=== PATIENT | female | born 1940 | race Caucasian/White ===

== ENCOUNTER 2020-05-12 11:46 | Outpatient (REF) | payer MEDICARE, SELFPAY ==
[2020-05-12 13:37] LABS: Anion Gap 13 (12-20); Blood Urea Nitrogen 23 mg/dL (9-16); Calcium 8.8 mg/dL (8.4-10.2); Carbon Dioxide 34 mmol/L (22-29); Chloride 100 mmol/L (96-108); Estimated Glomerular Filt Rate 30; Glucose Random 100 mg/dL (60-115); Potassium 3.9 mmol/l (3.3-5.1); Sodium 143 mmol/L (135-145)
== END 2020-05-12 11:47 | disposition home or self-care (01) ==
LOC: HO.LDS 11:46
PROVIDERS: Visit Provider Physician Assistant
DX: I50.9 Heart failure, unspecified (principal)
CPT/HCPCS: 80048

== ENCOUNTER 2020-07-01 09:36 | Outpatient (REF) | payer MEDICARE, SELFPAY | END 2020-07-01 09:37 | disposition home or self-care (01) | LOC: HO.LAB 09:36 | PROVIDERS: Visit Provider Internal Medicine | DX: Z20.828 Contact with and (suspected) exposure to other viral communicable diseases (principal) | CPT/HCPCS: 36415; C9803; U0003 ==

== ENCOUNTER 2021-01-21 11:11 | Emergency (ER) | payer MEDICARE, SELFPAY ==
--- NOTE | ~2021-01-21 | XR_ITS ---
EXAMINATION: XR TIBIA AND FIBULA, RIGHT CLINICAL INFORMATION: Pain COMPARISON: None TECHNIQUE: AP and lateral views of the right tibia and fibula were obtained. FINDINGS: There is large amount of edema seen about the right lower extremity. No acute fracture or dislocation is evident. There appears to be some deformity from previous distal fibular fracture. 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 Calcaneal spurs sites insertion of plantar and Achilles tendons noted. XR/XR tibia fibula RT 2V IMPRESSION: No acute fracture or dislocation of the right tibia or fibula. Degenerative change of the right knee. Deformity from old healed distal right fibular fracture.
--- NOTE | ~2021-01-21 | US_ITS ---
EXAMINATION: US VENOUS ULTRASOUND WITH DOPPLER LOWER EXTREMITY, RIGHT CLINICAL INFORMATION: Swelling COMPARISON: July 17, 2017 TECHNIQUE: Ultrasound of the deep veins is performed from the hip to the calf with compression sonography and color and pulse Doppler assessment. Spectral analysis with color-flow imaging is performed. FINDINGS: There is normal venous compression and respiratory variation and augmented flow. The visualized common femoral vein, superficial femoral vein, profunda femoral vein, popliteal vein, and the trifurcation region shows no evidence of deep venous thrombosis. There is no significant popliteal fossa cyst. No popliteal artery aneurysm. If the patient's symptoms persist, followup ultrasound in 5 days 7 days might be of value to exclude proximal propagation from a non-visualized calf vein. US/US venous duplex LE RT IMPRESSION: No acute DVT demonstrated in the right lower extremity.
[2021-01-21 11:55] VITALS: BP 103/56; PULSE 70; RESP 18; TEMP 36.6; O2SAT 96; BMI 32.9
[2021-01-21 13:31] LABS: MANUAL DIFF FLAG NO
[2021-01-21 13:33] LABS: Basophils Percent Auto 0.8 % (0-2); Eosinophils Absolute Auto 0.5 X10*3/uL (0.0-0.4); Eosinophils Percent Auto 10.4 % (0-4); Hematocrit 38.7 % (37-47); Hemoglobin 12.1 g/dl (12.0-16.0); Imm Gran Abs Auto 0.01 X10*3/uL (0.00-0.03); Imm Gran Pct Auto 0.2 % (0.0-0.4); Lymphocytes Absolute Auto 1.5 X10*3/uL (1.2-4.9); Lymphocytes Percent Auto 29.7 % (20-40); Mean Corpuscular HGB Conc 31.3 g/dl (31.0-35.0); Mean Corpuscular Hemoglobin 29.4 pg (27.0-33.0); Mean Corpuscular Volume 93.9 fL (80-98); Mean Platelet Volume 10.4 fL (9.4-12.3); Monocytes Absolute Auto 0.5 X10*3/uL (0.1-1.2); Monocytes Percent Auto 9.8 % (2-11); Neutrophils Absolute Auto 2.5 X10*3/uL (2.0-8.3); Neutrophils Percent Auto 49.1 % (45-73); Platelet Count 221 X10*3/uL (160-400); Red Blood Count 4.12 X10*6/uL (4.20-5.50); Red Cell Distribution Width 13.7 % (11.0-16.0)
[2021-01-21 13:48] LABS: Lactic Acid 0.9 mmol/L (0.5-2.0)
[2021-01-21 14:01] LABS: Alanine Aminotransferase < 6 U/L (0-31); Albumin Level 3.7 g/dL (3.5-5.0); Alkaline Phosphatase 79 U/L (39-117); Anion Gap 14 (12-20); Aspartate Amino Transferase 17 U/L (5-31); Bilirubin Total 0.7 mg/dL (0.0-1.0); Blood Urea Nitrogen 21 mg/dL (9-16); Carbon Dioxide 30 mmol/L (22-29); Chloride 101 mmol/L (96-108); Estimated Glomerular Filt Rate 30; Glucose Random 100 mg/dL (60-115); Potassium 3.8 mmol/L (3.3-5.1); Sodium 141 mmol/L (135-145)
--- NOTE | 2021-01-21 15:03 | ED.SKABFB ---
HPI - Skin/Abscess/Foreign Bdy General Chief complaint: Skin/Abscess/Foreign Body Stated complaint: leg wound Time Seen by Provider: 01/21/21 12:16 Source: patient Mode of arrival: ambulatory Limitations: no limitations History of Present Illness HPI narrative: Pleasant 80-year-old female speaks some Setswana son who is a caregiver speaks full in late she has past medical history that is significant for hypertension, asthma, atrial fibrillation chronically rate control/anticoagulant on Coumadin, history of palpitations, arthritis, heart failure, hypothyroidism who presents today with complaint of right lower extremity swelling with rash around the distal ferreira area. According to the son she has always had vascular issues she has had some rash to the chin in fact in both lower extremities the right 1 has become worse with slight oozing and foul smell. Denies any fever or chills. MD complaint: rash Onset (ago): day(s) Tetanus up to date: yes Location: RLE Severity: moderate Pain Consistency: constant Relieving factors: none Exacerbating factors: none Context: none Associated symptoms: denies other symptoms Treatments prior to arrival: none Related Data Previous Rx's Medication Instructions Recorded doxycycline monohydrate 100 mg 100 mg PO BID 10 Days #20 cap 01/21/21 capsule mupirocin 2 % topical ointment 1 appl TOPICAL BID #22 g 01/21/21 Allergies Allergy/AdvReac Type Severity Reaction Status Date / Time lisinopril [LISINOPRIL] Allergy Unknown UNKNOWN Unverified 03/12/20 15:21 simvastatin [SIMVASTATIN] Allergy Unknown UNKNOWN Unverified 03/12/20 15:21 Review of Systems Review of Systems: Constitutional: No Weight loss, No Fever, No Chills, No Night Sweats, No Fatigue, No Malaise ENT/Mouth: No Hearing loss, No Ear Pain, No Nasal Congestion, No Sinus Pain, No Hoarseness, No sore throat, No Rhinorrhea, No Swallowing Difficulty Eyes: No Eye Pain, No Swelling, No Redness, No Foreign Body, No Discharge, No Vision Changes Cardiovascular: No Chest Pain, No SOB, No Dyspnea on Exertion, No Orthopnea, No Edema, No Palpitations Respiratory: No Cough, No Sputum, No Wheezing, No Smoke Exposure, No Dyspnea Gastrointestinal: No Nausea, No Vomiting, No Diarrhea, No Constipation, No abdominal Pain, No Hematochezia, No Melena Genitourinary: no irregular bleeding, No Dysuria, No Urinary Frequency, No Hematuria, No Urinary Incontinence, No Urgency, No Flank Pain, No Urinary Flow Changes, No Hesitancy Musculoskeletal: No joint pain, No Myalgias, No Joint Swelling Skin: No Skin Lesions, No rash, as noted per HPI Neuro: No Weakness, No Numbness, No Paresthesias, No Loss of Consciousness, No Dizziness, No Headache Psych: No Social Issues Heme/Lymph: No Bruising, No Bleeding,No Lymphadenopathy Endocrine: No Polyuria, No Polydipsia, No Temperature Intolerance [facility] Past Medical History Medical History (Updated 01/21/21 @ 15:57 by Antonino Shannon NP) Afib Asthma CHF (congestive heart failure) HTN (hypertension) Hypothyroid Surgical History (Updated 01/21/21 @ 11:58 by Forrest Cuba) S/P hip replacement Social History Social History Alcohol intake: never Smoked in Last 30 Days: No Use of substances other than those prescribed or required for medical reasons: No Advance Directives: No Advance Directives Information Provided: No Physical Exam Vital Signs: Vital Signs: Last Vital Signs Temp 97.8 F 01/21/21 11:55 Pulse 70 01/21/21 11:55 Resp 18 01/21/21 11:55 BP 103/56 L 01/21/21 11:55 Pulse Ox 96 01/21/21 11:55 Body Mass Index 32.9 Const: General: cooperative and healthy appearing; No acute distress or intoxicated appearing Nutritional Appearance: average body habitus Orientation/consciousness: patient oriented x3 HENMT: Head: Yes normal to inspection Ears: hearing grossly normal bilaterally Eyes: General: appearance normal, both eyes and all related structures Visual Ernandez: normal visual ernandez by confrontation Neck: Neck: Yes normal visual inspection, No positive Brudzinski's sign, No positive Kernig's sign and No tender Thyroid: Thyroid normal Chest: Chest palpation & inspection: normal inspection of the chest Resp: Effort & Inspection: normal respiratory effort Cardio: Jugular venous distension: no JVD GI: Inspection: Yes normal to inspection Palpation (GI): Soft to palpation Percussion: Yes normal to percussion Auscultation: normal bowel sounds : General: Yes no CVA tenderness Back/Spine/Pelvis: Back: no CVA tenderness Skin: Other: General skin exam: no rashes or lesions noted Neuro: General: patient oriented x3 Extrem: General: Yes normal to inspection Course Course Course Narrative: Labs overall reassuring, very minimal erythematous changes around the wound margin, ultrasound negative for acute DVT. X-ray without evidence of osteo. Will start on p.o. antibiotics as well as topical, dressing and follow-up with wound care/PCP. Comfortable plan. Stable for discharge. MDM - Skin/Abscess/Foreign Bdy Differential Diagnosis Differential diagnosis: Likely abscess of skin or subcutaneous tissue, viral exanthem, urticaria, allergic reaction to drug, cellulitis, impetigo and contact dermatitis Medical Records Attestation: I reviewed the patient's medical records. Lab Data Attestation: I reviewed the patient's lab results. Result diagrams: 01/21/21 13:24 01/21/21 13:24 Labs: Lab Results 01/21/21 01/21/21 01/21/21 Range/Units 13:24 13:24 13:24 WBC 5.0 (4.8-10.8) X10*3/uL RBC 4.12 L (4.20-5.50) X10*6/uL Hgb 12.1 (12.0-16.0) g/dl Hct 38.7 (37-47) % MCV 93.9 (80-98) fL MCH 29.4 (27.0-33.0) pg MCHC 31.3 (31.0-35.0) g/dl RDW 13.7 (11.0-16.0) % Plt Count 221 (160-400) X10*3/uL MPV 10.4 (9.4-12.3) fL Immature Gran % (Auto) 0.2 (0.0-0.4) % Neut % (Auto) 49.1 (45-73) % Lymph % (Auto) 29.7 (20-40) % Preble % (Auto) 9.8 (2-11) % Eos % (Auto) 10.4 H (0-4) % Baso % (Auto) 0.8 (0-2) % Lymph # (Auto) 1.5 (1.2-4.9) X10*3/uL Preble # (Auto) 0.5 (0.1-1.2) X10*3/uL Eos # (Auto) 0.5 H (0.0-0.4) X10*3/uL Baso # (Auto) 0.0 (0.0-0.2) X10*3/uL Abs Immat Gran (auto) 0.01 (0.00-0.03) X10*3/uL Absolute Neuts (auto) 2.5 (2.0-8.3) X10*3/uL Absolute Nucleated RBC 0.000 (0.0-0.012) X10*3/uL Nucleated RBC % (auto) 0.0 (0.0-0.2) /100WBC Sodium 141 (135-145) mmol/L Potassium 3.8 (3.3-5.1) mmol/L Chloride 101 (96-108) mmol/L Carbon Dioxide 30 H (22-29) mmol/L Anion Gap 14 (12-20) BUN 21 H (9-16) mg/dL Creatinine 1.65 H (0.5-1.4) mg/dL Estim Creat Clear Calc 28.0 Estimated GFR 30 Random Glucose 100 (60-115) mg/dL Lactic Acid 0.9 (0.5-2.0) mmol/L Calcium 9.0 (8.4-10.2) mg/dL Total Bilirubin 0.7 (0.0-1.0) mg/dL AST 17 (5-31) U/L ALT < 6 (0-31) U/L Alkaline Phosphatase 79 (39-117) U/L Total Protein 8.0 (6.5-8.0) g/dL Albumin 3.7 (3.5-5.0) g/dL Imaging Data Right lower extremity ultrasound: My impression: Adriana Roldan??80??F??1940 ? Allergy/Adv: lisinopril, simvastatin Close ER Physician Documentation 01/21/21 15:03 Tibia/Fibula X-Ray 01/21/21 14:46 Venous Duplex 01/21/21 12:46 Launch?Image [address] [address] Ultrasound Report Signed Patient: Adriana Roldan MR#: [id number] : 1940 Acct:[id number] Age/Sex: 80 / F ADM Date: 01/21/21 Loc: .ED Attending Dr: Ordering Physician: Antonino Shannon NP Date of Service: 01/21/21 Procedure(s): US venous duplex LE RT Accession Number(s): [id number] cc: Antonino Shannon HEAD START COORDINATOR~ EXAMINATION:? US VENOUS ULTRASOUND WITH DOPPLER LOWER EXTREMITY, RIGHT CLINICAL INFORMATION:? Swelling COMPARISON:? July 17, 2017 TECHNIQUE: Ultrasound of the deep veins is performed from the hip to the calf with compression sonography and color and pulse Doppler assessment. Spectral analysis with color-flow imaging is performed. FINDINGS: There is normal venous compression and respiratory variation and augmented flow. The visualized common femoral vein, superficial femoral vein, profunda femoral vein, popliteal vein, and the trifurcation region shows no evidence of deep venous thrombosis. ? There is no significant popliteal fossa cyst. No popliteal artery aneurysm. If the patient's symptoms persist, followup ultrasound in 5 days 7 days might be of value to exclude proximal propagation from a non-visualized calf vein. US/US venous duplex LE RT IMPRESSION: No acute DVT demonstrated in the right lower extremity. Dictated By: CAITLIN PURCELL MD Signed By: <Electronically signed by CAITLIN PURCELL MD in OV> 01/21/21 1444 DD/ 1246 TD/TT:? Adjunct Physical Education Instructor: [employer] Radiologist's impression: [place] [id number] Ultrasound Report Signed Patient: Adriana Roldan MR#: [id number] : 1940 Acct:[id number] Age/Sex: 80 / F ADM Date: 01/21/21 Loc: .ED Attending Dr: Ordering Physician: Antonino Shannon NP Date of Service: 01/21/21 Procedure(s): US venous duplex LE RT Accession Number(s): [id number] cc: Antonino Shannon HEAD START COORDINATOR~ EXAMINATION:? US VENOUS ULTRASOUND WITH DOPPLER LOWER EXTREMITY, RIGHT CLINICAL INFORMATION:? Swelling COMPARISON:? July 17, 2017 TECHNIQUE: Ultrasound of the deep veins is performed from the hip to the calf with compression sonography and color and pulse Doppler assessment. Spectral analysis with color-flow imaging is performed. FINDINGS: There is normal venous compression and respiratory variation and augmented flow. The visualized common femoral vein, superficial femoral vein, profunda femoral vein, popliteal vein, and the trifurcation region shows no evidence of deep venous thrombosis. ? There is no significant popliteal fossa cyst. No popliteal artery aneurysm. If the patient's symptoms persist, followup ultrasound in 5 days 7 days might be of value to exclude proximal propagation from a non-visualized calf vein. US/US venous duplex LE RT IMPRESSION: No acute DVT demonstrated in the right lower extremity. Dictated By: CAITLIN PURCELL MD Signed By: <Electronically signed by CAITLIN PURCELL MD in OV> 01/21/21 1444 DD/ 1246 TD/TT:? Adjunct Physical Education Instructor: SK Tib fib x-ray: Radiologist's impression: Adriana Roldan??80??F??1940 ? Allergy/Adv: lisinopril, simvastatin Close ER Physician Documentation 01/21/21 15:03 Tibia/Fibula X-Ray 01/21/21 14:46 Venous Duplex 01/21/21 12:46 Launch?Image [address] [address] XRay Report Signed Patient: Adriana Roldan MR#: [id number] : 1940 Acct:[id number] Age/Sex: 80 / F ADM Date: 01/21/21 Loc: .ED Attending Dr: Ordering Physician: Antonino Shannon NP Date of Service: 01/21/21 Procedure(s): XR tibia fibula RT 2V Accession Number(s): [id number] cc: Antonino Shannon NP~ EXAMINATION: XR TIBIA AND FIBULA, RIGHT CLINICAL INFORMATION: Pain? COMPARISON: None? TECHNIQUE: AP and lateral views of the right tibia and fibula were obtained. FINDINGS: There is large amount of edema seen about the right lower extremity. No acute fracture or dislocation is evident. There appears to be some deformity from previous distal fibular fracture. 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 Calcaneal spurs sites insertion of plantar and Achilles tendons noted.? XR/XR tibia fibula RT 2V IMPRESSION: No acute fracture or dislocation of the right tibia or fibula. ? Degenerative change of the right knee. ? Deformity from old healed distal right fibular fracture. ? Dictated By: CAITLIN PURCELL MD Signed By: <Electronically signed by CAITLIN PURCELL MD in OV> 01/21/21 1507 DD/ 1446 TD/TT:? Adjunct Physical Education Instructor: SK Discharge Plan Discharge Clinical Impression: Cellulitis, Acute stasis dermatitis Patient Disposition: Home, Self-Care Instructions: Cellulitis (ED), Stasis Dermatitis (ED) Additional Instructions: Rest, elevate Compress with Parminder wrap Take her medication as prescribed Follow-up with primary care Follow-up with wound care as instructed Return if any concerns or worsening symptoms Thank you Prescriptions: New mupirocin 2 % ointment 1 appl topical BID Qty: 22 RF: 1 doxycycline monohydrate 100 mg capsule 100 mg PO BID 10 Days Qty: 20 RF: 0 Referrals: Janice Cortes MD [Primary Care Provider] - 2 days ED Physician,Generic [Physician] - 2 days [facility] [address] [place] [phone]) Interventions: ED Discharge Assessment Last Done: 01/21/21 16:10 Discharge Date/Time: 01/21/21 16:19
== END 2021-01-21 16:19 | disposition home or self-care (01) ==
PROVIDERS: Nurse Practitioner Primary Care; Emergency Provider Emergency Medicine; PCP Internal Medicine
DX: L03.115 Cellulitis of right lower limb (principal); R60.0 Localized edema; I87.2 Venous insufficiency (chronic) (peripheral); M79.604 Pain in right leg; Z79.899 Other long term (current) drug therapy
CPT/HCPCS: 36415; 73590; 80053; 83605; 85025; 87040; 93971; 99284

== ENCOUNTER 2021-02-04 10:21 | Emergency (ER) | payer MEDICARE, SELFPAY ==
[2021-02-04 11:10] VITALS: BP 116/53; PULSE 81; RESP 16; TEMP 36.5; O2SAT 97; BMI 32.1
--- NOTE | 2021-02-04 11:41 | ED.WOUNDLAC ---
HPI - Wound/Laceration General Chief Complaint: Wound/Laceration Stated Complaint: wound check Time Seen by Provider: 02/04/21 11:22 Source: patient and family Mode of arrival: wheelchair Limitations: no limitations History of Present Illness HPI narrative: 80-year-old female with a past medical history of hypertension, asthma, AFib chronically rate controlled on Coumadin, arthritis, congestive heart failure, hypothyroidism here with complaints of right lower extremity swelling with drainage of foul odor. Of note patient was seen here January 21 and diagnosed with cellulitis of the right lower extremity. She was started on doxycycline. She was instructed to follow-up with wound care. Patient tells me she completed her course of antibiotics. She has an appointment next Monday with wound care center. She is having worsening rash, increasing drainage and foul odor and more pain in the site. Also associated with some chills. No fever. No cough or shortness of breath. On January 21 patient had an ultrasound which is negative for DVT. She also had x-ray which showed no acute finding Related Data Home Medications Medication Instructions Recorded Confirmed albuterol sulfate 2.5 mg INHALATION QID PRN 02/04/21 02/04/21 albuterol sulfate 90 mcg/actuation 1 puff INHALATION Q4H PRN 02/04/21 02/04/21 aerosol inhaler calcium carbonate 600 mg (1,500 1 tab PO BID 02/04/21 02/04/21 mg)-vitamin D3 400 unit tablet cholecalciferol (vitamin D3) 50 50 mcg PO DAILY 02/04/21 02/04/21 mcg (2,000 unit) capsule (Vitamin D3) diltiazem HCl 120 mg capsule,24 120 mg PO BID 02/04/21 02/04/21 hr,extended release ferrous sulfate 325 mg (65 mg 325 mg PO DAILY 02/04/21 02/04/21 iron) tablet (FeroSul) fluticasone 500 mcg-salmeterol 50 1 puff INHALATION BID 02/04/21 02/04/21 mcg/dose blistr powdr for inhalation (Wixela Inhub) furosemide 80 mg tablet 80 mg PO DAILY 02/04/21 02/04/21 levothyroxine 50 mcg tablet 50 mcg PO DAILY 02/04/21 02/04/21 loratadine 10 mg tablet 10 mg PO DAILY 02/04/21 02/04/21 midodrine 5 mg tablet 5 mg PO TID 02/04/21 02/04/21 montelukast 10 mg tablet 10 mg PO DAILY 02/04/21 02/04/21 omalizumab 150 mg subcutaneous mg SUBCUT Q2W 02/04/21 solution (Xolair) omeprazole 20 mg capsule,delayed 20 mg PO DAILY 02/04/21 02/04/21 release potassium chloride 10 mEq 10 meq PO BID 02/04/21 02/04/21 tablet,extended release warfarin 2.5 mg tablet 5 mg PO DAILY 02/04/21 02/04/21 Previous Rx's Medication Instructions Recorded mupirocin 2 % topical ointment 1 appl TOPICAL BID #22 g 01/21/21 clotrimazole 1 % topical cream 1 appl TOPICAL DAILY #30 g 02/04/21 doxycycline monohydrate 100 mg 100 mg PO BID #20 cap 02/04/21 capsule mupirocin 2 % topical ointment 1 appl TOPICAL DAILY #15 g 02/04/21 Allergies Allergy/AdvReac Type Severity Reaction Status Date / Time lisinopril [LISINOPRIL] Allergy Unknown UNKNOWN Verified 02/04/21 11:18 simvastatin [SIMVASTATIN] Allergy Unknown UNKNOWN Verified 02/04/21 11:18 Review of Systems Review of Systems: Yes all other systems are reviewed and are negative Constitutional: Constitutional: Reports no additional constitutional complaints, Denies body ache(s), Denies chills, Denies fever(s), Denies headache(s) and Denies weakness Eyes: Eyes: Reports no additional eye complaints and Denies change in vision ENT: Reports system reviewed and no additional complaints, except as documented, Denies dizziness, Denies headache(s), Denies nasal congestion, Denies nasal discharge and Denies neck pain Cardiovascular: Cardiovascular: Reports no additional cardiovascular complaints, Denies chest pain, Denies leg edema and Denies dyspnea Respiratory: Respiratory: Reports no additional respiratory complaints, Denies cough and Denies dyspnea Gastrointestinal: Gastrointestinal: Reports no additional gastrointestinal complaints, Denies abdominal pain, Denies diarrhea, Denies nausea and Denies vomiting Genitourinary: Genitourinary: Reports no additional female genitourinary complaints and Denies urinary incontinence Musculoskeletal: Musculoskeletal: Reports no additional musculoskeletal complaints, Denies back pain, Denies arthralgias, Denies joint swelling, Denies neck pain, Denies numbness and Denies tingling Integumentary/Breasts: Skin/Breast: Reports system reviewed and no additional complaints, except as docu, Reports swelling, Reports erythema, Reports rash and Reports wounds Neurologic: Reports system reviewed and no additional complaints, except as documented, Denies Abnormal speech present, Denies dizziness, Denies headache(s), Denies numbness, Denies tingling and Denies weakness [facility] Past Medical History Attestation statement: The following information was validated with the patient. Source: old records reviewed and nursing notes reviewed Medical History Afib Asthma CHF (congestive heart failure) HTN (hypertension) Hypothyroid Surgical History S/P hip replacement Social History Social History Alcohol intake: never Patient Tobacco Use Status: Never used Tobacco Physical Exam Vital Signs: Vital Signs: Last Vital Signs Temp 97.9 F 02/04/21 12:05 Pulse 84 02/04/21 12:05 Resp 16 02/04/21 12:05 BP 106/53 L 02/04/21 12:05 Pulse Ox 97 02/04/21 12:05 Body Mass Index 32.1 Const: General: cooperative, healthy appearing, comfortable and no acute distress Orientation/consciousness: patient oriented x3 Limitations: no limitations HENMT: Head: Yes normal to inspection Ears: hearing grossly normal bilaterally General nose exam: Normal external nose present Face and sinus: Yes normal facial exam Mouth: Normal oral and palatal mucosa present Throat: Yes posterior oropharynx normal Eyes: General: appearance normal, both eyes and all related structures Pupils: Equal, round and reactive pupils present Neck: Neck: Yes normal visual inspection Chest: Chest palpation & inspection: normal inspection of the chest Resp: Effort & Inspection: normal respiratory effort Auscultation: clear to auscultation bilaterally Cardio: Rate: regular rate Rhythm: regular rhythm Peripheral pulses: Peripheral pulses 2+ throughout GI: Inspection: Yes normal to inspection Palpation (GI): Soft to palpation and nontender Auscultation: normal bowel sounds Back/Spine/Pelvis: Thoracic/Lumbar Spine: thoracic and lumbar spine normal to inspection Skin: General skin exam: no rashes or lesions noted Neuro: General: patient oriented x3, no focal motor deficits and normal sensation to monofilament Cranial nerves: Yes Equal, round and reactive pupils present Cognition (Neuro): normal cognition Speech: No Abnormal speech present Gait exam (Neuro): Normal gait present Motor exam (neuro): 5/5 motor strength present throughout Extrem: Other: Warmth, swelling, tenderness extending above the wound, drainage which is serous, foul odor. Palpable distal pulses noted. Patient able to flex and extend the foot with no difficulty. General: Yes normal to inspection Course Course Course Narrative: 80-year-old female here with complaints of right lower extremity swelling, redness, pain, increased drainage and odor despite completing a course of doxycycline several days ago. Has upcoming appointment with wound care center on Monday. Exam is consistent with a right lower extremity cellulitis. Patient also has what looks like chronic venous stasis. Will check labs. At this time infection is suspected. Antibiotics ordered. Patient will likely need admission 1330-labs are unremarkable. The patient is afebrile. However, clinically the cellulitis does appear worsened in the right lower extremity. Will discuss with medicine if admission is warranted. 1340-discussed with Dr. Nieto. Does not feel like admission is warranted at this time. Recommended re-starting antibiotics, treating for presumed tinea in addition. Therefore, will restart patient on oral antibiotics. Recommended a one-to-one mixture of clotrimazole and mupirocin topical to the affected area with a nonstick dressing and a wrap daily. Site should also be cleansed daily with normal saline. Patient is cared for at home by her sons. Will have home care nurse come in to assist with dressing changes. Case management is aware. 1430-reviewed worrisome signs and symptoms of when to return to the emergency department with family. Comfortable discharge home. MDM - Wound/Laceration MDM Narrative Medical decision making narrative: cellulitis Medical Records Attestation: I reviewed the patient's medical records. Lab Data Attestation: I reviewed the patient's lab results. Result diagrams: 02/04/21 11:57 02/04/21 11:57 Labs: Lab Results 02/04/21 02/04/21 02/04/21 Range/Units 11:57 11:57 11:57 WBC 5.3 (4.8-10.8) X10*3/uL RBC 3.99 L (4.20-5.50) X10*6/uL Hgb 11.6 L (12.0-16.0) g/dl Hct 37.4 (37-47) % MCV 93.7 (80-98) fL MCH 29.1 (27.0-33.0) pg MCHC 31.0 (31.0-35.0) g/dl RDW 13.1 (11.0-16.0) % Plt Count 228 (160-400) X10*3/uL MPV 10.5 (9.4-12.3) fL Immature Gran % (Auto) 0.2 (0.0-0.4) % Neut % (Auto) 59.3 (45-73) % Lymph % (Auto) 22.4 (20-40) % [place] % (Auto) 10.7 (2-11) % Eos % (Auto) 6.6 H (0-4) % Baso % (Auto) 0.8 (0-2) % Lymph # (Auto) 1.2 (1.2-4.9) X10*3/uL [place] # (Auto) 0.6 (0.1-1.2) X10*3/uL Eos # (Auto) 0.4 (0.0-0.4) X10*3/uL Baso # (Auto) 0.0 (0.0-0.2) X10*3/uL Abs Immat Gran (auto) 0.01 (0.00-0.03) X10*3/uL Absolute Neuts (auto) 3.2 (2.0-8.3) X10*3/uL Absolute Nucleated RBC 0.000 (0.0-0.012) X10*3/uL Nucleated RBC % (auto) 0.0 (0.0-0.2) /100WBC PT 44.5 H (9.9-13.0) SEC INR 3.8 H (0.9-1.1) Sodium 138 (135-145) mmol/L Potassium 3.3 (3.3-5.1) mmol/L Chloride 101 (96-108) mmol/L Carbon Dioxide 30 H (22-29) mmol/L Anion Gap 10 L (12-20) BUN 25 H (9-16) mg/dL Creatinine 1.75 H (0.5-1.4) mg/dL Estim Creat Clear Calc 26.0 Estimated GFR 28 Random Glucose 111 (60-115) mg/dL Lactic Acid (0.5-2.0) mmol/L Calcium 8.6 (8.4-10.2) mg/dL Magnesium 1.9 (1.6-2.6) mg/dL Total Bilirubin 0.6 (0.0-1.0) mg/dL Direct Bilirubin 0.3 (0.0-0.5) mg/dL AST 14 (5-31) U/L ALT 7 (0-31) U/L Alkaline Phosphatase 80 (39-117) U/L B-Natriuretic Peptide (<100) pg/mL Total Protein 7.4 (6.5-8.0) g/dL Albumin 3.3 L (3.5-5.0) g/dL COVID-19 (DAMARIS) (Negative) COVID-19 Clin Com 02/04/21 02/04/21 02/04/21 Range/Units 11:57 11:57 13:10 WBC (4.8-10.8) X10*3/uL RBC (4.20-5.50) X10*6/uL Hgb (12.0-16.0) g/dl Hct (37-47) % MCV (80-98) fL MCH (27.0-33.0) pg MCHC (31.0-35.0) g/dl RDW (11.0-16.0) % Plt Count (160-400) X10*3/uL MPV (9.4-12.3) fL Immature Gran % (Auto) (0.0-0.4) % Neut % (Auto) (45-73) % Lymph % (Auto) (20-40) % [place] % (Auto) (2-11) % Eos % (Auto) (0-4) % Baso % (Auto) (0-2) % Lymph # (Auto) (1.2-4.9) X10*3/uL [place] # (Auto) (0.1-1.2) X10*3/uL Eos # (Auto) (0.0-0.4) X10*3/uL Baso # (Auto) (0.0-0.2) X10*3/uL Abs Immat Gran (auto) (0.00-0.03) X10*3/uL Absolute Neuts (auto) (2.0-8.3) X10*3/uL Absolute Nucleated RBC (0.0-0.012) X10*3/uL Nucleated RBC % (auto) (0.0-0.2) /100WBC PT (9.9-13.0) SEC INR (0.9-1.1) Sodium (135-145) mmol/L Potassium (3.3-5.1) mmol/L Chloride (96-108) mmol/L Carbon Dioxide (22-29) mmol/L Anion Gap (12-20) BUN (9-16) mg/dL Creatinine (0.5-1.4) mg/dL Estim Creat Clear Calc Estimated GFR Random Glucose (60-115) mg/dL Lactic Acid 1.4 (0.5-2.0) mmol/L Calcium (8.4-10.2) mg/dL Magnesium (1.6-2.6) mg/dL Total Bilirubin (0.0-1.0) mg/dL Direct Bilirubin (0.0-0.5) mg/dL AST (5-31) U/L ALT (0-31) U/L Alkaline Phosphatase (39-117) U/L B-Natriuretic Peptide 104 H (<100) pg/mL Total Protein (6.5-8.0) g/dL Albumin (3.5-5.0) g/dL COVID-19 ([facility]AMARIS) Negative (Negative) COVID-19 Clin Com See Note Discharge Plan Discharge Clinical Impression: Cellulitis, Chronic venous stasis, Tinea pedis Patient Disposition: Home, Self-Care Instructions: Athlete's Foot (ED), Cellulitis (ED), Venous Insufficiency (DC) Additional Instructions: You were seen by the medicine team and an admission was not warranted We are re-starting antibiotics. Take these with food. A home care nurse will be coming to the home to help with your dressing changes. Elevation of the legs, [place] wrap for comfort Change dressings daily (1:1 clotrimazole/mupirocin mixture) with non stick dressings and wraps. Keep appointment with wound care Monday morning. Prescriptions: New doxycycline monohydrate 100 mg capsule 100 mg PO BID Qty: 20 RF: 0 mupirocin 2 % ointment 1 appl topical DAILY Qty: 15 RF: 0 clotrimazole 1 % cream 1 appl topical DAILY Qty: 30 RF: 0 No Action mupirocin 2 % ointment 1 appl topical BID Qty: 22 RF: 1 albuterol sulfate 2.5 mg /3 mL (0.083 %) solution for nebulization 2.5 mg inhalation QID PRN (Reason: Wheezing) RF: 0 midodrine 5 mg tablet 5 mg PO TID RF: 0 warfarin 2.5 mg tablet 5 mg PO DAILY RF: 0 potassium chloride 10 mEq tablet extended release 10 meq PO BID RF: 0 furosemide 80 mg tablet 80 mg PO DAILY RF: 0 diltiazem HCl 120 mg capsule,extended release 24 hr 120 mg PO BID RF: 0 levothyroxine 50 mcg tablet 50 mcg PO DAILY RF: 0 ferrous sulfate [FeroSul] 325 mg (65 mg iron) tablet 325 mg PO DAILY RF: 0 fluticasone propion-salmeterol [Wixela Inhub] 500-50 mcg/dose blister with device 1 puff inhalation BID RF: 0 omeprazole 20 mg capsule,delayed release(DR/EC) 20 mg PO DAILY RF: 0 montelukast 10 mg tablet 10 mg PO DAILY RF: 0 loratadine 10 mg tablet 10 mg PO DAILY RF: 0 Xolair 150 mg recon soln subcut Q2W RF: 0 calcium carbonate-vitamin D3 600 mg(1,500mg) -400 unit tablet 1 tab PO BID RF: 0 cholecalciferol (vitamin D3) [Vitamin D3] 50 mcg (2,000 unit) capsule 50 mcg PO DAILY RF: 0 albuterol sulfate 90 mcg/actuation HFA aerosol inhaler 1 puff inhalation Q4H PRN (Reason: Wheezing) RF: 0 Referrals: Laxmi Gutierrez MD [Primary Care Provider] - 2 days (as needed) Interventions: ED Discharge Assessment Last Done: 02/04/21 14:13 Discharge Date/Time: 02/04/21 14:13 Print Language: Albanian
[2021-02-04 12:05] VITALS: BP 106/53; PULSE 84; RESP 16; TEMP 36.6; O2SAT 97
[2021-02-04 12:17] LABS: MANUAL DIFF FLAG NO
[2021-02-04 12:18] LABS: Basophils Percent Auto 0.8 % (0-2); Eosinophils Absolute Auto 0.4 X10*3/uL (0.0-0.4); Eosinophils Percent Auto 6.6 % (0-4); Hematocrit 37.4 % (37-47); Hemoglobin 11.6 g/dl (12.0-16.0); Imm Gran Abs Auto 0.01 X10*3/uL (0.00-0.03); Imm Gran Pct Auto 0.2 % (0.0-0.4); Lymphocytes Absolute Auto 1.2 X10*3/uL (1.2-4.9); Lymphocytes Percent Auto 22.4 % (20-40); Mean Corpuscular Hemoglobin 29.1 pg (27.0-33.0); Mean Corpuscular Volume 93.7 fL (80-98); Mean Platelet Volume 10.5 fL (9.4-12.3); Monocytes Absolute Auto 0.6 X10*3/uL (0.1-1.2); Monocytes Percent Auto 10.7 % (2-11); Neutrophils Absolute Auto 3.2 X10*3/uL (2.0-8.3); Neutrophils Percent Auto 59.3 % (45-73); Platelet Count 228 X10*3/uL (160-400); Red Blood Count 3.99 X10*6/uL (4.20-5.50); Red Cell Distribution Width 13.1 % (11.0-16.0); White Blood Count 5.3 X10*3/uL (4.8-10.8)
--- NOTE | 2021-02-04 12:18 | PHA.MEDREC ---
Pharmacy Consult ? Medication Reconciliation Pharmacy has completed the medication reconciliation. Patient and her son aren't positive about most of her medication because they are in the [facility] from [facility]. I verified medication in the bubbles with [facility]. Patient was able to report she takes 5mg of Warfarin every day (2.5mg 2 tablets). She was unsure about which inhaler she should be using as it was recently changed. She states she is due for Xolair tomorrow. Called Dr. Salgado's office to verify the inhaler and Adviar was the one most recently refilled. Patient did not take any medication this AM. Laura Ibrahim, PharmD
[2021-02-04 12:23] LABS: INTERNATIONAL NORM RATIO 3.8 (0.9-1.1); Prothrombin Time 44.5 SEC (9.9-13.0)
[2021-02-04] MEDS: Morphine Sulfate 2 MG/ML CARTRIDGE IVPUSH (12:31)
[2021-02-04] MEDS: Piperacillin Sodium/Tazobactam 3.375 GM in 0.9 % Sodium Chloride 50 ML IV (12:32)
[2021-02-04 12:34] LABS: Lactic Acid 1.4 mmol/L (0.5-2.0)
[2021-02-04 12:41] LABS: Alanine Aminotransferase 7 U/L (0-31); Albumin Level 3.3 g/dL (3.5-5.0); Alkaline Phosphatase 80 U/L (39-117); Anion Gap 10 (12-20); Aspartate Amino Transferase 14 U/L (5-31); Bilirubin Direct 0.3 mg/dL (0.0-0.5); Bilirubin Total 0.6 mg/dL (0.0-1.0); Blood Urea Nitrogen 25 mg/dL (9-16); Calcium 8.6 mg/dL (8.4-10.2); Carbon Dioxide 30 mmol/L (22-29); Chloride 101 mmol/L (96-108); Estimated Glomerular Filt Rate 28; Glucose Random 111 mg/dL (60-115); Magnesium 1.9 mg/dL (1.6-2.6); Potassium 3.3 mmol/L (3.3-5.1); Sodium 138 mmol/L (135-145); Total Protein 7.4 g/dL (6.5-8.0)
[2021-02-04 12:46] LABS: B Type Natriuretic Peptide 104 pg/mL (<100)
[2021-02-04 13:39] LABS: COVID-19 Test Negative (Negative); IDNOW Serial# 08D9AD1C
--- NOTE | 2021-02-04 16:13 | MHC.CM.ED ---
Received case management consult from Alisha FOLEY. Patient has an appointment for wound care clinic on Monday. Alisha is requesting home services for help with wound assessment until then. Patient is active with [facility]. Per Angelica at [facility], [place] [facility] can be referred out. Referral made to [facility]. They are unable to see patient before Monday. Referral made to [facility] and [facility]. Neither agency can accept patient.Referral broadcasted in [employer] to see who can accept patient. Continue to monitor for d/c needs.
== END 2021-02-04 14:13 | disposition home or self-care (01) ==
PROVIDERS: Nurse Practitioner Family; Emergency Provider Emergency Medicine; PCP Internal Medicine
DX: L03.115 Cellulitis of right lower limb (principal); B35.3 Tinea pedis; I87.8 Other specified disorders of veins; M79.661 Pain in right lower leg; Z20.822 Contact with and (suspected) exposure to COVID-19; R68.83 Chills (without fever); I10 Essential (primary) hypertension; I48.20 Chronic atrial fibrillation, unspecified; Z79.01 Long term (current) use of anticoagulants
CPT/HCPCS: 36415; 80048; 80076; 83605; 83735; 83880; 85025; 85610; 87040; 87077; 87147; 87186; 87205; 87635; 96365; 96375; 99284; J2270; J2543

== ENCOUNTER 2021-02-05 14:29 | Inpatient (IN) | payer MEDICARE, SELFPAY ==
--- NOTE | 2021-02-05 | ECG_ITS ---
Test Reason : EDMA Blood Pressure : / mmHG Vent. Rate : 081 BPM Atrial Rate : 069 BPM P-R Int : 000 ms QRS Dur : 098 ms QT Int : 386 ms P-R-T Axes : 000 -06 -15 degrees QTc Int : 448 ms Atrial fibrillation Abnormal ECG When compared with ECG of 09-AUG-2019 13:53, No significant change was found Referred By: Rosmery Nieto Electronically Signed By:ELADIO FIGUEROA
--- NOTE | ~2021-02-05 | CT_ITS ---
EXAMINATION: CT ABDOMEN AND PELVIS WITHOUT CONTRAST CLINICAL INFORMATION: Gram-negative bacteremia. COMPARISON: Renal ultrasound 01/30/2017, CT pelvis 06/29/2015, CT abdomen pelvis 08/25/2011 TECHNIQUE: Multidetector volumetric imaging was performed from the superior aspect of the liver through the pubic symphysis. Sagittal and coronal reformatted images were obtained on the technologist's workstation. This CT examination was performed using dose optimization techniques as appropriate, variously including the following: *Automated exposure control *Adjustment of mA and/or kV according to patient size (this includes techniques or standardized protocols for targeted exams where dose is matched to indication/reason for exam; i.e. extremities or head) *Use of iterative reconstruction technique DLP: 699 mGy-cm FINDINGS: LUNG BASES: The visualized lung bases are unremarkable. LIVER, GALLBLADDER, AND BILIARY TREE: The liver is normal in size, shape, and attenuation. No focal hepatic lesion or biliary ductal dilatation is present. The gallbladder is under distended. There is a gallstone seen. No evidence of gallbladder wall thickening or pericholecystic fluid. PANCREAS: Unremarkable. SPLEEN: Unremarkable. ADRENAL GLANDS: Unremarkable. KIDNEYS AND URETERS: Patient motion significantly limits assessment of the right kidney. There does appear to be right renal atrophy, progressed over time. Right extrarenal pelvis versus parapelvic cysts, unchanged. The left kidney is unremarkable. BLADDER: The bladder is poorly assessed due to streak artifact from the right hip arthroplasty. No definite abnormalities. GASTROINTESTINAL TRACT: No evidence of bowel obstruction. Small and large bowel loops unremarkable. Moderate stool burden throughout the colon. ABDOMINAL WALL: No significant abdominal wall hernia. Diastases rectus. LYMPH NODES: Enlarged right inguinal lymph node measuring 1.2 x 2.1 cm. Scattered retroperitoneal lymph nodes without adenopathy by CT criteria. VASCULAR: Atherosclerosis abdominal aorta without evidence of aneurysm. 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 PELVIC VISCERA: Uterus and left adnexa unremarkable. Stable calcifications in the right adnexa, may relate to a right ovarian lesion such as teratoma. The stability over time is reassuring. OSSEOUS STRUCTURES: Right hip arthroplasty. Heterotopic ossification left hip. Degenerative changes of the spine. No acute or suspicious osseous abnormality. CT/CT abdomen pelvis wo con IMPRESSION: 1. No evidence of acute abnormality within the abdomen or pelvis. 2. Cholelithiasis without CT evidence of acute cholecystitis. 3. Multiple other chronic and nonacute findings as above.
[2021-02-05 14:43] VITALS: BP 108/54; PULSE 78; RESP 18; TEMP 36.6; O2SAT 99; BMI 32.1
--- NOTE | 2021-02-05 15:03 | ED_ITS ---
HPI - Recheck/Abnormal Lab/Rx General Chief Complaint: Recheck/Abnormal Lab/Rx Stated Complaint: infection Time Seen by Provider: 02/05/21 14:55 Source: patient and family Mode of arrival: wheelchair Limitations: no limitations History of Present Illness HPI narrative: 80-year-old female with a past medical history of hypertension, asthma, AFib chronically rate controlled on Coumadin, arthritis, congestive heart failure, hypothyroidism here with complaints of abnormal labs. Of note patient seen here January 21 and diagnosed with cellulitis the right lower extremity. She was given a course of doxycycline and sent home. She has a follow-up appointment on February 08 with the wound care center. She returned yesterday February 04 for continued swelling and redness to the right lower extremity. She was presented to the medicine team for admission but admission was declined. She was sent home on doxycycline, clotrimazole topical, mupirocin topical. She returns today for abnormal blood cultures (1 gram negative rods, 2nd gram positive cocci). Patient has reported increasing pain and swelling and redness the leg. She does not report any fever. She is mainly Mozambican speaking but has her son at the bedside to interpret. Related Data Home Medications Medication Instructions Recorded Confirmed albuterol sulfate 2.5 mg INHALATION QID PRN 02/04/21 02/05/21 albuterol sulfate 90 mcg/actuation 1 puff INHALATION Q4H PRN 02/04/21 02/05/21 aerosol inhaler calcium carbonate 600 mg (1,500 1 tab PO BID 02/04/21 02/05/21 mg)-vitamin D3 400 unit tablet cholecalciferol (vitamin D3) 50 50 mcg PO DAILY 02/04/21 02/05/21 mcg (2,000 unit) capsule (Vitamin D3) diltiazem HCl 120 mg capsule,24 120 mg PO BID 02/04/21 02/05/21 hr,extended release ferrous sulfate 325 mg (65 mg 325 mg PO DAILY 02/04/21 02/05/21 iron) tablet (FeroSul) fluticasone 500 mcg-salmeterol 50 1 puff INHALATION BID 02/04/21 02/05/21 mcg/dose blistr powdr for inhalation (Wixela Inhub) furosemide 80 mg tablet 80 mg PO DAILY 02/04/21 02/05/21 levothyroxine 50 mcg tablet 50 mcg PO DAILY 02/04/21 02/05/21 loratadine 10 mg tablet 10 mg PO DAILY 02/04/21 02/05/21 midodrine 5 mg tablet 5 mg PO TID 02/04/21 02/05/21 montelukast 10 mg tablet 10 mg PO DAILY 02/04/21 02/05/21 omeprazole 20 mg capsule,delayed 20 mg PO DAILY 02/04/21 02/05/21 release potassium chloride 10 mEq 10 meq PO BID 02/04/21 02/05/21 tablet,extended release warfarin 2.5 mg tablet 5 mg PO DAILY 02/04/21 02/05/21 Previous Rx's Medication Instructions Recorded clotrimazole 1 % topical cream 1 appl TOPICAL DAILY #30 g 02/04/21 doxycycline monohydrate 100 mg 100 mg PO BID #20 cap 02/04/21 capsule mupirocin 2 % topical ointment 1 appl TOPICAL DAILY #15 g 02/04/21 Allergies Allergy/AdvReac Type Severity Reaction Status Date / Time lisinopril [LISINOPRIL] Allergy Unknown UNKNOWN Verified 02/04/21 11:18 simvastatin [SIMVASTATIN] Allergy Unknown UNKNOWN Verified 02/04/21 11:18 Review of Systems Review of Systems: Yes all other systems are reviewed and are negative Constitutional: Constitutional: Reports no additional constitutional complaints, Denies body ache(s), Denies chills, Denies fever(s), Denies headache(s) and Denies weakness Eyes: Eyes: Reports no additional eye complaints and Denies change in vision ENT: Reports system reviewed and no additional complaints, except as documented, Denies dizziness, Denies headache(s), Denies nasal congestion, Denies nasal discharge and Denies neck pain Cardiovascular: Cardiovascular: Reports no additional cardiovascular complaints, Denies chest pain, Denies leg edema and Denies dyspnea Respiratory: Respiratory: Reports no additional respiratory complaints, Denies cough and Denies dyspnea Gastrointestinal: Gastrointestinal: Reports no additional gastrointestinal complaints, Denies abdominal pain, Denies diarrhea, Denies nausea and Denies vomiting Genitourinary: Genitourinary: Reports no additional female genitourinary complaints and Denies urinary incontinence Musculoskeletal: Musculoskeletal: Reports no additional musculoskeletal complaints, Denies back pain, Denies arthralgias, Denies joint swelling, Denies neck pain, Denies numbness and Denies tingling Integumentary/Breasts: Skin/Breast: Reports system reviewed and no additional complaints, except as docu, Reports swelling, Reports erythema and Reports rash Neurologic: Reports system reviewed and no additional complaints, except as documented, Denies Abnormal speech present, Denies dizziness, Denies headache(s), Denies numbness, Denies tingling and Denies weakness PMFSH Past Medical History Attestation statement: The following information was validated with the patient. Source: old records reviewed and nursing notes reviewed Medical History Afib Asthma CHF (congestive heart failure) HTN (hypertension) Hypothyroid Surgical History S/P hip replacement Social History Social History Alcohol intake: never Patient Tobacco Use Status: Never used Tobacco Advance Directives: No Advance Directives Information Provided: No service: No Current occupational status: disabled Physical Exam Vital Signs: Vital Signs: Last Vital Signs Temp 97.4 F 02/05/21 20:29 Pulse 98 02/05/21 20:29 Resp 18 02/05/21 20:29 BP 111/64 02/05/21 20:29 Pulse Ox 97 02/05/21 20:29 Body Mass Index 32.1 Const: General: cooperative, healthy appearing, comfortable and no acute distress Orientation/consciousness: patient oriented x3 Limitations: no limitations HENMT: Head: Yes normal to inspection Ears: hearing grossly normal bilaterally General nose exam: Normal external nose present Face and sinus: Yes normal facial exam Mouth: Normal oral and palatal mucosa present Throat: Yes posterior oropharynx normal Eyes: General: appearance normal, both eyes and all related structures Pupils: Equal, round and reactive pupils present Neck: Neck: Yes normal visual inspection Chest: Chest palpation & inspection: normal inspection of the chest Resp: Effort & Inspection: normal respiratory effort Auscultation: clear to auscultation bilaterally Cardio: Rate: regular rate Rhythm: regular rhythm Peripheral pulses: Peripheral pulses 2+ throughout GI: Inspection: Yes normal to inspection Palpation (GI): Soft to palpation and nontender Auscultation: normal bowel sounds Back/Spine/Pelvis: Thoracic/Lumbar Spine: thoracic and lumbar spine normal to inspection Skin: General skin exam: no rashes or lesions noted Neuro: General: patient oriented x3, no focal motor deficits and normal sensation to monofilament Cranial nerves: Yes Equal, round and reactive pupils present Cognition (Neuro): normal cognition Speech: No Abnormal speech present Gait exam (Neuro): Normal gait present Motor exam (neuro): 5/5 motor strength present throughout Extrem: Other: Tenderness to palpation. Palpable distal pulses noted. Patient is able to flex and extend the foot with no difficulty General: Yes normal to inspection Course Course Course Narrative: 80-year-old female currently being treated for right lower extremity cellulitis with doxycycline returns today for positive blood cultures which were drawn yesterday. Two of 2 are positive (1 gram positive cocci, 1 gram negative rods). At this time infection is suspected. Blood cultures, lactic acid, repeat labs ordered. Antibiotics ordered. Discussed patient with Dr. Nieto who accepted patient. MDM - Recheck/Abnormal Lab/Rx Medical Records Attestation: I reviewed the patient's medical records. Lab Data Attestation: I reviewed the patient's lab results. Result diagrams: 02/05/21 15:15 02/05/21 15:15 Labs: Lab Results 02/05/21 02/05/21 02/05/21 Range/Units 15:15 15:15 15:15 WBC 4.2 L (4.8-10.8) X10*3/uL RBC 3.89 L (4.20-5.50) X10*6/uL Hgb 11.3 L (12.0-16.0) g/dl Hct 36.4 L (37-47) % MCV 93.6 (80-98) fL MCH 29.0 (27.0-33.0) pg MCHC 31.0 (31.0-35.0) g/dl RDW 13.2 (11.0-16.0) % Plt Count 238 (160-400) X10*3/uL MPV 10.3 (9.4-12.3) fL Immature Gran % (Auto) 0.2 (0.0-0.4) % Neut % (Auto) 47.8 (45-73) % Lymph % (Auto) 29.3 (20-40) % [place] % (Auto) 11.6 H (2-11) % Eos % (Auto) 10.2 H (0-4) % Baso % (Auto) 0.9 (0-2) % Lymph # (Auto) 1.2 (1.2-4.9) X10*3/uL [place] # (Auto) 0.5 (0.1-1.2) X10*3/uL Eos # (Auto) 0.4 (0.0-0.4) X10*3/uL Baso # (Auto) 0.0 (0.0-0.2) X10*3/uL Abs Immat Gran (auto) 0.01 (0.00-0.03) X10*3/uL Absolute Neuts (auto) 2.0 (2.0-8.3) X10*3/uL Absolute Nucleated RBC 0.000 (0.0-0.012) X10*3/uL Nucleated RBC % (auto) 0.0 (0.0-0.2) /100WBC PT 47.2 H (9.9-13.0) SEC INR 4.0 H (0.9-1.1) Sodium 138 (135-145) mmol/L Potassium 3.8 (3.3-5.1) mmol/L Chloride 102 (96-108) mmol/L Carbon Dioxide 28 (22-29) mmol/L Anion Gap 12 (12-20) BUN 25 H (9-16) mg/dL Creatinine 1.77 H (0.5-1.4) mg/dL Estim Creat Clear Calc 25.7 Estimated GFR 28 Random Glucose 96 (60-115) mg/dL Lactic Acid (0.5-2.0) mmol/L Calcium 8.2 L (8.4-10.2) mg/dL Total Bilirubin 0.5 (0.0-1.0) mg/dL Direct Bilirubin 0.3 (0.0-0.5) mg/dL AST 13 (5-31) U/L ALT 7 (0-31) U/L Alkaline Phosphatase 78 (39-117) U/L Total Protein 7.3 (6.5-8.0) g/dL Albumin 3.2 L (3.5-5.0) g/dL COVID-19 (DAMARIS) (Negative) COVID-19 Clin Com 02/05/21 02/05/21 Range/Units 15:15 15:15 WBC (4.8-10.8) X10*3/uL RBC (4.20-5.50) X10*6/uL Hgb (12.0-16.0) g/dl Hct (37-47) % MCV (80-98) fL MCH (27.0-33.0) pg MCHC (31.0-35.0) g/dl RDW (11.0-16.0) % Plt Count (160-400) X10*3/uL MPV (9.4-12.3) fL Immature Gran % (Auto) (0.0-0.4) % Neut % (Auto) (45-73) % Lymph % (Auto) (20-40) % [place] % (Auto) (2-11) % Eos % (Auto) (0-4) % Baso % (Auto) (0-2) % Lymph # (Auto) (1.2-4.9) X10*3/uL [place] # (Auto) (0.1-1.2) X10*3/uL Eos # (Auto) (0.0-0.4) X10*3/uL Baso # (Auto) (0.0-0.2) X10*3/uL Abs Immat Gran (auto) (0.00-0.03) X10*3/uL Absolute Neuts (auto) (2.0-8.3) X10*3/uL Absolute Nucleated RBC (0.0-0.012) X10*3/uL Nucleated RBC % (auto) (0.0-0.2) /100WBC PT (9.9-13.0) SEC INR (0.9-1.1) Sodium (135-145) mmol/L Potassium (3.3-5.1) mmol/L Chloride (96-108) mmol/L Carbon Dioxide (22-29) mmol/L Anion Gap (12-20) BUN (9-16) mg/dL Creatinine (0.5-1.4) mg/dL Estim Creat Clear Calc Estimated GFR Random Glucose (60-115) mg/dL Lactic Acid 1.2 (0.5-2.0) mmol/L Calcium (8.4-10.2) mg/dL Total Bilirubin (0.0-1.0) mg/dL Direct Bilirubin (0.0-0.5) mg/dL AST (5-31) U/L ALT (0-31) U/L Alkaline Phosphatase (39-117) U/L Total Protein (6.5-8.0) g/dL Albumin (3.5-5.0) g/dL COVID-19 (DAMARIS) Negative (Negative) COVID-19 Clin Com See Note Discharge Plan Discharge Clinical Impression: Positive blood culture, Cellulitis Patient Disposition: Admitted As Inpatient Interventions: Admission Worksheet (ED) Last Done: 02/05/21 20:07 Discharge Date/Time: 02/05/21 20:07
--- NOTE | 2021-02-05 15:09 | PHA.MEDREC ---
Pharmacy Consult ? Medication Reconciliation Pharmacy has completed the medication reconciliation.
[2021-02-05] MEDS: cefTRIAXone sodium 1 GM in 0.9 % Sodium Chloride 50 ML IV (15:15)
[2021-02-05 15:22] LABS: MANUAL DIFF FLAG NO
[2021-02-05 15:24] LABS: Basophils Percent Auto 0.9 % (0-2); Eosinophils Absolute Auto 0.4 X10*3/uL (0.0-0.4); Eosinophils Percent Auto 10.2 % (0-4); Hematocrit 36.4 % (37-47); Hemoglobin 11.3 g/dl (12.0-16.0); Imm Gran Abs Auto 0.01 X10*3/uL (0.00-0.03); Imm Gran Pct Auto 0.2 % (0.0-0.4); Lymphocytes Absolute Auto 1.2 X10*3/uL (1.2-4.9); Lymphocytes Percent Auto 29.3 % (20-40); Mean Corpuscular Volume 93.6 fL (80-98); Mean Platelet Volume 10.3 fL (9.4-12.3); Monocytes Absolute Auto 0.5 X10*3/uL (0.1-1.2); Monocytes Percent Auto 11.6 % (2-11); Neutrophils Percent Auto 47.8 % (45-73); Platelet Count 238 X10*3/uL (160-400); Red Blood Count 3.89 X10*6/uL (4.20-5.50); Red Cell Distribution Width 13.2 % (11.0-16.0); White Blood Count 4.2 X10*3/uL (4.8-10.8)
[2021-02-05 15:32] LABS: Prothrombin Time 47.2 SEC (9.9-13.0)
[2021-02-05 15:40] LABS: COVID-19 Test Negative (Negative)
[2021-02-05 15:41] LABS: Lactic Acid 1.2 mmol/L (0.5-2.0)
--- NOTE | 2021-02-05 15:45 | P.HPHOSP_ITS ---
History of Present Illness Date of Service: 02/05/21 Chief Complaint: Right leg swelling and pain, positive blood cultures An 80 years old lady with PMH of COPD, AFib, CHF, hypothyroidism among others who presented hospital with a complaint right lower extremities swelling and pain for the last couple of weeks. The patient with to the emergency 2 times before today for right lower extremity cellulitis discharged on oral antibiotic yesterday. She had blood cultures drawn the emergency which each bottle is libra wing different species. Called back today to come the emergency for the positive result. The patient denies any fever, chills, nausea or vomiting or change in bowel habit. She reports small amount of drainage with bad others on occasions. Admitted for further evaluation and treatment. Review of Systems Review of Systems: No fever, chills or weakness No chest pain, palpitation No shortness of breath or coughing No abdominal pain, nausea or vomiting No urinary symptoms Increased swelling and tenderness in the right lower extremity PMFSH Medical History Afib Asthma CHF (congestive heart failure) HTN (hypertension) Hypothyroid Surgical History S/P hip replacement Social History Alcohol intake: never Patient Tobacco Use Status: Never used Tobacco Advance Directives: No Advance Directives Information Provided: No Meds Allergies Allergy/AdvReac Type Severity Reaction Status Date / Time lisinopril [LISINOPRIL] Allergy Unknown UNKNOWN Verified 02/04/21 11:18 simvastatin [SIMVASTATIN] Allergy Unknown UNKNOWN Verified 02/04/21 11:18 Active Medications: Current Medications Generic Name Dose Route Start Last Admin Trade Name Freq PRN Reason Stop Dose Admin Acetaminophen 650 mg 02/05/21 15:38 Acetaminophen 325 Mg Tablet PO Q6H PRN Pain, Mild (Pain Scale 1-3) Albuterol Sulfate 2.5 mg 02/05/21 15:36 Albuterol Sulfate (0.083%) 2.5 Mg/3 Ml Vial.Neb INHALE QID PRN Wheezing Albuterol Sulfate 1 puff 02/05/21 15:36 Albuterol Sulfate 90 Mcg 8 Gm Inhaler INHALE Q4H PRN Wheezing Diltiazem HCl 120 mg 02/05/21 21:00 Diltiazem Hcl Cd 120 Mg Cap.Er.Deg PO BID [facility] Protocol Furosemide 80 mg 02/06/21 09:00 Furosemide 40 Mg Tablet PO DAILY [facility] Protocol Vancomycin HCl 1,250 mg/ 250 mls @ 166.667 mls/hr 02/05/21 15:30 Sodium Chloride IV 02/05/21 16:59 ONCE ONE Ceftriaxone Sodium 1 gm/ 50 mls @ 100 mls/hr 02/06/21 14:00 Sodium Chloride IV Q24H [facility] Levothyroxine Sodium 50 mcg 02/06/21 09:00 Levothyroxine Sodium 50 Mcg Tablet PO DAILY [facility] Loratadine 10 mg 02/06/21 09:00 Loratadine 10 Mg Tablet PO DAILY [facility] Midodrine 5 mg 02/05/21 21:00 Midodrine Hcl 5 Mg Tablet PO TID [facility] Montelukast Sodium 10 mg 02/06/21 09:00 Montelukast Sodium 10 Mg Tablet PO DAILY [facility] Omeprazole 20 mg 02/06/21 09:00 Omeprazole 20 Mg Capsule.Dr PO DAILY [facility] Ondansetron HCl 4 mg 02/05/21 15:38 Ondansetron Hcl 4 Mg/2 Ml Vial IVPUSH Q8H PRN Nausea and Vomiting Pharmacy Consult 1 each 02/05/21 15:02 Consult Rx Vancomycin Dosing MISCELLANE DAILY PRN Consult order Pharmacy Consult 1 each 02/05/21 15:17 Consult Rx Perform Med Rec MISCELLANE ONCE PRN Consult order Pharmacy Consult 1 each 02/05/21 15:43 Consult Rx Vancomycin Dosing MISCELLANE DAILY PRN Consult order Potassium Chloride 10 meq 02/05/21 21:00 Potassium Chloride Er 10 Meq Capsule.Er PO BID [facility] Sodium Chloride 3 ml 02/05/21 16:00 0.9 % Sodium Chloride Flush 3 Ml Syringe IVFLUSH QSHIFT [facility] Vitamin D 50 mcg 02/06/21 09:00 Cholecalciferol (Vitamin D3) 25 Mcg Tablet PO DAILY [facility] Home Medications Medication Instructions Recorded Confirmed Last Taken Type albuterol sulfate 2.5 mg INHALATION QID PRN 02/04/21 02/05/21 Unknown History albuterol sulfate 90 mcg/actuation 1 puff INHALATION Q4H PRN 02/04/21 02/05/21 Unknown History aerosol inhaler calcium carbonate 600 mg (1,500 1 tab PO BID 02/04/21 02/05/21 02/03/21 History mg)-vitamin D3 400 unit tablet cholecalciferol (vitamin D3) 50 50 mcg PO DAILY 02/04/21 02/05/21 02/03/21 History mcg (2,000 unit) capsule (Vitamin D3) diltiazem HCl 120 mg capsule,24 120 mg PO BID 02/04/21 02/05/21 Unknown History hr,extended release ferrous sulfate 325 mg (65 mg 325 mg PO DAILY 02/04/21 02/05/21 02/03/21 History iron) tablet (FeroSul) fluticasone 500 mcg-salmeterol 50 1 puff INHALATION BID 02/04/21 02/05/21 02/03/21 History mcg/dose blistr powdr for inhalation (Wixela Inhub) furosemide 80 mg tablet 80 mg PO DAILY 02/04/21 02/05/21 02/03/21 History levothyroxine 50 mcg tablet 50 mcg PO DAILY 02/04/21 02/05/21 02/03/21 History loratadine 10 mg tablet 10 mg PO DAILY 02/04/21 02/05/21 02/03/21 History midodrine 5 mg tablet 5 mg PO TID 02/04/21 02/05/21 02/03/21 History montelukast 10 mg tablet 10 mg PO DAILY 02/04/21 02/05/21 02/03/21 History omeprazole 20 mg capsule,delayed 20 mg PO DAILY 02/04/21 02/05/21 02/03/21 History release potassium chloride 10 mEq 10 meq PO BID 02/04/21 02/05/21 02/03/21 History tablet,extended release warfarin 2.5 mg tablet 5 mg PO DAILY 02/04/21 02/05/21 02/03/21 History Physical Exam Vital Signs and Narrative: Vital Signs: Last Vital Signs Temp 97.9 F 02/05/21 14:43 Pulse 78 02/05/21 14:43 Resp 18 02/05/21 14:43 BP 108/54 L 02/05/21 14:43 Pulse Ox 99 02/05/21 14:43 Body Mass Index 32.1 Const: Other: Constitutional : Alert, oriented, not in distress Neck : Normal inspection, Supple Cardiovascular : irregular RRR, S1 S2, no lower extremity edema Respiratory : Good bilateral air entry, no crackles, wheezes or rhonchi Gastrointestinal: soft, lax, Normal bowel sounds, Non tender Skin : Warm, right lower extremity previous surgical ordonez with chronic skin changes and swelling in comparison to the left leg. No significant erythema noted but areas of tenderness and small amount of clear drainage. Neurological : Alert & oriented x3, No focal deficit Results Labs CBC and Chem 7: 02/05/21 15:15 02/05/21 15:15 Labs: Laboratory Results - last 24 hr 02/05/21 02/05/21 02/05/21 15:15 15:15 15:15 MCV 93.6 MCH 29.0 MCHC 31.0 RDW 13.2 Plt Count 238 MPV 10.3 Immature Gran % (Auto) 0.2 Neut % (Auto) 47.8 Lymph % (Auto) 29.3 [place] % (Auto) 11.6 H Eos % (Auto) 10.2 H Baso % (Auto) 0.9 Lymph # (Auto) 1.2 [place] # (Auto) 0.5 Eos # (Auto) 0.4 Baso # (Auto) 0.0 Abs Immat Gran (auto) 0.01 Absolute Neuts (auto) 2.0 Absolute Nucleated RBC 0.000 Nucleated RBC % (auto) 0.0 PT 47.2 H INR 4.0 H Lactic Acid 1.2 COVID-19 (DAMARIS) COVID-19 [employer] 02/05/21 15:15 MCV MCH MCHC RDW Plt Count MPV Immature Gran % (Auto) Neut % (Auto) Lymph % (Auto) [place] % (Auto) Eos % (Auto) Baso % (Auto) Lymph # (Auto) [place] # (Auto) Eos # (Auto) Baso # (Auto) Abs Immat Gran (auto) Absolute Neuts (auto) Absolute Nucleated RBC Nucleated RBC % (auto) PT INR Lactic Acid COVID-19 (DAMARIS) Negative COVID-19 [employer] See Note Assessment and Plan (1) Positive blood cultures: Status: Acute (2) Cellulitis: Status: Acute (3) Supratherapeutic INR: Status: Acute An 80 years old lady with PMH of COPD, AFib, CHF, hypothyroidism among others who presented hospital with a complaint right lower extremities swelling and pain for the last couple of weeks. Positive blood cultures Secondary to cellulitis RLE Repeat blood cultures Start broad-spectrum antibiotics of vancomycin and ceftriaxone Wound care Id consult Follow blood cultures. Supratherapeutic INR INR of 4 Hold warfarin and monitor INR on daily basis AFib Continue Cardizem Hold warfarin for now CHF Continue Lasix Monitor intake and output DVT PPX Warfarin Quality Stroke Does the patient have a stroke diagnosis?: No VTE Prior VTE?: No VTE Risk Level:: Medical - moderate - high VTE Device Contraindication: Treatment Not Indicated VTE Drug Contraindication: N/A - Med Ordered
[2021-02-05 15:48] LABS: Alanine Aminotransferase 7 U/L (0-31); Albumin Level 3.2 g/dL (3.5-5.0); Alkaline Phosphatase 78 U/L (39-117); Anion Gap 12 (12-20); Aspartate Amino Transferase 13 U/L (5-31); Bilirubin Direct 0.3 mg/dL (0.0-0.5); Bilirubin Total 0.5 mg/dL (0.0-1.0); Blood Urea Nitrogen 25 mg/dL (9-16); Calcium 8.2 mg/dL (8.4-10.2); Carbon Dioxide 28 mmol/L (22-29); Chloride 102 mmol/L (96-108); Creatinine Clr Calc Pharmacy 25.7; Estimated Glomerular Filt Rate 28; Glucose Random 96 mg/dL (60-115); Potassium 3.8 mmol/L (3.3-5.1); Sodium 138 mmol/L (135-145); Total Protein 7.3 g/dL (6.5-8.0)
[2021-02-05] MEDS: vancomycin HCL 1,250 MG in 0.9 % Sodium Chloride 250 ML 166.67 MG IV (15:50)
[2021-02-05] MEDS: Morphine Sulfate 4 MG/ML CARTRIDGE IVPUSH (15:53)
[2021-02-05] MEDS: 0.9 % Sodium Chloride Flush 3 ML SYRINGE IVFLUSH (16:25)
[2021-02-05 16:28] VITALS: PULSE 67; RESP 14
--- NOTE | 2021-02-05 17:15 | MHC.CM.PN ---
CM met with admitted patient and son/HCP Nicko Roberts ([phone]), with bed assignment pending and medical billing representative, as pt is Syriac speaking. IMM reviewed and signed. 02/05/21@0393. HCP is on file. Pt lives alone, uses a walker and a wheelchair, has handicapped bathroom and has [employer] TRA[employer] services through [employer] and [employer]. Pt is A&Ox3. Pt HUMAN RESOURCES TRAINER is her son, Janusz Roberts ([phone]). Pt and son tell CM that she has 28 hours/wk for HUMAN RESOURCES TRAINER services, but currently only has about 16 hours filled. They are currently looking for more, reliable help. Family also helps pt. SonNicko provides needed transportation. D/C plan is home with continued services. Pt does not want any STR. If PT is needed, pt would like it at home. Transportation home provided by family. CM to follow for d/c needs.
[2021-02-05 20:29] VITALS: BP 111/64; PULSE 98; RESP 18; TEMP 36.3; O2SAT 97
[2021-02-05] MEDS: dilTIAZem HCL CD 120 MG CAP.ER.DEG PO (21:35)
[2021-02-05] MEDS: Midodrine HCl 5 MG TABLET PO (21:35)
[2021-02-05 23:46] VITALS: BP 101/60; PULSE 97; RESP 16; TEMP 36.6; O2SAT 95
[2021-02-06] VITALS (7 sets, daily range): BP systolic 87–116; BP diastolic 51–78; PULSE 56–95; RESP 16–18; TEMP 35.8–36.4; O2SAT 94–96
[2021-02-06] MEDS: 0.9 % Sodium Chloride Flush 3 ML SYRINGE IVFLUSH ×4 (00:32→23:45)
[2021-02-06] MEDS: Acetaminophen 325 MG TABLET 650 MG PO ×3 (00:40→20:35)
[2021-02-06 06:46] LABS: Anion Gap 10 (12-20); Blood Urea Nitrogen 19 mg/dL (9-16); Calcium 7.8 mg/dL (8.4-10.2); Carbon Dioxide 29 mmol/L (22-29); Chloride 105 mmol/L (96-108); Creatinine Clr Calc Pharmacy 33.9; Estimated Glomerular Filt Rate 38; Glucose Random 83 mg/dL (60-115); Potassium 3.9 mmol/L (3.3-5.1); Sodium 140 mmol/L (135-145)
[2021-02-06 06:47] LABS: Hematocrit 33.1 % (37-47); Hemoglobin 10.3 g/dl (12.0-16.0); Mean Corpuscular HGB Conc 31.1 g/dl (31.0-35.0); Mean Corpuscular Hemoglobin 29.1 pg (27.0-33.0); Mean Corpuscular Volume 93.5 fL (80-98); Mean Platelet Volume 10.8 fL (9.4-12.3); Platelet Count 219 X10*3/uL (160-400); Red Blood Count 3.54 X10*6/uL (4.20-5.50); Red Cell Distribution Width 13.1 % (11.0-16.0); White Blood Count 4.7 X10*3/uL (4.8-10.8)
[2021-02-06] MEDS: Cholecalciferol (Vitamin D3) 25 MCG TABLET 50 MCG PO (10:32)
[2021-02-06] MEDS: Loratadine 10 MG TABLET PO (10:32)
[2021-02-06] MEDS: Levothyroxine Sodium 50 MCG TABLET PO (10:33)
[2021-02-06] MEDS: Omeprazole 20 MG CAPSULE.DR PO (10:33)
[2021-02-06] MEDS: Montelukast Sodium 10 MG TABLET PO (10:33)
[2021-02-06] MEDS: Midodrine HCl 5 MG TABLET PO ×3 (10:34→21:35)
--- NOTE | 2021-02-06 11:00 | HO.PM.IMPN ---
Subjective Subjective Date of Service: 02/06/21 Interval History: the patient was seen and evaluated this morning Laying in bed, feels comfortable Foot pain has improved, wrapped in Parminder Denies any fever, chills or shortness of breath No reported other overnight events. Review of Systems No fever, chills or weakness No chest pain, palpitation No shortness of breath or coughing No abdominal pain, nausea or vomiting No urinary symptoms Increased swelling and tenderness in the right lower extremity Physical Exam Vital Signs: Vital Signs: Last Vital Signs Temp 96.5 F L 02/06/21 08:00 Pulse 95 02/06/21 08:00 Resp 18 02/06/21 08:00 BP 100/57 L 02/06/21 08:00 Pulse Ox 94 02/06/21 08:00 Body Mass Index 32.1 Const: Other: Constitutional : Alert, oriented, not in distress Neck : Normal inspection, Supple Cardiovascular : irregular RRR, S1 S2, no lower extremity edema Respiratory : Good bilateral air entry, no crackles, wheezes or rhonchi Gastrointestinal: soft, lax, Normal bowel sounds, Non tender Skin : Warm, right lower extremity previous surgical ordonez with chronic skin changes and swelling in comparison to the left leg. No significant erythema noted but areas of tenderness and small amount of clear drainage. Covered with dressing Neurological : Alert & oriented x3, No focal deficit Objective Data Current Medications Generic Name Dose Route Start Last Admin Trade Name Freq PRN Reason Stop Dose Admin Acetaminophen 650 mg 02/05/21 15:38 02/06/21 07:56 Acetaminophen 325 Mg Tablet PO 650 mg Q6H PRN Administration Pain, Mild (Pain Scale 1-3) Albuterol Sulfate 2.5 mg 02/05/21 15:36 Albuterol Sulfate (0.083%) 2.5 Mg/3 Ml Vial.Neb INHALE QID PRN Wheezing Albuterol Sulfate 1 puff 02/05/21 15:36 Albuterol Sulfate 90 Mcg 8 Gm Inhaler INHALE Q4H PRN Wheezing Diltiazem HCl 120 mg 02/05/21 21:00 02/05/21 21:35 Diltiazem Hcl Cd 120 Mg Cap.Er.Deg PO 120 mg BID SEBASTIAN Administration Protocol Furosemide 80 mg 02/06/21 09:00 Furosemide 40 Mg Tablet PO DAILY SEBASTIAN Protocol Ceftriaxone Sodium 1 gm/ 50 mls @ 100 mls/hr 02/06/21 14:00 Sodium Chloride IV Q24H SEBASTIAN Levothyroxine Sodium 50 mcg 02/06/21 09:00 02/06/21 10:33 Levothyroxine Sodium 50 Mcg Tablet PO 50 mcg DAILY SEBASTIAN Administration Loratadine 10 mg 02/06/21 09:00 02/06/21 10:32 Loratadine 10 Mg Tablet PO 10 mg DAILY SEBASTIAN Administration Midodrine 5 mg 02/05/21 21:00 02/06/21 10:34 Midodrine Hcl 5 Mg Tablet PO 5 mg TID SEBASTIAN Administration Montelukast Sodium 10 mg 02/06/21 09:00 02/06/21 10:33 Montelukast Sodium 10 Mg Tablet PO 10 mg DAILY SEBASTIAN Administration Omeprazole 20 mg 02/06/21 09:00 02/06/21 10:33 Omeprazole 20 Mg Capsule.Dr PO 20 mg DAILY SEBASTIAN Administration Ondansetron HCl 4 mg 02/05/21 15:38 Ondansetron Hcl 4 Mg/2 Ml Vial IVPUSH Q8H PRN Nausea and Vomiting Pharmacy Consult 1 each 02/05/21 15:02 Consult Rx Vancomycin Dosing MISCELLANE DAILY PRN Consult order Pharmacy Consult 1 each 02/05/21 15:17 Consult Rx Perform Med Rec MISCELLANE ONCE PRN Consult order Pharmacy Consult 1 each 02/05/21 15:43 Consult Rx Vancomycin Dosing MISCELLANE DAILY PRN Consult order Potassium Chloride 10 meq 02/05/21 21:00 02/06/21 10:33 Potassium Chloride Er 10 Meq Capsule.Er PO 10 meq BID SEBASTIAN Administration Sodium Chloride 3 ml 02/05/21 16:00 02/06/21 07:56 0.9 % Sodium Chloride Flush 3 Ml Syringe IVFLUSH 3 ml QSHIFT [facility] Administration Vitamin D 50 mcg 02/06/21 09:00 02/06/21 10:32 Cholecalciferol (Vitamin D3) 25 Mcg Tablet PO 50 mcg DAILY SEBASTIAN Administration Labs CBC & Chem 7: 02/06/21 05:46 02/06/21 05:46 Labs: Laboratory Results - last 24 hr 02/05/21 02/05/21 02/05/21 15:15 15:15 15:15 MCV 93.6 MCH 29.0 MCHC 31.0 RDW 13.2 Plt Count 238 MPV 10.3 Immature Gran % (Auto) 0.2 Neut % (Auto) 47.8 Lymph % (Auto) 29.3 [place] % (Auto) 11.6 H Eos % (Auto) 10.2 H Baso % (Auto) 0.9 Lymph # (Auto) 1.2 [place] # (Auto) 0.5 Eos # (Auto) 0.4 Baso # (Auto) 0.0 Abs Immat Gran (auto) 0.01 Absolute Neuts (auto) 2.0 Absolute Nucleated RBC 0.000 Nucleated RBC % (auto) 0.0 PT 47.2 H INR 4.0 H Anion Gap 12 Estim Creat Clear Calc 25.7 Estimated GFR 28 Random Glucose 96 Lactic Acid Calcium 8.2 L Total Bilirubin 0.5 Direct Bilirubin 0.3 AST 13 ALT 7 Alkaline Phosphatase 78 Total Protein 7.3 Albumin 3.2 L COVID-19 (DAMARIS) COVID-19 Clin Com 02/05/21 02/05/21 02/06/21 15:15 15:15 05:46 MCV 93.5 MCH 29.1 MCHC 31.1 RDW 13.1 Plt Count 219 MPV 10.8 Immature Gran % (Auto) Neut % (Auto) Lymph % (Auto) [place] % (Auto) Eos % (Auto) Baso % (Auto) Lymph # (Auto) [place] # (Auto) Eos # (Auto) Baso # (Auto) Abs Immat Gran (auto) Absolute Neuts (auto) Absolute Nucleated RBC 0.000 Nucleated RBC % (auto) 0.0 PT INR Anion Gap Estim Creat Clear Calc Estimated GFR Random Glucose Lactic Acid 1.2 Calcium Total Bilirubin Direct Bilirubin AST ALT Alkaline Phosphatase Total Protein Albumin COVID-19 (DAMARIS) Negative COVID-19 Clin Com See Note 02/06/21 05:46 MCV MCH MCHC RDW Plt Count MPV Immature Gran % (Auto) Neut % (Auto) Lymph % (Auto) [place] % (Auto) Eos % (Auto) Baso % (Auto) Lymph # (Auto) [place] # (Auto) Eos # (Auto) Baso # (Auto) Abs Immat Gran (auto) Absolute Neuts (auto) Absolute Nucleated RBC Nucleated RBC % (auto) PT INR Anion Gap 10 L Estim Creat Clear Calc 33.9 Estimated GFR 38 Random Glucose 83 Lactic Acid Calcium 7.8 L Total Bilirubin Direct Bilirubin AST ALT Alkaline Phosphatase Total Protein Albumin COVID-19 (DAMARIS) COVID-19 Clin Com Assessment and Plan (1) Supratherapeutic INR: Status: Acute (2) Cellulitis: Status: Acute (3) Positive blood cultures: Status: Acute Assessment and Plan: An 80 years old lady with PMH of COPD, AFib, CHF, hypothyroidism among others who presented hospital with a complaint right lower extremities swelling and pain for the last couple of weeks. Positive blood cultures Secondary to cellulitis RLE Repeat blood cultures Start broad-spectrum antibiotics of vancomycin and ceftriaxone Wound care Pending Id consult Follow blood cultures. Supratherapeutic INR INR of 4 on admission Hold warfarin and monitor INR on daily basis AFib Continue Cardizem Hold warfarin for now CHF Continue Lasix Monitor intake and output DVT PPX Warfarin Quality Stroke Does the patient have a stroke diagnosis?: No VTE Prior VTE?: No VTE Risk Level:: Medical - moderate - high VTE Device Contraindication: Treatment Not Indicated VTE Drug Contraindication: N/A - Med Ordered
[2021-02-06] MEDS: Furosemide 40 MG TABLET 80 MG PO (13:22)
[2021-02-06] MEDS: dilTIAZem HCL CD 120 MG CAP.ER.DEG PO ×2 (13:22→20:31)
[2021-02-06] MEDS: cefTRIAXone sodium 1 GM in 0.9 % Sodium Chloride 50 ML IV (13:22)
--- NOTE | 2021-02-06 14:27 | W.PM.IDCN ---
History of Present Illness Data of Consult Service Date: 02/06/21 Requesting physician: Rosmery Nieto Primary Care Provider: Laxmi Gutierrez MD HPI Reason for consult: bacteremia She presents to hospital with two weeks increased redness and swelling RLE She has not had DVT. She has [employer]ICE,Afib and CHF She has no fever or chills She has gram negative and staph epi bacteremia Review of Systems Review of Systems: Yes all other systems are reviewed and are negative PMFSH Past Medical History Medical History Afib Asthma CHF (congestive heart failure) HTN (hypertension) Hypothyroid Surgical History Surgical History S/P hip replacement Social History Social History Household Members: None Housing: Apartment Do you presently have visiting nurse or other home services: Yes Alcohol intake: never Patient Tobacco Use Status: Never used Tobacco Use of substances other than those prescribed or required for medical reasons: No Currently Displaying Signs/Symptoms of Drug Intoxication Withdrawal: No Have you been hit, kicked, punched, or otherwise hurt by someone within the past year? If so, by whom?: No Do you feel safe in your current relationship?: No Current Relationship Is there a partner from a previous relationship who is making you feel unsafe now?: No Are you made to feel afraid or neglected: No Advance Directives: No Advance Directives Information Provided: No Do you have thoughts of harming others: None Do you have a plan to hurt others: No Plan Patient : No : No Poor oral hygiene: No service: No Current occupational status: disabled Meds Allergies Allergy/AdvReac Type Severity Reaction Status Date / Time lisinopril [LISINOPRIL] Allergy Unknown UNKNOWN Verified 02/05/21 21:56 simvastatin [SIMVASTATIN] Allergy Unknown UNKNOWN Verified 02/05/21 21:56 Active Medications: Current Medications Generic Name Dose Route Start Last Admin Trade Name Freq PRN Reason Stop Dose Admin Acetaminophen 650 mg 02/05/21 15:38 02/06/21 07:56 Acetaminophen 325 Mg Tablet PO 650 mg Q6H PRN Administration Pain, Mild (Pain Scale 1-3) Albuterol Sulfate 2.5 mg 02/05/21 15:36 Albuterol Sulfate (0.083%) 2.5 Mg/3 Ml Vial.Neb INHALE QID PRN Wheezing Albuterol Sulfate 1 puff 02/05/21 15:36 Albuterol Sulfate 90 Mcg 8 Gm Inhaler INHALE Q4H PRN Wheezing Diltiazem HCl 120 mg 02/05/21 21:00 02/06/21 13:22 Diltiazem Hcl Cd 120 Mg Cap.Er.Deg PO 120 mg BID SEBASTIAN Administration Protocol Furosemide 80 mg 02/06/21 09:00 02/06/21 13:22 Furosemide 40 Mg Tablet PO 80 mg DAILY SEBASTIAN Administration Protocol Ceftriaxone Sodium 1 gm/ 50 mls @ 100 mls/hr 02/06/21 14:00 02/06/21 13:53 Sodium Chloride IV Infused Q24H SEBASTIAN Infusion Levothyroxine Sodium 50 mcg 02/06/21 09:00 02/06/21 10:33 Levothyroxine Sodium 50 Mcg Tablet PO 50 mcg DAILY SEBASTIAN Administration Loratadine 10 mg 02/06/21 09:00 02/06/21 10:32 Loratadine 10 Mg Tablet PO 10 mg DAILY SEBASTIAN Administration Midodrine 5 mg 02/05/21 21:00 02/06/21 10:34 Midodrine Hcl 5 Mg Tablet PO 5 mg TID SEBASTIAN Administration Montelukast Sodium 10 mg 02/06/21 09:00 02/06/21 10:33 Montelukast Sodium 10 Mg Tablet PO 10 mg DAILY SEBASTIAN Administration Omeprazole 20 mg 02/06/21 09:00 02/06/21 10:33 Omeprazole 20 Mg Capsule.Dr PO 20 mg DAILY SEBASTIAN Administration Ondansetron HCl 4 mg 02/05/21 15:38 Ondansetron Hcl 4 Mg/2 Ml Vial IVPUSH Q8H PRN Nausea and Vomiting Pharmacy Consult 1 each 02/05/21 15:02 Consult Rx Vancomycin Dosing MISCELLANE DAILY PRN Consult order Pharmacy Consult 1 each 02/05/21 15:17 Consult Rx Perform Med Rec MISCELLANE ONCE PRN Consult order Pharmacy Consult 1 each 02/05/21 15:43 Consult Rx Vancomycin Dosing MISCELLANE DAILY PRN Consult order Potassium Chloride 10 meq 02/05/21 21:00 02/06/21 10:33 Potassium Chloride Er 10 Meq Capsule.Er PO 10 meq BID SEBASTIAN Administration Sodium Chloride 3 ml 02/05/21 16:00 02/06/21 07:56 0.9 % Sodium Chloride Flush 3 Ml Syringe IVFLUSH 3 ml QSHIFT SEBASTIAN Administration Vitamin D 50 mcg 02/06/21 09:00 02/06/21 10:32 Cholecalciferol (Vitamin D3) 25 Mcg Tablet PO 50 mcg DAILY SEBASTIAN Administration Home Medications Medication Instructions Recorded Confirmed Last Taken Type albuterol sulfate 2.5 mg INHALATION QID PRN 02/04/21 02/05/21 Unknown History albuterol sulfate 90 mcg/actuation 1 puff INHALATION Q4H PRN 02/04/21 02/05/21 Unknown History aerosol inhaler calcium carbonate 600 mg (1,500 1 tab PO BID 02/04/21 02/05/21 02/03/21 History mg)-vitamin D3 400 unit tablet cholecalciferol (vitamin D3) 50 50 mcg PO DAILY 02/04/21 02/05/21 02/03/21 History mcg (2,000 unit) capsule (Vitamin D3) diltiazem HCl 120 mg capsule,24 120 mg PO BID 02/04/21 02/05/21 Unknown History hr,extended release ferrous sulfate 325 mg (65 mg 325 mg PO DAILY 02/04/21 02/05/21 02/03/21 History iron) tablet (FeroSul) fluticasone 500 mcg-salmeterol 50 1 puff INHALATION BID 02/04/21 02/05/21 02/03/21 History mcg/dose blistr powdr for inhalation (Wixela Inhub) furosemide 80 mg tablet 80 mg PO DAILY 02/04/21 02/05/21 02/03/21 History levothyroxine 50 mcg tablet 50 mcg PO DAILY 02/04/21 02/05/21 02/03/21 History loratadine 10 mg tablet 10 mg PO DAILY 02/04/21 02/05/21 02/03/21 History midodrine 5 mg tablet 5 mg PO TID 02/04/21 02/05/21 02/03/21 History montelukast 10 mg tablet 10 mg PO DAILY 02/04/21 02/05/21 02/03/21 History omeprazole 20 mg capsule,delayed 20 mg PO DAILY 02/04/21 02/05/21 02/03/21 History release potassium chloride 10 mEq 10 meq PO BID 02/04/21 02/05/21 02/03/21 History tablet,extended release warfarin 2.5 mg tablet 5 mg PO DAILY 02/04/21 02/05/21 02/03/21 History Physical Exam Vital Signs: Vital Signs: Last Vital Signs Temp 96.5 F L 02/06/21 08:00 Pulse 78 02/06/21 12:15 Resp 18 02/06/21 08:00 BP 116/78 02/06/21 12:15 Pulse Ox 94 02/06/21 08:00 Body Mass Index 32.1 Const: General: cooperative HENMT: Head: Yes normal to inspection Mouth: Normal oral and palatal mucosa present Eyes: General: appearance normal, both eyes and all related structures Resp: Effort & Inspection: normal respiratory effort Cardio: Rate: regular rate Rhythm: regular rhythm GI: Palpation (GI): Soft to palpation and nontender Skin: General skin exam: no rashes or lesions noted Extrem: Other: swelling and erythema RLE no foot ulcers Results Labs CBC & Chem 7: 02/06/21 05:46 02/06/21 05:46 Labs: Short CBC 02/05/21 02/06/21 Range/Units 15:15 05:46 WBC 4.2 L 4.7 L (4.8-10.8) X10*3/uL Hgb 11.3 L 10.3 L (12.0-16.0) g/dl Hct 36.4 L 33.1 L (37-47) % Plt Count 238 219 (160-400) X10*3/uL BMP 02/05/21 02/06/21 15:15 05:46 Sodium 138 140 Potassium 3.8 3.9 Chloride 102 105 Carbon Dioxide 28 29 BUN 25 H 19 H Creatinine 1.77 H 1.34 Calcium 8.2 L 7.8 L Liver Function 02/05/21 Range/Units 15:15 Total Bilirubin 0.5 (0.0-1.0) mg/dL Direct Bilirubin 0.3 (0.0-0.5) mg/dL AST 13 (5-31) U/L ALT 7 (0-31) U/L Alkaline Phosphatase 78 (39-117) U/L Albumin 3.2 L (3.5-5.0) g/dL Assessment and Plan (1) Cellulitis: Status: Acute She has some erythema Gram positive blood looks like contaminant Gram negative except for Pseudomonas is unusual for cellulitis Continue Ceftriaxone Await cultures (2) Positive blood cultures: Status: Acute Gram positive bacteria in blood This looks like contaminant Await gram negative Would check urinalysis and urine cultures Consider CT scan abdomen and pelvis if gram negative enteric
[2021-02-06 16:41] LABS: Glucose Urine UA NEG (NEG); Leukocyte Esterase Urine NEG (NEG); Nitrite Urine NEG (NEG); Specific Gravity - Urine 1.015 (1.005-1.025); Urine Blood TRACE (NEG); Urine Ketones NEG (NEG); Urine Protein NEG (NEG-TRACE)
[2021-02-06 16:43] LABS: Appearance Urine CLEAR; Color Urine YELLOW
[2021-02-06 16:49] LABS: Squamous Epithelial Cell Urine 3+ /LPF; WBC Urine 0 /HPF (0-4)
[2021-02-07 06:50] LABS: Anion Gap 10 (12-20); Blood Urea Nitrogen 19 mg/dL (9-16); Calcium 8.3 mg/dL (8.4-10.2); Carbon Dioxide 29 mmol/L (22-29); Chloride 107 mmol/L (96-108); Creatinine Clr Calc Pharmacy 36.4; Estimated Glomerular Filt Rate 41; Glucose Random 86 mg/dL (60-115); Potassium 4.5 mmol/L (3.3-5.1); Sodium 141 mmol/L (135-145)
[2021-02-07 07:03] LABS: INTERNATIONAL NORM RATIO 2.4 (0.9-1.1); Prothrombin Time 27.4 SEC (9.9-13.0)
[2021-02-07 07:49] VITALS: BP 117/65; PULSE 110; RESP 19; TEMP 36.7; O2SAT 97
[2021-02-07 08:24] VITALS: BP 119/77
[2021-02-07] MEDS: Loratadine 10 MG TABLET PO (08:24)
[2021-02-07] MEDS: dilTIAZem HCL CD 120 MG CAP.ER.DEG PO ×2 (08:24→22:08)
[2021-02-07] MEDS: Montelukast Sodium 10 MG TABLET PO (08:24)
[2021-02-07] MEDS: Levothyroxine Sodium 50 MCG TABLET PO (08:24)
[2021-02-07] MEDS: Furosemide 40 MG TABLET 80 MG PO (08:24)
[2021-02-07] MEDS: Omeprazole 20 MG CAPSULE.DR PO (08:25)
[2021-02-07] MEDS: Midodrine HCl 5 MG TABLET PO ×3 (08:25→22:08)
[2021-02-07] MEDS: Cholecalciferol (Vitamin D3) 25 MCG TABLET 50 MCG PO (08:25)
[2021-02-07] MEDS: 0.9 % Sodium Chloride Flush 3 ML SYRINGE IVFLUSH ×3 (08:25→22:17)
[2021-02-07 11:38] VITALS: BP 100/54; PULSE 76; RESP 16; TEMP 36.2; O2SAT 98
--- NOTE | 2021-02-07 11:51 | HO.PM.IMPN ---
Subjective Subjective Date of Service: 02/07/21 Interval History: the patient was seen and evaluated this morning Laying in bed, feels comfortable Foot pain has improved Denies any fever, chills or shortness of breath No reported other overnight events. Review of Systems No fever, chills or weakness No chest pain, palpitation No shortness of breath or coughing No abdominal pain, nausea or vomiting No urinary symptoms Increased swelling and tenderness in the right lower extremity Physical Exam Vital Signs: Vital Signs: Last Vital Signs Temp 97.2 F 02/07/21 11:38 Pulse 76 02/07/21 11:38 Resp 16 02/07/21 11:38 BP 100/54 L 02/07/21 11:38 Pulse Ox 98 02/07/21 11:38 Body Mass Index 32.1 Const: Other: Constitutional : Alert, oriented, not in distress Neck : Normal inspection, Supple Cardiovascular : irregular RRR, S1 S2, no lower extremity edema Respiratory : Good bilateral air entry, no crackles, wheezes or rhonchi Gastrointestinal: soft, lax, Normal bowel sounds, Non tender Skin : Warm, right lower extremity previous surgical ordonez with chronic skin changes and swelling in comparison to the left leg. No significant erythema noted but areas of tenderness and small amount of clear drainage. Covered with dressing Neurological : Alert & oriented x3, No focal deficit Objective Data Current Medications Generic Name Dose Route Start Last Admin Trade Name Freq PRN Reason Stop Dose Admin Acetaminophen 650 mg 02/05/21 15:38 02/06/21 20:35 Acetaminophen 325 Mg Tablet PO 650 mg Q6H PRN Administration Pain, Mild (Pain Scale 1-3) Albuterol Sulfate 2.5 mg 02/05/21 15:36 Albuterol Sulfate (0.083%) 2.5 Mg/3 Ml Vial.Neb INHALE QID PRN Wheezing Albuterol Sulfate 1 puff 02/05/21 15:36 Albuterol Sulfate 90 Mcg 8 Gm Inhaler INHALE Q4H PRN Wheezing Diltiazem HCl 120 mg 02/05/21 21:00 02/07/21 08:24 Diltiazem Hcl Cd 120 Mg Cap.Er.Deg PO 120 mg BID SEBASTIAN Administration Protocol Furosemide 80 mg 02/06/21 09:00 02/07/21 08:24 Furosemide 40 Mg Tablet PO 80 mg DAILY SEBASTIAN Administration Protocol Ceftriaxone Sodium 1 gm/ 50 mls @ 100 mls/hr 02/06/21 14:00 02/06/21 13:53 Sodium Chloride IV Infused Q24H SEBASTIAN Infusion Levothyroxine Sodium 50 mcg 02/06/21 09:00 02/07/21 08:24 Levothyroxine Sodium 50 Mcg Tablet PO 50 mcg DAILY SEBASTIAN Administration Loratadine 10 mg 02/06/21 09:00 02/07/21 08:24 Loratadine 10 Mg Tablet PO 10 mg DAILY SEBASTIAN Administration Midodrine 5 mg 02/05/21 21:00 02/07/21 08:25 Midodrine Hcl 5 Mg Tablet PO 5 mg TID SEBASTIAN Administration Montelukast Sodium 10 mg 02/06/21 09:00 02/07/21 08:24 Montelukast Sodium 10 Mg Tablet PO 10 mg DAILY SEBASTIAN Administration Omeprazole 20 mg 02/06/21 09:00 02/07/21 08:25 Omeprazole 20 Mg Capsule.Dr PO 20 mg DAILY SEBASTIAN Administration Ondansetron HCl 4 mg 02/05/21 15:38 Ondansetron Hcl 4 Mg/2 Ml Vial IVPUSH Q8H PRN Nausea and Vomiting Pharmacy Consult 1 each 02/05/21 15:02 Consult Rx Vancomycin Dosing MISCELLANE DAILY PRN Consult order Pharmacy Consult 1 each 02/05/21 15:17 Consult Rx Perform Med Rec MISCELLANE ONCE PRN Consult order Pharmacy Consult 1 each 02/05/21 15:43 Consult Rx Vancomycin Dosing MISCELLANE DAILY PRN Consult order Potassium Chloride 10 meq 02/05/21 21:00 02/07/21 08:24 Potassium Chloride Er 10 Meq Capsule.Er PO 10 meq BID SEBASTIAN Administration Sodium Chloride 3 ml 02/05/21 16:00 02/07/21 08:25 0.9 % Sodium Chloride Flush 3 Ml Syringe IVFLUSH 3 ml QSHIFT SEBASTIAN Administration Vitamin D 50 mcg 02/06/21 09:00 02/07/21 08:25 Cholecalciferol (Vitamin D3) 25 Mcg Tablet PO 50 mcg DAILY SEBASTIAN Administration Labs CBC & Chem 7: 02/06/21 05:46 02/07/21 06:08 Labs: Laboratory Results - last 24 hr 02/06/21 02/07/21 02/07/21 16:20 06:08 06:08 PT 27.4 H D INR 2.4 H Anion Gap 10 L Estim Creat Clear Calc 36.4 Estimated GFR 41 Random Glucose 86 Calcium 8.3 L D Urine Color YELLOW Urine Appearance CLEAR Urine pH 6.0 Ur Specific [place] 1.015 Urine Protein NEG Urine Glucose (UA) NEG Urine Ketones NEG Urine Blood TRACE Urine Nitrite NEG Ur Leukocyte Esterase NEG Urine RBC 1-4 Urine WBC 0 Ur Squamous Epith Cells 3+ Urine Bacteria NONE Microbiology Microbiology Results: Microbiology 02/05/21 15:30 Blood Culture - Preliminary Blood - Venous No growth after 24 hours. 02/05/21 15:15 Blood Culture - Preliminary Blood - Venous No growth after 24 hours. Assessment and Plan (1) Supratherapeutic INR: Status: Acute (2) Cellulitis: Status: Acute (3) E coli bacteremia: Status: Acute Assessment and Plan: An 80 years old lady with PMH of COPD, AFib, CHF, hypothyroidism among others who presented hospital with a complaint right lower extremities swelling and pain for the last couple of weeks. Gram-positive Positive blood cultures Likely contaminant Discontinue vancomycin E coli bacteremia Less likely secondary to cellulitis RLE Repeat blood cultures still negative Continue ceftriaxone Wound care Id input appreciated, check for intra-abdominal [place] to do CT scan of abdomen pelvis Supratherapeutic INR INR 2.4 today Start warfarin and monitor INR on daily basis AFib Continue Cardizem Hold warfarin for now CHF Continue Lasix Monitor intake and output DVT PPX Warfarin Quality Stroke Does the patient have a stroke diagnosis?: No VTE Prior VTE?: No VTE Risk Level:: Medical - moderate - high VTE Device Contraindication: Treatment Not Indicated VTE Drug Contraindication: N/A - Med Ordered
[2021-02-07] MEDS: cefTRIAXone sodium 1 GM in 0.9 % Sodium Chloride 50 ML IV (14:58)
[2021-02-07 15:51] VITALS: BP 114/67; PULSE 89; RESP 19; TEMP 36.9; O2SAT 96
[2021-02-07] MEDS: Warfarin Sodium 5 MG TABLET PO (19:46)
[2021-02-07] MEDS: Acetaminophen 325 MG TABLET 650 MG PO (19:47)
[2021-02-07 22:08] VITALS: BP 119/65; PULSE 76
[2021-02-07 23:44] VITALS: BP 101/58; PULSE 81; RESP 16; TEMP 36.7; O2SAT 96
[2021-02-08] MEDS: Acetaminophen 325 MG TABLET 650 MG PO (01:48)
[2021-02-08 06:02] LABS: Hematocrit 34.6 % (37-47); Hemoglobin 10.7 g/dl (12.0-16.0); Mean Corpuscular HGB Conc 30.9 g/dl (31.0-35.0); Mean Corpuscular Hemoglobin 28.8 pg (27.0-33.0); Mean Corpuscular Volume 93.3 fL (80-98); Mean Platelet Volume 10.7 fL (9.4-12.3); Platelet Count 240 X10*3/uL (160-400); Red Blood Count 3.71 X10*6/uL (4.20-5.50); Red Cell Distribution Width 13.1 % (11.0-16.0); White Blood Count 5.3 X10*3/uL (4.8-10.8)
[2021-02-08 06:12] LABS: INTERNATIONAL NORM RATIO 1.7 (0.9-1.1); Prothrombin Time 20.1 SEC (9.9-13.0)
[2021-02-08 06:32] LABS: Anion Gap 15 (12-20); Blood Urea Nitrogen 18 mg/dL (9-16); Calcium 8.2 mg/dL (8.4-10.2); Carbon Dioxide 24 mmol/L (22-29); Chloride 106 mmol/L (96-108); Creatinine Clr Calc Pharmacy 33.4; Estimated Glomerular Filt Rate 37; Glucose Random 92 mg/dL (60-115); Potassium 4.7 mmol/L (3.3-5.1); Sodium 140 mmol/L (135-145)
--- NOTE | 2021-02-08 07:22 | P.CDIC_ITS ---
CDI Concurrent Query Service Date: 02/08/21 Documentation Clarification: Please clarify if you are treating a proba ble/suspected/likely or confirmed: If possible, please provide further specificity regarding atrial fibrillation, such as: -Paroxysmal atrial fibrillation: terminates spontaneously or with intervention within 7 days of onset. -Persistent atrial fibrillation: episodes of continuous AF that last more than 7 days and do not self-terminate. -Long lasting persistent atrial fibrillation: episodes of continuous AF that last more than 12 months -Chronic or Permanent atrial fibrillation: when a decision has been made to accept the presence of AF and there is no further attempt to restore or maintain sinus rhythm. -Other (please specify) -Unable to determine Use of terms such as suspected, likely, concern for, or probable (associated with a specific diagnosis that is being evaluated, monitored, or treated as if it exists) are acceptable and can be coded in the inpatient setting, when documented at the time of discharge. Provider Response: Other Other Diagnosis: new onset Atrial fibrillation PLEASE DO NOT DELETE/MODIFY EXISTING CONTENT Additional information is needed in order to code to the highest accuracy and appropriate Severity of Illness (SOI). Please clarify the information noted below in your progress notes and discharge summary. Risk Factors/Clinical Indicators/Treatments Per H&P: Atrial Fibrillation Coumadin CDS: Seema Saavedra RN Contact Number: [phone] Please Review the information above and exercise your independent professional judgment in responding to the query. If you concur, pleas document in the PROGRESS NOTES and DISCHARGE SUMMARY. If you do not agree with the query, please document in the query above. THIS QUERY IS PART OF THE PERMANENT MEDICAL RECORD
--- NOTE | 2021-02-08 07:27 | P.CDIC_ITS ---
CDI Concurrent Query Service Date: 02/08/21 Documentation Clarification: Please clarify if you are treating a proba ble/suspected/likely or confirmed: Please provide further specificity regarding the most likely type and acuity of CHF you are evaluating, treating, or monitoring. Examples include: Type: -Systolic -Diastolic -Combined Systolic/Diastolic -Other -Unable to determine Acuity: -Acute -Chronic -Acute on chronic -Unable to determine Use of terms such as suspected, likely, concern for, or probable (associated with a specific diagnosis that is being evaluated, monitored, or treated as if it exists) are acceptable and can be coded in the inpatient setting, when documented at the time of discharge. Provider Response: Other Other Diagnosis: chronic diastolic chf PLEASE DO NOT DELETE/MODIFY EXISTING CONTENT Additional information is needed in order to code to the highest accuracy and appropriate Severity of Illness (SOI). Please clarify the information noted below in your progress notes and discharge summary. Risk Factors/Clinical Indicators/Treatments PMH: CHF Treated with diuretic CDS: Seema Saavedra RN Contact Number: [phone] Please Review the information above and exercise your independent professional judgment in responding to the query. If you concur, pleas document in the PROGRESS NOTES and DISCHARGE SUMMARY. If you do not agree with the query, please document in the query above. THIS QUERY IS PART OF THE PERMANENT MEDICAL RECORD
[2021-02-08 07:59] VITALS: BP 101/58; PULSE 79; RESP 18; TEMP 36.8; O2SAT 97
[2021-02-08] MEDS: oxyCODONE HCl Immed Release 5 MG TABLET PO (08:20)
[2021-02-08] MEDS: dilTIAZem HCL CD 120 MG CAP.ER.DEG PO (08:21)
[2021-02-08] MEDS: Loratadine 10 MG TABLET PO (08:21)
[2021-02-08] MEDS: Midodrine HCl 5 MG TABLET PO (08:21)
[2021-02-08] MEDS: Furosemide 40 MG TABLET 80 MG PO (08:21)
[2021-02-08] MEDS: Cholecalciferol (Vitamin D3) 25 MCG TABLET 50 MCG PO (08:21)
[2021-02-08] MEDS: 0.9 % Sodium Chloride Flush 3 ML SYRINGE IVFLUSH (08:21)
[2021-02-08] MEDS: Omeprazole 20 MG CAPSULE.DR PO (08:21)
[2021-02-08] MEDS: Levothyroxine Sodium 50 MCG TABLET PO (08:21)
[2021-02-08] MEDS: Montelukast Sodium 10 MG TABLET PO (08:21)
--- NOTE | 2021-02-08 10:03 | PC.NURSE ---
Skin/wound assessment completed today. Patient has cellulitis on right lower extremity. Triad applied to scant moist area on posterior RLE and top of foot, covered with non woven gauze and roll gauze. Bilateral extremities are very bumpy and dry. Wound noted on admission.
--- NOTE | 2021-02-08 10:24 | MHC.CM.PN ---
CURRENT PLAN IS FOR PATIENT TO RETURN HOME TODAY WITH RESUMPTION OF HER SINGLE RESOURCE BOSS SERVICES. ACCORDING TO PREVIOUS CASE MANAGEMENT NOTE, FAMILY WILL PROVIDE TRANSPORTATION.
--- NOTE | 2021-02-08 11:14 | PM.DS ---
DS: Providers Provider Date of Service: 02/08/21 Date of admission: 02/05/21 15:39 Primary care physician: Laxmi Gutierrez MD Consults: 02/05/21 15:45 Consult to Infectious Diseases Routine Consulting Provider: Eleni Kraus Reason for consultation: positive blood cultures, cellulitis? for your kind eval. DS: Diagnosis Discharge Diagnosis (1) Supratherapeutic INR: Status: Acute (2) Cellulitis: Status: Acute (3) E coli bacteremia: Status: Acute DS: Medications Discharge Medications Home Medications: Home Medications Medication Instructions Recorded Confirmed albuterol sulfate 2.5 mg INHALATION QID PRN 02/04/21 02/05/21 albuterol sulfate 90 mcg/actuation 1 puff INHALATION Q4H PRN 02/04/21 02/05/21 aerosol inhaler calcium carbonate 600 mg (1,500 1 tab PO BID 02/04/21 02/05/21 mg)-vitamin D3 400 unit tablet cholecalciferol (vitamin D3) 50 50 mcg PO DAILY 02/04/21 02/05/21 mcg (2,000 unit) capsule (Vitamin D3) diltiazem HCl 120 mg capsule,24 120 mg PO BID 02/04/21 02/05/21 hr,extended release ferrous sulfate 325 mg (65 mg 325 mg PO DAILY 02/04/21 02/05/21 iron) tablet (FeroSul) fluticasone 500 mcg-salmeterol 50 1 puff INHALATION BID 02/04/21 02/05/21 mcg/dose blistr powdr for inhalation (Wixela Inhub) furosemide 80 mg tablet 80 mg PO DAILY 02/04/21 02/05/21 levothyroxine 50 mcg tablet 50 mcg PO DAILY 02/04/21 02/05/21 loratadine 10 mg tablet 10 mg PO DAILY 02/04/21 02/05/21 midodrine 5 mg tablet 5 mg PO TID 02/04/21 02/05/21 montelukast 10 mg tablet 10 mg PO DAILY 02/04/21 02/05/21 omeprazole 20 mg capsule,delayed 20 mg PO DAILY 02/04/21 02/05/21 release potassium chloride 10 mEq 10 meq PO BID 02/04/21 02/05/21 tablet,extended release warfarin 2.5 mg tablet 5 mg PO DAILY 02/04/21 02/05/21 Previous Rx's Medication Instructions Recorded clotrimazole 1 % topical cream 1 appl TOPICAL DAILY #30 g 02/04/21 doxycycline monohydrate 100 mg 100 mg PO BID #20 cap 02/04/21 capsule mupirocin 2 % topical ointment 1 appl TOPICAL DAILY #15 g 02/04/21 cefuroxime axetil 250 mg tablet 250 mg PO BID #22 tab 02/08/21 DS: Summary Hospital Course Hospital Course: Admission note HPI An 80 years old lady with PMH of COPD, AFib, CHF, hypothyroidism among others who presented hospital with a complaint right lower extremities swelling and pain for the last couple of weeks.? The patient with to the emergency 2 times before today for right lower extremity cellulitis discharged on oral antibiotic yesterday.? She had blood cultures drawn the emergency which each bottle is growing different species.? Called back today to come the emergency for the positive result. The patient denies any fever, chills, nausea or vomiting or change in bowel habit.? She reports small amount of drainage with bad others on occasions. Admitted for further evaluation and treatment. Hospital course Patient was admitted to the hospital for positive blood cultures as 2 sets were growing 2 different bacteria as 1 g positive cocci turned to be contaminant and the other said growing GNR turned out to be sensitive E coli. A CT scan of the abdomen and urinalysis were negative for any infectious process. Id was involved and recommended treatment for total of 2 weeks with Ceftin for the coli bacteremia. For the right lower extremity edema and swelling concern for cellulitis covered with ceftriaxone only as the patient was on doxycycline and. No other signs of infection identified. Treated with Parminder wrap and leg elevation with usage of Lasix. Advised to keep her leg elevated and use, compressive stocking or Parminder wrap To follow-up with PCP as outpatient Time Spent with Patient Time attestation: Total time spent providing and/or coordinating discharge services: Discharge coordination time: Greater than 30 minutes Quality: Stroke Does the patient have a stroke diagnosis?: No Physical Exam Vital Signs: Vital Signs: Last Vital Signs Temp 98.3 F 02/08/21 07:59 Pulse 79 02/08/21 07:59 Resp 18 02/08/21 07:59 BP 101/58 L 02/08/21 07:59 Pulse Ox 97 02/08/21 07:59 Body Mass Index 32.1 Const: Other: Constitutional : Alert, oriented, not in distress Neck : Normal inspection, Supple Cardiovascular : irregular RRR, S1 S2, no lower extremity edema Respiratory : Good bilateral air entry, no crackles, wheezes or rhonchi Gastrointestinal: soft, lax, Normal bowel sounds, Non tender Skin : Warm, right lower extremity previous surgical ordonez with chronic skin changes, No significant erythema noted , no drainage. Covered with dressing Neurological : Alert & oriented x3, No focal deficit DS: Data Data Completed and Pending Labs on day of discharge: Laboratory Results - last 24 hr 02/08/21 02/08/21 02/08/21 05:31 05:31 05:31 WBC 5.3 RBC 3.71 L Hgb 10.7 L Hct 34.6 L MCV 93.3 MCH 28.8 MCHC 30.9 L RDW 13.1 Plt Count 240 MPV 10.7 Absolute Nucleated RBC 0.000 Nucleated RBC % (auto) 0.0 PT 20.1 H D INR 1.7 H Sodium 140 Potassium 4.7 Chloride 106 Carbon Dioxide 24 Anion Gap 15 BUN 18 H Creatinine 1.36 Estim Creat Clear Calc 33.4 Estimated GFR 37 Random Glucose 92 Calcium 8.2 L Preliminary micro results at discharge 02/05/21 15:30 Blood Culture - Preliminary Blood - Venous No growth after 48 hours. 02/05/21 15:15 Blood Culture - Preliminary Blood - Venous No growth after 48 hours. Discharge Plan Discharge Patient Disposition: Home, Self-Care Discharge Diagnosis: E coli bacteremia Cellulitis Referrals: Laxmi Gutierrez MD [Primary Care Provider] - 1 Week Discharge Medications: New cefuroxime axetil 250 mg tablet 250 mg PO BID Qty: 22 RF: 0 Continued albuterol sulfate 2.5 mg /3 mL (0.083 %) solution for nebulization 2.5 mg inhalation QID PRN (Reason: Wheezing) RF: 0 midodrine 5 mg tablet 5 mg PO TID RF: 0 warfarin 2.5 mg tablet 5 mg PO DAILY RF: 0 potassium chloride 10 mEq tablet extended release 10 meq PO BID RF: 0 furosemide 80 mg tablet 80 mg PO DAILY RF: 0 diltiazem HCl 120 mg capsule,extended release 24 hr 120 mg PO BID RF: 0 levothyroxine 50 mcg tablet 50 mcg PO DAILY RF: 0 ferrous sulfate [FeroSul] 325 mg (65 mg iron) tablet 325 mg PO DAILY RF: 0 fluticasone propion-salmeterol [Wixela Inhub] 500-50 mcg/dose blister with device 1 puff inhalation BID RF: 0 omeprazole 20 mg capsule,delayed release(DR/EC) 20 mg PO DAILY RF: 0 montelukast 10 mg tablet 10 mg PO DAILY RF: 0 loratadine 10 mg tablet 10 mg PO DAILY RF: 0 calcium carbonate-vitamin D3 600 mg(1,500mg) -400 unit tablet 1 tab PO BID RF: 0 cholecalciferol (vitamin D3) [Vitamin D3] 50 mcg (2,000 unit) capsule 50 mcg PO DAILY RF: 0 albuterol sulfate 90 mcg/actuation HFA aerosol inhaler 1 puff inhalation Q4H PRN (Reason: Wheezing) RF: 0 doxycycline monohydrate 100 mg capsule 100 mg PO BID Qty: 20 RF: 0 mupirocin 2 % ointment 1 appl topical DAILY Qty: 15 RF: 0 clotrimazole 1 % cream 1 appl topical DAILY Qty: 30 RF: 0 Discharge Orders: Discharge Order (Routine); Ordered 02/08/21 Ordered By: Rosmery Nieto Diet: advance to usual diet Activity on Discharge: As tolerated Stand Alone Forms: Patient Portal Discharge page Care Plan Goals: Read below Health Concerns: Read below Plan of Treatment: You were admitted to the hospital for evaluation of right lower extremity swelling and pain. Seems to be chronic changes more than acute infection. Treated with leg elevation and Parminder. Your blood cultures grew E coli which is usually a urine bacteria. Image for your stomach was negative for any findings. Treated with IV antibiotics. Assessment: Continue Ceftin as prescribed Keep your leg elevated, use compressing stockings or Parminder wrap to follow-up with your PCP
--- NOTE | 2021-02-08 13:20 | MHC.CM.PN ---
ACTION AMBULANCE TRANSPORT SCHEDULED FOR 1430 FROM ROOM 359 TO HOME WITH SERVICE RESUMPTION. SON (IN ROOM) AWARE OF PLAN.
== END 2021-02-08 14:45 | disposition home or self-care (01) | DRG 603 ==
LOC: HO.ED 15:55 → HO.EDOVER 15:56 → HO.S3 17:19
PROVIDERS: Internal Medicine; Nurse Practitioner Family; Admitting Provider Student in an Organized Health Care Education/Training Program; Emergency Provider Emergency Medicine; PCP Internal Medicine; Visit Provider Student in an Organized Health Care Education/Training Program
DX: L03.115 Cellulitis of right lower limb (principal); R78.81 Bacteremia; I50.32 Chronic diastolic (congestive) heart failure; I48.91 Unspecified atrial fibrillation; I11.0 Hypertensive heart disease with heart failure; R79.1 Abnormal coagulation profile; B96.20 Unspecified Escherichia coli [E. coli] as the cause of diseases classified elsewhere; E03.9 Hypothyroidism, unspecified; Z20.822 Contact with and (suspected) exposure to COVID-19; Z79.01 Long term (current) use of anticoagulants; Z79.51 Long term (current) use of inhaled steroids; Z79.890 Hormone replacement therapy; Z79.899 Other long term (current) drug therapy
CPT/HCPCS: 36415; 74176; 80048; 80076; 81001; 83605; 85025; 85027; 85610; 87040; 87635; 93005; 96365; 96375; 99285; J0696; J2270; J3370

== ENCOUNTER 2021-03-03 14:00 | Outpatient (RCR) | payer MEDICARE, SELFPAY | END 2021-03-10 15:36 | disposition home or self-care (01) | LOC: HO.WCC 14:00 | PROVIDERS: PCP Internal Medicine; Visit Provider Physician Assistant | DX: I87.2 Venous insufficiency (chronic) (peripheral) (principal); I10 Essential (primary) hypertension | CPT/HCPCS: 99213 ==

== ENCOUNTER 2021-04-12 11:23 | Emergency (ER) | payer MEDICARE, SELFPAY ==
--- NOTE | ~2021-04-12 | XR_ITS ---
EXAMINATION: XR CHEST CLINICAL INFORMATION: CHF. COMPARISON: Most recent chest radiograph dated 08/09/2019. TECHNIQUE: Frontal view of the chest was obtained. FINDINGS: Stable cardiomegaly. Diffuse interstitial prominence and pulmonary vascular prominence, slightly increased when compared to the prior examination. No focal airspace consolidation. No pleural effusion or pneumothorax. XR/XR chest 1V IMPRESSION: Diffuse interstitial and pulmonary vascular prominence, slightly increased when compared to the prior examination. Stable cardiomegaly. Findings could represent minimal pulmonary edema in the appropriate clinical setting.
--- NOTE | ~2021-04-12 | US_ITS ---
EXAMINATION: US VENOUS ULTRASOUND WITH DOPPLER LOWER EXTREMITY, RIGHT CLINICAL INFORMATION: Swelling and redness. COMPARISON: None TECHNIQUE: Ultrasound of the deep veins is performed from the hip to the calf with compression sonography and color and pulse Doppler assessment. Spectral analysis with color-flow imaging is performed. FINDINGS: There is normal venous compression and respiratory variation and augmented flow. The distal right common femoral vein is suboptimally visualized. The visualized common femoral vein, superficial femoral vein, profunda femoral vein, popliteal vein, and the trifurcation region shows no evidence of deep venous thrombosis. There is no significant popliteal fossa cyst. There are small multiple lymph nodes visualized in the right groin there have typical lymph node echotexture. US/US venous duplex LE RT IMPRESSION: No DVT demonstrated in the right lower extremity. The right distal superficial femoral vein is suboptimally visualized. Multiple lymph nodes in the right groin area.
[2021-04-12 12:43] VITALS: BP 115/63; PULSE 80; RESP 18; TEMP 37; O2SAT 96; BMI 35.2
--- NOTE | 2021-04-12 12:45 | ED_ITS ---
HPI - Extremity Problem General Chief complaint: Extremity Problem <Alisha Riddle NP - Last Filed: 04/12/21 12:47> Stated complaint: Cellulitis <Alisha Riddle NP - Last Filed: 04/12/21 12:47> Time Seen by Provider: 04/12/21 12:44 <Alisha Riddle NP - Last Filed: 04/12/21 12:47> Source: patient <REAGAN Jama - Last Filed: 04/12/21 21:54> Mode of arrival: ambulatory <REAGAN Jama - Last Filed: 04/12/21 21:54> History of Present Illness HPI Narrative: 80-year-old female with a past medical history of HTN, asthma, AFib chronically rate controlled on Coumadin, arthritis, CHF, hypothyroidism, presenting to the ED complaining of acute on chronic worsening RLE swelling and erythema x few days. Reports slight drainage from area, chills, and subjective fever. Admits to similar symptoms in the past. Denies CP, SOB, calf pain, recent travel, abdominal pain <REAGAN Jama - Last Filed: 04/12/21 21:54> MD Complaint: extremity pain and extremity swelling <REAGAN Jama Last Filed: 04/12/21 21:54> Related Data Home medications: Home Medications Medication Instructions Recorded Confirmed albuterol sulfate 2.5 mg INHALATION QID PRN 02/04/21 02/05/21 albuterol sulfate 90 mcg/actuation 1 puff INHALATION Q4H PRN 02/04/21 02/05/21 aerosol inhaler calcium carbonate 600 mg (1,500 1 tab PO BID 02/04/21 02/05/21 mg)-vitamin D3 400 unit tablet cholecalciferol (vitamin D3) 50 50 mcg PO DAILY 02/04/21 02/05/21 mcg (2,000 unit) capsule (Vitamin D3) diltiazem HCl 120 mg capsule,24 120 mg PO BID 02/04/21 02/05/21 hr,extended release ferrous sulfate 325 mg (65 mg 325 mg PO DAILY 02/04/21 02/05/21 iron) tablet (FeroSul) fluticasone 500 mcg-salmeterol 50 1 puff INHALATION BID 02/04/21 02/05/21 mcg/dose blistr powdr for inhalation (Latha Inhub) furosemide 80 mg tablet 80 mg PO DAILY 02/04/21 02/05/21 levothyroxine 50 mcg tablet 50 mcg PO DAILY 02/04/21 02/05/21 loratadine 10 mg tablet 10 mg PO DAILY 02/04/21 02/05/21 midodrine 5 mg tablet 5 mg PO TID 02/04/21 02/05/21 montelukast 10 mg tablet 10 mg PO DAILY 02/04/21 02/05/21 omeprazole 20 mg capsule,delayed 20 mg PO DAILY 02/04/21 02/05/21 release potassium chloride 10 mEq 10 meq PO BID 02/04/21 02/05/21 tablet,extended release warfarin 2.5 mg tablet 5 mg PO DAILY 02/04/21 02/05/21 Previous Rx's Medication Instructions Recorded clotrimazole 1 % topical cream 1 appl TOPICAL DAILY #30 g 02/04/21 doxycycline monohydrate 100 mg 100 mg PO BID #20 cap 02/04/21 capsule mupirocin 2 % topical ointment 1 appl TOPICAL DAILY #15 g 02/04/21 cefuroxime axetil 250 mg tablet 250 mg PO BID #22 tab 02/08/21 cephalexin 500 mg capsule 500 mg PO QID 7 Days #28 cap 04/12/21 clotrimazole 1 % topical cream 1 appl TOPICAL DAILY 7 Days #45 g 04/12/21 doxycycline hyclate 100 mg tablet 100 mg PO BID 7 Days #14 tab 04/12/21 mupirocin 2 % topical ointment 1 appl TOPICAL DAILY #22 g 04/12/21 <Alisha Riddle NP - Last Filed: 04/12/21 12:47> Allergies/Adverse reactions: Allergies Allergy/AdvReac Type Severity Reaction Status Date / Time lisinopril [LISINOPRIL] Allergy Unknown UNKNOWN Verified 02/05/21 21:56 simvastatin [SIMVASTATIN] Allergy Unknown UNKNOWN Verified 02/05/21 21:56 <Alisha Riddle NP - Last Filed: 04/12/21 12:47> Review of Systems Review of Systems: Constitutional: No Fever, No Chills, No Fatigue, No Malaise ENT/Mouth: No Ear Pain, No Nasal Congestion, No sore throat, No Rhinorrhea, No Swallowing Difficulty Eyes: No Eye Pain, No Swelling, No Vision Changes Cardiovascular: No Chest Pain, No SOB, No Orthopnea, + Edema, No Palpitations Respiratory: No Cough, No Dyspnea Gastrointestinal: No Nausea, No Vomiting, No Diarrhea, No Constipation, No Abdominal pain Genitourinary: No Dysuria, No Urinary Frequency, No Hematuria, No Flank Pain Musculoskeletal: + joint pain, No Myalgias, No Joint Swelling Skin: + Skin Lesions, No rash Neuro: No Weakness, No Numbness, No Paresthesias, No Headache <REAGAN Jama - Last Filed: 04/12/21 21:54> Yes all other systems are reviewed and are negative <REAGAN Jama - Last Filed: 04/12/21 21:54> [facility] Past Medical History Attestation statement: The following information was validated with the patient. <REAGAN Jama - Last Filed: 04/12/21 21:54> Medical History: Medical History Afib Asthma CHF (congestive heart failure) HTN (hypertension) Hypothyroid <Alisha Riddle NP - Last Filed: 04/12/21 12:47> Surgical History: Surgical History S/P hip replacement <Alisha Riddle NP - Last Filed: 04/12/21 12:47> Social History Social History: Social History Household Members: None Housing: Apartment Do you presently have visiting nurse or other home services: Yes Alcohol intake: never Patient Tobacco Use Status: Never used Tobacco Use of substances other than those prescribed or required for medical reasons: No Advance Directives: No Advance Directives Information Provided: No service: No Current occupational status: disabled <Alisha Riddle NP - Last Filed: 04/12/21 12:47> Physical Exam Vital Signs: Vital Signs: Last Vital Signs Temp 98.1 F 04/12/21 20:31 Pulse 87 04/12/21 20:31 Resp 16 04/12/21 20:31 BP 149/91 H 04/12/21 20:31 Pulse Ox 95 04/12/21 20:31 Body Mass Index 35.2 <Alisha Riddle NP - Last Filed: 04/12/21 12:47> Vital Signs: Last Vital Signs Temp 98.1 F 04/12/21 20:31 Pulse 87 04/12/21 20:31 Resp 16 04/12/21 20:31 BP 149/91 H 04/12/21 20:31 Pulse Ox 95 04/12/21 20:31 Body Mass Index 35.2 <Tahmina Galeana PA - Last Filed: 04/12/21 21:54> Const: General: cooperative, healthy appearing and no acute distress <REAGAN Jama - Last Filed: 04/12/21 21:54> Orientation/consciousness: patient oriented x3 <REAGAN Jama - Last Filed: 04/12/21 21:54> Limitations: no limitations <REAGAN Jama - Last Filed: 04/12/21 21:54> HENMT: Head: Yes normal to inspection <Tahmina Galeana PA - Last Filed: 04/12/21 21:54> Ears: hearing grossly normal bilaterally <Tahmina Galeana PA - Last Filed: 04/12/21 21:54> General nose exam: Normal external nose present <REAGAN Jama - Last Filed: 04/12/21 21:54> Face and sinus: Yes normal facial exam <REAGAN Jama - Last Filed: 04/12/21 21:54> Eyes: General: appearance normal, both eyes and all related structures <Tahmina Galeana PA - Last Filed: 04/12/21 21:54> EOM: EOMs intact bilaterally <Tahmina Galeana PA - Last Filed: 04/12/21 21:54> Neck: Neck: Yes normal visual inspection <REAGAN Jama - Last Filed: 04/12/21 21:54> Resp: Effort & Inspection: normal respiratory effort <Tahmina Galeana PA - Last Filed: 04/12/21 21:54> Auscultation: clear to auscultation bilaterally, no rales, no rhonchi and no wheezes <REAGAN Jama - Last Filed: 04/12/21 21:54> Cardio: Rate: regular rate <REAGAN Jama - Last Filed: 04/12/21 21:54> Heart sounds: S1 normal heart sound present and S2 normal heart sound present <REAGAN Jama - Last Filed: 04/12/21 21:54> Peripheral pulses: dorsalis pedis present <REAGAN Jama - Last Filed: 04/12/21 21:54> GI: Inspection: Yes normal to inspection <REAGAN Jama - Last Filed: 04/12/21 21:54> Palpation (GI): Soft to palpation, nontender, no guarding and not rigid <REAGAN Jama - Last Filed: 04/12/21 21:54> Skin: Rashes: no rashes <REAGAN Jama - Last Filed: 04/12/21 21:54> Wounds: no wounds <REAGAN Jama - Last Filed: 04/12/21 21:54> Neuro: General: patient oriented x3 <REAGAN Jama - Last Filed: 04/12/21 21:54> Gait exam (Neuro): Normal gait present <REAGAN Jama - Last Filed: 04/12/21 21:54> Extrem: Other: Right lower extremity with venous stasis changes and slight weeping to distal RLE, mild erythema, tender to palpation. Not warm to touch. Distal pulses intact. No streaking/fluctuance/induration <REAGAN Jama - Last Filed: 04/12/21 21:54> Course Course Course Narrative: 1245-This is rapid medical exam. 80 yo female with past medical history with h/o recurrent cellulitis RLE here with increasing redness/swelling x several days with chills, subjective fevers, acute on chronic wounds. Will need labs, venous US. Deferred additional HPI, ROS, PE to primary provider. <Alisha Riddle NP - Last Filed: 04/12/21 12:47> 1245-This is rapid medical exam. 80 yo female with past medical history with h/o recurrent cellulitis RLE here with increasing redness/swelling x several days with chills, subjective fevers, acute on chronic wounds. Will need labs, venous US. Deferred additional HPI, ROS, PE to primary provider. -1746--no leukocytosis. H&H stable. ESR elevated at 79, CRP 10.9, acute on chronic CKD with BUN 21, creatinine 1.46 -lactic acid negative -Patient does not meet any SIRS/sepsis criteria at this time, no tachycardia, no tachypnea, no WBC count. Will give dose of IV Ceftriaxone/Doxycycline in the ED. Plan to DC home with p.o. antibiotics and close PCP/wound care follow-up US venous duplex LE RT IMPRESSION: No DVT demonstrated in the right lower extremity. The right distal superficial femoral vein is suboptimally visualized. Multiple lymph nodes in the right groin area. -2013--INR subtherapeutic at 1.6 XR chest 1V IMPRESSION: Diffuse interstitial and pulmonary vascular prominence, slightly increased when compared to the prior examination. Stable cardiomegaly. Findings could represent minimal pulmonary edema in the appropriate clinical setting. >> patient without hypoxia or SOB. 40mg of IV Lasix ordered prior to DC * patient's son also requesting topical antifungals as was successful in the past. Will Rx reccommended one-to-one mixture of clotrimazole and mupirocin topical to the affected area with a nonstick dressing and a wrap daily <REAGAN Jama - Last Filed: 04/12/21 21:54> MDM - Extremity (Nontraumatic) MDM Narrative Medical decision making narrative: 80-year-old female with a past medical history of HTN, asthma, AFib chronically rate controlled on Coumadin, arthritis, CHF, hypothyroidism, presenting to the ED complaining of acute on chronic worsening RLE swelling and erythema x few days. On exam VSS, NAD/well-appearing, lungs CTA, physical exam as above consistent with RLE cellulitis. Rule out DVT vs CHF. Low concern for severe sepsis at this time Plan: Labs, lactic/blood cultures, venous duplex ultrasound, IV antibiotics, re-evaluate <REAGAN Jama - Last Filed: 04/12/21 21:54> Lab Data Result diagrams: : 04/12/21 14:15 04/12/21 14:15 <Alisha Riddle NP - Last Filed: 04/12/21 12:47> Labs: Lab Results 04/12/21 04/12/21 04/12/21 Range/Units 14:15 14:15 14:15 WBC 7.1 (4.8-10.8) X10*3/uL RBC 4.03 L (4.20-5.50) X10*6/uL Hgb 11.8 L (12.0-16.0) g/dl Hct 37.7 (37-47) % MCV 93.5 (80-98) fL MCH 29.3 (27.0-33.0) pg MCHC 31.3 (31.0-35.0) g/dl RDW 13.7 (11.0-16.0) % Plt Count 152 L D (160-400) X10*3/uL MPV 10.8 (9.4-12.3) fL Immature Gran % (Auto) 0.1 (0.0-0.4) % Neut % (Auto) 68.1 (45-73) % Lymph % (Auto) 21.0 (20-40) % [place] % (Auto) 8.4 (2-11) % Eos % (Auto) 1.8 (0-4) % Baso % (Auto) 0.6 (0-2) % Lymph # (Auto) 1.5 (1.2-4.9) X10*3/uL [place] # (Auto) 0.6 (0.1-1.2) X10*3/uL Eos # (Auto) 0.1 (0.0-0.4) X10*3/uL Baso # (Auto) 0.0 (0.0-0.2) X10*3/uL Abs Immat Gran (auto) 0.01 (0.00-0.03) X10*3/uL Absolute Neuts (auto) 4.8 (2.0-8.3) X10*3/uL Absolute Nucleated RBC 0.000 (0.0-0.012) X10*3/uL Nucleated RBC % (auto) 0.0 (0.0-0.2) /100WBC ESR 79 H (0-20) MM/HR PT (9.9-13.0) SEC INR (0.9-1.1) Sodium 140 (135-145) mmol/L Potassium 3.4 D (3.3-5.1) mmol/L Chloride 99 (96-108) mmol/L Carbon Dioxide 32 H (22-29) mmol/L Anion Gap 12 (12-20) BUN 21 H (9-16) mg/dL Creatinine 1.46 H (0.5-1.4) mg/dL Estim Creat Clear Calc 29.1 Estimated GFR 34 Random Glucose 105 (60-115) mg/dL Lactic Acid (0.5-2.0) mmol/L Calcium 9.1 D (8.4-10.2) mg/dL Total Bilirubin 0.7 (0.0-1.0) mg/dL Direct Bilirubin 0.4 (0.0-0.5) mg/dL AST 13 (5-31) U/L ALT < 6 (0-31) U/L Alkaline Phosphatase 83 (39-117) U/L C-Reactive Protein 10.90 H (< or = 0.50) mg/dL B-Natriuretic Peptide (<100) pg/mL Total Protein 8.2 H (6.5-8.0) g/dL Albumin 3.6 (3.5-5.0) g/dL 04/12/21 04/12/21 04/12/21 Range/Units 14:15 14:15 19:11 WBC (4.8-10.8) X10*3/uL RBC (4.20-5.50) X10*6/uL Hgb (12.0-16.0) g/dl Hct (37-47) % MCV (80-98) fL MCH (27.0-33.0) pg MCHC (31.0-35.0) g/dl RDW (11.0-16.0) % Plt Count (160-400) X10*3/uL MPV (9.4-12.3) fL Immature Gran % (Auto) (0.0-0.4) % Neut % (Auto) (45-73) % Lymph % (Auto) (20-40) % Green[place] % (Auto) (2-11) % Eos % (Auto) (0-4) % Baso % (Auto) (0-2) % Lymph # (Auto) (1.2-4.9) X10*3/uL Green[place] # (Auto) (0.1-1.2) X10*3/uL Eos # (Auto) (0.0-0.4) X10*3/uL Baso # (Auto) (0.0-0.2) X10*3/uL Abs Immat Gran (auto) (0.00-0.03) X10*3/uL Absolute Neuts (auto) (2.0-8.3) X10*3/uL Absolute Nucleated RBC (0.0-0.012) X10*3/uL Nucleated RBC % (auto) (0.0-0.2) /100WBC ESR (0-20) MM/HR PT 18.7 H (9.9-13.0) SEC INR 1.6 H (0.9-1.1) Sodium (135-145) mmol/L Potassium (3.3-5.1) mmol/L Chloride (96-108) mmol/L Carbon Dioxide (22-29) mmol/L Anion Gap (12-20) BUN (9-16) mg/dL Creatinine (0.5-1.4) mg/dL Estim Creat Clear Calc Estimated GFR Random Glucose (60-115) mg/dL Lactic Acid 1.1 (0.5-2.0) mmol/L Calcium (8.4-10.2) mg/dL Total Bilirubin (0.0-1.0) mg/dL Direct Bilirubin (0.0-0.5) mg/dL AST (5-31) U/L ALT (0-31) U/L Alkaline Phosphatase (39-117) U/L C-Reactive Protein (< or = 0.50) mg/dL B-Natriuretic Peptide 140 H (<100) pg/mL Total Protein (6.5-8.0) g/dL Albumin (3.5-5.0) g/dL <Alisha Riddle NP - Last Filed: 04/12/21 12:47> Lab Results 04/12/21 04/12/21 04/12/21 Range/Units 14:15 14:15 14:15 WBC 7.1 (4.8-10.8) X10*3/uL RBC 4.03 L (4.20-5.50) X10*6/uL Hgb 11.8 L (12.0-16.0) g/dl Hct 37.7 (37-47) % MCV 93.5 (80-98) fL MCH 29.3 (27.0-33.0) pg MCHC 31.3 (31.0-35.0) g/dl RDW 13.7 (11.0-16.0) % Plt Count 152 L D (160-400) X10*3/uL MPV 10.8 (9.4-12.3) fL Immature Gran % (Auto) 0.1 (0.0-0.4) % Neut % (Auto) 68.1 (45-73) % Lymph % (Auto) 21.0 (20-40) % [place] % (Auto) 8.4 (2-11) % Eos % (Auto) 1.8 (0-4) % Baso % (Auto) 0.6 (0-2) % Lymph # (Auto) 1.5 (1.2-4.9) X10*3/uL [place] # (Auto) 0.6 (0.1-1.2) X10*3/uL Eos # (Auto) 0.1 (0.0-0.4) X10*3/uL Baso # (Auto) 0.0 (0.0-0.2) X10*3/uL Abs Immat Gran (auto) 0.01 (0.00-0.03) X10*3/uL Absolute Neuts (auto) 4.8 (2.0-8.3) X10*3/uL Absolute Nucleated RBC 0.000 (0.0-0.012) X10*3/uL Nucleated RBC % (auto) 0.0 (0.0-0.2) /100WBC ESR 79 H (0-20) MM/HR PT (9.9-13.0) SEC INR (0.9-1.1) Sodium 140 (135-145) mmol/L Potassium 3.4 D (3.3-5.1) mmol/L Chloride 99 (96-108) mmol/L Carbon Dioxide 32 H (22-29) mmol/L Anion Gap 12 (12-20) BUN 21 H (9-16) mg/dL Creatinine 1.46 H (0.5-1.4) mg/dL Estim Creat Clear Calc 29.1 Estimated GFR 34 Random Glucose 105 (60-115) mg/dL Lactic Acid (0.5-2.0) mmol/L Calcium 9.1 D (8.4-10.2) mg/dL Total Bilirubin 0.7 (0.0-1.0) mg/dL Direct Bilirubin 0.4 (0.0-0.5) mg/dL AST 13 (5-31) U/L ALT < 6 (0-31) U/L Alkaline Phosphatase 83 (39-117) U/L C-Reactive Protein 10.90 H (< or = 0.50) mg/dL B-Natriuretic Peptide (<100) pg/mL Total Protein 8.2 H (6.5-8.0) g/dL Albumin 3.6 (3.5-5.0) g/dL 04/12/21 04/12/21 04/12/21 Range/Units 14:15 14:15 19:11 WBC (4.8-10.8) X10*3/uL RBC (4.20-5.50) X10*6/uL Hgb (12.0-16.0) g/dl Hct (37-47) % MCV (80-98) fL MCH (27.0-33.0) pg MCHC (31.0-35.0) g/dl RDW (11.0-16.0) % Plt Count (160-400) X10*3/uL MPV (9.4-12.3) fL Immature Gran % (Auto) (0.0-0.4) % Neut % (Auto) (45-73) % Lymph % (Auto) (20-40) % [place] % (Auto) (2-11) % Eos % (Auto) (0-4) % Baso % (Auto) (0-2) % Lymph # (Auto) (1.2-4.9) X10*3/uL [place] # (Auto) (0.1-1.2) X10*3/uL Eos # (Auto) (0.0-0.4) X10*3/uL Baso # (Auto) (0.0-0.2) X10*3/uL Abs Immat Gran (auto) (0.00-0.03) X10*3/uL Absolute Neuts (auto) (2.0-8.3) X10*3/uL Absolute Nucleated RBC (0.0-0.012) X10*3/uL Nucleated RBC % (auto) (0.0-0.2) /100WBC ESR (0-20) MM/HR PT 18.7 H (9.9-13.0) SEC INR 1.6 H (0.9-1.1) Sodium (135-145) mmol/L Potassium (3.3-5.1) mmol/L Chloride (96-108) mmol/L Carbon Dioxide (22-29) mmol/L Anion Gap (12-20) BUN (9-16) mg/dL Creatinine (0.5-1.4) mg/dL Estim Creat Clear Calc Estimated GFR Random Glucose (60-115) mg/dL Lactic Acid 1.1 (0.5-2.0) mmol/L Calcium (8.4-10.2) mg/dL Total Bilirubin (0.0-1.0) mg/dL Direct Bilirubin (0.0-0.5) mg/dL AST (5-31) U/L ALT (0-31) U/L Alkaline Phosphatase (39-117) U/L C-Reactive Protein (< or = 0.50) mg/dL B-Natriuretic Peptide 140 H (<100) pg/mL Total Protein (6.5-8.0) g/dL Albumin (3.5-5.0) g/dL <REAGAN Jama - Last Filed: 04/12/21 21:54> Discharge Plan Discharge Clinical Impression: Cellulitis Qualifiers: Site of cellulitis: extremity Site of cellulitis of extremity: lower extremity Laterality: right Qualified Code(s): L03.115 - Cellulitis of right lower limb <Alisha Riddle NP - Last Filed: 04/12/21 12:47> Patient Disposition: Home, Self-Care <Alisha Riddle NP - Last Filed: 04/12/21 12:47> Instructions: Cellulitis (ED) <Alisha Riddle NP - Last Filed: 04/12/21 12:47> Additional Instructions: you have infection of your leg, Doxycycline and Keflex are antibiotics please take as prescribed Your INR subtherapeutic at 1.6, make sure this is rechecked in 2 days Please follow-up with your doctor in 2 days Please follow-up with wound care as soon as possible Recommended a one-to-one mixture of clotrimazole and mupirocin topical to the affected area with a nonstick dressing and a wrap daily Make sure taking all home prescribed medications <Alisha Riddle NP - Last Filed: 04/12/21 12:47> Prescriptions: New cephalexin 500 mg capsule 500 mg PO QID 7 Days Qty: 28 RF: 0 doxycycline hyclate 100 mg tablet 100 mg PO BID 7 Days Qty: 14 RF: 0 clotrimazole 1 % cream 1 appl topical DAILY 7 Days Qty: 45 RF: 0 mupirocin 2 % ointment 1 appl topical DAILY Qty: 22 RF: 0 No Action albuterol sulfate 2.5 mg /3 mL (0.083 %) solution for nebulization 2.5 mg inhalation QID PRN (Reason: Wheezing) RF: 0 midodrine 5 mg tablet 5 mg PO TID RF: 0 warfarin 2.5 mg tablet 5 mg PO DAILY RF: 0 potassium chloride 10 mEq tablet extended release 10 meq PO BID RF: 0 furosemide 80 mg tablet 80 mg PO DAILY RF: 0 diltiazem HCl 120 mg capsule,extended release 24 hr 120 mg PO BID RF: 0 levothyroxine 50 mcg tablet 50 mcg PO DAILY RF: 0 ferrous sulfate [FeroSul] 325 mg (65 mg iron) tablet 325 mg PO DAILY RF: 0 fluticasone propion-salmeterol [Wixela Inhub] 500-50 mcg/dose blister with device 1 puff inhalation BID RF: 0 omeprazole 20 mg capsule,delayed release(DR/EC) 20 mg PO DAILY RF: 0 montelukast 10 mg tablet 10 mg PO DAILY RF: 0 loratadine 10 mg tablet 10 mg PO DAILY RF: 0 calcium carbonate-vitamin D3 600 mg(1,500mg) -400 unit tablet 1 tab PO BID RF: 0 cholecalciferol (vitamin D3) [Vitamin D3] 50 mcg (2,000 unit) capsule 50 mcg PO DAILY RF: 0 albuterol sulfate 90 mcg/actuation HFA aerosol inhaler 1 puff inhalation Q4H PRN (Reason: Wheezing) RF: 0 doxycycline monohydrate 100 mg capsule 100 mg PO BID Qty: 20 RF: 0 mupirocin 2 % ointment 1 appl topical DAILY Qty: 15 RF: 0 clotrimazole 1 % cream 1 appl topical DAILY Qty: 30 RF: 0 cefuroxime axetil 250 mg tablet 250 mg PO BID Qty: 22 RF: 0 <Alisha Riddle NP - Last Filed: 04/12/21 12:47> Referrals: Laxmi Gutierrez MD [Primary Care Provider] - 2 days (for re-evaluation) Wound Care [facility] [Outside] - 2 days <Alisha Riddle NP - Last Filed: 04/12/21 12:47> Interventions: ED Discharge Assessment Last Done: 04/12/21 21:51 <Alisha Riddle NP - Last Filed: 04/12/21 12:47>
[2021-04-12 14:22] LABS: MANUAL DIFF FLAG NO
[2021-04-12 14:27] LABS: Basophils Percent Auto 0.6 % (0-2); Eosinophils Absolute Auto 0.1 X10*3/uL (0.0-0.4); Eosinophils Percent Auto 1.8 % (0-4); Hematocrit 37.7 % (37-47); Hemoglobin 11.8 g/dl (12.0-16.0); Imm Gran Abs Auto 0.01 X10*3/uL (0.00-0.03); Imm Gran Pct Auto 0.1 % (0.0-0.4); Lymphocytes Absolute Auto 1.5 X10*3/uL (1.2-4.9); Mean Corpuscular HGB Conc 31.3 g/dl (31.0-35.0); Mean Corpuscular Hemoglobin 29.3 pg (27.0-33.0); Mean Corpuscular Volume 93.5 fL (80-98); Mean Platelet Volume 10.8 fL (9.4-12.3); Monocytes Absolute Auto 0.6 X10*3/uL (0.1-1.2); Monocytes Percent Auto 8.4 % (2-11); Neutrophils Absolute Auto 4.8 X10*3/uL (2.0-8.3); Neutrophils Percent Auto 68.1 % (45-73); Platelet Count 152 X10*3/uL (160-400); Red Blood Count 4.03 X10*6/uL (4.20-5.50); Red Cell Distribution Width 13.7 % (11.0-16.0); White Blood Count 7.1 X10*3/uL (4.8-10.8)
[2021-04-12 14:35] LABS: Lactic Acid 1.1 mmol/L (0.5-2.0)
[2021-04-12 14:50] LABS: Alanine Aminotransferase < 6 U/L (0-31); Albumin Level 3.6 g/dL (3.5-5.0); Alkaline Phosphatase 83 U/L (39-117); Anion Gap 12 (12-20); Aspartate Amino Transferase 13 U/L (5-31); Bilirubin Direct 0.4 mg/dL (0.0-0.5); Bilirubin Total 0.7 mg/dL (0.0-1.0); Blood Urea Nitrogen 21 mg/dL (9-16); Calcium 9.1 mg/dL (8.4-10.2); Carbon Dioxide 32 mmol/L (22-29); Chloride 99 mmol/L (96-108); Creatinine Clr Calc Pharmacy 29.1; Estimated Glomerular Filt Rate 34; Glucose Random 105 mg/dL (60-115); Potassium 3.4 mmol/L (3.3-5.1); Sodium 140 mmol/L (135-145); Total Protein 8.2 g/dL (6.5-8.0)
[2021-04-12 15:17] LABS: Erythrocyte Sedimentation Rate 79 MM/HR (0-20)
[2021-04-12 17:29] VITALS: BP 114/70; PULSE 98; RESP 16; O2SAT 95
--- NOTE | 2021-04-12 17:31 | PC.NURSE ---
Second bld cx sent. Iv estbalished in prep for IV abx here in ED. Right lower leg wrapped with indio. +CMS
[2021-04-12] MEDS: cefTRIAXone sodium 1 GM in 0.9 % Sodium Chloride 50 ML IV (17:56)
[2021-04-12 18:22] LABS: B Type Natriuretic Peptide 140 pg/mL (<100)
[2021-04-12] MEDS: Doxycycline Hyclate 100 MG in 0.9 % Sodium Chloride 250 ML 166.67 MG IV (18:42)
[2021-04-12 19:01] VITALS: BP 119/81; PULSE 94; RESP 16; TEMP 36.7; O2SAT 99
[2021-04-12 19:22] LABS: INTERNATIONAL NORM RATIO 1.6 (0.9-1.1); Prothrombin Time 18.7 SEC (9.9-13.0)
[2021-04-12 20:31] VITALS: BP 149/91; PULSE 87; RESP 16; TEMP 36.7; O2SAT 95
[2021-04-12] MEDS: Furosemide 40 MG/4 ML VIAL IVPUSH (21:49)
[2021-04-12 21:50] VITALS: BP 128/79; PULSE 82; RESP 18
== END 2021-04-12 22:00 | disposition home or self-care (01) ==
PROVIDERS: Nurse Practitioner Family; Physician Assistant; Emergency Provider Internal Medicine; PCP Internal Medicine
DX: L03.115 Cellulitis of right lower limb (principal); I10 Essential (primary) hypertension; R60.0 Localized edema; R06.02 Shortness of breath; I48.91 Unspecified atrial fibrillation; Z79.01 Long term (current) use of anticoagulants; Z79.899 Other long term (current) drug therapy
CPT/HCPCS: 36415; 71045; 80048; 80076; 83605; 83880; 85025; 85610; 85652; 86140; 87040; 93971; 96365; 96367; 96375; 99284; J0696; J1940

== ENCOUNTER 2021-04-23 09:21 | Emergency (ER) | payer MEDICARE, SELFPAY ==
[2021-04-23 09:47] VITALS: BP 106/60; PULSE 68; RESP 18; TEMP 36.6; O2SAT 99; BMI 32.8
--- NOTE | 2021-04-23 10:14 | ED.LOWEXIN ---
HPI - Extremity Injury (Lower) General Chief Complaint: Extremity Injury, Lower Stated Complaint: swollen r leg Time Seen by Provider: 04/23/21 09:41 Source: patient Mode of arrival: ambulatory Limitations: no limitations History of Present Illness HPI Narrative: 80-year-old female with a past medical history of hypertension, asthma, AFib chronically rate controlled on Coumadin, arthritis, congestive heart failure, hypothyroidism here with?complaints of increased swelling, and pain to right lower extremity X1 week. According to patient, and patient's son she was recently seen her in the hospital, for cellulitis, she was treated with antibiotics, and sent home on antibiotics by mouth which seemed to not help. Son is concerned because his mother is complaining of increased swelling, and pain to the area. She is currently applying zinc oxide to the area, but has ran out of topical antibiotics. Denies chest pain, shortness of breath, fevers chills, nausea, vomiting, weakness, fatigue. MD complaint: other Onset (ago): week(s) (1) Severity: moderate Relieving factors: nothing Exacerbating factors: nothing Other symptoms: none Related Data Home Medications Medication Instructions Recorded Confirmed albuterol sulfate 2.5 mg INHALATION QID PRN 02/04/21 02/05/21 albuterol sulfate 90 mcg/actuation 1 puff INHALATION Q4H PRN 02/04/21 02/05/21 aerosol inhaler calcium carbonate 600 mg (1,500 1 tab PO BID 02/04/21 02/05/21 mg)-vitamin D3 400 unit tablet cholecalciferol (vitamin D3) 50 50 mcg PO DAILY 02/04/21 02/05/21 mcg (2,000 unit) capsule (Vitamin D3) diltiazem HCl 120 mg capsule,24 120 mg PO BID 02/04/21 02/05/21 hr,extended release ferrous sulfate 325 mg (65 mg 325 mg PO DAILY 02/04/21 02/05/21 iron) tablet (FeroSul) fluticasone 500 mcg-salmeterol 50 1 puff INHALATION BID 02/04/21 02/05/21 mcg/dose blistr powdr for inhalation (Wixela Inhub) furosemide 80 mg tablet 80 mg PO DAILY 02/04/21 02/05/21 levothyroxine 50 mcg tablet 50 mcg PO DAILY 02/04/21 02/05/21 loratadine 10 mg tablet 10 mg PO DAILY 02/04/21 02/05/21 midodrine 5 mg tablet 5 mg PO TID 02/04/21 02/05/21 montelukast 10 mg tablet 10 mg PO DAILY 02/04/21 02/05/21 omeprazole 20 mg capsule,delayed 20 mg PO DAILY 02/04/21 02/05/21 release potassium chloride 10 mEq 10 meq PO BID 02/04/21 02/05/21 tablet,extended release warfarin 2.5 mg tablet 5 mg PO DAILY 02/04/21 02/05/21 Previous Rx's Medication Instructions Recorded clotrimazole 1 % topical cream 1 appl TOPICAL DAILY #30 g 02/04/21 doxycycline monohydrate 100 mg 100 mg PO BID #20 cap 02/04/21 capsule mupirocin 2 % topical ointment 1 appl TOPICAL DAILY #15 g 02/04/21 cefuroxime axetil 250 mg tablet 250 mg PO BID #22 tab 02/08/21 cephalexin 500 mg capsule 500 mg PO QID 7 Days #28 cap 04/12/21 clotrimazole 1 % topical cream 1 appl TOPICAL DAILY 7 Days #45 g 04/12/21 doxycycline hyclate 100 mg tablet 100 mg PO BID 7 Days #14 tab 04/12/21 mupirocin 2 % topical ointment 1 appl TOPICAL DAILY #22 g 04/12/21 clotrimazole 1 % topical cream 1 appl TOPICAL BID #45 g 04/23/21 doxycycline hyclate 100 mg capsule 100 mg PO BID 10 Days #20 cap 04/23/21 mupirocin 2 % topical ointment 1 appl TOPICAL DAILY #22 g 04/23/21 Allergies Allergy/AdvReac Type Severity Reaction Status Date / Time lisinopril [LISINOPRIL] Allergy Unknown UNKNOWN Verified 02/05/21 21:56 simvastatin [SIMVASTATIN] Allergy Unknown UNKNOWN Verified 02/05/21 21:56 Review of Systems Review of Systems: Yes all other systems are reviewed and are negative Constitutional: Constitutional: Reports no additional constitutional complaints, Denies body ache(s), Denies chills, Denies fever(s), Denies headache(s) and Denies weakness Eyes: Eyes: Reports no additional eye complaints and Denies change in vision ENT: Reports system reviewed and no additional complaints, except as documented, Denies dizziness, Denies headache(s), Denies nasal congestion, Denies nasal discharge and Denies neck pain Cardiovascular: Cardiovascular: Reports no additional cardiovascular complaints, Denies chest pain, Denies leg edema and Denies dyspnea Respiratory: Respiratory: Reports no additional respiratory complaints, Denies cough and Denies dyspnea Gastrointestinal: Gastrointestinal: Reports no additional gastrointestinal complaints, Denies abdominal pain, Denies diarrhea, Denies nausea and Denies vomiting Genitourinary: Genitourinary: Reports no additional female genitourinary complaints and Denies urinary incontinence Musculoskeletal: Musculoskeletal: Reports no additional musculoskeletal complaints, Denies back pain, Denies arthralgias, Denies joint swelling, Denies neck pain, Denies numbness, Denies tingling and Reports other (right lower extremity swelling and pain. ) Integumentary/Breasts: Skin/Breast: Reports system reviewed and no additional complaints, except as docu and Denies rash Neurologic: Reports system reviewed and no additional complaints, except as documented, Denies Abnormal speech present, Denies dizziness, Denies headache(s), Denies numbness, Denies tingling and Denies weakness [facility] Past Medical History Attestation statement: The following information was validated with the patient. Source: old records reviewed and nursing notes reviewed Medical History Afib Asthma CHF (congestive heart failure) HTN (hypertension) Hypothyroid Surgical History S/P hip replacement Social History Social History Household Members: None Housing: Apartment Do you presently have visiting nurse or other home services: Yes Alcohol intake: never Patient Tobacco Use Status: Never used Tobacco Use of substances other than those prescribed or required for medical reasons: No Advance Directives: No service: No Current occupational status: disabled Physical Exam Vital Signs: Vital Signs: Last Vital Signs Temp 97.9 F 04/23/21 09:47 Pulse 68 04/23/21 09:47 Resp 18 04/23/21 09:47 BP 106/60 04/23/21 09:47 Pulse Ox 99 04/23/21 09:47 Body Mass Index 32.8 Const: General: cooperative, healthy appearing, comfortable and no acute distress Orientation/consciousness: patient oriented x3 Limitations: no limitations HENMT: Head: Yes normal to inspection Ears: hearing grossly normal bilaterally General nose exam: Normal external nose present Face and sinus: Yes normal facial exam Mouth: Normal oral and palatal mucosa present Throat: Yes posterior oropharynx normal Eyes: General: appearance normal, both eyes and all related structures Pupils: Equal, round and reactive pupils present Neck: Neck: Yes normal visual inspection Chest: Chest palpation & inspection: normal inspection of the chest Resp: Effort & Inspection: normal respiratory effort Auscultation: clear to auscultation bilaterally Cardio: Rate: regular rate Rhythm: regular rhythm Peripheral pulses: Peripheral pulses 2+ throughout GI: Inspection: Yes normal to inspection Palpation (GI): Soft to palpation and nontender Auscultation: normal bowel sounds Back/Spine/Pelvis: Thoracic/Lumbar Spine: thoracic and lumbar spine normal to inspection Skin: Other: Picture shows right lower extremity, there is induration above wound proximal to area of discoloration, increased pigmentation, no open wounds. No overlying calor or erythema. There is overlying zinc oxide cream applied to the area. Distal pulses palpated 2+ and strength, negative Homans sign Neuro: General: patient oriented x3, no focal motor deficits and normal sensation to monofilament Cranial nerves: Yes Equal, round and reactive pupils present Cognition (Neuro): normal cognition Speech: No Abnormal speech present Gait exam (Neuro): Normal gait present Motor exam (neuro): 5/5 motor strength present throughout Extrem: General: Yes normal to inspection Course Reevaluation(s) Reevaluation #1: Labs show no acute infection, BUN and creatinine are slightly elevated, however this appears to be patient's baseline. CRP is 2.9 a however it was higher in the past. ESR 81, similar to previous on 04/12/21. BNP is 148. PTT 24.6 INR 2.1. There is a baseline anemia noted, no leukocytosis at this time. Time: 11:24 Reevaluation #2: After reviewing patient's labs, and previous visits, and previous hospitalist note it appears as though these are chronic findings. Patient will be discharged home on doxycycline, mupirocin ointment, and clotrimazole ointment. Patient and son have also been advised to wrap the right lower extremity with an Parminder bandage, to help with inflammation. They were offered additional services at home to assist with wound care and wrapping of the legs but tell us that they have adequate resources with visiting nurses already MDM - Extremity Injury (Lower) MDM Narrative Medical decision making narrative: 80-year-old female pmhx of htn, asthma, AFib on coumadin, arthritis, CHF, hypothyroidism presents with right lower extremity swelling and pain X1 week. To note patient was recently admitted here from 02/05/2021 to 02/08/2021 E coli bacteremia, and cellulitis. She was treated with antibiotics here, and discharged home with cefuroxime p.o. b.i.d. for 11 days. Son reports that despite antibiotic use, swelling and pain have been progressively worsening. She has been here multiple times, with the same complaint. She has been treated with multiple courses of antibiotics, she has had multiple lower extremity venous Dopplers, which have been negative, last one on 04/12/2021. Her history, and physical exam are not consistent with pulmonary embolism. She is also reached out to wound care, which told her they will not see her, because she does not have an open wound. Upon physical exam. Right lower extremity- induration above wound proximal to area of discoloration, increased pigmentation, no open wounds. No overlying calor or erythema. There is overlying zinc oxide cream applied to the area. Distal pulses palpated 2+ and strength, negative Homans sign. Sensory motor intact to bilateral lower extremities. Cap refill less than 2. VSS Plan- basic labs, PT INR, BNP, CRP. ESR, lactic acid Medical Records Attestation: I reviewed the patient's medical records. Lab Data Attestation: I reviewed the patient's lab results. Result diagrams: 04/23/21 10:34 04/23/21 10:33 Labs: Lab Results 04/23/21 04/23/21 04/23/21 Range/Units 10:33 10:33 10:33 WBC (4.8-10.8) X10*3/uL RBC (4.20-5.50) X10*6/uL Hgb (12.0-16.0) g/dl Hct (37-47) % MCV (80-98) fL MCH (27.0-33.0) pg MCHC (31.0-35.0) g/dl RDW (11.0-16.0) % Plt Count (160-400) X10*3/uL MPV (9.4-12.3) fL Immature Gran % (Auto) (0.0-0.4) % Neut % (Auto) (45-73) % Lymph % (Auto) (20-40) % [place] % (Auto) (2-11) % Eos % (Auto) (0-4) % Baso % (Auto) (0-2) % Lymph # (Auto) (1.2-4.9) X10*3/uL [place] # (Auto) (0.1-1.2) X10*3/uL Eos # (Auto) (0.0-0.4) X10*3/uL Baso # (Auto) (0.0-0.2) X10*3/uL Abs Immat Gran (auto) (0.00-0.03) X10*3/uL Absolute Neuts (auto) (2.0-8.3) X10*3/uL Absolute Nucleated RBC (0.0-0.012) X10*3/uL Nucleated RBC % (auto) (0.0-0.2) /100WBC ESR (0-20) MM/HR PT (9.9-13.0) SEC INR (0.9-1.1) Sodium 142 (135-145) mmol/L Potassium 3.6 (3.3-5.1) mmol/L Chloride 101 (96-108) mmol/L Carbon Dioxide 34 H (22-29) mmol/L Anion Gap 11 L (12-20) BUN 22 H (9-16) mg/dL Creatinine 1.48 H (0.5-1.4) mg/dL Estim Creat Clear Calc 31.1 Estimated GFR 34 Random Glucose 98 (60-115) mg/dL Lactic Acid 1.1 (0.5-2.0) mmol/L Calcium 8.8 (8.4-10.2) mg/dL C-Reactive Protein 2.98 H (< or = 0.50) mg/dL B-Natriuretic Peptide 146 H (<100) pg/mL 04/23/21 04/23/21 04/23/21 Range/Units 10:34 10:34 10:34 WBC 4.8 (4.8-10.8) X10*3/uL RBC 3.80 L (4.20-5.50) X10*6/uL Hgb 10.8 L (12.0-16.0) g/dl Hct 35.7 L (37-47) % MCV 93.9 (80-98) fL MCH 28.4 (27.0-33.0) pg MCHC 30.3 L (31.0-35.0) g/dl RDW 13.3 (11.0-16.0) % Plt Count 236 D (160-400) X10*3/uL MPV 10.3 (9.4-12.3) fL Immature Gran % (Auto) 0.4 (0.0-0.4) % Neut % (Auto) 52.0 (45-73) % Lymph % (Auto) 34.1 (20-40) % [place] % (Auto) 8.3 (2-11) % Eos % (Auto) 4.0 (0-4) % Baso % (Auto) 1.2 (0-2) % Lymph # (Auto) 1.6 (1.2-4.9) X10*3/uL [place] # (Auto) 0.4 (0.1-1.2) X10*3/uL Eos # (Auto) 0.2 (0.0-0.4) X10*3/uL Baso # (Auto) 0.1 (0.0-0.2) X10*3/uL Abs Immat Gran (auto) 0.02 (0.00-0.03) X10*3/uL Absolute Neuts (auto) 2.5 (2.0-8.3) X10*3/uL Absolute Nucleated RBC 0.000 (0.0-0.012) X10*3/uL Nucleated RBC % (auto) 0.0 (0.0-0.2) /100WBC ESR 81 H (0-20) MM/HR PT 24.6 H (9.9-13.0) SEC INR 2.1 H (0.9-1.1) Sodium (135-145) mmol/L Potassium (3.3-5.1) mmol/L Chloride (96-108) mmol/L Carbon Dioxide (22-29) mmol/L Anion Gap (12-20) BUN (9-16) mg/dL Creatinine (0.5-1.4) mg/dL Estim Creat Clear Calc Estimated GFR Random Glucose (60-115) mg/dL Lactic Acid (0.5-2.0) mmol/L Calcium (8.4-10.2) mg/dL C-Reactive Protein (< or = 0.50) mg/dL B-Natriuretic Peptide (<100) pg/mL Discharge Plan Discharge Clinical Impression: Swelling of right lower extremity, Chronic cellulitis Patient Disposition: Home, Self-Care Instructions: Cellulitis (ED) Additional Instructions: You labs today showed no signs of acute infection. Take antibiotics as prescribed, dont miss any doses, Wrap lower extremity with PARMINDER wrap, remove it for skin checks daily. Please follow-up with your primary care provider Please return to the emergency department with new or worsening symptoms, or if you develop fevers, severe pain, or redness around the area. Prescriptions: New doxycycline hyclate 100 mg capsule 100 mg PO BID 10 Days Qty: 20 RF: 0 clotrimazole 1 % cream 1 appl topical BID Qty: 45 RF: 0 mupirocin 2 % ointment 1 appl topical DAILY Qty: 22 RF: 0 No Action albuterol sulfate 2.5 mg /3 mL (0.083 %) solution for nebulization 2.5 mg inhalation QID PRN (Reason: Wheezing) RF: 0 midodrine 5 mg tablet 5 mg PO TID RF: 0 warfarin 2.5 mg tablet 5 mg PO DAILY RF: 0 potassium chloride 10 mEq tablet extended release 10 meq PO BID RF: 0 furosemide 80 mg tablet 80 mg PO DAILY RF: 0 diltiazem HCl 120 mg capsule,extended release 24 hr 120 mg PO BID RF: 0 levothyroxine 50 mcg tablet 50 mcg PO DAILY RF: 0 ferrous sulfate [FeroSul] 325 mg (65 mg iron) tablet 325 mg PO DAILY RF: 0 fluticasone propion-salmeterol [Wixela Inhub] 500-50 mcg/dose blister with device 1 puff inhalation BID RF: 0 omeprazole 20 mg capsule,delayed release(DR/EC) 20 mg PO DAILY RF: 0 montelukast 10 mg tablet 10 mg PO DAILY RF: 0 loratadine 10 mg tablet 10 mg PO DAILY RF: 0 calcium carbonate-vitamin D3 600 mg(1,500mg) -400 unit tablet 1 tab PO BID RF: 0 cholecalciferol (vitamin D3) [Vitamin D3] 50 mcg (2,000 unit) capsule 50 mcg PO DAILY RF: 0 albuterol sulfate 90 mcg/actuation HFA aerosol inhaler 1 puff inhalation Q4H PRN (Reason: Wheezing) RF: 0 doxycycline monohydrate 100 mg capsule 100 mg PO BID Qty: 20 RF: 0 mupirocin 2 % ointment 1 appl topical DAILY Qty: 15 RF: 0 clotrimazole 1 % cream 1 appl topical DAILY Qty: 30 RF: 0 cefuroxime axetil 250 mg tablet 250 mg PO BID Qty: 22 RF: 0 cephalexin 500 mg capsule 500 mg PO QID 7 Days Qty: 28 RF: 0 doxycycline hyclate 100 mg tablet 100 mg PO BID 7 Days Qty: 14 RF: 0 clotrimazole 1 % cream 1 appl topical DAILY 7 Days Qty: 45 RF: 0 mupirocin 2 % ointment 1 appl topical DAILY Qty: 22 RF: 0 Referrals: Laxmi Gutierrez MD [Primary Care Provider] - 2 days Discharge Date/Time: 04/23/21 12:17
[2021-04-23 10:45] LABS: MANUAL DIFF FLAG NO
[2021-04-23 10:50] LABS: Basophils Absolute Auto 0.1 X10*3/uL (0.0-0.2); Basophils Percent Auto 1.2 % (0-2); Eosinophils Absolute Auto 0.2 X10*3/uL (0.0-0.4); Hematocrit 35.7 % (37-47); Hemoglobin 10.8 g/dl (12.0-16.0); Imm Gran Abs Auto 0.02 X10*3/uL (0.00-0.03); Imm Gran Pct Auto 0.4 % (0.0-0.4); Lymphocytes Absolute Auto 1.6 X10*3/uL (1.2-4.9); Lymphocytes Percent Auto 34.1 % (20-40); Mean Corpuscular HGB Conc 30.3 g/dl (31.0-35.0); Mean Corpuscular Hemoglobin 28.4 pg (27.0-33.0); Mean Corpuscular Volume 93.9 fL (80-98); Mean Platelet Volume 10.3 fL (9.4-12.3); Monocytes Absolute Auto 0.4 X10*3/uL (0.1-1.2); Monocytes Percent Auto 8.3 % (2-11); Neutrophils Absolute Auto 2.5 X10*3/uL (2.0-8.3); Platelet Count 236 X10*3/uL (160-400); Red Cell Distribution Width 13.3 % (11.0-16.0); White Blood Count 4.8 X10*3/uL (4.8-10.8)
[2021-04-23 10:52] LABS: INTERNATIONAL NORM RATIO 2.1 (0.9-1.1); Prothrombin Time 24.6 SEC (9.9-13.0)
[2021-04-23 11:00] LABS: Lactic Acid 1.1 mmol/L (0.5-2.0)
[2021-04-23 11:01] LABS: Anion Gap 11 (12-20); Blood Urea Nitrogen 22 mg/dL (9-16); C Reactive Protein 2.98 mg/dL (< or = 0.50); Calcium 8.8 mg/dL (8.4-10.2); Carbon Dioxide 34 mmol/L (22-29); Chloride 101 mmol/L (96-108); Creatinine Clr Calc Pharmacy 31.1; Estimated Glomerular Filt Rate 34; Glucose Random 98 mg/dL (60-115); Potassium 3.6 mmol/L (3.3-5.1); Sodium 142 mmol/L (135-145)
[2021-04-23 11:07] LABS: B Type Natriuretic Peptide 146 pg/mL (<100)
[2021-04-23 11:38] LABS: Erythrocyte Sedimentation Rate 81 MM/HR (0-20)
== END 2021-04-23 12:17 | disposition home or self-care (01) ==
PROVIDERS: Nurse Practitioner Family; Emergency Provider Emergency Medicine; PCP Internal Medicine
DX: L03.115 Cellulitis of right lower limb (principal); I11.0 Hypertensive heart disease with heart failure; I50.9 Heart failure, unspecified; D64.9 Anemia, unspecified; I48.91 Unspecified atrial fibrillation; J45.909 Unspecified asthma, uncomplicated; Z79.01 Long term (current) use of anticoagulants
CPT/HCPCS: 36415; 80048; 83605; 83880; 85025; 85610; 85652; 86140; 87040; 99283; 99284

== ENCOUNTER 2021-05-03 09:23 | Inpatient (IN) | payer MEDICARE, SELFPAY ==
--- NOTE | ~2021-05-03 | XR_ITS ---
EXAMINATION: XR FOOT, RIGHT CLINICAL INFORMATION: Rule out osteomyelitis lateral right heel COMPARISON: None TECHNIQUE: AP, lateral, and oblique views of the right foot. FINDINGS: Bone alignment is normal. No acute fracture or dislocation is seen. There is cortical thickening of the distal fibular shaft questionable for changes related to old trauma. There are mild degenerative changes of the first MTP joint. Joint spaces are otherwise normal. There are calcaneal spurs. No x-ray evidence of osteomyelitis. There is soft tissue arterial calcification. XR/XR foot RT 2V IMPRESSION: No x-ray evidence of osteomyelitis. Calcaneal spurs.
[2021-05-03 09:57] VITALS: BP 106/64; PULSE 82; RESP 18; TEMP 35.5; O2SAT 97; BMI 32.8
[2021-05-03 11:31] VITALS: BP 102/66; PULSE 88; RESP 13; TEMP 36.1; O2SAT 97
--- NOTE | 2021-05-03 11:40 | ED_ITS ---
HPI - Extremity Problem General Chief complaint: Extremity Problem Stated complaint: swollen r leg Time Seen by Provider: 05/03/21 10:56 Source: patient and family Mode of arrival: wheelchair Limitations: no limitations History of Present Illness HPI Narrative: Patient comes emergency room complaining of right lower extremity cellulitis. Patient states that she has been treated multiple times for the same infection in the right lower extremity. Patient finished a course of antibiotics 2 days ago. Patient took doxycycline. Patient states that her pain is becoming more erythematous, more painful, and now has foul discharge. Patient denies fever or chills. At home, patient has been applying topical zinc oxide and mupirocin. Patient denies fever or chills. Related Data Home Medications Medication Instructions Recorded Confirmed albuterol sulfate 2.5 mg INHALATION QID PRN 02/04/21 02/05/21 albuterol sulfate 90 mcg/actuation 1 puff INHALATION Q4H PRN 02/04/21 02/05/21 aerosol inhaler calcium carbonate 600 mg (1,500 1 tab PO BID 02/04/21 02/05/21 mg)-vitamin D3 400 unit tablet cholecalciferol (vitamin D3) 50 50 mcg PO DAILY 02/04/21 02/05/21 mcg (2,000 unit) capsule (Vitamin D3) diltiazem HCl 120 mg capsule,24 120 mg PO BID 02/04/21 02/05/21 hr,extended release ferrous sulfate 325 mg (65 mg 325 mg PO DAILY 02/04/21 02/05/21 iron) tablet (FeroSul) fluticasone 500 mcg-salmeterol 50 1 puff INHALATION BID 02/04/21 02/05/21 mcg/dose blistr powdr for inhalation (Wixela Inhub) furosemide 80 mg tablet 80 mg PO DAILY 02/04/21 02/05/21 levothyroxine 50 mcg tablet 50 mcg PO DAILY 02/04/21 02/05/21 loratadine 10 mg tablet 10 mg PO DAILY 02/04/21 02/05/21 midodrine 5 mg tablet 5 mg PO TID 02/04/21 02/05/21 montelukast 10 mg tablet 10 mg PO DAILY 02/04/21 02/05/21 omeprazole 20 mg capsule,delayed 20 mg PO DAILY 08/12/21 08/13/21 release potassium chloride 10 mEq 10 meq PO BID 02/04/21 02/05/21 tablet,extended release warfarin 2.5 mg tablet 5 mg PO DAILY 02/04/21 02/05/21 Previous Rx's Medication Instructions Recorded clotrimazole 1 % topical cream 1 appl TOPICAL DAILY #30 g 02/04/21 doxycycline monohydrate 100 mg 100 mg PO BID #20 cap 02/04/21 capsule mupirocin 2 % topical ointment 1 appl TOPICAL DAILY #15 g 02/04/21 cefuroxime axetil 250 mg tablet 250 mg PO BID #22 tab 02/08/21 cephalexin 500 mg capsule 500 mg PO QID 7 Days #28 cap 04/12/21 clotrimazole 1 % topical cream 1 appl TOPICAL DAILY 7 Days #45 g 04/12/21 doxycycline hyclate 100 mg tablet 100 mg PO BID 7 Days #14 tab 04/12/21 mupirocin 2 % topical ointment 1 appl TOPICAL DAILY #22 g 04/12/21 clotrimazole 1 % topical cream 1 appl TOPICAL BID #45 g 04/23/21 doxycycline hyclate 100 mg capsule 100 mg PO BID 10 Days #20 cap 04/23/21 mupirocin 2 % topical ointment 1 appl TOPICAL DAILY #22 g 04/23/21 Allergies Allergy/AdvReac Type Severity Reaction Status Date / Time lisinopril [LISINOPRIL] Allergy Unknown UNKNOWN Verified 02/05/21 21:56 simvastatin [SIMVASTATIN] Allergy Unknown UNKNOWN Verified 02/05/21 21:56 Review of Systems Review of Systems: Constitutional : No Weight loss, No Fever, No Chills, No N ight Sweats, No Fatigue, No Malaise ENT/Mouth : No Hearing loss, No Ear Pain, No Nasal Congestion, No Sinus Pain, No Hoarseness, No sore throat, No Rhinorrhea, No Swallowing Difficulty Eyes: No Eye Pain, No Swelling, No Redness, No Foreign Body, No Discharge, No Vision Changes Cardiovascular : No Chest Pain, No SOB, No Dyspnea on Exertion, No Orthopnea, No Edema, No Palpitations Respiratory : No Cough, No Sputum, No Wheezing, No Smoke Exposure, No Dyspnea Gastrointestinal : No Nausea, No Vomiting, No Diarrhea, No Constipation, No abdominal Pain, No Hematochezia, No Melena Genitourinary : no irregular bleeding, No Dysuria, No Urinary Frequency, No Hematuria, No Urinary Incontinence, No Urgency, No Flank Pain, No Urinary Flow Changes, No Hesitancy Musculoskeletal : No joint pain, No Myalgias, No Joint Swelling Skin : Worsening erythema, new blisters and foul-smelling discharge from the ri ght lower extremity Neuro : No Weakness, No Numbness, No Paresthesias, No Loss of Consciousness, No Dizziness, No Headache Psych : No Anxiety/Panic, No Depression, No SI/HI/AH/VH, No Social Issues, Heme/Lymph: No Bruising, No Bleeding,No Lymphadenopathy Endocrine : No Polyuria, No Polydipsia, No Temperature Intolerance [facility] Past Medical History Medical History Afib Asthma CHF (congestive heart failure) HTN (hypertension) Hypothyroid Surgical History S/P hip replacement Social History Social History Household Members: None Housing: Apartment Do you presently have visiting nurse or other home services: Yes Alcohol intake: never Patient Tobacco Use Status: Never used Tobacco Advance Directives: Yes Advance Directives on File: Yes Advance Directives Date on File: 02/05/21 service: No Current occupational status: disabled Physical Exam Vital Signs: Vital Signs: Last Vital Signs Temp 96.9 F 05/03/21 11:31 Pulse 88 05/03/21 11:31 Resp 13 05/03/21 11:31 BP 102/66 05/03/21 11:31 Pulse Ox 97 05/03/21 11:31 Body Mass Index 32.8 Const: Other: Appearance: Alert. Oriented X3. No acute distress. Eyes: Pupils equal, round and reactive to light. ENT: Pharynx normal. Neck: Normal inspection. Neck supple. No lymph nodes noted. No crepitus CVS: Normal heart rate and rhythm. Pulses normal. Normal S1 and S2 Respiratory: No respiratory distress. Breath sounds normal. No Wheezing. No rales Abdomen: Soft and nontender. No rigidity. No distention. good BS x4 Skin: Skin warm and dry. See skin below Extremities: Bilateral chronic venous stasis. Right lower extremity with losing fluid, no open wounds, skin is erythematous, painful to touch, boggy 2 cm x 2 cm area beside the lateral malleolus Neuro: Oriented X 3. No motor deficit. No sensory deficit. Moving all extermities. No slurred speech. Course Course Course Narrative: Patient failed outpatient treatment for cellulitis. Patient's worsened. I discussed the patient with Dr. Feng, patient being admitted for cellulitis. Sepsis is not suspected. Patient received 1 dose of Zosyn. MDM - Extremity (Nontraumatic) Lab Data Result diagrams: 05/03/21 12:00 05/03/21 12:00 Labs: Lab Results 05/03/21 05/03/21 05/03/21 Range/Units 12:00 12:00 12:00 WBC 9.6 (4.8-10.8) X10*3/uL RBC 4.00 L (4.20-5.50) X10*6/uL Hgb 11.6 L (12.0-16.0) g/dl Hct 37.4 (37.0-47.0) % MCV 93.5 (80.0-98.0) fL MCH 29.0 (27.0-33.0) pg MCHC 31.0 (31.0-35.0) g/dl RDW 13.5 (11.0-16.0) % Plt Count 165 (160-400) X10*3/uL MPV 11.2 (9.4-12.3) fL Immature Gran % (Auto) 0.3 (0.0-0.4) % Neut % (Auto) 77.1 H (45-73) % Lymph % (Auto) 14.5 L (20-40) % [place] % (Auto) 6.6 (2-11) % Eos % (Auto) 1.2 (0-4) % Baso % (Auto) 0.3 (0-2) % Lymph # (Auto) 1.4 (1.2-4.9) X10*3/uL [place] # (Auto) 0.6 (0.1-1.2) X10*3/uL Eos # (Auto) 0.1 (0.0-0.4) X10*3/uL Baso # (Auto) 0.0 (0.0-0.2) X10*3/uL Abs Immat Gran (auto) 0.03 (0.00-0.03) X10*3/uL Absolute Neuts (auto) 7.4 (2.0-8.3) x10*3/uL Absolute Nucleated RBC 0.000 (0.0-0.012) X10*3/uL Nucleated RBC % (auto) 0.0 (0.0-0.2) /100WBC PT (9.9-13.0) SEC INR (0.9-1.1) Sodium 137 (135-145) mmol/L Potassium 4.1 (3.3-5.1) mmol/L Chloride 97 (96-108) mmol/L Carbon Dioxide 31 H (22-29) mmol/L Anion Gap 13 (12-20) BUN 35 H D (9-16) mg/dL Creatinine 1.99 H (0.5-1.4) mg/dL Estim Creat Clear Calc 22.7 Estimated GFR 24 Random Glucose 156 H (60-115) mg/dL Lactic Acid (0.5-2.0) mmol/L Calcium 8.8 (8.4-10.2) mg/dL Total Bilirubin 0.6 (0.0-1.0) mg/dL Direct Bilirubin 0.3 (0.0-0.5) mg/dL AST 15 (5-31) U/L ALT 9 (0-31) U/L Alkaline Phosphatase 79 (39-117) U/L B-Natriuretic Peptide 125 H (<100) pg/mL Total Protein 7.7 (6.5-8.0) g/dL Albumin 3.2 L (3.5-5.0) g/dL 05/03/21 05/03/21 Range/Units 12:33 12:33 WBC (4.8-10.8) X10*3/uL RBC (4.20-5.50) X10*6/uL Hgb (12.0-16.0) g/dl Hct (37.0-47.0) % MCV (80.0-98.0) fL MCH (27.0-33.0) pg MCHC (31.0-35.0) g/dl RDW (11.0-16.0) % Plt Count (160-400) X10*3/uL MPV (9.4-12.3) fL Immature Gran % (Auto) (0.0-0.4) % Neut % (Auto) (45-73) % Lymph % (Auto) (20-40) % [place] % (Auto) (2-11) % Eos % (Auto) (0-4) % Baso % (Auto) (0-2) % Lymph # (Auto) (1.2-4.9) X10*3/uL [place] # (Auto) (0.1-1.2) X10*3/uL Eos # (Auto) (0.0-0.4) X10*3/uL Baso # (Auto) (0.0-0.2) X10*3/uL Abs Immat Gran (auto) (0.00-0.03) X10*3/uL Absolute Neuts (auto) (2.0-8.3) x10*3/uL Absolute Nucleated RBC (0.0-0.012) X10*3/uL Nucleated RBC % (auto) (0.0-0.2) /100WBC PT 54.2 H (9.9-13.0) SEC INR 4.6 H D (0.9-1.1) Sodium (135-145) mmol/L Potassium (3.3-5.1) mmol/L Chloride (96-108) mmol/L Carbon Dioxide (22-29) mmol/L Anion Gap (12-20) BUN (9-16) mg/dL Creatinine (0.5-1.4) mg/dL Estim Creat Clear Calc Estimated GFR Random Glucose (60-115) mg/dL Lactic Acid 2.2 H* (0.5-2.0) mmol/L Calcium (8.4-10.2) mg/dL Total Bilirubin (0.0-1.0) mg/dL Direct Bilirubin (0.0-0.5) mg/dL AST (5-31) U/L ALT (0-31) U/L Alkaline Phosphatase (39-117) U/L B-Natriuretic Peptide (<100) pg/mL Total Protein (6.5-8.0) g/dL Albumin (3.5-5.0) g/dL Discharge Plan Discharge Clinical Impression: Cellulitis Patient Disposition: Admitted As Inpatient Prescriptions: No Action albuterol sulfate 2.5 mg /3 mL (0.083 %) solution for nebulization 2.5 mg inhalation QID PRN (Reason: Wheezing) RF: 0 midodrine 5 mg tablet 5 mg PO TID RF: 0 warfarin 2.5 mg tablet 5 mg PO DAILY RF: 0 potassium chloride 10 mEq tablet extended release 10 meq PO BID RF: 0 furosemide 80 mg tablet 80 mg PO DAILY RF: 0 diltiazem HCl 120 mg capsule,extended release 24 hr 120 mg PO BID RF: 0 levothyroxine 50 mcg tablet 50 mcg PO DAILY RF: 0 ferrous sulfate [FeroSul] 325 mg (65 mg iron) tablet 325 mg PO DAILY RF: 0 fluticasone propion-salmeterol [Wixela Inhub] 500-50 mcg/dose blister with device 1 puff inhalation BID RF: 0 omeprazole 20 mg capsule,delayed release(DR/EC) 20 mg PO DAILY RF: 0 montelukast 10 mg tablet 10 mg PO DAILY RF: 0 loratadine 10 mg tablet 10 mg PO DAILY RF: 0 calcium carbonate-vitamin D3 600 mg(1,500mg) -400 unit tablet 1 tab PO BID RF: 0 cholecalciferol (vitamin D3) [Vitamin D3] 50 mcg (2,000 unit) capsule 50 mcg PO DAILY RF: 0 albuterol sulfate 90 mcg/actuation HFA aerosol inhaler 1 puff inhalation Q4H PRN (Reason: Wheezing) RF: 0 doxycycline monohydrate 100 mg capsule 100 mg PO BID Qty: 20 RF: 0 mupirocin 2 % ointment 1 appl topical DAILY Qty: 15 RF: 0 clotrimazole 1 % cream 1 appl topical DAILY Qty: 30 RF: 0 cefuroxime axetil 250 mg tablet 250 mg PO BID Qty: 22 RF: 0 cephalexin 500 mg capsule 500 mg PO QID 7 Days Qty: 28 RF: 0 doxycycline hyclate 100 mg tablet 100 mg PO BID 7 Days Qty: 14 RF: 0 clotrimazole 1 % cream 1 appl topical DAILY 7 Days Qty: 45 RF: 0 mupirocin 2 % ointment 1 appl topical DAILY Qty: 22 RF: 0 doxycycline hyclate 100 mg capsule 100 mg PO BID 10 Days Qty: 20 RF: 0 clotrimazole 1 % cream 1 appl topical BID Qty: 45 RF: 0 mupirocin 2 % ointment 1 appl topical DAILY Qty: 22 RF: 0
[2021-05-03 12:05] LABS: MANUAL DIFF FLAG NO
[2021-05-03 12:07] LABS: Basophils Percent Auto 0.3 % (0-2); Eosinophils Absolute Auto 0.1 X10*3/uL (0.0-0.4); Eosinophils Percent Auto 1.2 % (0-4); Hematocrit 37.4 % (37.0-47.0); Hemoglobin 11.6 g/dl (12.0-16.0); Imm Gran Abs Auto 0.03 X10*3/uL (0.00-0.03); Imm Gran Pct Auto 0.3 % (0.0-0.4); Lymphocytes Absolute Auto 1.4 X10*3/uL (1.2-4.9); Lymphocytes Percent Auto 14.5 % (20-40); Mean Corpuscular Volume 93.5 fL (80.0-98.0); Mean Platelet Volume 11.2 fL (9.4-12.3); Monocytes Absolute Auto 0.6 X10*3/uL (0.1-1.2); Monocytes Percent Auto 6.6 % (2-11); Neutrophils Absolute Auto 7.4 x10*3/uL (2.0-8.3); Neutrophils Percent Auto 77.1 % (45-73); Platelet Count 165 X10*3/uL (160-400); Red Cell Distribution Width 13.5 % (11.0-16.0); White Blood Count 9.6 X10*3/uL (4.8-10.8)
[2021-05-03 12:32] LABS: Alanine Aminotransferase 9 U/L (0-31); Albumin Level 3.2 g/dL (3.5-5.0); Alkaline Phosphatase 79 U/L (39-117); Anion Gap 13 (12-20); Aspartate Amino Transferase 15 U/L (5-31); Bilirubin Direct 0.3 mg/dL (0.0-0.5); Bilirubin Total 0.6 mg/dL (0.0-1.0); Blood Urea Nitrogen 35 mg/dL (9-16); Calcium 8.8 mg/dL (8.4-10.2); Carbon Dioxide 31 mmol/L (22-29); Chloride 97 mmol/L (96-108); Creatinine Clr Calc Pharmacy 22.7; Estimated Glomerular Filt Rate 24; Glucose Random 156 mg/dL (60-115); Potassium 4.1 mmol/L (3.3-5.1); Sodium 137 mmol/L (135-145); Total Protein 7.7 g/dL (6.5-8.0)
[2021-05-03 12:37] LABS: B Type Natriuretic Peptide 125 pg/mL (<100)
[2021-05-03 12:49] LABS: INTERNATIONAL NORM RATIO 4.6 (0.9-1.1); Prothrombin Time 54.2 SEC (9.9-13.0)
[2021-05-03 12:57] LABS: Lactic Acid 2.2 mmol/L (0.5-2.0)
[2021-05-03 14:38] LABS: Reflex Lactate? Lactic Acid Added
[2021-05-03 16:13] LABS: ~Lactic Acid-LAB USE ONLY 1.9 mmol/L (0.5-2.0)
[2021-05-03] MEDS: Piperacillin Sodium/Tazobactam 3.375 GM in 0.9 % Sodium Chloride 50 ML IV (16:17)
[2021-05-03 16:22] LABS: C Reactive Protein 20.99 mg/dL (< or = 0.50)
--- NOTE | 2021-05-03 16:25 | PM.IMHP ---
History of Present Illness Date of Service: 05/03/21 Attending physician on admission: Annetta Feng Chief Complaint: right leg cellulitis 81-year-old female-PMH of COPD, AFib, CHF, hypothyroidism among others who presented hospital with a complaint right lower extremities swelling and pain for the last couple of weeks.? Patient was here a week back with cellulitis complaints and that time was discharged with p.o. doxycycline. As per the son : Patient is leg since then has some weepy discharge and some smelling. Patient denies any other complaints except has some pain in the lower leg area. Denies any new complaint of chest pain or shortness of breath or abdominal pain or fever or chills or nausea or vomiting Denies any cough Denies any weakness or numbness. pmhx: Afib Asthma CHF (congestive heart failure) HTN (hypertension) Hypothyroid. Review of Systems Review of Systems: As above. Yes all other systems are reviewed and are negative FORMERLY [facility], 1928–1983 Medical History Afib Asthma CHF (congestive heart failure) HTN (hypertension) Hypothyroid Pertinent family history: her son has varcose дмитрий dis. Surgical History S/P hip replacement Social History Household Members: None Housing: Apartment Do you presently have visiting nurse or other home services: Yes Alcohol intake: never Patient Tobacco Use Status: Never used Tobacco Advance Directives: Yes Advance Directives on File: Yes Advance Directives Date on File: 02/05/21 service: No Current occupational status: disabled Meds Allergies Allergy/AdvReac Type Severity Reaction Status Date / Time lisinopril [LISINOPRIL] Allergy Unknown UNKNOWN Verified 02/05/21 21:56 simvastatin [SIMVASTATIN] Allergy Unknown UNKNOWN Verified 02/05/21 21:56 Active Medications: Current Medications Piperacillin Sod/Tazobactam (Sod 2.25 gm/ Sodium Chloride) 50 mls @ 100 mls/hr IV Q6H [facility] Pharmacy Consult (Consult Rx Perform Med Rec) 1 each MISCELLANE ONCE PRN PRN Reason: Consult order Home Medications Medication Instructions Recorded Confirmed Last Taken Type albuterol sulfate 90 mcg/actuation 1 puff INHALATION Q4H PRN 02/04/21 05/03/21 Unknown History aerosol inhaler calcium carbonate 600 mg (1,500 1 tab PO BID 02/04/21 05/03/21 05/02/21 History mg)-vitamin D3 400 unit tablet cholecalciferol (vitamin D3) 50 50 mcg PO DAILY 02/04/21 05/03/21 05/02/21 History mcg (2,000 unit) capsule (Vitamin D3) diltiazem HCl 120 mg capsule,24 120 mg PO BID 02/04/21 05/03/21 05/02/21 History hr,extended release ferrous sulfate 325 mg (65 mg 325 mg PO DAILY 02/04/21 05/03/21 05/02/21 History iron) tablet (FeroSul) furosemide 80 mg tablet 80 mg PO DAILY 02/04/21 05/03/21 05/02/21 History levothyroxine 50 mcg tablet 50 mcg PO DAILY 02/04/21 05/03/21 05/02/21 History loratadine 10 mg tablet 10 mg PO DAILY 02/04/21 05/03/21 05/02/21 History midodrine 5 mg tablet 5 mg PO TID 02/04/21 05/03/21 05/02/21 History omeprazole 20 mg capsule,delayed 20 mg PO DAILY@0630 02/04/21 05/03/21 02/03/21 History release warfarin 2.5 mg tablet 5 mg PO DAILY 02/04/21 05/03/21 05/02/21 History fluticasone fur. 100 mcg-umeclid 1 puff INHALATION DAILY 05/03/21 05/03/21 05/02/21 History 62.5 mcg-vilant 25 mcg inhalat.powder (Trelegy Ellipta) omalizumab 150 mg subcutaneous 300 mg SUBCUT Q2W 05/03/21 05/03/21 Unknown History solution (Xolair) Physical Exam Vital Signs and Narrative: Vital Signs: Last Vital Signs Temp 96.9 F 05/03/21 11:31 Pulse 88 05/03/21 11:31 Resp 13 05/03/21 11:31 BP 102/66 05/03/21 11:31 Pulse Ox 97 05/03/21 11:31 Body Mass Index 32.8 Constitutional : Alert, oriented, not in distress Neck : Normal inspection, Supple Cardiovascular : irregular RRR, S1 S2, no lower extremity edema Respiratory : Good bilateral air entry,? no crackles, wheezes or rhonchi Gastrointestinal:? soft, lax, Normal bowel sounds, Non tender Skin : Warm, right lower extremity previous surgical ordonez with chronic skin changes and swelling in comparison to the left leg, somewhat weepy ,no erythema mild tenderness and small amount of clear drainage. Neurological : Alert & oriented x3, No focal deficit Results Labs CBC and Chem 7: 05/03/21 12:00 05/03/21 12:00 Labs: Laboratory Results - last 24 hr 05/03/21 05/03/21 05/03/21 12:00 12:00 12:00 MCV 93.5 MCH 29.0 MCHC 31.0 RDW 13.5 Plt Count 165 MPV 11.2 Immature Gran % (Auto) 0.3 Neut % (Auto) 77.1 H Lymph % (Auto) 14.5 L [place] % (Auto) 6.6 Eos % (Auto) 1.2 Baso % (Auto) 0.3 Lymph # (Auto) 1.4 [place] # (Auto) 0.6 Eos # (Auto) 0.1 Baso # (Auto) 0.0 Abs Immat Gran (auto) 0.03 Absolute Neuts (auto) 7.4 Absolute Nucleated RBC 0.000 Nucleated RBC % (auto) 0.0 Absolute Retic Cancelled Percent Retic Cancelled Immature Retic Fraction Cancelled Retic Hgb Equivalent Cancelled PT INR Anion Gap 13 Estim Creat Clear Calc 22.7 Estimated GFR 24 Random Glucose 156 H Lactic Acid Lactic Acid Fup @ 2Hr Calcium 8.8 Total Bilirubin 0.6 Direct Bilirubin 0.3 AST 15 ALT 9 Alkaline Phosphatase 79 C-Reactive Protein 20.99 H B-Natriuretic Peptide 125 H Total Protein 7.7 Albumin 3.2 L 05/03/21 05/03/21 05/03/21 12:33 12:33 15:42 MCV MCH MCHC RDW Plt Count MPV Immature Gran % (Auto) Neut % (Auto) Lymph % (Auto) [place] % (Auto) Eos % (Auto) Baso % (Auto) Lymph # (Auto) [place] # (Auto) Eos # (Auto) Baso # (Auto) Abs Immat Gran (auto) Absolute Neuts (auto) Absolute Nucleated RBC Nucleated RBC % (auto) Absolute Retic Percent Retic Immature Retic Fraction Retic Hgb Equivalent PT 54.2 H INR 4.6 H D Anion Gap Estim Creat Clear Calc Estimated GFR Random Glucose Lactic Acid 2.2 H* Lactic Acid Fup @ 2Hr 1.9 Calcium Total Bilirubin Direct Bilirubin AST ALT Alkaline Phosphatase C-Reactive Protein B-Natriuretic Peptide Total Protein Albumin Imaging Radiologist's Impressions: Impressions Foot X-Ray 05/03/21 11:44 IMPRESSION: No x-ray evidence of osteomyelitis. Calcaneal spurs. Assessment and Plan (1) Cellulitis: Qualifiers: Laterality: right Site of cellulitis: extremity Site of cellulitis of extremity: lower extremity Qualified Code(s): L03.115 - Cellulitis of right lower limb Status: Acute (2) JEN (acute kidney injury): Status: Acute 80 years old lady with PMH of COPD, AFib, CHF, hypothyroidism among others who presented hospital with a complaint right lower extremities swelling and pain for the last couple of weeks. cellulitis RLE- blood culturessent, ESR and CRP Lactic acidosis resolved, no fever or leukocytosis Failed outpatient antibiotic therapy with doxycycline. Will start Zosyn , pain control with oxycodone. Wound care,Id consult AFib: Supratherapeutic INR Continue Cardizem Hold warfarin for now CHF Hold Lasix Monitor intake and output jen on ckd: cr 1.99 usually ariound 1.4 -1.7 range Encouraged for p.o. hydration copd/asthma: continue home asthma medications ?DVT PPX Warfarin Above management discussed with patient son in detail length including use of antibiotic, hydration, holding diuretics, code status-they both understand and in agreement with the above plan, Patient full code, time spent 70 minutes. Quality Stroke Does the patient have a stroke diagnosis?: No VTE Prior VTE?: No VTE Risk Level:: Medical - moderate - high VTE Device Contraindication: N/A - Device Ordered VTE Drug Contraindication: N/A - Med Ordered
[2021-05-03 16:56] LABS: Erythrocyte Sedimentation Rate 85 MM/HR (0-20)
[2021-05-03 20:00] VITALS: BP 102/66; PULSE 84; RESP 13; TEMP 36.1; O2SAT 97
--- NOTE | 2021-05-03 20:52 | MHC.CM.PN ---
Addendum entered by Sayra Seymour 05/03/21 21:17: Wound care and ID pending. Original Note: CM met with pt in observation with bed assignment pending. A&Ox3. Uzbek speaking. BHAVANA reviewed and signed per protocol 05/03/2021@2029. HCP on file. HCP/son Nicko Rboerts ([phone]). Pt states she is fully vaccinated with Moderna and has her card at home. Pt lives alone and her son, Octavio is her BALE SEWER, 2 hours/daily except for Monday. [facility] services [facility] through [facility]. Pt uses a walker and has a wheelchair. Pt feels safe at home. Pt steadfastly refuses STR. Pt willing to have [facility] services for wound care and possibly PT. Will need PT evaluation. No referrals placed. CM to follow for d/c needs.
[2021-05-03 22:09] VITALS: BP 102/66; PULSE 84
[2021-05-03] MEDS: Calcium + Vitamin D 250 MG TABLET PO (22:09)
[2021-05-03] MEDS: Piperacillin Sodium/Tazobactam 2.25 GM in 0.9 % Sodium Chloride 50 ML IV (22:09)
[2021-05-03] MEDS: dilTIAZem HCL CD 120 MG CAP.ER.DEG PO (22:09)
[2021-05-04] VITALS (10 sets, daily range): BP systolic 92–107; BP diastolic 53–61; PULSE 70–114; RESP 16–18; TEMP 36.3–36.7; O2SAT 94–97
[2021-05-04] MEDS: Piperacillin Sodium/Tazobactam 2.25 GM in 0.9 % Sodium Chloride 50 ML IV ×2 (04:45→11:45)
[2021-05-04] MEDS: Levothyroxine Sodium 50 MCG TABLET PO (06:19)
[2021-05-04] MEDS: Omeprazole 20 MG CAPSULE.DR PO (06:19)
[2021-05-04] MEDS: Loratadine 10 MG TABLET PO (08:53)
[2021-05-04] MEDS: Cholecalciferol (Vitamin D3) 25 MCG TABLET 50 MCG PO (08:53)
[2021-05-04] MEDS: Ferrous Sulfate 324 MG TABLET.DR 325 MG PO (08:54)
[2021-05-04] MEDS: Midodrine HCl 5 MG TABLET PO ×3 (08:54→15:51)
[2021-05-04] MEDS: dilTIAZem HCL CD 120 MG CAP.ER.DEG PO (08:54)
[2021-05-04] MEDS: Calcium + Vitamin D 250 MG TABLET PO ×2 (08:55→21:33)
[2021-05-04 08:56] LABS: IDNOW Serial# 9DD0AD1C
[2021-05-04 08:57] LABS: COVID-19 Test Negative (Negative)
--- NOTE | 2021-05-04 09:52 | PC.NURSE ---
RIGHT LEG CELLULITUS, OOZING PT USING CREAMS, LOOSE WRAP APPLIED THIS MORING. REPORT GIVEN
[2021-05-04 10:07] LABS: Anion Gap 7 (12-20); Blood Urea Nitrogen 27 mg/dL (9-16); Calcium 8.3 mg/dL (8.4-10.2); Carbon Dioxide 38 mmol/L (22-29); Chloride 97 mmol/L (96-108); Creatinine Clr Calc Pharmacy 27.7; Estimated Glomerular Filt Rate 30; Glucose Random 95 mg/dL (60-115); Potassium 3.9 mmol/L (3.3-5.1); Sodium 138 mmol/L (135-145)
[2021-05-04] MEDS: Fluticasone/Vilanterol 100/25 BLST.W.DEV 1 PUFF INHALE (11:26)
[2021-05-04] MEDS: 0.9 % Sodium Chloride Flush 3 ML SYRINGE IVFLUSH ×2 (11:46→15:51)
--- NOTE | 2021-05-04 14:04 | P.PNIM_ITS ---
Subjective Subjective Date of Service: 05/04/21 Interval History: Patient seen and examined at bedside. Her son was the linotypist. She denies any fever, no chills at this time, pain has improved, swelling is the same, she denies any chest pain, no shortness of breath, no constipation, no urinary symptoms Review of Systems Review of Systems: Yes all other systems are reviewed and are negative Physical Exam Vital Signs: Vital Signs: Last Vital Signs Temp 97.8 F 05/04/21 10:49 Pulse 86 05/04/21 11:45 Resp 18 05/04/21 10:49 BP 107/57 L 05/04/21 11:45 Pulse Ox 97 05/04/21 10:49 Body Mass Index 32.8 Const: General: cooperative and no acute distress Orientation/consciousness: patient oriented x3 Resp: Effort & Inspection: normal respiratory effort, able to speak in complete sentences and abnormal respiratory pattern Auscultation: clear to auscultation bilaterally Cardio: Rate: regular rate Rhythm: regular rhythm GI: Palpation (GI): Soft to palpation Auscultation: normal bowel sounds Skin: Other: Has cellulitis of right lower extremity, wrapping in place, appears clean, and chronic skin changes of lymphedema General skin exam: no rashes or lesions noted Neuro: General: patient oriented x3 Extrem: Other: Bilateral edema, lymphadenopathy General: Yes normal to inspection Objective Data Active Medications Albuterol Sulfate (Albuterol Sulfate 90 Mcg 8 Gm Inhaler) 1 puff INHALE Q4H PRN PRN Reason: Wheezing Calcium Carbonate/Cholecalciferol (Calcium + Vitamin D 250 Mg Tablet) 250 mg PO BID [facility] Last Admin: 05/04/21 08:55 Dose: 250 mg Documented by: RAMU Diltiazem HCl (Diltiazem Hcl Cd 120 Mg Cap.Er.Deg) 120 mg PO BID [facility]; Protocol Last Admin: 05/04/21 08:54 Dose: 120 mg Documented by: RAMU Ferrous Sulfate (Ferrous Sulfate 324 Mg Tablet.Dr) 325 mg PO DAILY [facility] Last Admin: 05/04/21 08:54 Dose: 325 mg Documented by: RAMU Fluticasone/Vilanterol (Fluticasone/Vilanterol 100/25 Blst.W.Dev) 1 puff INHALE RDAILY [facility] Last Admin: 05/04/21 11:26 Dose: 1 puff Documented by: ANGELICA Piperacillin Sod/Tazobactam (Sod 2.25 gm/ Sodium Chloride) 50 mls @ 100 mls/hr IV Q6H [facility] Last Infusion: 05/04/21 12:15 Dose: 0 mls/hr Documented by: RASHAWN Levothyroxine Sodium (Levothyroxine Sodium 50 Mcg Tablet) 50 mcg PO DAILY@0630 [facility] Last Admin: 05/04/21 06:19 Dose: 50 mcg Documented by: GARTH Loratadine (Loratadine 10 Mg Tablet) 10 mg PO DAILY [facility] Last Admin: 05/04/21 08:53 Dose: 10 mg Documented by: RAMU Midodrine (Midodrine Hcl 5 Mg Tablet) 5 mg PO TIDAC [facility] Last Admin: 05/04/21 11:45 Dose: 5 mg Documented by: RASHAWN Mupirocin (Mupirocin 2 % Oint 22 Gm Tube) 1 appl TOPICAL DAILY [facility]; Protocol Last Admin: 05/04/21 11:46 Dose: Not Given Documented by: RASHAWN Non-Admin Reason: applied in ed with dressing change Omeprazole (Omeprazole 20 Mg Capsule.Dr) 20 mg PO DAILY@0630 [facility] Last Admin: 05/04/21 06:19 Dose: 20 mg Documented by: GARTH Oxycodone HCl (Oxycodone Hcl Immed Release 5 Mg Tablet) 5 mg PO Q6H PRN PRN Reason: Pain, Severe (Pain Scale 7-10) Pharmacy Consult (Consult Rx Perform Med Rec) 1 each MISCELLANE ONCE PRN PRN Reason: Consult order Sodium Chloride (0.9 % Sodium Chloride Flush 3 Ml Syringe) 3 ml IVFLUSH QSHIFT [facility] Last Admin: 05/04/21 11:46 Dose: 3 ml Documented by: RASHAWN Tiotropium [place] (Tiotropium [place] 18 Mcg Cap.W.Dev) 1 puff INHALE RDAILY S Last Admin: 05/04/21 11:26 Dose: 1 puff Documented by: ANGELICA Vitamin D (Cholecalciferol (Vitamin D3) 25 Mcg Tablet) 50 mcg PO DAILY [facility] Last Admin: 05/04/21 08:53 Dose: 50 mcg Documented by: RAMU Labs CBC & Chem 7: 05/03/21 12:00 05/04/21 09:19 Labs: Laboratory Results - last 24 hr 05/03/21 05/03/21 05/03/21 12:00 12:00 12:00 ESR 85 H Absolute Retic Cancelled Percent Retic Cancelled Immature Retic Fraction Cancelled Retic Hgb Equivalent Cancelled Anion Gap Estim Creat Clear Calc Estimated GFR Random Glucose Lactic Acid Fup @ 2Hr Calcium C-Reactive Protein 20.99 H COVID-19 ([facility]IS) COVID-19 Clin Com 05/03/21 05/04/21 05/04/21 15:42 08:36 09:19 ESR Absolute Retic Percent Retic Immature Retic Fraction Retic Hgb Equivalent Anion Gap 7 L Estim Creat Clear Calc 27.7 Estimated GFR 30 Random Glucose 95 Lactic Acid Fup @ 2Hr 1.9 Calcium 8.3 L C-Reactive Protein COVID-19 ([facility]ARIS) Negative COVID-19 Clin Com See Note Assessment and Plan (1) JEN (acute kidney injury): Status: Acute Assessment and Plan: This is a 81-year-old female past medical history of COPD, AFib, CHF, hypothyroidism presents to the hospital after failing outpatient therapy for right lower extremity cellulitis # right lower extremity cellulitis: Failed outpatient therapy - started on IV antibiotics - pending cultures - had lactic acidosis that has now resolved - continue Zosyn - wound care - id consult pending # JEN - baseline creatinine of 1.3, presented with a creatinine of 1.99, improving today is 1.63 - continue po hydration - follow bmp # AFib - supratherapeutic INR - held last night warfarin - will resume once INR therapeutic - follwo PT/INR - continue diltiazem # CHF - not in exacerbation - follow volume status - Lasix held due to JEN - will resume in a.m. if JEN improves # asthma/COPD - not in exacerbation - continue home inhalers DVT prophylaxis: On warfarin (2) Cellulitis: Status: Acute Quality Stroke Does the patient have a stroke diagnosis?: No VTE Prior VTE?: No VTE Risk Level:: Medical - moderate - high VTE Device Contraindication: N/A - Device Ordered VTE Drug Contraindication: N/A - Med Ordered
[2021-05-04 14:54] LABS: INTERNATIONAL NORM RATIO 3.9 (0.9-1.1); Prothrombin Time 45.3 SEC (9.9-13.0)
--- NOTE | 2021-05-04 15:08 | W.PM.IDCN ---
History of Present Illness Data of Consult Service Date: 05/04/21 Requesting physician: Junito Mustafa Primary Care Provider: Laxmi Gutierrez MD HPI Reason for consult: swelling right leg She presents with swelling and redness and leakage of right leg with scaling for last month. She has received Keflex 04/12 7 days and Doxycycline 04/12 7 days She also received 10 days Doxycycline started 04/23 She had fever thought by son couple days ago. She has no fever or chills or leukocytosis here. She had venous procedure she said on leg in past and has firm area on thigh. Review of Systems Review of Systems: Yes all other systems are reviewed and are negative PMFSH Past Medical History Medical History (Updated 05/04/21 @ 15:12 by Eleni Kraus MD) Afib Asthma CHF (congestive heart failure) HTN (hypertension) Hypothyroid Venous stasis dermatitis Venous stasis dermatitis of right lower extremity Family History Family history: reviewed and not pertinent Surgical History Surgical History S/P hip replacement Social History Social History Household Members: None Housing: Apartment Do you presently have visiting nurse or other home services: Yes Alcohol intake: unknown Patient Tobacco Use Status: Never used Tobacco Second Hand Smoke Exposure: No Advance Directives Date on File: 02/05/21 service: No Current occupational status: disabled Meds Allergies Allergy/AdvReac Type Severity Reaction Status Date / Time lisinopril [LISINOPRIL] Allergy Unknown UNKNOWN Verified 02/05/21 21:56 simvastatin [SIMVASTATIN] Allergy Unknown UNKNOWN Verified 02/05/21 21:56 Active Medications: Current Medications Albuterol Sulfate (Albuterol Sulfate 90 Mcg 8 Gm Inhaler) 1 puff INHALE Q4H PRN PRN Reason: Wheezing Calcium Carbonate/Cholecalciferol (Calcium + Vitamin D 250 Mg Tablet) 250 mg PO BID [facility]S [facility] 234 BEDS AT THE [facility] Last Admin: 05/04/21 08:55 Dose: 250 mg Documented by: Diltiazem HCl (Diltiazem Hcl Cd 120 Mg Cap.Er.Deg) 120 mg PO BID [facility]S [facility]CLUDE 234 BEDS AT THE [facility]; Protocol Last Admin: 05/04/21 08:54 Dose: 120 mg Documented by: Ferrous Sulfate (Ferrous Sulfate 324 Mg Tablet.Dr) 325 mg PO DAILY COUNTS INCLUDE 234 BEDS AT THE [facility] Last Admin: 05/04/21 08:54 Dose: 325 mg Documented by: Fluticasone/Vilanterol (Fluticasone/Vilanterol 100/25 Blst.W.Dev) 1 puff INHALE RDAILY COUNTS INCLUDE 234 BEDS AT THE [facility] Last Admin: 05/04/21 11:26 Dose: 1 puff Documented by: Levothyroxine Sodium (Levothyroxine Sodium 50 Mcg Tablet) 50 mcg PO DAILY@0630 COUNTS INCLUDE 234 BEDS AT THE [facility] Last Admin: 05/04/21 06:19 Dose: 50 mcg Documented by: Loratadine (Loratadine 10 Mg Tablet) 10 mg PO DAILY [facility]S INCLUDE 234 BEDS AT THE [facility] Last Admin: 05/04/21 08:53 Dose: 10 mg Documented by: Midodrine (Midodrine Hcl 5 Mg Tablet) 5 mg PO TIDAC COUNTS INCLUDE 234 BEDS AT THE [facility] Last Admin: 05/04/21 11:45 Dose: 5 mg Documented by: Mupirocin (Mupirocin 2 % Oint 22 Gm Tube) 1 appl TOPICAL DAILY [facility]S INCLUDE 234 BEDS AT THE [facility]; Protocol Last Admin: 05/04/21 11:46 Dose: Not Given Documented by: Omeprazole (Omeprazole 20 Mg Capsule.) 20 mg PO DAILY@0630 COUNTS INCLUDE 234 BEDS AT THE [facility] Last Admin: 05/04/21 06:19 Dose: 20 mg Documented by: Oxycodone HCl (Oxycodone Hcl Immed Release 5 Mg Tablet) 5 mg PO Q6H PRN PRN Reason: Pain, Severe (Pain Scale 7-10) Pharmacy Consult (Consult Rx Perform Med Rec) 1 each MISCELLANE ONCE PRN PRN Reason: Consult order Sodium Chloride (0.9 % Sodium Chloride Flush 3 Ml Syringe) 3 ml IVFLUSH QSHIFT COUNTS INCLUDE 234 BEDS AT THE [facility] Last Admin: 05/04/21 11:46 Dose: 3 ml Documented by: Tiotropium [place] (Tiotropium [place] 18 Mcg Cap.W.Dev) 1 puff INHALE RDAILY COUNTS INCLUDE 234 BEDS AT THE [facility] Last Admin: 05/04/21 11:26 Dose: 1 puff Documented by: Vitamin D (Cholecalciferol (Vitamin D3) 25 Mcg Tablet) 50 mcg PO DAILY COUNTS INCLUDE 234 BEDS AT THE [facility] Last Admin: 05/04/21 08:53 Dose: 50 mcg Documented by: Home Medications Medication Instructions Recorded Confirmed Last Taken Type albuterol sulfate 90 mcg/actuation 1 puff INHALATION Q4H PRN 02/04/21 05/03/21 Unknown History aerosol inhaler calcium carbonate 600 mg (1,500 1 tab PO BID 02/04/21 05/03/21 05/02/21 History mg)-vitamin D3 400 unit tablet cholecalciferol (vitamin D3) 50 50 mcg PO DAILY 02/04/21 05/03/21 05/02/21 History mcg (2,000 unit) capsule (Vitamin D3) diltiazem HCl 120 mg capsule,24 120 mg PO BID 02/04/21 05/03/21 05/02/21 History hr,extended release ferrous sulfate 325 mg (65 mg 325 mg PO DAILY 02/04/21 05/03/21 05/02/21 History iron) tablet (FeroSul) furosemide 80 mg tablet 80 mg PO DAILY 02/04/21 05/03/21 05/02/21 History levothyroxine 50 mcg tablet 50 mcg PO DAILY 02/04/21 05/03/21 05/02/21 History loratadine 10 mg tablet 10 mg PO DAILY 02/04/21 05/03/21 05/02/21 History midodrine 5 mg tablet 5 mg PO TID 02/04/21 05/03/21 05/02/21 History omeprazole 20 mg capsule,delayed 20 mg PO DAILY@0630 02/04/21 05/03/21 02/03/21 History release warfarin 2.5 mg tablet 5 mg PO DAILY 02/04/21 05/03/21 05/02/21 History fluticasone fur. 100 mcg-umeclid 1 puff INHALATION DAILY 05/03/21 05/03/21 05/02/21 History 62.5 mcg-vilant 25 mcg inhalat.powder (Trelegy Ellipta) omalizumab 150 mg subcutaneous 300 mg SUBCUT Q2W 05/03/21 05/03/21 Unknown History solution (Xolair) Physical Exam Vital Signs: Vital Signs: Last Vital Signs Temp 97.8 F 05/04/21 10:49 Pulse 86 05/04/21 11:45 Resp 18 05/04/21 10:49 BP 107/57 L 05/04/21 11:45 Pulse Ox 97 05/04/21 10:49 Body Mass Index 32.8 Const: General: cooperative Eyes: General: appearance normal, both eyes and all related structures Pupils: Equal, round and reactive pupils present Resp: Effort & Inspection: normal respiratory effort Cardio: Rate: regular rate Rhythm: regular rhythm GI: Palpation (GI): Soft to palpation and nontender Skin: General skin exam: no rashes or lesions noted Neuro: Cranial nerves: Yes Equal, round and reactive pupils present Extrem: Other: ichtyosis and venous stasis dermatitis right leg Results Labs CBC & Chem 7: 05/03/21 12:00 05/04/21 09:19 Labs: BMP 05/04/21 09:19 Sodium 138 Potassium 3.9 Chloride 97 Carbon Dioxide 38 H BUN 27 H Creatinine 1.63 H Calcium 8.3 L Microbiology Microbiology Results: Microbiology 05/03/21 12:33 Blood - Venous Blood Culture - Preliminary No growth after 24 hours. 05/03/21 12:00 Blood - Venous Blood Culture - Preliminary No growth after 24 hours. Assessment and Plan (1) Venous stasis dermatitis: Status: Acute She has venous stasis disease and has no leukocytosis fever or infection seen on XR Not sure how prior elevated lactic acid relates if at all She has had prior procedure right leg and small nodule thigh (2) Venous stasis dermatitis of right lower extremity: Status: Acute Would stop IV antibiotics as area shows only venous stasis at this time Patient show see Vascular ?compression
--- NOTE | 2021-05-04 15:36 | PC.NURSE ---
Skin assessment completed. Patient has cellulitis to right lower leg with wet open superficial ulcers. Silver alginate applied to wet ulcers and Woundres applied to red area on anterior ankle, all covered with non woven gauze and roll gauze. Parminder wrap applied on right lower leg to reduce edema.
[2021-05-04] MEDS: oxyCODONE HCl Immed Release 5 MG TABLET PO (21:33)
[2021-05-05] VITALS (8 sets, daily range): BP systolic 91–110; BP diastolic 51–65; PULSE 83–90; RESP 18–20; TEMP 36.5–37.1; O2SAT 93–98
--- NOTE | 2021-05-05 01:17 | PM.EVENT ---
Event Note Date of Service: 05/17/21 Event Note: Bacteremia: Blood cultures growing Gram-positive cocci in clusters. Final levels pending. Will start the patient on vancomycin empirically. Id consult on board.
[2021-05-05] MEDS: vancomycin HCL 1,000 MG in 0.9 % Sodium Chloride 250 ML 270 MG IV (02:41)
[2021-05-05] MEDS: Levothyroxine Sodium 50 MCG TABLET PO (05:26)
[2021-05-05] MEDS: Omeprazole 20 MG CAPSULE.DR PO (05:26)
[2021-05-05] MEDS: Fluticasone/Vilanterol 100/25 BLST.W.DEV 1 PUFF INHALE (07:30)
[2021-05-05 07:36] LABS: INTERNATIONAL NORM RATIO 2.8 (0.9-1.1); Prothrombin Time 32.8 SEC (9.9-13.0)
[2021-05-05 07:38] LABS: Anion Gap 10 (12-20); Blood Urea Nitrogen 22 mg/dL (9-16); Calcium 7.9 mg/dL (8.4-10.2); Carbon Dioxide 33 mmol/L (22-29); Chloride 100 mmol/L (96-108); Creatinine Clr Calc Pharmacy 33.2; Estimated Glomerular Filt Rate 37; Glucose Random 79 mg/dL (60-115); Potassium 4.1 mmol/L (3.3-5.1); Sodium 139 mmol/L (135-145)
[2021-05-05] MEDS: Calcium + Vitamin D 250 MG TABLET PO ×2 (08:47→19:23)
[2021-05-05] MEDS: Cholecalciferol (Vitamin D3) 25 MCG TABLET 50 MCG PO (08:47)
[2021-05-05] MEDS: Midodrine HCl 5 MG TABLET PO ×3 (08:47→16:55)
[2021-05-05] MEDS: Loratadine 10 MG TABLET PO (08:47)
[2021-05-05] MEDS: Ferrous Sulfate 324 MG TABLET.DR 325 MG PO (08:47)
[2021-05-05] MEDS: 0.9 % Sodium Chloride Flush 3 ML SYRINGE IVFLUSH ×2 (08:47→16:56)
[2021-05-05] MEDS: dilTIAZem HCL CD 120 MG CAP.ER.DEG PO ×2 (08:47→19:23)
[2021-05-05] MEDS: Mupirocin 2 % Oint 22 GM TUBE 1 APPL TOPICAL (08:48)
--- NOTE | 2021-05-05 13:13 | MHC.CM.PN ---
Female 81 DX LE Cellulitis No discharge today. Patient is Bacteremic. ID consult has been completed. DP home with [facility]. An update has been sent. Family will provide transportation home.
--- NOTE | 2021-05-05 13:55 | P.PNIM_ITS ---
Subjective Subjective Date of Service: 05/05/21 Interval History: Patient seen and examined at bedside with the help of an laser beam trim operator. She denies any fever, no chills at this time, no overnight events. She has no acute complaints at this time. She feels the same. she denies any chest pain, no shortness of breath, no constipation, no urinary symptoms Her cultures did grow Gram-positive cocci of overnight, patient was started on vancomycin by overnight physician. Review of Systems Review of Systems: Yes all other systems are reviewed and are negative Physical Exam Vital Signs: Vital Signs: Last Vital Signs Temp 97.7 F 05/05/21 12:00 Pulse 87 05/05/21 13:18 Resp 20 05/05/21 12:00 BP 101/65 05/05/21 13:18 Pulse Ox 96 05/05/21 12:00 Body Mass Index 32.8 Const: Other: Appearance: Alert. Oriented X3. No acute distress. Eyes: Pupils equal, round and reactive to light. ENT: Pharynx normal. Neck: Normal inspection. Neck supple. No lymph nodes noted. No crepitus CVS: Normal heart rate and rhythm. Pulses normal. Normal S1 and S2 Respiratory: No respiratory distress. Breath sounds normal. No Wheezing. No rales Abdomen: Soft and nontender. No rigidity. No distention. good BS x4 Skin: Skin warm and dry. See skin below Extremities: Bilateral chronic venous stasis. Right lower extremity with losing fluid, no open wounds, skin is erythematous, painful to touch, boggy 2 cm x 2 cm area beside the lateral malleolus Neuro: Oriented X 3. No motor deficit. No sensory deficit. Moving all exte rmities. No slurred speech. Orientation/consciousness: patient oriented x3 Eyes: Pupils: Equal, round and reactive pupils present Resp: Effort & Inspection: abnormal respiratory pattern Cardio: Rate: regular rate Rhythm: regular rhythm GI: Palpation (GI): Soft to palpation and nontender Auscultation: normal bowel sounds Skin: Other: Has cellulitis of right lower extremity, wrapping in place, appears clean, and chronic skin changes of lymphedema General skin exam: no rashes or lesions noted Neuro: General: patient oriented x3 Cranial nerves: Yes Equal, round and reactive pupils present Extrem: Other: ichtyosis and venous stasis dermatitis right leg General: Yes normal to inspection Objective Data Active Medications Albuterol Sulfate (Albuterol Sulfate 90 Mcg 8 Gm Inhaler) 1 puff INHALE Q4H PRN PRN Reason: Wheezing Calcium Carbonate/Cholecalciferol (Calcium + Vitamin D 250 Mg Tablet) 250 mg PO BID [facility] Last Admin: 05/05/21 08:47 Dose: 250 mg Documented by: ARMINDA Diltiazem HCl (Diltiazem Hcl Cd 120 Mg Cap.Er.Deg) 120 mg PO BID [facility]; Protocol Last Admin: 05/05/21 08:47 Dose: 120 mg Documented by: ARMINDA Ferrous Sulfate (Ferrous Sulfate 324 Mg Tablet.) 325 mg PO DAILY [facility] Last Admin: 05/05/21 08:47 Dose: 325 mg Documented by: ARMINDA Fluticasone/Vilanterol (Fluticasone/Vilanterol 100/25 Blst.W.Dev) 1 puff INHALE RDAILY [facility] Last Admin: 05/05/21 07:30 Dose: 1 puff Documented by: INESSA Vancomycin HCl 1,000 mg/ (Sodium Chloride) 270 mls @ 270 mls/hr IV Q24H [facility] Levothyroxine Sodium (Levothyroxine Sodium 50 Mcg Tablet) 50 mcg PO DAILY@0630 [facility] Last Admin: 05/05/21 05:26 Dose: 50 mcg Documented by: SHAWNA Loratadine (Loratadine 10 Mg Tablet) 10 mg PO DAILY [facility] Last Admin: 05/05/21 08:47 Dose: 10 mg Documented by: ARMINDA Midodrine (Midodrine Hcl 5 Mg Tablet) 5 mg PO TIDAC [facility] Last Admin: 05/05/21 13:18 Dose: 5 mg Documented by: ARMINDA Mupirocin (Mupirocin 2 % Oint 22 Gm Tube) 1 appl TOPICAL DAILY [facility]; Protocol Last Admin: 05/05/21 08:48 Dose: 1 appl Documented by: ARMINDA Omeprazole (Omeprazole 20 Mg Capsule.) 20 mg PO DAILY@0630 [facility] Last Admin: 05/05/21 05:26 Dose: 20 mg Documented by: SHAWNA Oxycodone HCl (Oxycodone Hcl Immed Release 5 Mg Tablet) 5 mg PO Q6H PRN PRN Reason: Pain, Severe (Pain Scale 7-10) Last Admin: 05/04/21 21:33 Dose: 5 mg Documented by: SHAWNA Pharmacy Consult (Consult Rx Perform Med Rec) 1 each MISCELLANE ONCE PRN PRN Reason: Consult order Pharmacy Consult (Consult Rx Vancomycin Dosing) 1 each MISCELLANE DAILY PRN PRN Reason: Consult order Sodium Chloride (0.9 % Sodium Chloride Flush 3 Ml Syringe) 3 ml IVFLUSH QSHIFT [facility] Last Admin: 05/05/21 08:47 Dose: 3 ml Documented by: ARMINDA Tiotropium [place] (Tiotropium [place] 18 Mcg Cap.W.Dev) 1 puff INHALE RDAILY [facility] Last Admin: 05/05/21 07:30 Dose: 1 puff Documented by: INESSA Vitamin D (Cholecalciferol (Vitamin D3) 25 Mcg Tablet) 50 mcg PO DAILY [facility] Last Admin: 05/05/21 08:47 Dose: 50 mcg Documented by: ARMINDA Warfarin Sodium (Warfarin Sodium 5 Mg Tablet) 5 mg PO DAILY@1800 [facility] Labs CBC & Chem 7: 05/03/21 12:00 05/05/21 06:50 Labs: Laboratory Results - last 24 hr 05/04/21 05/05/21 05/05/21 14:36 06:50 06:50 PT 45.3 H 32.8 H INR 3.9 H 2.8 H Anion Gap 10 L Estim Creat Clear Calc 33.2 Estimated GFR 37 Random Glucose 79 Calcium 7.9 L Microbiology Microbiology Results: Microbiology 05/03/21 12:33 Blood Culture - Preliminary Blood - Venous Prelim: GPC Gram Stain only 05/03/21 12:00 Blood Culture - Preliminary Blood - Venous No growth after 24 hours. Assessment and Plan (1) JEN (acute kidney injury): Status: Acute Assessment and Plan: This is a 81-year-old female past medical history of COPD, AFib, CHF, hypothyroidism presents to the hospital after failing outpatient therapy for right lower extremity cellulitis # right lower extremity cellulitis: Failed outpatient therapy - started on IV antibiotics - id feels that patient's skin changes are related to venous stasis and patient can discontinue antibiotics but she did develop Gram-positive cocci overnight, currently on IV antibiotics, blood cultures re-sent , awaiting further direction from Infectious Disease. - lactic acidosis has now resolved - wound care # JEN- resolved - Rougher Operator at baseline today - baseline creatinine of 1.3, presented with a creatinine of 1.99, # AFib - therapeutic INR - continue warfarin and diltiazem - daily PT INR # CHF - not in exacerbation - follow volume status - Lasix held due to JEN - can resume Lasix and morning # asthma/COPD - not in exacerbation - continue home inhalers DVT prophylaxis: On warfarin Disposition: Awaiting further culture Quality Stroke Does the patient have a stroke diagnosis?: No VTE Prior VTE?: No VTE Risk Level:: Medical - moderate - high VTE Device Contraindication: N/A - Device Ordered VTE Drug Contraindication: N/A - Med Ordered
[2021-05-05] MEDS: Warfarin Sodium 5 MG TABLET PO (16:55)
[2021-05-06] VITALS (7 sets, daily range): BP systolic 90–100; BP diastolic 52–62; PULSE 75–96; RESP 15–20; TEMP 36.6–36.8; O2SAT 96–98
[2021-05-06] MEDS: vancomycin HCL 1,000 MG in 0.9 % Sodium Chloride 250 ML 270 MG IV (02:18)
[2021-05-06] MEDS: 0.9 % Sodium Chloride Flush 3 ML SYRINGE IVFLUSH ×2 (02:19→09:25)
[2021-05-06] MEDS: Omeprazole 20 MG CAPSULE.DR PO (05:50)
[2021-05-06] MEDS: Levothyroxine Sodium 50 MCG TABLET PO (05:50)
[2021-05-06 07:24] LABS: Glucose, Whole Blood 77 mg/dL (60-115)
[2021-05-06] MEDS: Fluticasone/Vilanterol 100/25 BLST.W.DEV 1 PUFF INHALE (07:41)
[2021-05-06 07:43] LABS: INTERNATIONAL NORM RATIO 2.2 (0.9-1.1); Prothrombin Time 24.9 SEC (9.9-13.0)
[2021-05-06 08:17] LABS: Anion Gap 12 (12-20); Blood Urea Nitrogen 19 mg/dL (9-16); Calcium 7.9 mg/dL (8.4-10.2); Carbon Dioxide 30 mmol/L (22-29); Chloride 100 mmol/L (96-108); Creatinine Clr Calc Pharmacy 35.4; Estimated Glomerular Filt Rate 40; Glucose Random 79 mg/dL (60-115); Potassium 4.3 mmol/L (3.3-5.1); Sodium 138 mmol/L (135-145)
[2021-05-06] MEDS: Ferrous Sulfate 324 MG TABLET.DR PO (09:25)
[2021-05-06] MEDS: Cholecalciferol (Vitamin D3) 25 MCG TABLET 50 MCG PO (09:25)
[2021-05-06] MEDS: Loratadine 10 MG TABLET PO (09:25)
[2021-05-06] MEDS: Calcium + Vitamin D 250 MG TABLET PO (09:25)
[2021-05-06] MEDS: Midodrine HCl 5 MG TABLET PO ×3 (09:25→15:51)
[2021-05-06] MEDS: dilTIAZem HCL CD 120 MG CAP.ER.DEG PO (09:25)
[2021-05-06] MEDS: Mupirocin 2 % Oint 22 GM TUBE 1 APPL TOPICAL (09:40)
[2021-05-06 11:06] LABS: Glucose, Whole Blood 153 mg/dL (60-115)
--- NOTE | 2021-05-06 12:02 | PM.DS ---
DS: Providers Provider Date of Service: 05/06/21 <REAGAN Whittington - Last Filed: 05/06/21 14:52> Date of admission: 05/03/21 16:13 <REAGAN Whittington - Last Filed: 05/06/21 14:52> Date of discharge: 05/06/21 <REAGAN Whittington - Last Filed: 05/06/21 14:52> Primary care physician: Laxmi Gutierrez MD <REAGAN Whittington - Last Filed: 05/06/21 14:52> Consults: 05/03/21 16:41 Consult to Infectious Diseases Routine Consulting Provider: Eleni Kraus Reason for consultation: foot infection Has provider been notified: No <REAGAN Whittington - Last Filed: 05/06/21 14:52> Attending physician on discharge: Wil Mcneil <REAGAN Whittington - Last Filed: 05/06/21 14:52> Discharging clinician: Ilene Hunter <REAGAN Whittington - Last Filed: 05/06/21 14:52> DS: Diagnosis Discharge Diagnosis (1) JEN (acute kidney injury): Status: Acute <REAGAN Whittington - Last Filed: 05/06/21 14:52> (2) Venous stasis dermatitis of right lower extremity: Status: Acute <REAGAN Whittington - Last Filed: 05/06/21 14:52> DS: Summary Hospital Course Hospital Course: From H&P on day of admission 81-year-old female-PMH of COPD, AFib, CHF, hypothyroidism among others who presented hospital with a complaint right lower extremities swelling and pain for the last couple of weeks.? Patient was here a week back with cellulitis? complaints and that time was discharged with p.o. doxycycline. As per the son :? Patient is leg since then has some weepy discharge and some smelling. Patient was admitted to the hospital for right lower extremity cellulitis after failing outpatient treatment with oral antibiotics. She was started on IV Zosyn. She was evaluated by Infectious Diseases who felt that her right lower extremity skin changes were secondary to chronic venous stasis and antibiotics should be discontinued. 1/2 blood cultures grew coagulase-negative Staphylococcus which is likely a contaminant. Repeat blood cultures were negative times 24 hours. She was also noted to have JEN with a creatinine of 1.99, on day of discharge her renal function has improved to 1.28 after holding home dose of lasix. Dose of lasix will be decreased from 80 to 40mg daily. Should follow with PCP for follow up BMP, can uptitrate Lasix if needed. Recommend outpatient vascular surgery evaluation. She was evaluated by Physical therapy who recommended home physical therapy. She will be discharged home with visiting nurses to assist in daily wound management. Should resume outpatient INR check's Attending Attestation: I have personally seen and examined the patient independently, reviewed the NPP history, exam and?MDM and agree with the assessment and discharge plan as?written above. <REAGAN Whittington - Last Filed: 05/06/21 14:52> Time Spent with Patient Time attestation: Total time spent providing and/or coordinating discharge services: <REAGAN Whittington Last Filed: 05/06/21 14:52> Discharge coordination time: Greater than 30 minutes <REAGAN Whittington Last Filed: 05/06/21 14:52> Quality: Stroke Does the patient have a stroke diagnosis?: No <REAGAN Whittington Last Filed: 05/06/21 14:52> Physical Exam Vital Signs: Vital Signs: Last Vital Signs Temp 98.2 F 05/06/21 10:56 Pulse 78 05/06/21 10:56 Resp 18 05/06/21 10:56 BP 94/60 05/06/21 10:56 Pulse Ox 97 05/06/21 10:56 Body Mass Index 32.8 <REAGAN Whittington Last Filed: 05/06/21 14:52> Const: General: comfortable, no acute distress, alert and awake <REAGAN Whittington Last Filed: 05/06/21 14:52> Nutritional Appearance: well nourished <REAGAN Whittington Last Filed: 05/06/21 14:52> HENMT: Head: Yes normocephalic and Yes atraumatic <REAGAN Whittington Last Filed: 05/06/21 14:52> Eyes: Sclerae: sclerae normal <REAGAN Whittington Last Filed: 05/06/21 14:52> Resp: Effort & Inspection: normal respiratory effort and no respiratory distress <REAGAN Whittington - Last Filed: 05/06/21 14:52> Cardio: Rate: regular rate <REAGAN Whittington Last Filed: 05/06/21 14:52> Rhythm: regular rhythm <REAGAN Whittington Last Filed: 05/06/21 14:52> GI: Palpation (GI): Soft to palpation and nontender <REAGAN Whittington Last Filed: 05/06/21 14:52> Neuro: Cranial nerves: Yes CN's II-XII intact bilaterally and Yes Bilaterally intact EOM present <REAGAN Whittington Last Filed: 05/06/21 14:52> Extrem: Other: right leg wrapped in indio bandage <REAGAN Whittington - Last Filed: 05/06/21 14:52> DS: Data Data Completed and Pending Labs on day of discharge: Laboratory Results - last 24 hr 05/06/21 05/06/21 05/06/21 05:59 05:59 07:12 PT 24.9 H INR 2.2 H Sodium 138 Potassium 4.3 Chloride 100 Carbon Dioxide 30 H Anion Gap 12 BUN 19 H Creatinine 1.28 Estim Creat Clear Calc 35.4 Estimated GFR 40 POC Glucose 77 Random Glucose 79 Calcium 7.9 L 05/06/21 10:58 PT INR Sodium Potassium Chloride Carbon Dioxide Anion Gap BUN Creatinine Estim Creat Clear Calc Estimated GFR POC Glucose 153 H Random Glucose Calcium Preliminary micro results at discharge 05/05/21 09:17 Blood Culture - Preliminary Blood - Venous No growth after 24 hours. 05/05/21 09:17 Blood Culture - Preliminary Blood - Venous No growth after 24 hours. 05/03/21 12:00 Blood Culture - Preliminary Blood - Venous No growth after 48 hours. <REAGAN Whittington Last Filed: 05/06/21 14:52> Discharge Plan Discharge Patient Disposition: Home Health Service <REAGAN Whittington Last Filed: 05/06/21 14:52> Discharge Diagnosis: chronic venous stasis JEN <REAGAN Whittington - Last Filed: 05/06/21 14:52> chronic venous stasis JEN <Wil Mcneil MD - Last Filed: 05/07/21 08:07> Referrals: [facility] [Outside] - 1 Week Juan F Gabriel MD [Physician] - 1 Week Laxmi Gutierrez MD [Primary Care Provider] - 1 Week <REAGAN Whittington - Last Filed: 05/06/21 14:52> Discharge Medications: Continued midodrine 5 mg tablet 5 mg PO TID RF: 0 warfarin 2.5 mg tablet 5 mg PO DAILY RF: 0 diltiazem HCl 120 mg capsule,extended release 24 hr 120 mg PO BID RF: 0 levothyroxine 50 mcg tablet 50 mcg PO DAILY RF: 0 ferrous sulfate [FeroSul] 325 mg (65 mg iron) tablet 325 mg PO DAILY RF: 0 omeprazole 20 mg capsule,delayed release(DR/EC) 20 mg PO DAILY@0630 RF: 0 loratadine 10 mg tablet 10 mg PO DAILY RF: 0 calcium carbonate-vitamin D3 600 mg(1,500mg) -400 unit tablet 1 tab PO BID RF: 0 cholecalciferol (vitamin D3) [Vitamin D3] 50 mcg (2,000 unit) capsule 50 mcg PO DAILY RF: 0 albuterol sulfate 90 mcg/actuation HFA aerosol inhaler 1 puff inhalation Q4H PRN (Reason: Wheezing) RF: 0 Xolair 150 mg recon soln 300 mg subcut Q2W RF: 0 Trelegy Ellipta 100-62.5-25 mcg blister with device 1 puff inhalation DAILY RF: 0 mupirocin 2 % ointment 1 appl topical DAILY Qty: 22 RF: 0 Changed furosemide 80 mg tablet 40 mg PO DAILY Qty: 0 RF: 0 <REAGAN Whittington - Last Filed: 05/06/21 14:52> Discharge Orders: Discharge Order (Routine); Ordered 05/06/21 Ordered By: Ilene Hunter <REAGAN Whittington - Last Filed: 05/06/21 14:52> Diet: advance to usual diet <REAGAN Whittington - Last Filed: 05/06/21 14:52> advance to usual diet <Wil Mcneil MD - Last Filed: 05/07/21 08:07> Activity on Discharge: As tolerated <REAGAN Whittington - Last Filed: 05/06/21 14:52> As tolerated <Wil Mcneil MD - Last Filed: 05/07/21 08:07> Stand Alone Forms: Patient Portal Discharge page <REAGAN Whittington - Last Filed: 05/06/21 14:52> Care Plan Goals: stay healthy and out of the hospital <REAGAN Whittington - Last Filed: 05/06/21 14:52> Health Concerns: right leg venous stasis JEN <REAGAN Whittington - Last Filed: 05/06/21 14:52> Plan of Treatment: call to schedule appointment with vascular surgery no need for antibiotics Dose of lasix has been decreased please call to schedule follow up appointment with PCP <REAGAN Whittington - Last Filed: 05/06/21 14:52> Assessment: Admitted for concern of right lower extremity cellulitis found to have chronic venous stasis changes <REAGAN Whittington - Last Filed: 05/06/21 14:52> Discharge Date/Time: 05/06/21 21:00 <REAGAN Whittington - Last Filed: 05/06/21 14:52>
--- NOTE | 2021-05-06 14:56 | P.F2F_ITS ---
Service Date Service Date: 05/06/21 Encounter Date of encounter: 05/06/21 Reasons for Services Reason for long-term: wound care and monitoring of PT/INR Reason for physical therapy: home safety and mobility, therapeutic exercises and gait/transfer training Overseeing Care: Laxmi Gutierrez Homebound: Leaving the home is medically contraindicated at this time without the asist of a device and/or another person due th the listed conditions above and below. Reason homebound: unsteady gait / fall risk and weakness related to hospital stay Certification: Based on the above findings, I certify that this patient is confined to the home and needs intermittent long-term care, physical therapy and/or speech therapy, or continues to need occupational therapy. The patient is under my care, and I have initiated the establishment of the plan of care. The patient will be followed by a physician who will periodically review the plan of care.
[2021-05-06] MEDS: Warfarin Sodium 5 MG TABLET PO (16:16)
--- NOTE | 2021-05-06 17:23 | PC.NURSE ---
After cefepime pt increased redness and rashing all over body, santos on back. Pt not itching, no breath sound changes. Brought another RN to room to verify as pt had similar episode yesterday. Rn states about the same, notified. will cont to monitor pt s/s closely.
== END 2021-05-06 21:00 | disposition home health service (06) | DRG 300 ==
LOC: HO.ED 15:44 → HO.IMC 05-04 07:22 → HO.EDOVER 05-05 10:15
PROVIDERS: Internal Medicine; Admitting Provider Internal Medicine; Emergency Provider Emergency Medicine; PCP Internal Medicine; Visit Provider Physician Assistant Medical
DX: I87.2 Venous insufficiency (chronic) (peripheral) (principal); N17.9 Acute kidney failure, unspecified; I48.91 Unspecified atrial fibrillation; E03.9 Hypothyroidism, unspecified; R79.1 Abnormal coagulation profile; Z20.822 Contact with and (suspected) exposure to COVID-19; Z79.01 Long term (current) use of anticoagulants; Z79.890 Hormone replacement therapy; Z79.899 Other long term (current) drug therapy
CPT/HCPCS: 36415; 73620; 80048; 80076; 82947; 83605; 83880; 85025; 85610; 85652; 86140; 87040; 87147; 87205; 87635; 96365; 97161; 99284; 99285; J2543; J3370

== ENCOUNTER 2021-08-09 13:22 | Inpatient (IN) | payer MEDICARE, SELFPAY ==
[2021-08-09] VITALS (7 sets, daily range): BP systolic 89–95; BP diastolic 43–69; PULSE 71–105; RESP 16–24; TEMP 35.6–36.4; O2SAT 94–100; BMI 34.3
--- NOTE | ~2021-08-09 | US_ITS ---
EXAMINATION: ULTRASOUND EXTREMITY NONVASCULAR CLINICAL INFORMATION: Right leg cellulitis. COMPARISON: None TECHNIQUE: Grayscale and color imaging of the right calf FINDINGS: Exam is limited due to patient's difficulty maneuvering leg. No fluid collection or abscess is seen by ultrasound. There is a skin thickening. US/US extremity nonvascular IMPRESSION: Skin thickening. No abscess seen by ultrasound.
--- NOTE | ~2021-08-09 | US_ITS ---
EXAMINATION: US VENOUS ULTRASOUND WITH DOPPLER LOWER EXTREMITY, RIGHT CLINICAL INFORMATION: Pain and swelling COMPARISON: None TECHNIQUE: Ultrasound of the deep veins is performed from the hip to the calf with compression sonography and color and pulse Doppler assessment. Spectral analysis with color-flow imaging is performed. FINDINGS: There is normal venous compression and respiratory variation and augmented flow. The visualized common femoral vein, superficial femoral vein, profunda femoral vein, popliteal vein, and the trifurcation region shows no evidence of deep venous thrombosis. There is no significant popliteal fossa cyst. If the patient's symptoms persist, followup ultrasound in 5 days 7 days might be of value to exclude proximal propagation from a non-visualized calf vein. US/US venous duplex LE RT IMPRESSION: No DVT demonstrated in the right lower extremity. Exam somewhat limited by patient's body habitus.
--- NOTE | ~2021-08-09 | CT_ITS ---
EXAMINATION: CT SCAN OF THE RIGHT LOWER LEG WITHOUT CONTRAST CLINICAL INFORMATION: Right leg swelling, cellulitis. Evaluate for abscess. COMPARISON: X-rays of the right tibia and fibula December 2020 TECHNIQUE: CT scan of the right lower leg was performed without contrast with reconstruction imaging performed at the acquisition workstation. Imaging was performed from the knee to the ankle. FINDINGS: SUBCUTANEOUS SOFT TISSUES AND SKIN: There is generalized thickening of the skin throughout. There is diffuse stranding throughout the subcutaneous soft tissues compatible with edema , cellulitis or combination of these. I do not see a focal fluid collection. MUSCLES AND TENDONS: Increased fat density noted throughout the muscles compatible with generalized fatty infiltration likely age related. NEUROVASCULAR STRUCTURES: Prominent arterial calcification noted throughout. BONE AND PARTIALLY VISUALIZED JOINTS: The marrow is normal. I do not see a fracture. There is advanced osteoarthritis in the knee involving all 3 compartments manifested by joint space narrowing marginal osteophytes and subchondral cystic change. CT/CT lower leg RT wo con IMPRESSION: 1. No focal fluid collection that would be suspicious for abscess. 2. Generalized skin thickening. Abnormality in the subcutaneous soft tissues compatible with edema, cellulitis or a combination of these. 3. Generalized fatty infiltration of the muscles likely age-related. 4. Diffuse generalized calcific atherosclerotic disease. 5. Advanced osteoarthritis of the right knee.
--- NOTE | ~2021-08-09 | XR_ITS ---
EXAMINATION: XR CHEST CLINICAL INFORMATION: Bilateral leg swelling COMPARISON: Previous chest x-ray most recent March 2021 TECHNIQUE: Frontal view of the chest was obtained. FINDINGS: The cardiac silhouette is enlarged but stable. There is pulmonary venous redistribution. The lungs are otherwise clear. There is no pleural effusion or pneumothorax. There are degenerative changes of the spine and shoulders. XR/XR chest 1V IMPRESSION: Enlarged cardiac silhouette and pulmonary venous redistribution. No evidence of pulmonary edema.
--- NOTE | 2021-08-09 13:59 | ECG_ITS ---
Test Reason : EMY LEG SWELLING Blood Pressure : / mmHG Vent. Rate : 088 BPM Atrial Rate : 000 BPM P-R Int : 000 ms QRS Dur : 082 ms QT Int : 362 ms P-R-T Axes : 000 000 -27 degrees QTc Int : 438 ms Atrial fibrillation Anterior infarct , age undetermined Abnormal ECG When compared with ECG of 05-FEB-2021 16:10, No significant change was found Referred By: Generic ED Physician Electronically Signed By:TRENTON BURGESS MD
--- NOTE | 2021-08-09 14:14 | PC.NURSE ---
lungs - diminished maki lobes.
[2021-08-09 14:33] LABS: INTERNATIONAL NORM RATIO 3.7 (0.9-1.1); Prothrombin Time 43.5 SEC (9.9-13.0)
[2021-08-09 14:36] LABS: Partial Thromboplastin Time 51.1 SEC (24.1-38.0)
[2021-08-09 14:37] LABS: Lactic Acid 1.6 mmol/L (0.5-2.0)
[2021-08-09 14:43] LABS: Hematocrit 35.8 % (37.0-47.0); Hemoglobin 11.3 g/dl (12.0-16.0); Mean Corpuscular HGB Conc 31.6 g/dl (31.0-35.0); Mean Corpuscular Volume 91.8 fL (80.0-98.0); Mean Platelet Volume 11.7 fL (9.4-12.3); Platelet Count 180 X10*3/uL (160-400); Red Cell Distribution Width 14.8 % (11.0-16.0); White Blood Count 25.7 X10*3/uL (4.8-10.8)
[2021-08-09 14:47] LABS: COVID-19 Test Negative (Negative)
[2021-08-09 14:48] LABS: B Type Natriuretic Peptide 159 pg/mL (<100); Troponin-I High Sensitivity 9.9 ng/L (<3.5-17.0)
[2021-08-09 14:49] LABS: Anion Gap 13 (12-20); Blood Urea Nitrogen 42 mg/dL (9-16); Calcium 8.6 mg/dL (8.4-10.2); Carbon Dioxide 29 mmol/L (22-29); Chloride 99 mmol/L (96-108); Creatinine Clr Calc Pharmacy 19.8; Estimated Glomerular Filt Rate 20; Glucose Random 131 mg/dL (60-115); Potassium 3.6 mmol/L (3.3-5.1); Sodium 137 mmol/L (135-145)
[2021-08-09 15:23] LABS: Band Neutrophils Percent 19 % (3-5); Lymphocytes Percent Manual 4 % (20-40); Metamyelocytes Absolute 0.3 X10*3/uL; Metamyelocytes Percent 1 %; Myelocytes Absolute 0.3 X10*/uL; Myelocytes Percent 1 %; Neutrophils Absolute Manual 23.9 X10*3/uL (2.0-8.3); Neutrophils Percent Manual 74 % (45-73)
[2021-08-09 15:24] LABS: Monocytes Absolute Manual 0.3 X10*3/uL (0.1-1.2); Monocytes Percent Manual 1 % (2-11)
[2021-08-09 15:26] LABS: Dohle Bodies PRESENT; Polychromasia 1+ (0-2) /OIF; RBC Morphology NOTED; Toxic Vacuolation PRESENT
[2021-08-09 15:27] LABS: Large Platelet PRESENT; Platelet Estimate NORMAL (NORMAL); Platelet Morphology Comment NOTED
--- NOTE | 2021-08-09 17:43 | ED.GENADULT ---
HPI - General Adult General Chief complaint: General Medical Stated complaint: asthma leg discharge swelling Time Seen by Provider: 08/09/21 17:43 Source: patient and family Mode of arrival: wheelchair History of Present Illness HPI narrative: Patient with history of chronic asthma dependent leg edema on Xolair injections comes here for increased leg swelling for last few weeks getting worse for last few days with purulent discharge now especially the right leg also increased shortness of breath especially when she lays down with increased cough no fever no chills patient is on Coumadin for AFib. No vomiting no diarrhea Related Data Home Medications Medication Instructions Recorded Confirmed calcium carbonate 600 mg-vitamin 1 tab PO BID 02/04/21 08/09/21 D3 10 mcg (400 unit) tablet cholecalciferol (vitamin D3) 50 50 mcg PO DAILY 02/04/21 08/09/21 mcg (2,000 unit) capsule (Vitamin D3) diltiazem HCl 120 mg capsule,24 120 mg PO BID 02/04/21 08/09/21 hr,extended release ferrous sulfate 325 mg (65 mg 325 mg PO DAILY 02/04/21 08/09/21 iron) tablet (FeroSul) levothyroxine 50 mcg tablet 50 mcg PO DAILY 02/04/21 08/09/21 loratadine 10 mg tablet 10 mg PO DAILY 02/04/21 08/09/21 midodrine 5 mg tablet 5 mg PO TID 02/04/21 08/09/21 omeprazole 20 mg capsule,delayed 20 mg PO DAILY@0630 02/04/21 08/09/21 release warfarin 2.5 mg tablet 5 mg PO DAILY 02/04/21 08/09/21 fluticasone fur. 100 mcg-umeclid 1 puff INHALATION DAILY 05/03/21 08/09/21 62.5 mcg-vilant 25 mcg inhalat.powder (Trelegy Ellipta) omalizumab 150 mg subcutaneous 300 mg SUBCUT Q2W 05/03/21 08/09/21 solution (Xolair) albuterol sulfate 2.5 mg INHALATION Q4H PRN 08/09/21 08/09/21 furosemide 40 mg tablet 1 tab PO DAILY 08/09/21 08/09/21 montelukast 10 mg tablet 1 tab PO DAILY 08/09/21 08/09/21 Allergies Allergy/AdvReac Type Severity Reaction Status Date / Time lisinopril [LISINOPRIL] Allergy Unknown UNKNOWN Verified 02/05/21 21:56 simvastatin [SIMVASTATIN] Allergy Unknown UNKNOWN Verified 02/05/21 21:56 Review of Systems Review of Systems: Yes all other systems are reviewed and are negative [facility] Past Medical History Medical History Afib Asthma CHF (congestive heart failure) HTN (hypertension) Hypothyroid Venous stasis dermatitis of right lower extremity Surgical History S/P hip replacement Social History Social History Household Members: None Housing: Apartment Do you presently have visiting nurse or other home services: Yes Alcohol intake: unknown Patient Tobacco Use Status: Never used Tobacco Second Hand Smoke Exposure: No Advance Directives: Yes Advance Directives on File: Yes Advance Directives Date on File: 02/05/21 service: No Current occupational status: disabled Physical Exam ED Vital Signs: Vital Signs - 24 hr 08/09/21 13:49 08/09/21 17:26 08/09/21 18:16 Temperature 96.1 F L 97.5 F Pulse Rate 81 71 74 Respiratory Rate 16 24 H 20 Blood Pressure 93/56 L 95/46 L Pulse Oximetry 94 BMI result Body Mass Index 34.3 Appearance: Alert. Oriented X3. No acute distress. Eyes: No pallor icterus ENT: Pharynx normal. Oral Mucosa moist Neck: Normal inspection. Neck supple. CVS: Normal heart rate and rhythm. Pulses normal. Respiratory: No respiratory distress. Equal air entry bilateral, bilateral with prolonged expiration with fine crackles at the bases Abdomen: Soft and nontender. Bowel sounds are present, no mass palpable, no CVA tenderness Skin: Skin warm and dry. Normal skin color. Normal skin turgor. Extremities: Bilateral leg lymphedema with chronic venous insufficiency changes with open ulcer specially in the right leg with foul-smelling discharge, erythema of the right leg all the way to the knee Neuro: Oriented X 3. No motor deficit. No sensory deficit.No cerebellar signs , cranial nerves II-XII intact Extrem Other: Medical Decision Making Lab Data Result diagrams: 08/09/21 14:18 08/09/21 14:18 Labs: Lab Results 08/09/21 08/09/21 08/09/21 Range/Units 14:18 14:18 14:18 WBC 25.7 H (4.8-10.8) X10*3/uL RBC 3.90 L (4.20-5.50) X10*6/uL Hgb 11.3 L (12.0-16.0) g/dl Hct 35.8 L (37.0-47.0) % MCV 91.8 (80.0-98.0) fL MCH 29.0 (27.0-33.0) pg MCHC 31.6 (31.0-35.0) g/dl RDW 14.8 (11.0-16.0) % Plt Count 180 (160-400) X10*3/uL MPV 11.7 (9.4-12.3) fL Immature Gran % (Auto) Cancelled Neut % (Auto) Cancelled Lymph % (Auto) Cancelled [place] % (Auto) Cancelled Eos % (Auto) Cancelled Baso % (Auto) Cancelled Lymph # (Auto) Cancelled [place] # (Auto) Cancelled Eos # (Auto) Cancelled Baso # (Auto) Cancelled Abs Immat Gran (auto) Cancelled Absolute Neuts (auto) Cancelled Absolute Nucleated RBC 0.000 (0.0-0.012) X10*3/uL Nucleated RBC % (auto) 0.0 (0.0-0.2) /100WBC Neutrophils % (Manual) 74 H (45-73) % Band Neutrophils % 19 H (3-5) % Lymphocytes % (Manual) 4 L (20-40) % Monocytes % (Manual) 1 L (2-11) % Metamyelocytes % 1 % Myelocytes % 1 % Abs Neuts (Manual) 23.9 H (2.0-8.3) X10*3/uL Lymphocytes # (Manual) 1.0 L (1.2-4.9) X10*3/uL Monocytes # (Manual) 0.3 (0.1-1.2) X10*3/uL Metamyelocytes # 0.3 X10*3/uL Myelocytes # 0.3 X10*/uL Toxic Vacuolation PRESENT Dohle Bodies PRESENT Platelet Estimate NORMAL (NORMAL) Large Platelets PRESENT Plt Morphology Comment NOTED RBC Morphology NOTED Polychromasia 1+ (0-2) /OIF PT (9.9-13.0) SEC INR (0.9-1.1) APTT (24.1-38.0) SEC Sodium 137 (135-145) mmol/L Potassium 3.6 (3.3-5.1) mmol/L Chloride 99 (96-108) mmol/L Carbon Dioxide 29 (22-29) mmol/L Anion Gap 13 (12-20) BUN 42 H (9-16) mg/dL Creatinine 2.34 H (0.5-1.4) mg/dL Estim Creat Clear Calc 19.8 Estimated GFR 20 Random Glucose 131 H (60-115) mg/dL Lactic Acid (0.5-2.0) mmol/L Calcium 8.6 D (8.4-10.2) mg/dL Troponin I High Sens 9.9 (<3.5-17.0) ng/L B-Natriuretic Peptide 159 H (<100) pg/mL Urine Color Urine Appearance Urine pH (5.0-8.0) Ur Specific [place] (1.005-1.025) Urine Protein (NEG-TRACE) MG/DL Urine Glucose (UA) (NEG) MG/DL Urine Ketones (NEG) MG/DL Urine Blood (NEG) Urine Nitrite (NEG) Ur Leukocyte Esterase (NEG) Urine RBC (0) /HPF Urine WBC (0-4) /HPF Ur Squamous Epith Cells /LPF Urine Bacteria /LPF COVID-19 (DAMARIS) (Negative) COVID-19 Clin Com 08/09/21 08/09/21 08/09/21 Range/Units 14:18 14:18 14:19 WBC (4.8-10.8) X10*3/uL RBC (4.20-5.50) X10*6/uL Hgb (12.0-16.0) g/dl Hct (37.0-47.0) % MCV (80.0-98.0) fL MCH (27.0-33.0) pg MCHC (31.0-35.0) g/dl RDW (11.0-16.0) % Plt Count (160-400) X10*3/uL MPV (9.4-12.3) fL Immature Gran % (Auto) Neut % (Auto) Lymph % (Auto) [place] % (Auto) Eos % (Auto) Baso % (Auto) Lymph # (Auto) [place] # (Auto) Eos # (Auto) Baso # (Auto) Abs Immat Gran (auto) Absolute Neuts (auto) Absolute Nucleated RBC (0.0-0.012) X10*3/uL Nucleated RBC % (auto) (0.0-0.2) /100WBC Neutrophils % (Manual) (45-73) % Band Neutrophils % (3-5) % Lymphocytes % (Manual) (20-40) % Monocytes % (Manual) (2-11) % Metamyelocytes % % Myelocytes % % Abs Neuts (Manual) (2.0-8.3) X10*3/uL Lymphocytes # (Manual) (1.2-4.9) X10*3/uL Monocytes # (Manual) (0.1-1.2) X10*3/uL Metamyelocytes # X10*3/uL Myelocytes # X10*/uL Toxic Vacuolation Dohle Bodies Platelet Estimate (NORMAL) Large Platelets Plt Morphology Comment RBC Morphology Polychromasia /OIF PT 43.5 H (9.9-13.0) SEC INR 3.7 H (0.9-1.1) APTT 51.1 H (24.1-38.0) SEC Sodium (135-145) mmol/L Potassium (3.3-5.1) mmol/L Chloride (96-108) mmol/L Carbon Dioxide (22-29) mmol/L Anion Gap (12-20) BUN (9-16) mg/dL Creatinine (0.5-1.4) mg/dL Estim Creat Clear Calc Estimated GFR Random Glucose (60-115) mg/dL Lactic Acid 1.6 (0.5-2.0) mmol/L Calcium (8.4-10.2) mg/dL Troponin I High Sens (<3.5-17.0) ng/L B-Natriuretic Peptide (<100) pg/mL Urine Color Urine Appearance Urine pH (5.0-8.0) Ur Specific [place] (1.005-1.025) Urine Protein (NEG-TRACE) MG/DL Urine Glucose (UA) (NEG) MG/DL Urine Ketones (NEG) MG/DL Urine Blood (NEG) Urine Nitrite (NEG) Ur Leukocyte Esterase (NEG) Urine RBC (0) /HPF Urine WBC (0-4) /HPF Ur Squamous Epith Cells /LPF Urine Bacteria /LPF COVID-19 (DAMARIS) Negative (Negative) COVID-19 Clin Com See Note 08/09/21 Range/Units 17:30 WBC (4.8-10.8) X10*3/uL RBC (4.20-5.50) X10*6/uL Hgb (12.0-16.0) g/dl Hct (37.0-47.0) % MCV (80.0-98.0) fL MCH (27.0-33.0) pg MCHC (31.0-35.0) g/dl RDW (11.0-16.0) % Plt Count (160-400) X10*3/uL MPV (9.4-12.3) fL Immature Gran % (Auto) Neut % (Auto) Lymph % (Auto) [place] % (Auto) Eos % (Auto) Baso % (Auto) Lymph # (Auto) [place] # (Auto) Eos # (Auto) Baso # (Auto) Abs Immat Gran (auto) Absolute Neuts (auto) Absolute Nucleated RBC (0.0-0.012) X10*3/uL Nucleated RBC % (auto) (0.0-0.2) /100WBC Neutrophils % (Manual) (45-73) % Band Neutrophils % (3-5) % Lymphocytes % (Manual) (20-40) % Monocytes % (Manual) (2-11) % Metamyelocytes % % Myelocytes % % Abs Neuts (Manual) (2.0-8.3) X10*3/uL Lymphocytes # (Manual) (1.2-4.9) X10*3/uL Monocytes # (Manual) (0.1-1.2) X10*3/uL Metamyelocytes # X10*3/uL Myelocytes # X10*/uL Toxic Vacuolation Dohle Bodies Platelet Estimate (NORMAL) Large Platelets Plt Morphology Comment RBC Morphology Polychromasia /OIF PT (9.9-13.0) SEC INR (0.9-1.1) APTT (24.1-38.0) SEC Sodium (135-145) mmol/L Potassium (3.3-5.1) mmol/L Chloride (96-108) mmol/L Carbon Dioxide (22-29) mmol/L Anion Gap (12-20) BUN (9-16) mg/dL Creatinine (0.5-1.4) mg/dL Estim Creat Clear Calc Estimated GFR Random Glucose (60-115) mg/dL Lactic Acid (0.5-2.0) mmol/L Calcium (8.4-10.2) mg/dL Troponin I High Sens (<3.5-17.0) ng/L B-Natriuretic Peptide (<100) pg/mL Urine Color YELLOW Urine Appearance CLEAR Urine pH 5.5 (5.0-8.0) Ur Specific [place] 1.010 (1.005-1.025) Urine Protein NEG (NEG-TRACE) MG/DL Urine Glucose (UA) NEG (NEG) MG/DL Urine Ketones NEG (NEG) MG/DL Urine Blood 3+ H (NEG) Urine Nitrite NEG (NEG) Ur Leukocyte Esterase NEG (NEG) Urine RBC 15-29 H (0) /HPF Urine WBC 1-4 (0-4) /HPF Ur Squamous Epith Cells 2+ /LPF Urine Bacteria NONE /LPF COVID-19 (DAMARIS) (Negative) COVID-19 Clin Com ECG Data Attestation: I personally reviewed and interpreted this ECG as follows: Interpretation: Atrial fibrillation with heart rate 80 beats per minute no acute ST-T changes no acute ischemia Discharge Plan Discharge Clinical Impression: Non-healing wound of right lower extremity, Lymphedema, Cellulitis of right leg, Acute kidney failure Patient Disposition: Admitted As Inpatient
[2021-08-09 17:44] LABS: Appearance Urine CLEAR; Color Urine YELLOW; Glucose Urine UA NEG (NEG); Leukocyte Esterase Urine NEG (NEG); Nitrite Urine NEG (NEG); PH 5.5 (5.0-8.0); UACC Culture Trigger NO; Urine Blood 3+ (NEG); Urine Ketones NEG (NEG); Urine Protein NEG (NEG-TRACE)
[2021-08-09 18:16] LABS: Squamous Epithelial Cell Urine 2+ /LPF
[2021-08-09] MEDS: Albuterol/Iprat 2.5/0.5MG 3 ML AMPUL.NEB INHALE (18:16)
--- NOTE | 2021-08-09 19:29 | PM.IMHP ---
History of Present Illness Date of Service: 08/09/21 Chief Complaint: leg swelling 81-year-old female with a past history of hypertension, asthma, CHF, AFib on Coumadin, chronic lymphedema, history of recurrent right lower extremity cellulitis, venous stasis dermatitis; presented to the hospital with a chief complaint of right legs swelling, fall smelling discharge for the past few days. Denies any fevers. Denies any chest pain or palpitations. Denies any nausea vomiting diarrhea. Denies any urinary symptoms. Review of all other systems is negative except mentioned above ER course: Per ER team patient noted to have leukocytosis of 25; right leg concerning for cellulitis. Given antibiotics. Admitted for further management. [facility] Medical History Afib Asthma CHF (congestive heart failure) HTN (hypertension) Hypothyroid Venous stasis dermatitis of right lower extremity Surgical History S/P hip replacement Social History Household Members: None Housing: Apartment Do you presently have visiting nurse or other home services: Yes Alcohol intake: unknown Patient Tobacco Use Status: Never used Tobacco Second Hand Smoke Exposure: No Advance Directives: Yes Advance Directives on File: Yes Advance Directives Date on File: 02/05/21 service: No Current occupational status: disabled Meds Allergies Allergy/AdvReac Type Severity Reaction Status Date / Time lisinopril [LISINOPRIL] Allergy Unknown UNKNOWN Verified 02/05/21 21:56 simvastatin [SIMVASTATIN] Allergy Unknown UNKNOWN Verified 02/05/21 21:56 Active Medications: Current Medications Vancomycin HCl 1,500 mg/ (Sodium Chloride) 500 mls @ 333.333 mls/hr IV ONCE ONE Stop: 08/09/21 20:44 Pharmacy Consult (Consult Rx Vancomycin Dosing) 1 each MISCELLANE DAILY PRN PRN Reason: Consult order Home Medications Medication Instructions Recorded Confirmed Last Taken Type calcium carbonate 600 mg-vitamin 1 tab PO BID 02/04/21 08/09/21 05/02/21 History D3 10 mcg (400 unit) tablet cholecalciferol (vitamin D3) 50 50 mcg PO DAILY 02/04/21 08/09/21 05/02/21 History mcg (2,000 unit) capsule (Vitamin D3) diltiazem HCl 120 mg capsule,24 120 mg PO BID 02/04/21 08/09/21 05/02/21 History hr,extended release ferrous sulfate 325 mg (65 mg 325 mg PO DAILY 02/04/21 08/09/21 05/02/21 History iron) tablet (FeroSul) levothyroxine 50 mcg tablet 50 mcg PO DAILY 02/04/21 08/09/21 05/02/21 History loratadine 10 mg tablet 10 mg PO DAILY 02/04/21 08/09/21 05/02/21 History midodrine 5 mg tablet 5 mg PO TID 02/04/21 08/09/21 05/02/21 History omeprazole 20 mg capsule,delayed 20 mg PO DAILY@0630 02/04/21 08/09/21 02/03/21 History release warfarin 2.5 mg tablet 5 mg PO DAILY 02/04/21 08/09/21 05/02/21 History fluticasone fur. 100 mcg-umeclid 1 puff INHALATION DAILY 05/03/21 08/09/21 05/02/21 History 62.5 mcg-vilant 25 mcg inhalat.powder (Trelegy Ellipta) omalizumab 150 mg subcutaneous 300 mg SUBCUT Q2W 05/03/21 08/09/21 Unknown History solution (Xolair) albuterol sulfate 2.5 mg INHALATION Q4H PRN 08/09/21 08/09/21 Unknown History furosemide 40 mg tablet 1 tab PO DAILY 08/09/21 08/09/21 Unknown History montelukast 10 mg tablet 1 tab PO DAILY 08/09/21 08/09/21 Unknown History Physical Exam Vital Signs and Narrative: Vital Signs: Last Vital Signs Temp 97.5 F 08/09/21 17:26 Pulse 74 08/09/21 18:16 Resp 20 08/09/21 18:16 BP 95/46 L 08/09/21 17:26 Pulse Ox 94 08/09/21 13:49 BMI result Body Mass Index 34.3 Gen: Appears be in no acute distress HEENT: NCAT, Moist mucosa. Pulmonary: Vesicular breath sounds, fair air entry CVS: Normal S1-S2 Abdomen: BS+, Soft, Nontender Extremities: Warm well perfused; bilateral legs have swollen, chronic skin changes; right lower extremity noted to have small open ulcer with pus-like discharge; full smelling; Neuro: Alert and awake. Results Labs CBC and Chem 7: 08/09/21 14:18 08/09/21 14:18 Labs: Laboratory Results - last 24 hr 08/09/21 08/09/21 08/09/21 14:18 14:18 14:18 MCV 91.8 MCH 29.0 MCHC 31.6 RDW 14.8 Plt Count 180 MPV 11.7 Immature Gran % (Auto) Cancelled Neut % (Auto) Cancelled Lymph % (Auto) Cancelled [place] % (Auto) Cancelled Eos % (Auto) Cancelled Baso % (Auto) Cancelled Lymph # (Auto) Cancelled [place] # (Auto) Cancelled Eos # (Auto) Cancelled Baso # (Auto) Cancelled Abs Immat Gran (auto) Cancelled Absolute Neuts (auto) Cancelled Absolute Nucleated RBC 0.000 Nucleated RBC % (auto) 0.0 Neutrophils % (Manual) 74 H Band Neutrophils % 19 H Lymphocytes % (Manual) 4 L Monocytes % (Manual) 1 L Metamyelocytes % 1 Myelocytes % 1 Abs Neuts (Manual) 23.9 H Lymphocytes # (Manual) 1.0 L Monocytes # (Manual) 0.3 Metamyelocytes # 0.3 Myelocytes # 0.3 Toxic Vacuolation PRESENT Dohle Bodies PRESENT Platelet Estimate NORMAL Large Platelets PRESENT Plt Morphology Comment NOTED RBC Morphology NOTED Polychromasia 1+ (0-2) PT INR APTT Anion Gap 13 Estim Creat Clear Calc 19.8 Estimated GFR 20 Random Glucose 131 H Lactic Acid Calcium 8.6 D B-Natriuretic Peptide 159 H Urine Color Urine Appearance Urine pH Ur Specific [place] Urine Protein Urine Glucose (UA) Urine Ketones Urine Blood Urine Nitrite Ur Leukocyte Esterase Urine RBC Urine WBC Ur Squamous Epith Cells Urine Bacteria COVID-19 (DAMARIS) COVID-19 Clin Com 08/09/21 08/09/21 08/09/21 14:18 14:18 14:19 MCV MCH MCHC RDW Plt Count MPV Immature Gran % (Auto) Neut % (Auto) Lymph % (Auto) [place] % (Auto) Eos % (Auto) Baso % (Auto) Lymph # (Auto) [place] # (Auto) Eos # (Auto) Baso # (Auto) Abs Immat Gran (auto) Absolute Neuts (auto) Absolute Nucleated RBC Nucleated RBC % (auto) Neutrophils % (Manual) Band Neutrophils % Lymphocytes % (Manual) Monocytes % (Manual) Metamyelocytes % Myelocytes % Abs Neuts (Manual) Lymphocytes # (Manual) Monocytes # (Manual) Metamyelocytes # Myelocytes # Toxic Vacuolation Dohle Bodies Platelet Estimate Large Platelets Plt Morphology Comment RBC Morphology Polychromasia PT 43.5 H INR 3.7 H APTT 51.1 H Anion Gap Estim Creat Clear Calc Estimated GFR Random Glucose Lactic Acid 1.6 Calcium B-Natriuretic Peptide Urine Color Urine Appearance Urine pH Ur Specific [place] Urine Protein Urine Glucose (UA) Urine Ketones Urine Blood Urine Nitrite Ur Leukocyte Esterase Urine RBC Urine WBC Ur Squamous Epith Cells Urine Bacteria COVID-19 (DAMARIS) Negative COVID-19 Clin Com See Note 08/09/21 17:30 MCV MCH MCHC RDW Plt Count MPV Immature Gran % (Auto) Neut % (Auto) Lymph % (Auto) [place] % (Auto) Eos % (Auto) Baso % (Auto) Lymph # (Auto) [place] # (Auto) Eos # (Auto) Baso # (Auto) Abs Immat Gran (auto) Absolute Neuts (auto) Absolute Nucleated RBC Nucleated RBC % (auto) Neutrophils % (Manual) Band Neutrophils % Lymphocytes % (Manual) Monocytes % (Manual) Metamyelocytes % Myelocytes % Abs Neuts (Manual) Lymphocytes # (Manual) Monocytes # (Manual) Metamyelocytes # Myelocytes # Toxic Vacuolation Dohle Bodies Platelet Estimate Large Platelets Plt Morphology Comment RBC Morphology Polychromasia PT INR APTT Anion Gap Estim Creat Clear Calc Estimated GFR Random Glucose Lactic Acid Calcium B-Natriuretic Peptide Urine Color YELLOW Urine Appearance CLEAR Urine pH 5.5 Ur Specific [place] 1.010 Urine Protein NEG Urine Glucose (UA) NEG Urine Ketones NEG Urine Blood 3+ H Urine Nitrite NEG Ur Leukocyte Esterase NEG Urine RBC 15-29 H Urine WBC 1-4 Ur Squamous Epith Cells 2+ Urine Bacteria NONE COVID-19 (DAMARIS) COVID-19 Clin Com Imaging Radiologist's Impressions: Impressions Chest X-Ray 08/09/21 14:47 IMPRESSION: Enlarged cardiac silhouette and pulmonary venous redistribution. No evidence of pulmonary edema. Assessment and Plan (1) Non-healing wound of right lower extremity: Status: Acute (2) Lymphedema: Status: Acute (3) Cellulitis of right leg: Status: Acute (4) Acute kidney failure: Status: Acute Plan 81-year-old female with a past medical history of hypertension, CHF, AFib on Coumadin, asthma, hypothyroidism, venous stasis, history of recurrent lower extremity cellulitis; presented to the hospital today with a chief complaint of right lower extremity pain, tenderness, discharge; noted to have leukocytosis of 25; concern for right lower extremity cellulitis. Admitted for further management. Right lower extremity cellulitis/?abscess: Patient has prior history of similar presentation. Has chronic venous stasis/lymphedema. Patient noted to have versus discharging open ulcer on the right leg anteriorly. Fall smelling. Will obtain ultrasound to rule out any deep abscess pockets Continue IV vancomycin and Zosyn --> pharmacy to renally dose medications. Id consult JEN: Likely prerenal. Avoid nephrotoxins. Gentle IV fluids. History of venous stasis dermatitis/lymphedema of the right lower extremity: Patient on Lasix at home. On hold for now History of asthma: Stable. Patient on Xolair. Nebulizations p.r.n.. History of AFib: Rate controlled. Will hold home diltiazem given soft blood pressure. INR supratherapeutic at 3.7. Monitor INR and resume Coumadin accordingly. History of hypothyroidism: Continue home levothyroxine History of orthostatic hypotension: Currently blood pressure on soft diet. Continue home med renewed. Hold home Lasix as well DVT prophylaxis: Patient on Coumadin Code status: Full code Quality Stroke Does the patient have a stroke diagnosis?: No VTE Prior VTE?: No VTE Risk Level:: Medical - moderate - high VTE Device Contraindication: Treatment Not Indicated VTE Drug Contraindication: N/A - Med Ordered
[2021-08-09] MEDS: Piperacillin Sodium/Tazobactam 3.375 GM in 0.9 % Sodium Chloride 50 ML IV (20:10)
--- NOTE | 2021-08-09 20:17 | PHA.PROG ---
Admission Date/Time: August 09, 2021 19:25 Indication: Skin Infection Weight in k.997 kg Adjusted body weight in K.639 kg Dexter body weight in K.4 kg Obesity Dosing Indication % IBW: 167% Serum Creatinine - Last 168 Hours 08/09/21 14:18 Creatinine 2.34 H Estimated CrCl and GFR - Last 168 Hours 08/09/21 14:18 Estim Creat Clear Calc 19.8 Estimated GFR 20 Vancomycin Loading Dose: 1500 mg (17 mg/kg) Current Vancomycin Dosing Regimen: 500 mg Q24H Date and Time for next Vancomycin Level to be drawn: 08/11 @ 1900 Pharmacist Comments on Vancomycin Plan: Patient is obese, elderly and has poor renal function, therefore level can be unpredictable and pharmacy will carefully monitor patient Since patient has those risk factor, patient will receive a loading less than 20 mg/kg. Patient will receive 1500 mg on 08/09 to be given around 2100 Maintenance dose will start 24 hours later with vancomycin 500 mg Q24H on 08/10 @ 2100. Expected AUC 554 with a trough of 19.6. Trough will be drawn prior to 3rd dose to determine if patient will be subtheraptuic or supratherpatuic early. If patient is in therapeutics levels but > 15 after 2 dose, patient may need Q48H dosing. Pharmacy will continue to monitor renal function as she is on multiple nephrotoxic drugs Laura Ibrahim PharmD Vancomycin dosing will take advantage of [employer] as a clinical decision support tool that uses Bayesian modeling to calculate individual patient's pharmacokinetic parameters and forecast the patient's drug concentration time course with the target goal AUC 24 range of 400 - 600 mg/L/hr.
--- NOTE | 2021-08-09 20:20 | PHA.MEDREC ---
Pharmacy Consult ? Medication Reconciliation Pharmacy has completed the medication reconciliation. completed using pharmacy fill history and confirming warfarin dose with pt
[2021-08-09] MEDS: guaiFEN/Codeine SF 200/20/10ML 10 ML LIQUID PO (20:22)
[2021-08-09] MEDS: Furosemide 20 MG/2 ML VIAL IVPUSH (20:24)
[2021-08-09] MEDS: vancomycin HCL 1,500 MG in 0.9 % Sodium Chloride 500 ML 333.33 MG IV (20:25)
[2021-08-09] MEDS: Albuterol Sulfate (0.083%) 2.5 MG/3 ML VIAL.NEB 5 MG INHALE (20:35)
--- NOTE | 2021-08-09 21:31 | PC.NURSE ---
PT refused de dios catheter insertion and Purewick placement.
[2021-08-09] MEDS: Midodrine HCl 5 MG TABLET PO (23:13)
[2021-08-09] MEDS: 0.9 % Sodium Chloride 1,000 ML 50 ML IVCONT (23:13)
[2021-08-09] MEDS: 0.9 % Sodium Chloride Flush 3 ML SYRINGE IVFLUSH (23:14)
[2021-08-10] VITALS (11 sets, daily range): BP systolic 83–96; BP diastolic 46–58; PULSE 88–111; RESP 13–24; TEMP 36.6–37.6; O2SAT 94–98
[2021-08-10] MEDS: Piperacillin Sodium/Tazobactam 2.25 GM in 0.9 % Sodium Chloride 50 ML IV ×4 (01:08→20:43)
--- NOTE | 2021-08-10 02:33 | PC.NURSE ---
This RN noticed that PT De Dios catheter, inserted 4 hours ago, is not collecting an appropriate amount of urine. Bladder scan of PT showed 19 mL in bladder. PT is also complaining of pain with de dios catheter and asking to have it removed. Hospitalist notified.
[2021-08-10] MEDS: 0.9 % Sodium Chloride 250 ML IV (02:57)
[2021-08-10] MEDS: Benzonatate 100 MG CAPSULE PO ×2 (03:45→20:36)
[2021-08-10] MEDS: Acetaminophen 325 MG TABLET 650 MG PO (05:13)
--- NOTE | 2021-08-10 05:46 | PC.NURSE ---
PT complaining of pain with de dios catheter and requesting to have catheter removed. This RN removed catheter; found to have blood in the distal end of tubing. PT then requested to use bed side commode. PT able to transfer self to commode with some assistance from this RN. When PT stood up, pad underneath her was found to be saturated with urine. PT was also able to produce at least 100 mL of urine in the collection hat placed in the commode. Hospitalist informed that PT was leaking urine around the catheter tubing.
[2021-08-10] MEDS: Levothyroxine Sodium 50 MCG TABLET PO (06:25)
[2021-08-10] MEDS: Omeprazole 20 MG CAPSULE.DR PO (06:25)
[2021-08-10 07:55] LABS: MANUAL DIFF FLAG NO
[2021-08-10 07:57] LABS: Basophils Percent Auto 0.2 % (0-2); Eosinophils Absolute Auto 0.1 X10*3/uL (0.0-0.4); Eosinophils Percent Auto 0.5 % (0-4); Hematocrit 32.5 % (37.0-47.0); Imm Gran Pct Auto 0.5 % (0.0-0.4); Lymphocytes Absolute Auto 1.6 X10*3/uL (1.2-4.9); Lymphocytes Percent Auto 8.5 % (20-40); Mean Corpuscular HGB Conc 30.8 g/dl (31.0-35.0); Mean Corpuscular Hemoglobin 28.8 pg (27.0-33.0); Mean Corpuscular Volume 93.7 fL (80.0-98.0); Mean Platelet Volume 11.3 fL (9.4-12.3); Monocytes Absolute Auto 0.8 X10*3/uL (0.1-1.2); Monocytes Percent Auto 4.1 % (2-11); Neutrophils Percent Auto 86.2 % (45-73); Platelet Count 154 X10*3/uL (160-400); Red Blood Count 3.47 X10*6/uL (4.20-5.50); Red Cell Distribution Width 14.7 % (11.0-16.0); White Blood Count 18.6 X10*3/uL (4.8-10.8)
[2021-08-10 08:11] LABS: Creatinine Clr Calc Pharmacy 17.3; Estimated Glomerular Filt Rate 17; INTERNATIONAL NORM RATIO 4.8 (0.9-1.1); Prothrombin Time 56.5 SEC (9.9-13.0)
[2021-08-10 08:15] LABS: Anion Gap 12 (12-20); Blood Urea Nitrogen 46 mg/dL (9-16); Calcium 7.7 mg/dL (8.4-10.2); Carbon Dioxide 27 mmol/L (22-29); Chloride 102 mmol/L (96-108); Creatinine Clr Calc Pharmacy 16.9; Estimated Glomerular Filt Rate 17; Glucose Random 85 mg/dL (60-115); Sodium 137 mmol/L (135-145)
--- NOTE | 2021-08-10 08:23 | PC.NURSE ---
report taken from [facility] pt here for chf exacerbation, swelling in bl le. no cp or sob noted on first contact. resting cmfortably in stretcher rr even/unlabored. positional iv needing frequent restarting. pt ate 100% breakfast. us at bedside for eval of le. wctm.
[2021-08-10] MEDS: Furosemide 40 MG TABLET PO (08:50)
[2021-08-10] MEDS: Loratadine 10 MG TABLET PO (08:50)
[2021-08-10] MEDS: Cholecalciferol (Vitamin D3) 25 MCG TABLET 50 MCG PO (08:50)
[2021-08-10] MEDS: Midodrine HCl 5 MG TABLET PO ×3 (08:51→20:22)
--- NOTE | 2021-08-10 10:42 | PC.NURSE ---
case mgmt consulting w pt
--- NOTE | 2021-08-10 10:57 | MHC.CM.PN ---
CM MET WITH PT AND SON WHO WAS AT BEDSIDE WITH THE ASSISTANCE OF A ECONOMICS ANALYST. THEY REPORT THE PT LIVES ALONE AND HAS 28 HOURS PER WEEK OF [employer]CH[employer]IST SERVICES. PT DOES NOT CURRENTLY HAVE A VNA BUT IS INTERESTED IN THEM AT DC FOR SN AND PT PT USES A WHEELCHAIR AND HAS HER WITH HER IN HER ROOM. PT HAS A HCP ON FILE AND HER PCP IS ROYAL GARCIA PT IS COVID VACCINATED BUT HAS NOT HAD THE BOOSTER IMM DELIVERED, ORIGINAL AT BEDSIDE, COPY SENT TO [facility] CURRENT DC PLAN IS HOME WITH RESUMPTION OF [employer] PS[employer]CHOLOGIST AND NEW VNA REFERRAL. REFERRAL MADE, AUTH FROM [facility] WILL BE NEEDED IF MD AGREES VNA IS INDICATED PT WILL NEED A CHAIR VAN HOME
--- NOTE | 2021-08-10 12:22 | P.PNIM_ITS ---
Subjective Subjective Date of Service: 08/10/21 Review of Systems Follow up cellulitis no pain, sitting up in bed Physical Exam Vital Signs: Vital Signs: Last Vital Signs Temp 98.6 F 08/10/21 06:30 Pulse 102 H 08/10/21 10:40 Resp 14 08/10/21 10:40 BP 91/51 L 08/10/21 10:40 Pulse Ox 98 08/10/21 10:40 BMI result Body Mass Index 34.3 Appearing in no acute distress lung sounds are clear to auscultation heart regular rate rhythm, clear S1, S2 positive bowel sounds, abdomen is soft, nontender neuro patient is alert x3, no focal deficits lymphedema, chronic skin changes to lower extremities Objective Data Active Medications Acetaminophen (Acetaminophen 325 Mg Tablet) 650 mg PO Q6H PRN PRN Reason: Pain, Mild (Pain Scale 1-3) Last Admin: 08/10/21 05:13 Dose: 650 mg Documented by: CARLEEN Albuterol Sulfate (Albuterol Sulfate (0.083%) 2.5 Mg/3 Ml Vial.Neb) 2.5 mg INHALE Q4H PRN PRN Reason: Shortness Of Breath Benzonatate (Benzonatate 100 Mg Capsule) 100 mg PO TID PRN PRN Reason: Cough Last Admin: 08/10/21 03:45 Dose: 100 mg Documented by: CARLEEN Furosemide (Furosemide 40 Mg Tablet) 40 mg PO DAILY COUNT INCLUDES THE [facility]; Protocol Last Admin: 08/10/21 08:50 Dose: 40 mg Documented by: ANITHA Piperacillin Sod/Tazobactam (Sod 2.25 gm/ Sodium Chloride) 50 mls @ 100 mls/hr IV Q6H COUNT INCLUDES THE [facility] Last Infusion: 08/10/21 09:27 Dose: 0 mls/hr Documented by: ANITHA Vancomycin HCl 500 mg/ Sodium (Chloride) 110 mls @ 110 mls/hr IV Q24H [facility] Sodium Chloride (Ns) 1,000 mls @ 50 mls/hr IVCONT .Q20H COUNT INCLUDES THE [facility] Last Infusion: 08/10/21 03:45 Dose: 50 mls/hr Documented by: CARLEEN Levothyroxine Sodium (Levothyroxine Sodium 50 Mcg Tablet) 50 mcg PO DAILY@0600 COUNT INCLUDES THE [facility] Last Admin: 08/10/21 06:25 Dose: 50 mcg Documented by: CARLEEN Loratadine (Loratadine 10 Mg Tablet) 10 mg PO DAILY COUNT INCLUDES THE [facility] Last Admin: 08/10/21 08:50 Dose: 10 mg Documented by: ANITHA Melatonin (Melatonin 3 Mg Tablet) 6 mg PO BEDTIME PRN PRN Reason: Insomnia Midodrine (Midodrine Hcl 5 Mg Tablet) 5 mg PO TID COUNT INCLUDES THE [facility] Last Admin: 08/10/21 08:51 Dose: 5 mg Documented by: ANITHA Montelukast Sodium (Montelukast Sodium 10 Mg Tablet) 10 mg PO BEDTIME COUNT INCLUDES THE [facility] Omeprazole (Omeprazole 20 Mg Capsule.Dr) 20 mg PO DAILY@0630 COUNT INCLUDES THE [facility] Last Admin: 08/10/21 06:25 Dose: 20 mg Documented by: CARLEEN Pharmacy Consult (Consult Rx Vancomycin Dosing) 1 each MISCELLANE DAILY PRN PRN Reason: Consult order Pharmacy Consult (Consult Rx Vancomycin Dosing) 1 each MISCELLANE DAILY PRN PRN Reason: Consult order Senna (Sennosides 8.6 Mg Tablet) 17.2 mg PO BEDTIME PRN PRN Reason: Constipation Sodium Chloride (0.9 % Sodium Chloride Flush 3 Ml Syringe) 3 ml IVFLUSH QSHIFT COUNT INCLUDES THE [facility] Last Admin: 08/10/21 07:03 Dose: Not Given Documented by: ANITHA Non-Admin Reason: Med Not Available Vitamin D (Cholecalciferol (Vitamin D3) 25 Mcg Tablet) 50 mcg PO DAILY COUNT INCLUDES THE [facility] Last Admin: 08/10/21 08:50 Dose: 50 mcg Documented by: ANITHA Labs CBC & Chem 7: 08/10/21 07:42 08/10/21 07:41 Labs: Laboratory Results - last 24 hr 08/09/21 08/09/21 08/09/21 14:18 14:18 14:18 MCV 91.8 MCH 29.0 MCHC 31.6 RDW 14.8 Plt Count 180 MPV 11.7 Immature Gran % (Auto) Cancelled Neut % (Auto) Cancelled Lymph % (Auto) Cancelled Bennett % (Auto) Cancelled Eos % (Auto) Cancelled Baso % (Auto) Cancelled Lymph # (Auto) Cancelled Bennett # (Auto) Cancelled Eos # (Auto) Cancelled Baso # (Auto) Cancelled Abs Immat Gran (auto) Cancelled Absolute Neuts (auto) Cancelled Absolute Nucleated RBC 0.000 Nucleated RBC % (auto) 0.0 Neutrophils % (Manual) 74 H Band Neutrophils % 19 H Lymphocytes % (Manual) 4 L Monocytes % (Manual) 1 L Metamyelocytes % 1 Myelocytes % 1 Abs Neuts (Manual) 23.9 H Lymphocytes # (Manual) 1.0 L Monocytes # (Manual) 0.3 Metamyelocytes # 0.3 Myelocytes # 0.3 Toxic Vacuolation PRESENT Dohle Bodies PRESENT Platelet Estimate NORMAL Large Platelets PRESENT Plt Morphology Comment NOTED RBC Morphology NOTED Polychromasia 1+ (0-2) PT INR APTT Anion Gap 13 Estim Creat Clear Calc 19.8 Estimated GFR 20 Random Glucose 131 H Lactic Acid Calcium 8.6 D B-Natriuretic Peptide 159 H Urine Color Urine Appearance Urine pH Ur Specific [place] Urine Protein Urine Glucose (UA) Urine Ketones Urine Blood Urine Nitrite Ur Leukocyte Esterase Urine RBC Urine WBC Ur Squamous Epith Cells Urine Bacteria COVID-19 (DAMARIS) COVID-19 [facility] Com 08/09/21 08/09/21 08/09/21 14:18 14:18 14:19 MCV MCH MCHC RDW Plt Count MPV Immature Gran % (Auto) Neut % (Auto) Lymph % (Auto) Bennett % (Auto) Eos % (Auto) Baso % (Auto) Lymph # (Auto) Bennett # (Auto) Eos # (Auto) Baso # (Auto) Abs Immat Gran (auto) Absolute Neuts (auto) Absolute Nucleated RBC Nucleated RBC % (auto) Neutrophils % (Manual) Band Neutrophils % Lymphocytes % (Manual) Monocytes % (Manual) Metamyelocytes % Myelocytes % Abs Neuts (Manual) Lymphocytes # (Manual) Monocytes # (Manual) Metamyelocytes # Myelocytes # Toxic Vacuolation Dohle Bodies Platelet Estimate Large Platelets Plt Morphology Comment RBC Morphology Polychromasia PT 43.5 H INR 3.7 H APTT 51.1 H Anion Gap Estim Creat Clear Calc Estimated GFR Random Glucose Lactic Acid 1.6 Calcium B-Natriuretic Peptide Urine Color Urine Appearance Urine pH Ur Specific [place] Urine Protein Urine Glucose (UA) Urine Ketones Urine Blood Urine Nitrite Ur Leukocyte Esterase Urine RBC Urine WBC Ur Squamous Epith Cells Urine Bacteria COVID-19 (DAMARIS) Negative COVID-19 Clin Com See Note 08/09/21 08/10/21 08/10/21 17:30 07:41 07:41 MCV MCH MCHC RDW Plt Count MPV Immature Gran % (Auto) Neut % (Auto) Lymph % (Auto) Bennett % (Auto) Eos % (Auto) Baso % (Auto) Lymph # (Auto) Bennett # (Auto) Eos # (Auto) Baso # (Auto) Abs Immat Gran (auto) Absolute Neuts (auto) Absolute Nucleated RBC Nucleated RBC % (auto) Neutrophils % (Manual) Band Neutrophils % Lymphocytes % (Manual) Monocytes % (Manual) Metamyelocytes % Myelocytes % Abs Neuts (Manual) Lymphocytes # (Manual) Monocytes # (Manual) Metamyelocytes # Myelocytes # Toxic Vacuolation Dohle Bodies Platelet Estimate Large Platelets Plt Morphology Comment RBC Morphology Polychromasia PT 56.5 H INR 4.8 H APTT Anion Gap 12 Estim Creat Clear Calc 16.9 Estimated GFR 17 Random Glucose 85 Lactic Acid Calcium 7.7 L D B-Natriuretic Peptide Urine Color YELLOW Urine Appearance CLEAR Urine pH 5.5 Ur Specific [place] 1.010 Urine Protein NEG Urine Glucose (UA) NEG Urine Ketones NEG Urine Blood 3+ H Urine Nitrite NEG Ur Leukocyte Esterase NEG Urine RBC 15-29 H Urine WBC 1-4 Ur Squamous Epith Cells 2+ Urine Bacteria NONE COVID-19 (DAMARIS) COVID-19 Clin Com 08/10/21 08/10/21 07:41 07:42 MCV 93.7 MCH 28.8 MCHC 30.8 L RDW 14.7 Plt Count 154 L MPV 11.3 Immature Gran % (Auto) 0.5 H Neut % (Auto) 86.2 H Lymph % (Auto) 8.5 L Bennett % (Auto) 4.1 Eos % (Auto) 0.5 Baso % (Auto) 0.2 Lymph # (Auto) 1.6 Bennett # (Auto) 0.8 Eos # (Auto) 0.1 Baso # (Auto) 0.0 Abs Immat Gran (auto) 0.10 H Absolute Neuts (auto) 16.0 H Absolute Nucleated RBC 0.000 Nucleated RBC % (auto) 0.0 Neutrophils % (Manual) Band Neutrophils % Lymphocytes % (Manual) Monocytes % (Manual) Metamyelocytes % Myelocytes % Abs Neuts (Manual) Lymphocytes # (Manual) Monocytes # (Manual) Metamyelocytes # Myelocytes # Toxic Vacuolation Dohle Bodies Platelet Estimate Large Platelets Plt Morphology Comment RBC Morphology Polychromasia PT INR APTT Anion Gap Estim Creat Clear Calc 17.3 Estimated GFR 17 Random Glucose Lactic Acid Calcium B-Natriuretic Peptide Urine Color Urine Appearance Urine pH Ur Specific [place] Urine Protein Urine Glucose (UA) Urine Ketones Urine Blood Urine Nitrite Ur Leukocyte Esterase Urine RBC Urine WBC Ur Squamous Epith Cells Urine Bacteria COVID-19 (DAMARIS) COVID-19 Clin Com Assessment and Plan (1) Non-healing wound of right lower extremity: Status: Acute (2) Lymphedema: Status: Acute (3) Cellulitis of right leg: Status: Acute Plan 81-year-old female with a past medical history of hypertension, CHF, AFib on Coumadin, asthma, hypothyroidism, venous stasis, history of recurrent lower extremity cellulitis; presented to the hospital today with a chief complaint of right lower extremity pain, tenderness, discharge; noted to have leukocytosis of 25; concern for right lower extremity cellulitis.? Admitted for further management. Right lower extremity cellulitis. No abscess on ultrasound Patient has prior history of similar presentation.? Has chronic venous melany is/lymphedema. discharging open ulcer on the right leg anteriorly.? Foul smelling.? Continue IV vancomycin and Zosyn Id consult wound care JEN. Likely prerenal.? Avoid nephrotoxins.? Gentle IV fluids. History of asthma Stable.? Patient on Xolair.? Nebulizations p.r.n.. History of AFib. Rate controlled.? Will hold home diltiazem given soft blood pressure.? INR supratherapeutic at 3.7.? Monitor INR and resume Coumadin accordingly. Attending Dr. Mcneil DVT prophylaxis:? Patient on Coumadin Code status:? Full code Quality Stroke Does the patient have a stroke diagnosis?: No VTE Prior VTE?: No VTE Risk Level:: Medical - moderate - high VTE Device Contraindication: Treatment Not Indicated VTE Drug Contraindication: N/A - Med Ordered
--- NOTE | 2021-08-10 15:40 | PC.NURSE ---
REPORT GIVEN TO VANDANA BURGESS
[2021-08-10] MEDS: 0.9 % Sodium Chloride Flush 3 ML SYRINGE IVFLUSH (16:17)
[2021-08-10] MEDS: Montelukast Sodium 10 MG TABLET PO (20:22)
[2021-08-10] MEDS: Melatonin 3 MG TABLET 6 MG PO (20:36)
[2021-08-10] MEDS: vancomycin HCL 500 MG in 0.9 % Sodium Chloride 100 ML 110 MG IV (21:33)
[2021-08-11] VITALS (7 sets, daily range): BP systolic 92–118; BP diastolic 57–79; PULSE 84–120; RESP 16–22; TEMP 36.3–37.2; O2SAT 98–965
[2021-08-11] MEDS: Piperacillin Sodium/Tazobactam 2.25 GM in 0.9 % Sodium Chloride 50 ML IV ×3 (02:11→14:02)
[2021-08-11] MEDS: 0.9 % Sodium Chloride 1,000 ML 50 ML IVCONT (02:15)
[2021-08-11] MEDS: Omeprazole 20 MG CAPSULE.DR PO (05:52)
[2021-08-11] MEDS: Levothyroxine Sodium 50 MCG TABLET PO (05:52)
[2021-08-11 06:04] LABS: INTERNATIONAL NORM RATIO 4.4 (0.9-1.1); Prothrombin Time 51.7 SEC (9.9-13.0)
[2021-08-11 06:17] LABS: Anion Gap 13 (12-20); Blood Urea Nitrogen 45 mg/dL (9-16); Carbon Dioxide 32 mmol/L (22-29); Chloride 102 mmol/L (96-108); Creatinine Clr Calc Pharmacy 18.5; Estimated Glomerular Filt Rate 18; Glucose Random 73 mg/dL (60-115); Potassium 4.5 mmol/L (3.3-5.1); Sodium 142 mmol/L (135-145)
[2021-08-11] MEDS: Acetaminophen 325 MG TABLET 650 MG PO (07:47)
[2021-08-11] MEDS: Cholecalciferol (Vitamin D3) 25 MCG TABLET 50 MCG PO (07:47)
[2021-08-11] MEDS: Midodrine HCl 5 MG TABLET PO ×3 (07:48→20:39)
[2021-08-11] MEDS: 0.9 % Sodium Chloride Flush 3 ML SYRINGE IVFLUSH ×2 (07:48→20:39)
[2021-08-11] MEDS: Furosemide 40 MG TABLET PO (07:48)
[2021-08-11] MEDS: Loratadine 10 MG TABLET PO (07:48)
--- NOTE | 2021-08-11 10:07 | MHC.CLN ---
NUTRITION CONSULT FOR SKIN. PATIENT WITH CELLULITIS. SKIN ISSUE DOES NOT APPEAR TO BE PRESSURE RELATED. NO ADDITIONAL NUTRITION INTERVENTIONS AT THIS TIME.
--- NOTE | 2021-08-11 11:20 | P.PNIM_ITS ---
Subjective Subjective Date of Service: 08/11/21 Review of Systems Follow up cellulitis no pain, sitting up in bed Physical Exam Vital Signs: Vital Signs: Last Vital Signs Temp 97.5 F 08/11/21 07:52 Pulse 109 H 08/11/21 09:47 Resp 18 08/11/21 07:52 BP 104/59 L 08/11/21 09:47 Pulse Ox 99 08/11/21 09:47 BMI result Body Mass Index 34.3 Appearing in no acute distress ?lung sounds are clear to auscultation ?heart regular rate rhythm, clear? S1, S2 ?positive bowel sounds, abdomen is soft, nontender ?neuro patient is alert x3, no focal deficits ?lymphedema, chronic skin changes to lower extremities Objective Data Active Medications Acetaminophen (Acetaminophen 325 Mg Tablet) 650 mg PO Q6H PRN PRN Reason: Pain, Mild (Pain Scale 1-3) Last Admin: 08/11/21 07:47 Dose: 650 mg Documented by: SAPPHIRE Albuterol Sulfate (Albuterol Sulfate (0.083%) 2.5 Mg/3 Ml Vial.Neb) 2.5 mg INHALE Q4H PRN PRN Reason: Shortness Of Breath Benzonatate (Benzonatate 100 Mg Capsule) 100 mg PO TID PRN PRN Reason: Cough Last Admin: 08/10/21 20:36 Dose: 100 mg Documented by: MATTHEW Furosemide (Furosemide 40 Mg Tablet) 40 mg PO DAILY [facility]; Protocol Last Admin: 08/11/21 07:48 Dose: 40 mg Documented by: SAPPHIRE Piperacillin Sod/Tazobactam (Sod 2.25 gm/ Sodium Chloride) 50 mls @ 100 mls/hr IV Q6H [facility] Last Infusion: 08/11/21 08:49 Dose: 0 mls/hr Documented by: SAPPHIRE Vancomycin HCl 500 mg/ Sodium (Chloride) 110 mls @ 110 mls/hr IV Q24H [facility] Last Infusion: 08/10/21 22:35 Dose: 0 mls/hr Documented by: MATTHEW Sodium Chloride (Ns) 1,000 mls @ 50 mls/hr IVCONT .Q20H [facility] Last Infusion: 08/11/21 02:57 Dose: 50 mls/hr Documented by: JUSTIN Levothyroxine Sodium (Levothyroxine Sodium 50 Mcg Tablet) 50 mcg PO DAILY@0600 [facility] Last Admin: 08/11/21 05:52 Dose: 50 mcg Documented by: JUSTIN Loratadine (Loratadine 10 Mg Tablet) 10 mg PO DAILY [facility] Last Admin: 08/11/21 07:48 Dose: 10 mg Documented by: SAPPHIRE Melatonin (Melatonin 3 Mg Tablet) 6 mg PO BEDTIME PRN PRN Reason: Insomnia Last Admin: 08/10/21 20:36 Dose: 6 mg Documented by: MATTHEW Midodrine (Midodrine Hcl 5 Mg Tablet) 5 mg PO TID [facility] Last Admin: 08/11/21 07:48 Dose: 5 mg Documented by: SAPPHIRE Montelukast Sodium (Montelukast Sodium 10 Mg Tablet) 10 mg PO BEDTIME [facility] Last Admin: 08/10/21 20:22 Dose: 10 mg Documented by: MATTHEW Omeprazole (Omeprazole 20 Mg Capsule.Dr) 20 mg PO DAILY@0630 [facility] Last Admin: 08/11/21 05:52 Dose: 20 mg Documented by: JUSTIN Pharmacy Consult (Consult Rx Vancomycin Dosing) 1 each MISCELLANE DAILY PRN PRN Reason: Consult order Pharmacy Consult (Consult Rx Vancomycin Dosing) 1 each MISCELLANE DAILY PRN PRN Reason: Consult order Senna (Sennosides 8.6 Mg Tablet) 17.2 mg PO BEDTIME PRN PRN Reason: Constipation Sodium Chloride (0.9 % Sodium Chloride Flush 3 Ml Syringe) 3 ml IVFLUSH QSHIFT [facility] Last Admin: 08/11/21 07:48 Dose: 3 ml Documented by: SAPPHIRE Vitamin D (Cholecalciferol (Vitamin D3) 25 Mcg Tablet) 50 mcg PO DAILY [facility] Last Admin: 08/11/21 07:47 Dose: 50 mcg Documented by: SAPPHIRE Labs CBC & Chem 7: 08/10/21 07:42 08/11/21 05:15 Labs: Laboratory Results - last 24 hr 08/11/21 08/11/21 08/11/21 05:15 05:15 05:15 PT 51.7 H INR 4.4 H Anion Gap 13 Estim Creat Clear Calc Cancelled 18.5 Estimated GFR Cancelled 18 Random Glucose 73 Calcium 8.0 L Microbiology Microbiology Results: Microbiology 08/09/21 14:18 Blood Culture - Preliminary Blood - Venous No growth after 24 hours. 08/09/21 14:18 Blood Culture - Preliminary Blood - Venous No growth after 24 hours. Assessment and Plan (1) Non-healing wound of right lower extremity: Status: Acute (2) Lymphedema: Status: Acute (3) Cellulitis of right leg: Status: Acute Plan 81-year-old female with a past medical history of hypertension, CHF, AFib on C oumadin, asthma, hypothyroidism, venous stasis, history of recurrent lower extremity cellulitis; presented to the hospital today with a chief complaint of right lower extremity pain, tenderness, discharge; noted to have leukocytosis of 25; concern for right lower extremity cellulitis.? Admitted for further management. Right lower extremity cellulitis. No abscess on ultrasound Patient has prior history of similar presentation.? Has chronic venous stasis/lymphedema. discharging open ulcer on the right leg anteriorly.? Foul smelling.? Continue IV vancomycin and Zosyn Id consult wound care with indio and silver alginate JEN. Likely prerenal.? Avoid nephrotoxins.? Gentle IV fluids. History of asthma Stable.? Patient on Xolair.? Nebulizations p.r.n.. History of AFib. Rate controlled.? Will hold home diltiazem given soft blood pressure.? INR supratherapeutic. Still high today Monitor INR and resume Coumadin accordingly. Attending Dr. Mcneil DVT prophylaxis:? Patient on Coumadin Code status:? Full code Quality Stroke Does the patient have a stroke diagnosis?: No VTE Prior VTE?: No VTE Risk Level:: Medical - moderate - high VTE Device Contraindication: Treatment Not Indicated VTE Drug Contraindication: N/A - Med Ordered
--- NOTE | 2021-08-11 14:01 | MHC.CM.PN ---
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
--- NOTE | 2021-08-11 16:25 | P.CNID_ITS ---
History of Present Illness Data of Consult Service Date: 08/11/21 Requesting physician: [place] Primary Care Provider: Laxmi Gutierrez MD HPI Reason for consult: cellulitis right leg She presents with redness and swelling bilateral legs,worse on right. She has no fever or chills now but WBC 25,000. She has abrasion RLE but denies injury Review of Systems Review of Systems: Yes all other systems are reviewed and are negative [facility] Past Medical History Medical History Afib Asthma CHF (congestive heart failure) HTN (hypertension) Hypothyroid Sepsis Venous stasis dermatitis of right lower extremity Surgical History Surgical History S/P hip replacement Social History Social History Household Members: None Housing: Apartment Do you presently have visiting nurse or other home services: Yes Alcohol intake: never Patient Tobacco Use Status: Never used Tobacco Second Hand Smoke Exposure: No Advance Directives Date on File: 02/05/21 service: No Current occupational status: disabled Meds Allergies Allergy/AdvReac Type Severity Reaction Status Date / Time lisinopril [LISINOPRIL] Allergy Unknown UNKNOWN Verified 02/05/21 21:56 simvastatin [SIMVASTATIN] Allergy Unknown UNKNOWN Verified 02/05/21 21:56 Active Medications: Current Medications Acetaminophen (Acetaminophen 325 Mg Tablet) 650 mg PO Q6H PRN PRN Reason: Pain, Mild (Pain Scale 1-3) Last Admin: 08/11/21 07:47 Dose: 650 mg Documented by: Albuterol Sulfate (Albuterol Sulfate (0.083%) 2.5 Mg/3 Ml Vial.Neb) 2.5 mg INHALE Q4H PRN PRN Reason: Shortness Of Breath Benzonatate (Benzonatate 100 Mg Capsule) 100 mg PO TID PRN PRN Reason: Cough Last Admin: 08/10/21 20:36 Dose: 100 mg Documented by: Furosemide (Furosemide 40 Mg Tablet) 40 mg PO DAILY [facility]; Protocol Last Admin: 08/11/21 07:48 Dose: 40 mg Documented by: Vancomycin HCl 500 mg/ Sodium (Chloride) 110 mls @ 110 mls/hr IV Q24H [facility] Last Infusion: 08/10/21 22:35 Dose: Infused Documented by: Sodium Chloride (Ns) 1,000 mls @ 50 mls/hr IVCONT .Q20H [facility] Last Infusion: 08/11/21 02:57 Dose: 50 mls/hr Documented by: Levothyroxine Sodium (Levothyroxine Sodium 50 Mcg Tablet) 50 mcg PO DAILY@0600 [facility] Last Admin: 08/11/21 05:52 Dose: 50 mcg Documented by: Loratadine (Loratadine 10 Mg Tablet) 10 mg PO DAILY [facility] Last Admin: 08/11/21 07:48 Dose: 10 mg Documented by: Melatonin (Melatonin 3 Mg Tablet) 6 mg PO BEDTIME PRN PRN Reason: Insomnia Last Admin: 08/10/21 20:36 Dose: 6 mg Documented by: Midodrine (Midodrine Hcl 5 Mg Tablet) 5 mg PO TID [facility] Last Admin: 08/11/21 14:02 Dose: 5 mg Documented by: Montelukast Sodium (Montelukast Sodium 10 Mg Tablet) 10 mg PO BEDTIME [facility] Last Admin: 08/10/21 20:22 Dose: 10 mg Documented by: Omeprazole (Omeprazole 20 Mg Capsule.Dr) 20 mg PO DAILY@0630 [facility] Last Admin: 08/11/21 05:52 Dose: 20 mg Documented by: Pharmacy Consult (Consult Rx Vancomycin Dosing) 1 each MISCELLANE DAILY PRN PRN Reason: Consult order Pharmacy Consult (Consult Rx Vancomycin Dosing) 1 each MISCELLANE DAILY PRN PRN Reason: Consult order Senna (Sennosides 8.6 Mg Tablet) 17.2 mg PO BEDTIME PRN PRN Reason: Constipation Sodium Chloride (0.9 % Sodium Chloride Flush 3 Ml Syringe) 3 ml IVFLUSH QSHIFT [facility] Last Admin: 08/11/21 15:28 Dose: Not Given Documented by: Vitamin D (Cholecalciferol (Vitamin D3) 25 Mcg Tablet) 50 mcg PO DAILY [facility] Last Admin: 08/11/21 07:47 Dose: 50 mcg Documented by: Home Medications Medication Instructions Recorded Confirmed Last Taken Type calcium carbonate 600 mg-vitamin 1 tab PO BID 02/04/21 08/09/21 05/02/21 History D3 10 mcg (400 unit) tablet cholecalciferol (vitamin D3) 50 50 mcg PO DAILY 02/04/21 08/09/21 05/02/21 History mcg (2,000 unit) capsule (Vitamin D3) diltiazem HCl 120 mg capsule,24 120 mg PO BID 02/04/21 08/09/21 05/02/21 History hr,extended release ferrous sulfate 325 mg (65 mg 325 mg PO DAILY 02/04/21 08/09/21 05/02/21 History iron) tablet (FeroSul) levothyroxine 50 mcg tablet 50 mcg PO DAILY 02/04/21 08/09/21 05/02/21 History loratadine 10 mg tablet 10 mg PO DAILY 02/04/21 08/09/21 05/02/21 History midodrine 5 mg tablet 5 mg PO TID 02/04/21 08/09/21 05/02/21 History omeprazole 20 mg capsule,delayed 20 mg PO DAILY@0630 02/04/21 08/09/21 02/03/21 History release warfarin 2.5 mg tablet 5 mg PO DAILY 02/04/21 08/09/21 05/02/21 History fluticasone fur. 100 mcg-umeclid 1 puff INHALATION DAILY 05/03/21 08/09/21 05/02/21 History 62.5 mcg-vilant 25 mcg inhalat.powder (Trelegy Ellipta) omalizumab 150 mg subcutaneous 300 mg SUBCUT Q2W 05/03/21 08/09/21 Unknown History solution (Xolair) albuterol sulfate 2.5 mg INHALATION Q4H PRN 08/09/21 08/09/21 Unknown History furosemide 40 mg tablet 1 tab PO DAILY 08/09/21 08/09/21 Unknown History montelukast 10 mg tablet 1 tab PO DAILY 08/09/21 08/09/21 Unknown History Physical Exam Vital Signs: Vital Signs: Last Vital Signs Temp 98.4 F 08/11/21 15:26 Pulse 98 08/11/21 15:26 Resp 18 08/11/21 15:26 BP 118/79 08/11/21 15:26 Pulse Ox 99 08/11/21 15:26 BMI result Body Mass Index 34.3 Const: General: cooperative HENMT: Head: Yes normal to inspection Mouth: Normal oral and palatal mucosa present Resp: Effort & Inspection: normal respiratory effort Cardio: Rate: regular rate Rhythm: regular rhythm GI: Palpation (GI): Soft to palpation and nontender Skin: General skin exam: no rashes or lesions noted Extrem: Other: bilateral lower extremity edema right leg reddened below knee no tinea pedis abrasion lateral leg Results Labs CBC & Chem 7: 08/17/21 04:29 08/18/21 08:59 Labs: BMP 08/11/21 08/11/21 05:15 05:15 Sodium 142 Potassium 4.5 Chloride 102 Carbon Dioxide 32 H BUN 45 H Creatinine Cancelled 2.50 H Calcium 8.0 L Microbiology Microbiology Results: Microbiology 08/09/21 14:18 Blood - Venous Blood Culture - Preliminary No growth after 24 hours. 08/09/21 14:18 Blood - Venous Blood Culture - Preliminary No growth after 24 hours. Assessment and Plan (1) Cellulitis of right leg: (2) Venous stasis dermatitis of right lower extremity: (3) Sepsis: Status: Resolved Sepsis with tachycardia and leukocytosis. She has purulent drainage from RLE. There is concern over MRSA,do not think Pseudomonas Plan Would give IV Vancomycin. Possibly IV 2-3 days and then po Doxycycline for total 10 d Stop Zosyn Await cultures.
[2021-08-11 20:08] LABS: Vancomycin Trough 18.4 mcg/mL (10.0-20.0)
--- NOTE | 2021-08-11 20:24 | PHA.PROG ---
Admission Date/Time: August 09, 2021 19:25 Indication: Skin Infection Weight in k.997 kg Adjusted body weight in K.639 kg [place] body weight in K.4 kg Obesity Dosing Indication % IBW: 167% Serum Creatinine - Last 168 Hours 08/09/21 08/10/21 08/10/21 14:18 07:41 07:41 Creatinine 2.34 H 2.74 H 2.67 H 08/11/21 08/11/21 05:15 05:15 Creatinine Cancelled 2.50 H Estimated CrCl and GFR - Last 168 Hours 08/09/21 08/10/21 08/10/21 14:18 07:41 07:41 Estim Creat Clear Calc 19.8 16.9 17.3 Estimated GFR 20 17 17 08/11/21 08/11/21 05:15 05:15 Estim Creat Clear Calc Cancelled 18.5 Estimated GFR Cancelled 18 Vancomycin Loading Dose: 1500 mg (17 mg/kg) Current Vancomycin Dosing Regimen: 500 mg Q24H Vancomycin Trough 18.4 mcg/mL (10.0-20.0) 08/11/21 19:14 Pharmacist Comments on Vancomycin Plan: Patient is obese, elderly and has poor renal function, therefore level can be unpredictable and pharmacy will carefully monitor patient Patient trough after 2 doses was 18.4. If continue with same regimen, patient will have a trough > 20. Will change patient vancomycin 750 mg Q48H. Expected AUC 450 with a trough of 13.7 Patient is currently schedule to start Q48H dosing 08/12 @ 2100 (48 hours since last dose). Will draw a random level in the morning 08/12 @ 0600 with morning labs. If patient level is low then we will start Q48H dosing on 08/12 @ 0900 Pharmacy will continue to monitor renal function as patient is in JEN and on multiple nephrotoxic drugs Laura Ibrahim PharmD Vancomycin dosing will take advantage of [employer] as a clinical decision support tool that uses Bayesian modeling to calculate individual patient's pharmacokinetic parameters and forecast the patient's drug concentration time course with the target goal AUC 24 range of 400 - 600 mg/L/hr.
[2021-08-11] MEDS: Montelukast Sodium 10 MG TABLET PO (20:39)
[2021-08-12] VITALS (7 sets, daily range): BP systolic 93–140; BP diastolic 54–72; PULSE 87–131; RESP 16–22; TEMP 36.2–37.2; O2SAT 95–98
[2021-08-12 06:08] LABS: INTERNATIONAL NORM RATIO 3.3 (0.9-1.1); Prothrombin Time 38.7 SEC (9.9-13.0)
[2021-08-12] MEDS: Levothyroxine Sodium 50 MCG TABLET PO (06:12)
[2021-08-12] MEDS: Omeprazole 20 MG CAPSULE.DR PO (06:12)
[2021-08-12 06:22] LABS: Vancomycin Random 17.3 mcg/mL (15-20)
[2021-08-12 06:30] LABS: Creatinine Clr Calc Pharmacy 21.3; Estimated Glomerular Filt Rate 22
--- NOTE | 2021-08-12 06:51 | HE.PHANOTE ---
RE Vancomycin Random from 0600 returned at 17.3. SCr did drop to 2.17. Will keep regimen at 750mg q48h (dose due 08/12 @2100). Random ordered for tomorrow to assess efficacy and safety due to patients CKD and other risk factors for toxicity. Will discuss with provider to see if we can deescalate therapy. Thanks Shelby Bundy
[2021-08-12] MEDS: Loratadine 10 MG TABLET PO (07:41)
[2021-08-12] MEDS: Acetaminophen 325 MG TABLET 650 MG PO ×2 (07:41→15:31)
[2021-08-12] MEDS: Midodrine HCl 5 MG TABLET PO ×3 (07:41→20:42)
[2021-08-12] MEDS: Furosemide 40 MG TABLET PO (07:41)
[2021-08-12] MEDS: Cholecalciferol (Vitamin D3) 25 MCG TABLET 50 MCG PO (07:42)
[2021-08-12] MEDS: 0.9 % Sodium Chloride 1,000 ML 50 ML IVCONT (07:45)
[2021-08-12 08:13] LABS: Hematocrit 33.5 % (37.0-47.0); Hemoglobin 9.9 g/dl (12.0-16.0); Mean Corpuscular HGB Conc 29.6 g/dl (31.0-35.0); Mean Corpuscular Hemoglobin 28.1 pg (27.0-33.0); Mean Corpuscular Volume 95.2 fL (80.0-98.0); Mean Platelet Volume 11.1 fL (9.4-12.3); Platelet Count 171 X10*3/uL (160-400); Red Blood Count 3.52 X10*6/uL (4.20-5.50); Red Cell Distribution Width 14.8 % (11.0-16.0); White Blood Count 7.6 X10*3/uL (4.8-10.8)
[2021-08-12] MEDS: dilTIAZem HCL 30 MG TABLET PO (11:10)
--- NOTE | 2021-08-12 12:57 | PC.NURSE ---
Skin/wound assessment completed. Patient has venous stasis ulcers to bilateral legs right > left. And Lymphedema to bilateral legs right > left. Triad applied to moist ulcers covered with non woven gauze and roll gauze. Parminder wraps applied to reduce swelling.
--- NOTE | 2021-08-12 13:01 | P.PNIM_ITS ---
Subjective Subjective Date of Service: 08/12/21 Interval History: seen and examined this morning history obtained with use of manager care follow up for cellulitis no fever or chills this morning still reporting pain in right leg and bilateral knees Review of Systems Review of Systems: Yes all other systems are reviewed and are negative Cardiovascular Cardiovascular: Denies chest pain Respiratory Respiratory: Reports cough (reports chronic) Gastrointestinal Gastrointestinal: Denies abdominal pain Musculoskeletal knee pain Physical Exam Vital Signs: Vital Signs: Last Vital Signs Temp 98 F 08/12/21 11:11 Pulse 87 08/12/21 11:11 Resp 18 08/12/21 11:11 BP 101/57 L 08/12/21 11:11 Pulse Ox 97 08/12/21 11:11 BMI result Body Mass Index 34.3 Const: General: cooperative, healthy appearing, alert and awake Nutritional Appearance: overweight Resp: Effort & Inspection: normal respiratory effort and able to speak in complete sentences Cardio: Rate: regular rate Heart sounds: S1 normal heart sound present and S2 normal heart sound present Extrem: Other: right leg warm, chronic venous stasis changes, edema; wrapped in bandage; left leg no warmth Objective Data Active Medications Acetaminophen (Acetaminophen 325 Mg Tablet) 650 mg PO Q6H PRN PRN Reason: Pain, Mild (Pain Scale 1-3) Last Admin: 08/12/21 07:41 Dose: 650 mg Documented by: SAPPHIRE Albuterol Sulfate (Albuterol Sulfate (0.083%) 2.5 Mg/3 Ml Vial.Neb) 2.5 mg INHALE Q4H PRN PRN Reason: Shortness Of Breath Benzonatate (Benzonatate 100 Mg Capsule) 100 mg PO TID PRN PRN Reason: Cough Last Admin: 08/10/21 20:36 Dose: 100 mg Documented by: MATTHEW Furosemide (Furosemide 40 Mg Tablet) 40 mg PO DAILY [facility]; Protocol Last Admin: 08/12/21 07:41 Dose: 40 mg Documented by: SAPPHIRE Sodium Chloride (Ns) 1,000 mls @ 50 mls/hr IVCONT .Q20H [facility] Last Admin: 08/12/21 07:45 Dose: 50 mls/hr Documented by: SAPPHIRE Vancomycin HCl 750 mg/ Sodium (Chloride) 265 mls @ 265 mls/hr IV Q48H [facility] Levothyroxine Sodium (Levothyroxine Sodium 50 Mcg Tablet) 50 mcg PO DAILY@0600 [facility] Last Admin: 08/12/21 06:12 Dose: 50 mcg Documented by: DILEEP Loratadine (Loratadine 10 Mg Tablet) 10 mg PO DAILY [facility] Last Admin: 08/12/21 07:41 Dose: 10 mg Documented by: SAPPHIRE Melatonin (Melatonin 3 Mg Tablet) 6 mg PO BEDTIME PRN PRN Reason: Insomnia Last Admin: 08/10/21 20:36 Dose: 6 mg Documented by: MATTHEW Midodrine (Midodrine Hcl 5 Mg Tablet) 5 mg PO TID [facility] Last Admin: 08/12/21 07:41 Dose: 5 mg Documented by: SAPPHIRE Montelukast Sodium (Montelukast Sodium 10 Mg Tablet) 10 mg PO BEDTIME [facility] Last Admin: 08/11/21 20:39 Dose: 10 mg Documented by: DILEEP Omeprazole (Omeprazole 20 Mg Capsule.Dr) 20 mg PO DAILY@0630 [facility] Last Admin: 08/12/21 06:12 Dose: 20 mg Documented by: DILEEP Pharmacy Consult (Consult Rx Vancomycin Dosing) 1 each MISCELLANE DAILY PRN PRN Reason: Consult order Pharmacy Consult (Consult Rx Vancomycin Dosing) 1 each MISCELLANE DAILY PRN PRN Reason: Consult order Senna (Sennosides 8.6 Mg Tablet) 17.2 mg PO BEDTIME PRN PRN Reason: Constipation Sodium Chloride (0.9 % Sodium Chloride Flush 3 Ml Syringe) 3 ml IVFLUSH QSHIFT [facility] Last Admin: 08/12/21 07:42 Dose: Not Given Documented by: SAPPHIRE Non-Admin Reason: IV Running Vitamin D (Cholecalciferol (Vitamin D3) 25 Mcg Tablet) 50 mcg PO DAILY [facility] Last Admin: 08/12/21 07:42 Dose: 50 mcg Documented by: SAPPHIRE Labs CBC & Chem 7: 08/12/21 06:09 08/12/21 05:22 Labs: Laboratory Results - last 24 hr 08/11/21 08/12/21 08/12/21 19:14 05:22 05:22 MCV MCH MCHC RDW Plt Count MPV Absolute Nucleated RBC Nucleated RBC % (auto) PT 38.7 H INR 3.3 H Estim Creat Clear Calc Estimated GFR Vancomycin Trough 18.4 Random Vancomycin 17.3 08/12/21 08/12/21 05:22 06:09 MCV 95.2 MCH 28.1 MCHC 29.6 L RDW 14.8 Plt Count 171 MPV 11.1 Absolute Nucleated RBC 0.000 Nucleated RBC % (auto) 0.0 PT INR Estim Creat Clear Calc 21.3 Estimated GFR 22 Vancomycin Trough Random Vancomycin Microbiology Microbiology Results: Microbiology 08/09/21 14:18 Blood Culture - Preliminary Blood - Venous No growth after 48 hours. 08/09/21 14:18 Blood Culture - Preliminary Blood - Venous No growth after 48 hours. Assessment and Plan (1) Cellulitis of right leg: Status: Acute (2) Lymphedema: Status: Acute Plan 81-year-old female with a past medical history of hypertension, CHF, AFib on Coumadin, asthma, hypothyroidism, venous stasis, history of recurrent lower extremity cellulitis; presented to the hospital today with a chief complaint of right lower extremity pain, tenderness, discharge; noted to have leukocytosis of 25; concern for right lower extremity cellulitis.? Admitted for further management. Right lower extremity cellulitis. No abscess on ultrasound Patient has prior history of similar presentation.? Has chronic venous stasis/lymphedema discharge/ open ulcer on the right leg anteriorly Initially treated with IV vanco and zosyn; seen by ID landry d/c; possible doxy for 10 days on discharge ID following continue wound care with indio and silver alginate; leg elevation Blood cultures negative to date JEN. Likely prerenal? SCr trending down Avoid nephrotoxins.? Follow renal function History of asthma Stable.? Patient on Xolair.? Nebulizations p.r.n.. History of AFib. Rate controlled.? BP soft but on midodrine at baseline given dose of po cardizem this am follow HR INR supratherapeutic. Still high today, 3.3 Monitor INR and resume Coumadin accordingly. Attending Dr. Mcneil DVT prophylaxis:? Patient on Coumadin Code status:? Full code Quality Stroke Does the patient have a stroke diagnosis?: No VTE Prior VTE?: No VTE Risk Level:: Medical - moderate - high VTE Device Contraindication: Treatment Not Indicated VTE Drug Contraindication: N/A - Med Ordered
[2021-08-12] MEDS: 0.9 % Sodium Chloride Flush 3 ML SYRINGE IVFLUSH ×2 (15:17→20:44)
[2021-08-12] MEDS: Benzonatate 100 MG CAPSULE PO (18:24)
[2021-08-12] MEDS: Montelukast Sodium 10 MG TABLET PO (20:42)
[2021-08-12] MEDS: vancomycin HCL 750 MG in 0.9 % Sodium Chloride 250 ML 265 MG IV (20:44)
[2021-08-13 03:39] VITALS: BP 97/66; PULSE 112; RESP 20; TEMP 37.1; O2SAT 95
[2021-08-13] MEDS: Omeprazole 20 MG CAPSULE.DR PO (06:02)
[2021-08-13] MEDS: Levothyroxine Sodium 50 MCG TABLET PO (06:02)
[2021-08-13 06:43] LABS: Anion Gap 10 (12-20); Blood Urea Nitrogen 33 mg/dL (9-16); Calcium 8.2 mg/dL (8.4-10.2); Carbon Dioxide 30 mmol/L (22-29); Chloride 105 mmol/L (96-108); Creatinine Clr Calc Pharmacy 26.9; Estimated Glomerular Filt Rate 28; Glucose Random 85 mg/dL (60-115); Potassium 4.2 mmol/L (3.3-5.1); Sodium 141 mmol/L (135-145)
[2021-08-13] MEDS: Cholecalciferol (Vitamin D3) 25 MCG TABLET 50 MCG PO (07:52)
[2021-08-13] MEDS: Midodrine HCl 5 MG TABLET PO (07:52)
[2021-08-13] MEDS: Furosemide 40 MG TABLET PO (07:53)
[2021-08-13] MEDS: Loratadine 10 MG TABLET PO (07:53)
[2021-08-13] MEDS: 0.9 % Sodium Chloride Flush 3 ML SYRINGE IVFLUSH (07:54)
[2021-08-13 08:00] VITALS: BP 87/62; PULSE 120; RESP 20; TEMP 36.7; O2SAT 98
[2021-08-13] MEDS: dilTIAZem HCL 30 MG TABLET PO (10:25)
[2021-08-13 10:32] VITALS: BP 87/62; PULSE 120; O2SAT 98
--- NOTE | 2021-08-13 11:09 | HO.PM.IMPN ---
Subjective Subjective Date of Service: 08/13/21 Interval History: seen and examined this morning reporting pain in right leg bp still on lower side, patient denies dizziness no shortness of breath or chest pain Review of Systems Review of Systems: Yes all other systems are reviewed and are negative Constitutional Constitutional: Denies chills and Denies fever(s) Cardiovascular Cardiovascular: Denies chest pain, Denies palpitations and Denies dyspnea Respiratory Respiratory: Denies dyspnea Endocrine Endocrine: Denies palpitations Physical Exam Vital Signs: Vital Signs: Last Vital Signs Temp 98.1 F 08/13/21 08:00 Pulse 120 H 08/13/21 10:32 Resp 20 08/13/21 08:00 BP 87/62 L 08/13/21 10:32 Pulse Ox 98 08/13/21 10:32 BMI result Body Mass Index 34.3 Const: General: cooperative, healthy appearing, alert and awake Nutritional Appearance: overweight Resp: Other: basilar crackles otherwise clear, no wheezing Effort & Inspection: normal respiratory effort and able to speak in complete sentences Cardio: Rate: regular rate Heart sounds: S1 normal heart sound present and S2 normal heart sound present Skin: Other: Objective Data Active Medications Acetaminophen (Acetaminophen 325 Mg Tablet) 650 mg PO Q6H PRN PRN Reason: Pain, Mild (Pain Scale 1-3) Last Admin: 08/12/21 15:31 Dose: 650 mg Documented by: AWAIS Albuterol Sulfate (Albuterol Sulfate (0.083%) 2.5 Mg/3 Ml Vial.Neb) 2.5 mg INHALE Q4H PRN PRN Reason: Shortness Of Breath Benzonatate (Benzonatate 100 Mg Capsule) 100 mg PO TID PRN PRN Reason: Cough Last Admin: 08/12/21 18:24 Dose: 100 mg Documented by: AWAIS Diltiazem HCl (Diltiazem Hcl 30 Mg Tablet) 15 mg PO Q6H [facility]; Protocol Furosemide (Furosemide 40 Mg Tablet) 40 mg PO DAILY [facility]; Protocol Last Admin: 08/13/21 07:53 Dose: 40 mg Documented by: IFRAH Vancomycin HCl 750 mg/ Sodium (Chloride) 265 mls @ 265 mls/hr IV Q48H [facility] Last Infusion: 08/12/21 23:38 Dose: 0 mls/hr Documented by: DILEEP Lactated Ringer's (Lr) 1,000 mls @ 80 mls/hr IVCONT .[id number] [facility] Stop: 08/13/21 23:29 Levothyroxine Sodium (Levothyroxine Sodium 50 Mcg Tablet) 50 mcg PO DAILY@0600 [facility] Last Admin: 08/13/21 06:02 Dose: 50 mcg Documented by: DILEEP Loratadine (Loratadine 10 Mg Tablet) 10 mg PO DAILY [facility] Last Admin: 08/13/21 07:53 Dose: 10 mg Documented by: IFRAH Melatonin (Melatonin 3 Mg Tablet) 6 mg PO BEDTIME PRN PRN Reason: Insomnia Last Admin: 08/10/21 20:36 Dose: 6 mg Documented by: MATTHEW Midodrine (Midodrine Hcl 10 Mg Tablet) 10 mg PO TID [facility] Montelukast Sodium (Montelukast Sodium 10 Mg Tablet) 10 mg PO BEDTIME [facility] Last Admin: 08/12/21 20:42 Dose: 10 mg Documented by: DILEEP Omeprazole (Omeprazole 20 Mg Capsule.Dr) 20 mg PO DAILY@0630 [facility] Last Admin: 08/13/21 06:02 Dose: 20 mg Documented by: DILEEP Pharmacy Consult (Consult Rx Vancomycin Dosing) 1 each MISCELLANE DAILY PRN PRN Reason: Consult order Pharmacy Consult (Consult Rx Vancomycin Dosing) 1 each MISCELLANE DAILY PRN PRN Reason: Consult order Senna (Sennosides 8.6 Mg Tablet) 17.2 mg PO BEDTIME PRN PRN Reason: Constipation Sodium Chloride (0.9 % Sodium Chloride Flush 3 Ml Syringe) 3 ml IVFLUSH QSHIFT [facility] Last Admin: 08/13/21 07:54 Dose: 3 ml Documented by: IFRAH Vitamin D (Cholecalciferol (Vitamin D3) 25 Mcg Tablet) 50 mcg PO DAILY [facility] Last Admin: 08/13/21 07:52 Dose: 50 mcg Documented by: IFRAH Labs CBC & Chem 7: 08/12/21 06:09 08/13/21 06:12 Labs: Laboratory Results - last 24 hr 08/13/21 08/13/21 06:12 06:12 PT 23.0 H INR 2.0 H Anion Gap 10 L Estim Creat Clear Calc 26.9 Estimated GFR 28 Random Glucose 85 Calcium 8.2 L Assessment and Plan (1) Atrial fibrillation with rapid ventricular response: Status: Acute (2) Cellulitis of right leg: Status: Acute (3) Lymphedema: Status: Acute (4) Acute kidney failure: Status: Acute Plan 81-year-old female with a past medical history of hypertension, CHF, AFib on Coumadin, asthma, hypothyroidism, venous stasis, history of recurrent lower extremity cellulitis; presented to the hospital today with a chief complaint of right lower extremity pain, tenderness, discharge; noted to have leukocytosis of 25; concern for right lower extremity cellulitis.? Admitted for further management. Right lower extremity cellulitis. leukocytosis resolved. afebrile, but Swelling and erythema worsening - will obtain CT scan to eval for abscess No abscess on ultrasound Patient has prior history of similar presentation.? Has chronic venous stasis/lymphedema discharge/ open ulcer on the right leg anteriorly Initially treated with IV vanco and zosyn; seen by ID joannen d/c; possible doxy for 10 days on discharge continue wound care with indio and silver alginate; leg elevation Blood cultures negative to date Atrial fibrillation with RVR soft bp making HR control difficult HR uncontrolled cardizem has been on hold due to soft bp seen by cardiology rec to increase midodrine to 10 tid and try lower dose of schedule cardizem at 15q6h tele monitor JEN. Likely prerenal? SCr trending down Avoid nephrotoxins.? Follow renal function History of asthma Stable.? Patient on Xolair.? Nebulizations p.r.n.. INR supratherapeutic. Still high today, 3.3 Monitor INR and resume Coumadin accordingly. Attending Dr. Mcneil DVT prophylaxis:? Patient on Coumadin Code status:? Full code Quality Stroke Does the patient have a stroke diagnosis?: No VTE Prior VTE?: No VTE Risk Level:: Medical - moderate - high VTE Device Contraindication: Treatment Not Indicated VTE Drug Contraindication: N/A - Med Ordered
[2021-08-13] MEDS: Lactated Ringers 1,000 ML 80 ML IVCONT (11:47)
[2021-08-13 12:00] VITALS: BP 96/65; PULSE 125; RESP 22; TEMP 35.1; O2SAT 98
[2021-08-13] MEDS: Benzonatate 100 MG CAPSULE PO (12:12)
--- NOTE | 2021-08-13 14:08 | PM.CNCAR ---
History of Present Illness History of Present Illness Date of Service: 08/13/21 Requesting physician: Ilene Hunter Consult reason: atrial fibrillation Chief complaint: Cellulitis Narrative: I was consulted to see Adriana in cardiology consultation today because of atrial fibrillation with difficult control rate, patient admitted with cellulitis and question sepsis. she has received IV antibiotics throughout and continues to have pain in the right leg actually she complains of pain in both her legs. She remains in atrial fibrillation with uncontrolled ventricular response up to 120 beats per minute with blood pressure systolic in the 80s. She denies lightheadedness. She denies palpitations. She has chronic atrial fibrillation at least going back looks like more than 4 years. However this is not absolutely certain. She is on oral anticoagulation therapy. She was admitted with acute on chronic kidney injury, sepsis/cellulitis and has chronic atrial fibrillation on chronic anticoagulation. She has received fluids her creatinine is improved however blood pressure remains low and atrial fibrillation difficult control. She has not been able to tolerate Cardizem therapy. She has history of prior low blood pressure. She is currently on midodrine 5 mg 3 times a day. No overt heart failure symptoms although does some crackles identified on today's exam. Review of Systems Constitutional: Constitutional: Reports fatigue and Reports lethargy Eyes: Eyes: Reports no additional eye complaints Cardiovascular: Cardiovascular: Denies chest pain, Reports leg ulcers, Denies lightheadedness, Denies Loss of Consciousness, Denies palpitations and Denies dyspnea Respiratory: Respiratory: Reports no additional respiratory complaints and Denies dyspnea Gastrointestinal: Gastrointestinal: Reports no additional gastrointestinal complaints Musculoskeletal: Musculoskeletal: Reports other ( Bilateral leg pain) Neurologic: Reports system reviewed and no additional complaints, except as documented Psychiatric: Psychiatric: Reports no additional psychiatric complaints Endocrine: Endocrine: Reports fatigue and Denies palpitations [facility] Past Medical History Medical History Afib Asthma CHF (congestive heart failure) HTN (hypertension) Hypothyroid Sepsis Venous stasis dermatitis of right lower extremity Surgical History Surgical History S/P hip replacement Social History Social History Household Members: None Housing: Apartment Do you presently have visiting nurse or other home services: Yes Alcohol intake: never Patient Tobacco Use Status: Never used Tobacco Second Hand Smoke Exposure: No Advance Directives Date on File: 02/05/21 service: No Current occupational status: disabled Meds Allergies Allergy/AdvReac Type Severity Reaction Status Date / Time lisinopril [LISINOPRIL] Allergy Unknown UNKNOWN Verified 02/05/21 21:56 simvastatin [SIMVASTATIN] Allergy Unknown UNKNOWN Verified 02/05/21 21:56 Active Medications: Current Medications Acetaminophen (Acetaminophen 325 Mg Tablet) 650 mg PO Q6H PRN PRN Reason: Pain, Mild (Pain Scale 1-3) Last Admin: 08/12/21 15:31 Dose: 650 mg Documented by: Albuterol Sulfate (Albuterol Sulfate (0.083%) 2.5 Mg/3 Ml Vial.Neb) 2.5 mg INHALE Q4H PRN PRN Reason: Shortness Of Breath Benzonatate (Benzonatate 100 Mg Capsule) 100 mg PO TID PRN PRN Reason: Cough Last Admin: 08/13/21 12:12 Dose: 100 mg Documented by: Diltiazem HCl (Diltiazem Hcl 30 Mg Tablet) 15 mg PO Q6H [facility]; Protocol Furosemide (Furosemide 40 Mg Tablet) 40 mg PO DAILY [facility]; Protocol Last Admin: 08/13/21 07:53 Dose: 40 mg Documented by: Vancomycin HCl 750 mg/ Sodium (Chloride) 265 mls @ 265 mls/hr IV Q48H [facility] Last Infusion: 08/12/21 23:38 Dose: Infused Documented by: Lactated Ringer's (Lr) 1,000 mls @ 80 mls/hr IVCONT .[id number] [facility] Stop: 08/13/21 23:29 Last Admin: 08/13/21 11:47 Dose: 80 mls/hr Documented by: Levothyroxine Sodium (Levothyroxine Sodium 50 Mcg Tablet) 50 mcg PO DAILY@0600 [facility] Last Admin: 08/13/21 06:02 Dose: 50 mcg Documented by: Loratadine (Loratadine 10 Mg Tablet) 10 mg PO DAILY [facility] Last Admin: 08/13/21 07:53 Dose: 10 mg Documented by: Melatonin (Melatonin 3 Mg Tablet) 6 mg PO BEDTIME PRN PRN Reason: Insomnia Last Admin: 08/10/21 20:36 Dose: 6 mg Documented by: Midodrine (Midodrine Hcl 10 Mg Tablet) 10 mg PO TID [facility] Montelukast Sodium (Montelukast Sodium 10 Mg Tablet) 10 mg PO BEDTIME [facility] Last Admin: 08/12/21 20:42 Dose: 10 mg Documented by: Omeprazole (Omeprazole 20 Mg Capsule.) 20 mg PO DAILY@0630 [facility] Last Admin: 08/13/21 06:02 Dose: 20 mg Documented by: Pharmacy Consult (Consult Rx Vancomycin Dosing) 1 each MISCELLANE DAILY PRN PRN Reason: Consult order Pharmacy Consult (Consult Rx Vancomycin Dosing) 1 each MISCELLANE DAILY PRN PRN Reason: Consult order Senna (Sennosides 8.6 Mg Tablet) 17.2 mg PO BEDTIME PRN PRN Reason: Constipation Sodium Chloride (0.9 % Sodium Chloride Flush 3 Ml Syringe) 3 ml IVFLUSH QSHIFT [facility] Last Admin: 08/13/21 07:54 Dose: 3 ml Documented by: Vitamin D (Cholecalciferol (Vitamin D3) 25 Mcg Tablet) 50 mcg PO DAILY [facility] Last Admin: 08/13/21 07:52 Dose: 50 mcg Documented by: Home Medications Medication Instructions Recorded Confirmed Last Taken Type calcium carbonate 600 mg-vitamin 1 tab PO BID 02/04/21 08/09/21 05/02/21 History D3 10 mcg (400 unit) tablet cholecalciferol (vitamin D3) 50 50 mcg PO DAILY 02/04/21 08/09/21 05/02/21 History mcg (2,000 unit) capsule (Vitamin D3) diltiazem HCl 120 mg capsule,24 120 mg PO BID 02/04/21 08/09/21 05/02/21 History hr,extended release ferrous sulfate 325 mg (65 mg 325 mg PO DAILY 02/04/21 08/09/21 05/02/21 History iron) tablet (FeroSul) levothyroxine 50 mcg tablet 50 mcg PO DAILY 02/04/21 08/09/21 05/02/21 History loratadine 10 mg tablet 10 mg PO DAILY 02/04/21 08/09/21 05/02/21 History midodrine 5 mg tablet 5 mg PO TID 02/04/21 08/09/21 05/02/21 History omeprazole 20 mg capsule,delayed 20 mg PO DAILY@0630 02/04/21 08/09/21 02/03/21 History release warfarin 2.5 mg tablet 5 mg PO DAILY 02/04/21 08/09/21 05/02/21 History fluticasone fur. 100 mcg-umeclid 1 puff INHALATION DAILY 05/03/21 08/09/21 05/02/21 History 62.5 mcg-vilant 25 mcg inhalat.powder (Trelegy Ellipta) omalizumab 150 mg subcutaneous 300 mg SUBCUT Q2W 05/03/21 08/09/21 Unknown History solution (Xolair) albuterol sulfate 2.5 mg INHALATION Q4H PRN 08/09/21 08/09/21 Unknown History furosemide 40 mg tablet 1 tab PO DAILY 08/09/21 08/09/21 Unknown History montelukast 10 mg tablet 1 tab PO DAILY 08/09/21 08/09/21 Unknown History Physical Exam Vital Signs: Vital Signs: Last Vital Signs Temp 95.2 F L 08/13/21 12:00 Pulse 125 H 08/13/21 12:00 Resp 22 H 08/13/21 12:00 BP 96/65 08/13/21 12:00 Pulse Ox 98 08/13/21 12:00 BMI result Body Mass Index 34.3 Const: General: cooperative, comfortable, alert, awake and tired appearing Nutritional Appearance: obese Orientation/consciousness: patient oriented x3 HENMT: Head: Yes normocephalic and Yes atraumatic Neck: Neck: Yes trachea midline, Yes supple and Yes no JVD Resp: Effort & Inspection: normal respiratory effort Auscultation: crackles ( coarse crackles at right base), wheezes and diminished lung sounds Cardio: Jugular venous distension: no JVD Rate: tachycardic Rhythm: abnormal rhythm irregularly irregular Heart sounds: S1 normal heart sound present, S2 normal heart sound present, no click, no gallops and no murmurs GI: Auscultation: normal bowel sounds Neuro: General: patient oriented x3 and no focal motor deficits Extrem: General: Yes venous stasis dermatitis and Yes other ( bilateral tenderness to the lower extremities with scaly skin) Objective Labs and Meds Result diagrams: 08/12/21 06:09 08/13/21 06:12 Lab results: Laboratory Results - last 24 hr 08/13/21 08/13/21 06:12 06:12 PT 23.0 H INR 2.0 H Sodium 141 Potassium 4.2 Chloride 105 Carbon Dioxide 30 H Anion Gap 10 L BUN 33 H Creatinine 1.72 H Estim Creat Clear Calc 26.9 Estimated GFR 28 Random Glucose 85 Calcium 8.2 L Assessment and Plan (1) Atrial fibrillation with rapid ventricular response: Status: Acute patient has chronic atrial fibrillation with difficult to control rate due to low blood pressure. My concern would be undertreated infection/sepsis. She is currently on midodrine 5 mg t.i.d.. Would increase to 10 mg t.i.d.. Would consider also given IV fluids. Clinically she does not appear to be in heart failure. Other lung crackles appear to be more atelectasis to me. Consider chest x-ray the same. Would gently hydrate and hold off on Lasix therapy for now. Continue to monitor respiratory status closely. Once a blood pressure is reasonable can start on Cardizem 15 mg p.o. q.6 hours for better rate control. Cannot use digoxin and/ metoprolol due to prior history of bronchospastic airway disease. For heart rate remains difficult control, continue to treat underlying situation/condition and may add amiodarone to her regimen. Currently on anticoagulation therapy, continue the same. full disclosure cardiac telemetry. Will follow with you Procedures Date of Service Date of Service: 08/13/21
[2021-08-13] MEDS: Midodrine HCl 10 MG TABLET PO ×2 (14:12→21:27)
[2021-08-13 15:44] VITALS: BP 135/77; PULSE 112; RESP 20; TEMP 36.1; O2SAT 97
[2021-08-13] MEDS: dilTIAZem HCL 30 MG TABLET 15 MG PO ×2 (16:06→21:27)
[2021-08-13 19:32] VITALS: BP 129/71; PULSE 84; RESP 18; TEMP 36.3; O2SAT 98
[2021-08-13 21:27] LABS: Vancomycin Random 15.1 mcg/mL (15-20)
[2021-08-13] MEDS: Montelukast Sodium 10 MG TABLET PO (21:27)
[2021-08-13] MEDS: vancomycin HCL 500 MG in 0.9 % Sodium Chloride 100 ML 110 MG IV (22:00)
[2021-08-14] VITALS: BP 100/63; PULSE 100; RESP 17; TEMP 36.6; O2SAT 97
[2021-08-14 04:00] VITALS: BP 90/69; PULSE 113; RESP 20; TEMP 36.4; O2SAT 97
[2021-08-14] MEDS: Omeprazole 20 MG CAPSULE.DR PO (05:05)
[2021-08-14] MEDS: Levothyroxine Sodium 50 MCG TABLET PO (05:05)
[2021-08-14 05:49] LABS: Hematocrit 34.3 % (37.0-47.0); Hemoglobin 10.1 g/dl (12.0-16.0); Mean Corpuscular HGB Conc 29.4 g/dl (31.0-35.0); Mean Corpuscular Hemoglobin 28.1 pg (27.0-33.0); Mean Corpuscular Volume 95.3 fL (80.0-98.0); Platelet Count 248 X10*3/uL (160-400); Red Cell Distribution Width 14.4 % (11.0-16.0); White Blood Count 6.2 X10*3/uL (4.8-10.8)
[2021-08-14 06:07] LABS: INTERNATIONAL NORM RATIO 1.5 (0.9-1.1); Prothrombin Time 17.7 SEC (9.9-13.0)
[2021-08-14 06:09] LABS: Anion Gap 9 (12-20); Blood Urea Nitrogen 25 mg/dL (9-16); Calcium 8.4 mg/dL (8.4-10.2); Carbon Dioxide 34 mmol/L (22-29); Chloride 102 mmol/L (96-108); Creatinine Clr Calc Pharmacy 31.5; Estimated Glomerular Filt Rate 34; Glucose Random 74 mg/dL (60-115); Potassium 4.2 mmol/L (3.3-5.1); Sodium 141 mmol/L (135-145)
[2021-08-14] MEDS: Midodrine HCl 10 MG TABLET PO ×3 (07:26→20:29)
[2021-08-14] MEDS: Furosemide 40 MG TABLET PO (07:27)
[2021-08-14] MEDS: Loratadine 10 MG TABLET PO (07:27)
[2021-08-14] MEDS: Cholecalciferol (Vitamin D3) 25 MCG TABLET 50 MCG PO (07:27)
[2021-08-14] MEDS: 0.9 % Sodium Chloride Flush 3 ML SYRINGE IVFLUSH ×2 (07:28→15:10)
[2021-08-14 08:00] VITALS: BP 92/56; PULSE 100; RESP 18; TEMP 36.6; O2SAT 98
--- NOTE | 2021-08-14 10:42 | MHC.CM.PN ---
PATIENT BEING MEDICALLY MANAGED AND MONITORED FOR A-FIB AND RVR. PLAN WILL BE RETURN HOME WITH RESUMPTION OF SERVICES AT DISCHARGE. NOT READY TODAY
[2021-08-14] MEDS: dilTIAZem HCL 30 MG TABLET 15 MG PO ×3 (11:10→20:29)
--- NOTE | 2021-08-14 11:18 | PM.PNCARD ---
Subjective Subjective Date of Service: 08/14/21 Principal diagnosis: atrial fibrillation Interval history: patient's blood pressure is marginally better with increase midodrine. Kidney function is improving. Heart rate is slightly better controlled. No worsening hypoxemia Review of Systems Review of Systems Yes all other systems are reviewed and are negative Physical Exam Vital Signs: Last Vital Signs Temp 98 F 08/14/21 08:00 Pulse 100 08/14/21 08:00 Resp 18 08/14/21 08:00 BP 92/56 L 08/14/21 08:00 Pulse Ox 98 08/14/21 08:00 BMI result Body Mass Index 34.3 Neck Neck: Yes trachea midline, Yes supple and Yes no JVD Resp Effort & Inspection: decreased respiratory effort Auscultation: crackles ( coarse) Cardio Rhythm: abnormal rhythm irregularly irregular Heart sounds: S1 normal heart sound present, S2 normal heart sound present, no click, no gallops and no murmurs GI Auscultation: normal bowel sounds Objective Labs and Meds Result diagrams: 08/14/21 05:18 08/14/21 05:18 Lab results: Laboratory Results - last 24 hr 08/13/21 08/14/21 08/14/21 20:52 05:18 05:18 WBC 6.2 RBC 3.60 L Hgb 10.1 L Hct 34.3 L MCV 95.3 MCH 28.1 MCHC 29.4 L RDW 14.4 Plt Count 248 D MPV 10.0 Absolute Nucleated RBC 0.000 Nucleated RBC % (auto) 0.0 PT 17.7 H INR 1.5 H Sodium Potassium Chloride Carbon Dioxide Anion Gap BUN Creatinine Estim Creat Clear Calc Estimated GFR Random Glucose Calcium Random Vancomycin 15.1 08/14/21 05:18 WBC RBC Hgb Hct MCV MCH MCHC RDW Plt Count MPV Absolute Nucleated RBC Nucleated RBC % (auto) PT INR Sodium 141 Potassium 4.2 Chloride 102 Carbon Dioxide 34 H Anion Gap 9 L BUN 25 H Creatinine 1.47 H Estim Creat Clear Calc 31.5 Estimated GFR 34 Random Glucose 74 Calcium 8.4 Random Vancomycin Imaging Radiologist's impression: Impressions Lower Extremity CT 08/13/21 11:52 IMPRESSION: 1. No focal fluid collection that would be suspicious for abscess. 2. Generalized skin thickening. Abnormality in the subcutaneous soft tissues compatible with edema, cellulitis or a combination of these. 3. Generalized fatty infiltration of the muscles likely age-related. 4. Diffuse generalized calcific atherosclerotic disease. 5. Advanced osteoarthritis of the right knee. Progress Note: A&P Assessment and plan (1) Atrial fibrillation with rapid ventricular response: Status: Acute Plan atrial fibrillation with difficult control response due to her lower blood pressure and medical condition. Continue treat the same. Continue gentle IV hydration. Discontinue furosemide as there is no clinical evidence of heart failure. Incentive spirometry for possible atelectasis is should be pursued. Continue low-dose Cardizem therapy. Continue midodrine therapy. If her renal function continues to improve may consider addition of digoxin therapy. Continue supportive care. Will sign of the case. Feel free to consult us Fall Risk Details Current Medications: Current Medications Acetaminophen (Acetaminophen 325 Mg Tablet) 650 mg PO Q6H PRN PRN Reason: Pain, Mild (Pain Scale 1-3) Last Admin: 08/12/21 15:31 Dose: 650 mg Documented by: Albuterol Sulfate (Albuterol Sulfate (0.083%) 2.5 Mg/3 Ml Vial.Neb) 2.5 mg INHALE Q4H PRN PRN Reason: Shortness Of Breath Benzonatate (Benzonatate 100 Mg Capsule) 100 mg PO TID PRN PRN Reason: Cough Last Admin: 08/13/21 12:12 Dose: 100 mg Documented by: Diltiazem HCl (Diltiazem Hcl 30 Mg Tablet) 15 mg PO Q6H [facility]; Protocol Last Admin: 08/14/21 11:10 Dose: 15 mg Documented by: Furosemide (Furosemide 40 Mg Tablet) 40 mg PO DAILY [facility]; Protocol Last Admin: 08/14/21 07:27 Dose: 40 mg Documented by: Vancomycin HCl 500 mg/ Sodium (Chloride) 110 mls @ 110 mls/hr IV Q24H [facility] Last Infusion: 08/14/21 00:22 Dose: Infused Documented by: Levothyroxine Sodium (Levothyroxine Sodium 50 Mcg Tablet) 50 mcg PO DAILY@0600 [facility] Last Admin: 08/14/21 05:05 Dose: 50 mcg Documented by: Loratadine (Loratadine 10 Mg Tablet) 10 mg PO DAILY [facility] Last Admin: 08/14/21 07:27 Dose: 10 mg Documented by: Melatonin (Melatonin 3 Mg Tablet) 6 mg PO BEDTIME PRN PRN Reason: Insomnia Last Admin: 08/10/21 20:36 Dose: 6 mg Documented by: Midodrine (Midodrine Hcl 10 Mg Tablet) 10 mg PO TID [facility] Last Admin: 08/14/21 07:26 Dose: 10 mg Documented by: Montelukast Sodium (Montelukast Sodium 10 Mg Tablet) 10 mg PO BEDTIME [facility] Last Admin: 08/13/21 21:27 Dose: 10 mg Documented by: Omeprazole (Omeprazole 20 Mg Capsule.Dr) 20 mg PO DAILY@0630 [facility] Last Admin: 08/14/21 05:05 Dose: 20 mg Documented by: Pharmacy Consult (Consult Rx Vancomycin Dosing) 1 each MISCELLANE DAILY PRN PRN Reason: Consult order Pharmacy Consult (Consult Rx Vancomycin Dosing) 1 each MISCELLANE DAILY PRN PRN Reason: Consult order Senna (Sennosides 8.6 Mg Tablet) 17.2 mg PO BEDTIME PRN PRN Reason: Constipation Sodium Chloride (0.9 % Sodium Chloride Flush 3 Ml Syringe) 3 ml IVFLUSH QSHIFT [facility] Last Admin: 08/14/21 07:28 Dose: 3 ml Documented by: Vitamin D (Cholecalciferol (Vitamin D3) 25 Mcg Tablet) 50 mcg PO DAILY [facility] Last Admin: 08/14/21 07:27 Dose: 50 mcg Documented by: Time Spent With Patient Time: Total time spent is greater than 50% in coordination of care (as documented) at patient's floor/unit and/or counseling patient: Time with patient: 15 - 24 minutes Progress Note: Quality Stroke Does the patient have a stroke diagnosis?: No Procedures Date of Service Date of Service: 08/14/21
[2021-08-14 12:00] VITALS: BP 93/65; PULSE 103; RESP 18; TEMP 36; O2SAT 97
--- NOTE | 2021-08-14 15:30 | P.PNIM_ITS ---
Subjective Subjective Date of Service: 08/14/21 Review of Systems seen and examined this morning still reporting pain in right leg with swelling bp still on lower side, patient denies dizziness no shortness of breath or chest pain Physical Exam Vital Signs: Vital Signs: Last Vital Signs Temp 96.8 F 08/14/21 12:00 Pulse 103 H 08/14/21 12:00 Resp 18 08/14/21 12:00 BP 93/65 08/14/21 12:00 Pulse Ox 97 08/14/21 12:00 BMI result Body Mass Index 34.3 Appearing in no acute distress lung sounds are clear to auscultation heart regular rate rhythm, clear S1, S2 positive bowel sounds, abdomen is soft, nontender neuro patient is alert x3, no focal deficits Chronic skin changes to lower extremities right leg edema with seom erythema up to thigh Objective Data Active Medications Acetaminophen (Acetaminophen 325 Mg Tablet) 650 mg PO Q6H PRN PRN Reason: Pain, Mild (Pain Scale 1-3) Last Admin: 08/12/21 15:31 Dose: 650 mg Documented by: AWAIS Albuterol Sulfate (Albuterol Sulfate (0.083%) 2.5 Mg/3 Ml Vial.Neb) 2.5 mg INHALE Q4H PRN PRN Reason: Shortness Of Breath Benzonatate (Benzonatate 100 Mg Capsule) 100 mg PO TID PRN PRN Reason: Cough Last Admin: 08/13/21 12:12 Dose: 100 mg Documented by: FRANSICO Diltiazem HCl (Diltiazem Hcl 30 Mg Tablet) 15 mg PO Q6H [facility]; Protocol Last Admin: 08/14/21 15:09 Dose: 15 mg Documented by: MARTELL Furosemide (Furosemide 40 Mg Tablet) 40 mg PO DAILY [facility]; Protocol Last Admin: 08/14/21 07:27 Dose: 40 mg Documented by: MARTELL Vancomycin HCl 500 mg/ Sodium (Chloride) 110 mls @ 110 mls/hr IV Q24H [facility] Last Infusion: 08/14/21 00:22 Dose: 0 mls/hr Documented by: CECI Levothyroxine Sodium (Levothyroxine Sodium 50 Mcg Tablet) 50 mcg PO DAILY@0600 [facility] Last Admin: 08/14/21 05:05 Dose: 50 mcg Documented by: CECI Loratadine (Loratadine 10 Mg Tablet) 10 mg PO DAILY [facility] Last Admin: 08/14/21 07:27 Dose: 10 mg Documented by: MARTELL Melatonin (Melatonin 3 Mg Tablet) 6 mg PO BEDTIME PRN PRN Reason: Insomnia Last Admin: 08/10/21 20:36 Dose: 6 mg Documented by: TUMASY Midodrine (Midodrine Hcl 10 Mg Tablet) 10 mg PO TID [facility] Last Admin: 08/14/21 15:10 Dose: 10 mg Documented by: MARTELL Montelukast Sodium (Montelukast Sodium 10 Mg Tablet) 10 mg PO BEDTIME [facility] Last Admin: 08/13/21 21:27 Dose: 10 mg Documented by: FRANSICO Omeprazole (Omeprazole 20 Mg Capsule.Dr) 20 mg PO DAILY@0630 [facility] Last Admin: 08/14/21 05:05 Dose: 20 mg Documented by: CECI Pharmacy Consult (Consult Rx Vancomycin Dosing) 1 each MISCELLANE DAILY PRN PRN Reason: Consult order Pharmacy Consult (Consult Rx Vancomycin Dosing) 1 each MISCELLANE DAILY PRN PRN Reason: Consult order Senna (Sennosides 8.6 Mg Tablet) 17.2 mg PO BEDTIME PRN PRN Reason: Constipation Sodium Chloride (0.9 % Sodium Chloride Flush 3 Ml Syringe) 3 ml IVFLUSH QSHIFT [facility] Last Admin: 08/14/21 15:10 Dose: 3 ml Documented by: MARTELL Vitamin D (Cholecalciferol (Vitamin D3) 25 Mcg Tablet) 50 mcg PO DAILY [facility] Last Admin: 08/14/21 07:27 Dose: 50 mcg Documented by: MARTELL Labs CBC & Chem 7: 08/14/21 05:18 08/14/21 05:18 Labs: Laboratory Results - last 24 hr 08/13/21 08/14/21 08/14/21 20:52 05:18 05:18 MCV 95.3 MCH 28.1 MCHC 29.4 L RDW 14.4 Plt Count 248 D MPV 10.0 Absolute Nucleated RBC 0.000 Nucleated RBC % (auto) 0.0 PT 17.7 H INR 1.5 H Anion Gap Estim Creat Clear Calc Estimated GFR Random Glucose Calcium Random Vancomycin 15.1 08/14/21 05:18 MCV MCH MCHC RDW Plt Count MPV Absolute Nucleated RBC Nucleated RBC % (auto) PT INR Anion Gap 9 L Estim Creat Clear Calc 31.5 Estimated GFR 34 Random Glucose 74 Calcium 8.4 Random Vancomycin Assessment and Plan (1) Atrial fibrillation with rapid ventricular response: Status: Acute (2) Cellulitis of right leg: Status: Acute (3) Lymphedema: Status: Acute (4) Acute kidney failure: Status: Acute Plan 81-year-old female with a past medical history of hypertension, CHF, AFib on Coumadin, asthma, hypothyroidism, venous stasis, history of recurrent lower extremity cellulitis; presented to the hospital today with a chief complaint of right lower extremity pain, tenderness, discharge; noted to have leukocytosis of 25; concern for right lower extremity cellulitis.? Admitted for further management. Right lower extremity cellulitis. leukocytosis resolved. afebrile, but Swelling and erythema worsening - will obtain CT scan to eval for abscess No abscess on ultrasound Patient has prior history of similar presentation.? Has chronic venous stasis/lymphedema discharge/ open ulcer on the right leg anteriorly, continue wound care Initially treated with IV vanco and zosyn; seen by ID landry d/c; possible doxy for 10 days on discharge continue wound care with indio and silver alginate; leg elevation Blood cultures negative to date Atrial fibrillation with RVR soft bp making HR control difficult HR uncontrolled cardizem has been on hold due to soft bp seen by cardiology rec to increase midodrine to 10 tid and try lower dose of schedule cardizem at 15q6h tele monitor JEN. Likely prerenal? SCr trending down Avoid nephrotoxins.? Follow renal function History of asthma Stable.? Patient on Xolair.? Nebulizations p.r.n.. INR supratherapeutic. resolved Monitor INR and resume Coumadin accordingly. Attending Dr. Seymour DVT prophylaxis:? Patient on Coumadin Code status:? Full code Quality Stroke Does the patient have a stroke diagnosis?: No VTE Prior VTE?: No VTE Risk Level:: Medical - moderate - high VTE Device Contraindication: Treatment Not Indicated VTE Drug Contraindication: N/A - Med Ordered
[2021-08-14 16:00] VITALS: BP 110/65; PULSE 103; RESP 15; TEMP 36.9; O2SAT 94
[2021-08-14 20:00] VITALS: BP 126/64; PULSE 86; RESP 18; TEMP 35.3; O2SAT 98
[2021-08-14] MEDS: Benzonatate 100 MG CAPSULE PO (20:29)
[2021-08-14] MEDS: Montelukast Sodium 10 MG TABLET PO (20:29)
--- NOTE | 2021-08-14 20:42 | HE.PHANOTE ---
RE: LEXUS Last trough was 14. Continue current dose of 500mg Q24H. Next trough scheduled for 08/16@1999. If SCr increases, consider getting random level at 1999 on 08/15. Thanks Shelby Bundy
[2021-08-14] MEDS: vancomycin HCL 500 MG in 0.9 % Sodium Chloride 100 ML 110 MG IV (21:18)
[2021-08-15] MEDS: 0.9 % Sodium Chloride Flush 3 ML SYRINGE IVFLUSH ×4 (00:27→20:42)
[2021-08-15 04:00] VITALS: BP 127/65; PULSE 82; RESP 17; TEMP 36; O2SAT 97
[2021-08-15] MEDS: dilTIAZem HCL 30 MG TABLET 15 MG PO ×4 (05:18→20:42)
[2021-08-15] MEDS: Omeprazole 20 MG CAPSULE.DR PO (05:18)
[2021-08-15] MEDS: Levothyroxine Sodium 50 MCG TABLET PO (05:18)
[2021-08-15 06:19] LABS: Hemoglobin 9.6 g/dl (12.0-16.0); Mean Corpuscular Hemoglobin 28.3 pg (27.0-33.0); Mean Corpuscular Volume 94.4 fL (80.0-98.0); Mean Platelet Volume 10.1 fL (9.4-12.3); Platelet Count 238 X10*3/uL (160-400); Red Blood Count 3.39 X10*6/uL (4.20-5.50); Red Cell Distribution Width 14.5 % (11.0-16.0); White Blood Count 6.1 X10*3/uL (4.8-10.8)
[2021-08-15 06:51] LABS: Anion Gap 12 (12-20); Blood Urea Nitrogen 23 mg/dL (9-16); Calcium 8.4 mg/dL (8.4-10.2); Carbon Dioxide 32 mmol/L (22-29); Chloride 101 mmol/L (96-108); Creatinine Clr Calc Pharmacy 34.6; Estimated Glomerular Filt Rate 38; Glucose Random 71 mg/dL (60-115); Potassium 4.2 mmol/L (3.3-5.1); Sodium 141 mmol/L (135-145)
--- NOTE | 2021-08-15 07:18 | PHA.PROG ---
Admission Date/Time: August 09, 2021 19:25 Indication: Skin Infection Weight in k.997 kg Adjusted body weight in K.639 kg [place] body weight in K.4 kg Obesity Dosing Indication % IBW: 167% Serum Creatinine - Last 168 Hours 08/09/21 08/10/21 08/10/21 14:18 07:41 07:41 Creatinine 2.34 H 2.74 H 2.67 H 08/11/21 08/11/21 08/12/21 05:15 05:15 05:22 Creatinine Cancelled 2.50 H 2.17 H 08/13/21 08/14/21 08/15/21 06:12 05:18 05:31 Creatinine 1.72 H 1.47 H Cancelled 08/15/21 05:31 Creatinine 1.34 Estimated CrCl and GFR - Last 168 Hours 08/09/21 08/10/21 08/10/21 14:18 07:41 07:41 Estim Creat Clear Calc 19.8 16.9 17.3 Estimated GFR 20 17 17 08/11/21 08/11/21 08/12/21 05:15 05:15 05:22 Estim Creat Clear Calc Cancelled 18.5 21.3 Estimated GFR Cancelled 18 08/13/21 08/14/21 08/15/21 06:12 05:18 05:31 Estim Creat Clear Calc 26.9 31.5 Cancelled Estimated GFR 28 34 Cancelled 08/15/21 05:31 Estim Creat Clear Calc 34.6 Estimated GFR 38 Vancomycin Loading Dose: 1500 mg (17 mg/kg) Current Vancomycin Dosing Regimen: 500 mg Q24H Vancomycin Trough 18.4 mcg/mL (10.0-20.0) 08/11/21 19:14 Pharmacist Comments on Vancomycin Plan: Patient is obese, elderly and has poor renal function. Renal function has improved greatly. SCr has decreased to 1.34 Current regimen expected to be subtherpatuic with improvement of renal function Will increase vancomycin 750 mg Q24H. Expected AUC 499 with trough of 15.1 Trough to be drawn 08/16 Pharmacy will continue to monitor renal function as patient is in JEN and on multiple nephrotoxic drugs Laura Ibrahim PharmD Vancomycin dosing will take advantage of [employer] as a clinical decision support tool that uses Bayesian modeling to calculate individual patient's pharmacokinetic parameters and forecast the patient's drug concentration time course with the target goal AUC 24 range of 400 - 600 mg/L/hr.
[2021-08-15] MEDS: Furosemide 40 MG TABLET PO (07:37)
[2021-08-15] MEDS: Midodrine HCl 10 MG TABLET PO ×3 (07:38→20:42)
[2021-08-15] MEDS: Cholecalciferol (Vitamin D3) 25 MCG TABLET 50 MCG PO (07:38)
[2021-08-15] MEDS: Loratadine 10 MG TABLET PO (07:38)
[2021-08-15 07:51] VITALS: BP 99/63; PULSE 102; RESP 15; TEMP 37.1; O2SAT 98
--- NOTE | 2021-08-15 08:42 | HO.PM.IMPN ---
Subjective Subjective Date of Service: 08/15/21 Review of Systems Follow up cellulitis, afib Still with some pain to left thigh due to edema appetite good, sitting up in chair Physical Exam Vital Signs: Vital Signs: Last Vital Signs Temp 98.7 F 08/15/21 07:51 Pulse 102 H 08/15/21 07:51 Resp 15 08/15/21 07:51 BP 99/63 08/15/21 07:51 Pulse Ox 98 08/15/21 07:51 BMI result Body Mass Index 34.3 Appearing in no acute distress lung sounds are clear to auscultation heart regular rate rhythm, clear S1, S2 positive bowel sounds, abdomen is soft, nontender neuro patient is alert x3, no focal deficits Chronic lower extremity edema and skin changes Right lower extremity Objective Data Active Medications Acetaminophen (Acetaminophen 325 Mg Tablet) 650 mg PO Q6H PRN PRN Reason: Pain, Mild (Pain Scale 1-3) Last Admin: 08/12/21 15:31 Dose: 650 mg Documented by: AWAIS Albuterol Sulfate (Albuterol Sulfate (0.083%) 2.5 Mg/3 Ml Vial.Neb) 2.5 mg INHALE Q4H PRN PRN Reason: Shortness Of Breath Benzonatate (Benzonatate 100 Mg Capsule) 100 mg PO TID PRN PRN Reason: Cough Last Admin: 08/14/21 20:29 Dose: 100 mg Documented by: FRANSICO Diltiazem HCl (Diltiazem Hcl 30 Mg Tablet) 15 mg PO Q6H [facility]; Protocol Last Admin: 08/15/21 05:18 Dose: 15 mg Documented by: АЛЕКСАНДР Vancomycin HCl 750 mg/ Sodium (Chloride) 265 mls @ 265 mls/hr IV Q24H [facility] Levothyroxine Sodium (Levothyroxine Sodium 50 Mcg Tablet) 50 mcg PO DAILY@0600 [facility] Last Admin: 08/15/21 05:18 Dose: 50 mcg Documented by: АЛЕКСАНДР Loratadine (Loratadine 10 Mg Tablet) 10 mg PO DAILY [facility] Last Admin: 08/15/21 07:38 Dose: 10 mg Documented by: MARTELL Melatonin (Melatonin 3 Mg Tablet) 6 mg PO BEDTIME PRN PRN Reason: Insomnia Last Admin: 08/10/21 20:36 Dose: 6 mg Documented by: HO.TUMASY Midodrine (Midodrine Hcl 10 Mg Tablet) 10 mg PO TID [facility] Last Admin: 08/15/21 07:38 Dose: 10 mg Documented by: MARTELL Montelukast Sodium (Montelukast Sodium 10 Mg Tablet) 10 mg PO BEDTIME [facility] Last Admin: 08/14/21 20:29 Dose: 10 mg Documented by: FRANSICO Omeprazole (Omeprazole 20 Mg Capsule.Dr) 20 mg PO DAILY@0630 [facility] Last Admin: 08/15/21 05:18 Dose: 20 mg Documented by: АЛЕКСАНДР Pharmacy Consult (Consult Rx Vancomycin Dosing) 1 each MISCELLANE DAILY PRN PRN Reason: Consult order Pharmacy Consult (Consult Rx Vancomycin Dosing) 1 each MISCELLANE DAILY PRN PRN Reason: Consult order Senna (Sennosides 8.6 Mg Tablet) 17.2 mg PO BEDTIME PRN PRN Reason: Constipation Sodium Chloride (0.9 % Sodium Chloride Flush 3 Ml Syringe) 3 ml IVFLUSH QSHIFT [facility] Last Admin: 08/15/21 07:38 Dose: 3 ml Documented by: MARTELL Vitamin D (Cholecalciferol (Vitamin D3) 25 Mcg Tablet) 50 mcg PO DAILY [facility] Last Admin: 08/15/21 07:38 Dose: 50 mcg Documented by: MARTELL Labs CBC & Chem 7: 08/15/21 05:31 08/15/21 05:31 Labs: Laboratory Results - last 24 hr 08/14/21 08/15/21 08/15/21 20:00 05:31 05:31 MCV 94.4 MCH 28.3 MCHC 30.0 L RDW 14.5 Plt Count 238 MPV 10.1 Absolute Nucleated RBC 0.000 Nucleated RBC % (auto) 0.0 Anion Gap Estim Creat Clear Calc Cancelled Estimated GFR Cancelled Random Glucose Calcium Random Vancomycin 14.0 L 08/15/21 05:31 MCV MCH MCHC RDW Plt Count MPV Absolute Nucleated RBC Nucleated RBC % (auto) Anion Gap 12 Estim Creat Clear Calc 34.6 Estimated GFR 38 Random Glucose 71 Calcium 8.4 Random Vancomycin Microbiology Microbiology Results: Microbiology 08/09/21 14:18 Blood Culture - Final Blood - Venous No growth after 5 days. 08/09/21 14:18 Blood Culture - Final Blood - Venous No growth after 5 days. Assessment and Plan (1) Atrial fibrillation with rapid ventricular response: Status: Acute (2) Cellulitis of right leg: Status: Acute (3) Lymphedema: Status: Acute (4) Acute kidney failure: Status: Acute Plan 81-year-old female with a past medical history of hypertension, CHF, AFib on Coumadin, asthma, hypothyroidism, venous stasis, history of recurrent lower extremity cellulitis; presented to the hospital today with a chief complaint of right lower extremity pain, tenderness, discharge; noted to have leukocytosis of 25; concern for right lower extremity cellulitis.? Admitted for further management. Atrial fibrillation with RVR soft bp making HR control difficult seen by cardiology, rec to increase midodrine to 10 tid and try lower dose of schedule cardizem at 15q6h BP is stable but still sbp in 90's renal function improving so maybe can consider digoxin Right lower extremity cellulitis. leukocytosis resolved. afebrile, but Swelling and erythema worsening No abscess on ultrasound or CT, Has chronic venous stasis/lymphedema discharge/ open ulcer on the right leg anteriorly, continue wound care Initially treated with IV vanco and zosyn; will dc zosyn and start Doxycycline for total od 10 days continue wound care with indio and silver alginate; leg elevation Blood cultures negative to date Still with swelling and pain, venous duplex ordered to r/o DVT JEN. Likely prerenal?. Improving Avoid nephrotoxins.? Follow renal function History of asthma Stable.? Patient on Xolair.? Nebulizations p.r.n.. INR supratherapeutic. resolved Monitor INR and resume Coumadin accordingly. Attending Dr. Seymour DVT prophylaxis:?with Coumadin Code status:? Full code Quality Stroke Does the patient have a stroke diagnosis?: No VTE Prior VTE?: No VTE Risk Level:: Medical - moderate - high VTE Device Contraindication: Treatment Not Indicated VTE Drug Contraindication: N/A - Med Ordered
[2021-08-15 10:47] LABS: INTERNATIONAL NORM RATIO 1.4 (0.9-1.1); Prothrombin Time 16.3 SEC (9.9-13.0)
[2021-08-15] MEDS: Benzonatate 100 MG CAPSULE PO (11:29)
[2021-08-15 12:00] VITALS: BP 164/88; PULSE 74; RESP 15; TEMP 36.4; O2SAT 92
[2021-08-15 16:00] VITALS: BP 108/64; PULSE 98; RESP 18; TEMP 37.2; O2SAT 99
[2021-08-15] MEDS: Warfarin Sodium 5 MG TABLET PO (16:43)
[2021-08-15 19:57] VITALS: BP 102/65; PULSE 96; RESP 18; TEMP 37; O2SAT 97
[2021-08-15] MEDS: Montelukast Sodium 10 MG TABLET PO (20:42)
[2021-08-15] MEDS: vancomycin HCL 750 MG in 0.9 % Sodium Chloride 250 ML 265 MG IV (21:23)
[2021-08-16] VITALS (7 sets, daily range): BP systolic 87–137; BP diastolic 54–86; PULSE 78–102; RESP 16–20; TEMP 36.2–37.1; O2SAT 93–98
[2021-08-16] MEDS: dilTIAZem HCL 30 MG TABLET 15 MG PO ×4 (03:33→21:29)
[2021-08-16] MEDS: Acetaminophen 325 MG TABLET 650 MG PO (03:33)
[2021-08-16] MEDS: Omeprazole 20 MG CAPSULE.DR PO (05:39)
[2021-08-16] MEDS: Levothyroxine Sodium 50 MCG TABLET PO (05:39)
[2021-08-16 05:48] LABS: Hemoglobin 9.3 g/dl (12.0-16.0); Mean Corpuscular Hemoglobin 28.4 pg (27.0-33.0); Mean Corpuscular Volume 94.5 fL (80.0-98.0); Platelet Count 249 X10*3/uL (160-400); Red Blood Count 3.28 X10*6/uL (4.20-5.50); Red Cell Distribution Width 14.2 % (11.0-16.0); White Blood Count 6.3 X10*3/uL (4.8-10.8)
[2021-08-16 05:59] LABS: INTERNATIONAL NORM RATIO 1.4 (0.9-1.1); Prothrombin Time 15.8 SEC (9.9-13.0)
[2021-08-16 06:13] LABS: Anion Gap 11 (12-20); Blood Urea Nitrogen 20 mg/dL (9-16); Carbon Dioxide 33 mmol/L (22-29); Chloride 100 mmol/L (96-108); Creatinine Clr Calc Pharmacy 36.8; Estimated Glomerular Filt Rate 41; Glucose Random 68 mg/dL (60-115); Potassium 4.2 mmol/L (3.3-5.1); Sodium 140 mmol/L (135-145)
[2021-08-16] MEDS: Cholecalciferol (Vitamin D3) 25 MCG TABLET 50 MCG PO (08:18)
[2021-08-16] MEDS: Loratadine 10 MG TABLET PO (08:18)
[2021-08-16] MEDS: 0.9 % Sodium Chloride Flush 3 ML SYRINGE IVFLUSH ×2 (08:20→15:25)
[2021-08-16] MEDS: Midodrine HCl 10 MG TABLET PO ×3 (08:20→21:30)
--- NOTE | 2021-08-16 11:35 | P.PNIM_ITS ---
Subjective Subjective Date of Service: 08/16/21 Review of Systems Follow up cellulitis, afib Still with some pain to left thigh due to edema appetite good, sitting up in chair Physical Exam Vital Signs: Vital Signs: Last Vital Signs Temp 97.3 F 08/16/21 11:32 Pulse 82 08/16/21 11:32 Resp 20 08/16/21 11:32 BP 102/58 L 08/16/21 11:32 Pulse Ox 98 08/16/21 11:32 BMI result Body Mass Index 34.3 Appearing in no acute distress lung sounds are clear to auscultation heart regular rate rhythm, clear S1, S2 positive bowel sounds, abdomen is soft, nontender neuro patient is alert x3, no focal deficits Chronic lower extremity edema and skin changes Objective Data Active Medications Acetaminophen (Acetaminophen 325 Mg Tablet) 650 mg PO Q6H PRN PRN Reason: Pain, Mild (Pain Scale 1-3) Last Admin: 08/16/21 03:33 Dose: 650 mg Documented by: FRANSICO Albuterol Sulfate (Albuterol Sulfate (0.083%) 2.5 Mg/3 Ml Vial.Neb) 2.5 mg INHALE Q4H PRN PRN Reason: Shortness Of Breath Benzonatate (Benzonatate 100 Mg Capsule) 100 mg PO TID PRN PRN Reason: Cough Last Admin: 08/15/21 11:29 Dose: 100 mg Documented by: MARTELL Diltiazem HCl (Diltiazem Hcl 30 Mg Tablet) 15 mg PO Q6H [facility]; Protocol Last Admin: 08/16/21 08:18 Dose: 15 mg Documented by: MARTELL Vancomycin HCl 750 mg/ Sodium (Chloride) 265 mls @ 265 mls/hr IV Q24H [facility] Last Infusion: 08/15/21 22:45 Dose: 0 mls/hr Documented by: FRANSICO Levothyroxine Sodium (Levothyroxine Sodium 50 Mcg Tablet) 50 mcg PO DAILY@0600 [facility] Last Admin: 08/16/21 05:39 Dose: 50 mcg Documented by: FRANSICO Loratadine (Loratadine 10 Mg Tablet) 10 mg PO DAILY [facility] Last Admin: 08/16/21 08:18 Dose: 10 mg Documented by: MARTELL Melatonin (Melatonin 3 Mg Tablet) 6 mg PO BEDTIME PRN PRN Reason: Insomnia Last Admin: 08/10/21 20:36 Dose: 6 mg Documented by: MATTHEW Midodrine (Midodrine Hcl 10 Mg Tablet) 10 mg PO TID [facility] Last Admin: 08/16/21 08:20 Dose: 10 mg Documented by: MARTELL Montelukast Sodium (Montelukast Sodium 10 Mg Tablet) 10 mg PO BEDTIME [facility] Last Admin: 08/15/21 20:42 Dose: 10 mg Documented by: FRANSICO Omeprazole (Omeprazole 20 Mg Capsule.Dr) 20 mg PO DAILY@0630 [facility] Last Admin: 08/16/21 05:39 Dose: 20 mg Documented by: FRANSICO Pharmacy Consult (Consult Rx Vancomycin Dosing) 1 each MISCELLANE DAILY PRN PRN Reason: Consult order Pharmacy Consult (Consult Rx Vancomycin Dosing) 1 each MISCELLANE DAILY PRN PRN Reason: Consult order Senna (Sennosides 8.6 Mg Tablet) 17.2 mg PO BEDTIME PRN PRN Reason: Constipation Sodium Chloride (0.9 % Sodium Chloride Flush 3 Ml Syringe) 3 ml IVFLUSH QSHIFT [facility] Last Admin: 08/16/21 08:20 Dose: 3 ml Documented by: MARTELL Vitamin D (Cholecalciferol (Vitamin D3) 25 Mcg Tablet) 50 mcg PO DAILY [facility] Last Admin: 08/16/21 08:18 Dose: 50 mcg Documented by: MARTELL Warfarin Sodium (Warfarin Sodium 5 Mg Tablet) 5 mg PO DAILY@1800 [facility] Last Admin: 08/15/21 16:43 Dose: 5 mg Documented by: MARTELL Labs CBC & Chem 7: 08/16/21 04:59 08/16/21 05:00 Labs: Laboratory Results - last 24 hr 08/16/21 08/16/21 08/16/21 04:59 04:59 05:00 MCV 94.5 MCH 28.4 MCHC 30.0 L RDW 14.2 Plt Count 249 MPV 10.0 Absolute Nucleated RBC 0.000 Nucleated RBC % (auto) 0.0 PT 15.8 H INR 1.4 H Anion Gap 11 L Estim Creat Clear Calc 36.8 Estimated GFR 41 Random Glucose 68 Calcium 8.0 L Assessment and Plan (1) Atrial fibrillation with rapid ventricular response: Status: Acute (2) Cellulitis of right leg: Status: Acute (3) Lymphedema: Status: Acute (4) Acute kidney failure: Status: Acute Plan 81-year-old female with a past medical history of hypertension, CHF, AFib on Coumadin, asthma, hypothyroidism, venous stasis, history of recurrent lower extremity cellulitis; presented to the hospital today with a chief complaint of right lower extremity pain, tenderness, discharge; noted to have leukocytosis of 25; concern for right lower extremity cellulitis.? Admitted for further management. Atrial fibrillation with RVR soft bp making HR control difficult seen by cardiology, rec to increase midodrine to 10 tid and try lower dose of schedule cardizem at 15q6h BP is stable but still sbp in 90's renal function improving so maybe can consider digoxin Right lower extremity cellulitis. leukocytosis resolved. afebrile, but Swelling and erythema worsening No abscess on ultrasound or CT, Has chronic venous stasis/lymphedema discharge/ open ulcer on the right leg anteriorly, continue wound care Initially treated with IV vanco and zosyn, zosyn stopped, doxycycline at discharge continue wound care with indio and silver alginate; leg elevation Blood cultures negative to date Still with swelling and pain, venous duplex ordered to r/o DVT JNE. Likely prerenal?. Improving Avoid nephrotoxins.? Follow renal function History of asthma Stable.? Patient on Xolair.? Nebulizations p.r.n.. INR supratherapeutic. resolved Monitor INR and resume Coumadin accordingly. Attending Dr. Fields DVT prophylaxis:?with Coumadin Code status:? Full code Quality Stroke Does the patient have a stroke diagnosis?: No VTE Prior VTE?: No VTE Risk Level:: Medical - moderate - high VTE Device Contraindication: Treatment Not Indicated VTE Drug Contraindication: N/A - Med Ordered
[2021-08-16] MEDS: Warfarin Sodium 5 MG TABLET PO (18:22)
[2021-08-16 20:29] LABS: Vancomycin Trough 14.6 mcg/mL (10.0-20.0)
--- NOTE | 2021-08-16 20:48 | PHA.PROG ---
Admission Date/Time: August 09, 2021 19:25 Indication: Skin Infection Weight in k.997 kg Adjusted body weight in K.639 kg [place] body weight in K.4 kg Obesity Dosing Indication % IBW: 167% Serum Creatinine - Last 168 Hours 08/10/21 08/10/21 08/11/21 07:41 07:41 05:15 Creatinine 2.74 H 2.67 H Cancelled 08/11/21 08/12/21 08/13/21 05:15 05:22 06:12 Creatinine 2.50 H 2.17 H 1.72 H 08/14/21 08/15/21 08/15/21 05:18 05:31 05:31 Creatinine 1.47 H Cancelled 1.34 08/16/21 05:00 Creatinine 1.26 Estimated CrCl and GFR - Last 168 Hours 08/10/21 08/10/21 08/11/21 07:41 07:41 05:15 Estim Creat Clear Calc 16.9 17.3 Cancelled Estimated GFR 17 17 Cancelled 08/11/21 08/12/21 08/13/21 05:15 05:22 06:12 Estim Creat Clear Calc 18.5 21.3 26.9 Estimated GFR 18 22 28 08/14/21 08/15/21 08/15/21 05:18 05:31 05:31 Estim Creat Clear Calc 31.5 Cancelled 34.6 Estimated GFR 34 Cancelled 38 08/16/21 05:00 Estim Creat Clear Calc 36.8 Estimated GFR 41 Vancomycin Loading Dose: 1500 mg Current Vancomycin Dosing Regimen: 750 mg Q24H Vancomycin Trough 14.6 mcg/mL (10.0-20.0) 08/16/21 20:01 Pharmacist Comments on Vancomycin Plan: Patient is obese, elderly. Patient here for JEN. Renal function has improved greatly. SCr has decreased to 1.26 Continue current regimen. Expected AUC 485 with trough of 14.8 Trough to be drawn 08/18 Pharmacy will continue to monitor renal function. If renal function continue to improved dose may need to be increased Laura Ibrahim PharmD Vancomycin dosing will take advantage of [employer] as a clinical decision support tool that uses Bayesian modeling to calculate individual patient's pharmacokinetic parameters and forecast the patient's drug concentration time course with the target goal AUC 24 range of 400 - 600 mg/L/hr.
[2021-08-16] MEDS: Benzonatate 100 MG CAPSULE PO (21:29)
[2021-08-16] MEDS: Montelukast Sodium 10 MG TABLET PO (21:30)
[2021-08-16] MEDS: vancomycin HCL 750 MG in 0.9 % Sodium Chloride 250 ML 265 MG IV (21:30)
[2021-08-17] VITALS (8 sets, daily range): BP systolic 92–132; BP diastolic 59–73; PULSE 67–130; RESP 14–20; TEMP 36.2–37; O2SAT 92–100
[2021-08-17] MEDS: 0.9 % Sodium Chloride Flush 3 ML SYRINGE IVFLUSH ×4 (00:47→23:36)
[2021-08-17] MEDS: dilTIAZem HCL 30 MG TABLET 15 MG PO ×4 (04:28→20:17)
[2021-08-17 04:47] LABS: Hematocrit 31.1 % (37.0-47.0); Hemoglobin 9.3 g/dl (12.0-16.0); Mean Corpuscular HGB Conc 29.9 g/dl (31.0-35.0); Mean Corpuscular Hemoglobin 28.3 pg (27.0-33.0); Mean Corpuscular Volume 94.5 fL (80.0-98.0); Mean Platelet Volume 10.1 fL (9.4-12.3); Platelet Count 233 X10*3/uL (160-400); Red Blood Count 3.29 X10*6/uL (4.20-5.50); Red Cell Distribution Width 14.2 % (11.0-16.0); White Blood Count 6.7 X10*3/uL (4.8-10.8)
[2021-08-17 04:51] LABS: INTERNATIONAL NORM RATIO 1.4 (0.9-1.1); Prothrombin Time 16.2 SEC (9.9-13.0)
[2021-08-17 05:13] LABS: Anion Gap 10 (12-20); Blood Urea Nitrogen 18 mg/dL (9-16); Calcium 8.1 mg/dL (8.4-10.2); Carbon Dioxide 35 mmol/L (22-29); Chloride 101 mmol/L (96-108); Creatinine Clr Calc Pharmacy 38.3; Estimated Glomerular Filt Rate 43; Glucose Random 74 mg/dL (60-115); Potassium 4.6 mmol/L (3.3-5.1); Sodium 141 mmol/L (135-145)
[2021-08-17] MEDS: Levothyroxine Sodium 50 MCG TABLET PO (05:28)
[2021-08-17] MEDS: Omeprazole 20 MG CAPSULE.DR PO (05:28)
[2021-08-17] MEDS: Loratadine 10 MG TABLET PO (08:05)
[2021-08-17] MEDS: Midodrine HCl 10 MG TABLET PO ×3 (08:06→20:15)
[2021-08-17] MEDS: Cholecalciferol (Vitamin D3) 25 MCG TABLET 50 MCG PO (08:06)
[2021-08-17] MEDS: Acetaminophen 325 MG TABLET 650 MG PO (08:06)
--- NOTE | 2021-08-17 10:17 | P.PNCA_ITS ---
Subjective Subjective Date of Service: 08/17/21 Principal diagnosis: atrial fibrillation Interval history: States that she feels Ok. No new complaints. Review of Systems Review of Systems Yes all other systems are reviewed and are negative Cardiovascular: Reports as per HPI, Reports no additional cardiovascular complaints, Denies acrocyanosis, Denies cool extremities, Denies chest pain, Denies diaphoresis, Denies syncope, Denies claudication, Denies leg edema, Denies lightheadedness, Denies palpitations and Denies dyspnea Respiratory: Denies dyspnea Denies syncope Endocrine: Denies palpitations Physical Exam Vital Signs: Last Vital Signs Temp 98.6 F 08/17/21 07:09 Pulse 95 08/17/21 09:12 Resp 20 08/17/21 07:09 BP 106/65 08/17/21 07:09 Pulse Ox 92 08/17/21 07:09 BMI result Body Mass Index 34.3 Const General: comfortable HENMT Other: Unremarkable Neck Neck: Yes normal visual inspection Chest Chest palpation & inspection: normal inspection of the chest Resp Auscultation: clear to auscultation bilaterally Cardio Palpation: normal PMI Heart sounds: S1 normal heart sound present, S2 normal heart sound present, no gallops, Murmur heart sound present (2/6 SM) and no rubs GI Palpation (GI): Soft to palpation Back/Spine/Pelvis Other: unremarkable Skin Lesions: other Neuro General: other Extrem Other: chronic changes, swollen, bandaged General: Yes other Psych Mental Status: other Objective Labs and Meds Result diagrams: 08/17/21 04:29 08/17/21 04:29 Lab results: Laboratory Results - last 24 hr 08/16/21 08/17/21 08/17/21 20:01 04:29 04:29 WBC 6.7 RBC 3.29 L Hgb 9.3 L Hct 31.1 L MCV 94.5 MCH 28.3 MCHC 29.9 L RDW 14.2 Plt Count 233 MPV 10.1 Absolute Nucleated RBC 0.000 Nucleated RBC % (auto) 0.0 PT 16.2 H INR 1.4 H Sodium Potassium Chloride Carbon Dioxide Anion Gap BUN Creatinine Estim Creat Clear Calc Estimated GFR Random Glucose Calcium Vancomycin Trough 14.6 08/17/21 04:29 WBC RBC Hgb Hct MCV MCH MCHC RDW Plt Count MPV Absolute Nucleated RBC Nucleated RBC % (auto) PT INR Sodium 141 Potassium 4.6 Chloride 101 Carbon Dioxide 35 H Anion Gap 10 L BUN 18 H Creatinine 1.21 Estim Creat Clear Calc 38.3 Estimated GFR 43 Random Glucose 74 Calcium 8.1 L Vancomycin Trough Progress Note: A&P Assessment and plan (1) Atrial fibrillation with rapid ventricular response: Status: Acute (2) Idiopathic hypotension: Status: Acute Plan Due to low blood pressure, unable to use diltiazem. Atrial fibrillation rates up and down. Borderline GFR. Hence may use amiodarone for rate control purposes. In that case, can stop the diltiazem. She is also on midodrine 10 mg t.i.d.. Continue anticoagulation. Fall Risk Details Current Medications: Current Medications Acetaminophen (Acetaminophen 325 Mg Tablet) 650 mg PO Q6H PRN PRN Reason: Pain, Mild (Pain Scale 1-3) Last Admin: 08/17/21 08:06 Dose: 650 mg Documented by: Amiodarone HCl (Amiodarone Hcl 200 Mg Tablet) 400 mg PO BID [facility] Benzonatate (Benzonatate 100 Mg Capsule) 100 mg PO TID PRN PRN Reason: Cough Last Admin: 08/16/21 21:29 Dose: 100 mg Documented by: Diltiazem HCl (Diltiazem Hcl 30 Mg Tablet) 15 mg PO Q6H [facility]; Protocol Last Admin: 08/17/21 08:05 Dose: 15 mg Documented by: Vancomycin HCl 750 mg/ Sodium (Chloride) 265 mls @ 265 mls/hr IV Q24H [facility] Last Infusion: 08/16/21 22:44 Dose: Infused Documented by: Levothyroxine Sodium (Levothyroxine Sodium 50 Mcg Tablet) 50 mcg PO DAILY@0600 [facility] Last Admin: 08/17/21 05:28 Dose: 50 mcg Documented by: Loratadine (Loratadine 10 Mg Tablet) 10 mg PO DAILY [facility] Last Admin: 08/17/21 08:05 Dose: 10 mg Documented by: Melatonin (Melatonin 3 Mg Tablet) 6 mg PO BEDTIME PRN PRN Reason: Insomnia Last Admin: 08/10/21 20:36 Dose: 6 mg Documented by: Midodrine (Midodrine Hcl 10 Mg Tablet) 10 mg PO TID [facility] Last Admin: 08/17/21 08:06 Dose: 10 mg Documented by: Montelukast Sodium (Montelukast Sodium 10 Mg Tablet) 10 mg PO BEDTIME [facility] Last Admin: 08/16/21 21:30 Dose: 10 mg Documented by: Omeprazole (Omeprazole 20 Mg Capsule.) 20 mg PO DAILY@0630 [facility] Last Admin: 08/17/21 05:28 Dose: 20 mg Documented by: Senna (Sennosides 8.6 Mg Tablet) 17.2 mg PO BEDTIME PRN PRN Reason: Constipation Sodium Chloride (0.9 % Sodium Chloride Flush 3 Ml Syringe) 3 ml IVFLUSH QSHIFT [facility] Last Admin: 08/17/21 08:07 Dose: 3 ml Documented by: Vitamin D (Cholecalciferol (Vitamin D3) 25 Mcg Tablet) 50 mcg PO DAILY [facility] Last Admin: 08/17/21 08:06 Dose: 50 mcg Documented by: Warfarin Sodium (Warfarin Sodium 5 Mg Tablet) 5 mg PO DAILY@1800 [facility] Last Admin: 08/16/21 18:22 Dose: 5 mg Documented by: Time Spent With Patient Time: Total time spent is greater than 50% in coordination of care (as documented) at patient's floor/unit and/or counseling patient: Time with patient: less than 15 minutes Progress Note: Quality Stroke Does the patient have a stroke diagnosis?: No Procedures Date of Service Date of Service: 08/17/21
--- NOTE | 2021-08-17 10:24 | PC.NURSE ---
Skin/wound assessment completed. Patient's wet ulcer on lower legs have dried. Sween 24 moisturizer applied to bilateral legs indio wrap applied to legs. No other skin issues noted at this time.
[2021-08-17] MEDS: Amiodarone HCL 200 MG TABLET 400 MG PO ×2 (12:36→20:15)
--- NOTE | 2021-08-17 13:00 | CA_ITS ---
Transthoracic Echocardiogram Patient (Last, First, Middle): Adriana Roldan G Gender: Female Date of : 1940 Age: 81 Procedure Date: 08/17/2021 Procedure Type: Transthoracic Echocardiogram Location: S3W Height: 160.02 cm Weight: 88. kg BSA: 1.91 m2 Heart Rate: bpm BP: 113 / 69 mmHg Marker Assembler: VH/OT Referring MD: [place] NP Symptoms: CHF Study Quality: Fair ECG Rhythm: Atrial Fibrillation Conclusions: - The left ventricular systolic function is low normal. The visually estimated ejection fraction is between 50-55%. - Moderately increased right ventricular cavity size. - The left atrium is moderately dilated. - There is mild aortic valve regurgitation. - There is moderate tricuspid valve regurgitation. - Mild to moderate pulmonary hypertension is present. Findings Left Ventricle Normal left ventricular cavity size. There is mildly increased left ventricular wall thickness. The left ventricular systolic function is low normal. The visually estimated ejection fraction is between 50-55%. There is no evidence of regional wall motion abnormalities. Diastolic function is indeterminate on the basis of available data. Right Ventricle Moderately increased right ventricular cavity size. There is normal right ventricular systolic function. Atria The left atrium is moderately dilated. The right atrium is mildly dilated. Aortic Valve There is a normal trileaflet aortic valve. There is mild calcification of the aortic valve. There is no aortic valve stenosis. There is mild aortic valve regurgitation. Mitral Valve There is mild mitral annular calcification. There is trace mitral valve regurgitation. There is no mitral valve stenosis. Pulmonic Valve The pulmonic valve was not well visualized. Tricuspid Valve There is moderate tricuspid valve regurgitation. The right ventricular systolic pressure is 49 mmHg. Mild to moderate pulmonary hypertension is present. Great Vessels The asc aorta is normal in size. Venous The inferior vena cava is dilated and collapses less than 50% with inspiration. Pericardium/Pleural There is no evidence of pericardial effusion. Prior Study Comparison Changes noted compared to prior study dated: 06/13/2017. LVEF slightly lower. Valvular regurgitation appear less prominent. Measurements 2D Linear Measurements IVSd: 1.07 0.6-0.9/0.6-1.0 cm LVIDd: 4.71 3.9-5.3/4.2-5.9 cm LVIDd Index: 2.47 2.4-3.2/2.2-3.1 cm/m2 LVIDs: 3.21 2.0-3.6 cm LVPWd: 1.11 0.7-1.1 cm Ao Root: 3.80 2.1-3.5 cm LA Diam: 4.10 2.7-3.8/3.0-4.0 cm LAIDs Index: 2.15 1.5-2.3 cm/m2 LV Mass: 231.50 67-162/88-224 g LV Mass Index: 121.20 43-95/49-115 g/m2 LVOT Diam: 2.00 3.0+(-)1.3 cm Mitral Valve MV Pk E: 1.06 MV Decel Time: 121.00 PHT: 35.00 MVA PHT: 6.29 Decel Valencia: 8.78 Aortic Valve AoV Pk Giles: 1.32 AoV Mn Giles: 0.87 AoV VTI: 0.25 AoV Pk Grad: 7.00 Aov Mn Grad: 3.00 PRINCESS Cont.VTI: 1.83 LVOT LVOT Pk Giles: 0.79 LVOT Mn Giles: 0.52 LVOT VTI: 0.15 LVOT Pk Grad: 3.00 LVOT Mn Grad: 1.00 LVOT Diam: 2.00 LVOT Area: 3.14 Diastolic Function MV Pk E: 1.06 Tricuspid Valve TR Pk Giles: 2.90 TR Pk Grad: 34.00 RA Press: 15.00 RVSP: 49.00 Great Vessels Aorta Ao Root-2D: 3.80 2.0-3.7 cm Ao Asc: 3.30 2.1-3.4 cm Pulmonary Valve PV Pk Giles: 0.69 Peak PV Grad: 2.00 Updated in Other Vendor System with Status of Final Jaziel Caballero MD electronically signed on 08/17/2021 5:05:51 PM with status of Final
--- NOTE | 2021-08-17 13:31 | P.PNIM_ITS ---
Subjective Subjective Date of Service: 08/17/21 Review of Systems Follow up cellulitis, afib Still with some pain to left thigh due to edema appetite good, sitting up in chair Physical Exam Vital Signs: Vital Signs: Last Vital Signs Temp 98.1 F 08/17/21 11:33 Pulse 67 08/17/21 11:33 Resp 20 08/17/21 11:33 BP 113/69 08/17/21 11:33 Pulse Ox 99 08/17/21 11:33 BMI result Body Mass Index 34.3 Appearing in no acute distress lung sounds are clear to auscultation heart regular rate rhythm, clear S1, S2 positive bowel sounds, abdomen is soft, nontender neuro patient is alert x3, no focal deficits Edema bilateral worse to right leg up to thigh Objective Data Active Medications Acetaminophen (Acetaminophen 325 Mg Tablet) 650 mg PO Q6H PRN PRN Reason: Pain, Mild (Pain Scale 1-3) Last Admin: 08/17/21 08:06 Dose: 650 mg Documented by: SAPPHIRE Amiodarone HCl (Amiodarone Hcl 200 Mg Tablet) 400 mg PO BID [facility] Last Admin: 08/17/21 12:36 Dose: 400 mg Documented by: SAPPHIRE Benzonatate (Benzonatate 100 Mg Capsule) 100 mg PO TID PRN PRN Reason: Cough Last Admin: 08/16/21 21:29 Dose: 100 mg Documented by: DILEEP Diltiazem HCl (Diltiazem Hcl 30 Mg Tablet) 15 mg PO Q6H [facility]; Protocol Last Admin: 08/17/21 08:05 Dose: 15 mg Documented by: SAPPHIRE Vancomycin HCl 750 mg/ Sodium (Chloride) 265 mls @ 265 mls/hr IV Q24H [facility] Last Infusion: 08/16/21 22:44 Dose: 0 mls/hr Documented by: DILEEP Levothyroxine Sodium (Levothyroxine Sodium 50 Mcg Tablet) 50 mcg PO DAILY@0600 [facility] Last Admin: 08/17/21 05:28 Dose: 50 mcg Documented by: DILEEP Loratadine (Loratadine 10 Mg Tablet) 10 mg PO DAILY [facility] Last Admin: 08/17/21 08:05 Dose: 10 mg Documented by: SAPPHIRE Melatonin (Melatonin 3 Mg Tablet) 6 mg PO BEDTIME PRN PRN Reason: Insomnia Last Admin: 08/10/21 20:36 Dose: 6 mg Documented by: MATTHEW Midodrine (Midodrine Hcl 10 Mg Tablet) 10 mg PO TID [facility] Last Admin: 08/17/21 08:06 Dose: 10 mg Documented by: SAPPHIRE Montelukast Sodium (Montelukast Sodium 10 Mg Tablet) 10 mg PO BEDTIME [facility] Last Admin: 08/16/21 21:30 Dose: 10 mg Documented by: DILEEP Omeprazole (Omeprazole 20 Mg Capsule.Dr) 20 mg PO DAILY@0630 [facility] Last Admin: 08/17/21 05:28 Dose: 20 mg Documented by: DILEEP Senna (Sennosides 8.6 Mg Tablet) 17.2 mg PO BEDTIME PRN PRN Reason: Constipation Sodium Chloride (0.9 % Sodium Chloride Flush 3 Ml Syringe) 3 ml IVFLUSH QSHIFT [facility] Last Admin: 08/17/21 08:07 Dose: 3 ml Documented by: SAPPHIRE Vitamin D (Cholecalciferol (Vitamin D3) 25 Mcg Tablet) 50 mcg PO DAILY [facility] Last Admin: 08/17/21 08:06 Dose: 50 mcg Documented by: SAPPHIRE Warfarin Sodium (Warfarin Sodium 5 Mg Tablet) 5 mg PO DAILY@1800 [facility] Last Admin: 08/16/21 18:22 Dose: 5 mg Documented by: MARTELL Labs CBC & Chem 7: 08/17/21 04:29 08/17/21 04:29 Labs: Laboratory Results - last 24 hr 08/16/21 08/17/21 08/17/21 20:01 04:29 04:29 MCV 94.5 MCH 28.3 MCHC 29.9 L RDW 14.2 Plt Count 233 MPV 10.1 Absolute Nucleated RBC 0.000 Nucleated RBC % (auto) 0.0 PT 16.2 H INR 1.4 H Anion Gap Estim Creat Clear Calc Estimated GFR Random Glucose Calcium Vancomycin Trough 14.6 08/17/21 04:29 MCV MCH MCHC RDW Plt Count MPV Absolute Nucleated RBC Nucleated RBC % (auto) PT INR Anion Gap 10 L Estim Creat Clear Calc 38.3 Estimated GFR 43 Random Glucose 74 Calcium 8.1 L Vancomycin Trough Assessment and Plan (1) Atrial fibrillation with rapid ventricular response: Status: Acute (2) Cellulitis of right leg: Status: Acute (3) Lymphedema: Status: Acute (4) Acute kidney failure: Status: Acute Plan 81-year-old female with a past medical history of hypertension, CHF, AFib on Coumadin, asthma, hypothyroidism, venous stasis, history of recurrent lower extremity cellulitis; presented to the hospital today with a chief complaint of right lower extremity pain, tenderness, discharge; noted to have leukocytosis of 25; concern for right lower extremity cellulitis.? Admitted for further management. Atrial fibrillation with RVR soft bp making HR control difficult seen by cardiology, rec to increase midodrine to 10 tid stop cardizem and add amiodarone 400mg BID for 2 weeks then 400 mg daily Right lower extremity cellulitis. leukocytosis resolved. afebrile, but Swelling and erythema worsening No abscess on ultrasound or CT, Has chronic venous stasis/lymphedema discharge/ open ulcer on the right leg anteriorly, continue wound care Initially treated with IV vanco and zosyn, zosyn stopped, doxycycline at discharge continue wound care Blood cultures negative to date Still with swelling and pain, venous duplex ordered to r/o DVT JEN. Likely prerenal?. Improving Avoid nephrotoxins.? Follow renal function History of asthma Stable.? Patient on Xolair.? Nebulizations p.r.n.. INR supratherapeutic. resolved Monitor INR and resume Coumadin accordingly. Attending Dr. Fields DVT prophylaxis:?with Coumadin Code status:? Full code Quality Stroke Does the patient have a stroke diagnosis?: No VTE Prior VTE?: No VTE Risk Level:: Medical - moderate - high VTE Device Contraindication: Treatment Not Indicated VTE Drug Contraindication: N/A - Med Ordered
[2021-08-17] MEDS: Warfarin Sodium 5 MG TABLET PO (17:55)
[2021-08-17] MEDS: Montelukast Sodium 10 MG TABLET PO (20:15)
[2021-08-17] MEDS: Benzonatate 100 MG CAPSULE PO (22:15)
[2021-08-17] MEDS: vancomycin HCL 750 MG in 0.9 % Sodium Chloride 250 ML 265 MG IV (22:16)
[2021-08-18] MEDS: dilTIAZem HCL 30 MG TABLET 15 MG PO (03:40)
[2021-08-18 04:00] VITALS: BP 101/58; PULSE 69; RESP 18; TEMP 36.8; O2SAT 98
[2021-08-18] MEDS: Omeprazole 20 MG CAPSULE.DR PO (05:39)
[2021-08-18] MEDS: Levothyroxine Sodium 50 MCG TABLET PO (05:39)
[2021-08-18 07:51] VITALS: BP 98/55; PULSE 84; RESP 19; TEMP 37.1; O2SAT 96
[2021-08-18 09:22] LABS: INTERNATIONAL NORM RATIO 1.6 (0.9-1.1); Prothrombin Time 18.6 SEC (9.9-13.0)
[2021-08-18 09:36] LABS: Estimated Glomerular Filt Rate 42
--- NOTE | 2021-08-18 09:45 | PM.PNCARD ---
Subjective Subjective Date of Service: 08/18/21 Principal diagnosis: atrial fibrillation Interval history: She states that she feels OK. No new complaints. Review of Systems Review of Systems Yes all other systems are reviewed and are negative Cardiovascular: Reports as per HPI, Reports no additional cardiovascular complaints, Denies acrocyanosis, Denies cool extremities, Denies chest pain, Denies diaphoresis, Denies syncope, Denies claudication, Denies leg edema, Denies lightheadedness, Denies palpitations and Denies dyspnea Respiratory: Denies dyspnea Denies syncope Endocrine: Denies palpitations Physical Exam Vital Signs: Last Vital Signs Temp 98.7 F 08/18/21 07:51 Pulse 84 08/18/21 07:51 Resp 19 08/18/21 07:51 BP 98/55 L 08/18/21 07:51 Pulse Ox 96 08/18/21 07:51 BMI result Body Mass Index 34.3 Const General: comfortable HENMT Other: Unremarkable Neck Neck: Yes normal visual inspection Chest Chest palpation & inspection: normal inspection of the chest Resp Auscultation: clear to auscultation bilaterally Cardio Palpation: normal PMI Heart sounds: S1 normal heart sound present, S2 normal heart sound present, no gallops, Murmur heart sound present (2/6 SM) and no rubs GI Palpation (GI): Soft to palpation Back/Spine/Pelvis Other: unremarkable Skin Lesions: other Neuro General: other Extrem Other: chronic changes, swollen, bandaged General: Yes other Psych Mental Status: other Objective Labs and Meds Result diagrams: 08/17/21 04:29 08/18/21 08:59 Lab results: Laboratory Results - last 24 hr 08/18/21 08/18/21 08:59 08:59 PT 18.6 H INR 1.6 H Creatinine 1.22 Estim Creat Clear Calc 38.0 Estimated GFR 42 Progress Note: A&P Assessment and plan (1) Atrial fibrillation with rapid ventricular response: Status: Acute (2) Idiopathic hypotension: Status: Acute (3) Acute on chronic right heart failure: Status: Acute (4) Pulmonary hypertension: Status: Acute (5) Tricuspid valve regurgitation: Status: Acute Plan Echocardiogram with LVEF 50-55%; moderately increased right ventricular size with normal function. Moderately dilated left atrial size. Moderate tricuspid regurgitation. [id number] pulmonary hypertension. Her leg edema is probably multifactorial from some combination of right heart dysfunction, venous insufficiency, weight etc., Based on evaluation, seems longstanding. Unlikely to resolve completely. May use diuretics as tolerated by blood pressure and renal function. With regard to atrial fibrillation- due to low blood pressure, unable to use diltiazem. Atrial fibrillation rates up and down. Borderline GFR. Hence may use amiodarone for rate control purposes. May stop diltiazem completely as she is on a very very low dose at 15 mg q.6. She is also on midodrine 10 mg t.i.d.. Continue anticoagulation. Fall Risk Details Current Medications: Current Medications Acetaminophen (Acetaminophen 325 Mg Tablet) 650 mg PO Q6H PRN PRN Reason: Pain, Mild (Pain Scale 1-3) Last Admin: 08/17/21 08:06 Dose: 650 mg Documented by: Amiodarone HCl (Amiodarone Hcl 200 Mg Tablet) 400 mg PO BID [facility] Last Admin: 08/17/21 20:15 Dose: 400 mg Documented by: Benzonatate (Benzonatate 100 Mg Capsule) 100 mg PO TID PRN PRN Reason: Cough Last Admin: 08/17/21 22:15 Dose: 100 mg Documented by: Diltiazem HCl (Diltiazem Hcl 30 Mg Tablet) 15 mg PO Q6H [facility]; Protocol Last Admin: 08/18/21 03:40 Dose: 15 mg Documented by: Vancomycin HCl 750 mg/ Sodium (Chloride) 265 mls @ 265 mls/hr IV Q24H [facility] Last Infusion: 08/17/21 23:41 Dose: Infused Documented by: Levothyroxine Sodium (Levothyroxine Sodium 50 Mcg Tablet) 50 mcg PO DAILY@0600 [facility] Last Admin: 08/18/21 05:39 Dose: 50 mcg Documented by: Loratadine (Loratadine 10 Mg Tablet) 10 mg PO DAILY [facility] Last Admin: 08/17/21 08:05 Dose: 10 mg Documented by: Melatonin (Melatonin 3 Mg Tablet) 6 mg PO BEDTIME PRN PRN Reason: Insomnia Last Admin: 08/10/21 20:36 Dose: 6 mg Documented by: Midodrine (Midodrine Hcl 10 Mg Tablet) 10 mg PO TID [facility] Last Admin: 08/17/21 20:15 Dose: 10 mg Documented by: Montelukast Sodium (Montelukast Sodium 10 Mg Tablet) 10 mg PO BEDTIME [facility] Last Admin: 08/17/21 20:15 Dose: 10 mg Documented by: Omeprazole (Omeprazole 20 Mg Capsule.Dr) 20 mg PO DAILY@0630 [facility] Last Admin: 08/18/21 05:39 Dose: 20 mg Documented by: Senna (Sennosides 8.6 Mg Tablet) 17.2 mg PO BEDTIME PRN PRN Reason: Constipation Sodium Chloride (0.9 % Sodium Chloride Flush 3 Ml Syringe) 3 ml IVFLUSH QSHIFT [facility] Last Admin: 08/17/21 23:36 Dose: 3 ml Documented by: Vitamin D (Cholecalciferol (Vitamin D3) 25 Mcg Tablet) 50 mcg PO DAILY [facility] Last Admin: 08/17/21 08:06 Dose: 50 mcg Documented by: Warfarin Sodium (Warfarin Sodium 5 Mg Tablet) 5 mg PO DAILY@1800 [facility] Last Admin: 08/17/21 17:55 Dose: 5 mg Documented by: Time Spent With Patient Time: Total time spent is greater than 50% in coordination of care (as documented) at patient's floor/unit and/or counseling patient: Time with patient: less than 15 minutes Progress Note: Quality Stroke Does the patient have a stroke diagnosis?: No Procedures Date of Service Date of Service: 08/18/21
--- NOTE | 2021-08-18 10:17 | MHC.CM.PN ---
[id number] DX Cellulitis DP home with new [facility] via [facility]. Cardiac medications changes were made yesterday 08/17/21.
[2021-08-18] MEDS: Loratadine 10 MG TABLET PO (10:23)
[2021-08-18] MEDS: 0.9 % Sodium Chloride Flush 3 ML SYRINGE IVFLUSH (10:23)
[2021-08-18] MEDS: Amiodarone HCL 200 MG TABLET 400 MG PO (10:23)
[2021-08-18] MEDS: Cholecalciferol (Vitamin D3) 25 MCG TABLET 50 MCG PO (10:23)
[2021-08-18] MEDS: Midodrine HCl 10 MG TABLET PO (10:23)
--- NOTE | 2021-08-18 10:51 | P.DS_ITS ---
DS: Providers Provider Date of Service: 08/18/21 Date of admission: 08/09/21 19:25 Primary care physician: Laxmi Gutierrez MD Consults: 08/10/21 12:23 Consult to Infectious Diseases Routine Consulting Provider: Eleni Kraus Reason for consultation: cellulitis Has provider been notified: No 08/13/21 08:30 Consult to Cardiology Routine Consulting Provider: Michele Rosario Reason for consultation: afib, hypotention making med management difficult Has provider been notified: No 08/16/21 15:19 Consult to Cardiology Routine Consulting Provider: Jaziel Caballero Reason for consultation: afib rvr, hypotension Has provider been notified: No Attending physician on discharge: Rosmery Nieto Discharging clinician: [place] DS: Diagnosis Discharge Diagnosis (1) Atrial fibrillation with rapid ventricular response: Status: Acute (2) Idiopathic hypotension: Status: Acute (3) Acute on chronic right heart failure: Status: Acute (4) Pulmonary hypertension: Status: Acute (5) Tricuspid valve regurgitation: Status: Acute DS: Summary Hospital Course Hospital Course: HP as per admitting provider 81-year-old female with a past history of hypertension, asthma, CHF, AFib on Coumadin, chronic lymphedema, history of recurrent right lower extremity cellulitis, venous stasis dermatitis; presented to the hospital with a chief complaint of right legs swelling, fall smelling discharge for the past few days.? Denies any fevers.? Denies any chest pain or palpitations.?Denies any nausea vomiting diarrhea.?Denies any urinary symptoms .? Atrial fibrillation with RVR. Difficult to control due to hypotension. Initally treated with Diltiazem but due to low BP it was decreased to 15mg TID and midodrine 10mg TID added. Seen by cardiology. Amiodarone added, 400mg BID for 14 days then 200mg daily Right lower extremity cellulitis. leukocytosis resolved. afebrile, but Swelling and erythema worsening, treated with Vancomycin and zosyn. Still has some swelling to right leg but alot of it is chronic and some degree of stasis/lymphedema. She can continue her lasix at home. No DVT found JEN. Likely prerenal. Resolved Time Spent with Patient Time attestation: Total time spent providing and/or coordinating discharge services: Discharge coordination time: Greater than 30 minutes Quality: Stroke Does the patient have a stroke diagnosis?: No Physical Exam Vital Signs: Vital Signs: Last Vital Signs Temp 98.7 F 08/18/21 07:51 Pulse 84 08/18/21 07:51 Resp 19 08/18/21 07:51 BP 98/55 L 08/18/21 07:51 Pulse Ox 96 08/18/21 07:51 BMI result Body Mass Index 34.3 Appearing in no acute distress head is normocephalic atraumatic eyes pupils are PERRLA sclera is anicteric mouth throat mucous membranes are intact and moist neck is supple no lymphadenopathy, no JVD noted lung sounds are clear to auscultation heart regular rate rhythm, clear S1, S2 positive bowel sounds, abdomen is soft, nontender neuro patient is alert x3, no focal deficits Chornic venous stasis with chronic skin changes DS: Data Data Completed and Pending Labs on day of discharge: Laboratory Results - last 24 hr 08/18/21 08/18/21 08:59 08:59 PT 18.6 H INR 1.6 H Creatinine 1.22 Estim Creat Clear Calc 38.0 Estimated GFR 42 Discharge Plan Discharge Anticipated Discharge Date/Time: 08/18/21 10:37 Patient Disposition: Home Health Service Discharge Diagnosis: Atrial fibrillation with RVR Right lower extremity cellulitis JEN Referrals: Laxmi Gutierrez MD [Primary Care Provider] - 1 Week Discharge Medications: New amiodarone 200 mg Tablet 400 mg PO BID Qty: 64 0RF Rx Instructions: Take 400mg twice daily for a total of 14 days (08/31/21), then 200mg daily Continued midodrine 5 mg tablet 5 mg PO TID 0RF warfarin 2.5 mg tablet 5 mg PO DAILY 0RF diltiazem HCl 120 mg capsule,extended release 24 hr 120 mg PO BID 0RF levothyroxine 50 mcg tablet 50 mcg PO DAILY 0RF ferrous sulfate [FeroSul] 325 mg (65 mg iron) tablet 325 mg PO DAILY 0RF omeprazole 20 mg capsule,delayed release(DR/EC) 20 mg PO DAILY@0630 0RF loratadine 10 mg tablet 10 mg PO DAILY 0RF calcium carbonate-vitamin D3 600 mg(1,500mg) -400 unit tablet 1 tab PO BID 0RF cholecalciferol (vitamin D3) [Vitamin D3] 50 mcg (2,000 unit) capsule 50 mcg PO DAILY 0RF Xolair 150 mg recon soln 300 mg subcut Q2W 0RF Trelegy Ellipta 100-62.5-25 mcg blister with device 1 puff inhalation DAILY 0RF albuterol sulfate 2.5 mg /3 mL (0.083 %) solution for nebulization 2.5 mg inhalation Q4H PRN (Reason: Shortness Of Breath) 0RF montelukast 10 mg tablet 1 tab PO DAILY 0RF furosemide 40 mg tablet 1 tab PO DAILY 0RF Discharge Orders: Discharge Order (Routine); Ordered 08/18/21 Ordered By: [place] Diet: advance to usual diet Activity on Discharge: As tolerated Stand Alone Forms: Patient Portal Discharge page Care Plan Goals: Stable blood pressure and heart rate Health Concerns: Atrial fibrillation with RVR Right lower extremity cellulitis JEN Plan of Treatment: You have been started on a new medication called amiodarone. This needs to be monitored closely by a peripheral edp equipment operator please make a follow-up appointment within the next 2 weeks with your peripheral edp equipment operator. He will be on 400 mg of amiodarone twice a day for a total 14 days then 400 mg daily Follow-up with your primary care provider as needed Monitor blood pressure closely Assessment: See discharge summary
[2021-08-18 11:46] VITALS: BP 98/55; PULSE 84; O2SAT 96
[2021-08-18 12:00] VITALS: BP 112/60; PULSE 82; RESP 18; TEMP 36.4; O2SAT 98
--- NOTE | 2021-08-18 14:47 | MHC.CM.PN ---
Female 81 DX Cellulitis discharged today to home with [facility]. She transported via [facility]. Her son Gwen was notified of the discharge. He will receive the patient.
== END 2021-08-18 12:48 | disposition home health service (06) | DRG 603 ==
LOC: HO.ED 17:43 → HO.EDOVER 20:07 → HO.S3 08-10 15:23 → HO.IMC 08-17 21:47
PROVIDERS: Physician Assistant Medical; Admitting Provider Hospitalist; Emergency Provider Internal Medicine; PCP Internal Medicine; Visit Provider Nurse Practitioner Acute Care
DX: L03.115 Cellulitis of right lower limb (principal); N17.9 Acute kidney failure, unspecified; I48.20 Chronic atrial fibrillation, unspecified; I87.331 Chronic venous hypertension (idiopathic) with ulcer and inflammation of right lower extremity; L97.819 Non-pressure chronic ulcer of other part of right lower leg with unspecified severity; I95.0 Idiopathic hypotension; I27.29 Other secondary pulmonary hypertension; I50.813 Acute on chronic right heart failure; I89.0 Lymphedema, not elsewhere classified; I07.1 Rheumatic tricuspid insufficiency; J45.909 Unspecified asthma, uncomplicated; R79.1 Abnormal coagulation profile; Z20.822 Contact with and (suspected) exposure to COVID-19; Z79.01 Long term (current) use of anticoagulants; Z79.890 Hormone replacement therapy; Z79.899 Other long term (current) drug therapy
CPT/HCPCS: 36415; 71045; 73700; 76882; 80048; 80202; 81001; 82565; 83605; 83880; 84484; 85007; 85025; 85027; 85610; 85730; 87040; 87635; 93005; 93306; 93971; 94640; 96365; 96367; 96375; 97110; 97116; 97162; 99285; J1940; J2543; J3370

== ENCOUNTER 2021-09-13 11:07 | Inpatient (IN) | payer OTHER, SELFPAY ==
[2021-09-13] VITALS (7 sets, daily range): BP systolic 85–109; BP diastolic 48–65; PULSE 84–97; RESP 16–20; TEMP 36.8–37.1; O2SAT 94–98; BMI 32.9
--- NOTE | ~2021-09-13 | US_ITS ---
EXAMINATION: US VENOUS ULTRASOUND WITH DOPPLER LOWER EXTREMITY, BILATERAL CLINICAL INFORMATION: Swelling, pain and redness COMPARISON: None TECHNIQUE: Ultrasound of the deep veins is performed from the hip to the calf with compression sonography and color and pulse Doppler assessment. Spectral analysis with color-flow imaging is performed. FINDINGS: RIGHT: There is normal venous compression and respiratory variation and augmented flow. The visualized common femoral vein, superficial femoral vein, profunda femoral vein, popliteal vein, and the trifurcation region shows no evidence of deep venous thrombosis. There is no significant popliteal fossa cyst. Right posterior proximal and mid tibial and peroneal veins are not well visualized. Tibial There is no significant popliteal fossa cyst. LEFT: There is normal venous compression and respiratory variation and augmented flow. The visualized common femoral vein, superficial femoral vein, profunda femoral vein, popliteal vein, and the trifurcation region shows no evidence of deep venous thrombosis. There is no significant popliteal fossa cyst. Left proximal and mid posterior tibial and peroneal vein is not seen If the patient's symptoms persist, followup ultrasound in 5 days 7 days might be of value to exclude proximal propagation from a non-visualized calf vein. US/US venous duplex LE BI IMPRESSION: No DVT demonstrated in bilateral lower extremity.
--- NOTE | ~2021-09-13 | XR_ITS ---
EXAMINATION: XR CHEST CLINICAL INFORMATION: Shortness of breath COMPARISON: Previous chest x-ray July 2021 TECHNIQUE: Frontal view of the chest was obtained. FINDINGS: The cardiac silhouette is enlarged but stable. There may be pulmonary venous redistribution. The lungs are otherwise clear. There is no pleural effusion or pneumothorax. No acute bone abnormality. XR/XR chest 1V IMPRESSION: Enlarged cardiac silhouette and question pulmonary venous redistribution.
--- NOTE | 2021-09-13 12:46 | ECG_ITS ---
Test Reason : afib Blood Pressure : / mmHG Vent. Rate : 097 BPM Atrial Rate : 000 BPM P-R Int : 000 ms QRS Dur : 102 ms QT Int : 368 ms P-R-T Axes : 000 -04 068 degrees QTc Int : 467 ms Atrial fibrillation Nonspecific T wave abnormality Abnormal ECG When compared with ECG of 09-AUG-2021 14:04, Nonspecific T wave abnormality, worse in Lateral leads Referred By: Eva Jarvis Electronically Signed By:Elgin Hamilton
--- NOTE | 2021-09-13 12:58 | ED.SOB ---
HPI - SOB/Dyspnea General Chief Complaint: Dyspnea Stated Complaint: SOB/R leg swelling Time Seen by Provider: 09/13/21 12:46 Source: patient, family and old records reviewed Mode of arrival: wheelchair Limitations: no limitations History of Present Illness HPI Narrative: 81-year-old female with a history of CHF, venous insufficiency with chronic lower extremity edema, history right lower extremity cellulitis, atrial fibrillation on Coumadin pulmonary hypertension, hypothyroidism with [place] [facility] [place] JEN, volume overload, rapid afibm, RLE cellulitis who presents to the ER with worsening SOB and lower extremity swelling for the last couple of weeks. Patient lives home alone but her son has been staying with her to try to help her care for herself. He states that patient was up most of the night last night complaining of shortness of breath, she was having a dry cough, having difficulty falling asleep with reports of nausea. He reports this morning he noticed her left lower leg both posterior and anterior is much more swollen and red than prior. She has not had any fevers at home. She has been compliant with her Lasix. She states her breathing is worse with laying down and any exertion. She denies any chest pain. MD elicited complaint: shortness of breath and cough Pertinent past history: asthma and congestive heart failure Onset (ago): week(s) Context: recent illness Timing: progressively worsening Severity: moderate Exacerbating factors: lying flat, exertion and coughing Relieving factors: rest Known history of: asthma and congestive heart failure Associated symptoms: cough, sputum production (yellow) and lower extremity pain Treatment prior to arrival: none Related Data Home oxygen amount: none Home Medications Medication Instructions Recorded Confirmed calcium carbonate 600 mg-vitamin 1 tab PO BID 02/04/21 09/13/21 D3 10 mcg (400 unit) tablet cholecalciferol (vitamin D3) 50 50 mcg PO DAILY 02/04/21 09/13/21 mcg (2,000 unit) capsule (Vitamin D3) diltiazem HCl 120 mg capsule,24 120 mg PO BID 02/04/21 09/13/21 hr,extended release ferrous sulfate 325 mg (65 mg 325 mg PO DAILY 02/04/21 09/13/21 iron) tablet (FeroSul) levothyroxine 50 mcg tablet 50 mcg PO DAILY 02/04/21 09/13/21 loratadine 10 mg tablet 10 mg PO DAILY 02/04/21 09/13/21 midodrine 5 mg tablet 5 mg PO TID 02/04/21 09/13/21 omeprazole 20 mg capsule,delayed 20 mg PO DAILY@0630 02/04/21 09/13/21 release warfarin 2.5 mg tablet 2.5 mg PO DAILY 02/04/21 09/13/21 fluticasone fur. 100 mcg-umeclid 1 puff INHALATION DAILY 05/03/21 09/13/21 62.5 mcg-vilant 25 mcg inhalat.powder (Trelegy Ellipta) omalizumab 150 mg subcutaneous 300 mg SUBCUT Q2W 05/03/21 09/13/21 solution (Xolair) albuterol sulfate 2.5 mg INHALATION Q4H PRN 08/09/21 09/13/21 montelukast 10 mg tablet 1 tab PO DAILY 08/09/21 09/13/21 amiodarone 200 mg tablet 200 mg DAILY 09/13/21 09/13/21 furosemide 20 mg tablet 60 mg PO DAILY 09/13/21 09/13/21 mupirocin 2 % topical ointment 1 applic TOPICAL BID-TID 09/13/21 09/13/21 Allergies Allergy/AdvReac Type Severity Reaction Status Date / Time lisinopril [LISINOPRIL] Allergy Unknown UNKNOWN Verified 02/05/21 21:56 simvastatin [SIMVASTATIN] Allergy Unknown UNKNOWN Verified 02/05/21 21:56 Review of Systems Review of Systems: Constitutional: No Fever, No Chills ENT/Mouth: No sore throat, No Rhinorrhea, No Swallowing Difficulty Eyes: No Eye Pain, No Swelling, No Redness Cardiovascular: No Chest Pain, + SOB, + Orthopnea, + Edema Respiratory: + Cough, + Sputum, + Wheezing, + dyspnea Gastrointestinal: + Nausea, No Vomiting, No Diarrhea, No abdominal Pain, No Hematochezia, No Melena Genitourinary: No Dysuria, No Urinary Frequency, No Hematuria Musculoskeletal: No joint pain, No Myalgias Skin: + Skin Lesions, No rash Neuro: No Weakness, No Numbness, No Dizziness, No Headache Psych: + Anxiety/Panic, No Depression Heme/Lymph: No Bruising, No Lymphadenopathy Endocrine: No Polyuria, No Polydipsia PMFSH Past Medical History Medical History Afib Asthma CHF (congestive heart failure) HTN (hypertension) Hypothyroid Sepsis Venous stasis dermatitis of right lower extremity Surgical History S/P hip replacement Social History Social History Household Members: None Housing: Apartment Do you presently have visiting nurse or other home services: Yes Alcohol intake: never Patient Tobacco Use Status: Never used Tobacco Second Hand Smoke Exposure: No Advance Directives: Yes Advance Directives on File: Yes Advance Directives Date on File: 02/05/21 service: No Current occupational status: disabled Physical Exam Vital Signs: Vital Signs: Last Vital Signs Temp 98.3 F 09/13/21 14:00 Pulse 90 09/13/21 16:14 Resp 16 09/13/21 16:14 BP 106/57 L 09/13/21 16:14 Pulse Ox 98 09/13/21 16:14 BMI result Body Mass Index 32.9 Appearance: Alert. Oriented X3. No acute distress. Eyes: Pupils equal, round and reactive to light. ENT: Pharynx normal. Neck: Normal inspection. Neck supple. CVS: Normal heart rate and rhythm. Pulses normal. Respiratory: Mild respiratory distress. Breath sounds with crackles to the middle lung hall bilaterally, L>R. Abdomen: Obese, Soft and nontender. +BS x4 Skin: Skin warm and dry. Normal skin color. Normal skin turgor. No rashes. Extremities: 3+ lower extremity edema bilaterally with chronic venous stasis changes, LLE with increased edema, warmth and erythema of the proximal portion of the lower leg. right lower extremity with foul smell, no visible drainage, some cracking of the skin and weeping Neuro: Oriented X 3. No motor deficit. No sensory deficit. Course Course Course Narrative: 81-year-old female with a history of CHF, chronic venous stasis and lower extremity edema, right lower extremity cellulitis, asthma, obesity who presents to the ER with worsening shortness of breath over the last couple of weeks, most notably last evening in addition to worsening left lower extremity swelling, redness and erythema. Hypotensive to 80s over 40s in triage, repeat BP in the treatment room is much improved with a map of 79. She is awake alert and oriented. She has crackles in her bilateral bases but is not hypoxic or working to breathe. Concern for acute volume overload and CHF exacerbation. Will get chest x-ray, lab workup, and check lower extremity Dopplers. Looks like she has had several of them in the past but never of the left lower extremity. It looks more like cellulitis than blood clot but will assess with Dopplers. Reevaluation(s) Reevaluation #1: Labs return with white blood cell count of 22,000. Concern for lower extremity cellulitis of the left leg. Will treat with IV vanco and Rocephin. She is not diabetic. No evidence of abscess. Her lab workup is returning with an acute kidney injury, creatinine of 2.73 from a baseline of 1.2 to about a month ago. Her sodium is also 131, most likely hypervolemic hyponatremia. BNP 303 which is the highest it has ever been for her. Will give a dose IV albumin, p.o. midodrine, Lasix 80 mg IV push her edema and respiratory complaints. She remained stable on room air with SpO2 94-95%. Patient require admission for further management. Lower extremity Dopplers are pending as well as EKG. Reevaluation #2: LE dopplers negative. EKG rate controlled afib. patient meets sepsis criteria with leukocytosis, HR >90 and source of LLE cellulitis. She has JEN and hypotension (chronic) and normal lactic acid. Her JEN may be cardiorenal; she presented similar last month and her renal function improved with diuresis. Will plan to hold off on fluids given concern for volume overload and CHF and potential respiratory decompensation. BP improved 106/57 with albumin and midodrine. Spoke with Dr. Fields who will admit for further management. MDM - SOB/Dyspnea Medical Records Attestation: I reviewed the patient's medical records. Lab Data Attestation: I reviewed the patient's lab results. Result diagrams: 09/13/21 13:51 09/13/21 13:51 Labs: Lab Results 09/13/21 09/13/21 09/13/21 Range/Units 13:51 13:51 13:51 WBC 22.0 H (4.8-10.8) X10*3/uL RBC 3.58 L (4.20-5.50) X10*6/uL Hgb 10.2 L (12.0-16.0) g/dl Hct 32.8 L (37.0-47.0) % MCV 91.6 (80.0-98.0) fL MCH 28.5 (27.0-33.0) pg MCHC 31.1 (31.0-35.0) g/dl RDW 16.1 H (11.0-16.0) % Plt Count 116 L D (160-400) X10*3/uL MPV 11.6 (9.4-12.3) fL Immature Gran % (Auto) 0.8 H (0.0-0.4) % Neut % (Auto) 91.4 H (45-73) % Lymph % (Auto) 5.7 L (20-40) % Bonner % (Auto) 2.0 (2-11) % Eos % (Auto) 0.0 (0-4) % Baso % (Auto) 0.1 (0-2) % Lymph # (Auto) 1.3 (1.2-4.9) X10*3/uL Bonner # (Auto) 0.4 (0.1-1.2) X10*3/uL Eos # (Auto) 0.0 (0.0-0.4) X10*3/uL Baso # (Auto) 0.0 (0.0-0.2) X10*3/uL Abs Immat Gran (auto) 0.18 H (0.00-0.03) X10*3/uL Absolute Neuts (auto) 20.1 H (2.0-8.3) x10*3/uL Absolute Nucleated RBC 0.000 (0.0-0.012) X10*3/uL Nucleated RBC % (auto) 0.0 (0.0-0.2) /100WBC Smear Tech's Comments VERIFIED ESR (0-20) MM/HR PT 58.5 H (9.9-13.0) SEC INR 5.0 H* D (0.9-1.1) APTT 64.2 H* D (24.1-38.0) SEC Sodium 131 L (135-145) mmol/L Potassium 4.5 (3.3-5.1) mmol/L Chloride 95 L (96-108) mmol/L Carbon Dioxide 25 (22-29) mmol/L Anion Gap 16 (12-20) BUN 40 H D (9-16) mg/dL Creatinine 2.73 H (0.5-1.4) mg/dL Estim Creat Clear Calc 16.6 Estimated GFR 17 Random Glucose 105 (60-115) mg/dL Lactic Acid (0.5-2.0) mmol/L Calcium 7.9 L (8.4-10.2) mg/dL Magnesium 1.8 (1.6-2.6) mg/dL Total Bilirubin 0.7 (0.0-1.0) mg/dL Direct Bilirubin 0.3 (0.0-0.5) mg/dL AST 23 D (5-31) U/L ALT 13 (0-31) U/L Alkaline Phosphatase 97 D (39-117) U/L Troponin I High Sens (<3.5-17.0) ng/L C-Reactive Protein 27.25 H (< or = 0.50) mg/dL B-Natriuretic Peptide (<100) pg/mL Total Protein 8.1 H (6.5-8.0) g/dL Albumin 2.7 L (3.5-5.0) g/dL Procalcitonin ng/mL COVID-19 ([facility]) (Negative) COVID-19 Clin Com 09/13/21 09/13/21 09/13/21 Range/Units 13:51 13:51 13:51 WBC (4.8-10.8) X10*3/uL RBC (4.20-5.50) X10*6/uL Hgb (12.0-16.0) g/dl Hct (37.0-47.0) % MCV (80.0-98.0) fL MCH (27.0-33.0) pg MCHC (31.0-35.0) g/dl RDW (11.0-16.0) % Plt Count (160-400) X10*3/uL MPV (9.4-12.3) fL Immature Gran % (Auto) (0.0-0.4) % Neut % (Auto) (45-73) % Lymph % (Auto) (20-40) % Bonner % (Auto) (2-11) % Eos % (Auto) (0-4) % Baso % (Auto) (0-2) % Lymph # (Auto) (1.2-4.9) X10*3/uL Bonner # (Auto) (0.1-1.2) X10*3/uL Eos # (Auto) (0.0-0.4) X10*3/uL Baso # (Auto) (0.0-0.2) X10*3/uL Abs Immat Gran (auto) (0.00-0.03) X10*3/uL Absolute Neuts (auto) (2.0-8.3) x10*3/uL Absolute Nucleated RBC (0.0-0.012) X10*3/uL Nucleated RBC % (auto) (0.0-0.2) /100WBC Smear Tech's Comments ESR (0-20) MM/HR PT (9.9-13.0) SEC INR (0.9-1.1) APTT (24.1-38.0) SEC Sodium (135-145) mmol/L Potassium (3.3-5.1) mmol/L Chloride (96-108) mmol/L Carbon Dioxide (22-29) mmol/L Anion Gap (12-20) BUN (9-16) mg/dL Creatinine (0.5-1.4) mg/dL Estim Creat Clear Calc Estimated GFR Random Glucose (60-115) mg/dL Lactic Acid 1.7 (0.5-2.0) mmol/L Calcium (8.4-10.2) mg/dL Magnesium (1.6-2.6) mg/dL Total Bilirubin (0.0-1.0) mg/dL Direct Bilirubin (0.0-0.5) mg/dL AST (5-31) U/L ALT (0-31) U/L Alkaline Phosphatase (39-117) U/L Troponin I High Sens 6.8 (<3.5-17.0) ng/L C-Reactive Protein (< or = 0.50) mg/dL B-Natriuretic Peptide 302 H (<100) pg/mL Total Protein (6.5-8.0) g/dL Albumin (3.5-5.0) g/dL Procalcitonin ng/mL COVID-19 ([facility]) Negative (Negative) COVID-19 Clin Com See Note 09/13/21 09/13/21 Range/Units 13:51 13:51 WBC (4.8-10.8) X10*3/uL RBC (4.20-5.50) X10*6/uL Hgb (12.0-16.0) g/dl Hct (37.0-47.0) % MCV (80.0-98.0) fL MCH (27.0-33.0) pg MCHC (31.0-35.0) g/dl RDW (11.0-16.0) % Plt Count (160-400) X10*3/uL MPV (9.4-12.3) fL Immature Gran % (Auto) (0.0-0.4) % Neut % (Auto) (45-73) % Lymph % (Auto) (20-40) % Bonner % (Auto) (2-11) % Eos % (Auto) (0-4) % Baso % (Auto) (0-2) % Lymph # (Auto) (1.2-4.9) X10*3/uL Bonner # (Auto) (0.1-1.2) X10*3/uL Eos # (Auto) (0.0-0.4) X10*3/uL Baso # (Auto) (0.0-0.2) X10*3/uL Abs Immat Gran (auto) (0.00-0.03) X10*3/uL Absolute Neuts (auto) (2.0-8.3) x10*3/uL Absolute Nucleated RBC (0.0-0.012) X10*3/uL Nucleated RBC % (auto) (0.0-0.2) /100WBC Smear Tech's Comments ESR 95 H (0-20) MM/HR PT (9.9-13.0) SEC INR (0.9-1.1) APTT (24.1-38.0) SEC Sodium (135-145) mmol/L Potassium (3.3-5.1) mmol/L Chloride (96-108) mmol/L Carbon Dioxide (22-29) mmol/L Anion Gap (12-20) BUN (9-16) mg/dL Creatinine (0.5-1.4) mg/dL Estim Creat Clear Calc Estimated GFR Random Glucose (60-115) mg/dL Lactic Acid (0.5-2.0) mmol/L Calcium (8.4-10.2) mg/dL Magnesium (1.6-2.6) mg/dL Total Bilirubin (0.0-1.0) mg/dL Direct Bilirubin (0.0-0.5) mg/dL AST (5-31) U/L ALT (0-31) U/L Alkaline Phosphatase (39-117) U/L Troponin I High Sens (<3.5-17.0) ng/L C-Reactive Protein (< or = 0.50) mg/dL B-Natriuretic Peptide (<100) pg/mL Total Protein (6.5-8.0) g/dL Albumin (3.5-5.0) g/dL Procalcitonin 4.18 ng/mL COVID-19 ([facility]) (Negative) COVID-19 Clin Com ECG Data Attestation: I personally reviewed and interpreted this ECG as follows: ECG interpretation date: 09/13/21 ECG interpretation time: 16:13 Prior ECG tracings: available for review Interpretation: Atrial fibrillation, heart rate 97 beats per minute, nonspecific T-wave abnormality, no ST segment elevations or depressions. Critical Care Time Critical Care Time Critical Care Time: Yes Total Critical Care Time: 39 Attestation: I have personally provided critical care time exclusive of time spent on separately billable procedures. Time includes review of lab data, radiology results, discussion with consultants, and monitoring for potential decompensation. Intervention performed as documented. Discharge Plan Discharge Clinical Impression: JEN (acute kidney injury), Cellulitis of left leg, Sepsis Patient Disposition: Admitted As Inpatient
--- NOTE | 2021-09-13 13:24 | PHA.MEDREC ---
Pharmacy Consult ? Medication Reconciliation Pharmacy has completed the medication reconciliation.
--- NOTE | 2021-09-13 13:50 | PC.NURSE ---
IV attempted by this nurse, and another, labs drawn and sent by tech.
[2021-09-13 14:08] LABS: Basophils Percent Auto 0.1 % (0-2); Hematocrit 32.8 % (37.0-47.0); Hemoglobin 10.2 g/dl (12.0-16.0); Imm Gran Abs Auto 0.18 X10*3/uL (0.00-0.03); Imm Gran Pct Auto 0.8 % (0.0-0.4); Lymphocytes Absolute Auto 1.3 X10*3/uL (1.2-4.9); Lymphocytes Percent Auto 5.7 % (20-40); MANUAL DIFF FLAG SCAN; Mean Corpuscular HGB Conc 31.1 g/dl (31.0-35.0); Mean Corpuscular Hemoglobin 28.5 pg (27.0-33.0); Mean Corpuscular Volume 91.6 fL (80.0-98.0); Mean Platelet Volume 11.6 fL (9.4-12.3); Monocytes Absolute Auto 0.4 X10*3/uL (0.1-1.2); Neutrophils Absolute Auto 20.1 x10*3/uL (2.0-8.3); Neutrophils Percent Auto 91.4 % (45-73); PLT CLUMP 1; Red Blood Count 3.58 X10*6/uL (4.20-5.50); Red Cell Distribution Width 16.1 % (11.0-16.0); SCAN SMEAR FLAG 1
[2021-09-13 14:20] LABS: Prothrombin Time 58.5 SEC (9.9-13.0)
[2021-09-13 14:23] LABS: Lactic Acid 1.7 mmol/L (0.5-2.0)
[2021-09-13 14:27] LABS: B Type Natriuretic Peptide 302 pg/mL (<100); Troponin-I High Sensitivity 6.8 ng/L (<3.5-17.0)
[2021-09-13 14:28] LABS: Partial Thromboplastin Time 64.2 SEC (24.1-38.0)
--- NOTE | 2021-09-13 14:30 | PC.NURSE ---
critical labs called in - provider notified.
[2021-09-13 14:36] LABS: Platelet Count 116 X10*3/uL (160-400); SLIDE REVIEW VERIFIED
[2021-09-13 14:41] LABS: Alanine Aminotransferase 13 U/L (0-31); Albumin Level 2.7 g/dL (3.5-5.0); Alkaline Phosphatase 97 U/L (39-117); Anion Gap 16 (12-20); Aspartate Amino Transferase 23 U/L (5-31); Bilirubin Direct 0.3 mg/dL (0.0-0.5); Bilirubin Total 0.7 mg/dL (0.0-1.0); Blood Urea Nitrogen 40 mg/dL (9-16); COVID-19 Test Negative (Negative); Calcium 7.9 mg/dL (8.4-10.2); Carbon Dioxide 25 mmol/L (22-29); Chloride 95 mmol/L (96-108); Creatinine Clr Calc Pharmacy 16.6; Estimated Glomerular Filt Rate 17; Glucose Random 105 mg/dL (60-115); IDNOW Serial# 08D9AD1C; Magnesium 1.8 mg/dL (1.6-2.6); Potassium 4.5 mmol/L (3.3-5.1); Sodium 131 mmol/L (135-145); Total Protein 8.1 g/dL (6.5-8.0)
[2021-09-13 15:20] LABS: C Reactive Protein 27.25 mg/dL (< or = 0.50)
[2021-09-13 15:47] LABS: Procalcitonin 4.18 ng/mL
[2021-09-13] MEDS: Furosemide 100 MG/10 ML VIAL 80 MG IVPUSH (15:48)
[2021-09-13] MEDS: Midodrine HCl 10 MG TABLET PO (15:49)
[2021-09-13] MEDS: cefTRIAXone sodium 1 GM in 0.9 % Sodium Chloride 50 ML IV (15:49)
[2021-09-13 15:51] LABS: Erythrocyte Sedimentation Rate 95 MM/HR (0-20)
--- NOTE | 2021-09-13 15:55 | PC.NURSE ---
patient a&ox3, athletic monitor afib 90s, vitals stable-pt continues to be hypotensive 96/54, pt difficult stick- iv was just obtained and iv antibiotics and lasix given per order, family at bedside, call dempsey within reach, will continue to monitor.
--- NOTE | 2021-09-13 16:15 | PC.NURSE ---
EKG obtained, pt a&ox3, vss remain same - hypotensive @ 106/57, afib on monitor - hx of same, abx running, will continue to monitor.
--- NOTE | 2021-09-13 16:27 | HO.SEPSISX_ITS ---
Sepsis Bolus Exclusion Sepsis Bolus Exclusion This patient met severe sepsis criteria due to the following condition(s):: Hypo tension (and JEN) In my clinical judgement the administration of 30 ml/kg of crystalloid would be detrimental to this patient due to the patient's following conditions:: NYHA c lass III or IV Heart Failure(symptoms with low exertion or rest) and Concern for fluid overload Replace the 30 mls/kg with (*zero amount not acceptable): *Note: One of the hall must be documented Colloids amount given in mls:: 100
[2021-09-13] MEDS: Albumin Human 25 % 100 ML IV (16:31)
--- NOTE | 2021-09-13 16:53 | P.HPHOSP_ITS ---
History of Present Illness Date of Service: 09/13/21 Chief Complaint: Shortness of breath 81-year-old female presented with shortness of breath and increased leg swelling and erythema and warmth. Patient was recently admitted to [facility] in July of 2021 for CHF and cellulitis. She was treated with vancomycin and transitioned to doxycycline, and had some improvement after IV diuresis. At time of discharge patient was feeling well. She lives independently. After about 2 weeks she then started to have increasing shortness of breath, increasing lower extremity edema. About 2-3 days prior to presentation the symptoms significantly worsened, positive orthopnea with difficulty sleeping. Weeping from swollen legs, warmth and erythema bilaterally. Denies fevers or chills. In ED WBC elevated 22, evidence of acute kidney injury with creatinine of 2.7. Review of Systems Review of Systems: Constitutional: Denies fever, denies Chills Eyes: denies blurry vision ENT: denies sore throat CVS: denies chest pain Respiratory: dyspnea GI: no abdominal pain : denies dysuria MSK: denies neck pain Skin: erythema Neuro: denies specific motor weakness Psych: denies suicidal ideation Endocrine: denies heat/cold intolerance Hematologic: denies easy bleeding Allergy: denies hives [facility] Medical History Acute on chronic right heart failure Afib Asthma Cellulitis of right leg CHF (congestive heart failure) HTN (hypertension) Hypothyroid Idiopathic hypotension Lymphedema Non-healing wound of right lower extremity Pulmonary hypertension Sepsis Tricuspid valve regurgitation Venous stasis dermatitis of right lower extremity Family History Mother Gastric cancer Surgical History S/P hip replacement Social History Household Members: None Housing: Apartment Do you presently have visiting nurse or other home services: Yes Alcohol intake: never Patient Tobacco Use Status: Never used Tobacco Second Hand Smoke Exposure: No Advance Directives: Yes Advance Directives on File: Yes Advance Directives Date on File: 02/05/21 service: No Current occupational status: disabled Meds Allergies Allergy/AdvReac Type Severity Reaction Status Date / Time lisinopril [LISINOPRIL] Allergy Unknown UNKNOWN Verified 02/05/21 21:56 simvastatin [SIMVASTATIN] Allergy Unknown UNKNOWN Verified 02/05/21 21:56 Active Medications: Current Medications Acetaminophen (Acetaminophen 325 Mg Tablet) 650 mg PO Q6H PRN PRN Reason: Pain, Mild (Pain Scale 1-3) Albuterol Sulfate (Albuterol Sulfate (0.083%) 2.5 Mg/3 Ml Vial.Pratik) 2.5 mg INHALE Q4H PRN PRN Reason: Shortness Of Breath Amiodarone HCl (Amiodarone Hcl 200 Mg Tablet) 200 mg PO DAILY [facility] Calcium Carbonate/Cholecalciferol (Calcium + Vitamin D 250 Mg Tablet) 250 mg PO BID [facility] Diltiazem HCl (Diltiazem Hcl Cd 120 Mg Cap.Er.Deg) 120 mg PO BID [facility]; Protocol Ferrous Sulfate (Ferrous Sulfate 324 Mg Tablet.) 324 mg PO DAILY [facility] Furosemide (Furosemide 40 Mg/4 Ml Vial) 60 mg IVPUSH BID@0900,1800 [facility]; Protocol Vancomycin HCl 1,000 mg/ (Sodium Chloride) 270 mls @ 270 mls/hr IV DAILY [facility] Levothyroxine Sodium (Levothyroxine Sodium 50 Mcg Tablet) 50 mcg PO DAILY@0600 [facility] Loratadine (Loratadine 10 Mg Tablet) 10 mg PO DAILY [facility] Midodrine (Midodrine Hcl 5 Mg Tablet) 5 mg PO TID [facility] Montelukast Sodium (Montelukast Sodium 10 Mg Tablet) 10 mg PO BEDTIME [facility] Non-Formulary Medication (Ktnskawbcac-Nojxnaudo-Kmxfyygk [Trelegy Ellipta]) 1 puff INHALE DAILY [facility] Omeprazole (Omeprazole 20 Mg Capsule.) 20 mg PO DAILY@0630 [facility] Pharmacy Consult (Consult Rx Perform Med Rec) 1 each MISCELLANE ONCE PRN PRN Reason: Consult order Pharmacy Consult (Consult Rx Vancomycin Dosing) 1 each MISCELLANE DAILY PRN PRN Reason: Consult order Sodium Chloride (0.9 % Sodium Chloride Flush 3 Ml Syringe) 3 ml IVFLUSH QSHIFT [facility] Vitamin D (Cholecalciferol (Vitamin D3) 25 Mcg Tablet) 50 mcg PO DAILY [facility] Home Medications Medication Instructions Recorded Confirmed Last Taken Type calcium carbonate 600 mg-vitamin 1 tab PO BID 02/04/21 09/13/21 09/13/21 History D3 10 mcg (400 unit) tablet cholecalciferol (vitamin D3) 50 50 mcg PO DAILY 02/04/21 09/13/21 09/13/21 History mcg (2,000 unit) capsule (Vitamin D3) diltiazem HCl 120 mg capsule,24 120 mg PO BID 02/04/21 09/13/21 09/13/21 History hr,extended release ferrous sulfate 325 mg (65 mg 325 mg PO DAILY 02/04/21 09/13/21 09/13/21 History iron) tablet (FeroSul) levothyroxine 50 mcg tablet 50 mcg PO DAILY 02/04/21 09/13/21 09/13/21 History loratadine 10 mg tablet 10 mg PO DAILY 02/04/21 09/13/21 09/13/21 History midodrine 5 mg tablet 5 mg PO TID 02/04/21 09/13/21 09/13/21 History omeprazole 20 mg capsule,delayed 20 mg PO DAILY@0630 02/04/21 09/13/21 09/13/21 History release warfarin 2.5 mg tablet 2.5 mg PO DAILY 02/04/21 09/13/21 09/12/21 History fluticasone fur. 100 mcg-umeclid 1 puff INHALATION DAILY 05/03/21 09/13/21 09/13/21 History 62.5 mcg-vilant 25 mcg inhalat.powder (Trelegy Ellipta) omalizumab 150 mg subcutaneous 300 mg SUBCUT Q2W 05/03/21 09/13/21 Unknown History solution (Xolair) albuterol sulfate 2.5 mg INHALATION Q4H PRN 08/09/21 09/13/21 Unknown History montelukast 10 mg tablet 1 tab PO DAILY 08/09/21 09/13/21 09/13/21 History amiodarone 200 mg tablet 200 mg DAILY 09/13/21 09/13/21 Unknown History furosemide 20 mg tablet 60 mg PO DAILY 09/13/21 09/13/21 09/12/21 History mupirocin 2 % topical ointment 1 applic TOPICAL BID-TID 09/13/21 09/13/21 09/13/21 History Physical Exam Vital Signs and Narrative: Vital Signs: Last Vital Signs Temp 98.3 F 09/13/21 14:00 Pulse 90 09/13/21 16:14 Resp 16 09/13/21 16:14 BP 106/57 L 09/13/21 16:14 Pulse Ox 98 09/13/21 16:14 BMI result Body Mass Index 32.9 General: dyspneic HEENT: atraumatic Neck: normal to visual inspection CVS: S1, S2, murmur, irregular Resp: diminished bilateral Chest: non tender GI: soft, non tender, non distended : no CVA tenderness Skin: no rashes Extremities: 3+ edema, erythema, warmth L>R see pic Neuro: Oriented X3, grossly intact Psych: cooperative Results Labs CBC and Chem 7: 09/13/21 13:51 09/13/21 13:51 Labs: Laboratory Results - last 24 hr 09/13/21 09/13/21 09/13/21 13:51 13:51 13:51 MCV 91.6 MCH 28.5 MCHC 31.1 RDW 16.1 H Plt Count 116 L D MPV 11.6 Immature Gran % (Auto) 0.8 H Neut % (Auto) 91.4 H Lymph % (Auto) 5.7 L Foster % (Auto) 2.0 Eos % (Auto) 0.0 Baso % (Auto) 0.1 Lymph # (Auto) 1.3 Foster # (Auto) 0.4 Eos # (Auto) 0.0 Baso # (Auto) 0.0 Abs Immat Gran (auto) 0.18 H Absolute Neuts (auto) 20.1 H Absolute Nucleated RBC 0.000 Nucleated RBC % (auto) 0.0 Smear Tech's Comments VERIFIED ESR PT 58.5 H INR 5.0 H* D APTT 64.2 H* D Anion Gap 16 Estim Creat Clear Calc 16.6 Estimated GFR 17 Random Glucose 105 Lactic Acid Calcium 7.9 L Magnesium 1.8 Total Bilirubin 0.7 Direct Bilirubin 0.3 AST 23 D ALT 13 Alkaline Phosphatase 97 D C-Reactive Protein 27.25 H B-Natriuretic Peptide Total Protein 8.1 H Albumin 2.7 L Procalcitonin COVID-19 ([facility]) COVID-19 Clin Com 09/13/21 09/13/21 09/13/21 13:51 13:51 13:51 MCV MCH MCHC RDW Plt Count MPV Immature Gran % (Auto) Neut % (Auto) Lymph % (Auto) Foster % (Auto) Eos % (Auto) Baso % (Auto) Lymph # (Auto) Foster # (Auto) Eos # (Auto) Baso # (Auto) Abs Immat Gran (auto) Absolute Neuts (auto) Absolute Nucleated RBC Nucleated RBC % (auto) Smear Tech's Comments ESR PT INR APTT Anion Gap Estim Creat Clear Calc Estimated GFR Random Glucose Lactic Acid 1.7 Calcium Magnesium Total Bilirubin Direct Bilirubin AST ALT Alkaline Phosphatase C-Reactive Protein B-Natriuretic Peptide 302 H Total Protein Albumin Procalcitonin COVID-19 (DAMARIS) Negative COVID-19 Clin Com See Note 09/13/21 09/13/21 13:51 13:51 MCV MCH MCHC RDW Plt Count MPV Immature Gran % (Auto) Neut % (Auto) Lymph % (Auto) Foster % (Auto) Eos % (Auto) Baso % (Auto) Lymph # (Auto) Foster # (Auto) Eos # (Auto) Baso # (Auto) Abs Immat Gran (auto) Absolute Neuts (auto) Absolute Nucleated RBC Nucleated RBC % (auto) Smear Tech's Comments ESR 95 H PT INR APTT Anion Gap Estim Creat Clear Calc Estimated GFR Random Glucose Lactic Acid Calcium Magnesium Total Bilirubin Direct Bilirubin AST ALT Alkaline Phosphatase C-Reactive Protein B-Natriuretic Peptide Total Protein Albumin Procalcitonin 4.18 COVID-19 ([facility]IS) COVID-19 Clin Com Imaging Radiologist's Impressions: Impressions Chest X-Ray 09/13/21 13:05 IMPRESSION: Enlarged cardiac silhouette and question pulmonary venous redistribution. Venous Duplex 09/13/21 15:02 IMPRESSION: No DVT demonstrated in bilateral lower extremity. Assessment and Plan (1) JEN (acute kidney injury): Status: Acute Plan 81F presente with sob, erythema of legs, found to have JEN severe sepsis due to left lower extremity cellulitis in setting of lymphedema no bolus given: negative lactate, hypotension chronic (on midodrine), not due to sepsis iv vanc follow up cultures acute on chronic diastolic chf IV lasix monitor bmp JEN presumed cardiorenal, diurese, monitor chronic atrial fibrillation with supratherapeutic inr continue cardizem amio restart coumadin when inr<3 no active bleed COPD with pulmoanry htn breo albuterol prn singulair obesity weight loss hypothyroid synthroid full code patient has severe sepsis, jen, and chf requiring close monitoring and multiple IV medications, she is high risk for decompensation and is likely to require atleast 2 midnights in hospital Quality Stroke Does the patient have a stroke diagnosis?: No VTE Prior VTE?: No VTE Risk Level:: Medical - moderate - high VTE Device Contraindication: Treatment Not Indicated VTE Drug Contraindication: N/A - Med Ordered
[2021-09-13] MEDS: vancomycin HCL 1,250 MG in 0.9 % Sodium Chloride 250 ML 166.67 MG IV (17:39)
--- NOTE | 2021-09-13 17:40 | PC.NURSE ---
iv antibiotics started per order
--- NOTE | 2021-09-13 19:03 | PC.NURSE ---
pt assisted to bedpan, vss, education and training manager - afib, pt remains hypotensive, denies pain, increased coughing w movement.
[2021-09-13 19:14] LABS: Appearance Urine CLEAR; Color Urine YELLOW; Glucose Urine UA NEG (NEG); Leukocyte Esterase Urine NEG (NEG); Nitrite Urine NEG (NEG); PH 5.5 (5.0-8.0); UACC Culture Trigger NO; Urine Blood 3+ (NEG); Urine Ketones NEG (NEG); Urine Protein NEG (NEG-TRACE)
[2021-09-13 19:45] LABS: Amorphous Sediment Urine TRACE /LPF; Bacteria Urine TRACE /LPF; Mucus Urine TRACE /LPF; Squamous Epithelial Cell Urine 2+ /LPF; WBC Urine 0-2 /HPF (0-4)
[2021-09-13] MEDS: Furosemide 40 MG/4 ML VIAL 60 MG IVPUSH (19:57)
--- NOTE | 2021-09-13 19:59 | PHA.PROG ---
Admission Date/Time: September 13, 2021 16:49 Indication: Weight in k.368 kg Adjusted body weight in K.2 kg [place] body weight in K.4 kg Obesity Dosing Indication % IBW: Serum Creatinine - Last 168 Hours 09/13/21 13:51 Creatinine 2.73 H Estimated CrCl and GFR - Last 168 Hours 09/13/21 13:51 Estim Creat Clear Calc 16.6 Estimated GFR 17 Vancomycin Loading Dose: 1250 mg x 1 Current Vancomycin Dosing Regimen: 750 mg q48h Vancomycin Monitoring using AUC goal of 400 - 600 range with trough as surrogate marker: predicted AUC 484 Date and Time for next Vancomycin Level to be drawn: 09/14/21 @1600 Pharmacist Comments on Vancomycin Plan: Pt in JEN , 1250 mg x 1 dose given and check daily levels. Dose based on level. Weight also verified with ADITYA Montero and similar to a previous admission back in Jul 2021. Vancomycin dosing will take advantage of [employer] as a clinical decision support tool that uses Bayesian modeling to calculate individual patient's pharmacokinetic parameters and forecast the patient's drug concentration time course with the target goal AUC 24 range of 400 - 600 mg/L/hr.
--- NOTE | 2021-09-13 21:58 | MHC.CM.PN ---
CM met with admitted patient with bed assignment pending with medical records library professor, as pt is Hebrew speaking. IMM reviewed and signed 09/13/2021@0190. Given copy and one to medical records. HCP on file. HCP/son Nicko Roberts ([phone]). [facility]. Fully vaccinated with Pfizer, no booster. Pt states she has [facility] services. Son, Janusz Roberts is her MATERIAL CONTROL ANALYST, with 28 hours/wk. Pt uses a wheelchair and shower chair. Pt sleeps in a recliner at home. D/C plan is home with existing services. Pt will need chair van at discharge. CM to follow for d/c needs.
[2021-09-13] MEDS: Midodrine HCl 5 MG TABLET PO (22:05)
[2021-09-13] MEDS: Calcium + Vitamin D 250 MG TABLET PO (22:05)
[2021-09-13] MEDS: Montelukast Sodium 10 MG TABLET PO (22:05)
[2021-09-13] MEDS: dilTIAZem HCL CD 120 MG CAP.ER.DEG PO (22:06)
--- NOTE | 2021-09-13 22:53 | PC.NURSE ---
This rn took over patient's care at 1900, patient is alert, oriented albanian speaking. Denies pain or discomfort at this time, complains of cough and some sob, l/s diminished. Bilateral lower extremity edema, left greater than right with some redness and warmth. Patient assisted on bedpan, voided 300 yellow urine. Medications administered per emar, vitals stable.
[2021-09-13] MEDS: guaiFENesin DM 100/10/5 ML 5 ML SYRUP PO (23:12)
--- NOTE | 2021-09-13 23:18 | PC.NURSE ---
Patient to be transferred to overflow ed, report given to overflow ed RNJanet.
[2021-09-14] MEDS: 0.9 % Sodium Chloride Flush 3 ML SYRINGE IVFLUSH ×3 (00:10→17:13)
[2021-09-14 04:03] VITALS: BP 90/54; PULSE 85; RESP 19; O2SAT 98
[2021-09-14] MEDS: Levothyroxine Sodium 50 MCG TABLET PO (06:10)
[2021-09-14] MEDS: Omeprazole 20 MG CAPSULE.DR PO (06:10)
--- NOTE | 2021-09-14 06:48 | PC.NURSE ---
TRANSFERRED FROM MAIN ER TO OVERFLOW BED 3..ALERT..ORIENTED X3...RESPIRATIONS EASY AT REST..MILD SANCHEZ..LOWER LEGS EDEMATOUS AND REDDENED..O2 3 L/M...DENIES PAIN...SPENT NIGHT IN RECLINER PER REQUEST...OOB 1 ASSIST TO BEDSIDE COMMODE X2...CHRONIC ATRIAL FIB..DENIES/OFFERS NO COMPLAINTS
[2021-09-14 07:14] LABS: Hematocrit 30.6 % (37.0-47.0); Hemoglobin 9.4 g/dl (12.0-16.0); Red Blood Count 3.34 X10*6/uL (4.20-5.50)
[2021-09-14 07:15] LABS: Mean Corpuscular HGB Conc 30.7 g/dl (31.0-35.0); Mean Corpuscular Hemoglobin 28.1 pg (27.0-33.0); Mean Corpuscular Volume 91.6 fL (80.0-98.0); PLT CLUMP 1; Red Cell Distribution Width 15.8 % (11.0-16.0)
[2021-09-14 07:18] LABS: Prothrombin Time 47.4 SEC (9.9-13.0)
[2021-09-14 07:36] LABS: Anion Gap 14 (12-20); Blood Urea Nitrogen 40 mg/dL (9-16); Calcium 7.7 mg/dL (8.4-10.2); Carbon Dioxide 27 mmol/L (22-29); Chloride 99 mmol/L (96-108); Creatinine Clr Calc Pharmacy 17.7; Estimated Glomerular Filt Rate 18; Glucose Fasting 72 mg/dL (60-99); Potassium 3.9 mmol/L (3.3-5.1); Sodium 136 mmol/L (135-145)
[2021-09-14] MEDS: dilTIAZem HCL CD 120 MG CAP.ER.DEG PO ×2 (08:17→20:29)
[2021-09-14] MEDS: Calcium + Vitamin D 250 MG TABLET PO ×2 (08:17→20:29)
[2021-09-14] MEDS: Amiodarone HCL 200 MG TABLET PO (08:17)
[2021-09-14] MEDS: Loratadine 10 MG TABLET PO (08:17)
[2021-09-14] MEDS: Cholecalciferol (Vitamin D3) 25 MCG TABLET 50 MCG PO (08:17)
[2021-09-14 08:18] LABS: Platelet Count 101 X10*3/uL (160-400)
[2021-09-14] MEDS: Furosemide 40 MG/4 ML VIAL 60 MG IVPUSH ×2 (08:18→17:13)
[2021-09-14] MEDS: Ferrous Sulfate 324 MG TABLET.DR PO (08:18)
[2021-09-14 08:19] LABS: White Blood Count 13.9 X10*3/uL (4.8-10.8)
[2021-09-14] MEDS: Fluticasone/Vilanterol 100/25 BLST.W.DEV 1 PUFF INHALE (09:29)
[2021-09-14 09:30] VITALS: PULSE 93; RESP 20; O2SAT 96
[2021-09-14] MEDS: Midodrine HCl 5 MG TABLET PO ×3 (10:43→20:29)
--- NOTE | 2021-09-14 11:01 | HO.PM.IMPN ---
Subjective Subjective Date of Service: 09/14/21 Interval History: cc: sob interval history: a bit better today, still sob Cardiovascular Cardiovascular: Reports no additional cardiovascular complaints Respiratory Respiratory: Reports no additional respiratory complaints Physical Exam Vital Signs: Vital Signs: Last Vital Signs Temp 98.3 F 09/13/21 14:00 Pulse 93 09/14/21 09:30 Resp 20 09/14/21 09:30 BP 90/54 L 09/14/21 04:03 Pulse Ox 98 09/14/21 04:03 BMI result Body Mass Index 32.9 General: AO X 3, no acute distress Resp: diminished bilateral, no accessory muscles used CVS: S1,S2,RRR, 3+ bilateral edema, improved erythema GI: soft, non tender, non distended Neuro: motor grossly intact, alert Psych: appropriate affect, appropriate insight Objective Data Active Medications Acetaminophen (Acetaminophen 325 Mg Tablet) 650 mg PO Q6H PRN PRN Reason: Pain, Mild (Pain Scale 1-3) Albuterol Sulfate (Albuterol Sulfate (0.083%) 2.5 Mg/3 Ml Vial.Neb) 2.5 mg INHALE Q4H PRN PRN Reason: Shortness Of Breath Amiodarone HCl (Amiodarone Hcl 200 Mg Tablet) 200 mg PO DAILY [facility] Last Admin: 09/14/21 08:17 Dose: 200 mg Documented by: WILLIAM Calcium Carbonate/Cholecalciferol (Calcium + Vitamin D 250 Mg Tablet) 250 mg PO BID [facility] Last Admin: 09/14/21 08:17 Dose: 250 mg Documented by: WILLIAM Diltiazem HCl (Diltiazem Hcl Cd 120 Mg Cap.Er.Deg) 120 mg PO BID [facility]; Protocol Last Admin: 09/14/21 08:17 Dose: 120 mg Documented by: WILLIAM Ferrous Sulfate (Ferrous Sulfate 324 Mg Tablet.Dr) 324 mg PO DAILY [facility] Last Admin: 09/14/21 08:18 Dose: 324 mg Documented by: WILLIAM Fluticasone/Vilanterol (Fluticasone/Vilanterol 100/25 Blst.W.Dev) 1 puff INHALE RDAILY [facility] Last Admin: 09/14/21 09:29 Dose: 1 puff Documented by: HAYLEY Furosemide (Furosemide 40 Mg/4 Ml Vial) 60 mg IVPUSH BID@0900,1800 [facility]; Protocol Last Admin: 09/14/21 08:18 Dose: 60 mg Documented by: WILLIAM Guaifenesin/Dextromethorphan (Guaifenesin Dm 100/10/5 Ml 5 Ml Syrup) 5 ml PO Q4H PRN PRN Reason: cough Last Admin: 09/13/21 23:12 Dose: 5 ml Documented by: MATTHEW Vancomycin HCl 750 mg/ Sodium (Chloride) 265 mls @ 265 mls/hr IV Q48H [facility] Levothyroxine Sodium (Levothyroxine Sodium 50 Mcg Tablet) 50 mcg PO DAILY@0600 [facility] Last Admin: 09/14/21 06:10 Dose: 50 mcg Documented by: JENN Loratadine (Loratadine 10 Mg Tablet) 10 mg PO DAILY [facility] Last Admin: 09/14/21 08:17 Dose: 10 mg Documented by: WILLIAM Midodrine (Midodrine Hcl 5 Mg Tablet) 5 mg PO TID [facility] Last Admin: 09/14/21 10:43 Dose: 5 mg Documented by: WILLIAM Montelukast Sodium (Montelukast Sodium 10 Mg Tablet) 10 mg PO BEDTIME [facility] Last Admin: 09/13/21 22:05 Dose: 10 mg Documented by: MATTHEW Mupirocin (Mupirocin 1 Gm Oint...G.) 1 gm TOPICAL BID [facility] Last Admin: 09/13/21 22:09 Dose: Not Given Documented by: MATTHEW Non-Admin Reason: Med Not Available Omeprazole (Omeprazole 20 Mg Misha.) 20 mg PO DAILY@0630 [facility] Last Admin: 09/14/21 06:10 Dose: 20 mg Documented by: JENN Pharmacy Consult (Consult Rx Perform Med Rec) 1 each MISCELLANE ONCE PRN PRN Reason: Consult order Pharmacy Consult (Consult Rx Vancomycin Dosing) 1 each MISCELLANE DAILY PRN PRN Reason: Consult order Sodium Chloride (0.9 % Sodium Chloride Flush 3 Ml Syringe) 3 ml IVFLUSH QSHIFT [facility] Last Admin: 09/14/21 08:22 Dose: 3 ml Documented by: WILLIAM Tiotropium [place] (Tiotropium [place] 18 Mcg Cap.W.Dev) 1 puff INHALE RDAILY [facility] Last Admin: 09/14/21 09:29 Dose: 1 puff Documented by: HAYLEY Vitamin D (Cholecalciferol (Vitamin D3) 25 Mcg Tablet) 50 mcg PO DAILY [facility] Last Admin: 09/14/21 08:17 Dose: 50 mcg Documented by: WILLIAM Labs CBC & Chem 7: 09/14/21 06:59 09/14/21 06:59 Labs: Laboratory Results - last 24 hr 09/13/21 09/13/21 09/13/21 13:51 13:51 13:51 MCV 91.6 MCH 28.5 MCHC 31.1 RDW 16.1 H Plt Count 116 L D MPV 11.6 Immature Gran % (Auto) 0.8 H Neut % (Auto) 91.4 H Lymph % (Auto) 5.7 L Terry % (Auto) 2.0 Eos % (Auto) 0.0 Baso % (Auto) 0.1 Lymph # (Auto) 1.3 Terry # (Auto) 0.4 Eos # (Auto) 0.0 Baso # (Auto) 0.0 Abs Immat Gran (auto) 0.18 H Absolute Neuts (auto) 20.1 H Absolute Nucleated RBC 0.000 Nucleated RBC % (auto) 0.0 Smear Tech's Comments VERIFIED ESR PT 58.5 H INR 5.0 H* D APTT 64.2 H* D Anion Gap 16 Estim Creat Clear Calc 16.6 Estimated GFR 17 Random Glucose 105 Fasting Glucose Lactic Acid Calcium 7.9 L Magnesium 1.8 Total Bilirubin 0.7 Direct Bilirubin 0.3 AST 23 D ALT 13 Alkaline Phosphatase 97 D C-Reactive Protein 27.25 H B-Natriuretic Peptide Total Protein 8.1 H Albumin 2.7 L Procalcitonin Urine Color Urine Appearance Urine pH Ur Specific [place] Urine Protein Urine Glucose (UA) Urine Ketones Urine Blood Urine Nitrite Ur Leukocyte Esterase Urine RBC Urine WBC Ur Squamous Epith Cells Amorphous Sediment Urine Bacteria Urine Mucus COVID-19 ([facility]) COVID-19 Clin Com 09/13/21 09/13/21 09/13/21 13:51 13:51 13:51 MCV MCH MCHC RDW Plt Count MPV Immature Gran % (Auto) Neut % (Auto) Lymph % (Auto) Terry % (Auto) Eos % (Auto) Baso % (Auto) Lymph # (Auto) Terry # (Auto) Eos # (Auto) Baso # (Auto) Abs Immat Gran (auto) Absolute Neuts (auto) Absolute Nucleated RBC Nucleated RBC % (auto) Smear Tech's Comments ESR PT INR APTT Anion Gap Estim Creat Clear Calc Estimated GFR Random Glucose Fasting Glucose Lactic Acid 1.7 Calcium Magnesium Total Bilirubin Direct Bilirubin AST ALT Alkaline Phosphatase C-Reactive Protein B-Natriuretic Peptide 302 H Total Protein Albumin Procalcitonin Urine Color Urine Appearance Urine pH Ur Specific [place] Urine Protein Urine Glucose (UA) Urine Ketones Urine Blood Urine Nitrite Ur Leukocyte Esterase Urine RBC Urine WBC Ur Squamous Epith Cells Amorphous Sediment Urine Bacteria Urine Mucus COVID-19 ([facility]IS) Negative COVID-19 Clin Com See Note 09/13/21 09/13/21 09/13/21 13:51 13:51 19:06 MCV MCH MCHC RDW Plt Count MPV Immature Gran % (Auto) Neut % (Auto) Lymph % (Auto) Terry % (Auto) Eos % (Auto) Baso % (Auto) Lymph # (Auto) Terry # (Auto) Eos # (Auto) Baso # (Auto) Abs Immat Gran (auto) Absolute Neuts (auto) Absolute Nucleated RBC Nucleated RBC % (auto) Smear Tech's Comments ESR 95 H PT INR APTT Anion Gap Estim Creat Clear Calc Estimated GFR Random Glucose Fasting Glucose Lactic Acid Calcium Magnesium Total Bilirubin Direct Bilirubin AST ALT Alkaline Phosphatase C-Reactive Protein B-Natriuretic Peptide Total Protein Albumin Procalcitonin 4.18 Urine Color YELLOW Urine Appearance CLEAR Urine pH 5.5 Ur Specific [place] 1.010 Urine Protein NEG Urine Glucose (UA) NEG Urine Ketones NEG Urine Blood 3+ H Urine Nitrite NEG Ur Leukocyte Esterase NEG Urine RBC 10-14 H Urine WBC 0-2 Ur Squamous Epith Cells 2+ Amorphous Sediment TRACE Urine Bacteria TRACE Urine Mucus TRACE COVID-19 ([facility]) COVID-19 Clin Com 09/14/21 09/14/21 09/14/21 06:59 06:59 06:59 MCV 91.6 MCH 28.1 MCHC 30.7 L RDW 15.8 Plt Count 101 L MPV Not Reportable Immature Gran % (Auto) Neut % (Auto) Lymph % (Auto) Terry % (Auto) Eos % (Auto) Baso % (Auto) Lymph # (Auto) Terry # (Auto) Eos # (Auto) Baso # (Auto) Abs Immat Gran (auto) Absolute Neuts (auto) Absolute Nucleated RBC 0.000 Nucleated RBC % (auto) 0.0 Smear Tech's Comments ESR PT 47.4 H INR 4.0 H APTT Anion Gap 14 Estim Creat Clear Calc 17.7 Estimated GFR 18 Random Glucose Fasting Glucose 72 Lactic Acid Calcium 7.7 L Magnesium Total Bilirubin Direct Bilirubin AST ALT Alkaline Phosphatase C-Reactive Protein B-Natriuretic Peptide Total Protein Albumin Procalcitonin Urine Color Urine Appearance Urine pH Ur Specific [place] Urine Protein Urine Glucose (UA) Urine Ketones Urine Blood Urine Nitrite Ur Leukocyte Esterase Urine RBC Urine WBC Ur Squamous Epith Cells Amorphous Sediment Urine Bacteria Urine Mucus COVID-19 ([facility]) COVID-19 Clin Com Assessment and Plan (1) JEN (acute kidney injury): Status: Acute Plan 81F presente with sob, erythema of legs, found to have JEN severe sepsis due to left lower extremity cellulitis in setting of lymphedema continue iv vanc follow up cultures, trough, bmp acute on chronic diastolic chf continue IV lasix monitor bmp JEN presumed cardiorenal, has slightly improved with dieresis, continue to monitor chronic atrial fibrillation with supratherapeutic inr continue cardizem amiodarone restart coumadin when inr<3, 4 today no active bleed COPD with pulmoanry htn breo albuterol prn singulair obesity weight loss hypothyroid synthroid full code reason for continued hospitalization: patient has severe sepsis, jen, and chf requiring close monitoring and multiple IV medications, she is high risk for decompensation Quality Stroke Does the patient have a stroke diagnosis?: No VTE Prior VTE?: No VTE Risk Level:: Medical - moderate - high VTE Device Contraindication: Treatment Not Indicated VTE Drug Contraindication: N/A - Med Ordered
--- NOTE | 2021-09-14 11:13 | PC.NURSE ---
PT A&O, OOB TO CHAIR. DENIES PAIN. LUNGS FINE CRACKLES TO BASES. O2 REMOVED BY DR AKINS. LABS REVIEWED. BILATERAL LOWER LEG FIRM AND EDEMATOUS CRACKED LEATHERY SKIN.
[2021-09-14 16:37] LABS: Vancomycin Random 15.9 mcg/mL (15-20)
--- NOTE | 2021-09-14 17:01 | HE.PHANOTE ---
Vancomycin Dosing Based on trough of 15.9 trough ordered for 09/15 @ 1600 before next dose. [facility] expecting 750q 48
[2021-09-14 17:16] VITALS: BP 100/60; PULSE 76; RESP 18; O2SAT 97
[2021-09-14] MEDS: Montelukast Sodium 10 MG TABLET PO (20:29)
[2021-09-14 20:50] VITALS: BP 103/64; PULSE 85; RESP 16; TEMP 36.6; O2SAT 96
[2021-09-14 21:23] VITALS: BP 125/67; PULSE 87; RESP 18; TEMP 37.2; O2SAT 98
[2021-09-14] MEDS: guaiFENesin DM 100/10/5 ML 5 ML SYRUP PO (22:00)
[2021-09-15] VITALS (8 sets, daily range): BP systolic 92–147; BP diastolic 54–71; PULSE 61–98; RESP 18–20; TEMP 36.3–37.1; O2SAT 93–98
[2021-09-15] MEDS: 0.9 % Sodium Chloride Flush 3 ML SYRINGE IVFLUSH ×4 (00:51→20:24)
[2021-09-15] MEDS: Levothyroxine Sodium 50 MCG TABLET PO (06:21)
[2021-09-15] MEDS: Omeprazole 20 MG CAPSULE.DR PO (06:21)
[2021-09-15 06:46] LABS: INTERNATIONAL NORM RATIO 3.3 (0.9-1.1)
[2021-09-15 06:52] LABS: Anion Gap 13 (12-20); Blood Urea Nitrogen 41 mg/dL (9-16); Calcium 8.4 mg/dL (8.4-10.2); Carbon Dioxide 29 mmol/L (22-29); Chloride 99 mmol/L (96-108); Creatinine Clr Calc Pharmacy 19.6; Estimated Glomerular Filt Rate 20; Glucose Fasting 81 mg/dL (60-99); Sodium 137 mmol/L (135-145)
[2021-09-15 06:55] LABS: Hematocrit 31.1 % (37.0-47.0); Hemoglobin 9.5 g/dl (12.0-16.0); Mean Corpuscular HGB Conc 30.5 g/dl (31.0-35.0); Mean Corpuscular Volume 91.7 fL (80.0-98.0); PLT CLUMP 1; Red Blood Count 3.39 X10*6/uL (4.20-5.50); Red Cell Distribution Width 15.7 % (11.0-16.0)
[2021-09-15 07:14] LABS: White Blood Count 8.7 X10*3/uL (4.8-10.8)
[2021-09-15] MEDS: Fluticasone/Vilanterol 100/25 BLST.W.DEV 1 PUFF INHALE (07:25)
--- NOTE | 2021-09-15 09:21 | MHC.CM.PN ---
Female 81 DX SOB LE Edema DP DP resume services with [facility] and [facility]. Discharge is not anticipated today. Patient continues to require IV medications. DX Sepsis HF with JEN. @ discharge, Pt will transport via [facility].
--- NOTE | 2021-09-15 09:56 | HE.PHANOTE ---
Vancomycin Dosing Addendum Random Level today at 09/15/21 @1600. Current regimen 750 mg q48h. continue to dose based on level.
[2021-09-15] MEDS: Midodrine HCl 5 MG TABLET PO ×3 (09:57→20:24)
[2021-09-15] MEDS: dilTIAZem HCL CD 120 MG CAP.ER.DEG PO ×2 (09:57→20:24)
[2021-09-15] MEDS: Amiodarone HCL 200 MG TABLET PO (09:57)
[2021-09-15] MEDS: Loratadine 10 MG TABLET PO (09:57)
[2021-09-15] MEDS: Ferrous Sulfate 324 MG TABLET.DR PO (09:57)
[2021-09-15] MEDS: Cholecalciferol (Vitamin D3) 25 MCG TABLET 50 MCG PO (09:57)
[2021-09-15] MEDS: Calcium + Vitamin D 250 MG TABLET PO ×2 (09:58→20:24)
[2021-09-15] MEDS: Furosemide 40 MG/4 ML VIAL 60 MG IVPUSH ×2 (09:58→18:47)
--- NOTE | 2021-09-15 14:48 | P.PNIM_ITS ---
Subjective Subjective Date of Service: 09/15/21 Interval History: cc: sob interval history: edema improved and lower extremities with improvement of shortness of breath Review of Systems Constitutional: Denies fever, denies Chills Eyes: denies blurry vision ENT: denies sore throat CVS: denies chest pain Respiratory: dyspnea GI: no abdominal pain Skin: erythema Neuro: denies specific motor weakness Psych: denies suicidal ideation Allergy: denies hives Physical Exam Vital Signs: Vital Signs: Last Vital Signs Temp 97.4 F 09/15/21 11:22 Pulse 79 09/15/21 11:22 Resp 20 09/15/21 11:22 BP 115/71 09/15/21 11:22 Pulse Ox 93 09/15/21 11:22 BMI result Body Mass Index 32.9 Const: Other: Constitutional : Alert, oriented, not in distress Neck : Normal inspection, Supple Cardiovascular : RRR, S1 S2, +1 bilateral lower extremity edema Respiratory : for bilateral air entry, no crackles, wheezes or rhonchi Gastrointestinal: soft, lax, Normal bowel sounds, Non tender Skin : Warm, Dry, stasis dermatitis of lower extremities so she did with mild erythema and left lower extremity, no drainage Neurological : Alert & oriented x3, No focal deficit Objective Data Active Medications Acetaminophen (Acetaminophen 325 Mg Tablet) 650 mg PO Q6H PRN PRN Reason: Pain, Mild (Pain Scale 1-3) Albuterol Sulfate (Albuterol Sulfate (0.083%) 2.5 Mg/3 Ml Vial.Neb) 2.5 mg INHALE Q4H PRN PRN Reason: Shortness Of Breath Amiodarone HCl (Amiodarone Hcl 200 Mg Tablet) 200 mg PO DAILY [facility] Last Admin: 09/15/21 09:57 Dose: 200 mg Documented by: BRAYAN Calcium Carbonate/Cholecalciferol (Calcium + Vitamin D 250 Mg Tablet) 250 mg PO BID [facility] Last Admin: 09/15/21 09:58 Dose: 250 mg Documented by: BRAYAN Diltiazem HCl (Diltiazem Hcl Cd 120 Mg Cap.Er.Deg) 120 mg PO BID [facility]; Protocol Last Admin: 09/15/21 09:57 Dose: 120 mg Documented by: BRAYAN Ferrous Sulfate (Ferrous Sulfate 324 Mg Tablet.Dr) 324 mg PO DAILY [facility] Last Admin: 09/15/21 09:57 Dose: 324 mg Documented by: BRAYAN Fluticasone/Vilanterol (Fluticasone/Vilanterol 100/25 Blst.W.Dev) 1 puff INHALE RDAILY [facility] Last Admin: 09/15/21 07:25 Dose: 1 puff Documented by: INESSA Furosemide (Furosemide 40 Mg/4 Ml Vial) 60 mg IVPUSH BID@0900,1800 [facility]; Protocol Last Admin: 09/15/21 09:58 Dose: 60 mg Documented by: BRAYAN Guaifenesin/Dextromethorphan (Guaifenesin Dm 100/10/5 Ml 5 Ml Syrup) 5 ml PO Q4H PRN PRN Reason: cough Last Admin: 09/14/21 22:00 Dose: 5 ml Documented by: MATILDE Vancomycin HCl 750 mg/ Sodium (Chloride) 265 mls @ 265 mls/hr IV Q48H [facility] Levothyroxine Sodium (Levothyroxine Sodium 50 Mcg Tablet) 50 mcg PO DAILY@0600 [facility] Last Admin: 09/15/21 06:21 Dose: 50 mcg Documented by: ELSI Loratadine (Loratadine 10 Mg Tablet) 10 mg PO DAILY [facility] Last Admin: 09/15/21 09:57 Dose: 10 mg Documented by: BRAYAN Midodrine (Midodrine Hcl 5 Mg Tablet) 5 mg PO TID [facility] Last Admin: 09/15/21 09:57 Dose: 5 mg Documented by: BRAYAN Montelukast Sodium (Montelukast Sodium 10 Mg Tablet) 10 mg PO BEDTIME [facility] Last Admin: 09/14/21 20:29 Dose: 10 mg Documented by: YANY Mupirocin (Mupirocin 1 Gm Oint...G.) 1 gm TOPICAL BID [facility] Last Admin: 09/15/21 10:00 Dose: 1 gm Documented by: BRAYAN Omeprazole (Omeprazole 20 Mg Capsule.Dr) 20 mg PO DAILY@0630 [facility] Last Admin: 09/15/21 06:21 Dose: 20 mg Documented by: ELSI Pharmacy Consult (Consult Rx Perform Med Rec) 1 each MISCELLANE ONCE PRN PRN Reason: Consult order Pharmacy Consult (Consult Rx Vancomycin Dosing) 1 each MISCELLANE DAILY PRN PRN Reason: Consult order Sodium Chloride (0.9 % Sodium Chloride Flush 3 Ml Syringe) 3 ml IVFLUSH QSHIFT [facility] Last Admin: 09/15/21 09:57 Dose: 3 ml Documented by: BRAYAN Tiotropium Dermott (Tiotropium Dermott 18 Mcg Cap.W.Dev) 1 puff INHALE RDAILY [facility] Last Admin: 09/15/21 07:25 Dose: 1 puff Documented by: INESSA Vitamin D (Cholecalciferol (Vitamin D3) 25 Mcg Tablet) 50 mcg PO DAILY [facility] Last Admin: 09/15/21 09:57 Dose: 50 mcg Documented by: BRAYAN Labs CBC & Chem 7: 09/15/21 06:09 09/15/21 06:09 Labs: Laboratory Results - last 24 hr 09/14/21 09/15/21 09/15/21 15:45 06:09 06:09 MCV 91.7 MCH 28.0 MCHC 30.5 L RDW 15.7 Plt Count TNP MPV Not Reportable Absolute Nucleated RBC 0.000 Nucleated RBC % (auto) 0.0 PT 39.0 H INR 3.3 H Anion Gap Estim Creat Clear Calc Estimated GFR Fasting Glucose Calcium Random Vancomycin 15.9 09/15/21 06:09 MCV MCH MCHC RDW Plt Count MPV Absolute Nucleated RBC Nucleated RBC % (auto) PT INR Anion Gap 13 Estim Creat Clear Calc 19.6 Estimated GFR 20 Fasting Glucose 81 Calcium 8.4 D Random Vancomycin Microbiology Microbiology Results: Microbiology 09/13/21 13:53 Blood Culture - Preliminary Blood - Venous No growth after 24 hours. 09/13/21 13:51 Blood Culture - Preliminary Blood - Venous No growth after 24 hours. Assessment and Plan (1) ALKA (acute kidney injury): Status: Acute (2) Cellulitis of left leg: Status: Acute (3) Sepsis: Status: Acute Plan 81F presente with sob, erythema of legs, found to have ALKA severe sepsis due to left lower extremity cellulitis in setting of lymphedema erythema improving continue iv vanc follow up cultures, trough, bmp To do Parminder wrap acute on chronic diastolic chf Improving continue IV lasix monitor bmp ALKA presumed cardiorenal slightly improved with dieresis, continue to monitor Nephrology input appreciated chronic atrial fibrillation with supratherapeutic inr continue cardizem amiodarone restart coumadin when inr<3, 3.4 today no active bleed COPD with pulmoanry htn breo albuterol prn singulair obesity weight loss hypothyroid synthroid full code reason for continued hospitalization: patient has severe sepsis, alka, and chf requiring close monitoring and multiple IV medications, she is high risk for decompensation Quality Stroke Does the patient have a stroke diagnosis?: No VTE Prior VTE?: No VTE Risk Level:: Medical - moderate - high VTE Device Contraindication: Treatment Not Indicated VTE Drug Contraindication: N/A - Med Ordered
[2021-09-15 16:50] LABS: Vancomycin Random 13.2 mcg/mL (15-20)
[2021-09-15] MEDS: vancomycin HCL 750 MG in 0.9 % Sodium Chloride 250 ML 265 MG IV (18:47)
[2021-09-15] MEDS: Montelukast Sodium 10 MG TABLET PO (20:24)
[2021-09-15] MEDS: guaiFENesin DM 100/10/5 ML 5 ML SYRUP PO (21:38)
[2021-09-16] VITALS (9 sets, daily range): BP systolic 97–128; BP diastolic 54–69; PULSE 77–96; RESP 14–20; TEMP 36.6–37.2; O2SAT 91–98
[2021-09-16] MEDS: Omeprazole 20 MG CAPSULE.DR PO (05:39)
[2021-09-16] MEDS: Levothyroxine Sodium 50 MCG TABLET PO (05:39)
[2021-09-16 07:00] LABS: INTERNATIONAL NORM RATIO 2.4 (0.9-1.1); Prothrombin Time 27.4 SEC (9.9-13.0)
[2021-09-16 07:27] LABS: B Type Natriuretic Peptide 313 pg/mL (<100)
[2021-09-16] MEDS: Fluticasone/Vilanterol 100/25 BLST.W.DEV 1 PUFF INHALE (07:33)
[2021-09-16 09:50] LABS: Anion Gap 12 (12-20); Blood Urea Nitrogen 40 mg/dL (9-16); Calcium 8.4 mg/dL (8.4-10.2); Carbon Dioxide 30 mmol/L (22-29); Chloride 99 mmol/L (96-108); Creatinine Clr Calc Pharmacy 21.9; Estimated Glomerular Filt Rate 23; Glucose Random 65 mg/dL (60-115); Potassium 4.1 mmol/L (3.3-5.1); Sodium 137 mmol/L (135-145)
[2021-09-16] MEDS: 0.9 % Sodium Chloride Flush 3 ML SYRINGE IVFLUSH ×3 (10:47→21:37)
[2021-09-16] MEDS: Cholecalciferol (Vitamin D3) 25 MCG TABLET 50 MCG PO (10:48)
[2021-09-16] MEDS: Amiodarone HCL 200 MG TABLET PO (10:48)
[2021-09-16] MEDS: dilTIAZem HCL CD 120 MG CAP.ER.DEG PO ×2 (10:48→21:10)
[2021-09-16] MEDS: Calcium + Vitamin D 250 MG TABLET PO ×2 (10:48→21:10)
[2021-09-16] MEDS: Midodrine HCl 5 MG TABLET PO ×3 (10:48→21:10)
[2021-09-16] MEDS: Loratadine 10 MG TABLET PO (10:48)
[2021-09-16] MEDS: Ferrous Sulfate 324 MG TABLET.DR PO (10:48)
[2021-09-16] MEDS: Furosemide 40 MG/4 ML VIAL 60 MG IVPUSH ×2 (10:49→18:13)
[2021-09-16] MEDS: Acetaminophen 325 MG TABLET 650 MG PO ×2 (11:03→21:11)
--- NOTE | 2021-09-16 12:41 | CONS_ITS ---
DATE OF SERVICE: 09/15/2021 REASON FOR CONSULTATION: I asked to see the patient to assist in evaluation and management of patient's acute kidney injury as reflected by BUN and creatinine today of 41 and 2.31, actually yesterday was 40 BUN and creatinine was 2.56, but on August 18, at the time of her last hospitalization, discharge creatinine is at 1.22. She does have repeated episodes of acute kidney injury on prior hospitalizations. HISTORY OF PRESENT ILLNESS: In summary, patient is an 81-year-old female who was readmitted to the hospital with increasing shortness of breath and leg swelling and concerns for cellulitis in her legs. Patient has had repetitive hospitalizations for decompensated congestive heart failure and cellulitis and episodes of acute kidney injury in the past. On her last hospitalization in July, she was treated with vancomycin and then switched over to doxycycline and given some IV diuretics and seemed to have improved at the time of discharge. She now presents again with increasing shortness of breath, leg swelling, and redness of her legs and concern for cellulitis. She is known to the cardiology service and has had cardiac echos, which showed evidence of diastolic dysfunction and some pulmonary hypertension and tricuspid valve issues. Presently, she is fairly comfortable. She is sitting in the chair with a lot of dependent edema. She denies any chest pain, and she is on oxygen. Her breathing is comfortable. PAST MEDICAL HISTORY: Notable for stage 3 chronic kidney disease, baseline creatinine of 1.2 with recurrent episodes of acute kidney injury, heart failure with preserved EF, consistent with diastolic dysfunction with some evidence of right heart failure, pulmonary hypertension, and tricuspid valve regurg. Asthma. Chronic lower extremity edema with recurrent episodes of cellulitis. Hypotension, maintained on midodrine. AFib. Chronic venous stasis disease of the legs. MEDICATIONS: On admission are listed as including diltiazem, Synthroid, midodrine, Prilosec, Coumadin, amiodarone, Lasix 60 mg a day. Current medications are on the AUG. ALLERGIES: SHE HAS ALLERGIES TO LISINOPRIL AND ZOCOR LISTED. SOCIAL HISTORY: She is a nonsmoker, nondrinker. Denies illicit drug use. Denies use of NSAIDs. FAMILY HISTORY: No kidney disease in the family. REVIEW OF SYSTEMS: As noted above. PHYSICAL EXAMINATION: VITAL SIGNS: Blood pressure 150/68 with a heart rate in the 60s, afebrile. HEENT: Head is atraumatic and normocephalic. NECK: Supple with JVD. LUNGS: Breath sounds diminished at the bases and some rhonchi. CARDIAC: Regular rate and rhythm with a systolic murmur. ABDOMEN: Soft, obese, and nontender. EXTREMITIES: Show 2+ dependent edema with some redness. LABORATORY DATA: Labs from today show sodium 137, potassium 4, chloride 99, bicarb 29, BUN 41, creatinine 2.3. As mentioned, her baseline creatinine is 1.2, but she has had repetitive episodes of acute kidney injury. Hemoglobin 9.5, hematocrit 31.1, white blood cell count 8.7, platelet count 101. Urine studies showed 3+ blood by dipstick, no protein. IMPRESSION: 1. Acute kidney injury on chronic kidney disease in a patient with heart failure, preserved ejection fraction. 2. Acute kidney injury. This is most consistent with cardiorenal syndrome related to renal hypoperfusion. She has significant right heart failure and probably has low cardiac output related to her right-sided heart dysfunction including pulmonary hypertension and tricuspid regurg. Management becomes challenging as she has 3rd space fluid and they are trying to get fluid off and yet she has probably compromised renal perfusion. In a subgroup of patients like this, when you diurese them, they actually get improved renal function due to renal decongestion. It is unclear whether she is going to behave that way with her low blood pressures. I think this is not so likely. 3. Stage 3 chronic kidney disease. This is partly due to repetitive episodes of acute kidney injury. 4. Lower extremity edema. This is multifactorial including chronic venous stasis disease. She has had multiple imaging studies of her legs to rule out deep venous thrombosis. 5. Heart failure with preserved ejection fraction with significant right heart dysfunction. SUGGESTIONS: At this time, include continue to track urine output and renal function. Avoid hypotensive episodes and this will limit her diuretics. Cardiology to see the patient and she may need further cardiac assessment to see if any can be done to improve cardiac output and flow to the kidneys. We will check urine studies and follow with the team. Avoid nephrotoxins. MD JESSI Nieto/ELVIRA / [phone]
--- NOTE | 2021-09-16 13:27 | PC.NURSE ---
Skin/Wound assessment completed today. Patient has lymphedema to bilateral legs with very dry skin and pain. This nurse did not seen any open areas or draining. Sween 24 moisturizer cream applied to bilateral legs.
--- NOTE | 2021-09-16 13:51 | HO.PM.IMPN ---
Subjective Subjective Date of Service: 09/16/21 Interval History: cc: sob interval history: Still having significant edema in lower extremities with improvement of shortness of breath Review of Systems Constitutional: Denies fever, denies Chills Eyes: denies blurry vision ENT: denies sore throat CVS: denies chest pain Respiratory: dyspnea GI: no abdominal pain Skin: erythema and pain Neuro: denies specific motor weakness Psych: denies suicidal ideation Allergy: denies hives Physical Exam Vital Signs: Vital Signs: Last Vital Signs Temp 98.2 F 09/16/21 11:44 Pulse 95 09/16/21 11:44 Resp 18 09/16/21 11:44 BP 115/63 09/16/21 11:44 Pulse Ox 92 09/16/21 11:44 BMI result Body Mass Index 32.9 Const: Other: Constitutional : Alert, oriented, not in distress Neck : Normal inspection, Supple Cardiovascular : RRR, S1 S2, +1 bilateral lower extremity edema Respiratory : for bilateral air entry, no crackles, wheezes or rhonchi Gastrointestinal: soft, lax, Normal bowel sounds, Non tender Skin : Warm, Dry, stasis dermatitis of lower extremities so she did with mild erythema and left lower extremity, no drainage Neurological : Alert & oriented x3, No focal deficit Objective Data Active Medications Acetaminophen (Acetaminophen 325 Mg Tablet) 650 mg PO Q6H PRN PRN Reason: Pain, Mild (Pain Scale 1-3) Last Admin: 09/16/21 11:03 Dose: 650 mg Documented by: MARGY Albuterol Sulfate (Albuterol Sulfate (0.083%) 2.5 Mg/3 Ml Vial.Neb) 2.5 mg INHALE Q4H PRN PRN Reason: Shortness Of Breath Amiodarone HCl (Amiodarone Hcl 200 Mg Tablet) 200 mg PO DAILY [facility]CLUDE 234 BEDS AT THE [facility] Last Admin: 09/16/21 10:48 Dose: 200 mg Documented by: MARGY Calcium Carbonate/Cholecalciferol (Calcium + Vitamin D 250 Mg Tablet) 250 mg PO BID [facility] 234 BEDS AT THE [facility] Last Admin: 09/16/21 10:48 Dose: 250 mg Documented by: MARGY Clotrimazole (Clotrimazole 1 % Cream 15 Gm Tube) 1 appl TOPICAL BID [facility]S INCLUDE 234 BEDS AT THE [facility]; Protocol Diltiazem HCl (Diltiazem Hcl Cd 120 Mg Cap.Er.Deg) 120 mg PO BID [facility]CLUDE 234 BEDS AT THE [facility]; Protocol Last Admin: 09/16/21 10:48 Dose: 120 mg Documented by: MARGY Ferrous Sulfate (Ferrous Sulfate 324 Mg Tablet.Dr) 324 mg PO DAILY [facility]S [facility]CLUDE 234 BEDS AT THE [facility] Last Admin: 09/16/21 10:48 Dose: 324 mg Documented by: MARGY Fluticasone/Vilanterol (Fluticasone/Vilanterol 100/25 Blst.W.Dev) 1 puff INHALE RDAILY [facility]CLUDE 234 BEDS AT THE [facility] Last Admin: 09/16/21 07:33 Dose: 1 puff Documented by: INESSA Furosemide (Furosemide 40 Mg/4 Ml Vial) 60 mg IVPUSH BID@0900,1800 [facility]S [facility] 234 BEDS AT THE [facility]; Protocol Last Admin: 09/16/21 10:49 Dose: 60 mg Documented by: MARGY Guaifenesin/Dextromethorphan (Guaifenesin Dm 100/10/5 Ml 5 Ml Syrup) 5 ml PO Q4H PRN PRN Reason: cough Last Admin: 09/15/21 21:38 Dose: 5 ml Documented by: GLORIA Vancomycin HCl 750 mg/ Sodium (Chloride) 265 mls @ 265 mls/hr IV Q48H [facility]S [facility]CLUDE 234 BEDS AT THE [facility] Last Infusion: 09/15/21 22:50 Dose: 0 mls/hr Documented by: GLORIA Lactic Acid (Ammonium Lactate 12 % Lotion 226 Gm Bottle) 1 appl TOPICAL BID [facility]S INCLUDE 234 BEDS AT THE [facility]; Protocol Levothyroxine Sodium (Levothyroxine Sodium 50 Mcg Tablet) 50 mcg PO DAILY@0600 [facility]S [facility]CLUDE 234 BEDS AT THE [facility] Last Admin: 09/16/21 05:39 Dose: 50 mcg Documented by: GLORIA Loratadine (Loratadine 10 Mg Tablet) 10 mg PO DAILY [facility]CLUDE 234 BEDS AT [facility] Last Admin: 09/16/21 10:48 Dose: 10 mg Documented by: MARGY Midodrine (Midodrine Hcl 5 Mg Tablet) 5 mg PO TID [facility]S [facility]CLUDE 234 BEDS AT [facility] Last Admin: 09/16/21 10:48 Dose: 5 mg Documented by: MARGY Montelukast Sodium (Montelukast Sodium 10 Mg Tablet) 10 mg PO BEDTIME [facility]S INCLUDE 234 BEDS AT [facility] Last Admin: 09/15/21 20:24 Dose: 10 mg Documented by: GLORIA Mupirocin (Mupirocin 1 Gm Oint...G.) 1 gm TOPICAL BID [facility]S INCLUDE 234 BEDS AT THE [facility] Last Admin: 09/16/21 11:07 Dose: Not Given Documented by: MARGY Non-Admin Reason: Med Not Available Omeprazole (Omeprazole 20 Mg Capsule.Dr) 20 mg PO DAILY@0630 [facility]S [facility]CLUDE 234 BEDS AT THE [facility] Last Admin: 09/16/21 05:39 Dose: 20 mg Documented by: GLORIA Pharmacy Consult (Consult Rx Perform Med Rec) 1 each MISCELLANE ONCE PRN PRN Reason: Consult order Pharmacy Consult (Consult Rx Vancomycin Dosing) 1 each MISCELLANE DAILY PRN PRN Reason: Consult order Sodium Chloride (0.9 % Sodium Chloride Flush 3 Ml Syringe) 3 ml IVFLUSH QSHIFT COUNTS INCLUDE 234 BEDS AT THE [facility] Last Admin: 09/16/21 10:47 Dose: 3 ml Documented by: MARGY Tiotropium Standard (Tiotropium Standard 18 Mcg Cap.W.Dev) 1 puff INHALE RDAILY [facility]S INCLUDE 234 BEDS AT THE [facility] Last Admin: 09/16/21 07:33 Dose: 1 puff Documented by: INESSA Vitamin D (Cholecalciferol (Vitamin D3) 25 Mcg Tablet) 50 mcg PO DAILY [facility] INCLUDE 234 BEDS AT THE [facility] Last Admin: 09/16/21 10:48 Dose: 50 mcg Documented by: MARGY Warfarin Sodium (Warfarin Sodium 2.5 Mg Tablet) 2.5 mg PO DAILY@1800 COUNTS INCLUDE 234 BEDS AT THE [facility] Labs CBC & Chem 7: 09/15/21 06:09 09/16/21 06:24 Labs: Laboratory Results - last 24 hr 09/15/21 09/16/21 09/16/21 16:01 06:24 06:24 PT 27.4 H INR 2.4 H Anion Gap 12 Estim Creat Clear Calc 21.9 Estimated GFR 23 Random Glucose 65 Calcium 8.4 B-Natriuretic Peptide Random Vancomycin 13.2 L 09/16/21 06:24 PT INR Anion Gap Estim Creat Clear Calc Estimated GFR Random Glucose Calcium B-Natriuretic Peptide 313 H Random Vancomycin Microbiology Microbiology Results: Microbiology 09/13/21 13:53 Blood Culture - Preliminary Blood - Venous No growth after 48 hours. 09/13/21 13:51 Blood Culture - Preliminary Blood - Venous No growth after 48 hours. Assessment and Plan (1) Cellulitis of left leg: Status: Acute (2) Sepsis: Status: Acute (3) JEN (acute kidney injury): Status: Acute Plan 81F presente with sob, erythema of legs, found to have JEN severe sepsis due to left lower extremity cellulitis in setting of lymphedema erythema improving To change vancomycin to p.o. doxy and Keflex Negative blood cultures continue Parminder wrap acute on chronic diastolic chf Improving continue IV lasix Fluid restriction monitor bmp JEN presumed cardiorenal slightly improved with dieresis, continue to monitor Nephrology input appreciated chronic atrial fibrillation with supratherapeutic inr continue cardizem amiodarone INR 2.4 today Restart warfarin COPD with pulmoanry htn breo albuterol prn singulair obesity weight loss hypothyroid synthroid full code reason for continued hospitalization: patient has severe sepsis, jen, and chf requiring close monitoring and multiple IV medications, she is high risk for decompensation Quality Stroke Does the patient have a stroke diagnosis?: No VTE Prior VTE?: No VTE Risk Level:: Medical - moderate - high VTE Device Contraindication: Treatment Not Indicated VTE Drug Contraindication: N/A - Med Ordered
[2021-09-16 16:24] LABS: Glucose, Whole Blood 125 mg/dL (60-115)
[2021-09-16] MEDS: Warfarin Sodium 2.5 MG TABLET PO (17:48)
[2021-09-16] MEDS: guaiFENesin DM 100/10/5 ML 5 ML SYRUP PO (21:02)
[2021-09-16] MEDS: Ammonium Lactate 12 % Lotion 226 GM BOTTLE 1 APPL TOPICAL (21:04)
[2021-09-16] MEDS: Clotrimazole 1 % Cream 15 GM TUBE 1 APPL TOPICAL (21:08)
[2021-09-16] MEDS: cephALEXin 500 MG CAPSULE PO (21:10)
[2021-09-16] MEDS: Montelukast Sodium 10 MG TABLET PO (21:10)
--- NOTE | 2021-09-16 23:59 | PM.PNNEP ---
Subjective Subjective Date of Service: 09/16/21 Interval history: Seen and examined, events noted Physical Exam Vital Signs: Vital Signs: Last Vital Signs Temp 98.9 F 09/16/21 20:00 Pulse 79 09/16/21 20:00 Resp 16 09/16/21 20:00 BP 105/62 09/16/21 20:00 Pulse Ox 93 09/16/21 20:00 BMI result Body Mass Index 32.9 Const: Other: Constitutional : Alert, oriented, not in distress Neck : Normal inspection, Supple Cardiovascular : RRR, S1 S2, +1 bilateral lower extremity edema Respiratory : for bilateral air entry, no crackles, wheezes or rhonchi Gastrointestinal: soft, lax, Normal bowel sounds, Non tender Skin : Warm, Dry, stasis dermatitis of lower extremities so she did with mild erythema and left lower extremity, no drainage Neurological : Alert & oriented x3, No focal deficit Objective Data Labs CBC & Chem 7: 09/15/21 06:09 09/16/21 06:24 Labs: Laboratory Results - last 24 hr 09/16/21 09/16/21 09/16/21 06:24 06:24 06:24 PT 27.4 H INR 2.4 H Sodium 137 Potassium 4.1 Chloride 99 Carbon Dioxide 30 H Anion Gap 12 BUN 40 H Creatinine 2.07 H Estim Creat Clear Calc 21.9 Estimated GFR 23 POC Glucose Random Glucose 65 Calcium 8.4 B-Natriuretic Peptide 313 H 09/16/21 16:17 PT INR Sodium Potassium Chloride Carbon Dioxide Anion Gap BUN Creatinine Estim Creat Clear Calc Estimated GFR POC Glucose 125 H Random Glucose Calcium B-Natriuretic Peptide Microbiology Microbiology Results: Microbiology 09/13/21 13:53 Blood - Venous Blood Culture - Preliminary No growth after 48 hours. 09/13/21 13:51 Blood - Venous Blood Culture - Preliminary No growth after 48 hours. Procedures Date of Service Date of Service: 09/17/21 Assessment & Plan Assessment and plan (1) Cellulitis of left leg: Status: Acute (2) Sepsis: Status: Acute (3) JEN (acute kidney injury): Status: Acute Plan 1.JEN: most /w CRSyn; Scr grad decr with diuresis; h/o recurrent JEN events 2. CKD 3 3. LE edema: multifact including chronic venous stasis REC: cont track UOP/renal func; cont diuresis will follow with team Time Spent With Patient Time: Total time spent is greater than 50% in coordination of care (as documented) at patient's floor/unit and/or counseling patient: Progress Note: Quality Stroke Does the patient have a stroke diagnosis?: No
[2021-09-17 03:10] VITALS: BP 100/54; PULSE 68; RESP 18; TEMP 36.3; O2SAT 95
[2021-09-17] MEDS: Omeprazole 20 MG CAPSULE.DR PO (06:08)
[2021-09-17] MEDS: Levothyroxine Sodium 50 MCG TABLET PO (06:08)
[2021-09-17 07:06] LABS: B Type Natriuretic Peptide 288 pg/mL (<100)
[2021-09-17 07:11] LABS: Anion Gap 11 (12-20); Blood Urea Nitrogen 36 mg/dL (9-16); Calcium 8.6 mg/dL (8.4-10.2); Carbon Dioxide 34 mmol/L (22-29); Chloride 99 mmol/L (96-108); Creatinine Clr Calc Pharmacy 22.8; Estimated Glomerular Filt Rate 24; Glucose Random 69 mg/dL (60-115); Potassium 4.3 mmol/L (3.3-5.1); Sodium 140 mmol/L (135-145)
[2021-09-17 07:12] LABS: INTERNATIONAL NORM RATIO 1.7 (0.9-1.1); Prothrombin Time 20.1 SEC (9.9-13.0)
[2021-09-17] MEDS: Fluticasone/Vilanterol 100/25 BLST.W.DEV 1 PUFF INHALE (07:47)
[2021-09-17 07:49] VITALS: PULSE 97; RESP 18; O2SAT 90
[2021-09-17 08:00] VITALS: BP 108/64; PULSE 80; RESP 16; TEMP 36.8; O2SAT 92
[2021-09-17] MEDS: Cholecalciferol (Vitamin D3) 25 MCG TABLET 50 MCG PO (08:40)
[2021-09-17] MEDS: Loratadine 10 MG TABLET PO (08:40)
[2021-09-17] MEDS: Calcium + Vitamin D 250 MG TABLET PO (08:40)
[2021-09-17] MEDS: cephALEXin 500 MG CAPSULE PO (08:41)
[2021-09-17] MEDS: Amiodarone HCL 200 MG TABLET PO (08:41)
[2021-09-17] MEDS: Midodrine HCl 5 MG TABLET PO (08:41)
[2021-09-17] MEDS: Ferrous Sulfate 324 MG TABLET.DR PO (08:41)
[2021-09-17] MEDS: dilTIAZem HCL CD 120 MG CAP.ER.DEG PO (08:41)
[2021-09-17] MEDS: Furosemide 40 MG/4 ML VIAL 60 MG IVPUSH (08:41)
[2021-09-17] MEDS: 0.9 % Sodium Chloride Flush 3 ML SYRINGE IVFLUSH (08:41)
--- NOTE | 2021-09-17 11:04 | P.DS_ITS ---
DS: Providers Provider Date of Service: 09/17/21 Date of admission: 09/13/21 16:49 Primary care physician: Laxmi Gutierrez MD Consults: 09/15/21 08:41 Consult to Nephrology Routine Consulting Provider: Jose Hardy Reason for consultation: JEN in setting of CHF exacerbation and Lymphedema DS: Diagnosis Discharge Diagnosis (1) Cellulitis of left leg: Status: Acute (2) Sepsis: Status: Acute (3) JEN (acute kidney injury): Status: Acute (4) Acute on chronic right heart failure: Status: Acute DS: Summary Hospital Course Hospital Course: Admission note HPI 81-year-old female presented with shortness of breath and increased leg swelling and erythema and warmth.? Patient was recently admitted to [facility] in July of 2021 for CHF and cellulitis.? She was treated with vancomycin and transitioned to doxycycline, and had some improvement after IV diuresis.? At time of discharge patient was feeling well.? She lives independently.? After about 2 weeks she then started to have increasing shortness of breath, increasing lower extremity edema.? About 2-3 days prior to presentation the symptoms significantly worsened, positive orthopnea with difficulty sleeping.? Weeping from swollen legs, warmth and erythema bilaterally.? Denies fevers or chills.? In ED WBC elevated 22, evidence of acute kidney injury with creatinine of 2.7. Hospital course The patient was admitted to the hospital for evidence of sepsis due to left lower extremity cellulitis in setting of lymphedema hip. She was treated with IV antibiotics of vancomycin, Parminder wrap as the blood cultures remain negative during the hospital stay. Antibiotics were changed to oral doxycycline and Keflex as white blood cells trended down to normal. Noted to have athlete foot treated with anti fungal cream. At the same time she was treated for acute on chronic diastolic chf exacerbation with IV Lasix and fluid restriction with fair response over the course of hospital stay. Plan is to discharge home in her home dose of Lasix and to follow-up with her PCP and Nephrology as outpatient. At time of presentation she was noted to have acute kidney injury. presumed cardiorenal. slightly improved with dieresis as nephrology evaluated the patient and recommended follow-up as outpatient. She was noted to have supratherapeutic INR at time of presentation around 5 trended down to 2.41 her warfarin was restarted. Continue doxycycline and Keflex as prescribed Use on the fungal cream between the toes for the next week Use ammonium lactate lotion for your legs bilaterally to keep them moist Keep your legs elevated, use compressing stalking or Parminder wrap To follow-up with kidney doctor as outpatient, dr Hardy To repeat kidney function next week. Time Spent with Patient Time attestation: Total time spent providing and/or coordinating discharge services: Discharge coordination time: Greater than 30 minutes Quality: Stroke Does the patient have a stroke diagnosis?: No Physical Exam Vital Signs: Vital Signs: Last Vital Signs Temp 98.2 F 09/17/21 08:00 Pulse 80 09/17/21 08:00 Resp 16 09/17/21 08:00 BP 108/64 09/17/21 08:00 Pulse Ox 92 09/17/21 08:00 BMI result Body Mass Index 32.9 Const: Other: Constitutional : Alert, oriented, not in distress Neck : Normal inspection, Supple Cardiovascular : RRR, S1 S2, trace bilateral lower extremity edema Respiratory : for bilateral air entry, no crackles, wheezes or rhonchi Gastrointestinal: soft, lax, Normal bowel sounds, Non tender Skin : Warm, dry skin and lower extremities stasis dermatitis of lower extremities minimal erythema at the back of her fluid with very minimal tenderness, fungal infection between toes, no drainage Neurological : Alert & oriented x3, No focal deficit DS: Data Data Completed and Pending Labs on day of discharge: Laboratory Results - last 24 hr 09/16/21 09/17/21 09/17/21 16:17 06:22 06:22 PT 20.1 H INR 1.7 H Sodium 140 Potassium 4.3 Chloride 99 Carbon Dioxide 34 H Anion Gap 11 L BUN 36 H Creatinine 1.99 H Estim Creat Clear Calc 22.8 Estimated GFR 24 POC Glucose 125 H Random Glucose 69 Calcium 8.6 B-Natriuretic Peptide 09/17/21 06:22 PT INR Sodium Potassium Chloride Carbon Dioxide Anion Gap BUN Creatinine Estim Creat Clear Calc Estimated GFR POC Glucose Random Glucose Calcium B-Natriuretic Peptide 288 H Preliminary micro results at discharge 09/13/21 13:53 Blood Culture - Preliminary Blood - Venous No growth after 48 hours. 09/13/21 13:51 Blood Culture - Preliminary Blood - Venous No growth after 48 hours. Discharge Plan Discharge Patient Disposition: Home Health Service Discharge Diagnosis: Acute kidney injury Acute heart failure exacerbation Cellulitis Referrals: [facility] [Outside] - 1 Week Laxmi Gutierrez MD [Primary Care Provider] - 1 Week Discharge Medications: New cephalexin 500 mg Capsule 500 mg PO Q12H 4 Days Qty: 8 0RF doxycycline hyclate 100 mg Tablet 100 mg PO Q12H 4 Days Qty: 8 0RF ammonium lactate 12 % Lotion 1 appl topical BID 30 Days 0RF Protocol: Apply to: Apply to: Bilateral lower extremities clotrimazole 1 % Cream 1 appl topical BID 7 Days 0RF Protocol: Apply to: Apply to: Feet between toes bilaterally Continued midodrine 5 mg tablet 5 mg PO TID 0RF warfarin 2.5 mg tablet 2.5 mg PO DAILY 0RF diltiazem HCl 120 mg capsule,extended release 24 hr 120 mg PO BID 0RF levothyroxine 50 mcg tablet 50 mcg PO DAILY 0RF ferrous sulfate [FeroSul] 325 mg (65 mg iron) tablet 325 mg PO DAILY 0RF omeprazole 20 mg capsule,delayed release(DR/EC) 20 mg PO DAILY@0630 0RF loratadine 10 mg tablet 10 mg PO DAILY 0RF calcium carbonate-vitamin D3 600 mg(1,500mg) -400 unit tablet 1 tab PO BID 0RF cholecalciferol (vitamin D3) [Vitamin D3] 50 mcg (2,000 unit) capsule 50 mcg PO DAILY 0RF Xolair 150 mg recon soln 300 mg subcut Q2W 0RF Trelegy Ellipta 100-62.5-25 mcg blister with device 1 puff inhalation DAILY 0RF albuterol sulfate 2.5 mg /3 mL (0.083 %) solution for nebulization 2.5 mg inhalation Q4H PRN (Reason: Shortness Of Breath) 0RF montelukast 10 mg tablet 1 tab PO DAILY 0RF mupirocin 2 % ointment 1 applic topical BID-TID 0RF furosemide 20 mg tablet 60 mg PO DAILY 0RF amiodarone 200 mg tablet 200 mg DAILY 0RF Rx Instructions: Take 400mg twice daily for a total of 14 days (08/31/21), then 200mg daily Discharge Orders: Discharge Order (Routine); Ordered 09/17/21 Ordered By: Rosmery Nieto Diet: advance to usual diet and low salt diet Activity on Discharge: As tolerated Stand Alone Forms: Patient Portal Discharge page Other Ambulatory Orders: Basic Metabolic Panel (Routine) Timeframe: 1 Week Facility: [facility] - Location: Laboratory Ordered By: Rosmery Nieto Care Plan Goals: Read below Health Concerns: Read below Plan of Treatment: Read below Assessment: You were admitted to the hospital for treatment of leg pain and increased edema. Found to have cellulitis of the leg associated with heart failure exacerbation and evidence of acute kidney injury. You were treated with water pills with good response over the course of hospital stay as the swelling decreased and your kidney function improved slightly. You were treated with IV antibiotics, antifungal cream for the leg infection with fair response. Continue doxycycline and Keflex as prescribed Use on the fungal cream between the toes for the next week Use ammonium lactate lotion for your legs bilaterally to keep them moist Keep your legs elevated, use compressing stalking or Parminder wrap To follow-up with kidney doctor as outpatient, dr Hardy To repeat kidney function next week. Decrease fluid intake to 1.5 L a day and monitor your weight at home. Discharge Date/Time: 09/17/21 14:08
--- NOTE | 2021-09-17 11:52 | MHC.CM.PN ---
IMM 09/17/21 Female DX SOB LE edema Patient is discharged today to home with resumption of [facility]. She will transport via [facility] at 1:30pm today. Prescription have been provided. Patients sonJanusz has been notified to expect the patient this afternoon.
[2021-09-17 11:54] VITALS: BP 132/71; PULSE 89; RESP 16; TEMP 36.7; O2SAT 93
--- NOTE | 2021-09-17 12:59 | PM.PNNEP ---
Subjective Subjective Date of Service: 09/17/21 Interval history: Seen and examined, events noted Physical Exam Vital Signs: Vital Signs: Last Vital Signs Temp 98.0 F 09/17/21 11:54 Pulse 89 09/17/21 11:54 Resp 16 09/17/21 11:54 BP 132/71 09/17/21 11:54 Pulse Ox 93 09/17/21 11:54 BMI result Body Mass Index 32.9 Constitutional : Alert, oriented, not in distress Neck : Normal inspection, Supple Cardiovascular : RRR, S1 S2, ? trace bilateral lower extremity edema Respiratory :? for bilateral air entry,? no crackles, wheezes or rhonchi Gastrointestinal:? soft, lax, Normal bowel sounds, Non tender Skin : Warm, dry skin and lower extremities stasis dermatitis of lower extremities minimal erythema at the back of her fluid with very minimal tenderness, fungal infection between toes, no drainage Neurological : Alert & oriented x3, No focal deficit Objective Data Labs CBC & Chem 7: 09/15/21 06:09 09/17/21 06:22 Labs: Laboratory Results - last 24 hr 09/16/21 09/17/21 09/17/21 16:17 06:22 06:22 PT 20.1 H INR 1.7 H Sodium 140 Potassium 4.3 Chloride 99 Carbon Dioxide 34 H Anion Gap 11 L BUN 36 H Creatinine 1.99 H Estim Creat Clear Calc 22.8 Estimated GFR 24 POC Glucose 125 H Random Glucose 69 Calcium 8.6 B-Natriuretic Peptide 09/17/21 06:22 PT INR Sodium Potassium Chloride Carbon Dioxide Anion Gap BUN Creatinine Estim Creat Clear Calc Estimated GFR POC Glucose Random Glucose Calcium B-Natriuretic Peptide 288 H Microbiology Microbiology Results: Microbiology 09/13/21 13:53 Blood - Venous Blood Culture - Preliminary No growth after 48 hours. 09/13/21 13:51 Blood - Venous Blood Culture - Preliminary No growth after 48 hours. Procedures Date of Service Date of Service: 09/17/21 Assessment & Plan Assessment and plan (1) JEN (acute kidney injury): Status: Acute Assessment and Plan: 1.JEN: most /w CRSyn; Scr grad decr with diuresis; h/o recurrent JEN events 2. CKD 3 3. LE edema: multifact including chronic venous stasis REC: cont track UOP/renal func; cont diuresis will follow with team (2) Acute on chronic right heart failure: Status: Acute Time Spent With Patient Time: Total time spent is greater than 50% in coordination of care (as documented) at patient's floor/unit and/or counseling patient: Progress Note: Quality Stroke Does the patient have a stroke diagnosis?: No
== END 2021-09-17 14:08 | disposition home health service (06) | DRG 871 ==
LOC: HO.ED 15:10 → HO.EDOVER 18:32 → HO.IMC 09-14 19:25
PROVIDERS: Physician Assistant; Admitting Provider Internal Medicine; Emergency Provider Emergency Medicine Emergency Medical Services; PCP Internal Medicine; Visit Provider Student in an Organized Health Care Education/Training Program
DX: A41.9 Sepsis, unspecified organism (principal); I50.33 Acute on chronic diastolic (congestive) heart failure; N17.9 Acute kidney failure, unspecified; L03.116 Cellulitis of left lower limb; I48.20 Chronic atrial fibrillation, unspecified; N39.0 Urinary tract infection, site not specified; I12.9 Hypertensive chronic kidney disease with stage 1 through stage 4 chronic kidney disease, or unspecified chronic kidney disease; R79.1 Abnormal coagulation profile; I89.0 Lymphedema, not elsewhere classified; R65.20 Severe sepsis without septic shock; E66.9 Obesity, unspecified; I50.813 Acute on chronic right heart failure; Z68.32 Body mass index [BMI] 32.0-32.9, adult; I87.322 Chronic venous hypertension (idiopathic) with inflammation of left lower extremity; I95.89 Other hypotension; I27.20 Pulmonary hypertension, unspecified; E03.9 Hypothyroidism, unspecified; Z20.822 Contact with and (suspected) exposure to COVID-19; Z79.01 Long term (current) use of anticoagulants; Z79.890 Hormone replacement therapy; Z79.899 Other long term (current) drug therapy
CPT/HCPCS: 36415; 71045; 80048; 80076; 80202; 81001; 82947; 83605; 83735; 83880; 84145; 84484; 85025; 85027; 85610; 85652; 85730; 86140; 87040; 87635; 93005; 93970; 94640; 96365; 96375; 99285; 99291; J0696; J1940; J3370; P9047

== ENCOUNTER 2021-10-05 17:32 | Inpatient (IN) | payer OTHER, SELFPAY ==
[2021-10-05] VITALS (7 sets, daily range): BP systolic 76–104; BP diastolic 45–54; PULSE 80–98; RESP 15–21; TEMP 36.7–38.2; O2SAT 96–100; BMI 33.2
--- NOTE | ~2021-10-05 | CT_ITS ---
EXAMINATION: CT ABDOMEN AND PELVIS WITHOUT CONTRAST CT RIGHT LOWER LEG WITHOUT CONTRAST CLINICAL INFORMATION: Diarrhea. Pain and swelling. COMPARISON: CT right lower leg dated 08/13/2021. CT abdomen/pelvis dated 02/07/2021. TECHNIQUE: Multidetector volumetric imaging was performed from the superior aspect of the liver through the pubic symphysis. Sagittal and coronal reformatted images were obtained on the technologist's workstation. CT imaging of the right lower extremity the joint inferiorly was also performed. Coronal and sagittal reformats are reviewed. This CT examination was performed using dose optimization techniques as appropriate, variously including the following: *Automated exposure control *Adjustment of mA and/or kV according to patient size (this includes techniques or standardized protocols for targeted exams where dose is matched to indication/reason for exam; i.e. extremities or head) *Use of iterative reconstruction technique DLP: 990 mGy-cm FINDINGS: LUNG BASES: Cardiomegaly. No focal consolidation. LIVER, GALLBLADDER, AND BILIARY TREE: The liver is normal in size, shape, and attenuation. No focal hepatic lesion or biliary ductal dilatation is present. Cholelithiasis. PANCREAS: Atrophic without inflammation or mass. SPLEEN: Unremarkable. ADRENAL GLANDS: Unremarkable. KIDNEYS AND URETERS: The kidneys show mild renal cortical atrophy bilaterally. No hydronephrosis, hydroureter, or calculi seen. No perinephric stranding. BLADDER: Unremarkable. GASTROINTESTINAL TRACT: No intestinal obstruction or inflammation, although assessment is somewhat limited due to extensive respiratory motion artifact. ABDOMINAL WALL: No significant hernia is appreciated. LYMPH NODES: Enlarged bilateral inguinal lymph nodes noted, with a right inguinal lymph nodes measuring up to 1.5 cm short axis, mildly increased in size from the prior. Mildly enlarged left external iliac lymph node measures 1.4 cm short axis. Enlarged lymph node present in the bilateral inguinal regions. Shotty retroperitoneal lymph nodes have increased in size from the prior exam. VASCULAR: Aorta mildly atherosclerotic. There is a 1 cm splenic artery aneurysm. PELVIC VISCERA: Unremarkable. OSSEOUS STRUCTURES: No acute or suspicious osseous abnormalities. RIGHT LOWER EXTREMITY: Diffuse skin thickening present, most notably from the mid tibia and distally similar in appearance to the prior exam. There is also subcutaneous fat stranding without drainable fluid collection. No periosteal reaction or cortical destruction to suggest osteomyelitis. Fatty atrophy of the lower extremity musculature is present. Severe degenerative changes of the knee joint redemonstrated. Bones are demineralized. CT/CT abdomen pelvis wo con IMPRESSION: * No acute findings within the abdomen or pelvis to explain the patient's diarrhea, although assessment is limited by extensive respiratory motion artifact. * Nonspecific shotty retroperitoneal lymph nodes and increase in size from the prior exam. Also increase in size are bilateral inguinal lymph nodes, most prominent within the right inguinal region, also nonspecific, potentially reactive. * Diffuse skin thickening present throughout the right lower extremity, particularly from the level of the mid tib-fib and distally compatible with cellulitis. No evidence of abscess. No evidence of osteomyelitis.
--- NOTE | ~2021-10-05 | XR_ITS ---
EXAMINATION: XR CHEST CLINICAL INFORMATION: Cough, congestion COMPARISON: 09/13/2021 TECHNIQUE: Frontal view of the chest was obtained. FINDINGS: Lungs are hypoinflated. This results in crowding of the bronchovascular structures. It is somewhat difficult to evaluate the pulmonary interstitium due to the degree of hypoinflation. As reported on 09/13/2021, there might be pulmonary vascular congestion. No pulmonary edema. No focal consolidation or pleural effusion. There is a stable appearance of the large cardiac silhouette. 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 XR/XR chest 1V IMPRESSION: * No radiographic evidence of pneumonia. * The lungs are suboptimally evaluated due to the degree of hypoinflation. * There is cardiomegaly. Mild pulmonary vascular congestion is suspected. The chest remains similar in appearance compared to prior from 09/13/2021.
--- NOTE | 2021-10-05 17:55 | ED_ITS ---
HPI - General Adult General Chief complaint: General Medical Stated complaint: ?sepsis Time Seen by Provider: 10/05/21 17:54 Source: patient Mode of arrival: EMS Limitations: no limitations History of Present Illness HPI narrative: Patient with history of lymphedema with recurrent cellulitis of lower extremities comes here for last 2 days of increased swelling and pain of both legs with fever on arrival patient's temperature was 100.8 degrees also feel nauseated and coughing patient did not eat much since yesterday Related Data Home Medications Medication Instructions Recorded Confirmed calcium carbonate 600 mg-vitamin 1 tab PO BID 02/04/21 10/05/21 D3 10 mcg (400 unit) tablet cholecalciferol (vitamin D3) 50 50 mcg PO DAILY 02/04/21 10/05/21 mcg (2,000 unit) capsule (Vitamin D3) diltiazem HCl 120 mg capsule,24 120 mg PO BID 02/04/21 10/05/21 hr,extended release ferrous sulfate 325 mg (65 mg 325 mg PO DAILY 02/04/21 10/05/21 iron) tablet (FeroSul) levothyroxine 50 mcg tablet 50 mcg PO DAILY 02/04/21 10/05/21 loratadine 10 mg tablet 10 mg PO DAILY 02/04/21 10/05/21 midodrine 5 mg tablet 5 mg PO TID 02/04/21 10/05/21 omeprazole 20 mg capsule,delayed 20 mg PO DAILY@0630 02/04/21 10/05/21 release warfarin 2.5 mg tablet 2.5 mg PO DAILY 02/04/21 10/05/21 fluticasone fur. 100 mcg-umeclid 1 puff INHALATION DAILY 05/03/21 10/05/21 62.5 mcg-vilant 25 mcg inhalat.powder (Trelegy Ellipta) omalizumab 150 mg subcutaneous 300 mg SUBCUT Q2W 05/03/21 10/05/21 solution (Xolair) albuterol sulfate 2.5 mg INHALATION Q4H PRN 08/09/21 10/05/21 montelukast 10 mg tablet 1 tab PO DAILY 08/09/21 10/05/21 amiodarone 200 mg tablet 200 mg DAILY 09/13/21 10/05/21 furosemide 20 mg tablet 60 mg PO DAILY 09/13/21 10/05/21 mupirocin 2 % topical ointment 1 applic TOPICAL BID-TID 09/13/21 10/05/21 Previous Rx's Medication Instructions Recorded ammonium lactate 12 % lotion 1 appl TOPICAL BID 30 Days g 09/17/21 clotrimazole 1 % topical cream 1 appl TOPICAL BID 7 Days g 09/17/21 Allergies Allergy/AdvReac Type Severity Reaction Status Date / Time lisinopril [LISINOPRIL] Allergy Unknown UNKNOWN Verified 02/05/21 21:56 simvastatin [SIMVASTATIN] Allergy Unknown UNKNOWN Verified 02/05/21 21:56 Review of Systems Review of Systems: Yes all other systems are reviewed and are negative [facility] Past Medical History Medical History Acute on chronic right heart failure Afib Asthma Cellulitis of right leg CHF (congestive heart failure) HTN (hypertension) Hypothyroid Idiopathic hypotension Lymphedema Non-healing wound of right lower extremity Pulmonary hypertension Sepsis Tricuspid valve regurgitation Venous stasis dermatitis of right lower extremity Surgical History S/P hip replacement Family History Family History Mother Gastric cancer Social History Social History Household Members: None Housing: Apartment Do you presently have visiting nurse or other home services: Yes Alcohol intake: never Patient Tobacco Use Status: Never used Tobacco Second Hand Smoke Exposure: No Advance Directives: Yes Advance Directives on File: Yes Advance Directives Date on File: 02/05/21 service: No Current occupational status: disabled Physical Exam ED Vital Signs: Vital Signs - 24 hr 10/05/21 18:08 10/05/21 19:39 10/05/21 19:59 Temperature 100.8 F H 100.7 F H Pulse Rate 98 80 98 Respiratory Rate 15 18 21 H Blood Pressure 76/45 L 80/46 L 87/50 L Pulse Oximetry 96 98 98 10/05/21 20:47 10/05/21 21:39 10/05/21 22:13 Temperature 99.0 F 98.4 F 98.8 F Pulse Rate 85 86 94 Respiratory Rate 17 19 15 Blood Pressure 87/48 L 85/48 L 92/54 L Pulse Oximetry 100 100 100 BMI result Body Mass Index 33.2 Appearance: Alert. Oriented X3. No acute distress. Eyes: PERRLA, No Nystagmus ENT: Pharynx normal. Oral Mucosa moist Neck: Normal inspection. Neck supple. CVS: Normal heart rate and rhythm. Pulses normal. Respiratory: No respiratory distress. Equal air entry bilateral, no wheezing/rales/rhonchi Abdomen: Soft and nontender. Bowel sounds are present, no mass palpable, no CVA tenderness Skin: Skin warm and dry. Normal skin color. Normal skin turgor. Extremities: Chronic bilateral lymphedema, increased warmth and redness especially the right leg no open wound no crepitus Neuro: Oriented X 3. No motor deficit. No sensory deficit.No cerebellar signs , cranial nerves II-XII intact Medical Decision Making MDM Narrative Medical decision making narrative: Patient with bilateral cellulitis with fever with leukocytosis meeting the criteria for sepsis patient has started drop in blood pressure patient is on midodrin blood pressure improved after IV hydration and midodrine patient received IV fluid more than 30 cc/kilograms IV antibiotic Zosyn and vancomycin admit to medical floor CT scan of the lower extremity negative for any fluid collection. Lab Data Lab results reviewed: Yes I reviewed the patient's lab results. Result diagrams: 10/05/21 18:37 10/05/21 18:37 Labs: Lab Results 10/05/21 10/05/21 10/05/21 Range/Units 18:37 18:37 18:37 WBC 21.4 H (4.8-10.8) X10*3/uL RBC 3.51 L (4.20-5.50) X10*6/uL Hgb 9.8 L (12.0-16.0) g/dl Hct 32.2 L (37.0-47.0) % MCV 91.7 (80.0-98.0) fL MCH 27.9 (27.0-33.0) pg MCHC 30.4 L (31.0-35.0) g/dl RDW 15.9 (11.0-16.0) % Plt Count 206 D (160-400) X10*3/uL MPV 11.3 (9.4-12.3) fL Immature Gran % (Auto) Cancelled Neut % (Auto) Cancelled Lymph % (Auto) Cancelled [place] % (Auto) Cancelled Eos % (Auto) Cancelled Baso % (Auto) Cancelled Lymph # (Auto) Cancelled [place] # (Auto) Cancelled Eos # (Auto) Cancelled Baso # (Auto) Cancelled Abs Immat Gran (auto) Cancelled Absolute Neuts (auto) Cancelled Absolute Nucleated RBC 0.000 (0.0-0.012) X10*3/uL Nucleated RBC % (auto) 0.0 (0.0-0.2) /100WBC Neutrophils % (Manual) 76 H (45-73) % Band Neutrophils % 17 H (3-5) % Lymphocytes % (Manual) 2 L (20-40) % Monocytes % (Manual) 2 (2-11) % Metamyelocytes % 3 % Abs Neuts (Manual) 19.9 H (2.0-8.3) X10*3/uL Lymphocytes # (Manual) 0.4 L (1.2-4.9) X10*3/uL Monocytes # (Manual) 0.4 (0.1-1.2) X10*3/uL Metamyelocytes # 0.6 X10*3/uL Toxic Vacuolation PRESENT Dohle Bodies PRESENT Platelet Estimate NORMAL (NORMAL) Plt Morphology Comment NORMAL RBC Morphology NOTED Polychromasia 1+ (0-2) /OIF Hypochromasia 1+ (5-14) /OIF Stomatocytes 1+ (5-14) /OIF Schistocytes 1+ (0-2) /OIF Smear Tech's Comments MANUAL DIFF PT (9.9-13.0) SEC INR (0.9-1.1) APTT (24.1-38.0) SEC Sodium 135 (135-145) mmol/L Potassium 5.0 (3.3-5.1) mmol/L Chloride 101 (96-108) mmol/L Carbon Dioxide 27 (22-29) mmol/L Anion Gap 12 (12-20) BUN 25 H (9-16) mg/dL Creatinine 2.37 H (0.5-1.4) mg/dL Estim Creat Clear Calc 19.9 Estimated GFR 20 Random Glucose 65 (60-115) mg/dL Lactic Acid 1.6 (0.5-2.0) mmol/L Calcium 8.3 L (8.4-10.2) mg/dL Total Bilirubin 0.7 (0.0-1.0) mg/dL AST 16 (5-31) U/L ALT < 6 (0-31) U/L Alkaline Phosphatase 77 D (39-117) U/L Total Protein 7.9 (6.5-8.0) g/dL Albumin 2.7 L (3.5-5.0) g/dL Influenza Type A (PCR) (Negative) Influenza Type B (PCR) (Negative) RSV RNA Qual (PCR) (Negative) SARS-CoV-2 RNA (RT-PCR) (Negative) 10/05/21 10/05/21 Range/Units 18:37 18:37 WBC (4.8-10.8) X10*3/uL RBC (4.20-5.50) X10*6/uL Hgb (12.0-16.0) g/dl Hct (37.0-47.0) % MCV (80.0-98.0) fL MCH (27.0-33.0) pg MCHC (31.0-35.0) g/dl RDW (11.0-16.0) % Plt Count (160-400) X10*3/uL MPV (9.4-12.3) fL Immature Gran % (Auto) Neut % (Auto) Lymph % (Auto) [place] % (Auto) Eos % (Auto) Baso % (Auto) Lymph # (Auto) [place] # (Auto) Eos # (Auto) Baso # (Auto) Abs Immat Gran (auto) Absolute Neuts (auto) Absolute Nucleated RBC (0.0-0.012) X10*3/uL Nucleated RBC % (auto) (0.0-0.2) /100WBC Neutrophils % (Manual) (45-73) % Band Neutrophils % (3-5) % Lymphocytes % (Manual) (20-40) % Monocytes % (Manual) (2-11) % Metamyelocytes % % Abs Neuts (Manual) (2.0-8.3) X10*3/uL Lymphocytes # (Manual) (1.2-4.9) X10*3/uL Monocytes # (Manual) (0.1-1.2) X10*3/uL Metamyelocytes # X10*3/uL Toxic Vacuolation Dohle Bodies Platelet Estimate (NORMAL) Plt Morphology Comment RBC Morphology Polychromasia /OIF Hypochromasia /OIF Stomatocytes /OIF Schistocytes /OIF Smear Tech's Comments PT 50.7 H (9.9-13.0) SEC INR 4.3 H D (0.9-1.1) APTT 52.7 H (24.1-38.0) SEC Sodium (135-145) mmol/L Potassium (3.3-5.1) mmol/L Chloride (96-108) mmol/L Carbon Dioxide (22-29) mmol/L Anion Gap (12-20) BUN (9-16) mg/dL Creatinine (0.5-1.4) mg/dL Estim Creat Clear Calc Estimated GFR Random Glucose (60-115) mg/dL Lactic Acid (0.5-2.0) mmol/L Calcium (8.4-10.2) mg/dL Total Bilirubin (0.0-1.0) mg/dL AST (5-31) U/L ALT (0-31) U/L Alkaline Phosphatase (39-117) U/L Total Protein (6.5-8.0) g/dL Albumin (3.5-5.0) g/dL Influenza Type A (PCR) NEGATIVE (Negative) Influenza Type B (PCR) NEGATIVE (Negative) RSV RNA Qual (PCR) NEGATIVE (Negative) SARS-CoV-2 RNA (RT-PCR) NEGATIVE (Negative) Critical Care Time Critical Care Time Critical Care Time: Yes Total Critical Care Time: 55 Attestation: I spent 55 minutes of critical care, with interventions, assessments, speaking to patient, consultants, and family. Discharge Plan Discharge Clinical Impression: Bilateral cellulitis of lower leg, CKD (chronic kidney disease) Patient Disposition: Admitted As Inpatient
--- NOTE | 2021-10-05 18:09 | ECG_ITS ---
Test Reason : Hypotension Blood Pressure : / mmHG Vent. Rate : 092 BPM Atrial Rate : 000 BPM P-R Int : 000 ms QRS Dur : 086 ms QT Int : 350 ms P-R-T Axes : 000 -01 004 degrees QTc Int : 432 ms Atrial fibrillation Inferior infarct , age undetermined Anterior infarct , age undetermined Abnormal ECG When compared with ECG of 13-SEP-2021 16:01, Nonspecific T wave abnormality no longer evident in Lateral leads Referred By: Myron Wagner Electronically Signed By:Elgin Hamilton
[2021-10-05 18:55] LABS: Lactic Acid 1.6 mmol/L (0.5-2.0)
[2021-10-05 18:58] LABS: Hematocrit 32.2 % (37.0-47.0); Hemoglobin 9.8 g/dl (12.0-16.0); INTERNATIONAL NORM RATIO 4.3 (0.9-1.1); Mean Corpuscular HGB Conc 30.4 g/dl (31.0-35.0); Mean Corpuscular Hemoglobin 27.9 pg (27.0-33.0); Mean Corpuscular Volume 91.7 fL (80.0-98.0); Mean Platelet Volume 11.3 fL (9.4-12.3); Platelet Count 206 X10*3/uL (160-400); Prothrombin Time 50.7 SEC (9.9-13.0); Red Blood Count 3.51 X10*6/uL (4.20-5.50); Red Cell Distribution Width 15.9 % (11.0-16.0); White Blood Count 21.4 X10*3/uL (4.8-10.8)
[2021-10-05 19:01] LABS: Partial Thromboplastin Time 52.7 SEC (24.1-38.0)
[2021-10-05 19:10] LABS: Alanine Aminotransferase < 6 U/L (0-31); Albumin Level 2.7 g/dL (3.5-5.0); Alkaline Phosphatase 77 U/L (39-117); Anion Gap 12 (12-20); Aspartate Amino Transferase 16 U/L (5-31); Bilirubin Total 0.7 mg/dL (0.0-1.0); Blood Urea Nitrogen 25 mg/dL (9-16); Calcium 8.3 mg/dL (8.4-10.2); Carbon Dioxide 27 mmol/L (22-29); Chloride 101 mmol/L (96-108); Creatinine Clr Calc Pharmacy 19.9; Estimated Glomerular Filt Rate 20; Glucose Random 65 mg/dL (60-115); Sodium 135 mmol/L (135-145); Total Protein 7.9 g/dL (6.5-8.0)
[2021-10-05 19:23] LABS: SLIDE REVIEW MANUAL DIFF
[2021-10-05 19:28] LABS: Influenza A PCR NEGATIVE (Negative); Influenza B PCR NEGATIVE (Negative); Resp Syncy Virus RNA Qual PCR NEGATIVE (Negative); SARS COV2 PCR INHOUSE NEGATIVE (Negative)
[2021-10-05 19:32] LABS: Band Neutrophils Percent 17 % (3-5); Lymphocytes Absolute Manual 0.4 X10*3/uL (1.2-4.9); Lymphocytes Percent Manual 2 % (20-40); Metamyelocytes Absolute 0.6 X10*3/uL; Metamyelocytes Percent 3 %; Monocytes Absolute Manual 0.4 X10*3/uL (0.1-1.2); Monocytes Percent Manual 2 % (2-11); Neutrophils Absolute Manual 19.9 X10*3/uL (2.0-8.3); Neutrophils Percent Manual 76 % (45-73)
[2021-10-05 19:33] LABS: Hypochromasia 1+ (5-14) /OIF; RBC Morphology NOTED
[2021-10-05] MEDS: Piperacillin Sodium/Tazobactam 3.375 GM in 0.9 % Sodium Chloride 50 ML IV (19:34)
[2021-10-05 19:35] LABS: Polychromasia 1+ (0-2) /OIF; Stomatocytes 1+ (5-14) /OIF
[2021-10-05 19:36] LABS: Dohle Bodies PRESENT; Schistocytes 1+ (0-2) /OIF
[2021-10-05 19:37] LABS: Platelet Estimate NORMAL (NORMAL); Toxic Vacuolation PRESENT
--- NOTE | 2021-10-05 19:37 | PC.NURSE ---
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
[2021-10-05 19:38] LABS: Platelet Morphology Comment NORMAL
[2021-10-05] MEDS: vancomycin HCL 1,000 MG in 0.9 % Sodium Chloride 250 ML 270 MG IV (20:26)
[2021-10-05] MEDS: Midodrine HCl 10 MG TABLET PO (20:30)
--- NOTE | 2021-10-05 20:50 | PHA.MEDREC ---
Pharmacy Consult ? Medication Reconciliation Pharmacy has completed the medication reconciliation.
--- NOTE | 2021-10-05 22:30 | PC.NURSE ---
Pt's NS bolus of 2700 mLs was done infusing at 2230.
--- NOTE | 2021-10-05 22:49 | P.HPHOSP_ITS ---
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 Patient reported that over the past few days she has been having pain in her both the legs and has been increased swelling. Also complains of discharge from the right like. Mentions that her right leg is more swollen than usual. Also spoke to the patient's son Nicko. Patient reports she has been having diarrhea. Was on cephalexin recently. Patient denies any chest pain palpitations lightheadedness or dizziness. Denies any cough or sputum production. Review of all other systems is negative except mentioned above ER course: ER team mentioned that patient noted to have bilateral leg swelling concerning for cellulitis; also noted a significant leukocytosis and initially hypertensive with systolic blood pressure in 70s-possibly severe sepsis from cellulitis. Patient was given IV fluids 30 cc/kg with improvement in blood pressure to 80s followed by patient also given mild in; blood pressure improved to 90s systolic. Given IV vancomycin and Zosyn. Admitted to the hospital for further management. [facility] Medical History Acute on chronic right heart failure Afib Asthma Cellulitis of right leg CHF (congestive heart failure) HTN (hypertension) Hypothyroid Idiopathic hypotension Lymphedema Non-healing wound of right lower extremity Pulmonary hypertension Sepsis Tricuspid valve regurgitation Venous stasis dermatitis of right lower extremity Family History Mother Gastric cancer Surgical History S/P hip replacement Social History Household Members: None Housing: Apartment Do you presently have visiting nurse or other home services: Yes Alcohol intake: never Patient Tobacco Use Status: Never used Tobacco Second Hand Smoke Exposure: No Advance Directives: Yes Advance Directives on File: Yes Advance Directives Date on File: 02/05/21 service: No Current occupational status: disabled Meds Allergies Allergy/AdvReac Type Severity Reaction Status Date / Time lisinopril [LISINOPRIL] Allergy Unknown UNKNOWN Verified 02/05/21 21:56 simvastatin [SIMVASTATIN] Allergy Unknown UNKNOWN Verified 02/05/21 21:56 Home Medications Medication Instructions Recorded Confirmed Last Taken Type calcium carbonate 600 mg-vitamin 1 tab PO BID 02/04/21 10/05/21 09/13/21 History D3 10 mcg (400 unit) tablet cholecalciferol (vitamin D3) 50 50 mcg PO DAILY 02/04/21 10/05/21 09/13/21 History mcg (2,000 unit) capsule (Vitamin D3) diltiazem HCl 120 mg capsule,24 120 mg PO BID 02/04/21 10/05/21 09/13/21 History hr,extended release ferrous sulfate 325 mg (65 mg 325 mg PO DAILY 02/04/21 10/05/21 09/13/21 History iron) tablet (FeroSul) levothyroxine 50 mcg tablet 50 mcg PO DAILY 02/04/21 10/05/21 09/13/21 History loratadine 10 mg tablet 10 mg PO DAILY 02/04/21 10/05/21 09/13/21 History midodrine 5 mg tablet 5 mg PO TID 02/04/21 10/05/21 09/13/21 History omeprazole 20 mg capsule,delayed 20 mg PO DAILY@0630 02/04/21 10/05/21 09/13/21 History release warfarin 2.5 mg tablet 2.5 mg PO DAILY 02/04/21 10/05/21 09/12/21 History fluticasone fur. 100 mcg-umeclid 1 puff INHALATION DAILY 05/03/21 10/05/21 09/13/21 History 62.5 mcg-vilant 25 mcg inhalat.powder (Trelegy Ellipta) omalizumab 150 mg subcutaneous 300 mg SUBCUT Q2W 05/03/21 10/05/21 Unknown History solution (Xolair) albuterol sulfate 2.5 mg INHALATION Q4H PRN 08/09/21 10/05/21 Unknown History montelukast 10 mg tablet 1 tab PO DAILY 08/09/21 10/05/21 09/13/21 History amiodarone 200 mg tablet 200 mg DAILY 09/13/21 10/05/21 Unknown History furosemide 20 mg tablet 60 mg PO DAILY 09/13/21 10/05/21 09/12/21 History mupirocin 2 % topical ointment 1 applic TOPICAL BID-TID 09/13/21 10/05/21 09/13/21 History Physical Exam Vital Signs and Narrative: Vital Signs: Last Vital Signs Temp 98.8 F 10/05/21 22:13 Pulse 94 10/05/21 22:13 Resp 15 10/05/21 22:13 BP 92/54 L 10/05/21 22:13 Pulse Ox 100 10/05/21 22:13 BMI result Body Mass Index 33.2 Gen: Appears be in no acute distress HEENT: NCAT, Moist mucosa. Pulmonary: Vesicular breath sounds, fair air entry CVS: Normal S1-S2 Abdomen: BS+, Soft, Nontender Extremities: Warm well perfused; bilateral legs are swollen/chronic lymphedema; right leg is more swollen than left leg. Right leg has boggy sensation on the distal 3rd of the leg. No obvious discharge noted. Images shown below. Neuro: Alert and awake. Results Labs CBC and Chem 7: 10/05/21 18:37 10/05/21 18:37 Labs: Laboratory Results - last 24 hr 10/05/21 10/05/21 10/05/21 18:37 18:37 18:37 MCV 91.7 MCH 27.9 MCHC 30.4 L RDW 15.9 Plt Count 206 D MPV 11.3 Immature Gran % (Auto) Cancelled Neut % (Auto) Cancelled Lymph % (Auto) Cancelled Smyth % (Auto) Cancelled Eos % (Auto) Cancelled Baso % (Auto) Cancelled Lymph # (Auto) Cancelled Smyth # (Auto) Cancelled Eos # (Auto) Cancelled Baso # (Auto) Cancelled Abs Immat Gran (auto) Cancelled Absolute Neuts (auto) Cancelled Absolute Nucleated RBC 0.000 Nucleated RBC % (auto) 0.0 Neutrophils % (Manual) 76 H Band Neutrophils % 17 H Lymphocytes % (Manual) 2 L Monocytes % (Manual) 2 Metamyelocytes % 3 Abs Neuts (Manual) 19.9 H Lymphocytes # (Manual) 0.4 L Monocytes # (Manual) 0.4 Metamyelocytes # 0.6 Toxic Vacuolation PRESENT Dohle Bodies PRESENT Platelet Estimate NORMAL Plt Morphology Comment NORMAL RBC Morphology NOTED Polychromasia 1+ (0-2) Hypochromasia 1+ (5-14) Stomatocytes 1+ (5-14) Schistocytes 1+ (0-2) Smear Tech's Comments MANUAL DIFF PT INR APTT Anion Gap 12 Estim Creat Clear Calc 19.9 Estimated GFR 20 Random Glucose 65 Lactic Acid 1.6 Calcium 8.3 L Total Bilirubin 0.7 AST 16 ALT < 6 Alkaline Phosphatase 77 D Total Protein 7.9 Albumin 2.7 L Influenza Type A (PCR) Influenza Type B (PCR) RSV RNA Qual (PCR) SARS-CoV-2 RNA (RT-PCR) 10/05/21 10/05/21 18:37 18:37 MCV MCH MCHC RDW Plt Count MPV Immature Gran % (Auto) Neut % (Auto) Lymph % (Auto) Smyth % (Auto) Eos % (Auto) Baso % (Auto) Lymph # (Auto) Smyth # (Auto) Eos # (Auto) Baso # (Auto) Abs Immat Gran (auto) Absolute Neuts (auto) Absolute Nucleated RBC Nucleated RBC % (auto) Neutrophils % (Manual) Band Neutrophils % Lymphocytes % (Manual) Monocytes % (Manual) Metamyelocytes % Abs Neuts (Manual) Lymphocytes # (Manual) Monocytes # (Manual) Metamyelocytes # Toxic Vacuolation Dohle Bodies Platelet Estimate Plt Morphology Comment RBC Morphology Polychromasia Hypochromasia Stomatocytes Schistocytes Smear Tech's Comments PT 50.7 H INR 4.3 H D APTT 52.7 H Anion Gap Estim Creat Clear Calc Estimated GFR Random Glucose Lactic Acid Calcium Total Bilirubin AST ALT Alkaline Phosphatase Total Protein Albumin Influenza Type A (PCR) NEGATIVE Influenza Type B (PCR) NEGATIVE RSV RNA Qual (PCR) NEGATIVE SARS-CoV-2 RNA (RT-PCR) NEGATIVE Imaging Radiologist's Impressions: Impressions Chest X-Ray 10/05/21 21:15 IMPRESSION: * No radiographic evidence of pneumonia. * The lungs are suboptimally evaluated due to the degree of hypoinflation. * There is cardiomegaly. Mild pulmonary vascular congestion is suspected. The chest remains similar in appearance compared to prior from 09/13/2021. 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 Patient blood pressure on presentation was 76/45; febrile to 100.8 F; lactate was 1.8, leukocytosis elevated 21; Patient was given 30 cc/kg IV fluids in the ER; blood pressure improved to 92/54. Patient was also given midodrine which she takes at home. Empirically started on IV vancomycin and Zosyn. Follow-up cultures Recurrent leg cellulitis: Bilateral legs has chronic lymphedema; right leg is more swollen than left leg. CT scan of the right leg ->Diffuse skin thickening present throughout the right lower extremity, particularly from the level of the mid tib-fib and distally compatible with cellulitis Continue antibiotics as mentioned above Id consult for further recommendations Diarrhea: Abdominal exam benign. Will obtain stool studies including C diff a CT abdomen-> showed no acute intra-abdominal process. History of hypothyroidism: Continue home levothyroxine History of COPD/pulmonary hypertension: Jeremie [email or web address] History of chronic AFib: INR 4.1 on presentation. Hold Coumadin for now. Hold home diltiazem given blood pressure on the soft side. History of CKD: Patient baseline creatinine around 2. Monitor renal function. History of CHF: Patient on Lasix 60 mg. Patient blood pressure on presentation was on the lower side. Hold home Lasix for now. Patient received 2.7 L of fluid in the ER secondary to hypotension. Monitor for fluid overload. Currently breathing well. History of orthostatic hypotension: Continue home midodrine. DVT prophylaxis: Patient on Coumadin Code status: Full code Quality Stroke Does the patient have a stroke diagnosis?: No VTE Prior VTE?: No VTE Risk Level:: Medical - moderate - high VTE Device Contraindication: Treatment Not Indicated VTE Drug Contraindication: N/A - Med Ordered
--- NOTE | 2021-10-05 22:57 | PHA.PROG ---
Admission Date/Time: October 05, 2021 22:45 Indication: Weight in k.7 kg Adjusted body weight in Kg: [place] body weight in Kg: Obesity Dosing Indication % IBW: Serum Creatinine - Last 168 Hours 10/05/21 18:37 Creatinine 2.37 H Estimated CrCl and GFR - Last 168 Hours 10/05/21 18:37 Estim Creat Clear Calc 19.9 Estimated GFR 20 Vancomycin Loading Dose: Current Vancomycin Dosing Regimen: Vancomycin Monitoring using AUC goal of 400 - 600 range with trough as surrogate marker: Date and Time for next Vancomycin Level to be drawn: Pharmacist Comments on Vancomycin Plan: 750 mg q24h, trough before 3rd dose, may need to decrease to 500 mg q24h Vancomycin dosing will take advantage of [employer] as a clinical decision support tool that uses Bayesian modeling to calculate individual patient's pharmacokinetic parameters and forecast the patient's drug concentration time course with the target goal AUC 24 range of 400 - 600 mg/L/hr.
[2021-10-06] VITALS (13 sets, daily range): BP systolic 81–116; BP diastolic 49–76; PULSE 86–100; RESP 15–21; TEMP 36.2–37.2; O2SAT 98–100
--- NOTE | 2021-10-06 00:34 | PC.NURSE ---
Unable to give Bactroban d/t med not being stocked in ER and unable to obtain at the moment.
[2021-10-06] MEDS: 0.9 % Sodium Chloride Flush 3 ML SYRINGE IVFLUSH ×4 (01:52→20:27)
[2021-10-06] MEDS: Piperacillin Sodium/Tazobactam 2.25 GM in 0.9 % Sodium Chloride 50 ML IV ×3 (03:07→18:40)
--- NOTE | 2021-10-06 04:48 | PC.NURSE ---
Pt has severe bilateral lower leg cellulitis and swelling. Pedal pulses are palpable and feet are warm and perfusing.
[2021-10-06] MEDS: Levothyroxine Sodium 50 MCG TABLET PO (05:52)
[2021-10-06] MEDS: Omeprazole 20 MG CAPSULE.DR PO (05:52)
--- NOTE | 2021-10-06 06:31 | PC.NURSE ---
Pt urinated this morning on bed arnodl, pt has hx CKD did no urinate for about 24 hrs. Urine sample was obtained and sent to lab.
[2021-10-06 06:42] LABS: Appearance Urine HAZY; Color Urine YELLOW; Glucose Urine UA NEG (NEG); Leukocyte Esterase Urine 1+ (NEG); Nitrite Urine NEG (NEG); Specific Gravity - Urine <= 1.005 (1.005-1.025); UACC Culture Trigger YES; Urine Blood 3+ (NEG); Urine Ketones NEG (NEG); Urine Protein NEG (NEG-TRACE)
[2021-10-06 06:56] LABS: Bacteria Urine 2+ /LPF; RBC Urine 30-49 /HPF (0); Squamous Epithelial Cell Urine 2+ /LPF; UACC CULT YES
[2021-10-06 07:05] LABS: MANUAL DIFF FLAG NO
--- NOTE | 2021-10-06 07:07 | PC.NURSE ---
Report given to Nery BURGESS
[2021-10-06 07:19] LABS: Basophils Absolute Auto 0.1 X10*3/uL (0.0-0.2); Basophils Percent Auto 0.4 % (0-2); Eosinophils Percent Auto 0.1 % (0-4); Hematocrit 30.7 % (37.0-47.0); Imm Gran Abs Auto 0.19 X10*3/uL (0.00-0.03); Imm Gran Pct Auto 1.1 % (0.0-0.4); Lymphocytes Absolute Auto 1.1 X10*3/uL (1.2-4.9); Lymphocytes Percent Auto 6.4 % (20-40); Mean Corpuscular HGB Conc 29.3 g/dl (31.0-35.0); Mean Corpuscular Hemoglobin 27.5 pg (27.0-33.0); Mean Corpuscular Volume 93.9 fL (80.0-98.0); Mean Platelet Volume 11.9 fL (9.4-12.3); Monocytes Absolute Auto 0.7 X10*3/uL (0.1-1.2); Monocytes Percent Auto 4.3 % (2-11); Neutrophils Absolute Auto 14.9 x10*3/uL (2.0-8.3); Neutrophils Percent Auto 87.7 % (45-73); Platelet Count 159 X10*3/uL (160-400); Red Blood Count 3.27 X10*6/uL (4.20-5.50); Red Cell Distribution Width 15.9 % (11.0-16.0)
[2021-10-06 07:43] LABS: Anion Gap 12 (12-20); Blood Urea Nitrogen 27 mg/dL (9-16); Calcium 7.8 mg/dL (8.4-10.2); Carbon Dioxide 25 mmol/L (22-29); Chloride 106 mmol/L (96-108); Creatinine Clr Calc Pharmacy 20.4; Estimated Glomerular Filt Rate 20; Glucose Random 63 mg/dL (60-115); Potassium 4.8 mmol/L (3.3-5.1); Sodium 138 mmol/L (135-145)
[2021-10-06] MEDS: Fluticasone/Vilanterol 100/25 BLST.W.DEV 1 PUFF INHALE ×2 (09:25→13:03)
--- NOTE | 2021-10-06 10:46 | HE.PHANOTE ---
Updated model to obese model. changed to 750 mg q48 hr, predicted auc is 412 will put in level for 10/09 @1800
[2021-10-06] MEDS: Amiodarone HCL 200 MG TABLET PO (11:32)
[2021-10-06] MEDS: Loratadine 10 MG TABLET PO (11:32)
[2021-10-06] MEDS: Midodrine HCl 5 MG TABLET PO ×3 (11:32→20:26)
[2021-10-06] MEDS: Ferrous Sulfate 324 MG TABLET.DR PO (11:32)
[2021-10-06] MEDS: Acetaminophen 325 MG TABLET 650 MG PO (13:02)
[2021-10-06] MEDS: Clotrimazole 1 % Cream 15 GM TUBE 1 APPL TOPICAL ×2 (13:32→20:28)
--- NOTE | 2021-10-06 14:29 | P.PNIM_ITS ---
Subjective Subjective Date of Service: 10/06/21 Interval History: cc: leg swelling pain interval history:still with pain Cardiovascular Cardiovascular: Reports no additional cardiovascular complaints Gastrointestinal Gastrointestinal: Reports no additional gastrointestinal complaints Physical Exam Vital Signs: Vital Signs: Last Vital Signs Temp 98.0 F 10/06/21 11:58 Pulse 87 10/06/21 11:58 Resp 20 10/06/21 11:58 BP 95/56 L 10/06/21 11:58 Pulse Ox 98 10/06/21 11:58 BMI result Body Mass Index 33.2 General: AO X 3, no acute distress Resp: CTA bilateral, no accessory muscles used CVS: S1,S2,RRR GI: soft, non tender, non distended Neuro: motor grossly intact, alert Psych: appropriate affect, appropriate insight right le?left le erythema, warmth, swelling Objective Data Active Medications Acetaminophen (Acetaminophen 325 Mg Tablet) 650 mg PO Q6H PRN PRN Reason: Pain, Mild (Pain Scale 1-3) Last Admin: 10/06/21 13:02 Dose: 650 mg Documented by: VIVIAN Albuterol Sulfate (Albuterol Sulfate (0.083%) 2.5 Mg/3 Ml Vial.Neb) 2.5 mg IN MARCUM Q4H PRN PRN Reason: Shortness Of Breath Amiodarone HCl (Amiodarone Hcl 200 Mg Tablet) 200 mg PO DAILY [facility] Last Admin: 10/06/21 11:32 Dose: 200 mg Documented by: VIVIAN Clotrimazole (Clotrimazole 1 % Cream 15 Gm Tube) 1 appl TOPICAL BID [facility]; Protocol Last Admin: 10/06/21 13:32 Dose: 1 appl Documented by: DIANA Ferrous Sulfate (Ferrous Sulfate 324 Mg Tablet.Dr) 324 mg PO DAILY [facility] Last Admin: 10/06/21 11:32 Dose: 324 mg Documented by: VIVIAN Fluticasone/Vilanterol (Fluticasone/Vilanterol 100/25 Blst.W.Dev) 1 puff INHALE RDAILY [facility] Last Admin: 10/06/21 13:03 Dose: 1 puff Documented by: VIVIAN Piperacillin Sod/Tazobactam (Sod 2.25 gm/ Sodium Chloride) 50 mls @ 100 mls/hr IV Q8H [facility] Last Infusion: 10/06/21 13:34 Dose: 0 mls/hr Documented by: DIANA Vancomycin HCl 750 mg/ Sodium (Chloride) 265 mls @ 265 mls/hr IV Q48H [facility] Levothyroxine Sodium (Levothyroxine Sodium 50 Mcg Tablet) 50 mcg PO DAILY@629 [facility] Last Admin: 10/06/21 05:52 Dose: 50 mcg Documented by: MARII Loratadine (Loratadine 10 Mg Tablet) 10 mg PO DAILY [facility] Last Admin: 10/06/21 11:32 Dose: 10 mg Documented by: VIVIAN Melatonin (Melatonin 3 Mg Tablet) 6 mg PO BEDTIME PRN PRN Reason: Insomnia Midodrine (Midodrine Hcl 5 Mg Tablet) 5 mg PO TID [facility] Last Admin: 10/06/21 11:32 Dose: 5 mg Documented by: VIVIAN Mupirocin (Mupirocin 1 Gm Oint...G.) 1 gm TOPICAL BID [facility] Omeprazole (Omeprazole 20 Mg Capsule.) 20 mg PO DAILY@629 [facility] Last Admin: 10/06/21 05:52 Dose: 20 mg Documented by: MARII Pharmacy Consult (Consult Rx Vancomycin Dosing) 1 each MISCELLANE DAILY PRN PRN Reason: Consult order Senna (Sennosides 8.6 Mg Tablet) 17.2 mg PO BEDTIME PRN PRN Reason: Constipation Sodium Chloride (0.9 % Sodium Chloride Flush 3 Ml Syringe) 3 ml IVFLUSH QSHIFT [facility] Last Admin: 10/06/21 13:05 Dose: 3 ml Documented by: VIVIAN Tiotropium [place] (Tiotropium [place] 18 Mcg Cap.W.Dev) 1 puff INHALE RDAILY [facility] Last Admin: 10/06/21 09:25 Dose: 1 puff Documented by: HAYLEY Labs CBC & Chem 7: 10/06/21 06:48 10/06/21 06:48 Labs: Laboratory Results - last 24 hr 10/05/21 10/05/21 10/05/21 18:37 18:37 18:37 MCV 91.7 MCH 27.9 MCHC 30.4 L RDW 15.9 Plt Count 206 D MPV 11.3 Immature Gran % (Auto) Cancelled Neut % (Auto) Cancelled Lymph % (Auto) Cancelled [place] % (Auto) Cancelled Eos % (Auto) Cancelled Baso % (Auto) Cancelled Lymph # (Auto) Cancelled [place] # (Auto) Cancelled Eos # (Auto) Cancelled Baso # (Auto) Cancelled Abs Immat Gran (auto) Cancelled Absolute Neuts (auto) Cancelled Absolute Nucleated RBC 0.000 Nucleated RBC % (auto) 0.0 Neutrophils % (Manual) 76 H Band Neutrophils % 17 H Lymphocytes % (Manual) 2 L Monocytes % (Manual) 2 Metamyelocytes % 3 Abs Neuts (Manual) 19.9 H Lymphocytes # (Manual) 0.4 L Monocytes # (Manual) 0.4 Metamyelocytes # 0.6 Toxic Vacuolation PRESENT Dohle Bodies PRESENT Platelet Estimate NORMAL Plt Morphology Comment NORMAL RBC Morphology NOTED Polychromasia 1+ (0-2) Hypochromasia 1+ (5-14) Stomatocytes 1+ (5-14) Schistocytes 1+ (0-2) Smear Tech's Comments MANUAL DIFF PT INR APTT Anion Gap 12 Estim Creat Clear Calc 19.9 Estimated GFR 20 Random Glucose 65 Lactic Acid 1.6 Calcium 8.3 L Total Bilirubin 0.7 AST 16 ALT < 6 Alkaline Phosphatase 77 D Total Protein 7.9 Albumin 2.7 L Urine Color Urine Appearance Urine pH Ur Specific [place] Urine Protein Urine Glucose (UA) Urine Ketones Urine Blood Urine Nitrite Ur Leukocyte Esterase Urine RBC Urine WBC Ur Squamous Epith Cells Urine Bacteria Influenza Type A (PCR) Influenza Type B (PCR) RSV RNA Qual (PCR) SARS-CoV-2 RNA (RT-PCR) 10/05/21 10/05/21 10/06/21 18:37 18:37 06:36 MCV MCH MCHC RDW Plt Count MPV Immature Gran % (Auto) Neut % (Auto) Lymph % (Auto) [place] % (Auto) Eos % (Auto) Baso % (Auto) Lymph # (Auto) [place] # (Auto) Eos # (Auto) Baso # (Auto) Abs Immat Gran (auto) Absolute Neuts (auto) Absolute Nucleated RBC Nucleated RBC % (auto) Neutrophils % (Manual) Band Neutrophils % Lymphocytes % (Manual) Monocytes % (Manual) Metamyelocytes % Abs Neuts (Manual) Lymphocytes # (Manual) Monocytes # (Manual) Metamyelocytes # Toxic Vacuolation Dohle Bodies Platelet Estimate Plt Morphology Comment RBC Morphology Polychromasia Hypochromasia Stomatocytes Schistocytes Smear Tech's Comments PT 50.7 H INR 4.3 H D APTT 52.7 H Anion Gap Estim Creat Clear Calc Estimated GFR Random Glucose Lactic Acid Calcium Total Bilirubin AST ALT Alkaline Phosphatase Total Protein Albumin Urine Color YELLOW Urine Appearance HAZY Urine pH 6.0 Ur Specific [place] <= 1.005 Urine Protein NEG Urine Glucose (UA) NEG Urine Ketones NEG Urine Blood 3+ H Urine Nitrite NEG Ur Leukocyte Esterase 1+ H Urine RBC 30-49 H Urine WBC 1-4 Ur Squamous Epith Cells 2+ Urine Bacteria 2+ Influenza Type A (PCR) NEGATIVE Influenza Type B (PCR) NEGATIVE RSV RNA Qual (PCR) NEGATIVE SARS-CoV-2 RNA (RT-PCR) NEGATIVE 10/06/21 10/06/21 06:48 06:48 MCV 93.9 MCH 27.5 MCHC 29.3 L RDW 15.9 Plt Count 159 L MPV 11.9 Immature Gran % (Auto) 1.1 H Neut % (Auto) 87.7 H Lymph % (Auto) 6.4 L [place] % (Auto) 4.3 Eos % (Auto) 0.1 Baso % (Auto) 0.4 Lymph # (Auto) 1.1 L [place] # (Auto) 0.7 Eos # (Auto) 0.0 Baso # (Auto) 0.1 Abs Immat Gran (auto) 0.19 H Absolute Neuts (auto) 14.9 H Absolute Nucleated RBC 0.000 Nucleated RBC % (auto) 0.0 Neutrophils % (Manual) Band Neutrophils % Lymphocytes % (Manual) Monocytes % (Manual) Metamyelocytes % Abs Neuts (Manual) Lymphocytes # (Manual) Monocytes # (Manual) Metamyelocytes # Toxic Vacuolation Dohle Bodies Platelet Estimate Plt Morphology Comment RBC Morphology Polychromasia Hypochromasia Stomatocytes Schistocytes Smear Tech's Comments PT INR APTT Anion Gap 12 Estim Creat Clear Calc 20.4 Estimated GFR 20 Random Glucose 63 Lactic Acid Calcium 7.8 L D Total Bilirubin AST ALT Alkaline Phosphatase Total Protein Albumin Urine Color Urine Appearance Urine pH Ur Specific [place] Urine Protein Urine Glucose (UA) Urine Ketones Urine Blood Urine Nitrite Ur Leukocyte Esterase Urine RBC Urine WBC Ur Squamous Epith Cells Urine Bacteria Influenza Type A (PCR) Influenza Type B (PCR) RSV RNA Qual (PCR) SARS-CoV-2 RNA (RT-PCR) Assessment and Plan (1) Bilateral cellulitis of lower leg: Status: Acute Plan 81F presented with le sweeling, erythema severe sepsis due to R>L cellulitis Continue vancomycin Zosyn, follow-up cultures, follow-up Infectious Disease Patient continues to have low normal blood pressures, however this isn't consistent to her baseline low blood pressures and she is on midodrine at home. Diarrhea Follow-up C diff Hypothyroid Synthroid COPD Bronchodilators as needed Chronic atrial fibrillation Holding diltiazem for hypotension, continue Coumadin once INR back in therapeutic range CKD 3 Stable, monitor Chronic diastolic CHF hold lasix for hypotension Full code reason for continued hospitalization: Patient with infection with severe sepsis, continue IV antibiotics and plan to closely monitor for progression vs imp rovement, patient at risk for further decline due to advanced age, chronic kidney disease. Quality Stroke Does the patient have a stroke diagnosis?: No VTE Prior VTE?: No VTE Risk Level:: Medical - moderate - high VTE Device Contraindication: Treatment Not Indicated VTE Drug Contraindication: N/A - Med Ordered
--- NOTE | 2021-10-06 14:30 | MHC.CM.PN ---
Met with pt using clerk general office to discuss d/c planning needs: pt resides alone, has 2x weekly RN visits through [facility] and daily compensated [employer] services provided by her son Jasper. Pt has a walker and scooter. HCP on file and verified: IMM in chart: [facility] x 2. D/C plan is for a return to home with existing services. Pt requests BLS transport Pt has a PT-1 for transportation but states her legs hurt too badly for w/c transportation and requests BLS. CM to follow.
--- NOTE | 2021-10-06 15:20 | PC.NURSE ---
report given to RN.
--- NOTE | 2021-10-06 16:36 | P.CNID_ITS ---
History of Present Illness Data of Consult Service Date: 10/06/21 Requesting physician: Wayne Fields Primary Care Provider: Laxmi Gutierrez MD HPI Reason for consult: cellulitis She arrives with two days of heat and swelling of legs and temperature to 100.8 She has no fever or chills. She has no recent procedures. Review of Systems Review of Systems: Yes all other systems are reviewed and are negative [facility] Past Medical History Medical History Acute on chronic right heart failure Afib Asthma Cellulitis of right leg CHF (congestive heart failure) HTN (hypertension) Hypothyroid Idiopathic hypotension Lymphedema Non-healing wound of right lower extremity Pulmonary hypertension Sepsis Tricuspid valve regurgitation Venous stasis dermatitis of right lower extremity Family History Family History Mother Gastric cancer Surgical History Surgical History S/P hip replacement Social History Social History Household Members: None Housing: Apartment Do you presently have visiting nurse or other home services: Yes Alcohol intake: never Patient Tobacco Use Status: Never used Tobacco Second Hand Smoke Exposure: No Advance Directives: Yes Advance Directives on File: Yes Advance Directives Date on File: 02/05/21 service: No Current occupational status: disabled Meds Allergies Allergy/AdvReac Type Severity Reaction Status Date / Time lisinopril [LISINOPRIL] Allergy Unknown UNKNOWN Verified 02/05/21 21:56 simvastatin [SIMVASTATIN] Allergy Unknown UNKNOWN Verified 02/05/21 21:56 Active Medications: Current Medications Acetaminophen (Acetaminophen 325 Mg Tablet) 650 mg PO Q6H PRN PRN Reason: Pain, Mild (Pain Scale 1-3) Last Admin: 10/06/21 13:02 Dose: 650 mg Documented by: Albuterol Sulfate (Albuterol Sulfate (0.083%) 2.5 Mg/3 Ml Vial.Neb) 2.5 mg INHALE Q4H PRN PRN Reason: Shortness Of Breath Amiodarone HCl (Amiodarone Hcl 200 Mg Tablet) 200 mg PO DAILY [facility] Last Admin: 10/06/21 11:32 Dose: 200 mg Documented by: Clotrimazole (Clotrimazole 1 % Cream 15 Gm Tube) 1 appl TOPICAL BID [facility]; Protocol Last Admin: 10/06/21 13:32 Dose: 1 appl Documented by: Ferrous Sulfate (Ferrous Sulfate 324 Mg Tablet.) 324 mg PO DAILY [facility] Last Admin: 10/06/21 11:32 Dose: 324 mg Documented by: Fluticasone/Vilanterol (Fluticasone/Vilanterol 100/25 Blst.W.Dev) 1 puff INHALE RDAILY [facility] Last Admin: 10/06/21 13:03 Dose: 1 puff Documented by: Piperacillin Sod/Tazobactam (Sod 2.25 gm/ Sodium Chloride) 50 mls @ 100 mls/hr IV Q8H [facility] Last Infusion: 10/06/21 13:34 Dose: Infused Documented by: Vancomycin HCl 750 mg/ Sodium (Chloride) 265 mls @ 265 mls/hr IV Q48H [facility] Levothyroxine Sodium (Levothyroxine Sodium 50 Mcg Tablet) 50 mcg PO DAILY@0630 [facility] Last Admin: 10/06/21 05:52 Dose: 50 mcg Documented by: Loratadine (Loratadine 10 Mg Tablet) 10 mg PO DAILY [facility] Last Admin: 10/06/21 11:32 Dose: 10 mg Documented by: Melatonin (Melatonin 3 Mg Tablet) 6 mg PO BEDTIME PRN PRN Reason: Insomnia Midodrine (Midodrine Hcl 5 Mg Tablet) 5 mg PO TID [facility] Last Admin: 10/06/21 11:32 Dose: 5 mg Documented by: Mupirocin (Mupirocin 1 Gm Oint...G.) 1 gm TOPICAL BID [facility] Omeprazole (Omeprazole 20 Mg Capsule.) 20 mg PO DAILY@0630 [facility] Last Admin: 10/06/21 05:52 Dose: 20 mg Documented by: Pharmacy Consult (Consult Rx Vancomycin Dosing) 1 each MISCELLANE DAILY PRN PRN Reason: Consult order Senna (Sennosides 8.6 Mg Tablet) 17.2 mg PO BEDTIME PRN PRN Reason: Constipation Sodium Chloride (0.9 % Sodium Chloride Flush 3 Ml Syringe) 3 ml IVFLUSH QSHIFT [facility] Last Admin: 10/06/21 13:05 Dose: 3 ml Documented by: Tiotropium [place] (Tiotropium [place] 18 Mcg Cap.W.Dev) 1 puff INHALE RDAILY [facility] Last Admin: 10/06/21 09:25 Dose: 1 puff Documented by: Home Medications Medication Instructions Recorded Confirmed Last Taken Type calcium carbonate 600 mg-vitamin 1 tab PO BID 02/04/21 10/05/21 09/13/21 History D3 10 mcg (400 unit) tablet cholecalciferol (vitamin D3) 50 50 mcg PO DAILY 02/04/21 10/05/21 09/13/21 History mcg (2,000 unit) capsule (Vitamin D3) diltiazem HCl 120 mg capsule,24 120 mg PO BID 02/04/21 10/05/21 09/13/21 History hr,extended release ferrous sulfate 325 mg (65 mg 325 mg PO DAILY 02/04/21 10/05/21 09/13/21 History iron) tablet (FeroSul) levothyroxine 50 mcg tablet 50 mcg PO DAILY 02/04/21 10/05/21 09/13/21 History loratadine 10 mg tablet 10 mg PO DAILY 02/04/21 10/05/21 09/13/21 History midodrine 5 mg tablet 5 mg PO TID 02/04/21 10/05/21 09/13/21 History omeprazole 20 mg capsule,delayed 20 mg PO DAILY@0630 02/04/21 10/05/21 09/13/21 History release warfarin 2.5 mg tablet 2.5 mg PO DAILY 02/04/21 10/05/21 09/12/21 History fluticasone fur. 100 mcg-umeclid 1 puff INHALATION DAILY 05/03/21 10/05/21 09/13/21 History 62.5 mcg-vilant 25 mcg inhalat.powder (Trelegy Ellipta) omalizumab 150 mg subcutaneous 300 mg SUBCUT Q2W 05/03/21 10/05/21 Unknown History solution (Xolair) albuterol sulfate 2.5 mg INHALATION Q4H PRN 08/09/21 10/05/21 Unknown History montelukast 10 mg tablet 1 tab PO DAILY 08/09/21 10/05/21 09/13/21 History amiodarone 200 mg tablet 200 mg DAILY 09/13/21 10/05/21 Unknown History furosemide 20 mg tablet 60 mg PO DAILY 09/13/21 10/05/21 09/12/21 History mupirocin 2 % topical ointment 1 applic TOPICAL BID-TID 09/13/21 10/05/21 09/13/21 History Physical Exam Vital Signs: Vital Signs: Last Vital Signs Temp 98.8 F 10/06/21 16:03 Pulse 90 10/06/21 16:03 Resp 20 10/06/21 11:58 BP 81/60 L 10/06/21 16:03 Pulse Ox 100 10/06/21 16:03 BMI result Body Mass Index 33.2 Const: General: cooperative Eyes: General: appearance normal, both eyes and all related structures Resp: Effort & Inspection: normal respiratory effort Cardio: Rate: regular rate Rhythm: regular rhythm GI: Palpation (GI): Soft to palpation and nontender Extrem: Other: bilateral redness LE Results Labs CBC & Chem 7: 10/06/21 06:48 10/06/21 06:48 Labs: Short CBC 10/05/21 10/06/21 Range/Units 18:37 06:48 WBC 21.4 H 17.0 H (4.8-10.8) X10*3/uL Hgb 9.8 L 9.0 L (12.0-16.0) g/dl Hct 32.2 L 30.7 L (37.0-47.0) % Plt Count 206 D 159 L (160-400) X10*3/uL BMP 10/05/21 10/06/21 18:37 06:48 Sodium 135 138 Potassium 5.0 4.8 Chloride 101 106 Carbon Dioxide 27 25 BUN 25 H 27 H Creatinine 2.37 H 2.31 H Calcium 8.3 L 7.8 L D Liver Function 10/05/21 Range/Units 18:37 Total Bilirubin 0.7 (0.0-1.0) mg/dL AST 16 (5-31) U/L ALT < 6 (0-31) U/L Alkaline Phosphatase 77 D (39-117) U/L Albumin 2.7 L (3.5-5.0) g/dL Urine 10/06/21 Range/Units 06:36 Urine Color YELLOW Urine Appearance HAZY Urine pH 6.0 (5.0-8.0) Ur Specific [place] <= 1.005 (1.005-1.025) Urine Protein NEG (NEG-TRACE) MG/DL Urine Glucose (UA) NEG (NEG) MG/DL Assessment and Plan (1) Bilateral cellulitis of lower leg: Status: Acute possible staph or strep or gram negative Plan Continue Zosyn and Vancomycin Await cultures
[2021-10-07] VITALS (7 sets, daily range): BP systolic 96–123; BP diastolic 52–70; PULSE 86–98; RESP 14–19; TEMP 36.1–37.2; O2SAT 93–100
[2021-10-07] MEDS: Piperacillin Sodium/Tazobactam 2.25 GM in 0.9 % Sodium Chloride 50 ML IV ×3 (03:25→18:46)
[2021-10-07] MEDS: Omeprazole 20 MG CAPSULE.DR PO (04:46)
[2021-10-07] MEDS: Levothyroxine Sodium 50 MCG TABLET PO (04:46)
[2021-10-07 06:24] LABS: Hematocrit 30.3 % (37.0-47.0); Mean Corpuscular HGB Conc 29.7 g/dl (31.0-35.0); Mean Corpuscular Volume 94.4 fL (80.0-98.0); Mean Platelet Volume 11.6 fL (9.4-12.3); PLT CLUMP 1; Red Blood Count 3.21 X10*6/uL (4.20-5.50)
[2021-10-07 06:28] LABS: White Blood Count 12.2 X10*3/uL (4.8-10.8)
[2021-10-07 06:42] LABS: Anion Gap 13 (12-20); Blood Urea Nitrogen 31 mg/dL (9-16); Calcium 8.2 mg/dL (8.4-10.2); Carbon Dioxide 25 mmol/L (22-29); Chloride 106 mmol/L (96-108); Creatinine Clr Calc Pharmacy 21.6; Estimated Glomerular Filt Rate 22; Potassium 4.8 mmol/L (3.3-5.1); Sodium 139 mmol/L (135-145)
[2021-10-07 06:46] LABS: Glucose Fasting 59 mg/dL (60-99)
[2021-10-07 07:08] LABS: INTERNATIONAL NORM RATIO 4.9 (0.9-1.1); Prothrombin Time 57.8 SEC (9.9-13.0)
[2021-10-07] MEDS: Acetaminophen 325 MG TABLET 650 MG PO (08:03)
[2021-10-07] MEDS: Ferrous Sulfate 324 MG TABLET.DR PO (08:03)
[2021-10-07] MEDS: Clotrimazole 1 % Cream 15 GM TUBE 1 APPL TOPICAL ×2 (08:04→21:35)
[2021-10-07] MEDS: 0.9 % Sodium Chloride Flush 3 ML SYRINGE IVFLUSH ×3 (08:04→23:49)
[2021-10-07] MEDS: Midodrine HCl 5 MG TABLET PO ×3 (08:04→21:30)
[2021-10-07] MEDS: Amiodarone HCL 200 MG TABLET PO (08:04)
[2021-10-07] MEDS: Loratadine 10 MG TABLET PO (08:04)
--- NOTE | 2021-10-07 09:28 | HE.PHANOTE ---
Vancomycin Dosing Addendum Continue with Current regimen. One time dose of 1000 mg given on 10/05/21. random level for tonight at 1800.
--- NOTE | 2021-10-07 11:47 | HO.PM.IMPN ---
Subjective Subjective Date of Service: 10/07/21 Interval History: cc: leg pain interval history:still with pain, edema improving Respiratory Respiratory: Reports no additional respiratory complaints Gastrointestinal Gastrointestinal: Reports no additional gastrointestinal complaints Physical Exam Vital Signs: Vital Signs: Last Vital Signs Temp 97.9 F 10/07/21 11:03 Pulse 86 10/07/21 11:03 Resp 17 10/07/21 11:03 BP 96/52 L 10/07/21 11:03 Pulse Ox 100 10/07/21 11:03 BMI result Body Mass Index 33.2 Const General:?cooperative Eyes General:?appearance normal, both eyes and all related structures Resp Effort & Inspection:?normal respiratory effort Cardio Rate:?regular rate Rhythm:?regular rhythm GI Palpation (GI):?Soft to palpation and nontender Extrem Other: bilateral redness LE Objective Data Active Medications Acetaminophen (Acetaminophen 325 Mg Tablet) 650 mg PO Q6H PRN PRN Reason: Pain, Mild (Pain Scale 1-3) Last Admin: 10/07/21 08:03 Dose: 650 mg Documented by: SAPPHIRE Albuterol Sulfate (Albuterol Sulfate (0.083%) 2.5 Mg/3 Ml Vial.Neb) 2.5 mg INHALE Q4H PRN PRN Reason: Shortness Of Breath Amiodarone HCl (Amiodarone Hcl 200 Mg Tablet) 200 mg PO DAILY [facility] Last Admin: 10/07/21 08:04 Dose: 200 mg Documented by: SAPPHIRE Clotrimazole (Clotrimazole 1 % Cream 15 Gm Tube) 1 appl TOPICAL BID [facility]; Protocol Last Admin: 10/07/21 08:04 Dose: 1 appl Documented by: SAPPHIRE Ferrous Sulfate (Ferrous Sulfate 324 Mg Tablet.Dr) 324 mg PO DAILY [facility] Last Admin: 10/07/21 08:03 Dose: 324 mg Documented by: SAPPHIRE Fluticasone/Vilanterol (Fluticasone/Vilanterol 100/25 Blst.W.Dev) 1 puff INHALE RDAILY [facility] Last Admin: 10/06/21 13:03 Dose: 1 puff Documented by: VIVIAN Piperacillin Sod/Tazobactam (Sod 2.25 gm/ Sodium Chloride) 50 mls @ 100 mls/hr IV Q8H [facility] Last Infusion: 10/07/21 04:06 Dose: 0 mls/hr Documented by: LYLE Vancomycin HCl 750 mg/ Sodium (Chloride) 265 mls @ 265 mls/hr IV Q48H [facility] Levothyroxine Sodium (Levothyroxine Sodium 50 Mcg Tablet) 50 mcg PO DAILY@0630 [facility] Last Admin: 10/07/21 04:46 Dose: 50 mcg Documented by: LYLE Loratadine (Loratadine 10 Mg Tablet) 10 mg PO DAILY [facility] Last Admin: 10/07/21 08:04 Dose: 10 mg Documented by: SAPPHIRE Melatonin (Melatonin 3 Mg Tablet) 6 mg PO BEDTIME PRN PRN Reason: Insomnia Midodrine (Midodrine Hcl 5 Mg Tablet) 5 mg PO TID [facility] Last Admin: 10/07/21 08:04 Dose: 5 mg Documented by: SAPPHIRE Mupirocin (Mupirocin 1 Gm Oint...G.) 1 gm TOPICAL BID [facility] Last Admin: 10/07/21 08:04 Dose: 1 gm Documented by: SAPPHIRE Omeprazole (Omeprazole 20 Mg Capsule.Dr) 20 mg PO DAILY@629 [facility] Last Admin: 10/07/21 04:46 Dose: 20 mg Documented by: LYLE Pharmacy Consult (Consult Rx Vancomycin Dosing) 1 each MISCELLANE DAILY PRN PRN Reason: Consult order Senna (Sennosides 8.6 Mg Tablet) 17.2 mg PO BEDTIME PRN PRN Reason: Constipation Sodium Chloride (0.9 % Sodium Chloride Flush 3 Ml Syringe) 3 ml IVFLUSH QSHIFT [facility] Last Admin: 10/07/21 08:04 Dose: 3 ml Documented by: SAPPHIRE Tiotropium [place] (Tiotropium [place] 18 Mcg Cap.W.Dev) 1 puff INHALE RDAILY [facility] Last Admin: 10/07/21 07:47 Dose: 1 puff Documented by: NATHALIE Labs CBC & Chem 7: 10/07/21 05:27 10/07/21 05:27 Labs: Laboratory Results - last 24 hr 10/07/21 10/07/21 10/07/21 05:27 05:27 05:27 MCV 94.4 MCH 28.0 MCHC 29.7 L RDW 16.0 Plt Count TNP MPV 11.6 Absolute Nucleated RBC 0.000 Nucleated RBC % (auto) 0.0 PT 57.8 H INR 4.9 H Anion Gap 13 Estim Creat Clear Calc 21.6 Estimated GFR 22 Fasting Glucose 59 L* Calcium 8.2 L Microbiology Microbiology Results: Microbiology 10/06/21 Unknown Urine Culture - Final Urine clean catch - Urine tang top 10/05/21 19:03 Blood Culture - Preliminary Blood - Venous No growth after 24 hours. 10/05/21 18:37 Blood Culture - Preliminary Blood - Venous No growth after 24 hours. Assessment and Plan (1) Bilateral cellulitis of lower leg: Status: Acute Plan 81F presented with le sweeling, erythema severe sepsis due to R>L cellulitis Continue vancomycin Zosyn, cultures negative to date, ID isauro Patient continues to have low normal blood pressures, however this isn't consistent to her baseline low blood pressures and she is on midodrine at home. Diarrhea Follow-up C diff Hypothyroid Synthroid COPD Bronchodilators as needed Chronic atrial fibrillation Holding diltiazem for hypotension, continue Coumadin once INR back in therapeutic range CKD 3 Stable, monitor Chronic diastolic CHF hold lasix for hypotension Full code reason for continued hospitalization: Patient with infection with severe sepsis, continue IV antibiotics and plan to closely monitor for progression vs further improvement, patient at risk for further decline due to advanced age, chronic kidney disease. Quality Stroke Does the patient have a stroke diagnosis?: No VTE Prior VTE?: No VTE Risk Level:: Medical - moderate - high VTE Device Contraindication: Treatment Not Indicated VTE Drug Contraindication: N/A - Med Ordered
--- NOTE | 2021-10-07 15:04 | MHC.CM.PN ---
JITENDRA ([facility] TRANSITION OF CARE RN [phone]) UPDATED WITH PROGRESS. JITENDRA STATES THAT PATIENT MAY BENEFIT FROM IV ABX, RATHER THAN PO AT TIME OF DISCHARGE TO TO RECURRENT INFECTION. PATIENT'S COMIC BOOK DESIGNER THROUGH [facility] ([facility]) SAYS THAT PATIENT WILL HAVE AN OUTPATIENT LYMPHEDEMA APPOINTMENT MADE THROUGH PCP OFFICE
[2021-10-07 18:43] LABS: Vancomycin Trough 11.9 mcg/mL (10.0-20.0)
[2021-10-07] MEDS: vancomycin HCL 750 MG in 0.9 % Sodium Chloride 250 ML 265 MG IV (21:32)
[2021-10-08] MEDS: Piperacillin Sodium/Tazobactam 2.25 GM in 0.9 % Sodium Chloride 50 ML IV ×2 (03:34→13:45)
[2021-10-08 03:38] VITALS: BP 119/78; PULSE 95; RESP 18; TEMP 36.3; O2SAT 98
[2021-10-08 06:03] LABS: Hematocrit 32.4 % (37.0-47.0); Hemoglobin 9.5 g/dl (12.0-16.0); Mean Corpuscular HGB Conc 29.3 g/dl (31.0-35.0); Mean Corpuscular Hemoglobin 27.9 pg (27.0-33.0); Mean Corpuscular Volume 95.3 fL (80.0-98.0); Mean Platelet Volume 11.5 fL (9.4-12.3); PLT CLUMP 1; Red Cell Distribution Width 16.1 % (11.0-16.0)
[2021-10-08 06:05] LABS: White Blood Count 7.5 X10*3/uL (4.8-10.8)
[2021-10-08] MEDS: Omeprazole 20 MG CAPSULE.DR PO (06:08)
[2021-10-08] MEDS: Levothyroxine Sodium 50 MCG TABLET PO (06:08)
[2021-10-08 06:11] LABS: Prothrombin Time 58.5 SEC (9.9-13.0)
[2021-10-08 06:30] LABS: Anion Gap 11 (12-20); Blood Urea Nitrogen 26 mg/dL (9-16); Calcium 8.2 mg/dL (8.4-10.2); Carbon Dioxide 27 mmol/L (22-29); Chloride 106 mmol/L (96-108); Estimated Glomerular Filt Rate 26; Glucose Fasting 85 mg/dL (60-99); Potassium 4.6 mmol/L (3.3-5.1); Sodium 139 mmol/L (135-145)
--- NOTE | 2021-10-08 06:46 | PC.NURSE ---
FILER FINISH CALLED UNIT AT 0617 WITH INR VALUE OF 5.0, REPORTED TO HOSPITALIST VIA TIGER TEXT, NOTED HE READ IT WITH NO NEW ORDERS. YESTERDAYS VALUE AT 4.9. PT WITH N0 S/SX ACTIVE BLEEDING
[2021-10-08 07:54] VITALS: BP 114/65; PULSE 87; RESP 18; TEMP 36.1; O2SAT 97
[2021-10-08] MEDS: Fluticasone/Vilanterol 100/25 BLST.W.DEV 1 PUFF INHALE (07:58)
[2021-10-08 08:01] VITALS: PULSE 78; RESP 20; O2SAT 94
--- NOTE | 2021-10-08 08:34 | HE.PHANOTE ---
Vancomycin Based on am labs dose staying at 750 q 48. next trough 10/09 @ 1800
[2021-10-08] MEDS: Amiodarone HCL 200 MG TABLET PO (09:37)
[2021-10-08] MEDS: Midodrine HCl 5 MG TABLET PO ×2 (09:37→13:45)
[2021-10-08] MEDS: Loratadine 10 MG TABLET PO (09:37)
[2021-10-08] MEDS: Ferrous Sulfate 324 MG TABLET.DR PO (09:37)
[2021-10-08] MEDS: 0.9 % Sodium Chloride Flush 3 ML SYRINGE IVFLUSH (09:37)
[2021-10-08 11:27] VITALS: BP 117/73; PULSE 84; RESP 18; TEMP 36.4; O2SAT 97
--- NOTE | 2021-10-08 11:46 | PM.DS ---
DS: Providers Provider Date of Service: 10/08/21 Date of admission: 10/05/21 22:45 Primary care physician: Laxmi Gutierrez MD Consults: 10/05/21 22:45 Consult to Infectious Diseases Routine Consulting Provider: Eleni Kraus Reason for consultation: Cellulitis/sepsis DS: Diagnosis Discharge Diagnosis (1) Bilateral cellulitis of lower leg: Status: Acute DS: Summary Hospital Course Hospital Course: from initial hpi: Chief Complaint: Bilateral leg pain and swelling 81-year-old female with a past medical history of hypertension, hyperlipidemia, hypothyroidism, CHF, chronic lymphedema, AFib-on Coumadin; history of venous stasis dermatitis; idiopathic hypotension-on mild a drain; presented to the hospital today with a chief complaint of fever.? Patient reported that over the past few days she has been having pain in her both the legs and has been increased swelling.? Also complains of discharge from the right like.? Mentions that her right leg is more swollen than usual. Also spoke to the patient's son Nicko.? Patient reports she has been having diarrhea.? Was on cephalexin recently. Patient denies any chest pain palpitations lightheadedness or dizziness.? Denies any cough or sputum production. Review of all other systems is negative except mentioned above ER course: ER team mentioned that patient noted to have bilateral leg swelling concerning for cellulitis; also noted a significant leukocytosis and initially hypertensive with systolic blood pressure in 70s-possibly severe sepsis from cellulitis.? Patient was given IV fluids 30 cc/kg with improvement in blood pressure to 80s followed by patient also given mild in; blood pressure improved to 90s systolic.? Given IV vancomycin and Zosyn.? Admitted to the hospital for further management. hospital course: patient was admitted for severe sepsis due to right greater than left cellulitis, she was given vancomycin and zosyn, her cultures were negative, symptoms and sepsis resolved. she will be discharged on 10 more days of po augmentin and doxy. Diarrhea resolved, patient did not have C diff sent. for hypothyroid she was continued on Synthroid, for COPD she was given bronchodilators as needed, for chronic atrial fibrillation diltiazem has been held for hypotension, Coumadin will be restarted once INR is back in therapeutic range. Is currently supratherapeutic with an INR 5 likely due to antibiotics, there is no active bleeding. CKD 3 was stable. For chronic diastolic CHF Lasix can now be restarted, was held for hypotension. Time Spent with Patient Time attestation: Total time spent providing and/or coordinating discharge services: Discharge coordination time: Greater than 30 minutes Quality: Safe Use of Opioids Does Pt have an Active Cancer Diagnosis on the Problem List?: No Quality: Stroke Does the patient have a stroke diagnosis?: No Physical Exam Vital Signs: Vital Signs: Last Vital Signs Temp 97.6 F 10/08/21 11:27 Pulse 84 10/08/21 11:27 Resp 18 10/08/21 11:27 BP 117/73 10/08/21 11:27 Pulse Ox 97 10/08/21 11:27 BMI result Body Mass Index 33.2 Const General:?cooperative Eyes General:?appearance normal, both eyes and all related structures Resp Effort & Inspection:?normal respiratory effort Cardio Rate:?regular rate Rhythm:?regular rhythm GI Palpation (GI):?Soft to palpation and nontender Extrem Other: bilateral redness LE DS: Data Data Completed and Pending Labs on day of discharge: Laboratory Results - last 24 hr 10/07/21 10/08/21 10/08/21 17:57 05:39 05:39 WBC 7.5 RBC 3.40 L Hgb 9.5 L Hct 32.4 L MCV 95.3 MCH 27.9 MCHC 29.3 L RDW 16.1 H Plt Count TNP MPV 11.5 Absolute Nucleated RBC 0.000 Nucleated RBC % (auto) 0.0 PT 58.5 H INR 5.0 H* Sodium Potassium Chloride Carbon Dioxide Anion Gap BUN Creatinine Estim Creat Clear Calc Estimated GFR Fasting Glucose Calcium Vancomycin Trough 11.9 10/08/21 05:39 WBC RBC Hgb Hct MCV MCH MCHC RDW Plt Count MPV Absolute Nucleated RBC Nucleated RBC % (auto) PT INR Sodium 139 Potassium 4.6 Chloride 106 Carbon Dioxide 27 Anion Gap 11 L BUN 26 H Creatinine 1.89 H Estim Creat Clear Calc 25.0 Estimated GFR 26 Fasting Glucose 85 Calcium 8.2 L Vancomycin Trough Preliminary micro results at discharge 10/05/21 19:03 Blood Culture - Preliminary Blood - Venous No growth after 48 hours. 10/05/21 18:37 Blood Culture - Preliminary Blood - Venous No growth after 48 hours. Discharge Plan Discharge Patient Disposition: Home, Self-Care Discharge Diagnosis: sepsis, cellulitis Referrals: Laxmi Gutierrez MD [Primary Care Provider] - 1 Week Discharge Medications: New amoxicillin-pot clavulanate 875-125 mg tablet 1 tab PO Q12H Qty: 20 0RF doxycycline hyclate 100 mg capsule 100 mg PO BID Qty: 20 0RF Continued midodrine 5 mg tablet 5 mg PO TID 0RF levothyroxine 50 mcg tablet 50 mcg PO DAILY 0RF ferrous sulfate [FeroSul] 325 mg (65 mg iron) tablet 325 mg PO DAILY 0RF omeprazole 20 mg capsule,delayed release(DR/EC) 20 mg PO DAILY@0630 0RF loratadine 10 mg tablet 10 mg PO DAILY 0RF calcium carbonate-vitamin D3 600 mg(1,500mg) -400 unit tablet 1 tab PO BID 0RF cholecalciferol (vitamin D3) [Vitamin D3] 50 mcg (2,000 unit) capsule 50 mcg PO DAILY 0RF Xolair 150 mg recon soln 300 mg subcut Q2W 0RF Trelegy Ellipta 100-62.5-25 mcg blister with device 1 puff inhalation DAILY 0RF albuterol sulfate 2.5 mg /3 mL (0.083 %) solution for nebulization 2.5 mg inhalation Q4H PRN (Reason: Shortness Of Breath) 0RF montelukast 10 mg tablet 1 tab PO DAILY 0RF mupirocin 2 % ointment 1 applic topical BID-TID 0RF furosemide 20 mg tablet 60 mg PO DAILY 0RF amiodarone 200 mg tablet 200 mg DAILY 0RF Rx Instructions: Take 400mg twice daily for a total of 14 days (08/31/21), then 200mg daily ammonium lactate 12 % Lotion 1 appl topical BID 30 Days 0RF Protocol: Apply to: Apply to: Bilateral lower extremities clotrimazole 1 % Cream 1 appl topical BID 7 Days 0RF Protocol: Apply to: Apply to: Feet between toes bilaterally Held warfarin 2.5 mg tablet 2.5 mg PO DAILY 0RF Hold Instructions: Resume on 10/13/21. monitor inr, restart when <3 Discontinued diltiazem HCl 120 mg capsule,extended release 24 hr 120 mg PO BID 0RF Discharge Orders: Discharge Order (Routine); Ordered 10/08/21 Ordered By: Wayne Fields Diet: advance to usual diet Activity on Discharge: As tolerated Stand Alone Forms: Patient Portal Discharge page Care Plan Goals: recovery Health Concerns: cellulitis Plan of Treatment: 10 days augmentin and doxy Assessment: see above
--- NOTE | 2021-10-08 13:26 | MHC.CM.PN ---
NURSE SAFETY SECURITY OFFICER NOTE MET WITH PATIENT AND CASE DISUCSSED WITH THE HOSPITLAIST ALEXANDRA STAFF NURSE , SHE WILL BE D/C HOME TODAY , I WAS NOT ABLE TO REACH THE FOLLOWING TWO SONS LINA OR YUE AND ALSO UNABLE TO LEAVE A PHONE ,GERMAN . I WAS ABLE TO REACG ANOTHER SON MARITZA I EXPALIEND SGE WILL BE D/C HOME TODAY AND HE WILL MEET HER AT THE HOME ADDRESS AROUND 4PM DISCHARGE PLAN 1. ACTIVE W[facility]HT[facility] NA FOR BNRUSING AND ADDED HOME P.T. 0 CLINICALS AENT TO THEM 2 [facility] FOR TRANSPORTATION HIGH FALL RISK AND PATIENT REQUIRING ASSISTANCE POOR COGNITIVE SAFETY AWARENESS APPROVAL FOR BOTH FROM [facility] AT [facility] INSURANCE MEDICARE IMM 10/06/21
[2021-10-08] MEDS: Clotrimazole 1 % Cream 15 GM TUBE 1 APPL TOPICAL (13:44)
--- NOTE | 2021-10-08 13:53 | P.F2F_ITS ---
Service Date Service Date: 10/08/21 Encounter Date of encounter: 10/08/21 Reasons for Services Signs and symptoms assessed: weak Reason for retirement: medication management, medication treatment and teach disease management Reason for physical therapy: home safety and mobility, therapeutic exercises and gait/transfer training Homebound: Leaving the home is medically contraindicated at this time without the asist of a device and/or another person due th the listed conditions above and below. Reason homebound: unsteady gait / fall risk Certification: Based on the above findings, I certify that this patient is confined to the home and needs intermittent retirement care, physical therapy and/or speech therapy, or continues to need occupational therapy. The patient is under my care, and I have initiated the establishment of the plan of care. The patient will be followed by a physician who will periodically review the plan of care.
--- NOTE | 2021-10-08 13:53 | MHC.CM.PN ---
NURSE CASE MANAGEMENT NOTE DISCHARGED HOME WITH [facility] FOR WOUND ASSESSMENT AND DRESSING CHANGES PER DISCHARGE INSTRUCTIONS PCP DR LALI IBANEZ PATIENT TO FOLLOW UP FOR POST HOSP[[facility] WILL NEED TRANSPORTATION ASSIASTANCE
[2021-10-08 15:57] VITALS: BP 114/79; PULSE 70; RESP 18; TEMP 36.6; O2SAT 100
== END 2021-10-08 19:20 | disposition home health service (06) | DRG 872 ==
LOC: HO.ED 18:01 → HO.EDOVER 22:53 → HO.S3 10-06 16:32
PROVIDERS: Admitting Provider Hospitalist; Emergency Provider Internal Medicine; PCP Internal Medicine; Visit Provider Internal Medicine
DX: A41.9 Sepsis, unspecified organism (principal); L03.116 Cellulitis of left lower limb; I48.20 Chronic atrial fibrillation, unspecified; L03.115 Cellulitis of right lower limb; I13.0 Hypertensive heart and chronic kidney disease with heart failure and stage 1 through stage 4 chronic kidney disease, or unspecified chronic kidney disease; I50.32 Chronic diastolic (congestive) heart failure; I27.20 Pulmonary hypertension, unspecified; I95.9 Hypotension, unspecified; R65.20 Severe sepsis without septic shock; J44.9 Chronic obstructive pulmonary disease, unspecified; E03.9 Hypothyroidism, unspecified; R79.1 Abnormal coagulation profile; N18.30 Chronic kidney disease, stage 3 unspecified; J45.909 Unspecified asthma, uncomplicated; Z20.822 Contact with and (suspected) exposure to COVID-19; Z88.8 Allergy status to other drugs, medicaments and biological substances; Z79.01 Long term (current) use of anticoagulants; Z79.890 Hormone replacement therapy; Z79.899 Other long term (current) drug therapy
CPT/HCPCS: 0241U; 36415; 71045; 73700; 74176; 80048; 80053; 80202; 81001; 83605; 85007; 85025; 85027; 85610; 85730; 87040; 87086; 87147; 87205; 93005; 94640; 96361; 96365; 96375; 99285; 99291; J2543; J3370

== ENCOUNTER 2022-01-10 10:28 | Emergency (ER) | payer OTHER, SELFPAY ==
[2022-01-10 10:31] VITALS: BP 127/82; PULSE 86; RESP 18; TEMP 37; O2SAT 96; BMI 29.2
[2022-01-10 10:53] LABS: MANUAL DIFF FLAG NO
[2022-01-10 10:54] LABS: Basophils Percent Auto 0.8 % (0-2); Eosinophils Absolute Auto 0.2 X10*3/uL (0.0-0.4); Eosinophils Percent Auto 3.6 % (0-4); Hematocrit 33.2 % (37.0-47.0); Hemoglobin 10.1 g/dl (12.0-16.0); Imm Gran Abs Auto 0.02 X10*3/uL (0.00-0.03); Imm Gran Pct Auto 0.4 % (0.0-0.4); Lymphocytes Absolute Auto 1.8 X10*3/uL (1.2-4.9); Lymphocytes Percent Auto 35.3 % (20-40); Mean Corpuscular HGB Conc 30.4 g/dl (31.0-35.0); Mean Corpuscular Hemoglobin 28.7 pg (27.0-33.0); Mean Corpuscular Volume 94.3 fL (80.0-98.0); Monocytes Absolute Auto 0.5 X10*3/uL (0.1-1.2); Monocytes Percent Auto 9.7 % (2-11); Neutrophils Absolute Auto 2.5 x10*3/uL (2.0-8.3); Neutrophils Percent Auto 50.2 % (45-73); Platelet Count 190 X10*3/uL (160-400); Red Blood Count 3.52 X10*6/uL (4.20-5.50)
[2022-01-10 11:14] LABS: B Type Natriuretic Peptide 276 pg/mL (<100)
[2022-01-10 11:16] LABS: COVID-19 Test Negative (Negative); IDNOW Serial# 9DB6401D
[2022-01-10 11:18] LABS: Alanine Aminotransferase 12 U/L (0-31); Albumin Level 3.2 g/dL (3.5-5.0); Alkaline Phosphatase 70 U/L (39-117); Anion Gap 12 (12-20); Aspartate Amino Transferase 16 U/L (5-31); Bilirubin Total 0.6 mg/dL (0.0-1.0); Blood Urea Nitrogen 15 mg/dL (9-16); Calcium 8.2 mg/dL (8.4-10.2); Carbon Dioxide 30 mmol/L (22-29); Chloride 103 mmol/L (96-108); Creatinine Clr Calc Pharmacy 27.2; Estimated Glomerular Filt Rate 32; Glucose Random 82 mg/dL (60-115); Potassium 4.6 mmol/L (3.3-5.1); Sodium 140 mmol/L (135-145)
== END 2022-01-10 15:16 | disposition left against medical advice (07) ==
PROVIDERS: Emergency Provider Emergency Medicine; PCP Internal Medicine
DX: R50.9 Fever, unspecified (principal); M79.605 Pain in left leg; M79.604 Pain in right leg; R06.02 Shortness of breath; Z20.822 Contact with and (suspected) exposure to COVID-19; Z79.899 Other long term (current) drug therapy
CPT/HCPCS: 80053; 83880; 85025; 87635; 99281; 99283

== ENCOUNTER 2022-01-11 09:25 | Emergency (ER) | payer OTHER, SELFPAY ==
--- NOTE | ~2022-01-11 | XR_ITS ---
EXAMINATION: XR PELVIS XR FEMUR, RIGHT CLINICAL INFORMATION: Right femoral and pelvic pain. COMPARISON: CT scan abdomen pelvis and right lower extremity 10/06/2021. TECHNIQUE: Single view pelvis with 2 views right femur. FINDINGS: No pelvic fracture is seen. Some mild degenerative changes are present in the visualized spine and left hip. A right total hip prosthesis is present which appears in good position, unchanged. No evidence of hardware failure. Evaluation of the remainder of the femur shows severe degenerative changes in the knee joint with narrowing in both lateral, patellofemoral and medial compartments. No fractures are seen. XR/XR pelvis 1-2V IMPRESSION: No pelvic or femoral fracture is seen. Right hip prosthesis unchanged. Severe degenerative changes right knee.
--- NOTE | ~2022-01-11 | XR_ITS ---
EXAMINATION: XR PELVIS XR FEMUR, RIGHT CLINICAL INFORMATION: Right femoral and pelvic pain. COMPARISON: CT scan abdomen pelvis and right lower extremity 10/06/2021. TECHNIQUE: Single view pelvis with 2 views right femur. FINDINGS: No pelvic fracture is seen. Some mild degenerative changes are present in the visualized spine and left hip. A right total hip prosthesis is present which appears in good position, unchanged. No evidence of hardware failure. Evaluation of the remainder of the femur shows severe degenerative changes in the knee joint with narrowing in both lateral, patellofemoral and medial compartments. No fractures are seen. XR/XR femur RT 2V IMPRESSION: No pelvic or femoral fracture is seen. Right hip prosthesis unchanged. Severe degenerative changes right knee.
[2022-01-11 10:18] VITALS: BP 122/75; PULSE 77; RESP 16; TEMP 36.8; O2SAT 98; BMI 30.1
--- NOTE | 2022-01-11 11:29 | ED_ITS ---
HPI - General Adult General Chief complaint: Skin/Abscess/Foreign Body Stated complaint: swollen legs/redness Time Seen by Provider: 01/11/22 11:27 Source: patient and family Mode of arrival: wheelchair Limitations: no limitations History of Present Illness HPI narrative: 81-year-old female presents to the emergency department she has chronic lymphedema of bilateral lower extremities with complications of cellulitis multiple times in past most recently in September this did improve with antibiotics she returned yesterday had lab work done but left without being seen due to prolonged wait she returns today after 2 hours in the waiting room back in to room 2 she refused any further lab tests but she did not have a lactic sent for an INR and she is on Coumadin. She states that for the past few days she has noticed increased redness and swelling this started around her right lateral hip around the greater trochanter and spread down towards her knee. She denies any falls or injuries she denies nausea vomiting diarrhea she normally uses a wheelchair at home. Related Data Home Medications Medication Instructions Recorded Confirmed calcium carbonate 600 mg-vitamin 1 tab PO BID 02/04/21 10/05/21 D3 10 mcg (400 unit) tablet cholecalciferol (vitamin D3) 50 50 mcg PO DAILY 02/04/21 10/05/21 mcg (2,000 unit) capsule (Vitamin D3) ferrous sulfate 325 mg (65 mg 325 mg PO DAILY 02/04/21 10/05/21 iron) tablet (FeroSul) levothyroxine 50 mcg tablet 50 mcg PO DAILY 02/04/21 10/05/21 loratadine 10 mg tablet 10 mg PO DAILY 02/04/21 10/05/21 midodrine 5 mg tablet 5 mg PO TID 02/04/21 10/05/21 omeprazole 20 mg capsule,delayed 20 mg PO DAILY@0630 02/04/21 10/05/21 release warfarin 2.5 mg tablet 2.5 mg PO DAILY 02/04/21 10/05/21 fluticasone fur. 100 mcg-umeclid 1 puff inhalation DAILY 05/03/21 10/05/21 62.5 mcg-vilant 25 mcg inhalat.powder (Trelegy Ellipta) omalizumab 150 mg subcutaneous 300 mg subcut Q2W 05/03/21 10/05/21 solution (Xolair) albuterol sulfate 2.5 mg/3 mL 2.5 mg inhalation Q4H PRN 08/09/21 10/05/21 (0.083 %) solution for nebulization Shortness Of Breath montelukast 10 mg tablet 1 tab PO DAILY 08/09/21 10/05/21 amiodarone 200 mg tablet 200 mg DAILY 09/13/21 10/05/21 furosemide 20 mg tablet 60 mg PO DAILY 09/13/21 10/05/21 mupirocin 2 % topical ointment 1 applic topical BID-TID 09/13/21 10/05/21 Previous Rx's Medication Instructions Recorded ammonium lactate 12 % lotion 1 appl topical BID 30 days 09/17/21 clotrimazole 1 % topical cream 1 appl topical BID 7 days 09/17/21 amoxicillin 875 mg-potassium 1 tab PO Q12H #20 tabs 10/08/21 clavulanate 125 mg tablet doxycycline hyclate 100 mg capsule 100 mg PO BID #20 caps 10/08/21 doxycycline hyclate 100 mg capsule 100 mg PO BID Cellulitis #20 caps 01/11/22 Allergies Allergy/AdvReac Type Severity Reaction Status Date / Time lisinopril [LISINOPRIL] Allergy Unknown UNKNOWN Verified 02/05/21 21:56 simvastatin [SIMVASTATIN] Allergy Unknown UNKNOWN Verified 02/05/21 21:56 Review of Systems Review of Systems: Review of systems: General: Fevers and chills Patient denies any recent illness or falls Musculoskeletal: Denies back pain or body aches or other injuries HEENT: denies headache, runny nose, ear pain Respiratory: denies shortness of breath, cough Cardiovascular: no chest pain or palpitations : denies dysuria, frequency Abdomen: no nausea vomiting denies abdominal pain Extremities: no swelling, no pain Skin: Redness induration swelling and pain to the right leg from the greater trochanter to knee laterally no diaphoresis Yes all other systems are reviewed and are negative PMFSH Past Medical History Medical History Acute on chronic right heart failure Afib Asthma Cellulitis of right leg CHF (congestive heart failure) HTN (hypertension) Hypothyroid Idiopathic hypotension Lymphedema Non-healing wound of right lower extremity Pulmonary hypertension Sepsis Tricuspid valve regurgitation Venous stasis dermatitis of right lower extremity Surgical History S/P hip replacement Family History Family History Mother Gastric cancer Social History Social History Household Members: None Housing: Apartment Do you presently have visiting nurse or other home services: Yes Alcohol intake: never Patient Tobacco Use Status: Never used Tobacco Second Hand Smoke Exposure: No Advance Directives: Yes Advance Directives on File: Yes Advance Directives Date on File: 02/05/21 service: No Current occupational status: disabled Physical Exam ED Vital Signs: Vital Signs - 24 hr 01/11/22 10:18 Temperature 98.3 F Pulse Rate 77 Respiratory Rate 16 Blood Pressure 122/75 Pulse Oximetry 98 Oxygen Delivery Method Room Air BMI result Body Mass Index 30.1 General: Well-appearing well-nourished in no signs of distress HEENT: Normocephalic atraumatic Neck: No signs of JVD, no masses no tenderness or lymphadenopathy Cardiovascular: Regular rate and rhythm Respiratory: Clear to auscultation bilaterally Abdomen: Soft nontender no masses Extremities: Normal pedal pulses no signs of edema Skin: Bilateral lower extremities with chronic venous stasis with changes to lower extremity skin associated with that is not tender to palpation tenderness starts around the right leg the lateral knee extending up towards the hip patient does have full range of motion of the knee and hip it is indurated red Back: No tenderness full ROM Medical Decision Making MDM Narrative Medical decision making narrative: Concern for cellulitis patient has improved and is previously I will get an x- ray I will repeat the INR since has been elevated previously antibiotics and her will elevate the levels well I will start the patient on doxycycline while waiting for the lactic and INR. Also get an x-ray of lower extremities to do the infection extends into the deep tissues XR is unremarkable lactic and INR are at baseline I will discharge home. Lab Data Labs: Lab Results 01/11/22 01/11/22 01/11/22 Range/Units 11:45 11:46 11:46 PT 27.5 H (10.0-13.1) SEC INR 2.3 H D (0.9-1.1) APTT 43.0 H (24.1-38.0) SEC Lactic Acid 0.7 (0.5-2.0) mmol/L Discharge Plan Discharge Clinical Impression: Cellulitis Patient Disposition: Home, Self-Care Instructions: Cellulitis (ED) Additional Instructions: Please keep a close on her right leg watch for worsening infection or if her pain is too much please return to the ED. Prescriptions: New doxycycline hyclate 100 mg capsule 100 mg PO BID Qty: 20 0RF No Action midodrine 5 mg tablet 5 mg PO TID warfarin 2.5 mg tablet 2.5 mg PO DAILY Hold Instructions: Resume on 10/13/21. monitor inr, restart when <3 levothyroxine 50 mcg tablet 50 mcg PO DAILY ferrous sulfate [FeroSul] 325 mg (65 mg iron) tablet 325 mg PO DAILY omeprazole 20 mg capsule,delayed release(DR/EC) 20 mg PO DAILY@0630 loratadine 10 mg tablet 10 mg PO DAILY calcium carbonate-vitamin D3 600 mg(1,500mg) -400 unit tablet 1 tab PO BID cholecalciferol (vitamin D3) [Vitamin D3] 50 mcg (2,000 unit) capsule 50 mcg PO DAILY Xolair 150 mg recon soln 300 mg subcut Q2W Trelegy Ellipta 100-62.5-25 mcg blister with device 1 puff inhalation DAILY albuterol sulfate 2.5 mg /3 mL (0.083 %) solution for nebulization 2.5 mg inhalation Q4H PRN (Reason: Shortness Of Breath) montelukast 10 mg tablet 1 tab PO DAILY mupirocin 2 % ointment 1 applic topical BID-TID furosemide 20 mg tablet 60 mg PO DAILY amiodarone 200 mg tablet 200 mg DAILY Rx Instructions: Take 400mg twice daily for a total of 14 days (08/31/21), then 200mg daily ammonium lactate 12 % Lotion 1 appl topical BID 30 Days 0RF Protocol: Apply to: Apply to: Bilateral lower extremities clotrimazole 1 % Cream 1 appl topical BID 7 Days 0RF Protocol: Apply to: Apply to: Feet between toes bilaterally amoxicillin-pot clavulanate 875-125 mg tablet 1 tab PO Q12H Qty: 20 0RF doxycycline hyclate 100 mg capsule 100 mg PO BID Qty: 20 0RF
[2022-01-11 12:01] LABS: INTERNATIONAL NORM RATIO 2.3 (0.9-1.1); Prothrombin Time 27.5 SEC (10.0-13.1)
[2022-01-11 12:02] LABS: Lactic Acid 0.7 mmol/L (0.5-2.0)
[2022-01-11 17:11] VITALS: BP 125/75; PULSE 87; RESP 16; O2SAT 97
== END 2022-01-11 17:12 | disposition home or self-care (01) ==
PROVIDERS: Emergency Provider Student in an Organized Health Care Education/Training Program; PCP Internal Medicine
DX: L03.115 Cellulitis of right lower limb (principal); M79.604 Pain in right leg; I89.0 Lymphedema, not elsewhere classified; I11.0 Hypertensive heart disease with heart failure; I50.9 Heart failure, unspecified; Z79.01 Long term (current) use of anticoagulants; Z79.899 Other long term (current) drug therapy
CPT/HCPCS: 36415; 72170; 73552; 83605; 85610; 85730; 99282; 99283

== ENCOUNTER 2022-07-26 09:08 | Emergency (ER) | payer OTHER, SELFPAY ==
[2022-07-26 09:39] VITALS: BP 109/60; PULSE 71; RESP 18; TEMP 36.1; O2SAT 99; BMI 29.2
[2022-07-26 10:00] LABS: MANUAL DIFF FLAG NO
[2022-07-26 10:09] LABS: Basophils Absolute Auto 0.1 X10*3/uL (0.0-0.2); Basophils Percent Auto 1.4 % (0-2); Eosinophils Absolute Auto 0.2 X10*3/uL (0.0-0.4); Eosinophils Percent Auto 5.2 % (0-4); Hematocrit 36.1 % (37.0-47.0); Hemoglobin 11.1 g/dl (12.0-16.0); Lymphocytes Absolute Auto 1.4 X10*3/uL (1.2-4.9); Lymphocytes Percent Auto 39.2 % (20-40); Mean Corpuscular HGB Conc 30.7 g/dl (31.0-35.0); Mean Corpuscular Hemoglobin 29.4 pg (27.0-33.0); Mean Corpuscular Volume 95.8 fL (80.0-98.0); Mean Platelet Volume 10.7 fL (9.4-12.3); Monocytes Absolute Auto 0.4 X10*3/uL (0.1-1.2); Monocytes Percent Auto 9.9 % (2-11); Neutrophils Absolute Auto 1.6 x10*3/uL (2.0-8.3); Neutrophils Percent Auto 44.3 % (45-73); Platelet Count 163 X10*3/uL (160-400); Red Blood Count 3.77 X10*6/uL (4.20-5.50); White Blood Count 3.7 X10*3/uL (4.8-10.8)
[2022-07-26 10:15] LABS: INTERNATIONAL NORM RATIO 2.6 (0.9-1.1); Prothrombin Time 31.6 SEC (10.0-13.1)
[2022-07-26 10:35] LABS: Anion Gap 13 (12-20); Blood Urea Nitrogen 28 mg/dL (9-16); Calcium 8.7 mg/dL (8.4-10.2); Carbon Dioxide 32 mmol/L (22-29); Chloride 102 mmol/L (96-108); Creatinine Clr Calc Pharmacy 23.3; Estimated Glomerular Filt Rate 27; Glucose Random 99 mg/dL (60-115); Potassium 4.5 mmol/L (3.3-5.1); Sodium 142 mmol/L (135-145)
[2022-07-26 10:43] LABS: B Type Natriuretic Peptide 113 pg/mL (<100)
[2022-07-26 12:00] VITALS: BP 119/63; PULSE 65; RESP 18; TEMP 36.6; O2SAT 100
--- NOTE | 2022-07-26 12:21 | PC.NURSE ---
patient alert, oriented x4. right lower leg has wound with minimal drainage. reports she finished antibiotics two weeks ago. denies pain. son at the bedside. call dempsey within reach
[2022-07-26 14:37] VITALS: BP 114/64; PULSE 72; RESP 16; O2SAT 97
--- NOTE | 2022-07-26 15:09 | ED.LOWEXIN ---
HPI - Extremity Injury (Lower) General Chief Complaint: Extremity Injury, Lower Stated Complaint: R leg infection/SOB Time Seen by Provider: 07/26/22 13:02 Source: patient and family (Son) Mode of arrival: ambulatory History of Present Illness HPI Narrative: 82-year-old female with underlying CAD as well as lymphedema, 2 weeks ago she completed a course of antibiotics for her wound on the right lower extremity associated with her lymphedema and states that it is returned, she has noticed some mild drainage and has concerns regarding infection. Patient also reports some shortness of breath. Otherwise, denies any fevers or chills or chest pain. She has otherwise been eating and drinking well and denies any urinary symptoms. Related Data Home Medications Medication Instructions Recorded Confirmed calcium carbonate 600 mg-vitamin 1 tab PO BID 02/04/21 10/05/21 D3 10 mcg (400 unit) tablet cholecalciferol (vitamin D3) 50 50 mcg PO DAILY 02/04/21 10/05/21 mcg (2,000 unit) capsule (Vitamin D3) ferrous sulfate 325 mg (65 mg 325 mg PO DAILY 02/04/21 10/05/21 iron) tablet (FeroSul) levothyroxine 50 mcg tablet 50 mcg PO DAILY 02/04/21 10/05/21 loratadine 10 mg tablet 10 mg PO DAILY 02/04/21 10/05/21 midodrine 5 mg tablet 5 mg PO TID 02/04/21 10/05/21 omeprazole 20 mg capsule,delayed 20 mg PO DAILY@0630 02/04/21 10/05/21 release warfarin 2.5 mg tablet 2.5 mg PO DAILY 02/04/21 10/05/21 fluticasone fur. 100 mcg-umeclid 1 puff inhalation DAILY 05/03/21 10/05/21 62.5 mcg-vilant 25 mcg inhalat.powder (Trelegy Ellipta) omalizumab 150 mg subcutaneous 300 mg subcut Q2W 05/03/21 10/05/21 solution (Xolair) albuterol sulfate 2.5 mg/3 mL 2.5 mg inhalation Q4H PRN 08/09/21 10/05/21 (0.083 %) solution for nebulization Shortness Of Breath montelukast 10 mg tablet 1 tab PO DAILY 08/09/21 10/05/21 amiodarone 200 mg tablet 200 mg DAILY 09/13/21 10/05/21 furosemide 20 mg tablet 60 mg PO DAILY 09/13/21 10/05/21 mupirocin 2 % topical ointment 1 applic topical BID-TID 09/13/21 10/05/21 Previous Rx's Medication Instructions Recorded ammonium lactate 12 % lotion 1 appl topical BID 30 days 09/17/21 clotrimazole 1 % topical cream 1 appl topical BID 7 days 09/17/21 amoxicillin 875 mg-potassium 1 tab PO Q12H #20 tabs 10/08/21 clavulanate 125 mg tablet doxycycline hyclate 100 mg capsule 100 mg PO BID #20 caps 10/08/21 doxycycline hyclate 100 mg capsule 100 mg PO BID Cellulitis #20 caps 01/11/22 cephalexin 500 mg capsule 500 mg PO BID 5 days #10 caps 07/26/22 doxycycline hyclate 100 mg tablet 100 mg PO BID 5 days #10 tabs 07/26/22 Allergies Allergy/AdvReac Type Severity Reaction Status Date / Time lisinopril [LISINOPRIL] Allergy Unknown UNKNOWN Verified 02/05/21 21:56 simvastatin [SIMVASTATIN] Allergy Unknown UNKNOWN Verified 02/05/21 21:56 Review of Systems Review of Systems: Pertinent positives and negatives as stated in [facility] Past Medical History Source: nursing notes reviewed Medical History Acute on chronic right heart failure Afib Asthma Cellulitis of right leg CHF (congestive heart failure) HTN (hypertension) Hypothyroid Idiopathic hypotension Lymphedema Non-healing wound of right lower extremity Pulmonary hypertension Sepsis Tricuspid valve regurgitation Venous stasis dermatitis of right lower extremity Surgical History S/P hip replacement Family History Family History Mother Gastric cancer Social History Social History Household Members: None Housing: Apartment Do you presently have visiting nurse or other home services: Yes Alcohol intake: never Patient Tobacco Use Status: Never used Tobacco Second Hand Smoke Exposure: No Advance Directives: Yes Advance Directives on File: Yes Advance Directives Date on File: 02/05/21 service: No Current occupational status: disabled Physical Exam Vital Signs: Vital Signs: Last Vital Signs Temp 97.8 F 07/26/22 12:00 Pulse 72 07/26/22 14:37 Resp 16 07/26/22 14:37 BP 114/64 07/26/22 14:37 Pulse Ox 97 07/26/22 14:37 O2 Del Method 07/26/22 14:37 BMI result Body Mass Index 29.2 VITAL SIGNS: Reviewed. GENERAL: Chronically, elderly, in no acute distress. HEAD: Normocephalic/atraumatic EYES: PERRLA, EOMI EARS: Ext canals without abnormality OROPHARYNX: no oral lesions noted, posterior pharynx clear LUNGS: Good inspiratory effort without tachypnea, mild bibasilar rales noted SpO2<97> CARDIOVASCULAR: Regular rate and rhythm without noted murmurs, no JVD bilateral lower extremity chronic lymphedema ABDOMEN: Soft, non-tender, non-distended with bowel sounds. MUSCULOSKELETAL: No tenderness, deformities, or effusions noted on gross inspection. EXTREMITIES: No cyanosis, clubbing or edema; RIGHT LOWER EXTREMITY: There is significant chronic lymphedema with some mild wound and drainage noted, warm foot and good pulses noted equivalent temperature when compared to left lower extremity. SKIN: Inspection of the skin reveals no rashes, ulcerations, jaundice, pallor, or petechiae. NEUROLOGIC: Alert and oriented x 4. Strength and sensation to light touch were grossly intact x 4. Medical Decision Making Medical Decision Making MDM Narrative: 82-year-old female with chronic lymphedema and chronic right lower extremity wound that son and patient both inform me have been ongoing for a while, patient is afebrile and on my examination appears to have some mild rales without evidence of hypoxia or tachypnea. On review of all investigations my interpretation is patient has chronic stable laboratory findings with a mild bump in creatinine and BNP is lower than prior BNP. Will provide 40 mg of oral Lasix and start her on oral antibiotics and provided a referral to the [facility]. Differential Diagnosis Differential Diagnoses: The differential diagnosis associated with the presentation includes Please see the discussion as above Lab Data MDM Lab Attestation statement: I reviewed the patient's lab results. Please see the discussion as above 07/26/22 09:54 07/26/22 09:54 Labs: Lab Results 07/26/22 07/26/22 07/26/22 Range/Units 09:54 09:54 09:54 WBC 3.7 L (4.8-10.8) X10*3/uL RBC 3.77 L (4.20-5.50) X10*6/uL Hgb 11.1 L (12.0-16.0) g/dl Hct 36.1 L (37.0-47.0) % MCV 95.8 (80.0-98.0) fL MCH 29.4 (27.0-33.0) pg MCHC 30.7 L (31.0-35.0) g/dl RDW 14.0 (11.0-16.0) % Plt Count 163 (160-400) X10*3/uL MPV 10.7 (9.4-12.3) fL Immature Gran % (Auto) 0.0 (0.0-0.4) % Neut % (Auto) 44.3 L (45-73) % Lymph % (Auto) 39.2 (20-40) % Person % (Auto) 9.9 (2-11) % Eos % (Auto) 5.2 H (0-4) % Baso % (Auto) 1.4 (0-2) % Lymph # (Auto) 1.4 (1.2-4.9) X10*3/uL Person # (Auto) 0.4 (0.1-1.2) X10*3/uL Eos # (Auto) 0.2 (0.0-0.4) X10*3/uL Baso # (Auto) 0.1 (0.0-0.2) X10*3/uL Abs Immat Gran (auto) 0.00 (0.00-0.03) X10*3/uL Absolute Neuts (auto) 1.6 L (2.0-8.3) x10*3/uL Absolute Nucleated RBC 0.000 (0.0-0.012) X10*3/uL Nucleated RBC % (auto) 0.0 (0.0-0.2) /100WBC PT 31.6 H (10.0-13.1) SEC INR 2.6 H (0.9-1.1) Sodium 142 (135-145) mmol/L Potassium 4.5 (3.3-5.1) mmol/L Chloride 102 (96-108) mmol/L Carbon Dioxide 32 H (22-29) mmol/L Anion Gap 13 (12-20) BUN 28 H (9-16) mg/dL Creatinine 1.80 H (0.5-1.4) mg/dL Estim Creat Clear Calc 23.3 Estimated GFR 27 Random Glucose 99 (60-115) mg/dL Calcium 8.7 D (8.4-10.2) mg/dL B-Natriuretic Peptide (<100) pg/mL 07/26/22 Range/Units 09:54 WBC (4.8-10.8) X10*3/uL RBC (4.20-5.50) X10*6/uL Hgb (12.0-16.0) g/dl Hct (37.0-47.0) % MCV (80.0-98.0) fL MCH (27.0-33.0) pg MCHC (31.0-35.0) g/dl RDW (11.0-16.0) % Plt Count (160-400) X10*3/uL MPV (9.4-12.3) fL Immature Gran % (Auto) (0.0-0.4) % Neut % (Auto) (45-73) % Lymph % (Auto) (20-40) % Person % (Auto) (2-11) % Eos % (Auto) (0-4) % Baso % (Auto) (0-2) % Lymph # (Auto) (1.2-4.9) X10*3/uL Person # (Auto) (0.1-1.2) X10*3/uL Eos # (Auto) (0.0-0.4) X10*3/uL Baso # (Auto) (0.0-0.2) X10*3/uL Abs Immat Gran (auto) (0.00-0.03) X10*3/uL Absolute Neuts (auto) (2.0-8.3) x10*3/uL Absolute Nucleated RBC (0.0-0.012) X10*3/uL Nucleated RBC % (auto) (0.0-0.2) /100WBC PT (10.0-13.1) SEC INR (0.9-1.1) Sodium (135-145) mmol/L Potassium (3.3-5.1) mmol/L Chloride (96-108) mmol/L Carbon Dioxide (22-29) mmol/L Anion Gap (12-20) BUN (9-16) mg/dL Creatinine (0.5-1.4) mg/dL Estim Creat Clear Calc Estimated GFR Random Glucose (60-115) mg/dL Calcium (8.4-10.2) mg/dL B-Natriuretic Peptide 113 H (<100) pg/mL External Record Review External record reviewed: Outpatient record and Prior outpatient labs Chronic Conditions Patient?s care impacted by: Hypertension Discharge Plan Discharge Clinical Impression: Non-healing wound of right lower extremity, Cellulitis Patient Disposition: Home, Self-Care Instructions: Wound Infection (ED), Cellulitis (ED), Lymphedema (ED) Additional Instructions: 1. Reanudar todos los medicamentos caseros seg?n lo prescrito. 2. Complete todo el ciclo de antibi?ticos seg?n lo indicado. 3. Se le milan proporcionado cristóbal remisi?n al [facility] [place]. 4. Masood un seguimiento con vásquez proveedor de atenci?n primaria en los pr?ximos 2 o 3 d?as. Regrese a la aden de emergencias si los s?ntomas empeoran. 1. Resume all home medications as prescribed. 2. Complete the entire course of antibiotics as ordered. 3. You have been provided a referral to the [facility] 4. Please follow-up with your primary care provider next 2-3 days. Return to the ER for any worsening symptoms. Prescriptions: New doxycycline hyclate 100 mg tablet 100 mg PO BID 5 Days Qty: 10 0RF cephalexin 500 mg capsule 500 mg PO BID 5 Days Qty: 10 0RF No Action midodrine 5 mg tablet 5 mg PO TID warfarin 2.5 mg tablet 2.5 mg PO DAILY Hold Instructions: Resume on 04/20/22. monitor inr, restart when <3 levothyroxine 50 mcg tablet 50 mcg PO DAILY ferrous sulfate [FeroSul] 325 mg (65 mg iron) tablet 325 mg PO DAILY omeprazole 20 mg capsule,delayed release(DR/EC) 20 mg PO DAILY@0630 loratadine 10 mg tablet 10 mg PO DAILY calcium carbonate-vitamin D3 600 mg(1,500mg) -400 unit tablet 1 tab PO BID cholecalciferol (vitamin D3) [Vitamin D3] 50 mcg (2,000 unit) capsule 50 mcg PO DAILY Xolair 150 mg recon soln 300 mg subcut Q2W Trelegy Ellipta 100-62.5-25 mcg blister with device 1 puff inhalation DAILY albuterol sulfate 2.5 mg /3 mL (0.083 %) solution for nebulization 2.5 mg inhalation Q4H PRN (Reason: Shortness Of Breath) montelukast 10 mg tablet 1 tab PO DAILY mupirocin 2 % ointment 1 applic topical BID-TID furosemide 20 mg tablet 60 mg PO DAILY amiodarone 200 mg tablet 200 mg DAILY Rx Instructions: Take 400mg twice daily for a total of 14 days (08/31/21), then 200mg daily ammonium lactate 12 % Lotion 1 appl topical BID 30 Days 0RF Protocol: Apply to: Apply to: Bilateral lower extremities clotrimazole 1 % Cream 1 appl topical BID 7 Days 0RF Protocol: Apply to: Apply to: Feet between toes bilaterally amoxicillin-pot clavulanate 875-125 mg tablet 1 tab PO Q12H Qty: 20 0RF doxycycline hyclate 100 mg capsule 100 mg PO BID Qty: 20 0RF doxycycline hyclate 100 mg capsule 100 mg PO BID Qty: 20 0RF Referrals: Laxmi Gutierrez MD [Primary Care Provider] - [facility] [Outside] (Pt needs compression wraps for chronic lymphedema and non-healing RLE wound. Thank you.) Print Language: Comoran
[2022-07-26] MEDS: Furosemide 40 MG TABLET PO (15:29)
== END 2022-07-26 15:33 | disposition home or self-care (01) ==
PROVIDERS: Emergency Provider Student in an Organized Health Care Education/Training Program; PCP Internal Medicine
DX: L03.115 Cellulitis of right lower limb (principal); S81.801D Unspecified open wound, right lower leg, subsequent encounter; X58.XXXD Exposure to other specified factors, subsequent encounter; I89.0 Lymphedema, not elsewhere classified; R06.02 Shortness of breath; Z79.01 Long term (current) use of anticoagulants; Z79.899 Other long term (current) drug therapy
CPT/HCPCS: 36415; 80048; 83880; 85025; 85610; 99283

== ENCOUNTER 2022-08-06 09:29 | Emergency (ER) | payer OTHER, SELFPAY ==
[2022-08-06 09:44] VITALS: BP 131/78; PULSE 84; RESP 18; TEMP 36.8; O2SAT 98; BMI 32.3
[2022-08-06 10:37] LABS: MANUAL DIFF FLAG NO
[2022-08-06 10:39] LABS: Basophils Absolute Auto 0.1 X10*3/uL (0.0-0.2); Basophils Percent Auto 1.3 % (0-2); Eosinophils Absolute Auto 0.2 X10*3/uL (0.0-0.4); Hematocrit 37.6 % (37.0-47.0); Hemoglobin 11.5 g/dl (12.0-16.0); Imm Gran Abs Auto 0.01 X10*3/uL (0.00-0.03); Imm Gran Pct Auto 0.3 % (0.0-0.4); Lymphocytes Absolute Auto 1.4 X10*3/uL (1.2-4.9); Lymphocytes Percent Auto 36.3 % (20-40); Mean Corpuscular HGB Conc 30.6 g/dl (31.0-35.0); Mean Corpuscular Volume 94.9 fL (80.0-98.0); Mean Platelet Volume 9.6 fL (9.4-12.3); Monocytes Absolute Auto 0.3 X10*3/uL (0.1-1.2); Monocytes Percent Auto 8.6 % (2-11); Neutrophils Percent Auto 49.5 % (45-73); Platelet Count 203 X10*3/uL (160-400); Red Blood Count 3.96 X10*6/uL (4.20-5.50); Red Cell Distribution Width 13.4 % (11.0-16.0)
[2022-08-06 11:00] LABS: Anion Gap 12 (12-20); Blood Urea Nitrogen 27 mg/dL (9-16); Calcium 8.9 mg/dL (8.4-10.2); Carbon Dioxide 30 mmol/L (22-29); Chloride 102 mmol/L (96-108); Creatinine Clr Calc Pharmacy 26.5; Estimated Glomerular Filt Rate 32; Glucose Random 96 mg/dL (60-115); Potassium 4.3 mmol/L (3.3-5.1); Sodium 140 mmol/L (135-145)
[2022-08-06 12:22] VITALS: BP 125/71; PULSE 74; RESP 16; TEMP 36.4; O2SAT 96
--- NOTE | 2022-08-06 13:58 | ED.WOUNDLAC ---
HPI - Wound/Laceration General Chief Complaint: Wound/Laceration Stated Complaint: infection in R leg Time Seen by Provider: 08/06/22 11:29 Source: patient, family (Son) and supervisor [employer] Mode of arrival: ambulatory History of Present Illness HPI narrative: 82-year-old female with bilateral lymphedema and chronic abraded appearing area on the right lower extremity that is not been associated with fever or chills. The family and the patient are frustrated because they have made multiple attempts to get into the wound care clinic but they are not being called back? and the son who is at bedside is frustrated because he is having difficulty in getting referrals from the primary care provider to have his mother evaluated for the lymphedema and wound. The patient does have a visiting nurse who changes the dressing. Related Data Home Medications Medication Instructions Recorded Confirmed calcium carbonate 600 mg-vitamin 1 tab PO BID 02/04/21 10/05/21 D3 10 mcg (400 unit) tablet cholecalciferol (vitamin D3) 50 50 mcg PO DAILY 02/04/21 10/05/21 mcg (2,000 unit) capsule (Vitamin D3) ferrous sulfate 325 mg (65 mg 325 mg PO DAILY 02/04/21 10/05/21 iron) tablet (FeroSul) levothyroxine 50 mcg tablet 50 mcg PO DAILY 02/04/21 10/05/21 loratadine 10 mg tablet 10 mg PO DAILY 02/04/21 10/05/21 midodrine 5 mg tablet 5 mg PO TID 02/04/21 10/05/21 omeprazole 20 mg capsule,delayed 20 mg PO DAILY@0630 02/04/21 10/05/21 release warfarin 2.5 mg tablet 2.5 mg PO DAILY 02/04/21 10/05/21 fluticasone fur. 100 mcg-umeclid 1 puff inhalation DAILY 05/03/21 10/05/21 62.5 mcg-vilant 25 mcg inhalat.powder (Trelegy Ellipta) omalizumab 150 mg subcutaneous 300 mg subcut Q2W 05/03/21 10/05/21 solution (Xolair) albuterol sulfate 2.5 mg/3 mL 2.5 mg inhalation Q4H PRN 08/09/21 10/05/21 (0.083 %) solution for nebulization Shortness Of Breath montelukast 10 mg tablet 1 tab PO DAILY 08/09/21 10/05/21 amiodarone 200 mg tablet 200 mg DAILY 09/13/21 10/05/21 furosemide 20 mg tablet 60 mg PO DAILY 09/13/21 10/05/21 mupirocin 2 % topical ointment 1 applic topical BID-TID 09/13/21 10/05/21 Previous Rx's Medication Instructions Recorded ammonium lactate 12 % lotion 1 appl topical BID 30 days 09/17/21 clotrimazole 1 % topical cream 1 appl topical BID 7 days 09/17/21 amoxicillin 875 mg-potassium 1 tab PO Q12H #20 tabs 10/08/21 clavulanate 125 mg tablet doxycycline hyclate 100 mg capsule 100 mg PO BID #20 caps 10/08/21 doxycycline hyclate 100 mg capsule 100 mg PO BID Cellulitis #20 caps 01/11/22 cephalexin 500 mg capsule 500 mg PO BID 5 days #10 caps 07/26/22 doxycycline hyclate 100 mg tablet 100 mg PO BID 5 days #10 tabs 07/26/22 Allergies Allergy/AdvReac Type Severity Reaction Status Date / Time lisinopril [LISINOPRIL] Allergy Unknown UNKNOWN Verified 02/05/21 21:56 simvastatin [SIMVASTATIN] Allergy Unknown UNKNOWN Verified 02/05/21 21:56 Review of Systems Review of Systems: Pertinent positives and negatives as stated in [facility] Past Medical History Source: nursing notes reviewed Medical History Acute on chronic right heart failure Afib Asthma Cellulitis of right leg CHF (congestive heart failure) HTN (hypertension) Hypothyroid Idiopathic hypotension Lymphedema Non-healing wound of right lower extremity Pulmonary hypertension Sepsis Tricuspid valve regurgitation Venous stasis dermatitis of right lower extremity Surgical History S/P hip replacement Family History Family History Mother Gastric cancer Social History Social History Household Members: None Housing: Apartment Do you presently have visiting nurse or other home services: Yes Alcohol intake: never Patient Tobacco Use Status: Never used Tobacco Smoked in Last 30 Days: No Second Hand Smoke Exposure: No Use of substances other than those prescribed or required for medical reasons: No Advance Directives: Yes Advance Directives on File: Yes Advance Directives Date on File: 02/05/21 service: No Current occupational status: disabled Physical Exam Vital Signs: Vital Signs: Last Vital Signs Temp 97.5 F 08/06/22 12:22 Pulse 74 08/06/22 12:22 Resp 16 08/06/22 12:22 BP 125/71 08/06/22 12:22 Pulse Ox 96 08/06/22 12:22 O2 Del Method 08/06/22 12:22 BMI result Body Mass Index 32.3 VITAL SIGNS: Reviewed. GENERAL: Well developed, well nourished, in no acute distress. HEAD: Normocephalic/atraumatic EYES: PERRLA, EOMI LUNGS: Normal breath sounds. No adventitious sounds or accessory muscle use. SpO2<96> CARDIOVASCULAR: Regular rate and rhythm without noted murmurs, no JVD or lower extremity edema. ABDOMEN: Soft, non-tender, non-distended with bowel sounds. MUSCULOSKELETAL: No tenderness, deformities, or effusions noted on gross inspection. EXTREMITIES: No cyanosis, clubbing or edema; bilateral lower extremity lymphedema, there is an abraded area on the anterior aspect of the right lower extremity that does not appear to have purulence drainage nor foul odor there is no heaping up of edges or ulcerations. There is symmetrical temperature on tactile evaluation SKIN: Inspection of the skin reveals no rashes NEUROLOGIC: Alert and oriented x 4. Medical Decision Making Medical Decision Making MDM Narrative: This is an 82-year-old female with bilateral lymphedema and nonhealing wound at the anterior aspect and it is unclear to me why the wound care center is declining to set patient up with regular visits. At this time I have reviewed all investigations and on my clinical exam I do not feel that this is a bacterial infection and instead suspect it may be fungal or yeast in nature. I will refer the patient to infectious disease provider, Dr. Kraus. At this time I am not prescribing any antibiotics. I have discussed extensively with the family members at bedside who understand the plan. Differential Diagnosis Differential Diagnoses: The differential diagnosis associated with the presentation includes Please see the discussion above Lab Data 08/06/22 10:33 08/06/22 10:33 Labs: Lab Results 08/06/22 08/06/22 Range/Units 10:33 10:33 WBC 4.0 L (4.8-10.8) X10*3/uL RBC 3.96 L (4.20-5.50) X10*6/uL Hgb 11.5 L (12.0-16.0) g/dl Hct 37.6 (37.0-47.0) % MCV 94.9 (80.0-98.0) fL MCH 29.0 (27.0-33.0) pg MCHC 30.6 L (31.0-35.0) g/dl RDW 13.4 (11.0-16.0) % Plt Count 203 (160-400) X10*3/uL MPV 9.6 (9.4-12.3) fL Immature Gran % (Auto) 0.3 (0.0-0.4) % Neut % (Auto) 49.5 (45-73) % Lymph % (Auto) 36.3 (20-40) % [place] % (Auto) 8.6 (2-11) % Eos % (Auto) 4.0 (0-4) % Baso % (Auto) 1.3 (0-2) % Lymph # (Auto) 1.4 (1.2-4.9) X10*3/uL [place] # (Auto) 0.3 (0.1-1.2) X10*3/uL Eos # (Auto) 0.2 (0.0-0.4) X10*3/uL Baso # (Auto) 0.1 (0.0-0.2) X10*3/uL Abs Immat Gran (auto) 0.01 (0.00-0.03) X10*3/uL Absolute Neuts (auto) 2.0 (2.0-8.3) x10*3/uL Absolute Nucleated RBC 0.000 (0.0-0.012) X10*3/uL Nucleated RBC % (auto) 0.0 (0.0-0.2) /100WBC Sodium 140 (135-145) mmol/L Potassium 4.3 (3.3-5.1) mmol/L Chloride 102 (96-108) mmol/L Carbon Dioxide 30 H (22-29) mmol/L Anion Gap 12 (12-20) BUN 27 H (9-16) mg/dL Creatinine 1.54 H (0.5-1.4) mg/dL Estim Creat Clear Calc 26.5 Estimated GFR 32 Random Glucose 96 (60-115) mg/dL Calcium 8.9 (8.4-10.2) mg/dL Critical Care Time Critical Care Time Critical Care Time: Yes Total Critical Care Time: 30 Attestation: I personally attest to this time spent taking care of the patient. Discharge Plan Discharge Clinical Impression: Lymphedema of both lower extremities, Nonhealing nonsurgical wound Patient Disposition: Home, Self-Care Instructions: Chronic Wounds (ED), Lymphedema (ED) Additional Instructions: 1. Reanudar todos los medicamentos caseros seg?n lo prescrito. 2. Se le milan proporcionado cristóbal remisi?n para el seguimiento con el m?dico de enfermedades infecciosas. Por favor llame el lunes por la ma?juan miguel. 3. Contin?e y ilnnea un seguimiento con vásquez proveedor de atenci?n primaria. Regrese a la aden de emergencias si los s?ntomas empeoran. 1. Resume all home medications as prescribed. 2. You have been provided with a referral to follow-up with the infectious disease doctor. Please call on Monday morning. 3. Go ahead and follow-up with your primary care provider. Return to the ER for any worsening symptoms. Prescriptions: No Action midodrine 5 mg tablet 5 mg PO TID warfarin 2.5 mg tablet 2.5 mg PO DAILY Hold Instructions: Resume on 10/13/21. monitor inr, restart when <3 levothyroxine 50 mcg tablet 50 mcg PO DAILY ferrous sulfate [FeroSul] 325 mg (65 mg iron) tablet 325 mg PO DAILY omeprazole 20 mg capsule,delayed release(DR/EC) 20 mg PO DAILY@0630 loratadine 10 mg tablet 10 mg PO DAILY calcium carbonate-vitamin D3 600 mg(1,500mg) -400 unit tablet 1 tab PO BID cholecalciferol (vitamin D3) [Vitamin D3] 50 mcg (2,000 unit) capsule 50 mcg PO DAILY Xolair 150 mg recon soln 300 mg subcut Q2W Trelegy Ellipta 100-62.5-25 mcg blister with device 1 puff inhalation DAILY doxycycline hyclate 100 mg tablet 100 mg PO BID 5 Days Qty: 10 0RF cephalexin 500 mg capsule 500 mg PO BID 5 Days Qty: 10 0RF albuterol sulfate 2.5 mg /3 mL (0.083 %) solution for nebulization 2.5 mg inhalation Q4H PRN (Reason: Shortness Of Breath) montelukast 10 mg tablet 1 tab PO DAILY mupirocin 2 % ointment 1 applic topical BID-TID furosemide 20 mg tablet 60 mg PO DAILY amiodarone 200 mg tablet 200 mg DAILY Rx Instructions: Take 400mg twice daily for a total of 14 days (08/31/21), then 200mg daily ammonium lactate 12 % Lotion 1 appl topical BID 30 Days 0RF Protocol: Apply to: Apply to: Bilateral lower extremities clotrimazole 1 % Cream 1 appl topical BID 7 Days 0RF Protocol: Apply to: Apply to: Feet between toes bilaterally amoxicillin-pot clavulanate 875-125 mg tablet 1 tab PO Q12H Qty: 20 0RF doxycycline hyclate 100 mg capsule 100 mg PO BID Qty: 20 0RF doxycycline hyclate 100 mg capsule 100 mg PO BID Qty: 20 0RF Referrals: Laxmi Gutierrez MD [Primary Care Provider] - Eleni Kraus MD [Physician] - (This is an 82-year-old female with bilateral lower extremity lymphedema, she has a nonhealing wound the anterior aspect on the right lower extremity that does not appear to be bacterial nature. I highly suspect this may be fungal. Would appreciate you evaluating and treating as indicated.) Print Language: Israeli
== END 2022-08-06 14:14 | disposition home or self-care (01) ==
PROVIDERS: Emergency Provider Student in an Organized Health Care Education/Training Program; PCP Internal Medicine
DX: I89.0 Lymphedema, not elsewhere classified (principal); S81.801D Unspecified open wound, right lower leg, subsequent encounter; X58.XXXD Exposure to other specified factors, subsequent encounter; L03.115 Cellulitis of right lower limb; I11.0 Hypertensive heart disease with heart failure; I50.9 Heart failure, unspecified; Z79.01 Long term (current) use of anticoagulants; Z79.899 Other long term (current) drug therapy
CPT/HCPCS: 36415; 80048; 85025; 87040; 99283; 99284

== ENCOUNTER → 2022-08-19 11:27 | Outpatient (BNVA) | payer OTHER, SELFPAY | PROVIDERS: PCP Internal Medicine; Visit Provider Internal Medicine | DX: L03.116 Cellulitis of left lower limb (principal); L03.115 Cellulitis of right lower limb | CPT/HCPCS: 99202; 99212 ==

== ENCOUNTER 2022-12-12 08:01 | Outpatient (RCR) | payer OTHER, SELFPAY | END 2023-01-31 16:00 | disposition home or self-care (01) | LOC: HO.WCC 08:01 | PROVIDERS: Visit Provider Physician Assistant | DX: E11.622 Type 2 diabetes mellitus with other skin ulcer (principal); L97.812 Non-pressure chronic ulcer of other part of right lower leg with fat layer exposed; E11.51 Type 2 diabetes mellitus with diabetic peripheral angiopathy without gangrene; E11.22 Type 2 diabetes mellitus with diabetic chronic kidney disease; I13.0 Hypertensive heart and chronic kidney disease with heart failure and stage 1 through stage 4 chronic kidney disease, or unspecified chronic kidney disease; N18.9 Chronic kidney disease, unspecified; I50.9 Heart failure, unspecified | CPT/HCPCS: 11042; 11045; 97597; 99212 ==

== ENCOUNTER 2023-06-16 11:07 | Outpatient (REF) | payer OTHER, SELFPAY ==
[2023-06-16 11:34] LABS: MANUAL DIFF FLAG NO
[2023-06-16 12:02] LABS: Basophils Absolute Auto 0.1 X10*3/uL (0.0-0.2); Basophils Percent Auto 1.4 % (0-2); Eosinophils Absolute Auto 0.1 X10*3/uL (0.0-0.4); Eosinophils Percent Auto 3.7 % (0-4); Hematocrit 36.8 % (37.0-47.0); Hemoglobin 11.2 g/dl (12.0-16.0); Lymphocytes Absolute Auto 1.5 X10*3/uL (1.2-4.9); Lymphocytes Percent Auto 43.4 % (20-40); Mean Corpuscular HGB Conc 30.4 g/dl (31.0-35.0); Mean Corpuscular Hemoglobin 29.7 pg (27.0-33.0); Mean Corpuscular Volume 97.6 fL (80.0-98.0); Mean Platelet Volume 11.2 fL (9.4-12.3); Monocytes Absolute Auto 0.4 X10*3/uL (0.1-1.2); Monocytes Percent Auto 11.1 % (2-11); Neutrophils Absolute Auto 1.4 x10*3/uL (2.0-8.3); Neutrophils Percent Auto 40.4 % (45-73); Platelet Count 165 X10*3/uL (160-400); Red Blood Count 3.77 X10*6/uL (4.20-5.50); Red Cell Distribution Width 13.2 % (11.0-16.0); White Blood Count 3.5 X10*3/uL (4.8-10.8)
[2023-06-16 12:42] LABS: Albumin Level 3.2 g/dL (3.5-5.0); Anion Gap 9 (12-20); Blood Urea Nitrogen 27 mg/dL (9-16); Calcium 8.8 mg/dL (8.4-10.2); Carbon Dioxide 33 mmol/L (22-29); Chloride 103 mmol/L (96-108); Estimated Glomerular Filt Rate 33; Magnesium 1.9 mg/dL (1.6-2.6); Phosphorus 2.7 mg/dL (2.7-4.5); Potassium 3.9 mmol/L (3.3-5.1); Sodium 141 mmol/L (135-145)
[2023-06-16 13:00] LABS: Parathyroid Hormone Intact 116.5 pg/mL (8.7-77.1)
[2023-06-16 13:14] LABS: Vitamin D 25-OH Total 38.2 ng/mL (>30)
[2023-06-16 13:37] LABS: Appearance Urine Clear; Color Urine Yellow; Glucose Urine UA Negative (Negative); Leukocyte Esterase Urine Small (1+) (Negative); Nitrite Urine Negative (Negative); PH 6.5 (5.0-9.0); Specific Gravity - Urine 1.015 (1.005-1.025); UMIC TRIGGER UA YES; Urine Blood Moderate (2+) (Negative); Urine Ketones Negative (Negative); Urine Protein Negative (Neg-Trace)
[2023-06-16 13:48] LABS: Creatinine Urine 107.41 mg/dL; Microalbum/Creatinine Ratio Ur 6.5 ug/mg cr (<30); Protein/Creatinine Ratio, Ur 0.07 (<0.2); Total Protein Urine Random 8 mg/dL (<12)
[2023-06-16 13:54] LABS: Bacteria Urine None Seen (None Seen); Hyaline Casts Urine 0-2 /LPF (0-2); WBC Urine 0-5 /HPF (0-5)
== END 2023-06-16 11:08 | disposition home or self-care (01) ==
LOC: HO.LAB 11:07
PROVIDERS: Visit Provider Internal Medicine Nephrology
DX: E11.22 Type 2 diabetes mellitus with diabetic chronic kidney disease (principal); N18.32 Chronic kidney disease, stage 3b
CPT/HCPCS: 36415; 80051; 81001; 81003; 82040; 82043; 82306; 82310; 82565; 82570; 83735; 83970; 84100; 84156; 84520; 85025

== ENCOUNTER 2023-08-03 12:50 | Outpatient (RCR) | payer OTHER, SELFPAY | END 2023-08-25 13:01 | disposition home or self-care (01) | LOC: HO.WCC 12:50 | PROVIDERS: Visit Provider Physician Assistant | DX: Z09 Encounter for follow-up examination after completed treatment for conditions other than malignant neoplasm (principal); I87.321 Chronic venous hypertension (idiopathic) with inflammation of right lower extremity; I73.9 Peripheral vascular disease, unspecified; Q82.0 Hereditary lymphedema; I13.0 Hypertensive heart and chronic kidney disease with heart failure and stage 1 through stage 4 chronic kidney disease, or unspecified chronic kidney disease; I50.9 Heart failure, unspecified; N18.30 Chronic kidney disease, stage 3 unspecified; Z87.2 Personal history of diseases of the skin and subcutaneous tissue | CPT/HCPCS: 11042; 97597; 99212 ==

== ENCOUNTER 2023-10-24 12:30 | Outpatient (RCR) | payer OTHER, SELFPAY | END 2023-12-13 15:59 | disposition home or self-care (01) | LOC: HO.WCC 12:30 | PROVIDERS: Visit Provider Surgery | DX: E11.622 Type 2 diabetes mellitus with other skin ulcer (principal); L97.822 Non-pressure chronic ulcer of other part of left lower leg with fat layer exposed; L97.812 Non-pressure chronic ulcer of other part of right lower leg with fat layer exposed; E11.51 Type 2 diabetes mellitus with diabetic peripheral angiopathy without gangrene; E11.22 Type 2 diabetes mellitus with diabetic chronic kidney disease; I12.9 Hypertensive chronic kidney disease with stage 1 through stage 4 chronic kidney disease, or unspecified chronic kidney disease; N18.30 Chronic kidney disease, stage 3 unspecified; Q82.0 Hereditary lymphedema; Z79.01 Long term (current) use of anticoagulants; Z79.899 Other long term (current) drug therapy | CPT/HCPCS: 11042; 97597; 97598; 99213 ==

== ENCOUNTER 2023-11-23 10:29 | Outpatient (REF) | payer OTHER, SELFPAY ==
[2023-11-23 13:52] LABS: MANUAL DIFF FLAG NO
[2023-11-23 14:03] LABS: Appearance Urine Clear; Color Urine Yellow; Glucose Urine UA Negative (Negative); Leukocyte Esterase Urine Small (1+) (Negative); Nitrite Urine Negative (Negative); PH 6.5 (5.0-9.0); Specific Gravity - Urine 1.015 (1.005-1.025); UMIC TRIGGER UA YES; Urine Blood Moderate (2+) (Negative); Urine Ketones Negative (Negative); Urine Protein Negative (Neg-Trace)
[2023-11-23 14:05] LABS: Basophils Absolute Auto 0.1 X10*3/uL (0.0-0.2); Basophils Percent Auto 1.8 % (0-2); Eosinophils Absolute Auto 0.3 X10*3/uL (0.0-0.4); Eosinophils Percent Auto 8.9 % (0-4); Hematocrit 38.7 % (37.0-47.0); Imm Gran Abs Auto 0.01 X10*3/uL (0.00-0.03); Imm Gran Pct Auto 0.3 % (0.0-0.4); Lymphocytes Absolute Auto 1.5 X10*3/uL (1.2-4.9); Lymphocytes Percent Auto 38.2 % (20-40); Mean Corpuscular Hemoglobin 29.8 pg (27.0-33.0); Mean Platelet Volume 11.6 fL (9.4-12.3); Monocytes Absolute Auto 0.4 X10*3/uL (0.1-1.2); Monocytes Percent Auto 10.7 % (2-11); Neutrophils Absolute Auto 1.5 x10*3/uL (2.0-8.3); Neutrophils Percent Auto 40.1 % (45-73); Platelet Count 154 X10*3/uL (160-400); Red Blood Count 4.03 X10*6/uL (4.20-5.50); Red Cell Distribution Width 13.8 % (11.0-16.0); White Blood Count 3.8 X10*3/uL (4.8-10.8)
[2023-11-23 14:16] LABS: Bacteria Urine None Seen (None Seen); Hyaline Casts Urine 0-2 /LPF (0-2); WBC Urine 0-5 /HPF (0-5)
[2023-11-23 14:35] LABS: Albumin Level 3.4 g/dL (3.5-5.0); Anion Gap 14 (12-20); Blood Urea Nitrogen 36 mg/dL (9-16); Calcium 9.2 mg/dL (8.4-10.2); Carbon Dioxide 30 mmol/L (22-29); Chloride 103 mmol/L (96-108); Estimated Glomerular Filt Rate 29; Potassium 3.9 mmol/L (3.3-5.1); Sodium 143 mmol/L (135-145)
[2023-11-23 14:38] LABS: Creatinine Urine 84.85 mg/dL; Total Protein Urine Random < 7 mg/dL (<12)
[2023-11-23 14:39] LABS: Vitamin D 25-OH Total 6.2 ng/mL (>30)
[2023-11-23 14:40] LABS: Parathyroid Hormone Intact 199.2 pg/mL (8.7-77.1)
== END 2023-11-23 10:30 | disposition home or self-care (01) ==
LOC: HO.10HDL 10:29
PROVIDERS: Visit Provider Internal Medicine Nephrology
DX: E11.22 Type 2 diabetes mellitus with diabetic chronic kidney disease (principal); N18.32 Chronic kidney disease, stage 3b; N25.0 Renal osteodystrophy
CPT/HCPCS: 36415; 80051; 81001; 82040; 82043; 82306; 82310; 82565; 82570; 83735; 83970; 84100; 84156; 84520; 85025

== ENCOUNTER 2023-12-22 13:52 | Outpatient (RCR) | payer OTHER, SELFPAY | END 2024-05-17 14:03 | disposition home or self-care (01) | LOC: HO.WCC 13:52 | PROVIDERS: Visit Provider Physician Assistant | DX: L97.812 Non-pressure chronic ulcer of other part of right lower leg with fat layer exposed (principal); Q82.0 Hereditary lymphedema | CPT/HCPCS: 11042; 11045; 99212; 99213 ==

== ENCOUNTER 2024-05-29 09:22 | Inpatient (IN) | payer OTHER, SELFPAY ==
[2024-05-29] VITALS (7 sets, daily range): BP systolic 110–133; BP diastolic 63–98; PULSE 65–73; RESP 16–20; TEMP 34.8–36.7; O2SAT 95–97; BMI 32.6
--- NOTE | ~2024-05-29 | XR_ITS ---
EXAMINATION: XR CHEST CLINICAL INFORMATION: cough COMPARISON: 10/05/2021 TECHNIQUE: 2 views of the chest were obtained. FINDINGS: Moderate cardiomegaly with mild to moderate distention of the pulmonary vessels and a [id number] amount of interstitial edema. No effusions. Upper lungs grossly clear. Chronic arthritic change in both shoulders. XR/XR chest 2V IMPRESSION: Moderate congestive change versus fluid overload. Electronically signed by: Bridger Guerrero MD 05/29/2024 01:16 PM [facility]
[2024-05-29 10:10] LABS: MANUAL DIFF FLAG NO
[2024-05-29 10:13] LABS: Basophils Percent Auto 0.5 % (0-2); Eosinophils Absolute Auto 0.1 X10*3/uL (0.0-0.4); Eosinophils Percent Auto 1.8 % (0-4); Hematocrit 36.3 % (37.0-47.0); Hemoglobin 11.3 g/dl (12.0-16.0); Imm Gran Abs Auto 0.04 X10*3/uL (0.00-0.03); Imm Gran Pct Auto 0.5 % (0.0-0.4); Lymphocytes Absolute Auto 0.9 X10*3/uL (1.2-4.9); Mean Corpuscular HGB Conc 31.1 g/dl (31.0-35.0); Mean Corpuscular Hemoglobin 29.7 pg (27.0-33.0); Mean Corpuscular Volume 95.5 fL (80.0-98.0); Monocytes Absolute Auto 0.4 X10*3/uL (0.1-1.2); Monocytes Percent Auto 4.6 % (2-11); Neutrophils Absolute Auto 6.3 x10*3/uL (2.0-8.3); Neutrophils Percent Auto 81.6 % (45-73); Platelet Count 130 X10*3/uL (160-400); Red Cell Distribution Width 14.6 % (11.0-16.0); White Blood Count 7.8 X10*3/uL (4.8-10.8)
[2024-05-29 10:22] LABS: INTERNATIONAL NORM RATIO 4.5 (0.9-1.1); Prothrombin Time 52.4 SEC (10.9-12.4)
[2024-05-29 10:25] LABS: Alanine Aminotransferase 25 U/L (0-31); Albumin Level 3.1 g/dL (3.5-5.0); Alkaline Phosphatase 106 U/L (39-117); Anion Gap 12 (12-20); Aspartate Amino Transferase 25 U/L (5-31); Bilirubin Direct 0.3 mg/dL (0.0-0.5); Bilirubin Total 0.6 mg/dL (0.0-1.0); Blood Urea Nitrogen 37 mg/dL (9-16); Calcium 8.7 mg/dL (8.4-10.2); Carbon Dioxide 32 mmol/L (22-29); Chloride 106 mmol/L (96-108); Creatinine Clr Calc Pharmacy 28.3; Estimated Glomerular Filt Rate 33; Glucose Random 177 mg/dL (60-115); Lipase 25 U/L (8-78); Potassium 3.7 mmol/L (3.3-5.1); Sodium 146 mmol/L (135-145); Total Protein 8.1 g/dL (6.5-8.0)
[2024-05-29 10:48] LABS: Influenza A PCR NEGATIVE (Negative); Influenza B PCR NEGATIVE (Negative); Resp Syncy Virus RNA Qual PCR NEGATIVE (Negative); SARS COV2 PCR INHOUSE NEGATIVE (Negative)
--- NOTE | 2024-05-29 11:55 | ECG_ITS ---
Test Reason : SOB Blood Pressure : / mmHG Vent. Rate : 070 BPM Atrial Rate : 000 BPM P-R Int : 000 ms QRS Dur : 106 ms QT Int : 416 ms P-R-T Axes : 000 -12 -19 degrees QTc Int : 449 ms Atrial fibrillation Cannot rule out Anterior infarct (cited on or before 05-OCT-2021) Abnormal ECG When compared with ECG of 05-OCT-2021 18:20, Nonspecific T wave abnormality now evident in Lateral leads Referred By: Yola Navarro Electronically Signed By:Elgin Hamilton
--- NOTE | 2024-05-29 11:56 | ED_ITS ---
HPI - Recheck/Abnormal Lab/Rx General Chief Complaint: Recheck/Abnormal Lab/Rx Stated Complaint: abnormal labs? blood in ajay Time Seen by Provider: 05/29/24 11:53 Source: patient, EMS and old records reviewed Mode of arrival: EMS Limitations: no limitations History of Present Illness ED Provider: VIRGIL LOZANO narrative: 84 yo female with PMH of afib on coumadin, hypothyroidism, CHF, CKD, lymphedema here with c/o having dark stools and on coumadin she was called yesterday for lab INR 5.7. She felt her stools were dark and she notes a little bit of a cough. She has increased edema in her legs. Her family notes she has increased wob. No fevers, cough and one day not today (vague) she saw a streak of blood in the sputum. [facility] sent her here for dark stools and INR 5.7. No chest pain or abdominal pain. Cough has been for a few weeks. Last dose of warfarin was Monday MD complaint: abnormal lab Onset/Timin Initial visit (ago): day(s) Initial visit for: other Returns today for: called because of abnormal lab/test Description of abnormal result: INR 5.7 Associated symptoms: other (cough) Related Data Home Medications ?Medication ?Instructions ?Recorded ?Confirmed cholecalciferol (vitamin D3) 50 50 mcg PO DAILY 02/04/21 05/29/24 mcg (2,000 unit) capsule (Vitamin D3) ferrous sulfate 325 mg (65 mg 325 mg PO DAILY 02/04/21 05/29/24 iron) tablet (FeroSul) loratadine 10 mg tablet 10 mg PO DAILY 02/04/21 05/29/24 omeprazole 20 mg capsule,delayed 20 mg PO DAILY@0630 02/04/21 05/29/24 release warfarin 2.5 mg tablet 2.5 mg PO DAILY 02/04/21 05/29/24 fluticasone fur. 100 mcg-umeclid 1 puff inhalation DAILY 05/03/21 05/29/24 62.5 mcg-vilant 25 mcg inhalat.powder (Trelegy Ellipta) albuterol sulfate 2.5 mg/3 mL 2.5 mg inhalation Q4H PRN 08/09/21 05/29/24 (0.083 %) solution for nebulization Shortness Of Breath montelukast 10 mg tablet 1 tab PO DAILY 08/09/21 05/29/24 cyanocobalamin (vitamin B-12) 1,000 mcg PO DAILY 05/29/24 05/29/24 1,000 mcg tablet diltiazem HCl 240 mg 240 mg PO DAILY 05/29/24 05/29/24 capsule,extended release 24 hr furosemide 40 mg tablet 40 mg PO BID 05/29/24 05/29/24 levothyroxine 75 mcg tablet 75 mcg PO DAILY 05/29/24 05/29/24 Allergies Allergy/AdvReac Type Severity Reaction Status Date / Time lisinopril [LISINOPRIL] Allergy Unknown UNKNOWN Verified 05/29/24 09:28 simvastatin [SIMVASTATIN] Allergy Unknown UNKNOWN Verified 05/29/24 09:28 Review of Systems 2 Review of Systems: Constitutional : No Fever, No Chills, No Fatigue ENT/Mouth : No sore throat, No Rhinorrhea Eyes: No Eye Pain, No Swelling, No Redness Cardiovascular : No Chest Pain, No SOB, No Dyspnea on Exertion Respiratory : pos Cough, No Sputum Gastrointestinal : No Nausea, No Vomiting, No Diarrhea, No abdominal Pain Genitourinary : No Dysuria, No Urinary Frequency, No Hematuria, Musculoskeletal : No joint pain, No Myalgias, No Joint Swelling Skin : No Skin Lesions, No rash Neuro : No Weakness, No Numbness, No Dizziness, no Headache All other systems reviewed and are negative [facility] Past Medical History Attestation statement: The following information was validated with the patient. Source: old records reviewed Medical History Tricuspid valve regurgitation Pulmonary hypertension Acute on chronic right heart failure Idiopathic hypotension Sepsis Cellulitis of right leg Lymphedema Non-healing wound of right lower extremity Venous stasis dermatitis of right lower extremity CHF (congestive heart failure) Hypothyroid Afib Asthma HTN (hypertension) Surgical History S/P hip replacement Family History Family History Mother Gastric cancer Social History Social History Household Members: None Housing: Apartment Do you presently have visiting nurse or other home services: Yes Alcohol intake: never Comment: sleeping in recliner Patient Tobacco Use Status: Never used Tobacco Smoked in Last 30 Days: No Second Hand Smoke Exposure: No Use of substances other than those prescribed or required for medical reasons: No Advance Directives: Yes Advance Directives on File: Yes Advance Directives Date on File: 02/05/21 Do you have a plan to hurt others: No Plan service: No Current occupational status: disabled Physical Exam 2 Vital Signs: Vital Signs: Last Vital Signs Temp 98.0 F 05/29/24 18:31 Pulse 72 05/29/24 18:31 Resp 20 05/29/24 18:31 BP 132/67 05/29/24 18:31 Pulse Ox 97 05/29/24 18:31 O2 Del Method Room Air 05/29/24 18:31 BMI result Body Mass Index 32.6 Appearance: Alert. Oriented X3. No acute distress. Eyes: Pupils equal, round and reactive to light. ENT: Pharynx normal. Neck: Normal inspection. Neck supple. CVS: irregular heart rate and rhythm. Pulses normal. Respiratory: No respiratory distress. Breath sounds rales in both bases Abdomen: Soft and non-tender. Rectal: brown stool noted Skin: Skin warm and dry. Normal skin color. Normal skin turgor. Extremities: 3+ symmetric pitting lower extremity edema. Neuro: Oriented X 3. No motor deficit. No sensory deficit. Medications Administered Generic Name Dose Route Start Last Admin Trade Name Freq PRN Reason Stop Dose Admin Furosemide 40 mg 05/29/24 18:00 05/29/24 17:41 Furosemide 40 Mg/4 Ml Vial IVPUSH 40 mg BID@0900,1800 SEBASTIAN Administration Protocol Sodium Chloride 3 ml 05/29/24 16:00 05/29/24 16:26 0.9 % Sodium Chloride Flush 3 Ml Syringe IVFLUSH 3 ml QSHIFT SEBASTIAN Administration Discontinued Medications Generic Name Dose Route Start Last Admin Trade Name Freq PRN Reason Stop Dose Admin Furosemide 40 mg 05/29/24 13:24 05/29/24 14:18 Furosemide 40 Mg/4 Ml Vial IVPUSH 05/29/24 13:25 40 mg STAT STA Administration Protocol Medical Decision Making Medical Decision Making MDM Narrative: 84 yo female with PMH of afib on coumadin, hypothyroidism, CHF, CKD, lymphedema here with c/o INR 5.7 and noted some dark stools recent she has some dyspnea and also a cough for 3 weeks that will not go away. Her swelling has also worsened. No overt bleeding today and VS stable. Last dose coumadin was Monday night. 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 her exam is more concering for CHF - leg edema, rales depending on work up possible admission for CHF I have ordered her IV lasix CXR is very volume overloaded will admit for dyspnea and IV diuresis Consult Healthcare Provider Management of the patient was discussed with: Hospitalist (will admit) Lab Data MDM Lab Attestation statement: I reviewed the patient's lab results. 05/29/24 10:07 05/29/24 10:07 Labs: Lab Results 05/29/24 05/29/24 Range/Units 10:07 12:25 WBC 7.8 (4.8-10.8) X10*3/uL RBC 3.80 L (4.20-5.50) X10*6/uL Hgb 11.3 L (12.0-16.0) g/dl Hct 36.3 L (37.0-47.0) % MCV 95.5 (80.0-98.0) fL MCH 29.7 (27.0-33.0) pg MCHC 31.1 (31.0-35.0) g/dl RDW 14.6 (11.0-16.0) % Plt Count 130 L (160-400) X10*3/uL MPV 11.0 (9.4-12.3) fL Immature Gran % (Auto) 0.5 H (0.0-0.4) % Neut % (Auto) 81.6 H (45-73) % Lymph % (Auto) 11.0 L (20-40) % [place]oun % (Auto) 4.6 (2-11) % Eos % (Auto) 1.8 (0-4) % Baso % (Auto) 0.5 (0-2) % Lymph # (Auto) 0.9 L (1.2-4.9) X10*3/uL [place] # (Auto) 0.4 (0.1-1.2) X10*3/uL Eos # (Auto) 0.1 (0.0-0.4) X10*3/uL Baso # (Auto) 0.0 (0.0-0.2) X10*3/uL Abs Immat Gran (auto) 0.04 H (0.00-0.03) X10*3/uL Absolute Neuts (auto) 6.3 (2.0-8.3) x10*3/uL Absolute Nucleated RBC 0.000 (0.0-0.012) X10*3/uL Nucleated RBC % (auto) 0.0 (0.0-0.2) /100WBC PT 52.4 H (10.9-12.4) SEC INR 4.5 H (0.9-1.1) Sodium 146 H (135-145) mmol/L Potassium 3.7 (3.3-5.1) mmol/L Chloride 106 (96-108) mmol/L Carbon Dioxide 32 H (22-29) mmol/L Anion Gap 12 (12-20) BUN 37 H (9-16) mg/dL Creatinine 1.51 H (0.5-1.4) mg/dL Estim Creat Clear Calc 28.3 Estimated GFR 33 Random Glucose 177 H (60-115) mg/dL Calcium 8.7 (8.4-10.2) mg/dL Total Bilirubin 0.6 (0.0-1.0) mg/dL Direct Bilirubin 0.3 (0.0-0.5) mg/dL AST 25 (5-31) U/L ALT 25 (0-31) U/L Alkaline Phosphatase 106 (39-117) U/L Troponin I High Sens 3.7 (<3.5-17.0) ng/L B-Natriuretic Peptide 183 H (<100) pg/mL Total Protein 8.1 H (6.5-8.0) g/dL Albumin 3.1 L (3.5-5.0) g/dL Lipase 25 (8-78) U/L Stool Occult Blood NEGATIVE (NEGATIVE) Influenza Type A (PCR) NEGATIVE (Negative) Influenza Type B (PCR) NEGATIVE (Negative) RSV RNA Qual (PCR) NEGATIVE (Negative) SARS-CoV-2 RNA (RT-PCR) NEGATIVE (Negative) Independent Interpretation I performed an independent interpretation of an: EKG and Plain X-Ray (pulm edema) Interpretation: Rate: 70 Rhythm: afib Keeler: left Normal QRS complex. ST T wave : no REGINALD qTC: 449 prior studies: no acute ischemia The study has been interpreted contemporaneously by me. . Radiology Impression Discussion of test interpretation with radiology: I have reviewed the radiologist's reading. Independent Historian Clinical information obtained from an independent historian. History obtained from or confirmed by: EMS and Other (family) External Record Review External record reviewed: Inpatient record and Outpatient record Discharge Plan Discharge Clinical Impression: Elevated INR, Leg edema Pulmonary edema Qualifiers: Chronicity: acute Qualified Code(s): J81.0 - Acute pulmonary edema Patient Disposition: Admitted As Inpatient
[2024-05-29 12:21] LABS: Troponin-I High Sensitivity 3.7 ng/L (<3.5-17.0)
[2024-05-29 12:26] LABS: B Type Natriuretic Peptide 183 pg/mL (<100)
[2024-05-29 12:32] LABS: OBS Int Ctl Valid YES; OBS1 NEGATIVE (NEGATIVE)
[2024-05-29] MEDS: Furosemide 40 MG/4 ML VIAL IVPUSH ×2 (14:18→17:41)
--- NOTE | 2024-05-29 15:09 | P.HPHOSP_ITS ---
History of Present Illness Date of Service: 05/29/24 Chief Complaint: sob, edema, black stool 84F PMH chronic afib on coumadin, obesity, chronic diastolic chf, CKD III, hypothyroid, chronic lymphedema, moderate persistent asthma presented with shortness of breath, worsening lower extremity edema, black stools. Patient reports feeling weak and short of breath over the last few days. Also noted black stools and elevated INR of 4.7. Denies any chest pain, fever, chills, dysuria. Does note orthopnea. In ED found to have pulmonary edema on chest x- ray. Stool guaiac negative. INR 4.5 with stable hemoglobin. Review of Systems 2 Review of Systems: Yes all other systems are reviewed and are negative [facility] Medical History Tricuspid valve regurgitation Pulmonary hypertension Acute on chronic right heart failure Idiopathic hypotension Sepsis Cellulitis of right leg Lymphedema Non-healing wound of right lower extremity Venous stasis dermatitis of right lower extremity CHF (congestive heart failure) Hypothyroid Afib Asthma HTN (hypertension) Family History Mother Gastric cancer Surgical History S/P hip replacement Social History Household Members: None Housing: Apartment Do you presently have visiting nurse or other home services: Yes Alcohol intake: never Comment: sleeping in recliner Patient Tobacco Use Status: Never used Tobacco Smoked in Last 30 Days: No Second Hand Smoke Exposure: No Use of substances other than those prescribed or required for medical reasons: No Advance Directives: Yes Advance Directives on File: Yes Advance Directives Date on File: 02/05/21 Do you have a plan to hurt others: No Plan service: No Current occupational status: disabled Meds Allergies Allergy/AdvReac Type Severity Reaction Status Date / Time lisinopril [LISINOPRIL] Allergy Unknown UNKNOWN Verified 05/29/24 09:28 simvastatin [SIMVASTATIN] Allergy Unknown UNKNOWN Verified 05/29/24 09:28 Active Medications: Current Medications Acetaminophen (Acetaminophen 325 Mg Tablet) 650 mg PO Q6H PRN PRN Reason: Pain, Mild (Pain Scale 1-3), fever or headache Calcium Carbonate (Calcium Carbonate 750 Mg Tab.Chew) 750 mg PO Q4H PRN PRN Reason: Heartburn Furosemide (Furosemide 40 Mg/4 Ml Vial) 40 mg IVPUSH BID@0900,1800 COUNTS INCLUDE 234 BEDS AT THE [facility]; Protocol Magnesium Hydroxide (Milk Of Magnesia 30 Ml Oral.Susp) 30 ml PO DAILY PRN PRN Reason: Constipation Melatonin (Melatonin 3 Mg Tablet) 6 mg PO BEDTIME PRN PRN Reason: Insomnia Sodium Chloride (0.9 % Sodium Chloride Flush 3 Ml Syringe) 3 ml IVFLUSH QSHIFT COUNTS INCLUDE 234 BEDS AT THE [facility] Home Medications ?Medication ?Instructions ?Recorded ?Confirmed ?Last Taken ?Type cholecalciferol (vitamin D3) 50 50 mcg PO DAILY 02/04/21 05/29/24 05/28/24 History mcg (2,000 unit) capsule (Vitamin D3) ferrous sulfate 325 mg (65 mg 325 mg PO DAILY 02/04/21 05/29/24 05/28/24 History iron) tablet (FeroSul) loratadine 10 mg tablet 10 mg PO DAILY 02/04/21 05/29/24 05/28/24 History omeprazole 20 mg capsule,delayed 20 mg PO DAILY@0630 02/04/21 05/29/24 05/28/24 History release warfarin 2.5 mg tablet 2.5 mg PO DAILY 02/04/21 05/29/24 05/28/24 History fluticasone fur. 100 mcg-umeclid 1 puff inhalation DAILY 05/03/21 05/29/24 05/28/24 History 62.5 mcg-vilant 25 mcg inhalat.powder (Trelegy Ellipta) albuterol sulfate 2.5 mg/3 mL 2.5 mg inhalation Q4H PRN 08/09/21 05/29/24 Unknown History (0.083 %) solution for nebulization Shortness Of Breath montelukast 10 mg tablet 1 tab PO DAILY 08/09/21 05/29/24 05/28/24 History cyanocobalamin (vitamin B-12) 1,000 mcg PO DAILY 05/29/24 05/29/24 05/28/24 History 1,000 mcg tablet diltiazem HCl 240 mg 240 mg PO DAILY 05/29/24 05/29/24 05/28/24 History capsule,extended release 24 hr furosemide 40 mg tablet 40 mg PO BID 05/29/24 05/29/24 05/28/24 History levothyroxine 75 mcg tablet 75 mcg PO DAILY 05/29/24 05/29/24 05/28/24 History Physical Exam 2 Vital Signs and Narrative: Vital Signs: Last Vital Signs Temp 94.7 F L 05/29/24 12:06 Pulse 67 05/29/24 12:06 Resp 19 05/29/24 12:06 BP 115/66 05/29/24 14:18 Pulse Ox 95 05/29/24 12:06 O2 Del Method Room Air 05/29/24 12:06 BMI result Body Mass Index 32.6 General: AO X 3, no acute distress Resp: Crackles bilateral, no accessory muscles used CVS: S1,S2, irregular, 3+ bilateral edema GI: soft, non tender, non distended Neuro: motor grossly intact, alert Psych: appropriate affect, appropriate insight Results Labs 05/29/24 10:07 05/29/24 10:07 Labs: Laboratory Results - last 24 hr 05/29/24 05/29/24 10:07 12:25 MCV 95.5 MCH 29.7 MCHC 31.1 RDW 14.6 Plt Count 130 L MPV 11.0 Immature Gran % (Auto) 0.5 H Neut % (Auto) 81.6 H Lymph % (Auto) 11.0 L [place] % (Auto) 4.6 Eos % (Auto) 1.8 Baso % (Auto) 0.5 Lymph # (Auto) 0.9 L [place] # (Auto) 0.4 Eos # (Auto) 0.1 Baso # (Auto) 0.0 Abs Immat Gran (auto) 0.04 H Absolute Neuts (auto) 6.3 Absolute Nucleated RBC 0.000 Nucleated RBC % (auto) 0.0 PT 52.4 H INR 4.5 H Anion Gap 12 Estim Creat Clear Calc 28.3 Estimated GFR 33 Random Glucose 177 H Calcium 8.7 Total Bilirubin 0.6 Direct Bilirubin 0.3 AST 25 ALT 25 Alkaline Phosphatase 106 Troponin I High Sens 3.7 B-Natriuretic Peptide 183 H Total Protein 8.1 H Albumin 3.1 L Lipase 25 Stool Occult Blood NEGATIVE Influenza Type A (PCR) NEGATIVE Influenza Type B (PCR) NEGATIVE RSV RNA Qual (PCR) NEGATIVE SARS-CoV-2 RNA (RT-PCR) NEGATIVE Imaging Radiologist's Impressions: Impressions Chest X-Ray 05/29/24 09:31 IMPRESSION: Moderate congestive change versus fluid overload. Electronically signed by: Bridger Guerrero MD 05/29/2024 01:16 PM [facility] Assessment and Plan (1) CKD (chronic kidney disease): Status: Acute Plan 84F PMH chronic afib on coumadin, obesity, chronic diastolic chf, CKD III, hypothyroid, chronic lymphedema, moderate persistent asthma presented with shortness of breath, worsening lower extremity edema, black stools Acute on chronic diastolic/right-sided CHF IV Lasix, check echo, monitor electrolytes Dark stools Guaiac negative, likely due to p.o. iron Chronic atrial fibrillation with supratherapeutic INR Hold Coumadin until INR under 3 Continue diltiazem Obesity Weight loss recommended CKD 3 Stable Hypothyroid Levothyroxine Chronic lymphedema Weight loss, compression, elevation Moderate persistent asthma Stable, continue inhalers, Singulair DVT prophylaxis with Coumadin Full code Patient with significant CHF requiring IV diuresis for at least 2 midnights inpatient Quality Stroke Does the patient have a stroke diagnosis?: No VTE Prior VTE?: No VTE Risk Level:: Medical - moderate - high VTE Device Contraindication: Treatment Not Indicated VTE Drug Contraindication: N/A - Med Ordered
--- NOTE | 2024-05-29 16:12 | PHA.MEDREC ---
Addendum entered by Trevon Dela Cruz RPh 05/29/24 16:25: med rec reviewed Original Note: Pharmacy Consult ? Medication Reconciliation Pharmacy has completed the medication reconciliation. Spoke to patient through repairer sash and door service (Miguel) to confirm med list. Patient had a med box list of medications with her. Patient states she is no longer on Amiodarone 200 mg, Ammonium lactate cream, Calcium carbonate with D3, Clotrimozole cream, Midodrine 5 mg, Mupirocin oint, and Xolair. Patient confirmed Warfarin 2.5 mg daily, patient says her last INR was 5.7 so she is not sure of her next dose. Patient states the last time she took her medications was 05/28/24. Utilized claims and list from patient to confirm med list.
--- NOTE | 2024-05-29 16:12 | MHC.EDTECH ---
This pct assumed care of Patient at 1500 ,vitals taken ,Patient was soiled ,care given ,bed pads change ,Patient was reposition and boosted up in bed ,snacks given ,Patient belongings list done ,No apparent distress noted ,Plan of care continue .
--- NOTE | 2024-05-29 16:13 | PC.NURSE ---
Pt advised to come to ER by her doctor due to INR being 7.5 yesterday at clinic and having darker stools. Pt also reporting periods of fatigue and SOB easily. Alert and oriented, breathing even and unlabored at rest, skin pale and dry. Thai speaking only. NSR on bedside monitor, VSS. Denies any new pain, has chronic arthritis pain.
[2024-05-29] MEDS: 0.9 % Sodium Chloride Flush 3 ML SYRINGE IVFLUSH ×2 (16:26→23:25)
--- NOTE | 2024-05-29 18:32 | MHC.EDTECH ---
1800 ,rounding done ,vitals taken ,[facility] .Patient awake watching television ,Call dempsey within Pt reach .
[2024-05-29] MEDS: Flu Vacc TS2024-25(6mos up)/PF 0.5 ML SYRINGE IM (23:26)
--- NOTE | 2024-05-30 01:16 | HO.SKINPHOTO ---
Location: bilateral lower extremities Category: Stage: Length: Width: Depth: cm Location: Category: Stage: Length: Width: Depth: cm Location: Category: Stage: Length: Width: Depth: cm Location: Category: Stage: Length: Width: Depth: cm Location: Category: Stage: Length: Width: Depth: cm Location: Category: Stage: Length: Width: Depth: cm
[2024-05-30 04:00] VITALS: BP 122/66; PULSE 81; RESP 18; TEMP 36.2; O2SAT 94
[2024-05-30] MEDS: Acetaminophen 325 MG TABLET 650 MG PO (04:14)
[2024-05-30] MEDS: Levothyroxine Sodium 75 MCG TABLET PO (04:14)
[2024-05-30] MEDS: Omeprazole 20 MG CAPSULE.DR PO (04:15)
--- NOTE | 2024-05-30 07:00 | CA_ITS ---
Transthoracic Echocardiogram Patient (Last, First, Middle): Adriana Roldan G Gender: Female Date of : 1940 Age: 84 Procedure Date: 05/30/2024 Procedure Type: Transthoracic Echocardiogram Location: S3E Height: 160.02 cm Weight: 83.46 kg BSA: 1.87 m2 Heart Rate: 70 bpm BP: 122 / 66 mmHg [employer] Cream [employer] Driver: SB Referring MD: Wayne Fields MD Symptoms: chf Study Quality: Adequate ECG Rhythm: Atrial Fibrillation Conclusions: - Normal left ventricular size, thickness, systolic function, and wall motion. The visually estimated ejection fraction is between 55-60%. - Normal right ventricular cavity size and systolic function. - The left atrium is moderately dilated. The right atrium is moderately dilated. - Mild pulmonary hypertension is present. - There is mild dilatation of the ascending aorta measuring 3.90 cm. Findings Left Ventricle Normal left ventricular size, thickness, systolic function, and wall motion. The visually estimated ejection fraction is between 55-60%. Diastolic function is indeterminate on the basis of available data. Right Ventricle Normal right ventricular cavity size and systolic function. Atria The left atrium is moderately dilated. The right atrium is moderately dilated. Aortic Valve Normal aortic valve structure and function. There is no aortic valve stenosis. There is trace (trivial) aortic valve regurgitation. Mitral Valve The mitral valve appears normal. There is mild mitral valve regurgitation. There is no mitral valve stenosis. Pulmonic Valve The pulmonic valve is likely normal. Tricuspid Valve Normal tricuspid valve structure. There is mild tricuspid valve regurgitation. The right ventricular systolic pressure is 39 mmHg. Normal right atrial pressure. Mild pulmonary hypertension is present. Great Vessels There is mild dilatation of the ascending aorta measuring 3.90 cm. The visualized portions of the pulmonary artery and branches are normal. Venous The inferior vena cava is normal in size and collapses greater than 50% with inspiration. Pericardium/Pleural There is no evidence of pericardial effusion. Prior Study Comparison Changes noted compared to prior study dated: 08/17/2021. Normal LVEF, normal RV size Measurements 2D Linear Measurements IVSd: 1.04 0.6-0.9/0.6-1.0 cm LVIDd: 4.45 3.9-5.3/4.2-5.9 cm LVIDd Index: 2.38 2.4-3.2/2.2-3.1 cm/m2 LVIDs: 3.12 2.0-3.6 cm LVPWd: 0.82 0.7-1.1 cm LA Diam: 3.70 2.7-3.8/3.0-4.0 cm LAIDs Index: 1.98 1.5-2.3 cm/m2 LV Mass: 170.02 67-162/88-224 g LV Mass Index: 90.92 43-95/49-115 g/m2 LVOT Diam: 1.90 3.0+(-)1.3 cm 2D Systolic Function EF 4C: 64.10 >55% EF 2C: 63.00 >55% EF BiP: 62.30 >55% Mitral Valve MV Pk E: 1.04 E'Medial: 7.37 E/E' Med: 14.10 Aortic Valve AoV Pk Giles: 1.89 AoV Mn Giles: 1.27 AoV VTI: 0.34 AoV Pk Grad: 14.00 Aov Mn Grad: 8.00 PRINCESS Cont.VTI: 1.61 AI Pk Giles: 3.97 AI [place]: 2.35 LVOT LVOT Pk Giles: 1.07 LVOT Mn Giles: 0.81 LVOT VTI: 0.19 LVOT Pk Grad: 5.00 LVOT Mn Grad: 3.00 LVOT Diam: 1.90 LVOT Area: 2.84 Diastolic Function MV Pk E: 1.04 E'Medial: 7.37 E/E' Med: 14.10 Right Ventricle TAPSE (mm): 20.90 TVS' Giles: 11.40 Tricuspid Valve TR Pk Giles: 2.77 TR Pk Grad: 31.00 RA Press: 8.00 RVSP: 39.00 Great Vessels Aorta Sinus of Valsalva: 3.70 2.0-3.5 cm Ao Asc: 3.90 2.1-3.4 cm Pulmonary Valve PV Pk Giles: 0.89 Peak PV Grad: 3.00 Updated in Other Vendor System with Status of Final Elgin Hamliton MD electronically signed on 05/31/2024 9:37:47 PM with status of Final
[2024-05-30 07:51] VITALS: BP 111/57; PULSE 87; RESP 20; TEMP 36.5; O2SAT 93
[2024-05-30 08:03] LABS: INTERNATIONAL NORM RATIO 3.7 (0.9-1.1); Prothrombin Time 43.5 SEC (10.9-12.4)
[2024-05-30 08:13] LABS: Anion Gap 14 (12-20); Blood Urea Nitrogen 37 mg/dL (9-16); Calcium 8.9 mg/dL (8.4-10.2); Carbon Dioxide 32 mmol/L (22-29); Chloride 103 mmol/L (96-108); Creatinine Clr Calc Pharmacy 28.3; Estimated Glomerular Filt Rate 33; Glucose Fasting 72 mg/dL (60-99); Potassium 4.1 mmol/L (3.3-5.1); Sodium 145 mmol/L (135-145)
[2024-05-30 08:18] LABS: Hematocrit 34.6 % (37.0-47.0); Hemoglobin 10.9 g/dl (12.0-16.0); Mean Corpuscular HGB Conc 31.5 g/dl (31.0-35.0); Mean Corpuscular Hemoglobin 29.8 pg (27.0-33.0); Mean Corpuscular Volume 94.5 fL (80.0-98.0); Mean Platelet Volume 12.4 fL (9.4-12.3); Platelet Count 129 X10*3/uL (160-400); Red Blood Count 3.66 X10*6/uL (4.20-5.50); Red Cell Distribution Width 14.6 % (11.0-16.0); White Blood Count 6.3 X10*3/uL (4.8-10.8)
[2024-05-30] MEDS: Cyanocobalamin (Vitamin B-12) 1,000 MCG TABLET 1000 MCG PO (08:22)
[2024-05-30] MEDS: Montelukast Sodium 10 MG TABLET PO (08:22)
[2024-05-30] MEDS: dilTIAZem HCL CD 240 MG CAP.ER.DEG PO (08:22)
[2024-05-30] MEDS: Loratadine 10 MG TABLET PO (08:22)
[2024-05-30] MEDS: Furosemide 40 MG/4 ML VIAL IVPUSH ×2 (08:22→17:06)
[2024-05-30] MEDS: Cholecalciferol (Vitamin D3) 25 MCG TABLET 50 MCG PO (08:23)
[2024-05-30] MEDS: 0.9 % Sodium Chloride Flush 3 ML SYRINGE IVFLUSH ×3 (08:23→20:23)
--- NOTE | 2024-05-30 08:42 | HO.PM.IMPN ---
Subjective Subjective Date of Service: 05/30/24 Interval History: sob improving Physical Exam Vital Signs: Vital Signs: Last Vital Signs Temp 97.7 F 05/30/24 07:51 Pulse 87 05/30/24 07:51 Resp 20 05/30/24 07:51 BP 111/57 L 05/30/24 07:51 Pulse Ox 93 05/30/24 07:51 O2 Del Method Room Air 05/30/24 07:51 BMI result Body Mass Index 32.6 General: AO X 3, no acute distress Resp: Crackles at base bilateral, no accessory muscles used CVS: S1,S2, irregular, 3+ bilateral edema GI: soft, non tender, non distended Neuro: motor grossly intact, alert Psych: appropriate affect, appropriate insight Objective Data Active Medications Acetaminophen (Acetaminophen 325 Mg Tablet) 650 mg PO Q6H PRN PRN Reason: Pain, Mild (Pain Scale 1-3), fever or headache Last Admin: 05/30/24 04:14 Dose: 650 mg Documented By: LAKEISHA Albuterol Sulfate (Albuterol Sulfate (0.083%) 2.5 Mg/3 Ml Vial.Neb) 2.5 mg INHALE Q4H PRN PRN Reason: Shortness Of Breath Calcium Carbonate (Calcium Carbonate 750 Mg Tab.Chew) 750 mg PO Q4H PRN PRN Reason: Heartburn Cyanocobalamin (Cyanocobalamin (Vitamin B-12) 1,000 Mcg Tablet) 1,000 mcg PO DAILY [facility] Last Admin: 05/30/24 08:22 Dose: 1,000 mcg Documented By: SAPPHIRE Diltiazem HCl (Diltiazem Hcl Cd 240 Mg Cap.Er.Deg) 240 mg PO DAILY [facility]; Protocol Last Admin: 05/30/24 08:22 Dose: 240 mg Documented By: SAPPHIRE Fluticasone/Umeclidinium/Vilanterol (Fluticasone/Umeclidinium/Vilanterol 100/62.5/25 Blst.W.Dev) 1 puff INHALE RDAILY [facility] Furosemide (Furosemide 40 Mg/4 Ml Vial) 40 mg IVPUSH BID@0900,1800 [facility]; Protocol Last Admin: 05/30/24 08:22 Dose: 40 mg Documented By: SAPPHIRE Levothyroxine Sodium (Levothyroxine Sodium 75 Mcg Tablet) 75 mcg PO DAILY@0600 [facility] Last Admin: 05/30/24 04:14 Dose: 75 mcg Documented By: LAKEISHA Comments: Pt request early as this is the time as she is awake. Loratadine (Loratadine 10 Mg Tablet) 10 mg PO DAILY [facility] Last Admin: 05/30/24 08:22 Dose: 10 mg Documented By: SAPPHIRE Magnesium Hydroxide (Milk Of Magnesia 30 Ml Oral.Susp) 30 ml PO DAILY PRN PRN Reason: Constipation Melatonin (Melatonin 3 Mg Tablet) 6 mg PO BEDTIME PRN PRN Reason: Insomnia Montelukast Sodium (Montelukast Sodium 10 Mg Tablet) 10 mg PO DAILY [facility] Last Admin: 05/30/24 08:22 Dose: 10 mg Documented By: SAPPHIRE Omeprazole (Omeprazole 20 Mg Capsule.Dr) 20 mg PO DAILY@0630 [facility] Last Admin: 05/30/24 04:15 Dose: 20 mg Documented By: LAKEISHA Comments: Pt request early as this is the time as she is awake. Sodium Chloride (0.9 % Sodium Chloride Flush 3 Ml Syringe) 3 ml IVFLUSH QSHIFT [facility] Last Admin: 05/30/24 08:23 Dose: 3 ml Documented By: SAPPHIRE Vitamin D (Cholecalciferol (Vitamin D3) 25 Mcg Tablet) 50 mcg PO DAILY [facility] Last Admin: 05/30/24 08:23 Dose: 50 mcg Documented By: SAPPHIRE Labs 05/30/24 05:42 05/30/24 05:42 Labs: Laboratory Results - last 24 hr 05/29/24 05/29/24 05/30/24 10:07 12:25 05:42 MCV 95.5 94.5 MCH 29.7 29.8 MCHC 31.1 31.5 RDW 14.6 14.6 Plt Count 130 L 129 L MPV 11.0 12.4 H Immature Gran % (Auto) 0.5 H Neut % (Auto) 81.6 H Lymph % (Auto) 11.0 L [place] % (Auto) 4.6 Eos % (Auto) 1.8 Baso % (Auto) 0.5 Lymph # (Auto) 0.9 L [place] # (Auto) 0.4 Eos # (Auto) 0.1 Baso # (Auto) 0.0 Abs Immat Gran (auto) 0.04 H Absolute Neuts (auto) 6.3 Absolute Nucleated RBC 0.000 0.000 Nucleated RBC % (auto) 0.0 0.0 PT 52.4 H 43.5 H INR 4.5 H 3.7 H Anion Gap 12 14 Estim Creat Clear Calc 28.3 28.3 Estimated GFR 33 33 Random Glucose 177 H Fasting Glucose 72 Calcium 8.7 8.9 Magnesium 2.0 Total Bilirubin 0.6 Direct Bilirubin 0.3 AST 25 ALT 25 Alkaline Phosphatase 106 Troponin I High Sens 3.7 B-Natriuretic Peptide 183 H Total Protein 8.1 H Albumin 3.1 L Lipase 25 Stool Occult Blood NEGATIVE Influenza Type A (PCR) NEGATIVE Influenza Type B (PCR) NEGATIVE RSV RNA Qual (PCR) NEGATIVE SARS-CoV-2 RNA (RT-PCR) NEGATIVE Assessment and Plan (1) Elevated INR: Status: Acute Plan 84F PMH chronic afib on coumadin, obesity, chronic diastolic chf, CKD III, hypothyroid, chronic lymphedema, moderate persistent asthma presented with shortness of breath, worsening lower extremity edema, black stools Acute on chronic diastolic/right-sided CHF continue IV Lasix, check echo, monitor electrolytes Dark stools Guaiac negative, likely due to p.o. iron Chronic atrial fibrillation with supratherapeutic INR Holding Coumadin until INR under 3 3.7 today Continue diltiazem Obesity Weight loss recommended CKD 3 Stable Hypothyroid Levothyroxine Chronic lymphedema Weight loss, compression, elevation Moderate persistent asthma Stable, continue inhalers, Singulair DVT prophylaxis with Coumadin Full code reason for continued hospitalization:iv diuresis Quality Stroke Does the patient have a stroke diagnosis?: No VTE Prior VTE?: No VTE Risk Level:: Medical - moderate - high VTE Device Contraindication: Treatment Not Indicated VTE Drug Contraindication: N/A - Med Ordered
[2024-05-30] MEDS: Fluticasone/Umeclidinium/Vilanterol 100/62.5/25 BLST.W.DEV 1 PUFF INHALE (08:58)
[2024-05-30 08:59] VITALS: PULSE 74; RESP 15; O2SAT 94
--- NOTE | 2024-05-30 13:03 | HO.WOUND ---
Wound Consult: Initial 84yr old?female admitted to [facility] on 05/29/24 - See progress notes and H&P for detailed history.? Wound consult placed for Bilateral Lower Legs.? Patient agreeable to assessment and photo documentation.? Patient follows with outpt wound clinic recommend continued follow up at time of d/c. Bilateral lower Legs Etiology: ??Lymphdemea Present on Admission Wound Bed: difficult to assess open tissue as they are within the thickened fissures of tissue - serous drainage observed Drainage / Odor: serous no odor noted Edges: ? irregular Betty wound: ? Thickened tissue, papillomatous plaques noted throughout both lower legs, thick intact fissures noted to toes and dorsal sides of feet signifying significant fluid decrease recently. No Induration, Fluctuance or Warmth noted Pain: right leg tenderness reported Goals of Treatment: ? Elevate and moisture management with Durafiber [employer] Recommendations: 1. Turn and Reposition every 2 hours and as needed for patient comfort.? Use pillows or wedges to support off loading positions. 2. Off Load all bony prominences with use of pillows and heel boots if needed.? Apply Preventative foams where needed. ? 3. Monitor for incontinence and moisture control, use barrier creams when needed for prevention and treatment. 4. Provide adequate and supplemental nutrition.? 5. Continue low air loss mattress. 6. When applicable maintain blood glucose levels per Providers order. 7. Bilateral Lower Legs - Elevate lower legs off of surface of bed with use of pillows.? Cleanse with Denisha Cambridge, Pat dry.? Apply barrier cream to periwound. Apply layer of Durafiber to open wound beds secure with ABD pad, gauze wrap and tape.? Change every other day. continue to follow up outpt with wound clinic. Re-consult wound care Nurse for wound deterioration or wound changes.
[2024-05-30 15:14] VITALS: BP 116/62; PULSE 78; RESP 18; TEMP 36.2; O2SAT 95
[2024-05-30] MEDS: Nystatin Cream 15 GM TUBE 1 APPL TOPICAL ×2 (17:06→22:49)
[2024-05-30 20:00] VITALS: BP 137/65; PULSE 86; RESP 16; TEMP 36.2; O2SAT 99
[2024-05-31 03:35] VITALS: BP 129/64; PULSE 89; RESP 18; TEMP 37.1; O2SAT 93
[2024-05-31] MEDS: Levothyroxine Sodium 75 MCG TABLET PO (05:19)
[2024-05-31] MEDS: Omeprazole 20 MG CAPSULE.DR PO (05:19)
[2024-05-31 06:31] LABS: Anion Gap 14 (12-20); Blood Urea Nitrogen 42 mg/dL (9-16); Calcium 8.8 mg/dL (8.4-10.2); Carbon Dioxide 31 mmol/L (22-29); Chloride 103 mmol/L (96-108); Creatinine Clr Calc Pharmacy 24.1; Estimated Glomerular Filt Rate 27; Glucose Fasting 93 mg/dL (60-99); Potassium 4.2 mmol/L (3.3-5.1); Sodium 144 mmol/L (135-145)
[2024-05-31 07:05] LABS: INTERNATIONAL NORM RATIO 2.1 (0.9-1.1); Prothrombin Time 24.4 SEC (10.9-12.4)
[2024-05-31 07:16] LABS: Hemoglobin 11.2 g/dl (12.0-16.0); Mean Corpuscular HGB Conc 31.1 g/dl (31.0-35.0); Mean Corpuscular Hemoglobin 29.2 pg (27.0-33.0); Mean Platelet Volume 11.6 fL (9.4-12.3); Platelet Count 133 X10*3/uL (160-400); Red Blood Count 3.83 X10*6/uL (4.20-5.50); Red Cell Distribution Width 14.4 % (11.0-16.0); White Blood Count 6.4 X10*3/uL (4.8-10.8)
[2024-05-31 07:37] VITALS: BP 105/63; PULSE 66; RESP 16; TEMP 36.2; O2SAT 95
[2024-05-31] MEDS: Fluticasone/Umeclidinium/Vilanterol 100/62.5/25 BLST.W.DEV 1 PUFF INHALE (07:54)
[2024-05-31 07:59] VITALS: PULSE 68; RESP 16; O2SAT 90
[2024-05-31 08:50] VITALS: BP 105/60; PULSE 79
[2024-05-31] MEDS: 0.9 % Sodium Chloride Flush 3 ML SYRINGE IVFLUSH (08:50)
[2024-05-31] MEDS: Nystatin Cream 15 GM TUBE 1 APPL TOPICAL (08:51)
[2024-05-31] MEDS: Cholecalciferol (Vitamin D3) 25 MCG TABLET 50 MCG PO (08:51)
[2024-05-31] MEDS: Montelukast Sodium 10 MG TABLET PO (08:51)
[2024-05-31] MEDS: dilTIAZem HCL CD 240 MG CAP.ER.DEG PO (08:51)
[2024-05-31] MEDS: Cyanocobalamin (Vitamin B-12) 1,000 MCG TABLET 1000 MCG PO (08:51)
[2024-05-31] MEDS: Loratadine 10 MG TABLET PO (08:51)
--- NOTE | 2024-05-31 09:46 | MHC.CM.PN ---
Patient reports that she lives alone and uses a wheelchair to mobilize at baseline. She currently does not have any nursing services in the home but feels that she may need one at [place]. HCP on file and verified. She reports having a PCP in [facility], but unable to recall the name of her provider. Referral placed to [facility] in the event that she will need services at [place]. IMM 05/31 in chart.
--- NOTE | 2024-05-31 10:30 | W.MHC.F2F ---
Service Date Service Date: 05/31/24 Encounter Date of encounter: 05/31/24 Reasons for Services Signs and symptoms assessed: difficulty ambulating Reason for penitentiary: wound care ( Bilateral Lower Legs - Elevate lower legs off of surface of bed with use of pillows. Cleanse with Denisha Coleman, Pat dry. Apply barrier cream to periwound. Apply layer of Durafiber to open wound beds secure with ABD pad, gauze wrap and tape. Change every other day. ), medication management, medication treatment and teach disease management Homebound: Leaving the home is medically contraindicated at this time without the asist of a device and/or another person due th the listed conditions above and below. Reason homebound: unsteady gait / fall risk Certification: Based on the above findings, I certify that this patient is confined to the home and needs intermittent penitentiary care, physical therapy and/or speech therapy, or continues to need occupational therapy. The patient is under my care, and I have initiated the establishment of the plan of care. The patient will be followed by a physician who will periodically review the plan of care. Time Spent With Patient Time: Total time managing care of this patient today ____ minutes.
--- NOTE | 2024-05-31 10:31 | P.DS_ITS ---
DS: Providers Provider Date of Service: 05/31/24 Date of admission: 05/29/24 15:10 Date of discharge: 05/31/24 Primary care physician: Unknown Physician Consults: 05/30/24 01:19 Consult to Wound Care Routine Reason for consultation: bilateral lower extremities with thickened cracked weeping skin DS: Diagnosis Discharge Diagnosis (1) Elevated INR: Status: Acute DS: Summary Hospital Course Hospital Course: from initial hpi: 84F PMH chronic afib on coumadin, obesity, chronic diastolic chf, CKD III, hypothyroid, chronic lymphedema, moderate persistent asthma presented with shortness of breath, worsening lower extremity edema, black stools. Patient reports feeling weak and short of breath over the last few days. Also noted black stools and elevated INR of 4.7. Denies any chest pain, fever, chills, dysuria. Does note orthopnea. In ED found to have pulmonary edema on chest x- ray. Stool guaiac negative. INR 4.5 with stable hemoglobin. hospital course: Patient was admitted for acute on chronic diastolic/right-sided heart failure. Was treated with IV Lasix and diuresed well, lower extremity edema is back to baseline, shortness of breath improved. Echo showed, patient is initial complaint of dark stools were likely due to p.o. iron, they tested negative for guaiac and hemoglobin remained stable. For chronic atrial fibrillation with supratherapeutic INR Coumadin was held and INR is now 2.1, Coumadin can be restarted as outpatient and should be monitored closely. Was continued on Cardizem for rate control. For obesity weight loss recommended. For CKD 3 she remained stable. For hypothyroidism she was continued on levothyroxine. For chronic lymphedema weight loss is recommended she was seen by wound care who recommended elevation, cleansing with basilar spray, applying barrier cream and dura fiber, securing with abdominal pad and using gauze wrap and tape. For moderate persistent asthma remained stable on inhalers and Singulair. Patient i s feeling better will be discharged home. Time Attestation Discharge Coordination Time (in mins): 32 Quality: Safe Use of Opioids Does Pt have an Active Cancer Diagnosis on the Problem List?: No Quality: Stroke Does the patient have a stroke diagnosis?: No Physical Exam Vital Signs: Vital Signs: Last Vital Signs Temp 97.1 F 05/31/24 07:37 Pulse 79 12/06/24 08:50 Resp 16 05/31/24 07:59 BP 105/60 05/31/24 08:50 Pulse Ox 95 05/31/24 07:37 O2 Del Method Room Air 05/31/24 07:37 BMI result Body Mass Index 32.6 General: AO X 3, no acute distress Resp: Cta bilateral, no accessory muscles used CVS: S1,S2, irregular, 3+ bilateral edema GI: soft, non tender, non distended Neuro: motor grossly intact, alert Psych: appropriate affect, appropriate insight DS: Data Data Completed and Pending Labs on day of discharge: Laboratory Results - last 24 hr 05/31/24 05:54 WBC 6.4 RBC 3.83 L Hgb 11.2 L Hct 36.0 L MCV 94.0 MCH 29.2 MCHC 31.1 RDW 14.4 Plt Count 133 L MPV 11.6 Absolute Nucleated RBC 0.000 Nucleated RBC % (auto) 0.0 PT 24.4 H D INR 2.1 H Sodium 144 Potassium 4.2 Chloride 103 Carbon Dioxide 31 H Anion Gap 14 BUN 42 H Creatinine 1.77 H Estim Creat Clear Calc 24.1 Estimated GFR 27 Fasting Glucose 93 Calcium 8.8 Discharge Plan Discharge Anticipated Discharge Date/Time: 05/31/24 10:29 Patient Disposition: Home Health Service Discharge Diagnosis: chf Referrals: Physician,Unknown J [Primary Care Provider] - 1 Week Discharge Medications: Continued warfarin 2.5 mg tablet 2.5 mg PO DAILY ferrous sulfate [FeroSul] 325 mg (65 mg iron) tablet 325 mg PO DAILY omeprazole 20 mg capsule,delayed release(DR/EC) 20 mg PO DAILY@0630 loratadine 10 mg tablet 10 mg PO DAILY cholecalciferol (vitamin D3) [Vitamin D3] 50 mcg (2,000 unit) capsule 50 mcg PO DAILY Trelegy Ellipta 100-62.5-25 mcg blister with device 1 puff inhalation DAILY albuterol sulfate 2.5 mg /3 mL (0.083 %) solution for nebulization 2.5 mg inhalation Q4H PRN (Reason: Shortness Of Breath) montelukast 10 mg tablet 1 tab PO DAILY furosemide 40 mg tablet 40 mg PO BID diltiazem HCl 240 mg capsule,extended release 24hr 240 mg PO DAILY cyanocobalamin (vitamin B-12) 1,000 mcg tablet 1,000 mcg PO DAILY levothyroxine 75 mcg tablet 75 mcg PO DAILY Discharge Orders: Discharge Order (Routine); Ordered 05/31/24 Ordered By: Wayne Fields Diet: Advance to usual diet Activity on Discharge: As tolerated Stand Alone Forms: Patient Portal Discharge page Print Language: [place] Care Plan Goals: recovery Health Concerns: chf, lymphedema Plan of Treatment: low salt diet, continue lasix wound care: Bilateral Lower Legs - Elevate lower legs off of surface of bed with use of pillows.? Cleanse with Denisha Watson, Pat dry.? Apply barrier cream to periwound. Apply layer of Durafiber to open wound beds secure with ABD pad, gauze wrap and tape.? Change every other day. continue to follow up outpt with wound clinic monitor INR Assessment: see above Patient Instructions: Elevated INR (ED)
--- NOTE | 2024-05-31 12:45 | MHC.CM.PN ---
PATIENT TO TRANSPORT HOME VIA [facility] FOR 1430. [facility] CONFIRMATION # [id number] RN AND PATIENT AWARE.
--- OUTSIDE RECORDS SUMMARY | 2024-06-04 17:03 | XMS_ITS | Data Portability ---
Author Organization [facility] [employer] Address [address] [place] [address] Care Team Providers Care Sephora Operations Consultant Name Role Phone HIM CCA OTHER MARIZA APRILShekhar Primary Care Provider Assessment Encounter Date Assessment Date Assessment LastModified by Organization Details LastModified Time 06/30/2022 06/30/2022 I provided real -time medical direction via phone for this encounter, and was available for additional phone based assistance as needed. I have reviewed and agree with the Assessment and Plan as documented by the Assessment Analyst. Patient given the opportunity to ask questions. [email or web address] Not available 06/30/2022 12:19:40 11/02/2022 11/02/2022 I have reviewed and agree with the Assessment and Plan as documented by the Assessment Analyst. I provided real-time medical direction via phone for this encounter, and was available for additional phone based assistance as needed. Patient seen for worsening foul smelling discharge from bilateral chronic leg wounds assoc w/ chronic lymphedema. AVSS and afebrile w/ no systemic sxs per report. Previously had good response to doxy for similar sxs. Will trial repeat course of doxy. Advised leg elevation and close care team follow up (has appointment for this issue in <2 weeks. Precautions for ED presentation provided. [email or web address] Not available 12/08/2022 14:13:23 02/25/2024 02/25/2024 I have reviewed and agree with the assessment and plan as documented by the scullion chief. I provided real-time medical direction for this encounter and was immediately available to provide additional phone-based assistance as needed. 83F presenting with right lower extremity redness and swelling, along with warmth. Hx of CHF. Pt with a fever that started last night/this morning with mild nausea. No diarrhea. No chest pain or SOB. Pt is being followed by wound care. Normal PO intake. No recent hospitalization or hx of MRSA as per family. O/E: bilateral lower extremity edema, worse on the right. Significant erythema to right leg and thigh with warmth. Pt with allergies to lisinopril, simvastatin, digoxin. Family indicates no allergies to abx. Suspect cellulitis. Pt with fever, HR slightly elevated, however pt has hx of elevated HR in the past, no chest pain or SOB. Recommend IV Ceftriaxone x1 Will outline cellulitis with pen Tylenol1 g q 6-8hrs Start keflex Recommend care team to follow up with patient by phone in next 1-2 days, and discussion with family to monitor area carefully, if increased redness, worsening fever, change in mental status or PO intake, to seek emegency care. [email or web address] Not available 02/25/2024 15:09:25 Plan of Treatment Reminders Order Date Submit Date Provider Last Modified By Organization Details Last Modified Time Details Appointments None recorded. Lab cmp, whole blood + nimesh 2022 023 [email or web address], [address], 13:04:55 Referral None recorded. Procedures None recorded. Surgeries None recorded. Imaging None recorded. Medication Orders Tylenol Extra Strength 500 mg tablet 2022 023 [email or web address] 0 Not available 13:04:55 doxycycline hyclate 100 mg capsule 2022 023 KLEBER [facility], [address] [place], [address], 3 13:17:29 doxycycline hyclate 100 mg capsule 2022 023 [email or web address] 0 [facility], [address] [place], [address], 3 13:16:25 Tylenol Extra Strength 500 mg tablet 2022 023 K[facility], [address] [place], [address], 3 13:17:26 doxycycline hyclate 100 mg capsule 2022 023 K[facility]PE [facility], [address] [place], [address], 3 14:55:18 miconazole nitrate 2 % topical powder 2022 023 KLE[facility]PE [facility], [address] [place], [address], 3 14:57:16 ceftriaxone 1 gram solution for injection 2023 024 [email or web address], [address] [place], [address], 4 15:09:27 cephalexin 500 mg capsule 2023 024 [facility], [address] [place], [address], 4 15:10:49 acetaminoph en 500 mg tablet 2023 024 [facility], [address] [place], [address], 4 15:09:27 Patient TargetsNo targets recorded. Patient InstructionsNo instructions recorded. Reason for Referral None Reported. Results Created Date Observation Date Name Description Value Unit Range Abnormal Flag Note LastModifiedBy Organization Detail LastModifiedTime 06/30/1906/30/2022 cmp, whole blood + picco lo ALB 3 Not Available [facility] [address], [address], 06/30/2022 12:28:20 06/30/19 23 06/30/2022 cmp, whole blood + picco lo BUN 21 Not Available [facility] [address], [address], 06/30/2022 12:28:20 06/30/19 23 06/30/2022 cmp, whole blood + picco lo Ca 8.8 Not Available [facility] [address], [address], 06/30/2022 12:28:20 06/30/1906/30/2022 cmp, whole blood + picco lo CI- normal Not Available [facility] [address], [address], 06/30/2022 12:28:20 06/30/19 23 06/30/2022 cmp, whole blood + picco lo CRE 1.9 Not Available [facility] [address], [address], 06/30/2022 12:28:20 06/30/1906/30/2022 cmp, whole blood + picco lo GLU 107 Not Available [facility] [address], [address], 06/30/2022 12:28:20 06/30/19 23 06/30/2022 cmp, whole blood + picco lo K+ 4.4 Not Available [facility] [address], [address], 06/30/2022 12:28:20 06/30/1906/30/2022 cmp, whole blood + picco lo Na+ 137 Not Available [facility] [address], [address], 06/30/2022 12:28:20 06/30/1906/30/2022 cmp, whole blood + picco lo tCO2 31 Not Available [facility] [address], [address], 06/30/2022 12:28:20 06/30/19 23 06/30/2022 cmp, whole blood + picco lo TP 8.7 Not Available [facility] [address], [address], 06/30/2022 12:28:20 Result Notes None recorded. Medical Equipment None Reported. Allergies Allergen ID Allergen Name Allergen Category Reaction Reaction Severity Criticality Documentation Date Start Date Code Code System Note Provider Name and Address Organization Details Recorded Time 155 simvastat in medicatio n Not available Not available Not available 09/10/2021 58135 RxNorm Livia Green MD [address] [place] [address],[address], [place], [address], [employer] 15:50:52 156 lisinopri l medicatio n Not available Not available Not available 09/10/2021 71508 RxNorm Livia Green MD [address] [place] [address],[address], [place], [address], [employer], [employer] 2 15:51:04 157 Zocor medicatio n Not available Not available Not available 09/10/2021 54160 3 RxNorm Livia Green MD [address] [place] [address],[address], [place], [address], [employer], [employer] 2 15:51:37 1698 Cortane-B medicatio n Not available Not available Not available 06/30/2022 43194 5 RxNorm liste d in her chart in [facility] my chart Livia Green MD [address] [place] [address],[address], [place], [address], [employer], [employer] 3 12:15:06 1699 digoxin medicatio n Not available Not available Not available 06/30/2022 3407 RxNorm liste d in my chart - [facility] Livia Green MD [address] [place] [address],[address], [place], [address], [employer], [employer] 3 12:15:26 Medications Name Sig Start Date Stop Date Status Note LastModified by Organization Details LastModified Time delivery fee active Not Available Not Available Not Available furosemide 40 mg tablet active Not Available Not Available Not Available doxycycline hyclate 100 mg capsule 100 mg PO BID 2022 active Not Available Not Available Not Avai lable cefuroxime axetil 250 mg tablet active Not Available Not Available No t Available albuterol sulfate 2.5 mg/3 mL (0.083 %) solution for nebulization active Not Available Not Available Not Available ammonium lactate 12 % lotion active Not Available Not Available Not Available azithromycin 250 mg tablet active Not Available Not Available Not Available fluconazole 150 mg tablet active Not Available Not Available Not Available amiodarone 200 mg tablet TAKE 1 TABLET BY MOUTH EVERY DAY active Not Available Not Available No t Available Nystop 100,000 unit/gram topical powder active Not Available Not Available Not Available diltiazem CD 240 mg capsule,exte nded release 24 hr active Not Available Not Available Not Available midodrine 5 mg tablet active Not Available Not Available No t Available cyanocobalam in (vit B-12) 1,000 mcg tablet active Not Available Not Available N ot Available warfarin 2.5 mg tablet active Not Available Not Available No t Available potassium chloride ER 10 mEq tablet,exten ded release active Not Available Not Available Not Available peg-electrol yte solution 420 gram oral solution active Not Available Not Available Not Available acetaminophe n 500 mg tablet take 2 tablets( 1000 mg) 2- 3 x per day as needed for fever/pain- max dose 3000 mg per 24 hrs active Not Available Not Available No t Available lidocaine-pr ilocaine 2.5 %-2.5 % topical cream active Not Available Not Available Not Available levothyroxin e 25 mcg tablet active Not Available Not Available Not Available acetaminophe n ER 650 mg tablet,exten ded release active Not Available Not Available Not Available levothyroxin e 75 mcg tablet active Not Available Not Available Not Available furosemide 80 mg tablet active Not Available Not Available Not Available diltiazem ER 120 mg capsule,24 hr,extended release active Not Available Not Available Not Available levothyroxin e 50 mcg tablet active Not Available Not Available Not Available cephalexin 500 mg capsule TAKE 1 CAPSULE BY MOUTH EVERY 6 HOURS FOR 10 DAYS active Not Available Not Available No t Available neomycin-rubi ymyxin-dexam eth 3.5 mg/mL-10,000 unit/mL-0.1% eye drops active Not Available Not Available No t Available Ear Drops (carbamide peroxide) 6.5 % active Not Available Not Available Not Available omeprazole 20 mg capsule,santa yed release active Not Available Not Available Not Available diltiazem CD 120 mg capsule,exte nded release 24 hr active Not Available Not Available Not Available montelukast 10 mg tablet active Not Available Not Available Not Available ammonium lactate 12 % topical cream active Not Available Not Available Not Available bisacodyl 5 mg tablet,delay ed release active Not Available Not Available N ot Available mupirocin 2 % topical ointment active Not Available Not Available Not Available furosemide 20 mg tablet active Not Available Not Available Not Available epinephrine 0.3 mg/0.3 mL injection, auto-injecto r active Not Available Not Available Not Available clotrimazole 1 % topical cream active Not Available Not Available Not Available doxycycline hyclate 100 mg tablet active Not Available Not Available No t Available loratadine 10 mg tablet active Not Available Not Available Not Available amoxicillin 875 mg-potassium clavulanate 125 mg tablet active Not Available Not Available Not Available Ventolin HFA 90 mcg/actuatio n aerosol inhaler active Not Available Not Available Not Available enoxaparin 80 mg/0.8 mL subcutaneous syringe active Not Available Not Available Not Available Xolair 150 mg subcutaneous solution active Not Available Not Available Not Available calcium 600 mg (as carbonate)-v itamin D3 10 mcg (400 unit) tablet active Not Available Not Available Not Available peg 3350-electro lytes 236 gram-22.74 gram-6.74 gram-5.86 gram solution active Not Available Not Available Not Available FeroSul 325 mg (65 mg iron) tablet active Not Available Not Available Not Available diclofenac 1 % topical gel active Not Available Not Available Not Available cholecalcife rol (vitamin D3) 50 mcg (2,000 unit) capsule active Not Available Not Available Not Available Miconazorb AF 2 % topical powder APPLY TO THE AFFECTED AREA(S) BY TOPICAL ROUTE 2 TIMES PER DAY IN THEMORNING AND EVENING active Not Available Not Available Not Available Trelegy Ellipta 100 mcg-62.5 mcg-25 mcg powder for inhalation active Not Available Not Available N ot Available Vitals Date Recorded Body temperature Oxygen saturation Oxygen saturation in Arterial blood by Pulse oximetry Body height Heart rate Body weight Respiratory rate Systolic blood pressure Diastolic blood pressure Provider Name and Address Organization Details Last Updated DateTime 4 97.5 [degF] 99 % 99 % 160.02 cm 110 /min 48392.3 76 g 16 /min 116 mm[Hg] 71 mm[Hg] Not Available [facility] 4 14:59:07 Date Recorded Oxygen saturation Oxygen saturation in Arterial blood by Pulse oximetry Body temperature Body height Respiratory rate Heart rate Body weight Systolic blood pressure Diastolic blood pressure Provider Name and Address Organization Details Last Updated DateTime 4 95 % 95 % 101 [degF] 160.02 cm 22 /min 110 /min 41994.1 92 g 140 mm[Hg] 80 mm[Hg] Not Available [facility] 4 14:58:50 Date Recorded Body height Oxygen saturation Oxygen saturation in Arterial blood by Pulse oximetry Body temperature Body weight Heart rate Respiratory rate Body height Respiratory rate Heart rate Body temperature Oxygen saturation Oxygen saturation in Arterial blood by Pulse oximetry Body weight Systolic blood pressure Diastolic blood pressure Systolic blood pressure Diastolic blood pressure Provider Name and Address Organization Details Last Updated DateTime 3 160.02 cm 97 % 97 % 99.8 [degF] 31795.6 8 g 96 /min 18 /min 160.02 cm 18 /min 96 /min 99.8 [degF] 97 % 97 % 94343.6 8 g 119 mm[Hg] 61 mm[Hg] 119 mm[Hg] 61 mm[Hg] Not Available [facility] 3 13:49:11 Date Recorded Oxygen saturation Oxygen saturation in Arterial blood by Pulse oximetry Heart rate Body temperature Respiratory rate Systolic blood pressure Diastolic blood pressure Provider Name and Address Organization Details Last Updated DateTime 3 98 % 98 % 76 /min 99 [degF] 122 /min 124 mm[Hg] 65 mm[Hg] Not Available [facility] 3 15:46:59 Date Recorded Respiratory rate Heart rate Body weight Body temperature Oxygen saturation Oxygen saturation in Arterial blood by Pulse oximetry Systolic blood pressure Diastolic blood pressure Provider Name and Address Organization Details Last Updated DateTime 3 14 /min 81 /min 38804.6 g 97.9 [degF] 99 % 99 % 132 mm[Hg] 66 mm[Hg] Not Available [facility] 3 14:51:12 Social History None recorded. Functional Status None recorded. Mental Status None recorded. Family History Nothing Reported. Medical History No medical history recorded. Gynecological HistoryNo gynecological history recorded. Obstetrics History GPAL:G 0 P 0 0 0 0 Past Encounters Encounter ID Performer Location Encounter Start Date Encounter Closed Date Diagnosis/Indication Diagnosis SNOMED-CT Code Diagnosis ICD10 Code [id number] Livia Green MD [facility] [address] [place] [address] 09/10/2021 15:52:47 03/03/2022 16:20:49 Edema of lower extremity 270226980 R60.0 Chronic ki dney disease 246128664 N18.9 [id number] Evelio Cline MD [facility] [address] [place], [place] [address] 10/07/2021 13:43:00 02/25/2022 14:50:20 Sepsis 99977526 A41.9 [id number] Livia Green MD [facility] [address] [place], [place] [address] 0 06/30/2022 12:13:11 07/04/2022 09:50:58 Cellulitis of lower limb 705341917 L03.119 [id number] Jose Bill MD [facility] [address] [place] [address] 07/29/2022 15:46:52 08/01/2022 12:25:19 Open wound of lower leg 893416829 S81.801A [id number] Evelio Cline MD [facility] [address] [place], [place] [address] 11/02/2022 14:50:44 11/03/2022 15:22:51 Venous stasis edema of bilateral lower limbs [id number] 2313321 I87.2 [id number] Julian Vaz MD Main [facility] [address] [place], [place] [address] 0 01/18/2024 14:59:01 01/19/2024 08:38:20 Medical examination for suspected condition [id number] Z00.01 [id number] Sandhya Perez MD [facility] [address] [place], [place] [address] 02/25/2024 14:58:29 02/27/2024 00:15:06 Cellulitis of lower leg 915082970 L03.119 Health Concerns Section Related Observation LastModified by Organization Detai ls LastModified Time None Recorded Concern Status LastModified by Organization Details LastModified Time None Recorded Advance Directives Directive None Recorded Payers Encounter Date Sequence Insurance Name Policy Number Policy Potts Covered Member ID Potts Member ID Guarantor Name 06/30/[address] [facility] - DOS PRIOR TO 2022 - DUAL ELIGIBLE (MEDICARE REPLACEMENT/ADV ANTAGE - HMO) Adriana Farrisdo [id number] Adriana Roldan 07/29/2022 1 [facility] - DOS PRIOR TO 2022 - DUAL ELIGIBLE (MEDICARE REPLACEMENT/ADV ANTAGE - HMO) Adriana Farrisdo [id number] Adriana Farrisdo 11/02/2022 1 [facility] - DOS PRIOR TO 2022 - DUAL ELIGIBLE (MEDICARE REPLACEMENT/ADV ANTAGE - HMO) Adriana Jamar [id number] Adriana Farrisdo 01/18/2024 1 [facility] - DOS ON OR AFTER 2022 - DUAL ELIGIBLE - LONGTERM OPTIONS AND ONE CARE (MEDICARE REPLACEMENT/ADV ANTAGE - HMO) Adriana Jamar [id number] Adriana Farrisdo 02/25/2024 1 [facility] - DOS ON OR AFTER 2022 - DUAL ELIGIBLE - LONGTERM OPTIONS AND ONE CARE (MEDICARE REPLACEMENT/ADV ANTAGE - HMO) Adriana Jamar [id number] Adriana Farrisdo Notes Date Note Type Note Provider Name and Address Organization Details Recorded Time 06/30/2022 text/html [facility] Nursing Assessment: Reason For Request: Both legs are swollen, right a little more, warm to the touch, red and firm to the touch. Raw skin by the ankles. Diagnosed with cellulitis before. Small amount of drainage near ankle, yellowish but because of the condition of the skin its a small amount. Patient Reports: History of cellulitis, isolated redness notedDenies: Fever and chills noted in setting of wound Rash Bites -bugs, spider Abscess Chief Complaints: CellulitisPMH: CHF, COPD/Asthma, HypertensionAllergies : No KnownComments: Son called for mother swollen legs have been going on for 1-2 weeks .Member did have chills last evening, denies fever / N/V. symptoms resemble cellulitis from before . Member is on lasix 60 mg , Member denies sob . PMH CHF / DVT ..................... ..................... ..................... ..................... ..................... ..................... ............... Assessment Analyst Note: Sent to a call for a pt complaining of bilateral leg edema, and possible cellulitis. SC8 arrives on scene, pt is alert and oriented. Airway is patent. Pt complains of increased bilateral lower extremity edema, increasing erythema, warm to touch, and fluid draining near ankles. Pt has a history of cellulitis and MRSA in the past. Pt denies headache, dizziness, cp, sob, n/v/d, abd pain, fever, or loc. Pt takes Warfarin and her Furosemide dosage was changed 1-2 months ago from 40mg daily to 60mg daily. Pt last took Tylenol yesterday evening. Pictures of lower extremities uploaded to [facility]. BP:119/61, P:96, RR:18, SpO2:97% RA, T:99.8; Lung sounds: clear bilaterally; Abdomen: soft, non-tender, no distention; Lower extremities: edema, erythema, and dry skin noted bilaterally in lower legs and feet. (+)motor and sensory, normal cap refill; unable to palpate pedal pulses through edema and dry skin; [facility] orders POC CMP, Doxycycline 100mg PO, and Tylenol 1gm PO. Blood draw initiated; CMP results uploaded to [facility]. Doxycycline and Tylenol administered as ordered. [facility] sends script to pt's pharmacy for Tylenol and Doxycycline. Pt advised to elevate legs, and avoid salt. Pt advised to follow up with PCP tomorrow. Pt advised to take Tylenol 1gm 2-3 times daily, and start Doxycycline prescription tomorrow, since first dose was given today. [facility] will recommend ultrasound to rule out blood clot due to low INR. Pt advised to call 911/go to ED if erythema spreads up legs, or she has fever, cp, or sob. Other red flags discussed. Pt/family have no further questions. ..................... ..................... ..................... ..................... ..................... ..................... ............... Disposition: FulfilledSEGMD: above- pat's son believes she had doxycycline last time had cellulitis. Last labs in [place]: [facility] visit 09/14- BUN was 27/ cr 2.1-has hx CKD in addition to the above . Is on warfarin- INR this am was 1.6 Livia Green MD [address] [place] [address],[address], [place], [address], [employer] 06/30/2022 18:19:42 07/29/2022 text/html HPI: 82 yo Cymraes Speaking male with PMH of with Lymphedema of bilateral LL and recurrent cellulitis of RLL and sepsis, presented to [facility] ED on 07/26/22 with RLL drainage, was prescribed Doxy and Cefalexin which has been taking, this RN saw member @ 2:00 PM today, she is generally not feeling well, has green and ballesteros drainage from RLL, some nausea and chills. temp 99.9 respirations 22, HR 103 irregular irregularity, BP 130/64 , allergies, Zocor, Lisinopril, Simvastatin ..................... ..................... ..................... ..................... ..................... ..................... ............... CRC Nursing Assessment: Comments: CRC RN did not require any additional information to process this visit. Jose Bill MD [address] [facility],[address], [place], [address], [employer] 07/29/2022 15:53:48 11/02/2022 text/html [facility] Nursing Assessment: Reason For Request: Son reporting problems with legs>usually diagnose with cellulitis>swollen, warm to the touch, fluid coming out of both legs with a bit of a strong odor. Symptoms going on over a week. Pt has history of cellulitis. Chief Complaints: Cellulitis, Edema PMH: CHF, COPD/Asthma, Hypertension Allergies: No Known Comments: Verified identity by Spoke with the son, legs have been swollen for 2 weeks , left leg. Son denies cuts/ injury. Member does take a diuretic for CHF , member is on lasix. Member has mild sob. Member does not wear o2 in the home ..................... ..................... ..................... ..................... ..................... ..................... ............... Assessment Analyst Note From Jose A Miller: Pt/caregiver reports increased lower leg drainage and new foul odor. Pt denies pain, f/n/v/d . Pt's son sts pt has had ongoing cellulitis for over 5 years. Of note, pt was treated with a course of doxy in July 2022 with some improvement. Pt has upcoming appointment with specialist on 11/14/22. Pt is alert, no distress. VSS. Afebrile. Neuro exam and gait normal. Lungs CTA. Serosanguineous drainage present on dressing covering the right leg. Right leg is malodorous. Pts sx c/w chronic venous insufficiency. Pt treated with 100 mg doxycyline hyclate. Pt/caregiver educated on leg wrapping and elevation. Pt instructed to seek emergent medical care for new or worsening sx, which are reviewed with them. ..................... ..................... ..................... ..................... ..................... ..................... ............... Disposition: Fulfilled Evelio Cline MD [address] [place] [address],[address], [place], [address], [facility] 12/08/2022 14:13:32 01/18/2024 text/html [facility] Nurse Triage Notes (Marii Fernandez): Chief Complaints: Hypertension, Shortness of Breath/Dyspnea PMH: CHF, COPD/Asthma, Hypertension Allergies: No Known Comments: Patient went for routine asthma injection today. Son states they were told BP elevated and low 02 sat during visit. Does not know specific values. Reported that patient had increased shortness of breath starting 2 days ago. No chest pain. No current respiratory distress. ..................... ..................... ..................... ..................... ..................... ..................... ............... Assessment Analyst Note From Ter Garibay[facility] Pt present with family who translated for pt who only speaks slovenian. Family reports that pt was brought to outpatient appointment for an injection for her asthma. She was noted at appointment to have a low oxygen level and some concern about her blood pressure and family was instructed to go to ED or have [facility] visit. Pt has no complaints at this time and is well appearing. V/S taken with HR noted to be elevated, irregular with history of atrial fibrillation. Lungs clear with good pulse ox on assessment. Consulted with [facility] Dr. Vaz. No further assessment or treatments needed at this time. Family instructed to continue monitoring patient. Patient education provided. ..................... ..................... ..................... ..................... ..................... ..................... ............... Disposition: Fulfilled Julian Vaz MD [address] [place] [address],[address] [facility], [place], [address], Aligo 01/18/2024 15:59:58 02/25/2024 text/html [facility] Nurse Triage Notes (Blayne Montiel): Reason For Request: pt's son aixa reporting n/v/d since waking up this morning alongside fever>mbr is currently being seen at wound clinic for a wound below the right knee>son notes swelling on the right leg Chief Complaints: Nausea/Vomiting, Diarrhea, Cellulitis, Fever/Chills PMH: CHF, COPD/Asthma, Hypertension Allergies: Unknown Comments: Can Piler verified the member's name//address and phone number. Mbr's son reporting N/V/D and fever since this morning. Son reports RLE is swollen and red. Fever reportedly 105F, now 101F after Tylenol. Education provided on the response time and the member was advised to monitor reported s/s and seek emergency treatment if needed -Kenan Montiel RN ..................... ..................... ..................... ..................... ..................... ..................... ............... Assessment Analyst Note From Trevon Chirinos: Insted note Mbr's son reporting N/V/D and fever since this morning. Son reports RLE is swollen and red. Fever reportedly 105F, now 101F after Tylenol. pt's son aixa reporting n/v/d since waking up this morning alongside fever>mbr is currently being seen at wound clinic for a wound below the right knee>son notes swelling on the right leg Pt's so n called for fever and concern for pt. Fever started this morning and was noted to be 105, oral. Pt was given 500mg Tylenol [employer] around noon. Pt has had the wound on her R leg for about 6 months. A nurse comes in a few times a week to change the dressing. Pt is not being treated with antibiotics, but [facility] was here about 3 months ago and pt was given antibiotics for similar concerns. Pt's daughter also noted redness on the posterior portion on the right leg upper thigh. This was note noted yesterday but noted today. Pt denies SOB, CP, or pain in her leg. Pt's mental status appears well, speaking in full sentences, breathing non-labored, but appears slightly lethargic. MD consult:Administer 1g Ceftriaxone via IV - Completed after confirming 6 rights with the pt and family. 1g Tylenol - PO. also sent rx for antibiotics to pt's pharmacy.Redness on leg was marked with marker.Discussed red flags with pt and son. Pt's son lives with pt and is her WATER SYSTEMS ENGINEER. Informed to keep an eye redness, and look out for fever, AMS and other septic findings, and when to go to the ER. ..................... ..................... ..................... ..................... ..................... ..................... ............... Disposition: Bebeto Perez MD [address] [place] [address],[address] [facility], [place], [address], [employer] SkyLALITO PALMER 02/25/2024 17:24:52 OBGyn Episode No OBEpisode recorded.
== END 2024-05-31 14:29 | disposition home health service (06) | DRG 291 ==
LOC: HO.ED 14:55 → HO.EDOVER 15:10 → HO.S3 19:25
PROVIDERS: Admitting Provider Internal Medicine; Emergency Provider Emergency Medicine; Visit Provider Internal Medicine
DX: I13.0 Hypertensive heart and chronic kidney disease with heart failure and stage 1 through stage 4 chronic kidney disease, or unspecified chronic kidney disease (principal); I50.33 Acute on chronic diastolic (congestive) heart failure; I48.20 Chronic atrial fibrillation, unspecified; E03.9 Hypothyroidism, unspecified; N18.30 Chronic kidney disease, stage 3 unspecified; I50.813 Acute on chronic right heart failure; E66.9 Obesity, unspecified; R79.1 Abnormal coagulation profile; Z68.32 Body mass index [BMI] 32.0-32.9, adult; I89.0 Lymphedema, not elsewhere classified; J45.40 Moderate persistent asthma, uncomplicated; Z20.822 Contact with and (suspected) exposure to COVID-19; Z71.3 Dietary counseling and surveillance; Z23 Encounter for immunization; Z79.01 Long term (current) use of anticoagulants; Z79.890 Hormone replacement therapy; Z79.899 Other long term (current) drug therapy
CPT/HCPCS: 0241U; 36415; 71046; 80048; 80076; 82272; 83690; 83735; 83880; 84484; 85025; 85027; 85610; 90656; 93005; 93306; 94640; 99285; J1940; Q9957

== ENCOUNTER → 2024-05-29 11:55 | Outpatient (BNV) | payer OTHER, SELFPAY | PROVIDERS: Admitting Provider Internal Medicine; Emergency Provider Emergency Medicine; Visit Provider Internal Medicine Cardiovascular Disease | DX: R94.31 Abnormal electrocardiogram [ECG] [EKG] (principal) | CPT/HCPCS: 93010 ==

== ENCOUNTER 2024-05-29 15:10 | Outpatient (BNV) | payer OTHER, SELFPAY | END 2024-05-30 07:00 | PROVIDERS: Admitting Provider Internal Medicine; Emergency Provider Emergency Medicine; Visit Provider Internal Medicine Cardiovascular Disease | DX: I34.0 Nonrheumatic mitral (valve) insufficiency (principal); I36.1 Nonrheumatic tricuspid (valve) insufficiency; I27.20 Pulmonary hypertension, unspecified; I51.7 Cardiomegaly | CPT/HCPCS: 93306 ==

== ENCOUNTER → 2024-05-29 15:10 | Outpatient (BNV) | payer OTHER, SELFPAY | PROVIDERS: Admitting Provider Internal Medicine; Emergency Provider Emergency Medicine; Visit Provider Internal Medicine | DX: R79.1 Abnormal coagulation profile (principal) | CPT/HCPCS: 99232; 99239; G0180 ==

== ENCOUNTER 2024-07-30 11:00 | Outpatient (REF) | payer OTHER, SELFPAY ==
--- OUTSIDE RECORDS SUMMARY | 2024-07-30 16:25 | XMS_ITS | Encounter Summary ---
Author Organization [facility] Address [address] [place] [address] Care Team Providers Care Truck Bracer Name Role Phone Eilzabet Shannon MD Primary Care Provider [phone] Reason for Visit * Reason Onset Date Comments ECHOCARDIOGRAM 07/22/2024 Encounter Details Date Type Department Care Team ([facility] st Contact Info) Description 07/22/2024 Telephone [facility] - [facility] 154 300 [facility] 154 [place] [address] Mikael Montoya NP [address] [place], [place] [phone] ECHOCARDIOGRAM Social History Tobacco Use Types Packs/Day [...] is scheduled for an upcoming echo at [facility] on 07/24/24. Patient recently had an echo done on 06/20/24. Would you like to keep upcoming echo? documented in this encounter Plan of Treatment Upcoming Encounters Date Type Department Care Team (Latest Contact Info) Description 07/31/2024 10:50 AM EST Anticoagulation - [facility] [address] [address] 08/05/2024 11:00 AM EST Appointment [facility] 271 [facility] 2nd [place] [address] 08/08/2024 10:40 AM EST Office Visit [facility] - [facility] 154 300 [facility] 154 [place] [address] Mikael Montoya NP 300 [place] [address] 09/12/2024 10:00 AM EDT Consult Orthopedic Surgery - [place] 250 175 [facility] 250 [place] [phone] Leeroy Schneider DPM [address] [address] 09/26/2024 11:30 AM EDT Office Visit Pulmonolgy - [place] 175 [facility] 200 [place] [address] Chelsea Shi, ALAINA 175 [facility] 200 [place] [address] 11/26/2024 11:00 AM EDT Appointment Radiology Department - [address] [address] documented as of this encounter Visit Diagnoses Not on filedocumented in this encounter Care Teams Truck Bracer Relationship Specialty Start Date End Date Elizabet Shannon MD 175 [facility] 200 [place] [address] PCP - General Internal Medicine 05/06/24 documented as of this encounter
--- OUTSIDE RECORDS SUMMARY | 2024-07-30 16:25 | XMS_ITS | Encounter Summary ---
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 Social History Tobacco [...] EST Anticoagulation - Warfarin [facility] [address] [address] 08/05/2024 11:00 AM EST Appointment [facility] [address] [place] [address] 08/08/2024 10:40 AM EST Office Visit [facility] - [facility] 154 300 [facility] 154 [place] [phone] Mikael Montoya NP 300 [place] [address] 09/12/2024 10:00 AM EDT Consult Orthopedic Surgery - [place] 250 175 [facility] 250 [place] [phone] Leeroy Schneider DPM 175 [facility] 250 [place] [address] 09/26/2024 11:30 AM EDT Office Visit Pulmonolgy - [place] 175 [facility] 200 [place] [address] Chelsea Shi NP 175 [facility] 200 [place] [address] 11/26/2024 11:00 AM EDT Appointment Radiology Department - [address] [address] documented as of this encounter Visit Diagnoses Diagnosis Atrial fibrillation, 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 (CMS/HCC)- Primary intermediate manager (current) use of anticoagulants Long-term (current) use of anticoagulants Encounter for screening mammogram for breast cancer documented in this encounter Care Teams Tricot Knitter Relationship Specialty Start Date End Date Elizabet Shannon MD 175 [facility] 200 [place] [address] PCP - General Internal Medicine 05/06/24 documented as of this encounter
--- OUTSIDE RECORDS SUMMARY | 2024-07-30 16:25 | XMS_ITS | Encounter Summary ---
Author Organization [facility] Address [address] [place] [address] Care Team Providers Care Shotweld Operator Name Role Phone Elizabet Shannon MD Primary Care Provider [phone] Reason for Visit * Reason Onset Date Comments Med Refill 07/11/2024 Encounter Details Date Type Department Care Team ([facility] st Contact Info) Description 07/11/2024 Telephone Internal Medicine - [place] 175 [facility] [address] [place] [phone] Elizabet Shannon MD 175 [facility] 200 [place] [address] Med Refill Social History Tobacco Use Types [...] - 07/11/2024 3:46 PM EST Mallory robins [facility] Tito is calling back for update on pt's diuretic scripts: She received a med list with only torsemide 20mg and not furocemide. Needs new rx with furocemide? Ph# to [phone] ext. [phone] documented in this encounter Plan of Treatment Upcoming Encounters Date Type Department Care Team (Latest Contact Info) Description 07/31/2024 10:50 AM EST Anticoagulation - [facility]farin [facility] [address] [address] 08/05/2024 11:00 AM EST Appointment [facility] [address]nd [place] [address] 08/08/2024 10:40 AM EST Office Visit [facility] - [facility] [address] 300 [facility] 154 [place] [phone] Mikael Montoya NP 300 [place] [address] 09/12/2024 10:00 AM EDT Consult Orthopedic Surgery - [place] 250 175 [facility] 250 [place] [phone] Leeroy Schneider DPM 175 [facility] 250 [place] [address] 09/26/2024 11:30 AM EDT Office Visit Pulmonolgy - [place] 175 [facility] 200 [place] [address] Chelsea Shi NP 175 [facility] 200 [place] [address] 11/26/2024 11:00 AM EDT Appointment Radiology Department - [address] [address] documented as of this encounter Visit Diagnoses Not on filedocumented in this encounter Care Teams Shotweld Operator Relationship Specialty Start Date End Date Elizabet Shannon MD [address] [address] PCP - General Internal Medicine 05/06/24 documented as of this encounter
--- OUTSIDE RECORDS SUMMARY | 2024-07-30 16:25 | XMS_ITS | Clinical Summary ---
Author Organization [facility] Address [address] [place] [address] Care Team Providers Care Marine Fuel Dock Attendant Name Role Phone Rishi Lion MD Primary Care Provide r Allergies Active Allergy Reactions Criticality Noted Date Comments [id number]-[id number]-[id number] 3 Digoxin 08/05/2022 Pt an sson unsure of reaction Lisinopril 08/05/2022 Pt unsure of reaction Simvastatin Rash Low 08/05/2022 Medications Medication Sig Dispensed Refills Start Date End Date Status warfarin (COUMADIN) 2.5 MG tablet TAKE 1 TO 3 TABLETS BY MOUTH DAILY OR DIRECTED BY COUMADIN CLINIC. MAY CAUSE HEAVY BLEEDING. TAKE AT SAME TIME EVERY DAY. DO NOT CHANGE DIETARY HABITS. 0 05/10/2022 Active albuterol (PROVENTIL) (2.5 MG/3ML) 0.083% nebulizer solution INHALE 1 VIAL VIA NEBULIZER EVERY 4 HOURS NEEDED FOR WHEEZING. 0 01/29/2019 Active Fluticasone-Umeclid in-Vilant (Trelegy Ellipta) 100-62.5-25 MCG/ACT AEPB INHALE 1 PUFF INTO THE LUNGS EVERY 24 HOURS, RINSE MOUTH WITH WATER & EXPECTORATE AFTER EACH DOSE TO PREVENT ORAL/ESOPHAGEAL CANDIDIASIS / FUNGAL INFECTION. 0 04/04/2022 Active acetaminophen (TYLENOL EXTRA STRENGTH) 500 MG tablet acetaminophen 500 mg tablet 0 Active dilTIAZem (CARDIZEM CD) 120 MG 24 hr capsule 0 07/25/2022 Active FeroSul 325 (65 Fe) MG tablet 0 07/25/2022 Active furosemide (LASIX) 20 MG tablet 0 07/25/2022 Active furosemide (LASIX) 40 MG tablet 0 07/25/2022 Active levothyroxine (SYNTHROID) tablet 75 mcg 0 07/25/2022 Active loratadine (CLARITIN) 10 MG tablet 0 07/25/2022 Active midodrine (PROAMATINE) 5 MG tablet 0 07/25/2022 Active montelukast (SINGULAIR) 10 MG tablet 0 07/25/2022 Active omeprazole (PriLOSEC) 20 MG capsule 0 07/25/2022 Active Cholecalciferol (Vitamin D3) 50 MCG (1999) capsule 0 07/25/2022 Active Active Problems Problem Noted Date Diagnosed Date Asthma 05/04/2023 Moderate asthma without complication 08/01/2022 Family History Medical History Relation Name Comments Cancer Mother Relation Name Status Comments Mother Social History Tobacco Use Types Packs/Day Years Used Date Smoking Tobacco: Never Smokeless Tobacco: Never Alcohol Use Standard Drinks/Week Comments Never 0 (1 standard drink = 0.6 oz pur e alcohol) Sex and Gender Information Value Date Recorded Sex Assigned at Female 09/12/2022 4:02 PM EDT Gender Identity Female 01/05/2023 10:53 AM EDT Sexual Orientation Straight 01/05/2023 10 :53 AM EDT Job Start Date Occupation Industry Not on file Not on file Not on file Last Filed Vital Signs Vital Sign Reading Time Taken Comments Blood Pressure 100/54 04/25/2024 12:54 PM EDT Pulse 58 04/25/2024 12:54 PM EDT Temperature 36.6 ??C (97.9 ??F) 04/25/2024 12:54 PM E DT Respiratory Rate 18 04/25/2024 12:54 PM EDT Oxygen Saturation 100% 04/25/2024 12:54 PM EDT Inhaled Oxygen Concentration - - Weight 83.1 kg (183 lb 3.2 oz) 08/23/2023 11:05 AM EST Height 157.5 cm (5' 2 ) 07/26/2023 10:41 AM EST Body Mass Index 33.51 07/26/2023 10:41 AM EST Plan of Treatment Health Maintenance Due Date Last Done Comments COVID-19 Vaccine (#1) 1940 Depression Screening 1952 BMI Counseling 1958 Preventative Health Evaluation 1958 DTap / Tdap / Td (1 - Tdap) 1959 Shingrix-Zoster Vaccine (1 of 2) 1990 Fall Risk Assessment 2005 Osteoporosis Screening (DEXA Scan) 2005 RSV Adult > 60+ Yrs or (1 - 1-dose 75+ series) 2015 Influenza Vaccine (#1) 2024 2, 04/11/2022, 03/15/2021, Additional history exists Pneumococcal Vaccine Completed 05/29/2018, 10/06/2016, 10/02/2012, Additional history exists Hepatitis B Vaccines Aged Out No long er eligible based on patient's age to complete this topic RSV Ped < 20 months Aged Out No longe r eligible based on patient's age to complete this topic Care Teams Marine Fuel Dock Attendant Relationship Specialty Start Date End Date Rishi Lion MD [address] [place] [address] PCP - General Internal Medicine 08/05/22
--- OUTSIDE RECORDS SUMMARY | 2024-07-30 16:25 | XMS_ITS | Encounter Summary ---
Author Organization [facility] Address [address] [place] [address] Care Team Providers Care Ammunition Components Inspector Name Role Phone Elizabet Shannon MD Primary Care Provider [phone] Encounter Details Date Type Department Care Team (Late st Contact Info) Description 07/23/2024 Telephone [facility] [address] [phone] Felicita Alvarado LPN Social History Tobacco Use [...] EST Anticoagulation - Warfarin Visit [facility] [address] [phone] 08/05/2024 11:00 AM EST Appointment [facility] [address] [place] [address] 2[address] [place] [address] 08/08/2024 10:40 AM EST Office Visit [facility] - [facility] 154 300 [facility] 154 [place] [phone] Mikael Montoya NP 300 [place] [address] 09/12/2024 10:00 AM EDT Consult Orthopedic Surgery - [place] 250 175 [facility] 250 [place] [phone] Leeroy Schneider DPM [address] [address] 09/26/2024 11:30 AM EDT Office Visit Pulmonolgy - [place] 175 [facility] 200 [place] [address] Chelsea Shi NP [address] [address] 11/26/2024 11:00 AM EDT Appointment Radiology Department - [address] [address] documented as of this encounter Visit Diagnoses Diagnosis Atrial fibrillation, 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 (CMS/HCC)- Primary long-term (current) use of anticoagulants Long-term (current) use of anticoagulants Encounter for screening mammogram for breast cancer documented in this encounter Care Teams Ammunition Components Inspector Relationship Specialty Start Date End Date Elizabet Shannon MD [address] [address] PCP - General Internal Medicine 05/06/24 documented as of this encounter
--- OUTSIDE RECORDS SUMMARY | 2024-07-30 16:25 | XMS_ITS | Encounter Summary ---
Author Organization [facility] Address [address] [place] [address] Care Team Providers Care Automatic Nailing Machine Feeder Name Role Phone Elizabet Shannon MD Primary Care Provider [phone] Reason for Visit * Reason Onset Date Comments Hospital Follow-up 07/08/2024 Encounter Details Date Type Department Care Team ([facility] st Contact Info) Description 07/08/2024 Telephone [facility] 175 [facility] [address] [place] [phone] Chelsea Shi NP 175 [facility] 200 [place] [address] Hospital Follow-up Social History Tobacco Use Types [...] 06/18/24 and was discharge on 07/06/24 from [facility]. Patient was seen in the hospital due to fluids in the lungs. Patient was told to follow up with PCP . Patient did get IV medication. Please schedule. documented in this encounter Plan of Treatment Upcoming Encounters Date Type Department Care Team (Latest Contact Info) Description 07/31/2024 10:50 AM EST Anticoagulation - Warfarin Visit [facility] [address] [address] 08/05/2024 11:00 AM EST Appointment [facility] 271 [facility] 2nd [place] [address] 08/08/2024 10:40 AM EST Office Visit [facility] - [facility] 154 300 [facility] 154 [place] [phone] Mikael Montoya NP 300 [place] [address] 09/12/2024 10:00 AM EDT Consult Orthopedic Surgery - [place] 250 175 [facility] 250 [place] [phone] Leeroy Schneider DPM 175 [facility] 250 [place] [address] 09/26/2024 11:30 AM EDT Office Visit Pulmonolgy - [place] 175 [facility] 200 [place] [phone] Chelsea Shi NP 175 [facility] 200 [place] [address] 11/26/2024 11:00 AM EDT Appointment Radiology Department - [address] [address] documented as of this encounter Visit Diagnoses Not on filedocumented in this encounter Care Teams Automatic Nailing Machine Feeder Relationship Specialty Start Date End Date Elizabet Shannon MD [address] [place] [address] PCP - General Internal Medicine 05/06/24 documented as of this encounter
--- OUTSIDE RECORDS SUMMARY | 2024-07-30 16:25 | XMS_ITS | Encounter Summary ---
Author Organization [facility] Address [address] [place] [address] Care Team Providers Care Senior User Experience Architect Name Role Phone Elizabet Shannon MD Primary Care Provider [phone] Reason for Visit * Reason Onset Date Comments DME request 07/26/2024 Encounter Details Date Type Department Care Team (Late st Contact Info) Description 07/26/2024 Telephone [facility] [place] 175 [facility] [address] [place] [address] Graciela Mckinley [place] DME request [...] Anticoagulation - Warfarin Visit Coumadin Clinic - [address] [address] 08/05/2024 11:00 AM EST Appointment [facility] 271 [facility] 2nd [place] [phone] 08/08/2024 10:40 AM EST Office Visit [facility] - [facility] 154 300 [facility] 154 [place] [address] Mikael Montoya NP 300 [place] [address] 09/12/2024 10:00 AM EDT Consult Orthopedic Surgery - [place] 250 175 [facility] 250 [place] [phone] Leeroy Schneider DPM 175 [facility] 250 [place] [address] 09/26/2024 11:30 AM EDT Office Visit Pulmonolgy - [place] 175 [facility] 200 [place] [phone] Chelsea Shi NP 175 [facility] 200 [place] [address] 11/26/2024 11:00 AM EDT Appointment Radiology Department - [address] [phone] documented as of this encounter Visit Diagnoses Not on filedocumented in this encounter Care Teams Senior User Experience Architect Relationship Specialty Start Date End Date Elizabet Shannon MD [address] [address] PCP - General Internal Medicine 05/06/24 documented as of this encounter
--- OUTSIDE RECORDS SUMMARY | 2024-07-30 16:25 | XMS_ITS | Encounter Summary ---
Author Organization [facility] Address [address] [place] [address] Care Team Providers Care Nurse Aide Evaluator Name Role Phone Elizabet Shannon MD Primary Care Provider [phone] Encounter Details Date Type Department Care Team (Latest Contact Info) Description 07/05/2024 Lab Requisition [facility] - Main Lab 299 [facility] [place] [address] Bruce Petersne MD [facility] [address] [place], [place] [phone] Unspecified atrial fibrillation (CMS/HCC); Other thrombophilia (CMS/HCC) [...] AM EST Anticoagulation - Warfarin Visit Coumadin [address] [phone] 08/05/2024 11:00 AM EST Appointment [facility] Infusion Center 271 [facility] 2nd [place] [phone] 08/08/2024 10:40 AM EST Office Visit [facility] - [facility] [address] 300 [facility] 154 [place] [phone] Mikael Montoya, ALAINA 300 [place] [address] 09/12/2024 10:00 AM EDT Consult Orthopedic Surgery - [place] 250 175 [facility] 250 [place] [phone] Leeroy Schneider DPM 175 [facility] 250 [place] [address] 09/26/2024 11:30 AM EDT Office Visit Pulmonolgy - [place] 175 [facility] 200 [place] [phone] Chelsea Shi NP 175 [facility] 200 [place] [address] 11/26/2024 11:00 AM EDT Appointment Radiology Department - [address] [address] documented as of this encounter Visit Diagnoses Diagnosis Unspecified atrial fibrillation (CMS/HCC) Other thrombophilia (CMS/HCC) Encounter for screening mammogram for breast cancer documented in this encounter Care Teams Nurse Aide Evaluator Relationship Specialty Start Date End Date Elizabet Shannon MD 175 [facility] 200 [place] [address] PCP - General Internal Medicine 05/06/24 documented as of this encounter
--- OUTSIDE RECORDS SUMMARY | 2024-07-30 16:25 | XMS_ITS | Encounter Summary ---
Author Organization [facility] Address [address] [place] [address] Care Team Providers Care Newspaper Writer Name Role Phone Elizabet Shannon MD Primary Care Provider [phone] Encounter Details Date Type Department Care Team (Latest Contact Info) Description 06/18/2024 1:30 PM EST Anticoagulation - Warfarin Visit Coumadin Clinic [facility] 175 175 [place] [phone] Atrial fibrillation, 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 (CMS/HCC) (Primary Dx); terminal operations manager (current) use of anticoagulants Social History [...] EST Anticoagulation - Warfarin Visit Coumadin Clinic [address] [address] 08/05/2024 11:00 AM EST Appointment [facility] Infusion Center [address] [address] 08/08/2024 10:40 AM EST Office Visit [facility] Cardiology Associates - [facility] [address] 300 [facility] 154 [place] [phone] Mikael Montoya NP 300 [place] [address] 09/12/2024 10:00 AM EDT Consult Orthopedic Surgery - [place] 250 175 [facility] 250 [place] [phone] Leeroy Schneider DPM 175 [facility] 250 [place] [address] 09/26/2024 11:30 AM EDT Office Visit Pulmonolgy - [place] 175 [facility] 200 [place] [phone] Chelsea Shi NP 175 [facility] 200 [place] [address] 11/26/2024 11:00 AM EDT Appointment Radiology Department [address] [address] documented as of this encounter Procedures Procedure Name Priority Date/Time Associated Diagnosis Comments POC PROTIME INR BLOOD Routine 06/18/2024 12:39 PM EST Atrial fibrillation, 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 (CMS/HCC) alf (current) use of anticoagulants documented in this encounter Results * POC Protime INR Blood (06/18/2024 12:39 PM EST) Lot Number INR POC 4.8 Prothrombin Time POC Exp Date Blood 06/18/2024 12:3 9 PM EST Dana Bull MD POINT OF CARE TEST E NTER/EDIT ORDERABLES documented in this encounter Visit Diagnoses Diagnosis Atrial fibrillation, 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 (CMS/HCC)- Primary alf (current) use of anticoagulants Long-term (current) use of anticoagulants Encounter for screening mammogram for breast cancer documented in this encounter Additional Health Concerns Infection Onset Date Last Indicated Resolved Time Respiratory Rule-Out 06/18/2024 06/18/2024 024 5:27 PM EST COVID-19 Rule-Out 06/18/2024 06/18/2024 06/18/2024 5:27 PM EST documented as of this encounter Care Teams Newspaper Writer Relationship Specialty Start Date End Date Elizabet Shannon MD [address] [place] [address] PCP - General Internal Medicine 05/06/24 documented as of this encounter
--- OUTSIDE RECORDS SUMMARY | 2024-07-30 16:25 | XMS_ITS | Encounter Summary ---
Author Organization [facility] Address [address] [place] [address] Care Team Providers Care Meat Pickler Name Role Phone Elizabet Shannon MD Primary Care Provider [phone] Encounter Details Date Type Department Care Team (Late st Contact Info) Description 06/28/2024 Lab Requisition [facility] - Main Lab 299 [facility] [place] [phone] Ricardo Rhodes MD [address] [place] [address] Unspecified atrial fibrillation (CMS/HCC); Other thrombophilia (CMS/HCC) [...] AM EST Anticoagulation - Warfarin Visit Coumadin [address] [address] 08/05/2024 11:00 AM EST Appointment [facility] Infusion Center [address] 2nd [place] [phone] 08/08/2024 10:40 AM EST Office Visit [facility] Cardiology Associates - [facility] [address] 300 [facility] [address] [place] [phone] Mikael Montoya NP 300 [place] [address] 09/12/2024 10:00 AM EDT Consult Orthopedic Surgery - [place] 250 175 [facility] 250 [place] [phone] Leeroy Schneider DPM 175 [facility] 250 [place] [address] 09/26/2024 11:30 AM EDT Office Visit Pulmonolgy - [place] 175 [facility] [address] [place] [phone] Chelsea Shi NP 175 [facility] 200 [place] [address] 11/26/2024 11:00 AM EDT Appointment Radiology Department - [address] [address] documented as of this encounter Procedures Procedure Name Priority Date/Time Associated Diagnosis Comments PROTHROMBIN TIME WITH INR Routine 07/01/2024 7:21 AM EST Unspecified atrial fibrillation (CMS/HCC) Other thrombophilia (CMS/HCC) documented in this encounter Results * (ABNORMAL) Prothrombin time with INR (07/01/2024 7:21 AM EST) Protime 18.5(H) 10.6 - 13.9 sec LAB COAGULATION METHOD 07/01/2024 11:35 AM EST [facility] INR 1.5 LAB COAGULATION METHOD 07/01/2024 11:35 AM EST [facility] LAB Blood Venous blood specimen / Unknown Venipuncture / Unknown 07/01/2024 7:21 AM EST 07/01/2024 11:03 AM EST Ricardo Rhodes MD LAB BLOOD ORDERABLES [facility] LAB 299 [place], [place] [address] [phone] documented in this encounter Visit Diagnoses Diagnosis Unspecified atrial fibrillation (CMS/HCC) Other thrombophilia (CMS/HCC) Encounter for screening mammogram for breast cancer documented in this encounter Care Teams Meat Pickler Relationship Specialty Start Date End Date Elizabet Shannon MD [address] [place] [phone] PCP - General Internal Medicine 05/06/24 documented as of this encounter
--- OUTSIDE RECORDS SUMMARY | 2024-07-30 16:25 | XMS_ITS | Encounter Summary ---
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 Infusion Center 271 [facility] 2nd [place] [phone] 08/08/2024 10:40 AM EST Office Visit [facility] Cardiology Associates - [facility] [address] 300 [facility] 154 [place] [phone] Mikael Montoya NP 300 [place] [address] 09/12/2024 10:00 AM EDT Consult Orthopedic Surgery - [place] 250 175 [facility] 250 [place] [phone] Leeroy Schneider DPM 175 [facility] 250 [place] [address] 09/26/2024 11:30 AM EDT Office Visit Pulmonolgy - [place] 175 [facility] [address] [place] [phone] Chelsea Shi NP 175 [facility] 200 [place] [address] 11/26/2024 11:00 AM EDT Appointment Radiology Department - [address] [address] documented as of this encounter Procedures Procedure Name Priority Date/Time Associated Diagnosis Comments PROTHROMBIN TIME WITH INR Routine 07/04/2024 8:20 AM EST Other thrombophilia (CMS/HCC) 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 documented in this encounter Results * (ABNORMAL) Prothrombin time with INR (07/04/2024 8:20 AM EST) Protime 17.6(H) 10.6 - 13.9 sec LAB COAGULATION METHOD 07/04/2024 10:07 AM EST [facility] LAB INR 1.4 LAB COAGULATION METHOD 07/04/2024 10:07 AM EST [facility] LAB Blood Venous blood specimen / Unknown Venipuncture / Unknown 07/04/2024 8:20 AM EST 07/04/2024 9:45 AM EST Bruce Petersen MD LAB BLOOD ORDERABLES [facility] LAB 299 [place], [place] [address] [phone] documented in this encounter Visit Diagnoses Diagnosis Other thrombophilia (CMS/HCC) 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
--- OUTSIDE RECORDS SUMMARY | 2024-07-30 16:25 | XMS_ITS | Encounter Summary ---
[facility] Address [address] [place] [address] Care Team Providers Care Methods Study Analyst Name Role Phone Elizabet Shannon MD Primary Care Provider [phone] Encounter Details Date Type Department Care Team (Late st Contact Info) Description 06/27/2024 Lab Requisition [facility] - Main Lab 299 [facility] [place] [address] Bruce Petersen MD [facility] W [place], [place] [phone] Hypothyroidism, unspecified; Acute kidney failure, unspecified (CMS/HCC); [...] Anticoagulation - Warfarin Visit Coumadin Clinic - [address] [address] 08/05/2024 11:00 AM EST Appointment [facility] Infusion Center 271 [facility] 2nd [place] [phone] 08/08/2024 10:40 AM EST Office Visit [facility] Cardiology Associates - [facility] [address] 300 [facility] 154 [place] [phone] iMkael Montoya, ALAINA 300 [place] [address] 09/12/2024 10:00 AM EDT Consult Orthopedic Surgery - [place] 250 175 [facility] 250 [place] [phone] Leeroy Schneider DPM [address] [address] 09/26/2024 11:30 AM EDT Office Visit Pulmonolgy - [place] 175 [facility] 200 [place] [phone] Chelsea Shi NP 175 [facility] 200 [place] [address] 11/26/2024 11:00 AM EDT Appointment Radiology Department - [address] [address] documented as of this encounter Procedures Procedure [...] stimulating hormone (06/27/2024 8:37 AM EST) Pathologist [facility] TSH 2.33 0.40 - 4.00 mcIU/mL LAB CHEMISTRY METHOD 06/27/2024 11:32 AM EST [facility] LAB Blood Venous blood specimen / Unknown Venipuncture / Unknown 06/27/2024 8:37 AM EST 06/27/2024 10:21 AM EST Bruce Petersen MD LAB BLOOD ORDERABLES [facility] LAB 299 [place] [address], * (ABNORMAL) Comprehensive metabolic panel (06/27/2024 8:37 AM EST) [facility] Sodium 143 133 - 145 mmol/L LAB CHEMISTRY METHOD 06/27/2024 11:25 AM EST [facility] Potassium 4.3 3.5 - 5.5 mmol/L LAB CHEMISTRY METHOD 06/27/2024 11:25 AM EST [facility] Chloride 103 96 - 110 mmol/L LAB CHEMISTRY METHOD 06/27/2024 11:25 AM EST [facility] CO2 38(H) 21 - 32 mmol/L LAB CHEMISTRY METHOD 06/27/2024 11:25 AM EST [facility] Anion Gap 2(L) 3 - 11 LAB CHEMISTRY METHOD 06/27/2024 11:25 AM [facility] Glucose 81 70 - 100 mg/dL LAB CHEMISTRY METHOD 06/27/2024 11:25 AM [facility] BUN 47(H) 5 - 25 mg/dL LAB CHEMISTRY METHOD 06/27/2024 11:25 AM [facility] Creatinine 1.94(H) 0.50 - 1.10 mg/dL LAB CHEMISTRY METHOD 06/27/2024 11:25 AM [facility] eGFR 25(L) >=60 mL/min/1. 73m2 LAB CHEMISTRY METHOD 06/27/2024 11:25 AM [facility] Comment:Calculation based on the??Chronic Kidney Disease Epidemiology Collaboration (CKD-EPI) equation refit??without adjustment for race. BUN/Creatinine Ratio 24.2 LAB CHEMISTRY METHOD 06/27/2024 11:25 AM [facility] Calcium 8.7 8.5 - 10.5 mg/dL LAB CHEMISTRY METHOD 06/27/2024 11:25 AM [facility] AST (SGOT) 28 10 - 42 unit/L LAB CHEMISTRY METHOD 06/27/2024 11:25 AM [facility] ALT (SGPT) 14 10 - 60 unit/L LAB CHEMISTRY METHOD 06/27/2024 11:25 AM [facility] Alkaline Phosphatase 107 42 - 121 unit/L LAB CHEMISTRY METHOD 06/27/2024 11:25 AM [facility] Total Protein 8.1(H) 6.0 - 8.0 g/dL LAB CHEMISTRY METHOD 06/27/2024 11:25 AM [facility] Albumin 2.7(L) 3.2 - 5.0 g/dL LAB CHEMISTRY METHOD 06/27/2024 11:25 AM [facility] Total Bilirubin 0.5 0.0 - 1.4 mg/dL LAB CHEMISTRY METHOD 06/27/2024 11:25 AM EST [facility] Blood Venous blood specimen / Unknown Venipuncture / Unknown 06/27/2024 8:37 AM EST 06/27/2024 10:21 AM EST Bruce Petersen MD LAB BLOOD ORDERABLES Performing Organization Address [facility]/ZIP Co de Phone Number [facility] 299 [place] [address], * (ABNORMAL) Prothrombin time with INR (06/27/2024 8:37 AM EST) Pathologist [facility] Protime 19.3(H) 10.6 - 13.9 sec LAB COAGULATION METHOD 06/27/2024 10:45 AM EST [facility] INR 1.5 LAB COAGULATION METHOD 06/27/2024 10:45 AM [facility] Blood Venous blood specimen / Unknown Venipuncture / Unknown 06/27/2024 8:37 AM EST 06/27/2024 10:21 AM EST Bruce Petersen MD LAB BLOOD ORDERABLES Performing Organization Address City/[facility]/ZIP Co de Phone Number [facility] 299 [place] [address], * (ABNORMAL) Complete blood count (06/27/2024 8:37 AM EST) [facility] WBC 5.0 4.8 - 10.8 K/mcL LAB HEMETOLOGY METHOD 06/27/2024 10:58 AM EST [facility] RBC 3.90 3.80 - 4.80 M/mcL LAB HEMETOLOGY METHOD 06/27/2024 10:58 AM [facility] Hemoglobin 11.5 11.5 - 16.0 g/dL LAB HEMETOLOGY METHOD 06/27/2024 10:58 AM EST [facility] Hematocrit 38.6 35.0 - 47.0 % LAB HEMETOLOGY METHOD 06/27/2024 10:58 AM [facility] MCV 99.2(H) 79.0 - 98.0 FL LAB HEMETOLOGY METHOD 06/27/2024 10:58 AM [facility] MCH 29.6 27.0 - 32.0 pcg LAB HEMETOLOGY METHOD 06/27/2024 10:58 AM [facility] MCHC 29.8(L) 32.0 - 37.0 g/dL LAB HEMETOLOGY METHOD 06/27/2024 10:58 AM [facility] RDW 13.6 11.0 - 15.0 % LAB HEMETOLOGY METHOD 06/27/2024 10:58 AM [facility] Platelets 226 130 - 400 K/mcL LAB HEMETOLOGY METHOD 06/27/2024 10:58 AM [facility] MPV 10.7 7.0 - 11.0 FL LAB HEMETOLOGY METHOD 06/27/2024 10:58 AM [facility] NRBC 0.0 <1.0 % LAB HEMETOLOGY METHOD 06/27/2024 10:58 AM [facility] NRBC Absolute 0.00 <0.10 K/mcL LAB HEMETOLOGY METHOD 06/27/2024 10:58 AM [facility] Blood Venous blood specimen / Unknown Venipuncture / Unknown 06/27/2024 8:37 AM EST 06/27/2024 10:21 AM EST Bruce Petersen MD LAB BLOOD ORDERABLES [facility] 299 [place] [address], documented in this encounter Visit Diagnoses Diagnosis Hypothyroidism, unspecified Acute kidney failure, unspecified (CMS/HCC) Acute kidney failure, unspecified Heart failure, unspecified (CMS/HCC) Heart failure, unspecified Essential (primary) hypertension Unspecified essential hypertension Unspecified atrial fibrillation ([facility]/HCC) Encounter for screening mammogram for breast cancer documented in this encounter Care Teams Methods Study Analyst Relationship Specialty Start Date End Date Elizabet Shannon MD [address] [place] [address] PCP - General Internal Medicine 05/06/24 documented as of this encounter
--- OUTSIDE RECORDS SUMMARY | 2024-07-30 16:25 | XMS_ITS | Encounter Summary ---
[facility] Address [address] [place] [address] Care Team Providers Care Kindergarten Assistant Name Role Phone Elizabet Shannon MD Primary Care Provider [phone] Encounter Details Date Type Department Care Team (Latest Contact Info) Description 07/23/2024 11:00 AM EST Anticoagulation - Warfarin Visit Coumadin [address] [phone] Atrial fibrillation, 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 (CMS/HCC) (Primary Dx); assisted (current) use of anticoagulants Social History Tobacco [...] Anticoagulation - Warfarin Visit Coumadin Clinic - [address] [address] 08/05/2024 11:00 AM EST Appointment [facility] Infusion Center [address] [address] 08/08/2024 10:40 AM EST Office Visit [facility] Cardiology Associates - [facility] 154 300 [facility] 154 [place] [phone] Mikael Montoya NP 300 [place] [address] 09/12/2024 10:00 AM EDT Consult Orthopedic Surgery - [place] 250 175 [facility] 250 [place] [phone] Leeroy Schneider DPM 175 [facility] 250 [place] [address] 09/26/2024 11:30 AM EDT Office Visit Pulmonolgy - [place] 175 [facility] 200 [place] [phone] Chelsea Shi NP 175 [facility] 200 [place] [address] 11/26/2024 11:00 AM EDT Appointment Radiology Department - [address] [address] documented as of this encounter Visit Diagnoses Diagnosis Atrial fibrillation, 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 (CMS/HCC)- 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
--- OUTSIDE RECORDS SUMMARY | 2024-07-30 16:25 | XMS_ITS | Encounter Summary ---
Author Organization [facility] Address [address] [place] [address] Care Team Providers Care Hand Pleater Name Role Phone Elizabet Shannon MD Primary Care Provider [phone] Encounter Details Date Type Department Care Team (Latest Contact Info) Description 07/26/2024 11:00 AM EST Anticoagulation - Warfarin Visit Coumadin [address] [phone] Atrial fibrillation, 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 (CMS/HCC) (Primary Dx); jail (current) use of anticoagulants Social History Tobacco [...] Anticoagulation - Warfarin Visit Coumadin Clinic - [address] [address] 08/05/2024 11:00 AM EST Appointment [facility] Infusion Center [address] [place] [phone] 08/08/2024 10:40 AM EST Office Visit [facility] Cardiology Associates - [facility] 154 300 [facility] 154 [place] [phone] Mikael Montoya NP 300 [place] [address] 09/12/2024 10:00 AM EDT Consult Orthopedic Surgery - [place] 250 175 [facility] 250 [place] [phone] Leeroy Schneider DPM 175 [facility] 250 [place] [address] 09/26/2024 11:30 AM EDT Office Visit Pulmonolgy - [place] 175 [facility] 200 [place] [phone] Chelsea Shi NP 175 [facility] 200 [place] [address] 11/26/2024 11:00 AM EDT Appointment Radiology Department [address] [address] documented as of this encounter Procedures Procedure Name Priority Date/Time Associated Diagnosis Comments POC PROTIME INR BLOOD Routine 07/26/2024 Atrial fibrillation, 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 (CMS/HCC) 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 documented in this encounter Results * POC Protime INR Blood (07/26/2024) Lot Number INR POC 3.4 Prothrombin Time POC Exp Date Blood 07/26/2024 Doe Hair MD POINT OF CARE TEST E NTER/EDIT ORDERABLES documented in this encounter Visit Diagnoses Diagnosis Atrial fibrillation, 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 (CMS/HCC)- Primary 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 Long-term (current) use of anticoagulants Encounter for screening mammogram for breast cancer documented in this encounter Care Teams Hand Pleater Relationship Specialty Start Date End Date Elizabet Shannon MD [address] [place] [address] PCP - General Internal Medicine 05/06/24 documented as of this encounter
--- OUTSIDE RECORDS SUMMARY | 2024-07-30 16:26 | XMS_ITS | Encounter Summary ---
Author Organization [facility] Address [address] [place] [address] Care Team Providers Care Ignition Mechanic Name Role Phone Elizabet Shannon MD Primary Care Provider [phone] Reason for Visit * Episode Based Medications (Routine) - Authorized Specialty Diagnoses / Procedures Referred By Contac t Referred To Contact Diagnoses Moderate asthma without complication, unspecified whether persistent Evangelina Lou MD [address] [address] [facility] Infusion Center [address] [place] [phone] Referral ID Status Reason Start Date Expiration Date V isits Requested Visits Authorized [id number] Authorized 05/08/2024 05/08/2025 1 23 Encounter Details Date Type Department Care Team (Latest Contact Info) Description 07/22/2024 11:00 AM EST - 07/22/2024 11:59 PM EST Hospital Encounter Infusion Center [address] [place] [phone] Evangelina Lou MD [address] [address] Moderate asthma without complication, unspecified whether persistent [...] Anticoagulation - Warfarin Visit Coumad[facility] Clinic - [address] [phone] 08/05/2024 11:00 AM EST Appointment Infusion Center [address] [facility] 2nd [place] [phone] 08/08/2024 10:40 AM EST Office Visit [facility] - [facility] 154 300 [facility] 154 [place] [phone] Mikael Montoya NP 300 [place] [address] 09/12/2024 10:00 AM EDT Consult Orthopedic Surgery - [place] [address] [phone] Leeroy Schneider DPM [address] [address] 09/26/2024 11:30 AM EDT Office Visit Pulmonolgy - [place] 175 [facility] 200 [place] [phone] Chelsea Shi NP [address] [address] 11/26/2024 11:00 AM EDT Appointment Radiology Department - [address] [phone] documented as of this encounter Visit Diagnoses [...] 07/22/2024 documented in this encounter Care Teams Ignition Mechanic Relationship Specialty Start Date End Date Elizabet Shannon MD [address] [place] [address] PCP - General Internal Medicine 05/06/24 documented as of this encounter
--- OUTSIDE RECORDS SUMMARY | 2024-07-30 16:26 | XMS_ITS | Encounter Summary ---
Author Organization [facility] Address [address] [place] [address] Care Team Providers Care Roll Up Machine Operator Name Role Phone Elizabet Shannon MD Primary Care Provider [phone] Reason for Visit * Reason Comments Hospital Follow-up Encounter Details Date Type Department Care Team (Late st Contact Info) Description 07/16/2024 1:00 PM EST Office Visit Internal Medicine - [place] 175 [facility] [address] [place] [phone] Elizabet Shannon MD 175 [facility] 200 [place] [address] Acute on chronic heart failure with preserved [...] the following complaints. She was admitted to [facility] before [place] due to respiratory distress secondary to heart failure, which led to pulmonary edema. She was discharged on 06/25/2024 and subsequently transferred to a rehabilitation center, where she stayed until 07/07/2024. During her hospital stay, she was prescribed quetiapine for a duration of 7 days. Her medication was switched from Lasix to torsemide. She has a scheduled appointment with her manager fashion on 07/24/2024. Today she complained no respiratory [...] recliner. 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: No abnormal vaginal bleeding or abnormal vaginal [...] Noted Acute on chronic diastolic heart failure ([facility]) 06/25/2024 Shortness of breath 06/19/2024 SOB (shortness of breath) 06/18/2024 Atrial fibrillation ([facility]) 06/04/2024 group home (current) use of anticoagulants 06/04/2024 Moderate asthma without complication 05/08/2024 A-fib ([facility]) 04/14/2024 Benign essential HTN 04/14/2024 (HFpEF) heart failure with preserved ejection fraction ([facility]) 04/14/2024 Dilated aortic root ([facility]) 04/14/2024 PVD (peripheral vascular disease) ([facility]) 04/14/2024 Venous (peripheral) insufficiency 04/14/2024 EMERY (obstructive sleep apnea) 04/14/2024 HLD (hyperlipidemia) 04/14/2024 Past Surgical History: Procedure Laterality Date [place]ONOS[place] 2012 [facility] [place] OTHER SURGICAL HISTORY D&C SOCIAL HISTORY: [...] Shannon MD. ALLERGIES: Allergies Allergen Reactions Cortane-B [[id number]] Lisinopril Simvastatin PHYSICAL EXAM: Visit Vitals BP [...] chronic heart failure with preserved ejection fraction ([facility]/HCC) 2. Hospital discharge follow-up 3. Moderate persistent asthma without complication 4. History of hypokalemia 5. Stage 3a chronic kidney disease ([facility]) PLAN: Acute on chronic heart failure with preserved ejection fraction ([facility]) (Primary) Hospital discharge follow-up Moderate persistent asthma without complication - Inhaler Spacer History of hypokalemia Stage 3a chronic kidney disease ([facility]) Other orders - predniSONE (DELTASONE) 20 mg [...] torsemide as prescribed - Upcoming appointment with manager fashion on 01/22/2024, crucial to keep 2. Cough/acute [...] cough persists, schedule an appointment with the traffic controller cable I have obtained verbal consent from Adriana [...] Anticoagulation - Warfarin Visit Coumadin Clinic - [address] [phone] 08/05/2024 11:00 AM EST Appointment [facility] Infusion Center [address] [facility] 2nd [place] [phone] 08/08/2024 10:40 AM EST Office Visit [facility] - [facility] 154 300 [facility] 154 [place] [phone] Mikael Montoya NP 300 [place] [address] 09/12/2024 10:00 AM EDT Consult Orthopedic Surgery - [place] [address] [phone] Leeroy Schneider DPM [address] [address] 09/26/2024 11:30 AM EDT Office Visit Pulmonolgy - [place] 175 [facility] 200 [place] [phone] Chelsea Shi NP 175 [facility] 200 [place] [address] 11/26/2024 11:00 AM EDT Appointment Radiology Department - [address] [phone] documented as of this encounter Visit Diagnoses Diagnosis Acute on chronic heart failure with preserved ejection fraction ([facility]/HCC)- Primary Hospital discharge follow-up Other follow-up examination Moderate persistent asthma without complication History of hypokalemia Stage 3a chronic kidney disease ([facility]) Encounter for screening mammogram for breast cancer [...] mg tabletIndications:Sever e persistent asthma with exacerbation ([facility]) Take 3 tablets (30 mg total) by [...] 07/16/2024 documented in this encounter Care Teams Roll Up Machine Operator Relationship Specialty Start Date End Date Elizabet Shannon MD [address] [place] [address] PCP - General Internal Medicine 05/06/24 documented as of this encounter
--- OUTSIDE RECORDS SUMMARY | 2024-07-30 16:26 | XMS_ITS | Encounter Summary ---
Author Organization [facility] Address [address] [place] [address] Care Team Providers Care Tread Tuber Machine Operator Name Role Phone Elizabet Shannon MD Primary Care Provider [phone] Reason for Visit * Reason Comments Transitional Care Management [facility]- 4 through 07/04/2024 notes scanned Encounter Details Date Type Department Care Team (Late st Contact Info) Description 07/11/2024 1:20 PM EST Office Visit Pulmonolgy - [place] [address] [facility] [address] [place] [phone] Chelsea Shi NP 175 [facility] 200 [place] [address] Severe persistent asthma with exacerbation (CMS/HCC) (Primary [...] MD REASON FOR VISIT: Transitional Care Management ([facility]-06/18/24 through 07/04/2024 notes scanned) [facility] [...] osteoarthritis and overweight. She was admitted to [facility] from our office on 06/18/2024 and discharged [...] Xolair. We will need to reschedule with [facility] infusion suit. Patient would benefit from additional prednisone to see if cough and wheezes would subside. She had EMERY but was not able to tolerate PAP therapy. Maystill have hypoxia. We will send overnight oximetry to operate to reevaluate. She is accompanied byher son today who helps with history and interpretation. ALLERGIES: Allergies Allergen Reactions Cortane-B [[id number]-[id number]] Lisinopril Simvastatin MEDICATIONS: Outpatient Medications Marked as [...] disease) Heart failure with preserved ejection fraction ([facility]/HCC) HTN (hypertension) Osteopenia PAF (paroxysmal atrial fibrillation) ([facility]) Sleep apnea PAST SURGICAL HISTORY: Past Surgical History: Procedure Laterality Date [place]COPY [place] [facility] [place] OTHER SURGICAL HISTORY D&C SOCIAL HISTORY: TOBACCO: Never ALCOHOL: None DRUGS: None 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 Coli Septicemia VITAL [...] DLCO:57/127 RADIOLOGY TESTS: 05/28/2024 Chest x-ray at [facility] HISTORY: Increased cough and wheezes, chest tightness, [...] ASSESSMENT: 1. Severe persistent asthma with exacerbation ([facility]) albuterol 2.5 mg /3 mL (0.083 %) nebulizer solution albuterol HFA (Ventolin HFA) 90 mcg/actuation inhaler Overnight Pulse Oximetry DISCONTINUED: predniSONE (DELTASONE) 10 mg tablet 2. EMERY (obstructive sleep apnea) 3. Acute on chronic diastolic heart failure ([facility]) 4. Chronic atrial fibrillation ([facility]) Assessment & Plan 1. Severe [...] hypoventilation. - Send overnight oximetry test to [facility] Follow-up - Reschedule Xolair injection with [facility] infusion suite. Last infusion 06/05/2024. - The [...] EST Anticoagulation - Warfarin Visit Coumadin Clinic [address] [phone] 08/05/2024 11:00 AM EST Appointment [facility] Infusion Center [address] [facility] 2nd [place] [phone] 08/08/2024 10:40 AM EST Office Visit [facility] - [facility] 154 300 [facility] 154 [place] [phone] Mikael Montoya NP 300 [place] [address] 09/12/2024 10:00 AM EDT Consult Orthopedic Surgery - [place] 250 175 [facility] 250 [place] [phone] Leeroy Schneider, ANDREW [address] [address] 09/26/2024 11:30 AM EDT Office Visit Pulmonolgy - [place] [address] [phone] Chelsea Shi NP [address] [address] 11/26/2024 11:00 AM EDT Appointment Radiology Department [address] [phone] Scheduled Orders Name Type Priority Associated Diagnoses Orde r Schedule Overnight Pulse Oximetry Respiratory Care Routine Severe persistent asthma with exacerbation ([facility]) 1 Occurrences starting 07/21/2024 until 07/21/2025 documented as of this encounter Visit Diagnoses Diagnosis Severe persistent asthma with exacerbation (CMS/HCC)- Primary Unspecified asthma, with exacerbation EMERY (obstructive sleep apnea) Obstructive sleep apnea (adult) (pediatric) Acute on chronic diastolic heart failure (CMS/HCC) Acute on chronic diastolic heart failure Chronic atrial fibrillation ([facility]/HCC) Atrial fibrillation Encounter for screening mammogram for breast cancer documented in this encounter Discontinued Medications Medication Sig Discontinue Reason Start Date End Da te albuterol HFA (Ventolin HFA) 90 mcg/actuation inhaler Inhale 2 puffs by mouth every 4 (four) hours if needed for wheezing or shortness of breath. Reorder 06/10/2024 07/11/2024 documented as of this encounter Care Teams Tread Tuber Machine Operator Relationship Specialty Start Date End Date Elizabet Shannon MD [address] [address] PCP - General Internal Medicine 05/06/24 documented as of this encounter
--- OUTSIDE RECORDS SUMMARY | 2024-07-30 16:26 | XMS_ITS | Clinical Summary ---
Author Organization [address] [place] [address] Address [address] [place] [address] Phone Care Team Providers Care Bus Driver/Monitor Name Role Phone Elizabet Shannon MD Primary Care Provider [phone] Allergies Active Allergy Reactions Criticality Noted Date Comments Wahkylezq-Sa-Itygfgmsxnjhx Lisinopril 04/14/2024 Simvastatin 04/14/2024 Medications Medication Sig [...] mg tabletIndication s:Severe persistent asthma with exacerbation (CMS/[facility]) Take 3 tablets (30 mg total) by [...] (shortness of breath) 06/18/2024 Atrial fibrillation 06/04/2024 penitentiary (current) use of anticoagulants 2023 Moderate asthma [...] EST Anticoagulation - Warfarin Visit Coumadin [address] [address] Atrial fibrillation, 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 (CMS/HCC) (Primary Dx); penitentiary (current) use of anticoagulants 07/26/2024 Telephone Pulmonolgy - [place] 175 [facility] 200 [place] [phone] Graciela Mckinley MA DME request 07/23/2024 11:00 AM EST Anticoagulation - Warfarin Visit Coumadin [address] [phone] Atrial fibrillation, 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 (CMS/HCC) (Primary Dx); 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 07/23/[address] [phone] Felicita Alvarado LPN 07/22/2024 11:00 AM EST - 07/22/2024 11:59 PM EST Hospital Encounter [facility] 271 [facility] 2nd [place] [phone] Evangelina Lou MD Moderate asthma without complication, unspecified whether persistent (Primary Dx) Discharge Disposition: Home or Self Care 07/22/2024 Telephone [facility] 154 300 [facility] 154 [place] [phone] Mikael Montoya NP ECHOCARDIOGRAM 07/16/2024 1:00 PM EST Office Visit Internal Medicine - [place] 175 [facility] 200 [place] [phone] Elizabet Shannon MD Acute on chronic heart failure with preserved ejection fraction (CMS/HCC) (Primary Dx); Hospital discharge follow-up; Moderate persistent asthma without complication; History of hypokalemia; Stage 3a chronic kidney disease (CMS/HCC) 07/16/2024 Anticoagulation - Warfarin Visit Coumadin Clinic [address] [address] Taya Camacho LPN Atrial fibrillation, 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 (CMS/HCC) (Primary Dx); 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 07/15/2024 Telephone Internal Medicine - [address] [phone] Janet Mcleod MA Request For Order(s) ([place] [facility] Cert 06/03/24-08/01/24 Plan Of Care /) 07/12/2024 Anticoagulation - Warfarin Visit Coumadin Clinic [address] [phone] Felicita Alvarado LPN Atrial fibrillation, 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 (CMS/HCC) (Primary Dx); penitentiary (current) use of anticoagulants 07/11/2024 1:20 PM EST Office Visit Pulmon[address] [phone] Chelsea Shi NP Severe persistent asthma with exacerbation (CMS/HCC) (Primary Dx); EMERY (obstructive sleep apnea); Acute on chronic diastolic heart failure (CMS/HCC); Chronic atrial fibrillation (CMS/HCC) 07/11/2024 Telephone Internal Medicine - [place] [address] [phone] Elizabet Shannon MD Med Refill 07/08/[address] [address] Chelsea Shi NP Hospital Follow-up 07/05/2024 Lab Requisition [facility] - Main Lab 299 [facility] [place] [phone] Bruce Petersen MD Unspecified atrial fibrillation (CMS/HCC); Other thrombophilia ([facility]/HCC) 07/03/2024 Lab Requisition [facility] 299 [place] [phone] Bruce Petersen MD Other thrombophilia ([facility]/HCC); penitentiary (current) use of anticoagulants 06/28/2024 Lab Requisition [facility] Lab 299 [place] [phone] Ricardo Rhodes MD Unspecified atrial fibrillation (CMS/HCC); Other thrombophilia ([facility]/HCC) 06/27/2024 Lab Requisition [facility] [address] [place] [phone] Bruce Petersen MD Hypothyroidism, unspecified; Acute kidney failure, unspecified (CMS/HCC); Heart failure, unspecified ([facility]/HCC); Essential (primary) hypertension; Unspecified atrial fibrillation ([facility]/HCC) 06/18/2024 2:23 PM EST - 06/25/2024 11:31 AM EST Hospital Encounter [facility] 271 [place] [phone] Delroy Moses MD Ishtiaq, Rizwan, MD Surendran, Anupama, MD Santoyo-Pach eco, Omar D, MD Shortness of breath (Primary Dx); Pneumonia of both lungs due to infectious organism, unspecified part of lung; SOB (shortness of breath); Acute on chronic heart failure with preserved ejection fraction ([facility]/HCC) Discharge Disposition: Alf Facility 06/18/2024 1:30 PM EST Anticoagulation - Warfarin Visit Coumadin Clinic [facility] 175 175 [place] [phone] Atrial fibrillation, 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 ([facility]) (Primary Dx); penitentiary (current) use of anticoagulants 06/18/2024 1:00 PM EST Office Visit Pulmonolgy - [place] 175 [facility] [address] [place] [address] Chelsea Shi NP Longstanding persistent atrial fibrillation (CMS/HCC) (Primary Dx); Chronic heart failure with preserved ejection fraction (CMS/HCC); EMERY (obstructive sleep apnea); Moderate persistent asthma without complication; Cough with hemoptysis 06/11/2024 11:10 AM EST Anticoagulation - Warfarin Visit [facility]in Clinic [address] [phone] Atrial fibrillation, 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 (CMS/HCC) (Primary Dx); 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 06/10/2024 1:45 PM EST Office Visit Internal Medicine [facility] [address] [phone] Elizabet Shannon MD Hospital discharge follow-up (Primary Dx); Chronic heart failure with preserved ejection fraction (CMS/HCC); Moderate persistent asthma without complication; Atrial fibrillation, 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 (CMS/HCC); EMERY (obstructive sleep apnea); Mixed hyperlipidemia; penitentiary (current) use of anticoagulants; PVD (peripheral vascular disease) (CMS/HCC); Benign essential HTN; Dilated aortic root (CMS/HCC); Nail problem; Dependent lymphedema 06/10/2024 Telephone Internal Medicine [facility] [address] [phone] Elizabet Shannon MD VNA 06/05/2024 11:00 AM EST - 06/05/2024 11:59 PM EST Hospital Encounter [facility] [address] [phone] Moderate asthma without complication, unspecified whether persistent (Primary Dx) Discharge Disposition: Home or Self Care 06/04/2024 11:00 AM EST Anticoagulation - Warfarin Visit Coumadin Clinic [address] [phone] Atrial fibrillation, 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 (CMS/HCC) (Primary Dx); penitentiary (current) use of anticoagulants 06/03/2024 Telephone Internal Medicine [facility] [address] [phone] Elizabet Shannon MD Hospital Follow-up 06/03/2024 Telephone Internal Medicine - [place] [address] [phone] Elizabet Shannon MD Appointment (Appt today start of care with Nuha GUILLEN) 06/03/2024 Telephone Internal Medicine [facility] [address] [phone] Elizabet Shannon MD VNA 05/28/2024 11:00 AM EST - 05/28/2024 11:59 PM EST Hospital Encounter [address] [address] Moderate persistent asthma with acute exacerbation Discharge Disposition: Home or Self Care 05/28/2024 10:30 AM EST Anticoagulation - Warfarin Visit Coumadin Clinic [address] [phone] Atrial fibrillation, 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 (CMS/HCC) (Primary Dx); PVD (peripheral vascular disease) (CMS/HCC); 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 05/22/2024 11:00 AM EST - 05/22/2024 11:59 PM EST Hospital Encounter [facility] 271 [facility] 2nd [place] [phone] Moderate asthma without complication, unspecified whether persistent (Primary Dx) Discharge Disposition: Home or Self Care 05/17/2024 10:10 AM EST [facility] [address] [phone] Chelsea Shi NP Moderate persistent asthma with acute exacerbation (Primary Dx); Tracheomalacia, acquired; EMERY (obstructive sleep apnea); Chronic heart failure with preserved ejection fraction (CMS/HCC); Obesity (BMI 30.0-34.9) 05/[facility]20[facility] [address] [phone] Chelsea Shi NP PROVIDER CALL BACK 05/13/2024 Telephone [facility] - [facility] 154 300 [facility] 154 [place] [phone] Mikael Montoya NP 05/10/2024 Telephone [facility] - [facility] [address] [place] [address] Mikael Montoya NP 05/09/2024 11:25 AM EST - 05/09/2024 11:59 PM EST Hospital Encounter [facility] [address] [facility] 2nd [place] [phone] Moderate asthma without complication, unspecified whether persistent (Primary Dx) Discharge Disposition: Home or Self Care 05/09/2024 Lab Requisition [facility] - Main Lab [address] [facility] [place] [address] Mikael Montoya NP Mixed hyperlipidemia; Peripheral vascular disease, unspecified (CMS/HCC); Chronic diastolic (congestive) heart failure (CMS/HCC); Longstanding persistent atrial fibrillation (CMS/HCC) 05/08/2024 11:00 AM EST Anticoagulation - Warfarin Visit Coumadin Clinic [address] [phone] Atrial fibrillation, 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 (CMS/HCC) (Primary Dx); 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 05/08/2024 Telephone Pulmonolgy - [place] 175 [facility] 200 [place] [address] Chelsea Shi NP Request For Order(s) (Please enter Therapy Plan for Omalizumab (Xolair) 150MG injection /Sig: Inject 375mg into the skin every 14 days/Refills: 11 Patient is here on 05/09/24) 05/07/2024 Telephone Internal Medicine - [place] 175 [facility] 200 [place] [address] Lorie Gamez MA Faxed order (Home Care Delivered) 05/06/2024 12:40 PM EST Office Visit [facility] - [address] [facility] [address] [place] [phone] Mikael Montoya NP Longstanding persistent atrial fibrillation (CMS/HCC) (Primary Dx); Chronic heart failure with preserved ejection fraction (CMS/HCC); PVD (peripheral vascular disease) (CMS/HCC); Moderate mixed hyperlipidemia not requiring statin therapy 04/30/2024 11:00 AM EST Anticoagulation - Other Visit (DOAC) Coumadin [address] [phone] from Last 3 Months Surgical History Surgery Date Site/Laterality Comments COLONOSCOPY 06/26/2011 - 06/25/2012 [facility]ONE POLYP OTHER SURGICAL HISTORY D&C Medical History [...] - Warfarin Visit Coumadin Clinic - [address] [phone] 08/05/2024 11:00 AM EST Appointment [facility] [address] [facility] 2nd [place] [phone] 08/08/2024 10:40 AM EST Office Visit [facility] - [facility] 154 300 [facility] 154 [place] [phone] Mikael Montoya NP 300 [place] [address] 09/12/2024 10:00 AM EDT Consult Orthopedic Surgery - [place] 250 175 [facility] 250 [place] [phone] Leeroy Schneider, ANDREW 175 [facility] 250 [place] [address] 09/26/2024 11:30 AM EDT Office Visit Pulmonolgy - [place] 175 [facility] 200 [place] [phone] Chelsea Shi NP 175 [facility] 200 [place] [address] 11/26/2024 11:00 AM EDT Appointment Radiology Department - [address] [phone] Health Maintenance Due Date Last Done Comments [...] Routine 07/26/2024 Atrial fibrillation, 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 (CMS/HCC) penitentiary (current) use of anticoagulants PROTHROMBIN TIME WITH INR STAT 07/23/2024 11:35 AM EST Chronic atrial fibrillation (CMS/HCC) PVD (peripheral vascular disease) (CMS/HCC) penitentiary (current) use of anticoagulants PROTHROMBIN TIME WITH INR Routine 07/16/2024 12:41 PM EST Atrial fibrillation, 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 (CMS/HCC) 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 PVD (peripheral vascular disease) (CMS/HCC) PROTHROMBIN TIME WITH INR Routine 07/11/2024 1:11 PM EST Atrial fibrillation, 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 (CMS/HCC) 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 PVD (peripheral vascular disease) (CMS/HCC) PROTHROMBIN TIME WITH INR Routine 07/04/2024 8:20 AM EST Other thrombophilia (CMS/HCC) penitentiary (current) use of anticoagulants PROTHROMBIN TIME WITH [...] PM EST Atrial fibrillation, 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 (CMS/HCC) 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 POC PROTIME INR BLOOD Routine 06/11/2024 Atrial fibrillation, 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 (CMS/HCC) penitentiary (current) use of anticoagulants POC PROTIME INR BLOOD Routine 06/04/2024 Atrial fibrillation, 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 (CMS/HCC) penitentiary (current) use of anticoagulants XR CHEST 2 VIEWS Routine 05/28/2024 11:1 1 AM EST Moderate persistent asthma with acute exacerbation POC PROTIME INR BLOOD Routine 05/28/2024 Atrial fibrillation, 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 (CMS/HCC) PVD (peripheral vascular disease) (CMS/HCC) 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 Pathologist [facility] Protime 113.9(H) 10.6 - 13.9 sec LAB COAGULATION METHOD 07/23/2024 3:40 PM EST [facility] LAB INR 8.9(HH) LAB COAGULATION METHOD 07/23/2024 3:40 PM EST [facility] LAB Blood Venous blood specimen / Unknown Venipuncture / Unknown 07/23/2024 11:35 AM EST 07/23/2024 11:35 AM EST Jerry Akers MD LAB BLOOD ORDERABLES [facility] [address] [place] [address], * (ABNORMAL) Complete blood count (06/27/2024 8:37 AM EST) [facility] WBC 5.0 4.8 - 10.8 K/[facility] LAB HEMETOLOGY METHOD 06/27/2024 10:58 AM EST [facility] RBC 3.90 3.80 - 4.80 [...] MD LAB BLOOD ORDERABLES Performing Organization Address City/[facility]/ZIP Co de Phone Number [facility] LAB [address] [place] [address], * Thyroid stimulating hormone (06/27/2024 8:37 AM EST) [facility] TSH 2.33 0.40 - 4.00 mcIU/mL LAB CHEMISTRY METHOD 06/27/2024 11:32 AM EST [facility] LAB Blood Venous blood specimen / Unknown Venipuncture / Unknown 06/27/2024 8:37 AM EST 06/27/2024 10:21 AM EST Bruce Petersen MD LAB BLOOD ORDERABLES Performing Organization Address [facility] Co de Phone Number [facility] LAB [address] [place] [address], * (ABNORMAL) Comprehensive metabolic panel (06/27/2024 8:37 AM EST) Only the most recent of3 resultswithin the time period is included. [facility] Sodium 143 133 - 145 mmol/L [...] EST Bruce Petersen MD LAB BLOOD ORDERABLES [facility] [address] [place] [address], [place] [phone] * Lavender tube (06/25/2024 7:05 AM EST) Only the most recent of2 resultswithin the time period is included. Extra Tube Hold for add-ons. 06/25/2024 9:01 AM EST [facility] LAB Comment:Auto resulted. Blood Venous blood specimen / Unknown Venipuncture / Unknown 06/25/2024 7:05 AM EST 06/25/2024 7:48 AM EST Gustavo Quinteros MD LAB BLOOD ORDE DESTINEE Performing Organization Address City/[facility]/ZIP Co de Phone Number [facility] [address] [place] [address], [place] [phone] * SST tube (06/25/2024 7:03 AM EST) Only the most recent of3 resultswithin the time period is included. Extra Tube Hold for add-ons. 06/25/2024 9:01 AM EST [facility] LAB Comment:Auto resulted. Blood Venous blood specimen / Unknown Venipuncture / Unknown 06/25/2024 7:03 AM EST 06/25/2024 7:50 AM EST Gustavo Quinteros MD LAB BLOOD ORDE DESTINEE Performing Organization Address City/[facility]/ZIP Co de Phone Number [facility] [address] [place] [address], [place] [phone] * (ABNORMAL) CBC auto differential (06/24/2024 6:47 AM EST) Only the most recent of5 resultswithin the time period is included. WBC 5.9 4.8 - 10.8 K/[facility] LAB HEMETOLOGY METHOD 06/24/2024 7:40 [...] Michaela Dove MD LAB BLOOD ORDERABLE S [facility] [address] [place] [address], * (ABNORMAL) Basic metabolic panel (06/24/2024 6:47 [...] LAB CHEMISTRY METHOD 06/24/2024 7:58 AM EST [facility] Blood Venous blood specimen / Unknown Venipuncture / Unknown 06/24/2024 6:47 AM EST 06/24/2024 7:05 AM EST Michaela Dove MD LAB BLOOD ORDERABLE S Performing Organization Address [facility] Co de Phone Number [facility] [address] [place] [address], * ECG 12 lead (06/23/2024 5:12 AM EST) Only the most recent of3 resultswithin the time period is included. Ventricular Rate ECG 101 BPM GEMUSE Atrial Rate 125 BPM GEMUSE QRS Duration 92 ms GEMUSE Q-T Interval 342 ms GEMUSE QTc 443 ms GEMUSE R [place] -14 degrees GEMUSE T [place] -17 degrees GEMUSE ECG Interpretation Atrial fibrillation with rapid ventricular response Low voltage QRS Inferior infarct , age undetermined Abnormal ECG When compared with ECG of 18-JUN-2024 16:12, Vent. rate has increased BY ??39 BPM Inferior infarct is now Present Confirmed by MD Xavier, [place] ([id number]) on 06/24/2024 8:35:44 AM GEMUSE 06/23/2024 5:12 AM EST 06/24/2024 8:35 AM EST Vy KIRK ECG ORDERABLES Performing Organization Address City/[facility]/ZIP Co de Phone Number GEMUSE * (ABNORMAL) B-type natriuretic peptide (06/22/2024 7:07 AM EST) Only the most recent of3 resultswithin the time period is included. BNP 124(H) <=100 pcg/mL LAB CHEMISTRY METHOD 06/22/2024 9:32 AM EST [facility] Blood Venous blood specimen / Unknown Venipuncture / Unknown 06/22/2024 7:07 AM EST 06/22/2024 7:33 AM EST Michaela Dove MD LAB BLOOD ORDERABLE S Performing Organization Address [facility]/ZIP Co de Phone Number [facility] [address] [place] [address], * Magnesium (06/22/2024 7:07 AM EST) Only the most recent of3 resultswithin the time period is included. Magnesium 1.9 1.9 - 2.6 mg/dL LAB CHEMISTRY METHOD 06/22/2024 8:23 AM EST [facility] LAB Blood Venous blood specimen / Unknown Venipuncture / Unknown 06/22/2024 7:07 AM EST 06/22/2024 7:33 AM EST Michaela Dove MD LAB BLOOD ORDERABLE S Performing Organization Address [facility] Co de Phone Number [facility] [address] [place] [address], * XR Chest 2 Views (06/20/2024 12:30 [...] Signed Date: 06/20/2024 12:35 ET Workstation ID: [id number] Transcribed By: Self Edit Transcribed Date: 06/20/2024 [...] Signed Date: 06/20/2024 12:35 ET Workstation ID: [id number] Transcribed By: Self Edit Transcribed Date: 06/20/2024 12:34 ET Michaela Dove MD IMG XR PROCEDURES * (ABNORMAL) TRANSTHORACIC ECHOCARDIOGRAM (TTE) COMPLETE W/ CONTRAST (06/20/2024 10:19 AM EST) Left Atrium Minor [place] 6.3 cm CV PACS Left Atrium Major [place] 7.2 cm CV PACS LA Area Sys [...] - 100 mg/dL 06/20/2024 8:28 AM EST [facility] Blood Capillary blood specimen / Unknown 06/20/2024 8:28 AM EST 06/20/2024 8:30 AM EST Michaela Dove MD LAB POINT OF CARE T EST DOCKED DEVICE UNSOLICITED RESULTS Performing Organization Address City/[facility]/ZIP Co de Phone Number [facility] [address] [place] [address], [place] [phone] * (ABNORMAL) Procalcitonin (06/19/2024 6:06 AM EST) Procalcitonin 0.20(H) <=0.16 ng/mL LAB CHEMISTRY METHOD 06/19/2024 8:35 AM EST [facility] Blood Venous blood specimen / Unknown Venipuncture / Unknown 06/19/2024 6:06 AM EST 06/19/2024 6:46 AM EST Narrative [facility] - 06/19/2024 8:35 AM EST [...] KIRK LAB BLOOD ORDERABLES Performing Organization Address [facility]/ZIP Co de Phone Number [facility] [address] [place] [address], * ECG-Annotated (06/19/2024) Provider Onbase MD ECG ORDERABLES * Troponin I high sensitivity (06/18/2024 4:42 PM EST) Only the most recent of2 resultswithin the time period is included. [facility] High Sensitivity Troponin I 28 <=54 ng/L LAB CHEMISTRY METHOD 06/18/2024 5:[address] [facility] LAB Blood Venous blood specimen / Unknown Venipuncture / Unknown 06/18/2024 4:42 PM EST 06/18/2024 4:57 PM EST [facility] LAB - 06/18/2024 5:23 PM EST High levels of biotin in samples may falsely decrease hsTroponin values. ??Use caution when interpreting hsTroponin results in patients taking biotin who exhibit renal impairment (eGFR <60) or in patients taking more than 20 mg/day of biotin. Delroy Moses MD LAB BLOOD ORDERAB LES [facility] [address] [place] [address], * Respiratory virus panel molecular study (06/18/2024 4:18 PM EST) [facility] Adenovirus Detection by PCR Not Detected [...] 06/18/2024 4:18 PM EST 06/18/2024 4:32 PM [facility] LAB - 06/18/2024 5:27 PM EST Testing was performed using the [employer] Respiratory Pathogen PCR Assay. All results must [...] MICROBIOLOGY - GENERAL ORDERABLES Performing Organization Address [facility]/ZIP Co de Phone Number [facility] [address] [place] [address], [place] [phone] * Lipase (06/18/2024 3:03 PM EST) [facility] Lipase 22 13 - 75 unit/L LAB CHEMISTRY METHOD 06/18/2024 3:50 PM EST [facility] LAB Blood Venous blood specimen / Unknown Venipuncture / Unknown 06/18/2024 3:03 PM EST 06/18/2024 3:16 PM EST Delroy Moses MD LAB BLOOD ORDERAB LES Performing Organization Address [facility] de Phone Number [facility] [address] [place] [address], [place] [phone] * Lipid panel with reflex to direct LDL (05/09/2024 12:00 PM EST) [facility] Cholesterol 133 0 - 200 mg/dL LAB CHEMISTRY METHOD 05/09/2024 4:50 PM EST [facility] Triglycerides 44 0 - 150 mg/dL LAB CHEMISTRY METHOD 05/09/2024 4:50 PM EST [facility] LAB HDL 83 >=40 mg/dL LAB CHEMISTRY METHOD 05/09/2024 4:50 PM EST [facility] LDL Calculated 41 0 - 100 mg/dL LAB CHEMISTRY METHOD 05/09/2024 4:50 PM EST [facility] LAB VLDL Cholesterol Trino 8.8 mg/dL LAB CHEMISTRY METHOD 05/09/2024 4:50 PM EST [facility] LAB Non HDL Chol. 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
--- OUTSIDE RECORDS SUMMARY | 2024-07-30 16:26 | XMS_ITS | Encounter Summary ---
Author Organization [facility] Address [address] [place] [address] Care Team Providers Care Semiconductor Engineer Name Role Phone Elizabet Shannon MD Primary Care Provider [phone] Reason for Visit * Reason Onset Date Comments VNA 06/10/2024 Encounter Details Date Type Department Care Team ([facility] st Contact Info) Description 06/10/2024 Telephone Internal Medicine - [place] 175 [facility] [address] [place] [address] Elizabet Shannon MD 175 [facility] 200 [place] [address] VNA Social History Tobacco Use Types Packs/Day [...] 12:38 PM EST Call to Buddy from [employer] # [phone], left message to call back * Chepe Nye - 06/10/2024 12:07 PM EST VNA CALL Which A office is calling? [facility] Full name of caller: Buddy The [...] EST Anticoagulation - [facility]farin [facility] [address] [address] 08/05/2024 11:00 AM EST Appointment [facility] 271 [facility] 2nd [place] [address] 08/08/2024 10:40 AM EST Office Visit [facility] - [facility] [place] [facility] 154 300 [facility] [place] [facility] 154 [place] [phone] Mikael Montoya NP 300 [place] [address] 09/12/2024 10:00 AM EDT Consult Orthopedic Surgery - [place] 250 175 [facility] 250 [place] [address] Leeroy Schneider, ANDREW 175 [facility] 250 [place] [address] 09/26/2024 11:30 AM EDT Office Visit Pulmonolgy - [place] 175 [facility] 200 [place] [address] Chelsea Shi NP 175 [facility] 200 [place] [address] 11/26/2024 11:00 AM EDT Appointment Radiology Department - [address] [address] documented as of this encounter Visit Diagnoses Not on filedocumented in this encounter Additional Health Concerns Infection Onset Date Last Indicated Resolved Time Respiratory Rule-Out 06/18/2024 06/18/2024 024 5:27 PM EST COVID-19 Rule-Out 06/18/2024 06/18/2024 06/18/2024 5:27 PM EST documented as of this encounter Care Teams Semiconductor Engineer Relationship Specialty Start Date End Date Elizabet Shannon MD [address] [address] PCP - General Internal Medicine 05/06/24 documented as of this encounter
--- OUTSIDE RECORDS SUMMARY | 2024-07-30 16:26 | XMS_ITS | Clinical Summary ---
Author Organization [facility] Address [address] [place] [address] [place] [address] Phone Care Team Providers Care Cooker Process Cheese Name Role Phone Amaya Lewis MD Primary Care Provider [phone] Allergies Active Allergy Reactions Criticality Noted Date Comments Digoxin Other (see comments) 08/05/2022 Pt an sson unsure of reaction Zi-Wjbgxdysa-Tegzjbjxcs nol Other (see comments) 08/05/2022 Lisinopril 11/15/2022 Simvastatin Other (see comments) 11/15/2022 Medications warfarin (COUMADIN) 2.5 MG tablet 09/28/19 23 Active Tiotropium [place] Monohydrate (Spiriva Respimat) 1.25 MCG/ACT aerosol solution [...] of kidney 12/07/2013 Overview (08/07/2023): CT 08/25/11 [place] - right renal parapelvic cyst and smaller [...] 09/30/2012 Overview (08/07/2023): Also on MRI 12/2014. 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 Followed by Dr. Chan at [facility]. History of polyp of colon 07/18/2012 Overview (08/07/2023): Colonoscopy Dr. Bob Breen 08/12/11 -small cecal polyp: tubular adenoma. Consider next exam 2016. Encounters Date Type Department Care Team Description 06/05/2024 Refill [facility] [address] [place] [address] Jose Hardy MD 06/03/2024 Orders Only [facility] [address] [place] [address] Jose Hardy MD Chronic kidney disease, stage 4 (severe) (HCC); Type 2 diabetes mellitus with diabetic chronic kidney disease (HCC); Renal osteodystrophy 05/21/2024 Orders Only [facility] [address] [place] [address] Jose Hardy MD Chronic kidney disease, stage 4 (severe) (HCC); Type 2 diabetes mellitus with diabetic chronic kidney disease (HCC); Renal osteodystrophy 05/20/2024 2:15 PM EST Office Visit [facility] [address] [place] [address] Jose Hardy MD Chronic kidney disease, stage 4 (severe) (HCC) (Primary Dx); Type 2 diabetes mellitus with diabetic chronic kidney disease (HCC); Renal osteodystrophy 05/09/2024 Refill [facility] [address] [place] [address] Jose Hardy MD from Last 3 Months [...] Visit [facility] [address] [place] [place] [address] Jose Hardy MD [address] [facility] 204 [place] [phone] Health Maintenance Due Date Last Done Comments [...] this topic Insurance [address] [place] [address] [facility] ([id number]) [facility] ([id number]) Care Teams Cooker Process Cheese Relationship Specialty Start Date End Date Amaya Lewis MD [address] [place] PCP - General Internal Medicine 05/20/24
--- OUTSIDE RECORDS SUMMARY | 2024-07-30 16:26 | XMS_ITS | Encounter Summary ---
Author Organization [facility] Address [address] [place] [address] Care Team Providers Care Exercise Instructor Name Role Phone Elizabet Shannon MD Primary Care Provider [phone] Reason for Visit * Reason Onset Date Comments Request For Order(s) 07/15/2024 Nuha VNA Cert 06/03/24-08/01/24 Plan Of Care Encounter Details Date Type Department Care Team ([facility] st Contact Info) Description 07/15/2024 Telephone Internal Medicine - [place] 175 [facility] [address] [place] [address] Janet Mcleod MA Request For [...] into chart and faxed to Nuha GUILLEN [phone] * Janet Mcleod MA - 07/15/2024 11:35 AM EST Nuha MINDY Cert 06/03/24-08/01/24 Plan Of Care Please sign & fax [phone] documented in this encounter Plan of Treatment Upcoming Encounters Date Type Department Care Team (Latest Contact Info) Description 07/31/2024 10:50 AM EST Anticoagulation - Warfarin Visit [facility] - [address] [address] 08/05/2024 11:00 AM EST Appointment [facility] 271 [facility] 2nd [place] [address] 08/08/2024 10:40 AM EST Office Visit [facility] - [facility] 154 300 [facility] 154 [place] [address] Mikael Montoya NP 300 [place] [address] 09/12/2024 10:00 AM EDT Consult Orthopedic Surgery - [place] 250 175 [facility] 250 [place] [phone] Leeroy Schneider DPM 175 [facility] 250 [place] [address] 09/26/2024 11:30 AM EDT Office Visit Pulmonolgy - [place] 175 [facility] 200 [place] [phone] Chelsea Shi NP 175 [facility] 200 [place] [address] 11/26/2024 11:00 AM EDT Appointment Radiology Department - [address] [address] documented as of this encounter Visit Diagnoses Not on filedocumented in this encounter Care Teams Exercise Instructor Relationship Specialty Start Date End Date Elizabet Shannon MD [address] [place] [address] PCP - General Internal Medicine 05/06/24 documented as of this encounter
--- OUTSIDE RECORDS SUMMARY | 2024-07-30 16:26 | XMS_ITS | Encounter Summary ---
Author Organization [facility] Address [address] [place] [address] Care Team Providers Care Brick Siding Applicator Name Role Phone Elizabet Shannon MD Primary Care Provider [phone] Encounter Details Date Type Department Care Team (Latest Contact Info) Description 07/16/2024 Anticoagulation - Warfarin Visit [facility] - [address] [address] Taya Camacho LPN Atrial fibrillation, 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 (CMS/HCC) (Primary Dx); ad terminal makeup operator (current) use of [...] Anticoagulation - Warfarin Visit [facility] - [place] [address] [place] [address] 08/05/2024 11:00 AM EST Appointment [facility] 271 [facility] 2nd [place] [address] 08/08/2024 10:40 AM EST Office Visit [facility] - [facility] 154 300 [facility] 154 [place] [address] Mikael Montoya NP 300 [place] [address] 09/12/2024 10:00 AM EDT Consult Orthopedic Surgery - [place] 250 175 [facility] 250 [place] [address] Leeroy Schneider DPM 175 [facility] 250 [place] [address] 09/26/2024 11:30 AM EDT Office Visit Pulmonolgy - [place] 175 [facility] 200 [place] [phone] Chelsea Sih NP 175 [facility] 200 [place] [address] 11/26/2024 11:00 AM EDT Appointment Radiology Department - [address] [address] documented as of this encounter Visit Diagnoses Diagnosis Atrial fibrillation, 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 (CMS/HCC)- Primary ad terminal makeup operator (current) use of anticoagulants Long-term (current) use of anticoagulants Encounter for screening mammogram for breast cancer documented in this encounter Care Teams Brick Siding Applicator Relationship Specialty Start Date End Date Elizabet Shannon MD [address] [facility] 200 [place] [address] PCP - General Internal Medicine 05/06/24 documented as of this encounter
--- OUTSIDE RECORDS SUMMARY | 2024-07-30 16:27 | XMS_ITS | Encounter Summary ---
Author Organization [facility] Address [address] [facility] 200 [place] [address] Phone Care Team Providers Care Applications Systems Analyst Name Role Phone Amaya Lewis MD Primary Care Provider [phone] Encounter Details Date Type Department Care Team (Late st Contact Info) Description 04/20/2023 Office Communication [facility] [address] [place] [place] [address] Jose Hardy MD [address] [address] Social History Tobacco Use Types [...] Visit [facility] [address] [place] [address] Jose Hardy MD 3071 [facility] 204 [place] [address] documented as of this encounter Visit Diagnoses Not on filedocumented in this encounter Care Teams Applications Systems Analyst Relationship Specialty Start Date End Date Amaya Lewis MD [address] [place], [place] PCP - General Internal Medicine 05/20/24 documented as of this encounter
--- OUTSIDE RECORDS SUMMARY | 2024-07-30 16:27 | XMS_ITS | Encounter Summary ---
Author Organization [facility] Address 100 [facility] 200 [place] [address] Phone Care Team Providers Care Party Plan Sales Director Name Role Phone Amaya Lewis MD Primary Care Provider [phone] Reason for Visit * Reason Comments Med Refill Encounter Details Date Type Department Care Team (Late Contact Info) Description 08/30/2023 Refill [facility] [address] [place] [address] Jose Hardy MD 0753 [facility] 204 [place] [address] Social History Tobacco Use Types [...] Office Visit [facility] [address] [place] [address] Jose Hardy MD 3551 [facility] 204 [place] [address] documented as of this encounter Visit Diagnoses Not on filedocumented in this encounter Care Teams Party Plan Sales Director Relationship Specialty Start Date End Date Amaya Lewis MD [address] [place] PCP - General Internal Medicine 05/20/24 documented as of this encounter
--- OUTSIDE RECORDS SUMMARY | 2024-07-30 16:27 | XMS_ITS | Encounter Summary ---
Author Organization [facility] Address [address] [place] [address] Care Team Providers Care Willow Machine Operator Name Role Phone Rishi Lion MD Primary Care Provi [facility] Encounter Details Date Type Department Care [...] Anticoagulation - Warfarin Visit [facility] [address] [address] 08/05/2024 11:00 AM EST Appointment [facility] 271 [facility] 2nd [place] [address] 08/08/2024 10:40 AM EST Office Visit [facility] - [facility] 154 300 [facility] 154 [place] [address] Mikael Montoya NP 300 [place] [address] 09/12/2024 10:00 AM EDT Consult Orthopedic Surgery - [place] 250 175 [facility] 250 [place] [address] Leeroy Schneider DPM 175 [facility] 250 [place] [address] 09/26/2024 11:30 AM EDT Office Visit Pulmonolgy - [place] [address] [place] [address] Chelsea Shi, ALAINA [address] [facility] 200 [place] [address] 11/26/2024 11:00 AM EDT Appointment Radiology Department - [address] [address] documented as of this encounter Visit Diagnoses Not on filedocumented in this encounter Additional Health Concerns Infection Onset Date Last Indicated Resolved Time Respiratory Rule-Out 06/18/2024 06/18/2024 024 5:27 PM EST COVID-19 Rule-Out 06/18/2024 06/18/2024 06/18/2024 5:27 PM EST documented as of this encounter Care Teams Willow Machine Operator Relationship Specialty Start Date End Date Rishi Lion MD [address] [place] [address] [place] [address] PCP - General 04/04/24 05/05/24 documented as of this encounter
--- OUTSIDE RECORDS SUMMARY | 2024-07-30 16:27 | XMS_ITS | Encounter Summary ---
Author Organization [facility] Address [address] [place] [address] Care Team Providers Care Major Sales Associate Name Role Phone Rishi Lion MD Primary Care Provi [facility] Encounter Details Date Type Department Care [...] Anticoagulation - Warfarin Visit [facility] [address] [address] 08/05/2024 11:00 AM EST Appointment [facility] 271 [facility] 2nd [place] [address] 08/08/2024 10:40 AM EST Office Visit [facility] - [facility] 154 300 [facility] 154 [place] [phone] Mikael Montoya NP 300 [place] [address] 09/12/2024 10:00 AM EDT Consult Orthopedic Surgery - [place] 250 175 [facility] 250 [place] [address] Leeroy Schneider DPM 175 [facility] 250 [place] [address] 09/26/2024 11:30 AM EDT Office Visit Pulmonolgy - [place] 175 [facility] 200 [place] [address] Chelsea Shi NP [address] [address] 11/26/2024 11:00 AM EDT Appointment Radiology Department [address] [address] documented as of this encounter Visit Diagnoses Not on filedocumented in this encounter Additional Health Concerns Infection Onset Date Last Indicated Resolved Time Respiratory Rule-Out 06/18/2024 06/18/2024 024 5:27 PM EST COVID-19 Rule-Out 06/18/2024 06/18/2024 06/18/2024 5:27 PM EST documented as of this encounter Care Teams Major Sales Associate Relationship Specialty Start Date End Date Rishi Lion MD [address] [place] [address] [place] [address] PCP - General 04/04/24 05/05/24 documented as of this encounter
--- OUTSIDE RECORDS SUMMARY | 2024-07-30 16:27 | XMS_ITS | Encounter Summary ---
Author Organization [facility] Address [address] [place] [address] Care Team Providers Care Inclusion Special Educator Name Role Phone Elizabet Shannon MD Primary Care Provider [phone] Encounter Details Date Type Department Care Team (Late st Contact Info) Description 05/09/2024 Lab Requisition [facility] - Main Lab 299 [facility] [place] [address] Mikael Montoya NP 300 [place] [address] Mixed hyperlipidemia; Peripheral vascular disease, unspecified (CMS/HCC); [...] AM EST Anticoagulation - Warfarin Visit Coumadin [address] [phone] 08/05/2024 11:00 AM EST Appointment [facility] 271 [facility] [address] 2nd [place] [address] 08/08/2024 10:40 AM EST Office Visit [facility] Associates - [address] 300 [facility] [address] [place] [address] Mikael Montoya NP 300 [place] [address] 09/12/2024 10:00 AM EDT Consult Orthopedic Surgery - [place] 250 175 [facility] [address] [place] [address] Leeroy Schneider DPM 175 [facility] 250 [place] [address] 09/26/2024 11:30 AM EDT Office Visit Pulmonolgy - [place] 175 [facility] [address] [place] [address] Chelsea Shi NP 175 [facility] 200 [place] [address] 11/26/2024 11:00 AM EDT Appointment Radiology Department - [address] [address] documented as of this encounter Procedures Procedure [...] Hold for add-ons. 05/09/2024 4:02 PM EST [facility] Comment:Auto resulted. Blood Venous blood specimen / Unknown 05/09/2024 12:00 PM EST 05/09/2024 2:34 PM EST Mikael Montoya NP LAB BLOOD ORDERABLES Performing Organization Address City/[facility]/ZIP Co de Phone Number [facility] 299 [place] [address], [place] [phone] * (ABNORMAL) B-type natriuretic peptide (05/09/2024 12:00 PM EST) [facility] BNP 134(H) <=100 pcg/mL LAB CHEMISTRY METHOD 05/09/2024 3:57 PM EST [facility] Blood Venous blood specimen / Unknown 05/09/2024 12:00 PM EST 05/09/2024 2:29 PM EST Mikael Montoya NP LAB BLOOD ORDERABLES [facility] 299 [place] [address], [place] [phone] * Lipid panel with reflex to direct LDL (05/09/2024 12:00 PM EST) Pathologist [facility] Cholesterol 133 0 - 200 mg/dL LAB CHEMISTRY METHOD 05/09/2024 4:50 PM [facility] Triglycerides 44 0 - 150 mg/dL LAB CHEMISTRY METHOD 05/09/2024 4:50 PM [facility] HDL 83 >=40 mg/dL LAB CHEMISTRY METHOD 05/09/2024 4:50 PM [facility] LDL Calculated 41 0 - 100 mg/dL LAB CHEMISTRY METHOD 05/09/2024 4:50 PM [facility] VLDL Cholesterol Trino 8.8 mg/dL LAB CHEMISTRY METHOD 05/09/2024 4:50 PM [facility] Non HDL Chol. (LDL+VLDL) 50 <145 mg/dL LAB CHEMISTRY METHOD 05/09/2024 4:50 PM [facility] Chol/HDL Ratio 1.6 0.0 - 4.4 LAB CHEMISTRY METHOD 05/09/2024 4:50 PM [facility] Blood Venous blood specimen / Unknown 05/09/2024 12:00 PM EST 05/09/2024 2:29 PM EST Mikael Montoya NP LAB BLOOD ORDERABLES [facility] 299 [place] [address], * (ABNORMAL) Basic metabolic panel (05/09/2024 12:00 PM EST) Sodium 141 133 - 145 mmol/L LAB CHEMISTRY METHOD 05/09/2024 4:47 PM [facility] Potassium 3.6 3.5 - 5.5 mmol/L LAB CHEMISTRY METHOD 05/09/2024 4:47 PM [facility] Chloride 105 96 - 110 mmol/L LAB CHEMISTRY METHOD 05/09/2024 4:47 PM [facility] CO2 32 21 - 32 mmol/L LAB CHEMISTRY METHOD 05/09/2024 4:47 PM [facility] Anion Gap 4 3 - 11 LAB CHEMISTRY METHOD 05/09/2024 4:47 PM [facility] Glucose 118(H) 70 - 100 mg/dL LAB CHEMISTRY METHOD 05/09/2024 4:47 PM [facility] BUN 34(H) 5 - 25 mg/dL LAB CHEMISTRY METHOD 05/09/2024 4:47 PM [facility] Creatinine 1.54(H) 0.50 - 1.10 mg/dL LAB CHEMISTRY METHOD 05/09/2024 4:47 PM [facility] eGFR 33(L) >=60 mL/min/1. 73m2 LAB CHEMISTRY METHOD 05/09/2024 4:47 PM [facility] Comment:Calculation based on the??Chronic Kidney Disease Epidemiology Collaboration (CKD-EPI) equation refit??without adjustment for race. BUN/Creatinine Ratio 22.1 LAB CHEMISTRY METHOD 05/09/2024 4:47 PM [facility] Calcium 8.9 8.5 - 10.5 mg/dL LAB CHEMISTRY METHOD 05/09/2024 4:47 PM [facility] Blood Venous blood specimen / Unknown 05/09/2024 12:00 PM EST 05/09/2024 2:29 PM EST Mikael Montoya NP LAB BLOOD ORDERABLES [facility] 299 [place] [address], documented in this encounter Visit Diagnoses Diagnosis [...] documented as of this encounter Care Teams Inclusion Special Educator Relationship Specialty Start Date End Date Elizabet Shannon MD [address] [place] [address] PCP - General Internal Medicine 05/06/24 documented as of this encounter
[2024-07-30 17:13] LABS: Urine Cytology See Pathology rpt
== END 2024-07-30 11:01 | disposition home or self-care (01) ==
LOC: HO.LNP 11:00
PROVIDERS: Visit Provider Nurse Practitioner Family
DX: R35.0 Frequency of micturition (principal); R35.1 Nocturia
CPT/HCPCS: 51798; 81003; 88112; 99202

== ENCOUNTER 2024-07-30 11:00 | Outpatient (AMB) | payer OTHER, SELFPAY ==
--- NOTE | 2024-07-30 11:09 | MHC.OFFVIS ---
Intake Visit Reasons: nocturia Intake Note: New Patient presents for initial visit for nocturia Urology Medications: none Blood Thinner: warfarin PVR: 14ml's Dam Tender Required: Yes Accompanied by: Son Allergies lisinopril [LISINOPRIL] Allergy (Unknown, Verified 07/30/24 13:33) UNKNOWN simvastatin [SIMVASTATIN] Allergy (Unknown, Verified 07/30/24 13:33) UNKNOWN Medication List - Last Reconciled 07/30/24 by Xochitl Haq [facility]- albuterol sulfate 2.5 mg inhalation Q4H PRN cholecalciferol (vitamin D3) (Vitamin D3) 50 mcg PO DAILY cyanocobalamin (vitamin B-12) 1,000 mcg PO DAILY diltiazem HCl CD 240 mg PO DAILY ferrous sulfate (FeroSul) 325 mg PO DAILY nfeymqgpczz-xfijnyqkx-nunqxnra 100-62.5-25 mcg (Trelegy Ellipta) 1 puff inhalation DAILY furosemide 40 mg PO BID levothyroxine 75 mcg PO DAILY loratadine 10 mg PO DAILY montelukast 1 tab PO DAILY omeprazole 20 mg PO DAILY@0630 warfarin 2.5 mg PO DAILY HPI Comments Details: Adriana is a very pleasant 84-year-old Romanian-speaking female patient of Dr. Shannon who was accompanied by her son Brandon at today's office visit. She has a past medical history of tricuspid valve regurgitation, pulmonary hypertension, idiopathic hypotension, lymphedema, CHF, hypothyroidism, AFib, asthma, and hypertension. She presents to the office today as a new patient for nocturia. In discussion with the patient today she denies any bothersome urinary issues or concerns. She reports being unsure as to who referred her to this appointment. In review of patient's chart it appears patient's rail detector car operator Dr. Hardy referred patient for nocturia. When asked she does report episodes of nocturia 2-3 times per night and at times finds this to be bothersome as it is difficult for her to fall back asleep. She also does report urinary frequency however directly relates this to her diuretic. When asked she does report a previous history of sleep apnea however does not have a sleep apnea machine. We discussed correlation of sleep apnea with nocturia. She otherwise denies incontinence, hematuria, dysuria, foul smelling urine, changes to urinary stream, flank pain, fever, and or chills. We discussed at length further treatment options and risks and benefits of these treatment options. Patient discusses and continues to discuss feeling lower urinary tract symptoms are not bothersome. We discussed obtaining retroperitoneal ultrasound for further assessment evaluation she is agreeable. In office urinalysis results reviewed with the patient today. PVR 14ml's. [facility] Medical History Tricuspid valve regurgitation Pulmonary hypertension Acute on chronic right heart failure Idiopathic hypotension Sepsis Cellulitis of right leg Lymphedema Non-healing wound of right lower extremity Venous stasis dermatitis of right lower extremity CHF (congestive heart failure) Hypothyroid Afib Asthma HTN (hypertension) Surgical History S/P hip replacement Family History Mother Gastric cancer Social History Household Members: None Housing: Apartment Do you presently have visiting nurse or other home services: Yes (nursing 2-3 times weekly) Alcohol intake: never Comment: sleeping in recliner Patient Tobacco Use Status: Never used Tobacco Second Hand Smoke Exposure: No Advance Directives Date on File: 02/05/21 service: No Current occupational status: disabled Review of Systems Const Reports no additional complaints Eyes Reports no additional complaints ENT Reports no additional complaints Card Reports as per HPI Resp Reports as per HPI GI Reports as per HPI Reports as per HPI Musc Reports as per HPI Neuro Reports as per HPI Psych Reports no additional complaints Endo Reports as per HPI Tee/Lymph Reports as per HPI Aller/Immun Reports no additional complaints Physical Exam Const General: cooperative, comfortable, no acute distress, well developed, alert and awake Orientation/consciousness: patient oriented x3 Limitations: wheelchair HEENT Head: Yes normal to inspection, Yes normocephalic and Yes atraumatic Ears: hearing grossly normal bilaterally Eyes General: appearance normal, both eyes and all related structures Neck Neck: Yes normal visual inspection and Yes trachea midline Chest Chest palpation & inspection: normal inspection of the chest Resp Effort & Inspection: normal respiratory effort and able to speak in complete sentences Cardio Rate: regular rate GI Inspection: Yes normal to inspection General: Yes no CVA tenderness Back/Spine/Pelvis Back: no CVA tenderness Skin General skin exam: no rashes or lesions noted Neuro General: patient oriented x3 Extrem General: Yes normal to inspection Psych Appearance: grossly normal and well kempt Mental Status: mental status grossly normal Speech and movement: Normal speech and movement present and Clear speech present Affect: normal affect Attitude: cooperative Thought process: Normal thought process present Thought content: Normal thought content present Insight: Fair insight present (Psych) Judgement: Fair judgement present (Psych) Office Procedures Post Void Residual Post Residual Void Post Void Residual (PVR): 14 95050-[id number] Void Residual by ultrasound Results AMB Urinalysis, Automated UA Leukoctes 0 Evelia/uL Last Edit by [facility] on 07/30/24 13:29 UA Nitrite Last Edit by [facility] on 07/30/24 13:29 UA Urobilinogen 0.2 mg/dL Last Edit by [facility] on 07/30/24 13:29 UA Protein 0 mg/dL Last Edit by [facility] on 07/30/24 13:29 UA pH 6.0 Last Edit by [facility] on 07/30/24 13:29 UA Blood 25 Selvin/uL Last Edit by [facility] on 07/30/24 13:29 UA Specific Cam[place] 1.010 Last Edit by [facility] on 07/30/24 13:29 UA Ketone Negative Last Edit by [facility] on 07/30/24 13:29 UA Bilirubin 0 mg/dL Last Edit by [facility] on 07/30/24 13:29 UA Glucose 0 mg/dL Last Edit by [facility] on 07/30/24 13:29 Assessment & Plan Assessment & Plan (1) Nocturia: Code(s): R35.1 - Nocturia Category: Medical Plan In office urinalysis results reviewed with the patient today; as noted above. PVR 14 mL. We discussed at length potential causes of lower urinary tract symptoms patient was experiencing as well as further treatment options and risks and benefits of these treatment options. Although patient reports urinary frequency and nocturia she does not feel this is bothersome. We discussed correlation of sleep apnea and nocturia. We discussed bladder triggers/irritants. Will obtain sleep study for further assessment evaluation as patient is unsure as to exact diagnosis and or what provider she had testing with. Will obtain retroperitoneal ultrasound for further assessment evaluation. Follow-up in 3 months with imaging to be completed prior; or sooner with any issues, concerns, and or questions. Orders: Orders US retroperitoneal comp Today R35.0 - Frequency of micturition, R35.1 - Nocturia AMB Urinalysis Automated Today Z13.9 - Encounter for screening, unspecified AMB Post Void Residual by ultrasound Today R35.0 - Frequency of micturition RT home sleep study Today R35.1 - Nocturia Patient Instructions: The patient had an opportunity to ask questions regarding the treatment plan. All questions were answered. Physical exam, labs, and imaging were discussed and reviewed in detail. As well as risks, benefits, and discussion of treatment choices. No major barriers to understanding were identified. The patient expressed understanding and agreement with the above treatment plan. The patient was made aware they should contact our office by phone for worsening of their current condition, the appearance of new symptoms, or with any questions or concerns. Compliance is encouraged with any medications and follow up testing that is ordered. It is a privilege to be allowed the opportunity to participate in? your urological care.? Again, if you have any questions or concerns If you have any questions or concerns please do not hesitate to contact me. The office is [phone]. This note is constructed using voice recognition software. While every effort has been made to ensure accuracy actionscript developer errors may have been included. Yours sincerely, ALEX Holder Coding Level of Care Code New Pt Level 3 (14728) Diagnoses Nocturia R35.1 CPT Codes Post Residual Void - PVR CPT Code: 35493-Glrn Void Residual by ultrasound ([id number])
--- OUTSIDE RECORDS SUMMARY | 2024-07-30 11:56 | XMS_ITS | Encounter Summary ---
Author Organization [facility] Address [address] [place] [address] Care Team Providers Care Supervisor Hydrochloric Area Name Role Phone Elizabet Shannon MD Primary Care Provider [phone] Encounter Details Date Type Department Care Team (Late st Contact Info) Description 06/27/2024 Lab Requisition [facility] - Main Lab [address] [facility] [place] [address] Bruce Petersen MD [facility] [address] [place], [place] [phone] Hypothyroidism, unspecified; Acute kidney failure, unspecified (CMS/HCC); Heart failure, unspecified (CMS/HCC); Essential (primary) hypertension; Unspecified atrial fibrillation (CMS/HCC) Social History Tobacco Use Types Packs/Day Years Used Date Smoking Tobacco: Never Smokeless Tobacco: Never Alcohol Use Standard Drinks/Week Comments Never 0 (1 standard drink = 0.6 oz pur e alcohol) Interpersonal Safety Answer Date Record ed Physical Abuse 06/18/2024 Verbal Abuse 06/18/2024 Sex and Gender Information Value Date Recorded Sex Assigned at Not on file Gender Identity Not on file Sexual Orientation Not on file Job Start Date Occupation Industry Not on file Not on file Not on file documented as of this encounter Plan of Treatment Upcoming Encounters Date Type Department Care Team (Latest Contact Info) Description 07/31/2024 10:50 AM EST Anticoagulation - Warfarin Visit [facility] - [address] [address] 08/05/2024 11:00 AM EST Appointment [facility] [address] [facility] 2nd [place] [phone] 08/08/2024 10:40 AM EST Office Visit [facility] [address] [facility] 154 [place] [phone] Mikael Montoya, ALAINA 300 [place] [address] 09/12/2024 10:00 AM EDT Consult Orthopedic Surgery - [place] [address] 175 [facility] 250 [place] [phone] Leeroy Schneider DPM [address] [address] 09/26/2024 11:30 AM EDT Office Visit Pulmonolgy - [place] 175 [facility] 200 [place] [phone] Chelsea Shi NP 175 [facility] 200 [place] [address] 11/26/2024 11:00 AM EDT Appointment Radiology Department - [address] [address] documented as of this encounter Procedures Procedure Name Priority Date/Time Associated Diagnosis Comments PROTHROMBIN TIME WITH INR Routine 06/27/2024 8:37 AM EST Hypothyroidism, unspecified Acute kidney failure, unspecified (CMS/HCC) Heart failure, unspecified (CMS/HCC) Essential (primary) hypertension Unspecified atrial fibrillation (CMS/HCC) COMPLETE BLOOD COUNT Routine 06/27/2024 8:37 AM EST Hypothyroidism, unspecified Acute kidney failure, unspecified (CMS/HCC) Heart failure, unspecified (CMS/HCC) Essential (primary) hypertension Unspecified atrial fibrillation (CMS/HCC) THYROID STIMULATING HORMONE Routine 06/27/2024 8:37 AM EST Hypothyroidism, unspecified Acute kidney failure, unspecified (CMS/HCC) Heart failure, unspecified (CMS/HCC) Essential (primary) hypertension Unspecified atrial fibrillation (CMS/HCC) COMPREHENSIVE METABOLIC PANEL Routine 06/27/2024 8:37 AM EST Hypothyroidism, unspecified Acute kidney failure, unspecified (CMS/HCC) Heart failure, unspecified (CMS/HCC) Essential (primary) hypertension Unspecified atrial fibrillation (CMS/HCC) documented in this encounter Results * Thyroid stimulating hormone (06/27/2024 8:37 AM EST) Pathologist [facility] TSH 2.33 0.40 - 4.00 mcIU/mL LAB CHEMISTRY METHOD 06/27/2024 11:32 AM EST [facility] Blood Venous blood specimen / Unknown Venipuncture / Unknown 06/27/2024 8:37 AM EST 06/27/2024 10:21 AM EST Bruce Petersen MD LAB BLOOD ORDERABLES [facility] [address] [place] [address], * (ABNORMAL) Comprehensive metabolic panel (06/27/2024 8:37 AM EST) [facility] Sodium 143 133 - 145 mmol/L LAB CHEMISTRY METHOD 06/27/2024 11:25 AM EST [facility] Potassium 4.3 3.5 - 5.5 mmol/L LAB CHEMISTRY METHOD 06/27/2024 11:25 AM EST [facility] Chloride 103 96 - 110 mmol/L LAB CHEMISTRY METHOD 06/27/2024 11:25 AM EST [facility] CO2 38(H) 21 - 32 mmol/L LAB CHEMISTRY METHOD 06/27/2024 11:25 AM EST [facility] Anion Gap 2(L) 3 - 11 LAB CHEMISTRY METHOD 06/27/2024 11:25 AM [facility] Glucose 81 70 - 100 mg/dL LAB CHEMISTRY METHOD 06/27/2024 11:25 AM [facility] BUN 47(H) 5 - 25 mg/dL LAB CHEMISTRY METHOD 06/27/2024 11:25 AM [facility] Creatinine 1.94(H) 0.50 - 1.10 mg/dL LAB CHEMISTRY METHOD 06/27/2024 11:25 AM [facility] eGFR 25(L) >=60 mL/min/1. 73m2 LAB CHEMISTRY METHOD 06/27/2024 11:25 AM [facility] Comment:Calculation based on the??Chronic Kidney Disease Epidemiology Collaboration (CKD-EPI) equation refit??without adjustment for race. BUN/Creatinine Ratio 24.2 LAB CHEMISTRY METHOD 06/27/2024 11:25 AM [facility] Calcium 8.7 8.5 - 10.5 mg/dL LAB CHEMISTRY METHOD 06/27/2024 11:25 AM [facility] AST (SGOT) 28 10 - 42 unit/L LAB CHEMISTRY METHOD 06/27/2024 11:25 AM [facility] ALT (SGPT) 14 10 - 60 unit/L LAB CHEMISTRY METHOD 06/27/2024 11:25 AM [facility] Alkaline Phosphatase 107 42 - 121 unit/L LAB CHEMISTRY METHOD 06/27/2024 11:25 AM [facility] Total Protein 8.1(H) 6.0 - 8.0 g/dL LAB CHEMISTRY METHOD 06/27/2024 11:25 AM [facility] Albumin 2.7(L) 3.2 - 5.0 g/dL LAB CHEMISTRY METHOD 06/27/2024 11:25 AM [facility] Total Bilirubin 0.5 0.0 - 1.4 mg/dL LAB CHEMISTRY METHOD 06/27/2024 11:25 AM EST [facility] Blood Venous blood specimen / Unknown Venipuncture / Unknown 06/27/2024 8:37 AM EST 06/27/2024 10:21 AM EST Bruce Petersen MD LAB BLOOD ORDERABLES Performing Organization Address [facility]/ZIP Co de Phone Number [facility] [address] [place] [address], * (ABNORMAL) Prothrombin time with INR (06/27/2024 8:37 AM EST) Pathologist [facility] Protime 19.3(H) 10.6 - 13.9 sec LAB COAGULATION METHOD 06/27/2024 10:45 AM EST [facility] INR 1.5 LAB COAGULATION METHOD 06/27/2024 10:45 AM [facility] Blood Venous blood specimen / Unknown Venipuncture / Unknown 06/27/2024 8:37 AM EST 06/27/2024 10:21 AM EST Bruce Petersen MD LAB BLOOD ORDERABLES Performing Organization Address City/[facility]/ZIP Co de Phone Number [facility] [address] [place] [address], * (ABNORMAL) Complete blood count (06/27/2024 8:37 AM EST) [facility] WBC 5.0 4.8 - 10.8 K/mcL LAB HEMETOLOGY METHOD 06/27/2024 10:58 AM EST [facility] RBC 3.90 3.80 - 4.80 M/mcL LAB HEMETOLOGY METHOD 06/27/2024 10:58 AM [facility] Hemoglobin 11.5 11.5 - 16.0 g/dL LAB HEMETOLOGY METHOD 06/27/2024 10:58 AM EST [facility] Hematocrit 38.6 35.0 - 47.0 % LAB HEMETOLOGY METHOD 06/27/2024 10:58 AM [facility] MCV 99.2(H) 79.0 - 98.0 FL LAB HEMETOLOGY METHOD 06/27/2024 10:58 AM [facility] MCH 29.6 27.0 - 32.0 pcg LAB HEMETOLOGY METHOD 06/27/2024 10:58 AM [facility] MCHC 29.8(L) 32.0 - 37.0 g/dL LAB HEMETOLOGY METHOD 06/27/2024 10:58 AM [facility] RDW 13.6 11.0 - 15.0 % LAB HEMETOLOGY METHOD 06/27/2024 10:58 AM [facility] Platelets 226 130 - 400 K/mcL LAB HEMETOLOGY METHOD 06/27/2024 10:58 AM [facility] MPV 10.7 7.0 - 11.0 FL LAB HEMETOLOGY METHOD 06/27/2024 10:58 AM [facility] NRBC 0.0 <1.0 % LAB HEMETOLOGY METHOD 06/27/2024 10:58 AM [facility] NRBC Absolute 0.00 <0.10 K/mcL LAB HEMETOLOGY METHOD 06/27/2024 10:58 AM [facility] Blood Venous blood specimen / Unknown Venipuncture / Unknown 06/27/2024 8:37 AM EST 06/27/2024 10:21 AM EST Bruce Petersen MD LAB BLOOD ORDERABLES [facility] [address] [place] [address], documented in this encounter Visit Diagnoses Diagnosis Hypothyroidism, unspecified Acute kidney failure, unspecified (CMS/HCC) Acute kidney failure, unspecified Heart failure, unspecified (CMS/HCC) Heart failure, unspecified Essential (primary) hypertension Unspecified essential hypertension Unspecified atrial fibrillation ([facility]/HCC) Encounter for screening mammogram for breast cancer documented in this encounter Care Teams Supervisor Hydrochloric Area Relationship Specialty Start Date End Date Elizabet Shannon MD [address] [place] [address] PCP - General Internal Medicine 05/06/24 documented as of this encounter
--- OUTSIDE RECORDS SUMMARY | 2024-07-30 11:56 | XMS_ITS | Encounter Summary ---
Author Organization [facility] Address [address] [place] [address] Care Team Providers Care Button Sewer Hand Name Role Phone Elizabet Shannon MD Primary Care Provider [phone] Reason for Visit * Reason Onset Date Comments ECHOCARDIOGRAM 07/22/2024 Encounter Details Date Type Department Care Team ([facility] st Contact Info) Description 07/22/2024 Telephone [facility] - [facility] [address] [facility] 154 [place] [address] Mikael Montoya NP [address] [place], [place] [phone] ECHOCARDIOGRAM Social History Tobacco Use Types Packs/Day Years [...] on file documented as of this encounter Progress Notes * Tara Mullen - 07/22/2024 1:11 PM EST Echo on 07/24/24 has been cancelled, patient notified. * Campos Lowe - 07/22/2024 11:44 AM EST Per Mikael Montoya NP, please cancel upcoming echo. Thank you. * Mikael Montoya NP - 07/22/2024 10:23 AM EST We can cancel the echo scheduled for 07/24/2024. * Campos Lowe - 07/22/2024 9:18 AM EST Patient is scheduled for an upcoming echo at [facility] on 07/24/24. Patient recently had an echo done on 06/20/24. Would you like to keep upcoming echo? documented in this encounter Plan of Treatment Upcoming Encounters Date Type Department Care Team (Latest Contact Info) Description 07/31/2024 10:50 AM EST Anticoagulation - Warfarin Visit [facility] [address] [address] 08/05/2024 11:00 AM EST Appointment [facility] [address] [facility] 2nd [place] [address] 08/08/2024 10:40 AM EST Office Visit [facility] - [facility] [address] [facility] 154 [place] [address] Mikael Montoya NP 300 [place] [address] 09/12/2024 10:00 AM EDT Consult Orthopedic Surgery - [place] 250 175 [facility] 250 [place] [phone] Leeroy Schneider DPM [address] [address] 09/26/2024 11:30 AM EDT Office Visit Pulmonolgy - [place] 175 [facility] 200 [place] [address] Chelsea Shi, ALAINA 175 [facility] 200 [place] [address] 11/26/2024 11:00 AM EDT Appointment Radiology Department - [address] [address] documented as of this encounter Visit Diagnoses Not on filedocumented in this encounter Care Teams Button Sewer Hand Relationship Specialty Start Date End Date Elizabet Shannon MD 175 [facility] 200 [place] [address] PCP - General Internal Medicine 05/06/24 documented as of this encounter
--- OUTSIDE RECORDS SUMMARY | 2024-07-30 11:56 | XMS_ITS | Encounter Summary ---
Author Organization [facility] Address [address] [place] [address] Care Team Providers Care Rice Cleaning Machine Tender Name Role Phone Elizabet Shannon MD Primary Care Provider [phone] Encounter Details Date Type Department Care Team (Latest Contact Info) Description 07/23/2024 11:00 AM EST Anticoagulation - Warfarin Visit Coumadin [address] [phone] Atrial fibrillation, 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 (CMS/HCC) (Primary Dx); correction (current) use of anticoagulants Social History Tobacco Use Types Packs/Day Years [...] Anticoagulation - Warfarin Visit Coumadin Clinic - [address] [address] 08/05/2024 11:00 AM EST Appointment [facility] Infusion Center [address] [address] 08/08/2024 10:40 AM EST Office Visit [facility] - [facility] 154 300 [facility] 154 [place] [phone] Mikael Montoya NP 300 [place] [address] 09/12/2024 10:00 AM EDT Consult Orthopedic Surgery - [place] 250 175 [facility] 250 [place] [phone] Leeroy Schneider DPM 175 [facility] 250 [place] [address] 09/26/2024 11:30 AM EDT Office Visit Pulmonolgy - [place] 175 [facility] 200 [place] [phone] Chelsea Shi NP 175 [facility] 200 [place] [address] 11/26/2024 11:00 AM EDT Appointment Radiology Department - [address] [address] documented as of this encounter Visit Diagnoses Diagnosis Atrial fibrillation, 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 (CMS/HCC)- Primary investment director (current) use of anticoagulants Long-term (current) use of anticoagulants Encounter for screening mammogram for breast cancer documented in this encounter Care Teams Rice Cleaning Machine Tender Relationship Specialty Start Date End Date Elizabet Shannon MD 175 [facility] 200 [place] [address] PCP - General Internal Medicine 05/06/24 documented as of this encounter
--- OUTSIDE RECORDS SUMMARY | 2024-07-30 11:56 | XMS_ITS | Encounter Summary ---
Author Organization [facility] Address [address] [place] [address] Care Team Providers Care Patient Financial Representative Name Role Phone Elizabet Shannon MD Primary Care Provider [phone] Encounter Details Date Type Department Care Team (Late st Contact Info) Description 06/28/2024 Lab Requisition [facility] - Main Lab 299 [facility] [place] [phone] Ricardo Rhodes MD [address] [place] [address] Unspecified atrial fibrillation (CMS/HCC); Other thrombophilia (CMS/HCC) Social History Tobacco Use Types Packs/Day [...] AM EST Anticoagulation - Warfarin Visit Coumadin [address] [address] 08/05/2024 11:00 AM EST Appointment [facility] Infusion Center [address] [place] [address] 08/08/2024 10:40 AM EST Office Visit [facility] - [facility] [address] 300 [facility] [address] [place] [phone] Mikael Montoya NP 300 [place] [address] 09/12/2024 10:00 AM EDT Consult Orthopedic Surgery - [place] 250 175 [facility] 250 [place] [phone] Leeroy Schneider DPM 175 [facility] 250 [place] [address] 09/26/2024 11:30 AM EDT Office Visit Pulmonolgy - [place] 175 [facility] [address] [place] [phone] Chelsea Shi NP 175 [facility] 200 [place] [address] 11/26/2024 11:00 AM EDT Appointment Radiology Department - [address] [address] documented as of this encounter Procedures Procedure Name Priority Date/Time Associated Diagnosis Comments PROTHROMBIN TIME WITH INR Routine 07/01/2024 7:21 AM EST Unspecified atrial fibrillation (CMS/HCC) Other thrombophilia (CMS/HCC) documented in this encounter Results * (ABNORMAL) Prothrombin time with INR (07/01/2024 7:21 AM EST) Protime 18.5(H) 10.6 - 13.9 sec LAB COAGULATION METHOD 07/01/2024 11:35 AM EST [facility] LAB INR 1.5 LAB COAGULATION METHOD 07/01/2024 11:35 AM EST [facility] LAB Blood Venous blood specimen / Unknown Venipuncture / Unknown 07/01/2024 7:21 AM EST 07/01/2024 11:03 AM EST Ricardo Rhodes MD LAB BLOOD ORDERABLES [facility] LAB 299 [place], [place] [address] [phone] documented in this encounter Visit Diagnoses Diagnosis Unspecified atrial fibrillation (CMS/HCC) Other thrombophilia (CMS/HCC) Encounter for screening mammogram for breast cancer documented in this encounter Care Teams Patient Financial Representative Relationship Specialty Start Date End Date Elizabet Shannon MD [address] [place] [address] PCP - General Internal Medicine 05/06/24 documented as of this encounter
--- OUTSIDE RECORDS SUMMARY | 2024-07-30 11:56 | XMS_ITS | Encounter Summary ---
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 [address] 300 [facility] 154 [place] [phone] Mikael Montoya NP 300 [place] [address] 09/12/2024 10:00 AM EDT Consult Orthopedic Surgery - [place] 250 175 [facility] 250 [place] [phone] Leeroy Schneider DPM 175 [facility] 250 [place] [address] 09/26/2024 11:30 AM EDT Office Visit Pulmonolgy - [place] 175 [facility] 200 [place] [phone] Cehlsea Shi NP 175 [facility] 200 [place] [address] 11/26/2024 11:00 AM EDT Appointment Radiology Department [address] [address] documented as of this encounter Procedures Procedure Name Priority Date/Time Associated Diagnosis Comments POC PROTIME INR BLOOD Routine 06/18/2024 12:39 PM EST Atrial fibrillation, 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 (CMS/HCC) skilled nursing (current) use of anticoagulants documented in this encounter Results * POC Protime INR Blood (06/18/2024 12:39 PM EST) Lot Number INR POC 4.8 Prothrombin Time POC Exp Date Blood 06/18/2024 12:3 9 PM EST Dana Bull MD POINT OF CARE TEST E NTER/EDIT ORDERABLES documented in this encounter Visit Diagnoses Diagnosis Atrial fibrillation, 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 (CMS/HCC)- Primary skilled nursing (current) use of anticoagulants Long-term (current) use of anticoagulants Encounter for screening mammogram for breast cancer documented in this encounter Additional Health Concerns Infection Onset Date Last Indicated Resolved Time Respiratory Rule-Out 06/18/2024 06/18/2024 024 5:27 PM EST COVID-19 Rule-Out 06/18/2024 06/18/2024 06/18/2024 5:27 PM EST documented as of this encounter Care Teams Social Worker Delinquency Prevention Relationship Specialty Start Date End Date Elizabet Shannon MD [address] [place] [address] PCP - General Internal Medicine 05/06/24 documented as of this encounter
--- OUTSIDE RECORDS SUMMARY | 2024-07-30 11:57 | XMS_ITS | Encounter Summary ---
Author Organization [facility] Address [address] [facility] 200 [place] [address] Phone Care Team Providers Care Press Manager Name Role Phone Amaya Lewis MD Primary Care Provider Encounter Details Date Type Department Care Team (Late st Contact Info) Description 04/20/2023 Office Communication [facility] [address] [place] [address] Jose Hardy MD [address] [address] Social History Tobacco Use Types Packs/Day Years Used Date Smoking Tobacco: Never Alcohol Use Standard Drinks/Week Comments No 0 (1 standard drink = 0.6 oz pur e alcohol) Comments Unknown Sex and Gender Information Value Date Recorded Sex Assigned at Not on file Legal Sex Female 5:12 PM EST Gender Identity Not on file Sexual Orientation Not on file documented as of this encounter Miscellaneous Notes * Telephone Encounter - Jose Hardy MD - 04/20/2023 8:34 AM EDT I sent newRX for 80mg--pls tell PT documented in this encounter Plan of Treatment Upcoming Encounters Date Type Department Care Team (Late st Contact Info) Description 11/21/2024 2:30 PM EDT Office Visit [facility] [address] [place] [address] Jose Hardy MD 7[address] [facility] 204 [place] [address] documented as of this encounter Visit Diagnoses Not on filedocumented in this encounter Care Teams Press Manager Relationship Specialty Start Date End Date Amaya Lewis MD [address] [place], [place] PCP - General Internal Medicine 05/20/24 documented as of this encounter
--- OUTSIDE RECORDS SUMMARY | 2024-07-30 11:57 | XMS_ITS | Encounter Summary ---
Author Organization [facility] Address [address] [place] [address] Care Team Providers Care Turf Farm Worker Name Role Phone Elizabet Shannon MD Primary Care Provider [phone] Encounter Details Date Type Department Care Team (Latest Contact Info) Description 07/05/2024 Lab Requisition [facility] - Main Lab 299 [facility] [place] [address] Bruce Petersen MD [facility] [address] [place], [place] [id number] Unspecified atrial fibrillation (CMS/HCC); Other thrombophilia (CMS/HCC) [...] AM EST Anticoagulation - Warfarin Visit Coumadin [address] [phone] 08/05/2024 11:[address] [facility] Infusion Center 271 [facility] 2nd [place] [address] 08/08/2024 10:40 AM EST Office Visit [facility] Associates - [facility] [address] 300 [facility] 154 [place] [phone] Mikael Montoya, ALAINA 300 [place] [address] 09/12/2024 10:00 AM EDT Consult Orthopedic Surgery - [place] 250 175 [facility] 250 [place] [phone] Leeroy Schneider DPM 175 [facility] 250 [place] [address] 09/26/2024 11:30 AM EDT Office Visit Pulmonolgy - [place] 175 [facility] 200 [place] [phone] Chelsea Shi NP 175 [facility] 200 [place] [address] 11/26/2024 11:00 AM EDT Appointment Radiology Department - [address] [phone] documented as of this encounter Visit Diagnoses Diagnosis Unspecified atrial fibrillation (CMS/HCC) Other thrombophilia (CMS/HCC) Encounter for screening mammogram for breast cancer documented in this encounter Care Teams Turf Farm Worker Relationship Specialty Start Date End Date Elizabet Shannon MD 175 [facility] 200 [place] [address] PCP - General Internal Medicine 05/06/24 documented as of this encounter
--- OUTSIDE RECORDS SUMMARY | 2024-07-30 11:57 | XMS_ITS | Encounter Summary ---
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 Social History Tobacco [...] EST Anticoagulation - Warfarin Visit Coumadin Clinic [address] [address] 08/05/2024 11:00 AM EST Appointment [facility] Infusion Center [address] [place] [address] 08/08/2024 10:40 AM EST Office Visit [facility] - [facility] 154 300 [facility] 154 [place] [phone] Mikael Montoya NP 300 [place] [address] 09/12/2024 10:00 AM EDT Consult Orthopedic Surgery - [place] 250 175 [facility] 250 [place] [phone] Leeroy Schneider DPM 175 [facility] 250 [place] [address] 09/26/2024 11:30 AM EDT Office Visit Pulmonolgy - [place] 175 [facility] 200 [place] [address] Chelsea Shi NP 175 [facility] 200 [place] [address] 11/26/2024 11:00 AM EDT Appointment Radiology Department - [address] [address] documented as of this encounter Visit Diagnoses Diagnosis Atrial fibrillation, 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 (CMS/HCC)- Primary terminal operator (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
--- OUTSIDE RECORDS SUMMARY | 2024-07-30 11:57 | XMS_ITS | Encounter Summary ---
Author Organization [facility] Address [address] [place] [address] Care Team Providers Care Software Project Engineer Name Role Phone Elizabet Shannon MD Primary Care Provider [phone] Reason for Visit * Reason Comments Transitional Care Management [facility]- 4 through 07/04/2024 notes scanned Encounter Details Date Type Department Care Team (Late st Contact Info) Description 07/11/2024 1:20 PM EST Office Visit Pulmonolgy - [place] [address] [place] [phone] Chelsea Shi NP 175 [facility] [address] [place] [address] Severe persistent asthma with exacerbation (CMS/HCC) (Primary Dx); EMERY (obstructive sleep apnea); Acute on chronic diastolic heart failure (CMS/HCC); Chronic atrial fibrillation (CMS/HCC) Social History Tobacco Use Types Packs/Day Years Used Date Smoking Tobacco: Never Smokeless Tobacco: Never Tobacco Cessation:Counseling Given: Not Answered Alcohol Use Standard Drinks/Week Comments Never 0 [...] on file documented as of this encounter Last Filed Vital Signs Vital Sign Reading Time Taken Comments Blood Pressure 97/54 07/11/2024 1:31 PM EST Pulse 76 07/11/2024 1:31 PM EST Temperature 36.2 ??C (97.1 ??F) 07/11/2024 1:31 PM ES T Respiratory Rate 18 07/11/2024 1:31 PM EST Oxygen Saturation 97% 07/11/2024 1:31 PM EST Inhaled Oxygen Concentration - - Weight - - Height - - Body Mass Index - - documented in this encounter Ordered Prescriptions Prescription Sig Dispensed Refills Start Date End Da te albuterol HFA (Ventolin HFA) 90 mcg/actuation inhalerIndications:Bri re persistent asthma with exacerbation (CMS/HCC) Inhale 2 puffs by mouth every 4 (four) hours if needed for wheezing or shortness of breath. 8 g 5 07/11/2024 01/07/2025 albuterol 2.5 mg /3 mL (0.083 %) nebulizer solutionIndications:Sev ere persistent asthma with exacerbation (CMS/HCC) Take 3 mL (2.5 mg total) by nebulization every 4 (four) hours if needed for wheezing. 75 mL 3 07/11/2024 07/11/2025 predniSONE (DELTASONE) 10 mg tabletIndications:Sever e persistent asthma with exacerbation (CMS/HCC) Take 3 tablets (30 mg total) by mouth 1 (one) time each day for 3 days, THEN 2 tablets (20 mg total) 1 (one) time each day for 3 days, THEN 1 tablet (10 mg total) 1 (one) time each day for 3 days. 18 each 07/11/2024 07/16/2024 documented in this encounter Progress Notes * Rosa Rojas MA - 07/11/2024 1:20 PM EST Appointment scheduled with PCP on July 16, 2024 at 1 pm patient son informed * Chelsea Shi NP - 07/11/2024 1:20 PM EST ADULT PULMONARY FOLLOW UP VISIT PCP MD: Elizabet Shannon MD REASON FOR VISIT: Transitional Care Management ([facility]-06/18/24 through 07/04/2024 notes scanned) FIRST PULMONARY CLINIC VISIT: 10/06/2016. Please refer to her note for more details. IDENTIFIER: Adriana Roldan is a 84 y.o. female accompanied by her son Octavio adame. History of Present Illness The patient is an 84-year-old female, non-smoker with history of asthma and acquired tracheomalaciaas well as untreated EMERY with nocturnal hypoxia due to obesity hypoventilation syndrome who comes for follow-up. Her past medical history includes HTN, A. fib, peripheral vascular disease, heart failure with preserved EF, chronic lower extremity edema, Hypothyroid, hyperlipidemia, DM 2, anemia, CKD3, osteoporosis, osteoarthritis and overweight. She was admitted to [facility] from our office on 06/18/2024 and discharged on 06/25/2024 to the short term rehab. She seemed to have CHF exacerbation treatedwith aggressive diureses which eliminated 6 kg of fluid weight. Also did get treated with antibiotic for few days. She was changed from Furosemide to Torsemide. Since hospitalization, she feels better, however, continue with cough ranging from white to green hue she is a little bit wheezy, no chest tightness and stable shortness of breath. She is taking Trelegy 100mcg daily and nebulizer daily in the morning. Due to hospitalization, she missed her Xolair. We will need to reschedule with [facility] infusion suit. Patient would benefit from additional prednisone to see if cough and wheezes would subside. She had EMERY but was not able to tolerate PAP therapy. Maystill have hypoxia. We will send overnight oximetry to operate to reevaluate. She is accompanied byher son today who helps with history and interpretation. ALLERGIES: Allergies Allergen Reactions Cortane-B [[id number]] Lisinopril Simvastatin MEDICATIONS: Outpatient Medications Marked as Taking for the 07/11/24 encounter (Office Visit) with Chelsea Shi NP Medication Sig Dispense Refill albuterol HFA (Ventolin HFA) 90 mcg/actuation inhaler Inhale 2 puffs by mouth every 4 (four) hours if needed for wheezing or shortness of breath. 8 g 5 cholecalciferol (VITAMIN D-3) 50 mcg (2,000 unit) tablet Take 1 tablet (2,000 Units total) by mouth1 (one) time each day. cyanocobalamin (VITAMIN B-12) 1,000 mcg tablet Take 1 tablet (1,000 mcg total) by mouth 1 (one) time each day. dilTIAZem CD (CARDIZEM CD) 240 mg 24 hr capsule Take 1 capsule (240 mg total) by mouth 1 (one) timeeach day. ferrous sulfate 325 mg (65 mg elemental iron) tablet Take 1 tablet (325 mg total) by mouth 1 (one) time each day with breakfast. levothyroxine (SYNTHROID, LEVOTHROID) 75 mcg tablet Take 1 tablet (75 mcg total) by mouth 1 (one) time each day before breakfast. montelukast (SINGULAIR) 10 mg tablet Take 1 tablet (10 mg total) by mouth at bedtime. omeprazole (PriLOSEC) [address] capsule Take 1 capsule (20 mg total) by mouth 1 (one) time each day.Do not crush or chew. warfarin (COUMADIN) 5 mg tablet Take 0.5 tablets (2.5 mg total) by mouth 1 (one) time each day. 90 tablet 1 [DISCONTINUED] albuterol HFA (Ventolin HFA) 90 mcg/actuation inhaler Inhale 2 puffs by mouth every 4 (four) hours if needed for wheezing or shortness of breath. 8 g 5 [DISCONTINUED] loratadine (CLARITIN) 10 mg tablet TAKE 1 TABLET BY MOUTH DAILY. 28 tablet 0 [DISCONTINUED] Trelegy Ellipta 100-62.5-25 mcg inhaler Inhale 1 puff (100 mcg total) by mouth 1 (one) time each day. 60 each 1 REVIEW OF SYSTEMS: GENERAL: No fever, chills. No significant weight changes +fatigue with exertion HEENT: No nasal congestion, sneezing, sinus drainage, nose bleeds or other nasal problems RESPIRATORY: see HPI CARDIOVASCULAR: No chest pain, paroxymal nocturnal dyspnea or palpitations, + edema. GI: No abdominal discomfort, nausea, vomiting, blood in stools or black stools or acid reflex on PPI Addition review negative PAST MEDICAL HISTORY: Past Medical History: Diagnosis Date Acquired tracheomalacia Asthma Chronic shoulder pain CKD (chronic kidney disease) stage 3, GFR 30-59 ml/min (CMS/HCC) Dilated aortic root (CMS/HCC) DJD (degenerative joint disease) Heart failure with preserved ejection fraction ([facility]/HCC) HTN (hypertension) Osteopenia PAF (paroxysmal atrial fibrillation) ([facility]) Sleep apnea PAST SURGICAL HISTORY: Past Surgical History: Procedure Laterality Date COLONOSCOPY 2011 [facility] [place],ONE POLYP OTHER SURGICAL HISTORY D&C SOCIAL HISTORY: TOBACCO: Never ALCOHOL: None DRUGS: None 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 Coli Septicemia VITAL SIGNS: Visit Vitals BP 97/54 Pulse 76 Temp 36.2 ??C (97.1 ??F) (Temporal) Resp 18 SpO2 97% Smoking Status Never Physical Exam APPEARANCE: Overweight (29.23). Alert and in no acute distress. Speaks in full sentences. No stridor. HEAD: Normocephalic, atraumatic NOSE/SINUS: Nares normal. Septum midline. Mucosa normal. No drainage or sinus tenderness. MOUTH/THROAT: no erythema or exudates NECK: Neck supple, no adenopathy, thyroid symmetric and of normal size HEART: RRR with normal S1 and S2, + murmur, no gallops, no JVD appreciated CHEST: non-tender LUNG: Vesicular sounds adeqate bilaterally with expiratory wheezes, but not rhonchi, crackles, rales or rubs. ABDOMEN: Bowel sounds normoactive, no bruits, soft, non-tender, without organomegaly or palpable masses EXTREMITIES: Extremities warm. Bilateral lymphedema with minimal pedal edema, chronic changes R>L DIAGNOSTIC DATA: Peripheral oxygen saturation or SpO2 on RA today is 98%. 07/22/2022. 6 Minutes Walk Test ( 6 MWT ) as per Protocol 1. Patient tolerated walk test without Abnormalities 2. Patient maintained adequate SpO2 during activity with minimal SpO2: 97 %. 11/04/2016. Night Oxymetry 1. Normal nocturnal SpO2. Patient had split test (unknown if split was on CAP or Oxygen supplement) 2. Patient spent most of the time with adequate SpO2 level. 3. Adequate Oxygen supplement based on this finding. 4. Please refer to a details of those finding in medical record/Epic CARDIOPULMONARY TEST 07/22/2022. Complete PFT with pre/post bronchodilator, lung volumes and DLCO diffusion No obstruction. FEV1-79, FVC-62. No response to bronchodilator Moderate restrictive defect. T Mild decreased DLCO diffusion. DLCO:57/127 RADIOLOGY TESTS: 05/28/2024 Chest x-ray at [facility] HISTORY: Increased cough and wheezes, chest tightness, and increased dyspnea. COMPARISON: 08/03/2020 and 05/20/2019, chest CT 11/08/2019 FINDINGS: PA and lateral views of the chest were performed. Exam mildly limited by hypoinflation. Chronic pulmonary vascular congestion without overt congestive heart failure. No consolidation. No pleural effusions. Stable elevation of the left hemidiaphragm. Cardiomegaly and a tortuous ectatic thoracic aorta again noted. Multilevel degenerative changes in the spine. IMPRESSION: Chronic pulmonary vascular congestion suggestive of volume overload without overt congestive heart failure. Chronic cardiomegaly. 11/08/2019. Chest CT justice showed IMPRESSION: Moderately limited exam. Bibasilar scarring and/or atelectasis. Patchy bilateral ground glass opacities in similar distribution to prior exams but less prominent. Findings suggestive of tracheomalacia. No significant change in ascending thoracic aortic dilatation measuring up to 4.3 cm. Chronic cardiomegaly. 12/28/2016. Chest CT. IMPRESSION: Increased patchy ground glass opacities bilaterally. Poor inspiration. Left basilar atelectasis. Peribronchial thickening. This could be related to bronchitis or CHF. Cardiomegaly with prominent pulmonary vasculature consistent with CHF. Ascending thoracic aortic aneurysm. ASSESSMENT: 1. Severe persistent asthma with exacerbation ([facility]) albuterol 2.5 mg /3 mL (0.083 %) nebulizer solution albuterol HFA (Ventolin HFA) 90 mcg/actuation inhaler Overnight Pulse Oximetry DISCONTINUED: predniSONE (DELTASONE) 10 mg tablet 2. EMERY (obstructive sleep apnea) 3. Acute on chronic diastolic heart failure ([facility]) 4. Chronic atrial fibrillation ([facility]) Assessment & Plan 1. Severe asthma with exacerbation: She has shown improvement since her hospitalization and treatment for congestive heart failure (CHF), but continues to experience expiratory wheezing and cough. Most likely worsening due to missed Xolair. Instructed to reschedule shortly. - Initiate prednisone taper starting at 40 mg and decreasing by 10 mg every 3 days - Continue nebulizer treatments 3 times per day for 5 days, then as needed every 4 hours. - Continue using Trelegy 100 mcg once daily - Continue Singular 10 mg nightly - Use albuterol inhaler as needed when outside the home 2. Hx of EMERY and Oxygen desaturation: An overnight oximetry test will be conducted due to her previous history of untreated sleep apnea and hypoventilation. - Send overnight oximetry test to [facility] Follow-up - Reschedule Xolair injection with [facility] infusion suite. Last infusion 06/05/2024. - The patient was educated about asthma treatments and need to reschedule Zolair 375 mg every 2 weeks , where assessment and plan was reviewed and explained, some educational material about his pulmonary problems was given with the discharge summary. All questions were answered. Based on physical exam, symptomatology, tests requested and baseline pulmonary evaluation/disease, I instructed the patient to follow-up with in 2 month(s) as scheduled and as needed in the interim if other concerns/worsening symptoms. - Follow up with Elizabet Shannon for the other co-morbidities. Thanks Elizabet Shannon for allowing me to have the opportunity to assist in the care of this patient. documented in this encounter Plan of Treatment Upcoming Encounters Date Type Department Care Team (Latest Contact Info) Description 07/31/2024 10:50 AM EST Anticoagulation - Warfarin Visit [facility] [address] [address] 08/05/2024 11:00 AM EST Appointment [facility] [address] [facility] 2nd [place] [phone] 08/08/2024 10:40 AM EST Office Visit [facility] - [facility] [address] [facility] 154 [place] [phone] Mikael Montoya NP 300 [place] [address] 09/12/2024 10:00 AM EDT Consult Orthopedic Surgery - [place] [address] 175 [facility] 250 [place] [address] Leeroy Schneider, ANDREW [address] [address] 09/26/2024 11:30 AM EDT Office Visit Pulmonolgy - [place] [address] [address] Chelsea Shi NP [address] [address] 11/26/2024 11:00 AM EDT Appointment Radiology Department [address] [address] Scheduled Orders Name Type Priority Associated Diagnoses Orde r Schedule Overnight Pulse Oximetry Respiratory Care Routine Severe persistent asthma with exacerbation ([facility]) 1 Occurrences starting 07/21/2024 until 07/21/2025 documented as of this encounter Visit Diagnoses Diagnosis Severe persistent asthma with exacerbation (CMS/HCC)- Primary Unspecified asthma, with exacerbation EMERY (obstructive sleep apnea) Obstructive sleep apnea (adult) (pediatric) Acute on chronic diastolic heart failure (CMS/HCC) Acute on chronic diastolic heart failure Chronic atrial fibrillation ([facility]/HCC) Atrial fibrillation Encounter for screening mammogram for breast cancer documented in this encounter Discontinued Medications Medication Sig Discontinue Reason Start Date End Da te albuterol HFA (Ventolin HFA) 90 mcg/actuation inhaler Inhale 2 puffs by mouth every 4 (four) hours if needed for wheezing or shortness of breath. Reorder 06/10/2024 07/11/2024 documented as of this encounter Care Teams Software Project Engineer Relationship Specialty Start Date End Date Elizabet Shannon MD [address] [address] PCP - General Internal Medicine 05/06/24 documented as of this encounter
--- OUTSIDE RECORDS SUMMARY | 2024-07-30 11:57 | XMS_ITS | Encounter Summary ---
[facility] Address [address] [place] [address] Care Team Providers Care Last Sorter Name Role Phone Elizabet Shannon MD Primary Care Provider [phone] Reason for Visit * Reason Onset Date Comments Hospital Follow-up 07/08/2024 Encounter Details Date Type Department Care Team ([facility] st Contact Info) Description 07/08/2024 Telephone [facility] [place] [address] [facility] [address] [place] [phone] Chelsea Shi NP 175 [facility] [address] [place] [address] Hospital Follow-up Social History Tobacco Use Types Packs/Day Years [...] as of this encounter Progress Notes * Rosa Rojas MA - 07/09/2024 8:13 AM EST Hospital follow up scanned in, appointment schedule for 07/11/2024 * Gisela Meeks - 07/08/2024 4:22 PM EST Patient was admitted to the hospital on 06/18/24 and was discharge on 07/06/24 from [facility]. Patient was seen in the hospital due to fluids in the lungs. Patient was told to follow up with PCP . Patient did get IV medication. Please schedule. documented in this encounter Plan of Treatment Upcoming Encounters Date Type Department Care Team (Latest Contact Info) Description 07/31/2024 10:50 AM EST Anticoagulation - Warfarin Visit Coumadin Clinic [address] [address] 08/05/2024 11:00 AM EST Appointment [facility] Infusion Center [address] [facility] 2nd [place] [phone] 08/08/2024 10:40 AM EST Office Visit [facility] - [facility] 154 300 [facility] 154 [place] [phone] Mikael Montoya NP 300 [place] [address] 09/12/2024 10:00 AM EDT Consult Orthopedic Surgery - [place] 250 175 [facility] 250 [place] [phone] Leeroy Schneider DPM 175 [facility] 250 [place] [address] 09/26/2024 11:30 AM EDT Office Visit Pulmonolgy - [place] 175 [facility] 200 [place] [phone] Chelsea Shi NP 175 [facility] 200 [place] [address] 11/26/2024 11:00 AM EDT Appointment Radiology Department - [address] [address] documented as of this encounter Visit Diagnoses Not on filedocumented in this encounter Care Teams Last Sorter Relationship Specialty Start Date End Date Elizabet Shannon MD [address] [place] [address] PCP - General Internal Medicine 05/06/24 documented as of this encounter
--- OUTSIDE RECORDS SUMMARY | 2024-07-30 11:57 | XMS_ITS | Encounter Summary ---
Author Organization [facility] Address [address] [place] [address] Care Team Providers Care Electronic Semiconductor Processor Name Role Phone Elizabet Shannon MD Primary Care Provider [phone] Encounter Details Date Type Department Care Team (Latest Contact Info) Description 07/03/2024 Lab Requisition [facility] - Main Lab [address] [facility] [place] [address] Bruce Petersen MD [facility] [address] [place], [place] [phone] Other thrombophilia (CMS/HCC); ad terminal makeup operator (current) use of anticoagulants Social History [...] AM EST Anticoagulation - Warfarin Visit Coumadin [address] [phone] 08/05/2024 11:00 AM EST Appointment [facility] [address] [facility] 2nd [place] [phone] 08/08/2024 10:40 AM EST Office Visit [facility] - [facility] [address] [facility] 154 [place] [phone] Mikael Montoya NP 300 [place] [address] 09/12/2024 10:00 AM EDT Consult Orthopedic Surgery - [place] 250 175 [facility] 250 [place] [phone] Leeroy Schneider DPM 175 [facility] 250 [place] [address] 09/26/2024 11:30 AM EDT Office Visit Pulmonolgy - [place] [address] [facility] [address] [place] [phone] Chelsea Shi NP 175 [facility] 200 [place] [address] 11/26/2024 11:00 AM EDT Appointment Radiology Department - [address] [address] documented as of this encounter Procedures Procedure Name Priority Date/Time Associated Diagnosis Comments PROTHROMBIN TIME WITH INR Routine 07/04/2024 8:20 AM EST Other thrombophilia (CMS/HCC) ad terminal makeup operator (current) use of anticoagulants documented in this encounter Results * (ABNORMAL) Prothrombin time with INR (07/04/2024 8:20 AM EST) Protime 17.6(H) 10.6 - 13.9 sec LAB COAGULATION METHOD 07/04/2024 10:07 AM EST [facility] INR 1.4 LAB COAGULATION METHOD 07/04/2024 10:07 AM EST [facility] Blood Venous blood specimen / Unknown Venipuncture / Unknown 07/04/2024 8:20 AM EST 07/04/2024 9:45 AM EST Bruce Petersen MD LAB BLOOD ORDERABLES [facility] 299 [place], [place] [address] [phone] documented in this encounter Visit Diagnoses Diagnosis Other thrombophilia (CMS/HCC) ad terminal makeup operator (current) use of anticoagulants Long-term (current) use of anticoagulants Encounter for screening mammogram for breast cancer documented in this encounter Care Teams Electronic Semiconductor Processor Relationship Specialty Start Date End Date Elizabet Shannon MD [address] [place] [address] PCP - General Internal Medicine 05/06/24 documented as of this encounter
--- OUTSIDE RECORDS SUMMARY | 2024-07-30 11:57 | XMS_ITS | Encounter Summary ---
Author Organization [facility] Address [address] [place] [address] Care Team Providers Care Interactive Media Designer Name Role Phone Elizabet Shannon MD Primary Care Provider [phone] Reason for Visit * Reason Onset Date Comments Request For Order(s) 07/15/2024 [facility] Cert 06/03/24-08/01/24 Plan Of Care Encounter Details Date Type Department Care Team ([facility] st Contact Info) Description 07/15/2024 Telephone Internal Medicine - [place] [address] [facility] [address] [place] [address] Janet Mcleod MA Request For Order(s) ([facility] VNA Cert 06/03/24-08/01/24 Plan Of Care /) Social History Tobacco Use Types Packs/Day Years [...] as of this encounter Progress Notes * Janet Mcleod MA - 07/18/2024 7:08 AM EST Scanned into chart and faxed to [facility] GUILLEN [phone] * Janet Mcleod MA - 07/15/2024 11:35 AM EST [facility] MINDY Cert 06/03/24-08/01/24 Plan Of Care Please sign & fax [phone] documented in this encounter Plan of Treatment Upcoming Encounters Date Type Department Care Team (Latest Contact Info) Description 07/31/2024 10:50 AM EST Anticoagulation - Warfarin Visit Coumadin Clinic - [address] [address] 08/05/2024 11:00 AM EST Appointment [facility] [address] [facility] 2nd [place] [address] 08/08/2024 10:40 AM EST Office Visit [facility] - [facility] 154 300 [facility] 154 [place] [phone] Mikael Montoya NP 300 [place] [address] 09/12/2024 10:00 AM EDT Consult Orthopedic Surgery - [place] 250 175 [facility] 250 [place] [phone] Leeroy Schneider DPM 175 [facility] 250 [place] [address] 09/26/2024 11:30 AM EDT Office Visit Pulmonolgy - [place] 175 [facility] 200 [place] [phone] Chelsea Shi NP 175 [facility] 200 [place] [address] 11/26/2024 11:00 AM EDT Appointment Radiology Department - [address] [address] documented as of this encounter Visit Diagnoses Not on filedocumented in this encounter Care Teams Interactive Media Designer Relationship Specialty Start Date End Date Elizabet Shannon MD [address] [place] [address] PCP - General Internal Medicine 05/06/24 documented as of this encounter
--- OUTSIDE RECORDS SUMMARY | 2024-07-30 11:57 | XMS_ITS | Encounter Summary ---
Author Organization [facility] Address [address] [place] [address] Care Team Providers Care Historic Site Administrator Name Role Phone Elizabet Shannon MD Primary Care Provider [phone] Reason for Visit * Reason Onset Date Comments Med Refill 07/11/2024 Encounter Details Date Type Department Care Team ([facility] st Contact Info) Description 07/11/2024 Telephone Internal Medicine - [place] 175 [facility] [address] [place] [phone] Elizabet Shannon MD 175 [facility] 200 [place] [address] Med Refill Social History Tobacco Use Types Packs/Day Years [...] as of this encounter Progress Notes * Destinee Cardenas MA - 07/12/2024 3:54 PM EST Pharmacy aware of msg below * Destinee Cardenas MA - 07/12/2024 8:38 AM EST Unable to reach Mallory. Will try again later * Elizabet Shannon MD - 07/11/2024 11:37 PM EST Continue torsemide, no need of Lasix * Destinee Cardenas MA - 07/11/2024 3:56 PM EST Pls advise? * Selina Cook - 07/11/2024 3:46 PM EST Mallory robins [facility] Tito is calling back for update on pt's diuretic scripts: She received a med list with only torsemide 20mg and not furocemide. Needs new rx with furocemide? Ph# to [phone] ext. [phone] documented in this encounter Plan of Treatment Upcoming Encounters Date Type Department Care Team (Latest Contact Info) Description 07/31/2024 10:50 AM EST Anticoagulation - Warfarin Visit [facility] [address] [address] 08/05/2024 11:00 AM EST Appointment [facility] [address] [place] [phone] 08/08/2024 10:40 AM EST Office Visit [facility] - [facility] [address] [facility] 154 [place] [phone] Mikael Montoya NP 300 [place] [address] 09/12/2024 10:00 AM EDT Consult Orthopedic Surgery - [place] 250 175 [facility] 250 [place] [phone] Leeroy Schneider DPM 175 [facility] 250 [place] [address] 09/26/2024 11:30 AM EDT Office Visit Pulmonolgy - [place] 175 [facility] 200 [place] [address] Chelsea Shi NP 175 [facility] 200 [place] [address] 11/26/2024 11:00 AM EDT Appointment Radiology Department - [address] [address] documented as of this encounter Visit Diagnoses Not on filedocumented in this encounter Care Teams Historic Site Administrator Relationship Specialty Start Date End Date Elizabet Shannon MD [address] [address] PCP - General Internal Medicine 05/06/24 documented as of this encounter
--- OUTSIDE RECORDS SUMMARY | 2024-07-30 11:57 | XMS_ITS | Encounter Summary ---
Author Organization [facility] Address [address] [place] [address] Care Team Providers Care Program Coordinator For Residence Life Name Role Phone Elizabet Shannon MD Primary Care Provider Encounter Details Date Type Department Care Team (Latest Contact Info) Description 07/26/2024 11:00 AM EST Anticoagulation - Warfarin Visit Coumadin [address] [phone] Atrial fibrillation, 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 (CMS/HCC) (Primary Dx); care home (current) use of anticoagulants Social History Tobacco [...] Anticoagulation - Warfarin Visit Cou[facility]in Clinic - [address] [address] 08/05/2024 11:00 AM EST Appointment [facility] [address] [place] [phone] 08/08/2024 10:40 AM EST Office Visit [facility] - [facility] 154 300 [facility] 154 [place] [phone] Mikael Montoya NP 300 [place] [address] 09/12/2024 10:00 AM EDT Consult Orthopedic Surgery - [place] 250 175 [facility] 250 [place] [phone] Leeroy Schneider DPM 175 [facility] 250 [place] [address] 09/26/2024 11:30 AM EDT Office Visit Pulmonolgy - [place] 175 [facility] 200 [place] [phone] Chelsea Shi NP 175 [facility] 200 [place] [address] 11/26/2024 11:00 AM EDT Appointment Radiology Department [address] [address] documented as of this encounter Procedures Procedure Name Priority Date/Time Associated Diagnosis Comments POC PROTIME INR BLOOD Routine 07/26/2024 Atrial fibrillation, 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 (CMS/HCC) 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 documented in this encounter Results * POC Protime INR Blood (07/26/2024) Lot Number INR POC 3.4 Prothrombin Time POC Exp Date Blood 07/26/2024 Doe Hair MD POINT OF CARE TEST E NTER/EDIT ORDERABLES documented in this encounter Visit Diagnoses Diagnosis Atrial fibrillation, 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 (CMS/HCC)- Primary 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 Long-term (current) use of anticoagulants Encounter for screening mammogram for breast cancer documented in this encounter Care Teams Program Coordinator For Residence Life Relationship Specialty Start Date End Date Elizabet Shannon MD [address] [place] [address] PCP - General Internal Medicine 05/06/24 documented as of this encounter
--- OUTSIDE RECORDS SUMMARY | 2024-07-30 11:57 | XMS_ITS | Data Portability ---
Author Organization [facility] Address [address] [place] [address] Care Team Providers Care Livestock Farm Manager Name Role Phone HIM CCA OTHER MARIZA APRILShekhar Primary Care Provider Assessment Encounter Date Assessment Date Assessment LastModified by Organization Details LastModified Time 06/30/2022 06/30/2022 I provided real -time medical direction via phone for this encounter, and was available for additional phone based assistance as needed. I have reviewed and agree with the Assessment and Plan as documented by the Design Maker. Patient given the opportunity to ask questions. [email or web address] Not available 06/30/2022 12:19:40 11/02/2022 11/02/2022 I have reviewed and agree with the Assessment and Plan as documented by the Design Maker. I provided real-time medical direction via phone [...] assessment and plan as documented by the railroader. I provided real-time medical direction for this [...] blood + nimesh 2022 [email or web address], [address], 13:04:55 Referral None recorded. Procedures None recorded. Surgeries None recorded. Imaging None recorded. Medication Orders Tylenol Extra Strength 500 mg tablet 2022 023 [email or web address] 0 Not available 13:04:55 doxycycline hyclate 100 mg capsule 2022 023 [facility], [address] [place], [address], 3 13:17:29 doxycycline hyclate 100 mg capsule 2022 023 [email or web address] 0 [facility], [address] [place], [address], 3 13:16:25 Tylenol Extra Strength 500 mg tablet 2022 023 [facility], [address] [place], [address], 3 13:17:26 doxycycline hyclate 100 mg capsule 2022 023 [facility], [address] [place], [address], 3 14:55:18 miconazole nitrate 2 % topical powder 2022 023 [facility], [address] [place], [address], 3 14:57:16 ceftriaxone 1 gram solution for injection 2023 024 [email or web address], [address] [place], [address], 4 15:09:27 cephalexin 500 mg capsule 2023 024 [facility], [address] [place], [address], 4 15:10:49 acetaminoph en 500 mg tablet 2023 024 [facility], [address] [place], [address], 4 15:09:27 Patient TargetsNo targets recorded. Patient InstructionsNo instructions recorded. Reason for Referral None Reported. Results Created Date Observation Date Name Description Value Unit Range Abnormal Flag Note LastModifiedBy Organization Detail LastModifiedTime 06/30/1906/30/2022 cmp, whole blood + picco lo ALB 3 Not Available [facility] - [facility] [address], [address], 06/30/2022 12:28:20 06/30/19 23 06/30/2022 cmp, whole blood + picco lo BUN 21 Not Available [facility] [address], [address], 06/30/2022 12:28:20 06/30/19 23 06/30/2022 cmp, whole blood + picco lo Ca 8.8 Not Available [facility] - [facility] [address], [address], 06/30/2022 12:28:20 06/30/1906/30/2022 cmp, whole blood + picco lo CI- normal Not Available [facility] - [facility] [address], [address], 06/30/2022 12:28:20 06/30/19 23 06/30/2022 cmp, whole blood + picco lo CRE 1.9 Not Available [facility] [address], [address], 06/30/2022 12:28:20 06/30/1906/30/2022 cmp, whole blood + picco lo GLU 107 Not Available [facility] [address], [address], 06/30/2022 12:28:20 06/30/19 23 06/30/2022 cmp, whole blood + picco lo K+ 4.4 Not Available [facility] - [facility] [address], [address], 06/30/2022 12:28:20 06/30/1906/30/2022 cmp, whole blood + picco lo Na+ 137 Not Available [facility] - [facility] [address], [address], 06/30/2022 12:28:20 06/30/1906/30/2022 cmp, whole blood + picco lo tCO2 31 Not Available [facility] - [facility] [address], [address], 06/30/2022 12:28:20 06/30/19 23 06/30/2022 cmp, whole blood + picco lo TP 8.7 Not Available [facility] [address], [address], 06/30/2022 12:28:20 Result Notes None recorded. Medical Equipment None Reported. Allergies Allergen ID Allergen Name Allergen Category Reaction Reaction Severity Criticality Documentation Date Start Date Code Code System Note Provider Name and Address Organization Details Recorded Time 155 simvastat in medicatio n Not available Not available Not available 09/10/2021 32993 RxNorm Livia Green MD [address] [place] [address],[address], [place], [address], [place], [employer] 2 15:50:52 156 lisinopri l medicatio n Not available Not available Not available 09/10/2021 43044 RxNorm Livai Green MD [address] [place] [address],[address], [place], [address], [employer] [facility] [employer], [employer] 2 15:51:04 157 Zocor medicatio n Not available Not available Not available 09/10/2021 44511 3 RxNorm Livia Green MD [address] [place] [address],[address], [place], [address], [place], [employer] 2 15:51:37 1698 Cortane-B medicatio n Not available Not available Not available 06/30/2022 59923 5 RxNorm liste d in her chart in [facility] my chart Livia Green MD [address] [place] [address],[address], [place], [address], [place], [employer] 3 12:15:06 1699 digoxin medicatio n Not available Not available Not available 06/30/2022 3407 RxNorm liste d in my chart - [facility] Livia Green MD [address] [place] [address],[address], [place], [address], [place], [employer] 3 12:15:26 Medications Name Sig Start Date [...] % 99 % 160.02 cm 110 /min 51283.3 76 g 16 /min 116 mm[Hg] 71 [...] [degF] 160.02 cm 22 /min 110 /min 48333.1 92 g 140 mm[Hg] 80 mm[Hg] Not Available [employer] 4 14:58:50 Date Recorded Body height Oxygen [...] cm 97 % 97 % 99.8 [degF] 36953.6 8 g 96 /min 18 /min 160.02 cm 18 /min 96 /min 99.8 [degF] 97 % 97 % 78905.6 8 g 119 mm[Hg] 61 mm[Hg] 119 mm[Hg] 61 mm[Hg] Not Available [employer] 3 13:49:11 Date Recorded Oxygen saturation Oxygen saturation in Arterial blood by Pulse oximetry Heart rate Body temperature Respiratory rate Systolic blood pressure Diastolic blood pressure Provider Name and Address Organization Details Last Updated DateTime 3 98 % 98 % 76 /min 99 [degF] 122 /min 124 mm[Hg] 65 mm[Hg] Not Available [facility] 3 15:46:59 Date Recorded Respiratory rate Heart rate Body weight Body temperature Oxygen saturation Oxygen saturation in Arterial blood by Pulse oximetry Systolic blood pressure Diastolic blood pressure Provider Name and Address Organization Details Last Updated DateTime 3 14 /min 81 /min 61647.6 g 97.9 [degF] 99 % 99 % 132 mm[Hg] 66 mm[Hg] Not Available [facility] 3 14:51:12 Social History None recorded. Functional Status None recorded. Mental Status None recorded. Family History Nothing Reported. Medical History No medical history recorded. Gynecological HistoryNo gynecological history recorded. Obstetrics History GPAL:G 0 P 0 0 0 0 Past Encounters Encounter ID Performer Location Encounter Start Date Encounter Closed Date Diagnosis/Indication Diagnosis SNOMED-CT Code Diagnosis ICD10 Code Diagnosis Note [id number] Livia Green MD [facility] - [facility] [address] [place] [phone] 09/10/2021 15:52:47 03/03/2022 16:20:49 Edema of lower extremity 778525629 R60.0 - venous stasis with clinically improving chf Chronic ki dney disease 743858397 N18.9 [id number] Evelio Cline MD Main - [facility] [address] [place] [phone] 10/07/2021 13:43:00 02/25/2022 14:50:20 Sepsis 09645999 A41.9 [id number] Livia Green MD Main - [facility] [address] [place] [phone] 06/30/2022 12:13:11 07/04/2022 09:50:58 Cellulitis of lower limb 352394971 L03.119 On coumadin INR SL LOW/ Colton's negative, making recurrent DVT less likely but given pain and swelling would benefit from venous US of both LE- reached out to CRC to contact CP re helping to arrange- needs close f.u- patient aware. Advised to call PCP tomorrow. Advised if develops CP/SOB/tur kota blue/uncon trolled n/v or black/bloo dy emesis or stool/ AMS/ syncope/ hi fever un responsive to APAP/ redness spreading up legs to go to ER immediatel y- verbalized understand ing of instructio ns [id number] Jose Bill MD Main - [facility] [address] [place] [phone] 07/29/2022 15:46:52 08/01/2022 12:25:19 Open wound of lower leg 342970741 S81.801A Patient with lymphedema presents with right lower extremity wound. She was seen in ED 3 days ago and prescribed antibiotic s. I reviewed photos. The wound is covered in silver. There is no acute need for treatment but she would benefit from care in a wound clinic. She has a visiting nurse caring for the wound. She will continue prescribed doxycyclin e and cephalexin . The family was concerned she may need ED but I do not feel this is needed. [id number] Evelio Cline MD [facility] - [facility] [address] [place] [phone] 11/02/2022 14:50:44 11/03/2022 15:22:51 Venous stasis edema of bilateral lower limbs [id number] 5213022 I87.2 [id number] Julian Vaz MD Main - [facility] [address] [place] [phone] 01/18/2024 14:59:01 01/19/2024 08:38:20 Medical examination for suspected condition [id number] Z00.01 As noted, we were called to see this patient regarding concerns of hypertensi on and hypoxemia noted at pulmonolog ist visit. Evaluation in the field was performed by my railroader colleague, as noted above, I provided real-time direction and supervisio n for this visit. The evaluation revealed no evidence of hypertensi on or hypoxemia. The patient denied any concerns. Her heart rate was minimally elevated and this was reported to be chronic by the family members. Impression :Recheck of vital signs Plan:Ty nued follow-up Primary care, considerph one call to reach out in 48h Dispositio n: We discussed the diagnostic uncertaint y of home visits and the risk associated with this. In this case, the patient and I felt this to be an acceptable and reasonable amount of risk given the benefit of avoiding an ED visit. We discussed the need to seek care urgently/e mergently in the setting of any new or worsening serious symptoms, particular ly shortness of breath, chest pain, chest pressure, or any new/worsen ing symptom. [id number] Sandhya Perez MD [facility] - [facility] [address] [place] [phone] 02/25/2024 14:58:29 02/27/2024 00:15:06 Cellulitis of lower leg 919774062 L03.119 Health Concerns Section Related Observation LastModified by Organization Detai ls LastModified Time None Recorded Concern Status LastModified by Organization Details LastModified Time None Recorded Advance Directives Directive None Recorded Payers Encounter Date Sequence Insurance Name Policy Number Policy Potts Covered Member ID Potts Member ID Guarantor Name 06/30/2022 1 [facility] - DOS PRIOR TO 2022 - DUAL ELIGIBLE (MEDICARE REPLACEMENT/ADV ANTAGE - HMO) Adriana Roldan [id number] Adriana Roldan 07/29/2022 1 [facility] - DOS PRIOR TO 2022 - DUAL ELIGIBLE (MEDICARE REPLACEMENT/ADV ANTAGE - HMO) Adriana Farrisdo [id number] Adriana Roldan 11/02/2022 1 [facility] - DOS PRIOR TO 2022 - DUAL ELIGIBLE (MEDICARE REPLACEMENT/ADV ANTAGE - HMO) Adriana Farrisdo [id number] Adriana Roldan 01/18/2024 1 [facility] - DOS ON OR AFTER 2022 - DUAL ELIGIBLE - HALFWAY OPTIONS AND ONE CARE (MEDICARE REPLACEMENT/ADV ANTAGE - HMO) Adriana Farrisdo [id number] Adriana Roldan 02/25/2024 1 [facility] - DOS ON OR AFTER 2022 - DUAL ELIGIBLE - HALFWAY OPTIONS AND ONE CARE (MEDICARE REPLACEMENT/ADV ANTAGE - HMO) Adriana Farrisdo [id number] Adriana Farrisdo Notes Date Note Type Note [...] ..................... ..................... ..................... ..................... ..................... ..................... ............... Design Maker Note: Sent to a call for a [...] evening. Pictures of lower extremities uploaded to [employer]. BP:119/61, P:96, RR:18, SpO2:97% RA, T:99.8; Lung sounds: clear bilaterally; Abdomen: soft, non-tender, no distention; Lower extremities: edema, erythema, and dry skin noted bilaterally in lower legs and feet. (+)motor and sensory, normal cap refill; unable to palpate pedal pulses through edema and dry skin; [facility] orders POC CMP, Doxycycline 100mg PO, and Tylenol 1gm PO. Blood draw initiated; CMP results uploaded to [employer]. Doxycycline and Tylenol administered as ordered. [facility] sends script to pt's pharmacy for Tylenol and Doxycycline. Pt advised to elevate legs, and avoid salt. Pt advised to follow up with PCP tomorrow. Pt advised to take Tylenol 1gm 2-3 times daily, and start Doxycycline prescription tomorrow, since first dose was given today. [facility] will recommend ultrasound to rule [...] last time had cellulitis. Last labs in [place]: [facility] visit 09/14- BUN was 27/ cr 2.1-has hx CKD in addition to the above . Is on warfarin- INR this am was 1.6 Livia Green MD [address] [facility],[address], [place], [address], [employer] 06/30/2022 18:19:42 07/29/2022 text/html HPI: 82 yo Marshallese Speaking male with PMH of with Lymphedema of bilateral LL and recurrent cellulitis of RLL and sepsis, presented [facility] ED on 07/26/22 [...] process this visit. Jose Bill MD [address] [facility],[address], [place], [address], [employer] 07/29/2022 15:53:48 11/02/2022 text/html CRC Nursing Assessment: Reason For Request: Son reporting [...] ..................... ..................... ..................... ..................... ..................... ..................... ............... Design Maker Note From Jose A Miller: Pt/caregiver reports [...] ..................... ............... Disposition: Fulfilled Evelio Cline MD [address] [place] [address],[address], [place], [address], [facility] 12/08/2022 14:13:32 01/18/2024 text/html CRC Nurse Triage [...] ..................... ..................... ..................... ..................... ..................... ..................... ............... Design Maker Note From Tre Garibay: [facility] visit for female patient. Pt present with family who translated for pt who only speaks japanese. Family reports that pt was brought to outpatient appointment for an injection for her asthma. She was noted at appointment to have a low oxygen level and some concern about her blood pressure and family was instructed to go to ED or have [facility] visit. Pt has no complaints at this time and is well appearing. V/S taken with HR noted to be elevated, irregular with history of atrial fibrillation. Lungs clear with good pulse ox on assessment. Consulted with [facility] Dr. Vaz. No further assessment or treatments needed at this time. Family instructed to continue monitoring patient. Patient education provided. ..................... ..................... ..................... ..................... ..................... ..................... ............... Disposition: Fulfilled Julian Vaz MD [address] [place] [address],[address], [place], [address], [facility] 01/18/2024 15:59:58 02/25/2024 text/html [facility] Nurse Triage Notes (Blayne Montiel): Reason For Request: pt's son aixa reporting n/v/d since waking up this morning alongside fever>mbr is currently being seen at wound clinic for a wound below the right knee>son notes swelling on the right leg Chief Complaints: Nausea/Vomiting, Diarrhea, Cellulitis, Fever/Chills PMH: CHF, COPD/Asthma, Hypertension Allergies: Unknown Comments: Relay Engineer verified the member's name//address and phone number. Mbr's son reporting N/V/D and fever since this morning. Son reports RLE is swollen and red. Fever reportedly 105F, now 101F after Tylenol. Education provided on the response time and the member was advised to monitor reported s/s and seek emergency treatment if needed -Kenan Montiel RN ..................... ..................... ..................... ..................... ..................... ..................... ............... Design Maker Note From Trevon Chirinos: [facility] note Mbr's [...] 105, oral. Pt was given 500mg Tylenol CAREER MANAGER around noon. Pt has had the wound on her R leg for about 6 months. A nurse comes in a few times a week to change the dressing. Pt is not being treated with antibiotics, but [facility] was here about 3 months [...] pt and family. 1g Tylenol - PO. MD also sent rx for antibiotics to pt's pharmacy.Redness on leg was marked with marker.Discussed red flags with pt and son. Pt's son lives with pt and is her FILLING OPERATOR. Informed to keep an eye redness, and look out for fever, AMS and other septic findings, and when to go to the ER. ..................... ..................... ..................... ..................... ..................... ..................... ............... Disposition: Fulfilled Sandhya Perez MD [address] [place] [address],[address], [place], [phone], [facility] 02/25/2024 17:24:52 OBGyn Episode No OBEpisode recorded.
--- OUTSIDE RECORDS SUMMARY | 2024-07-30 11:57 | XMS_ITS | Encounter Summary ---
[facility] Organization [facility] Address [address] [place] [address] Care Team Providers Care It Web Development Consultant Name Role Phone Elizabet Shannon MD Primary Care Provider [phone] Encounter Details Date Type Department Care Team (Late st Contact Info) Description 07/23/2024 Telephone [facility] [address] [phone] Felicita Alvarado LPN Social History Tobacco Use Types Packs/Day Years [...] EST Anticoagulation - Warfarin Visit [facility] [address] [phone] 08/05/2024 11:00 AM EST Appointment [facility] Center [address] [place] [address] 2nd [place] [address] 08/08/2024 10:40 AM EST Office Visit [facility] - [facility] 154 300 [facility] 154 [place] [phone] Mikael Montoya NP 300 [place] [address] 09/12/2024 10:00 AM EDT Consult Orthopedic Surgery - [place] 250 175 [facility] 250 [place] [phone] Leeroy Schneider DPM [address] [address] 09/26/2024 11:30 AM EDT Office Visit Pulmonolgy - [place] 175 [facility] 200 [place] [phone] Chelsea Shi NP [address] [address] 11/26/2024 11:00 AM EDT Appointment Radiology Department - [address] [address] documented as of this encounter Visit Diagnoses Diagnosis Atrial fibrillation, 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 (CMS/HCC)- Primary retirement (current) use of anticoagulants Long-term (current) use of anticoagulants Encounter for screening mammogram for breast cancer documented in this encounter Care Teams It Web Development Consultant Relationship Specialty Start Date End Date Eilzabet Shannon MD [address] [address] PCP - General Internal Medicine 05/06/24 documented as of this encounter
--- OUTSIDE RECORDS SUMMARY | 2024-07-30 11:57 | XMS_ITS | Encounter Summary ---
Author Organization [facility] Address [address] [facility] 200 [place] [address] Phone Care Team Providers Care Bread Supervisor Name Role Phone Amaya Lewis MD Primary Care Provider [phone] Reason for Visit * Reason Comments Med Refill Encounter Details Date Type Department Care Team (Late Contact Info) Description 08/30/2023 Refill [facility] [address] [place] [phone] Jose [place] MD 9106 [facility] 204 [place] [address] Social History Tobacco Use Types Packs/Day Years Used Date Smoking Tobacco: Never Passive Smoke Exposure: Never Smokeless Tobacco: Never Alcohol Use Standard [...] Office Visit [facility] [address] [place] [address] Jose [place] MD 3555 [facility] 204 [place] [address] documented as of this encounter Visit Diagnoses Not on filedocumented in this encounter Care Teams Bread Supervisor Relationship Specialty Start Date End Date Amaya Lewis MD [address] [place] PCP - General Internal Medicine 05/20/24 documented as of this encounter
--- OUTSIDE RECORDS SUMMARY | 2024-07-30 11:57 | XMS_ITS | Encounter Summary ---
Author Organization [facility] Address [address] [place] [address] Care Team Providers Care Customs Manager Name Role Phone Elizabet Shannon MD Primary Care Provider [phone] Reason for Visit * Reason Onset Date Comments DME request 07/26/2024 Encounter Details Date Type Department Care Team (Late st Contact Info) Description 07/26/2024 Telephone [facility] [place] 175 [facility] [address] [place] [address] Graciela Mckinley MA DME request Social History Tobacco Use Types Packs/Day Years [...] as of this encounter Progress Notes * Graciela Mckinley MA - 07/26/2024 2:33 PM EST Order for SANTIAGO on room air faxed to Daniela. Fax confirmation received. documented in this encounter Plan of Treatment Upcoming Encounters Date Type Department Care Team (Latest Contact Info) Description 07/31/2024 10:50 AM EST Anticoagulation - Warfarin Visit Coumadin Clinic - [address] [address] 08/05/2024 11:00 AM EST Appointment [facility] Infusion Center 271 [facility] 2nd [place] [phone] 08/08/2024 10:40 AM EST Office Visit [facility] - [facility] 154 300 [facility] 154 [place] [address] Mikael Montoya NP 300 [place] [address] 09/12/2024 10:00 AM EDT Consult Orthopedic Surgery - [place] 250 175 [facility] 250 [place] [phone] Leeroy Schneider DPM 175 [facility] 250 [place] [address] 09/26/2024 11:30 AM EDT Office Visit Pulmonolgy - [place] 175 [facility] 200 [place] [phone] Chelsea Shi NP 175 [facility] 200 [place] [address] 11/26/2024 11:00 AM EDT Appointment Radiology Department - [address] [phone] documented as of this encounter Visit Diagnoses Not on filedocumented in this encounter Care Teams Customs Manager Relationship Specialty Start Date End Date Elizabet Shannon MD [address] [address] PCP - General Internal Medicine 05/06/24 documented as of this encounter
--- OUTSIDE RECORDS SUMMARY | 2024-07-30 11:58 | XMS_ITS | Encounter Summary ---
Author Organization [facility] Address [address] [place] [address] Care Team Providers Care Hotshot Superintendent Name Role Phone Elizabet Shannon MD Primary Care Provider [phone] Encounter Details Date Type Department Care Team (Late st Contact Info) Description 05/09/2024 Lab Requisition [facility] - Main Lab 299 [facility] [place] [phone] Mikael Montoya NP 300 [place] [address] Mixed hyperlipidemia; Peripheral vascular disease, unspecified (CMS/HCC); Chronic diastolic (congestive) heart failure (CMS/HCC); Longstanding persistent atrial fibrillation (CMS/HCC) Social History Tobacco Use Types Packs/Day Years Used Date Smoking Tobacco: Never Smokeless Tobacco: Never Alcohol Use Standard Drinks/Week Comments Never 0 (1 standard drink = 0.6 oz pur e alcohol) Sex and Gender Information Value Date Recorded [...] AM EST Anticoagulation - Warfarin Visit Coumadin [address] [phone] 08/05/2024 11:00 AM EST Appointment [facility] Infusion Center [address] 2nd [place] [phone] 08/08/2024 10:40 AM EST Office Visit [facility] - [address] 300 [facility] [address] [place] [phone] Mikael Montoya NP 300 [place] [address] 09/12/2024 10:00 AM EDT Consult Orthopedic Surgery - [facility] 250 175 [facility] [address] [place] [phone] Leeroy Schneider DPM 175 [facility] 250 [place] [address] 09/26/2024 11:30 AM EDT Office Visit [facility] - [facility] 175 [facility] [address] [place] [phone] Chelsea Shi NP 175 [facility] 200 [place] [address] 11/26/2024 11:00 AM EDT Appointment Radiology Department - [address] [address] documented as of this encounter Procedures Procedure Name Priority Date/Time Associated Diagnosis Comments SST - GOLD Routine 05/09/2024 12:00 PM EST Mixed hyperlipidemia Peripheral vascular disease, unspecified (CMS/HCC) Chronic diastolic (congestive) heart failure (CMS/HCC) Longstanding persistent atrial fibrillation (CMS/HCC) LIPID PANEL WITH REFLEX TO DIRECT LDL Routine 05/09/2024 12:00 PM EST Mixed hyperlipidemia Peripheral vascular disease, unspecified (CMS/HCC) Chronic diastolic (congestive) heart failure (CMS/HCC) Longstanding persistent atrial fibrillation (CMS/HCC) B-TYPE NATRIURETIC PEPTIDE Routine 05/09/2024 12:00 PM EST Mixed hyperlipidemia Peripheral vascular disease, unspecified (CMS/HCC) Chronic diastolic (congestive) heart failure (CMS/HCC) Longstanding persistent atrial fibrillation (CMS/HCC) BASIC METABOLIC PANEL Routine 05/09/2024 12:00 PM EST Mixed hyperlipidemia Peripheral vascular disease, unspecified (CMS/HCC) Chronic diastolic (congestive) heart failure (CMS/HCC) Longstanding persistent atrial fibrillation (CMS/HCC) documented in this encounter Results * SST tube (05/09/2024 12:00 PM EST) Pathologist [facility] Extra Tube Hold for add-ons. 05/09/2024 4:02 PM EST [facility] Comment:Auto resulted. Blood Venous blood specimen / Unknown 05/09/2024 12:00 PM EST 05/09/2024 2:34 PM EST Mikael Montoya NP LAB BLOOD ORDERABLES Performing Organization Address City/[facility]/ZIP Co de Phone Number [facility] 299 [place] [address], [place] [phone] * (ABNORMAL) B-type natriuretic peptide (05/09/2024 12:00 PM EST) [facility] BNP 134(H) <=100 pcg/mL LAB CHEMISTRY METHOD 05/09/2024 3:57 PM EST [facility] Blood Venous blood specimen / Unknown 05/09/2024 12:00 PM EST 05/09/2024 2:29 PM EST Mikael Montoya NP LAB BLOOD ORDERABLES [facility] 299 [place] [address], [place] [phone] * Lipid panel with reflex to direct LDL (05/09/2024 12:00 PM EST) Pathologist [facility] Cholesterol 133 0 - 200 mg/dL LAB CHEMISTRY METHOD 05/09/2024 4:50 PM [facility] Triglycerides 44 0 - 150 mg/dL LAB CHEMISTRY METHOD 05/09/2024 4:50 PM [facility] HDL 83 >=40 mg/dL LAB CHEMISTRY METHOD 05/09/2024 4:50 PM [facility] LDL Calculated 41 0 - 100 mg/dL LAB CHEMISTRY METHOD 05/09/2024 4:50 PM [facility] VLDL Cholesterol Trino 8.8 mg/dL LAB CHEMISTRY METHOD 05/09/2024 4:50 PM [facility] Non HDL Chol. (LDL+VLDL) 50 <145 mg/dL LAB CHEMISTRY METHOD 05/09/2024 4:50 PM [facility] Chol/HDL Ratio 1.6 0.0 - 4.4 LAB CHEMISTRY METHOD 05/09/2024 4:50 PM [facility] Blood Venous blood specimen / Unknown 05/09/2024 12:00 PM EST 05/09/2024 2:29 PM EST Mikael Montoya NP LAB BLOOD ORDERABLES [facility] 299 [place] [address], * (ABNORMAL) Basic metabolic panel (05/09/2024 12:00 PM EST) Sodium 141 133 - 145 mmol/L LAB CHEMISTRY METHOD 05/09/2024 4:47 PM [facility] Potassium 3.6 3.5 - 5.5 mmol/L LAB CHEMISTRY METHOD 05/09/2024 4:47 PM [facility] Chloride 105 96 - 110 mmol/L LAB CHEMISTRY METHOD 05/09/2024 4:47 PM [facility] CO2 32 21 - 32 mmol/L LAB CHEMISTRY METHOD 05/09/2024 4:47 PM [facility] Anion Gap 4 3 - 11 LAB CHEMISTRY METHOD 05/09/2024 4:47 PM [facility] Glucose 118(H) 70 - 100 mg/dL LAB CHEMISTRY METHOD 05/09/2024 4:47 PM [facility] BUN 34(H) 5 - 25 mg/dL LAB CHEMISTRY METHOD 05/09/2024 4:47 PM [facility] Creatinine 1.54(H) 0.50 - 1.10 mg/dL LAB CHEMISTRY METHOD 05/09/2024 4:47 PM [facility] eGFR 33(L) >=60 mL/min/1. 73m2 LAB CHEMISTRY METHOD 05/09/2024 4:47 PM [facility] Comment:Calculation based on the??Chronic Kidney Disease Epidemiology Collaboration (CKD-EPI) equation refit??without adjustment for race. BUN/Creatinine Ratio 22.1 LAB CHEMISTRY METHOD 05/09/2024 4:47 PM [facility] Calcium 8.9 8.5 - 10.5 mg/dL LAB CHEMISTRY METHOD 05/09/2024 4:47 PM [facility] Blood Venous blood specimen / Unknown 05/09/2024 12:00 PM EST 05/09/2024 2:29 PM EST Mikael Montoya NP LAB BLOOD ORDERABLES [facility] 299 [place] [address], documented in this encounter Visit Diagnoses Diagnosis Mixed hyperlipidemia Peripheral vascular disease, unspecified (CMS/HCC) Peripheral vascular disease, unspecified Chronic diastolic (congestive) heart failure (CMS/HCC) Longstanding persistent atrial fibrillation (CMS/HCC) Encounter for screening mammogram for breast cancer documented in this encounter Additional Health Concerns Infection Onset Date Last Indicated Resolved Time Respiratory Rule-Out 06/18/2024 06/18/2024 024 5:27 PM EST COVID-19 Rule-Out 06/18/2024 06/18/2024 06/18/2024 5:27 PM EST documented as of this encounter Care Teams Hotshot Superintendent Relationship Specialty Start Date End Date Elizabet Shannon MD [address] [place] [address] PCP - General Internal Medicine 05/06/24 documented as of this encounter
--- OUTSIDE RECORDS SUMMARY | 2024-07-30 11:58 | XMS_ITS | Encounter Summary ---
[facility] Address [address] [place] [address] Care Team Providers Care Orthodontic Band Maker Name Role Phone Rishi Lion MD Primary Care [facility] Encounter Details Date Type Department Care Team (Late st Contact Info) Description 04/04/2024 10:56 AM EDT Hospital Encounter TH HISTORIC ENCOUNTERS EASTERN CONVERSION ONLY Social History Tobacco Use Types Packs/Day Years [...] Sign Reading Time Taken Comments Blood Pressure - - Pulse - - Temperature - - Respiratory Rate - - Oxygen Saturation - - Inhaled Oxygen Concentration - - Weight 83.1 kg (183 lb 3.2 oz) 08/23/2023 11:05 AM EST Height 157.5 cm (5' 2 ) 07/26/2023 10:41 AM EST Body Mass Index 32.45 08/01/2023 11:39 AM EST documented in this encounter Progress Notes * Historical, Notes Results - 04/04/2024 11:00 AM EDT 1115: PT arrives this morning with son for Q 2 week Xolair injectiones. PT reports she was recentlyD/C from the wound clinic for wounds to bilateral lower extremities.Sts legs are improving, wearingcompression socks, bilateral lower legs noted to be extremely edematous, pitting edema +3 with skindarkened in color and weeping. PT also continues to report a dry cough, otherwise stable assessment. PT given a coffee, denies other concerns, call dempsey in reach. 1150: Xolair injection administered well tolerated without concern. 2 injections administered into PTs LEFT arm SQ, and 1 injection administered into PTs RIGHT arm SQ. PT provided with future apt reminders via calendar, verbalized understanding, denies other concerns, left unit via wheelchair with her son, stable at D/C. documented in this encounter Plan of Treatment Upcoming Encounters Date Type Department Care Team (Latest Contact Info) Description 07/31/2024 10:50 AM EST Anticoagulation - Warfarin Visit Coumadin Clinic [address] [address] 08/05/2024 11:00 AM EST Appointment [facility] Infusion Center 271 [facility] 2nd [place] [phone] 08/08/2024 10:40 AM EST Office Visit [facility] - [facility] 154 300 [facility] 154 [place] [phone] Mikael Montoya NP 300 [place] [address] 09/12/2024 10:00 AM EDT Consult Orthopedic Surgery - [place] 250 175 [facility] 250 [place] [phone] Leeroy Schneider DPM 175 [facility] 250 [place] [address] 09/26/2024 11:30 AM EDT Office Visit Pulmonolgy - [place] [address] [place] [address] Chelsea Shi, ALAINA [address] [facility] [address] [facility] 200 [place] [address] 11/26/2024 11:00 AM EDT Appointment Radiology Department - [address] [address] documented as of this encounter Visit Diagnoses Not on filedocumented in this encounter Additional Health Concerns Infection Onset Date Last Indicated Resolved Time Respiratory Rule-Out 06/18/2024 06/18/2024 024 5:27 PM EST COVID-19 Rule-Out 06/18/2024 06/18/2024 06/18/2024 5:27 PM EST documented as of this encounter Care Teams Orthodontic Band Maker Relationship Specialty Start Date End Date Rishi Lion MD [address] [place] [address] [place] [address] PCP - General 04/04/24 05/05/24 documented as of this encounter
--- OUTSIDE RECORDS SUMMARY | 2024-07-30 11:58 | XMS_ITS | Encounter Summary ---
Author Organization [facility] Address [address] [place] [address] Care Team Providers Care Flag Decorator Name Role Phone Elizabet Shannon MD Primary Care Provider [phone] Reason for Visit * Episode Based Medications (Routine) - Authorized Specialty Diagnoses / Procedures Referred By Contac t Referred To Contact Diagnoses Moderate asthma without complication, unspecified whether persistent Evangelina Lou MD [address] [address] [facility] Infusion Center [address] [place] [phone] Referral ID Status Reason Start Date Expiration Date V isits Requested Visits Authorized [id number] Authorized 05/08/2024 05/08/2025 1 23 Encounter Details Date Type Department Care Team (Latest Contact Info) Description 07/22/2024 11:00 AM EST - 07/22/2024 11:59 PM EST Hospital Encounter [facility] Infusion Center [address] [place] [phone] Evangelina Lou MD [address] [address] Moderate asthma without complication, unspecified whether persistent (Primary Dx) Discharge Disposition: Home or Self Care Social History Tobacco Use Types Packs/Day Years [...] Sign Reading Time Taken Comments Blood Pressure 104/65 07/22/2024 11:07 AM EST Pulse 96 07/22/2024 11:07 AM EST Temperature 36.9 ??C (98.4 ??F) 07/22/2024 11:[address] Respiratory Rate 20 07/22/2024 11:07 AM EST Oxygen Saturation 98% 07/22/2024 11:07 AM EST Inhaled Oxygen Concentration - - Weight - - Height - - Body Mass Index - - documented in this encounter Medications at Time of Discharge Medication Sig Dispensed Refills Start Date End Date acetaminophen (TYLENOL) 500 mg tablet TAKE 1 TABLET BY MOUTH EVERY 6 HOURS NEEDED FOR PAIN 30 tablet 1 07/11/2024 albuterol 2.5 mg /3 mL (0.083 %) nebulizer solutionIndications:S evere persistent asthma with exacerbation (CMS/HCC) Take 3 mL (2.5 mg total) by nebulization every 4 (four) hours if needed for wheezing. 75 mL 3 07/11/2024 07/11/2025 albuterol HFA (Ventolin HFA) 90 mcg/actuation inhalerIndications:Se veronica persistent asthma with exacerbation (CMS/HCC) Inhale 2 puffs by mouth every 4 (four) hours if needed for wheezing or shortness of breath. 8 g 5 07/11/2024 01/07/2025 benzonatate (TESSALON) 100 mg capsule Take 1 capsule (100 mg total) by mouth 3 (three) times a day if needed for cough for up to 15 days. Do not crush or chew. 42 capsule 07/16/2024 07/31/2024 cholecalciferol (VITAMIN D-3) 50 mcg (2,000 unit) tablet Take 1 tablet (2,000 Units total) by mouth 1 (one) time each day. cyanocobalamin (VITAMIN B-12) 1,000 mcg tablet Take 1 tablet (1,000 mcg total) by mouth 1 (one) time each day. dilTIAZem CD (CARDIZEM CD) 240 mg 24 hr capsule Take 1 capsule (240 mg total) by mouth 1 (one) time each day. ferrous sulfate 325 mg (65 mg elemental iron) tablet Take 1 tablet (325 mg total) by mouth 1 (one) time each day with breakfast. fexofenadine (MICHOACANO) 180 mg tablet Take 1 tablet (180 mg total) by mouth 1 (one) time each day if needed (cough). 30 tablet 07/16/2024 08/15/2024 levothyroxine (SYNTHROID, LEVOTHROID) 75 mcg tablet Take 1 tablet (75 mcg total) by mouth 1 (one) time each day before breakfast. loratadine (CLARITIN) 10 mg tablet TAKE 1 TABLET BY MOUTH DAILY. 28 tablet 07/16/2024 montelukast (SINGULAIR) 10 mg tablet Take 1 tablet (10 mg total) by mouth at bedtime. omeprazole (PriLOSEC) [address] capsule Take 1 capsule (20 mg total) by mouth 1 (one) time each day. Do not crush or chew. torsemide (DEMADEX) 20 mg tablet Take 2 tablets (40 mg total) by mouth 2 (two) times daily morning and afternoon. 120 each 11 07/11/2024 07/11/2025 Trelegy Ellipta 100-62.5-25 mcg inhaler Inhale 1 puff (100 mcg total) by mouth 1 (one) time each day. 60 each 1 07/11/2024 warfarin (COUMADIN) 5 mg tablet Take 0.5 tablets (2.5 mg total) by mouth 1 (one) time each day. 90 tablet 1 06/25/2024 documented as of this encounter Discharge Disposition Disposition Code Departure Means Destination Home or Self Care documented in this encounter Progress Notes * Tapan Xavier RN - 07/22/2024 11:00 AM EST Patient arrives via wheelchair accompanied by son for xolair injections. Stable patient assessment.Patient resting comfortably in chair with call dempsey in reach. 1141-Xolair injections administered in 3 separate syringes subq, 2 injections in left arm and 1 injection in right arm. Patient forgoes the observation period in infusion room and waits for transportation downstairs with son. Patient's next appointment scheduled and provided to her. Patient stable upon discharge. documented in this encounter Plan of Treatment Upcoming Encounters Date Type Department Care Team (Latest Contact Info) Description 07/31/2024 10:50 AM EST Anticoagulation - Warfarin Visit Coumadin Clinic - [address] [address] 08/05/2024 11:00 AM EST Appointment [facility] Infusion Center 271 [facility] 2nd [place] [phone] 08/08/2024 10:40 AM EST Office Visit [facility] 154 300 [facility] 154 [place] [phone] Mikael Montoya NP 300 [place] [address] 09/12/2024 10:00 AM EDT Consult Orthopedic Surgery - [place] [address] [phone] Leeroy Schneider DPM [address] [address] 09/26/2024 11:30 AM EDT Office Visit Pulmonolgy - [place] 175 [facility] 200 [place] [phone] Chelsea Shi NP [address] [address] 11/26/2024 11:00 AM EDT Appointment Radiology Department - [address] [phone] documented as of this encounter Visit Diagnoses Diagnosis Moderate asthma without complication, unspecified whether persistent- Primary Encounter for screening mammogram for breast cancer documented in this encounter Administered Medications Inactive Administered Medications - up to 3 most recent administrations Medication Order MAR Action Action Date Dose Rate Site omalizumab (XOLAIR) 375 mg injection (75 mg and 150 mg Syringes) 375 mg, subcutaneous, Once, On 07/22/24 at 1145, For 1 dose, Due to viscosity, the injection may take 5-10 seconds to administer. Do not administer more than 150 mg per injection site. Scan 75 mg syringe first, then scan 150 mg syringes. Given 07/22/2024 11:41 AM EST 375 mg Other documented in this encounter Orders Medications Ordered That Homer ht Not Have Been Administered Count Last Ordered Date First Ordered Date omalizumab (XOLAIR) 375 mg i njection (75 mg and 150 mg Syringes) 1 07/22/2024 documented in this encounter Care Teams Flag Decorator Relationship Specialty Start Date End Date Elizabet Shannon MD [address] [place] [address] PCP - General Internal Medicine 05/06/24 documented as of this encounter
--- OUTSIDE RECORDS SUMMARY | 2024-07-30 11:58 | XMS_ITS | Encounter Summary ---
[facility] Organization [facility] Address [address] [place] [address] Care Team Providers Care Assembler 1St Shift Name Role Phone Elizabet Shannon MD Primary Care Provider [phone] Reason for Visit * Reason Comments Hospital Follow-up Encounter Details Date Type Department Care Team (Late st Contact Info) Description 07/16/2024 1:00 PM EST Office Visit Internal Medicine - [place] 175 [facility] [address] [place] [phone] Elizabet Shannon MD 175 [facility] 200 [place] [address] Acute on chronic heart failure with preserved ejection fraction (CMS/HCC) (Primary Dx); Hospital discharge follow-up; Moderate persistent asthma without complication; History of hypokalemia; Stage 3a chronic kidney disease (CMS/HCC) Social History Tobacco Use Types Packs/Day [...] Sign Reading Time Taken Comments Blood Pressure 118/70 07/16/2024 1:06 PM EST Pulse 72 07/16/2024 1:06 PM EST Temperature - - Respiratory Rate - - Oxygen Saturation 98% 07/16/2024 1:06 PM EST Inhaled Oxygen Concentration - - Weight 74.8 kg (165 lb) 07/16/2024 1:06 PM EST Height - - Body Mass Index 29.23 06/18/2024 4:40 PM EST documented in this encounter Ordered Prescriptions Prescription Sig Dispensed Refills Start Date End Da te fexofenadine (MICHOACANO) 180 mg tablet Take 1 tablet (180 mg total) by mouth 1 (one) time each day if needed (cough). 30 tablet 07/16/2024 08/15/2024 benzonatate (TESSALON) 100 mg capsule Take 1 capsule (100 mg total) by mouth 3 (three) times a day if needed for cough for up to 15 days. Do not crush or chew. 42 capsule 07/16/2024 07/31/2024 predniSONE (DELTASONE) 20 mg tablet Take 2 tablets (40 mg total) by mouth 1 (one) time each day for 5 days. 10 each 07/16/2024 07/21/2024 documented in this encounter Progress Notes * Elizabet Shannon MD - 07/16/2024 1:00 PM EST CHIEF COMPLAINT: Hospital Follow-up IDENTIFIER: Adriana Roldan is a 84 y.o. old female. History of Present Illness The patient is an 84-year-old lady with the following past medical history, who came today for a follow-up visit after a hospital admission and to address the following complaints. She was admitted to [facility] before [place] due to respiratory distress secondary to heart failure, which led to pulmonary edema. She was discharged on 06/25/2024 and subsequently transferred to a rehabilitation center, where she stayed until 07/07/2024. During her hospital stay, she was prescribed quetiapine for a duration of 7 days. Her medication was switched from Lasix to torsemide. She has a scheduled appointment with her coordinator of rehabilitation services on 07/24/2024. Today she complained no respiratory distress. She also have acute asthma exacerbation and she follow-up with pulmonology 1 week ago. This startedwith her on Trelegy Ellipta and prednisone tapering dose. Patient taking it. But still today patient have lots of wheezes in her lung She reports experiencing significant coughing at night, which causes her distress. She manages thisby sleeping in a recliner. She had a consultation with a seismograph helper last week, who prescribed prednisone, of which she has 3 doses remaining. She has been advised to use a spacer with her inhaler. MEDICATIONS Current: Tylenol, quetiapine, torsemide, Trelegy Ellipta, prednisone ROS: As per HPI GENERAL: No malaise, significant weight loss or fever HEENT: No changes in hearing or vision, nose bleeds or other nasal problems NECK: No lumps, goiter, pain or significant neck swelling RESPIRATORY: No cough, wheezing or shortness of breath CARDIOVASCULAR: No chest pain, leg swelling or palpitations BREAST: No lumps, discharge, pain or change in skin GI: No abdominal discomfort, blood in stools or black stools : No dysuria, frequency or incontinence GAS CHARGER: No abnormal vaginal bleeding or abnormal vaginal discharge. MUSCULOSKELETAL: No joint pain or swelling, back pain, or muscle pain. SKIN: No lesions, rash or itching PSYCH: No sleep disturbance, mood disorder or recent psychosocial stressors. HEMATOLOGY/LYMPHOLOGY No prolonged bleeding, easy bruisability or swollen nodes ENDOCRINE: No cold or heat intolerance, polyuria, polydipsia or goiter. NEURO: No persistent headache, syncope, seizures, weakness or numbness The remainder of the review of systems is noncontributory PAST MEDICAL HISTORY: Patient Active Problem List Diagnosis Date Noted Acute on chronic diastolic heart failure ([facility]) 06/25/2024 Shortness of breath 06/19/2024 SOB (shortness of breath) 06/18/2024 Atrial fibrillation ([facility]) 06/04/2024 jail (current) use of anticoagulants 06/04/2024 Moderate asthma without complication 05/08/2024 A-fib ([facility]) 04/14/2024 Benign essential HTN 04/14/2024 (HFpEF) heart failure with preserved ejection fraction ([facility]) 04/14/2024 Dilated aortic root ([facility]) 04/14/2024 PVD (peripheral vascular disease) ([facility]) 04/14/2024 Venous (peripheral) insufficiency 04/14/2024 EMERY (obstructive sleep apnea) 04/14/2024 HLD (hyperlipidemia) 04/14/2024 Past Surgical History: Procedure Laterality Date COLONOSCOPY 2012 [facility] [place]ONE POLYP OTHER SURGICAL HISTORY D&C SOCIAL HISTORY: Social History Tobacco Use Smoking status: Never Smokeless tobacco: Never Substance Use Topics Alcohol use: Never FAMILY HISTORY: Family History Problem Relation Name Age of Onset Cancer Mother abnormal but no colon Other (unknown heart condition) Paternal Grandmother Family Status Relation Name Status Mother (Not Specified) PGM No partnership data on file MEDICATIONS DISCONTINUED/REORDERED: Medications Discontinued During This Encounter Medication Reason QUEtiapine (SEROquel) 25 mg tablet Discontinued by another clinician predniSONE (DELTASONE) 10 mg tablet ACTIVE MEDICATIONS: No outpatient medications have been marked as taking for the 07/16/24 encounter (Office Visit) with Elizabet Shannon MD. ALLERGIES: Allergies Allergen Reactions Cortane-B [[id number]] Lisinopril Simvastatin PHYSICAL EXAM: Visit Vitals BP 118/70 (BP Location: Left arm, Patient Position: Sitting, BP Cuff Size: Large adult) Pulse 72 Wt 74.8 kg (165 lb) SpO2 98% BMI 29.23 kg/m?? Smoking Status Never BSA 1.78 m?? Physical Exam HENT: Head: Normocephalic. Right Ear: External ear normal. Left Ear: External ear normal. Nose: Nose normal. Mouth/Throat: Mouth: Mucous membranes are moist. Pharynx: Oropharynx is clear. Eyes: Conjunctiva/sclera: Conjunctivae normal. Cardiovascular: Rate and Rhythm: Normal rate and regular rhythm. Pulses: Normal pulses. Heart sounds: Normal heart sounds. Pulmonary: Effort: Pulmonary effort is normal. Breath sounds: Wheezing, rhonchi and rales present. Abdominal: General: Bowel sounds are normal. Palpations: Abdomen is soft. Musculoskeletal: General: Normal range of motion. Cervical back: Normal range of motion and neck supple. Skin: General: Skin is warm. Capillary Refill: Capillary refill takes less than 2 seconds. Neurological: General: No focal deficit present. Mental Status: She is alert and oriented to person, place, and time. Mental status is at baseline. Physical Exam Lungs are not normal. Heart sounds normal. LABS/IMAGING: Appointment on 07/16/2024 Component Date Value Ref Range Status Protime 07/16/2024 33.8 (H) 10.6 - 13.9 sec Final INR 07/16/2024 2.7 Final Appointment on 07/11/2024 Component Date Value Ref Range Status Protime 07/11/2024 18.0 (H) 10.6 - 13.9 sec Final INR 07/11/2024 1.4 Final Lab Requisition on 07/04/2024 Component Date Value Ref Range Status Protime 07/04/2024 17.6 (H) 10.6 - 13.9 sec Final INR 07/04/2024 1.4 Final Lab Requisition on 07/01/2024 Component Date Value Ref Range Status Protime 07/01/2024 18.5 (H) 10.6 - 13.9 sec Final INR 07/01/2024 1.5 Final Lab Requisition on 06/27/2024 Component Date Value Ref Range Status WBC 06/27/2024 5.0 4.8 - 10.8 K/mcL Final RBC 06/27/2024 3.90 3.80 - 4.80 M/mcL Final Hemoglobin 06/27/2024 11.5 11.5 - 16.0 g/dL Final Hematocrit 06/27/2024 38.6 35.0 - 47.0 % Final MCV 06/27/2024 99.2 (H) 79.0 - 98.0 FL Final MCH 06/27/2024 29.6 27.0 - 32.0 pcg Final MCHC 06/27/2024 29.8 (L) 32.0 - 37.0 g/dL Final RDW 06/27/2024 13.6 11.0 - 15.0 % Final Platelets 06/27/2024 226 130 - 400 K/mcL Final MPV 06/27/2024 10.7 7.0 - 11.0 FL Final NRBC 06/27/2024 0.0 <1.0 % Final NRBC Absolute 06/27/2024 0.00 <0.10 K/mcL Final Protime 06/27/2024 19.3 (H) 10.6 - 13.9 sec Final INR 06/27/2024 1.5 Final Sodium 06/27/2024 143 133 - 145 mmol/L Final Potassium 06/27/2024 4.3 3.5 - 5.5 mmol/L Final Chloride 06/27/2024 103 96 - 110 mmol/L Final CO2 06/27/2024 38 (H) 21 - 32 mmol/L Final Anion Gap 06/27/2024 2 (L) 3 - 11 Final Glucose 06/27/2024 81 70 - 100 mg/dL Final BUN 06/27/2024 47 (H) 5 - 25 mg/dL Final Creatinine 06/27/2024 1.94 (H) 0.50 - 1.10 mg/dL Final eGFR 06/27/2024 25 (L) >=60 mL/min/1.73m2 Final BUN/Creatinine Ratio 06/27/2024 24.2 Final Calcium 06/27/2024 8.7 8.5 - 10.5 mg/dL Final AST (SGOT) 06/27/2024 28 10 - 42 unit/L Final ALT (SGPT) 06/27/2024 14 10 - 60 unit/L Final Alkaline Phosphatase 06/27/2024 107 42 - 121 unit/L Final Total Protein 06/27/2024 8.1 (H) 6.0 - 8.0 g/dL Final Albumin 06/27/2024 2.7 (L) 3.2 - 5.0 g/dL Final Total Bilirubin 06/27/2024 0.5 0.0 - 1.4 mg/dL Final TSH 06/27/2024 2.33 0.40 - 4.00 mcIU/mL Final No results displayed because visit has over 200 results. Anticoagulation - Warfarin Visit on 06/18/2024 Component Date Value Ref Range Status INR POC 06/18/2024 4.8 Final Anticoagulation - Warfarin Visit on 06/11/2024 Component Date Value Ref Range Status INR POC 06/11/2024 3.8 Final Anticoagulation - Warfarin Visit on 06/04/2024 Component Date Value Ref Range Status INR POC 06/04/2024 2.8 Final Anticoagulation - Warfarin Visit on 05/28/2024 Component Date Value Ref Range Status INR POC 05/28/2024 5.7 Final There may be more visits with results that are not included. Results IMPRESSION: 1. Acute on chronic heart failure with preserved ejection fraction ([facility]/H[facility]) 2. Hospital discharge follow-up 3. Moderate persistent asthma without complication 4. History of hypokalemia 5. Stage 3a chronic kidney disease ([facility]) PLAN: Acute on chronic heart failure with preserved ejection fraction ([facility]) (Primary) Hospital discharge follow-up Moderate persistent asthma without complication - Inhaler Spacer History of hypokalemia Stage 3a chronic kidney disease ([facility]) Other orders - predniSONE (DELTASONE) 20 mg tablet; Take 2 tablets (40 mg total) by mouth 1 (one) time each day for 5 days. Dispense: 10 each; Refill: 0 - benzonatate (TESSALON) 100 mg capsule; Take 1 capsule (100 mg total) by mouth 3 (three) times a day if needed for cough for up to 15 days. Do not crush or chew. Dispense: 42 capsule; Refill: 0 - fexofenadine (MICHOACANO) 180 mg tablet; Take 1 tablet (180 mg total) by mouth 1 (one) time each dayif needed (cough). Dispense: 30 tablet; Refill: 0 Assessment & Plan 1. Congestive Heart Failure - Recently discharged from the hospital after treatment for fluid accumulation in her lungs due to heart failure. Currently on torsemide, switched from furosemide during her hospital stay. - Continue taking torsemide as prescribed - Upcoming appointment with coordinator of rehabilitation services on 01/22/2024, crucial to keep 2. Cough/acute asthma exacerbation- Experiences significant coughing at night, causing distress. Prescribed Trelegy Ellipta and instructed to take 2 puffs in the morning and 2 puffs at night. - Rinse mouth after each use - Spacer will be provided for proper administration - Higher dose of prednisone for 5 days, then discontinue - Prescription for cough tablets to be taken as needed - If cough persists, schedule an appointment with the seismograph helper I have obtained verbal consent from Adriana Roldan prior to the recording. I have advised Adriana Parish that she may refuse the recording and require the recording to be turned off at any time during this encounter. Advised the patient to call me if any problems. Patient understands the plan. Patient is in agreement with the plan. Elizabet Shannon MD on 07/16/2024 at 3:27 PM EST documented in this encounter Plan of Treatment Upcoming Encounters Date Type Department Care Team (Latest Contact Info) Description 07/31/2024 10:50 AM EST Anticoagulation - Warfarin Visit [facility] - [address] [phone] 08/05/2024 11:00 AM EST Appointment [facility] Infusion Center [address] [facility] 2nd [place] [phone] 08/08/2024 10:40 AM EST Office Visit [facility] - [facility] 154 300 [facility] 154 [place] [phone] Mikael Montoya NP 300 [place] [address] 09/12/2024 10:00 AM EDT Consult Orthopedic Surgery - [place] [address] [phone] Leeroy Schneider DPM [address] [address] 09/26/2024 11:30 AM EDT Office Visit Pulmonolgy - [place] 175 [facility] 200 [place] [phone] Chelsea Shi NP 175 [facility] 200 [place] [address] 11/26/2024 11:00 AM EDT Appointment Radiology Department - [address] [phone] documented as of this encounter Visit Diagnoses Diagnosis Acute on chronic heart failure with preserved ejection fraction ([facility]/HCC)- Primary Hospital discharge follow-up Other follow-up examination Moderate persistent asthma without complication History of hypokalemia Stage 3a chronic kidney disease ([facility]) Encounter for screening mammogram for breast cancer documented in this encounter Discontinued Medications Medication Sig Discontinue Reason Start Date End Da te QUEtiapine (SEROquel) 25 mg tablet Take 0.5 tablets (12.5 mg total) by mouth 3 (three) times a day if needed (restlessness) for up to 7 days. Discontinued by another clinician 06/25/2024 07/16/2024 predniSONE (DELTASONE) 10 mg tabletIndications:Sever e persistent asthma with exacerbation ([facility]) Take 3 tablets (30 mg total) by mouth 1 (one) time each day for 3 days, THEN 2 tablets (20 mg total) 1 (one) time each day for 3 days, THEN 1 tablet (10 mg total) 1 (one) time each day for 3 days. 07/11/2024 07/16/2024 documented as of this encounter Orders General Supply Count Last Ordered Date First Or dered Date INHALER SPACER 1 07/16/2024 documented in this encounter Care Teams Assembler 1St Shift Relationship Specialty Start Date End Date Elizabet Shannon MD [address] [place] [address] PCP - General Internal Medicine 05/06/24 documented as of this encounter
--- OUTSIDE RECORDS SUMMARY | 2024-07-30 11:58 | XMS_ITS | Encounter Summary ---
[facility] Address [address] [place] [address] Care Team Providers Care Forestry Laborer Name Role Phone Rishi Lion MD Primary Care Provi [facility] Encounter Details Date Type Department Care Team (Late st Contact Info) Description 04/25/2024 12:53 PM EDT Hospital Encounter TH HISTORIC ENCOUNTERS [facility] [...] Progress Notes * Historical, Notes Results - 04/25/2024 11:30 AM EDT 1250: PT arrives this morning with son for Q 2 week Xolair injections. Did miss last weeks injection and reports sometimes she does have SANCHEZ and feels like it is difficult to take a deep breath. Vitals stable. Pt also continues to report a dry cough, otherwise stable assessment. Pt given a juice and lunch, denies other concerns, call dempsey in reach. ?? 1150: Xolair injection administered well tolerated without [...] Anticoagulation - Warfarin Visit [facility] [address] [phone] 08/05/2024 11:[address] [facility] Infusion Center [address] [facility] 2nd [place] [phone] 08/08/2024 10:40 AM EST Office Visit [facility] - [facility] 154 300 [facility] 154 [place] [phone] Mikael Montoya NP 300 [place] [address] 09/12/2024 10:00 AM EDT Consult Orthopedic Surgery - [place] 250 175 [facility] 250 [place] [phone] Leeroy Schneider DPM 175 [facility] 250 [place] [address] 09/26/2024 11:30 AM EDT Office Visit Pulmonolgy - [place] 175 [facility] 200 [place] [phone] Chelsea Shi NP [address] [address] 11/26/2024 11:00 AM EDT Appointment Radiology Department [address] [phone] documented as of this encounter Visit Diagnoses Not on filedocumented in this encounter Additional Health Concerns Infection Onset Date Last Indicated Resolved Time Respiratory Rule-Out 06/18/2024 06/18/2024 024 5:27 PM EST COVID-19 Rule-Out 06/18/2024 06/18/2024 06/18/2024 5:27 PM EST documented as of this encounter Care Teams Forestry Laborer Relationship Specialty Start Date End Date Rishi Lion MD [address] [place] [address] [place] [address] PCP - General 04/04/24 05/05/24 documented as of this encounter
--- OUTSIDE RECORDS SUMMARY | 2024-07-30 11:58 | XMS_ITS | Encounter Summary ---
[facility] Organization [facility] Address [address] [place] [address] Care Team Providers Care Director Of Business Applications Name Role Phone Elizabet Shannon MD Primary Care Provider [phone] Encounter Details Date Type Department Care Team (Latest Contact Info) Description 07/16/2024 Anticoagulation - Warfarin Visit Coumadin Clinic - [address] [phone] Taya Camacho LPN Atrial fibrillation, 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 (CMS/HCC) (Primary Dx); terminal gauger (current) use of anticoagulants Social History Tobacco [...] Anticoagulation - Warfarin Visit [facility] Clinic - [place] [address] [place] [address] 08/05/2024 11:00 AM EST Appointment [facility] 271 [facility] 2nd [place] [address] 08/08/2024 10:40 AM EST Office Visit [facility] - [facility] 154 300 [facility] 154 [place] [address] Mikael Montoya NP 300 [place] [address] 09/12/2024 10:00 AM EDT Consult Orthopedic Surgery - [place] 250 175 [facility] 250 [place] [address] Leeroy Schneider DPM 175 [facility] 250 [place] [address] 09/26/2024 11:30 AM EDT Office Visit Pulmonolgy - [place] 175 [facility] 200 [place] [phone] Chelsea Shi NP 175 [facility] 200 [place] [address] 11/26/2024 11:00 AM EDT Appointment Radiology Department - [address] [phone] documented as of this encounter Visit Diagnoses Diagnosis Atrial fibrillation, 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 (CMS/HCC)- Primary terminal gauger (current) use of anticoagulants Long-term (current) use of anticoagulants Encounter for screening mammogram for breast cancer documented in this encounter Care Teams Director Of Business Applications Relationship Specialty Start Date End Date Elizabet Shannon MD 175 [facility] 200 [place] [address] PCP - General Internal Medicine 05/06/24 documented as of this encounter
--- OUTSIDE RECORDS SUMMARY | 2024-07-30 11:58 | XMS_ITS | Clinical Summary ---
Author Organization [facility] Address [address] [place] [address] Phone Care Team Providers Care Warehouse Forklift Operator Name Role Phone Amaya Lewis MD Primary Care Provider [phone] Allergies Active Allergy Reactions Criticality Noted Date Comments Digoxin Other (see comments) 08/05/2022 Pt an sson unsure of reaction Nr-Vbykxjdpe-Kyidtfefyj nol Other (see comments) 08/05/2022 Lisinopril 11/15/2022 Simvastatin Other (see comments) 11/15/2022 Medications warfarin (COUMADIN) 2.5 MG tablet 09/28/19 23 Active Tiotropium [place] Monohydrate (Spiriva Respimat) 1.25 MCG/ACT aerosol solution as directed Active montelukast (SINGULAIR) 10 MG tablet 10/18/19 23 Active loratadine (CLARITIN) 10 MG tablet 11/15/19 23 Active levothyroxine (SYNTHROID, LEVOTHROID) 75 MCG tablet 11/15/19 23 Active insulin lispro (HumaLOG) 100 UNIT/ML injection as directed Active glipiZIDE (GLUCOTROL XL) 2.5 MG 24 hr tablet Take 1 tablet by mouth 1 (one) time each day Active Fluticasone-Alan meterol 500-50 MCG/ACT aerosol powder See administration instructions Active ferrous sulfate 325 (65 Fe) MG tablet Comments: Patient Notes: 1 TABLET BY MOUTH ONCE A DAY Duration: 30 Active Enoxaparin Sodium 80 MG/0.8ML solution prefilled syringe 11/01/19 23 Active dilTIAZem CD (CARDIZEM CD) 120 MG 24 hr capsule 11/15/19 23 Active digoxin (LANOXIN) 125 MCG tablet Take 1 tablet by mouth 1 (one) time each day Active cholecalciferol (VITAMIN D-3) 50 MCG (2000 UT) capsule 11/15/19 Active albuterol (5 MG/ML) 0.5% nebulizer solution as directed Active cyanocobalamin (VITAMIN B-12) 1000 MCG tablet 05/23/20 Active Ventolin HFA 108 (90 Base) MCG/ACT inhaler 04/27/20 Active omeprazole (PriLOSEC) [address] capsule 05/23/20 Active furosemide (LASIX) 80 MG tablet TAKE 1 TABLET BY MOUTH DAILY. 28 tablet 07/05/19 24 Active Additional Information Patient not taking.Reported on 05/20/2024 losartan (COZAAR) 25 MG tablet Take 25 mg by mouth 1 (one) time each day Active paricalcitol (ZEMPLAR) 1 MCG capsule Take 1 mcg by mouth 1 (one) time each day Active rosuvastatin (CRESTOR) 10 MG tablet Take 10 mg by mouth 1 (one) time each day Active verapamil SR (CALAN-SR) 180 MG CR tablet Take 180 mg by mouth every night Do not crush or chew. Active mirtazapine (REMERON) 7.5 MG tablet Take 7.5 mg by mouth every night Active furosemide (LASIX) 40 MG tablet TAKE (2) TABLETS BY MOUTH TWICE DAILY IN THE MORNING & EVENING 112 tablet 06/05/20 24 Active Active Problems Problem Noted Date Diagnosed Date Chronic kidney disease, stage 4 (severe) 024 Renal osteodystrophy 06/23/2023 Stage 3b chronic kidney disease 12/29/2022 Type 2 diabetes mellitus wit h diabetic chronic kidney disease 12/29/2022 Venous varices 11/23/2022 Peripheral venous insufficiency 11/23/2022 Paroxysmal atrial fibrillation 11/23/2022 Overview (11/23/2022): on Coumadin per PCP Osteoporosis 11/23/2022 Osteoarthritis 11/23/2022 Pain of knee region 11/23/2022 Hypothyroidism 11/23/2022 Hyperlipidemia 11/23/2022 History of anemia 11/23/2022 Hip pain 11/23/2022 Hemorrhoid 11/23/2022 Family history of alcoholism 11/23/2022 Diverticular disease 11/23/2022 Chronic low back pain 11/23/2022 Cataract extraction status 11/23/2022 Asthma 11/23/2022 Hypertension 11/23/2022 Neuropathy 11/15/2022 Hypokalemia 11/15/2022 Dyslipidemia 11/15/2022 Diabetes mellitus 11/15/2022 Chronic obstructive pulmonary disease 11/15/2022 Chronic kidney disease stage 3 11/15/2022 Obesity 11/15/2022 Benign essential hypertension 09/14/2020 History of SARS-CoV-2 07/01/2020 Overview (08/07/2023): Reported from son's call Ground glass opacity 03/18/2020 Chronic acquired lymphedema 03/31/2019 Overview (08/07/2023): Nodularity of skin on lower leg due to chronic edema Fracture of pubis 12/20/2016 Heart failure with normal ejection fraction 11/25 Cyst of kidney 12/07/2013 Overview (08/07/2023): CT 08/25/11 [place] - right renal parapelvic cyst and smaller complicated cyst stable from 2010; CT 09/2012 - There is a cyst arising from the upper pole of the right kidney, measuring approximately 3.5 cm. It has a density of 5.1 Hounsfield units. There is a second cyst located more posteriorly in the interpolar region of the right kidney. It measures approximately 3 x 1.5 cm, and has a density of fluid. The lesion has small calcifications posterolaterally within the wall. (contrast study recommended but pt's CKD preempts this) Obstructive sleep apnea syndrome 08/12/2013 Overview (08/07/2023): Pulm (dr. Chen) 2012 - PSG with BiPAP 07/25/13 - degree of disordered breathing remained severe with both central and obstructive events. Hypoxemia and hypercapnia were lessened but not corrected. Mouth-breathing was prominent. pulm visit 08/12/13 - Options at this point are for ENT eval to see if there is anything they could do to improve her airway, so that BiPAP might be more successful. We discussed the option of a trach as well. I referred her to ENT for this eval. We also discussed doing nothing more than cont to use her 02 at 2L w CPAP at 16. ENT Dr. Dawson - pt absolutely refused any surgical treatment (trach). Pt not tolerating even CPAP. CT of pelvis abnormal 01/08/2013 Overview (08/07/2023): Adnexal calcifications 2010, Dr. Carmona performed D&C 06/21/11 for thickened endometrium on US Endometrium thickened 09/30/2012 Overview (08/07/2023): Also on MRI 12/2014. Pasteuriser Operator - endometrial bx 03/16/15 - benign Nephrolithiasis 09/13/2012 Overview (08/07/2023): Per old recrods, 10/05/2005 Aortic root dilatation 09/05/2012 Overview (08/07/2023): According to cardiac note. Followed by Dr. Chan at [facility]. History of polyp of colon 07/18/2012 Overview (08/07/2023): Colonoscopy Dr. Bob [place] 08/12/11 -small cecal polyp: tubular adenoma. Consider next exam 2016. Encounters Date Type Department Care Team Description 06/05/2024 Refill [facility] [address] [place] [address] Jose Hardy MD 06/03/2024 Orders Only [facility] [address] [place] [address] Jose Hardy MD Chronic kidney disease, stage 4 (severe) (HCC); Type 2 diabetes mellitus with diabetic chronic kidney disease (HCC); Renal osteodystrophy 05/21/2024 Orders Only [facility] [address] [place] [address] Jose Hardy MD Chronic kidney disease, stage 4 (severe) (HCC); Type 2 diabetes mellitus with diabetic chronic kidney disease (HCC); Renal osteodystrophy 05/20/2024 2:15 PM EST Office Visit [facility] [address] [place] [address] Jose Hardy MD Chronic kidney disease, stage 4 (severe) (HCC) (Primary Dx); Type 2 diabetes mellitus with diabetic chronic kidney disease (HCC); Renal osteodystrophy 05/09/2024 Refill [facility] [address] [place] [address] Jose Hardy MD from Last 3 Months Immunizations Name Administration Dates Next Due Influenza Split 04/02/2012 Influenza Split High Dose Pr eservative Free IM 04/11/2022,03/15/2021,04/12/2016,03/05,03/31/2014,04/01/2013,04/02/2012 Influenza, MDCK, PF, Quadrivalent 05/29/2018 Influenza, Unspecified 03/31/2014,04/01/2013 Moderna SARS-COV-2 09/22/2020,08/25/2020 Pneumococcal Conjugate 13-Valent 05/29/2018 Pneumococcal Polysaccharide 10/06/2016, 3,10/04/2006 Td 07/20/2021,10/04/2006 Family History Medical History Relation Comments Diabetes Father Cancer Mother Relation Status Comments Father Unknown Mother Unknown Social History Tobacco Use Types Packs/Day Years Used Date Smoking Tobacco: Never Passive Smoke Exposure: Never Smokeless Tobacco: Never Tobacco Cessation:Counseling Given: No Alcohol Use Standard Drinks/Week Comments No 0 (1 standard drink = 0.6 oz pur e alcohol) Comments Unknown Sex and Gender Information Value Date Recorded Sex Assigned at Not on file Legal Sex Female 5:12 PM EST Gender Identity Not on file Sexual Orientation Not on file Last Filed Vital Signs Vital Sign Reading Time Taken Comments Blood Pressure 122/80 05/20/2024 1:06 PM EST Pulse 66 05/20/2024 1:06 PM EST Temperature - - Respiratory Rate - - Oxygen Saturation 95% 05/20/2024 1:06 PM EST Inhaled Oxygen Concentration - - Weight 65.4 kg (144 lb 3.2 oz) 05/20/2024 1:06 P M EST Height - - Body Mass Index - - Plan of Treatment Upcoming Encounters Date Type Department Care Team (Late st Contact Info) Description 11/21/2024 2:30 PM EDT Office Visit [facility] [address] [place] [phone] Jose Hardy MD [address] [facility] [address] [place] [phone] Health Maintenance Due Date Last Done Comments Diabetes: Hemoglobin A1C 01/04/2021 Diabetes: Ophthalmology Exam 01/04/2021 Diabetes: Pedal Pulse Checked 01/04/2021 Diabetes: Sensory Foot Exam 01/04/2021 Diabetes: Visual Foot Exam 01/04/2021 Influenza Vaccine (#1) 2024 2, 03/15/2021, 05/29/2018, Additional history exists Pneumococcal Vaccine: 65+ Years Completed 05/29/2018, 10/06/2016, 10/02/2012, Additional history exists Hepatitis B Vaccine Aged Out No longe r eligible based on patient's age to complete this topic Insurance [address] [place] [id number] [facility] ([id number]) [facility] ([id number]) Care Teams Warehouse Forklift Operator Relationship Specialty Start Date End Date Amaya Lewis MD [address] [place] PCP - General Internal Medicine 05/20/24
--- OUTSIDE RECORDS SUMMARY | 2024-07-30 11:58 | XMS_ITS | Encounter Summary ---
Author Organization [facility] Address [address] [place] [address] Care Team Providers Care Fiber Optic Assembler Name Role Phone Elizabet Shannon MD Primary Care Provider [phone] Reason for Visit * Reason Onset Date Comments [facility]NA 06/10/2024 Encounter Details Date Type Department Care Team ([facility] st Contact Info) Description 06/10/2024 Telephone Internal Medicine - [place] [address] [facility] [address] [place] [phone] Elizabet Shannon MD 175 [facility] [address] [place] [address] VNA Social History Tobacco Use Types Packs/Day Years [...] as of this encounter Progress Notes * Shalini Massey RN - 06/11/2024 9:44 AM EST FYI from [facility] yesterday - Buddy calling to report weight gain (was 167 on 06/05 and as of 06/10 it is176) Pt had appt in the office yesterday. Will send FYI to Dr. Shannon. * Yadira Brownlee RN - 06/10/2024 12:38 PM EST Call to Buddy from [employer] # [phone], left message to call back * Chepe Nye - 06/10/2024 12:07 PM EST VNA CALL Which A office is calling? [facility] Full name of caller: Buddy The caller is a nurse Is the caller at the patients home?: YES Reason for call: Buddy calling to report weight gain (was 167 on 06/05 and as of 06/10 it is 176) Does caller need an urgent call back? NO Was CONTACT Telephone # obtained above?: YES Fax #: N/A documented in this encounter Plan of Treatment Upcoming Encounters Date Type Department Care Team (Latest Contact Info) Description 07/31/2024 10:50 AM EST Anticoagulation - [facility] [address] [address] 08/05/2024 11:00 AM EST Appointment [facility] [address] [facility] [address] [place] [phone] 08/08/2024 10:40 AM EST Office Visit [facility] [address] [facility] [address] [place] [phone] Mikael Montoya NP [address] [place] [address] 09/12/2024 10:00 AM EDT Consult Orthopedic Surgery - [place] [address] [facility] [address] [place] [phone] Leeroy Schneider, ANDREW [address] [facility] [address] [place] [address] 09/26/2024 11:30 AM EDT Office Visit Pulmonolgy - [place] [address] [facility] [address] [place] [address] Chelsea Shi NP 175 [facility] [address] [place] [address] 11/26/2024 11:00 AM EDT Appointment Radiology Department - [address] [address] documented as of this encounter Visit Diagnoses Not on filedocumented in this encounter Additional Health Concerns Infection Onset Date Last Indicated Resolved Time Respiratory Rule-Out 06/18/2024 06/18/2024 024 5:27 PM EST COVID-19 Rule-Out 06/18/2024 06/18/2024 06/18/2024 5:27 PM EST documented as of this encounter Care Teams Fiber Optic Assembler Relationship Specialty Start Date End Date Elizabet Shannon MD [address] [address] PCP - General Internal Medicine 05/06/24 documented as of this encounter
--- OUTSIDE RECORDS SUMMARY | 2024-07-30 11:58 | XMS_ITS | Clinical Summary ---
Author Organization [address] [place] [address] Address [address] [facility] [place] [address] Phone Care Team Providers Care Warp Tying Machine Tender Name Role Phone Elizabet Shannon MD Primary Care Provider [phone] Allergies Active Allergy Reactions Criticality Noted Date Comments Gjbmxbioa-Jo-Jofztbvejtoqw Lisinopril 04/14/2024 Simvastatin 04/14/2024 Medications Medication Sig Dispensed Refills Start Date End Date Status ferrous sulfate 325 mg (65 mg elemental iron) tablet Take 1 tablet (325 mg total) by mouth 1 (one) time each day with breakfast. Active dilTIAZem CD (CARDIZEM CD) 240 mg 24 hr capsule Take 1 capsule (240 mg total) by mouth 1 (one) time each day. Active levothyroxine (SYNTHROID, LEVOTHROID) 75 mcg tablet Take 1 tablet (75 mcg total) by mouth 1 (one) time each day before breakfast. Active montelukast (SINGULAIR) 10 mg tablet Take 1 tablet (10 mg total) by mouth at bedtime. Active omeprazole (PriLOSEC) [address] capsule Take 1 capsule (20 mg total) by mouth 1 (one) time each day. Do not crush or chew. Active cyanocobalamin (VITAMIN B-12) 1,000 mcg tablet Take 1 tablet (1,000 mcg total) by mouth 1 (one) time each day. Active cholecalciferol (VITAMIN D-3) 50 mcg (2,000 unit) tablet Take 1 tablet (2,000 Units total) by mouth 1 (one) time each day. Active warfarin (COUMADIN) 5 mg tablet Take 0.5 tablets (2.5 mg total) by mouth 1 (one) time each day. 90 tablet 1 4 Active acetaminophen (TYLENOL) 500 mg tablet TAKE 1 TABLET BY MOUTH EVERY 6 HOURS NEEDED FOR PAIN 30 tablet 1 5 Active torsemide (DEMADEX) 20 mg tablet Take 2 tablets (40 mg total) by mouth 2 (two) times daily morning and afternoon. 120 each 11 5 07/11/19 26 Active Trelegy Ellipta 100-62.5-25 mcg inhaler Inhale 1 puff (100 mcg total) by mouth 1 (one) time each day. 60 each 1 5 Active albuterol 2.5 mg /3 mL (0.083 %) nebulizer solutionIndicati ons:Severe persistent asthma with exacerbation (CMS/HCC) Take 3 mL (2.5 mg total) by nebulization every 4 (four) hours if needed for wheezing. 75 mL 3 5 07/11/19 26 Active albuterol HFA (Ventolin HFA) 90 mcg/actuation inhalerIndicatio ns:Severe persistent asthma with exacerbation (CMS/HCC) Inhale 2 puffs by mouth every 4 (four) hours if needed for wheezing or shortness of breath. 8 g 5 5 01/08/20 25 Active loratadine (CLARITIN) 10 mg tablet TAKE 1 TABLET BY MOUTH DAILY. 28 tablet 5 Active benzonatate (TESSALON) 100 mg capsule Take 1 capsule (100 mg total) by mouth 3 (three) times a day if needed for cough for up to 15 days. Do not crush or chew. 42 capsule 5 07/31/19 25 Active fexofenadine (MICHOACANO) 180 mg tablet Take 1 tablet (180 mg total) by mouth 1 (one) time each day if needed (cough). 30 tablet 5 08/15/19 25 Active loratadine (CLARITIN) 10 mg tablet TAKE 1 TABLET BY MOUTH DAILY. 28 tablet 4 07/16/19 25 Discontinued albuterol HFA (Ventolin HFA) 90 mcg/actuation inhaler Inhale 2 puffs by mouth every 4 (four) hours if needed for wheezing or shortness of breath. 8 g 5 4 07/11/19 25 Discontinued(Re order) Trelegy Ellipta 100-62.5-25 mcg inhaler Inhale 1 puff (100 mcg total) by mouth 1 (one) time each day. 60 each 1 4 07/10/19 Discontinued(Re order) acetaminophen (TYLENOL) 325 mg tablet Take 2 tablets (650 mg total) by mouth every 6 (six) hours if needed for mild pain for up to 10 days. 30 tablet 07/05/19 QUEtiapine (SEROquel) 25 mg tablet Take 0.5 tablets (12.5 mg total) by mouth 3 (three) times a day if needed (restlessness) for up to 7 days. 07/16/19 Discontinued(Di scontinued by another clinician) torsemide (DEMADEX) 20 mg tablet Take 2 tablets (40 mg total) by mouth 2 (two) times daily morning and afternoon. 120 each 11 4 07/10/19 Discontinued(Re order) predniSONE (DELTASONE) 10 mg tabletIndication s:Severe persistent asthma with exacerbation (CMS/[facility]) Take 3 tablets (30 mg total) by mouth 1 (one) time each day for 3 days, THEN 2 tablets (20 mg total) 1 (one) time each day for 3 days, THEN 1 tablet (10 mg total) 1 (one) time each day for 3 days. 18 each 5 07/16/19 25 Discontinued predniSONE (DELTASONE) 20 mg tablet Take 2 tablets (40 mg total) by mouth 1 (one) time each day for 5 days. 10 each 5 07/21/19 Active Problems Problem Noted Date Diagnosed Date Acute on chronic diastolic heart failure 024 Shortness of breath 06/19/2024 SOB (shortness of breath) 06/18/2024 Atrial fibrillation 06/04/2024 FPC (current) use of anticoagulants 2023 Moderate asthma without complication 05/08/2024 A-fib 04/14/2024 Assessment & Plan (05/06/2024 1:30 PM EST): Patient is in A-fib at the office today. Vent rate is 61 bpm. Also currently anticoagulated on Coumadin and warfarin. No falls recently. No abnormal bleeding. Patient has a CHADS2 Vascor of 5. Should remain anticoagulated. Orders: Lipid panel; Future B-type natriuretic peptide; Future Basic metabolic panel; Future Transthoracic echocardiogram (TTE) complete with PRN contrast, bubble, strain, and 3D order panel; Future Lipid panel ECG 12 lead Benign essential HTN 04/14/2024 (HFpEF) heart failure with preserved ejection fr action 04/14/2024 Assessment & Plan (05/06/2024 1:30 PM EST): Patient's most recent echocardiogram was in 2021, would like to update this. Will order transthoracic echocardiogram to be completed in the next 3 months. Patient seems to have some fluid overload due to lower extremity edema although this is hard to determine because she has longstanding history of chronic venous insufficiency. Patient will be asked to take weights specifically at the same time each day in the same manner and report values to the office in 1 week. Will titrate furosemide dose based on those results. Would also like to wait for updated labs. Will order BNP, BMP. She has been educated to avoid sodium intake. Orders: Lipid panel; Future B-type natriuretic peptide; Future Basic metabolic panel; Future Transthoracic echocardiogram (TTE) complete with PRN contrast, bubble, strain, and 3D order panel; Future Lipid panel Dilated aortic root 04/14/2024 PVD (peripheral vascular disease) 04/14/2024 Assessment & Plan (05/06/2024 1:30 PM EST): Longstanding history of peripheral vascular disease. Has been educated to adhere to a cardiac healthy diet. Patient currently taking rosuvastatin. Will update lipid profile. Orders: Lipid panel; Future B-type natriuretic peptide; Future Basic metabolic panel; Future Transthoracic echocardiogram (TTE) complete with PRN contrast, bubble, strain, and 3D order panel; Future Lipid panel Venous (peripheral) insufficiency 04/14/2024 EMERY (obstructive sleep apnea) 04/14/2024 HLD (hyperlipidemia) 04/14/2024 Assessment & Plan (05/06/2024 1:30 PM EST): We will update lipid profile. Patient currently taking rosuvastatin. Educated to adhere to a cardiac healthy diet. Orders: Lipid panel; Future B-type natriuretic peptide; Future Basic metabolic panel; Future Transthoracic echocardiogram (TTE) complete with PRN contrast, bubble, strain, and 3D order panel; Future Lipid panel Encounters Date Type Department Care Team Description 07/26/2024 11:00 AM EST Anticoagulation - Warfarin Visit Coumadin [address] [phone] Atrial fibrillation, 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 (CMS/HCC) (Primary Dx); FPC (current) use of anticoagulants 07/26/2024 Telephone Pulmonolgy - [place] [facility] 200 [place] [phone] Graciela Mckinley MA DME request 07/23/2024 11:00 AM EST Anticoagulation - Warfarin Visit Coumadin [address] [phone] Atrial fibrillation, 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 (CMS/HCC) (Primary Dx); long term care social worker (current) use of anticoagulants 07/23/[address] [phone] Felicita Alvarado LPN 07/22/2024 11:00 AM EST - 07/22/2024 11:59 PM EST Hospital Encounter [facility] [address] [facility] 2nd [place] [phone] Evangelina Lou MD Moderate asthma without complication, unspecified whether persistent (Primary Dx) Discharge Disposition: Home or Self Care 07/22/2024 Telephone [facility] 154 300 [facility] 154 [place] [phone] Mikael Montoya NP ECHOCARDIOGRAM 07/16/2024 1:00 PM EST Office Visit Internal Medicine - [place] 175 [facility] 200 [place] [phone] Elizabet Shannon MD Acute on chronic heart failure with preserved ejection fraction (CMS/HCC) (Primary Dx); Hospital discharge follow-up; Moderate persistent asthma without complication; History of hypokalemia; Stage 3a chronic kidney disease (CMS/HCC) 07/16/2024 Anticoagulation - Warfarin Visit Cou[facility]in Clinic [address] [address] Taya Camacho LPN Atrial fibrillation, 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 (CMS/HCC) (Primary Dx); long term care social worker (current) use of anticoagulants 07/15/2024 Telephone Internal Medicine - [address] [phone] Janet Mcleod MA Request For Order(s) ([facility] Cert 06/03/24-08/01/24 Plan Of Care /) 07/12/2024 Anticoagulation - Warfarin Visit Cou[facility] Clinic [address] [phone] Felicita Alvarado LPN Atrial fibrillation, 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 (CMS/HCC) (Primary Dx); FPC (current) use of anticoagulants 07/11/2024 1:20 PM EST Office Visit Pulmon[address] [phone] Chelsea Shi NP Severe persistent asthma with exacerbation (CMS/HCC) (Primary Dx); EMERY (obstructive sleep apnea); Acute on chronic diastolic heart failure (CMS/HCC); Chronic atrial fibrillation (CMS/HCC) 07/11/2024 Telephone Internal Medicine - [place] [address] [address] Elizabet Shannon MD Med Refill 07/08/[address] [phone] Chelsea Shi NP Hospital Follow-up 07/05/2024 Lab Requisition [facility] 299 [facility] [place] [phone] Bruce Petersen MD Unspecified atrial fibrillation (CMS/HCC); Other thrombophilia ([facility]/HCC) 07/03/2024 Lab Requisition [facility] [address] [place] [phone] Bruce Petersen MD Other thrombophilia ([facility]/HCC); FPC (current) use of anticoagulants 06/28/2024 Lab Requisition [facility] [address] [place] [phone] Ricardo Rhodes MD Unspecified atrial fibrillation (CMS/HCC); Other thrombophilia ([facility]/HCC) 06/27/2024 Lab Requisition [facility] [address] [place] [phone] Bruce Petersen MD Hypothyroidism, unspecified; Acute kidney failure, unspecified (CMS/HCC); Heart failure, unspecified ([facility]/HCC); Essential (primary) hypertension; Unspecified atrial fibrillation ([facility]/HCC) 06/18/2024 2:23 PM EST - 06/25/2024 11:31 AM EST Hospital Encounter [facility] [address] [place] [phone] Delroy Moses MD Ishtiaq, Rizwan, MD Surendran, Anupama, MD Santoyo-Pach eco, Omar D, MD Shortness of breath (Primary Dx); Pneumonia of both lungs due to infectious organism, unspecified part of lung; SOB (shortness of breath); Acute on chronic heart failure with preserved ejection fraction ([facility]/HCC) Discharge Disposition: Long-Term Facility 06/18/2024 1:30 PM EST Anticoagulation - Warfarin Visit Coumadin Clinic [facility] 175 175 [place] [phone] Atrial fibrillation, 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 ([facility]) (Primary Dx); FPC (current) use of anticoagulants 06/18/2024 1:00 PM EST Office Visit Pulmonolgy - [place] [address] [facility] [address] [place] [address] Chelsea Shi NP Longstanding persistent atrial fibrillation (CMS/HCC) (Primary Dx); Chronic heart failure with preserved ejection fraction (CMS/HCC); EMERY (obstructive sleep apnea); Moderate persistent asthma without complication; Cough with hemoptysis 06/11/2024 11:10 AM EST Anticoagulation - Warfarin Visit [facility] [address] [phone] Atrial fibrillation, 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 (CMS/HCC) (Primary Dx); long term care social worker (current) use of anticoagulants 06/10/2024 1:45 PM EST Office Visit Internal Medicine [facility] [address] [phone] Elizabet Shannon MD Hospital discharge follow-up (Primary Dx); Chronic heart failure with preserved ejection fraction (CMS/HCC); Moderate persistent asthma without complication; Atrial fibrillation, 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 (CMS/HCC); EMERY (obstructive sleep apnea); Mixed hyperlipidemia; FPC (current) use of anticoagulants; PVD (peripheral vascular disease) (CMS/HCC); Benign essential HTN; Dilated aortic root (CMS/HCC); Nail problem; Dependent lymphedema 06/10/2024 Telephone Internal Medicine [facility] [address] [phone] Eliazbet Shannon MD VNA 06/05/2024 11:00 AM EST - 06/05/2024 11:59 PM EST Hospital Encounter [facility] [address] [phone] Moderate asthma without complication, unspecified whether persistent (Primary Dx) Discharge Disposition: Home or Self Care 06/04/2024 11:00 AM EST Anticoagulation - Warfarin Visit Coumadin Clinic [address] [phone] Atrial fibrillation, 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 (CMS/HCC) (Primary Dx); FPC (current) use of anticoagulants 06/03/2024 Telephone Internal Medicine [facility] [address] [phone] Elizabet Shannon MD Hospital Follow-up 06/03/2024 Telephone Internal Medicine - [place] [address] [phone] Elizabet Shannon MD Appointment (Appt today start of care with Nuha GUILLEN) 06/03/2024 Telephone Internal Medicine [facility] [address] [phone] Elizabet Shannon MD VNA 05/28/2024 11:00 AM EST - 05/28/2024 11:59 PM EST Hospital Encounter [address] [phone] Moderate persistent asthma with acute exacerbation Discharge Disposition: Home or Self Care 05/28/2024 10:30 AM EST Anticoagulation - Warfarin Visit Cou[facility]in Clinic [address] [phone] Atrial fibrillation, 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 (CMS/HCC) (Primary Dx); PVD (peripheral vascular disease) (CMS/HCC); long term care social worker (current) use of anticoagulants 05/22/2024 11:00 AM EST - 05/22/2024 11:59 PM EST Hospital Encounter [facility] 271 [facility] [address] [place] [phone] Moderate asthma without complication, unspecified whether persistent (Primary Dx) Discharge Disposition: Home or Self Care 05/17/2024 10:10 AM EST [facility] [address] [phone] Chelsea Shi NP Moderate persistent asthma with acute exacerbation (Primary Dx); Tracheomalacia, acquired; EMERY (obstructive sleep apnea); Chronic heart failure with preserved ejection fraction (CMS/HCC); Obesity (BMI 30.0-34.9) 05/15/2024 [facility] [address] [phone] Chelsea Shi NP PROVIDER CALL BACK 05/13/2024 Telephone [facility] 154 300 [facility] 154 [place] [phone] Mikael Montoya NP 05/10/2024 Telephone [facility] [address] [place] [address] Mikael Montoya NP 05/09/2024 11:25 AM EST - 05/09/2024 11:59 PM EST Hospital Encounter [facility] [address] [facility] 2nd [place] [phone] Moderate asthma without complication, unspecified whether persistent (Primary Dx) Discharge Disposition: Home or Self Care 05/09/2024 Lab Requisition [facility] 299 [facility] [place] [address] Mikael Montoya NP Mixed hyperlipidemia; Peripheral vascular disease, unspecified (CMS/HCC); Chronic diastolic (congestive) heart failure (CMS/HCC); Longstanding persistent atrial fibrillation (CMS/HCC) 05/08/2024 11:00 AM EST Anticoagulation - Warfarin Visit Coumadin Clinic [address] [address] Atrial fibrillation, 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 (CMS/HCC) (Primary Dx); long term care social worker (current) use of anticoagulants 05/08/2024 Telephone Pulmonolgy - [place] [address] [facility] 200 [place] [address] Chelsea Shi NP Request For Order(s) (Please enter Therapy Plan for Omalizumab (Xolair) 150MG injection /Sig: Inject 375mg into the skin every 14 days/Refills: 11 Patient is here on 05/09/24) 05/07/2024 Telephone Internal Medicine - [place] [address] [facility] 200 [place] [address] Lorie Gamez MA Faxed order (Home Care Delivered) 05/06/2024 12:40 PM EST Office Visit [facility] [address] [facility] [address] [place] [phone] Mikael Montoya NP Longstanding persistent atrial fibrillation (CMS/HCC) (Primary Dx); Chronic heart failure with preserved ejection fraction (CMS/HCC); PVD (peripheral vascular disease) (CMS/HCC); Moderate mixed hyperlipidemia not requiring statin therapy 04/30/2024 11:00 AM EST Anticoagulation - Other Visit (DOAC) Coumadin [address] [phone] from Last 3 Months Surgical History Surgery Date Site/Laterality Comments COLONOSCOPY 06/26/2011 - 06/25/2012 [facility]ONE POLYP OTHER SURGICAL HISTORY D&C Medical History Medical History Date Comments HTN (hypertension) Dilated aortic root (CMS/HCC) PAF (paroxysmal atrial fibrillation) (CMS/HCC) Sleep apnea Osteopenia DJD (degenerative joint disease) Chronic shoulder pain Asthma Acquired tracheomalacia Heart failure with preserved ejection fraction ( CMS/HCC) CKD (chronic kidney disease) stage 3, GFR 30-59 ml/min (CMS/HCC) Family History Medical History Relation Name Comments Cancer Mother abnormal but no colon unknown heart condition Paternal Grandmother Relation Name Status Comments Mother Paternal Grandmother Social History Tobacco Use Types Packs/Day Years [...] file Not on file Not on file Obstetrics History Last Filed Vital Signs Vital Sign Reading Time Taken Comments Blood Pressure 104/65 07/22/2024 11:07 AM EST Pulse 96 07/22/2024 11:07 AM EST Temperature 36.9 ??C (98.4 ??F) 07/22/2024 11:[address] Respiratory Rate 20 07/22/2024 11:07 AM EST Oxygen Saturation 98% 07/22/2024 11:07 AM EST Inhaled Oxygen Concentration - - Weight 74.8 kg (165 lb) 07/16/2024 1:06 PM EST Height 160 cm (5' 3 ) 06/18/2024 4:40 PM EST Body Mass Index 29.23 06/18/2024 4:40 PM EST Plan of Treatment Upcoming Encounters Date Type Department Care Team (Latest Contact Info) Description 07/31/2024 10:50 AM EST Anticoagulation - Warfarin Visit Coumadin Clinic - [address] [phone] 08/05/2024 11:00 AM EST Appointment [facility] [address] [facility] 2nd [place] [phone] 08/08/2024 10:40 AM EST Office Visit [facility] 154 300 [facility] 154 [place] [phone] Mikael Montoya NP 300 [place] [address] 09/12/2024 10:00 AM EDT Consult Orthopedic Surgery - [place] [address] [facility] 250 [place] [phone] Leeroy Schneider, ANDREW 175 [facility] 250 [place] [address] 09/26/2024 11:30 AM EDT Office Visit Pulmonolgy - [place] 175 [facility] 200 [place] [phone] Chelsea Shi NP 175 [facility] 200 [place] [address] 11/26/2024 11:00 AM EDT Appointment Radiology Department - [address] [phone] Health Maintenance Due Date Last Done Comments Diabetes: Annual Foot Exam 1950 Diabetes: Annual Retina Eye Exam 1950 Zoster Vaccines (1 of 2) 1990 RSV Immunization Patients 60+ Years Old (1 - 1-dose 75+ series) 2015 COVID-19 Vaccine (3 - Moderna risk series) 10/20/2020 09/22/2020, 08/25/2020 Colorectal Cancer Screening: Colonoscopy 05/29/2022 Depression Screening 05/29/2022 Osteoporosis Screening (Bone Density Screening) 05/29/2022 Social Influencers of Health Screening 05/29/2022 Diabetes: Annual Urine Albumin-Creatinine Ratio (uACR) 07/20/2022 Diabetes: Blood Sugar Control Test (HGBA1C) 07/20/2022 Diabetes: Annual GFR (Glomerular Filtration Rate) 06/27/2025 06/27/2024, 06/24/2024, 06/22/2024, Additional history exists Hypertension/CHF/CAD Annual BMP Blood Test 06/27/2025 06/27/2024, 06/24/2024, 06/22/2024, Additional history exists Falls Risk Assessment 07/22/2025 07/22/2024 Cholesterol Screening (Lipid Panel) 05/09/2029 05/09/2024 DTaP,Tdap,and Td Vaccines (3 - Td or Tdap) 07/20/2031 07/20/2021, 10/04/2006 Pneumococcal Vaccine: 65+ Years Completed 05/29/2018, 10/06/2016, 10/02/2012, Additional history exists Influenza Vaccine Completed 05/29/2024, , 03/15/2021, Additional history exists HIB Vaccines Aged Out No longer eligi ble based on patient's age to complete this topic HPV Vaccines Aged Out No longer eligi ble based on patient's age to complete this topic Hepatitis A Vaccines Aged Out No long er eligible based on patient's age to complete this topic Hepatitis B Vaccines Aged Out No long er eligible based on patient's age to complete this topic IPV Vaccines Aged Out No longer eligi ble based on patient's age to complete this topic MMR Vaccines Aged Out No longer eligi ble based on patient's age to complete this topic Meningococcal ACWY Vaccine Aged Out N o longer eligible based on patient's age to complete this topic RSV Immunization Patients Under 20 months Aged Out No longer eligible based on patient's age to complete this topic Varicella Vaccines Aged Out No longer eligible based on patient's age to complete this topic Procedures Procedure Name Priority Date/Time Associated Diagnosis Comments POC PROTIME INR BLOOD Routine 07/26/2024 Atrial fibrillation, 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 (CMS/HCC) FPC (current) use of anticoagulants PROTHROMBIN TIME WITH INR STAT 07/23/2024 11:35 AM EST Chronic atrial fibrillation (CMS/HCC) PVD (peripheral vascular disease) (CMS/HCC) FPC (current) use of anticoagulants PROTHROMBIN TIME WITH INR Routine 07/16/2024 12:41 PM EST Atrial fibrillation, 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 (CMS/HCC) long term care social worker (current) use of anticoagulants PVD (peripheral vascular disease) (CMS/HCC) PROTHROMBIN TIME WITH INR Routine 07/11/2024 1:11 PM EST Atrial fibrillation, 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 (CMS/HCC) long term care social worker (current) use of anticoagulants PVD (peripheral vascular disease) (CMS/HCC) PROTHROMBIN TIME WITH INR Routine 07/04/2024 8:20 AM EST Other thrombophilia (CMS/HCC) FPC (current) use of anticoagulants PROTHROMBIN TIME WITH INR Routine 07/01/2024 7:21 AM EST Unspecified atrial fibrillation (CMS/HCC) Other thrombophilia (CMS/HCC) THYROID STIMULATING HORMONE Routine 06/27/2024 8:37 AM EST Hypothyroidism, unspecified Acute kidney failure, unspecified (CMS/HCC) Heart failure, unspecified (CMS/HCC) Essential (primary) hypertension Unspecified atrial fibrillation (CMS/HCC) COMPREHENSIVE METABOLIC PANEL Routine 06/27/2024 8:37 AM EST Hypothyroidism, unspecified Acute kidney failure, unspecified (CMS/HCC) Heart failure, unspecified (CMS/HCC) Essential (primary) hypertension Unspecified atrial fibrillation (CMS/HCC) PROTHROMBIN TIME WITH INR Routine 06/27/2024 8:37 AM EST Hypothyroidism, unspecified Acute kidney failure, unspecified (CMS/HCC) Heart failure, unspecified (CMS/HCC) Essential (primary) hypertension Unspecified atrial fibrillation (CMS/HCC) COMPLETE BLOOD COUNT Routine 06/27/2024 8:37 AM EST Hypothyroidism, unspecified Acute kidney failure, unspecified (CMS/HCC) Heart failure, unspecified (CMS/HCC) Essential (primary) hypertension Unspecified atrial fibrillation (CMS/HCC) LAVENDER - EDTA Routine 06/25/2024 7:05 AM EST EXTRA TUBES Routine 06/25/2024 7:05 AM EST SST - GOLD Routine 06/25/2024 7:03 AM EST EXTRA TUBES Routine 06/25/2024 7:03 AM EST PROTHROMBIN TIME WITH INR Routine 06/25/2024 7:02 AM EST CBC WITH AUTO DIFFERENTIAL Routine 06/24/2024 6:47 AM EST CBC AND DIFFERENTIAL Routine 06/24/2024 6:47 AM EST BASIC METABOLIC PANEL Routine 06/24/2024 6:47 AM EST PROTHROMBIN TIME WITH INR Routine 06/24/2024 6:47 AM EST LAVENDER - EDTA Routine 06/23/2024 5:30 AM EST EXTRA TUBES Routine 06/23/2024 5:30 AM EST SST - GOLD Routine 06/23/2024 5:30 AM EST EXTRA TUBES Routine 06/23/2024 5:30 AM EST PROTHROMBIN TIME WITH INR Routine 06/23/2024 5:30 AM EST ECG 12-LEAD Routine 06/23/2024 5:12 AM EST B-TYPE NATRIURETIC PEPTIDE Routine 06/22/2024 7:07 AM EST MAGNESIUM Routine 06/22/2024 7:07 AM EST BASIC METABOLIC PANEL Routine 06/22/2024 7:07 AM EST PROTHROMBIN TIME WITH INR Routine 06/22/2024 7:07 AM EST CBC WITH AUTO DIFFERENTIAL Routine 06/21/2024 6:27 AM EST PROTHROMBIN TIME WITH INR Routine 06/21/2024 6:27 AM EST CBC AND DIFFERENTIAL Routine 06/21/2024 6:27 AM EST BASIC METABOLIC PANEL Routine 06/21/2024 6:27 AM EST XR CHEST 2 VIEWS Routine 06/20/2024 12:3 0 PM EST TRANSTHORACIC ECHOCARDIOGRAM (TTE) COMPLETE W/ CONTRAST Routine 06/20/2024 10:19 AM EST SOB (shortness of breath) Acute on chronic heart failure with preserved ejection fraction (CMS/HCC) POCT GLUCOSE BLOOD Routine 06/20/2024 8: 28 AM EST POCT GLUCOSE BLOOD Routine 06/20/2024 8: 05 AM EST CBC WITH AUTO DIFFERENTIAL Routine 06/20/2024 5:58 AM EST PROTHROMBIN TIME WITH INR Routine 06/20/2024 5:58 AM EST CBC AND DIFFERENTIAL Routine 06/20/2024 5:58 AM EST BASIC METABOLIC PANEL Routine 06/20/2024 5:58 AM EST POCT GLUCOSE BLOOD Routine 06/19/2024 8: 48 PM EST POCT GLUCOSE BLOOD Routine 06/19/2024 3: 03 PM EST POCT GLUCOSE BLOOD Routine 06/19/2024 8: 30 AM EST POCT GLUCOSE BLOOD Routine 06/19/2024 7: 27 AM EST CBC WITH AUTO DIFFERENTIAL Routine 06/19/2024 6:06 AM EST PROCALCITONIN Routine 06/19/2024 6:06 AM EST COMPREHENSIVE METABOLIC PANEL Routine 06/19/2024 6:06 AM EST MAGNESIUM Routine 06/19/2024 6:06 AM EST CBC AND DIFFERENTIAL Routine 06/19/2024 6:06 AM EST ECG ANNOTATED 06/19/2024 POCT GLUCOSE BLOOD Routine 06/18/2024 9: 24 PM EST TROPONIN I HIGH SENSITIVITY STAT 06/18/2024 4:42 PM EST RESPIRATORY VIRUS PANEL MOLECULAR STUDY STAT 06/18/2024 4:18 PM EST ECG 12-LEAD STAT 06/18/2024 4:12 PM EST XR CHEST 2 VIEWS STAT 06/18/2024 3:58 PM EST CBC WITH AUTO DIFFERENTIAL STAT 06/18/2024 3:03 PM EST B-TYPE NATRIURETIC PEPTIDE STAT 06/18/2024 3:03 PM EST MAGNESIUM STAT 06/18/2024 3:03 PM EST LIPASE STAT 06/18/2024 3:03 PM EST COMPREHENSIVE METABOLIC PANEL STAT 06/18/2024 3:03 PM EST CBC AND DIFFERENTIAL STAT 06/18/2024 3:03 PM EST TROPONIN I HIGH SENSITIVITY STAT 06/18/2024 3:03 PM EST POC PROTIME INR BLOOD Routine 06/18/2024 12:39 PM EST Atrial fibrillation, 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 (CMS/HCC) long term care social worker (current) use of anticoagulants POC PROTIME INR BLOOD Routine 06/11/2024 Atrial fibrillation, 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 (CMS/HCC) FPC (current) use of anticoagulants POC PROTIME INR BLOOD Routine 06/04/2024 Atrial fibrillation, 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 (CMS/HCC) FPC (current) use of anticoagulants XR CHEST 2 VIEWS Routine 05/28/2024 11:1 1 AM EST Moderate persistent asthma with acute exacerbation POC PROTIME INR BLOOD Routine 05/28/2024 Atrial fibrillation, 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 (CMS/HCC) PVD (peripheral vascular disease) (CMS/HCC) long term care social worker (current) use of anticoagulants SST - GOLD Routine 05/09/2024 12:00 PM [...] failure (CMS/HCC) Longstanding persistent atrial fibrillation (CMS/HCC) POC PROTIME INR BLOOD Routine 05/08/2024 Atrial fibrillation, 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 (CMS/HCC) long term care social worker (current) use of anticoagulants ECG 12-LEAD Routine 05/06/2024 1:31 PM EST Longstanding persistent atrial fibrillation (CMS/HCC) POC PROTIME INR BLOOD Routine 04/30/2024 from Last 3 Months Results * POC Protime INR Blood (07/26/2024) Only the most recent of7 resultswithin the time period is included. Lot Number INR POC 3.4 Prothrombin Time POC Exp Date Blood 07/26/2024 Doe Hair MD POINT OF CARE TEST E NTER/EDIT ORDERABLES * (ABNORMAL) Prothrombin time with INR (07/23/2024 11:35 AM EST) Only the most recent of12 resultswithin the time period is included. Pathologist [facility] Protime 113.9(H) 10.6 - 13.9 sec LAB COAGULATION METHOD 07/23/2024 3:40 PM EST [facility] INR 8.9(HH) LAB COAGULATION METHOD 07/23/2024 3:40 PM EST [facility] Blood Venous blood specimen / Unknown Venipuncture / Unknown 07/23/2024 11:35 AM EST 07/23/2024 11:35 AM EST Jerry Akers MD LAB BLOOD ORDERABLES [facility] [address] [place] [address], * (ABNORMAL) Complete blood count (06/27/2024 8:37 AM EST) [facility] WBC 5.0 4.8 - 10.8 K/[facility] LAB HEMETOLOGY METHOD 06/27/2024 10:58 AM EST [facility] RBC 3.90 3.80 - 4.80 M/mcL LAB HEMETOLOGY METHOD 06/27/2024 10:[address] [facility] Hemoglobin 11.5 11.5 - 16.0 g/dL LAB HEMETOLOGY METHOD 06/27/2024 10:[address] [facility] Hematocrit 38.6 35.0 - 47.0 % LAB HEMETOLOGY METHOD 06/27/2024 10:[address] [facility] MCV 99.2(H) 79.0 - 98.0 FL LAB HEMETOLOGY METHOD 06/27/2024 10:[address] [facility] MCH 29.6 27.0 - 32.0 pcg LAB HEMETOLOGY METHOD 06/27/2024 10:[address] [facility] MCHC 29.8(L) 32.0 - 37.0 g/dL LAB HEMETOLOGY METHOD 06/27/2024 10:[address] [facility] RDW 13.6 11.0 - 15.0 % LAB HEMETOLOGY METHOD 06/27/2024 10:[address] [facility] Platelets 226 130 - 400 K/mcL LAB HEMETOLOGY METHOD 06/27/2024 10:[address] [facility] MPV 10.7 7.0 - 11.0 FL LAB HEMETOLOGY METHOD 06/27/2024 10:[address] [facility] NRBC 0.0 <1.0 % LAB HEMETOLOGY METHOD 06/27/2024 10:[address] [facility] NRBC Absolute 0.00 <0.10 K/mcL LAB HEMETOLOGY METHOD 06/27/2024 10:[address] [facility] Blood Venous blood specimen / Unknown Venipuncture / Unknown 06/27/2024 8:37 AM EST 06/27/2024 10:21 AM EST Bruce Petersen MD LAB BLOOD ORDERABLES Performing Organization Address City/[facility]/ZIP Co de Phone Number [facility] [address] [place] [address], * Thyroid stimulating hormone (06/27/2024 8:37 AM EST) [facility] TSH 2.33 0.40 - 4.00 mcIU/mL LAB CHEMISTRY METHOD 06/27/2024 11:32 AM EST [facility] Blood Venous blood specimen / Unknown Venipuncture / Unknown 06/27/2024 8:37 AM EST 06/27/2024 10:21 AM EST Bruce Petersen MD LAB BLOOD ORDERABLES Performing Organization Address [facility] Co de Phone Number [facility] [address] [place] [address], * (ABNORMAL) Comprehensive metabolic panel (06/27/2024 8:37 AM EST) Only the most recent of3 resultswithin the time period is included. [facility] Sodium 143 133 - 145 mmol/L LAB CHEMISTRY METHOD 06/27/2024 11:[address] [facility] Potassium 4.3 3.5 - 5.5 mmol/L LAB CHEMISTRY METHOD 06/27/2024 11:[address] [facility] Chloride 103 96 - 110 mmol/L LAB CHEMISTRY METHOD 06/27/2024 11:[address] [facility] CO2 38(H) 21 - 32 mmol/L LAB CHEMISTRY METHOD 06/27/2024 11:[address] [facility] Anion Gap 2(L) 3 - 11 LAB CHEMISTRY METHOD 06/27/2024 11:[address] [facility] Glucose 81 70 - 100 mg/dL LAB CHEMISTRY METHOD 06/27/2024 11:[address] [facility] BUN 47(H) 5 - 25 mg/dL LAB CHEMISTRY METHOD 06/27/2024 11:[address] [facility] Creatinine 1.94(H) 0.50 - 1.10 mg/dL LAB CHEMISTRY METHOD 06/27/2024 11:[address] [facility] eGFR 25(L) >=60 mL/min/1. 73m2 LAB CHEMISTRY METHOD 06/27/2024 11:[address] [facility] Comment:Calculation based on the??Chronic Kidney Disease Epidemiology Collaboration (CKD-EPI) equation refit??without adjustment for race. BUN/Creatinine Ratio 24.2 LAB CHEMISTRY METHOD 06/27/2024 11:[address] [facility] Calcium 8.7 8.5 - 10.5 mg/dL LAB CHEMISTRY METHOD 06/27/2024 11:[address] [facility] AST (SGOT) 28 10 - 42 unit/L LAB CHEMISTRY METHOD 06/27/2024 11:[address] [facility] ALT (SGPT) 14 10 - 60 unit/L LAB CHEMISTRY METHOD 06/27/2024 11:[address] [facility] Alkaline Phosphatase 107 42 - 121 unit/L LAB CHEMISTRY METHOD 06/27/2024 11:[address] [facility] Total Protein 8.1(H) 6.0 - 8.0 g/dL LAB CHEMISTRY METHOD 06/27/2024 11:[address] [facility] Albumin 2.7(L) 3.2 - 5.0 g/dL LAB CHEMISTRY METHOD 06/27/2024 11:[address] [facility] Total Bilirubin 0.5 0.0 - 1.4 mg/dL LAB CHEMISTRY METHOD 06/27/2024 11:[address] [facility] Blood Venous blood specimen / Unknown Venipuncture / Unknown 06/27/2024 8:37 AM EST 06/27/2024 10:21 AM EST Bruce Petersen MD LAB BLOOD ORDERABLES [facility] [address] [place] [address], [place] [phone] * Lavender tube (06/25/2024 7:05 AM EST) Only the most recent of2 resultswithin the time period is included. Extra Tube Hold for add-ons. 06/25/2024 9:01 AM EST [facility] Comment:Auto resulted. Blood Venous blood specimen / Unknown Venipuncture / Unknown 06/25/2024 7:05 AM EST 06/25/2024 7:48 AM EST Gustavo Quinteros MD LAB BLOOD ORDE DESTINEE Performing Organization Address City/[facility]/ZIP Co de Phone Number [facility] [address] [place] [address], [place] [phone] * SST tube (06/25/2024 7:03 AM EST) Only the most recent of3 resultswithin the time period is included. Extra Tube Hold for add-ons. 06/25/2024 9:01 AM EST [facility] Comment:Auto resulted. Blood Venous blood specimen / Unknown Venipuncture / Unknown 06/25/2024 7:03 AM EST 06/25/2024 7:50 AM EST Gustavo Quinteros MD LAB BLOOD ORDE DESTINEE Performing Organization Address City/[facility]/ZIP Co de Phone Number [facility] [address] [place] [address], [place] [phone] * (ABNORMAL) CBC auto differential (06/24/2024 6:47 AM EST) Only the most recent of5 resultswithin the time period is included. WBC 5.9 4.8 - 10.8 K/[facility] LAB HEMETOLOGY METHOD 06/24/2024 7:[address] [facility] RBC 3.90 3.80 - 4.80 M/mcL LAB HEMETOLOGY METHOD 06/24/2024 7:[address] [facility] Hemoglobin 11.4(L) 11.5 - 16.0 g/dL LAB HEMETOLOGY METHOD 06/24/2024 7:[address] [facility] Hematocrit 38.0 35.0 - 47.0 % LAB HEMETOLOGY METHOD 06/24/2024 7:[address] [facility] MCV 96.7 79.0 - 98.0 FL LAB HEMETOLOGY METHOD 06/24/2024 7:[address] [facility] MCH 29.0 27.0 - 32.0 pcg LAB HEMETOLOGY METHOD 06/24/2024 7:[address] [facility] MCHC 30.0(L) 32.0 - 37.0 g/dL LAB HEMETOLOGY METHOD 06/24/2024 7:[address] [facility] RDW 14.1 11.0 - 15.0 % LAB HEMETOLOGY METHOD 06/24/2024 7:[address] [facility] Platelets 225 130 - 400 K/mcL LAB HEMETOLOGY METHOD 06/24/2024 7:[address] [facility] MPV 10.7 7.0 - 11.0 FL LAB HEMETOLOGY METHOD 06/24/2024 7:[address] [facility] NRBC 0.0 <1.0 % LAB HEMETOLOGY METHOD 06/24/2024 7:[address] [facility] NRBC Absolute 0.00 <0.10 K/mcL LAB HEMETOLOGY METHOD 06/24/2024 7:[address] [facility] Neutrophils Relative 58.7 % LAB HEMETOLOGY METHOD 06/24/2024 7:[address] [facility] Lymphocytes Relative 29.0 % LAB HEMETOLOGY METHOD 06/24/2024 7:[address] [facility] Monocytes Relative 8.9 % LAB HEMETOLOGY METHOD 06/24/2024 7:[address] [facility] Eosinophils Relative 2.4 % LAB HEMETOLOGY METHOD 06/24/2024 7:[address] [facility] Basophils Relative 0.7 % LAB HEMETOLOGY METHOD 06/24/2024 7:[address] [facility] Immature Granulocytes Relative 0.3 % LAB HEMETOLOGY METHOD 06/24/2024 7:[address] [facility] Neutrophils Absolute 3.44 1.50 - 7.00 K/mcL LAB HEMETOLOGY METHOD 06/24/2024 7:[address] [facility] Lymphocytes Absolute 1.70 1.00 - 5.00 K/mcL LAB HEMETOLOGY METHOD 06/24/2024 7:[address] [facility] Monocytes Absolute 0.52 0.20 - 1.00 K/mcL LAB HEMETOLOGY METHOD 06/24/2024 7:[address] [facility] Eosinophils Absolute 0.14 0.00 - 0.50 K/mcL LAB HEMETOLOGY METHOD 06/24/2024 7:[address] [facility] Basophils Absolute 0.04 0.00 - 0.20 K/mcL LAB HEMETOLOGY METHOD 06/24/2024 7:[address] [facility] Immature Granulocytes Absolute 0.02 0.00 - 0.03 K/mcL LAB HEMETOLOGY METHOD 06/24/2024 7:[address] [facility] Blood Venous blood specimen / Unknown Venipuncture / Unknown 06/24/2024 6:47 AM EST 06/24/2024 7:06 AM EST Michaela Dove MD LAB BLOOD ORDERABLE S [facility] [address] [place] [address], * (ABNORMAL) Basic metabolic panel (06/24/2024 6:47 AM EST) Only the most recent of5 resultswithin the time period is included. Sodium 143 133 - 145 mmol/L LAB CHEMISTRY METHOD 06/24/2024 7:[address] [facility] Potassium 3.4(L) 3.5 - 5.5 mmol/L LAB CHEMISTRY METHOD 06/24/2024 7:[address] [facility] Chloride 103 96 - 110 mmol/L LAB CHEMISTRY METHOD 06/24/2024 7:[address] [facility] CO2 36(H) 21 - 32 mmol/L LAB CHEMISTRY METHOD 06/24/2024 7:[address] [facility] Anion Gap 4 3 - 11 LAB CHEMISTRY METHOD 06/24/2024 7:[address] [facility] Glucose 78 70 - 100 mg/dL LAB CHEMISTRY METHOD 06/24/2024 7:[address] [facility] BUN 40(H) 5 - 25 mg/dL LAB CHEMISTRY METHOD 06/24/2024 7:[address] [facility] Creatinine 1.81(H) 0.50 - 1.10 mg/dL LAB CHEMISTRY METHOD 06/24/2024 7:[address] [facility] eGFR 27(L) >=60 mL/min/1. 73m2 LAB CHEMISTRY METHOD 06/24/2024 7:[address] [facility] Comment:Calculation based on the??Chronic Kidney Disease Epidemiology Collaboration (CKD-EPI) equation refit??without adjustment for race. BUN/Creatinine Ratio 22.1 LAB CHEMISTRY METHOD 06/24/2024 7:[address] [facility] Calcium 8.7 8.5 - 10.5 mg/dL LAB CHEMISTRY METHOD 06/24/2024 7:58 AM EST [facility] Blood Venous blood specimen / Unknown Venipuncture / Unknown 06/24/2024 6:47 AM EST 06/24/2024 7:05 AM EST Michaela Dove MD LAB BLOOD ORDERABLE S Performing Organization Address [facility] Co de Phone Number [facility]) [facility] [address] [place] [address], * ECG 12 lead (06/23/2024 5:12 AM EST) Only the most recent of3 resultswithin the time period is included. Ventricular Rate ECG 101 BPM GEMUSE Atrial Rate 125 BPM GEMUSE QRS Duration 92 ms GEMUSE Q-T Interval 342 ms GEMUSE QTc 443 ms GEMUSE R [place] -14 degrees GEMUSE T [place] -17 degrees GEMUSE ECG Interpretation Atrial fibrillation with rapid ventricular response Low voltage QRS Inferior infarct , age undetermined Abnormal ECG When compared with ECG of 18-JUN-2024 16:12, Vent. rate has increased BY ??39 BPM Inferior infarct is now Present Confirmed by MD Xavier, [place] ([id number]) on 06/24/2024 8:35:44 AM GEMUSE 06/23/2024 5:12 AM EST 06/24/2024 8:35 AM EST Vy KIRK ECG ORDERABLES Performing Organization Address City/[facility]/ZIP Co de Phone Number GEMUSE * (ABNORMAL) B-type natriuretic peptide (06/22/2024 7:07 AM EST) Only the most recent of3 resultswithin the time period is included. BNP 124(H) <=100 pcg/mL LAB CHEMISTRY METHOD 06/22/2024 9:32 AM EST [facility] Blood Venous blood specimen / Unknown Venipuncture / Unknown 06/22/2024 7:07 AM EST 06/22/2024 7:33 AM EST Michaela Dove MD LAB BLOOD ORDERABLE S Performing Organization Address [facility]/ZIP Co de Phone Number [facility] [address] [place] [address], * Magnesium (06/22/2024 7:07 AM EST) Only the most recent of3 resultswithin the time period is included. Magnesium 1.9 1.9 - 2.6 mg/dL LAB CHEMISTRY METHOD 06/22/2024 8:23 AM EST [facility] Blood Venous blood specimen / Unknown Venipuncture / Unknown 06/22/2024 7:07 AM EST 06/22/2024 7:33 AM EST Michaela Dove MD LAB BLOOD ORDERABLE S Performing Organization Address [facility] Co de Phone Number [facility] [address] [place] [address], * XR Chest 2 Views (06/20/2024 12:30 PM EST) Only the most recent of3 resultswithin the time period is included. Anatomical Region Laterality Modality Body Radiographic Yolie ging 06/20/2024 12:3 4 PM EST Impressions 06/20/2024 12:35 PM EST Stable examination. ??Findings suggestive of mild vascular congestion. ??No significant effusions. -------- FINAL REPORT -------- Dictated By: Trenton Head Dictated Date: 06/20/2024 12:34 ET Assigned Physician: Trenton Head Reviewed and Electronically Signed By: Trenton Head Signed Date: 06/20/2024 12:35 ET Workstation ID: [id number] Transcribed By: Self Edit Transcribed Date: 06/20/2024 12:34 ET Narrative 06/20/2024 12:35 PM EST Frontal and lateral view of the chest COMPARISON: Chest radiograph June 18 INDICATION: Cough Procedure Note Trenton Head MD - 06/20/2024 Frontal and lateral view of the chest COMPARISON: Chest radiograph June 18 INDICATION: Cough IMPRESSION: Stable examination. Findings suggestive of mild vascular congestion. Nosignificant effusions. -------- FINAL REPORT -------- Dictated By: Trenton Head Dictated Date: 06/20/2024 12:34 ET Assigned Physician: Trenton Head Reviewed and Electronically Signed By: Trenton Head Signed Date: 06/20/2024 12:35 ET Workstation ID: [id number] Transcribed By: Self Edit Transcribed Date: 06/20/2024 12:34 ET Michaela Dove MD IMG XR PROCEDURES * (ABNORMAL) TRANSTHORACIC ECHOCARDIOGRAM (TTE) COMPLETE W/ CONTRAST (06/20/2024 10:19 AM EST) Left Atrium Minor [place] 6.3 cm CV PACS Left Atrium Major [place] 7.2 cm CV PACS LA Area Sys (A2C) 25 cm2 CV PACS LA Area Sys (A4C) 26 cm2 CV PACS LA Volume (BP) 84 mL CV PACS RA Area 24.9 cm2 CV PACS RA 2D Volume 76 mL CV PACS AV Regurgitation PHT 552 ms CV PACS AR Max Velocity 3.6 m/s CV PACS AV Peak Giles 1.9 m/s CV PACS AV Peak Gradient 14 mmHg CV PACS AV Mean Gradient 7 mmHg CV PACS Ao VTI 38.5 cm CV PACS AV Area Continuity Equation 1.5 cm2 CV PACS AV Area Peak Velocity 1.6 cm2 CV PACS Aortic Sinus Valsalva 3.6 cm CV PACS Ascending Aorta 3.9 cm CV PACS IVC Proximal 2.5 cm CV PACS IVSD 1.0(A) 0.6 - 0.9 cm CV PACS LVIDD 4.9 3.8 - 5.2 cm CV PACS LVIDS 3.0 2.2 - 3.5 cm CV PACS LVOT Diameter 2.0 cm CV PACS LVOT Mean Grad 2 mmHg CV PACS LVOT Peak VTI 18.2 cm CV PACS LVOT Mean Giles 0.6 m/s CV PACS LVOT Peak Giles 0.9 m/s CV PACS LVOT Peak Gradient 3 mmHg CV PACS LVPWD 1.1(A) 0.6 - 0.9 cm CV PACS LVOT Area 3.1 cm2 CV PACS LVOT Stroke Volume 57 mL CV PACS MR PISA Nyquist Giles 34 cm/s CV PACS PISA MR Radius 0.70 cm CV PACS MR VTI 143.0 cm CV PACS MR PISA Max Velocity 4.4 m/s CV PACS MR Peak Gradient 77 mmHg CV PACS PISA MR EROA 0.24 cm2 CV PACS PISA Regurgitant Volume 34 mL CV PACS RV Diastolic Basal Dimension 4.2(A) 2.5 - 4.1 cm CV PACS RV S' 10 cm/s CV PACS TAPSE 18 mm CV PACS TR Peak Velocity 2.82 m/s CV PACS TR Peak Gradient 32 mmHg CV PACS LVOT Stroke Index 30 mL/m2 CV PACS Relative Wall Thickness ratio 0.45 CV PACS LVOT:AV VTI Index 0.47 CV PACS FS 39 % CV PACS LV Mass 2D 188 g CV PACS Ascending Aorta Index 2.09 cm/m2 CV PACS LVOT flow 188 mL/s CV PACS RA 2D Volume Index 41 mL/m2 CV PACS PRINCESS Index (VTI) 0.79 cm2/m2 CV PACS PRINCESS Index (Pk Giles) 0.86 cm2/m2 CV PACS LVIDD Index 2.62 cm/m2 CV PACS LVIDS Index 1.60 cm/m2 CV PACS AV Velocity Ratio 0.47 CV PACS LA Volume Index (BP) 45 mL/m2 CV PACS LV Mass Index 2D 101 g/m2 CV PACS BSA 1.92 m2 CV PACS Right Ventricular Peak Systolic Pressure 47 mmHg CV PACS Est. RA Pressure 15 mmHg CV PACS Anatomical Region Laterality Modality Ultrasound Narrative 06/20/2024 1:26 PM EST ?Left ventricle cavity size is normal. Left ventricle mild concentric hypertrophy. Left ventricular systolic function is in the normal range with an ejection fraction of 55-60%.No regional LV wall motion abnormalities noted. ?Right ventricle cavity is mildly enlarged. Right ventricular systolic function is normal. ?Left atrium cavity is moderately dilated. ?Right atrium cavity is moderately dilated. ?Mitral valve demonstrates moderate regurgitation. ?There is mild aortic regurgitation. ?Tricuspid valve demonstrates moderate regurgitation. ?The right ventricular systolic pressure is moderately elevated at 47 mmHg. ??Right atrial pressure is elevated. Left Ventricle Left ventricle cavity size is normal. There is mild concentric hypertrophy. Systolic function is normal with an ejection fraction of 55-60%. There are no regional LV wall motion abnormalities. Unable to assess diastolic function due to arrythmia. Right Ventricle Right ventricle cavity is mildly dilated. Systolic function is normal. Left Atrium Left atrium cavity is moderately dilated. Right Atrium Right atrium cavity is moderately dilated. IVC/SVC RA pressures is estimated to be 15 mmHg (IVC diameter >21 mm and decreases <50% during inspiration). Mitral Valve The leaflets are mildly thickened. There is annular calcification. There is moderate regurgitation. There is no evidence of mitral valve stenosis. Tricuspid Valve Tricuspid valve structure is normal. There is moderate regurgitation. The right ventricular systolic pressure is elevated. The RVSP is estimated at 47 mmHg. Aortic Valve The aortic valve is trileaflet. There is mild regurgitation. There is no evidence of aortic valve stenosis. Pulmonic Valve The pulmonic valve was not well visualized. No significant pulmonic valve regurgitation. Ascending Aorta The aorta was not well visualized. Pericardium There is no pericardial effusion. Study Details Overall the study quality was adequate. Definity contrast was given to enhance imaging. Michaela Dove MD CV ECHO PROCEDURES * (ABNORMAL) POCT Glucose, blood (06/20/2024 8:28 AM EST) Only the most recent of7 resultswithin the time period is included. Glucose POCT 106(H) 70 - 100 mg/dL 06/20/2024 8:28 AM EST [facility] ([facility]) [facility] Blood Capillary blood specimen / Unknown 06/20/2024 8:28 AM EST 06/20/2024 8:30 AM EST Michaela Dove MD LAB POINT OF CARE T EST DOCKED DEVICE UNSOLICITED RESULTS Performing Organization Address City/[facility]/ZIP Co de Phone Number [facility] [address] [place] [address], [place] [phone] * (ABNORMAL) Procalcitonin (06/19/2024 6:06 AM EST) Procalcitonin 0.20(H) <=0.16 ng/mL LAB CHEMISTRY METHOD 06/19/2024 8:35 AM EST [facility] Blood Venous blood specimen / Unknown Venipuncture / Unknown 06/19/2024 6:06 AM EST 06/19/2024 6:46 AM EST Narrative [facility] - 06/19/2024 8:35 AM EST Procalcitonin > 2.00 ng/ml: Procalcitonin Levels above 2.00 ng/ml, on the first day of ICU admission represent a high risk for progression to severe sepsis and/or septic shock. Procalcitonin < 0.50 ng/ml: Procalcitonin levels below 0.50 ng/ml on the first day of ICU admission represent a low risk for progression to severe sepsis and/or septic shock. Concentrations <0.5 ng/mL do not exclude an infection, on account of local ized infections (without systemic signs) which can be associated with such low concentrations, or a systemic infection in its initial stages (<6 hours). Furthermore, increased procalcitonin can occur without infection. PCT concentrations between 0.5 and 2.0 ng/mL should be interpreted taking into account the patient's history. It is recommended to retest PCT within 6-24 hours if any concentrations <2.0 ng/mL are obtained. Adriane KIRK LAB BLOOD ORDERABLES Performing Organization Address [facility]/ZIP Co de Phone Number [facility] [address] [place] [address], * ECG-Annotated (06/19/2024) Provider Onbase MD ECG ORDERABLES * Troponin I high sensitivity (06/18/2024 4:42 PM EST) Only the most recent of2 resultswithin the time period is included. [facility] High Sensitivity Troponin I 28 <=54 ng/L LAB CHEMISTRY METHOD 06/18/2024 5:[address] [facility] Blood Venous blood specimen / Unknown Venipuncture / Unknown 06/18/2024 4:42 PM EST 06/18/2024 4:57 PM EST [facility] - 06/18/2024 5:23 PM EST High levels of biotin in samples may falsely decrease hsTroponin values. ??Use caution when interpreting hsTroponin results in patients taking biotin who exhibit renal impairment (eGFR <60) or in patients taking more than 20 mg/day of biotin. Delroy Moses MD LAB BLOOD ORDERAB LES [facility] [address] [place] [address], * Respiratory virus panel molecular study (06/18/2024 4:18 PM EST) [facility] Adenovirus Detection by PCR Not Detected Not Detected LAB MICROBIOLOGY METHOD 06/18/2024 5:[address] [facility] Influenza A PCR Not Detected Not Detected LAB MICROBIOLOGY METHOD 06/18/2024 5:[address] [facility] Influenza B PCR Not Detected Not Detected LAB MICROBIOLOGY METHOD 06/18/2024 5:[address] [facility] Coronavirus 229E Not Detected Not Detected LAB MICROBIOLOGY METHOD 06/18/2024 5:[address] [facility] Coronavirus HKU1 Not Detected Not Detected LAB MICROBIOLOGY METHOD 06/18/2024 5:[address] [facility] Coronavirus OC43 Not Detected Not Detected LAB MICROBIOLOGY METHOD 06/18/2024 5:[address] [facility] Coronavirus NL63 Not Detected Not Detected LAB MICROBIOLOGY METHOD 06/18/2024 5:[address] [facility] Parainfluenza Virus 1 Not Detected Not Detected LAB MICROBIOLOGY METHOD 06/18/2024 5:[address] [facility] Parainfluenza Virus 2 Not Detected Not Detected LAB MICROBIOLOGY METHOD 06/18/2024 5:[address] [facility] Parainfluenza Virus 3 Not Detected Not Detected LAB MICROBIOLOGY METHOD 06/18/2024 5:[address] [facility] Parainfluenza Virus 4 Not Detected Not Detected LAB MICROBIOLOGY METHOD 06/18/2024 5:[address] [facility] RSV PCR Not Detected Not Detected LAB MICROBIOLOGY METHOD 06/18/2024 5:[address] [facility] Human Metapneumovirus A and B Not Detected Not Detected LAB MICROBIOLOGY METHOD 06/18/2024 5:[address] [facility] Rhinovirus/Entero virus Not Detected Not Detected LAB MICROBIOLOGY METHOD 06/18/2024 5:[address] [facility] Bordetella pertussis Not Detected Not Detected LAB MICROBIOLOGY METHOD 06/18/2024 5:[address] [facility] Bordetella parapertussis Not Detected Not Detected LAB MICROBIOLOGY METHOD 06/18/2024 5:[address] [facility] Mycoplasma pneumo by PCR Not Detected Not Detected LAB MICROBIOLOGY METHOD 06/18/2024 5:[address] [facility] Chlamydia pneumoniae Not Detected Not Detected LAB MICROBIOLOGY METHOD 06/18/2024 5:[address] [facility] SARS COV-2 Not Detected Not Detected LAB MICROBIOLOGY METHOD 06/18/2024 5:[address] [facility] Sputum Both anterior nares / Unknown Non-blood Collection / Unknown 06/18/2024 4:18 PM EST 06/18/2024 4:[address] [facility] - 06/18/2024 5:27 PM EST Testing was performed using the [employer] Respiratory Pathogen PCR Assay. All results must be correlated with the clinical findings. Results should not be used as the sole basis for diagnosis. False Negative results may occur from the presence of sequence variants in the region targeted by the assay or the presence of inhibitors. Results may be affected by concurrent antiviral/antimicrobial therapy or levels of organisms that are below the limit of detection. Delroy Moses MD LAB MICROBIOLOGY - GENERAL ORDERABLES Performing Organization Address [facility]/ZIP Co de Phone Number [facility] [address] [place] [address], [place] [phone] * Lipase (06/18/2024 3:03 PM EST) [facility] Lipase 22 13 - 75 unit/L LAB CHEMISTRY METHOD 06/18/2024 3:50 PM EST [facility] Blood Venous blood specimen / Unknown Venipuncture / Unknown 06/18/2024 3:03 PM EST 06/18/2024 3:16 PM EST Delroy Moses MD LAB BLOOD ORDERAB LES Performing Organization Address [facility] Phone Number [facility] [address] [place] [address], [place] [phone] * Lipid panel with reflex to direct LDL (05/09/2024 12:00 PM EST) [facility] Cholesterol 133 0 - 200 mg/dL LAB CHEMISTRY METHOD 05/09/2024 4:50 PM EST [facility] Triglycerides 44 0 - 150 mg/dL LAB CHEMISTRY METHOD 05/09/2024 4:50 PM EST [facility] HDL 83 >=40 mg/dL LAB CHEMISTRY METHOD 05/09/2024 4:50 PM EST [facility] LDL Calculated 41 0 - 100 mg/dL LAB CHEMISTRY METHOD 05/09/2024 4:50 PM EST [facility] VLDL Cholesterol Trino 8.8 mg/dL LAB CHEMISTRY METHOD 05/09/2024 4:50 PM EST [facility] Non HDL Chol. 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 Do not modify or discontinue any currently active code status orders. Healthcare Agents on File Name Relationship Healthcare Agent Relationshi p Communication Dami Roberts Son [facility] Ca re Agent Nicko Vyas Second Alternate Health Car e Agent Care Teams Warp Tying Machine Tender Relationship Specialty Start Date End Date Elizabet Shannon MD [address] [place] [address] PCP - General Internal Medicine 05/06/24
== END 2024-07-30 11:52 | disposition home or self-care (01) ==
PROVIDERS: Visit Provider Nurse Practitioner Family
DX: R35.1 Nocturia (principal); Z13.9 Encounter for screening, unspecified
CPT/HCPCS: 99203

== ENCOUNTER 2024-08-26 14:34 | Inpatient (IN) | payer OTHER, SELFPAY ==
[2024-08-26] VITALS (7 sets, daily range): BP systolic 102–114; BP diastolic 41–59; PULSE 49–73; RESP 16–23; TEMP 34.2–36.4; O2SAT 93–100; BMI 32.2
--- NOTE | ~2024-08-26 | XR_ITS ---
CLINICAL HISTORY: Fever 1 view chest x-ray. Comparison: 08/26/2024 Findings: There is hypoventilation. Increased retrocardiac density is present due to atelectasis/consolidation Heart size is enlarged No acute fracture. There is advanced degenerative narrowing of the right shoulder joint. Impression: 1. Cardiomegaly with mild diffuse pulmonary vascular congestion. 2. Increased retrocardiac density due to atelectasis/early consolidation. This document has been electronically signed by: Jose Longo MD on 09/01/2024 12:47:04
--- NOTE | ~2024-08-26 | XR_ITS ---
EXAMINATION: XR CHEST CLINICAL INFORMATION: SOB COMPARISON: Chest x-ray 05/29/2024. TECHNIQUE: Frontal view of the chest was obtained. FINDINGS: There is cardiomegaly with bilateral increased perivascular consistent with CHF/edema. The lungs are hypoexpanded but appear clear. No pleural effusion suspected. No gross bony abnormality. XR/XR chest 1V IMPRESSION: Cardiomegaly with CHF. Electronically signed by: Jose Mcdonald MD 08/26/2024 04:24 PM EST
--- NOTE | ~2024-08-26 | XR_ITS ---
CLINICAL HISTORY: Left knee pain 2 view left knee Comparison: DX - KNEE LEFT 1 OR 2 VIEWS [id number] - 11/12/18 13:45 EDT Findings: Osteopenia. Severe tricompartmental osteoarthrosis with marked joint space narrowing and subchondral sclerosis. Small joint effusion. No radiopaque foreign body. IMPRESSION: Severe tricompartmental osteoarthrosis with marked joint space narrowing and subchondral sclerosis. This document has been electronically signed by: Reid Castellon MD, PHD on 08/28/2024 23:11:13
--- NOTE | 2024-08-26 14:50 | ECG_ITS ---
Test Reason : SOB Blood Pressure : */* mmHG Vent. Rate : 50 BPM Atrial Rate : * BPM P-R Int : * ms QRS Dur : 98 ms QT Int : 508 ms P-R-T Axes : * 27 -14 degrees QTcB Int : 463 ms Atrial fibrillation with slow ventricular response Low voltage QRS Septal infarct (cited on or before 05-Oct-2021) Abnormal ECG When compared with ECG of 29-May-2024 12:10, Questionable change in initial forces of Anteroseptal leads Nonspecific T wave abnormality, improved in Lateral leads Referred By: Generic ED Physician Electronically Signed By: TRENTON BURGESS MD
--- NOTE | 2024-08-26 15:14 | ED_ITS ---
HPI - SOB/Dyspnea General Chief Complaint: Dyspnea Stated Complaint: SOB,BLE EDEMA PER EMS Time Seen by Provider: 08/26/24 15:13 Source: patient Mode of arrival: EMS History of Present Illness ED Provider: Dr. Allen HPI Narrative: 84 year old female PMH: afib on coumadin, hypothyroidism, CHF, CKD, lymphedema who presents to the ER with shortness of breath and lower extremity swelling. Arrived hypothermic and placed on a michael hugger. patient is unable to me why she is so cold she does have both legs dressed by her son who is a nurse he has chronic venous stasis changes with some weeping no obvious cellulitis or infection to either leg. she states she has had increased weeping from the legs no falls but she states she does feel short of breath as she did and she was admitted here in May. Related Data Home Medications ?Medication ?Instructions ?Recorded ?Confirmed cholecalciferol (vitamin D3) 50 50 mcg PO DAILY 02/04/21 07/30/24 mcg (2,000 unit) capsule (Vitamin D3) ferrous sulfate 325 mg (65 mg 325 mg PO DAILY 02/04/21 07/30/24 iron) tablet (FeroSul) loratadine 10 mg tablet 10 mg PO DAILY 02/04/21 07/30/24 omeprazole 20 mg capsule,delayed 20 mg PO DAILY@0630 02/04/21 07/30/24 release warfarin 2.5 mg tablet 2.5 mg PO DAILY 02/04/21 07/30/24 fluticasone fur. 100 mcg-umeclid 1 puff inhalation DAILY 05/03/21 07/30/24 62.5 mcg-vilant 25 mcg inhalat.powder (Trelegy Ellipta) albuterol sulfate 2.5 mg/3 mL 2.5 mg inhalation Q4H PRN 08/09/21 07/30/24 (0.083 %) solution for nebulization Shortness Of Breath montelukast 10 mg tablet 1 tab PO DAILY 08/09/21 07/30/24 cyanocobalamin (vitamin B-12) 1,000 mcg PO DAILY 05/29/24 07/30/24 1,000 mcg tablet diltiazem HCl 240 mg 240 mg PO DAILY 05/29/24 07/30/24 capsule,extended release 24 hr furosemide 40 mg tablet 40 mg PO BID 05/29/24 07/30/24 levothyroxine 75 mcg tablet 75 mcg PO DAILY 05/29/24 07/30/24 Allergies Allergy/AdvReac Type Severity Reaction Status Date / Time lisinopril [LISINOPRIL] Allergy Unknown UNKNOWN Verified 08/26/24 14:54 simvastatin [SIMVASTATIN] Allergy Unknown UNKNOWN Verified 08/26/24 14:54 Review of Systems 2 Review of Systems: Review of systems: General: Patient denies any fever chills recent illness or falls Musculoskeletal: Denies back pain or body aches or other injuries HEENT: denies headache, runny nose, ear pain Respiratory: shortness of breath, no cough Cardiovascular: no chest pain or palpitations : denies dysuria, frequency Abdomen: no nausea vomiting denies abdominal pain Extremities: bilateral leg swelling, no pain Skin: no diaphoresis Yes all other systems are reviewed and are negative [facility] Past Medical History Medical History Tricuspid valve regurgitation Pulmonary hypertension Acute on chronic right heart failure Idiopathic hypotension Sepsis Cellulitis of right leg Lymphedema Non-healing wound of right lower extremity Venous stasis dermatitis of right lower extremity CHF (congestive heart failure) Hypothyroid Afib Asthma HTN (hypertension) Surgical History S/P hip replacement Family History Family History Mother Gastric cancer Social History Social History Household Members: None Housing: Apartment Do you presently have visiting nurse or other home services: Yes (nursing 2-3 times weekly) Alcohol intake: never Comment: sleeping in recliner Patient Tobacco Use Status: Never used Tobacco Second Hand Smoke Exposure: No Advance Directives: Yes Advance Directives on File: Yes Advance Directives Date on File: 02/05/21 service: No Current occupational status: disabled Physical Exam 2 Vital Signs: Vital Signs: Last Vital Signs Temp 94.7 F L 08/26/24 16:50 Pulse 67 08/26/24 17:10 Resp 16 08/26/24 17:10 BP 103/46 L 08/26/24 17:10 Pulse Ox 93 08/26/24 17:10 O2 Del Method Room Air 08/26/24 17:10 BMI result Body Mass Index 32.2 General: Well-appearing well-nourished in no signs of distress HEENT: Normocephalic atraumatic Neck: No signs of JVD, no masses no tenderness or lymphadenopathy Cardiovascular: Regular rate and rhythm Respiratory: Clear to auscultation bilaterally Abdomen: Soft nontender no masses Extremities: Normal pedal pulses bilateral edema and weeping Skin: Dry warm no rashes Back: No tenderness full ROM Course Reevaluation(s) Reevaluation #1: Seen by Dr. Sharif Called as she was doing a home visit and stated the patient was hypotensive she is no longer hypotensive without any intervention they thought that this was likely all related to fluid status they did on the patient was hypothermic Reevaluation #2: Temperature has improved with a Michael Hugger I added on a cortisol and a TSH level I will give the patient hydrocortisone 100 mg I think the patient will likely need to be admitted even though temperatures improve blood pressure has been low. With hypotension hypothermia adrenal insufficiency is not sufficiently ruled out think the patient would benefit from a little bit more workup. I will give the patient some antibiotics as he could be due to cellulitis of the legs as well Time: 16:34 Medications Administered Discontinued Medications Generic Name Dose Route Start Last Admin Trade Name Freq PRN Reason Stop Dose Admin Lactated Ringer's 1,000 mls @ 999 mls/hr 08/26/24 15:15 08/26/24 15:38 Lr IV 08/26/24 16:15 Not Given .Q1H1M [facility] Medical Decision Making Medical Decision Making [facility] Narrative: patient looks relatively well I will get a complete septic workup for the legs I did do not they look infected at this time I do not think she has a blood clot drooling she is not hypoxic or tachycardic she likely has a CHF exacerbation BNP x-ray were all ordered I did get a VBG to make sure her respiratory status is normal as well as a septic workup I will hold off on fluids at this time Differential Diagnosis Differential Diagnoses: The differential diagnosis associated with the presentation includes hypothermia infection sepsis acute respiratory failure unlikely as the patient looks very well CHF exacerbation COPD COVID flu RSV pneumonia cellulitis of the legs Admission/Observation Consideration of admission/observation: Escalation of care including admission/observation considered Lab Data [facility] Lab Attestation statement: I reviewed the patient's lab results. 08/26/24 15:09 08/26/24 15:38 Labs: Lab Results 08/26/24 08/26/24 08/26/24 Range/Units 15:09 15:32 15:38 WBC 3.4 L (4.8-10.8) X10*3/uL RBC 3.73 L (4.20-5.50) X10*6/uL Hgb 10.9 L (12.0-16.0) g/dl Hct 35.0 L (37.0-47.0) % MCV 93.8 (80.0-98.0) fL MCH 29.2 (27.0-33.0) pg MCHC 31.1 (31.0-35.0) g/dl RDW 14.2 (11.0-16.0) % Plt Count 183 D (160-400) X10*3/uL MPV 10.5 (9.4-12.3) fL Immature Gran % (Auto) 0.3 (0.0-0.4) % Neut % (Auto) 50.5 (45-73) % Lymph % (Auto) 32.1 (20-40) % [place] % (Auto) 10.6 (2-11) % Eos % (Auto) 5.0 H (0-4) % Baso % (Auto) 1.5 (0-2) % Lymph # (Auto) 1.1 L (1.2-4.9) X10*3/uL [place] # (Auto) 0.4 (0.1-1.2) X10*3/uL Eos # (Auto) 0.2 (0.0-0.4) X10*3/uL Baso # (Auto) 0.1 (0.0-0.2) X10*3/uL Abs Immat Gran (auto) 0.01 (0.00-0.03) X10*3/uL Absolute Neuts (auto) 1.7 L (2.0-8.3) x10*3/uL Absolute Nucleated RBC 0.000 (0.0-0.012) X10*3/uL Nucleated RBC % (auto) 0.0 (0.0-0.2) /100WBC VBG pH (7.32-7.43) VBG pCO2 mmHg VBG pO2 mmHg VBG HCO3 (22-26) mmol/L VBG O2 Saturation % VBG Base Excess mmol/L Sodium 143 (135-145) mmol/L Potassium 3.6 (3.3-5.1) mmol/L Chloride 107 (96-108) mmol/L Carbon Dioxide 27 (22-29) mmol/L Anion Gap 13 (12-20) BUN 34 H (9-16) mg/dL Creatinine 1.98 H (0.5-1.4) mg/dL Estim Creat Clear Calc 21.5 Estimated GFR 24 Random Glucose 107 (60-115) mg/dL Lactic Acid 1.5 (0.5-2.0) mmol/L Calcium 8.5 (8.4-10.2) mg/dL Troponin I High Sens 3.5 (<3.5-17.0) ng/L B-Natriuretic Peptide 189 H (<100) pg/mL TSH 3.60 (0.32-4.0) uIU/mL Influenza Type A (PCR) NEGATIVE (Negative) Influenza Type B (PCR) NEGATIVE (Negative) RSV RNA Qual (PCR) NEGATIVE (Negative) SARS-CoV-2 RNA (RT-PCR) NEGATIVE (Negative) 08/26/24 Range/Units 15:48 WBC (4.8-10.8) X10*3/uL RBC (4.20-5.50) X10*6/uL Hgb (12.0-16.0) g/dl Hct (37.0-47.0) % MCV (80.0-98.0) fL MCH (27.0-33.0) pg MCHC (31.0-35.0) g/dl RDW (11.0-16.0) % Plt Count (160-400) X10*3/uL MPV (9.4-12.3) fL Immature Gran % (Auto) (0.0-0.4) % Neut % (Auto) (45-73) % Lymph % (Auto) (20-40) % [place] % (Auto) (2-11) % Eos % (Auto) (0-4) % Baso % (Auto) (0-2) % Lymph # (Auto) (1.2-4.9) X10*3/uL [place] # (Auto) (0.1-1.2) X10*3/uL Eos # (Auto) (0.0-0.4) X10*3/uL Baso # (Auto) (0.0-0.2) X10*3/uL Abs Immat Gran (auto) (0.00-0.03) X10*3/uL Absolute Neuts (auto) (2.0-8.3) x10*3/uL Absolute Nucleated RBC (0.0-0.012) X10*3/uL Nucleated RBC % (auto) (0.0-0.2) /100WBC VBG pH 7.50 H (7.32-7.43) VBG pCO2 37 mmHg VBG pO2 171 mmHg VBG HCO3 29 H (22-26) mmol/L VBG O2 Saturation 100.0 % VBG Base Excess 6.0 mmol/L Sodium (135-145) mmol/L Potassium (3.3-5.1) mmol/L Chloride (96-108) mmol/L Carbon Dioxide (22-29) mmol/L Anion Gap (12-20) BUN (9-16) mg/dL Creatinine (0.5-1.4) mg/dL Estim Creat Clear Calc Estimated GFR Random Glucose (60-115) mg/dL Lactic Acid (0.5-2.0) mmol/L Calcium (8.4-10.2) mg/dL Troponin I High Sens (<3.5-17.0) ng/L B-Natriuretic Peptide (<100) pg/mL TSH (0.32-4.0) uIU/mL Influenza Type A (PCR) (Negative) Influenza Type B (PCR) (Negative) RSV RNA Qual (PCR) (Negative) SARS-CoV-2 RNA (RT-PCR) (Negative) Discharge Plan Discharge Clinical Impression: Hypothermia, Hypotension, Cellulitis Patient Disposition: Admitted As Inpatient Prescriptions: No Action warfarin 2.5 mg tablet 2.5 mg PO DAILY ferrous sulfate [FeroSul] 325 mg (65 mg iron) tablet 325 mg PO DAILY omeprazole 20 mg capsule,delayed release(DR/EC) 20 mg PO DAILY@0630 loratadine 10 mg tablet 10 mg PO DAILY cholecalciferol (vitamin D3) [Vitamin D3] 50 mcg (2,000 unit) capsule 50 mcg PO DAILY Trelegy Ellipta 100-62.5-25 mcg blister with device 1 puff inhalation DAILY albuterol sulfate 2.5 mg /3 mL (0.083 %) solution for nebulization 2.5 mg inhalation Q4H PRN (Reason: Shortness Of Breath) montelukast 10 mg tablet 1 tab PO DAILY furosemide 40 mg tablet 40 mg PO BID diltiazem HCl 240 mg capsule,extended release 24hr 240 mg PO DAILY cyanocobalamin (vitamin B-12) 1,000 mcg tablet 1,000 mcg PO DAILY levothyroxine 75 mcg tablet 75 mcg PO DAILY Print Language: Kinyarwanda
[2024-08-26 15:17] LABS: MANUAL DIFF FLAG NO
[2024-08-26 15:18] LABS: Basophils Absolute Auto 0.1 X10*3/uL (0.0-0.2); Basophils Percent Auto 1.5 % (0-2); Eosinophils Absolute Auto 0.2 X10*3/uL (0.0-0.4); Hemoglobin 10.9 g/dl (12.0-16.0); Imm Gran Abs Auto 0.01 X10*3/uL (0.00-0.03); Imm Gran Pct Auto 0.3 % (0.0-0.4); Lymphocytes Absolute Auto 1.1 X10*3/uL (1.2-4.9); Lymphocytes Percent Auto 32.1 % (20-40); Mean Corpuscular HGB Conc 31.1 g/dl (31.0-35.0); Mean Corpuscular Hemoglobin 29.2 pg (27.0-33.0); Mean Corpuscular Volume 93.8 fL (80.0-98.0); Mean Platelet Volume 10.5 fL (9.4-12.3); Monocytes Absolute Auto 0.4 X10*3/uL (0.1-1.2); Monocytes Percent Auto 10.6 % (2-11); Neutrophils Absolute Auto 1.7 x10*3/uL (2.0-8.3); Neutrophils Percent Auto 50.5 % (45-73); Platelet Count 183 X10*3/uL (160-400); Red Blood Count 3.73 X10*6/uL (4.20-5.50); Red Cell Distribution Width 14.2 % (11.0-16.0); White Blood Count 3.4 X10*3/uL (4.8-10.8)
[2024-08-26 15:38] LABS: B Type Natriuretic Peptide 189 pg/mL (<100)
[2024-08-26 15:40] LABS: Troponin-I High Sensitivity 3.5 ng/L (<3.5-17.0)
[2024-08-26 15:53] LABS: VBG HCO3 29 mmol/L (22-26); VBG pCO2 37 mmHg; VBG pO2 171 mmHg
[2024-08-26 15:55] LABS: Venous Blood Gas Refer to POC result
[2024-08-26 16:04] LABS: Anion Gap 13 (12-20); Blood Urea Nitrogen 34 mg/dL (9-16); Calcium 8.5 mg/dL (8.4-10.2); Carbon Dioxide 27 mmol/L (22-29); Chloride 107 mmol/L (96-108); Creatinine Clr Calc Pharmacy 21.5; Estimated Glomerular Filt Rate 24; Glucose Random 107 mg/dL (60-115); Potassium 3.6 mmol/L (3.3-5.1); Sodium 143 mmol/L (135-145)
--- NOTE | 2024-08-26 16:22 | ECG_ITS ---
Test Reason : SOB Blood Pressure : */* mmHG Vent. Rate : 58 BPM Atrial Rate : * BPM P-R Int : * ms QRS Dur : 92 ms QT Int : 448 ms P-R-T Axes : * -4 -21 degrees QTcB Int : 439 ms Atrial fibrillation with slow ventricular response Low voltage QRS Inferior infarct , age undetermined Cannot rule out Anterior infarct (cited on or before 05-Oct-2021) Abnormal ECG When compared with ECG of 26-Aug-2024 15:08, Questionable change in initial forces of Anterior leads Nonspecific T wave abnormality, worse in Anterior leads Referred By: Buddy Allen Electronically Signed By: TRENTON BURGESS MD
[2024-08-26 16:42] LABS: Lactic Acid 1.5 mmol/L (0.5-2.0)
[2024-08-26 16:57] LABS: Influenza A PCR NEGATIVE (Negative); Influenza B PCR NEGATIVE (Negative); Resp Syncy Virus RNA Qual PCR NEGATIVE (Negative); SARS COV2 PCR INHOUSE NEGATIVE (Negative)
--- NOTE | 2024-08-26 17:11 | MHC.EDTECH ---
Dr. Alejandro biggs stated he did not need me draw the blue tube PTT, PTINR, RN aware and will cancel order at some point
--- NOTE | 2024-08-26 17:35 | P.HPHOSP_ITS ---
History of Present Illness Date of Service: 08/26/24 Attending physician on admission: [facility] Chief Complaint: sob, low bp this is an 84-year-old Anguillan-speaking female who was sent to the emergency department due to low blood pressure. History was obtained through the assistance of a diplomatic interpreter and the patient's son at the bedside. The patient had been sleepy today and reporting shortness of breath over the past 1 week. The family called a home urgent care service to, evaluate her. During their evaluation her blood pressure was noted to be low so they called the ambulance and she was brought to the emergency room for evaluation. On arrival in the emergency department her blood pressure was soft but stable. She was noted to be hypothermic with a temperature of 93.5 degrees. Creatinine of 1.98 is slightly above baseline. Chest x-ray showed cardiomegaly with CHF, BNP 189. For this she received a dose of IV Lasix. The cause of her hypothermia was unclear, TSH was normal. Possible lower extremity cellulitis with sided and she received IV Zosyn. Patient denies any fever. she has history of lower extremity lymphedema and does report increased swelling of both legs. Review of Systems 2 Review of Systems: Yes all other systems are reviewed and are negative Constitutional: Constitutional: Denies chills and Denies fever(s) Cardiovascular: Cardiovascular: Denies chest pain, Denies palpitations and Reports dyspnea Respiratory: Respiratory: Reports cough and Reports dyspnea Gastrointestinal: Gastrointestinal: Denies abdominal pain, Denies diarrhea, Denies nausea and Denies vomiting Endocrine: Endocrine: Denies palpitations COUNT INCLUDES THE [facility] Medical History Tricuspid valve regurgitation Pulmonary hypertension Acute on chronic right heart failure Idiopathic hypotension Sepsis Cellulitis of right leg Lymphedema Non-healing wound of right lower extremity Venous stasis dermatitis of right lower extremity CHF (congestive heart failure) Hypothyroid Afib Asthma HTN (hypertension) Family History Mother Gastric cancer Surgical History S/P hip replacement Social History Household Members: None Housing: Apartment Do you presently have visiting nurse or other home services: Yes (nursing 2-3 times weekly) Alcohol intake: never Comment: sleeping in recliner Patient Tobacco Use Status: Never used Tobacco Second Hand Smoke Exposure: No Advance Directives: Yes Advance Directives on File: Yes Advance Directives Date on File: 02/05/21 service: No Current occupational status: disabled Meds Allergies Allergy/AdvReac Type Severity Reaction Status Date / Time lisinopril [LISINOPRIL] Allergy Unknown UNKNOWN Verified 08/26/24 14:54 simvastatin [SIMVASTATIN] Allergy Unknown UNKNOWN Verified 08/26/24 14:54 Home Medications ?Medication ?Instructions ?Recorded ?Confirmed ?Last Taken ?Type cholecalciferol (vitamin D3) 50 50 mcg PO DAILY 02/04/21 07/30/24 05/28/24 History mcg (2,000 unit) capsule (Vitamin D3) ferrous sulfate 325 mg (65 mg 325 mg PO DAILY 02/04/21 07/30/24 05/28/24 History iron) tablet (FeroSul) loratadine 10 mg tablet 10 mg PO DAILY 02/04/21 07/30/24 05/28/24 History omeprazole 20 mg capsule,delayed 20 mg PO DAILY@0630 02/04/21 07/30/24 05/28/24 History release warfarin 2.5 mg tablet 2.5 mg PO DAILY 02/04/21 07/30/24 05/28/24 History fluticasone fur. 100 mcg-umeclid 1 puff inhalation DAILY 05/03/21 07/30/24 05/28/24 History 62.5 mcg-vilant 25 mcg inhalat.powder (Trelegy Ellipta) albuterol sulfate 2.5 mg/3 mL 2.5 mg inhalation Q4H PRN 08/09/21 07/30/24 Unknown History (0.083 %) solution for nebulization Shortness Of Breath montelukast 10 mg tablet 1 tab PO DAILY 08/09/21 07/30/24 05/28/24 History cyanocobalamin (vitamin B-12) 1,000 mcg PO DAILY 05/29/24 07/30/24 05/28/24 History 1,000 mcg tablet diltiazem HCl 240 mg 240 mg PO DAILY 05/29/24 07/30/24 05/28/24 History capsule,extended release 24 hr furosemide 40 mg tablet 40 mg PO BID 05/29/24 07/30/24 05/28/24 History levothyroxine 75 mcg tablet 75 mcg PO DAILY 05/29/24 07/30/24 05/28/24 History torsemide 20 mg tablet 40 mg PO BID 08/26/24 Unknown History Physical Exam 2 Vital Signs and Narrative: Vital Signs: Last Vital Signs Temp 94.7 F L 08/26/24 16:50 Pulse 67 08/26/24 17:10 Resp 16 08/26/24 17:10 BP 103/46 L 08/26/24 17:10 Pulse Ox 93 08/26/24 17:10 O2 Del Method Room Air 08/26/24 17:10 BMI result Body Mass Index 32.2 Const: General: cooperative, comfortable, no acute distress, alert and awake Nutritional Appearance: obese Orientation/consciousness: patient oriented x3 Resp: Effort & Inspection: normal respiratory effort, able to speak in complete sentences, no respiratory distress and no use of accessory muscles Cardio: Rate: bradycardic GI: Inspection: No distended Palpation (GI): Soft to palpation and nontender Skin: Other: small wound just above gluteal cleft, seems r/t friction does not appear infected Neuro: General: patient oriented x3 and moves all extremities Extrem: Other: b/l non-pitting edema; no erythema; wrapped in clean dry dressings Results Labs 08/26/24 15:09 08/26/24 15:38 Labs: Laboratory Results - last 24 hr 08/26/24 08/26/24 08/26/24 15:09 15:32 15:38 MCV 93.8 MCH 29.2 MCHC 31.1 RDW 14.2 Plt Count 183 D MPV 10.5 Immature Gran % (Auto) 0.3 Neut % (Auto) 50.5 Lymph % (Auto) 32.1 [place] % (Auto) 10.6 Eos % (Auto) 5.0 H Baso % (Auto) 1.5 Lymph # (Auto) 1.1 L [place] # (Auto) 0.4 Eos # (Auto) 0.2 Baso # (Auto) 0.1 Abs Immat Gran (auto) 0.01 Absolute Neuts (auto) 1.7 L Absolute Nucleated RBC 0.000 Nucleated RBC % (auto) 0.0 VBG pH VBG pCO2 VBG pO2 VBG HCO3 VBG O2 Saturation VBG Base Excess Anion Gap 13 Estim Creat Clear Calc 21.5 Estimated GFR 24 Random Glucose 107 Lactic Acid 1.5 Calcium 8.5 B-Natriuretic Peptide 189 H TSH 3.60 Influenza Type A (PCR) NEGATIVE Influenza Type B (PCR) NEGATIVE RSV RNA Qual (PCR) NEGATIVE SARS-CoV-2 RNA (RT-PCR) NEGATIVE 08/26/24 15:48 MCV MCH MCHC RDW Plt Count MPV Immature Gran % (Auto) Neut % (Auto) Lymph % (Auto) [place] % (Auto) Eos % (Auto) Baso % (Auto) Lymph # (Auto) [place] # (Auto) Eos # (Auto) Baso # (Auto) Abs Immat Gran (auto) Absolute Neuts (auto) Absolute Nucleated RBC Nucleated RBC % (auto) VBG pH 7.50 H VBG pCO2 37 VBG pO2 171 VBG HCO3 29 H VBG O2 Saturation 100.0 VBG Base Excess 6.0 Anion Gap Estim Creat Clear Calc Estimated GFR Random Glucose Lactic Acid Calcium B-Natriuretic Peptide TSH Influenza Type A (PCR) Influenza Type B (PCR) RSV RNA Qual (PCR) SARS-CoV-2 RNA (RT-PCR) Imaging Radiologist's Impressions: Impressions Chest X-Ray 08/26/24 16:10 IMPRESSION: Cardiomegaly with CHF. Electronically signed by: Jose Mcdonald MD 08/26/2024 04:[address] [facility] Assessment and Plan (1) Hypothermia: Status: Acute Plan this is an 84-year-old Anguillan-speaking female with history of chronic atrial fibrillation on Coumadin, obesity, chronic diastolic CHF, CKD 3, hypothyroidism, chronic lymphedema, moderate persistent asthma who was sent to the emergency department after visiting urgent care provider found her to be hypotensive at home and vitals showed hypothermia in the ED. Hypothermia core temperature improving with Lesvia Hugger TSH normal, check a.m. cortisol UA pending, no other source of infection idenified received empiric hydrocortisone in ED follow core temperate closely JEN on CKD3 ?cardiorenal pt reporting sob; cxr c/w CHF; no hypoxia received IV lasix in ED will hold further diuresis and assess response follow BMP if no improvement consider nephrology consult Acute on Chronic HFpEF hold further diuresis as above SIRS does meet sirs criteria with hypothermia and white count <4 no obvious source of infection at this time; UA pending received empiric zosyn, will defer further abx for now lactic acid normal blood cultures pending chronic b/l LE lymphedema legs do no appear infected received empiric abx in ED, will hold further abx for now wound care consult chronic atrial fibrillation INR pending at the time of admission moderate persistent asthma No acute exacerbation at this time Continue baseline medication hypothyroidism Continue Synthroid morbid obesity BMI 32.2 Weight loss encouraged med rec pending at the time of admission DVT prophylaxis-Lovenox Code status -full code Patient will likely require 2 midnight stay in the hospital for evaluation and management of hypothermia and acute on chronic CHF Quality Stroke Does the patient have a stroke diagnosis?: No VTE Prior VTE?: No VTE Risk Level:: Medical - moderate - high VTE Device Contraindication: Treatment Not Indicated VTE Drug Contraindication: N/A - Med Ordered
[2024-08-26] MEDS: 0.9 % Sodium Chloride 500 ML 999 ML IV (17:47)
[2024-08-26] MEDS: Furosemide 40 MG/4 ML VIAL IVPUSH (17:47)
[2024-08-26] MEDS: Piperacillin Sodium/Tazobactam 4.5 GM in 0.9 % Sodium Chloride 100 ML IV (17:48)
[2024-08-26] MEDS: Hydrocortisone Sod Succ/PF 100 MG VIAL IVPUSH (17:48)
--- OUTSIDE RECORDS SUMMARY | 2024-08-26 18:21 | XMS_ITS | Clinical Summary ---
Author Organization [facility] [facility] Address [address] [place] [address] Care Team Providers Care Physician Office Rep Name Role Phone Rishi Lion MD Primary Care Provide r Allergies Active Allergy Reactions Criticality Noted Date Comments Xe-Nmnisrnta-Rzzoqcoblmqha 3 Digoxin 08/05/2022 Pt an sson unsure [...] age to complete this topic Care Teams Physician Office Rep Relationship Specialty Start Date End Date Rishi Lion MD [address] [place] [address] PCP - General Internal Medicine 08/05/22
--- OUTSIDE RECORDS SUMMARY | 2024-08-26 18:21 | XMS_ITS | Encounter Summary ---
Author Organization [facility] Address [address] [place] [address] Care Team Providers Care Lie Detector Operator Name Role Phone Elizabet Shannon MD Primary Care Provider [phone] Encounter Details Date Type Department Care Team (Latest Contact Info) Description 06/04/2024 11:00 AM EST Anticoagulation - Warfarin Visit Coumadin [address] [phone] Atrial fibrillation, 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 (CMS/HCC) (Primary Dx); correction (current) use of anticoagulants Social History Tobacco Use Types Packs/Day Years Used Date Smoking Tobacco: Never Smokeless Tobacco: Never Alcohol Use Standard Drinks/Week Comments Never 0 (1 standard drink = 0.6 oz pur e alcohol) Interpersonal Safety Answer Date Record ed Physical Abuse 06/18/2024 Verbal Abuse 06/18/2024 Comments Unknown Sex and Gender Information Value Date Recorded Sex Assigned at Female 08/05/2024 10:54 AM EST Legal Sex Female 5:07 AM EST Gender Identity Female 08/05/2024 10:54 AM EST Sexual Orientation Straight 08/05/2024 10 :54 AM EST documented as of this encounter Plan of Treatment Upcoming Encounters Date Type Department Care Team (Latest Contact Info) Description 08/27/2024 10:40 AM EST Anticoagulation - Warfarin Visit Coumadin Clinic - [address] [phone] 09/03/2024 11:00 AM EDT Appointment [facility] [address] [facility] [address] [place] [phone] 09/12/2024 10:00 AM EDT Consult Orthopedic Surgery - [place] [address] [facility] [address] [place] [phone] Leeroy Schneider DPM [address] [facility] [address] [place] [address] 09/26/2024 11:30 AM EDT Office Visit Pulmonolgy - [place] [address] [facility] [address] [place] [phone] Chelsea Shi NP 175 [facility] [address] [place] [address] 10/03/2024 7:40 AM EDT Office Visit [facility] [address] [facility] [address] [place] [phone] Mikael Montoya NP [address] [place] [address] 11/26/2024 11:00 AM EDT Appointment Radiology Department - [address] [phone] documented as of this encounter Procedures Procedure Name Priority Date/Time Associated Diagnosis Comments POC PROTIME INR BLOOD Routine 06/04/2024 Atrial fibrillation, 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 (CMS/HCC) correction (current) use of anticoagulants documented in this encounter Results * POC Protime INR Blood (06/04/2024) Lot Number INR POC 2.8 Prothrombin Time POC Exp Date Blood 06/04/2024 us Jean Hatch MD POINT OF CARE TEST ENTER/ED IT ORDERABLES Edited Result - Final documented in this encounter Visit Diagnoses Diagnosis Atrial fibrillation, 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 (CMS/HCC)- Primary emt intermediate (current) use of anticoagulants Long-term (current) use of anticoagulants Encounter for screening mammogram for breast cancer documented in this encounter Additional Health Concerns Infection Onset Date Last Indicated Resolved Time Respiratory Rule-Out 06/18/2024 06/18/2024 024 5:27 PM EST COVID-19 Rule-Out 06/18/2024 06/18/2024 06/18/2024 5:27 PM EST documented as of this encounter Care Teams Lie Detector Operator Relationship Specialty Start Date End Date Elizabet Shannon MD [address] [place] [address] PCP - General Internal Medicine 05/06/24 documented as of this encounter
--- OUTSIDE RECORDS SUMMARY | 2024-08-26 18:21 | XMS_ITS | Encounter Summary ---
Author Organization [facility] Address [address] [place] [address] Care Team Providers Care Respiratory Care Practitioner Name Role Phone Elizabet Shannon MD Primary Care Provider [phone] Encounter Details Date Type Department Care Team (Late st Contact Info) Description 06/28/2024 Lab Requisition [facility] - Main Lab [address] [facility] [place] [address] Ricardo Rhodes MD [address] [place] [address] Unspecified atrial fibrillation (CMS/HCC); Other thrombophilia (CMS/HCC) [...] Anticoagulation - Warfarin Visit [facility] - [address] [phone] 09/03/2024 11:00 AM EDT Appointment [facility] Infusion Center 271 [facility] 2nd [place] [phone] 09/12/2024 10:00 AM EDT Consult Orthopedic Surgery - [place] 250 [address] [facility] [address] [place] [phone] Leeroy Schneider DPM 175 [facility] 250 [place] [address] 09/26/2024 11:30 AM EDT Office Visit Pulmonolgy - [place] 175 [facility] 200 [place] [phone] Chelsea Shi NP 175 [facility] 200 [place] [address] 10/03/2024 7:40 AM EDT Office Visit [facility] - [facility] [address] 300 [facility] 154 [place] [phone] Mikael Montoya NP 300 [place] [address] 11/26/2024 11:00 AM EDT Appointment Radiology Department - [address] [phone] documented as of this encounter Procedures Procedure Name Priority Date/Time Associated Diagnosis Comments PROTHROMBIN TIME WITH INR Routine 07/01/2024 7:21 AM EST Unspecified atrial fibrillation (CMS/HCC) Other thrombophilia (CMS/HCC) documented in this encounter Results * (ABNORMAL) Prothrombin time with INR (07/01/2024 7:21 AM EST) Protime 18.5(H) 10.6 - 13.9 sec LAB COAGULATION METHOD 07/01/2024 11:35 AM EST [facility] INR 1.5 LAB COAGULATION METHOD 07/01/2024 11:35 AM EST [facility] Blood Venous blood specimen / Unknown Venipuncture / Unknown 07/01/2024 7:21 AM EST 07/01/2024 11:03 AM EST us Ricardo Rhodes MD LAB BLOOD ORDERABLES Final Resul t [facility] 299 [place] [address], documented in this encounter Visit Diagnoses Diagnosis Unspecified atrial fibrillation (CMS/HCC) Other thrombophilia (CMS/HCC) Encounter for screening mammogram for breast cancer documented in this encounter Care Teams Respiratory Care Practitioner Relationship Specialty Start Date End Date Elizabet Shannon MD [address] [place] [address] PCP - General Internal Medicine 05/06/24 documented as of this encounter
--- OUTSIDE RECORDS SUMMARY | 2024-08-26 18:21 | XMS_ITS | Encounter Summary ---
Author Organization [facility] Address [address] [place] [address] Care Team Providers Care Entry Level Staff Accountant Name Role Phone Elizabet Shannon MD Primary Care Provider [phone] Encounter Details Date Type Department Care Team (Late st Contact Info) Description 06/27/2024 Lab Requisition [facility] - Main Lab [address] [facility] [place] [address] Bruce Petersen MD [facility] [place] [address] Hypothyroidism, unspecified; Acute kidney failure, unspecified (CMS/HCC); [...] Anticoagulation - Warfarin Visit [facility]in Clinic - [address] [phone] 09/03/2024 11:[address] [facility] 271 [facility] 2nd [place] [phone] 09/12/2024 10:00 AM EDT Consult Orthopedic Surgery - [place] 250 175 [facility] 250 [place] [phone] Leeroy Schneider DPM 175 [facility] 250 [place] [address] 09/26/2024 11:30 AM EDT Office Visit Pulmonolgy - [place] 175 [facility] 200 [place] [address] Chelsea Shi NP 175 [facility] 200 [place] [address] 10/03/2024 7:40 AM EDT Office Visit [facility] Associates - [facility] [address] [facility] 154 [place] [address] Mikael Montoya NP 300 [place] [address] 11/26/2024 11:00 AM EDT Appointment Radiology Department - [address] [phone] documented as of this encounter Procedures Procedure [...] stimulating hormone (06/27/2024 8:37 AM EST) Pathologist [facility] TSH 2.33 0.40 - 4.00 mcIU/mL LAB CHEMISTRY METHOD 06/27/2024 11:[address] [facility] Blood Venous blood specimen / Unknown Venipuncture / Unknown 06/27/2024 8:37 AM EST 06/27/2024 10:21 AM EST us Bruce Petersen MD LAB BLOOD ORDERABLES Final R esult [facility] 299 [place] [address], * (ABNORMAL) Comprehensive metabolic panel (06/27/2024 8:37 AM EST) Pathologist [facility] Sodium 143 133 - 145 mmol/L LAB CHEMISTRY METHOD 06/27/2024 11:[address] [facility] Potassium 4.3 3.5 - 5.5 mmol/L LAB CHEMISTRY METHOD 06/27/2024 11:[address] [facility] Chloride 103 96 - 110 mmol/L LAB CHEMISTRY METHOD 06/27/2024 11:25 AM [facility] CO2 38(H) 21 - 32 mmol/L LAB CHEMISTRY METHOD 06/27/2024 11:25 AM [facility] Anion Gap 2(L) 3 - 11 LAB CHEMISTRY METHOD 06/27/2024 11:25 AM [facility] Glucose 81 70 - 100 mg/dL LAB CHEMISTRY METHOD 06/27/2024 11:25 AM [facility] BUN 47(H) 5 - 25 mg/dL LAB CHEMISTRY METHOD 06/27/2024 11:25 AM [facility] Creatinine 1.94(H) 0.50 - 1.10 mg/dL LAB CHEMISTRY METHOD 06/27/2024 11:25 AM [facility] eGFR 25(L) >=60 mL/min/1. 73m2 LAB CHEMISTRY METHOD 06/27/2024 11:25 AM [facility] Comment:Calculation based on the??Chronic Kidney Disease Epidemiology Collaboration (CKD-EPI) equation refit??without adjustment for race. BUN/Creatinine Ratio 24.2 LAB CHEMISTRY METHOD 06/27/2024 11:25 AM [facility] Calcium 8.7 8.5 - 10.5 mg/dL LAB CHEMISTRY METHOD 06/27/2024 11:25 AM [facility] AST (SGOT) 28 10 - 42 unit/L LAB CHEMISTRY METHOD 06/27/2024 11:25 AM [facility] ALT (SGPT) 14 10 - 60 unit/L LAB CHEMISTRY METHOD 06/27/2024 11:25 AM [facility] Alkaline Phosphatase 107 42 - 121 unit/L LAB CHEMISTRY METHOD 06/27/2024 11:25 AM [facility] Total Protein 8.1(H) 6.0 - 8.0 g/dL LAB CHEMISTRY METHOD 06/27/2024 11:25 AM [facility] Albumin 2.7(L) 3.2 - 5.0 g/dL LAB CHEMISTRY METHOD 06/27/2024 11:[address] [facility] Total Bilirubin 0.5 0.0 - 1.4 mg/dL LAB CHEMISTRY METHOD 06/27/2024 11:[address] [facility] Blood Venous blood specimen / Unknown Venipuncture / Unknown 06/27/2024 8:37 AM EST 06/27/2024 10:21 AM EST Bruce Petersen MD LAB BLOOD ORDERABLES Final R esult Performing Organization Address City/[facility]/ZIP Co de Phone Number [facility] 299 [place] [address], [place] [phone] * (ABNORMAL) Prothrombin time with INR (06/27/2024 8:37 AM EST) Protime 19.3(H) 10.6 - 13.9 sec LAB COAGULATION METHOD 06/27/2024 10:[address] [facility] INR 1.5 LAB COAGULATION METHOD 06/27/2024 10:[address] [facility] Blood Venous blood specimen / Unknown Venipuncture / Unknown 06/27/2024 8:37 AM EST 06/27/2024 10:21 AM EST Bruce Petersen MD LAB BLOOD ORDERABLES Final R esult [facility] 299 [place] [address], [place] [phone] * (ABNORMAL) Complete blood count (06/27/2024 8:37 AM EST) WBC 5.0 4.8 - 10.8 K/mcL LAB HEMETOLOGY METHOD 06/27/2024 10:[address] [facility] RBC 3.90 3.80 - 4.80 M/mcL LAB HEMETOLOGY METHOD 06/27/2024 10:58 AM [facility] Hemoglobin 11.5 11.5 - 16.0 g/dL LAB HEMETOLOGY METHOD 06/27/2024 10:58 AM [facility] Hematocrit 38.6 35.0 - 47.0 % LAB HEMETOLOGY METHOD 06/27/2024 10:58 AM [facility] MCV 99.2(H) 79.0 - 98.0 FL LAB HEMETOLOGY METHOD 06/27/2024 10:58 AM [facility] MCH 29.6 27.0 - 32.0 pcg LAB HEMETOLOGY METHOD 06/27/2024 10:58 AM [facility] MCHC 29.8(L) 32.0 - 37.0 g/dL LAB HEMETOLOGY METHOD 06/27/2024 10:58 AM [facility] RDW 13.6 11.0 - 15.0 % LAB HEMETOLOGY METHOD 06/27/2024 10:58 AM [facility] Platelets 226 130 - 400 K/mcL LAB HEMETOLOGY METHOD 06/27/2024 10:58 AM [facility] MPV 10.7 7.0 - 11.0 FL LAB HEMETOLOGY METHOD 06/27/2024 10:58 AM [facility] NRBC 0.0 <1.0 % LAB HEMETOLOGY METHOD 06/27/2024 10:58 AM [facility] NRBC Absolute 0.00 <0.10 K/mcL LAB HEMETOLOGY METHOD 06/27/2024 10:58 AM [facility] Blood Venous blood specimen / Unknown Venipuncture / Unknown 06/27/2024 8:37 AM EST 06/27/2024 10:21 AM EST Bruce Petersen MD LAB BLOOD ORDERABLES Final R esult [facility] 299 [place] [address], documented in this encounter Visit Diagnoses Diagnosis Hypothyroidism, unspecified Acute kidney failure, unspecified (CMS/HCC) Acute kidney failure, unspecified Heart failure, unspecified (CMS/HCC) Heart failure, unspecified Essential (primary) hypertension Unspecified essential hypertension Unspecified atrial fibrillation (CMS/HCC) Encounter for screening mammogram for breast cancer documented in this encounter Care Teams Entry Level Staff Accountant Relationship Specialty Start Date End Date Elizabet Shannon MD [address] [place] [address] PCP - General Internal Medicine 05/06/24 documented as of this encounter
--- OUTSIDE RECORDS SUMMARY | 2024-08-26 18:21 | XMS_ITS | Encounter Summary ---
Author Organization [facility] Address [address] [place] [address] Care Team Providers Care Mate First Name Role Phone Elizabet Shannon MD Primary Care Provider [phone] Encounter Details Date Type Department Care Team (Latest Contact Info) Description 07/03/2024 Lab Requisition [facility] - Main Lab [address] [facility] [place] [address] Bruce Petersen MD [address] [place] [address] Other thrombophilia (CMS/HCC); custodial (current) use of anticoagulants Social History Tobacco [...] Anticoagulation - Warfarin Visit Coumadin Clinic - [address] [phone] 09/03/2024 11:00 AM EDT Appointment [facility] Infusion Center 271 [facility] 2nd [place] [phone] 09/12/2024 10:00 AM EDT Consult Orthopedic Surgery - [place] 250 175 [facility] [address] [place] [address] Leeroy Schneider, ANDREW 175 [facility] 250 [place] [address] 09/26/2024 11:30 AM EDT Office Visit Pulmonolgy - [place] 175 [facility] [address] 200 [place] [address] Chelsea Shi NP 175 [facility] 200 [place] [address] 10/03/2024 7:40 AM EDT Office Visit [facility] - [facility] 154 300 [facility] 154 [place] [address] Mikael Montoya NP 300 [place] [address] 11/26/2024 11:00 AM EDT Appointment Radiology Department - [address] [phone] documented as of this encounter Procedures Procedure Name Priority Date/Time Associated Diagnosis Comments PROTHROMBIN TIME WITH INR Routine 07/04/2024 8:20 AM EST Other thrombophilia (CMS/HCC) joint terminal attack controller (current) use of anticoagulants documented in this encounter Results * (ABNORMAL) Prothrombin time with INR (07/04/2024 8:20 AM EST) Protime 17.6(H) 10.6 - 13.9 sec LAB COAGULATION METHOD 07/04/2024 10:07 AM EST [facility] INR 1.4 LAB COAGULATION METHOD 07/04/2024 10:07 AM EST [facility] Blood Venous blood specimen / Unknown Venipuncture / Unknown 07/04/2024 8:20 AM EST 07/04/2024 9:45 AM EST us Bruce Petersen MD LAB BLOOD ORDERABLES Final R esult [facility] 299 [place] [address], documented in this encounter Visit Diagnoses Diagnosis Other thrombophilia (CMS/HCC) custodial (current) use of anticoagulants Long-term (current) use of anticoagulants Encounter for screening mammogram for breast cancer documented in this encounter Care Teams Mate First Relationship Specialty Start Date End Date Elizabet Shannon MD [address] [place] [address] PCP - General Internal Medicine 05/06/24 documented as of this encounter
--- OUTSIDE RECORDS SUMMARY | 2024-08-26 18:21 | XMS_ITS | Encounter Summary ---
Author [facility] Address [address] [place] [address] Care Team Providers Care Cherry Pitter Name Role Phone Elizabet Shannon MD Primary Care Provider [phone] Reason for Visit * Reason Onset Date Comments ECHOCARDIOGRAM 07/22/2024 Encounter Details Date Type Department Care Team (Late st Contact Info) Description 07/22/[address] [facility] Cardiology Associates - [facility] [address] 300 [facility] 154 [place] [address] Mikael Montoya NP 300 [place] [address] ECHOCARDIOGRAM Social History Tobacco Use Types Packs/Day [...] AM EST documented as of this encounter Progress Notes [...] is scheduled for an upcoming echo at [facility] on 07/24/24. Patient recently had an echo done on 06/20/24. Would you like to keep upcoming echo? documented in this encounter Plan of Treatment Upcoming Encounters Date Type Department Care Team (Latest Contact Info) Description 08/27/2024 10:40 AM EST Anticoagulation - Warfarin Visit Coumadin [address] [address] 09/03/2024 11:00 AM EDT Appointment [facility] Infusion Center [address] [facility] 2nd [place] [phone] 09/12/2024 10:00 AM EDT Consult Orthopedic Surgery - [place] 250 [address] [facility] [address] [place] [phone] Leeroy Schneider DPM [address] [facility] [place] 250 [place] [address] 09/26/2024 11:30 AM EDT Office Visit Pulmonolgy - [place] [address] [facility] [address] [place] [address] Chelsea Shi NP 175 [facility] 200 [place] [address] 10/03/2024 7:40 AM EDT Office Visit [facility]iology Associates - [facility] 154 300 [facility] 154 [place] [address] Mikael Montoya NP 300 [place] [address] 11/26/2024 11:00 AM EDT Appointment Radiology Department - [address] [place] [address] [phone] documented as of this encounter Visit Diagnoses Not on filedocumented in this encounter Care Teams Cherry Pitter Relationship Specialty Start Date End Date Elizabet Shannon MD 175 [facility] 200 [place] [address] PCP - General Internal Medicine 05/06/24 documented as of this encounter
--- OUTSIDE RECORDS SUMMARY | 2024-08-26 18:21 | XMS_ITS | Encounter Summary ---
Author Organization [facility] Address [address] [place] [address] Care Team Providers Care Skiver Box Toe Name Role Phone Elizabet Shannon MD Primary Care Provider [phone] Encounter Details Date Type Department Care Team (Latest Contact Info) Description 07/05/2024 Lab Requisition [facility] - Main Lab 299 [facility] [place] [address] Bruce Petersen MD [address] [place] [address] Unspecified atrial fibrillation (CMS/HCC); Other thrombophilia (CMS/HCC) [...] Anticoagulation - Warfarin Visit Coumadin Clinic - [address] [phone] 09/03/2024 11:00 AM EDT Appointment [facility] Infusion Center 271 [facility] 2nd [place] [address] 09/12/2024 10:00 AM EDT Consult Orthopedic Surgery - [place] 250 175 [facility] 250 [place] [phone] Leeroy Schneider DPM 175 [facility] 250 [place] [address] 09/26/2024 11:30 AM EDT Office Visit Pulmonolgy - [place] 175 [facility] 200 [place] [address] Chelsea Shi NP [address] [address] 10/03/2024 7:40 AM EDT Office Visit [facility] Associates - [facility] 154 300 [facility] 154 [place] [phone] Mikael Montoya NP 300 [place] [address] 11/26/2024 11:00 AM EDT Appointment Radiology Department - [address] [phone] documented as of this encounter Visit Diagnoses Diagnosis Unspecified atrial fibrillation (CMS/HCC) Other thrombophilia (CMS/HCC) Encounter for screening mammogram for breast cancer documented in this encounter Care Teams Skiver Box Toe Relationship Specialty Start Date End Date Elizabet Shannon MD [address] [address] PCP - General Internal Medicine 05/06/24 documented as of this encounter
--- OUTSIDE RECORDS SUMMARY | 2024-08-26 18:22 | XMS_ITS | Encounter Summary ---
Author Organization [facility] Address [address] [place] [address] Care Team Providers Care Analytics Specialist Name Role Phone Elizabet Shannon MD Primary Care Provider [phone] Encounter Details Date Type Department Care Team (Latest Contact Info) Description 08/07/2024 11:10 AM EST Anticoagulation - Warfarin Visit Coumadin [address] [phone] Atrial fibrillation, 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 (CMS/HCC) (Primary Dx); residential (current) use of anticoagulants Social History Tobacco [...] Anticoagulation - Warfarin Visit Coumadin Clinic - [address] [phone] 09/03/2024 11:[address] [facility]fusion Center 271 [facility] 2nd [place] [phone] 09/12/2024 10:00 AM EDT Consult Orthopedic Surgery - [place] [address] [facility] 250 [place] [address] Leeroy Schneider DPM 175 [facility] 250 [place] [address] 09/26/2024 11:30 AM EDT Office Visit Pulmonolgy - [place] [address] [facility] 200 [place] [phone] Chelsea Shi NP 175 [facility] 200 [place] [address] 10/03/2024 7:40 AM EDT Office Visit [facility] Card[facility] - [facility] 154 300 [facility] 154 [place] [phone] Mikael Montoya NP 300 [place] [address] 11/26/2024 11:00 AM EDT Appointment Radiology Department - [address] [phone] documented as of this encounter Procedures Procedure Name Priority Date/Time Associated Diagnosis Comments POC PROTIME INR BLOOD Routine 08/07/2024 Atrial fibrillation, 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 (CMS/HCC) residential (current) use of anticoagulants documented in this encounter Results * POC Protime INR Blood (08/07/2024) Lot Number INR POC 4.1 Prothrombin Time POC Exp Date Blood 08/07/2024 Doe Hair MD POINT OF CARE TEST ENTER/EDIT ORDERABLES Edited Result - Final documented in this encounter Visit Diagnoses Diagnosis Atrial fibrillation, 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 (CMS/HCC)- 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
--- OUTSIDE RECORDS SUMMARY | 2024-08-26 18:22 | XMS_ITS | Encounter Summary ---
Author Organization [facility] Address [address] [place] [address] Care Team Providers Care Decorative Greens Cutter Name Role Phone Elizabet Shannon MD Primary Care Provider [phone] Reason for Visit * Reason Onset Date Comments Request For Order(s) 08/21/2024 [facility] Discharge Summary Encounter Details Date Type Department Care Team (Late st Contact Info) Description 08/21/2024 [facility] - [address] [place] [address] Janet Mcleod MA Request For Order(s) ([facility] Discharge Summary) Social History Tobacco Use Types Packs/Day Years [...] Progress Notes * Janet Mcleod MA - 08/23/2024 7:57 AM EST Scanned into chart and faxed to [facility] [phone] * Janet Mcleod MA - 08/21/2024 8:43 AM EST [facility] Discharge Summary Please sign & documented in this encounter Plan of Treatment Upcoming Encounters Date Type Department Care Team (Latest Contact Info) Description 08/27/2024 10:40 AM EST Anticoagulation - Warfarin Visit Coumadin Clinic - [address] [address] 09/03/2024 11:00 AM EDT Appointment [facility] Center 271 [facility] 2nd [place] [address] 09/12/2024 10:00 AM EDT Consult Orthopedic Surgery - [place] 250 175 [facility] 250 [place] [phone] Leeroy Schneider DPM [address] [address] 09/26/2024 11:30 AM EDT Office Visit Pulmonolgy - [place] 175 [facility] 200 [place] [address] Chelsea Shi NP 175 [facility] 200 [place] [address] 10/03/2024 7:40 AM EDT Office Visit [facility] - [facility] 154 300 [facility] 154 [place] [phone] Mikael Montoya NP 300 [place] [address] 11/26/2024 11:00 AM EDT Appointment Radiology Department - [address] [phone] documented as of this encounter Visit Diagnoses Not on filedocumented in this encounter Care Teams Decorative Greens Cutter Relationship Specialty Start Date End Date Elizabet Shannon MD [address] [place] [address] PCP - General Internal Medicine 05/06/24 documented as of this encounter
--- OUTSIDE RECORDS SUMMARY | 2024-08-26 18:22 | XMS_ITS | Encounter Summary ---
Author Organization [facility] Address [address] [place] [address] Care Team Providers Care Precinct Police Captain Name Role Phone Elizabet Shannon MD Primary Care Provider [phone] Reason for Visit * Episode Based Medications (Routine) - Pending Review Specialty Diagnoses / Procedures Referred By Colten gilliland Referred To Contact Diagnoses Moderate asthma without complication, unspecified whether persistent Evangelina Lou MD [address] [address] Phone: tel: fax: [address] [address] Phone: tel: fax: Referral ID Status Reason Start Date Expiration Date V isits Requested Visits Authorized [id number] Pending Review 05/08/2024 05/08/202507 20 Encounter Details Date Type Department Care Team (Latest Contact Info) Description 08/20/2024 10:56 AM EST - 08/20/2024 11:59 PM EST Hospital Encounter [address] [address] Evangelina Lou MD [address] [address] Moderate asthma without complication, unspecified whether persistent [...] AM EST documented as of this encounter Last Filed Vital Signs Vital Sign Reading Time Taken Comments Blood Pressure 94/50 08/20/2024 11:09 AM EST Pulse 65 08/20/2024 11:09 AM EST Temperature 36.6 ??C (97.8 ??F) 08/20/2024 11:[address] Respiratory Rate - - Oxygen Saturation 99% 08/20/2024 11:09 AM EST Inhaled Oxygen Concentration - - Weight - - Height - - Body Mass Index - - documented in this encounter Medications at Time of Discharge acetaminophen (TYLENOL) 500 mg tablet TAKE 1 TABLET BY MOUTH EVERY 6 HOURS NEEDED FOR PAIN 30 tablet 1 07/11/2024 albuterol 2.5 mg /3 mL (0.083 %) nebulizer solutionIndicatio ns:Severe persistent asthma with exacerbation (CMS/HCC) Take 3 mL (2.5 mg total) by nebulization every 4 (four) hours if needed for wheezing. 75 mL 3 07/11/2024 albuterol HFA (Ventolin HFA) 90 mcg/actuation inhalerIndication s:Severe persistent asthma with exacerbation (CMS/HCC) Inhale 2 puffs by mouth every 4 (four) hours if needed for wheezing or shortness of breath. 8 g 5 07/11/2024 cholecalciferol (VITAMIN D-3) 50 mcg (2,000 unit) tablet Take 1 tablet (2,000 Units total) by mouth 1 (one) time each day. cyanocobalamin (VITAMIN B-12) 1,000 mcg tablet TAKE 1 TABLET BY MOUTH DAILY. 30 tablet 2 08/13/2024 dilTIAZem CD (CARDIZEM CD) 240 mg 24 [...] 1 TABLET BY MOUTH DAILY. 28 tablet 08/13/2024 montelukast (SINGULAIR) 10 mg tablet Take 1 tablet (10 mg total) by mouth at bedtime. omeprazole (PriLOSEC) [address] capsule Take 1 capsule (20 mg total) by mouth 1 (one) time each day. Do not crush or chew. torsemide (DEMADEX) 20 mg tablet Take 2 tablets (40 mg total) by mouth 2 (two) times daily morning and afternoon. 120 each 11 07/11/2024 6 Trelegy Ellipta 100-62.5-25 mcg inhaler INHALE 1 PUFF BY MOUTH DAILY. 60 each 2 08/13/2024 warfarin (COUMADIN) 5 mg tablet Take 0.5 tablets (2.5 mg total) by mouth 1 (one) time each day. 90 tablet 1 08/06/2024 documented as of this encounter Discharge Disposition Disposition Code Departure Means Destination Home or Self Care documented in this encounter Progress Notes * Ct Agustin RN - 08/20/2024 11:00 AM EST Patient arrives ambulatory to unit for treatment of xolair. Son assists patient with translation. Patient has been in and out of the hospital due to lower ext swelling, infections, sob with fluid in lungs. Patient states that she's doing well today. 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 Vitals are stable. Xolair administered with 3 different injections to amount 375 mg dose. 2 subcutaneous injections in the right upper back of arm and 1 injection subcutaneous into the left upperback of arm. Patient tolerated procedure well. Patient and son anxious to leave due to ride concerns, did not wait for observation. Patient discharged stable, via wheelchair accompanied by her son documented in this encounter Plan of Treatment Upcoming Encounters Date Type Department Care Team (Latest Contact Info) Description 08/27/2024 10:40 AM EST Anticoagulation - Warfarin Visit [facility] - [address] [address] 09/03/2024 11:[address] [facility] [address] [facility] 2nd [place] [phone] 09/12/2024 10:00 AM EDT Consult Orthopedic Surgery - [place] 250 175 [facility] 250 [place] [phone] Leeroy Schneider DPM 175 [facility] 250 [place] [address] 09/26/2024 11:30 AM EDT Office Visit Pulmonolgy - [place] 175 [facility] 200 [place] [phone] Chelsea Shi NP [address] [address] 10/03/2024 7:40 AM EDT Office Visit [facility] - [facility] 154 300 [facility] 154 [place] [phone] Mikael Montoya NP 300 [place] [address] 11/26/2024 11:00 AM EDT Appointment Radiology Department - [address] [address] documented as of this encounter Visit Diagnoses Diagnosis Moderate asthma without complication, unspecified whether persistent- Primary Encounter for screening mammogram for breast cancer documented in this encounter Administered Medications Inactive Administered Medications - up to 3 most recent administrations Medication Order MAR Action Action Date Dose Rate Site omalizumab (XOLAIR) injection 375 mg 375 mg, subcutaneous, Once, On Mon08/20/24 at 1145, For 1 dose, Due to viscosity, the injection may take 5-10 seconds to administer. Do not administer more than 150 mg per injection site.Indications:Moderate asthma without complication, unspecified whether persistent Given 08/20/2024 12:08 PM EST 375 mg Right Upper Arm (Back) documented in this encounter Orders Medications Ordered That Homer ht Not Have Been Administered Count Last Ordered Date First Ordered Date omalizumab (XOLAIR) injection 375 mg 1 07/28 Nursing Count Last Ordered Date First Orde red Date ONC NURSING COMMUNICATION 1 08/20/2024 ONC NURSING COMMUNICATION 5 1 08/20/2024 ONC NURSING COMMUNICATION 7 2 08/20/2024 ONC PROVIDER COMMUNICATION 2 1 08/20/2024 documented in this encounter Care Teams Precinct Police Captain Relationship Specialty Start Date End Date Elizabet Shannon MD [address] [place] [address] PCP - General Internal Medicine 05/06/24 documented as of this encounter
--- OUTSIDE RECORDS SUMMARY | 2024-08-26 18:22 | XMS_ITS | Encounter Summary ---
Author Organization [facility] Address [address] [place] [address] Care Team Providers Care Housekeeper Supervisor Name Role Phone Elizabet Shannon MD Primary Care Provider [phone] Encounter Details Date Type Department Care Team (Latest Contact Info) Description 08/21/2024 11:00 AM EST Anticoagulation - Warfarin Visit Coumadin [address] [phone] Atrial fibrillation, 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 (CMS/HCC) (Primary Dx); custodial (current) use of anticoagulants Social History [...] Anticoagulation - Warfarin Visit Coumadin Clinic - [address] [phone] 09/03/2024 11:00 AM EDT Appointment [facility] 271 [facility] 2nd [place] [address] 09/12/2024 10:00 AM EDT Consult Orthopedic Surgery - [place] 250 175 [facility] 250 [place] [phone] Leeroy Schneider DPM 175 [facility] 250 [place] [address] 09/26/2024 11:30 AM EDT Office Visit Pulmonolgy - [place] 175 [facility] 200 [place] [phone] Chelsea Shi NP 175 [facility] 200 [place] [address] 10/03/2024 7:40 AM EDT Office Visit [facility] - [facility] 154 300 [facility] 154 [place] [phone] Mikael Montoya NP 300 [place] [address] 11/26/2024 11:00 AM EDT Appointment Radiology Department - [address] [phone] documented as of this encounter Procedures Procedure Name Priority Date/Time Associated Diagnosis Comments POC PROTIME INR BLOOD Routine 08/21/2024 Atrial fibrillation, 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 (CMS/HCC) custodial (current) use of anticoagulants documented in this encounter Results * POC Protime INR Blood (08/21/2024) Lot Number INR POC 5.8 Prothrombin Time POC Exp Date Blood 08/21/2024 Doe Hair MD POINT OF CARE TEST ENTER/EDIT ORDERABLES Final Result documented in this encounter Visit Diagnoses Diagnosis Atrial fibrillation, 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 (CMS/HCC)- Primary 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
--- OUTSIDE RECORDS SUMMARY | 2024-08-26 18:22 | XMS_ITS | Encounter Summary ---
Author Organization [facility] Address [address] [place] [address] Care Team Providers Care Document Coordinator Name Role Phone Elizabet Shannon MD Primary Care Provider [phone] Reason for Visit * Episode Based Medications (Routine) - Pending Review Specialty Diagnoses / Procedures Referred By Colten gilliland Referred To Contact Diagnoses Moderate asthma without complication, unspecified whether persistent Evangelina Lou MD [address] [address] Phone: tel: fax: [address] [address] Phone: tel: fax: Referral ID Status Reason Start Date Expiration Date V isits Requested Visits Authorized [id number] Pending Review 05/08/2024 05/08/2025 25 Encounter Details Date Type Department Care Team (Latest Contact Info) Description 08/05/2024 10:56 AM EST - 08/05/2024 11:59 PM EST Hospital Encounter [address] [address] Evangelina Lou MD [address] [address] Moderate asthma without complication, unspecified [...] Sign Reading Time Taken Comments Blood Pressure 92/69 08/05/2024 11:03 AM EST Pulse 57 08/05/2024 11:03 AM EST Temperature 35.7 ??C (96.3 ??F) 08/05/2024 11:[address] Respiratory Rate 20 08/05/2024 11:03 AM EST Oxygen Saturation 99% 08/05/2024 11:03 AM EST Inhaled Oxygen Concentration - - [...] day if needed (cough). 30 tablet 07/16/2024 levothyroxine (SYNTHROID, LEVOTHROID) 75 mcg tablet Take [...] and afternoon. 120 each 11 07/11/2024 6 cyanocobalamin (VITAMIN B-12) 1,000 mcg tablet Take 1 tablet (1,000 mcg total) by mouth 1 (one) time each day. 5 loratadine (CLARITIN) 10 mg tablet TAKE 1 TABLET BY MOUTH DAILY. 28 tablet 07/16/2024 5 Trelegy Ellipta 100-62.5-25 mcg inhaler Inhale 1 puff (100 mcg total) by mouth 1 (one) time each day. 60 each 1 07/11/2024 5 warfarin (COUMADIN) 5 mg tablet Take 0.5 tablets (2.5 mg total) by mouth 1 (one) time each day. 90 tablet 1 06/25/2024 5 documented as of this encounter Discharge Disposition Disposition Code Departure Means Destination Home or Self Care documented in this encounter Progress Notes * Tapan Xavier RN - 08/05/2024 11:00 AM EST Patient arrives via wheelchair accompanied by son for xolair injections. Stable patient assessment.Patient resting comfortably in chair with call dempsey in reach. 1156-Xolair injections administered in 3 separate syringes subq, [...] Anticoagulation - Warfarin Visit Coumadin Clinic - [address] [address] 09/03/2024 11:00 AM EDT Appointment [facility] 271 [facility] 2nd [place] [address] 09/12/2024 10:00 AM EDT Consult Orthopedic Surgery - [place] 250 175 [facility] 250 [place] [address] Leeroy Schneider DPM 175 [facility] 250 [place] [address] 09/26/2024 11:30 AM EDT Office Visit Pulmonolgy - [place] 175 [facility] 200 [place] [phone] Chelsea Shi NP 175 [facility] 200 [place] [address] 10/03/2024 7:40 AM EDT Office Visit [facility] - [facility] [address] [facility] 154 [place] [phone] Mikael Montoya NP 300 [place] [address] 11/26/2024 11:00 AM EDT Appointment Radiology Department - [address] [phone] documented as of this encounter Visit Diagnoses [...] mg Syringes) 375 mg, subcutaneous, Once, On Mon08/05/24 at 1130, For 1 dose, Due to viscosity, the injection may take 5-10 seconds to administer. Do not administer more than 150 mg per injection site. Scan 75 mg syringe first, then scan 150 mg syringes.Indications:Moderate asthma without complication, unspecified whether persistent Given 08/05/2024 11:56 AM EST 375 mg Other documented in this encounter Orders Medications Ordered That Homer ht Not Have Been Administered Count Last Ordered Date First Ordered Date omalizumab (XOLAIR) 375 mg i njection (75 mg and 150 mg Syringes) 1 08/05/2024 documented in this encounter Care Teams Document Coordinator Relationship Specialty Start Date End Date Elizabet Shannon MD [address] [place] [address] PCP - General Internal Medicine 05/06/24 documented as of this encounter
--- OUTSIDE RECORDS SUMMARY | 2024-08-26 18:22 | XMS_ITS | Clinical Summary ---
Author Organization [facility] Address [address] [place] [address] [place] [address] Phone Care Team Providers Care Sed Middle [employer] Teacher Name Role Phone Amaya Lewis MD Primary Care Provider Allergies Active Allergy Reactions Criticality Noted Date Comments Digoxin Other (see comments) 08/05/2022 Pt an sson unsure of reaction Yr-Zpknepuee-Ozpnvhndfs nol Other (see comments) 08/05/2022 Lisinopril 11/15/2022 Simvastatin Other (see comments) 11/15/2022 Medications warfarin (COUMADIN) 2.5 MG tablet 09/28/19 23 Active Tiotropium [place] Monohydrate (Spiriva Respimat) 1.25 MCG/ACT aerosol solution [...] of kidney 12/07/2013 Overview (08/07/2023): CT 08/25/11 [place] - right renal parapelvic cyst and smaller [...] 09/30/2012 Overview (08/07/2023): Also on MRI 12/2014. [employer] - endometrial bx 03/16/15 - benign Nephrolithiasis 09/13/2012 Overview (08/07/2023): Per old recrods, 10/05/2005 Aortic root dilatation 09/05/2012 Overview (08/07/2023): According to cardiac note. Followed by Dr. Chan at [facility]. History of polyp of colon 07/18/2012 Overview (08/07/2023): Colonoscopy Dr. Bob Breen 08/12/11 -small cecal polyp: tubular adenoma. Consider next exam 2016. Encounters Date Type Department Care Team Description 06/05/2024 Refill [facility] [address] [place] [address] Jose Hardy MD 06/03/2024 Orders Only [facility] [address] [place] [address] Jose Hardy MD Chronic kidney disease, stage 4 (severe) (HCC); Type 2 diabetes mellitus with diabetic chronic kidney disease (HCC); Renal osteodystrophy from Last 3 Months Immunizations Name Administration [...] Visit [facility] [address] [place] [address] [place] [address] Jose Hardy MD [address] [facility] 204 [place] [address] Health Maintenance Due Date Last Done Comments [...] to complete this topic Insurance [address] [place] [address] [facility] ([id number]) [place] [phone] [address] [place] [address] [facility] ([id number]) Care Teams Sed Middle School Teacher Relationship Specialty Start Date End Date Amaya Lewis MD [address] [place], [place] PCP - General Internal Medicine 05/20/24
--- OUTSIDE RECORDS SUMMARY | 2024-08-26 18:22 | XMS_ITS | Encounter Summary ---
[facility] Address [address] [place] [address] Care Team Providers Care Rehab Spec Name Role Phone Elizabet Shannon MD Primary Care Provider [phone] Encounter Details Date Type Department Care Team (Latest Contact Info) Description 08/14/2024 10:50 AM EST Anticoagulation - Warfarin Visit Coumadin [address] [phone] Atrial fibrillation, 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 (CMS/HCC) (Primary Dx); snf (current) use of anticoagulants Social History Tobacco [...] Anticoagulation - Warfarin Visit Coumadin Clinic - [address] [phone] 09/03/2024 11:00 AM EDT Appointment [facility] 271 [facility] 2nd [place] [address] 09/12/2024 10:00 AM EDT Consult Orthopedic Surgery - [place] 250 175 [facility] 250 [place] [address] Leeroy Schneider DPM [address] [facility] 250 [place] [address] 09/26/2024 11:30 AM EDT Office Visit Pulmonolgy - [place] 175 [facility] 200 [place] [phone] Chelsea Shi NP [address] [facility] 200 [place] [address] 10/03/2024 7:40 AM EDT Office Visit [facility] - [facility] 154 300 [facility] 154 [place] [phone] Mikael Montoya NP 300 [place] [address] 11/26/2024 11:00 AM EDT Appointment Radiology Department - [address] [phone] documented as of this encounter Procedures Procedure Name Priority Date/Time Associated Diagnosis Comments POC PROTIME INR BLOOD Routine 08/14/2024 Atrial fibrillation, 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 (CMS/HCC) snf (current) use of anticoagulants documented in this encounter Results * POC Protime INR Blood (08/14/2024) Lot Number INR POC 3.8 Prothrombin Time POC Exp Date Blood 08/14/2024 Doe Hair MD POINT OF CARE TEST ENTER/EDIT ORDERABLES Edited Result - Final documented in this encounter Visit Diagnoses Diagnosis Atrial fibrillation, 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 (CMS/HCC)- Primary medical terminologist (current) use of anticoagulants Long-term (current) use of anticoagulants Encounter for screening mammogram for breast cancer documented in this encounter Care Teams Rehab Spec Relationship Specialty Start Date End Date Elizabet Shannon MD [address] [place] [address] PCP - General Internal Medicine 05/06/24 documented as of this encounter
--- OUTSIDE RECORDS SUMMARY | 2024-08-26 18:22 | XMS_ITS | Encounter Summary ---
[facility] Address [address] [place] [address] Care Team Providers Care Electronic Warfare Specialist Name Role Phone Elizabet Shannon MD Primary Care Provider [phone] Reason for Visit * Reason Onset Date Comments Patient having shortness of breath, edema 2024 Encounter Details Date Type Department Care Team (Late st Contact Info) Description 08/24/2024 Telephone [facility] - [facility] [place] [facility] [address] 300 [facility] 101 [place] [address] Solange Cisneros MA Patient having shortness of breath, edema Social History Tobacco Use Types Packs/Day Years [...] as of this encounter Progress Notes * Anthony Ring RN - 08/26/2024 9:01 AM EST Is followed by Pulmonology and nephrology also - has apt scheduled with pulmonology on 09/26/24 and nephrology on 11/21/24. Is on Torsemide 40mg BID. Called and LVM with Nicko this AM at listed number below, as pt is Malagasy spk. Awaiting call back. * Solange Cisneros MA - 08/24/2024 8:44 AM EST I called and schedule appointment from recall list for Mikael Montoya NP for 10/03/24 at 7:40 AM. I spoke with Adriana who was unable to fully communicate in Lithuanian. Spoke with patient's son Nicko at [phone] who explained that his mother has been complaining of shortness of breath and leg edema. Triage dept please reach out to patient to investigate symptoms further, and if needed move appointment up with available JUWAN? Thank you. documented in this encounter Plan of Treatment Upcoming Encounters Date Type Department Care Team (Latest Contact Info) Description 08/27/2024 10:40 AM EST Anticoagulation - Warfarin Visit Coumadin Clinic [address] [address] 09/03/2024 11:[address] [facility] Infusion Center 271 [facility] 2nd [place] [address] 09/12/2024 10:00 AM EDT Consult Orthopedic Surgery - [place] [address] [phone] Leeroy Schneider DPM 175 [facility] 250 [place] [address] 09/26/2024 11:30 AM EDT Office Visit Pulmonolgy - [place] 175 [facility] 200 [place] [phone] Chelsea Shi NP 175 [facility] 200 [place] [address] 10/03/2024 7:40 AM EDT Office Visit [facility] - [facility] 154 300 [facility] 154 [place] [address] Mikael Montoya NP 300 [place] [address] 11/26/2024 11:00 AM EDT Appointment Radiology Department - [address] [phone] documented as of this encounter Visit Diagnoses Not on filedocumented in this encounter Care Teams Electronic Warfare Specialist Relationship Specialty Start Date End Date Elizabet Shannon MD 175 [facility] 200 [place] [address] PCP - General Internal Medicine 05/06/24 documented as of this encounter
--- OUTSIDE RECORDS SUMMARY | 2024-08-26 18:22 | XMS_ITS | Clinical Summary ---
Author Organization 175 [facility] Address 175 [place] [address] Phone Care Team Providers Care Exercise Equipment Specialist Name Role Phone Elizabet Shannon MD Primary Care Provider Allergies Active Allergy Reactions Criticality Noted Date Comments Wfxoeldks-Xi-Lsxzeyfymeknr Lisinopril 04/14/2024 Simvastatin 04/14/2024 Medications ferrous sulfate 325 mg (65 mg elemental [...] day. Do not crush or chew. Active cholecalciferol (VITAMIN D-3) 50 mcg (2,000 unit) tablet Take 1 tablet (2,000 Units total) by mouth 1 (one) time each day. Active acetaminophen (TYLENOL) 500 mg tablet TAKE 1 TABLET BY MOUTH EVERY 6 HOURS NEEDED FOR PAIN 30 tablet 1 Active torsemide (DEMADEX) 20 mg tablet Take 2 tablets (40 mg total) by mouth 2 (two) times daily morning and afternoon. 120 each 11 025 2025 Active albuterol 2.5 mg /3 mL (0.083 %) nebulizer solutionIndicat ions:Severe persistent asthma with exacerbation (CMS/HCC) Take 3 mL (2.5 mg total) by nebulization every 4 (four) hours if needed for wheezing. 75 mL 3 025 2025 Active albuterol HFA (Ventolin HFA) 90 mcg/actuation inhalerIndicati ons:Severe persistent asthma with exacerbation (CMS/HCC) Inhale 2 puffs by mouth every 4 (four) hours if needed for wheezing or shortness of breath. 8 g 5 025 2024 Active fexofenadine (MICHOACANO) 180 mg tablet Take 1 tablet (180 mg total) by mouth 1 (one) time each day if needed (cough). 30 tablet 025 Active warfarin (COUMADIN) 5 mg tablet Take 0.5 tablets (2.5 mg total) by mouth 1 (one) time each day. 90 tablet 1 025 Active cyanocobalamin (VITAMIN B-12) 1,000 mcg tablet TAKE 1 TABLET BY MOUTH DAILY. 30 tablet 2 025 Active Trelegy Ellipta 100-62.5-25 mcg inhaler INHALE 1 PUFF BY MOUTH DAILY. 60 each 2 025 Active loratadine (CLARITIN) 10 mg tablet TAKE 1 TABLET BY MOUTH DAILY. 28 tablet 025 Active cyanocobalamin (VITAMIN B-12) 1,000 mcg tablet Take 1 tablet (1,000 mcg total) by mouth 1 (one) time each day. 2024 Discontinued warfarin (COUMADIN) 5 mg tablet Take 0.5 tablets (2.5 mg total) by mouth 1 (one) time each day. 90 tablet 1 024 2024 Discontinued(R eorder) Trelehamida Ellipta 100-62.5-25 mcg inhaler Inhale 1 puff (100 mcg total) by mouth 1 (one) time each day. 60 each 1 025 2024 Discontinued loratadine (CLARITIN) 10 mg tablet TAKE 1 TABLET BY MOUTH DAILY. 28 tablet 025 2024 Discontinued benzonatate (TESSALON) 100 mg capsule Take 1 capsule (100 mg total) by mouth 3 (three) times a day if needed for cough for up to 15 days. Do not crush or chew. 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 2023 Moderate asthma [...] Encounters Date Type Department Care Team Description 08/26/2024 Telephone Internal Medicine - [place] [address] [place] [address] Elizabet Shannon MD Faxed order 08/24/2024 Telephone [facility] - [address] [place] [address] Solange Cisneros [place] Patient having shortness of breath, edema 08/21/2024 11:00 AM EST Anticoagulation - [facility] [address] [phone] Atrial fibrillation, 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 (CMS/HCC) (Primary Dx); 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 08/21/2024 Telephone Internal Medicine - [place] 175 [facility] 200 [place] [phone] Janet Mcleod [place] Request For Order(s) (Nuha GUILLEN Physicians Discharge Summary) 08/20/2024 10:56 AM EST - 08/20/2024 11:59 PM EST Hospital Encounter [facility] [address] [phone] Evangelina Lou MD Moderate asthma without complication, unspecified whether persistent (Primary Dx) Discharge Disposition: Home or Self Care 08/14/2024 10:50 AM EST Anticoagulation - Warfarin Visit [facility] - [address] [phone] Atrial fibrillation, 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 (CMS/HCC) (Primary Dx); 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 08/09/2024 Telephone [facility] - [facility] 154 300 [facility] 154 [place] [address] Mikael Montoya, ALAINA No Show 08/07/2024 11:10 AM EST Anticoagulation - Warfarin Visit [facility] - [address] [phone] Atrial fibrillation, 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 (CMS/HCC) (Primary Dx); 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 08/05/2024 10:56 AM EST - 08/05/2024 11:59 PM EST Hospital Encounter [facility] [address] [phone] Evangelina Lou MD Moderate asthma without complication, unspecified whether persistent (Primary Dx) Discharge Disposition: Home or Self Care 07/31/2024 10:50 AM EST Anticoagulation - Warfarin Visit [facility] - [address] [phone] Atrial fibrillation, 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 (CMS/HCC) (Primary Dx); alf (current) use of anticoagulants 07/26/2024 11:00 AM EST Anticoagulation - Warfarin Visit [facility] - [address] [place] [address] Atrial fibrillation, 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 (CMS/HCC) (Primary Dx); 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 07/26/2024 Telephone Pulmonolgy - [place] [address] [phone] Graciela Mckinley MA DME request 07/23/2024 11:00 AM EST Anticoagulation - Warfarin Visit Coumadin [address] [phone] Atrial fibrillation, 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 (CMS/HCC) (Primary Dx); 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 07/23/[address] [phone] Felicita Alvarado LPN 07/22/2024 11:00 AM EST - 07/22/2024 11:59 PM EST Hospital Encounter [facility] 271 [facility] [address] [place] [phone] Evangelina Lou MD Moderate asthma without complication, unspecified whether persistent (Primary Dx) Discharge Disposition: Home or Self Care 07/22/2024 Telephone [facility] - [facility] 154 300 [facility] 154 [place] [address] Mikael Montoya NP ECHOCARDIOGRAM 07/16/2024 1:00 PM EST Office Visit Internal Medicine - [place] 175 [facility] 200 [place] [phone] Elizabet Shannon MD Acute on chronic heart failure with preserved ejection fraction (CMS/HCC) (Primary Dx); Hospital discharge follow-up; Moderate persistent asthma without complication; History of hypokalemia; Stage 3a chronic kidney disease (CMS/HCC) 07/16/2024 Anticoagulation - Warfarin Visit Coumadin [address] [phone] Taya Camacho LPN Atrial fibrillation, 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 (CMS/HCC) (Primary Dx); alf (current) use of anticoagulants 07/15/2024 Telephone Internal Medicine - [place] [address] [phone] Janet Mcleod [place] Request For Order(s) ([place] [facility] Cert 06/03/24-08/01/24 Plan Of Care /) 07/12/2024 Anticoagulation - Warfarin Visit Coumadin [address] [phone] Felicita Alvarado LPN Atrial fibrillation, 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 (CMS/HCC) (Primary Dx); alf (current) use of anticoagulants 07/11/2024 1:20 PM EST [facility] [address] [phone] Chelsea Shi NP Severe persistent asthma with exacerbation (CMS/HCC) (Primary Dx); EMERY (obstructive sleep apnea); Acute on chronic diastolic heart failure (CMS/HCC); Chronic atrial fibrillation (CMS/HCC) 07/11/2024 Telephone Internal Medicine - [place] [address] [phone] Elizabet Shannon MD Med Refill 07/08[facility] [address] [phone] Chelsea Shi NP Hospital Follow-up 07/05/2024 Lab Requisition [facility] [address] [place] [phone] Bruce Petersen MD Unspecified atrial fibrillation (CMS/HCC); Other thrombophilia (CMS/HCC) 07/03/2024 Lab Requisition [facility] 299 [facility] [place] [phone] Bruce Petersen MD Other thrombophilia (CMS/HCC); alf (current) use of anticoagulants 06/28/2024 Lab Requisition [facility] 299 [facility] [place] [phone] Ricardo Rhodes MD Unspecified atrial fibrillation (CMS/HCC); Other thrombophilia (CMS/HCC) 06/27/2024 Lab Requisition [facility] 299 [facility] [place] [address] Bruce Petersen MD Hypothyroidism, unspecified; Acute kidney failure, unspecified (CMS/HCC); Heart failure, unspecified (CMS/HCC); Essential (primary) hypertension; Unspecified atrial fibrillation (CMS/HCC) 06/18/2024 2:23 PM EST - 06/25/2024 11:31 AM EST Hospital Encounter [facility] [address] [place] [phone] Delroy Moses MD Ishtiaq, Rizwan, MD Surendran, Anupama, MD Santoyo-Pach eco, Omar D, MD Shortness of breath (Primary Dx); Pneumonia of both lungs due to infectious organism, unspecified part of lung; SOB (shortness of breath); Acute on chronic heart failure with preserved ejection fraction (CMS/HCC) Discharge Disposition: Long Term Facility 06/18/2024 1:30 PM EST Anticoagulation - Warfarin Visit Coumadin 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 06/18/2024 1:00 PM EST Office Visit Pulmonolgy - [place] 175 [facility] [address] [place] [phone] Chelsea Shi NP Longstanding persistent atrial fibrillation (CMS/HCC) (Primary Dx); Chronic heart failure with preserved ejection fraction (CMS/HCC); EMERY (obstructive sleep apnea); Moderate persistent asthma without complication; Cough with hemoptysis 06/11/2024 11:10 AM EST Anticoagulation - Warfarin Visit Coumadin [address] [phone] Atrial fibrillation, 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 (CMS/HCC) (Primary Dx); alf (current) use of anticoagulants 06/10/2024 1:45 PM EST Office Visit Internal Medicine - [place] [address] [phone] Elizabet Shanonn MD Hospital discharge follow-up (Primary Dx); Chronic heart failure with preserved ejection fraction (CMS/HCC); Moderate persistent asthma without complication; Atrial fibrillation, 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 (CMS/HCC); EMERY (obstructive sleep apnea); Mixed hyperlipidemia; 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; PVD (peripheral vascular disease) (CMS/HCC); Benign essential HTN; Dilated aortic root (CMS/HCC); Nail problem; Dependent lymphedema 06/10/2024 Telephone Internal Medicine [address] [phone] Elizabet Shannon MD VNA 06/05/2024 11:00 AM EST - 06/05/2024 11:59 PM EST Hospital Encounter [facility] 271 [facility] 2nd [place] [address] Moderate asthma without complication, unspecified whether persistent (Primary Dx) Discharge Disposition: Home or Self Care 06/04/2024 11:00 AM EST Anticoagulation - Warfarin Visit Coumadin [address] [phone] Atrial fibrillation, 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 (CMS/HCC) (Primary Dx); alf (current) use of anticoagulants 06/03/2024 Telephone Internal Medicine [address] [phone] Elizabet Shannon MD Hospital Follow-up 06/03/2024 Telephone Internal Medicine [address] [phone] Elizabet Shannon MD Appointment (Appt today start of care with Nuha GUILLEN) 06/03/2024 Telephone Internal Medicine [address] [phone] Elizabet Shannon MD VNA 05/28/2024 11:00 AM EST - 05/28/2024 11:59 PM EST Hospital Encounter XRAY - [address] [phone] Moderate persistent asthma with acute exacerbation Discharge Disposition: Home or Self Care 05/28/2024 10:30 AM EST Anticoagulation - [facility]farin [facility] [address] [phone] Atrial fibrillation, 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 (CMS/HCC) (Primary Dx); PVD (peripheral vascular disease) (CMS/HCC); alf (current) use of anticoagulants from Last 3 Months Surgical History Surgery Date Site/Laterality Comments COLONOSCOPY 06/26/2011 - 06/25/2012 [facility] [place] OTHER SURGICAL HISTORY D&C Medical History [...] Orientation Straight 08/05/2024 10 :54 AM EST Obstetrics History Last Filed Vital Signs Vital Sign Reading Time Taken Comments Blood Pressure 94/50 08/20/2024 11:09 AM EST Pulse 65 08/20/2024 11:09 AM EST Temperature 36.6 ??C (97.8 ??F) 08/20/2024 11:[address] Respiratory Rate 20 08/05/2024 11:03 AM EST Oxygen Saturation 99% 08/20/2024 11:09 AM EST [...] Anticoagulation - Warfarin Visit [facility] - [address] [phone] 09/03/2024 11:00 AM EDT Appointment [facility] 271 [facility] 2nd [place] [phone] 09/12/2024 10:00 AM EDT Consult Orthopedic Surgery - [place] 250 175 [facility] 250 [place] [phone] Leeroy Schneider DPM [address] [address] 09/26/2024 11:30 AM EDT Office Visit Pulmonolgy - [place] 175 [facility] 200 [place] [phone] Chelsea Shi NP [address] [address] 10/03/2024 7:40 AM EDT Office Visit [facility] - [facility] 154 300 [facility] 154 [place] [phone] Mikael Montoya NP 300 [place] [address] 11/26/2024 11:00 AM EDT Appointment Radiology Department - [address] [phone] Health Maintenance Due Date Last Done Comments [...] 06/22/2024, Additional history exists Falls Risk Assessment 08/05/2025 08/05/2024 Cholesterol Screening (Lipid Panel) 05/09/2029 05/09/2024 DTaP,Tdap,and Td Vaccines (3 - Td or Tdap) 07/20/2031 07/20/2021, 10/04/2006 Pneumococcal Vaccine: 50+ Years Completed 05/29/2018, 10/06/2016, 10/02/2012, Additional history [...] patient's age to complete this topic Meningococcal B Vacine Aged Out No lo nger eligible based on patient's age to complete this topic RSV Immunization Patients Under 20 months Aged Out No longer eligible based on patient's age to complete this topic Varicella Vaccines Aged Out No longer eligible based on patient's age to complete this topic Procedures Procedure Name Priority Date/Time Associated Diagnosis Comments POC PROTIME INR BLOOD Routine 08/21/2024 Atrial fibrillation, 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 (CMS/HCC) 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 POC PROTIME INR BLOOD Routine 08/14/2024 Atrial fibrillation, 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 (CMS/HCC) 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 POC PROTIME INR BLOOD Routine 08/07/2024 Atrial fibrillation, 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 (CMS/HCC) 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 POC PROTIME INR BLOOD Routine 07/31/2024 Atrial fibrillation, 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 (CMS/HCC) alf (current) use of anticoagulants POC PROTIME INR BLOOD Routine 07/26/2024 Atrial fibrillation, 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 (CMS/HCC) 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 PROTHROMBIN TIME WITH INR STAT 07/23/2024 11:35 AM EST Chronic atrial fibrillation (CMS/HCC) PVD (peripheral vascular disease) (CMS/HCC) 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 PROTHROMBIN TIME WITH INR Routine 07/16/2024 12:41 PM EST Atrial fibrillation, 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 (CMS/HCC) 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 PVD (peripheral vascular disease) (CMS/HCC) PROTHROMBIN TIME WITH INR Routine 07/11/2024 1:11 PM EST Atrial fibrillation, 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 (CMS/HCC) 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 PVD (peripheral vascular disease) (CMS/HCC) PROTHROMBIN TIME WITH INR Routine 07/04/2024 8:20 AM EST Other thrombophilia (CMS/HCC) alf (current) use of anticoagulants PROTHROMBIN TIME WITH [...] type (CMS/HCC) alf (current) use of anticoagulants POC PROTIME INR BLOOD Routine 06/11/2024 Atrial fibrillation, 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 (CMS/HCC) 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 POC PROTIME INR BLOOD Routine 06/04/2024 Atrial fibrillation, 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 (CMS/HCC) 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 XR CHEST 2 VIEWS Routine 05/28/2024 11:1 1 AM EST Moderate persistent asthma with acute exacerbation POC PROTIME INR BLOOD Routine 05/28/2024 Atrial fibrillation, 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 (CMS/HCC) PVD (peripheral vascular disease) (CMS/HCC) alf (current) use of anticoagulants LIPID PANEL WITH REFLEX TO DIRECT LDL Routine 05/09/2024 12:00 PM EST Mixed hyperlipidemia Peripheral vascular disease, unspecified (CMS/HCC) Chronic diastolic (congestive) heart failure (CMS/HCC) Longstanding persistent atrial fibrillation (CMS/HCC) from Last 3 Months or Most Recently Relevant to Health Maintenance Results * POC Protime INR Blood (08/21/2024) Only the most recent of9 resultswithin the time period is included. Lot Number INR POC 5.8 Prothrombin Time POC Exp Date Blood 08/21/2024 Doe Hair MD POINT OF CARE TEST ENTER/EDIT ORDERABLES Final Result * (ABNORMAL) Prothrombin time with INR (07/23/2024 11:35 AM EST) Only the most recent of12 resultswithin the time period is included. Pathologist [facility] Protime 113.9(H) 10.6 - 13.9 sec LAB COAGULATION METHOD 07/23/2024 3:40 PM EST [facility] INR 8.9(HH) LAB COAGULATION METHOD 07/23/2024 3:40 PM EST [facility] Blood Venous blood specimen / Unknown Venipuncture / Unknown 07/23/2024 11:35 AM EST 07/23/2024 11:35 AM EST Jerry Akers MD LAB BLOOD ORDERABLES Final Resu lt [facility] [address] [place] [address], * (ABNORMAL) Complete blood count (06/27/2024 8:37 AM EST) Pathologist [facility] WBC 5.0 4.8 - 10.8 K/mcL LAB HEMETOLOGY METHOD 06/27/2024 10:58 AM EST [facility] RBC 3.90 3.80 - 4.80 M/mcL LAB HEMETOLOGY METHOD 06/27/2024 10:58 AM EST [facility] Hemoglobin 11.5 11.5 - 16.0 g/dL LAB HEMETOLOGY METHOD 06/27/2024 10:58 AM [facility] Hematocrit 38.6 35.0 - 47.0 % LAB HEMETOLOGY METHOD 06/27/2024 10:58 AM [facility] MCV 99.2(H) 79.0 - 98.0 FL LAB HEMETOLOGY METHOD 06/27/2024 10:58 AM [facility] MCH 29.6 27.0 - 32.0 pcg LAB HEMETOLOGY METHOD 06/27/2024 10:58 AM [facility] MCHC 29.8(L) 32.0 - 37.0 g/dL LAB HEMETOLOGY METHOD 06/27/2024 10:58 AM [facility] RDW 13.6 11.0 - 15.0 % LAB HEMETOLOGY METHOD 06/27/2024 10:58 AM [facility] Platelets 226 130 - 400 K/mcL LAB HEMETOLOGY METHOD 06/27/2024 10:58 AM [facility] MPV 10.7 7.0 - 11.0 FL LAB HEMETOLOGY METHOD 06/27/2024 10:58 AM [facility] NRBC 0.0 <1.0 % LAB HEMETOLOGY METHOD 06/27/2024 10:58 AM [facility] NRBC Absolute 0.00 <0.10 K/mcL LAB HEMETOLOGY METHOD 06/27/2024 10:58 AM [facility] Blood Venous blood specimen / Unknown Venipuncture / Unknown 06/27/2024 8:37 AM EST 06/27/2024 10:21 AM EST us Bruce Petersen MD LAB BLOOD ORDERABLES Final R esult [facility] [address] [place] [address], [place] [phone] * Thyroid stimulating hormone (06/27/2024 8:37 AM EST) [facility] TSH 2.33 0.40 - 4.00 mcIU/mL LAB CHEMISTRY METHOD 06/27/2024 11:32 AM EST [facility] Blood Venous blood specimen / Unknown Venipuncture / Unknown 06/27/2024 8:37 AM EST 06/27/2024 10:21 AM EST us Bruce Petersen MD LAB BLOOD ORDERABLES Final R esult [facility] [address] [place] [address], [place] [phone] * (ABNORMAL) Comprehensive metabolic panel (06/27/2024 8:37 AM EST) Only the most recent of3 resultswithin the time period is included. [facility] Sodium 143 133 - 145 mmol/L LAB CHEMISTRY METHOD 06/27/2024 11:25 AM [facility] Potassium 4.3 3.5 - 5.5 mmol/L LAB CHEMISTRY METHOD 06/27/2024 11:25 AM [facility] Chloride 103 96 - 110 mmol/L LAB CHEMISTRY METHOD 06/27/2024 11:25 AM [facility] CO2 38(H) 21 - 32 mmol/L LAB CHEMISTRY METHOD 06/27/2024 11:25 AM [facility] Anion Gap 2(L) 3 - 11 LAB CHEMISTRY METHOD 06/27/2024 11:25 AM [facility] Glucose 81 70 - 100 mg/dL LAB CHEMISTRY METHOD 06/27/2024 11:25 AM [facility] BUN 47(H) 5 - 25 mg/dL LAB CHEMISTRY METHOD 06/27/2024 11:25 AM [facility] Creatinine 1.94(H) 0.50 - 1.10 mg/dL LAB CHEMISTRY METHOD 06/27/2024 11:25 AM [facility] eGFR 25(L) >=60 mL/min/1. 73m2 LAB CHEMISTRY METHOD 06/27/2024 11:25 AM [facility] Comment:Calculation based on the??Chronic Kidney Disease Epidemiology Collaboration (CKD-EPI) equation refit??without adjustment for race. BUN/Creatinine Ratio 24.2 LAB CHEMISTRY METHOD 06/27/2024 11:25 AM [facility] Calcium 8.7 8.5 - 10.5 mg/dL LAB CHEMISTRY METHOD 06/27/2024 11:25 AM [facility] AST (SGOT) 28 10 - 42 unit/L LAB CHEMISTRY METHOD 06/27/2024 11:25 AM [facility] ALT (SGPT) 14 10 - 60 unit/L LAB CHEMISTRY METHOD 06/27/2024 11:25 AM [facility] Alkaline Phosphatase 107 42 - 121 unit/L LAB CHEMISTRY METHOD 06/27/2024 11:25 AM [facility] Total Protein 8.1(H) 6.0 - 8.0 g/dL LAB CHEMISTRY METHOD 06/27/2024 11:25 AM [facility] Albumin 2.7(L) 3.2 - 5.0 g/dL LAB CHEMISTRY METHOD 06/27/2024 11:25 AM [facility] Total Bilirubin 0.5 0.0 - 1.4 mg/dL LAB CHEMISTRY METHOD 06/27/2024 11:25 AM [facility] Blood Venous blood specimen / Unknown Venipuncture / Unknown 06/27/2024 8:37 AM EST 06/27/2024 10:21 AM EST us Bruce Petersen MD LAB BLOOD ORDERABLES Final R esult [facility] [address] [place] [address], [place] [phone] * Lavender tube (06/25/2024 7:05 AM EST) Only the most recent of2 resultswithin the time period is included. Extra Tube Hold for add-ons. 06/25/2024 9:01 AM EST [facility] Comment:Auto resulted. Blood Venous blood specimen / Unknown Venipuncture / Unknown 06/25/2024 7:05 AM EST 06/25/2024 7:48 AM EST us Gusatvo Quinteros MD LAB BLOOD ORDERABLES F inal Result Performing Organization Address [facility]/ZIP Co de Phone Number [facility] [address] [place] [address], [place] [phone] * SST tube (06/25/2024 7:03 AM EST) Only the most recent of2 resultswithin the time period is included. Extra Tube Hold for add-ons. 06/25/2024 9:01 AM EST [facility] Comment:Auto resulted. Blood Venous blood specimen / Unknown Venipuncture / Unknown 06/25/2024 7:03 AM EST 06/25/2024 7:50 AM EST us Gustavo Quinteros MD LAB BLOOD ORDERABLES F inal Result [facility] [address] [place] [address], [place] [phone] * (ABNORMAL) CBC auto differential (06/24/2024 6:47 AM EST) Only the most recent of5 resultswithin the time period is included. WBC 5.9 4.8 - 10.8 K/[facility] LAB HEMETOLOGY METHOD 06/24/2024 7:40 AM [facility] RBC 3.90 3.80 - 4.80 M/mcL LAB HEMETOLOGY METHOD 06/24/2024 7:40 AM [facility] Hemoglobin 11.4(L) 11.5 - 16.0 g/dL LAB HEMETOLOGY METHOD 06/24/2024 7:40 AM [facility] Hematocrit 38.0 35.0 - 47.0 % LAB HEMETOLOGY METHOD 06/24/2024 7:40 AM [facility] MCV 96.7 79.0 - 98.0 FL LAB HEMETOLOGY METHOD 06/24/2024 7:40 AM [facility] MCH 29.0 27.0 - 32.0 pcg LAB HEMETOLOGY METHOD 06/24/2024 7:40 AM [facility] MCHC 30.0(L) 32.0 - 37.0 g/dL LAB HEMETOLOGY METHOD 06/24/2024 7:40 AM [facility] RDW 14.1 11.0 - 15.0 % LAB HEMETOLOGY METHOD 06/24/2024 7:40 AM [facility] Platelets 225 130 - 400 K/mcL LAB HEMETOLOGY METHOD 06/24/2024 7:40 AM [facility] MPV 10.7 7.0 - 11.0 FL LAB HEMETOLOGY METHOD 06/24/2024 7:40 AM [facility] NRBC 0.0 <1.0 % LAB HEMETOLOGY METHOD 06/24/2024 7:40 AM [facility] NRBC Absolute 0.00 <0.10 K/mcL LAB HEMETOLOGY METHOD 06/24/2024 7:40 AM [facility] Neutrophils Relative 58.7 % LAB HEMETOLOGY METHOD 06/24/2024 7:40 AM [facility] Lymphocytes Relative 29.0 % LAB HEMETOLOGY METHOD 06/24/2024 7:40 AM [facility] Monocytes Relative 8.9 % LAB HEMETOLOGY METHOD 06/24/2024 7:40 AM [facility] Eosinophils Relative 2.4 % LAB HEMETOLOGY METHOD 06/24/2024 7:40 AM [facility] Basophils Relative 0.7 % LAB HEMETOLOGY METHOD 06/24/2024 7:40 AM [facility] Immature Granulocytes Relative 0.3 % LAB HEMETOLOGY METHOD 06/24/2024 7:40 AM [facility] Neutrophils Absolute 3.44 1.50 - 7.00 K/mcL LAB HEMETOLOGY METHOD 06/24/2024 7:40 AM [facility] Lymphocytes Absolute 1.70 1.00 - 5.00 K/mcL LAB HEMETOLOGY METHOD 06/24/2024 7:40 AM [facility] Monocytes Absolute 0.52 0.20 - 1.00 K/mcL LAB HEMETOLOGY METHOD 06/24/2024 7:40 AM [facility] Eosinophils Absolute 0.14 0.00 - 0.50 K/mcL LAB HEMETOLOGY METHOD 06/24/2024 7:40 AM [facility] Basophils Absolute 0.04 0.00 - 0.20 K/mcL LAB HEMETOLOGY METHOD 06/24/2024 7:40 AM [facility] Immature Granulocytes Absolute 0.02 0.00 - 0.03 K/mcL LAB HEMETOLOGY METHOD 06/24/2024 7:40 AM [facility] Blood Venous blood specimen / Unknown Venipuncture / Unknown 06/24/2024 6:47 AM EST 06/24/2024 7:06 AM EST us Michaela Dove MD LAB BLOOD ORDERABLES Final Result [facility] [address] [place] [address], [place] [phone] * (ABNORMAL) Basic metabolic panel (06/24/2024 6:47 AM EST) Only the most recent of4 resultswithin the time period is included. Sodium 143 133 - 145 mmol/L LAB CHEMISTRY METHOD 06/24/2024 7:58 AM [facility] Potassium 3.4(L) 3.5 - 5.5 mmol/L LAB CHEMISTRY METHOD 06/24/2024 7:58 AM [facility] Chloride 103 96 - 110 mmol/L LAB CHEMISTRY METHOD 06/24/2024 7:58 AM [facility] CO2 36(H) 21 - 32 mmol/L LAB CHEMISTRY METHOD 06/24/2024 7:58 AM [facility] Anion Gap 4 3 - 11 LAB CHEMISTRY METHOD 06/24/2024 7:58 AM [facility] Glucose 78 70 - 100 mg/dL LAB CHEMISTRY METHOD 06/24/2024 7:58 AM [facility] BUN 40(H) 5 - 25 mg/dL LAB CHEMISTRY METHOD 06/24/2024 7:58 AM [facility] Creatinine 1.81(H) 0.50 - 1.10 mg/dL LAB CHEMISTRY METHOD 06/24/2024 7:58 AM [facility] eGFR 27(L) >=60 mL/min/1. 73m2 LAB CHEMISTRY METHOD 06/24/2024 7:58 AM [facility] Comment:Calculation based on the??Chronic Kidney Disease Epidemiology Collaboration (CKD-EPI) equation refit??without adjustment for race. BUN/Creatinine Ratio 22.1 LAB CHEMISTRY METHOD 06/24/2024 7:58 AM [facility] Calcium 8.7 8.5 - 10.5 mg/dL LAB CHEMISTRY METHOD 06/24/2024 7:58 AM EST [facility] Blood Venous blood specimen / Unknown Venipuncture / Unknown 06/24/2024 6:47 AM EST 06/24/2024 7:05 AM EST Michaela Dove MD LAB BLOOD ORDERABLES Final Result Performing Organization Address [facility] Co de Phone Number [facility]) [facility] [address] [place] [address], [place] [phone] * ECG 12 lead (06/23/2024 5:12 AM EST) Only the most recent of2 resultswithin the time period is included. Ventricular Rate ECG 101 BPM GEMUSE Atrial Rate 125 BPM GEMUSE QRS Duration 92 ms GEMUSE Q-T Interval 342 ms GEMUSE QTc 443 ms GEMUSE R [place] -14 degrees GEMUSE T [place] -17 degrees GEMUSE ECG Interpretation Atrial fibrillation with rapid ventricular response Low voltage QRS Inferior infarct , age undetermined Abnormal ECG When compared with ECG of 18-JUN-2024 16:12, Vent. rate has increased BY ??39 BPM Inferior infarct is now Present Confirmed by MD Xavier, Wiseman ([id number]) on 06/24/2024 8:35:44 AM GEMUSE 06/23/2024 5:12 AM EST 06/24/2024 8:35 AM EST Vy KIRK ECG ORDERABLES Final Result Performing Organization Address [facility] Co de Phone Number GEMUSE * (ABNORMAL) B-type natriuretic peptide (06/22/2024 7:07 AM EST) Only the most recent of2 resultswithin the time period is included. BNP 124(H) <=100 pcg/mL LAB CHEMISTRY METHOD 06/22/2024 9:32 AM EST [facility] Blood Venous blood specimen / Unknown Venipuncture / Unknown 06/22/2024 7:07 AM EST 06/22/2024 7:33 AM EST Michaela Dove MD LAB BLOOD ORDERABLES Final Result Performing Organization Address [facility] de Phone Number [facility] [address] [place] [address], * Magnesium (06/22/2024 7:07 AM EST) Only the most recent of3 resultswithin the time period is included. Magnesium 1.9 1.9 - 2.6 mg/dL LAB CHEMISTRY METHOD 06/22/2024 8:23 AM EST [facility] Blood Venous blood specimen / Unknown Venipuncture / Unknown 06/22/2024 7:07 AM EST 06/22/2024 7:33 AM EST Michaela Dove MD LAB BLOOD ORDERABLES Final Result Performing Organization Address [facility] de Phone Number [facility] [address] [place] [address], [place] [phone] * XR Chest 2 Views (06/20/2024 12:30 [...] Signed Date: 06/20/2024 12:35 ET Workstation ID: [id number] Transcribed By: Self Edit Transcribed Date: 06/20/2024 [...] Signed Date: 06/20/2024 12:35 ET Workstation ID: [id number] Transcribed By: Self Edit Transcribed Date: 06/20/2024 12:34 ET us Michaela Dove MD IMG XR PROCEDURES Final Res ult * (ABNORMAL) TRANSTHORACIC ECHOCARDIOGRAM (TTE) COMPLETE W/ CONTRAST (06/20/2024 10:19 AM EST) Left Atrium Minor [place] 6.3 cm CV PACS Left Atrium Major [place] 7.2 cm CV PACS LA Area Sys [...] Definity contrast was given to enhance imaging. us Michaela Dove MD CV ECHO PROCEDURES Final Re sult * (ABNORMAL) POCT Glucose, blood (06/20/2024 8:28 AM EST) Only the most recent of7 resultswithin the time period is included. Glucose POCT 106(H) 70 - 100 mg/dL 06/20/2024 8:28 AM EST [facility] ([facility]) [facility] Blood Capillary blood specimen / Unknown 06/20/2024 8:28 AM EST 06/20/2024 8:30 AM EST Michaela Dove MD LAB POINT OF CARE T EST DOCKED DEVICE UNSOLICITED RESULTS Final Result Performing Organization Address [facility]/ZIP Co de Phone Number [facility] [address] [place] [address], [place] [phone] * (ABNORMAL) Procalcitonin (06/19/2024 6:06 AM EST) Procalcitonin 0.20(H) <=0.16 ng/mL LAB CHEMISTRY METHOD 06/19/2024 8:35 AM EST [facility] Blood Venous blood specimen / Unknown Venipuncture / Unknown 06/19/2024 6:06 AM EST 06/19/2024 6:46 AM EST Narrative [facility] - 06/19/2024 8:35 AM EST [...] are obtained. Adriane KIRK LAB BLOOD ORDERABLES Final Resu lt Performing Organization Address [facility]/ZIP Co de Phone Number [facility] [address] [place] [address], [place] [phone] * ECG-Annotated (06/19/2024) us Provider Onbase MD ECG ORDERABLES Final Result * Troponin I high sensitivity (06/18/2024 4:42 PM EST) Only the most recent of2 resultswithin the time period is included. [facility] High Sensitivity Troponin I 28 <=54 ng/L LAB CHEMISTRY METHOD 06/18/2024 5:23 PM EST [facility] Blood Venous blood specimen / Unknown Venipuncture / Unknown 06/18/2024 4:42 PM EST 06/18/2024 4:57 PM EST [facility] - 06/18/2024 5:23 PM EST High levels of biotin in samples may falsely decrease hsTroponin values. ??Use caution when interpreting hsTroponin results in patients taking biotin who exhibit renal impairment (eGFR <60) or in patients taking more than 20 mg/day of biotin. Delroy Moses MD LAB BLOOD ORDERABLES Lore l Result [facility] [address] [place] [address], * Respiratory virus panel molecular study (06/18/2024 4:18 PM EST) [facility] Adenovirus Detection by PCR Not Detected Not Detected LAB MICROBIOLOGY METHOD 06/18/2024 5:27 PM EST [facility] Influenza A PCR Not Detected Not Detected LAB MICROBIOLOGY METHOD 06/18/2024 5:27 PM [facility] Influenza B PCR Not Detected Not Detected LAB MICROBIOLOGY METHOD 06/18/2024 5:27 PM [facility] Coronavirus 229E Not Detected Not Detected LAB MICROBIOLOGY METHOD 06/18/2024 5:27 PM EST [facility] Coronavirus HKU1 Not Detected Not Detected LAB MICROBIOLOGY METHOD 06/18/2024 5:27 PM [facility] Coronavirus OC43 Not Detected Not Detected LAB MICROBIOLOGY METHOD 06/18/2024 5:27 PM [facility] Coronavirus NL63 Not Detected Not Detected LAB MICROBIOLOGY METHOD 06/18/2024 5:27 PM [facility] Parainfluenza Virus 1 Not Detected Not Detected LAB MICROBIOLOGY METHOD 06/18/2024 5:27 PM [facility] Parainfluenza Virus 2 Not Detected Not Detected LAB MICROBIOLOGY METHOD 06/18/2024 5:27 PM [facility] Parainfluenza Virus 3 Not Detected Not Detected LAB MICROBIOLOGY METHOD 06/18/2024 5:27 PM [facility] Parainfluenza Virus 4 Not Detected Not Detected LAB MICROBIOLOGY METHOD 06/18/2024 5:27 PM [facility] RSV PCR Not Detected Not Detected LAB MICROBIOLOGY METHOD 06/18/2024 5:27 PM [facility] Human Metapneumovirus A and B Not Detected Not Detected LAB MICROBIOLOGY METHOD 06/18/2024 5:27 PM [facility] Rhinovirus/Entero virus Not Detected Not Detected LAB MICROBIOLOGY METHOD 06/18/2024 5:27 PM [facility] Bordetella pertussis Not Detected Not Detected LAB MICROBIOLOGY METHOD 06/18/2024 5:27 PM [facility] Bordetella parapertussis Not Detected Not Detected LAB MICROBIOLOGY METHOD 06/18/2024 5:27 PM [facility] Mycoplasma pneumo by PCR Not Detected Not Detected LAB MICROBIOLOGY METHOD 06/18/2024 5:27 PM [facility] Chlamydia pneumoniae Not Detected Not Detected LAB MICROBIOLOGY METHOD 06/18/2024 5:27 PM [facility] SARS COV-2 Not Detected Not Detected LAB MICROBIOLOGY METHOD 06/18/2024 5:27 PM [facility] Sputum Both anterior nares / Unknown Non-blood Collection / Unknown 06/18/2024 4:18 PM EST 06/18/2024 4:32 PM EST Narrative [facility] - 06/18/2024 5:27 PM EST Testing was performed using the [employer] Respiratory Pathogen PCR Assay. All results must [...] that are below the limit of detection. us Delroy Moses MD LAB MICROBIOLOGY - GENERA L ORDERABLES Final Result Performing Organization Address [facility]/ZIP Co de Phone Number [facility] [address] [place] [address], [place] [phone] * Lipase (06/18/2024 3:03 PM EST) Lipase 22 13 - 75 unit/L LAB CHEMISTRY METHOD 06/18/2024 3:50 PM EST [facility] Blood Venous blood specimen / Unknown Venipuncture / Unknown 06/18/2024 3:03 PM EST 06/18/2024 3:16 PM EST us Delroy Moses MD LAB BLOOD ORDERABLES Lore l Result Performing Organization Address City/[facility]/ZIP Co de Phone Number [facility] [address] [place] [address], [place] [phone] * Lipid panel with reflex to direct LDL (05/09/2024 12:00 PM EST) Cholesterol 133 0 - 200 mg/dL LAB CHEMISTRY METHOD 05/09/2024 4:50 PM EST [facility] Triglycerides 44 0 - 150 mg/dL LAB CHEMISTRY METHOD 05/09/2024 4:50 PM EST [facility] HDL 83 >=40 mg/dL LAB CHEMISTRY METHOD 05/09/2024 4:50 PM EST [facility] LDL Calculated 41 0 - 100 mg/dL LAB CHEMISTRY METHOD 05/09/2024 4:50 PM EST [facility] VLDL Cholesterol Trino 8.8 mg/dL LAB CHEMISTRY METHOD 05/09/2024 4:50 PM EST [facility] Non HDL Chol. (LDL+VLDL) 50 <145 mg/dL LAB CHEMISTRY METHOD 05/09/2024 4:50 PM EST [facility] Chol/HDL Ratio 1.6 0.0 - 4.4 LAB CHEMISTRY METHOD 05/09/2024 4:50 PM EST [facility] Blood Venous blood specimen / Unknown 05/09/2024 12:00 PM EST 05/09/2024 2:29 PM EST Mikael Montoya NP LAB BLOOD ORDERABLES Final Resul t [facility] [address] [place] [address], from Last 3 Months or Most Recently Relevant to Health Maintenance Insurance [facility] MEDICAID Advance Directives Documents on File Type Date Recorded Patient Impregnation Operator Expl anation Advance Directives and Living Will 06/27/2024 9:11 AM Advance Directives and Living Will 06/21/2024 1:04 PM Dmai Roberts [facility] Care Proxy * Full Code - Default [...] Relationship Healthcare Agent Relationshi p Communication Dami Vyas [facility] Ca re Agent Nicko Vyas [facility] Car e Agent Care Teams Exercise Equipment Specialist Relationship Specialty Start Date End Date Elizabet Shannon MD [address] [place] [address] PCP - General Internal Medicine 05/06/24
--- OUTSIDE RECORDS SUMMARY | 2024-08-26 18:22 | XMS_ITS | Encounter Summary ---
Author Organization [facility] Address [address] [place] [address] Care Team Providers Care Director Of Rooms Name Role Phone Elizabet Shannon MD Primary Care Provider [phone] Reason for Visit * Reason Onset Date Comments No Show 08/09/2024 Encounter Details Date Type Department Care Team (Late st Contact Info) Description 08/09/2024 Telephone [facility] - [facility] 154 300 [facility] 154 [place] [address] Mikael Montoya NP 300 [place], [place] [phone] No Show Social History Tobacco Use Types Packs/Day Years [...] as of this encounter Progress Notes * Violeta Main MA - 08/09/2024 9:19 AM EST Letter sent with information on no showed appointment and no show policy documented in this encounter Plan of Treatment Upcoming Encounters Date Type Department Care Team (Latest Contact Info) Description 08/27/2024 10:40 AM EST Anticoagulation - Warfarin Visit [facility] - [address] [phone] 09/03/2024 11:00 AM EDT Appointment [facility] [address] [facility] 2nd [place] [phone] 09/12/2024 10:00 AM EDT Consult Orthopedic Surgery - [place] [address] [phone] Leeroy Schneider DPM [address] [address] 09/26/2024 11:30 AM EDT Office Visit Pulmonolgy - [place] 175 [facility] 200 [place] [phone] Chelsea Shi NP [address] [address] 10/03/2024 7:40 AM EDT Office Visit [facility] - [facility] 154 300 [facility] 154 [place] [address] Mikael Montoya NP 300 [place] [address] 11/26/2024 11:00 AM EDT Appointment Radiology Department - [address] [phone] documented as of this encounter Visit Diagnoses Not on filedocumented in this encounter Care Teams Director Of Rooms Relationship Specialty Start Date End Date Elizabet Shannon MD [address] [place] [address] PCP - General Internal Medicine 05/06/24 documented as of this encounter
--- OUTSIDE RECORDS SUMMARY | 2024-08-26 18:22 | XMS_ITS | Encounter Summary ---
Author Organization [facility] Address [address] [place] [address] Care Team Providers Care Home Health Travel Pt Name Role Phone Elizabet Shannon MD Primary Care Provider [phone] Reason for Visit * Reason Onset Date Comments Faxed order 08/26/2024 Encounter Details Date Type Department Care Team ([facility] st Contact Info) Description 08/26/2024 Telephone Internal Medicine - [place] [address] [address] Elizabet Shannon MD 175 [facility] 200 [place] [address] Faxed order Social History Tobacco Use Types Packs/Day Years [...] as of this encounter Progress Notes * Tamera Sanabria - 08/26/2024 11:50 AM EST Patient son called and stated that home care deliver faxed over wound care orders for the patient last Monday. Please advise Cb# [phone] documented in this encounter Plan of Treatment Upcoming Encounters Date Type Department Care Team (Latest Contact Info) Description 08/27/2024 10:40 AM EST Anticoagulation - Warfarin Visit [facility] - [address] [phone] 09/03/2024 11:00 AM EDT Appointment [facility] 271 [facility] 2nd [place] [phone] 09/12/2024 10:00 AM EDT Consult Orthopedic Surgery - [place] 250 175 [facility] 250 [place] [phone] Leeroy Schneider DPM 175 [facility] 250 [place] [address] 09/26/2024 11:30 AM EDT Office Visit Pulmonolgy - [place] 175 [facility] 200 [place] [phone] Chelsea Shi NP 175 [facility] 200 [place] [address] 10/03/2024 7:40 AM EDT Office Visit [facility] - [facility] 154 300 [facility] 154 [place] [phone] Mikael Montoya NP 300 [place] [address] 11/26/2024 11:00 AM EDT Appointment Radiology Department - [address] [phone] documented as of this encounter Visit Diagnoses Not on filedocumented in this encounter Care Teams Home Health Travel Pt Relationship Specialty Start Date End Date Elizabet Shannon MD [address] [place] [address] PCP - General Internal Medicine 05/06/24 documented as of this encounter
--- OUTSIDE RECORDS SUMMARY | 2024-08-26 18:22 | XMS_ITS | Encounter Summary ---
Author Organization [facility] Address [address] [place] [address] Care Team Providers Care Cow Washer Name Role Phone Elizabet Shannon MD Primary Care Provider [phone] Encounter Details Date Type Department Care Team (Latest Contact Info) Description 07/31/2024 10:50 AM EST Anticoagulation - Warfarin Visit Coumadin [address] [phone] Atrial fibrillation, 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 (CMS/HCC) (Primary Dx); long-term (current) use of anticoagulants Social History Tobacco [...] Anticoagulation - Warfarin Visit [facility] - [address] [phone] 09/03/2024 11:[address] [facility] 271 [facility] 2nd [place] [phone] 09/12/2024 10:00 AM EDT Consult Orthopedic Surgery - [place] 250 175 [facility] 250 [place] [phone] Leeroy Schneider DPM 175 [facility] 250 [place] [address] 09/26/2024 11:30 AM EDT Office Visit Pulmonolgy - [place] 175 [facility] 200 [place] [phone] Chelsea Shi NP 175 [facility] 200 [place] [address] 10/03/2024 7:40 AM EDT Office Visit [facility] - [facility] 154 300 [facility] 154 [place] [phone] Mikael Montoya NP 300 [place] [address] 11/26/2024 11:00 AM EDT Appointment Radiology Department - [address] [phone] documented as of this encounter Procedures Procedure Name Priority Date/Time Associated Diagnosis Comments POC PROTIME INR BLOOD Routine 07/31/2024 Atrial fibrillation, 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 (CMS/HCC) long-term (current) use of anticoagulants documented in this encounter Results * POC Protime INR Blood (07/31/2024) Lot Number INR POC 1.8 Prothrombin Time POC Exp Date Blood 07/31/2024 us Historical Provider MD POINT OF CARE TEST ENTER/ EDIT ORDERABLES Final Result documented in this encounter Visit Diagnoses Diagnosis Atrial fibrillation, 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 (CMS/HCC)- Primary long-term (current) use of anticoagulants Long-term (current) use of anticoagulants Encounter for screening mammogram for breast cancer documented in this encounter Care Teams Cow Washer Relationship Specialty Start Date End Date Elizabet Shannon MD [address] [place] [address] PCP - General Internal Medicine 05/06/24 documented as of this encounter
--- OUTSIDE RECORDS SUMMARY | 2024-08-26 18:23 | XMS_ITS | Encounter Summary ---
Author Organization [facility] Address [address] [place] [address] Care Team Providers Care Derrick Man Name Role Phone Rishi Lion MD Primary Care Provi jose m Encounter Details Date Type Department Care Team [...] EST Anticoagulation - Warfarin Visit [facility] [address] [phone] 09/03/2024 11:[address] [facility] 271 [facility] 2nd [place] [phone] 09/12/2024 10:00 AM EDT Consult Orthopedic Surgery - [place] [address] [phone] Leeroy Schneider DPM 175 [facility] 250 [place] [address] 09/26/2024 11:30 AM EDT Office Visit Pulmonolgy - [place] 175 [facility] [address] [place] [phone] Chelsea Shi NP 175 [facility] 200 [place] [address] 10/03/2024 7:40 AM EDT Office Visit [facility] - [facility] [address] 300 [facility] 154 [place] [phone] Mikael Montoya NP 300 [place] [address] 11/26/2024 11:00 AM EDT Appointment Radiology Department - [address] [phone] documented as of this encounter Visit Diagnoses Not on filedocumented in this encounter Additional Health Concerns Infection Onset Date Last Indicated Resolved Time Respiratory Rule-Out 06/18/2024 06/18/2024 024 5:27 PM EST COVID-19 Rule-Out 06/18/2024 06/18/2024 06/18/2024 5:27 PM EST documented as of this encounter Care Teams Derrick Man Relationship Specialty Start Date End Date Rishi Lion MD [address] [place] [address] [place] [address] PCP - General 04/04/24 05/05/24 documented as of this encounter
--- OUTSIDE RECORDS SUMMARY | 2024-08-26 18:23 | XMS_ITS | Encounter Summary ---
Author Organization [facility] Address [address] [facility] 200 [place] [address] Phone Care Team Providers Care Performance Test Architect Name Role Phone Amaya Lewis MD Primary Care Provider [phone] Encounter Details Date Type Department Care Team (Late st Contact Info) Description 04/20/2023 Office Communication [facility] [address] [place] [address] Jose Hardy MD [address] [address] Social History Tobacco Use Types [...] Visit [facility] [address] [place] [address] Jose Hardy MD 8855 [facility] 204 [place] [address] documented as of this encounter Visit Diagnoses Not on filedocumented in this encounter Care Teams Performance Test Architect Relationship Specialty Start Date End Date Amaya Lewis MD [address] [place], [place] PCP - General Internal Medicine 05/20/24 documented as of this encounter
--- OUTSIDE RECORDS SUMMARY | 2024-08-26 18:23 | XMS_ITS | Encounter Summary ---
Author Organization [facility] Address [address] [place] [address] Care Team Providers Care Animal Ride Manager Name Role Phone Rishi Lion MD Primary [...] AM EST Anticoagulation - Warfarin Visit Coumadin [address] [address] 09/03/2024 11:00 AM EDT Appointment [facility] Infusion Center 271 [facility] 2nd [place] [address] 09/12/2024 10:00 AM EDT Consult Orthopedic Surgery - [place] 250 175 [facility] 250 [place] [address] Leeroy Schneider DPM 175 [facility] 250 [place] [address] 09/26/2024 11:30 AM EDT Office Visit Pulmonolgy - [place] 175 [facility] 200 [place] [address] Chelsea Shi NP 175 [facility] 200 [place] [address] 10/03/2024 7:40 AM EDT Office Visit [facility] Associates - [address] 300 [facility] [address] [place] [address] Mikael Montoya, ALAINA 300 [place] [address] 11/26/2024 11:00 AM EDT Appointment Radiology Department - [address] [address] documented as of this encounter Visit Diagnoses Not on filedocumented in this encounter Additional Health Concerns Infection Onset Date Last Indicated Resolved Time Respiratory Rule-Out 06/18/2024 06/18/2024 024 5:27 PM EST COVID-19 Rule-Out 06/18/2024 06/18/2024 06/18/2024 5:27 PM EST documented as of this encounter Care Teams Animal Ride Manager Relationship Specialty Start Date End Date Rishi Lion MD [address] [place] [address] [place] [address] PCP - General 04/04/24 05/05/24 documented as of this encounter
--- OUTSIDE RECORDS SUMMARY | 2024-08-26 18:23 | XMS_ITS | Encounter Summary ---
Author Organization [facility] Address [address] [place] [address] Care Team Providers Care Conveyor Belt Installer Name Role Phone Elizabet Shannon MD Primary Care Provider [phone] Encounter Details Date Type Department Care Team (Late st Contact Info) Description 05/09/2024 Lab Requisition [facility] - Main Lab 299 [facility] [place] [address] Mikael Montoya, ALAINA 300 [place] [address] Mixed hyperlipidemia; Peripheral vascular disease, unspecified (CMS/HCC); [...] Anticoagulation - Warfarin Visit [facility] Clinic - [address] [phone] 09/03/2024 11:00 AM EDT Appointment [facility] Infusion Center 271 [facility] 2nd [place] [address] 09/12/2024 10:00 AM EDT Consult Orthopedic Surgery - [place] 250 175 [facility] [address] [place] [address] Leeroy Schneider, ANDREW 175 [facility] 250 [place] [address] 09/26/2024 11:30 AM EDT Office Visit Pulmonolgy - [place] 175 [facility] 200 [place] [address] Chelsea Shi NP 175 [facility] 200 [place] [address] 10/03/2024 7:40 AM EDT Office Visit [facility] - [facility] [address] [facility] 154 [place] [phone] Mikael Montoya NP 300 [place] [address] 11/26/2024 11:00 AM EDT Appointment Radiology Department - [address] [phone] documented as of this encounter Procedures Procedure [...] * SST tube (05/09/2024 12:00 PM EST) [facility] Extra Tube Hold for add-ons. 05/09/2024 4:02 PM EST [facility] Comment:Auto resulted. Blood Venous blood specimen / Unknown 05/09/2024 12:00 PM EST 05/09/2024 2:34 PM EST us Mikael Montoya NP LAB BLOOD ORDERABLES Final Resul t Performing Organization Address City/[facility]/ZIP Co de Phone Number [facility] 299 [place] [address], * (ABNORMAL) B-type natriuretic peptide (05/09/2024 12:00 PM EST) [facility] BNP 134(H) <=100 pcg/mL LAB CHEMISTRY METHOD 05/09/2024 3:57 PM EST [facility] Blood Venous blood specimen / Unknown 05/09/2024 12:00 PM EST 05/09/2024 2:29 PM EST us Mikael Montoya NP LAB BLOOD ORDERABLES Final Resul t Performing Organization Address City/[facility]/ZIP Co de Phone Number [facility] [address] [place] [address], [place] [phone] * Lipid panel with reflex to direct LDL (05/09/2024 12:00 PM EST) Cholesterol 133 0 - 200 mg/dL LAB CHEMISTRY METHOD 05/09/2024 4:50 PM EST [facility] Triglycerides 44 0 - 150 mg/dL LAB CHEMISTRY METHOD 05/09/2024 4:50 PM EST [facility] HDL 83 >=40 mg/dL LAB CHEMISTRY METHOD 05/09/2024 4:50 PM EST [facility] LDL Calculated 41 0 - 100 mg/dL LAB CHEMISTRY METHOD 05/09/2024 4:50 PM [facility] VLDL Cholesterol Trino 8.8 mg/dL LAB CHEMISTRY METHOD 05/09/2024 4:50 PM [facility] Non HDL Chol. (LDL+VLDL) 50 <145 mg/dL LAB CHEMISTRY METHOD 05/09/2024 4:50 PM [facility] Chol/HDL Ratio 1.6 0.0 - 4.4 LAB CHEMISTRY METHOD 05/09/2024 4:50 PM [facility] Blood Venous blood specimen / Unknown 05/09/2024 12:00 PM EST 05/09/2024 2:29 PM EST Mikael Montoya NP LAB BLOOD ORDERABLES Final Resul t [facility] 299 [place] [address], [place] [phone] * (ABNORMAL) Basic metabolic panel (05/09/2024 12:00 PM EST) Sodium 141 133 - 145 mmol/L LAB CHEMISTRY METHOD 05/09/2024 4:47 PM [facility] Potassium 3.6 3.5 - 5.5 mmol/L LAB CHEMISTRY METHOD 05/09/2024 4:47 PM [facility] Chloride 105 96 - 110 mmol/L LAB CHEMISTRY METHOD 05/09/2024 4:47 PM [facility] CO2 32 21 - 32 mmol/L LAB CHEMISTRY METHOD 05/09/2024 4:47 PM [facility] Anion Gap 4 3 - 11 LAB CHEMISTRY METHOD 05/09/2024 4:47 PM [facility] Glucose 118(H) 70 - 100 mg/dL LAB CHEMISTRY METHOD 05/09/2024 4:47 PM [facility] BUN 34(H) 5 - 25 mg/dL LAB CHEMISTRY METHOD 05/09/2024 4:47 PM [facility] Creatinine 1.54(H) 0.50 - 1.10 mg/dL LAB CHEMISTRY METHOD 05/09/2024 4:47 PM [facility] eGFR 33(L) >=60 mL/min/1. 73m2 LAB CHEMISTRY METHOD 05/09/2024 4:47 PM [facility] Comment:Calculation based on the??Chronic Kidney Disease Epidemiology Collaboration (CKD-EPI) equation refit??without adjustment for race. BUN/Creatinine Ratio 22.1 LAB CHEMISTRY METHOD 05/09/2024 4:47 PM [facility] Calcium 8.9 8.5 - 10.5 mg/dL LAB CHEMISTRY METHOD 05/09/2024 4:47 PM [facility] Blood Venous blood specimen / Unknown 05/09/2024 12:00 PM EST 05/09/2024 2:29 PM EST us Mikael Montoya NP LAB BLOOD ORDERABLES Final Resul t [facility] 299 [place] [address], documented in this encounter Visit Diagnoses Diagnosis [...] documented as of this encounter Care Teams Conveyor Belt Installer Relationship Specialty Start Date End Date Elizabet Shannon MD [address] [place] [address] PCP - General Internal Medicine 05/06/24 documented as of this encounter
--- OUTSIDE RECORDS SUMMARY | 2024-08-26 18:23 | XMS_ITS | Data Portability ---
Author Organization [facility] Address 30 [place] [address] Care Team Providers Care Hand Packager Name Role Phone HIM CCA OTHER DAWKINSAPRILShekhar Primary Care Provider Assessment Encounter Date Assessment Date Assessment LastModified by Organization Details LastModified Time 11/02/2022 11/02/2022 I have reviewed and agree with the Assessment and Plan as documented by the Heavy Equipment Supervisor. I provided real-time medical direction via phone [...] assessment and plan as documented by the hotbed operator. I provided real-time medical direction for this [...] Organization Details Last Modified Time Details Appointments Urgent Care 2024 01:49P M Not available Not available Not available Lab None recorded. Referral None recorded. Procedures None recorded. Surgeries None recorded. Imaging None recorded. Medication Orders ceftriaxo ne 1 gram solution for injection 2023 024 katalina [facility], [address] [place], [address], 02/25/2024 15:09:27 cephalexi n 500 mg capsule 2023 024 K[facility], [address] [place], [address], 02/25/2024 15:10:49 acetamino phen 500 mg tablet 2023 024 katalina [facility], [address] [facility], [place], [address], 02/25/2024 15:09:27 doxycycli ne hyclate 100 mg capsule 2022 023 K[facility], [address] [place], [address], 11/02/2022 14:55:18 miconazol e nitrate 2 % topical powder 2022 023 [facility], [address] [place], [address], 11/02/2022 14:57:16 Patient TargetsNo targets recorded. Patient InstructionsNo instructions recorded. Reason for Referral None Reported. Results Created Date Observation Date Name Description Value Unit Range Abnormal Flag Note LastModifiedBy Organization Detail LastModifiedTime 06/30/19 23 06/30/2022 cmp, whole blood + picco lo ALB 3 Not Available Main - Ins [address], [address], 06/30/2022 12:28:20 06/30/19 23 06/30/2022 cmp, whole blood + picco lo BUN 21 Not Available Main - Ins [address], [address], 06/30/2022 12:28:20 06/30/19 23 06/30/2022 cmp, whole blood + picco lo Ca 8.8 Not Available Main - Ins [address], [address], 06/30/2022 12:28:20 06/30/19 23 06/30/2022 cmp, whole blood + picco lo CI- normal Not Available Main - Ins [address], [address], 06/30/2022 12:28:20 06/30/19 23 06/30/2022 cmp, whole blood + picco lo CRE 1.9 Not Available Main - Ins [address], [address], 06/30/2022 12:28:20 06/30/19 23 06/30/2022 cmp, whole blood + picco lo GLU 107 Not Available Main - Ins [address], [address], 06/30/2022 12:28:20 06/30/19 23 06/30/2022 cmp, whole blood + picco lo K+ 4.4 Not Available Main - Ins [address], [address], 06/30/2022 12:28:20 06/30/19 23 06/30/2022 cmp, whole blood + picco lo Na+ 137 Not Available Main - Ins [address], [address], 06/30/2022 12:28:20 06/30/19 23 06/30/2022 cmp, whole blood + picco lo tCO2 31 Not Available Main - Ins gwendolyn [address] [place] [address], [place], [address], 06/30/2022 12:28:20 06/30/19 23 06/30/2022 cmp, whole blood + picco lo TP 8.7 Not Available Main - Ins gwendolyn [address] [place] [address], [place], [address], 06/30/2022 12:28:20 Result Notes None recorded. Medical Equipment None Reported. Allergies Allergen ID Allergen Name Allergen Category Reaction Reaction Severity Criticality Documentation Date Start Date Code Code System Note Provider Name and Address Organization Details Recorded Time 155 simvastat in medicatio n Not available Not available Not available 09/10/2021 29652 RxNorm Not Available [facility] 5 16:24:19 156 lisinopri l medicatio n Not available Not available Not available 09/10/2021 88834 RxNorm Not Available [facility] [employer] 5 16:24:19 157 Zocor medicatio n Not available Not available Not available 09/10/2021 18160 3 RxNorm Livia Green MD [address] [place] [address],[address], [place], [address], Valentin Uzhun, [employer] 2 15:51:37 1698 Cortane-B medicatio n Not available Not available Not available 06/30/2022 45844 5 RxNorm liste d in her chart in epic my chart Livia Green MD [address] [place] [address],[address], [place], [address], [employer], [employer] 3 12:15:06 1699 digoxin medicatio n Not available Not available Not available 06/30/2022 3407 RxNorm liste d in my chart - epic Livia Green MD [address] [place] [address],[address], [place], [address], [employer] 3 12:15:26 Medications Name Sig Start Date [...] % 99 % 160.02 cm 110 /min 36616.3 76 g 16 /min 116 mm[Hg] 71 mm[Hg] Not Available [employer] 4 14:59:07 Date Recorded Oxygen saturation Oxygen saturation in Arterial blood by Pulse oximetry Body temperature Body height Respiratory rate Heart rate Body weight Systolic blood pressure Diastolic blood pressure Provider Name and Address Organization Details Last Updated DateTime 4 95 % 95 % 101 [degF] 160.02 cm 22 /min 110 /min 45487.1 92 g 140 mm[Hg] 80 mm[Hg] Not Available [employer] 4 14:58:50 Date Recorded Heart rate Oxygen saturation Oxygen saturation in Arterial blood by Pulse oximetry Body height Body weight Respiratory rate Systolic blood pressure Diastolic blood pressure Provider Name and Address Organization Details Last Updated DateTime 5 52 /min 95 % 95 % 154.94 cm 12043.6 8 g 18 /min 100 mm[Hg] 63 mm[Hg] Not Available [employer] 5 13:59:57 Date Recorded Oxygen saturation Oxygen saturation in Arterial blood by Pulse oximetry Heart rate Body temperature Respiratory rate Systolic blood pressure Diastolic blood pressure Provider Name and Address Organization Details Last Updated DateTime 3 98 % 98 % 76 /min 99 [degF] 122 /min 124 mm[Hg] 65 mm[Hg] Not Available [employer] 3 15:46:59 Date Recorded Respiratory rate Heart rate Body weight Body temperature Oxygen saturation Oxygen saturation in Arterial blood by Pulse oximetry Systolic blood pressure Diastolic blood pressure Provider Name and Address Organization Details Last Updated DateTime 3 14 /min 81 /min 30504.6 g 97.9 [degF] 99 % 99 % 132 mm[Hg] 66 mm[Hg] Not Available [employer] 3 14:51:12 Social History None recorded. Functional Status None recorded. Mental Status None recorded. Family History Nothing Reported. Medical History No medical history recorded. Gynecological HistoryNo gynecological history recorded. Obstetrics History GPAL:G 0 P 0 0 0 0 Past Encounters Encounter ID Performer Location Encounter Start Date Encounter Closed Date Diagnosis/Indication Diagnosis SNOMED-CT Code Diagnosis ICD10 Code Diagnosis Note [id number] [facility] - [address] [address] 09/10/2021 15:52:47 03/03/2022 16:20:49 Edema of lower extremity 981749411 R60.0 - venous stasis with clinically improving chf Chronic ki dney disease 548373846 N18.9 [id number] [facility] - [address] [address] 10/07/2021 13:43:00 02/25/2022 14:50:20 Sepsis 19426469 A41.9 [id number] Livia Green MD [address] [address] 06/30/2022 12:13:11 07/04/2022 09:50:58 Cellulitis of lower limb 196351581 L03.119 On coumadin INR SL LOW/ [facility] [...] y- verbalized understand ing of instructio ns [id number] [facility] - [address] [address] 07/29/2022 15:46:52 08/01/2022 12:25:19 Open wound of lower leg 707473501 S81.801A Patient with lymphedema presents with right [...] I do not feel this is needed. [id number] Evelio Cline MD Main - [facility] [address] [place] [phone] 11/02/2022 14:50:44 11/03/2022 15:22:51 Venous stasis edema of bilateral lower limbs 0769274131 9751554 I87.2 [id number] Julian Vaz MD Main - [facility] [address] [place] [phone] 01/18/2024 14:59:01 01/19/2024 08:38:20 Medical examination for suspected condition 853993568 Z00.01 As noted, we were called to see this patient regarding concerns of hypertensi on and hypoxemia noted at pulmonolog ist visit. Evaluation in the field was performed by my hotbed operator colleague, as noted above, I provided real-time [...] chest pressure, or any new/worsen ing symptom. [id number] Sandhya Perez MD Main - [facility] [address] [place] [phone] 02/25/2024 14:58:29 02/27/2024 00:15:06 Cellulitis of lower leg 954182193 L03.119 Health Concerns Section Related Observation LastModified by Organization Detai ls LastModified Time None Recorded Concern Status LastModified by Organization Details LastModified Time None Recorded Advance Directives Directive None Recorded Payers Encounter Date Sequence Insurance Name Policy Number Policy Potts Covered Member ID Potts Member ID Guarantor Name 07/29/2022 1 [facility] - DOS PRIOR TO 2022 - DUAL ELIGIBLE (MEDICARE REPLACEMENT/ADV ANTAGE - HMO) Adriana Roldan [id number] Adriana Jamar 11/02/2022 1 [facility] - DOS PRIOR TO 2022 - DUAL ELIGIBLE (MEDICARE REPLACEMENT/ADV ANTAGE - HMO) Adriana Roldan [id number] Adriana Jamar 01/18/2024 1 [facility] - DOS ON OR AFTER 2022 - DUAL ELIGIBLE - CUSTODIAL OPTIONS AND ONE CARE (MEDICARE REPLACEMENT/ADV ANTAGE - HMO) Adriana Roldan [id number] Adriana Jamar 02/25/2024 1 [facility] - DOS ON OR AFTER 2022 - DUAL ELIGIBLE - CUSTODIAL OPTIONS AND ONE CARE (MEDICARE REPLACEMENT/ADV ANTAGE - HMO) Adriana Roldan [id number] Adriana Roldan Notes Date Note Type Note Provider Name and Address Organization Details Recorded Time 07/29/2022 text/html HPI: 82 yo Divehi Speaking male with PMH of with Lymphedema of bilateral LL and recurrent cellulitis of RLL and sepsis, presented to [facility] ED on 07/26/22 with RLL drainage, was [...] process this visit. Jose Bill MD 30 [facility],[address], [place], [address], [facility] 07/29/2022 15:53:48 11/02/2022 text/html CRC Nursing Assessment: [...] ..................... ..................... ..................... ..................... ..................... ..................... ............... Heavy Equipment Supervisor Note From Jose A Miller: Pt/caregiver reports [...] ..................... ............... Disposition: Fulfilled Evelio Cline MD 30 [facility],[address], [place], [address], [facility] 12/08/2022 14:13:32 01/18/2024 text/html [facility] Nurse Triage Notes (Marii Fernandez): Chief Complaints: [...] ..................... ..................... ..................... ..................... ..................... ..................... ............... Heavy Equipment Supervisor Note From Tre Garibay: [facility] visit for female patient. Pt present with family who translated for pt who only speaks welsh. Family reports that pt was brought to outpatient appointment for an injection for her asthma. She was noted at appointment to have a low oxygen level and some concern about her blood pressure and family was instructed to go to ED or have [facility] visit. Pt has no complaints at this time and is well appearing. V/S taken with HR noted to be elevated, irregular with history of atrial fibrillation. Lungs clear with good pulse ox on assessment. Consulted with [facility] Dr. Vaz. No further assessment or treatments needed at this time. Family instructed to continue monitoring patient. Patient education provided. ..................... ..................... ..................... ..................... ..................... ..................... ............... Disposition: Fulfilled Julian Vaz MD [address] [place] [address],[address], [place], [address] 01/18/2024 15:59:58 02/25/2024 text/html [facility] Nurse Triage Notes (Blayne Montiel): Reason For Request: pt's son aixa reporting n/v/d since waking up this morning alongside fever>mbr is currently being seen at wound clinic for a wound below the right knee>son notes swelling on the right leg Chief Complaints: Nausea/Vomiting, Diarrhea, Cellulitis, Fever/Chills PMH: CHF, COPD/Asthma, Hypertension Allergies: Unknown Comments: Video Production Coordinator verified the member's name//address and phone number. Mbr's son reporting N/V/D and fever since this morning. Son reports RLE is swollen and red. Fever reportedly 105F, now 101F after Tylenol. Education provided on the response time and the member was advised to monitor reported s/s and seek emergency treatment if needed -Kenan Montiel RN ..................... ..................... ..................... ..................... ..................... ..................... ............... Heavy Equipment Supervisor Note From Trevon Chirinos: [facility] note Mbr's [...] 105, oral. Pt was given 500mg Tylenol ROAD CREW MEMBER around noon. Pt has had the wound on her R leg for about 6 months. A nurse comes in a few times a week to change the dressing. Pt is not being treated with antibiotics, but [facility] was here about 3 months ago and pt was given antibiotics for similar concerns. Pt's daughter also noted redness on the posterior portion on the right leg upper thigh. This was note noted yesterday but noted today. Pt denies SOB, CP, or pain in her leg. Pt's mental status appears well, speaking in full sentences, breathing non-labored, but appears slightly lethargic. consult:Administer 1g Ceftriaxone via IV - Completed after confirming 6 rights with the pt and family. 1g Tylenol - PO. also sent rx for antibiotics to pt's pharmacy.Redness on leg was marked with marker.Discussed red flags with pt and son. Pt's son lives with pt and is her COMMUNITY HEALTH ADVISOR. Informed to keep an eye redness, and look out for fever, AMS and other septic findings, and when to go to the ER. ..................... ..................... ..................... ..................... ..................... ..................... ............... Disposition: Fulfilled Sandhya Perez MD [address] [place] [address],[address], [place], [address], LALITO VALLE 02/25/2024 17:24:52 OBGyn Episode No OBEpisode recorded.
--- OUTSIDE RECORDS SUMMARY | 2024-08-26 18:23 | XMS_ITS | Encounter Summary ---
Author Organization [facility] Address [address] [facility] [address] [place] [address] Phone Care Team Providers Care Pattern Room Attendant Name Role Phone Amaya Lewis MD Primary Care Provider [phone] Reason for Visit * Reason Comments Med Refill Encounter Details Date Type Department Care Team (Late Contact Info) Description 08/30/2023 Refill [facility] [address] [place] [id number] Jose Hardy MD [address] [place] [address] Social History Tobacco Use Types [...] Office Visit [facility] [address] [place] [address] Jose Hardy MD [address] [place] [address] documented as of this encounter Visit Diagnoses Not on filedocumented in this encounter Care Teams Pattern Room Attendant Relationship Specialty Start Date End Date Amaya Lewis MD [address] [place] PCP - General Internal Medicine 05/20/24 documented as of this encounter
--- NOTE | 2024-08-26 19:18 | PHA.MEDREC ---
Addendum entered by Sara Garcia [facility] 08/26/24 19:48: reviewed by [facility], took furosemide off and left torsemide as it appears patient stopped filling furosemide in may and started filling torsemide. Original Note: Pharmacy Consult ? Medication Reconciliation Pharmacy has completed the medication reconciliation. Spoke with patient and patients son at bedside. Patient and her son confirmed the Warfarin 5mg tab and confirmed she is cutting them in half and taking 1/2 tab (2.5mg) daily and stated she took it last yesterday. The confirmed she took her morning medications this morning.
--- NOTE | 2024-08-26 19:55 | MHC.EDTECH ---
This tech took over care of pt at 1900, rounded and introduced self to pt, vitals taken, patient was a 2/assist to commode,pt urinated 350MLS of yellow urine,pt had a small amount of soft brown stool, maria elena-care given, labs and urine obtained and sent to lab, call dempsey in reach
--- NOTE | 2024-08-26 20:30 | MHC.EDTECH ---
Pure-wick placed at this time,pt tolerated well
[2024-08-26 20:32] LABS: Appearance Urine Clear; Color Urine Yellow; Glucose Urine UA Negative (Negative); Leukocyte Esterase Urine Negative (Negative); Nitrite Urine Negative (Negative); PH 5.5 (5.0-9.0); Urine Blood Negative (Negative); Urine Ketones Negative (Negative); Urine Protein Negative (Neg-Trace)
[2024-08-26 20:48] LABS: Partial Thromboplastin Time 63.4 SEC (26.0-36.8)
[2024-08-26 22:12] LABS: INTERNATIONAL NORM RATIO 3.6 (0.9-1.1)
[2024-08-27] VITALS (9 sets, daily range): BP systolic 95–114; BP diastolic 45–65; PULSE 64–97; RESP 16–19; TEMP 36–36.6; O2SAT 89–96
[2024-08-27] MEDS: 0.9 % Sodium Chloride Flush 3 ML SYRINGE IVFLUSH ×4 (00:15→23:25)
[2024-08-27] MEDS: Acetaminophen 325 MG TABLET 650 MG PO (00:24)
--- NOTE | 2024-08-27 00:25 | PC.NURSE ---
pt medicated for 3/10 BLE pain. PIll whole with water- tolerated well. PT requested and provided pudding, and juice. PT repositioned for comfort. Safety precautions in place, call dempsey within reach. Plan of care ongoing
[2024-08-27 05:39] LABS: Hematocrit 33.3 % (37.0-47.0); Hemoglobin 10.6 g/dl (12.0-16.0); Mean Corpuscular HGB Conc 31.8 g/dl (31.0-35.0); Mean Corpuscular Hemoglobin 29.5 pg (27.0-33.0); Mean Corpuscular Volume 92.8 fL (80.0-98.0); Mean Platelet Volume 10.3 fL (9.4-12.3); Platelet Count 169 X10*3/uL (160-400); Red Blood Count 3.59 X10*6/uL (4.20-5.50); Red Cell Distribution Width 14.1 % (11.0-16.0); White Blood Count 2.7 X10*3/uL (4.8-10.8)
[2024-08-27 05:49] LABS: Prothrombin Time 47.3 SEC (10.9-12.4)
[2024-08-27 05:55] LABS: Anion Gap 13 (12-20); Blood Urea Nitrogen 32 mg/dL (9-16); Calcium 8.5 mg/dL (8.4-10.2); Carbon Dioxide 26 mmol/L (22-29); Chloride 109 mmol/L (96-108); Creatinine Clr Calc Pharmacy 20.7; Estimated Glomerular Filt Rate 23; Glucose Random 103 mg/dL (60-115); Potassium 4.5 mmol/L (3.3-5.1); Sodium 143 mmol/L (135-145)
--- NOTE | 2024-08-27 06:27 | MHC.EDTECH ---
Patient has a wound on buttocks,barrier cream and foam dressing applied, RN aware
[2024-08-27] MEDS: Levothyroxine Sodium 75 MCG TABLET PO (07:27)
[2024-08-27] MEDS: Omeprazole 20 MG CAPSULE.DR PO (07:27)
[2024-08-27] MEDS: Cholecalciferol (Vitamin D3) 25 MCG TABLET 50 MCG PO (09:27)
[2024-08-27] MEDS: Cyanocobalamin (Vitamin B-12) 1,000 MCG TABLET 1000 MCG PO (09:27)
[2024-08-27] MEDS: Loratadine 10 MG TABLET PO (09:27)
[2024-08-27] MEDS: Montelukast Sodium 10 MG TABLET PO (09:27)
[2024-08-27] MEDS: Fluticasone/Umeclidinium/Vilanterol 100/62.5/25 BLST.W.DEV 1 PUFF INHALE (11:43)
--- NOTE | 2024-08-27 11:57 | PM.CNNEP ---
History of Present Illness Reason for Consult Consult date: 08/27/24 Chief Complaint Chief complaint: Hypothermia, CHF History of Present Illness Narrative: 84 year old patient with history of CKD followed by Dr Hardy admitted with JEN. In summary she was [facility] due to low blood pressure. She was reported to have shortnes of breath for over a week. At the time of the consultation patient denies chest pain, shortness of breath, nausea, vomiting or diarrhea. She was found to be hypotensive with systolic BP down to the 90s. Review of Systems Review of Systems 10 points ROS negative except for pertinent in HPI FOR[facility]LY [facility], [facility] Past Medical History Medical History (Updated 08/27/24 @ 12:02 by Efren Weathers MD) JEN (acute kidney injury) Tricuspid valve regurgitation Pulmonary hypertension Acute on chronic right heart failure Idiopathic hypotension Sepsis Cellulitis of right leg Lymphedema Non-healing wound of right lower extremity Venous stasis dermatitis of right lower extremity CHF (congestive heart failure) Hypothyroid Afib Asthma HTN (hypertension) Family History Family History Mother Gastric cancer Surgical History Surgical History S/P hip replacement Social History Social History Household Members: None Housing: Apartment Do you presently have visiting nurse or other home services: Yes (nursing 2-3 times weekly) Alcohol intake: never Comment: sleeping in recliner Patient Tobacco Use Status: Never used Tobacco Smoked in Last 30 Days: No Second Hand Smoke Exposure: No Advance Directives: Yes Advance Directives on File: Yes Advance Directives Date on File: 02/05/21 service: No Current occupational status: disabled Meds Allergies Allergy/AdvReac Type Severity Reaction Status Date / Time lisinopril [LISINOPRIL] Allergy Unknown UNKNOWN Verified 08/26/24 14:54 simvastatin [SIMVASTATIN] Allergy Unknown UNKNOWN Verified 08/26/24 14:54 Active Medications: Current Medications Acetaminophen (Acetaminophen 325 Mg Tablet) 650 mg PO Q6H PRN PRN Reason: Pain, Mild 1-3,fever,headache Last Admin: 08/27/24 00:24 Dose: 650 mg Albuterol Sulfate (Albuterol Sulfate (0.083%) 2.5 Mg/3 Ml Vial.Neb) 2.5 mg INHALE Q4H PRN PRN Reason: Shortness Of Breath Calcium Carbonate (Calcium Carbonate 750 Mg Tab.Chew) 750 mg PO Q4H PRN PRN Reason: Heartburn Cyanocobalamin (Cyanocobalamin (Vitamin B-12) 1,000 Mcg Tablet) 1,000 mcg PO DAILY [facility] Last Admin: 08/27/24 09:27 Dose: 1,000 mcg Fluticasone/Umeclidinium/Vilanterol (Fluticasone/Umeclidinium/Vilanterol 100/62.5/25 Blst.W.Dev) 1 puff INHALE RDAILY [facility] Last Admin: 08/27/24 11:43 Dose: 1 puff Levothyroxine Sodium (Levothyroxine Sodium 75 Mcg Tablet) 75 mcg PO DAILY@0600 [facility] Last Admin: 08/27/24 07:27 Dose: 75 mcg Loratadine (Loratadine 10 Mg Tablet) 10 mg PO DAILY [facility] Last Admin: 08/27/24 09:27 Dose: 10 mg Magnesium Hydroxide (Milk Of Magnesia 30 Ml Oral.Susp) 30 ml PO DAILY PRN PRN Reason: Constipation Melatonin (Melatonin 3 Mg Tablet) 6 mg PO BEDTIME PRN PRN Reason: Insomnia Montelukast Sodium (Montelukast Sodium 10 Mg Tablet) 10 mg PO DAILY [facility] Last Admin: 08/27/24 09:27 Dose: 10 mg Omeprazole (Omeprazole 20 Mg Capsule.Dr) 20 mg PO DAILY@0630 [facility] Last Admin: 08/27/24 07:27 Dose: 20 mg Sodium Chloride (0.9 % Sodium Chloride Flush 3 Ml Syringe) [facility] Last Admin: 08/27/24 07:29 Dose: 3 ml Vitamin D (Cholecalciferol (Vitamin D3) 25 Mcg Tablet) 50 mcg PO DAILY [facility] Last Admin: 08/27/24 09:27 Dose: 50 mcg Home Medications ?Medication ?Instructions ?Recorded ?Confirmed ?Last Taken ?Type cholecalciferol (vitamin D3) 50 50 mcg PO DAILY 02/04/21 08/26/24 08/26/24 History mcg (2,000 unit) capsule (Vitamin D3) loratadine 10 mg tablet 10 mg PO DAILY 08/06/1508/26/24 08/26/24 History omeprazole 20 mg capsule,delayed 20 mg PO DAILY@0630 02/04/21 08/26/24 08/26/24 History release fluticasone fur. 100 mcg-umeclid 1 puff inhalation DAILY 05/03/21 08/26/24 08/26/24 History 62.5 mcg-vilant 25 mcg inhalat.powder (Trelegy Ellipta) albuterol sulfate 2.5 mg/3 mL 2.5 mg inhalation Q4H PRN 08/09/21 08/26/24 Unknown History (0.083 %) solution for nebulization Shortness Of Breath montelukast 10 mg tablet 1 tab PO DAILY 08/09/21 08/26/24 08/26/24 History cyanocobalamin (vitamin B-12) 1,000 mcg PO DAILY 05/29/24 08/26/24 08/26/24 History 1,000 mcg tablet diltiazem HCl 240 mg 240 mg PO DAILY 05/29/24 08/26/24 08/26/24 History capsule,extended release 24 hr levothyroxine 75 mcg tablet 75 mcg PO DAILY@0600 05/29/24 08/26/24 08/26/24 History torsemide 20 mg tablet 40 mg PO BID 08/26/24 08/26/24 08/26/24 History warfarin 5 mg tablet 2.5 mg PO DAILY@1800 08/26/24 08/26/24 08/25/24 History Physical Exam Vital Signs: Last Vital Signs Temp 96.8 F 08/27/24 11:37 Pulse 69 08/27/24 11:45 Resp 16 08/27/24 11:45 BP 100/55 L 08/27/24 11:37 Pulse Ox 92 08/27/24 11:37 O2 Del Method Room Air 08/27/24 11:37 BMI result Body Mass Index 32.2 Const General: alert and awake HEENT Head: Yes normocephalic and Yes atraumatic Neck Neck: Yes supple Resp Auscultation: clear to auscultation bilaterally Cardio Heart sounds: S1 normal heart sound present GI Palpation (GI): Soft to palpation and nontender Extrem General: Yes edema Results Lab Results 08/27/24 05:35 08/27/24 05:35 Lab results: Chemistry 08/26/24 08/27/24 15:38 05:35 Sodium 143 143 Potassium 3.6 4.5 D Carbon Dioxide 27 26 BUN 34 H 32 H Creatinine 1.98 H 2.05 H Calcium 8.5 8.5 Hematology 08/26/24 08/27/24 15:09 05:35 WBC 3.4 L 2.7 L Hgb 10.9 L 10.6 L Plt Count 183 D 169 Urinalysis 08/26/24 20:24 Urine Color Yellow Urine Appearance Clear Urine pH 5.5 Ur Specific [place] 1.010 Urine Protein Negative Urine Glucose (UA) Negative Urine Ketones Negative Urine Blood Negative Urine Nitrite Negative Ur Leukocyte Esterase Negative Assessment and Plan (1) JEN (acute kidney injury): Status: Resolved (2) (HFpEF) heart failure with preserved ejection fraction: Status: Acute (3) CKD (chronic kidney disease) stage 3, GFR 30-59 ml/min: Status: Acute Plan multifactorial JEN: -cardio renal syndrome -renal hypoperfusion due to hypotension benign urine sediment known CKD baseline Scr ~ 1.5 mg/dl h/o HFpEF REC Urine sodium bladder scan hold diuretics no IVF midodrine if BP low monitor urine output follow kidney function and electrolytes Procedures Date of Service Date of Service: 08/27/24
--- NOTE | 2024-08-27 13:34 | HO.PM.IMPN ---
Subjective Subjective Date of Service: 08/27/24 Interval History: boderline bp Review of Systems no sob , has some cough no fevers Physical Exam Vital Signs: Vital Signs: Last Vital Signs Temp 96.8 F 08/27/24 11:37 Pulse 69 08/27/24 11:45 Resp 16 08/27/24 11:45 BP 100/55 L 08/27/24 11:37 Pulse Ox 92 08/27/24 11:37 O2 Del Method Room Air 08/27/24 11:37 BMI result Body Mass Index 32.2 Appearance: Alert.? Oriented X3.? cvs: rrr, [id number]. res: clear to auscultation ,no rhonchii or wheezing abd: no rebound or guarding ,nt, bs present. ext pulses present , no cyanosis has lymphedema lower legs neuro: axo3 , nonfocal. Objective Data Active Medications Acetaminophen (Acetaminophen 325 Mg Tablet) 650 mg PO Q6H PRN PRN Reason: Pain, Mild 1-3,fever,headache Last Admin: 08/27/24 00:24 Dose: 650 mg Documented By: MEREDITH Albuterol Sulfate (Albuterol Sulfate (0.083%) 2.5 Mg/3 Ml Vial.Neb) 2.5 mg INHALE Q4H PRN PRN Reason: Shortness Of Breath Calcium Carbonate (Calcium Carbonate 750 Mg Tab.Chew) 750 mg PO Q4H PRN PRN Reason: Heartburn Cyanocobalamin (Cyanocobalamin (Vitamin B-12) 1,000 Mcg Tablet) 1,000 mcg PO DAILY REPLACED BY [facility] Last Admin: 08/27/24 09:27 Dose: 1,000 mcg Documented By: MATILDE Fluticasone/Umeclidinium/Vilanterol (Fluticasone/Umeclidinium/Vilanterol 100/62.5/25 Blst.W.Dev) 1 puff INHALE RDAILY REPLACED BY [facility] Last Admin: 08/27/24 11:43 Dose: 1 puff Documented By: BISI Levothyroxine Sodium (Levothyroxine Sodium 75 Mcg Tablet) 75 mcg PO DAILY@0600 REPLACED BY [facility] Last Admin: 08/27/24 07:27 Dose: 75 mcg Documented By: VIRIDIANA Loratadine (Loratadine 10 Mg Tablet) 10 mg PO DAILY REPLACED BY [facility] Last Admin: 08/27/24 09:27 Dose: 10 mg Documented By: MATILDE Magnesium Hydroxide (Milk Of Magnesia 30 Ml Oral.Susp) 30 ml PO DAILY PRN PRN Reason: Constipation Melatonin (Melatonin 3 Mg Tablet) 6 mg PO BEDTIME PRN PRN Reason: Insomnia Montelukast Sodium (Montelukast Sodium 10 Mg Tablet) 10 mg PO DAILY REPLACED BY [facility] Last Admin: 08/27/24 09:27 Dose: 10 mg Documented By: MATILDE Omeprazole (Omeprazole 20 Mg Capsule.Dr) 20 mg PO DAILY@0630 REPLACED BY [facility] Last Admin: 08/27/24 07:27 Dose: 20 mg Documented By: VIRIDIANA Sodium Chloride (0.9 % Sodium Chloride Flush 3 Ml Syringe) 3 ml IVFLUSH QSHIFT REPLACED BY [facility] Last Admin: 08/27/24 07:29 Dose: 3 ml Documented By: VIRIDIANA Vitamin D (Cholecalciferol (Vitamin D3) 25 Mcg Tablet) 50 mcg PO DAILY REPLACED BY [facility] Last Admin: 08/27/24 09:27 Dose: 50 mcg Documented By: MATILDE Labs 08/27/24 05:35 08/27/24 05:35 Labs: Laboratory Results - last 24 hr 08/26/24 08/26/24 08/26/24 15:09 15:32 15:38 MCV 93.8 MCH 29.2 MCHC 31.1 RDW 14.2 Plt Count 183 D MPV 10.5 Immature Gran % (Auto) 0.3 Neut % (Auto) 50.5 Lymph % (Auto) 32.1 [place] % (Auto) 10.6 Eos % (Auto) 5.0 H Baso % (Auto) 1.5 Lymph # (Auto) 1.1 L [place] # (Auto) 0.4 Eos # (Auto) 0.2 Baso # (Auto) 0.1 Abs Immat Gran (auto) 0.01 Absolute Neuts (auto) 1.7 L Absolute Nucleated RBC 0.000 Nucleated RBC % (auto) 0.0 PT Cancelled INR Cancelled APTT Cancelled VBG pH VBG pCO2 VBG pO2 VBG HCO3 VBG O2 Saturation VBG Base Excess Anion Gap 13 Estim Creat Clear Calc 21.5 Estimated GFR 24 Random Glucose 107 Lactic Acid 1.5 Calcium 8.5 B-Natriuretic Peptide 189 H TSH 3.60 Random Cortisol Urine Color Urine Appearance Urine pH Ur Specific [place] Urine Protein Urine Glucose (UA) Urine Ketones Urine Blood Urine Nitrite Ur Leukocyte Esterase Influenza Type A (PCR) NEGATIVE Influenza Type B (PCR) NEGATIVE RSV RNA Qual (PCR) NEGATIVE SARS-CoV-2 RNA (RT-PCR) NEGATIVE 08/26/24 08/26/24 08/26/24 15:48 20:24 20:24 MCV MCH MCHC RDW Plt Count MPV Immature Gran % (Auto) Neut % (Auto) Lymph % (Auto) [place] % (Auto) Eos % (Auto) Baso % (Auto) Lymph # (Auto) [place] # (Auto) Eos # (Auto) Baso # (Auto) Abs Immat Gran (auto) Absolute Neuts (auto) Absolute Nucleated RBC Nucleated RBC % (auto) PT 42.0 H D Cancelled INR 3.6 H APTT VBG pH 7.50 H VBG pCO2 37 VBG pO2 171 VBG HCO3 29 H VBG O2 Saturation 100.0 VBG Base Excess 6.0 Anion Gap Estim Creat Clear Calc Estimated GFR Random Glucose Lactic Acid Calcium B-Natriuretic Peptide TSH Random Cortisol Urine Color Urine Appearance Urine pH Ur Specific [place] Urine Protein Urine Glucose (UA) Urine Ketones Urine Blood Urine Nitrite Ur Leukocyte Esterase Influenza Type A (PCR) Influenza Type B (PCR) RSV RNA Qual (PCR) SARS-CoV-2 RNA (RT-PCR) 08/26/24 08/27/24 20:24 05:35 MCV 92.8 MCH 29.5 MCHC 31.8 RDW 14.1 Plt Count 169 MPV 10.3 Immature Gran % (Auto) Neut % (Auto) Lymph % (Auto) [place] % (Auto) Eos % (Auto) Baso % (Auto) Lymph # (Auto) [place] # (Auto) Eos # (Auto) Baso # (Auto) Abs Immat Gran (auto) Absolute Neuts (auto) Absolute Nucleated RBC 0.000 Nucleated RBC % (auto) 0.0 PT 47.3 H INR Cancelled 4.0 H APTT 63.4 H* VBG pH VBG pCO2 VBG pO2 VBG HCO3 VBG O2 Saturation VBG Base Excess Anion Gap 13 Estim Creat Clear Calc 20.7 Estimated GFR 23 Random Glucose 103 Lactic Acid Calcium 8.5 B-Natriuretic Peptide TSH Random Cortisol 91.0 Urine Color Yellow Urine Appearance Clear Urine pH 5.5 Ur Specific [place] 1.010 Urine Protein Negative Urine Glucose (UA) Negative Urine Ketones Negative Urine Blood Negative Urine Nitrite Negative Ur Leukocyte Esterase Negative Influenza Type A (PCR) Influenza Type B (PCR) RSV RNA Qual (PCR) SARS-CoV-2 RNA (RT-PCR) Assessment and Plan (1) CKD (chronic kidney disease) stage 3, GFR 30-59 ml/min: Status: Acute (2) (HFpEF) heart failure with preserved ejection fraction: Status: Acute Assessment and Plan: 84-year-old Maltese-speaking female with history of chronic atrial fibrillation on Coumadin, obesity, chronic diastolic CHF, CKD 3, hypothyroidism, chronic lymphedema, moderate persistent asthma who was sent to the emergency department after visiting urgent care provider found her to be hypotensive at home and vitals showed hypothermia in the ED. Hypothermia -unclear etiology core temperature improved with Lesvia Hugger TSH normal, radom cortisol levels seems fine. UA negative, blood cultures pending no clear other source of infection idenified received empiric hydrocortisone in ED on admission will continue to moniter ALKA on CKD3 ?cardiorenal pt reporting sob; cxr c/w CHF; no hypoxia received IV lasix in ED will hold further diuresis and moniter BMP, also asked for nephrology consult-?cardiorenal/alka on ckd/boderline bp. d/w nephro-hold diuretics ,pvr and moniter bp ,if needed may need midodrine. Acute on Chronic HFpEF hold further diuresis as above SIRS does meet sirs criteria with hypothermia and white count <4 hypotermia seems to be resolved. no obvious source of infection at this time; UA negative received empiric zosyn, will defer further abx for now lactic acid normal blood cultures pending chronic b/l LE lymphedema legs do no appear infected received empiric abx in ED, will hold further abx for now wound care consult chronic atrial fibrillation INR supreatherapeutic ,hold warfarin. moderate persistent asthma :No acute exacerbation at this time Continue home medication hypothyroidism: Continue Synthroid morbid obesity BMI 32.2 Weight loss encouraged DVT prophylaxis-Lovenox ongoing need hospital for evaluation and management of hypothermia and acute on chronic CHF, alka and boderline bp- need close monitering for renal function/electrolytes and bp/hypothermia monitering. Quality Stroke Does the patient have a stroke diagnosis?: No VTE Prior VTE?: No VTE Risk Level:: Medical - moderate - high VTE Device Contraindication: Treatment Not Indicated VTE Drug Contraindication: N/A - Med Ordered
--- NOTE | 2024-08-27 15:01 | MHC.CM.PN ---
Addendum entered by Livia Segura RN 08/27/24 15:10: PCP ON FILE IN [facility] LOCATED IN [facility]. Original Note: IMM 08/27/24, EMR REVIEWED, PT W/HYPOTHERMIA/JEN, CM MET W/PT VIA PNEUMATIC RIVETER, PT REPORTS SHE LIVES ALONE, REPORTS SHE USES A WC AT [place]ELINE, SLEEPS IN A RECLINER, SHOWER CHAIR AND BEDSIDE COMMODE FOR DME, PT REPORTS HER PRIMARY CONTACT/SON ALEXANDRO IS HER DAILY LAST CHALKER HOWEVER PT CANNOT RECALL NAME OF COMPANY OR HOURS, PT DENIES HAVING [facility] SERVICES IN HOME. PT DOES NOT RECALL NAME OF HER PCP AND REPORTS SHE GOES TO PCP IN [facility].
[2024-08-27 15:52] LABS: Adenovirus PCR Not Detected (Not Detect.); Bordetella parapertussis PCR Not Detected (Not Detect.); Bordetella pertussis PCR Not Detected (Not Detect.); Chlamydia pneumoniae PCR Not Detected (Not Detect.); Coronavirus 229E PCR Not Detected (Not Detect.); Coronavirus HKU1 PCR Not Detected (Not Detect.); Coronavirus NL63 PCR Not Detected (Not Detect.); Coronavirus OC43 PCR Not Detected (Not Detect.); Human metapneumovirus PCR Not Detected (Not Detect.); Influenza A PCR Not Detected (Not Detect.); Influenza B PCR Not Detected (Not Detect.); Mycoplasma pneumoniae PCR Not Detected (Not Detect.); Parainfluenza 1 PCR Not Detected (Not Detect.); Parainfluenza 2 PCR Not Detected (Not Detect.); Parainfluenza 3 PCR Not Detected (Not Detect.); Parainfluenza 4 PCR Not Detected (Not Detect.); RSV PCR Not Detected (Not Detect.); Rhino/Enterovirus PCR Not Detected (Not Detect.)
[2024-08-27 16:40] LABS: SARS-CoV-2 PCR Not Detected (Not Detect.)
--- NOTE | 2024-08-28 | ECG_ITS ---
Test Reason : Bradycardia /pause Blood Pressure : */* mmHG Vent. Rate : 62 BPM Atrial Rate : * BPM P-R Int : * ms QRS Dur : 84 ms QT Int : 398 ms P-R-T Axes : * -1 20 degrees QTcB Int : 403 ms Atrial fibrillation Low voltage QRS Septal infarct (cited on or before 05-Oct-2021) Cannot rule out Inferior infarct (cited on or before 05-Oct-2021) Abnormal ECG When compared with ECG of 26-Aug-2024 16:22, No significant change was found Referred By: Annetta Feng Electronically Signed By: TRENTON BURGESS MD
[2024-08-28 04:00] VITALS: BP 100/57; PULSE 66; RESP 16; TEMP 36; O2SAT 94
[2024-08-28] MEDS: Omeprazole 20 MG CAPSULE.DR PO (05:05)
[2024-08-28] MEDS: Levothyroxine Sodium 75 MCG TABLET PO (05:05)
[2024-08-28 07:16] VITALS: BP 97/57; PULSE 71; RESP 18; TEMP 37.2; O2SAT 99
[2024-08-28 07:17] LABS: INTERNATIONAL NORM RATIO 3.2 (0.9-1.1); Prothrombin Time 37.8 SEC (10.9-12.4)
[2024-08-28] MEDS: Fluticasone/Umeclidinium/Vilanterol 100/62.5/25 BLST.W.DEV 1 PUFF INHALE (08:18)
[2024-08-28 08:20] VITALS: PULSE 72; RESP 20; O2SAT 99
[2024-08-28] MEDS: Montelukast Sodium 10 MG TABLET PO (08:32)
[2024-08-28] MEDS: Loratadine 10 MG TABLET PO (08:32)
[2024-08-28] MEDS: 0.9 % Sodium Chloride Flush 3 ML SYRINGE IVFLUSH ×3 (08:32→23:36)
[2024-08-28] MEDS: Cholecalciferol (Vitamin D3) 25 MCG TABLET 50 MCG PO (08:32)
[2024-08-28] MEDS: Cyanocobalamin (Vitamin B-12) 1,000 MCG TABLET 1000 MCG PO (08:32)
[2024-08-28] MEDS: Acetaminophen 325 MG TABLET 650 MG PO ×3 (08:37→23:35)
[2024-08-28 09:37] LABS: Anion Gap 10 (12-20); Blood Urea Nitrogen 33 mg/dL (9-16); Calcium 8.3 mg/dL (8.4-10.2); Carbon Dioxide 30 mmol/L (22-29); Chloride 108 mmol/L (96-108); Estimated Glomerular Filt Rate 26; Glucose Random 78 mg/dL (60-115); Potassium 4.5 mmol/L (3.3-5.1); Sodium 143 mmol/L (135-145)
[2024-08-28 11:17] VITALS: BP 120/61; PULSE 66; RESP 18; TEMP 36.8; O2SAT 94
[2024-08-28 16:00] VITALS: BP 122/57; PULSE 70; RESP 18; TEMP 36.6; O2SAT 93
--- NOTE | 2024-08-28 16:12 | P.CDIM_ITS ---
PROVIDER RESPONSE TEXT: To clarify, the appropriate diagnosis supported by the clinical indicators: Paroxysmal atrial fibrillation QUERY TEXT: PHYSICIAN'S DOCUMENTATION REQUEST Date of Query: 08/28/2024 01:10 PM EST Patient Name: Adriana Roldan Admit Date: 08/26/2024 Dear Annetta Feng MD, A review of the medical record indicates additional documentation may be needed. Please review below and update the documentation accordingly. Clinical Indicators: Progress notes 3/4 - Chronic atrial fibrillation INR supreatherapeutic, hold warfarin. If possible, please provide further specificity regarding atrial fibrillation, such as: Paroxysmal atrial fibrillation Persistent atrial fibrillation Long lasting persistent atrial fibrillation Permanent atrial fibrillation Other (explain) Clinically unable to determine (explain) Thank you, Beverley Demarco, CCS, CDIS Use of terms such as suspected, likely, concern for, or probable (associated with a specific diagnosi s that is being evaluated, monitored, or treated as if it exists) are acceptable and can be coded in the inpatient se tting, when documented at the time of discharge. Please use your independent medical judgment in providing your response. THIS QUERY IS PART OF THE PERMANENT MEDICAL RECORD
--- NOTE | 2024-08-28 17:22 | HO.PM.IMPN ---
Subjective Subjective Date of Service: 08/28/24 Interval History: boderline bp,paf with 4 sec pause Review of Systems feels improving has some cough dry. no fevers Physical Exam Vital Signs: Vital Signs: Last Vital Signs Temp 97.9 F 08/28/24 16:00 Pulse 70 08/28/24 16:00 Resp 18 08/28/24 16:00 BP 122/57 L 08/28/24 16:00 Pulse Ox 93 08/28/24 16:00 O2 Del Method Room Air 08/28/24 16:00 O2 Flow Rate 2 08/28/24 07:16 BMI result Body Mass Index 32.2 Appearance: Alert.? Oriented X3.? cvs: rrr, [id number]. res: clear to auscultation. abd:soft ,nt, bs present. ext pulses present , no cyanosis has lymphedema lower legs neuro: axo3 , nonfocal. Objective Data Active Medications Acetaminophen (Acetaminophen 325 Mg Tablet) 650 mg PO Q6H PRN PRN Reason: Pain, Mild 1-3,fever,headache Last Admin: 08/28/24 14:11 Dose: 650 mg Documented By: DANIA Albuterol Sulfate (Albuterol Sulfate (0.083%) 2.5 Mg/3 Ml Vial.Neb) 2.5 mg INHALE Q4H PRN PRN Reason: Shortness Of Breath Atropine Sulfate (Atropine Sulfate 1 Mg/10 Ml Syringe) 0.5 mg IVPUSH ONCE PRN PRN Reason: bradycardia Calcium Carbonate (Calcium Carbonate 750 Mg Tab.Chew) 750 mg PO Q4H PRN PRN Reason: Heartburn Cyanocobalamin (Cyanocobalamin (Vitamin B-12) 1,000 Mcg Tablet) 1,000 mcg PO DAILY [facility] Last Admin: 08/28/24 08:32 Dose: 1,000 mcg Documented By: DANIA Fluticasone/Umeclidinium/Vilanterol (Fluticasone/Umeclidinium/Vilanterol 100/62.5/25 Blst.W.Dev) 1 puff INHALE RDAILY [facility] Last Admin: 08/28/24 08:18 Dose: 1 puff Documented By: HAYLEY Levothyroxine Sodium (Levothyroxine Sodium 75 Mcg Tablet) 75 mcg PO DAILY@0600 [facility] Last Admin: 08/28/24 05:05 Dose: 75 mcg Documented By: LOKESH Loratadine (Loratadine 10 Mg Tablet) 10 mg PO DAILY [facility] Last Admin: 08/28/24 08:32 Dose: 10 mg Documented By: DANIA Magnesium Hydroxide (Milk Of Magnesia 30 Ml Oral.Susp) 30 ml PO DAILY PRN PRN Reason: Constipation Melatonin (Melatonin 3 Mg Tablet) 6 mg PO BEDTIME PRN PRN Reason: Insomnia Montelukast Sodium (Montelukast Sodium 10 Mg Tablet) 10 mg PO DAILY [facility] Last Admin: 08/28/24 08:32 Dose: 10 mg Documented By: DANIA Omeprazole (Omeprazole 20 Mg Capsule.Dr) 20 mg PO DAILY@0630 [facility] Last Admin: 08/28/24 05:05 Dose: 20 mg Documented By: LOKESH Sodium Chloride (0.9 % Sodium Chloride Flush 3 Ml Syringe) 3 ml IVFLUSH QSHIFT [facility] Last Admin: 08/28/24 16:42 Dose: 3 ml Documented By: DANIA Vitamin D (Cholecalciferol (Vitamin D3) 25 Mcg Tablet) 50 mcg PO DAILY [facility] Last Admin: 08/28/24 08:32 Dose: 50 mcg Documented By: DANIA Labs 08/27/24 05:35 08/28/24 08:51 Labs: Laboratory Results - last 24 hr 08/28/24 08/28/24 06:31 08:51 PT 37.8 H D INR 3.2 H Anion Gap 10 L Estim Creat Clear Calc 23.0 Estimated GFR 26 Random Glucose 78 Calcium 8.3 L Microbiology Microbiology Results: Microbiology 08/26/24 15:32 Blood Culture - Preliminary Blood - Venous No growth after 24 hours. 08/26/24 15:32 Blood Culture - Preliminary Blood - Venous No growth after 24 hours. Assessment and Plan (1) CKD (chronic kidney disease) stage 3, GFR 30-59 ml/min: Status: Acute (2) (HFpEF) heart failure with preserved ejection fraction: Status: Acute (3) Sinus pause: Status: Acute Plan 84-year-old Georgian-speaking female with history of chronic atrial fibrillation on Coumadin, obesity, chronic diastolic CHF, CKD 3, hypothyroidism, chronic lymphedema, moderate persistent asthma who was sent to the emergency department after visiting urgent care provider found her to be hypotensive at home and vitals showed hypothermia in the ED. Hypothermia -unclear etiology core temperature improved with Lesvia Hugger TSH normal, radom cortisol levels seems fine. UA negative, blood cultures neg@24hrs no clear other source of infection idenified received empiric hydrocortisone in ED on admission will continue to moniter ALKA on CKD3 ?cardiorenal pt reporting sob; cxr c/w CHF; no hypoxia received IV lasix in ED will hold further diuresis and moniter BMP, also asked for nephrology consult-?cardiorenal/alka on ckd/boderline bp. d/w nephro-hold diuretics ,pvr and moniter bp ,if needed may need midodrine. Acute on Chronic HFpEF hold further diuresis as above SIRS does meet sirs criteria with hypothermia and white count <4 hypotermia seems to be resolved. no obvious source of infection at this time; UA negative received empiric zosyn, will defer further abx for now lactic acid normal blood cultures negative @24hrs chronic b/l LE lymphedema legs do no appear infected received empiric abx in ED, will hold further abx for now wound care consult chronic atrial fibrillation had 4 sec pause on tele . INR supreatherapeutic ,hold warfarin. moderate persistent asthma :No acute exacerbation at this time Continue home medication hypothyroidism: Continue Synthroid morbid obesity BMI 32.2 Weight loss encouraged DVT prophylaxis-Lovenox ongoing need hospital for evaluation and management of hypothermia and acute on chronic CHF, alka and boderline bp- need close monitering for renal function/electrolytes and bp/hypothermia monitering. Quality Stroke Does the patient have a stroke diagnosis?: No VTE Prior VTE?: No VTE Risk Level:: Medical - moderate - high VTE Device Contraindication: Treatment Not Indicated VTE Drug Contraindication: N/A - Med Ordered
--- NOTE | 2024-08-28 17:33 | HO.WOUND ---
Wound Consult: Initial 84yr old?female admitted to [facility] on 08/26/24 - See progress notes and H&P for detailed history.? Wound consult placed for Bilateral Lower Legs and buttock.? Patient agreeable to assessment and photo documentation.? Patient follows with outpt wound clinic recommend continued follow up at time of d/c. Bilateral lower Legs Etiology: ??Lymphdemea Present on Admission Wound Bed: scattered open areas of red pink wound bed with dry thickened tissue to lower legs Edges: ? irregular Betty wound: ? Thickened tissue, papillomatous plaques noted throughout both lower legs No Induration, Fluctuance or Warmth noted Pain: leg tenderness reported Goals of Treatment: ? Elevate and moisture management with Durafiber AG Durafiber AG was not available at the time of my assessment therefore Medihoney was used. Recommend Durfiber Ag if available if not may continue with Medihoney gel and dry ABD gauze dressing Sacrum - Right Etiology: ??Stage 2 Pressure Injury POA Wound Bed: red pink moist clean tissue Edges: ? irregular Betty wound: ? thickened macerated tissue MASD Chronic down to bilateral posterior thighs No Induration, Fluctuance or Warmth noted Pain: tenderness reported Goals of Treatment: ? off load pressure and Triad Recommendations: 1. Turn and Reposition every 2 hours and as needed for patient comfort.? Use pillows or wedges to support off loading positions. 2. Off Load all bony prominences with use of pillows and heel boots if needed.? Apply Preventative foams where needed. ? 3. Monitor for incontinence and moisture control, use barrier creams when needed for prevention and treatment. 4. Provide adequate and supplemental nutrition.? 5. Continue low air loss mattress. 6. When applicable maintain blood glucose levels per Providers order. 7. Bilateral Lower Legs - Elevate lower legs off of surface of bed with use of pillows.? Cleanse with Denisha Brewster, Pat dry.? Apply barrier cream to periwound. Apply layer of Durafiber to open wound beds secure with ABD pad, gauze wrap and tape.? Change every other day. continue to follow up outpt with wound clinic. Medihoney was used for todays dressing. Recommend Durfiber Ag if available if not may continue with Medihoney gel and dry ABD gauze dressing 8. Sacrum - Off Load Pressure with Q2 hr turns and use of pillows - Cleanse with PH balance spray or wipes, pat dry. ?Apply thin layer of Triad to wound bed - only pat and dab no scrub and rub when soiling occurs. Reapply thin layer PRN after each episode of incontinence. Re-consult wound care Nurse for wound deterioration or wound changes.
[2024-08-28 19:59] VITALS: BP 113/57; PULSE 72; RESP 16; TEMP 36.9; O2SAT 94
[2024-08-29] VITALS (9 sets, daily range): BP systolic 91–128; BP diastolic 57–61; PULSE 70–90; RESP 14–20; TEMP 36–36.7; O2SAT 93–97
[2024-08-29] MEDS: Omeprazole 20 MG CAPSULE.DR PO (06:03)
[2024-08-29] MEDS: Levothyroxine Sodium 75 MCG TABLET PO (06:03)
[2024-08-29 07:03] LABS: INTERNATIONAL NORM RATIO 2.2 (0.9-1.1); Prothrombin Time 26.1 SEC (10.9-12.4)
[2024-08-29] MEDS: Fluticasone/Umeclidinium/Vilanterol 100/62.5/25 BLST.W.DEV 1 PUFF INHALE (08:00)
[2024-08-29] MEDS: Cholecalciferol (Vitamin D3) 25 MCG TABLET 50 MCG PO (08:23)
[2024-08-29] MEDS: 0.9 % Sodium Chloride Flush 3 ML SYRINGE IVFLUSH ×2 (08:23→20:18)
[2024-08-29] MEDS: Cyanocobalamin (Vitamin B-12) 1,000 MCG TABLET 1000 MCG PO (08:24)
[2024-08-29] MEDS: Montelukast Sodium 10 MG TABLET PO (08:24)
[2024-08-29] MEDS: Loratadine 10 MG TABLET PO (08:24)
[2024-08-29] MEDS: Acetaminophen 325 MG TABLET 650 MG PO (08:24)
--- NOTE | 2024-08-29 10:06 | PM.CNCAR ---
History of Present Illness History of Present Illness Date of Service: 08/29/24 Requesting physician: Annetta Feng Consult reason: atrial fibrillation and congestive heart failure Chief complaint: Hypothermia, CHF Narrative: I was consulted to see carbonate in cardiology consultation today for slow heart rate noted yesterday on the monitor as well as possible congestive heart failure. History was obtained with help of daycare teacher by bedside. Patient brought into the hospital with hypothermia. She is not sure as to why she is in the hospital but complains of bilateral leg swelling and difficulty breathing when she lays down. She says she was history of palpitation but is not aware of being in atrial fibrillation however she says that she is on blood thinners at home. At home she was on Cardizem for rate control. She is also on torsemide 40 mg b.i.d.. She is having leg swelling also having complaining of pain in his legs. She denies any palpitation overnight. Overnight her heart rate has remained pretty much stable in the 70s and 80s. She is currently not on any rate lowering medications. No other symptoms offered by her. She has overall limited functional capacity at home. Review of Systems Constitutional: Constitutional: Reports weakness Eyes: Eyes: Reports no additional eye complaints Cardiovascular: Cardiovascular: Denies chest pain, Reports leg edema, Denies lightheadedness, Denies palpitations and Reports orthopnea Respiratory: Respiratory: Reports cough and Reports excessive phlegm production Gastrointestinal: Gastrointestinal: Reports no additional gastrointestinal complaints Genitourinary: Genitourinary: Reports no additional female genitourinary complaints Neurologic: Reports weakness Psychiatric: Psychiatric: Reports no additional psychiatric complaints Endocrine: Endocrine: Denies palpitations [facility] Past Medical History Medical History (Updated 08/29/24 @ 10:18 by Michele Rosario MD) JEN (acute kidney injury) Tricuspid valve regurgitation Pulmonary hypertension Acute on chronic right heart failure Idiopathic hypotension Sepsis Cellulitis of right leg Lymphedema Non-healing wound of right lower extremity Venous stasis dermatitis of right lower extremity CHF (congestive heart failure) Hypothyroid Afib Asthma HTN (hypertension) Family History Family History Mother Gastric cancer Surgical History Surgical History S/P hip replacement Social History Social History Household Members: None Housing: Apartment Do you presently have visiting nurse or other home services: Yes ([employer]NO[employer]) Alcohol intake: never Comment: sleeping in recliner Patient Tobacco Use Status: Never used Tobacco Smoked in Last 30 Days: No Second Hand Smoke Exposure: No Use of substances other than those prescribed or required for medical reasons: No Currently Displaying Signs/Symptoms of Drug Intoxication Withdrawal: No Have you been hit, kicked, punched, or otherwise hurt by someone within the past year? If so, by whom?: No Do you feel safe in your current relationship?: Yes Is there a partner from a previous relationship who is making you feel unsafe now?: No Are you made to feel afraid or neglected: No Advance Directives: Yes Advance Directives on File: Yes Advance Directives Date on File: 02/05/21 Do you have a plan to hurt others: No Plan Recently lost weight without trying: No Nutrition Risks: No Nutritional Risk Patient : No : No Poor oral hygiene: No service: No Current occupational status: disabled Meds Allergies Allergy/AdvReac Type Severity Reaction Status Date / Time lisinopril [LISINOPRIL] Allergy Unknown UNKNOWN Verified 08/26/24 14:54 simvastatin [SIMVASTATIN] Allergy Unknown UNKNOWN Verified 08/26/24 14:54 Active Medications: Current Medications Acetaminophen (Acetaminophen 325 Mg Tablet) 650 mg PO Q6H PRN PRN Reason: Pain, Mild 1-3,fever,headache Last Admin: 08/29/24 08:24 Dose: 650 mg Albuterol Sulfate (Albuterol Sulfate (0.083%) 2.5 Mg/3 Ml Vial.Neb) 2.5 mg INHALE Q4H PRN PRN Reason: Shortness Of Breath Atropine Sulfate (Atropine Sulfate 1 Mg/10 Ml Syringe) 0.5 mg IVPUSH ONCE PRN PRN Reason: bradycardia Calcium Carbonate (Calcium Carbonate 750 Mg Tab.Chew) 750 mg PO Q4H PRN PRN Reason: Heartburn Cyanocobalamin (Cyanocobalamin (Vitamin B-12) 1,000 Mcg Tablet) 1,000 mcg PO DAILY [facility] Last Admin: 08/29/24 08:24 Dose: 1,000 mcg Fluticasone/Umeclidinium/Vilanterol (Fluticasone/Umeclidinium/Vilanterol 100/62.5/25 Blst.W.Dev) 1 puff INHALE RDAILY [facility] Last Admin: 08/29/24 08:00 Dose: 1 puff Furosemide (Furosemide 20 Mg/2 Ml Vial) 20 mg IVPUSH Q12H [facility]; Protocol Levothyroxine Sodium (Levothyroxine Sodium 75 Mcg Tablet) 75 mcg PO DAILY@0600 [facility] Last Admin: 08/29/24 06:03 Dose: 75 mcg Loratadine (Loratadine 10 Mg Tablet) 10 mg PO DAILY [facility] Last Admin: 08/29/24 08:24 Dose: 10 mg Magnesium Hydroxide (Milk Of Magnesia 30 Ml Oral.Susp) 30 ml PO DAILY PRN PRN Reason: Constipation Melatonin (Melatonin 3 Mg Tablet) 6 mg PO BEDTIME PRN PRN Reason: Insomnia Montelukast Sodium (Montelukast Sodium 10 Mg Tablet) 10 mg PO DAILY [facility] Last Admin: 08/29/24 08:24 Dose: 10 mg Omeprazole (Omeprazole 20 Mg Capsule.Dr) 20 mg PO DAILY@0630 [facility] Last Admin: 08/29/24 06:03 Dose: 20 mg Sodium Chloride (0.9 % Sodium Chloride Flush 3 Ml Syringe) 3 ml IVFLUSH QSHIFT [facility] Last Admin: 08/29/24 08:23 Dose: 3 ml Vitamin D (Cholecalciferol (Vitamin D3) 25 Mcg Tablet) 50 mcg PO DAILY [facility] Last Admin: 08/29/24 08:23 Dose: 50 mcg Warfarin Sodium (Warfarin Sodium 2.5 Mg Tablet) 2.5 mg PO DAILY@1800 [facility] Home Medications ?Medication ?Instructions ?Recorded ?Confirmed ?Last Taken ?Type cholecalciferol (vitamin D3) 50 50 mcg PO DAILY 02/04/21 08/26/24 08/26/24 History mcg (2,000 unit) capsule (Vitamin D3) loratadine 10 mg tablet 10 mg PO DAILY 02/04/21 08/26/24 08/26/24 History omeprazole 20 mg capsule,delayed 20 mg PO DAILY@0630 02/04/21 08/26/24 08/26/24 History release fluticasone fur. 100 mcg-umeclid 1 puff inhalation DAILY 05/03/21 08/26/24 08/26/24 History 62.5 mcg-vilant 25 mcg inhalat.powder (Trelegy Ellipta) albuterol sulfate 2.5 mg/3 mL 2.5 mg inhalation Q4H PRN 08/09/21 08/26/24 Unknown History (0.083 %) solution for nebulization Shortness Of Breath montelukast 10 mg tablet 1 tab PO DAILY 08/09/21 08/26/24 08/26/24 History cyanocobalamin (vitamin B-12) 1,000 mcg PO DAILY 05/29/24 08/26/24 08/26/24 History 1,000 mcg tablet diltiazem HCl 240 mg 240 mg PO DAILY 05/29/24 08/26/24 08/26/24 History capsule,extended release 24 hr levothyroxine 75 mcg tablet 75 mcg PO DAILY@0600 05/29/24 08/26/24 08/26/24 History torsemide 20 mg tablet 40 mg PO BID 08/26/24 08/26/24 08/26/24 History warfarin 5 mg tablet 2.5 mg PO DAILY@1800 08/26/24 08/26/24 08/25/24 History Physical Exam Vital Signs: Vital Signs: Last Vital Signs Temp 98.1 F 08/29/24 07:45 Pulse 70 08/29/24 08:01 Resp 20 08/29/24 08:01 BP 91/57 L 08/29/24 07:45 Pulse Ox 96 08/29/24 07:45 O2 Del Method Room Air 08/29/24 07:45 O2 Flow Rate 1 08/29/24 02:55 BMI result Body Mass Index 32.2 Const: General: cooperative, comfortable, alert, awake and tired appearing Nutritional Appearance: obese Orientation/consciousness: patient oriented x3 HEENT: Head: Yes normocephalic and Yes atraumatic Neck: Neck: Yes trachea midline, Yes supple and Yes JVD Resp: Effort & Inspection: decreased respiratory effort Auscultation: no rhonchi, no wheezes and diminished lung sounds Cardio: Jugular venous distension: JVD Rhythm: abnormal rhythm irregularly irregular Heart sounds: S1 normal heart sound present, S2 normal heart sound present, no click, no gallops and no murmurs GI: Auscultation: normal bowel sounds Skin: General skin exam: no rashes or lesions noted Neuro: General: patient oriented x3 and no focal motor deficits Extrem: General: No clubbing, No cyanosis and Yes edema Objective Labs and Meds 08/27/24 05:35 08/28/24 08:51 Lab results: Laboratory Results - last 24 hr 08/29/24 06:11 PT 26.1 H D INR 2.2 H Assessment and Plan (1) Afib: Status: Acute Atrial fibrillation which appears to be persistent question chronic. Patient was not aware of this history. She was not even aware that she has atrial fibrillation. At this point time I would continue to avoid any rate lowering medication. She had 1 episode of slow heart rate overall otherwise heart rate in the 70s and 80s. No pacemaker therapy is required at this point time. Would suggest to continue warfarin therapy with target INR between 2 and 3. (2) (HFpEF) heart failure with preserved ejection fraction: Status: Acute Heart failure preserved ejection fraction, clinically still appears to be fluid overloaded. Although multiple comorbidities including atrial fibrillation, advanced age, advanced chronic kidney disease, overall poor functional status, mildly anemia with low blood pressure. Gentle diuresis with Lasix 20 mg IV push b.i.d.. Strict intake and output chart needs to be pursued. Continue monitor renal function. Overall prognosis is guarded. Will follow with you. Thank you for allowing me to partake in her care Procedures Date of Service Date of Service: 08/29/24
[2024-08-29] MEDS: Furosemide 20 MG/2 ML VIAL IVPUSH (10:34)
--- NOTE | 2024-08-29 10:37 | P.PNNP_ITS ---
Subjective Subjective Date of Service: 08/29/24 Interval history: seen and examined d/w medical attending no complaints Physical Exam 2 Vital Signs: Vital Signs: Last Vital Signs Temp 98.1 F 08/29/24 07:45 Pulse 70 08/29/24 08:01 Resp 20 08/29/24 08:01 BP 110/57 L 08/29/24 10:34 Pulse Ox 96 08/29/24 07:45 O2 Del Method Room Air 08/29/24 07:45 O2 Flow Rate 1 08/29/24 02:55 BMI result Body Mass Index 32.2 Const: General: alert and awake HEENT: Head: Yes normocephalic and Yes atraumatic Neck: Neck: Yes supple Resp: Auscultation: clear to auscultation bilaterally Cardio: Heart sounds: S1 normal heart sound present GI: Palpation (GI): Soft to palpation and nontender Extrem: General: Yes edema Objective Data Labs 08/27/24 05:35 08/28/24 08:51 Labs: Laboratory Results - last 24 hr 08/29/24 06:11 PT 26.1 H D INR 2.2 H Microbiology Microbiology Results: Microbiology 08/26/24 15:32 Blood - Venous Blood Culture - Preliminary No growth after 48 hours. 08/26/24 15:32 Blood - Venous Blood Culture - Preliminary No growth after 48 hours. Procedures Date of Service Date of Service: 08/29/24 Assessment & Plan Assessment and plan (1) JEN (acute kidney injury): Status: Resolved (2) (HFpEF) heart failure with preserved ejection fraction: Status: Acute (3) CKD (chronic kidney disease) stage 3, GFR 30-59 ml/min: Status: Acute Plan Scr better multifactorial JEN: -cardio renal syndrome -renal hypoperfusion due to hypotension benign urine sediment known CKD baseline Scr ~ 1.5 mg/dl h/o HFpEF volume status up REC furosemide gtt 5 mg/hr midodrine if BP low monitor urine output follow kidney function and electrolytes Time Spent With Patient Time: Total time managing care of this patient today ____ minutes. Progress Note: Quality Stroke Does the patient have a stroke diagnosis?: No
[2024-08-29] MEDS: Furosemide 200 MG in 0.9 % Sodium Chloride 80 ML IVCONT (11:33)
--- NOTE | 2024-08-29 15:01 | HO.PM.IMPN ---
Subjective Subjective Date of Service: 08/29/24 Interval History: chf ckd Review of Systems no pauses overnight feels some sob with excersion no fevers Physical Exam Vital Signs: Vital Signs: Last Vital Signs Temp 97.2 F 08/29/24 11:23 Pulse 78 08/29/24 11:23 Resp 20 08/29/24 11:23 BP 103/59 L 08/29/24 11:33 Pulse Ox 97 08/29/24 11:23 O2 Del Method Room Air 08/29/24 11:23 O2 Flow Rate 1 08/29/24 11:23 BMI result Body Mass Index 32.2 Appearance: Alert.? Oriented X3.? cvs: rrr, [id number]. res: clear to auscultation. abd:soft ,nt, bs present. ext pulses present , no cyanosis has lymphedema lower legs neuro: axo3 , nonfocal. Objective Data Active Medications Acetaminophen (Acetaminophen 325 Mg Tablet) 650 mg PO Q6H PRN PRN Reason: Pain, Mild 1-3,fever,headache Last Admin: 08/29/24 08:24 Dose: 650 mg Documented By: DANIA Albuterol Sulfate (Albuterol Sulfate (0.083%) 2.5 Mg/3 Ml Vial.Neb) 2.5 mg INHALE Q4H PRN PRN Reason: Shortness Of Breath Atropine Sulfate (Atropine Sulfate 1 Mg/10 Ml Syringe) 0.5 mg IVPUSH ONCE PRN PRN Reason: bradycardia Calcium Carbonate (Calcium Carbonate 750 Mg Tab.Chew) 750 mg PO Q4H PRN PRN Reason: Heartburn Cyanocobalamin (Cyanocobalamin (Vitamin B-12) 1,000 Mcg Tablet) 1,000 mcg PO DAILY [facility] Last Admin: 08/29/24 08:24 Dose: 1,000 mcg Documented By: DANIA Fluticasone/Umeclidinium/Vilanterol (Fluticasone/Umeclidinium/Vilanterol 100/62.5/25 Blst.W.Dev) 1 puff INHALE RDAILY [facility] Last Admin: 08/29/24 08:00 Dose: 1 puff Documented By: JEFF Furosemide 200 mg/ Sodium (Chloride) 100 mls @ 2.5 mls/hr IVCONT .Q24H [facility] Last Admin: 08/29/24 11:33 Dose: 5 mg/hr, 2.5 mls/hr Documented By: DANIA Levothyroxine Sodium (Levothyroxine Sodium 75 Mcg Tablet) 75 mcg PO DAILY@0600 [facility] Last Admin: 08/29/24 06:03 Dose: 75 mcg Documented By: LOKESH Loratadine (Loratadine 10 Mg Tablet) 10 mg PO DAILY [facility] Last Admin: 08/29/24 08:24 Dose: 10 mg Documented By: ANASTASIAING Magnesium Hydroxide (Milk Of Magnesia 30 Ml Oral.Susp) 30 ml PO DAILY PRN PRN Reason: Constipation Melatonin (Melatonin 3 Mg Tablet) 6 mg PO BEDTIME PRN PRN Reason: Insomnia Montelukast Sodium (Montelukast Sodium 10 Mg Tablet) 10 mg PO DAILY [facility] Last Admin: 08/29/24 08:24 Dose: 10 mg Documented By: DANIA Omeprazole (Omeprazole 20 Mg Capsule.Dr) 20 mg PO DAILY@0630 [facility] Last Admin: 08/29/24 06:03 Dose: 20 mg Documented By: LOKESH Sodium Chloride (0.9 % Sodium Chloride Flush 3 Ml Syringe) 3 ml IVFLUSH QSHIFT [facility] Last Admin: 08/29/24 08:23 Dose: 3 ml Documented By: DANIA Vitamin D (Cholecalciferol (Vitamin D3) 25 Mcg Tablet) 50 mcg PO DAILY [facility] Last Admin: 08/29/24 08:23 Dose: 50 mcg Documented By: DANIA Warfarin Sodium (Warfarin Sodium 2.5 Mg Tablet) 2.5 mg PO DAILY@1800 [facility] Labs 08/27/24 05:35 08/28/24 08:51 Labs: Laboratory Results - last 24 hr 08/29/24 06:11 PT 26.1 H D INR 2.2 H Microbiology Microbiology Results: Microbiology 08/26/24 15:32 Blood Culture - Preliminary Blood - Venous No growth after 48 hours. 08/26/24 15:32 Blood Culture - Preliminary Blood - Venous No growth after 48 hours. Assessment and Plan (1) Afib: Status: Acute (2) Sinus pause: Status: Acute Assessment and Plan: 84-year-old Indonesian-speaking female with history of chronic atrial fibrillation on Coumadin, obesity, chronic diastolic CHF, CKD 3, hypothyroidism, chronic lymphedema, moderate persistent asthma who was sent to the emergency department after visiting urgent care provider found her to be hypotensive at home and vitals showed hypothermia in the ED. Hypothermia -unclear etiology, resolved. TSH normal, radom cortisol levels seems fine. UA negative, blood cultures neg. no clear other source of infection idenified received empiric hydrocortisone in ED on admission will continue to moniter ALKA on CKD3 ?cardiorenal pt reporting sob; cxr c/w CHF; no hypoxia received IV lasix in ED d/w nephro and cardiology- added iv alsix ,moniter bmp closely. Acute on Chronic HFpEF hold further diuresis as above SIRS does meet sirs criteria with hypothermia and white count <4 hypotermia seems to be resolved. no obvious source of infection at this time; UA negative received empiric zosyn, will defer further abx for now lactic acid normal blood cultures negative. chronic b/l LE lymphedema legs do no appear infected received empiric abx in ED, will hold further abx for now wound care consult chronic atrial fibrillation had 4 sec pause on tele . INR supreatherapeutic ,hold warfarin. moderate persistent asthma :No acute exacerbation at this time Continue home medication hypothyroidism: Continue Synthroid morbid obesity BMI 32.2 Weight loss encouraged DVT prophylaxis-Lovenox ongoing need hospital for evaluation and management of hypothermia and acute on chronic CHF, alka and boderline bp- need close monitering for renal function/electrolytes and bp/hypothermia monitering. Quality Stroke Does the patient have a stroke diagnosis?: No VTE Prior VTE?: No VTE Risk Level:: Medical - moderate - high VTE Device Contraindication: Treatment Not Indicated VTE Drug Contraindication: N/A - Med Ordered
[2024-08-29 16:39] LABS: Glucose, Whole Blood 122 mg/dL (60-115)
[2024-08-29] MEDS: Warfarin Sodium 2.5 MG TABLET PO (17:23)
[2024-08-30] VITALS (10 sets, daily range): BP systolic 89–113; BP diastolic 58–76; PULSE 77–102; RESP 17–20; TEMP 36.1–37.1; O2SAT 92–112
[2024-08-30] MEDS: Levothyroxine Sodium 75 MCG TABLET PO (05:58)
[2024-08-30] MEDS: Omeprazole 20 MG CAPSULE.DR PO (05:58)
[2024-08-30 07:14] LABS: INTERNATIONAL NORM RATIO 1.7 (0.9-1.1); Prothrombin Time 19.7 SEC (10.9-12.4)
[2024-08-30] MEDS: Fluticasone/Umeclidinium/Vilanterol 100/62.5/25 BLST.W.DEV 1 PUFF INHALE (07:56)
[2024-08-30] MEDS: Montelukast Sodium 10 MG TABLET PO (08:48)
[2024-08-30] MEDS: Cholecalciferol (Vitamin D3) 25 MCG TABLET 50 MCG PO (08:48)
[2024-08-30] MEDS: Cyanocobalamin (Vitamin B-12) 1,000 MCG TABLET 1000 MCG PO (08:48)
[2024-08-30] MEDS: Loratadine 10 MG TABLET PO (08:48)
[2024-08-30] MEDS: 0.9 % Sodium Chloride Flush 3 ML SYRINGE IVFLUSH (08:51)
[2024-08-30 08:57] LABS: Anion Gap 11 (12-20); Blood Urea Nitrogen 33 mg/dL (9-16); Calcium 8.7 mg/dL (8.4-10.2); Carbon Dioxide 34 mmol/L (22-29); Chloride 103 mmol/L (96-108); Creatinine Clr Calc Pharmacy 28.1; Estimated Glomerular Filt Rate 33; Glucose Random 77 mg/dL (60-115); Potassium 4.2 mmol/L (3.3-5.1); Sodium 144 mmol/L (135-145)
[2024-08-30 09:09] LABS: B Type Natriuretic Peptide 399 pg/mL (<100)
--- NOTE | 2024-08-30 10:37 | PM.PNCARD ---
Subjective Subjective Date of Service: 08/30/24 Principal diagnosis: Decompensated congestive heart failure Interval history: Patient was put on Lasix drip and has had negative balance of 3 L. Doing well. Creatinine is improved. She is breathing better although still complains of shortness of breath at nighttime and lays down. Leg edema has improved. No significant slow heart rate Review of Systems Constitutional: Reports no additional constitutional complaints Eyes: Reports no additional eye complaints Cardiovascular: Denies chest pain, Reports leg edema, Denies lightheadedness, Denies Loss of Consciousness, Denies palpitations and Reports orthopnea Respiratory: Reports no additional respiratory complaints Gastrointestinal: Reports no additional gastrointestinal complaints Musculoskeletal: Reports no additional musculoskeletal complaints Reports system reviewed and no additional complaints, except as documented Psychiatric: Reports no additional psychiatric complaints Endocrine: Reports no additional endocrine complaints and Denies palpitations Physical Exam Vital Signs: Last Vital Signs Temp 97.6 F 08/30/24 07:59 Pulse 95 08/30/24 07:59 Resp 20 08/30/24 07:59 BP 104/59 L 08/30/24 07:59 Pulse Ox 96 08/30/24 07:59 O2 Del Method Nasal Cannula 08/30/24 07:59 O2 Flow Rate 1 08/30/24 07:59 BMI result Body Mass Index 32.2 Const General: cooperative, comfortable, alert, awake and tired appearing Nutritional Appearance: obese Orientation/consciousness: patient oriented x3 HEENT Head: Yes normocephalic and Yes atraumatic Neck Neck: Yes trachea midline, Yes supple and Yes JVD Resp Effort & Inspection: decreased respiratory effort Auscultation: no rhonchi, no wheezes and diminished lung sounds Cardio Jugular venous distension: JVD Rhythm: abnormal rhythm irregularly irregular Heart sounds: S1 normal heart sound present, S2 normal heart sound present, no click, no gallops and no murmurs GI Auscultation: normal bowel sounds Skin General skin exam: no rashes or lesions noted Neuro General: patient oriented x3 and no focal motor deficits Extrem General: No clubbing, No cyanosis and Yes edema Objective Labs and Meds 08/27/24 05:35 08/30/24 08:08 Lab results: Laboratory Results - last 24 hr 08/29/24 08/30/24 08/30/24 16:26 06:46 08:08 Hold Purple Top SEE NOTE PT 19.7 H D INR 1.7 H Sodium 144 Potassium 4.2 Chloride 103 Carbon Dioxide 34 H Anion Gap 11 L BUN 33 H Creatinine 1.51 H Estim Creat Clear Calc 28.1 Estimated GFR 33 POC Glucose 122 H Random Glucose 77 Calcium 8.7 B-Natriuretic Peptide 399 H Progress Note: A&P Assessment and plan (1) Decompensated heart failure: Status: Acute Assessment and Plan: Decompensated congestive heart failure in this elderly woman which is gradually improving IV Lasix drip. She was doing better with improving renal function. Continue IV diuresis as still appears to be fluid overloaded. Continue monitor intake and output chart. Continue monitor renal function. Clinically doing well, blood pressures improved as well. Continue to follow. Consider Jardiance 10 mg to her regimen. (2) Afib: Status: Acute Assessment and Plan: Atrial fibrillation adequate rate control without any significant bradycardia. At this point time does not require rate-controlling therapy. Currently on full oral anticoagulation warfarin. Continue the same. Target INR between 2 and 3. Will continue to follow with you Time Spent With Patient Time: Total time managing care of this patient today ____ minutes. Progress Note: Quality Stroke Does the patient have a stroke diagnosis?: No Procedures Date of Service Date of Service: 08/30/24
[2024-08-30] MEDS: Furosemide 200 MG in 0.9 % Sodium Chloride 80 ML IVCONT (11:42)
--- NOTE | 2024-08-30 11:46 | MHC.CM.PN ---
Per MD rounds Patient is not medically cleared to discharge. Patient needs monitoring of JEN, Lytes, BP and HF. DP home resume [employer] INVE[employer]IGATOR services. Patient will require BLS home at discharge.
--- NOTE | 2024-08-30 17:18 | HO.PM.IMPN ---
Subjective Subjective Date of Service: 08/30/24 Interval History: chf ckd Review of Systems feels some sob with excersion no fevers Physical Exam Vital Signs: Vital Signs: Last Vital Signs Temp 98.0 F 08/30/24 15:18 Pulse 99 08/30/24 15:18 Resp 18 08/30/24 15:18 BP 113/69 08/30/24 15:18 Pulse Ox 95 08/30/24 15:18 O2 Del Method Room Air 08/30/24 15:18 O2 Flow Rate 1 08/30/24 07:59 BMI result Body Mass Index 32.2 Appearance: Alert.? Oriented X3.? cvs: rrr, [id number]. res: clear to auscultation. abd:soft ,nt, bs present. ext pulses present , no cyanosis has lymphedema lower legs neuro: axo3 , nonfocal. Objective Data Active Medications Acetaminophen (Acetaminophen 325 Mg Tablet) 650 mg PO Q6H PRN PRN Reason: Pain, Mild 1-3,fever,headache Last Admin: 08/29/24 08:24 Dose: 650 mg Documented By: DANIA Albuterol Sulfate (Albuterol Sulfate (0.083%) 2.5 Mg/3 Ml Vial.Neb) 2.5 mg INHALE Q4H PRN PRN Reason: Shortness Of Breath Atropine Sulfate (Atropine Sulfate 1 Mg/10 Ml Syringe) 0.5 mg IVPUSH ONCE PRN PRN Reason: bradycardia Calcium Carbonate (Calcium Carbonate 750 Mg Tab.Chew) 750 mg PO Q4H PRN PRN Reason: Heartburn Cyanocobalamin (Cyanocobalamin (Vitamin B-12) 1,000 Mcg Tablet) 1,000 mcg PO DAILY [facility] Last Admin: 08/30/24 08:48 Dose: 1,000 mcg Documented By: MAREN Fluticasone/Umeclidinium/Vilanterol (Fluticasone/Umeclidinium/Vilanterol 100/62.5/25 Blst.W.Dev) 1 puff INHALE RDAILY [facility] Last Admin: 08/30/24 07:56 Dose: 1 puff Documented By: HAYLEY Furosemide 200 mg/ Sodium (Chloride) 100 mls @ 2.5 mls/hr IVCONT .Q24H [facility] Last Admin: 08/30/24 11:42 Dose: 5 mg/hr, 2.5 mls/hr Documented By: [place] Levothyroxine Sodium (Levothyroxine Sodium 75 Mcg Tablet) 75 mcg PO DAILY@0600 [facility] Last Admin: 08/30/24 05:58 Dose: 75 mcg Documented By: JERONIMO Loratadine (Loratadine 10 Mg Tablet) 10 mg PO DAILY [facility] Last Admin: 08/30/24 08:48 Dose: 10 mg Documented By: MAREN Magnesium Hydroxide (Milk Of Magnesia 30 Ml Oral.Susp) 30 ml PO DAILY PRN PRN Reason: Constipation Melatonin (Melatonin 3 Mg Tablet) 6 mg PO BEDTIME PRN PRN Reason: Insomnia Montelukast Sodium (Montelukast Sodium 10 Mg Tablet) 10 mg PO DAILY [facility] Last Admin: 08/30/24 08:48 Dose: 10 mg Documented By: MAREN Omeprazole (Omeprazole 20 Mg Capsule.Dr) 20 mg PO DAILY@0630 [facility] Last Admin: 08/30/24 05:58 Dose: 20 mg Documented By: JERONIMO Sodium Chloride (0.9 % Sodium Chloride Flush 3 Ml Syringe) [facility] Last Admin: 08/30/24 08:51 Dose: 3 ml Documented By: MAREN Vitamin D (Cholecalciferol (Vitamin D3) 25 Mcg Tablet) 50 mcg PO DAILY [facility] Last Admin: 08/30/24 08:48 Dose: 50 mcg Documented By: MAREN Warfarin Sodium (Warfarin Sodium 3 Mg Tablet) 3 mg PO DAILY@1800 [facility] Labs 08/27/24 05:35 08/30/24 08:08 Labs: Laboratory Results - last 24 hr 08/30/24 08/30/24 06:46 08:08 Hold Purple Top SEE NOTE PT 19.7 H D INR 1.7 H Anion Gap 11 L Estim Creat Clear Calc 28.1 Estimated GFR 33 Random Glucose 77 Calcium 8.7 B-Natriuretic Peptide 399 H Assessment and Plan (1) Decompensated heart failure: Status: Acute (2) Afib: Status: Acute (3) Sinus pause: Status: Acute Assessment and Plan: 84-year-old Hebrew-speaking female with history of chronic atrial fibrillation on Coumadin, obesity, chronic diastolic CHF, CKD 3, hypothyroidism, chronic lymphedema, moderate persistent asthma who was sent to the emergency department after visiting urgent care provider found her to be hypotensive at home and vitals showed hypothermia in the ED. Hypothermia -unclear etiology, resolved. TSH normal, radom cortisol levels seems fine. UA negative, blood cultures neg. no clear other source of infection idenified received empiric hydrocortisone in ED on admission will continue to moniter ALKA on CKD3 ?cardiorenal pt reporting sob; cxr c/w CHF; no hypoxia d/w nephro and cardiology- iv alsix drip,soafar 4 liter negative ,moniter bmp closely. Acute on Chronic HFpEF hold further diuresis as above SIRS does meet sirs criteria with hypothermia and white count <4 hypotermia seems to be resolved. no obvious source of infection at this time; UA negative received empiric zosyn, will defer further abx for now lactic acid normal blood cultures negative. chronic b/l LE lymphedema legs do no appear infected received empiric abx in ED, will hold further abx for now wound care consult chronic atrial fibrillation had 4 sec pause on tele . INR subatherapeutic ,adjusted warfarin 3mg. moderate persistent asthma :No acute exacerbation at this time Continue home medication hypothyroidism: Continue Synthroid morbid obesity BMI 32.2 Weight loss encouraged DVT prophylaxis-Lovenox ongoing need hospital for evaluation and management of hypothermia and acute on chronic CHF, alka and boderline bp- need close monitering for renal function/electrolytes and bp/hypothermia monitering. Quality Stroke Does the patient have a stroke diagnosis?: No VTE Prior VTE?: No VTE Risk Level:: Medical - moderate - high VTE Device Contraindication: Treatment Not Indicated VTE Drug Contraindication: N/A - Med Ordered
[2024-08-30] MEDS: Warfarin Sodium 3 MG TABLET PO (17:46)
[2024-08-31] VITALS (8 sets, daily range): BP systolic 94–128; BP diastolic 54–82; PULSE 76–124; RESP 16–20; TEMP 36.2–36.7; O2SAT 92–96
[2024-08-31] MEDS: Levothyroxine Sodium 75 MCG TABLET PO (03:58)
[2024-08-31] MEDS: Midodrine HCl 10 MG TABLET PO (03:58)
[2024-08-31] MEDS: Omeprazole 20 MG CAPSULE.DR PO (03:58)
--- NOTE | 2024-08-31 04:50 | PC.NURSE ---
patient in afib ranging in 90s- low to mid 100s. intermittently spiking into the 120-140s throughout the night, Gerardo SAUCEDA aware. Ordered IV push cardizem, however BP was 97/71 at this time. Per Gerardo SAUCEDA, hold on IV cardizem and to give PO midodrine. Patient asymptomatic at this time. Midodrine given. Plan ongoing.
[2024-08-31 07:48] LABS: INTERNATIONAL NORM RATIO 1.5 (0.9-1.1); Prothrombin Time 17.8 SEC (10.9-12.4)
[2024-08-31] MEDS: Fluticasone/Umeclidinium/Vilanterol 100/62.5/25 BLST.W.DEV 1 PUFF INHALE (08:35)
[2024-08-31 09:15] LABS: Anion Gap 11 (12-20); Blood Urea Nitrogen 33 mg/dL (9-16); Calcium 8.8 mg/dL (8.4-10.2); Carbon Dioxide 36 mmol/L (22-29); Chloride 100 mmol/L (96-108); Creatinine Clr Calc Pharmacy 29.3; Estimated Glomerular Filt Rate 34; Glucose Random 67 mg/dL (60-115); Potassium 4.3 mmol/L (3.3-5.1); Sodium 143 mmol/L (135-145)
[2024-08-31 09:19] LABS: B Type Natriuretic Peptide 297 pg/mL (<100)
[2024-08-31] MEDS: Metoprolol Tartrate 5 MG/5 ML VIAL 2.5 MG IVPUSH (10:10)
[2024-08-31] MEDS: Montelukast Sodium 10 MG TABLET PO (10:10)
[2024-08-31] MEDS: Loratadine 10 MG TABLET PO (10:10)
[2024-08-31] MEDS: Cholecalciferol (Vitamin D3) 25 MCG TABLET 50 MCG PO (10:10)
[2024-08-31] MEDS: 0.9 % Sodium Chloride Flush 3 ML SYRINGE IVFLUSH ×2 (10:10→16:29)
[2024-08-31] MEDS: Cyanocobalamin (Vitamin B-12) 1,000 MCG TABLET 1000 MCG PO (10:10)
--- NOTE | 2024-08-31 11:37 | PM.PNCARD ---
Subjective Subjective Date of Service: 08/31/24 Principal diagnosis: Decompensated congestive heart failure Interval history: Patient was diuresed well again a-2800 cc. Feeling better shortness of breath improving. Leg edema is improved. This morning while straining at bowel movement had rapid heart rate. She declined having any symptoms at that point in time. Creatinine is marginally improved Review of Systems Constitutional: Reports no additional constitutional complaints Cardiovascular: Denies chest pain, Denies lightheadedness, Denies Loss of Consciousness, Denies palpitations and Reports dyspnea on exertion Respiratory: Reports dyspnea on exertion Gastrointestinal: Reports no additional gastrointestinal complaints Genitourinary: Reports no additional female genitourinary complaints Endocrine: Denies palpitations Physical Exam Vital Signs: Last Vital Signs Temp 97.8 F 08/31/24 07:59 Pulse 81 08/31/24 08:37 Resp 17 08/31/24 08:37 BP 106/72 08/31/24 07:59 Pulse Ox 94 08/31/24 07:59 O2 Del Method Nasal Cannula 08/31/24 07:59 O2 Flow Rate 1 08/31/24 07:59 BMI result Body Mass Index 32.2 Const General: cooperative, comfortable, alert, awake and tired appearing Nutritional Appearance: obese Orientation/consciousness: patient oriented x3 HEENT Head: Yes normocephalic and Yes atraumatic Neck Neck: Yes trachea midline, Yes supple and Yes JVD Resp Effort & Inspection: decreased respiratory effort Auscultation: no rhonchi, no wheezes and diminished lung sounds Cardio Jugular venous distension: JVD Rhythm: abnormal rhythm irregularly irregular Heart sounds: S1 normal heart sound present, S2 normal heart sound present, no click, no gallops and no murmurs GI Auscultation: normal bowel sounds Skin General skin exam: no rashes or lesions noted Neuro General: patient oriented x3 and no focal motor deficits Extrem General: No clubbing, No cyanosis and Yes edema Objective Labs and Meds 08/27/24 05:35 08/31/24 08:12 Lab results: Laboratory Results - last 24 hr 08/31/24 08/31/24 07:22 08:12 Hold Purple Top SEE NOTE PT 17.8 H INR 1.5 H Sodium 143 Potassium 4.3 Chloride 100 Carbon Dioxide 36 H Anion Gap 11 L BUN 33 H Creatinine 1.45 H Estim Creat Clear Calc 29.3 Estimated GFR 34 Random Glucose 67 Calcium 8.8 B-Natriuretic Peptide 297 H Progress Note: A&P Assessment and plan (1) Decompensated heart failure: Status: Acute Assessment and Plan: Decompensated heart failure which is gradually improved with diuresis. Continue 1 more day of IV Lasix therapy with drip. Continue to monitor blood pressure regularly. Continue monitor renal function. Strict intake and output chart needs to be pursued. Replace electrolytes as needed. Check BNP tomorrow. Rate control with atrial fibrillation. Add Jardiance 10 mg to regimen. Once adequately diuresed overnight and numbers look better will switch her to oral diuretics most likely Bumex 1 mg b.i.d.. (2) Afib: Status: Acute Assessment and Plan: Atrial fibrillation with slightly rapid ventricular response which lasted short time while she was straining at a bowel movement. Low-dose beta-priyanka 12.5 mg b.i.d. will be added to her regimen. Continue full oral anticoagulation warfarin. Will follow with you Time Spent With Patient Time: Total time managing care of this patient today ____ minutes. Progress Note: Quality Stroke Does the patient have a stroke diagnosis?: No Procedures Date of Service Date of Service: 08/31/24
[2024-08-31] MEDS: Metoprolol Tartrate 12.5 MG HALFTAB PO ×2 (12:22→20:47)
[2024-08-31] MEDS: Furosemide 200 MG in 0.9 % Sodium Chloride 80 ML IVCONT (12:26)
--- NOTE | 2024-08-31 12:47 | HO.PM.IMPN ---
Subjective Subjective Date of Service: 08/31/24 Interval History: chf , afib with rvr Review of Systems sob improving hr went 130-150 -denies any chest pain or palpatation Physical Exam Vital Signs: Vital Signs: Last Vital Signs Temp 97.4 F 08/31/24 11:39 Pulse 76 08/31/24 11:39 Resp 20 08/31/24 11:39 BP 112/74 08/31/24 11:39 Pulse Ox 94 08/31/24 11:39 O2 Del Method Nasal Cannula 08/31/24 11:39 O2 Flow Rate 1 08/31/24 11:39 BMI result Body Mass Index 32.2 Appearance: Alert.? Oriented X3.? cvs: rrr, [id number]. res: clear to auscultation. abd:soft ,nt, bs present. ext pulses present , no cyanosis has lymphedema lower legs neuro: axo3 , nonfocal. Objective Data Active Medications Acetaminophen (Acetaminophen 325 Mg Tablet) 650 mg PO Q6H PRN PRN Reason: Pain, Mild 1-3,fever,headache Last Admin: 08/29/24 08:24 Dose: 650 mg Documented By: DANIA Albuterol Sulfate (Albuterol Sulfate (0.083%) 2.5 Mg/3 Ml Vial.Neb) 2.5 mg INHALE Q4H PRN PRN Reason: Shortness Of Breath Atropine Sulfate (Atropine Sulfate 1 Mg/10 Ml Syringe) 0.5 mg IVPUSH ONCE PRN PRN Reason: bradycardia Calcium Carbonate (Calcium Carbonate 750 Mg Tab.Chew) 750 mg PO Q4H PRN PRN Reason: Heartburn Cyanocobalamin (Cyanocobalamin (Vitamin B-12) 1,000 Mcg Tablet) 1,000 mcg PO DAILY [facility] Last Admin: 08/31/24 10:10 Dose: 1,000 mcg Documented By: CLARIBEL Fluticasone/Umeclidinium/Vilanterol (Fluticasone/Umeclidinium/Vilanterol 100/62.5/25 Blst.W.Dev) 1 puff INHALE RDAILY [facility] Last Admin: 08/31/24 08:35 Dose: 1 puff Documented By: HECTOR Furosemide 200 mg/ Sodium (Chloride) 100 mls @ 2.5 mls/hr IVCONT .Q24H [facility] Last Admin: 08/31/24 12:26 Dose: 5 mg/hr, 2.5 mls/hr Documented By: CLARIBEL Levothyroxine Sodium (Levothyroxine Sodium 75 Mcg Tablet) 75 mcg PO DAILY@0600 [facility] Last Admin: 08/31/24 03:58 Dose: 75 mcg Documented By: JAIRO Loratadine (Loratadine 10 Mg Tablet) 10 mg PO DAILY [facility] Last Admin: 08/31/24 10:10 Dose: 10 mg Documented By: CLARIBEL Magnesium Hydroxide (Milk Of Magnesia 30 Ml Oral.Susp) 30 ml PO DAILY PRN PRN Reason: Constipation Melatonin (Melatonin 3 Mg Tablet) 6 mg PO BEDTIME PRN PRN Reason: Insomnia Metoprolol Tartrate (Metoprolol Tartrate 12.5 Mg Halftab) 12.5 mg PO BID [facility]; Protocol Last Admin: 08/31/24 12:22 Dose: 12.5 mg Documented By: CLARIBEL Montelukast Sodium (Montelukast Sodium 10 Mg Tablet) 10 mg PO DAILY [facility] Last Admin: 08/31/24 10:10 Dose: 10 mg Documented By: CLARIBEL Omeprazole (Omeprazole 20 Mg Capsule.Dr) 20 mg PO DAILY@0630 [facility] Last Admin: 08/31/24 03:58 Dose: 20 mg Documented By: JAIRO Sodium Chloride (0.9 % Sodium Chloride Flush 3 Ml Syringe) 3 ml IVFLUSH QSHIFT [facility] Last Admin: 08/31/24 10:10 Dose: 3 ml Documented By: CLARIBEL Vitamin D (Cholecalciferol (Vitamin D3) 25 Mcg Tablet) 50 mcg PO DAILY [facility] Last Admin: 08/31/24 10:10 Dose: 50 mcg Documented By: CLARIBEL Warfarin Sodium (Warfarin Sodium 3 Mg Tablet) 3 mg PO DAILY@1800 [facility] Last Admin: 08/30/24 17:46 Dose: 3 mg Documented By: [place] [facility] 08/27/24 05:35 08/31/24 08:12 Labs: Laboratory Results - last 24 hr 08/31/24 08/31/24 07:22 08:12 Hold Purple Top SEE NOTE PT 17.8 H INR 1.5 H Anion Gap 11 L Estim Creat Clear Calc 29.3 Estimated GFR 34 Random Glucose 67 Calcium 8.8 B-Natriuretic Peptide 297 H Assessment and Plan (1) Decompensated heart failure: Status: Acute (2) Afib: Status: Acute Assessment and Plan: 84-year-old [place]er-speaking female with history of chronic atrial fibrillation on Coumadin, obesity, chronic diastolic CHF, CKD 3, hypothyroidism, chronic lymphedema, moderate persistent asthma who was sent to the emergency department after visiting urgent care provider found her to be hypotensive at home and vitals showed hypothermia in the ED. Hypothermia -unclear etiology, resolved. TSH normal, radom cortisol levels seems fine. UA negative, blood cultures neg. no clear other source of infection idenified received empiric hydrocortisone in ED on admission will continue to moniter ALKA on CKD3 ?cardiorenal pt reporting sob; cxr c/w CHF; no hypoxia d/w nephro and cardiology- iv alsix drip,soafar 6.3 liter negative ,moniter bmp closely. Acute on Chronic HFpEF further diuresis as above SIRS does meet sirs criteria with hypothermia and white count <4 hypotermia seems to be resolved. no obvious source of infection at this time; UA negative received empiric zosyn, will defer further abx for now lactic acid normal blood cultures negative. chronic b/l LE lymphedema legs do no appear infected received empiric abx in ED, will hold further abx for now wound care consult chronic atrial fibrillation-has afib with rvr has 4 sec pause few days back. given iv metoprolol , added po metoprolol 12.5 mg bid INR subatherapeutic ,adjusted warfarin 3mg. cardiology following moderate persistent asthma :No acute exacerbation at this time Continue home medication hypothyroidism: Continue Synthroid morbid obesity BMI 32.2 Weight loss encouraged sacrum right: stage 2 Pressure Injury POA Turn and Reposition every 2 hours and as needed for patient comfort.? Use pillows or wedges to support off loading positions. Off Load all bony prominences with use of pillows and heel boots if needed.? Apply Preventative foams where needed. ? Monitor for incontinence and moisture control, use barrier creams when needed for prevention and treatment. Provide adequate and supplemental nutrition.? Continue low air loss mattress. When applicable maintain blood glucose levels per Providers order. Bilateral Lower Legs - Elevate lower legs off of surface of bed with use of pillows.? Cleanse with Denisha Lowden, Pat dry.? Apply barrier cream to periwound. Apply layer of Durafiber to open wound beds secure with ABD pad, gauze wrap and tape.? Change every other day. continue to follow up outpt with wound clinic. Medihoney was used for todays dressing. Recommend Durfiber Ag if available if not may continue with Medihoney gel and dry ABD gauze dressing Sacrum - Off Load Pressure with Q2 hr turns and use of pillows - Cleanse with PH balance spray or wipes, pat dry. ?Apply thin layer of Triad to wound bed - only pat and dab no scrub and rub when soiling occurs. Reapply thin layer PRN after each episode of incontinence. DVT prophylaxis-Lovenox ongoing need hospital for evaluation and management of hypothermia and acute on chronic CHF, alka and boderline bp- need close monitering for renal function/electrolytes and bp/hypothermia monitering. Quality Stroke Does the patient have a stroke diagnosis?: No VTE Prior VTE?: No VTE Risk Level:: Medical - moderate - high VTE Device Contraindication: Treatment Not Indicated VTE Drug Contraindication: N/A - Med Ordered
[2024-08-31] MEDS: ondansetron HCL 4 MG/2 ML VIAL IVPUSH (16:30)
[2024-08-31] MEDS: Warfarin Sodium 0.5 MG HALFTAB PO (18:06)
[2024-08-31] MEDS: Warfarin Sodium 3 MG TABLET PO (18:06)
[2024-09-01] VITALS (19 sets, daily range): BP systolic 84–104; BP diastolic 46–56; PULSE 73–128; RESP 13–27; TEMP 36.8–38.2; O2SAT 90–98
[2024-09-01] MEDS: Levothyroxine Sodium 75 MCG TABLET PO (04:46)
[2024-09-01] MEDS: Omeprazole 20 MG CAPSULE.DR PO (04:46)
[2024-09-01] MEDS: Midodrine HCl 10 MG TABLET PO (04:46)
[2024-09-01 07:22] LABS: INTERNATIONAL NORM RATIO 1.6 (0.9-1.1); Prothrombin Time 18.2 SEC (10.9-12.4)
[2024-09-01] MEDS: Fluticasone/Umeclidinium/Vilanterol 100/62.5/25 BLST.W.DEV 1 PUFF INHALE (07:52)
--- NOTE | 2024-09-01 09:03 | PC.NURSE ---
Addendum entered by Lorenzo Cox RN 09/01/24 17:06: bladder scanned for 30cc Addendum entered by Lorenzo Cox RN 09/01/24 16:18: Pt difficult to awaken and stay awaken with sternal rub. [facility] was called. Pt then woke up and followed commands but then fell back asleep. RT placing pt on Bipap per MD walton and multimedia engineer order. Family updated by MD at bedside. MD informed of pt's vitals Original Note: messaged - Josuha Roldan - SBP LUE 101, SBP RUE 81. Temp 100.7, this is the first febrile temp I can see in her chart
[2024-09-01 09:18] LABS: Anion Gap 15 (12-20); Blood Urea Nitrogen 41 mg/dL (9-16); Calcium 8.4 mg/dL (8.4-10.2); Carbon Dioxide 34 mmol/L (22-29); Chloride 99 mmol/L (96-108); Creatinine Clr Calc Pharmacy 20.8; Estimated Glomerular Filt Rate 23; Glucose Random 69 mg/dL (60-115); Potassium 4.8 mmol/L (3.3-5.1); Sodium 143 mmol/L (135-145)
[2024-09-01] MEDS: Cholecalciferol (Vitamin D3) 25 MCG TABLET 50 MCG PO (10:08)
[2024-09-01] MEDS: Acetaminophen 325 MG TABLET 650 MG PO (10:08)
[2024-09-01] MEDS: Montelukast Sodium 10 MG TABLET PO (10:08)
[2024-09-01] MEDS: Cyanocobalamin (Vitamin B-12) 1,000 MCG TABLET 1000 MCG PO (10:08)
[2024-09-01] MEDS: Loratadine 10 MG TABLET PO (10:08)
[2024-09-01 10:24] LABS: Hematocrit 38.2 % (37.0-47.0); Hemoglobin 11.9 g/dl (12.0-16.0); Mean Corpuscular HGB Conc 31.2 g/dl (31.0-35.0); Mean Corpuscular Hemoglobin 29.5 pg (27.0-33.0); Mean Corpuscular Volume 94.8 fL (80.0-98.0); Mean Platelet Volume 10.8 fL (9.4-12.3); Platelet Count 153 X10*3/uL (160-400); Red Blood Count 4.03 X10*6/uL (4.20-5.50); White Blood Count 5.1 X10*3/uL (4.8-10.8)
--- NOTE | 2024-09-01 10:51 | P.PNIM_ITS ---
Subjective Subjective Date of Service: 09/01/24 Interval History: bodelrine bp Review of Systems 1 time low grade fever afib -110-120 range denies chest pain or palpatations has some sob ,nonproductive cough generalised weak ,somewhat sleepy Physical Exam 2 Vital Signs: Vital Signs: Last Vital Signs Temp 100.7 F H 09/01/24 08:00 Pulse 115 H 09/01/24 08:00 Resp 20 09/01/24 08:00 BP 101/55 L 09/01/24 08:00 Pulse Ox 98 09/01/24 08:00 O2 Del Method Nasal Cannula 09/01/24 08:00 O2 Flow Rate 1 09/01/24 08:00 BMI result Body Mass Index 32.2 Appearance: awake ,easily aurosable ,intermittent sleepy, weak cvs: irregular rythem, [id number]. res: air entry diminshed ,has few scattered rales abd:soft ,nt, bs present. ext pulses present , no cyanosis has lymphedema lower legs neuro: axo3 , nonfocal. Objective Data Active Medications Acetaminophen (Acetaminophen 325 Mg Tablet) 650 mg PO Q6H PRN PRN Reason: Pain, Mild 1-3,fever,headache Last Admin: 09/01/24 10:08 Dose: 650 mg Documented By: ANGELA Albuterol Sulfate (Albuterol Sulfate (0.083%) 2.5 Mg/3 Ml Vial.Neb) 2.5 mg INHALE Q4H PRN PRN Reason: Shortness Of Breath Atropine Sulfate (Atropine Sulfate 1 Mg/10 Ml Syringe) 0.5 mg IVPUSH ONCE PRN PRN Reason: bradycardia Calcium Carbonate (Calcium Carbonate 750 Mg Tab.Chew) 750 mg PO Q4H PRN PRN Reason: Heartburn Cyanocobalamin (Cyanocobalamin (Vitamin B-12) 1,000 Mcg Tablet) 1,000 mcg PO DAILY [facility] Last Admin: 09/01/24 10:08 Dose: 1,000 mcg Documented By: ANGELA Fluticasone/Umeclidinium/Vilanterol (Fluticasone/Umeclidinium/Vilanterol 100/62.5/25 Blst.W.Dev) 1 puff INHALE RDAILY [facility] Last Admin: 09/01/24 07:52 Dose: 1 puff Documented By: INESSA Levothyroxine Sodium (Levothyroxine Sodium 75 Mcg Tablet) 75 mcg PO DAILY@0600 [facility] Last Admin: 09/01/24 04:46 Dose: 75 mcg Documented By: EVELINA Loratadine (Loratadine 10 Mg Tablet) 10 mg PO DAILY [facility] Last Admin: 09/01/24 10:08 Dose: 10 mg Documented By: ANGELA Magnesium Hydroxide (Milk Of Magnesia 30 Ml Oral.Susp) 30 ml PO DAILY PRN PRN Reason: Constipation Melatonin (Melatonin 3 Mg Tablet) 6 mg PO BEDTIME PRN PRN Reason: Insomnia Metoprolol Tartrate (Metoprolol Tartrate 12.5 Mg Halftab) 12.5 mg PO BID [facility]; Protocol Last Admin: 09/01/24 07:25 Dose: Not Given Documented By: ANGELA Non-Admin Reason: low bp Montelukast Sodium (Montelukast Sodium 10 Mg Tablet) 10 mg PO DAILY [facility] Last Admin: 09/01/24 10:08 Dose: 10 mg Documented By: ANGELA Omeprazole (Omeprazole 20 Mg Capsule.Dr) 20 mg PO DAILY@0630 [facility] Last Admin: 09/01/24 04:46 Dose: 20 mg Documented By: EVELINA Sodium Chloride (0.9 % Sodium Chloride Flush 3 Ml Syringe) [facility] Last Admin: 09/01/24 07:25 Dose: Not Given Documented By: ANGELA Non-Admin Reason: Previously Administered Vitamin D (Cholecalciferol (Vitamin D3) 25 Mcg Tablet) 50 mcg PO DAILY [facility] Last Admin: 09/01/24 10:08 Dose: 50 mcg Documented By: ANGELA Warfarin Sodium (Warfarin Sodium 0.5 Mg Halftab) 0.5 mg PO DAILY@1800 [facility] Last Admin: 08/31/24 18:06 Dose: 0.5 mg Documented By: CLARIBEL Warfarin Sodium (Warfarin Sodium 3 Mg Tablet) 3 mg PO DAILY@1800 [facility] Last Admin: 08/31/24 18:06 Dose: 3 mg Documented By: CLARIBEL Labs 09/01/24 10:14 09/01/24 08:37 Labs: Laboratory Results - last 24 hr 09/01/24 09/01/24 09/01/24 06:46 08:37 10:14 MCV 94.8 MCH 29.5 MCHC 31.2 RDW 14.0 Plt Count 153 L MPV 10.8 Absolute Nucleated RBC 0.000 Nucleated RBC % (auto) 0.0 Hold Purple Top SEE NOTE PT 18.2 H INR 1.6 H Anion Gap 15 Estim Creat Clear Calc 20.8 Estimated GFR 23 Random Glucose 69 Calcium 8.4 Microbiology Microbiology Results: Microbiology 08/26/24 15:32 Blood Culture - Final Blood - Venous No growth after 5 days. 08/26/24 15:32 Blood Culture - Final Blood - Venous No growth after 5 days. Assessment and Plan (1) Decompensated heart failure: Status: Acute (2) Afib: Status: Acute Assessment and Plan: 84-year-old Urdu-speaking female with history of chronic atrial fibrillation on Coumadin, obesity, chronic diastolic CHF, CKD 3, hypothyroidism, chronic lymphedema, moderate persistent asthma who was sent to the emergency department after visiting urgent care provider found her to be hypotensive at home and vitals showed hypothermia in the ED. main active issues: Boderline to low bp:due to bp meds ( iv metoprolol) and lasix , not due to sepsis . received midorine d/w cardiology-stop lasix ,added ns@50 ml/hr x10 hours. JEN on CKD3 ?cardiorenal pt reporting sob; cxr c/w CHF; no hypoxia d/w nephro and cardiology- iv alsix drip,soafar 6.7 liter negative ,moniter bmp closely. Acute on Chronic HFpEF further diuresis on hold as above. chronic atrial fibrillation-has afib with rvr has 4 sec pause few days back. hr moslty in 110-120 range INR subatherapeutic ,adjusted warfarin 3.5mg. cotninue metoprolol. cardiology following feverx1 low grade : tachycardia due to afib-not due to sepsis . cr elevated due to overdiuresis(basline seems around 1.6-1.7 range )-not due to sepsis . ch thromcytopenia -not due to sepsis . wbc 5.1 patient no septic at present . workup for fever ordered -respiratory viral panel, ua ,cxr. cxr -likely congestion ,respiratory viral panel negative , ua previously negative ,added us -needs to be sent. acute hypoxemic respiratory failure -multifactorial (chf ,atelactasis vs acute asthma ( severe) excerebation-patient is on trilogy at home,also gets xiolair infusions in [facility]) vbg -7.36//79. started on nebs ,steriods ,oxygen -goal sats no more than 90%. ICU eval added other issues: Hypothermia -unclear etiology, resolved. TSH normal, radom cortisol levels seems fine. UA negative, blood cultures neg. no clear other source of infection idenified received empiric hydrocortisone in ED on admission will continue to moniter SIRS does meet sirs criteria with hypothermia and white count <4 hypotermia seems to be resolved. no obvious source of infection at this time; UA negative received empiric zosyn, will defer further abx for now lactic acid normal blood cultures negative. chronic b/l LE lymphedema legs do no appear infected received empiric abx in ED, will hold further abx for now wound care consult moderate persistent asthma :No acute exacerbation at this time Continue home medication hypothyroidism: Continue Synthroid morbid obesity BMI 32.2 Weight loss encouraged. sacrum right: stage 2 Pressure Injury POA Turn and Reposition every 2 hours and as needed for patient comfort.? Use pillows or wedges to support off loading positions. Off Load all bony prominences with use of pillows and heel boots if needed.? Apply Preventative foams where needed. ? Monitor for incontinence and moisture control, use barrier creams when needed for prevention and treatment. Provide adequate and supplemental nutrition.? Continue low air loss mattress. When applicable maintain blood glucose levels per Providers order. Bilateral Lower Legs - Elevate lower legs off of surface of bed with use of pillows.? Cleanse with Denisha [place], Pat dry.? Apply barrier cream to periwound. Apply layer of Durafiber to open wound beds secure with ABD pad, gauze wrap and tape.? Change every other day. continue to follow up outpt with wound clinic. Medihoney was used for todays dressing. Recommend Durfiber Ag if available if not may continue with Medihoney gel and dry ABD gauze dressing Sacrum - Off Load Pressure with Q2 hr turns and use of pillows - Cleanse with PH balance spray or wipes, pat dry. ?Apply thin layer of Triad to wound bed - only pat and dab no scrub and rub when soiling occurs. Reapply thin layer PRN after each episode of incontinence. DVT prophylaxis-Lovenox ongoing need hospital for evaluation and management of hypothermia and acute on chronic CHF, jen and boderline bp- need close monitering for renal function/electrolytes and bp/hypothermia monitering. above is d/wed with family in detail-patient is full code . Quality Stroke Does the patient have a stroke diagnosis?: No VTE Prior VTE?: No VTE Risk Level:: Medical - moderate - high VTE Device Contraindication: Treatment Not Indicated VTE Drug Contraindication: N/A - Med Ordered
[2024-09-01] MEDS: Albumin Human 25 % 100 ML IV ×2 (11:30→17:13)
[2024-09-01] MEDS: 0.9 % Sodium Chloride 1,000 ML 50 ML IVCONT ×2 (11:30→14:56)
[2024-09-01 11:35] LABS: Albumin Level 2.8 g/dL (3.5-5.0); Total Protein 7.7 g/dL (6.5-8.0)
[2024-09-01 11:54] LABS: ABG Base Excess 13.9 mmol/L; ABG HCO3 42 mmol/L (22-26); ABG pCO2 74 mmHg (32-45); ABG pH 7.36 (7.35-7.45); ABG pO2 79 mmHg (83-108)
[2024-09-01 12:18] LABS: Adenovirus PCR Not Detected (Not Detect.); Bordetella parapertussis PCR Not Detected (Not Detect.); Bordetella pertussis PCR Not Detected (Not Detect.); Chlamydia pneumoniae PCR Not Detected (Not Detect.); Coronavirus 229E PCR Not Detected (Not Detect.); Coronavirus HKU1 PCR Not Detected (Not Detect.); Coronavirus NL63 PCR Not Detected (Not Detect.); Coronavirus OC43 PCR Not Detected (Not Detect.); Human metapneumovirus PCR Not Detected (Not Detect.); Influenza A PCR Not Detected (Not Detect.); Influenza B PCR Not Detected (Not Detect.); Mycoplasma pneumoniae PCR Not Detected (Not Detect.); Parainfluenza 1 PCR Not Detected (Not Detect.); Parainfluenza 2 PCR Not Detected (Not Detect.); Parainfluenza 3 PCR Not Detected (Not Detect.); Parainfluenza 4 PCR Not Detected (Not Detect.); RSV PCR Not Detected (Not Detect.); Rhino/Enterovirus PCR Not Detected (Not Detect.)
[2024-09-01 12:26] LABS: SARS-CoV-2 PCR Not Detected (Not Detect.)
[2024-09-01] MEDS: methylPREDNISolone Sod Succ 40 MG/ML VIAL IVPUSH ×2 (12:41→23:45)
--- NOTE | 2024-09-01 14:15 | PM.PNCARD ---
Subjective Subjective Date of Service: 09/01/24 Principal diagnosis: Decompensated congestive heart failure Interval history: Patient was diuresed overall 6 L overall. Creatinine is rising. Altered mental status and ABG suggestive of respiratory failure with hypercapnia unclear etiology. This also low-grade fever noted. Patient also noted to be in atrial fibrillation rapid ventricular response but no slow heart rate. Patient was blood pressure is on the soft side. Her diuretics were withheld this morning. ICD evaluation was happening at my time of seeing her. Patient's son was present at bedside. We discussed about her overall delicate clinical situation. Patient has sudden said that about a month ago she was admitted to [facility] had similar problems at [facility]. Review of Systems Constitutional: Reports weakness Eyes: Reports no additional eye complaints Cardiovascular: Reports no additional cardiovascular complaints Respiratory: Reports no additional respiratory complaints Gastrointestinal: Reports no additional gastrointestinal complaints Reports weakness Physical Exam Vital Signs: Last Vital Signs Temp 98.3 F 09/01/24 12:00 Pulse 113 H 09/01/24 12:00 Resp 20 09/01/24 12:00 BP 96/51 L 09/01/24 12:00 Pulse Ox 92 09/01/24 12:00 O2 Del Method Nasal Cannula 09/01/24 12:00 O2 Flow Rate 2 09/01/24 12:00 BMI result Body Mass Index 32.2 Const General: no acute distress, tired appearing and other (Somnolent) Nutritional Appearance: obese Neck Neck: Yes trachea midline, Yes supple and Yes no JVD Resp Effort & Inspection: decreased respiratory effort Auscultation: no rales, no wheezes and diminished lung sounds Cardio Jugular venous distension: no JVD Rate: tachycardic Rhythm: abnormal rhythm irregularly irregular Heart sounds: S1 normal heart sound present, S2 normal heart sound present and no murmurs GI Auscultation: normal bowel sounds Neuro General: moves all extremities and other (Somnolent but arousable and identifies everybody.) Extrem General: Yes no clubbing, cyanosis or edema Objective Labs and Meds 09/01/24 10:14 09/01/24 08:37 Lab results: Laboratory Results - last 24 hr 09/01/24 09/01/24 09/01/24 06:46 08:37 10:14 WBC 5.1 RBC 4.03 L Hgb 11.9 L Hct 38.2 MCV 94.8 MCH 29.5 MCHC 31.2 RDW 14.0 Plt Count 153 L MPV 10.8 Absolute Nucleated RBC 0.000 Nucleated RBC % (auto) 0.0 Hold Purple Top SEE NOTE PT 18.2 H INR 1.6 H O2 Saturation ABG pH at Pt Temp ABG pCO2 at Pt Temp ABG pO2 at Pt Temp ABG HCO3 ABG Base Excess (Actual) Sodium 143 Potassium 4.8 Chloride 99 Carbon Dioxide 34 H Anion Gap 15 BUN 41 H Creatinine 2.04 H Estim Creat Clear Calc 20.8 Estimated GFR 23 Random Glucose 69 Calcium 8.4 Total Protein 7.7 Albumin 2.8 L Respiratory Panel Zamarripa Adenovirus (Rapid PCR) B.pert (TEM-PCR) B.parapertussis DNA PCR C. pneumoniae DNA (PCR) Coronavirus OC43 (PCR) Coronavirus HKU1 (PCR) Coronavirus 229E (PCR) Coronavirus NL63 (PCR) Human Metapneumovir PCR Influenza A (RT-PCR) Influenza B (RT-PCR) M. pneumoniae (PCR) Parainfluenza 1 (PCR) Parainfluenza 2 (PCR) Parainfluenza 3 (PCR) Parainfluenza 4 (PCR) RSV (PCR) Entero/Rhino (PCR) SARS-CoV-2 RNA (RT-PCR) 09/01/24 09/01/24 10:53 11:49 WBC RBC Hgb Hct MCV MCH MCHC RDW Plt Count MPV Absolute Nucleated RBC Nucleated RBC % (auto) Hold Purple Top PT INR O2 Saturation 96.0 ABG pH at Pt Temp 7.36 ABG pCO2 at Pt Temp 74 H* ABG pO2 at Pt Temp 79 L ABG HCO3 42 H ABG Base Excess (Actual) 13.9 Sodium Potassium Chloride Carbon Dioxide Anion Gap BUN Creatinine Estim Creat Clear Calc Estimated GFR Random Glucose Calcium Total Protein Albumin Respiratory Panel Zamarripa See Note Adenovirus (Rapid PCR) Not Detected B.pert (TEM-PCR) Not Detected B.parapertussis DNA PCR Not Detected C. pneumoniae DNA (PCR) Not Detected Coronavirus OC43 (PCR) Not Detected Coronavirus HKU1 (PCR) Not Detected Coronavirus 229E (PCR) Not Detected Coronavirus NL63 (PCR) Not Detected Human Metapneumovir PCR Not Detected Influenza A (RT-PCR) Not Detected Influenza B (RT-PCR) Not Detected M. pneumoniae (PCR) Not Detected Parainfluenza 1 (PCR) Not Detected Parainfluenza 2 (PCR) Not Detected Parainfluenza 3 (PCR) Not Detected Parainfluenza 4 (PCR) Not Detected RSV (PCR) Not Detected Entero/Rhino (PCR) Not Detected SARS-CoV-2 RNA (RT-PCR) Not Detected Progress Note: A&P Assessment and plan (1) Decompensated heart failure: Status: Acute Assessment and Plan: Decompensated congestive heart failure now with but appears to be over diuresis with rising creatinine. Patient was 6 L negative balance. Also noted to have low blood pressure. Lasix has been appropriately withheld. Will hold off for a day or 2. Gentle hydration 500 cc of the next 10 hours. Follow-up renal function tomorrow. Supportive care. (2) Afib: Status: Acute Assessment and Plan: Atrial fibrillation with rapid ventricular response with without any obvious symptoms at current point time. Give digoxin 0.25 mg now for 1 dose as remains elevated can do another digoxin in about 6-8 hours. I would not give her oral long-term digoxin for now. Continue low-dose metoprolol therapy. Overall prognosis guarded. Discussed with the patient's son in details. (3) Hypercapnia: Status: Acute Assessment and Plan: Hypercapnia being evaluated by ICU team. At this point time appears that there is no obvious reason for her to have hypercapnia Mibi just poor respiratory reserve and hypoventilation and body habitus. Out of bed to chair, incentive spirometry and possible trial of BiPAP. Discussion about advanced directives being done with the family. (4) Hypotension: Status: Acute Assessment and Plan: Low blood pressure. Without clear hypotension. Gentle hydration as above. Continue metoprolol for rate control. Can give midodrine low-dose for support temporarily the blood pressure improves. Will follow with you Time Spent With Patient Time: Total time managing care of this patient today ____ minutes. Progress Note: Quality Stroke Does the patient have a stroke diagnosis?: No Procedures Date of Service Date of Service: 09/01/24
[2024-09-01] MEDS: Digoxin 0.5 MG/2 ML AMPUL 0.25 MG IVPUSH (14:56)
[2024-09-01] MEDS: Midodrine HCl 5 MG TABLET PO (14:57)
[2024-09-01] MEDS: Albuterol/Iprat 2.5/0.5MG 3 ML AMPUL.NEB INHALE ×3 (15:16→23:21)
[2024-09-01 16:19] LABS: Glucose, Whole Blood 111 mg/dL (60-115)
[2024-09-01 17:09] LABS: Procalcitonin 0.79 ng/mL
[2024-09-01] MEDS: Piperacillin Sodium/Tazobactam 2.25 GM in 0.9 % Sodium Chloride 50 ML IV ×2 (17:12→23:45)
[2024-09-01] MEDS: Enoxaparin Sodium 80 MG/0.8 ML SYRINGE SUBCUT (17:17)
[2024-09-01 17:49] LABS: ABG Base Excess 10.9 mmol/L; ABG HCO3 40 mmol/L (22-26); ABG pCO2 79 mmHg (32-45); ABG pH 7.31 (7.35-7.45); ABG pO2 106 mmHg (83-108)
[2024-09-01 17:55] LABS: Lactic Acid 0.7 mmol/L (0.5-2.0)
[2024-09-01 19:48] LABS: ABG Base Excess 10.8 mmol/L; ABG HCO3 40 mmol/L (22-26); ABG pCO2 78 mmHg (32-45); ABG pH 7.31 (7.35-7.45); ABG pO2 56 mmHg (83-108)
--- NOTE | 2024-09-01 20:02 | PM.EVENT ---
Event Note Date of Service: 09/01/24 Event Note: I was contacted by ICU team and advised that they had evaluated patient and discussed with family and that she will be transferred to ICU for a higher level of care. I have thus placed transfer orders. I did not see or evaluate patient. Time Spent With Patient Time: Total time managing care of this patient today __0__ minutes.
[2024-09-01] MEDS: Furosemide 40 MG/4 ML VIAL IVPUSH (21:20)
[2024-09-01] MEDS: 0.9 % Sodium Chloride Flush 3 ML SYRINGE IVFLUSH (21:23)
--- NOTE | 2024-09-01 21:36 | PM.CCN ---
Critical Care Event Note Summary Date of Service: 09/01/24 Code activated: No Narrative: This case had a high probability of a clinically significant, sudden, or life threatening deterioration of this patient's condition which required my full and direct attention, intervention and personal management. Critical Care Time (minutes): 90 Comment: Clinical Prescedent: ?The patient is being transferred to the ICU due to hypoxic/hypercarbic respiratory failure who failed BiPAP trial on the floor. The patient is an 84-year-old female who speaks Hong [place]er only, has underlying history of CHF, chronic kidney disease stage 3, COPD not on O2, tricuspid regurg, chronic lymphedema and recurrent cellulitis of lower extremities, nonhealing wound of the lower extremities, venous stasis dermatitis of the right lower extremity, hypothyroidism, atrial fibrillation previously on Coumadin, asthma, hypertension. Patient had been admitted to the medical floor on 08/26/2024 after being seen in the emergency room with complaints of shortness of breath for a week.? At the time the patient had been found to be hypothermic, laboratory workup revealed leukopenia with white count of 3.4, otherwise she was hemodynamically stable. ?chest x-ray has show evidence of CHF and cardiomegaly, her exam was concerning for lower extremity cellulitis.? The patient had been started on Lasix and Zosyn. ?While in the floor, the patient had continue with the above-mentioned therapy. ?Overall the patient I's and O's revealed negative balance and given slight increase in her creatinine her Lasix was stopped. ?During the day the patient's mental status had changed becoming somewhat somnolent, around noon time a blood gas revealed pH of 7.36, pCO2 74, bicarb of 42 PaO2 of 79.? Subsequently this worsened, ICU was consulted, the patient had another blood gas around 545 in the afternoon and this revealed a pH of 7.31, pCO2 79. ?The patient was placed on BiPAP. ?Re-evaluation of the patient during my encounter, the patient is not responsive, repeat blood gas still shows pH of 7.31, pCO2 78, bicarb 40.? PO2 56. I had a lengthy discussion with family members answered all their question for almost 1 hour and address code status in detail.? At this point they would like to proceed with transferred to the ICU and if necessary intubation and any other necessary measures to treat the patient. ?Soon after making this decision, the patient became arousable recognizing her children and following commands.? Despite of this the decision was to transferred to the ICU for further BiPAP treatment and precaution for decompensation. CODE STATUS: FULL CODE ROS:? Unable to obtain PHYSICAL EXAM: VS: 96/48, 86 irregular, 26, on BiPAP of 18/8, 26, 21% with O2 sat of 92% General: ?Initially the patient was unarousable and obtunded on BiPAP.? About an hour and a half later, she is now ?Alert oriented x3 no acute distress.? Speaking full sentences in [place]..? Speech is well articulated, thought process is coherent.? Following all commands. Skin:? Bilateral lower extremity black hyperpigmentation of the legs up to just past mid tibia. ?Thickening of her skin, extremities are warm but not hot.? Unable to assess for perfusion. HEENT:? Head is normocephalic, atraumatic, pupils equal round bilaterally. Buccal mucosa is moist, Neck is supple without lymphadenopathy. Cardiac:? Clear S1-S2 although irregular about 70 beats per minute.? 3/6 murmur noted at the left upper and left lower sternal border.? No S3 gallop. Pulmonary:? Diminished lung sounds bilaterally with crackles at both bases.? No rhonchi.? Minor wheezing anteriorly in the upper hall. Abdomen:? Protuberant, positive bowel sounds in all 4 quadrants.? Soft, nontender, no rebound or guarding.? Musculoskeletal:? Skin changes as above Moving all 4 extremities upon request a major joints, there is no crepitus or tenderness.? The strength is 5/5 bilaterally and throughout all 4 extremities.? There is no leg edema , no calf tenderness , no leg asymmetry. Neurologic:? As above, no focal deficits.. Vascular:? 2+ pulses upper and lower extremities distally. LABORATORIES: Reviewed TODAY'S CHEST X-RAY IMPRESSION 1. Cardiomegaly with mild diffuse pulmonary vascular congestion. 2. Increased retrocardiac density due to atelectasis/early consolidation. ASSESSMENT : 1. Acute on chronic hypoxic/hypercarbic respiratory failure likely multifactorial 2. Acute CHF exacerbation likely diastolic in nature.? Ejection fraction of 55-60% per echo in May of 2024. 3. Acute asthma exacerbation 4. Chronic stasis dermatitis and lymphedema of lower extremities 5. Suspected cellulitis of right lower extremity currently on Zosyn 6. Rate controlled atrial fibrillation currently on full-dose Lovenox as the patient can not take p.o. 7. Hypoalbuminemia 8. Acute on chronic kidney injury likely due to hypoperfusion less likely due to forced diuresis.? Baseline creatinine about 1.8. Rule out cardiorenal syndrome 9. Improved acute metabolic encephalopathy due to CO2 retention 10. Transient hypotension likely due to diuresis influenced by antihypertensive medications administration. PLAN OF CARE: As above-mentioned, the patient was transferred to the ICU, we will continue with BiPAP support, adjustment to the FiO2 has been made to avoid further retention of CO2.? Patient was on 32% FiO2 with an O2 sat of 96%, we will adjust the FiO2 to goal O2 sat of 90-92%.? Aspiration precautions.? We will repeat blood gas in about 4 hours. ?Continue with diuresis. Repeat echo in the morning. Appreciate Cardiology and Nephrology input. POCUS exam at bedside reveals ejection fraction 45-50%.?IVC is 2.2 cm not collapsible.? We will start her back on Lasix 40 mg b.i.d.. ?Continue with the steroids and antibiotics, scheduled nebulizers and p.r.n. albuterol.? Continue with wound care.? Albumin replacement and if necessary vasopressor support.? Repeat laboratories in the morning. GI PROPHYLAXIS: ?IV ppi DVT PROPHYLAXIS:? Full-dose Lovenox. Critical care time used for critical evaluation of this patient, diagnosis, treatment and coordination of care, review her records and documentation TOTAL CRITICAL CARE TIME?90 MIN . discussion and coordination with consultants, completely separate from any procedures performed. Patient's care was discussed in detail with Dr. Joseph who is aware of all the above as well as the plan of care for this patient.
[2024-09-02] VITALS (42 sets, daily range): BP systolic 81–138; BP diastolic 6–88; PULSE 71–120; RESP 15–22; TEMP 36.4–37.3; O2SAT 86–98; BMI 30.1
[2024-09-02] MEDS: Norepinephrine Bitartrate/D5W 8 MG/250 ML PLAST..BAG 7.73 MG IVCONT (00:03)
[2024-09-02 00:14] LABS: Venous Blood Gas Refer to POC result
[2024-09-02 00:15] LABS: VBG Base Excess 10.9 mmol/L; VBG HCO3 35 mmol/L (22-26); VBG pCO2 48 mmHg; VBG pH 7.47 (7.32-7.43); VBG pO2 124 mmHg
[2024-09-02 00:26] LABS: Anion Gap 16 (12-20); Blood Urea Nitrogen 53 mg/dL (9-16); Calcium 8.3 mg/dL (8.4-10.2); Carbon Dioxide 34 mmol/L (22-29); Chloride 99 mmol/L (96-108); Creatinine Clr Calc Pharmacy 16.3; Estimated Glomerular Filt Rate 18; Glucose Random 115 mg/dL (60-115); Potassium 5.2 mmol/L (3.3-5.1); Sodium 144 mmol/L (135-145)
[2024-09-02 04:50] LABS: Basophils Percent Auto 0.3 % (0-2); Hematocrit 37.9 % (37.0-47.0); Hemoglobin 11.8 g/dl (12.0-16.0); Imm Gran Abs Auto 0.04 X10*3/uL (0.00-0.03); Imm Gran Pct Auto 1.1 % (0.0-0.4); Lymphocytes Absolute Auto 0.7 X10*3/uL (1.2-4.9); Lymphocytes Percent Auto 20.4 % (20-40); MANUAL DIFF FLAG NO; Mean Corpuscular HGB Conc 31.1 g/dl (31.0-35.0); Mean Corpuscular Hemoglobin 29.3 pg (27.0-33.0); Mean Platelet Volume 10.8 fL (9.4-12.3); Monocytes Absolute Auto 0.1 X10*3/uL (0.1-1.2); Neutrophils Absolute Auto 2.7 x10*3/uL (2.0-8.3); Neutrophils Percent Auto 76.2 % (45-73); Platelet Count 147 X10*3/uL (160-400); Red Blood Count 4.03 X10*6/uL (4.20-5.50); Red Cell Distribution Width 13.4 % (11.0-16.0); White Blood Count 3.5 X10*3/uL (4.8-10.8)
[2024-09-02 04:54] LABS: VBG Base Excess 9.2 mmol/L; VBG HCO3 36 mmol/L (22-26); VBG pCO2 63 mmHg; VBG pH 7.37 (7.32-7.43); VBG pO2 85 mmHg
[2024-09-02 04:56] LABS: Venous Blood Gas Refer to POC result
[2024-09-02 04:56] LABS: INTERNATIONAL NORM RATIO 1.6 (0.9-1.1); Prothrombin Time 19.2 SEC (10.9-12.4)
[2024-09-02 05:13] LABS: Alanine Aminotransferase 6 U/L (0-31); Albumin Level 3.6 g/dL (3.5-5.0); Alkaline Phosphatase 87 U/L (39-117); Anion Gap 18 (12-20); Aspartate Amino Transferase 23 U/L (5-31); Bilirubin Total 0.7 mg/dL (0.0-1.0); Blood Urea Nitrogen 60 mg/dL (9-16); Carbon Dioxide 32 mmol/L (22-29); Chloride 99 mmol/L (96-108); Creatinine Clr Calc Pharmacy 16.2; Estimated Glomerular Filt Rate 17; Glucose Random 122 mg/dL (60-115); Magnesium 2.1 mg/dL (1.6-2.6); Phosphorus 5.2 mg/dL (2.7-4.5); Potassium 5.2 mmol/L (3.3-5.1); Sodium 144 mmol/L (135-145); Total Protein 8.4 g/dL (6.5-8.0)
[2024-09-02] MEDS: Albuterol/Iprat 2.5/0.5MG 3 ML AMPUL.NEB INHALE ×5 (05:13→20:00)
[2024-09-02] MEDS: Piperacillin Sodium/Tazobactam 2.25 GM in 0.9 % Sodium Chloride 50 ML IV ×4 (05:27→23:36)
[2024-09-02] MEDS: Pantoprazole Sodium 40 MG/10 ML VIAL IVPUSH (05:30)
[2024-09-02] MEDS: Albuterol Sulfate 2.5 MG, Albuterol Sulfate (0.083%) 2.5 MG 5 MG INHALE (05:45)
--- NOTE | 2024-09-02 06:15 | PC.NURSE ---
Patient arrived to ICU from Med/Tele at approx 2044 via bed with RN and CONCERT PROMOTER. Bedside report given by Med/adjunct physics instructor. Patient alert and oriented x4, Russian-speaking only and soft spoken but able to answer orientation questions appropriately. Afib on tele with occasional PVCs, pitting edema to BLE. Patient placed on BiPAP per PA Stas, see BiPAP assessment. Glidescope remains at bedside per PA. Abdomen soft and round, active bowel sounds x4. Patient bladder scanned for 212mL, purewick in place. 40mg IVP lasix admin per AUG. Patient skin largely warm and dry, BLE with extensive venous stasis thickening. Barrier cream applied, open to air.? Stage 2 pressure injury to right buttock, pink foam in place. Patient denies pain, able to move all extremities. Patient's family to bedside for comfort, updated by this RN via spanish interpreter on plan of care. Repositioned Q2HR, bed alarm on, call dempsey within reach.?
--- NOTE | 2024-09-02 07:00 | CA_ITS ---
Transthoracic Echocardiogram Patient (Last, First, Middle): Adriana Roldan G Gender: Female Date of : 1940 Age: 84 Procedure Date: 09/02/2024 Procedure Type: Transthoracic Echocardiogram Location: ICU Height: 160. 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 The visually estimated ejection fraction is between 60-65%. - There is mild aortic valve regurgitation. - There is mild mitral valve regurgitation. - There is mild tricuspid valve regurgitation. Findings Left Ventricle Normal left ventricular cavity size. There is normal left ventricular wall thickness. The left ventricular systolic function is normal. The visually estimated ejection fraction is between 60-65%. There is no evidence of regional wall motion abnormalities. Diastolic function is indeterminate on the basis of available data. Right Ventricle Mildly increased right ventricular cavity size. There is normal right ventricular systolic function. Atria Mild biatrial enlargement. Aortic Valve There is a normal trileaflet aortic valve. There is mild calcification of the aortic valve. There is no aortic valve stenosis. There is mild aortic valve regurgitation. Mitral Valve There is mild mitral annular calcification. There is mild mitral valve regurgitation. There is no mitral valve stenosis. Pulmonic Valve The pulmonic valve is likely normal. Tricuspid Valve There is mild tricuspid valve regurgitation. There is no evidence of pulmonary hypertension. Great Vessels The asc aorta and aortic arch are normal in size. Venous The inferior vena cava is mildly dilated and collapses less than 50% with inspiration. Pericardium/Pleural There is no evidence of pericardial effusion. Prior Study Comparison No significant change compared to prior study dated: 05/30/2024. Measurements 2D Linear Measurements IVSd: 0.93 0.6-0.9/0.6-1.0 cm LVIDd: 3.99 3.9-5.3/4.2-5.9 cm LVIDd Index: 2.27 2.4-3.2/2.2-3.1 cm/m2 LVIDs: 2.57 2.0-3.6 cm LVPWd: 1.08 0.7-1.1 cm LA Diam: 3.80 2.7-3.8/3.0-4.0 cm LAIDs Index: 2.16 1.5-2.3 cm/m2 LV Mass: 158.80 67-162/88-224 g LV Mass Index: 90.23 43-95/49-115 g/m2 LVOT Diam: 1.80 3.0+(-)1.3 cm 2D Systolic Function EF 4C: 57.90 >55% EF 2C: 48.80 >55% EF BiP: 53.60 >55% Mitral Valve MV Pk E: 1.15 MV Decel Time: 206.00 E'Lateral: 8.05 E'Medial: 6.09 E/E' Med: 18.90 E/E' Lat: 14.30 PHT: 60.00 MVA PHT: 3.67 Decel Randall: 5.58 Aortic Valve AoV Pk Giles: 2.02 AoV Mn Giles: 1.42 AoV VTI: 0.40 AoV Pk Grad: 16.00 Aov Mn Grad: 9.00 PRINCESS Cont.VTI: 1.42 AI Pk Giles: 3.65 AI Randall: 1.74 LVOT LVOT Pk Giles: 1.15 LVOT Mn Giles: 0.82 LVOT VTI: 0.23 LVOT Pk Grad: 5.00 LVOT Mn Grad: 3.00 LVOT Diam: 1.80 LVOT Area: 2.54 Diastolic Function MV Pk E: 1.15 E'Medial: 6.09 E/E' Med: 18.90 E' Laterial: 8.05 E/E' Lat: 14.30 Right Ventricle TAPSE (mm): 29.00 TVS' Giles: 11.80 Tricuspid Valve TR Pk Giles: 2.21 TR Pk Grad: 20.00 RA Press: 15.00 RVSP: 35.00 Great Vessels Aorta Sinus of Valsalva: 3.80 2.0-3.5 cm Ao Asc: 3.40 2.1-3.4 cm Ao Arch: 2.50 Pulmonary Valve PV Pk Giles: 1.10 Peak PV Grad: 5.00 Updated in Other Vendor System with Status of Final Jaziel Caballero MD electronically signed on 09/02/2024 4:27:40 PM with status of Final
[2024-09-02 07:43] LABS: Anion Gap 19 (12-20); Blood Urea Nitrogen 57 mg/dL (9-16); Calcium 8.9 mg/dL (8.4-10.2); Carbon Dioxide 30 mmol/L (22-29); Chloride 99 mmol/L (96-108); Creatinine Clr Calc Pharmacy 15.6; Estimated Glomerular Filt Rate 17; Glucose Random 127 mg/dL (60-115); Potassium 5.1 mmol/L (3.3-5.1); Sodium 143 mmol/L (135-145)
--- NOTE | 2024-09-02 07:43 | P.PNCC_ITS ---
Subjective Subjective Date of Service: 09/02/24 Critical Care Time (minutes): 60 Physical Exam 2 Vital Signs: Vital Signs: Last Vital Signs Temp 99.1 F 09/02/24 04:00 Pulse 94 09/02/24 07:00 Resp 22 H 09/02/24 07:37 BP 97/53 L 09/02/24 07:00 Pulse Ox 95 09/02/24 07:00 O2 Del Method BiPAP 09/02/24 07:00 O2 Flow Rate 1 09/01/24 15:59 FiO2 24 09/02/24 07:00 BMI result Body Mass Index 30.1 Const: General: cooperative, healthy appearing, comfortable, no acute distress, well developed, alert, awake and Physically active O rientation/consciousness: oriented to person HEENT: Head: Yes normal to inspection, Yes normocephalic and Yes atraumatic Eyes: General: appearance normal, both eyes and all related structures Neck: Neck: Yes normal visual inspection, Yes full ROM, Yes no meningeal signs, Yes trachea midline and Yes supple Resp: Other: no appreciable overt rales, rhonchi, wheezing Effort & Inspection: normal respiratory effort Cardio: Rate: regular rate Rhythm: abnormal rhythm GI: Inspection: Yes normal to inspection, No Abdominal wall edema and No distended Palpation (GI): Soft to palpation, not firm, nontender, no guarding and not rigid Skin: Other: appreciable bilateral lower extremity venous stasis changes, warm, though w/o purulence, induration Neuro: General: oriented to person, tone normal, moves all extremities, no meningeal signs and no focal motor deficits Extrem: Other: as described above; 3+ pitting edema to bilateral thighs General: Yes full ROM and Yes capillary refill normal Psych: Appearance: grossly normal Objective Data Labs 09/02/24 04:41 09/02/24 07:10 Labs: Laboratory Results - last 24 hr 09/01/24 09/01/24 09/01/24 08:37 10:14 10:53 WBC 5.1 RBC 4.03 L Hgb 11.9 L Hct 38.2 MCV 94.8 MCH 29.5 MCHC 31.2 RDW 14.0 Plt Count 153 L MPV 10.8 Immature Gran % (Auto) Neut % (Auto) Lymph % (Auto) [place] % (Auto) Eos % (Auto) Baso % (Auto) Lymph # (Auto) [place] # (Auto) Eos # (Auto) Baso # (Auto) Abs Immat Gran (auto) Absolute Neuts (auto) Absolute Nucleated RBC 0.000 Nucleated RBC % (auto) 0.0 Hold Purple Top SEE NOTE PT INR O2 Saturation ABG pH at Pt Temp ABG pCO2 at Pt Temp ABG pO2 at Pt Temp ABG HCO3 ABG Base Excess (Actual) VBG pH VBG pCO2 VBG pO2 VBG HCO3 VBG O2 Saturation VBG Base Excess Sodium 143 Potassium 4.8 Chloride 99 Carbon Dioxide 34 H Anion Gap 15 BUN 41 H Creatinine 2.04 H Estim Creat Clear Calc 20.8 Estimated GFR 23 POC Glucose Random Glucose 69 Lactic Acid Calcium 8.4 Phosphorus Magnesium Total Bilirubin AST ALT Alkaline Phosphatase Total Protein 7.7 Albumin 2.8 L Procalcitonin 0.79 Respiratory Panel Zamarripa See Note Adenovirus (Rapid PCR) Not Detected B.pert (TEM-PCR) Not Detected B.parapertussis DNA PCR Not Detected C. pneumoniae DNA (PCR) Not Detected Coronavirus OC43 (PCR) Not Detected Coronavirus HKU1 (PCR) Not Detected Coronavirus 229E (PCR) Not Detected Coronavirus NL63 (PCR) Not Detected Human Metapneumovir PCR Not Detected Influenza A (RT-PCR) Not Detected Influenza B (RT-PCR) Not Detected M. pneumoniae (PCR) Not Detected Parainfluenza 1 (PCR) Not Detected Parainfluenza 2 (PCR) Not Detected Parainfluenza 3 (PCR) Not Detected Parainfluenza 4 (PCR) Not Detected RSV (PCR) Not Detected Entero/Rhino (PCR) Not Detected SARS-CoV-2 RNA (RT-PCR) Not Detected 09/01/24 09/01/24 09/01/24 11:49 16:15 17:30 WBC RBC Hgb Hct MCV MCH MCHC RDW Plt Count MPV Immature Gran % (Auto) Neut % (Auto) Lymph % (Auto) [place] % (Auto) Eos % (Auto) Baso % (Auto) Lymph # (Auto) [place] # (Auto) Eos # (Auto) Baso # (Auto) Abs Immat Gran (auto) Absolute Neuts (auto) Absolute Nucleated RBC Nucleated RBC % (auto) Hold Purple Top PT INR O2 Saturation 96.0 ABG pH at Pt Temp 7.36 ABG pCO2 at Pt Temp 74 H* ABG pO2 at Pt Temp 79 L ABG HCO3 42 H ABG Base Excess (Actual) 13.9 VBG pH VBG pCO2 VBG pO2 VBG HCO3 VBG O2 Saturation VBG Base Excess Sodium Potassium Chloride Carbon Dioxide Anion Gap BUN Creatinine Estim Creat Clear Calc Estimated GFR POC Glucose 111 Random Glucose Lactic Acid 0.7 Calcium Phosphorus Magnesium Total Bilirubin AST ALT Alkaline Phosphatase Total Protein Albumin Procalcitonin Respiratory Panel Z[facility] Adenovirus (Rapid PCR) B.pert (TEM-PCR) B.parapertussis DNA PCR C. pneumoniae DNA (PCR) Coronavirus OC43 (PCR) Coronavirus HKU1 (PCR) Coronavirus 229E (PCR) Coronavirus NL63 (PCR) Human Metapneumovir PCR Influenza A (RT-PCR) Influenza B (RT-PCR) M. pneumoniae (PCR) Parainfluenza 1 (PCR) Parainfluenza 2 (PCR) Parainfluenza 3 (PCR) Parainfluenza 4 (PCR) RSV (PCR) Entero/Rhino (PCR) SARS-CoV-2 RNA (RT-PCR) 09/01/24 09/01/24 09/02/24 17:44 19:43 00:06 WBC RBC Hgb Hct MCV MCH MCHC RDW Plt Count MPV Immature Gran % (Auto) Neut % (Auto) Lymph % (Auto) [place] % (Auto) Eos % (Auto) Baso % (Auto) Lymph # (Auto) [place] # (Auto) Eos # (Auto) Baso # (Auto) Abs Immat Gran (auto) Absolute Neuts (auto) Absolute Nucleated RBC Nucleated RBC % (auto) Hold Purple Top PT INR O2 Saturation 100.0 84.0 ABG pH at Pt Temp 7.31 L 7.31 L ABG pCO2 at Pt Temp 79 H* 78 H* ABG pO2 at Pt Temp 106 56 L ABG HCO3 40 H 40 H ABG Base Excess (Actual) 10.9 10.8 VBG pH VBG pCO2 VBG pO2 VBG HCO3 VBG O2 Saturation VBG Base Excess Sodium 144 Potassium 5.2 H Chloride 99 Carbon Dioxide 34 H Anion Gap 16 BUN 53 H Creatinine 2.60 H Estim Creat Clear Calc 16.3 Estimated GFR 18 POC Glucose Random Glucose 115 Lactic Acid Calcium 8.3 L Phosphorus Magnesium Total Bilirubin AST ALT Alkaline Phosphatase Total Protein Albumin Procalcitonin Respiratory Panel Z[facility] Adenovirus (Rapid PCR) B.pert (TEM-PCR) B.parapertussis DNA PCR C. pneumoniae DNA (PCR) Coronavirus OC43 (PCR) Coronavirus HKU1 (PCR) Coronavirus 229E (PCR) Coronavirus NL63 (PCR) Human Metapneumovir PCR Influenza A (RT-PCR) Influenza B (RT-PCR) M. pneumoniae (PCR) Parainfluenza 1 (PCR) Parainfluenza 2 (PCR) Parainfluenza 3 (PCR) Parainfluenza 4 (PCR) RSV (PCR) Entero/Rhino (PCR) SARS-CoV-2 RNA (RT-PCR) 09/02/24 09/02/24 09/02/24 00:11 04:41 04:42 WBC 3.5 L RBC 4.03 L Hgb 11.8 L Hct 37.9 MCV 94.0 MCH 29.3 MCHC 31.1 RDW 13.4 Plt Count 147 L MPV 10.8 Immature Gran % (Auto) 1.1 H Neut % (Auto) 76.2 H Lymph % (Auto) 20.4 [place] % (Auto) 2.0 Eos % (Auto) 0.0 Baso % (Auto) 0.3 Lymph # (Auto) 0.7 L [place] # (Auto) 0.1 Eos # (Auto) 0.0 Baso # (Auto) 0.0 Abs Immat Gran (auto) 0.04 H Absolute Neuts (auto) 2.7 Absolute Nucleated RBC 0.000 Nucleated RBC % (auto) 0.0 Hold Purple Top PT 19.2 H INR 1.6 H O2 Saturation ABG pH at Pt Temp ABG pCO2 at Pt Temp ABG pO2 at Pt Temp ABG HCO3 ABG Base Excess (Actual) VBG pH 7.47 H VBG pCO2 48 VBG pO2 124 VBG HCO3 35 H VBG O2 Saturation 100.0 VBG Base Excess 10.9 Sodium 144 Potassium 5.2 H Chloride 99 Carbon Dioxide 32 H Anion Gap 18 BUN 60 H Creatinine 2.62 H Estim Creat Clear Calc 16.2 Estimated GFR 17 POC Glucose Random Glucose 122 H Lactic Acid Calcium 9.0 D Phosphorus 5.2 H Magnesium 2.1 Total Bilirubin 0.7 AST 23 ALT 6 Alkaline Phosphatase 87 Total Protein 8.4 H Albumin 3.6 Procalcitonin Respiratory Panel Z[facility]pa Adenovirus (Rapid PCR) B.pert (TEM-PCR) B.parapertussis DNA PCR C. pneumoniae DNA (PCR) Coronavirus OC43 (PCR) Coronavirus HKU1 (PCR) Coronavirus 229E (PCR) Coronavirus NL63 (PCR) Human Metapneumovir PCR Influenza A (RT-PCR) Influenza B (RT-PCR) M. pneumoniae (PCR) Parainfluenza 1 (PCR) Parainfluenza 2 (PCR) Parainfluenza 3 (PCR) Parainfluenza 4 (PCR) RSV (PCR) Entero/Rhino (PCR) SARS-CoV-2 RNA (RT-PCR) 09/02/24 09/02/24 04:49 07:10 WBC RBC Hgb Hct MCV MCH MCHC RDW Plt Count MPV Immature Gran % (Auto) Neut % (Auto) Lymph % (Auto) [place] % (Auto) Eos % (Auto) Baso % (Auto) Lymph # (Auto) [place] # (Auto) Eos # (Auto) Baso # (Auto) Abs Immat Gran (auto) Absolute Neuts (auto) Absolute Nucleated RBC Nucleated RBC % (auto) Hold Purple Top PT INR O2 Saturation ABG pH at Pt Temp ABG pCO2 at Pt Temp ABG pO2 at Pt Temp ABG HCO3 ABG Base Excess (Actual) VBG pH 7.37 VBG pCO2 63 VBG pO2 85 VBG HCO3 36 H VBG O2 Saturation 98.0 VBG Base Excess 9.2 Sodium 143 Potassium 5.1 Chloride 99 Carbon Dioxide 30 H Anion Gap 19 BUN 57 H Creatinine 2.64 H Estim Creat Clear Calc 15.6 Estimated GFR 17 POC Glucose Random Glucose 127 H Lactic Acid Calcium 8.9 Phosphorus Magnesium Total Bilirubin AST ALT Alkaline Phosphatase Total Protein Albumin Procalcitonin Respiratory Panel Z[facility]ripa Adenovirus (Rapid PCR) B.pert (TEM-PCR) B.parapertussis DNA PCR C. pneumoniae DNA (PCR) Coronavirus OC43 (PCR) Coronavirus HKU1 (PCR) Coronavirus 229E (PCR) Coronavirus NL63 (PCR) Human Metapneumovir PCR Influenza A (RT-PCR) Influenza B (RT-PCR) M. pneumoniae (PCR) Parainfluenza 1 (PCR) Parainfluenza 2 (PCR) Parainfluenza 3 (PCR) Parainfluenza 4 (PCR) RSV (PCR) Entero/Rhino (PCR) SARS-CoV-2 RNA (RT-PCR) Microbiology Microbiology Results: Microbiology 08/26/24 15:32 Blood - Venous Blood Culture - Final No growth after 5 days. 08/26/24 15:32 Blood - Venous Blood Culture - Final No growth after 5 days. Progress Note: A&P Assessment and plan (1) Acute hypercapnic respiratory failure: Status: Acute (2) Hypotension: Status: Acute Plan Patient is a 84 Y F w/ chronic renal insufficiency, lower extremity lymphedema, hypothyroidism, hypertension, CHF c/b atrial fibrillation, COPD initially presenting to emergency department on 08/26 w/ dyspnea, thought to have CHF exacerbation, possible lower extremity cellulitis, admited medicine; on 09/01, patient developed hypercarbic respiratory failure, admitted ICU N: encephalopathy, likely toxic-metabolic, improving CV: hypotension, though no overt evidence of shock; norepinephrine gtt, midodrine, wean as tolerated; atrial fibrillation on digoxin R: acute on chronic hypercarbic respiratory failure, likely multi-factorial, including CHF, COPD; BiPAP, wean as tolerated GI: NPO while encephalopathic/on BiPAP, otherwise cardiac diet : acute on chronic renal insufficiency; diuresis as tolerated; to closely monitor renal indices, electrolytes H: no acute issues; atrial fibrillation on warfarin ID: empiric vanc/zosyn in setting of hypotension E: hypothyroidism on home levothyroxine P: no acute issues Quality Stroke Does the patient have a stroke diagnosis?: No VTE Prior VTE?: No VTE Risk Level:: Medical - moderate - high VTE Device Contraindication: Treatment Not Indicated VTE Drug Contraindication: N/A - Med Ordered
--- NOTE | 2024-09-02 09:16 | MHC.CLN ---
PT WITH INCREASED NUTRITION RISK R/T PRESSURE INJURY PT IS CURRENTLY NPO WHEN DIET TO ADVANCE, RECOMMEND 2GM NA DIET WITH ENSURE MAX BID TO PROMOTE WOUND HEALING SUPP TO PROVIDE 300KCALS, 60G PROTEIN MONITORING FOR DIET ADVANCEMENT
[2024-09-02] MEDS: Levothyroxine Sodium 100 MCG/5 ML VIAL 37.5 MCG IVPUSH (09:48)
[2024-09-02] MEDS: Furosemide 40 MG/4 ML VIAL IVPUSH ×2 (09:49→18:24)
[2024-09-02] MEDS: Digoxin 0.5 MG/2 ML AMPUL 0.25 MG IVPUSH (09:50)
[2024-09-02] MEDS: 0.9 % Sodium Chloride Flush 3 ML SYRINGE IVFLUSH ×3 (09:51→20:19)
[2024-09-02] MEDS: Midodrine HCl 10 MG TABLET PO ×3 (09:56→20:09)
[2024-09-02] MEDS: Montelukast Sodium 10 MG TABLET PO (09:56)
[2024-09-02] MEDS: vancomycin/NS 2,000 MG/500 ML PLAST..BAG 250 MG IV (09:57)
--- NOTE | 2024-09-02 10:26 | PHA.PROG ---
Admission Date/Time: August 26, 2024 17:33 Indication: OTHER Weight in k kg Serum Creatinine - Last 168 Hours 08/26/24 08/27/24 08/28/24 15:38 05:35 08:51 Creatinine 1.98 H 2.05 H 1.85 H 08/30/24 08/31/24 09/01/24 08:08 08:12 08:37 Creatinine 1.51 H 1.45 H 2.04 H 09/02/24 09/02/24 09/02/24 00:06 04:41 07:10 Creatinine 2.60 H 2.62 H 2.64 H Estimated CrCl and GFR - Last 168 Hours 08/26/24 08/27/24 08/28/24 15:38 05:35 08:51 Estim Creat Clear Calc 21.5 20.7 23.0 Estimated GFR 24 23 26 08/30/24 08/31/24 09/01/24 08:08 08:12 08:37 Estim Creat Clear Calc 28.1 29.3 20.8 Estimated GFR 33 34 23 09/02/24 09/02/24 09/02/24 00:06 04:41 07:10 Estim Creat Clear Calc 16.3 16.2 15.6 Estimated GFR 18 17 17 Vancomycin Loading Dose: 2000 Current Vancomycin Dosing Regimen: 500 Q 24H Vancomycin Monitoring using AUC goal of 400 - 600 range with trough as surrogate marker: 481 Date and Time for next Vancomycin Level to be drawn: 09/04 @ 0900 Pharmacist Comments on Vancomycin Plan: Vancomycin dosing will take advantage of [employer] as a clinical decision support tool that uses Bayesian modeling to calculate individual patient's pharmacokinetic parameters and forecast the patient's drug concentration time course with the target goal AUC 24 range of 400 - 600 mg/L/hr.
--- NOTE | 2024-09-02 12:37 | PM.PNNEP ---
Subjective Subjective Date of Service: 09/02/24 Principal diagnosis: Decompensated congestive heart failure Interval history: seen and examined Physical Exam Vital Signs: Vital Signs: Last Vital Signs Temp 97.8 F 09/02/24 12:00 Pulse 93 09/02/24 12:00 Resp 20 09/02/24 12:00 BP 111/59 L 09/02/24 12:00 Pulse Ox 91 L 09/02/24 12:00 O2 Del Method Nasal Cannula 09/02/24 12:00 O2 Flow Rate 1 09/02/24 12:00 FiO2 24 09/02/24 08:00 BMI result Body Mass Index 30.1 Const: General: alert and awake HEENT: Head: Yes normocephalic and Yes atraumatic Neck: Neck: Yes supple Resp: Auscultation: diminished lung sounds Cardio: Heart sounds: S1 normal heart sound present GI: Palpation (GI): Soft to palpation and nontender Extrem: General: Yes edema Objective Data Labs 09/02/24 04:41 09/02/24 07:10 Labs: Laboratory Results - last 24 hr 09/01/24 09/01/24 09/01/24 08:37 16:15 17:30 WBC RBC Hgb Hct MCV MCH MCHC RDW Plt Count MPV Immature Gran % (Auto) Neut % (Auto) Lymph % (Auto) [place] % (Auto) Eos % (Auto) Baso % (Auto) Lymph # (Auto) [place] # (Auto) Eos # (Auto) Baso # (Auto) Abs Immat Gran (auto) Absolute Neuts (auto) Absolute Nucleated RBC Nucleated RBC % (auto) PT INR O2 Saturation ABG pH at Pt Temp ABG pCO2 at Pt Temp ABG pO2 at Pt Temp ABG HCO3 ABG Base Excess (Actual) VBG pH VBG pCO2 VBG pO2 VBG HCO3 VBG O2 Saturation VBG Base Excess Sodium Potassium Chloride Carbon Dioxide Anion Gap BUN Creatinine Estim Creat Clear Calc Estimated GFR POC Glucose 111 Random Glucose Lactic Acid 0.7 Calcium Phosphorus Magnesium Total Bilirubin AST ALT Alkaline Phosphatase Total Protein Albumin Procalcitonin 0.79 09/01/24 09/01/24 09/02/24 17:44 19:43 00:06 WBC RBC Hgb Hct MCV MCH MCHC RDW Plt Count MPV Immature Gran % (Auto) Neut % (Auto) Lymph % (Auto) [place] % (Auto) Eos % (Auto) Baso % (Auto) Lymph # (Auto) [place] # (Auto) Eos # (Auto) Baso # (Auto) Abs Immat Gran (auto) Absolute Neuts (auto) Absolute Nucleated RBC Nucleated RBC % (auto) PT INR O2 Saturation 100.0 84.0 ABG pH at Pt Temp 7.31 L 7.31 L ABG pCO2 at Pt Temp 79 H* 78 H* ABG pO2 at Pt Temp 106 56 L ABG HCO3 40 H 40 H ABG Base Excess (Actual) 10.9 10.8 VBG pH VBG pCO2 VBG pO2 VBG HCO3 VBG O2 Saturation VBG Base Excess Sodium 144 Potassium 5.2 H Chloride 99 Carbon Dioxide 34 H Anion Gap 16 BUN 53 H Creatinine 2.60 H Estim Creat Clear Calc 16.3 Estimated GFR 18 POC Glucose Random Glucose 115 Lactic Acid Calcium 8.3 L Phosphorus Magnesium Total Bilirubin AST ALT Alkaline Phosphatase Total Protein Albumin Procalcitonin 09/02/24 09/02/24 09/02/24 00:11 04:41 04:42 WBC 3.5 L RBC 4.03 L Hgb 11.8 L Hct 37.9 MCV 94.0 MCH 29.3 MCHC 31.1 RDW 13.4 Plt Count 147 L MPV 10.8 Immature Gran % (Auto) 1.1 H Neut % (Auto) 76.2 H Lymph % (Auto) 20.4 [place] % (Auto) 2.0 Eos % (Auto) 0.0 Baso % (Auto) 0.3 Lymph # (Auto) 0.7 L [place] # (Auto) 0.1 Eos # (Auto) 0.0 Baso # (Auto) 0.0 Abs Immat Gran (auto) 0.04 H Absolute Neuts (auto) 2.7 Absolute Nucleated RBC 0.000 Nucleated RBC % (auto) 0.0 PT 19.2 H INR 1.6 H O2 Saturation ABG pH at Pt Temp ABG pCO2 at Pt Temp ABG pO2 at Pt Temp ABG HCO3 ABG Base Excess (Actual) VBG pH 7.47 H VBG pCO2 48 VBG pO2 124 VBG HCO3 35 H VBG O2 Saturation 100.0 VBG Base Excess 10.9 Sodium 144 Potassium 5.2 H Chloride 99 Carbon Dioxide 32 H Anion Gap 18 BUN 60 H Creatinine 2.62 H Estim Creat Clear Calc 16.2 Estimated GFR 17 POC Glucose Random Glucose 122 H Lactic Acid Calcium 9.0 D Phosphorus 5.2 H Magnesium 2.1 Total Bilirubin 0.7 AST 23 ALT 6 Alkaline Phosphatase 87 Total Protein 8.4 H Albumin 3.6 Procalcitonin 09/02/24 09/02/24 04:49 07:10 WBC RBC Hgb Hct MCV MCH MCHC RDW Plt Count MPV Immature Gran % (Auto) Neut % (Auto) Lymph % (Auto) [place] % (Auto) Eos % (Auto) Baso % (Auto) Lymph # (Auto) [place] # (Auto) Eos # (Auto) Baso # (Auto) Abs Immat Gran (auto) Absolute Neuts (auto) Absolute Nucleated RBC Nucleated RBC % (auto) PT INR O2 Saturation ABG pH at Pt Temp ABG pCO2 at Pt Temp ABG pO2 at Pt Temp ABG HCO3 ABG Base Excess (Actual) VBG pH 7.37 VBG pCO2 63 VBG pO2 85 VBG HCO3 36 H VBG O2 Saturation 98.0 VBG Base Excess 9.2 Sodium 143 Potassium 5.1 Chloride 99 Carbon Dioxide 30 H Anion Gap 19 BUN 57 H Creatinine 2.64 H Estim Creat Clear Calc 15.6 Estimated GFR 17 POC Glucose Random Glucose 127 H Lactic Acid Calcium 8.9 Phosphorus Magnesium Total Bilirubin AST ALT Alkaline Phosphatase Total Protein Albumin Procalcitonin Microbiology Microbiology Results: Microbiology 08/26/24 15:32 Blood - Venous Blood Culture - Final No growth after 5 days. 08/26/24 15:32 Blood - Venous Blood Culture - Final No growth after 5 days. Procedures Date of Service Date of Service: 09/02/24 Assessment & Plan Assessment and plan (1) JEN (acute kidney injury): Status: Resolved (2) (HFpEF) heart failure with preserved ejection fraction: Status: Acute (3) CKD (chronic kidney disease) stage 3, GFR 30-59 ml/min: Status: Acute Plan Scr up multifactorial EJN: -cardio renal syndrome -ischemic acute tubular injury in the setting of hypoension benign urine sediment known CKD baseline Scr ~ 1.5 mg/dl h/o HFpEF REC c/w IV diuresis, would consider gtt given labile blood pressure keep MAP > 65 pressors + midodrine no indication for emergent 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 Progress Note: Quality Stroke Does the patient have a stroke diagnosis?: No
--- NOTE | 2024-09-02 12:45 | MHC.CM.PN ---
Pt remains in ICU: seen by nephrology re: HF: will start continuous diuresis. Pt from home w/[employer] and [facility] care. Will need transportation to home.
[2024-09-02] MEDS: methylPREDNISolone Sod Succ 40 MG/ML VIAL IVPUSH ×2 (13:23→23:36)
[2024-09-02] MEDS: Enoxaparin Sodium 80 MG/0.8 ML SYRINGE SUBCUT (18:30)
--- NOTE | 2024-09-02 18:55 | PC.NURSE ---
ICU Day #: 2? Neuro: .Alert & Oriented Respiratory: on BiPAP at the beginning of the shift, approx. @ 9am Transitioned to 1-2L NC, 02sat in low 90?s Cardiac: Afib, HR? 90?s -120s. Dr. ponce aware of the above vitals.? GI/: LBM 09/02, External catheter Skin: Stage 2 buttock, Venous stasis dermatitis Bl lower legs? (foam DGS applied) (reposition maintained) Infectious: on Ceftriaxone and Vancomycin? Lines: ?peripheral IVs.?
[2024-09-03] VITALS (21 sets, daily range): BP systolic 98–138; BP diastolic 47–97; PULSE 39–90; RESP 13–22; TEMP 36.1–37.2; O2SAT 90–97; BMI 31.4
[2024-09-03] MEDS: Piperacillin Sodium/Tazobactam 2.25 GM in 0.9 % Sodium Chloride 50 ML IV ×3 (05:14→17:53)
[2024-09-03] MEDS: Levothyroxine Sodium 100 MCG/5 ML VIAL 37.5 MCG IVPUSH (05:18)
[2024-09-03] MEDS: Pantoprazole Sodium 40 MG/10 ML VIAL IVPUSH (05:18)
[2024-09-03 05:33] LABS: VBG Base Excess 11.8 mmol/L; VBG HCO3 35 mmol/L (22-26); VBG pCO2 44 mmHg; VBG pH 7.51 (7.32-7.43); VBG pO2 83 mmHg
[2024-09-03 06:09] LABS: MANUAL DIFF FLAG NO
[2024-09-03 06:10] LABS: Basophils Percent Auto 0.2 % (0-2); Hematocrit 38.9 % (37.0-47.0); Hemoglobin 11.9 g/dl (12.0-16.0); Imm Gran Abs Auto 0.03 X10*3/uL (0.00-0.03); Imm Gran Pct Auto 0.5 % (0.0-0.4); Lymphocytes Percent Auto 15.7 % (20-40); Mean Corpuscular HGB Conc 30.6 g/dl (31.0-35.0); Mean Corpuscular Hemoglobin 28.5 pg (27.0-33.0); Mean Corpuscular Volume 93.3 fL (80.0-98.0); Mean Platelet Volume 11.3 fL (9.4-12.3); Monocytes Absolute Auto 0.2 X10*3/uL (0.1-1.2); Neutrophils Absolute Auto 5.1 x10*3/uL (2.0-8.3); Neutrophils Percent Auto 80.6 % (45-73); Platelet Count 172 X10*3/uL (160-400); Red Blood Count 4.17 X10*6/uL (4.20-5.50); Red Cell Distribution Width 13.6 % (11.0-16.0); White Blood Count 6.4 X10*3/uL (4.8-10.8)
[2024-09-03 06:16] LABS: INTERNATIONAL NORM RATIO 1.9 (0.9-1.1); Prothrombin Time 22.1 SEC (10.9-12.4)
[2024-09-03 06:24] LABS: Albumin Level 3.5 g/dL (3.5-5.0); Anion Gap 17 (12-20); Blood Urea Nitrogen 65 mg/dL (9-16); Calcium 9.1 mg/dL (8.4-10.2); Carbon Dioxide 31 mmol/L (22-29); Chloride 101 mmol/L (96-108); Creatinine Clr Calc Pharmacy 18.2; Estimated Glomerular Filt Rate 20; Glucose Random 140 mg/dL (60-115); Lactic Acid 0.9 mmol/L (0.5-2.0); Magnesium 2.2 mg/dL (1.6-2.6); Phosphorus 3.9 mg/dL (2.7-4.5); Potassium 4.7 mmol/L (3.3-5.1); Sodium 144 mmol/L (135-145)
[2024-09-03 06:24] LABS: Venous Blood Gas Refer to POC result
--- NOTE | 2024-09-03 08:26 | P.PNCC_ITS ---
Subjective Subjective Date of Service: 09/03/24 Interval History: no significant overnight events; off BiPAP 09/02 AM, placed on BiPAP 09/02 PM pending sleep study Critical Care Time (minutes): 0 Physical Exam 2 Vital Signs: Vital Signs: Last Vital Signs Temp 98.5 F 09/03/24 08:00 Pulse 69 09/03/24 08:00 Resp 22 H 09/03/24 08:00 BP 129/73 09/03/24 08:00 Pulse Ox 95 09/03/24 08:00 O2 Del Method BiPAP 09/03/24 08:00 O2 Flow Rate 2 09/03/24 02:00 FiO2 28 09/03/24 08:00 BMI result Body Mass Index 31.4 Const: General: cooperative, healthy appearing, comfortable, no acute distress, well developed, alert, awake and Physically active O rientation/consciousness: patient oriented x3 HEENT: Head: Yes normal to inspection, Yes normocephalic and Yes atraumatic Eyes: General: appearance normal, both eyes and all related structures Neck: Neck: Yes normal visual inspection, Yes full ROM, Yes no meningeal signs, Yes trachea midline and Yes supple Chest: Chest palpation & inspection: normal inspection of the chest Resp: Other: appreciable rhonchi; no appreciable overt rales, wheezing Effort & Inspection: normal respiratory effort Cardio: Rate: regular rate Rhythm: abnormal rhythm GI: Inspection: Yes normal to inspection, No Abdominal wall edema and No distended Palpation (GI): Soft to palpation, not firm, nontender, no guarding and not rigid Skin: Other: bilateral lower extremity changes, stable from yesterday Neuro: General: patient oriented x3, tone normal, moves all extremities, no meningeal signs and no focal motor deficits Extrem: Other: appreciable 2+ pitting edema to bilateral shins General: Yes full ROM and Yes capillary refill normal Psych: Appearance: grossly normal Objective Data Labs 09/03/24 05:23 09/03/24 05:23 Labs: Laboratory Results - last 24 hr 09/03/24 09/03/24 05:23 05:30 WBC 6.4 RBC 4.17 L Hgb 11.9 L Hct 38.9 MCV 93.3 MCH 28.5 MCHC 30.6 L RDW 13.6 Plt Count 172 MPV 11.3 Immature Gran % (Auto) 0.5 H Neut % (Auto) 80.6 H Lymph % (Auto) 15.7 L [place] % (Auto) 3.0 Eos % (Auto) 0.0 Baso % (Auto) 0.2 Lymph # (Auto) 1.0 L [place] # (Auto) 0.2 Eos # (Auto) 0.0 Baso # (Auto) 0.0 Abs Immat Gran (auto) 0.03 Absolute Neuts (auto) 5.1 Absolute Nucleated RBC 0.000 Nucleated RBC % (auto) 0.0 PT 22.1 H INR 1.9 H VBG pH 7.51 H VBG pCO2 44 VBG pO2 83 VBG HCO3 35 H VBG O2 Saturation 98.0 VBG Base Excess 11.8 Sodium 144 Potassium 4.7 Chloride 101 Carbon Dioxide 31 H Anion Gap 17 BUN 65 H Creatinine 2.31 H Estim Creat Clear Calc 18.2 Estimated GFR 20 Random Glucose 140 H Lactic Acid 0.9 Calcium 9.1 Phosphorus 3.9 Magnesium 2.2 Albumin 3.5 Microbiology Microbiology Results: Microbiology 09/01/24 17:31 Blood - Venous Blood Culture - Preliminary No growth after 24 hours. 09/01/24 17:30 Blood - Venous Blood Culture - Preliminary No growth after 24 hours. 08/26/24 15:32 Blood - Venous Blood Culture - Final No growth after 5 days. 08/26/24 15:32 Blood - Venous Blood Culture - Final No growth after 5 days. Progress Note: A&P Assessment and plan (1) Acute hypercapnic respiratory failure: Status: Acute (2) COPD (chronic obstructive pulmonary disease): Status: Acute (3) CHF (congestive heart failure): Status: Acute Plan Patient is a 84 Y F w/ chronic renal insufficiency, lower extremity lymphedema, hypothyroidism, hypertension, CHF c/b atrial fibrillation, COPD initially presenting to emergency department on 08/26 w/ dyspnea, thought to have CHF exacerbation, possible lower extremity cellulitis, admited medicine; on 09/01, patient developed hypercarbic respiratory failure, admitted ICU N: encephalopathy, likely toxic-metabolic, resolved CV: hypotension, though no overt evidence of shock, s/p norepinephrine gtt, on midodrine; atrial fibrillation on digoxin R: acute on chronic hypercarbic respiratory failure, likely multi-factorial, including CHF, COPD; BiPAP PM pending sleep study GI: cardiac diet : acute on chronic renal insufficiency; diuresis as tolerated; to closely monitor renal indices, electrolytes H: no acute issues; atrial fibrillation on enoxaparin SQ ID: empiric vanc/zosyn in setting of hypotension E: hypothyroidism on home levothyroxine P: no acute issues Quality Stroke Does the patient have a stroke diagnosis?: No VTE Prior VTE?: No VTE Risk Level:: Medical - moderate - high VTE Device Contraindication: N/A - Device Ordered VTE Drug Contraindication: N/A - Med Ordered
[2024-09-03] MEDS: Montelukast Sodium 10 MG TABLET PO (08:36)
[2024-09-03] MEDS: Midodrine HCl 10 MG TABLET PO ×3 (08:36→20:17)
[2024-09-03] MEDS: Furosemide 40 MG/4 ML VIAL IVPUSH ×2 (08:37→17:53)
[2024-09-03] MEDS: Digoxin 0.5 MG/2 ML AMPUL 0.25 MG IVPUSH (08:37)
[2024-09-03] MEDS: 0.9 % Sodium Chloride Flush 3 ML SYRINGE IVFLUSH ×3 (08:39→20:17)
[2024-09-03] MEDS: Fluticasone/Umeclidinium/Vilanterol 100/62.5/25 BLST.W.DEV 1 PUFF INHALE (08:43)
[2024-09-03] MEDS: Albuterol/Iprat 2.5/0.5MG 3 ML AMPUL.NEB INHALE ×4 (08:55→19:25)
--- NOTE | 2024-09-03 09:21 | PC.NURSE ---
ICU Day #: 3? Neuro: .Alert & Oriented Respiratory: on BiPAP upon initial assessment, approx. @ 08:30 Transitioned to RA, 02sat in? 90?s, LS clear. Cardiac: Afib, HR 80-90s.. Levophed gtt off last night. Currently on Midodrine per AUG. GI/: LBM 09/02, External catheter Skin: Stage 2 buttock, Venous stasis dermatitis Bl lower legs? (foam DGS applied) (reposition maintained) Infectious: on Ceftriaxone and Vancomycin? Lines: ?peripheral IVs.? Plan: Transfer to [facility]. No longer requiring ICU-level care. Bipap to be utilized nocturnal.
--- NOTE | 2024-09-03 10:39 | MHC.CLN ---
F/U PT WITH INCREASED NUTRITION RISK R/T PRESSURE INJURY DIET RX: CARDIAC RECOMMEND ENSURE MAX BID TO PROMOTE WOUND HEALING SUPP TO PROVIDE 300KCALS, 60G PROTEIN MONITOR PO INTAKE AND ENCOURAGE SUPPLEMENTS
[2024-09-03] MEDS: methylPREDNISolone Sod Succ 40 MG/ML VIAL IVPUSH (11:27)
[2024-09-03] MEDS: vancomycin HCL 500 MG in 0.9 % Sodium Chloride 100 ML 110 MG IV (11:27)
--- NOTE | 2024-09-03 13:06 | HO.WOUND ---
Wound Consult: Follow up 84yr old?female admitted to [facility] on 08/26/24 - See progress notes and H&P for detailed history.? Wound consult placed for Bilateral Lower Legs and buttock.? Patient agreeable to assessment and photo documentation.? Patient follows with outpt wound clinic recommend continued follow up at time of d/c. Bilateral lower Legs Etiology: ??Lymphdemea Present on Admission Wound Bed: No open areas noted at this time - recommend Ammonium Lactate cream to lower legs to aid in dry thickened tissue. Her lower leg skin texture is irregular. Betty wound: ? Thickened tissue, papillomatous plaques noted throughout both lower legs No Induration, Fluctuance or Warmth noted Pain: leg tenderness reported with movement Goals of Treatment: ? Elevate and Dry thickened skin treatment with Ammonium Lactet - TT to Provider. 09/03/24 08/28/24 Sacrum - Right Etiology: ??Stage 2 Pressure Injury POA Wound Bed: red pink moist clean tissue Edges: ? irregular Betty wound: ?improved MASD Chronic down to bilateral posterior thighs No Induration, Fluctuance or Warmth noted Pain: tenderness reported Goals of Treatment: ? off load pressure and Triad Recommendations: 1. Turn and Reposition every 2 hours and as needed for patient comfort.? Use pillows or wedges to support off loading positions. 2. Off Load all bony prominences with use of pillows and heel boots if needed.? Apply Preventative foams where needed. ? 3. Monitor for incontinence and moisture control, use barrier creams when needed for prevention and treatment. 4. Provide adequate and supplemental nutrition.? 5. Continue low air loss mattress. 6. When applicable maintain blood glucose levels per Providers order. 7. Bilateral Lower Legs - Elevate lower legs off of surface of bed with use of pillows.? Cleanse with Denisha Meno, Pat dry.? Apply Ammonium Lactate twice daily - per provider orders. 8. Sacrum - Off Load Pressure with Q2 hr turns and use of pillows - Cleanse with PH balance spray or wipes, pat dry. ?Apply thin layer of Triad to wound bed - only pat and dab no scrub and rub when soiling occurs. Reapply thin layer PRN after each episode of incontinence. Re-consult wound care Nurse for wound deterioration or wound changes.
--- NOTE | 2024-09-03 13:55 | PM.EVENT ---
Event Note Date of Service: 09/03/24 Event Note: Patient seen and examined: Shortness of breaths improving, patient is more awake and talking Physical exam and assessment and plan as per ICU note. Patient will need overnight sleep study. Patient will need Nephro, cardio follow-up before discharge please refer to my note 09/01/24 in addition to icu note. id eval added for ?pneumonia Time Spent With Patient Time: Total time managing care of this patient today ____ minutes.
[2024-09-03 15:29] LABS: Appearance Urine Clear; Color Urine Yellow; Glucose Urine UA Negative (Negative); Leukocyte Esterase Urine Negative (Negative); Nitrite Urine Negative (Negative); PH 6.5 (5.0-9.0); Specific Gravity - Urine 1.015 (1.005-1.025); UMIC TRIGGER UA YES; Urine Blood Moderate (2+) (Negative); Urine Ketones Negative (Negative); Urine Protein Negative (Neg-Trace)
[2024-09-03 15:34] LABS: Bacteria Urine None Seen (None Seen); Hyaline Casts Urine 0-2 /LPF (0-2); Squamous Epithelial Cell Urine 0-2 /HPF (0-2); WBC Urine 0-5 /HPF (0-5)
[2024-09-03 16:05] LABS: MRSA Nasal PCR NEGATIVE (Negative); SA Nasal PCR NEGATIVE (Negative)
[2024-09-03] MEDS: Warfarin Sodium 2.5 MG TABLET PO (17:53)
--- NOTE | 2024-09-03 23:40 | P.CNID_ITS ---
History of Present Illness Data of Consult Service Date: 09/03/24 Requesting physician: Annetta Feng Primary Care Provider: Elizabet Shannon MD HPI Reason for consult: pneumonia,sepsis concern She presents to ER on 08/26 with shortness of breath and leg swelling for two days. Legs were somewhat redder than usual and usually has some leakage. She had temperature to 100.7 on 09/01 and tachycardia to 90s She was started on Zosyn 09/01 and Vancomycin 09/03. She has retrocardiac infiltrate. Review of Systems 2 Review of Systems: Yes all other systems are reviewed and are negative [facility] Past Medical History Medical History (Updated 09/03/24 @ 23:45 by Eleni Kraus MD) Pneumonia Hypotension JEN (acute kidney injury) Tricuspid valve regurgitation Pulmonary hypertension Acute on chronic right heart failure Idiopathic hypotension Sepsis Cellulitis of right leg Lymphedema Non-healing wound of right lower extremity Venous stasis dermatitis of right lower extremity CHF (congestive heart failure) Hypothyroid Afib Asthma HTN (hypertension) Family History Family History Mother Gastric cancer Family history: reviewed and not pertinent Surgical History Surgical History S/P hip replacement Social History Social History Household Members: None Housing: Apartment Do you presently have visiting nurse or other home services: Yes (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) Alcohol intake: never Comment: sleeping in recliner Patient Tobacco Use Status: Never used Tobacco Second Hand Smoke Exposure: No Advance Directives Date on File: 02/05/21 service: No Current occupational status: disabled Meds Allergies Allergy/AdvReac Type Severity Reaction Status Date / Time lisinopril [LISINOPRIL] Allergy Unknown UNKNOWN Verified 08/26/24 14:54 simvastatin [SIMVASTATIN] Allergy Unknown UNKNOWN Verified 08/26/24 14:54 Active Medications: Current Medications Albuterol/Ipratropium (Albuterol/Iprat 2.5/0.5mg 3 Ml Ampul.Neb) 3 ml INHALE RQ4H WHILE AWAKE [facility] Last Admin: 09/03/24 19:25 Dose: 3 ml Digoxin (Digoxin 0.125 Mg Tablet) 0.125 mg PO DAILY [facility]; Protocol Fluticasone/Umeclidinium/Vilanterol (Fluticasone/Umeclidinium/Vilanterol 100/62.5 Blst.W.Dev) 1 puff INHALE RDAILY [facility] Last Admin: 09/03/24 08:43 Dose: 1 puff Furosemide (Furosemide 40 Mg/4 Ml Vial) 40 mg IVPUSH BID@0900,1800 [facility]; Protocol Last Admin: 09/03/24 17:53 Dose: 40 mg Piperacillin Sod/Tazobactam (Sod 2.25 gm/ Sodium Chloride) 50 mls @ 100 mls/hr IV Q6H [facility] Last Infusion: 09/03/24 18:25 Dose: Infused Vancomycin HCl 500 mg/ Sodium (Chloride) 110 mls @ 110 mls/hr IV Q24H [facility] Last Infusion: 09/03/24 12:28 Dose: Infused Lactic Acid (Ammonium Lactate 12 % Cream 140 Gm Tube) 1 appl TOPICAL DAILY PRN; Protocol PRN Reason: Dry Skin Levothyroxine Sodium (Levothyroxine Sodium 100 Mcg/5 Ml Vial) 37.5 mcg IVPUSH DAILY@0600 [facility] Last Admin: 09/03/24 05:18 Dose: 37.5 mcg Methylprednisolone Sodium Succinate (Methylprednisolone Sod Succ 40 Mg/Ml Vial) 40 mg IVPUSH Q12H [facility] Last Admin: 09/03/24 11:27 Dose: 40 mg Midodrine (Midodrine Hcl 10 Mg Tablet) 10 mg PO TID [facility] Last Admin: 09/03/24 20:17 Dose: 10 mg Montelukast Sodium (Montelukast Sodium 10 Mg Tablet) 10 mg PO DAILY [facility] Last Admin: 09/03/24 08:36 Dose: 10 mg Pantoprazole Sodium (Pantoprazole Sodium 40 Mg/10 Ml Vial) 40 mg IVPUSH DAILY@0630 [facility] Last Admin: 09/03/24 05:18 Dose: 40 mg Pharmacy Consult (Consult Rx Vancomycin Dosing) 1 each MISCELLANE DAILY PRN PRN Reason: Consult order Sodium Chloride (0.9 % Sodium Chloride Flush 3 Ml Syringe) 3 ml IVFLUSH QSHIFT [facility] Last Admin: 09/03/24 20:17 Dose: 3 ml Warfarin Sodium (Warfarin Sodium 2.5 Mg Tablet) 2.5 mg PO DAILY@1800 [facility] Last Admin: 09/03/24 17:53 Dose: 2.5 mg Home Medications ?Medication ?Instructions ?Recorded ?Confirmed ?Last Taken ?Type cholecalciferol (vitamin D3) 50 50 mcg PO DAILY 02/04/21 08/26/24 08/26/24 History mcg (2,000 unit) capsule (Vitamin D3) loratadine 10 mg tablet 10 mg PO DAILY 02/04/21 08/26/24 08/26/24 History omeprazole 20 mg capsule,delayed 20 mg PO DAILY@0630 02/04/21 08/26/24 08/26/24 History release fluticasone fur. 100 mcg-umeclid 1 puff inhalation DAILY 05/03/21 08/26/24 08/26/24 History 62.5 mcg-vilant 25 mcg inhalat.powder (Trelegy Ellipta) albuterol sulfate 2.5 mg/3 mL 2.5 mg inhalation Q4H PRN 08/09/21 08/26/24 Unknown History (0.083 %) solution for nebulization Shortness Of Breath montelukast 10 mg tablet 1 tab PO DAILY 08/09/21 08/26/24 08/26/24 History cyanocobalamin (vitamin B-12) 1,000 mcg PO DAILY 05/29/24 08/26/24 08/26/24 History 1,000 mcg tablet diltiazem HCl 240 mg 240 mg PO DAILY 05/29/24 08/26/24 08/26/24 History capsule,extended release 24 hr levothyroxine 75 mcg tablet 75 mcg PO DAILY@0600 05/29/24 08/26/24 08/26/24 History torsemide 20 mg tablet 40 mg PO BID 08/26/24 08/26/24 08/26/24 History warfarin 5 mg tablet 2.5 mg PO DAILY@1800 08/26/24 08/26/24 08/25/24 History Physical Exam 2 Vital Signs: Vital Signs: Last Vital Signs Temp 98.6 F 09/03/24 23:29 Pulse 89 09/03/24 23:29 Resp 16 09/03/24 23:29 BP 138/77 09/03/24 23:29 Pulse Ox 92 09/03/24 23:29 O2 Del Method Room Air 09/03/24 23:29 O2 Flow Rate 2 09/03/24 02:00 FiO2 28 09/03/24 08:00 BMI result Body Mass Index 31.4 Const: General: cooperative HEENT: Head: Yes normal to inspection Face and sinus: Yes normal facial exam Mouth: Normal oral and palatal mucosa present Teeth and gingiva: d entition normal Eyes: General: appearance normal, both eyes and all related structures P upils: Equal, round and reactive pupils present Resp: Effort & Inspection: normal respiratory effort Cardio: Rate: regular rate Rhythm: regular rhythm GI: Palpation (GI): Soft to palpation and nontender : General: Yes no CVA tenderness Back/Spine/Pelvis: Back: no CVA tenderness Skin: General skin exam: no rashes or lesions noted Neuro: General: moves all extremities Cranial nerves: Yes Equal, round and reactive pupils present Extrem: Other: plus two swelling,no cellulitis legs Psych: Appearance: grossly normal Results Labs 09/03/24 05:23 09/03/24 05:23 Labs: Short CBC 09/03/24 Range/Units 05:23 WBC 6.4 (4.8-10.8) X10*3/uL Hgb 11.9 L (12.0-16.0) g/dl Hct 38.9 (37.0-47.0) % Plt Count 172 (160-400) X10*3/uL BMP 09/03/24 05:23 Sodium 144 Potassium 4.7 Chloride 101 Carbon Dioxide 31 H BUN 65 H Creatinine 2.31 H Calcium 9.1 Liver Function 09/03/24 Range/Units 05:23 Albumin 3.5 (3.5-5.0) g/dL Urine 09/03/24 Range/Units 15:06 Urine Color Yellow Urine Appearance Clear Urine pH 6.5 (5.0-9.0) Ur Specific [place] 1.015 (1.005-1.025) Urine Protein Negative (Neg-Trace) mg/dL Urine Glucose (UA) Negative (Negative) mg/dL Microbiology Microbiology Results: Microbiology 09/01/24 17:30 Blood - Venous Blood Culture - Preliminary No growth after 48 hours. 09/01/24 17:31 Blood - Venous Blood Culture - Preliminary No growth after 48 hours. 08/26/24 15:32 Blood - Venous Blood Culture - Final No growth after 5 days. 08/26/24 15:32 Blood - Venous Blood Culture - Final No growth after 5 days. Assessment and Plan (1) COPD (chronic obstructive pulmonary disease): Status: Acute (2) Pneumonia: Status: Acute Plan She has shortness of breath on admission and retrocardiac infiltrate apparent,likely smoldering pneumonia No MRSA seen Resolving cellulitis Continue Zosyn 3-5 days approximately. Stop Vancomycin as MRSA nares negative.
[2024-09-04] VITALS (12 sets, daily range): BP systolic 124–156; BP diastolic 64–82; PULSE 70–92; RESP 16–21; TEMP 36.3–37.6; O2SAT 92–98; BMI 31.4
[2024-09-04] MEDS: methylPREDNISolone Sod Succ 40 MG/ML VIAL IVPUSH ×2 (00:48→14:00)
[2024-09-04] MEDS: Piperacillin Sodium/Tazobactam 2.25 GM in 0.9 % Sodium Chloride 50 ML IV ×4 (00:48→17:15)
[2024-09-04] MEDS: Pantoprazole Sodium 40 MG/10 ML VIAL IVPUSH (04:56)
[2024-09-04] MEDS: Levothyroxine Sodium 100 MCG/5 ML VIAL 37.5 MCG IVPUSH (04:56)
[2024-09-04 06:22] LABS: MANUAL DIFF FLAG NO
[2024-09-04 06:25] LABS: Hematocrit 38.2 % (37.0-47.0); Hemoglobin 12.1 g/dl (12.0-16.0); Imm Gran Abs Auto 0.04 X10*3/uL (0.00-0.03); Imm Gran Pct Auto 0.7 % (0.0-0.4); Lymphocytes Absolute Auto 0.8 X10*3/uL (1.2-4.9); Lymphocytes Percent Auto 13.6 % (20-40); Mean Corpuscular HGB Conc 31.7 g/dl (31.0-35.0); Mean Corpuscular Hemoglobin 29.4 pg (27.0-33.0); Mean Corpuscular Volume 92.7 fL (80.0-98.0); Mean Platelet Volume 10.9 fL (9.4-12.3); Monocytes Absolute Auto 0.2 X10*3/uL (0.1-1.2); Monocytes Percent Auto 3.1 % (2-11); Neutrophils Absolute Auto 4.8 x10*3/uL (2.0-8.3); Neutrophils Percent Auto 82.6 % (45-73); Platelet Count 178 X10*3/uL (160-400); Red Blood Count 4.12 X10*6/uL (4.20-5.50); Red Cell Distribution Width 13.8 % (11.0-16.0); White Blood Count 5.8 X10*3/uL (4.8-10.8)
[2024-09-04 06:31] LABS: INTERNATIONAL NORM RATIO 1.5 (0.9-1.1); Prothrombin Time 17.9 SEC (10.9-12.4)
[2024-09-04 06:39] LABS: Anion Gap 16 (12-20); Blood Urea Nitrogen 69 mg/dL (9-16); Calcium 9.2 mg/dL (8.4-10.2); Carbon Dioxide 31 mmol/L (22-29); Chloride 101 mmol/L (96-108); Creatinine Clr Calc Pharmacy 20.1; Estimated Glomerular Filt Rate 23; Glucose Random 138 mg/dL (60-115); Magnesium 2.1 mg/dL (1.6-2.6); Phosphorus 3.3 mg/dL (2.7-4.5); Potassium 4.7 mmol/L (3.3-5.1); Sodium 143 mmol/L (135-145)
[2024-09-04] MEDS: Albuterol/Iprat 2.5/0.5MG 3 ML AMPUL.NEB INHALE ×4 (07:38→20:28)
[2024-09-04] MEDS: Montelukast Sodium 10 MG TABLET PO (09:05)
[2024-09-04] MEDS: Furosemide 40 MG/4 ML VIAL IVPUSH ×2 (09:05→17:15)
[2024-09-04] MEDS: Midodrine HCl 10 MG TABLET PO ×2 (09:05→20:44)
[2024-09-04] MEDS: Metoprolol Tartrate 12.5 MG HALFTAB PO ×2 (09:05→20:45)
[2024-09-04] MEDS: 0.9 % Sodium Chloride Flush 3 ML SYRINGE IVFLUSH ×2 (09:06→17:15)
--- NOTE | 2024-09-04 11:31 | MHC.CM.PN ---
EMR REVIEWED, PT W/ACUTE HF/JEN/HYPOTHERMIA, PER HOSPITALIST PLAN FOR PT TO CONT IV DIURESIS MAY BE CLEARED FOR DC TOMORROW 09/05, [facility] REFERRAL SENT TO [facility] HAS PT SHORTAGE, CM WILL CONT TO FOLLOW DC NEEDS.
--- NOTE | 2024-09-04 11:38 | MHC.CLN ---
F/U PT WITH INCREASED NUTRITION RISK R/T PRESSURE INJURY PT TRANSFERRED TO MEDICAL FLOOR PO INTAKE VARIABLE RANGING FROM 25-100% WHICH IS TYPICAL FOR PT DIET RX: CARDIAC RECEIVING ENSURE MAX BID TO PROMOTE WOUND HEALING SUPP PROVIDES 300KCALS, 60G PROTEIN MONITOR PO INTAKE AND ENCOURAGE SUPPLEMENTS
--- NOTE | 2024-09-04 12:13 | P.PNIM_ITS ---
Subjective Subjective Date of Service: 09/04/24 Interval History: feeling much better Physical Exam 2 Vital Signs: Vital Signs: Last Vital Signs Temp 97.4 F 09/04/24 11:13 Pulse 70 09/04/24 11:49 Resp 17 09/04/24 11:49 BP 148/76 H 09/04/24 11:13 Pulse Ox 94 09/04/24 11:13 O2 Del Method Room Air 09/04/24 11:13 O2 Flow Rate 2 09/03/24 02:00 FiO2 28 09/03/24 08:00 BMI result Body Mass Index 31.4 General: AO X 3, no acute distress Resp: CTA bilateral, no accessory muscles used CVS: S1,S2,RRR GI: soft, non tender, non distended Neuro: motor grossly intact, alert Psych: appropriate affect, appropriate insight Objective Data Active Medications Albuterol/Ipratropium (Albuterol/Iprat 2.5/0.5mg 3 Ml Ampul.Neb) 3 ml INHALE RQ4H WHILE AWAKE [facility] Last Admin: 09/04/24 11:49 Dose: 3 ml Documented By: TERI Fluticasone/Umeclidinium/Vilanterol (Fluticasone/Umeclidinium/Vilanterol 100/62.5/25 Blst.W.Dev) 1 puff INHALE RDAILY [facility] Last Admin: 09/04/24 07:38 Dose: Not Given Documented By: TERI Non-Admin Reason: pt on bipap Furosemide (Furosemide 40 Mg/4 Ml Vial) 40 mg IVPUSH BID@0900,1800 [facility]; Protocol Last Admin: 09/04/24 09:05 Dose: 40 mg Documented By: YUMI Piperacillin Sod/Tazobactam (Sod 2.25 gm/ Sodium Chloride) 50 mls @ 100 mls/hr IV Q6H [facility] Last Infusion: 09/04/24 05:40 Dose: Infused Documented By: KARY Lactic Acid (Ammonium Lactate 12 % Cream 140 Gm Tube) 1 appl TOPICAL DAILY PRN; Protocol PRN Reason: Dry Skin Levothyroxine Sodium (Levothyroxine Sodium 100 Mcg/5 Ml Vial) 37.5 mcg IVPUSH DAILY@0600 [facility] Last Admin: 09/04/24 04:56 Dose: 37.5 mcg Documented By: KARY Methylprednisolone Sodium Succinate (Methylprednisolone Sod Succ 40 Mg/Ml Vial) 40 mg IVPUSH Q12H [facility] Last Admin: 09/04/24 00:48 Dose: 40 mg Documented By: KARY Metoprolol Tartrate (Metoprolol Tartrate 12.5 Mg Halftab) 12.5 mg PO BID [facility]; Protocol Last Admin: 09/04/24 09:05 Dose: 12.5 mg Documented By: YUMI Midodrine (Midodrine Hcl 10 Mg Tablet) 10 mg PO TID [facility] Last Admin: 09/04/24 09:05 Dose: 10 mg Documented By: YUMI Montelukast Sodium (Montelukast Sodium 10 Mg Tablet) 10 mg PO DAILY [facility] Last Admin: 09/04/24 09:05 Dose: 10 mg Documented By: YUMI Pharmacy Consult (Consult Rx Vancomycin Dosing) 1 each MISCELLANE DAILY PRN PRN Reason: Consult order Sodium Chloride (0.9 % Sodium Chloride Flush 3 Ml Syringe) 3 ml IVFLUSH QSHIFT [facility] Last Admin: 09/04/24 09:06 Dose: 3 ml Documented By: YUMI Warfarin Sodium (Warfarin Sodium 2.5 Mg Tablet) 2.5 mg PO DAILY@1800 [facility] Warfarin Sodium (Warfarin Sodium 5 Mg Tablet) 5 mg PO ONCE@1800 ONE Stop: 09/04/24 18:01 Labs 09/04/24 06:14 09/04/24 06:14 Labs: Laboratory Results - last 24 hr 09/03/24 09/03/24 09/04/24 12:45 15:06 06:14 MCV 92.7 MCH 29.4 MCHC 31.7 RDW 13.8 Plt Count 178 MPV 10.9 Immature Gran % (Auto) 0.7 H Neut % (Auto) 82.6 H Lymph % (Auto) 13.6 L Coffee % (Auto) 3.1 Eos % (Auto) 0.0 Baso % (Auto) 0.0 Lymph # (Auto) 0.8 L Coffee # (Auto) 0.2 Eos # (Auto) 0.0 Baso # (Auto) 0.0 Abs Immat Gran (auto) 0.04 H Absolute Neuts (auto) 4.8 Absolute Nucleated RBC 0.000 Nucleated RBC % (auto) 0.0 PT 17.9 H INR 1.5 H Anion Gap 16 Estim Creat Clear Calc 20.1 Estimated GFR 23 Random Glucose 138 H Calcium 9.2 Phosphorus 3.3 Magnesium 2.1 Urine Color Yellow Urine Appearance Clear Urine pH 6.5 Ur Specific [place] 1.015 Urine Protein Negative Urine Glucose (UA) Negative Urine Ketones Negative Urine Blood Moderate (2+) H Urine Nitrite Negative Ur Leukocyte Esterase Negative Urine RBC 11-20 H Urine WBC 0-5 Ur Squamous Epith Cells 0-2 Urine Bacteria None Seen Hyaline Casts 0-2 Nasal Screen MRSA (PCR) NEGATIVE Nasal S. aureus Screen NEGATIVE Nasal MRSA/S.aureus Interp SEE NOTE Microbiology Microbiology Results: Microbiology 09/01/24 17:30 Blood Culture - Preliminary Blood - Venous No growth after 48 hours. 09/01/24 17:31 Blood Culture - Preliminary Blood - Venous No growth after 48 hours. Assessment and Plan (1) Acute hypercapnic respiratory failure: Status: Acute Plan 84F PMH CKD 3, chronic lower extremity lymphedema, hypothyroid, hypertension, COPD/moderate persistent asthma, chronic AFib, chronic diastolic CHF, initially presented 08/26/2024 with hypothermia, hypotension and acute kidney injury on CKD 3 with acute on chronic diastolic CHF was given IV Lasix hypothermia resolved, renal function worsened so Lasix was held. On 09/01/2024 course was complicated by acute hypercapnic respiratory failure and transferred to the intensive care unit patient was treated with BiPAP and IV diuresis and did well, was weaned to room air and downgraded on 09/03/2024. Hypothermia, hypotension Brief episode, resolved Acute metabolic encephalopathy due to acute hypoxic and hypercapnic respiratory failure due to COPD/moderate persistent asthma with acute decompensation Now on room air, follow up sleep study, check a.m. VBG Steroids, bronchodilators Acute on chronic diastolic CHF Continue IV Lasix, monitor Bmp Acute kidney injury on CKD 3 Creatinine improving with diuresis, monitor closely Chronic AFib Continue warfarin, metoprolol Aspiration pneumonitis versus bacterial aspiration pneumonia Continue IV Zosyn for 5 day total, end 09/05/2024 Hypothyroid Levothyroxine DVT prophylaxis on warfarin Full code reason for continued hospitalization: IV diuresis Quality Stroke Does the patient have a stroke diagnosis?: No VTE Prior VTE?: No VTE Risk Level:: Medical - moderate - high VTE Device Contraindication: N/A - Device Ordered VTE Drug Contraindication: N/A - Med Ordered
[2024-09-04] MEDS: Warfarin Sodium 5 MG TABLET PO (17:15)
[2024-09-05] MEDS: methylPREDNISolone Sod Succ 40 MG/ML VIAL IVPUSH ×2 (00:07→11:51)
[2024-09-05] MEDS: Piperacillin Sodium/Tazobactam 2.25 GM in 0.9 % Sodium Chloride 50 ML IV ×3 (00:07→11:51)
[2024-09-05 03:57] VITALS: BP 164/87; PULSE 86; RESP 16; TEMP 37.1; O2SAT 92
[2024-09-05] MEDS: Levothyroxine Sodium 100 MCG/5 ML VIAL 37.5 MCG IVPUSH (05:23)
[2024-09-05] MEDS: Fluticasone/Umeclidinium/Vilanterol 100/62.5/25 BLST.W.DEV 1 PUFF INHALE (07:39)
[2024-09-05 07:40] VITALS: PULSE 86; RESP 16; O2SAT 93
[2024-09-05] MEDS: Albuterol/Iprat 2.5/0.5MG 3 ML AMPUL.NEB INHALE ×2 (07:40→11:19)
[2024-09-05 07:53] VITALS: BP 143/87; PULSE 82; RESP 18; TEMP 36.7; O2SAT 93
[2024-09-05] MEDS: Furosemide 40 MG/4 ML VIAL IVPUSH (08:17)
[2024-09-05] MEDS: Montelukast Sodium 10 MG TABLET PO (08:17)
[2024-09-05] MEDS: Metoprolol Tartrate 12.5 MG HALFTAB PO (08:17)
[2024-09-05] MEDS: 0.9 % Sodium Chloride Flush 3 ML SYRINGE IVFLUSH (08:17)
[2024-09-05 09:39] LABS: VBG Base Excess 12.1 mmol/L; VBG HCO3 37 mmol/L (22-26); VBG pCO2 49 mmHg; VBG pH 7.48 (7.32-7.43); VBG pO2 44 mmHg
[2024-09-05 09:40] LABS: Hematocrit 41.6 % (37.0-47.0); Mean Corpuscular HGB Conc 31.3 g/dl (31.0-35.0); Mean Corpuscular Volume 92.9 fL (80.0-98.0); Mean Platelet Volume 11.4 fL (9.4-12.3); Platelet Count 205 X10*3/uL (160-400); Red Blood Count 4.48 X10*6/uL (4.20-5.50); Red Cell Distribution Width 13.7 % (11.0-16.0); Venous Blood Gas Refer to POC result; White Blood Count 4.9 X10*3/uL (4.8-10.8)
[2024-09-05 09:46] LABS: INTERNATIONAL NORM RATIO 1.4 (0.9-1.1); Prothrombin Time 16.4 SEC (10.9-12.4)
[2024-09-05 09:52] LABS: Anion Gap 18 (12-20); Blood Urea Nitrogen 81 mg/dL (9-16); Carbon Dioxide 32 mmol/L (22-29); Chloride 99 mmol/L (96-108); Creatinine Clr Calc Pharmacy 20.1; Estimated Glomerular Filt Rate 23; Glucose Random 143 mg/dL (60-115); Potassium 4.1 mmol/L (3.3-5.1); Sodium 145 mmol/L (135-145)
--- NOTE | 2024-09-05 10:41 | P.DS_ITS ---
DS: Providers Provider Date of Service: 09/05/24 Date of admission: 08/26/24 17:33 Date of discharge: 09/05/24 Primary care physician: Elizabet Shannon MD Consults: 08/26/24 17:51 Consult to Wound Care Routine Reason for consultation: b/l LE lymphedema with chronic wounds; gluteal cleft ?friction injury 08/27/24 09:22 Consult to Nephrology Routine Consulting Provider: [facility] Reason for consultation: William on ckd Has provider been notified: No 08/28/24 12:56 Consult to Cardiology Routine Consulting Provider: [facility] Reason for consultation: bradycardia with pauses 4sec Has provider been notified: No 09/03/24 13:56 Consult to Infectious Diseases Routine Consulting Provider: [facility] Reason for consultation: pneumonia Has provider been notified: No DS: Diagnosis Discharge Diagnosis (1) Acute hypercapnic respiratory failure: Status: Acute DS: Summary Hospital Course Hospital Course: from initial hpi: 84-year-old [place]alese-speaking female who was sent to the emergency department due to low blood pressure. History was obtained through the assistance of a laboratory apparatus glass blower and the patient's son at the bedside. The patient had been sleepy today and reporting shortness of breath over the past 1 week. The family called a home urgent care service to, evaluate her. During their evaluation her blood pressure was noted to be low so they called the ambulance and she was brought to the emergency room for evaluation. On arrival in the emergency department her blood pressure was soft but stable. She was noted to be hypothermic with a temperature of 93.5 degrees. Creatinine of 1.98 is slightly above baseline. Chest x-ray showed cardiomegaly with CHF, BNP 189. For this she received a dose of IV Lasix. The cause of her hypothermia was unclear, TSH was normal. Possible lower extremity cellulitis with sided and she received IV Zosyn. Patient denies any fever. she has history of lower extremity lymphedema and does report increased swelling of both legs. hospital course: Patient was initially admitted for a brief episode of hypothermia and hypotension which resolved. Also complicated by acute kidney injury on CKD 3, acute on chronic diastolic CHF. Was given IV Lasix and then course complicated by acute hypoxic and hypercapnic respiratory failure complicated by acute metabolic encephalopathy due to COPD/moderate persistent asthma with acute decompensation. Was admitted to the ICU on 09/01/2024 for BiPAP and IV diuresis and improved. Patient was downgraded 09/03/2024 and taken off oxygen and mental status back to normal. Patient had sleep study which should be followed up outpatient. Creatinine improved to baseline after diuresis. For chronic AFib was continued on warfarin and metoprolo, on discharge will restart patient's maintenance diltiazem. While patient was in the ICU had low-grade fever, seen by infectious disease who felt this is likely aspiration pneumonitis versus bacterial aspiration pneumonia. Was treated with 5 days of IV Zosyn. For hypothyroid continued on levothyroxine. Patient is feeling much better and will be discharged home. Time Attestation Discharge Coordination Time (in mins): 33 Quality: Safe Use of Opioids Does Pt have an Active Cancer Diagnosis on the Problem List?: No Quality: Stroke Does the patient have a stroke diagnosis?: No Physical Exam Vital Signs: Vital Signs: Last Vital Signs Temp 98.1 F 09/05/24 07:53 Pulse 82 09/05/24 07:53 Resp 18 09/05/24 07:53 BP 143/87 H 09/05/24 07:53 Pulse Ox 93 09/05/24 07:53 O2 Del Method Room Air 09/05/24 07:53 O2 Flow Rate 2 09/05/24 03:57 FiO2 28 09/03/24 08:00 BMI result Body Mass Index 31.4 General: AO X 3, no acute distress Resp: CTA bilateral, no accessory muscles used CVS: S1,S2,RRR GI: soft, non tender, non distended Neuro: motor grossly intact, alert Psych: appropriate affect, appropriate insight DS: Data Data Completed and Pending Labs on day of discharge: Laboratory Results - last 24 hr 09/05/24 09/05/24 09:25 09:34 WBC 4.9 RBC 4.48 Hgb 13.0 Hct 41.6 MCV 92.9 MCH 29.0 MCHC 31.3 RDW 13.7 Plt Count 205 MPV 11.4 Absolute Nucleated RBC 0.000 Nucleated RBC % (auto) 0.0 PT 16.4 H INR 1.4 H VBG pH 7.48 H VBG pCO2 49 VBG pO2 44 VBG HCO3 37 H VBG O2 Saturation 73.0 VBG Base Excess 12.1 Sodium 145 Potassium 4.1 Chloride 99 Carbon Dioxide 32 H Anion Gap 18 BUN 81 H Creatinine 2.08 H Estim Creat Clear Calc 20.1 Estimated GFR 23 Random Glucose 143 H Calcium 9.0 Magnesium 2.0 Preliminary micro results at discharge 09/01/24 17:30 Blood Culture - Preliminary Blood - Venous No growth after 48 hours. 09/01/24 17:31 Blood Culture - Preliminary Blood - Venous No growth after 48 hours. Discharge Plan Discharge Anticipated Discharge Date/Time: 09/05/24 10:38 Patient Disposition: Home Health Service Discharge Diagnosis: chf, copd Referrals: [facility] [Outside] - 1 Week Physician,Unknown J [Physician] - 1 Week Discharge Medications: Continued omeprazole 20 mg capsule,delayed release(DR/EC) 20 mg PO DAILY@0630 loratadine 10 mg tablet 10 mg PO DAILY cholecalciferol (vitamin D3) [Vitamin D3] 50 mcg (2,000 unit) capsule 50 mcg PO DAILY Trelegy Ellipta 100-62.5-25 mcg blister with device 1 puff inhalation DAILY albuterol sulfate 2.5 mg /3 mL (0.083 %) solution for nebulization 2.5 mg inhalation Q4H PRN (Reason: Shortness Of Breath) montelukast 10 mg tablet 1 tab PO DAILY torsemide 20 mg tablet 40 mg PO BID warfarin 5 mg tablet 2.5 mg PO DAILY@1800 diltiazem HCl 240 mg capsule,extended release 24hr 240 mg PO DAILY cyanocobalamin (vitamin B-12) 1,000 mcg tablet 1,000 mcg PO DAILY levothyroxine 75 mcg tablet 75 mcg PO DAILY@0600 Discharge Orders: Discharge Order (Routine); Ordered 09/05/24 Ordered By: Wayne Fields Diet: Advance to usual diet Activity on Discharge: As tolerated Stand Alone Forms: Patient Portal Discharge page Print Language: Senegalese Care Plan Goals: recovery Health Concerns: chf, copd, hodan Plan of Treatment: follow up sleep study Assessment: see above
--- NOTE | 2024-09-05 10:55 | P.F2F_ITS ---
Service Date Service Date: 09/05/24 Encounter Date of encounter: 09/05/24 Reasons for Services Signs and symptoms assessed: unsteady Reason for physical therapy: home safety and mobility and therapeutic exercises Homebound: Leaving the home is medically contraindicated at this time without the asist of a device and/or another person due th the listed conditions above and below. Reason homebound: unsteady gait / fall risk Certification: Based on the above findings, I certify that this patient is confined to the home and needs intermittent correction care, physical therapy and/or speech therapy, or continues to need occupational therapy. The patient is under my care, and I have initiated the establishment of the plan of care. The patient will be followed by a physician who will periodically review the plan of care. Time Spent With Patient Time: Total time managing care of this patient today ____ minutes.
--- NOTE | 2024-09-05 10:56 | MHC.CM.PN ---
Second IMM 09/05/24, Pt has been medically cleared to DC to home today with [facility] services from [facility]. Her dtr will transport her home.
[2024-09-05 11:21] VITALS: PULSE 88; RESP 18; O2SAT 91
[2024-09-05 11:23] VITALS: BP 151/61; PULSE 72; RESP 18; TEMP 37.2; O2SAT 97
--- NOTE | 2024-09-05 11:42 | P.PNNP_ITS ---
Subjective Subjective Date of Service: 09/05/24 Principal diagnosis: Decompensated congestive heart failure Interval history: feeling much better Physical Exam 2 Vital Signs: Vital Signs: Last Vital Signs Temp 98.9 F 09/05/24 11:23 Pulse 72 09/05/24 11:23 Resp 18 09/05/24 11:23 BP 151/61 H 09/05/24 11:23 Pulse Ox 97 09/05/24 11:23 O2 Del Method Room Air 09/05/24 11:23 O2 Flow Rate 2 09/05/24 03:57 FiO2 28 09/03/24 08:00 BMI result Body Mass Index 31.4 cvs : s1s2 RS; cta ABd; soft Objective Data Labs 09/05/24 09:25 09/05/24 09:25 Labs: Laboratory Results - last 24 hr 09/05/24 09/05/24 09:25 09:34 WBC 4.9 RBC 4.48 Hgb 13.0 Hct 41.6 MCV 92.9 MCH 29.0 MCHC 31.3 RDW 13.7 Plt Count 205 MPV 11.4 Absolute Nucleated RBC 0.000 Nucleated RBC % (auto) 0.0 PT 16.4 H INR 1.4 H VBG pH 7.48 H VBG pCO2 49 VBG pO2 44 VBG HCO3 37 H VBG O2 Saturation 73.0 VBG Base Excess 12.1 Sodium 145 Potassium 4.1 Chloride 99 Carbon Dioxide 32 H Anion Gap 18 BUN 81 H Creatinine 2.08 H Estim Creat Clear Calc 20.1 Estimated GFR 23 Random Glucose 143 H Calcium 9.0 Magnesium 2.0 Microbiology Microbiology Results: Microbiology 09/01/24 17:30 Blood - Venous Blood Culture - Preliminary No growth after 48 hours. 09/01/24 17:31 Blood - Venous Blood Culture - Preliminary No growth after 48 hours. 08/26/24 15:32 Blood - Venous Blood Culture - Final No growth after 5 days. 08/26/24 15:32 Blood - Venous Blood Culture - Final No growth after 5 days. Procedures Date of Service Date of Service: 09/05/24 Assessment & Plan Assessment and plan (1) CHF (congestive heart failure): Status: Acute (2) CKD (chronic kidney disease) stage 3, GFR 30-59 ml/min: Status: Acute Plan Scr up multifactorial JEN: -cardio renal syndrome -ischemic acute tubular injury in the setting of hypoension benign urine sediment known CKD baseline Scr ~ 1.5 mg/dl- cr up to 2 in the setting of diuresis, expect to improve after dc h/o HFpEF REC IV diuresis, switch to po and plan dc keep MAP > 65 monitor urine output will fu in office to ensure return of renal function to baseline Time Spent With Patient Time: Total time managing care of this patient today ____ minutes. Progress Note: Quality Stroke Does the patient have a stroke diagnosis?: No
== END 2024-09-05 14:47 | disposition home health service (06) | DRG 291 ==
LOC: HO.ED 17:16 → HO.EDOVER 17:39 → HO.IMC 08-27 07:31 → HO.ICU 09-01 20:02 → HO.IMC 09-03 08:41
PROVIDERS: Internal Medicine; Internal Medicine Critical Care Medicine; Nurse Practitioner Family; Physician Assistant; Physician Assistant Medical; Admitting Provider Physician Assistant Medical; Emergency Provider Student in an Organized Health Care Education/Training Program; PCP Student in an Organized Health Care Education/Training Program; Visit Provider Internal Medicine
DX: I13.0 Hypertensive heart and chronic kidney disease with heart failure and stage 1 through stage 4 chronic kidney disease, or unspecified chronic kidney disease (principal); G93.41 Metabolic encephalopathy; I50.33 Acute on chronic diastolic (congestive) heart failure; J96.21 Acute and chronic respiratory failure with hypoxia; J96.22 Acute and chronic respiratory failure with hypercapnia; J69.0 Pneumonitis due to inhalation of food and vomit; N17.9 Acute kidney failure, unspecified; J45.41 Moderate persistent asthma with (acute) exacerbation; L03.115 Cellulitis of right lower limb; E03.9 Hypothyroidism, unspecified; I49.5 Sick sinus syndrome; I89.0 Lymphedema, not elsewhere classified; R79.1 Abnormal coagulation profile; R68.0 Hypothermia, not associated with low environmental temperature; I95.9 Hypotension, unspecified; N18.30 Chronic kidney disease, stage 3 unspecified; I07.1 Rheumatic tricuspid insufficiency; I48.0 Paroxysmal atrial fibrillation; I87.2 Venous insufficiency (chronic) (peripheral); E66.01 Morbid (severe) obesity due to excess calories; L89.152 Pressure ulcer of sacral region, stage 2; Z68.31 Body mass index [BMI] 31.0-31.9, adult; Z20.822 Contact with and (suspected) exposure to COVID-19; Z79.01 Long term (current) use of anticoagulants; Z79.890 Hormone replacement therapy; Z79.899 Other long term (current) drug therapy
CPT/HCPCS: 0241U; 36415; 36600; 71045; 73560; 80048; 80053; 81001; 81003; 82040; 82533; 82803; 82947; 83605; 83735; 83880; 84100; 84145; 84155; 84300; 84443; 84484; 85025; 85027; 85610; 85730; 87040; 87633; 87640; 87641; 93005; 93306; 94640; 94660; 97116; 97163; 97530; 99285; J0651; J1160; J1650; J1720; J1940; J2405; J2470; J2543; J2919; J3370; P9047

== ENCOUNTER → 2024-08-26 14:50 | Outpatient (BNV) | payer OTHER, SELFPAY | PROVIDERS: Admitting Provider Physician Assistant Medical; Emergency Provider Student in an Organized Health Care Education/Training Program; Visit Provider Internal Medicine Cardiovascular Disease | DX: I48.91 Unspecified atrial fibrillation (principal); I25.2 Old myocardial infarction | CPT/HCPCS: 93010 ==

== ENCOUNTER → 2024-08-26 16:10 | Outpatient (BNV) | payer OTHER, SELFPAY | PROVIDERS: Emergency Provider Student in an Organized Health Care Education/Training Program; Visit Provider Radiology Diagnostic Radiology | DX: I50.9 Heart failure, unspecified (principal); I51.7 Cardiomegaly | CPT/HCPCS: 71045 ==

== ENCOUNTER 2024-08-26 17:33 | Outpatient (BNV) | payer OTHER, SELFPAY | END 2024-09-01 11:00 | PROVIDERS: Admitting Provider Physician Assistant Medical; Emergency Provider Student in an Organized Health Care Education/Training Program; PCP Student in an Organized Health Care Education/Training Program; Visit Provider Radiology Diagnostic Radiology | DX: I51.7 Cardiomegaly (principal); J98.11 Atelectasis | CPT/HCPCS: 71045 ==

== ENCOUNTER 2024-08-26 17:33 | Outpatient (BNV) | payer OTHER, SELFPAY | END 2024-08-28 13:01 | PROVIDERS: Admitting Provider Physician Assistant Medical; Emergency Provider Student in an Organized Health Care Education/Training Program; PCP Student in an Organized Health Care Education/Training Program; Visit Provider Internal Medicine Cardiovascular Disease | DX: I48.91 Unspecified atrial fibrillation (principal); I25.2 Old myocardial infarction | CPT/HCPCS: 93010 ==

== ENCOUNTER 2024-08-26 17:33 | Outpatient (BNV) | payer OTHER, SELFPAY | END 2024-09-02 07:00 | PROVIDERS: Admitting Provider Physician Assistant Medical; Emergency Provider Student in an Organized Health Care Education/Training Program; PCP Student in an Organized Health Care Education/Training Program; Visit Provider Internal Medicine | DX: I35.1 Nonrheumatic aortic (valve) insufficiency (principal); I34.0 Nonrheumatic mitral (valve) insufficiency; I36.1 Nonrheumatic tricuspid (valve) insufficiency | CPT/HCPCS: 93306 ==

== ENCOUNTER 2024-08-26 17:33 | Outpatient (BNV) | payer OTHER, SELFPAY | END 2024-08-28 22:20 | PROVIDERS: Admitting Provider Physician Assistant Medical; Emergency Provider Student in an Organized Health Care Education/Training Program; PCP Student in an Organized Health Care Education/Training Program; Visit Provider General Practice | DX: M17.12 Unilateral primary osteoarthritis, left knee (principal); M85.661 Other cyst of bone, right lower leg | CPT/HCPCS: 73560 ==

== ENCOUNTER → 2024-08-26 17:33 | Outpatient (BNV) | payer OTHER, SELFPAY | PROVIDERS: Admitting Provider Physician Assistant Medical; Emergency Provider Student in an Organized Health Care Education/Training Program; PCP Student in an Organized Health Care Education/Training Program; Visit Provider Internal Medicine Critical Care Medicine | DX: J96.02 Acute respiratory failure with hypercapnia (principal); I95.9 Hypotension, unspecified | CPT/HCPCS: 99291 ==

== ENCOUNTER → 2024-08-26 17:33 | Outpatient (BNV) | payer OTHER, SELFPAY | PROVIDERS: Admitting Provider Physician Assistant Medical; Emergency Provider Student in an Organized Health Care Education/Training Program; PCP Student in an Organized Health Care Education/Training Program; Visit Provider Internal Medicine Cardiovascular Disease | DX: I48.91 Unspecified atrial fibrillation (principal); I50.30 Unspecified diastolic (congestive) heart failure | CPT/HCPCS: 99222 ==

== ENCOUNTER → 2024-08-26 17:33 | Outpatient (BNV) | payer OTHER, SELFPAY | PROVIDERS: Admitting Provider Physician Assistant Medical; Emergency Provider Student in an Organized Health Care Education/Training Program; PCP Student in an Organized Health Care Education/Training Program; Visit Provider Internal Medicine | DX: J44.9 Chronic obstructive pulmonary disease, unspecified (principal); J18.9 Pneumonia, unspecified organism | CPT/HCPCS: 99222 ==

== ENCOUNTER → 2024-08-26 17:33 | Outpatient (BNV) | payer OTHER, SELFPAY | PROVIDERS: Admitting Provider Physician Assistant Medical; Emergency Provider Student in an Organized Health Care Education/Training Program; PCP Student in an Organized Health Care Education/Training Program; Visit Provider Internal Medicine | DX: J96.02 Acute respiratory failure with hypercapnia (principal); I50.9 Heart failure, unspecified | CPT/HCPCS: 99231; 99232; 99233; 99239; 99499; G0180 ==

== ENCOUNTER 2024-10-08 15:20 | Inpatient (IN) | payer OTHER, SELFPAY ==
[2024-10-08] VITALS (10 sets, daily range): BP systolic 113–136; BP diastolic 55–73; PULSE 71–93; RESP 17–24; TEMP 36.4–36.8; O2SAT 89–99; BMI 31.5
--- NOTE | ~2024-10-08 | CT_ITS ---
CLINICAL HISTORY: ? hemoptysis, hypoxia CTA chest with 3-D postprocessing Comparison: CR - XR CHEST 1V - 09/01/24 09:51 EDT Findings: Study quality is adequate for the diagnosis of pulmonary embolism. No pulmonary embolism. The main pulmonary artery is enlarged, measuring 4.0 cm. Enlargement of the pulmonary artery can be seen in the setting of pulmonary arterial hypertension Cardiomegaly. RV/LV ratio is normal. Mild calcified coronary artery disease. Mild calcification of the aortic valve. No dissection. Dilation of the ascending aorta, measuring 3.5 cm. Dilation of the descending aorta, measuring 3.0 cm. No calcified atherosclerotic disease. Mediastinal/hilar lymphadenopathy measuring up to 1.2 cm in short axis. Consolidation in the right lower lobe. Mosaic attenuation which can be seen in the setting of air trapping or developing ground-glass opacity. No pneumothorax. Trace right pleural effusion. No acute osseous or soft tissue abnormality. No acute pathology in the imaged portion of the upper abdomen. Impression: No pulmonary embolism. Right lower lobe pneumonia. Correlate with chest radiographs and follow up to resolution. This document has been electronically signed by: Ada Jain MD on 10/08/2024 18:42:06
--- NOTE | 2024-10-08 15:35 | ECG_ITS ---
Test Reason : SOB Blood Pressure : */* mmHG Vent. Rate : 77 BPM Atrial Rate : * BPM P-R Int : * ms QRS Dur : 94 ms QT Int : 390 ms P-R-T Axes : * -4 -9 degrees QTcB Int : 441 ms Atrial fibrillation Possible Inferior infarct (cited on or before 05-Oct-2021) Possible Anterior infarct (cited on or before 05-Oct-2021) Abnormal ECG When compared with ECG of 28-Aug-2024 13:01, No significant change was found Referred By: Clemencia Nicole Electronically Signed By: TRENTON BURGESS MD
[2024-10-08 16:00] LABS: MANUAL DIFF FLAG NO
[2024-10-08 16:03] LABS: Basophils Percent Auto 0.5 % (0-2); Eosinophils Absolute Auto 0.3 X10*3/uL (0.0-0.4); Eosinophils Percent Auto 4.2 % (0-4); Hematocrit 34.8 % (37.0-47.0); Hemoglobin 10.5 g/dl (12.0-16.0); Imm Gran Abs Auto 0.03 X10*3/uL (0.00-0.03); Imm Gran Pct Auto 0.5 % (0.0-0.4); Lymphocytes Absolute Auto 1.1 X10*3/uL (1.2-4.9); Mean Corpuscular HGB Conc 30.2 g/dl (31.0-35.0); Mean Corpuscular Hemoglobin 28.9 pg (27.0-33.0); Mean Corpuscular Volume 95.9 fL (80.0-98.0); Mean Platelet Volume 10.9 fL (9.4-12.3); Monocytes Absolute Auto 0.8 X10*3/uL (0.1-1.2); Monocytes Percent Auto 12.5 % (2-11); Neutrophils Absolute Auto 3.8 x10*3/uL (2.0-8.3); Neutrophils Percent Auto 63.3 % (45-73); Platelet Count 171 X10*3/uL (160-400); Red Blood Count 3.63 X10*6/uL (4.20-5.50); Red Cell Distribution Width 15.4 % (11.0-16.0)
[2024-10-08 16:12] LABS: INTERNATIONAL NORM RATIO 2.3 (0.9-1.1); Prothrombin Time 26.6 SEC (10.9-12.4)
[2024-10-08 16:18] LABS: Alanine Aminotransferase 12 U/L (0-31); Albumin Level 3.1 g/dL (3.5-5.0); Anion Gap 13 (12-20); Aspartate Amino Transferase 20 U/L (5-31); Bilirubin Total 0.5 mg/dL (0.0-1.0); Blood Urea Nitrogen 32 mg/dL (9-16); Calcium 8.9 mg/dL (8.4-10.2); Carbon Dioxide 33 mmol/L (22-29); Chloride 103 mmol/L (96-108); Creatinine Clr Calc Pharmacy 33.7; Estimated Glomerular Filt Rate 41; Glucose Random 92 mg/dL (60-115); Magnesium 1.8 mg/dL (1.6-2.6); Potassium 3.9 mmol/L (3.3-5.1); Sodium 145 mmol/L (135-145); Total Protein 7.2 g/dL (6.5-8.0)
[2024-10-08 16:22] LABS: B Type Natriuretic Peptide 208 pg/mL (<100)
[2024-10-08 16:27] LABS: Troponin-I High Sensitivity 3.2 ng/L (<3.5-17.0)
[2024-10-08 16:39] LABS: Influenza A PCR NEGATIVE (Negative); Influenza B PCR NEGATIVE (Negative); Resp Syncy Virus RNA Qual PCR NEGATIVE (Negative); SARS COV2 PCR INHOUSE NEGATIVE (Negative)
[2024-10-08 17:21] LABS: Alkaline Phosphatase 98 U/L (39-117)
[2024-10-08] MEDS: cefTRIAXone sodium 2 GM VIAL IVPUSH (17:27)
[2024-10-08] MEDS: 0.9 % Sodium Chloride 500 ML IV (17:27)
--- NOTE | 2024-10-08 17:32 | ED.GENADULT ---
HPI - General Adult General Chief complaint: Dyspnea Stated complaint: SOB,COUGH X1MTH,H/O CHF PER EMS Time Seen by Provider: 10/08/24 16:58 Source: patient Limitations: language barrier History of Present Illness ED Provider: Fabi Fu PA-C HPI narrative: 84-year-old female with a history of COPD, heart failure with a preserved ejection fraction, chronic kidney disease, hypertension, hyperlipidemia, AFib on warfarin, hypothyroidism, GERD, presents with worsening productive cough x1 month. Associated progressive shortness of breath, especially with exertion. Patient found to be newly hypoxic in triage, 89% on room air, she does not use supplemental oxygen. In addition, the patient was complaining about hemoptysis during a telehealth visit today. She was instructed to come to the emergency room for assessment. Denies orthopnea, unintentional weight gain or worsening pedal edema. Related Data Home Medications ?Medication ?Instructions ?Recorded ?Confirmed cholecalciferol (vitamin D3) 50 50 mcg PO DAILY 02/04/21 08/26/24 mcg (2,000 unit) capsule (Vitamin D3) loratadine 10 mg tablet 10 mg PO DAILY 02/04/21 08/26/24 omeprazole 20 mg capsule,delayed 20 mg PO DAILY@0630 02/04/21 08/26/24 release fluticasone fur. 100 mcg-umeclid 1 puff inhalation DAILY 05/03/21 08/26/24 62.5 mcg-vilant 25 mcg inhalat.powder (Trelegy Ellipta) albuterol sulfate 2.5 mg/3 mL 2.5 mg inhalation Q4H PRN 08/09/21 08/26/24 (0.083 %) solution for nebulization Shortness Of Breath montelukast 10 mg tablet 1 tab PO DAILY 08/09/21 08/26/24 cyanocobalamin (vitamin B-12) 1,000 mcg PO DAILY 05/29/24 08/26/24 1,000 mcg tablet diltiazem HCl 240 mg 240 mg PO DAILY 05/29/24 08/26/24 capsule,extended release 24 hr levothyroxine 75 mcg tablet 75 mcg PO DAILY@0600 05/29/24 08/26/24 torsemide 20 mg tablet 40 mg PO BID 08/26/24 08/26/24 warfarin 5 mg tablet 2.5 mg PO DAILY@1800 08/26/24 08/26/24 Allergies Allergy/AdvReac Type Severity Reaction Status Date / Time lisinopril [LISINOPRIL] Allergy Unknown UNKNOWN Verified 10/08/24 15:40 simvastatin [SIMVASTATIN] Allergy Unknown UNKNOWN Verified 10/08/24 15:40 Review of Systems Review of Systems: Yes all other systems are reviewed and are negative Constitutional: Constitutional: Denies fatigue and Denies fever(s) Cardiovascular: Cardiovascular: Denies chest pain, Reports dyspnea and Reports dyspnea on exertion Respiratory: Respiratory: Reports chest congestion, Reports cough, Reports hemoptysis, Reports dyspnea, Reports dyspnea on exertion and Denies wheezing Gastrointestinal: Gastrointestinal: Denies abdominal pain, Denies diarrhea, Denies nausea and Denies vomiting Endocrine: Endocrine: Denies fatigue Allergic/Immunologic: Allergic/Immunologic: Denies wheezing PMFSH Past Medical History Attestation statement: The following information was validated with the patient. Medical History (Updated 10/08/24 @ 19:14 by REAGAN Matute) Pneumonia Hypotension JEN (acute kidney injury) Tricuspid valve regurgitation Pulmonary hypertension Acute on chronic right heart failure Idiopathic hypotension Sepsis Cellulitis of right leg Lymphedema Non-healing wound of right lower extremity Venous stasis dermatitis of right lower extremity CHF (congestive heart failure) Hypothyroid Afib Asthma HTN (hypertension) Surgical History S/P hip replacement Family History Family History Mother Gastric cancer Social History Social History Household Members: None Housing: Apartment Do you presently have visiting nurse or other home services: Yes ([employer]) Alcohol intake: never Comment: sleeping in recliner Patient Tobacco Use Status: Never used Tobacco Second Hand Smoke Exposure: No Advance Directives: Yes Advance Directives on File: Yes Advance Directives Date on File: 02/05/21 service: No Current occupational status: disabled Physical Exam ED Vital Signs: Vital Signs - 24 hr 10/08/24 15:38 10/08/24 15:41 10/08/24 18:11 Temperature 97.6 F 97.9 F Pulse Rate 71 92 Respiratory Rate 24 H 22 H Blood Pressure 113/58 L 132/73 Pulse Oximetry 89 L 93 98 Oxygen Delivery Method Room Air Nasal Cannula Nasal Cannula Oxygen Flow Rate 2 4 BMI result Body Mass Index 31.5 Const Other: Alert Orientation/consciousness: patient oriented x3 Resp Other: Nonlabored respirations, bibasilar crackles on exam no wheeze Cardio Other: Bilateral pitting edema Skin Other: Warm dry no rash Neuro General: patient oriented x3, no focal motor deficits and CN's II-XI intact bilaterally Extrem Other: Bilateral lower extremities are edematous, skin is thickened, hyperpigmented and dry, with overlying scale, consistent with lymphedema/peripheral vascular disease Psych Other: Cooperative Course Reevaluation(s) Reevaluation #1: concern for sepsis, I just started assessing the Pt, she has a new O2 requirement, there was also discrepancy with a temperature, oral temp is 98? rectal 96.5, she feels nice and warm........ adding blood cx, lactic, starting 500ml IVF, she does not require weight based IVF therapy at this time....starting ceftriaxone, Time: 17:00 Medications Administered Discontinued Medications Generic Name Dose Route Start Last Admin Trade Name Romanq PRN Reason Stop Dose Admin Ceftriaxone Sodium 2 gm 10/08/24 17:00 10/08/24 17:27 Ceftriaxone Sodium 2 Gm Vial IVPUSH 10/08/24 17:01 2 gm ONCE ONE Administration Furosemide 20 mg 10/08/24 18:00 10/08/24 18:09 Furosemide 20 Mg/2 Ml Vial IVPUSH 10/08/24 18:01 20 mg ONCE ONE Administration Protocol Sodium Chloride 500 mls @ 500 mls/hr 10/08/24 17:00 10/08/24 18:27 Ns IV 10/08/24 17:59 Infused .Q1H ONE Infusion Iohexol 100 ml 10/08/24 17:53 10/08/24 17:56 Iohexol 350 Mg/Ml 100 Ml Infus..Btl IV 10/08/24 17:54 65 ml ONCE ONE Administration Medical Decision Making Medical Decision Making [facility] Narrative: 84-year-old female with a history of COPD, heart failure with a preserved ejection fraction, chronic kidney disease, hypertension, hyperlipidemia, AFib on warfarin, hypothyroidism, GERD, presents with worsening productive cough x1 month. Associated progressive shortness of breath, especially with exertion. Patient found to be newly hypoxic in triage, 89% on room air, she does not use supplemental oxygen. In addition, the patient was complaining about hemoptysis during a telehealth visit today. She was instructed to come to the emergency room for assessment. Denies orthopnea, unintentional weight gain or worsening pedal edema. Problem: Age, CHF, COPD, chronic kidney disease, hypertension AFib History: Per patient and her family I have considered the following differential diagnoses: ACS, heart failure exacerbation, COPD exacerbation, sepsis, pneumonia, PE Plan: Screening labs including troponin, BNP EKG and chest x-ray were obtained from triage. The patient does have a new oxygen requirement, with concerns for hemoptysis. She is now on 2 L nasal cannula and her oxygen is appropriate. Adding a CT angio of the chest. The chest x-ray reveals concerns for developing pneumonia, the CT scan we will better differentiate the read. We will be initiating the sepsis protocol given new hypoxia, the patient has a rectal temp of 96.5?, but an oral temp of 98?, unclear discrepancy. The patient was not tachycardic, her pressures are stable, I will start a 500 mL fluid bolus, ordering lactic, blood culture and starting ceftriaxone. The chest x-ray reveals a mixed picture, she has some degree of vascular congestion, however there was a retrocardiac density that needs better differentiation as I have already stated. We will be giving IV Lasix. I have independently reviewed the following tests: Labs: No leukocytosis, not anemic, no electrolyte abnormality, 1st troponin 3.2, BNP 208, lactic of 1 EKG: AFib, rate of 77, no new ischemic changes , QTC 441 Chest x-ray:Impression: 1. Cardiomegaly with mild diffuse pulmonary vascular congestion. 2. Increased retrocardiac density due to atelectasis/early consolidation. CT angio chest: Impression: No pulmonary embolism. Right lower lobe pneumonia. Correlate with chest radiographs and follow up to resolution. will add coverage for atypicals with doxy given she is on warfarin Lab Data 10/08/24 15:57 10/08/24 15:57 Labs: Lab Results 10/08/24 10/08/24 10/08/24 Range/Units 15:56 15:57 17:24 WBC 6.0 (4.8-10.8) X10*3/uL RBC 3.63 L (4.20-5.50) X10*6/uL Hgb 10.5 L (12.0-16.0) g/dl Hct 34.8 L (37.0-47.0) % MCV 95.9 (80.0-98.0) fL MCH 28.9 (27.0-33.0) pg MCHC 30.2 L (31.0-35.0) g/dl RDW 15.4 (11.0-16.0) % Plt Count 171 (160-400) X10*3/uL MPV 10.9 (9.4-12.3) fL Immature Gran % (Auto) 0.5 H (0.0-0.4) % Neut % (Auto) 63.3 (45-73) % Lymph % (Auto) 19.0 L (20-40) % Bibb % (Auto) 12.5 H (2-11) % Eos % (Auto) 4.2 H (0-4) % Baso % (Auto) 0.5 (0-2) % Lymph # (Auto) 1.1 L (1.2-4.9) X10*3/uL Bibb # (Auto) 0.8 (0.1-1.2) X10*3/uL Eos # (Auto) 0.3 (0.0-0.4) X10*3/uL Baso # (Auto) 0.0 (0.0-0.2) X10*3/uL Abs Immat Gran (auto) 0.03 (0.00-0.03) X10*3/uL Absolute Neuts (auto) 3.8 (2.0-8.3) x10*3/uL Absolute Nucleated RBC 0.000 (0.0-0.012) X10*3/uL Nucleated RBC % (auto) 0.0 (0.0-0.2) /100WBC PT 26.6 H D (10.9-12.4) SEC INR 2.3 H (0.9-1.1) Sodium 145 (135-145) mmol/L Potassium 3.9 (3.3-5.1) mmol/L Chloride 103 (96-108) mmol/L Carbon Dioxide 33 H (22-29) mmol/L Anion Gap 13 (12-20) BUN 32 H (9-16) mg/dL Creatinine 1.25 (0.5-1.4) mg/dL Estim Creat Clear Calc 33.7 Estimated GFR 41 Random Glucose 92 (60-115) mg/dL Lactic Acid 1.0 (0.5-2.0) mmol/L Calcium 8.9 (8.4-10.2) mg/dL Magnesium 1.8 (1.6-2.6) mg/dL Total Bilirubin 0.5 (0.0-1.0) mg/dL AST 20 (5-31) U/L ALT 12 (0-31) U/L Alkaline Phosphatase 98 (39-117) U/L Troponin I High Sens 3.2 (<3.5-17.0) ng/L B-Natriuretic Peptide 208 H (<100) pg/mL Total Protein 7.2 (6.5-8.0) g/dL Albumin 3.1 L (3.5-5.0) g/dL Influenza Type A (PCR) NEGATIVE (Negative) Influenza Type B (PCR) NEGATIVE (Negative) RSV RNA Qual (PCR) NEGATIVE (Negative) SARS-CoV-2 RNA (RT-PCR) NEGATIVE (Negative) Discharge Plan Discharge Clinical Impression: Pneumonia of right lower lobe due to infectious organism Patient Disposition: Admitted As Inpatient Print Language: Grenadian
[2024-10-08] MEDS: iohexoL 350 MG/ML 100 ML INFUS..BTL IV (17:56)
[2024-10-08] MEDS: Furosemide 20 MG/2 ML VIAL IVPUSH ×2 (18:09→21:26)
--- OUTSIDE RECORDS SUMMARY | 2024-10-08 18:54 | XMS_ITS | Clinical Summary ---
Author Organization [facility] Address [address] [place] [address] Phone Care Team Providers Care Radiation Oncologist Name Role Phone Amaya Lewis MD Primary Care Provider Allergies Active Allergy Reactions Criticality Noted Date Comments Digoxin Other (see comments) 08/05/2022 Pt an sson unsure of reaction We-Jqpimmoaa-Jlaichudlz nol Other (see comments) 08/05/2022 Lisinopril 11/15/2022 Simvastatin Other (see comments) 11/15/2022 Medications warfarin (COUMADIN) 2.5 MG tablet 09/28/19 23 Active Tiotropium Kelley Monohydrate (Spiriva Respimat) 1.25 MCG/ACT aerosol solution [...] of kidney 12/07/2013 Overview (08/07/2023): CT 08/25/11 [place] - right renal parapelvic cyst and smaller [...] 09/30/2012 Overview (08/07/2023): Also on MRI 12/2014. [employer] - endometrial bx 03/16/15 - benign Nephrolithiasis 09/13/2012 Overview (08/07/2023): Per old recrods, 10/05/2005 Aortic root dilatation 09/05/2012 Overview (08/07/2023): According to cardiac note. Followed by Dr. Chan at [facility]. History of polyp of colon 07/18/2012 Overview (08/07/2023): Colonoscopy Dr. Bob Breen 08/12/11 -small cecal polyp: tubular adenoma. Consider next exam 2016. Encounters Date Type Department Care Team Description 09/06/2024 Office Communication [facility] [address] [place] [id number] Tyron Mckenna MD from Last 3 Months Immunizations Immunization Administration Dates Next Due Influenza Split 04/02/2012 [...] Visit [facility] [address] [place] [address] Jose Hardy MD [phone] [facility] [address] [place] [address] Health Maintenance Due Date Last Done Comments Diabetes: Hemoglobin A1C 01/04/2021 Diabetes: Ophthalmology Exam 01/04/2021 Diabetes: Pedal Pulse Checked 01/04/2021 Diabetes: Sensory Foot Exam 01/04/2021 Diabetes: Visual Foot Exam 01/04/2021 Influenza Vaccine (Season Ended) 2025 04/11/2022, 03/15/2021, 05/29/2018, Additional history exists Pneumococcal Vaccine: 50+ Years Completed 05/29/2018, 10/06/2016, 10/02/2012, Additional history exists Pneumococcal Vaccine: Peds (0 to 5 Years) and At-Risk Patients (6 to 49 Years) Discontinued 05/29/2018, 10/06/2016, 10/02/2012, Additional history exists Hepatitis B Vaccine Aged Out No longe r eligible based on patient's age to complete this topic Insurance [facility] ([id number]) [facility] ([id number]) Care Teams Radiation Oncologist Relationship Specialty Start Date End Date Amaya Lewis MD [address] [place] PCP - General Internal Medicine 05/20/24
--- OUTSIDE RECORDS SUMMARY | 2024-10-08 18:54 | XMS_ITS | Data Portability ---
Author Organization [employer], [employer] Address [address] [place] [address] Care Team Providers Care Memory Care Program Resident Name Role Phone HIM CCA OTHER DAWKINSAPRILShekhar Primary Care Provider Assessment Encounter Date Assessment Date Assessment LastModified by Organization Details LastModified Time 11/02/2022 11/02/2022 I have reviewed and agree with the Assessment and Plan as documented by the Clip On Sunglasses Assembler. I provided real-time medical direction via phone [...] assessment and plan as documented by the software systems analyst. I provided real-time medical direction for this [...] emegency care. paysola Not available 02/25/2024 15:09:25 08/26/2024 08/26/2024 Ms. Roldan is an 84 yo F with Congestive Heart Failure, COPD/Asthma, Hypertension, Asthma, Chronic Kidney Disease who called today for worsening SOB. Per patient and medic, having worsening SANCHEZ and SOB. Edema up to the legs. Recent hospitalization in early June for CHF exacerbation. Recently switched from lasix to torsemide. Patient unclear how much weight she? s gained. Fever reported a few days ago. 100 systolic, softer pressures and bradycardic. Patient with less room to diurese safely at home. Reasonable to go to the ER. [facility] ER transferred. Given the patient's sx, most concerned about CHF exacerbation. Has rales in the lung bases, worsening fatigue and with her HF history and softer blood pressures, more limited options to diurese safely in the home setting. Considered also viral process vs PNA. No fevers at this time. Consider renal dysfunction, santos with the higher doses now of torsemide. Has known CKD. Signed out to ER [facility] at 2:50pm, Landy BURGESS. I provided real -time medical direction via phone for this encounter, and was available for additional phone based assistance as needed. I have reviewed and agree with the Assessment and Plan as documented by the Clip On Sunglasses Assembler. We discussed the diagnostic uncertainty of home visits and the risk associated with this. In this case the patient and I felt the safest dispo for the patient was a transfer to the ER. [email or web address] Not available 08/26/2024 14:57:49 10/08/2024 10/08/2024 As noted, we tru e called to see this patient regarding concerns of Sob and coughing up blood. Evaluation in the field was performed by my software systems analyst colleague, as noted above, I provided real-time direction and supervision for this visit. The evaluation revealed The patient is an 84 year old female with a past medical history of. Congestive Heart Failure, COPD/Asthma, Hypertension, Asthma, Chronic Kidney Disease Who presents with? Cough with hemoptysis. This has been going on for two weeks. Patient has had increased shortness of breath. She feels more tired. She had a fever a couple days ago, no fever today. Patient is on Coumadin. Patient was admitted to [facility]. For congestive heart failure a couple of weeks ago. On software systems analyst exam, the patient appears tired. She has crackles bilaterally. Pictures were taken up the blood tinged sputum. Since the patient is. Coughing up blood. And she does appear ill. We will send her to the hospital for further evaluation. An expect call was called by me to the ER. Impression: Hemoptysis EKG shows Afib hr 62, normal qrs nonspecific st-twave changes Plan: 1) flu and covid neg 2) Pt on coumadin will send to Er for further eval 3) Expect report called by me to the Er at [facility] Primary care, consider f/u on Er visit Disposition: to ER at [facility] We discussed the situation and I recommended referral to the emergency department. This was based on Hemoptysis Not available 10/08/2024 14:51:32 Plan of Treatment Reminders Order Date Submit Date Provider Last Modified By Organization Details Last Modified Time Details Appointments Urgent Care 2024 01:36P Myesha TURK MD Not available Not available Not available Lab rapid SARS CoV 2 Ag, QL IA, respirato ry specimen [address]24 [email or web address], [address] 10/08/2024 14:42:29 rapid flu (A+B) 2024 [id number], [address] 10/08/2024 14:42:29 Referral None recorded. Procedures None recorded. Surgeries None recorded. Imaging electroca rdiogram [address], [address] 10/08/2024 14:48:42 Medication Orders ceftriaxo ne 1 gram solution for injection 2023 024 katalina [facility], [address] [place], [address], 02/25/2024 15:09:27 cephalexi n 500 mg capsule 2023 024 KLE[facility], [address] [place], [address], 02/25/2024 15:10:49 acetamino phen 500 mg tablet 2023 024 katal[address] [facility], [address] [place], [address], 02/25/2024 15:09:27 doxycycli ne hyclate 100 mg capsule 2022 023 KLE[address] [facility], [address] [place], [address], 11/02/2022 14:55:18 miconazol e nitrate 2 % topical powder 2022 023 KLE[address] [facility], [address] [place], [address], 11/02/2022 14:57:16 Patient TargetsNo targets recorded. Patient InstructionsNo instructions recorded. Reason for Referral None Reported. Results Created Date Observation Date Name Description Value Unit Range Abnormal Flag Note LastModifiedBy Organization Detail LastModifiedTime 10/09/19 25 elect doron diogr am No observ ation record ed. [email or web address] [address], [address] 10/08/2024 14:47:19 Result Notes None recorded. Procedures Surgical History None recorded. Imaging Results Imaging Date Name Status LastModified by Organiz ation Details LastModified Time 10/08/2024 electrocardiogram active [id number] [address], [address] 10/08/2024 14:47:19 Procedure Notes None recorded. Medical Equipment None Reported. Allergies Allergen ID Allergen Name Allergen Category Reaction Reaction Severity Criticality Documentation Date Start Date Code Code System Note Provider Name and Address Organization Details Recorded Time 155 simvastat in medicatio n Not available Not available Not available 09/10/2021 34931 RxNorm Not Available [facility] - production 5 16:24:19 156 lisinopri l medicatio n Not available Not available Not available 09/10/2021 90504 RxNorm Not Available [facility] - production 5 16:24:19 157 Zocor medicatio n Not available Not available Not available 09/10/2021 02408 3 RxNorm Livia Green MD [address], [place], [address], [facility] 2 15:51:37 1698 Cortane-B medicatio n Not available Not available Not available 06/30/2022 95792 5 RxNorm liste d in her chart in epic my chart Livia Green MD [address] [facility],[address], [place], [address], [facility] 3 12:15:06 1699 digoxin medicatio n Not available Not available Not available 06/30/2022 3407 RxNorm liste d in my chart - epic Livia Green MD [address] [place] [address],[address], [place], [address], [facility] 3 12:15:26 Medications Name Sig Start Date [...] % 99 % 160.02 cm 110 /min 45749.3 76 g 16 /min 116 mm[Hg] 71 mm[Hg] Not Available [facility] [employer] [facility] 4 14:59:07 Date Recorded Oxygen saturation Oxygen saturation in Arterial blood by Pulse oximetry Body temperature Body height Respiratory rate Heart rate Body weight Systolic blood pressure Diastolic blood pressure Provider Name and Address Organization Details Last Updated DateTime 4 95 % 95 % 101 [degF] 160.02 cm 22 /min 110 /min 29662.1 92 g 140 mm[Hg] 80 mm[Hg] Not Available [facility] - production 4 14:58:50 Date Recorded Heart rate Oxygen saturation Oxygen saturation in Arterial blood by Pulse oximetry Body height Body weight Respiratory rate Systolic blood pressure Diastolic blood pressure Provider Name and Address Organization Details Last Updated DateTime 5 52 /min 95 % 95 % 154.94 cm 24972.6 8 g 18 /min 100 mm[Hg] 63 mm[Hg] Not Available [facility] production 5 13:59:57 Date Recorded Body weight Respiratory rate Body temperature Oxygen saturation Oxygen saturation in Arterial blood by Pulse oximetry Body height Heart rate Systolic blood pressure Diastolic blood pressure Provider Name and Address Organization Details Last Updated DateTime 5 73877.3 76 g 20 /min 97.6 [degF] 94 % 94 % 160.02 cm 72 /min 126 mm[Hg] 70 mm[Hg] Not Available [facility] 5 14:36:48 Date Recorded Respiratory rate Heart rate Body weight Body temperature Oxygen saturation Oxygen saturation in Arterial blood by Pulse oximetry Systolic blood pressure Diastolic blood pressure Provider Name and Address Organization Details Last Updated DateTime 3 14 /min 81 /min 54728.6 g 97.9 [degF] 99 % 99 % 132 mm[Hg] 66 mm[Hg] Not Available [facility] production 3 14:51:12 Social History None recorded. Functional [...] 544 Livia Green MD Main - [facility] [address] [place] [address] 09/10/2021 15:52:47 03/03/2022 16:20:49 Edema of lower extremity 487290264 R60.0 - venous stasis with clinically improving chf Chronic ki dney disease 556163074 N18.9 987 Evelio Cline MD Main - [facility] [address] [place] [address] 10/07/2021 13:43:00 02/25/2022 14:50:20 Sepsis 12912329 A41.9 6762 Livia Green MD Main - [address] [address] 06/30/2022 12:13:11 07/04/2022 09:50:58 Cellulitis of lower limb 871435939 L03.119 On coumadin INR SL LOW/ [facility] [...] immediatel y- verbalized understand ing of instructio lupe 7514 Jose Bill MD [facility] [place] [phone] 07/29/2022 15:46:52 08/01/2022 12:25:19 Open wound of lower leg 122953025 S81.801A Patient with lymphedema presents with right [...] I do not feel this is needed. 10875 Evelio Cline MD [facility] [address] [address] 11/02/2022 14:50:44 11/03/2022 15:22:51 Venous stasis edema of bilateral lower limbs [id number] 1743208 I87.2 01362 [facility] [address] [place] [phone] 01/18/2024 14:59:01 01/19/2024 08:38:20 Medical examination for suspected condition [id number] Z00.01 As noted, we were called to see this patient regarding concerns of hypertensi on and hypoxemia noted at pulmonolog ist visit. Evaluation in the field was performed by my software systems analyst colleague, as noted above, I provided real-time direction and supervisio n for this visit. The evaluation revealed no evidence of hypertensi on or hypoxemia. The patient denied any concerns. Her heart rate was minimally elevated and this was reported to be chronic by the family members. Impression :Recheck of vital signs Plan:Ty gan follow-up Primary care, considerph one call to [...] chest pressure, or any new/worsen ing symptom. [address] Sandhya Perez MD Main - [facility] [address] [place] [phone] 02/25/2024 14:58:29 02/27/2024 00:15:06 Cellulitis of lower leg 268683366 L03.119 87175 KAZ SHARIF MD Main - [facility] [address] [place] [phone] 08/26/2024 13:50:52 08/27/2024 12:35:48 Congestive heart failure 38961774 I50.9 69793 LEELA TURK MD Main - [facility] [address] [place] [address] 10/08/2024 14:36:17 10/08/2024 16:02:04 Hemoptysis 78448160 R04.2 Health Concerns Section Related Observation LastModified by Organization Detai ls LastModified Time None Recorded Concern Status LastModified by Organization Details LastModified Time None Recorded Advance Directives Directive None Recorded Payers Encounter Date Sequence Insurance Name Policy Number Policy Potts Covered Member ID Potts Member ID Guarantor Name 11/02/2022 1 [facility] - DOS PRIOR TO 2022 - DUAL ELIGIBLE (MEDICARE REPLACEMENT/ADV ANTAGE - HMO) Adriana Roldan [id number] Adriana Roldan 01/18/2024 1 [facility] - DOS ON OR AFTER 2022 - DUAL ELIGIBLE - PRISON OPTIONS AND ONE CARE (MEDICARE REPLACEMENT/ADV ANTAGE - HMO) Adriana Roldan [id number] Adriana Roldan 02/25/2024 1 [facility] - DOS ON OR AFTER 2022 - DUAL ELIGIBLE - PRISON OPTIONS AND ONE CARE (MEDICARE REPLACEMENT/ADV ANTAGE - HMO) Adriana Farrisdo [id number] Adriana Roldan 08/26/2024 1 [facility] - DOS ON OR AFTER 2022 - DUAL ELIGIBLE - PRISON OPTIONS AND ONE CARE (MEDICARE REPLACEMENT/ADV ANTAGE - HMO) Adriana Farrisdo [id number] Adriana Farrisdo 10/08/2024 1 [facility] - DOS ON OR AFTER 2022 - DUAL ELIGIBLE - PRISON OPTIONS AND ONE CARE (MEDICARE REPLACEMENT/ADV ANTAGE - HMO) Adriana Farrisdo [id number] Adriana Farrisdo Notes Date Note Type Note Provider Name and Address Organization Details Recorded Time 11/02/2022 text/html [facility] Nursing Assessment: Reason For [...] ..................... ..................... ..................... ..................... ..................... ..................... ............... Clip On Sunglasses Assembler Note From Jose A Miller: Pt/caregiver reports [...] ..................... ............... Disposition: Fulfilled Evelio Cline MD [address] [place] [address],[address], [place], [address], [employer] 12/08/2022 14:13:32 01/18/2024 text/html CRC Nurse Triage [...] ..................... ..................... ..................... ..................... ..................... ..................... ............... Clip On Sunglasses Assembler Note From Tre Garibay: [facility] visit for female patient. Pt present with family who translated for pt who only speaks burkinan. Family reports that pt was brought to outpatient appointment for an injection for her asthma. She was noted at appointment to have a low oxygen level and some concern about her blood pressure and family was instructed to go to ED or have [facility] visit. Pt has no complaints at this time and is well appearing. V/S taken with HR noted to be elevated, irregular with history of atrial fibrillation. Lungs clear with good pulse ox on assessment. [place] [facility] [place] V[place]. No further assessment or treatments needed at this time. Family instructed to continue monitoring patient. Patient education provided. ..................... ..................... ..................... ..................... ..................... ..................... ............... Disposition: Fulfilled Julian Vaz MD [address] [place] [address],[address], [place], [address], [employer] 01/18/2024 15:59:58 02/25/2024 text/html CRC Nurse Triage Notes (Blayne Montiel): Reason For Request: pt's son aixa reporting n/v/d since waking up this morning alongside fever>mbr is currently being seen at wound clinic for a wound below the right knee>son notes swelling on the right leg Chief Complaints: Nausea/Vomiting, Diarrhea, Cellulitis, Fever/Chills PMH: CHF, COPD/Asthma, Hypertension Allergies: Unknown Comments: Manager Rn verified the member's name//address and phone number. Mbr's son reporting N/V/D and fever since this morning. Son reports RLE is swollen and red. Fever reportedly 105F, now 101F after Tylenol. Education provided on the response time and the member was advised to monitor reported s/s and seek emergency treatment if needed -Kenan Montiel RN ..................... ..................... ..................... ..................... ..................... ..................... ............... Clip On Sunglasses Assembler Note From Trevon Chirinos: [facility] note Mbr's [...] 105, oral. Pt was given 500mg Tylenol BUSINESS STRATEGIST around noon. Pt has had the wound on her R leg for about 6 months. A nurse comes in a few times a week to change the dressing. Pt is not being treated with antibiotics, but [facility] was here about 3 months ago and [...] son lives with pt and is her ARTILLERY OFFICER. Informed to keep an eye redness, and look out for fever, AMS and other septic findings, and when to go to the ER. ..................... ..................... ..................... ..................... ..................... ..................... ............... Disposition: Fulfilled Sandhya Perez MD [address] [place] [address],[address], [place], [address], [employer] 02/25/2024 17:24:52 08/26/2024 text/html CRC Nurse Triage Notes (Marii Fernandez): Reason For Request: Pt's son Nicko reporting SOB from a few days ago [facility]ing [facility]>becoming weaker and continued SOBDenies: Increased work of breathing/labored ? with or without fever Unable to speak in full sentences without distress Discoloration of skin -cyanosis Needs to sleep sitting up, can? t catch breath Shortness of breath in setting of confusion Chief Complaints: Breathing ProblemsPMH: Congestive Heart Failure, COPD/Asthma, Hypertension, Asthma, Chronic Kidney DiseasePMH Reviewed at 08/26/2024 - 10:38Allergies Reviewed at 08/26/2024:38Comments: Patient was seen the other day by [facility] for shortness of breath. Son states patient appears to have worsening symptoms. Dyspnea on exertion. Appears more lethargic. Had a fever a couple of days ago. Patient is c/o being cold. Patient has a worsening cough with small amount of yellow sputum. Patient using nebulizer treatment and inhalers. Patient has increased edema to BLEs. Patient is on Lasix.Education provided on the response time and the member was advised to monitor reported s/s and seek emergency treatment if needed. ..................... ..................... ..................... ..................... ..................... ..................... ............... Clip On Sunglasses Assembler Note From Tre Garibay: [facility] visit for female pt. Pt presents with son at home and complaint of SOB with worsening lower extremity edema and lethargy. Pt was hospitalized for 3 weeks recently for same issue and was changed from lasix to torsemide however edema has only gotten worse. Pt has been taking her prescribed inhalers and nebulizers. Son reports possible fever a couple of days ago. V/S taken with bradycardia noted and soft blood pressure. Thermometer malfunctioned and was not able to read temperature. Lungs auscultated and diminished on left side. [place] [facility] [place] Sharif who agreed that ED was appropriate for pt. Pt and family agreed and 911 was called with [facility] responding. Report given to transporting medic. Care transferred. ..................... ..................... ..................... ..................... ..................... ..................... ............... [facility] Consulted: Kaz Sharif ..................... ..................... ..................... ..................... ..................... ..................... ............... Disposition: Fulfilled KAZ SHARIF MD [address] [place] [address],[address], [place], [address], [employer] 08/26/2024 22:56:32 10/08/2024 text/html [facility] Nurse Triage Notes (Marii Fernandez): Reason For Request: Patient Short of breath, has a cough, and a blood tinge to her cough, crackles in her lower lobes. Patient Reports: Cough; Shortness of breath with exertionDenies: Increased work of breathing/labored ? with or without fever Unable to speak in full sentences without distress Discoloration of skin -cyanosis Needs to sleep sitting up, can? t catch breath Shortness of breath in setting of confusion Chief Complaints: CoughPMH: Congestive Heart Failure, COPD/Asthma, Hypertension, Asthma, Chronic Kidney DiseasePMH Reviewed at 10/08/2024 - 13:40Allergies Reviewed at 10/08/2024 - 13:40Comments: Per VNA, patient with progressively worsening shortness of breath, worse today. Cough x2 weeks. Noticed blood tinged sputum. Does not wish to go to the ER. Patient saw Gas Meter Repairer last week, was given 5 day course of Prednisone that was finished last week. 02 sat 94% RA. On Coumadin, INR today was 2.7. LE edema at baseline. No fever/chills. [employer] Sunglasses Assembler Organization Information for Salvador Le Legal Name: [employer] ? Address: [address] [place] [address], USMedical Director: Kye Montaño [facility] No.: [id number] [employer] On Sunglasses Assembler POC Test Results from Salvador Le - ALS EKG (14:34:24)EKG test performed.Attachments uploaded as part of this test result can be found under Documents section. Rapid COVID antigen (14:35:17)COVID: - Rapid influenza antigen (14:35:17)Flu: - ..................... ..................... ..................... ..................... ..................... ..................... ............... Clip On Sunglasses Assembler Note From Salvador Le: JADIEL is met at the front entry of the apartment building by pt's son. He tells JADIEL his mother has not been feeling well w/ a productive cough x2 weeks. She has been coughing up bloody sputum w/ differing consistency and amounts of blood. She was hospitalized in August for respiratory issues and CHF exacerbation and was told by her doctor if she began to have similar s/s again, not to wait and go immediately to the ER. Son says he has been concerned, but she has been very resistant to returning to the hospital. He was able to convince her to be evaluated today. She has not been sleeping well due to the cough and has been using her inhaler and nebulizer w/ little to no relief. Son does not report any fevers, n/v/d. He has noticed sometimes she leans forward on her arms to breathe and sometimes she breathes through pursed lips. Pt is Kiswahili-speaking only, son provides translation. Pt is found seated in a recliner in the living room of a small apartment she shares w/ her three sons, who are her care givers. She appears tired w/ red-rimmed eyes, but she is alert and responsive. Her skin is w/p/d, no perioral or peripheral cyanosis are observed. No stridor or sonorous respirations are present and she is currently not tripoding or pursed-lip breathing. Neither is observed by [facility] during visit. She yawn frequently during visit and closes her eyes as if nodding off to sleep frequently. She tells [facility] she feels bad . When asked how she feels bad, she c/o body aches, coughing, and sob. She denies LOGAN and fevers, but does endorse some chills a couple days ago. She is needing to sleep more upright than normal, but is denying night sweats. Son says she uses CPA during the day, but not at night. When [facility] tries to clarify if this is correct, he says yes, she wears it during the day. CPAP machine is noted to be next to the recliner as well as an O2 concentrator and nebulizer. There is a bucket of clear fluid w/ bubbles and chunks of what appears to be tissue that is bloody floating in it. Son says this is what she is coughing up. Yesterday was very thick sputum and very red w/ blood. this has been every day for two weeks. Pt is anticoagulated. [facility] obtains vital signs and pt is swabbed for COVID/flu. Pt has rales in the bases bilateral w/ auscultation of the lungs, but no wheezing or rhonchi at this time. Cough is noted to be hard and productive. A 12 lead EKG is obtained and shows atrial fibrillation. COVID/flu are negative. [facility] calls [facility] and discusses the above and the collective consensus is pt should return to the hospital for further workup. Family and pt are amendable and [facility] calls 911. Pt is transported to [facility] by [facility]. [facility] is clear. Report completed by MÓNICA Le [id number]. [facility] Lab Orders: rapid SARS CoV 2 Ag, QL IA, respiratory specimen: Performed rapid flu (A+B): Performed ..................... ..................... ..................... ..................... ..................... ..................... ............... [facility] Consulted: Leela Turk ..................... ..................... ..................... ..................... ..................... ..................... ............... Disposition: Fulfilled LEELA TURK MD [address] [facility],[address] [facility], [place], [address], [facility] 10/08/2024 15:47:15 OBGyn Episode No OBEpisode recorded.
--- OUTSIDE RECORDS SUMMARY | 2024-10-08 18:54 | XMS_ITS | Encounter Summary ---
Author Organization [facility] Address [address] [place] [address] Care Team Providers Care Senior Front End Engineer Name Role Phone Rishi Lion MD Primary Care [facility] Encounter Details Date Type Department Care [...] Department Care Team (Latest Contact Info) Description 10/16/2024 11:10 AM EDT Office Visit [facility] - [facility] 154 300 [facility] 154 [place] [address] Mikael Montoya NP 300 [place] [address] 10/17/2024 11:00 AM EDT Appointment [facility] [address] [facility] 2nd [place] [address] 10/22/2024 11:10 AM EDT Anticoagulation - Warfarin Visit [facility] - [address] [address] 11/26/2024 11:00 AM EDT Appointment Radiology Department - [address] [address] 11/28/2024 10:45 AM EDT Consult Orthopedic Surgery - [place] 250 175 [facility] 250 [place] [phone] Leeroy Schneider DPM 175 [facility] 250 [place] [address] 12/18/2024 11:30 AM EDT Office Visit Pulmonolgy - [place] 175 [facility] 200 [place] [phone] Chelsea Sih NP 175 [facility] 200 [place] [address] 01/06/2025 10:40 AM EDT Office Visit [facility] - [facility] 154 300 [facility] 154 [place] [phone] Mikael Montoya NP 300 [place] [address] 01/16/2025 10:00 AM EDT Office Visit Internal Medicine - [place] [address] [phone] Elizabet Shannon MD [address] [address] documented as of this encounter Visit Diagnoses Not on filedocumented in this encounter Additional Health Concerns Infection Onset Date Last Indicated Resolved Time Respiratory Rule-Out 06/18/2024 06/18/2024 024 5:27 PM EST COVID-19 Rule-Out 06/18/2024 06/18/2024 06/18/2024 5:27 PM EST documented as of this encounter Care Teams Senior Front End Engineer Relationship Specialty Start Date End Date Rishi Lion MD [address] [place] [address] [place] [address] PCP - General 04/04/24 05/05/24 documented as of this encounter
--- OUTSIDE RECORDS SUMMARY | 2024-10-08 18:54 | XMS_ITS | Encounter Summary ---
Author Organization [facility] Address [address] [place] [address] Care Team Providers Care Framing Mill Supervisor Name Role Phone Elizabet Shannon MD Primary Care Provider [phone] Encounter Details Date Type Department Care Team (Latest Contact Info) Description 10/03/2024 Anticoagulation - [facility]farin [facility] [address] [phone] Felicita Alvarado LPN Atrial fibrillation, 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 (CMS/HCC V24, CMS/HCC V28) (Primary Dx); care home (current) use of [...] Description 10/16/2024 11:10 AM EDT Office Visit [facility] - [facility] [address] 300 [facility] 154 [place] [address] Mikael Montoya NP 300 [place] [address] 10/17/2024 11:00 AM EDT Appointment Infusion Center 271 [facility] 2nd [place] [phone] 10/22/2024 11:10 AM EDT Anticoagulation - Warfarin Visit [facility] - [address] [address] 11/26/2024 11:00 AM EDT Appointment Radiology Department - [address] [phone] 11/28/2024 10:45 AM EDT Consult Orthopedic Surgery - [place] 250 175 [facility] 250 [place] [phone] Leeroy Schneider DPM [address] [address] 12/18/2024 11:30 AM EDT Office Visit Pulmonolgy - [place] 175 [facility] 200 [place] [phone] Chelsea Shi NP 175 [facility] 200 [place] [address] 01/06/2025 10:40 AM EDT Office Visit [facility] - [facility] 154 300 [facility] 154 [place] [address] Mikael Montoya NP 300 [place] [address] 01/16/2025 10:00 AM EDT Office Visit Internal Medicine - [place] 175 [facility] 200 [place] [phone] Elizabet Shannon MD [address] [address] documented as of this encounter Visit Diagnoses Diagnosis Atrial fibrillation, 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 (CMS/HCC V24, CMS/HCC V28)- Primary care home (current) use of anticoagulants Long-term (current) use of anticoagulants Encounter for screening mammogram for breast cancer documented in this encounter Care Teams Framing Mill Supervisor Relationship Specialty Start Date End Date Elizabet Shannon MD [address] [address] PCP - General Internal Medicine 05/06/24 documented as of this encounter
--- OUTSIDE RECORDS SUMMARY | 2024-10-08 18:54 | XMS_ITS | Encounter Summary ---
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 [...] Description 10/16/2024 11:10 AM EDT Office Visit [facility] - [facility] [address] [facility] 154 [place] [address] Mikael Montoya NP 300 [place] [address] 10/17/2024 11:00 AM EDT Appointment [facility] 271 [facility] 2nd [place] [address] 10/22/2024 11:10 AM EDT Anticoagulation - Warfarin Visit [facility] - [address] [address] 11/26/2024 11:00 AM EDT Appointment Radiology Department - [address] [address] 11/28/2024 10:45 AM EDT Consult Orthopedic Surgery - [place] 250 175 [facility] 250 [place] [phone] Leeroy Schneider DPM [address] [address] 12/18/2024 11:30 AM EDT Office Visit Pulmonolgy - [place] 175 [facility] 200 [place] [phone] Chelsea Shi NP 175 [facility] 200 [place] [address] 01/06/2025 10:40 AM EDT Office Visit [facility] - [facility] 154 300 [facility] 154 [place] [address] Mikael Montoya NP 300 [place] [address] 01/16/2025 10:00 AM EDT Office Visit Internal Medicine - [place] 175 [facility] 200 [place] [phone] Elizabet Shannon MD 175 [facility] 200 [place] [address] documented as of this encounter Procedures Procedure Name Priority Date/Time Associated Diagnosis Comments POC PROTIME INR BLOOD Routine 10/08/2024 Atrial fibrillation, 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 ([facility] V24, [facility] V28) long-term (current) use of anticoagulants documented in this encounter Results * POC Protime INR Blood (10/08/2024) Lot Number INR POC 2.7 Prothrombin Time POC Exp Date Blood 10/08/2024 Jerry Akers MD POINT OF CARE TEST ENTER/EDIT O RDERABLES Final Result documented in this encounter Visit Diagnoses Diagnosis Atrial fibrillation, 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 (CMS/[facility] V24, CMS/[facility] V28)- Primary long-term (current) use of anticoagulants Long-term (current) use of anticoagulants Encounter for screening mammogram for breast cancer documented in this encounter Care Teams Dye Expert Relationship Specialty Start Date End Date Elizabet Shannon MD 175 [facility] 200 [place] [address] PCP - General Internal Medicine 05/06/24 documented as of this encounter
--- OUTSIDE RECORDS SUMMARY | 2024-10-08 18:54 | XMS_ITS | Clinical Summary ---
Author Organization 175 [facility] Address 175 [place] [address] Phone Care Team Providers Care Pinion And Wheel Truer Name Role Phone Elizabet Shannon MD Primary Care Provider [phone] Allergies Active Allergy Reactions Criticality Noted Date Comments Ygarxxedh-Dl-Hnwrjrpdhndox Lisinopril 04/14/2024 Simvastatin 04/14/2024 Medications ferrous sulfate [...] HOURS NEEDED FOR PAIN 30 tablet 1 025 Active albuterol HFA (Ventolin HFA) 90 mcg/actuation inhalerIndicati ons:Severe persistent asthma with exacerbation (CMS/[facility] V28) Inhale 2 puffs by mouth every 4 (four) hours if needed for wheezing or shortness of breath. 8 g 5 025 2024 Active fexofenadine (MICHOACANO) 180 mg tablet Take 1 tablet (180 mg total) by mouth 1 (one) time each day if needed (cough). 30 tablet Active warfarin (COUMADIN) 5 mg tablet Take 0.5 tablets (2.5 mg total) by mouth 1 (one) time each day. 90 tablet Active cyanocobalamin (VITAMIN B-12) 1,000 mcg tablet TAKE 1 TABLET BY MOUTH DAILY. 30 tablet Active Trelegy Ellipta 100-62.5-25 mcg inhaler INHALE 1 PUFF BY MOUTH DAILY. 60 each Active omalizumab (Xolair) 150 mg/mL syringe subcutaneous syringeIndicati ons:Severe persistent asthma with exacerbation (CMS/HCC V28),Chronic rhinitis Inject 2.5 mL (375 mg total) under the skin every 14 (fourteen) days. 6 mL 2025 Active omeprazole (PriLOSEC) [address] capsule Take 1 capsule (20 mg total) by mouth 1 (one) time each day. 30 capsule Active cholecalciferol (VITAMIN D-3) 50 mcg (2,000 unit) capsule TAKE (1) CAPSULE BY MOUTH DAILY 30 capsule Active montelukast (SINGULAIR) 10 mg tablet TAKE 1 TABLET BY MOUTH DAILY AT BEDTIME. 28 tablet Active loratadine (CLARITIN) 10 mg tablet TAKE 1 TABLET BY MOUTH DAILY. 28 tablet 025 Active torsemide 40 mg tablet Take 1 tablet by mouth 1 (one) time each day. 90 tablet 025 2024 Active albuterol 2.5 mg /3 mL (0.083 %) nebulizer solutionIndicat ions:Severe persistent asthma with exacerbation (CMS/HCC V28) Take 3 mL (2.5 mg total) by nebulization every 4 (four) hours if needed for wheezing. 300 mL 025 2025 Active levothyroxine (SYNTHROID, LEVOTHROID) 75 mcg tablet TAKE 1 TABLET BY MOUTH ONCE DAILY 28 tablet Active levothyroxine (SYNTHROID, LEVOTHROID) 75 mcg tablet Take 1 tablet (75 mcg total) by mouth 1 (one) time each day before breakfast. 2024 Discontinued montelukast (SINGULAIR) 10 mg tablet Take 1 tablet (10 mg total) by mouth at bedtime. 2024 Discontinued omeprazole (PriLOSEC) [address] capsule Take 1 capsule (20 mg total) by mouth 1 (one) time each day. Do not crush or chew. 2024 Discontinued cholecalciferol (VITAMIN D-3) 50 mcg (2,000 unit) tablet Take 1 tablet (2,000 Units total) by mouth 1 (one) time each day. 2024 Discontinued(D uplicate order) torsemide (DEMADEX) 20 mg tablet Take 2 tablets (40 mg total) by mouth 2 (two) times daily morning and afternoon. 120 each 11 025 2024 Discontinued(D ose adjustment) albuterol 2.5 mg /3 mL (0.083 %) nebulizer solutionIndicat ions:Severe persistent asthma with exacerbation ([facility] V28) Take 3 mL (2.5 mg total) by nebulization every 4 (four) hours if needed for wheezing. 75 mL 3 025 2024 Discontinued(R eorder) loratadine (CLARITIN) 10 mg tablet TAKE 1 TABLET BY MOUTH DAILY. 28 tablet 025 2024 Discontinued predniSONE (DELTASONE) 20 mg tabletIndicatio ns:Severe persistent asthma with exacerbation ([facility] V28) Take 2 tablets (40 mg total) by mouth 1 (one) time each day for 5 days. 10 each 025 2024 Active Problems Problem Noted Date Diagnosed Date COPD (chronic obstructive pu lmonary disease) ([facility] V24, [facility] V28) 09/13/2024 Sepsis ([facility] V24, [facility] V28) 09/13/2024 Acute on chronic diastolic h eart failure ([facility] V24, [facility] V28) 06/25/2024 Shortness of breath 06/19/2024 SOB (shortness of breath) 06/18/2024 Atrial fibrillation ([facility] V24, [facility] V28) 1 08/05/2023 oysterman (current) use of anticoagulants 2023 Moderate asthma without complication 05/08/2024 A-fib (CMS/HCC V24, CMS/HCC V28) 04/14/2024 Assessment & Plan (09/20/2024 2:50 PM EDT): Continue with diltiazem and warfarin. Patient denies any abnormal bleeding. Should remain anticoagulated due to an elevated CHADS2 Vascor. Orders: ECG 12 lead Assessment & Plan (05/06/2024 1:30 PM EST): [...] essential HTN 04/14/2024 (HFpEF) heart failure with p reserved ejection fraction (CMS/HCC V24, CMS/HCC V28) 04/14/2024 Assessment & Plan (09/20/2024 2:50 PM EDT): Patient seems mostly euvolemic on exam today. Patient appears mostly euvolemic on exam today. Did speak to her about limiting her sodium intake. Patient could potentially be a good candidate for an SGLT2 inhibitor. Will look to potentially initiate that in the next appointment. I would like patient to continue weighing herself daily reach out to the office if she gains more than 2 pounds in a day or 5 pounds in a week. Orders: Basic metabolic panel; Future Assessment & Plan (05/06/2024 1:30 PM EST): [...] panel; Future Lipid panel Dilated aortic root (CMS/HCC V24) 04/14/2024 PVD (peripheral vascular disease) (CMS/HCC V24) 04/14/2024 Assessment & Plan (05/06/2024 1:30 PM [...] 04/14/2024 HLD (hyperlipidemia) 04/14/2024 Assessment & Plan (09/20/2024 2:50 PM EDT): Patient most recent LDL was 53. Continue on current medication regiment. Assessment & Plan (05/06/2024 1:30 PM EST): We will update lipid profile. Patient currently taking rosuvastatin. Educated to adhere to a cardiac healthy diet. Orders: Lipid panel; Future B-type natriuretic peptide; Future Basic metabolic panel; Future Transthoracic echocardiogram (TTE) complete with PRN contrast, bubble, strain, and 3D order panel; Future Lipid panel Encounters Date Type Department Care Team Description 10/08/2024 11:00 AM EDT Antico[facility] - [facility] [address] [phone] Atrial fibrillation, 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 (CMS/HCC V24, CMS/HCC V28) (Primary Dx); oysterman (current) use of anticoagulants 10/08/2024 Telephone Internal Medicine - [place] [address] [phone] Lorie Gamez MA faxed order ([facility]) 10/03/2024 10:39 AM EDT - 10/03/2024 11:59 PM EDT Hospital Encounter [facility] [address] [facility] 2nd [place] [phone] Evangelina Lou MD Moderate asthma without complication, unspecified whether persistent (Primary Dx) Discharge Disposition: Home or Self Care 10/03/2024 Anticoagulation - Warfarin Visit [facility] [address] [phone] Felicita Alvarado LPN Atrial fibrillation, 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 (CMS/HCC V24, CMS/HCC V28) (Primary Dx); senior living (current) use of anticoagulants 09/26/2024 11:30 AM EDT Office Visit Pul[facility]olgy - [place] [address] [phone] Chelsea Shi NP Anemia, 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 (Primary Dx); Severe persistent asthma with exacerbation (CMS/HCC V28) 09/24/2024 Telephone [facility] [address] [phone] Mikael Montoya NP Sleep Study 09/23/2024 10:50 AM EDT Anticoagulation - Warfarin Visit Coumadin [address] [phone] Atrial fibrillation, 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 (CMS/HCC V24, CMS/HCC V28) (Primary Dx); oysterman (current) use of anticoagulants 09/23/2024 Telephone Internal Medicine [facility] [address] [phone] Janet Mcleod MA Request For Order(s) ([facility] Cert 09/06/24-11/04/24 Plan Of Care ) 09/20/2024 Telephone [facility] [address] [phone] Mikael Montoya NP Lab Results 09/19/2024 12:40 PM EDT Lab Draw Station - [address] [facility] 299 [place] [phone] Longstanding persistent atrial fibrillation (CMS/HCC V24, CMS/HCC V28) (Primary Dx); Chronic diastolic heart failure (CMS/HCC V24, CMS/HCC V28); Peripheral vascular disease, unspecified (CMS/HCC V24); Mixed hyperlipidemia; Chronic atrial fibrillation (CMS/HCC V24, CMS/HCC V28); PVD (peripheral vascular disease) (CMS/HCC V24); oysterman (current) use of anticoagulants; Acute on chronic heart failure with preserved ejection fraction (CMS/HCC V24, CMS/HCC V28); Chronic heart failure with preserved ejection fraction (CMS/HCC V24, CMS/HCC V28); Moderate mixed hyperlipidemia not requiring statin therapy 09/19/2024 11:00 AM EDT - 09/19/2024 11:59 PM EDT Hospital Encounter [facility] [address] [phone] Evangelina Lou MD Moderate asthma without complication, unspecified whether persistent (Primary Dx) Discharge Disposition: Home or Self Care 09/19/2024 Anticoagulation - [facility]farin [facility] [address] [phone] Felicita Alvarado LPN Atrial fibrillation, 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 (CMS/HCC V24, CMS/HCC V28) (Primary Dx); oysterman (current) use of anticoagulants 09/17/2024 9:40 AM EDT Office Visit [facility] 154 300 [facility] 154 [place] [phone] Mikael Montoya NP Atrial fibrillation, 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 (CMS/HCC V24, CMS/HCC V28) (Primary Dx); Acute on chronic heart failure with preserved ejection fraction (CMS/HCC V24, CMS/HCC V28); Sleep apnea, 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; Mixed hyperlipidemia 09/17/2024 Telephone Internal Medicine - [place] [address] [facility] [address] [place] [address] Elizabet Shannon MD 09/16/2024 10:45 AM EDT Office Visit Internal Medicine [address] 200 [place] [address] Elizabet Shannon MD Acute on chronic heart failure with preserved ejection fraction (CMS/HCC V24, CMS/HCC V28) (Primary Dx); Atrial fibrillation, 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 (CMS/HCC V24, CMS/HCC V28); Adverse effect of diltiazem 09/16/2024 Telephone Internal Medicine [address] [phone] Lorie Gamez MA DME 09/12/2024 2:00 PM EDT Anticoagulation - Warfarin Visit [facility] - [address] [phone] Atrial fibrillation, 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 (CMS/HCC V24, CMS/HCC V28) (Primary Dx); senior living (current) use of anticoagulants 09/09/2024 Telephone Internal Medicine [address] [phone] Elizabet Shannon MD Hospital Follow-up 09/09/2024 Telephone Internal Medicine [address] [phone] Lorie Gamez MA faxed order ([facility]) 08/26/2024 Telephone Internal Medicine [address] [phone] Elizabet Shannon MD Faxed order 08/24/2024 Telephone [facility] - [address] [place] [phone] Solange Cisneros MA Patient having shortness of breath, edema 08/21/2024 11:00 AM EST Anticoagulation - Warfarin Visit Coumadin [address] [phone] Atrial fibrillation, 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 (CMS/HCC V24, CMS/HCC V28) (Primary Dx); oysterman (current) use of anticoagulants 08/21/2024 Telephone Internal Medicine - [place] 175 [facility] [address] [place] [phone] Janet Mcleod MA Request For Order(s) ([facility]) 08/20/2024 10:56 AM EST - 08/20/2024 11:59 PM EST Hospital Encounter [address] [phone] Evangelina Lou MD Moderate asthma without complication, unspecified whether persistent (Primary Dx) Discharge Disposition: Home or Self Care 08/14/2024 10:50 AM EST Anticoagulation - Warfarin Visit [facility] - [address] [phone] Atrial fibrillation, 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 (CMS/HCC V24, CMS/HCC V28) (Primary Dx); oysterman (current) use of anticoagulants 08/09/2024 Telephone [facility] 154 300 [facility] 154 [place] [phone] Mikael Montoya, ALAINA No Show 08/07/2024 11:10 AM EST Anticoagulation - Warfarin Visit Coumadin [facility] - [address] [phone] Atrial fibrillation, 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 (CMS/HCC V24, CMS/HCC V28) (Primary Dx); senior living (current) use of anticoagulants 08/05/2024 10:56 AM EST - 08/05/2024 11:59 PM EST Hospital Encounter [address] [phone] Evangelina Lou MD Moderate asthma without complication, unspecified whether persistent (Primary Dx) Discharge Disposition: Home or Self Care 07/31/2024 10:50 AM EST Anticoagulation - Warfarin Visit Coumadin [facility] - [address] [phone] Atrial fibrillation, 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 (CMS/HCC V24, CMS/HCC V28) (Primary Dx); oysterman (current) use of anticoagulants 07/26/2024 11:00 AM EST Anticoagulation - Warfarin Visit Coumadin [address] [phone] Atrial fibrillation, 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 (CMS/HCC V24, CMS/HCC V28) (Primary Dx); senior living (current) use of anticoagulants 07/26/2024 Telephone Pulmonolgy - [place] 175 [facility] [address] 200 [place] [phone] Graciela Mckinley MA DME request 07/23/2024 11:00 AM EST Anticoagulation - Warfarin Visit Coumadin [address] [phone] Atrial fibrillation, 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 (CMS/HCC V24, CMS/HCC V28) (Primary Dx); oysterman (current) use of anticoagulants 07/23/2024 Telephone [address] [phone] Felicita Alvarado LPN 07/22/2024 11:00 AM EST - 07/22/2024 11:59 PM EST Hospital Encounter [facility] [address] [facility] 2nd [place] [phone] Evangelina Lou MD Moderate asthma without complication, unspecified whether persistent (Primary Dx) Discharge Disposition: Home or Self Care 07/22/2024 Telephone [facility] 154 300 [facility] 154 [place] [address] Mikael Montoya NP ECHOCARDIOGRAM 07/16/2024 1:00 PM EST Office Visit Internal Medicine - [place] 175 [facility] [address] 200 [place] [phone] Elizabet Shannon MD Acute on chronic heart failure with preserved ejection fraction (CMS/HCC V24, CMS/HCC V28) (Primary Dx); Hospital discharge follow-up; Moderate persistent asthma without complication; History of hypokalemia; Stage 3a chronic kidney disease (CMS/HCC V24, CMS/HCC V28) 07/16/2024 Anticoagulation - [facility]farin [facility] [address] [phone] Taya Camacho LPN Atrial fibrillation, 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 (CMS/HCC V24, CMS/HCC V28) (Primary Dx); senior living (current) use of anticoagulants 07/15/2024 Telephone Internal Medicine - [address] [phone] Janet Mcleod MA Request For Order(s) ([facility] Cert 06/03/24-08/01/24 Plan Of Care /) 07/12/2024 Anticoagulation - Warfarin Visit [facility] [address] [phone] Felicita Alvarado LPN Atrial fibrillation, 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 (CMS/HCC V24, CMS/HCC V28) (Primary Dx); oysterman (current) use of anticoagulants 07/11/2024 1:20 PM EST Office Visit Pulmonolgy - [address] [phone] Chelsea Shi NP Severe persistent asthma with exacerbation ([facility] V28) (Primary Dx); EMERY (obstructive sleep apnea); Acute on chronic diastolic heart failure (CMS/HCC V24, CMS/HCC V28); Chronic atrial fibrillation (CMS/HCC V24, CMS/HCC V28) 07/11/2024 Telephone Internal Medicine - [address] [phone] Elizabet Shannon MD Med Refill from Last 3 Months Surgical History Surgery Date Site/Laterality Comments COLONOSCOPY 06/26/2011 - 06/25/2012 [facility] [place] POL[place] OTHER SURGICAL HISTORY D&C Medical History Medical History Date Comments HTN (hypertension) Dilated aortic root (CMS/HCC V24) PAF (paroxysmal atrial fibrillation) (CMS/HCC V2 4, CMS/HCC V28) Sleep apnea Osteopenia DJD (degenerative joint disease) Chronic shoulder pain Asthma Acquired tracheomalacia Heart failure with preserved ejection fraction (CMS/HCC V24, CMS/HCC V28) CKD (chronic kidney disease) stage 3, GFR 30-59 ml/min (CMS/HCC V24, CMS/HCC V28) Pneumonia Hypothyroid Family History Medical History Relation Name Comments [...] Sign Reading Time Taken Comments Blood Pressure 97/60 10/03/2024 10:46 AM EDT Pulse 77 10/03/2024 10:46 AM EDT Temperature 36.3 ??C (97.4 ??F) 10/03/2024 10:46 AM E DT Respiratory Rate 18 10/03/2024 10:46 AM EDT Oxygen Saturation 98% 10/03/2024 10:46 AM EDT Inhaled Oxygen Concentration - - Weight 79.8 kg (176 lb) 09/17/2024 9:44 AM EDT Height 157.5 cm (5' 2 ) 09/17/2024 9:44 AM EDT Body Mass Index 32.19 09/17/2024 9:44 AM EDT Plan of Treatment Upcoming Encounters Date Type Department Care Team (Latest Contact Info) Description 10/16/2024 11:10 AM EDT Office Visit [facility] [address] 300 [facility] 154 [place] [address] Mikael Montoya NP 300 [place] [address] 10/17/2024 11:00 AM EDT Appointment [facility] [address] [place] [address] 2nd [place] [phone] 10/22/2024 11:10 AM EDT Anticoagulation - Warfarin Visit [facility] - [address] [phone] 11/26/2024 11:00 AM EDT Appointment Radiology Department - [address] [phone] 11/28/2024 10:45 AM EDT Consult Orthopedic Surgery - [place] 250 175 [facility] [address] [place] [phone] Leeroy Schneider, ANDREW [address] [address] 12/18/2024 11:30 AM EDT Office Visit Pulmonolgy - [place] [address] [phone] Chelsea Shi NP [address] [address] 01/06/2025 10:40 AM EDT Office Visit [facility] 154 300 [facility] 154 [place] [phone] Mikael Montoya NP 300 [place] [address] 01/16/2025 10:00 AM EDT Office Visit Internal Medicine - [place] [address] [phone] Elizabet Shannon MD [address] [address] Health Maintenance Due Date Last Done Comments Zoster Vaccines (1 of 2) 1990 RSV Immunization Adult Patients (1 - 1-dose 75+ series) 2015 COVID-19 Vaccine (3 - Moderna risk series) 10/20/2020 09/22/2020, 08/25/2020 Colorectal Cancer Screening: Colonoscopy 05/29/2022 Depression Screening 05/29/2022 Medicare Annual Wellness Visit 05/29/2022 Osteoporosis Screening (Bone Density Screening) 05/29/2022 Social Influencers of Health Screening 05/29/2022 Hypertension/CHF/CAD Annual BMP Blood Test 09/19/2025 09/19/2024, 06/27/2024, 06/24/2024, Additional history exists Falls Risk Assessment 10/03/2025 10/03/2024 Cholesterol Screening (Lipid Panel) 09/19/2029 09/19/2024, 05/09/2024 DTaP,Tdap,and Td Vaccines (3 - Td [...] age to complete this topic Meningococcal B Vaccine Aged Out No l onger eligible based on patient's age to complete this topic RSV Immunization Patients Under 20 months Aged Out No longer eligible based on patient's age to complete this topic Varicella Vaccines Aged Out No longer eligible based on patient's age to complete this topic Procedures Procedure Name Priority Date/Time Associated Diagnosis Comments POC PROTIME INR BLOOD Routine 10/08/2024 Atrial fibrillation, 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 (CMS/[facility] V24, CMS/[facility] V28) oysterman (current) use of anticoagulants CBC WITH AUTO DIFFERENTIAL Routine 10/03/2024 10:26 AM EDT Anemia, 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 IRON AND TIBC Routine 10/03/2024 10:26 AM EDT Anemia, 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 CBC AND DIFFERENTIAL Routine 10/03/2024 10:26 AM EDT Anemia, 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 FERRITIN Routine 10/03/2024 10:26 AM EDT Anemia, 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 PROTHROMBIN TIME WITH INR Routine 10/03/2024 10:25 AM EDT Atrial fibrillation, 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 (CMS/HCC V24, CMS/HCC V28) POC PROTIME INR BLOOD Routine 09/23/2024 Atrial fibrillation, 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 (CMS/HCC V24, CMS/HCC V28) senior living (current) use of anticoagulants ECG 12-LEAD Routine 09/20/2024 2:44 PM EDT Atrial fibrillation, 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 (CMS/HCC V24, CMS/HCC V28) B-TYPE NATRIURETIC PEPTIDE Routine 09/19/2024 1:18 PM EDT Longstanding persistent atrial fibrillation (CMS/HCC V24, CMS/HCC V28) Chronic heart failure with preserved ejection fraction (CMS/HCC V24, CMS/HCC V28) PVD (peripheral vascular disease) (CMS/HCC V24) Moderate mixed hyperlipidemia not requiring statin therapy LIPID PANEL WITH REFLEX TO DIRECT LDL Routine 09/19/2024 1:18 PM EDT Longstanding persistent atrial fibrillation (CMS/HCC V24, CMS/HCC V28) Chronic diastolic heart failure (CMS/HCC V24, CMS/HCC V28) Peripheral vascular disease, unspecified (CMS/HCC V24) Mixed hyperlipidemia BASIC METABOLIC PANEL Routine 09/19/2024 1:18 PM EDT Acute on chronic heart failure with preserved ejection fraction (CMS/HCC V24, CMS/HCC V28) PROTHROMBIN TIME WITH INR STAT 09/19/2024 1:18 PM EDT Chronic atrial fibrillation (CMS/HCC V24, CMS/HCC V28) PVD (peripheral vascular disease) (CMS/HCC V24) senior living (current) use of anticoagulants POC PROTIME INR BLOOD Routine 09/12/2024 Atrial fibrillation, 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 (CMS/HCC V24, CMS/HCC V28) senior living (current) use of anticoagulants POC PROTIME INR BLOOD Routine 08/21/2024 Atrial fibrillation, 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 (CMS/HCC V24, CMS/HCC V28) senior living (current) use of anticoagulants POC PROTIME INR BLOOD Routine 08/14/2024 Atrial fibrillation, 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 (CMS/HCC V24, CMS/HCC V28) senior living (current) use of anticoagulants POC PROTIME INR BLOOD Routine 08/07/2024 Atrial fibrillation, 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 (CMS/HCC V24, CMS/HCC V28) oysterman (current) use of anticoagulants POC PROTIME INR BLOOD Routine 07/31/2024 Atrial fibrillation, 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 (CMS/HCC V24, CMS/HCC V28) senior living (current) use of anticoagulants POC PROTIME INR BLOOD Routine 07/26/2024 Atrial fibrillation, 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 (CMS/HCC V24, CMS/HCC V28) senior living (current) use of anticoagulants PROTHROMBIN TIME WITH INR STAT 07/23/2024 11:35 AM EST Chronic atrial fibrillation (CMS/HCC V24, CMS/HCC V28) PVD (peripheral vascular disease) (CMS/HCC V24) oysterman (current) use of anticoagulants PROTHROMBIN TIME WITH INR Routine 07/16/2024 12:41 PM EST Atrial fibrillation, 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 (CMS/HCC V24, CMS/HCC V28) senior living (current) use of anticoagulants PVD (peripheral vascular disease) (CMS/HCC V24) PROTHROMBIN TIME WITH INR Routine 07/11/2024 1:11 PM EST Atrial fibrillation, 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 ([facility] V24, [facility] V28) senior living (current) use of anticoagulants PVD (peripheral vascular disease) ([facility]24) from Last 3 Months Results * POC Protime INR Blood (10/08/2024) Only the most recent of8 resultswithin the time period is included. Lot Number INR POC 2.7 Prothrombin Time POC Exp Date Blood 10/08/2024 Jerry Akers MD POINT OF CARE TEST ENTER/EDIT O RDERABLES Final Result * (ABNORMAL) CBC auto differential (10/03/2024 10:26 AM EDT) Pathologist [facility] WBC 5.1 4.8 - 10.8 K/mcL LAB HEMETOLOGY METHOD 10/03/2024 11:40 AM [facility] RBC 3.70(L) 3.80 - 4.80 M/mcL LAB HEMETOLOGY METHOD 10/03/2024 11:40 AM [facility] Hemoglobin 10.7(L) 11.5 - 16.0 g/dL LAB HEMETOLOGY METHOD 10/03/2024 11:40 AM [facility] Hematocrit 36.1 35.0 - 47.0 % LAB HEMETOLOGY METHOD 10/03/2024 11:40 AM [facility] MCV 98.6(H) 79.0 - 98.0 FL LAB HEMETOLOGY METHOD 10/03/2024 11:40 AM [facility] MCH 29.2 27.0 - 32.0 pcg LAB HEMETOLOGY METHOD 10/03/2024 11:40 AM [facility] MCHC 29.6(L) 32.0 - 37.0 g/dL LAB HEMETOLOGY METHOD 10/03/2024 11:40 AM [facility] RDW 15.5(H) 11.0 - 15.0 % LAB HEMETOLOGY METHOD 10/03/2024 11:40 AM [facility] Platelets 179 130 - 400 K/mcL LAB HEMETOLOGY METHOD 10/03/2024 11:40 AM [facility] MPV 11.5(H) 7.0 - 11.0 FL LAB HEMETOLOGY METHOD 10/03/2024 11:40 AM [facility] NRBC 0.0 <1.0 % LAB HEMETOLOGY METHOD 10/03/2024 11:40 AM [facility] NRBC Absolute 0.00 <0.10 K/mcL LAB HEMETOLOGY METHOD 10/03/2024 11:40 AM [facility] Neutrophils Relative 54.7 % LAB HEMETOLOGY METHOD 10/03/2024 11:40 AM [facility] Lymphocytes Relative 28.7 % LAB HEMETOLOGY METHOD 10/03/2024 11:40 AM [facility] Monocytes Relative 12.3 % LAB HEMETOLOGY METHOD 10/03/2024 11:40 AM [facility] Eosinophils Relative 3.5 % LAB HEMETOLOGY METHOD 10/03/2024 11:40 AM [facility] Basophils Relative 0.4 % LAB HEMETOLOGY METHOD 10/03/2024 11:40 AM [facility] Immature Granulocytes Relative 0.4 % LAB HEMETOLOGY METHOD 10/03/2024 11:40 AM [facility] Neutrophils Absolute 2.80 1.50 - 7.00 K/mcL LAB HEMETOLOGY METHOD 10/03/2024 11:40 AM [facility] Lymphocytes Absolute 1.47 1.00 - 5.00 K/mcL LAB HEMETOLOGY METHOD 10/03/2024 11:40 AM EDT [facility] Monocytes Absolute 0.63 0.20 - 1.00 K/mcL LAB HEMETOLOGY METHOD 10/03/2024 11:40 AM EDT [facility] Eosinophils Absolute 0.18 0.00 - 0.50 K/mcL LAB HEMETOLOGY METHOD 10/03/2024 11:40 AM EDT [facility] Basophils Absolute 0.02 0.00 - 0.20 K/mcL LAB HEMETOLOGY METHOD 10/03/2024 11:40 AM EDT [facility] Immature Granulocytes Absolute 0.02 0.00 - 0.03 K/mcL LAB HEMETOLOGY METHOD 10/03/2024 11:40 AM EDT [facility] Blood Venous blood specimen / Unknown Venipuncture / Unknown 10/03/2024 10:26 AM EDT 10/03/2024 11:22 AM EDT us Chelsea Shi MARKETING AND PROMOTIONS MANAGER LAB BLOOD ORDERABLES Fi nal Result [facility] [address] [place] [address], * (ABNORMAL) Iron and TIBC (10/03/2024 10:26 AM EDT) Iron 29(L) 40 - 150 mcg/dL LAB CHEMISTRY METHOD 10/03/2024 11:57 AM EDT [facility] TIBC 246(L) 250 - 450 mcg/dL LAB CHEMISTRY METHOD 10/03/2024 11:57 AM EDT [facility] Iron Saturation 12(L) 15 - 50 % LAB CHEMISTRY METHOD 10/03/2024 11:57 AM EDT [facility] Blood Venous blood specimen / Unknown Venipuncture / Unknown 10/03/2024 10:26 AM EDT 10/03/2024 11:22 AM EDT Chelsea Shi MARKETING AND PROMOTIONS MANAGER LAB BLOOD ORDERABLES Fi nal Result Performing Organization Address City/[facility]/ZIP Co de Phone Number [facility] [address] [place] [address], [place] [phone] * Ferritin (10/03/2024 10:26 AM EDT) Pathologist [facility] Ferritin 223 8 - 252 ng/mL LAB CHEMISTRY METHOD 10/03/2024 11:57 AM EDT [facility] Blood Venous blood specimen / Unknown Venipuncture / Unknown 10/03/2024 10:26 AM EDT 10/03/2024 11:22 AM EDT Chelsea Shi MARKETING AND PROMOTIONS MANAGER LAB BLOOD ORDERABLES Fi nal Result Performing Organization Address [facility] de Phone Number [facility] [address] [place] [address], [place] [phone] * (ABNORMAL) Prothrombin time with INR (10/03/2024 10:25 AM EDT) Only the most recent of5 resultswithin the time period is included. [facility] Protime 56.5(H) 10.6 - 13.9 sec LAB COAGULATION METHOD 10/03/2024 11:43 AM EDT [facility] INR 4.6 LAB COAGULATION METHOD 10/03/2024 11:43 AM EDT [facility] Blood Venous blood specimen / Unknown Venipuncture / Unknown 10/03/2024 10:25 AM EDT 10/03/2024 11:22 AM EDT Elizabet Shannon MD LAB BLOOD ORDERABLES Final Resul t Performing Organization Address City/[facility]/ZIP Co de Phone Number [facility] [address] [place] [address], [place] [phone] * ECG 12 lead (09/20/2024 2:44 PM EDT) Ventricular Rate ECG 60 BPM GEMUSE Atrial Rate 58 BPM GEMUSE QRS Duration 104 ms GEMUSE Q-T Interval 404 ms GEMUSE QTc 404 ms GEMUSE R Cedar 12 degrees GEMUSE T Cedar -14 degrees GEMUSE ECG Interpretation Atrial fibrillation Possible Inferior ??myocardial infarction , age undetermined Poor R wave progression Abnormal ECG When compared with ECG of 23-JUN-2024 05:12, Vent. rate has decreased BY ??41 BPM Confirmed by COLE WORKMAN ([id number]) on 09/27/2024 12:32:11 PM GEMUSE 09/17/2024 9:50 AM EDT 09/27/2024 12:32 PM EDT us Mikael Montoya NP ECG ORDERABLES Edited Result - Final GEMUSE * Lipid panel with reflex to direct LDL (09/19/2024 1:18 PM EDT) Cholesterol 136 0 - 200 mg/dL LAB CHEMISTRY METHOD 09/19/2024 4:26 PM EDT [facility] Triglycerides 43 0 - 150 mg/dL LAB CHEMISTRY METHOD 09/19/2024 4:26 PM EDT [facility] HDL 74 >=40 mg/dL LAB CHEMISTRY METHOD 09/19/2024 4:26 PM EDT [facility] LDL Calculated 53 0 - 100 mg/dL LAB CHEMISTRY METHOD 09/19/2024 4:26 PM EDT [facility] VLDL Cholesterol Trino 8.6 mg/dL LAB CHEMISTRY METHOD 09/19/2024 4:26 PM EDT [facility] Non HDL Chol. (LDL+VLDL) 62 <145 mg/dL LAB CHEMISTRY METHOD 09/19/2024 4:26 PM EDT [facility] Chol/HDL Ratio 1.8 0.0 - 4.4 LAB CHEMISTRY METHOD 09/19/2024 4:26 PM EDT [facility] Blood Venous blood specimen / Unknown Venipuncture / Unknown 09/19/2024 1:18 PM EDT 09/19/2024 1:26 PM EDT Mikael Montoya NP LAB BLOOD ORDERABLES Final Resul t Performing Organization Address [facility] Co de Phone Number [facility] [address] [place] [address], [place] [phone] * (ABNORMAL) B-type natriuretic peptide (09/19/2024 1:18 PM EDT) BNP 153(H) <=100 pcg/mL LAB CHEMISTRY METHOD 09/19/2024 5:54 PM EDT [facility] Blood Venous blood specimen / Unknown Venipuncture / Unknown 09/19/2024 1:18 PM EDT 09/19/2024 1:28 PM EDT us Mikael Montoya NP LAB BLOOD ORDERABLES Final Resul t Performing Organization Address [facility] Co de Phone Number [facility] [address] [place] [address], [place] [phone] * (ABNORMAL) Basic metabolic panel (09/19/2024 1:18 PM EDT) Sodium 141 133 - 145 mmol/L LAB CHEMISTRY METHOD 09/19/2024 4:14 PM EDT [facility] Potassium 3.5 3.5 - 5.5 mmol/L LAB CHEMISTRY METHOD 09/19/2024 4:14 PM EDT [facility] Chloride 102 96 - 110 mmol/L LAB CHEMISTRY METHOD 09/19/2024 4:14 PM EDT [facility] CO2 35(H) 21 - 32 mmol/L LAB CHEMISTRY METHOD 09/19/2024 4:14 PM EDT [facility] Anion Gap 4 3 - 11 LAB CHEMISTRY METHOD 09/19/2024 4:14 PM EDT [facility] Glucose 68(L) 70 - 100 mg/dL LAB CHEMISTRY METHOD 09/19/2024 4:14 PM EDT [facility] BUN 40(H) 5 - 25 mg/dL LAB CHEMISTRY METHOD 09/19/2024 4:14 PM EDT [facility] Creatinine 1.62(H) 0.50 - 1.10 mg/dL LAB CHEMISTRY METHOD 09/19/2024 4:14 PM EDT [facility] eGFR 31(L) >=60 mL/min/1. 73m2 LAB CHEMISTRY METHOD 09/19/2024 4:14 PM EDT [facility] Comment:Calculation based on the??Chronic Kidney Disease Epidemiology Collaboration (CKD-EPI) equation refit??without adjustment for race. BUN/Creatinine Ratio 24.7 LAB CHEMISTRY METHOD 09/19/2024 4:14 PM EDT [facility] Calcium 8.5 8.5 - 10.5 mg/dL LAB CHEMISTRY METHOD 09/19/2024 4:14 PM EDT [facility] Blood Venous blood specimen / Unknown Venipuncture / Unknown 09/19/2024 1:18 PM EDT 09/19/2024 1:26 PM EDT us Mikael Montoya NP LAB BLOOD ORDERABLES Final Resul t [facility] [address] [place] [address], from Last 3 Months Insurance [facility]IC[facility] Member Subscriber Plan / Payer (Ef fective 2010-Present) Name:Adriana Roldan Relation to Subscriber:Self Name:Adriana Roldan Payer ID:[id number] Group ID:[id number] Type:Not on file Address: [facility] [address] [id number] Advance Directives Documents on File Type Date Recorded 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
--- OUTSIDE RECORDS SUMMARY | 2024-10-08 18:54 | XMS_ITS | Encounter Summary ---
Author Organization [facility] Address [address] [place] [address] Care Team Providers Care Comptroller Name Role Phone Elizabet Shannon MD Primary Care Provider [phone] Encounter Details Date Type Department Care Team ([facility] st Contact Info) Description 09/17/2024 Telephone Internal Medicine - [place] [address] [address] Elizabet Shannon MD 175 [facility] 200 [place] [address] Social History Tobacco Use Types Packs/Day Years [...] as of this encounter Progress Notes * Sheela Gardner MA - 09/19/2024 11:54 AM EDT Spoke to patient son and stated, medication was changed from 20mg 2 times daily to 40 mg 1 daily. * Chyna Suero - 09/17/2024 3:29 PM EDT Patient son went to appt cardiology Has a question re: A medication That was ordered by Dr. Shannon that was mentioned today at the cardiology appt Please contact Nicko [phone] Medication torsemide 40mg documented in this encounter Plan of Treatment Upcoming Encounters Date Type Department Care Team (Latest Contact Info) Description 10/16/2024 11:10 AM EDT Office Visit [facility] - [facility] 154 300 [facility] 154 [place] [phone] Mikael Montoya NP [address] [place] [address] 10/17/2024 11:00 AM EDT Appointment [facility] [address] [facility] 2nd [place] [phone] 10/22/2024 11:10 AM EDT Anticoagulation - Warfarin Visit [facility] - [address] [phone] 11/26/2024 11:00 AM EDT Appointment Radiology Department - [address] [phone] 11/28/2024 10:45 AM EDT Consult Orthopedic Surgery - [place] [address] [phone] Leeroy Schneider DPM 175 [facility] 250 [place] [address] 12/18/2024 11:30 AM EDT Office Visit Pulmonolgy - [place] 175 [facility] 200 [place] [phone] Chelsea Shi, ALAINA 175 [facility] 200 [place] [address] 01/06/2025 10:40 AM EDT Office Visit [facility] - [facility] [address] [facility] 154 [place] [address] Mikael Montoya NP [address] [place] [address] 01/16/2025 10:00 AM EDT Office Visit Internal Medicine - [place] 175 [facility] 200 [place] [phone] Elizabet Shannon MD 175 [facility] 200 [place] [address] documented as of this encounter Visit Diagnoses Not on filedocumented in this encounter Care Teams Comptroller Relationship Specialty Start Date End Date Elizabet Shannon MD [address] [address] PCP - General Internal Medicine 05/06/24 documented as of this encounter
--- OUTSIDE RECORDS SUMMARY | 2024-10-08 18:54 | XMS_ITS | Encounter Summary ---
Author Organization [facility] Address [address] [place] [address] Care Team Providers Care Wireless Manager Name Role Phone Elizabet Shannon MD Primary Care Provider [phone] Encounter Details Date Type Department Care Team (Late st Contact Info) Description 06/27/2024 Lab Requisition [facility] Main Lab 299 [facility] [place] [address] Bruce Petersen MD [facility] [place], [place] [phone] Hypothyroidism, unspecified; Acute kidney failure, unspecified (CMS/HCC V24); Heart failure, unspecified (CMS/HCC V24, CMS/HCC V28); Essential (primary) hypertension; Unspecified atrial fibrillation (CMS/HCC V24, CMS/HCC V28) Social History Tobacco Use Types Packs/Day Years [...] 10/16/2024 11:10 AM EDT Office Visit [facility] - [facility] 154 300 [facility] 154 [place] [phone] Mikael Montoya NP [address] [place] [address] 10/17/2024 11:00 AM EDT Appointment [facility] [address] [facility] 2nd [place] [phone] 10/22/2024 11:10 AM EDT Anticoagulation - Warfarin Visit [facility] - [address] [phone] 11/26/2024 11:00 AM EDT Appointment Radiology Department - [address] [phone] 11/28/2024 10:45 AM EDT Consult Orthopedic Surgery - [place] 250 175 [facility] 250 [place] [phone] Leeroy Schneider DPM 175 [facility] 250 [place] [address] 12/18/2024 11:30 AM EDT Office Visit Pulmonolgy - [place] 175 [facility] 200 [place] [phone] Chelsea Shi NP 175 [facility] 200 [place] [address] 01/06/2025 10:40 AM EDT Office Visit [facility] Cardiology [facility] 154 300 [facility] 154 [place] [phone] Mikael Montoya NP 300 [place] [address] 01/16/2025 10:00 AM EDT Office Visit Internal Medicine - [address] [place] [phone] Elizabet Shannon MD 175 [facility] 200 [place] [address] documented as of this encounter Procedures Procedure [...] Thyroid stimulating hormone (06/27/2024 8:37 AM EST) TSH 2.33 0.40 - 4.00 mcIU/mL LAB CHEMISTRY METHOD 06/27/2024 11:32 AM EST [facility] ([facility] Blood Venous blood specimen / Unknown Venipuncture / Unknown 06/27/2024 8:37 AM EST 06/27/2024 10:21 AM EST Bruce Petersen MD LAB BLOOD ORDERABLES Final R esult [facility] [address] [place] [address], * (ABNORMAL) Comprehensive metabolic panel (06/27/2024 8:37 AM EST) Sodium 143 133 - 145 mmol/L LAB CHEMISTRY METHOD 06/27/2024 11:25 AM EST [facility] Potassium 4.3 3.5 - 5.5 mmol/L LAB CHEMISTRY METHOD 06/27/2024 11:25 AM [facility] Chloride 103 96 - 110 mmol/L LAB CHEMISTRY METHOD 06/27/2024 11:25 AM [facility] CO2 38(H) 21 - 32 mmol/L LAB CHEMISTRY METHOD 06/27/2024 11:25 AM [facility] Anion Gap 2(L) 3 - 11 LAB CHEMISTRY METHOD 06/27/2024 11:25 AM [facility] Glucose 81 70 - 100 mg/dL LAB CHEMISTRY METHOD 06/27/2024 11:25 AM [facility] BUN 47(H) 5 - 25 mg/dL LAB CHEMISTRY METHOD 06/27/2024 11:25 AM [facility] Creatinine 1.94(H) 0.50 - 1.10 mg/dL LAB CHEMISTRY METHOD 06/27/2024 11:25 AM [facility] eGFR 25(L) >=60 mL/min/1. 73m2 LAB CHEMISTRY METHOD 06/27/2024 11:25 AM [facility] Comment:Calculation based on the??Chronic Kidney Disease Epidemiology Collaboration (CKD-EPI) equation refit??without adjustment for race. BUN/Creatinine Ratio 24.2 LAB CHEMISTRY METHOD 06/27/2024 11:25 AM [facility] Calcium 8.7 8.5 - 10.5 mg/dL LAB CHEMISTRY METHOD 06/27/2024 11:25 AM [facility] AST (SGOT) 28 10 - 42 unit/L LAB CHEMISTRY METHOD 06/27/2024 11:25 AM [facility] ALT (SGPT) 14 10 - 60 unit/L LAB CHEMISTRY METHOD 06/27/2024 11:25 AM [facility] Alkaline Phosphatase 107 42 - 121 unit/L LAB CHEMISTRY METHOD 06/27/2024 11:25 AM [facility] Total Protein 8.1(H) 6.0 - 8.0 g/dL LAB CHEMISTRY METHOD 06/27/2024 11:25 AM [facility] Albumin 2.7(L) 3.2 - 5.0 g/dL LAB CHEMISTRY METHOD 06/27/2024 11:25 AM [facility] Total Bilirubin 0.5 0.0 - 1.4 mg/dL LAB CHEMISTRY METHOD 06/27/2024 11:25 AM [facility] Blood Venous blood specimen / Unknown Venipuncture / Unknown 06/27/2024 8:37 AM EST 06/27/2024 10:21 AM EST Bruce Petersen MD LAB BLOOD ORDERABLES Final R esult [facility] [address] [place] [address], * (ABNORMAL) Prothrombin time with INR (06/27/2024 8:37 AM EST) Protime 19.3(H) 10.6 - 13.9 sec LAB COAGULATION METHOD 06/27/2024 10:45 AM EST [facility] INR 1.5 LAB COAGULATION METHOD 06/27/2024 10:45 AM EST [facility] Blood Venous blood specimen / Unknown Venipuncture / Unknown 06/27/2024 8:37 AM EST 06/27/2024 10:21 AM EST us Bruce Petersen MD LAB BLOOD ORDERABLES Final R esult [facility] [address] [place] [address], * (ABNORMAL) Complete blood count (06/27/2024 8:37 AM EST) WBC 5.0 4.8 - 10.8 K/mcL LAB HEMETOLOGY METHOD 06/27/2024 10:58 AM [facility] RBC 3.90 3.80 - 4.80 M/mcL LAB HEMETOLOGY METHOD 06/27/2024 10:58 AM [facility] Hemoglobin 11.5 11.5 - 16.0 g/dL LAB HEMETOLOGY METHOD 06/27/2024 10:58 AM [facility] Hematocrit 38.6 35.0 - 47.0 % LAB HEMETOLOGY METHOD 06/27/2024 10:58 AM [facility] MCV 99.2(H) 79.0 - 98.0 FL LAB HEMETOLOGY METHOD 06/27/2024 10:58 AM [facility] MCH 29.6 27.0 - 32.0 pcg LAB HEMETOLOGY METHOD 06/27/2024 10:58 AM [facility] MCHC 29.8(L) 32.0 - 37.0 g/dL LAB HEMETOLOGY METHOD 06/27/2024 10:58 AM [facility] RDW 13.6 11.0 - 15.0 % LAB HEMETOLOGY METHOD 06/27/2024 10:58 AM [facility] Platelets 226 130 - 400 K/mcL LAB HEMETOLOGY METHOD 06/27/2024 10:58 AM [facility] MPV 10.7 7.0 - 11.0 FL LAB HEMETOLOGY METHOD 06/27/2024 10:58 AM EST [facility] NRBC 0.0 <1.0 % LAB HEMETOLOGY METHOD 06/27/2024 10:58 AM EST [facility] NRBC Absolute 0.00 <0.10 K/mcL LAB HEMETOLOGY METHOD 06/27/2024 10:58 AM EST [facility] Blood Venous blood specimen / Unknown Venipuncture / Unknown 06/27/2024 8:37 AM EST 06/27/2024 10:21 AM EST Bruce Petersen MD LAB BLOOD ORDERABLES Final R esult [facility] [address] [place] [address], documented in this encounter Visit Diagnoses Diagnosis Hypothyroidism, unspecified Acute kidney failure, unspecified (CMS/HCC V24) Acute kidney failure, unspecified Heart failure, unspecified (CMS/HCC V24, CMS/HCC V28) Heart failure, unspecified Essential (primary) hypertension Unspecified essential hypertension Unspecified atrial fibrillation (CMS/HCC V24, CMS/HCC V28) Encounter for screening mammogram for breast cancer documented in this encounter Care Teams Wireless Manager Relationship Specialty Start Date End Date Elizabet Shannon MD [address] [place] [address] PCP - General Internal Medicine 05/06/24 documented as of this encounter
--- OUTSIDE RECORDS SUMMARY | 2024-10-08 18:54 | XMS_ITS | Encounter Summary ---
Author Organization [facility] Address [address] [place] [address] Care Team Providers Care Decorator Store Name Role Phone Elizabet Shannon MD Primary Care Provider [phone] Reason for Visit * Reason Comments Injections Xolair * Episode Based Medications (Routine) - Authorized Specialty Diagnoses / Procedures Referred By Colten t Referred To Contact Diagnoses Moderate asthma without complication, unspecified whether persistent Evangelina Lou MD [address] [address] Phone: tel: fax: [address] [address] Phone: tel: fax: Referral ID Status Reason Start Date Expiration Date V isits Requested Visits Authorized [id number] Authorized 05/08/2024 05/08/2025 1 28 Encounter Details Date Type Department Care Team (Latest Contact Info) Description 10/03/2024 10:39 AM EDT - 10/03/2024 11:59 PM EDT Hospital Encounter [facility] [address] [phone] Evangelina Lou MD [address] [phone] Moderate asthma without complication, unspecified whether persistent [...] EDT Inhaled Oxygen Concentration - - Weight - - Height - - Body Mass Index - - documented in this encounter Medications at Time of Discharge acetaminophen (TYLENOL) 500 mg tablet TAKE 1 TABLET BY MOUTH EVERY 6 HOURS NEEDED FOR PAIN 30 tablet 1 07/11/2024 albuterol 2.5 mg /3 mL (0.083 %) nebulizer solutionIndicatio ns:Severe persistent asthma with exacerbation ([facility] V28) Take 3 mL (2.5 mg total) by nebulization every 4 (four) hours if needed for wheezing. 300 mL 1 09/26/2024 albuterol HFA (Ventolin HFA) 90 mcg/actuation inhalerIndication s:Severe persistent asthma with exacerbation (CMS/[facility] V28) Inhale 2 puffs by mouth every 4 (four) hours if needed for wheezing or shortness of breath. 8 g 5 07/11/2024 cholecalciferol (VITAMIN D-3) 50 mcg (2,000 unit) capsule TAKE (1) CAPSULE BY MOUTH DAILY 30 capsule 1 09/12/2024 cyanocobalamin (VITAMIN B-12) 1,000 mcg tablet TAKE 1 TABLET BY MOUTH DAILY. 30 tablet 2 08/13/2024 dilTIAZem CD (CARDIZEM CD) 240 mg 24 hr capsule Take 1 capsule (240 mg total) by mouth 1 (one) time each day. ferrous sulfate 325 mg (65 mg elemental iron) tablet Take 1 tablet (325 mg total) by mouth 1 (one) time each day with breakfast. loratadine (CLARITIN) 10 mg tablet TAKE 1 TABLET BY MOUTH DAILY. 28 tablet 09/12/2024 montelukast (SINGULAIR) 10 mg tablet TAKE 1 TABLET BY MOUTH DAILY AT BEDTIME. 28 tablet 09/12/2024 omalizumab (Xolair) 150 mg/mL syringe subcutaneous syringeIndication s:Severe persistent asthma with exacerbation (CMS/HCC V28),Chronic rhinitis Inject 2.5 mL (375 mg total) under the skin every 14 (fourteen) days. 6 mL 11 09/01/2024 omeprazole (PriLOSEC) [address] capsule Take 1 capsule (20 mg total) by mouth 1 (one) time each day. 30 capsule 1 09/12/2024 torsemide 40 mg tablet Take 1 tablet by mouth 1 (one) time each day. 90 tablet 1 09/16/2024 5 Trelegy Ellipta 100-62.5-25 mcg inhaler INHALE 1 PUFF BY MOUTH DAILY. 60 each 2 08/13/2024 warfarin (COUMADIN) 5 mg tablet Take 0.5 tablets (2.5 mg total) by mouth 1 (one) time each day. 90 tablet 1 08/06/2024 levothyroxine (SYNTHROID, LEVOTHROID) 75 mcg tablet Take 1 tablet (75 mcg total) by mouth 1 (one) time each day before breakfast. 5 documented as of this encounter Discharge Disposition Disposition Code Departure Means Destination Home or Self Care documented in this encounter Progress Notes * Aby Henderson RN - 10/03/2024 11:00 AM EDT Adriana arrives via wheelchair with her son today for her Xolair injections - son reports recent hospitalizations for mom - she is doing ok today. Stable assessment completed. Meds released - patient remains in her own wheelchair - given coffee as requested. CTM. 1201 - Xolair injection given , 1 injection to right arm and 2 injections given in left arm. Patient tolerated all with no issues. Has next appt in place. Patient and son declining observation periodat this time. Patient is well appearing - stable upon discharge. documented in this encounter Plan of Treatment Upcoming Encounters Date Type Department Care Team (Latest Contact Info) Description 10/16/2024 11:10 AM EDT Office Visit [facility] - [facility] 154 300 [facility] 154 [place] [phone] Mikael Montoya NP 300 [place] [address] 10/17/2024 11:00 AM EDT Appointment [facility] 271 [facility] 2nd [place] [phone] 10/22/2024 11:10 AM EDT Anticoagulation - Warfarin Visit [facility] - [address] [address] 11/26/2024 11:00 AM EDT Appointment Radiology Department - [address] [address] 11/28/2024 10:45 AM EDT Consult Orthopedic Surgery - [place] 250 175 [facility] 250 [place] [phone] Leeroy Schneider DPM 175 [facility] 250 [place] [address] 12/18/2024 11:30 AM EDT Office Visit Pulmonolgy - [place] 175 [facility] 200 [place] [phone] Chelsea Shi NP 175 [facility] 200 [place] [address] 01/06/2025 10:40 AM EDT Office Visit [facility] - [facility] [address] 300 [facility] 154 [place] [address] Mikael Montoya NP 300 [place] [address] 01/16/2025 10:00 AM EDT Office Visit Internal Medicine - [place] 175 [facility] 200 [place] [address] Elizabet Shannon MD 175 [facility] 200 [place] [address] documented as of this encounter Visit Diagnoses Diagnosis Moderate asthma without complication, unspecified whether persistent- Primary Encounter for screening mammogram for breast cancer documented in this encounter Administered Medications Inactive Administered Medications - up to 3 most recent administrations Medication Order MAR Action Action Date Dose Rate Site omalizumab (XOLAIR) injection 375 mg 375 mg, subcutaneous, Once, On Giselle 10/03/24 at 1115, For 1 dose, Due to viscosity, the injection may take 5-10 seconds to administer. Do not administer more than 150 mg per injection site.Indications:Moderate asthma without complication, unspecified whether persistent Given 10/03/2024 12:01 PM EDT 375 mg Other documented in this encounter Orders Medications Ordered That Homer ht Not Have Been Administered Count Last Ordered Date First Ordered Date omalizumab (XOLAIR) injection 375 mg 1 09/24 Nursing Count Last Ordered Date First Orde red Date ONC NURSING COMMUNICATION 1 10/03/2024 ONC NURSING COMMUNICATION 5 1 10/03/2024 ONC NURSING COMMUNICATION 7 2 10/03/2024 ONC PROVIDER COMMUNICATION 2 1 10/03/2024 documented in this encounter Care Teams Decorator Store Relationship Specialty Start Date End Date Elizabet Shannon MD [address] [address] PCP - General Internal Medicine 05/06/24 documented as of this encounter
--- OUTSIDE RECORDS SUMMARY | 2024-10-08 18:54 | XMS_ITS | Encounter Summary ---
Author Organization [facility] Address [address] [place] [address] Care Team Providers Care Bicycle Repairer Name Role Phone Elizabet Shannon MD Primary Care Provider [phone] Encounter Details Date Type Department Care Team (Late Contact Info) Description 05/09/2024 Lab Requisition [facility] - Main Lab 299 [place] [address] Mikael Montoya NP 300 [place] [address] Mixed hyperlipidemia; Peripheral vascular disease, unspecified (CMS/HCC V24); Chronic diastolic (congestive) heart failure (CMS/HCC V24, CMS/HCC V28); Longstanding persistent atrial fibrillation (CMS/HCC V24, CMS/HCC V28) Social [...] Description 10/16/2024 11:10 AM EDT Office Visit [facility] - [facility] 154 300 [facility] 154 [place] [phone] Mikael Montoya, ALAINA 300 [place] [address] 10/17/2024 11:00 AM EDT Appointment [facility] 271 [facility] 2nd [place] [phone] 10/22/2024 11:10 AM EDT Anticoagulation - Warfarin Visit [facility] - [address] [address] 11/26/2024 11:00 AM EDT Appointment Radiology Department - [address] [address] 11/28/2024 10:45 AM EDT Consult Orthopedic Surgery - [place] 250 175 [facility] 250 [place] [phone] Leeroy Schneider DPM 175 [facility] 250 [place] [address] 12/18/2024 11:30 AM EDT Office Visit Pulmonolgy - [place] 175 [facility] 200 [place] [phone] Chelsea Shi NP 175 [facility] 200 [place] [address] 01/06/2025 10:40 AM EDT Office Visit [facility] Cardiology [facility] - [facility] 154 300 [facility] 154 [place] [phone] Mikael Montoya NP 300 [place] [address] 01/16/2025 10:00 AM EDT Office Visit Internal Medicine - [place] 175 [facility] 200 [place] [address] Elizabet Shannon MD [address] [facility] 200 [place] [address] documented as of this encounter Procedures Procedure [...] * SST tube (05/09/2024 12:00 PM EST) Extra Tube Hold for add-ons. 05/09/2024 4:02 PM EST [facility] ([email or web address] Comment:Auto resulted. Blood Venous blood specimen / Unknown 05/09/2024 12:00 PM EST 05/09/2024 2:34 PM EST us Mikael Montoya NP LAB BLOOD ORDERABLES Final Resul t [facility] ([facility] [[email or web address] 299 [place] [address], * (ABNORMAL) B-type natriuretic peptide (05/09/2024 12:00 PM EST) BNP 134(H) <=100 pcg/mL LAB CHEMISTRY METHOD 05/09/2024 3:57 PM EST [facility] Blood Venous blood specimen / Unknown 05/09/2024 12:00 PM EST 05/09/2024 2:29 PM EST Mikael Montoya NP LAB BLOOD ORDERABLES Final Resul t [facility] 299 [place] [address], [place] [phone] * Lipid panel with reflex to direct LDL (05/09/2024 12:00 PM EST) Cholesterol 133 0 - 200 mg/dL LAB CHEMISTRY METHOD 05/09/2024 4:50 PM [facility] Triglycerides 44 0 - 150 mg/dL LAB CHEMISTRY METHOD 05/09/2024 4:50 PM [facility] HDL 83 >=40 mg/dL LAB CHEMISTRY METHOD 05/09/2024 4:50 PM [facility] LDL Calculated 41 0 - 100 mg/dL LAB CHEMISTRY METHOD 05/09/2024 4:50 PM [facility] VLDL Cholesterol Trino 8.8 mg/dL LAB CHEMISTRY METHOD 05/09/2024 4:50 PM [facility] Non HDL Chol. (LDL+VLDL) 50 <145 mg/dL LAB CHEMISTRY METHOD 05/09/2024 4:50 PM [facility] Chol/HDL Ratio 1.6 0.0 - 4.4 LAB CHEMISTRY METHOD 05/09/2024 4:50 PM [facility] Blood Venous blood specimen / Unknown 05/09/2024 12:00 PM EST 05/09/2024 2:29 PM EST us Mikael Montoya NP LAB BLOOD ORDERABLES Final Resul t [facility] 299 [place] [address], * (ABNORMAL) Basic metabolic panel (05/09/2024 12:00 PM EST) Sodium 141 133 - 145 mmol/L LAB CHEMISTRY METHOD 05/09/2024 4:47 PM [facility] Potassium 3.6 3.5 - 5.5 mmol/L LAB CHEMISTRY METHOD 05/09/2024 4:47 PM [facility] Chloride 105 96 - 110 mmol/L LAB CHEMISTRY METHOD 05/09/2024 4:47 PM [facility] CO2 32 21 - 32 mmol/L LAB CHEMISTRY METHOD 05/09/2024 4:47 PM [facility] Anion Gap 4 3 - 11 LAB CHEMISTRY METHOD 05/09/2024 4:47 PM [facility] Glucose 118(H) 70 - 100 mg/dL LAB CHEMISTRY METHOD 05/09/2024 4:47 PM [facility] BUN 34(H) 5 - 25 mg/dL LAB CHEMISTRY METHOD 05/09/2024 4:47 PM [facility] Creatinine 1.54(H) 0.50 - 1.10 mg/dL LAB CHEMISTRY METHOD 05/09/2024 4:47 PM [facility] eGFR 33(L) >=60 mL/min/1. 73m2 LAB CHEMISTRY METHOD 05/09/2024 4:47 PM [facility] Comment:Calculation based on the??Chronic Kidney Disease Epidemiology Collaboration (CKD-EPI) equation refit??without adjustment for race. BUN/Creatinine Ratio 22.1 LAB CHEMISTRY METHOD 05/09/2024 4:47 PM [facility] Calcium 8.9 8.5 - 10.5 mg/dL LAB CHEMISTRY METHOD 05/09/2024 4:47 PM EST [facility] Blood Venous blood specimen / Unknown 05/09/2024 12:00 PM EST 05/09/2024 2:29 PM EST us Mikael Montoya NP LAB BLOOD ORDERABLES Final Resul t [facility] ([facility] [[email or web address] 299 [place] [address], documented in this encounter Visit Diagnoses Diagnosis Mixed hyperlipidemia Peripheral vascular disease, unspecified ([facility] V24) Peripheral vascular disease, unspecified Chronic diastolic (congestive) heart failure ([facility] V24, [facility] V28) Longstanding persistent atrial fibrillation ([facility] V24, [facility] V28) Encounter for screening mammogram for breast cancer documented in this encounter Additional Health Concerns Infection Onset Date Last Indicated Resolved Time Respiratory Rule-Out 06/18/2024 06/18/2024 024 5:27 PM EST COVID-19 Rule-Out 06/18/2024 06/18/2024 06/18/2024 5:27 PM EST documented as of this encounter Care Teams Bicycle Repairer Relationship Specialty Start Date End Date Elizabet Shannon MD [address] [place] [address] PCP - General Internal Medicine 05/06/24 documented as of this encounter
--- OUTSIDE RECORDS SUMMARY | 2024-10-08 18:54 | XMS_ITS | Encounter Summary ---
Author Organization [facility] Address [address] [place] [address] Care Team Providers Care Hospice Educator Name Role Phone Elizabet Shannon MD Primary Care Provider [phone] Reason for Visit * Reason Onset Date Comments faxed order 10/08/2024 HomeCare Deliver ed Encounter Details Date Type Department Care Team (Late st Contact Info) Description 10/08/2024 Telephone Internal Medicine - [place] 175 [facility] [address] [place] [address] Lorie Gamez MA faxed order ([facility] Delivered) Social History Tobacco Use Types Packs/Day Years [...] as of this encounter Progress Notes * Lorie Gamez MA - 10/08/2024 8:47 AM EDT [facility] Delivered medical supply Written order for wound care [id number], A6446, A6252, A4217 A4450, A6216 * Lorie Gamez MA - 10/08/2024 8:24 AM EDT [facility] Delivered medical supply Written order for incontinence supplies A4927, T4528, T4541, A4335, A6250 Placed in providers folder for signature. documented in this encounter Plan of Treatment Upcoming Encounters Date Type Department Care Team (Latest Contact Info) Description 10/16/2024 11:10 AM EDT Office Visit [facility] - [facility] 154 300 [facility] 154 [place] [phone] Mikael Montoya NP 300 [place] [address] 10/17/2024 11:00 AM EDT Appointment [facility] 271 [facility] 2nd [place] [address] 10/22/2024 11:10 AM EDT Anticoagulation - Warfarin Visit [facility] - [address] [phone] 11/26/2024 11:00 AM EDT Appointment Radiology Department - [address] [phone] 11/28/2024 10:45 AM EDT Consult Orthopedic Surgery - [place] [address] [phone] Leeroy Schneider DPM 175 [facility] 250 [place] [address] 12/18/2024 11:30 AM EDT Office Visit Pulmonolgy - [place] 175 [facility] 200 [place] [phone] Chelsea Shi, ALAINA 175 [facility] 200 [place] [address] 01/06/2025 10:40 AM EDT Office Visit [facility] - [facility] [address] 300 [facility] 154 [place] [address] Mikael Montoya NP 300 [place] [address] 01/16/2025 10:00 AM EDT Office Visit Internal Medicine - [place] 175 [facility] 200 [place] [address] Elizabet Shannon MD 175 [facility] 200 [place] [address] documented as of this encounter Visit Diagnoses Not on filedocumented in this encounter Care Teams Hospice Educator Relationship Specialty Start Date End Date Elizabet Shannon MD [address] [address] PCP - General Internal Medicine 05/06/24 documented as of this encounter
--- OUTSIDE RECORDS SUMMARY | 2024-10-08 18:54 | XMS_ITS | Encounter Summary ---
Author Organization [facility] Address [address] [place] [address] Care Team Providers Care Cath Lab Technologist Name Role Phone Elizabet Shannon MD Primary Care Provider [phone] Encounter Details Date Type Department Care Team (Latest Contact Info) Description 07/05/2024 Lab Requisition [facility] - Main Lab 299 [facility] [place] [address] Bruce Petersen MD [facility] [place], [place] [phone] Unspecified atrial fibrillation (CMS/HCC V24, CMS/HCC V28); Other thrombophilia (CMS/HCC V24) Social History Tobacco Use Types Packs/Day Years [...] Description 10/16/2024 11:10 AM EDT Office Visit [facility] - [facility] 154 300 [facility] 154 [place] [address] Mikael Montoya NP 300 [place] [address] 10/17/2024 11:00 AM EDT Appointment [facility] 271 [facility] 2nd [place] [address] 10/22/2024 11:10 AM EDT Anticoagulation - Warfarin Visit [facility]madin Clinic - [address] [address] 11/26/2024 11:00 AM EDT Appointment Radiology Department - [address] [address] 11/28/2024 10:45 AM EDT Consult Orthopedic Surgery - [place] [address] [address] Leeroy Schneider DPM [address] [address] 12/18/2024 11:30 AM EDT Office Visit Pulmonolgy - [place] [address] [phone] Chelsea Shi NP [address] [address] 01/06/2025 10:40 AM EDT Office Visit [facility]iology [facility] 154 300 [facility] 154 [place] [phone] Mikael Montoya NP 300 [place] [address] 01/16/2025 10:00 AM EDT Office Visit Internal Medicine - [place] [address] [address] Elizabet Shannon MD [address] [address] documented as of this encounter Visit Diagnoses Diagnosis Unspecified atrial fibrillation ([facility] V24, [facility] V28) Other thrombophilia ([facility] V24) Encounter for screening mammogram for breast cancer documented in this encounter Care Teams Cath Lab Technologist Relationship Specialty Start Date End Date Elizabet Shannon MD [address] [address] PCP - General Internal Medicine 05/06/24 documented as of this encounter
--- OUTSIDE RECORDS SUMMARY | 2024-10-08 18:54 | XMS_ITS | Encounter Summary ---
Author Organization [facility] Address 100 [facility] 200 [place] [address] Phone Care Team Providers Care Absorption Plant Operator Name Role Phone Amaya Lewis MD Primary Care Provider [phone] Reason for Visit * Reason Comments Med Refill Encounter Details Date Type Department Care Team (Late Contact Info) Description 08/30/2023 Refill [facility] [address] [place] [phone] Jose Hardy MD [address] [facility] 204 [place] [address] Social History Tobacco Use Types [...] Office Visit [facility] [address] [place] [address] Jose Hardy MD [address] [facility] 204 [place] [address] documented as of this encounter Visit Diagnoses Not on filedocumented in this encounter Care Teams Absorption Plant Operator Relationship Specialty Start Date End Date Amaya Lewis MD [address] [place] PCP - General Internal Medicine 05/20/24 documented as of this encounter
--- OUTSIDE RECORDS SUMMARY | 2024-10-08 18:54 | XMS_ITS | Encounter Summary ---
Author Organization [facility] Address [address] [place] [address] Care Team Providers Care Change Management Specialist Name Role Phone Elizabet Sahnnon MD Primary Care Provider [phone] Encounter Details Date Type Department Care Team (Late st Contact Info) Description 06/28/2024 Lab Requisition [facility] - Main Lab 299 [facility] [place] [phone] Ricardo Rhodes MD [address] [place] [address] Unspecified atrial fibrillation (CMS/HCC V24, CMS/HCC V28); [...] Description 10/16/2024 11:10 AM EDT Office Visit [facility] - [facility] 154 300 [facility] 154 [place] [phone] Mikael Montoya, ALAINA 300 [place] [address] 10/17/2024 11:00 AM EDT Appointment [facility]fusion Center 271 [facility] 2nd [place] [phone] 10/22/2024 11:10 AM EDT Anticoagulation - Warfarin Visit [facility]madin Clinic - [address] [address] 11/26/2024 11:00 AM EDT Appointment Radiology Department - [address] [phone] 11/28/2024 10:45 AM EDT Consult Orthopedic Surgery - [place] 250 175 [facility] 250 [place] [phone] Leeroy Schneider DPM [address] [address] 12/18/2024 11:30 AM EDT Office Visit Pulmonolgy - [place] [address] [phone] Chelsea Shi NP 175 [facility] 200 [place] [address] 01/06/2025 10:40 AM EDT Office Visit [facility] - [facility] 154 300 [facility] 154 [place] [phone] Mikael Montoya NP 300 [place] [address] 01/16/2025 10:00 AM EDT Office Visit Internal Medicine - [place] [address] [address] Elizabet Shannon MD [address] [address] documented as of this encounter Procedures Procedure Name Priority Date/Time Associated Diagnosis Comments PROTHROMBIN TIME WITH INR Routine 07/01/2024 7:21 AM EST Unspecified atrial fibrillation (CMS/HCC) Other thrombophilia (CMS/HCC) documented in this encounter Results * (ABNORMAL) Prothrombin time with INR (07/01/2024 7:21 AM EST) Protime 18.5(H) 10.6 - 13.9 sec LAB COAGULATION METHOD 07/01/2024 11:35 AM EST [facility] INR 1.5 LAB COAGULATION METHOD 07/01/2024 11:35 AM EST [facility] Blood Venous blood specimen / Unknown Venipuncture / Unknown 07/01/2024 7:21 AM EST 07/01/2024 11:03 AM EST us Ricardo Rhodes MD LAB BLOOD ORDERABLES Final Resul t [facility] 299 [place] [address], documented in this encounter Visit Diagnoses Diagnosis Unspecified atrial fibrillation (CMS/HCC V24, CMS/HCC V28) Other thrombophilia (CMS/HCC V24) Encounter for screening mammogram for breast cancer documented in this encounter Care Teams Change Management Specialist Relationship Specialty Start Date End Date Elizabet Shannon MD [address] [address] PCP - General Internal Medicine 05/06/24 documented as of this encounter
--- OUTSIDE RECORDS SUMMARY | 2024-10-08 18:54 | XMS_ITS | Clinical Summary ---
Author Organization [facility] Address [address] [place] [address] Care Team Providers Care Prosthetist Name Role Phone Rishi Lion MD Primary Care Provide r Allergies Active Allergy Reactions Criticality Noted Date Comments [id number]-[id number]-[id number] 3 Digoxin 08/05/2022 Pt an sson unsure [...] age to complete this topic Care Teams Prosthetist Relationship Specialty Start Date End Date Rishi Lion MD [address] [place] [address] PCP - General Internal Medicine 08/05/22
--- OUTSIDE RECORDS SUMMARY | 2024-10-08 18:54 | XMS_ITS | Continuity of Care Document ---
Author Organization [employer] Address [address] [place] [address] Care Team Providers Care Berry Picker Name Role Phone HIM CCA OTHER DAWKINSAPRILShekhar Primary Care Provider Assessment Encounter Date Assessment Date Assessment LastModified by Organization Details LastModified Time 10/08/2024 10/08/2024 As noted, we were called to see this patient regarding concerns of Sob and coughing up blood. Evaluation in the field was performed by my fish machine feeder colleague, as noted above, I provided real-time [...] is on Coumadin. Patient was admitted to [facility]. For congestive heart failure a couple of weeks ago. On fish machine feeder exam, the patient appears tired. She has [...] called by me to the Er at [facility] Primary care, consider f/u on Er visit Disposition: to ER at [place] We discussed the situation and I recommended referral to the emergency department. This was based on Hemoptysis [email or web address] Not available 10/08/2024 14:51:32 Plan of Treatment Reminders Order Date Submit Date Provider Last Modified By Organization Details Last Modified Time Details Appointments Urgent Care 2024 01:36P Myesha BRYANT MD Not available Not available Not available Lab rapid SARS CoV 2 Ag, QL IA, respirato ry specimen [address], [address] [place] [address] 10/08/2024 14:42:29 rapid flu (A+B) [address], [address] [place] [address] 10/08/2024 14:42:29 Referral None recorded. Procedures None recorded. Surgeries None recorded. Imaging electroca rdiogram [address], [address] 10/08/2024 14:48:42 Medication Orders None recorded. Patient TargetsNo targets recorded. Patient InstructionsNo instructions recorded. Reason for Referral None Reported. Results Created Date Observation Date Name Description Value Unit Range Abnormal Flag Note LastModifiedBy Organization Detail LastModifiedTime 10/09/19 25 elect rocar diogr am No observ ation record ed. [address], [address] [place] [address] 10/08/2024 14:47:19 Result Notes None recorded. Procedures Surgical History None recorded. Imaging Results Imaging Date Name Status LastModified by Organiz ation Details LastModified Time 10/08/2024 electrocardiogram active [address], [address] [place] [address] 10/08/2024 14:47:19 Procedure Notes None recorded. Medical Equipment None Reported. Allergies Allergen ID Allergen Name Allergen Category Reaction Reaction Severity Criticality Documentation Date Start Date Code Code System Note Provider Name and Address Organization Details Recorded Time 155 simvastat in medicatio n Not available Not available Not available 09/10/2021 51545 RxNorm Not Available [facility] 5 16:24:19 156 lisinopri l medicatio n Not available Not available Not available 09/10/2021 24273 RxNorm Not Available [facility] 5 16:24:19 157 Zocor medicatio n Not available Not available Not available 09/10/2021 25862 3 RxNorm Livia Green MD [address] [facility],[address], [place], [address], [facility] 2 15:51:37 1698 Cortane-B medicatio n Not available Not available Not available 06/30/2022 18874 5 RxNorm liste d in her chart in [facility] my chart Livia Green MD [address], [place], [address], [employer] 3 12:15:06 1699 digoxin medicatio n Not available Not available Not available 06/30/2022 3407 RxNorm liste d in my chart - [facility] Livia Green MD [address] [facility],[address], [place], [address], [facility] 3 12:15:26 Medications Name Sig Start Date [...] N ot Available Vitals Date Recorded Body weight Respiratory rate Body temperature Oxygen saturation Oxygen saturation in Arterial blood by Pulse oximetry Body height Heart rate Systolic blood pressure Diastolic blood pressure Provider Name and Address Organization Details Last Updated DateTime 5 90688.3 76 g 20 /min 97.6 [degF] 94 % 94 % 160.02 cm 72 /min 126 mm[Hg] 70 mm[Hg] Not Available [facility] production 14:36:48 Social History None recorded. Functional Status None recorded. Mental Status None recorded. Family History Nothing Reported. Medical History No medical history recorded. Gynecological HistoryNo gynecological history recorded. Obstetrics History GPAL:G 0 P 0 0 0 0 Past Encounters Encounter ID Performer Location Encounter Start Date Encounter Closed Date Diagnosis/Indication Diagnosis SNOMED-CT Code Diagnosis ICD10 Code Diagnosis Note [id number] LEELA BRYANT MD Main - [facility] [address] [place] [phone] 10/08/2024 14:36:17 10/08/2024 16:02:04 Hemoptysis 85799934 R04.2 Health Concerns Section Related Observation LastModified by Organization Detai ls LastModified Time None Recorded Concern Status LastModified by Organization Details LastModified Time None Recorded Payers Encounter Date Sequence Insurance Name Policy Number Policy Potts Covered Member ID Potts Member ID Guarantor Name 10/08/2024 1 [facility] DOS ON OR AFTER 2022 - DUAL ELIGIBLE - LONGTERM OPTIONS AND ONE CARE (MEDICARE REPLACEMENT/ADV ANTAGE - HMO) Adriana Roldan [id number] Adriana Roldan Notes Date Note Type Note Provider Name and Address Organization Details Recorded Time 10/08/2024 text/html CRC Nurse Triage Notes (Marii [...] Hypertension, Asthma, Chronic Kidney DiseasePMH Reviewed at 10/08/2024:40Allergies Reviewed at 10/08/2024 - :40Comments: Per [facility], patient with progressively worsening shortness of breath, worse today. Cough x2 weeks. Noticed blood tinged sputum. Does not wish to go to the ER. Patient saw [facility] last week, was given 5 day course of Prednisone that was finished last week. 02 sat 94% RA. On Coumadin, INR today was 2.7. LE edema at baseline. No fever/chills. Dental Laboratory Worker Organization Information for Salvador Le Asael Legal Name: [employer]?Address: [address] [place] [address], Medical Director: Kye Montaño [facility] No.: [id number] Dental Laboratory Worker POC Test Results from Salvador Le ARGENIS EKG (14:34:24)EKG test performed.Emelymen ts uploaded as part of this test result can be found under Documents section. Rapid COVID antigen (14:35:17)COVID: - Rapid influenza antigen (14:35:17)Flu: - ................... ................... ................... ................... ................... ................... ................... ........ Dental Laboratory Worker Note From Salvador Le: JADIEL is met at the front entry of the apartment building by pt's son. He tells [facility] his mother has not been feeling well [...] she breathes through pursed lips. Pt is Mohawk-speaking only, son provides translation. Pt is found [...] or pursed-lip breathing. Neither is observed by SHAUN during visit. She yawn frequently during visit and closes her eyes as if nodding off to sleep frequently. She tells MILor she feels bad . When asked how she feels bad, she c/o body aches, coughing, and sob. She denies LOGAN and fevers, but does endorse some chills a couple days ago. She is needing to sleep more upright than normal, but is denying night sweats. Son says she uses [employer] during the day, but not at night. When [facility] tries to clarify if this is correct, [...] day for two weeks. Pt is anticoagulated. [facility] obtains vital signs and pt is swabbed for COVID/flu. Pt has rales in the bases bilateral w/ auscultation of the lungs, but no wheezing or rhonchi at this time. Cough is noted to be hard and productive. A 12 lead EKG is obtained and shows atrial fibrillation. COVID/flu are negative. [facility] calls [facility] and discusses the above and the collective consensus is pt should return to the hospital for further workup. Family and pt are amendable and [facility] calls 911. Pt is transported to [facility] by [facility]. [facility] is clear. Report completed by MÓNICA Le [id number]. [facility] Lab Orders: rapid SARS CoV 2 Ag, QL IA, respiratory specimen: Performed rapid flu (A+B): Performed ................... ................... ................... ................... ................... ................... ................... ........ [facility] Consulted: Leela Bryant ................... ................... ................... ................... ................... ................... ................... ........ Disposition: Fulfilled LEELA BRYANT MD [address] [facility], [place], [address], [employer] PALMER 10/08/2024 15:47:15 OBGyn Episode No OBEpisode recorded.
--- OUTSIDE RECORDS SUMMARY | 2024-10-08 18:54 | XMS_ITS | Encounter Summary ---
Author Organization [facility] Address [address] [place] [address] Care Team Providers Care Supervisor Metal Fabricating Name Role Phone Rishi Lion MD Primary Care [facility] Encounter Details Date Type Department Care Team [...] Description 10/16/2024 11:10 AM EDT Office Visit [facility] 154 [address] [facility] 154 [place] [phone] Mikael Montoya NP [address] [place] [address] 10/17/2024 11:00 AM EDT Appointment [facility] [address] [facility] 2nd [place] [phone] 10/22/2024 11:10 AM EDT Anticoagulation - Warfarin Visit [facility] - [address] [address] 11/26/2024 11:00 AM EDT Appointment Radiology Department - [address] [address] 11/28/2024 10:45 AM EDT Consult Orthopedic Surgery - [place] [address] [address] Leeroy Schneider, DPM 175 [facility] 250 [place] [address] 12/18/2024 11:30 AM EDT Office Visit Pulmonolgy - [place] 175 [facility] 200 [place] [phone] Chelsea Shi NP 175 [facility] 200 [place] [address] 01/06/2025 10:40 AM EDT Office Visit [facility] 154 [address] [facility] 154 [place] [phone] Mikael Montoya NP [address] [place] [address] 01/16/2025 10:00 AM EDT Office Visit Internal Medicine - [place] 175 [facility] 200 [place] [phone] Elizabet Shannon MD [address] [address] documented as of this encounter Visit Diagnoses Not on filedocumented in this encounter Additional Health Concerns Infection Onset Date Last Indicated Resolved Time Respiratory Rule-Out 06/18/2024 06/18/2024 024 5:27 PM EST COVID-19 Rule-Out 06/18/2024 06/18/2024 06/18/2024 5:27 PM EST documented as of this encounter Care Teams Supervisor Metal Fabricating Relationship Specialty Start Date End Date Rishi Lion MD [address] [place] [address] [place] [address] PCP - General 04/04/24 05/05/24 documented as of this encounter
--- OUTSIDE RECORDS SUMMARY | 2024-10-08 18:54 | XMS_ITS | Encounter Summary ---
Author Organization [facility] Address [address] [place] [address] Care Team Providers Care Chief I Dispatcher Name Role Phone Elizabet Shannon MD Primary Care Provider [phone] Encounter Details Date Type Department Care Team (Latest Contact Info) Description 07/03/2024 Lab Requisition [facility] - Main Lab 299 [facility] [place] [address] Bruce Petersen MD [facility] [place], [place] [phone] Other thrombophilia (CMS/HCC V24); FDC (current) use of anticoagulants Social History Tobacco [...] Description 10/16/2024 11:10 AM EDT Office Visit [facility] - [facility] [address] [facility] 154 [place] [phone] Mikael Montoya NP 300 [place] [address] 10/17/2024 11:00 AM EDT Appointment [facility] 271 [facility] 2nd [place] [phone] 10/22/2024 11:10 AM EDT Anticoagulation - Warfarin Visit [facility] - [address] [address] 11/26/2024 11:00 AM EDT Appointment Radiology Department - [address] [address] 11/28/2024 10:45 AM EDT Consult Orthopedic Surgery - [place] 250 175 [facility] 250 [place] [address] Leeroy Schneider DPM 175 [facility] 250 [place] [address] 12/18/2024 11:30 AM EDT Office Visit Pulmonolgy - [place] 175 [facility] 200 [place] [phone] Chelsea Shi NP 175 [facility] 200 [place] [address] 01/06/2025 10:40 AM EDT Office Visit [facility] Cardiology [facility] [address] [facility] 154 [place] [phone] Mikael Montoya NP 300 [place] [address] 01/16/2025 10:00 AM EDT Office Visit Internal Medicine - [place] 175 [facility] 200 [place] [phone] Elizabet Shannon MD [address] [address] documented as of this encounter Procedures Procedure Name Priority Date/Time Associated Diagnosis Comments PROTHROMBIN TIME WITH INR Routine 07/04/2024 8:20 AM EST Other thrombophilia (CMS/HCC) FDC (current) use of anticoagulants documented in this encounter Results * (ABNORMAL) Prothrombin time with INR (07/04/2024 8:20 AM EST) Protime 17.6(H) 10.6 - 13.9 sec LAB COAGULATION METHOD 07/04/2024 10:07 AM EST [facility] INR 1.4 LAB COAGULATION METHOD 07/04/2024 10:07 AM EST [facility] Blood Venous blood specimen / Unknown Venipuncture / Unknown 07/04/2024 8:20 AM EST 07/04/2024 9:45 AM EST us Bruce Petersen MD LAB BLOOD ORDERABLES Final R esult [facility] [address] [place] [address], documented in this encounter Visit Diagnoses Diagnosis Other thrombophilia (CMS/HCC V24) FDC (current) use of anticoagulants Long-term (current) use of anticoagulants Encounter for screening mammogram for breast cancer documented in this encounter Care Teams Chief I Dispatcher Relationship Specialty Start Date End Date Elizabet Shannon MD [address] [address] PCP - General Internal Medicine 05/06/24 documented as of this encounter
--- NOTE | 2024-10-08 19:40 | P.HPHOSP_ITS ---
History of Present Illness Date of Service: 10/08/24 Attending physician on admission: Chente Dominguez Chief Complaint: Dyspnea, hemoptysis Patient is an 84-year-old Latvian-speaking female with past medical history COPD/asthma, HFpEF, peripheral vascular disease, sleep apnea currently on CPAP, AFib on Coumadin, stage II sacral decubitus wound, chronic kidney disease, hypertension, hypothyroid and GERD presents to the emergency department after 48 hours plus of increasing shortness of breath and noted hemoptysis. Per patient's son patient's INR has been elevated and her Coumadin has been on hold. INR today is 2.3. Patient required oxygenation for acute hypoxia and is currently on 4 L with a pulse ox of 95%. CTA completed to rule out PE. Negative for PE, but noted a right lower lobe pneumonia. All viral studies currently are negative. Patient denies any recent travel or being exposed to anyone with respiratory illness. Patient does not use home O2. Patient normally sleeps in a recliner. Patient currently denies any chest pain, shortness of breath at rest, fever, chills, nausea, vomiting, diarrhea or constipation issues. In the emergency department patient received 20 mg of Lasix IV x1. Patient was started on ceftriaxone and doxycycline. Patient can not start azithromycin due to Coumadin. Patient's son expressing concerns about patient living alone noting patient has in-home nursing services for her wound care and goes [facility]. Patient is no longer able to ambulate due to significant peripheral vascular disease and is now using a wheelchair. Patient is also noncompliant with CHF guidelines including diet and fluid allowance. Patient has had 2 other admissions since May of 2024 for similar issues. Case management referral will be made. Review of Systems 2 Review of Systems: Patient currently denies any chest, shortness of breath at rest, nausea, vomiting but does have a cough that is sometimes productive and has been appearing blood-tinged. Per patient's son INR has been elevated and Coumadin clinic has told patient to hold her Coumadin. Son reports that patient is receiving nursing care for a stage II decubitus ulcer. Patient also reports trouble ambulating at this point and is able to transfer from chair to wheelchair. Patient recently diagnosed with sleep apnea and currently is using CPAP with a nasal mask. Yes all other systems are reviewed and are negative [facility] Medical History (Updated 10/08/24 @ 20:45 by ALEX Shafer) Pneumonia Hypotension JEN (acute kidney injury) Tricuspid valve regurgitation Pulmonary hypertension Acute on chronic right heart failure Idiopathic hypotension Sepsis Cellulitis of right leg Lymphedema Non-healing wound of right lower extremity Venous stasis dermatitis of right lower extremity CHF (congestive heart failure) Hypothyroid Afib Asthma HTN (hypertension) Cognitive capacity: hebrew speaking, alert and orientated X3 Functional capacity: wheelchair bound Family History Mother Gastric cancer Surgical History S/P hip replacement Social History Household Members: None Housing: Apartment Do you presently have visiting nurse or other home services: Yes ([employer]) Alcohol intake: never Comment: sleeping in recliner Patient Tobacco Use Status: Never used Tobacco Second Hand Smoke Exposure: No Advance Directives: Yes Advance Directives on File: Yes Advance Directives Date on File: 02/05/21 service: No Current occupational status: disabled Ebola Risk: Travel/Contact With Anyone From Affected Area/s: No Has Patient Experienced Ebola Symptoms: No Meds Allergies Allergy/AdvReac Type Severity Reaction Status Date / Time lisinopril [LISINOPRIL] Allergy Unknown UNKNOWN Verified 10/08/24 15:40 simvastatin [SIMVASTATIN] Allergy Unknown UNKNOWN Verified 10/08/24 15:40 Active Medications: Current Medications Acetaminophen (Acetaminophen 325 Mg Tablet) 650 mg PO Q6H PRN PRN Reason: Pain, Mild 1-3,fever,headache Albuterol/Ipratropium (Albuterol/Iprat 2.5/0.5mg 3 Ml Ampul.Neb) 3 ml INHALE Q4H PRN PRN Reason: Shortness of Breath/Wheezing Benzonatate (Benzonatate 100 Mg Capsule) 100 mg PO TID PRN PRN Reason: Cough Calcium Carbonate (Calcium Carbonate 750 Mg Tab.Chew) 750 mg PO Q4H PRN PRN Reason: Heartburn Enoxaparin Sodium (Enoxaparin Sodium 40 Mg/0.4 Ml Syringe) 40 mg SUBCUT Q24H SEBASTIAN Doxycycline Hyclate 100 mg/ (Sodium Chloride) 250 mls @ 166.67 mls/hr IV ONCE ONE Stop: 10/08/24 20:43 Magnesium Hydroxide (Milk Of Magnesia 30 Ml Oral.Susp) 30 ml PO DAILY PRN PRN Reason: Constipation Melatonin (Melatonin 3 Mg Tablet) 6 mg PO BEDTIME PRN PRN Reason: Insomnia Ondansetron HCl (Ondansetron Hcl 4 Mg/2 Ml Vial) 4 mg IVPUSH Q8H PRN PRN Reason: Nausea and Vomiting Polyethylene Glycol (Polyethylene Glycol 3350 17 Gm Powd.Pack) 17 gm PO DAILY PRN PRN Reason: Constipation Senna (Sennosides 8.6 Mg Tablet) 17.2 mg PO BEDTIME [facility] Sodium Chloride (0.9 % Sodium Chloride Flush 3 Ml Syringe) 3 [facility] Home Medications ?Medication ?Instructions ?Recorded ?Confirmed ?Last Taken ?Type cholecalciferol (vitamin D3) 50 50 mcg PO DAILY 02/04/21 10/08/24 10/07/24 History mcg (2,000 unit) capsule (Vitamin D3) loratadine 10 mg tablet 10 mg PO DAILY 02/04/21 10/08/24 10/07/24 History omeprazole 20 mg capsule,delayed 20 mg PO DAILY@0630 02/04/21 10/08/24 10/07/24 History release fluticasone fur. 100 mcg-umeclid 1 puff inhalation DAILY 05/03/21 10/08/24 10/07/24 History 62.5 mcg-vilant 25 mcg inhalat.powder (Trelegy Ellipta) albuterol sulfate 2.5 mg/3 mL 2.5 mg inhalation Q4H PRN 08/09/21 10/08/24 Unknown History (0.083 %) solution for nebulization Shortness Of Breath montelukast 10 mg tablet 1 tab PO DAILY 08/09/21 10/08/24 10/07/24 History cyanocobalamin (vitamin B-12) 1,000 mcg PO DAILY 05/29/24 10/08/24 10/07/24 History 1,000 mcg tablet diltiazem HCl 240 mg 240 mg PO DAILY 05/29/24 10/08/24 10/07/24 History capsule,extended release 24 hr levothyroxine 75 mcg tablet 75 mcg PO DAILY@0600 05/29/24 10/08/24 10/07/24 History torsemide 20 mg tablet 40 mg PO BID 08/26/24 10/08/24 10/07/24 History warfarin 5 mg tablet 2.5 mg PO DAILY@1800 08/26/24 10/08/24 10/07/24 History Physical Exam 2 Vital Signs and Narrative: Vital Signs: Last Vital Signs Temp 97.9 F 10/08/24 18:11 Pulse 92 10/08/24 18:11 Resp 22 H 10/08/24 18:11 BP 132/73 10/08/24 18:11 Pulse Ox 98 10/08/24 18:11 O2 Del Method Nasal Cannula 10/08/24 18:11 O2 Flow Rate 4 10/08/24 18:11 BMI result Body Mass Index 31.5 Alert and orientated X3, hebrew speaking, able to answer questions with translation Neuro: CN II-X11 intact, general weakness noted in BLE's, visual acuity fair EYES: PERRLA, EOM intact, periorbital edema present, mild conjunctivits R eye, crusty drainage noted ENT: hearing intact, no issues with swallowing, uvula midline, lips moist, nares patent no epistaxis Cardiac: S1 S2 RRR, no murmur, positive JVD, mild edema in Lower ext Pulmonary: lungs diminished B, R sided rhonchi no wheezing, productive cough sputum brown tinged Abdominal: BS active in all 4 quadrants, no guarding, tenderness, rebounding MSK: strength 5/5 upper and lower extremities : no CVA tenderness no bladder distension Extremities: no edema in lower extremities, PT and DP pulses palpable +2 Psych: mood stable, judgement and insight fair Skin: stage II decubitus ulcer sacrum covered with protective dressing. BLEs with evidence of healed stasis ulcers, skin is uneven, with plaques of hard, dense tissue on BLEs Results Labs 10/08/24 15:57 10/08/24 15:57 Labs: Laboratory Results - last 24 hr 10/08/24 10/08/24 10/08/24 15:56 15:57 17:24 MCV 95.9 MCH 28.9 MCHC 30.2 L RDW 15.4 Plt Count 171 MPV 10.9 Immature Gran % (Auto) 0.5 H Neut % (Auto) 63.3 Lymph % (Auto) 19.0 L Beauregard % (Auto) 12.5 H Eos % (Auto) 4.2 H Baso % (Auto) 0.5 Lymph # (Auto) 1.1 L Beauregard # (Auto) 0.8 Eos # (Auto) 0.3 Baso # (Auto) 0.0 Abs Immat Gran (auto) 0.03 Absolute Neuts (auto) 3.8 Absolute Nucleated RBC 0.000 Nucleated RBC % (auto) 0.0 PT 26.6 H D INR 2.3 H Anion Gap 13 Estim Creat Clear Calc 33.7 Estimated GFR 41 Random Glucose 92 Lactic Acid 1.0 Calcium 8.9 Magnesium 1.8 Total Bilirubin 0.5 AST 20 ALT 12 Alkaline Phosphatase 98 B-Natriuretic Peptide 208 H Total Protein 7.2 Albumin 3.1 L Influenza Type A (PCR) NEGATIVE Influenza Type B (PCR) NEGATIVE RSV RNA Qual (PCR) NEGATIVE SARS-CoV-2 RNA (RT-PCR) NEGATIVE ECG Attestation: I personally reviewed and interpreted this ECG as follows: (Atrial fibrillation Possible Inferior infarct (cited on or before 05-Oct-2021) Possible Anterior infarct (cited on or before 05-Oct-2021) Abnormal ECG) Prior ECG tracings: available for review Imaging Radiologist's Impressions: CTA Impression: No pulmonary embolism. Right lower lobe pneumonia. Correlate with chest radiographs and follow up to resolution. Assessment and Plan (1) Acute hypoxic respiratory failure: Status: Acute (2) Pneumonia of right lower lobe due to infectious organism: Status: Acute (3) CHF (congestive heart failure): Qualifiers: Heart failure chronicity: chronic Heart failure type: systolic Q ualified Code(s): I50.22 - Chronic systolic (congestive) heart failure Status: Acute (4) COPD (chronic obstructive pulmonary disease): Qualifiers: COPD type: COPD with acute lower respiratory infection Qualified Code(s): J44.0 - Chronic obstructive pulmonary disease with (acute) lower respiratory infection Status: Acute (5) Conjunctivitis: Qualifiers: Acute conjunctivitis type: unspecified Conjunctivitis type: acute L aterality: bilateral Qualified Code(s): H10.33 - Unspecified acute conjunctivitis, bilateral Status: Acute (6) Stage II decubitus ulcer: Qualifiers: Pressure injury location: sacral region Qualified Code(s): L89.152 - Pressure ulcer of sacral region, stage 2 Status: Acute (7) Generalized weakness: Status: Acute (8) EMERY (obstructive sleep apnea): Status: Acute (9) Afib: Qualifiers: Atrial fibrillation type: persistent (not longstanding) Qualified Code(s): I48.19 - Other persistent atrial fibrillation Status: Acute Plan Patient is an 84-year-old Latvian-speaking female with past medical history COPD/asthma, HFpEF, peripheral vascular disease, sleep apnea currently on CPAP, AFib on Coumadin, stage II sacral decubitus wound, chronic kidney disease, hypertension, hypothyroid and GERD is found to have a right lower lobe pneumonia, exacerbation of CHF with acute hypoxic respiratory failure and requires admission to the hospital. Acute hypoxic respiratory failure -Patient requiring 4 L nasal cannula. Patient does not use home O2 and may need to be assessed for home oxygen needs noting 2 other admissions for similar issues since May of 2024. -Duo nebs for shortness of breath or wheezing -Lasix 20 IV x1 in the ED -Antibiotics for pneumonia and we will follow guidelines for CHF management Pneumonia of the right lower lobe -Ceftriaxone and doxycycline initiated, lactate normal no evidence of sepsis -Duo nebs, supportive care with antitussives -Oxygen via nasal cannula, wean as tolerated -Incentive spirometer HFpEF with exacerbation -Lasix 20 IV b.i.d., added potassium supplementation 20 mEq daily -Low-sodium diet -Daily weights -Strict I's and O's -CHF education -Last Echo 09/02/2024 EF 60-65%, mild AVR, mild MVR, mild TVR COPD/asthma -Trelegy ordered once med rec completed -Jeremie p.r.n. -Oxygen via nasal cannula, patient may need home O2 Conjunctivitis -Sulfacetamide drops q.3 hours times 48 hours. Monitor for improvement and adjust frequency as indicated Stage II decubitus ulcer -Wound consult ordered -Continue with protective dressing and topical skin care -Encourage patient to turn and position every 2 hours while awake, out of bed to chair when tolerated -Nutritional consult ordered Generalized weakness -Patient currently lives alone and family is expressing concerns that patient may not be able to live alone any longer -No falls reported -Patient is currently wheelchair-bound is unable to ambulate -Case management referral made as family is requesting information on how to move forward EMERY -Patient recently diagnosed and uses CPAP at home via nasal mask -Family did not bring in their home CPAP device -CPAP ordered no inpatient may not tolerate fullface mask -Plan will be to continue nasal cannula and oxygen administration overnight if patient can not tolerate AFib -Patient is on Coumadin and was told by the [facility]madin Clinic to hold the Coumadin as the INR was elevated -INR is 2.3 today -Notified pharmacist that patient will be coming in on Coumadin -INR in the a.m. and per pharmacist ordered 2.[address] that order on hold until we see the INR in the a.m. -Rate remains irregular but controlled, we will continue Cardizem -Patient did have report of hemoptysis, this was not witnessed in the emergency department. H and H is stable. DVT prophylaxis patient currently on Coumadin PPI ordered Pt is a full code Med rec is completed Patient requires inpatient hospitalization due to acute hypoxia and a right lower lobe pneumonia requiring oxygenation via nasal cannula and IV antibiotics. Patient may require up to 72 hours or more of inpatient hospitalization. Total time managing care of this patient today: 45 minutes. Quality Stroke Does the patient have a stroke diagnosis?: No Reason for No Anti-thrombotic by Day Two: N/A - Med Ordered VTE Prior VTE?: No VTE Risk Level:: Medical - moderate - high VTE Device Contraindication: N/A - Device Ordered VTE Drug Contraindication: N/A - Med Ordered
[2024-10-08] MEDS: Enoxaparin Sodium 40 MG/0.4 ML SYRINGE SUBCUT (20:28)
[2024-10-08] MEDS: Doxycycline Hyclate 100 MG in 0.9 % Sodium Chloride 250 ML 166.67 MG IV (20:28)
[2024-10-08] MEDS: Benzonatate 100 MG CAPSULE PO (20:29)
--- NOTE | 2024-10-08 20:32 | HE.PHANOTE ---
Addendum entered by Darion Tate 10/08/24 20:38: Provider noted patient has hemoptysis, so okay to hold tonight despite INR in range for A-fib Original Note: re Warfarin Patient goes to a clinic at home and was told her level was high today and to skip her dose. Dose held tonight pending INR, will need to follow up in the morning to decide on a regimen with provider.
[2024-10-08] MEDS: Budesonide 0.5 MG/2 ML AMPUL.NEB INHALE (20:33)
--- NOTE | 2024-10-08 20:39 | PHA.MEDREC ---
Addendum entered by Trevon Dela Cruz [facility] 10/08/24 20:56: med rec reviewed Original Note: Pharmacy Consult ? Medication Reconciliation Pharmacy has completed the medication reconciliation. Spoke to patient son at bedside ro confirm med list. Son was able to confirm all of patient medications. Patient son confirmed her doctor told patient to hold Warfarin dose today and started 2.5 mg tomorrow. Patient get her INR checked at [place]. Patient last took her medication yesterday.
[2024-10-08] MEDS: Sennosides 8.6 MG TABLET 17.2 MG PO (21:26)
[2024-10-08] MEDS: Sulfacetamide Sodium 10 % Oph 15 ML DRBTL 2 DROP EYE-BOTH (21:28)
--- NOTE | 2024-10-08 23:25 | PC.NURSE ---
This internal communications writer assumed care of this Pt at 2300.
[2024-10-09] VITALS (11 sets, daily range): BP systolic 98–135; BP diastolic 43–82; PULSE 88–102; RESP 18–24; TEMP 36.6–37.3; O2SAT 94–98; BMI 31.5
[2024-10-09] MEDS: 0.9 % Sodium Chloride Flush 3 ML SYRINGE IVFLUSH ×4 (00:22→20:58)
[2024-10-09] MEDS: Sulfacetamide Sodium 10 % Oph 15 ML DRBTL 2 DROP EYE-BOTH ×8 (00:23→20:52)
[2024-10-09] MEDS: Levothyroxine Sodium 75 MCG TABLET PO (05:17)
[2024-10-09] MEDS: Doxycycline Hyclate 100 MG in 0.9 % Sodium Chloride 250 ML 166.67 MG IV ×2 (05:17→16:35)
[2024-10-09 05:49] LABS: MANUAL DIFF FLAG NO
[2024-10-09 05:50] LABS: Basophils Percent Auto 0.5 % (0-2); Eosinophils Absolute Auto 0.2 X10*3/uL (0.0-0.4); Eosinophils Percent Auto 3.6 % (0-4); Hematocrit 33.1 % (37.0-47.0); Hemoglobin 9.8 g/dl (12.0-16.0); Imm Gran Abs Auto 0.04 X10*3/uL (0.00-0.03); Imm Gran Pct Auto 0.7 % (0.0-0.4); Lymphocytes Absolute Auto 1.3 X10*3/uL (1.2-4.9); Lymphocytes Percent Auto 23.4 % (20-40); Mean Corpuscular HGB Conc 29.6 g/dl (31.0-35.0); Mean Corpuscular Hemoglobin 28.7 pg (27.0-33.0); Mean Corpuscular Volume 96.8 fL (80.0-98.0); Monocytes Absolute Auto 0.9 X10*3/uL (0.1-1.2); Monocytes Percent Auto 16.6 % (2-11); Neutrophils Absolute Auto 3.1 x10*3/uL (2.0-8.3); Neutrophils Percent Auto 55.2 % (45-73); Platelet Count 175 X10*3/uL (160-400); Red Blood Count 3.42 X10*6/uL (4.20-5.50); Red Cell Distribution Width 15.5 % (11.0-16.0); White Blood Count 5.6 X10*3/uL (4.8-10.8)
[2024-10-09 05:57] LABS: INTERNATIONAL NORM RATIO 2.3 (0.9-1.1); Prothrombin Time 27.3 SEC (10.9-12.4)
[2024-10-09 06:06] LABS: Anion Gap 11 (12-20); Blood Urea Nitrogen 27 mg/dL (9-16); Calcium 8.5 mg/dL (8.4-10.2); Carbon Dioxide 31 mmol/L (22-29); Chloride 105 mmol/L (96-108); Creatinine Clr Calc Pharmacy 36.3; Estimated Glomerular Filt Rate 45; Glucose Random 83 mg/dL (60-115); Potassium 4.1 mmol/L (3.3-5.1); Sodium 143 mmol/L (135-145)
[2024-10-09] MEDS: Benzonatate 100 MG CAPSULE PO (06:30)
[2024-10-09] MEDS: Pantoprazole Sodium 40 MG/10 ML VIAL IVPUSH (06:30)
[2024-10-09] MEDS: Budesonide 0.5 MG/2 ML AMPUL.NEB INHALE (07:39)
[2024-10-09] MEDS: Montelukast Sodium 10 MG TABLET PO (08:35)
[2024-10-09] MEDS: Loratadine 10 MG TABLET PO (08:35)
[2024-10-09] MEDS: Cyanocobalamin (Vitamin B-12) 1,000 MCG TABLET 1000 MCG PO (08:35)
[2024-10-09] MEDS: Potassium Chloride ER 20 MEQ TAB.ER.PRT PO (08:35)
[2024-10-09] MEDS: Cholecalciferol (Vitamin D3) 25 MCG TABLET 50 MCG PO (08:35)
[2024-10-09] MEDS: dilTIAZem HCL CD 240 MG CAP.ER.DEG PO (09:18)
[2024-10-09] MEDS: Fluticasone/Umeclidinium/Vilanterol 100/62.5/25 BLST.W.DEV 1 PUFF INHALE (09:19)
[2024-10-09 09:26] LABS: Procalcitonin 0.16 ng/mL
--- NOTE | 2024-10-09 09:36 | MHC.CLN ---
Addendum entered by Allyn Ellsworth RD 10/09/24 16:17: SEE CLINICAL NUTRITION ASSESSMENT 10/09/24. Original Note: NUTRITION PATIENT IN ED OVERFLOW. CONSULT FOR STAGE II WOUND. DIET=CARDIAC. ADDING ENSURE MAX BID TO PROMOTE WOUND HEALING. SUPPLEMENT PROVIDES 300 KCALS, 60 G PROTEIN. CLINICAL NUTRITION ASSESSMENT TO BE COMPLETED UPON ADMISSION.
--- NOTE | 2024-10-09 11:14 | PC.NURSE ---
Report received, taken over care at this time.
--- NOTE | 2024-10-09 11:16 | MHC.CM.PN ---
IMM 10/09/24, Pt. lives alone, has home health services from [facility], and goes to the wound clinic. HCP is on file and confirmed: Nicko, PCP is confirmed: Elizabet Shannon. For DME, she has CPAP machine, Walker, cane, nebulizer. Family to transport home at DC, DCP: home, resume services. CM to follow for DC needs.
[2024-10-09 12:06] LABS: MRSA Nasal PCR POSITIVE (Negative); SA Nasal PCR POSITIVE (Negative)
--- NOTE | 2024-10-09 12:47 | P.PNIM_ITS ---
Subjective Subjective Date of Service: 10/09/24 Interval History: This history was taken in Nepali from the patient. Coughing up small amount of blood Dyspnea improved Diuresing Review of Systems Review of Systems: Yes all other systems are reviewed and are negative Physical Exam 2 Vital Signs: Vital Signs: Last Vital Signs Temp 98.1 F 10/09/24 12:00 Pulse 88 10/09/24 12:00 Resp 18 10/09/24 12:00 BP 135/77 10/09/24 12:00 Pulse Ox 98 10/09/24 12:00 O2 Del Method Room Air 10/09/24 12:00 O2 Flow Rate 1 10/09/24 08:27 BMI result Body Mass Index 31.5 Gen: in no acute distress HEENT: sclera anicteric, moist mucus membranes Neck: supple Lungs: R basilar inspiratory crackles Heart: irregular, no murmurs Abd: soft, non-tender, non-distended Ext: no edema Skin: warm/well-perfused Neuro: alert and oriented x3, no focal findings Psych: appropriate affect Objective Data Active Medications Acetaminophen (Acetaminophen 325 Mg Tablet) 650 mg PO Q6H PRN PRN Reason: Pain, Mild 1-3,fever,headache Albuterol/Ipratropium (Albuterol/Iprat 2.5/0.5mg 3 Ml Ampul.Neb) 3 ml INHALE Q4H PRN PRN Reason: Shortness of Breath/Wheezing Benzonatate (Benzonatate 100 Mg Capsule) 100 mg PO TID PRN PRN Reason: Cough Last Admin: 10/09/24 06:30 Dose: 100 mg Documented By: TRACEY Budesonide (Budesonide 0.5 Mg/2 Ml Ampul.Neb) 0.5 mg INHALE RBID [facility] Last Admin: 10/09/24 07:39 Dose: 0.5 mg Documented By: SCOVILLor Calcium Carbonate (Calcium Carbonate 750 Mg Tab.Chew) 750 mg PO Q4H PRN PRN Reason: Heartburn Ceftriaxone Sodium (Ceftriaxone Sodium 1 Gm Vial) 1 gm IVPUSH Q24H [facility] Cyanocobalamin (Cyanocobalamin (Vitamin B-12) 1,000 Mcg Tablet) 1,000 mcg PO DAILY [facility] Last Admin: 10/09/24 08:35 Dose: 1,000 mcg Documented By: JOSE CRUZ Diltiazem HCl (Diltiazem Hcl Cd 240 Mg Cap.Er.Deg) 240 mg PO DAILY [facility]; Protocol Last Admin: 10/09/24 09:18 Dose: 240 mg Documented By: JOSE CRUZ Enoxaparin Sodium (Enoxaparin Sodium 40 Mg/0.4 Ml Syringe) 40 mg SUBCUT Q24H [facility] Last Admin: 10/08/24 20:28 Dose: 40 mg Documented By: MADDISON Fluticasone/Umeclidinium/Vilanterol (Fluticasone/Umeclidinium/Vilanterol 100/62.5/ Blst.W.Dev) 1 puff INHALE RDAILY [facility] Last Admin: 10/09/24 09:19 Dose: 1 puff Documented By: MARQUITA Doxycycline Hyclate 100 mg/ (Sodium Chloride) 250 mls @ 166.67 mls/hr IV Q12H [facility] Last Infusion: 10/09/24 07:33 Dose: Infused Documented By: JOSE CRUZ Levothyroxine Sodium (Levothyroxine Sodium 75 Mcg Tablet) 75 mcg PO DAILY@0600 [facility] Last Admin: 10/09/24 05:17 Dose: 75 mcg Documented By: TRACEY Loratadine (Loratadine 10 Mg Tablet) 10 mg PO DAILY [facility] Last Admin: 10/09/24 08:35 Dose: 10 mg Documented By: JOSE CRUZ Magnesium Hydroxide (Milk Of Magnesia 30 Ml Oral.Susp) 30 ml PO DAILY PRN PRN Reason: Constipation Melatonin (Melatonin 3 Mg Tablet) 6 mg PO BEDTIME PRN PRN Reason: Insomnia Montelukast Sodium (Montelukast Sodium 10 Mg Tablet) 10 mg PO DAILY [facility] Last Admin: 10/09/24 08:35 Dose: 10 mg Documented By: JOSE CRUZ Ondansetron HCl (Ondansetron Hcl 4 Mg/2 Ml Vial) 4 mg IVPUSH Q8H PRN PRN Reason: Nausea and Vomiting Pantoprazole Sodium (Pantoprazole Sodium 40 Mg/10 Ml Vial) 40 mg IVPUSH DAILY@0630 [facility] Last Admin: 10/09/24 06:30 Dose: 40 mg Documented By: TRACEY Polyethylene Glycol (Polyethylene Glycol 3350 17 Gm Powd.Pack) 17 gm PO DAILY PRN PRN Reason: Constipation Potassium Chloride (Potassium Chloride Er 20 Meq Tab.Er.Prt) 20 meq PO DAILY [facility] Last Admin: 10/09/24 08:35 Dose: 20 meq Documented By: JOSE CRUZ Senna (Sennosides 8.6 Mg Tablet) 17.2 mg PO BEDTIME [facility] Last Admin: 10/08/24 21:26 Dose: 17.2 mg Documented By: MADDISON Sodium Chloride (0.9 % Sodium Chloride Flush 3 Ml Syringe) 3 ml IVFLUSH QSHIFT [facility] Last Admin: 10/09/24 08:41 Dose: 3 ml Documented By: JOSE CRUZ Sulfacetamide Sodium (Sulfacetamide Sodium 10 % Oph 15 Ml Drbtl) 2 drop EYE- BOTH Q3H [facility] Stop: 10/10/24 21:00 Last Admin: 10/09/24 12:36 Dose: 2 drop Documented By: LUIS ENRIQUE Vitamin D (Cholecalciferol (Vitamin D3) 25 Mcg Tablet) 50 mcg PO DAILY [facility] Last Admin: 10/09/24 08:35 Dose: 50 mcg Documented By: JOSE CRUZ Warfarin Sodium (Warfarin Sodium 2.5 Mg Tablet) 2.5 mg PO DAILY@1800 [facility] Labs 10/09/24 05:36 10/09/24 05:36 Labs: Laboratory Results - last 24 hr 10/08/24 10/08/24 10/08/24 15:56 15:57 17:24 MCV 95.9 MCH 28.9 MCHC 30.2 L RDW 15.4 Plt Count 171 MPV 10.9 Immature Gran % (Auto) 0.5 H Neut % (Auto) 63.3 Lymph % (Auto) 19.0 L [place] % (Auto) 12.5 H Eos % (Auto) 4.2 H Baso % (Auto) 0.5 Lymph # (Auto) 1.1 L [place] # (Auto) 0.8 Eos # (Auto) 0.3 Baso # (Auto) 0.0 Abs Immat Gran (auto) 0.03 Absolute Neuts (auto) 3.8 Absolute Nucleated RBC 0.000 Nucleated RBC % (auto) 0.0 PT 26.6 H D INR 2.3 H Anion Gap 13 Estim Creat Clear Calc 33.7 Estimated GFR 41 Random Glucose 92 Lactic Acid 1.0 Calcium 8.9 Magnesium 1.8 Total Bilirubin 0.5 AST 20 ALT 12 Alkaline Phosphatase 98 B-Natriuretic Peptide 208 H Total Protein 7.2 Albumin 3.1 L Procalcitonin Nasal Screen MRSA (PCR) Nasal S. aureus Screen Nasal MRSA/S.aureus Interp Influenza Type A (PCR) NEGATIVE Influenza Type B (PCR) NEGATIVE RSV RNA Qual (PCR) NEGATIVE SARS-CoV-2 RNA (RT-PCR) NEGATIVE 10/09/24 10/09/24 05:36 10:14 MCV 96.8 MCH 28.7 MCHC 29.6 L RDW 15.5 Plt Count 175 MPV 11.0 Immature Gran % (Auto) 0.7 H Neut % (Auto) 55.2 Lymph % (Auto) 23.4 [place] % (Auto) 16.6 H Eos % (Auto) 3.6 Baso % (Auto) 0.5 Lymph # (Auto) 1.3 [place] # (Auto) 0.9 Eos # (Auto) 0.2 Baso # (Auto) 0.0 Abs Immat Gran (auto) 0.04 H Absolute Neuts (auto) 3.1 Absolute Nucleated RBC 0.000 Nucleated RBC % (auto) 0.0 PT 27.3 H INR 2.3 H Anion Gap 11 L Estim Creat Clear Calc 36.3 Estimated GFR 45 Random Glucose 83 Lactic Acid Calcium 8.5 Magnesium Total Bilirubin AST ALT Alkaline Phosphatase B-Natriuretic Peptide Total Protein Albumin Procalcitonin 0.16 Nasal Screen MRSA (PCR) POSITIVE A Nasal S. aureus Screen POSITIVE A Nasal MRSA/S.aureus Interp SEE NOTE Influenza Type A (PCR) Influenza Type B (PCR) RSV RNA Qual (PCR) SARS-CoV-2 RNA (RT-PCR) Assessment and Plan (1) Pneumonia: Status: Acute Plan d2 for 84yo F with COPD/asthma, HFpEF, PVD, EMERY on CPAP, AF on warfarin, stage 2 sacral decibutis wound, CKD, HTN, hypothyroidism, and GERD presenting with dyspnea + hemoptysis, admitted for hypoxia due to PNA + CHF pneumonia of RLL COPD/asthma exac - ceftriaxone + doxycycline, follow BCx, trend PCT, check MRSA swab + urinary antigens for Legionella and pneumococcus - start prednisone 40 mg/d; prn nebs; continue Trelegy acute hypoxic respiratory failure - supplemental O2, wean as tolerated; was on 4L on admission and currently doing well on 2L; not on home O2 acute-chronic HFpEF - given furosemide IV and now appears euvolemic; hold further diuresis - TTE 09/02/24: - The left ventricular systolic function is normal. The visually estimated ejection fraction is between 60-65%. - There is mild aortic valve regurgitation. - There is mild mitral valve regurgitation. - There is mild tricuspid valve regurgitation. chronic AF - warfarin; daily INR while on ABX - continue diltiazem conjunctivitis - sulfacetamide drops EMERY - CPAP hypothyroidism - continue LT4 stage II decubitus ulcer -wound care consultation VTE ppx - warfarin dispo - eventual home with VNA services In my clinical judgment, the patient requires continued inpatient hospitalization for the following reasons: hypoxia, IV ABX I updated the pt's son at bedside Total time managing care of this patient today: 45 minutes. Quality Stroke Does the patient have a stroke diagnosis?: No Reason for No Anti-thrombotic by Day Two: N/A - Med Ordered VTE Prior VTE?: No VTE Risk Level:: Medical - moderate - high VTE Device Contraindication: N/A - Device Ordered VTE Drug Contraindication: N/A - Med Ordered
[2024-10-09] MEDS: predniSONE 20 MG TABLET 40 MG PO (13:23)
--- NOTE | 2024-10-09 14:01 | PC.NURSE ---
Notation of wounds on buttocks, new dressings applied. Pt. offered cleaning wipes at this time. Pt. requesting shower, but had informed her that we do not have showers in ER and she is on a heart monitor and told her she has to be monitored. Son at bedside informed and aware.
--- NOTE | 2024-10-09 16:15 | PC.NURSE ---
Pt. given bed bath/ wiped up, new linen and gown changed. Pt. has no c/o or pain.
[2024-10-09] MEDS: Acetaminophen 325 MG TABLET 650 MG PO (16:34)
[2024-10-09] MEDS: cefTRIAXone sodium 1 GM VIAL IVPUSH (17:49)
[2024-10-09] MEDS: Sennosides 8.6 MG TABLET 17.2 MG PO (20:52)
[2024-10-10] MEDS: Sulfacetamide Sodium 10 % Oph 15 ML DRBTL 2 DROP EYE-BOTH ×8 (01:05→20:29)
[2024-10-10 04:00] VITALS: BP 108/65; PULSE 81; RESP 18; TEMP 36.3; O2SAT 95
[2024-10-10] MEDS: Doxycycline Hyclate 100 MG in 0.9 % Sodium Chloride 250 ML 166.67 MG IV ×2 (04:25→17:52)
[2024-10-10 06:00] VITALS: BMI 32.9
[2024-10-10 07:12] LABS: INTERNATIONAL NORM RATIO 1.8 (0.9-1.1); Prothrombin Time 20.8 SEC (10.9-12.4)
[2024-10-10] MEDS: Pantoprazole Sodium 40 MG/10 ML VIAL IVPUSH (07:26)
[2024-10-10] MEDS: Levothyroxine Sodium 75 MCG TABLET PO (07:26)
[2024-10-10 07:30] LABS: Blood Urea Nitrogen 30 mg/dL (9-16); Calcium 8.8 mg/dL (8.4-10.2); Creatinine Clr Calc Pharmacy 34.7; Estimated Glomerular Filt Rate 41; Glucose Random 111 mg/dL (60-115); Magnesium 1.8 mg/dL (1.6-2.6)
[2024-10-10 07:39] VITALS: BP 115/69; PULSE 90; RESP 20; TEMP 36.8; O2SAT 96
[2024-10-10 07:39] LABS: Anion Gap 13 (12-20); Carbon Dioxide 31 mmol/L (22-29); Chloride 106 mmol/L (96-108); Potassium 5.1 mmol/L (3.3-5.1); Sodium 145 mmol/L (135-145)
[2024-10-10 08:27] LABS: B Type Natriuretic Peptide 399 pg/mL (<100)
[2024-10-10] MEDS: predniSONE 20 MG TABLET 40 MG PO (08:51)
[2024-10-10] MEDS: 0.9 % Sodium Chloride Flush 3 ML SYRINGE IVFLUSH ×3 (08:51→20:29)
[2024-10-10] MEDS: Cholecalciferol (Vitamin D3) 25 MCG TABLET 50 MCG PO (08:51)
[2024-10-10] MEDS: Montelukast Sodium 10 MG TABLET PO (08:51)
[2024-10-10] MEDS: dilTIAZem HCL CD 240 MG CAP.ER.DEG PO (08:51)
[2024-10-10] MEDS: Cyanocobalamin (Vitamin B-12) 1,000 MCG TABLET 1000 MCG PO (08:51)
[2024-10-10] MEDS: Loratadine 10 MG TABLET PO (08:51)
[2024-10-10] MEDS: Fluticasone/Umeclidinium/Vilanterol 100/62.5/25 BLST.W.DEV 1 PUFF INHALE (09:00)
[2024-10-10 09:06] VITALS: PULSE 90; RESP 18; O2SAT 96
[2024-10-10 12:00] VITALS: BP 113/60; PULSE 75; RESP 20; TEMP 36.8; O2SAT 95
--- NOTE | 2024-10-10 15:25 | P.PNIM_ITS ---
Subjective Subjective Date of Service: 10/10/24 Interval History: This history was taken in Maltese from the patient. Cough improving. Less hemoptysis. Dyspnea improved. Review of Systems Review of Systems: Yes all other systems are reviewed and are negative Physical Exam 2 Vital Signs: Vital Signs: Last Vital Signs Temp 98.2 F 10/10/24 12:00 Pulse 75 10/10/24 12:00 Resp 20 10/10/24 12:00 BP 113/60 10/10/24 12:00 Pulse Ox 95 10/10/24 12:00 O2 Del Method Nasal Cannula 10/10/24 12:00 O2 Flow Rate 2 10/10/24 12:00 BMI result Body Mass Index 32.9 Gen: in no acute distress HEENT: sclera anicteric, moist mucus membranes Neck: supple Lungs: R basilar inspiratory crackles Heart: irregular, no murmurs Abd: soft, non-tender, non-distended Ext: no edema Skin: warm/well-perfused Neuro: alert and oriented x3, no focal findings Psych: appropriate affect Objective Data Active Medications Acetaminophen (Acetaminophen 325 Mg Tablet) 650 mg PO Q6H PRN PRN Reason: Pain, Mild 1-3,fever,headache Last Admin: 10/09/24 16:34 Dose: 650 mg Documented By: LUIS ENRIQUE Albuterol/Ipratropium (Albuterol/Iprat 2.5/0.5mg 3 Ml Ampul.Neb) 3 ml INHALE Q4H PRN PRN Reason: Shortness of Breath/Wheezing Benzonatate (Benzonatate 100 Mg Capsule) 100 mg PO TID PRN PRN Reason: Cough Last Admin: 10/09/24 06:30 Dose: 100 mg Documented By: SERRANX Calcium Carbonate (Calcium Carbonate 750 Mg Tab.Chew) 750 mg PO Q4H PRN PRN Reason: Heartburn Ceftriaxone Sodium (Ceftriaxone Sodium 1 Gm Vial) 1 gm IVPUSH Q24H [facility] Last Admin: 10/09/24 17:49 Dose: 1 gm Documented By: LUIS ENRIQUE Cyanocobalamin (Cyanocobalamin (Vitamin B-12) 1,000 Mcg Tablet) 1,000 mcg PO DAILY [facility] Last Admin: 10/10/24 08:51 Dose: 1,000 mcg Documented By: JOSE M Diltiazem HCl (Diltiazem Hcl Cd 240 Mg Cap.Er.Deg) 240 mg PO DAILY [facility]; Protocol Last Admin: 10/10/24 08:51 Dose: 240 mg Documented By: JOSE M Fluticasone/Umeclidinium/Vilanterol (Fluticasone/Umeclidinium/Vilanterol 100/62.5 Blst.W.Dev) 1 puff INHALE RDAILY [facility] Last Admin: 10/10/24 09:00 Dose: 1 puff Documented By: MARQUITA Doxycycline Hyclate 100 mg/ (Sodium Chloride) 250 mls @ 166.67 mls/hr IV Q12H [facility] Last Infusion: 10/10/24 07:21 Dose: Infused Documented By: EVELINA Levothyroxine Sodium (Levothyroxine Sodium 75 Mcg Tablet) 75 mcg PO DAILY@0600 [facility] Last Admin: 10/10/24 07:26 Dose: 75 mcg Documented By: EVELINA Loratadine (Loratadine 10 Mg Tablet) 10 mg PO DAILY [facility] Last Admin: 10/10/24 08:51 Dose: 10 mg Documented By: JOSE M Magnesium Hydroxide (Milk Of Magnesia 30 Ml Oral.Susp) 30 ml PO DAILY PRN PRN Reason: Constipation Melatonin (Melatonin 3 Mg Tablet) 6 mg PO BEDTIME PRN PRN Reason: Insomnia Montelukast Sodium (Montelukast Sodium 10 Mg Tablet) 10 mg PO DAILY [facility] Last Admin: 10/10/24 08:51 Dose: 10 mg Documented By: JOSE M Ondansetron HCl (Ondansetron Hcl 4 Mg/2 Ml Vial) 4 mg IVPUSH Q8H PRN PRN Reason: Nausea and Vomiting Pantoprazole Sodium (Pantoprazole Sodium 40 Mg/10 Ml Vial) 40 mg IVPUSH DAILY@0630 [facility] Last Admin: 10/10/24 07:26 Dose: 40 mg Documented By: EVELINA Polyethylene Glycol (Polyethylene Glycol 3350 17 Gm Powd.Pack) 17 gm PO DAILY PRN PRN Reason: Constipation Prednisone (Prednisone 20 Mg Tablet) 40 mg PO DAILY [facility] Last Admin: 10/10/24 08:51 Dose: 40 mg Documented By: JOSE M Senna (Sennosides 8.6 Mg Tablet) 17.2 mg PO BEDTIME [facility] Last Admin: 10/09/24 20:52 Dose: 17.2 mg Documented By: EVELINA Sodium Chloride (0.9 % Sodium Chloride Flush 3 Ml Syringe) 3 ml IVFLUSH QSHIFT [facility] Last Admin: 10/10/24 08:51 Dose: 3 ml Documented By: JOSE M Sulfacetamide Sodium (Sulfacetamide Sodium 10 % Oph 15 Ml Drbtl) 2 drop EYE- BOTH Q3H [facility] Stop: 10/10/24 21:00 Last Admin: 10/10/24 13:07 Dose: 2 drop Documented By: JOSE M Vitamin D (Cholecalciferol (Vitamin D3) 25 Mcg Tablet) 50 mcg PO DAILY [facility] Last Admin: 10/10/24 08:51 Dose: 50 mcg Documented By: JOSE M Warfarin Sodium (Warfarin Sodium 2.5 Mg Tablet) 2.5 mg PO DAILY@1800 [facility] Last Admin: 10/09/24 18:36 Dose: Not Given Documented By: GISELLA Non-Admin Reason: Physician Held Med Labs 10/09/24 05:36 10/10/24 06:55 Labs: Laboratory Results - last 24 hr 10/10/24 06:55 PT 20.8 H D INR 1.8 H Anion Gap 13 Estim Creat Clear Calc 34.7 Estimated GFR 41 Random Glucose 111 Calcium 8.8 Magnesium 1.8 B-Natriuretic Peptide 399 H Microbiology Microbiology Results: Microbiology 10/08/24 17:24 Blood Culture - Preliminary Blood - Venous No growth after 24 hours. 10/08/24 17:24 Blood Culture - Preliminary Blood - Venous No growth after 24 hours. Assessment and Plan (1) Pneumonia: Status: Acute Plan d3 for 84yo F with COPD/asthma, HFpEF, PVD, EMERY on CPAP, AF on warfarin, stage 2 sacral decibutis wound, CKD, HTN, hypothyroidism, and GERD presenting with dyspnea + hemoptysis, admitted for hypoxia due to PNA + CHF pneumonia of RLL COPD/asthma exac - 10/08- ceftriaxone + doxycycline, follow BCx, trend PCT, MRSA swab positive, urinary antigens for Legionella and pneumococcus pending - 10/09-10/14 prednisone 40 mg/d; prn nebs; continue Trelegy acute hypoxic respiratory failure - supplemental O2, wean as tolerated acute-chronic HFpEF - given furosemide IV and now appears euvolemic; hold further diuresis - TTE 09/02/24: - The left ventricular systolic function is normal. The visually estimated ejection fraction is between 60-65%. - There is mild aortic valve regurgitation. - There is mild mitral valve regurgitation. - There is mild tricuspid valve regurgitation. chronic AF - warfarin; daily INR while on ABX - continue diltiazem conjunctivitis - sulfacetamide drops EMERY - CPAP hypothyroidism - continue LT4 stage II decubitus ulcer - wound care consultation VTE ppx - warfarin dispo - eventual home with VNA services In my clinical judgment, the patient requires continued inpatient hospitalization for the following reasons: hypoxia, IV ABX Total time managing care of this patient today: 35 minutes. Quality Stroke Does the patient have a stroke diagnosis?: No Reason for No Anti-thrombotic by Day Two: N/A - Med Ordered VTE Prior VTE?: No VTE Risk Level:: Medical - moderate - high VTE Device Contraindication: N/A - Device Ordered VTE Drug Contraindication: N/A - Med Ordered
[2024-10-10 15:35] VITALS: BP 99/62; PULSE 79; RESP 18; TEMP 36.4; O2SAT 93
[2024-10-10] MEDS: cefTRIAXone sodium 1 GM VIAL IVPUSH (17:51)
[2024-10-10] MEDS: Warfarin Sodium 2.5 MG TABLET PO (17:51)
[2024-10-10 19:59] VITALS: BP 121/61; PULSE 66; TEMP 36.2; O2SAT 92
[2024-10-10] MEDS: Sennosides 8.6 MG TABLET 17.2 MG PO (20:29)
[2024-10-11] VITALS (7 sets, daily range): BP systolic 106–137; BP diastolic 54–62; PULSE 74–87; RESP 18–20; TEMP 35.8–36.4; O2SAT 86–95
[2024-10-11] MEDS: Doxycycline Hyclate 100 MG in 0.9 % Sodium Chloride 250 ML 166.67 MG IV (04:43)
[2024-10-11] MEDS: Levothyroxine Sodium 75 MCG TABLET PO (05:56)
[2024-10-11] MEDS: Pantoprazole Sodium 40 MG/10 ML VIAL IVPUSH (05:56)
[2024-10-11 07:03] LABS: Hematocrit 34.1 % (37.0-47.0); Mean Corpuscular HGB Conc 29.3 g/dl (31.0-35.0); Mean Corpuscular Hemoglobin 28.9 pg (27.0-33.0); Mean Corpuscular Volume 98.6 fL (80.0-98.0); Mean Platelet Volume 10.8 fL (9.4-12.3); Platelet Count 223 X10*3/uL (160-400); Red Blood Count 3.46 X10*6/uL (4.20-5.50); White Blood Count 11.7 X10*3/uL (4.8-10.8)
[2024-10-11 07:14] LABS: INTERNATIONAL NORM RATIO 1.5 (0.9-1.1); Prothrombin Time 17.4 SEC (10.9-12.4)
[2024-10-11 07:25] LABS: Procalcitonin 0.16 ng/mL
[2024-10-11] MEDS: Fluticasone/Umeclidinium/Vilanterol 100/62.5/25 BLST.W.DEV 1 PUFF INHALE (07:50)
[2024-10-11] MEDS: 0.9 % Sodium Chloride Flush 3 ML SYRINGE IVFLUSH (09:28)
[2024-10-11] MEDS: Cholecalciferol (Vitamin D3) 25 MCG TABLET 50 MCG PO (09:28)
[2024-10-11] MEDS: Cyanocobalamin (Vitamin B-12) 1,000 MCG TABLET 1000 MCG PO (09:28)
[2024-10-11] MEDS: Montelukast Sodium 10 MG TABLET PO (09:28)
[2024-10-11] MEDS: dilTIAZem HCL CD 240 MG CAP.ER.DEG PO (09:28)
[2024-10-11] MEDS: Loratadine 10 MG TABLET PO (09:28)
[2024-10-11] MEDS: predniSONE 20 MG TABLET 40 MG PO (09:28)
--- NOTE | 2024-10-11 13:02 | W.MHC.F2F ---
Service Date Service Date: 10/11/24 Encounter Date of encounter: 10/11/24 Reasons for Services Signs and symptoms assessed: see PT evaluation 10/09/24 Reason for mcfp: other (new oxygen start) Reason for physical therapy: home safety and mobility, therapeutic exercises, gait/transfer training, assess need for DME, ADL training and energy conservation MD Overseeing Care: Elizabet Shannon Homebound: Leaving the home is medically contraindicated at this time without the asist of a device and/or another person due th the listed conditions above and below. Reason homebound: shortness of breath with minimal effort and weakness related to hospital stay Certification: Based on the above findings, I certify that this patient is confined to the home and needs intermittent mcfp care, physical therapy and/or speech therapy, or continues to need occupational therapy. The patient is under my care, and I have initiated the establishment of the plan of care. The patient will be followed by a physician who will periodically review the plan of care. Time Spent With Patient Time: Total time managing care of this patient today ____ minutes.
--- NOTE | 2024-10-11 13:12 | PM.DS ---
DS: Providers Provider Date of Service: 10/11/24 Date of admission: 10/08/24 19:37 Date of discharge: 10/11/24 Primary care physician: Elizabet Shannon MD Consults: 10/08/24 20:32 Consult to Wound Care Routine Reason for consultation: stage 2 decubitus ulcer (chronic) DS: Diagnosis Discharge Diagnosis (1) Pneumonia: Status: Acute (2) Acute hypoxic respiratory failure: Status: Acute (3) Acute exacerbation of COPD with asthma: Status: Acute DS: Summary Hospital Course Hospital Course: From the history and physical by the admitting hospitalist, Lynn Dominguez MD, 10/08/24: Patient is an 84-year-old [place]an-speaking female with past medical history COPD/asthma, HFpEF, peripheral vascular disease, sleep apnea currently on CPAP, AFib on Coumadin, stage II sacral decubitus wound, chronic kidney disease, hypertension, hypothyroid and GERD presents to the emergency department after 48 hours plus of increasing shortness of breath and noted hemoptysis. Per patient's son patient's INR has been elevated and her Coumadin has been on hold. INR today is 2.3. Patient required oxygenation for acute hypoxia and is currently on 4 L with a pulse ox of 95%. CTA completed to rule out PE. Negative for PE, but noted a right lower lobe pneumonia. All viral studies currently are negative. Patient denies any recent travel or being exposed to anyone with respiratory illness. Patient does not use home O2. Patient normally sleeps in a recliner. Patient currently denies any chest pain, shortness of breath at rest, fever, chills, nausea, vomiting, diarrhea or constipation issues. In the emergency department patient received 20 mg of Lasix IV x1. Patient was started on ceftriaxone and doxycycline. Patient can not start azithromycin due to Coumadin. Patient's son expressing concerns about patient living alone noting patient has in-home nursing services for her wound care and [facility]. Patient is no longer able to ambulate due to significant peripheral vascular disease and is now using a wheelchair. Patient is also noncompliant with CHF guidelines including diet and fluid allowance. Patient has had 2 other admissions since May of 2024 for similar issues. Case management referral will be made. 84yo F with COPD/asthma, HFpEF, PVD, EMERY on CPAP, AF on warfarin, stage 2 sacral decibutis wound, CKD, HTN, hypothyroidism, and GERD presenting with dyspnea + hemoptysis, admitted for hypoxia due to PNA with CHF exacerbation as well. Hospital course by problem: pneumonia of RLL COPD/asthma exacerbation - admitted to the telemetry unit and treated with ceftriaxone and doxycycline - blood cultures negative - also treated with prednisone and nebulized bronchodilators acute hypoxic respiratory failure - placed on supplemental oxygen 4L and weaned to room air; qualified for 2L oxygen at home with ambulation acute-chronic HFpEF - given furosemide IV for 2 days until euvolemic; then discharged on torsemide - TTE 09/02/24: - The left ventricular systolic function is normal. The visually estimated ejection fraction is between 60-65%. - There is mild aortic valve regurgitation. - There is mild mitral valve regurgitation. - There is mild tricuspid valve regurgitation. She was discharged home with VNA services/home PT. Time Attestation Discharge Coordination Time (in mins): 40 Quality: Safe Use of Opioids Does Pt have an Active Cancer Diagnosis on the Problem List?: No Quality: Stroke Does the patient have a stroke diagnosis?: No Physical Exam Vital Signs: Vital Signs: Last Vital Signs Temp 96.6 F L 10/11/24 11:11 Pulse 84 10/11/24 11:11 Resp 20 10/11/24 11:11 BP 109/54 L 10/11/24 11:11 Pulse Ox 94 10/11/24 11:11 O2 Del Method Room Air 10/11/24 11:11 O2 Flow Rate 1 10/11/24 07:56 BMI result Body Mass Index 32.9 Gen: in no acute distress HEENT: sclera anicteric, moist mucus membranes Neck: supple Lungs: diminished R Heart: irregular, no murmurs Abd: soft, non-tender, non-distended Ext: no edema Skin: warm/well-perfused Neuro: alert and oriented x3, no focal findings Psych: appropriate affect DS: Data Data Completed and Pending Completed studies during hospitalization [Text1]: Laboratory Results WBC 11.7 X10*3/uL (4.8-10.8) H 10/11/24 06:27 RBC 3.46 X10*6/uL (4.20-5.50) L 10/11/24 06:27 Hgb 10.0 g/dl (12.0-16.0) L 10/11/24 06:27 Hct 34.1 % (37.0-47.0) L 10/11/24 06:27 MCV 98.6 fL (80.0-98.0) H 10/11/24 06:27 MCH 28.9 pg (27.0-33.0) 10/11/24 06:27 MCHC 29.3 g/dl (31.0-35.0) L 10/11/24 06:27 RDW 15.0 % (11.0-16.0) 10/11/24 06:27 Plt Count 223 X10*3/uL (160-400) D 10/11/24 06:27 MPV 10.8 fL (9.4-12.3) 10/11/24 06:27 Immature Gran % (Auto) 0.7 % (0.0-0.4) H 10/09/24 05:36 Neut % (Auto) 55.2 % (45-73) 10/09/24 05:36 Lymph % (Auto) 23.4 % (20-40) 10/09/24 05:36 [place] % (Auto) 16.6 % (2-11) H 10/09/24 05:36 Eos % (Auto) 3.6 % (0-4) 10/09/24 05:36 Baso % (Auto) 0.5 % (0-2) 10/09/24 05:36 Lymph # (Auto) 1.3 X10*3/uL (1.2-4.9) 10/09/24 05:36 [place] # (Auto) 0.9 X10*3/uL (0.1-1.2) 10/09/24 05:36 Eos # (Auto) 0.2 X10*3/uL (0.0-0.4) 10/09/24 05:36 Baso # (Auto) 0.0 X10*3/uL (0.0-0.2) 10/09/24 05:36 Abs Immat Gran (auto) 0.04 X10*3/uL (0.00-0.03) H 10/09/24 05:36 Absolute Neuts (auto) 3.1 x10*3/uL (2.0-8.3) 10/09/24 05:36 Absolute Nucleated RBC 0.000 X10*3/uL (0.0-0.012) 10/11/24 06:27 Nucleated RBC % (auto) 0.0 /100WBC (0.0-0.2) 10/11/24 06:27 PT 17.4 SEC (10.9-12.4) H 10/11/24 06:27 INR 1.5 (0.9-1.1) H 10/11/24 06:27 Sodium 145 mmol/L (135-145) 10/10/24 06:55 Potassium 5.1 mmol/L (3.3-5.1) D 10/10/24 06:55 Chloride 106 mmol/L (96-108) 10/10/24 06:55 Carbon Dioxide 31 mmol/L (22-29) H 10/10/24 06:55 Anion Gap 13 (12-20) 10/10/24 06:55 BUN 30 mg/dL (9-16) H 10/10/24 06:55 Creatinine 1.24 mg/dL (0.5-1.4) 10/10/24 06:55 Estim Creat Clear Calc 34.7 10/10/24 06:55 Estimated GFR 41 10/10/24 06:55 Random Glucose 111 mg/dL (60-115) 10/10/24 06:55 Lactic Acid 1.0 mmol/L (0.5-2.0) 10/08/24 17:24 Calcium 8.8 mg/dL (8.4-10.2) 10/10/24 06:55 Magnesium 1.8 mg/dL (1.6-2.6) 10/10/24 06:55 Total Bilirubin 0.5 mg/dL (0.0-1.0) 10/08/24 15:57 AST 20 U/L (5-31) 10/08/24 15:57 ALT 12 U/L (0-31) 10/08/24 15:57 Alkaline Phosphatase 98 U/L (39-117) 10/08/24 15:57 Troponin I High Sens 3.2 ng/L (<3.5-17.0) 10/08/24 15:57 B-Natriuretic Peptide 399 pg/mL (<100) H 10/10/24 06:55 Total Protein 7.2 g/dL (6.5-8.0) 10/08/24 15:57 Albumin 3.1 g/dL (3.5-5.0) L 10/08/24 15:57 Procalcitonin 0.16 ng/mL 10/11/24 06:27 Nasal Screen MRSA (PCR) POSITIVE (Negative) A 10/09/24 10:14 Nasal S. aureus Screen POSITIVE (Negative) A 10/09/24 10:14 Nasal MRSA/S.aureus Interp SEE NOTE 10/09/24 10:14 Influenza Type A (PCR) NEGATIVE (Negative) 10/08/24 15:56 Influenza Type B (PCR) NEGATIVE (Negative) 10/08/24 15:56 RSV RNA Qual (PCR) NEGATIVE (Negative) 10/08/24 15:56 SARS-CoV-2 RNA (RT-PCR) NEGATIVE (Negative) 10/08/24 15:56 Discharge Plan Discharge Anticipated Discharge Date/Time: 10/11/24 13:03 Patient Disposition: Home Health Service Discharge Diagnosis: pneumonia COPD/asthma exacerbation hypoxia Referrals: [facility] [Outside] - 1 Week Elizabet Shannon MD [Primary Care Provider] - 1 Week Discharge Medications: New prednisone 20 mg Tablet 40 mg PO DAILY Qty: 6 0RF cefuroxime axetil 500 mg tablet 500 mg PO BID Qty: 8 0RF doxycycline monohydrate 100 mg tablet 100 mg PO BID Qty: 8 0RF Continued omeprazole 20 mg capsule,delayed release(DR/EC) 20 mg PO DAILY@0630 loratadine 10 mg tablet 10 mg PO DAILY cholecalciferol (vitamin D3) [Vitamin D3] 50 mcg (2,000 unit) capsule 50 mcg PO DAILY Trelegy Ellipta 100-62.5-25 mcg blister with device 1 puff inhalation DAILY albuterol sulfate 2.5 mg /3 mL (0.083 %) solution for nebulization 2.5 mg inhalation Q4H PRN (Reason: Shortness Of Breath) montelukast 10 mg tablet 1 tab PO DAILY torsemide 20 mg tablet 40 mg PO BID warfarin 5 mg tablet 2.5 mg PO DAILY@1800 diltiazem HCl 240 mg capsule,extended release 24hr 240 mg PO DAILY cyanocobalamin (vitamin B-12) 1,000 mcg tablet 1,000 mcg PO DAILY levothyroxine 75 mcg tablet 75 mcg PO DAILY@0600 Discharge Orders: Discharge Order (Routine); Ordered 10/11/24 Ordered By: Keenan Lawrence Diet: Advance to usual diet Activity on Discharge: As tolerated Stand Alone Forms: Patient Portal Discharge page Print Language: [place] Care Plan Goals: lung health Health Concerns: pneumonia COPD/asthma exacerbation hypoxia Plan of Treatment: cefuroxime 500 mg twice daily PLUS doxycycline 100 mg twice daily for total of 4 days prednisone 40 mg once daily for 3 days albuterol nebulizer as needed for shortness of breath or wheeze oxygen 2 liters with ambulation only Low-sodium diet: less than 2000 mg of sodium daily. Weigh yourself daily and call your doctor if your weight goes up by more than 3 lb/day or 5 lb/week. Please follow up with your primary care doctor within 1 week. Return to the hospital if you experience recurrent or worsening symptoms. Assessment: See Discharge Summary.
[2024-10-11] MEDS: cefTRIAXone sodium 1 GM VIAL IVPUSH (13:29)
--- NOTE | 2024-10-11 13:37 | MHC.CLN ---
F/U PO INTAKE 100% X2 MEALS DIET RX:CARDIAC. RECEIVING ENSURE MAX BID TO PROMOTE WOUND HEALING SUPPLEMENT PROVIDES 300 KCALS, 60 G PROTEIN MONITOR PO INTAKE AND ENCOURAGE SUPPLEMENTS
--- NOTE | 2024-10-11 13:45 | MHC.CM.PN ---
IMM 10/11/24 Patient is discharge to home today. She has qualified for new home oxygen. [facility] will resume Home services. BLS booked with [facility] with [facility]. Auth received from [facility] #[id number]. Patients sons have participatedin the dc and transportion plan.
--- NOTE | 2024-10-12 12:21 | P.CDIM_ITS ---
PROVIDER RESPONSE TEXT: To clarify, the appropriate diagnosis supported by the clinical indicators: CKD, please provide stage: 3 QUERY TEXT: PHYSICIAN'S DOCUMENTATION REQUEST Date of Query: 10/11/2024 10:17 AM EDT Patient Name: Adriana Roldan Admit Date: 10/08/2024 Dear Keenan Lawrence MD, A review of the medical record indicates additional documentation may be needed. Please review below and update the documentation accordingly. Clinical Indicators: Progress notes : Patient with HFpEF, PVD, CKD, HTN GFR 41 CR 1.25 BUN 32 Please clarify which of the following accurately represents the stage of the noted CKD, if known: CKD, please provide stage 1, 2, 3a. 3b, 4 Other specified Other (explain) Clinically unable to determine (explain) Thank you, Beverley Demarco, CCS, CDIS Use of terms such as suspected, likely, concern for, or probable (associated with a specific diagnosi s that is being evaluated, monitored, or treated as if it exists) are acceptable and can be coded in the inpatient se tting, when documented at the time of discharge. Please use your independent medical judgment in providing your response. THIS QUERY IS PART OF THE PERMANENT MEDICAL RECORD
[2024-10-12 22:49] LABS: Strep Pneumo Ag urine Not Detected (Not Detected)
[2024-10-14 04:59] LABS: Legionella Ag Urine Not Detected (Not Detected)
== END 2024-10-11 17:00 | disposition home health service (06) | DRG 193 ==
LOC: HO.ED 19:14 → HO.EDOVER 19:42 → HO.IMC 10-09 16:43
PROVIDERS: Physician Assistant Medical; Admitting Provider Nurse Practitioner Family; Emergency Provider Emergency Medicine; PCP Student in an Organized Health Care Education/Training Program; Visit Provider Family Medicine
DX: J18.9 Pneumonia, unspecified organism (principal); I50.33 Acute on chronic diastolic (congestive) heart failure; J96.01 Acute respiratory failure with hypoxia; J44.0 Chronic obstructive pulmonary disease with (acute) lower respiratory infection; I13.0 Hypertensive heart and chronic kidney disease with heart failure and stage 1 through stage 4 chronic kidney disease, or unspecified chronic kidney disease; R04.2 Hemoptysis; I48.19 Other persistent atrial fibrillation; J45.901 Unspecified asthma with (acute) exacerbation; J44.1 Chronic obstructive pulmonary disease with (acute) exacerbation; G47.33 Obstructive sleep apnea (adult) (pediatric); H10.33 Unspecified acute conjunctivitis, bilateral; E78.5 Hyperlipidemia, unspecified; I08.3 Combined rheumatic disorders of mitral, aortic and tricuspid valves; E03.9 Hypothyroidism, unspecified; N18.30 Chronic kidney disease, stage 3 unspecified; L89.152 Pressure ulcer of sacral region, stage 2; Z22.322 Carrier or suspected carrier of Methicillin resistant Staphylococcus aureus; Z20.822 Contact with and (suspected) exposure to COVID-19; Z79.01 Long term (current) use of anticoagulants; Z79.890 Hormone replacement therapy; Z79.899 Other long term (current) drug therapy
CPT/HCPCS: 0241U; 36415; 71275; 80048; 80053; 83605; 83735; 83880; 84145; 84484; 85025; 85027; 85610; 87040; 87070; 87205; 87449; 87640; 87641; 87899; 93005; 94640; 94660; 97162; 99285; J0696; J1271; J1650; J1938; J1940; J2470; Q9967

== ENCOUNTER → 2024-10-08 15:35 | Outpatient (BNV) | payer OTHER, SELFPAY | PROVIDERS: Admitting Provider Nurse Practitioner Family; Emergency Provider Emergency Medicine; PCP Student in an Organized Health Care Education/Training Program; Visit Provider Internal Medicine Cardiovascular Disease | DX: I48.91 Unspecified atrial fibrillation (principal) | CPT/HCPCS: 93010 ==

== ENCOUNTER → 2024-10-08 17:00 | Outpatient (BNV) | payer OTHER, SELFPAY | PROVIDERS: Emergency Provider Emergency Medicine; Visit Provider Radiology Diagnostic Radiology | DX: J18.1 Lobar pneumonia, unspecified organism (principal) | CPT/HCPCS: 71275 ==

== ENCOUNTER → 2024-10-08 19:37 | Outpatient (BNV) | payer OTHER, SELFPAY | PROVIDERS: Admitting Provider Nurse Practitioner Family; Emergency Provider Emergency Medicine; Visit Provider Nurse Practitioner Family | DX: J18.9 Pneumonia, unspecified organism (principal); J96.01 Acute respiratory failure with hypoxia; J44.1 Chronic obstructive pulmonary disease with (acute) exacerbation | CPT/HCPCS: 99222; 99232; 99239; G0180 ==

== ENCOUNTER 2024-10-25 15:44 | Emergency (ER) | payer OTHER, SELFPAY ==
[2024-10-25] VITALS (47 sets, daily range): BP systolic 65–134; BP diastolic 31–78; PULSE 84–131; RESP 12–22; TEMP 36.9–38.7; O2SAT 92–100; BMI 32.7
--- NOTE | ~2024-10-25 | XR_ITS ---
CLINICAL HISTORY: shortness of breath --- Additional Notes or Special Instructions: BUSY 4:14-AMD 1 view chest x-ray Comparison: CR - XR CHEST 1V - 09/01/24 09:51 EDT Findings: Cardiomegaly. Moderate diffuse interstitial pulmonary opacity. No acute fracture. IMPRESSION: Moderate edema versus atypical pneumonia. This document has been electronically signed by: James Quintero MD on 10/25/2024 17:19:39
--- NOTE | 2024-10-25 16:05 | ED_ITS ---
HPI - General Adult General Chief complaint: Dyspnea Stated complaint: sob x 1month, wheezing Time Seen by Provider: 10/25/24 16:05 History of Present Illness ED Provider: Carmen LOZANO narrative: The patient is an 84-year-old female with a history of COPD on home oxygen, heart failure, atrial fibrillation on warfarin, as well as peripheral vascular disease, chronic kidney disease, hypertension, hypothyroidism and GERD. She has been home for about a month since a recent hospitalization for pneumonia and/or CHF exacerbation. She was discharged from this hospital 2 weeks ago on October 11. At discharge she was given prescriptions for prednisone, cefuroxime, and doxycycline, all of which were to finish by 10/15. The patient says that she has been feeling worse over the last couple of days and seemed considerably more short of breath today. She also had a fever for the first time today with a temperature at home of 103. Paramedics felt he was very wheezy and administered a DuoNeb updraft in route to the hospital and also administered 125 mg of methylprednisolone IV. The patient does not have any pain associated with this. Specifically no headache, chest pain, or abdominal pain. She has chronic leg swelling. Related Data Home Medications ?Medication ?Instructions ?Recorded ?Confirmed cholecalciferol (vitamin D3) 50 50 mcg PO DAILY 02/04/21 10/08/24 mcg (2,000 unit) capsule (Vitamin D3) loratadine 10 mg tablet 10 mg PO DAILY 02/04/21 10/08/24 omeprazole 20 mg capsule,delayed 20 mg PO DAILY@0630 02/04/21 10/08/24 release fluticasone fur. 100 mcg-umeclid 1 puff inhalation DAILY 05/03/21 10/08/24 62.5 mcg-vilant 25 mcg inhalat.powder (Trelegy Ellipta) albuterol sulfate 2.5 mg/3 mL 2.5 mg inhalation Q4H PRN 08/09/21 10/08/24 (0.083 %) solution for nebulization Shortness Of Breath montelukast 10 mg tablet 1 tab PO DAILY 08/09/21 10/08/24 cyanocobalamin (vitamin B-12) 1,000 mcg PO DAILY 05/29/24 10/08/24 1,000 mcg tablet diltiazem HCl 240 mg 240 mg PO DAILY 05/29/24 10/08/24 capsule,extended release 24 hr levothyroxine 75 mcg tablet 75 mcg PO DAILY@0600 05/29/24 10/08/24 torsemide 20 mg tablet 40 mg PO BID 08/26/24 10/08/24 warfarin 5 mg tablet 2.5 mg PO DAILY@1800 08/26/24 10/08/24 Previous Rx's ?Medication ?Instructions ?Recorded cefuroxime axetil 500 mg tablet 500 mg PO BID #8 tabs 10/11/24 doxycycline monohydrate 100 mg 100 mg PO BID #8 tabs 10/11/24 tablet prednisone 20 mg tablet 40 mg (2 x 20 mg) PO DAILY #6 tabs 10/11/24 Allergies Allergy/AdvReac Type Severity Reaction Status Date / Time lisinopril [LISINOPRIL] Allergy Unknown UNKNOWN Verified 10/25/24 15:58 simvastatin [SIMVASTATIN] Allergy Unknown UNKNOWN Verified 10/08/24 15:40 Review of Systems 2 Review of Systems: Yes all other systems are reviewed and are negative PMFSH Past Medical History Medical History (Updated 10/25/24 @ 22:30 by Asim Morales MD) EMERY (obstructive sleep apnea) Generalized weakness Stage II decubitus ulcer Conjunctivitis Pneumonia Hypotension JEN (acute kidney injury) Tricuspid valve regurgitation Pulmonary hypertension Acute on chronic right heart failure Idiopathic hypotension Sepsis Cellulitis of right leg Lymphedema Non-healing wound of right lower extremity Venous stasis dermatitis of right lower extremity CHF (congestive heart failure) Hypothyroid Afib Asthma HTN (hypertension) Surgical History S/P hip replacement Family History Family History Mother Gastric cancer Social History Social History Household Members: None Housing: Apartment Do you presently have visiting nurse or other home services: Yes Alcohol intake: never Comment: sleeping in recliner Patient Tobacco Use Status: Never used Tobacco Smoked in Last 30 Days: No Second Hand Smoke Exposure: No Use of substances other than those prescribed or required for medical reasons: No Advance Directives: Yes Advance Directives on File: Yes Advance Directives Date on File: 02/05/21 service: No Current occupational status: disabled Physical Exam ED Vital Signs: Vital Signs - 24 hr 10/25/24 15:53 10/25/24 16:18 10/25/24 16:49 Temperature 101.7 F H Pulse Rate 126 H 120 H 120 H Respiratory Rate 16 22 H 12 Blood Pressure 98/78 118/61 Pulse Oximetry 95 94 Oxygen Delivery Method Nasal Cannula Nasal Cannula Oxygen Flow Rate 4 10/25/24 18:41 10/25/24 19:54 10/25/24 20:26 Temperature 99.8 F 100.5 F H Pulse Rate 127 H 112 H 125 H Respiratory Rate 20 17 20 Blood Pressure 93/56 L 67/37 L Pulse Oximetry 95 96 Oxygen Delivery Method Nasal Cannula Nasal Cannula Oxygen Flow Rate 4 4 10/25/24 20:37 10/25/24 20:39 10/25/24 20:41 Temperature Pulse Rate 111 H 116 H 131 H Respiratory Rate Blood Pressure 74/36 L 68/34 L 68/34 L Pulse Oximetry Oxygen Delivery Method Oxygen Flow Rate 10/25/24 20:43 10/25/24 20:48 10/25/24 20:51 Temperature Pulse Rate 119 H 108 H 105 H Respiratory Rate Blood Pressure 82/47 L 88/47 L 84/48 L Pulse Oximetry Oxygen Delivery Method Oxygen Flow Rate 10/25/24 20:55 10/25/24 21:00 10/25/24 21:05 Temperature Pulse Rate 95 87 84 Respiratory Rate Blood Pressure 83/46 L 84/45 L 86/49 L Pulse Oximetry Oxygen Delivery Method Oxygen Flow Rate 10/25/24 21:09 10/25/24 21:11 10/25/24 21:15 Temperature Pulse Rate 90 96 94 Respiratory Rate Blood Pressure 97/58 L 96/58 L 102/59 L Pulse Oximetry Oxygen Delivery Method Oxygen Flow Rate 10/25/24 21:19 10/25/24 21:24 10/25/24 21:24 Temperature Pulse Rate 92 95 Respiratory Rate Blood Pressure 106/61 113/64 113/64 Pulse Oximetry Oxygen Delivery Method Oxygen Flow Rate 10/25/24 21:25 10/25/24 21:29 10/25/24 21:34 Temperature Pulse Rate 88 98 93 Respiratory Rate 14 Blood Pressure 113/64 108/54 L 101/52 L Pulse Oximetry 95 Oxygen Delivery Method Room Air Oxygen Flow Rate 10/25/24 21:38 10/25/24 21:41 10/25/24 21:45 Temperature 98.4 F Pulse Rate 111 H 99 95 Respiratory Rate 17 Blood Pressure 108/59 L 112/57 L 118/64 Pulse Oximetry 98 Oxygen Delivery Method Room Air Oxygen Flow Rate 10/25/24 21:46 10/25/24 21:50 10/25/24 21:54 Temperature Pulse Rate 92 101 H 111 H Respiratory Rate Blood Pressure 104/62 114/57 L 114/59 L Pulse Oximetry Oxygen Delivery Method Oxygen Flow Rate 10/25/24 21:59 10/25/24 22:00 10/25/24 22:04 Temperature 98.4 F Pulse Rate 100 104 H 101 H Respiratory Rate 17 Blood Pressure 104/53 L 104/55 L 100/45 L Pulse Oximetry 97 Oxygen Delivery Method Room Air Oxygen Flow Rate 10/25/24 22:08 10/25/24 22:13 10/25/24 22:18 Temperature Pulse Rate 98 99 98 Respiratory Rate Blood Pressure 95/53 L 100/52 L 92/50 L Pulse Oximetry Oxygen Delivery Method Oxygen Flow Rate 10/25/24 22:23 Temperature Pulse Rate 106 H Respiratory Rate Blood Pressure 99/47 L Pulse Oximetry Oxygen Delivery Method Oxygen Flow Rate BMI result Body Mass Index 32.7 Const Other: The patient is a very chronically ill looking 84-year-old who is somewhat short of breath and looks somewhat acutely ill as well. There is some mild increased work of breathing. HENMT Other: Face is symmetrical. Mucous membranes moist. Eyes General: appearance normal, both eyes and all related structures Neck Other: Neck veins looks somewhat full Resp Other: Wheezes and crackles bilaterally. Mild increased work of breathing. Cardio Other: The patient was tachycardic with an irregular rate and rhythm, no significant murmur heard. GI Other: The abdomen is soft and nontender Skin Other: Skin is pale and dry Neuro Other: The patient looks somewhat fatigued but when directly addressed she brightens up and answers questions reasonably appropriately. Face seems symmetrical. Speech seems clear. Eye movements intact. She seems deconditioned but seems to have symmetrical strength. Extrem Other: 2+ edema of the lower extremities Medications Administered Generic Name Dose Route Start Last Admin Trade Name Freq PRN Reason Stop Dose Admin Norepinephrine Bitartrate 8 mg in 250 mls @ 0 mls/hr 10/25/24 20:30 10/25/24 22:23 Levophed IVCONT 0.019 mcg/kg/min .Q0M SEBASTIAN 2.99 mls/hr Titration Protocol Per Protocol Discontinued Medications Generic Name Dose Route Start Last Admin Trade Name Renuka PRN Reason Stop Dose Admin Ceftriaxone Sodium 1 gm 10/25/24 16:42 10/25/24 17:07 Ceftriaxone Sodium 1 Gm Vial IVPUSH 10/25/24 16:43 1 gm ONCE ONE Administration Levalbuterol HCl 2.5 mg/ 0 mg 10/25/24 16:43 10/25/24 16:47 Ipratropium [place] 0.5 mg INHALE 10/25/24 16:44 1 dose ONCE ONE Administration Azithromycin 500 mg/ Sodium 250 mls @ 125 mls/hr 10/25/24 16:42 10/25/24 21:07 Chloride IV 10/25/24 18:41 Infused ONCE ONE Infusion Acetaminophen 1,000 mg in 100 mls @ 400 mls/hr 10/25/24 18:40 10/25/24 19:55 Ofirmev IV 10/25/24 18:54 Infused ONCE ONE Infusion Sodium Chloride 500 mls @ 500 mls/hr 10/25/24 18:45 10/25/24 21:22 Ns IV 10/25/24 19:44 Infused .Q1H SEBASTIAN Infusion Sodium Chloride 1,000 mls @ 999 mls/hr 10/25/24 19:30 10/25/24 20:27 Ns IV 10/25/24 20:30 0 mls/hr .Q1H1M SEBASTIAN Infusion Amiodarone HCl 150 mg in 100 mls @ 600 mls/hr 10/25/24 20:32 10/25/24 21:07 Nexterone IV 10/25/24 20:41 Infused ONCE ONE Infusion Medical Decision Making Medical Decision Making MDM Narrative: The patient is a quite chronically ill 84-year-old who was on home oxygen. She has a history of congestive heart failure, COPD, and atrial fibrillation. She is on warfarin. Apparently she has been feeling worse over the last couple of days with a cough and possibly some sputum production. Today she seemed more short of breath and also had a fever. From paramedics she received 125 mg the methylprednisolone IV as well as a DuoNeb updraft. She arrived tachycardic with a heart rate in the 130s. Initial temperature was 101.7 degrees. Initial blood pressure 98/78. Breath sounds showed crackles and wheezes. Labs including blood cultures were obtained. She was started empirically on ceftriaxone and azithromycin. Chest x-ray was read as showing diffuse increased markings bilaterally suggestive of either pulmonary edema or possibly atypical pneumonia. The patient's presentation is somewhat puzzling. Her labs show a normal white count and differential and a normal procalcitonin. However CRP is somewhat elevated at 9.22. Also confusing his that her BNP is 101 which is less than BNP has been when she has been hospitalized for exacerbations of congestive heart failure. BNPs have been as high as 399 in the past. The patient was initially given IV ceftriaxone and azithromycin. She had received steroids in the ambulance. She was given Xopenex as an updrafts. She was given 1 L of IV fluids. The patient's blood pressure dropped while her heart rate remained in the 130s despite fluids. Ultimately we started norepinephrine has a peripheral drip and also gave 150 of IV amiodarone. Her heart rate responded well to the amiodarone came down to the 90s. Norepinephrine was titrated as high as 0.21 mcg/kg per hour with improvement in her blood pressure. Surprisingly her lactates are normal. Troponins are flat. Given the requirement for pressors she will need an ICU hospitalization but we have no ICU beds available at this hospital. The patient will be transferred to [facility] for further care. I spoke with the transfer hotline at [facility] and the accepting physician is the lunch counter manager Dr. Esquivel. I informed the patient's son, Dami Roberts, of the need for the patient to be transferred. Lab Data 10/25/24 16:35 10/25/24 16:34 Labs: Lab Results 10/25/24 10/25/24 10/25/24 Range/Units 16:34 16:35 16:41 WBC 4.8 (4.8-10.8) X10*3/uL RBC 3.54 L (4.20-5.50) X10*6/uL Hgb 10.4 L (12.0-16.0) g/dl Hct 34.3 L (37.0-47.0) % MCV 96.9 (80.0-98.0) fL MCH 29.4 (27.0-33.0) pg MCHC 30.3 L (31.0-35.0) g/dl RDW 15.7 (11.0-16.0) % Plt Count 147 L D (160-400) X10*3/uL MPV 11.2 (9.4-12.3) fL Immature Gran % (Auto) 0.2 (0.0-0.4) % Neut % (Auto) 57.7 (45-73) % Lymph % (Auto) 28.7 (20-40) % George % (Auto) 12.2 H (2-11) % Eos % (Auto) 0.8 (0-4) % Baso % (Auto) 0.4 (0-2) % Lymph # (Auto) 1.4 (1.2-4.9) X10*3/uL George # (Auto) 0.6 (0.1-1.2) X10*3/uL Eos # (Auto) 0.0 (0.0-0.4) X10*3/uL Baso # (Auto) 0.0 (0.0-0.2) X10*3/uL Abs Immat Gran (auto) 0.01 (0.00-0.03) X10*3/uL Absolute Neuts (auto) 2.8 (2.0-8.3) x10*3/uL Absolute Nucleated RBC 0.000 (0.0-0.012) X10*3/uL Nucleated RBC % (auto) 0.0 (0.0-0.2) /100WBC PT 15.5 H (10.9-12.4) SEC INR 1.3 H (0.9-1.1) VBG pH 7.39 (7.32-7.43) VBG pCO2 67 mmHg VBG pO2 43 mmHg VBG HCO3 41 H (22-26) mmol/L VBG O2 Saturation 68.0 % VBG Base Excess 13.7 mmol/L Sodium 139 (135-145) mmol/L Potassium 4.0 D (3.3-5.1) mmol/L Chloride 93 L (96-108) mmol/L Carbon Dioxide 34 H (22-29) mmol/L Anion Gap 16 (12-20) BUN 28 H (9-16) mg/dL Creatinine 1.43 H (0.5-1.4) mg/dL Estim Creat Clear Calc 30.0 Estimated GFR 35 Random Glucose 90 (60-115) mg/dL Lactic Acid 1.3 (0.5-2.0) mmol/L Calcium 8.3 L (8.4-10.2) mg/dL Magnesium 2.0 (1.6-2.6) mg/dL Total Bilirubin 0.7 (0.0-1.0) mg/dL Direct Bilirubin 0.3 (0.0-0.5) mg/dL AST 28 (5-31) U/L ALT 14 (0-31) U/L Alkaline Phosphatase 85 (39-117) U/L Troponin I High Sens 6.2 D (<3.5-17.0) ng/L C-Reactive Protein 9.22 H (< or = 0.50) mg/dL B-Natriuretic Peptide 101 H (<100) pg/mL Total Protein 7.2 (6.5-8.0) g/dL Albumin 3.2 L (3.5-5.0) g/dL Ethyl Alcohol 11 mg/dL Influenza Type A (PCR) NEGATIVE (Negative) Influenza Type B (PCR) NEGATIVE (Negative) RSV RNA Qual (PCR) NEGATIVE (Negative) SARS-CoV-2 RNA (RT-PCR) NEGATIVE (Negative) 10/25/24 Range/Units 21:19 WBC (4.8-10.8) X10*3/uL RBC (4.20-5.50) X10*6/uL Hgb (12.0-16.0) g/dl Hct (37.0-47.0) % MCV (80.0-98.0) fL MCH (27.0-33.0) pg MCHC (31.0-35.0) g/dl RDW (11.0-16.0) % Plt Count (160-400) X10*3/uL MPV (9.4-12.3) fL Immature Gran % (Auto) (0.0-0.4) % Neut % (Auto) (45-73) % Lymph % (Auto) (20-40) % George % (Auto) (2-11) % Eos % (Auto) (0-4) % Baso % (Auto) (0-2) % Lymph # (Auto) (1.2-4.9) X10*3/uL George # (Auto) (0.1-1.2) X10*3/uL Eos # (Auto) (0.0-0.4) X10*3/uL Baso # (Auto) (0.0-0.2) X10*3/uL Abs Immat Gran (auto) (0.00-0.03) X10*3/uL Absolute Neuts (auto) (2.0-8.3) x10*3/uL Absolute Nucleated RBC (0.0-0.012) X10*3/uL Nucleated RBC % (auto) (0.0-0.2) /100WBC PT (10.9-12.4) SEC INR (0.9-1.1) VBG pH (7.32-7.43) VBG pCO2 mmHg VBG pO2 mmHg VBG HCO3 (22-26) mmol/L VBG O2 Saturation % VBG Base Excess mmol/L Sodium (135-145) mmol/L Potassium (3.3-5.1) mmol/L Chloride (96-108) mmol/L Carbon Dioxide (22-29) mmol/L Anion Gap (12-20) BUN (9-16) mg/dL Creatinine (0.5-1.4) mg/dL Estim Creat Clear Calc Estimated GFR Random Glucose (60-115) mg/dL Lactic Acid 0.9 (0.5-2.0) mmol/L Calcium (8.4-10.2) mg/dL Magnesium (1.6-2.6) mg/dL Total Bilirubin (0.0-1.0) mg/dL Direct Bilirubin (0.0-0.5) mg/dL AST (5-31) U/L ALT (0-31) U/L Alkaline Phosphatase (39-117) U/L Troponin I High Sens 7.9 (<3.5-17.0) ng/L C-Reactive Protein (< or = 0.50) mg/dL B-Natriuretic Peptide (<100) pg/mL Total Protein (6.5-8.0) g/dL Albumin (3.5-5.0) g/dL Ethyl Alcohol mg/dL Influenza Type A (PCR) (Negative) Influenza Type B (PCR) (Negative) RSV RNA Qual (PCR) (Negative) SARS-CoV-2 RNA (RT-PCR) (Negative) Critical Care Time Critical Care Time Critical Care Time: Yes Total Critical Care Time: 35 Attestation: The patient was critically ill with a high probability of imminent or life- threatening deterioration. ?I spent greater than 30 minutes of discontinuous time evaluating the patient, delivering critical care at the bedside, discussing evaluating data with consultants. ?Critical care time does not include time spent performing separately billable procedures or teaching. ?Time spent performing critical care with 35 minutes. Discharge Plan Discharge Clinical Impression: Fever, Hypotension, Shortness of breath, Atrial fibrillation with rapid ventricular response, COPD exacerbation, History of congestive heart failure Patient Disposition: [facility] Transfer Details: [facility] ICU, Dr. Esquivel Prescriptions: No Action omeprazole 20 mg capsule,delayed release(DR/EC) 20 mg PO DAILY@0630 loratadine 10 mg tablet 10 mg PO DAILY cholecalciferol (vitamin D3) [Vitamin D3] 50 mcg (2,000 unit) capsule 50 mcg PO DAILY Trelegy Ellipta 100-62.5-25 mcg blister with device 1 puff inhalation DAILY albuterol sulfate 2.5 mg /3 mL (0.083 %) solution for nebulization 2.5 mg inhalation Q4H PRN (Reason: Shortness Of Breath) montelukast 10 mg tablet 1 tab PO DAILY torsemide 20 mg tablet 40 mg PO BID warfarin 5 mg tablet 2.5 mg PO DAILY@1800 prednisone 20 mg Tablet 40 mg PO DAILY Qty: 6 0RF cefuroxime axetil 500 mg tablet 500 mg PO BID Qty: 8 0RF doxycycline monohydrate 100 mg tablet 100 mg PO BID Qty: 8 0RF diltiazem HCl 240 mg capsule,extended release 24hr 240 mg PO DAILY cyanocobalamin (vitamin B-12) 1,000 mcg tablet 1,000 mcg PO DAILY levothyroxine 75 mcg tablet 75 mcg PO DAILY@0600 Print Language: Vincentian
--- NOTE | 2024-10-25 16:08 | ECG_ITS ---
Test Reason : tachycardia Blood Pressure : */* mmHG Vent. Rate : 129 BPM Atrial Rate : * BPM P-R Int : * ms QRS Dur : 88 ms QT Int : 302 ms P-R-T Axes : * 1 -2 degrees QTcB Int : 442 ms Atrial fibrillation with rapid ventricular response Low voltage QRS Abnormal ECG When compared with ECG of 08-Oct-2024 15:43, Vent. rate has increased by 52 bpm Referred By: Asim Morales Electronically Signed By: Elgin Hamilton
--- OUTSIDE RECORDS SUMMARY | 2024-10-25 16:26 | XMS_ITS | Encounter Summary ---
Author Organization [facility] Address [address] [place] [address] Care Team Providers Care Interface Analyst Name Role Phone Elizabet Shannon MD Primary Care Provider [phone] Reason for Visit * Reason Onset Date Comments Request For Order(s) 10/23/2024 [facility] Orders 10/18/24 Encounter Details Date Type Department Care Team (Late st Contact Info) Description 10/23/2024 Telephone Internal Medicine - [address] [place] [address] Janet Mcleod MA Request For Order(s) ([facility] Orders 10/18/24/) Social History Tobacco Use Types Packs/Day Years [...] Progress Notes * Janet Mcleod MA - 10/25/2024 7:59 AM EDT Scanned into chart and faxed to Nuha [facility]LLEN [phone] * Janet Mcleod MA - 10/23/2024 9:55 AM EDT [facility] Orders 10/18/24 Please sign & documented in this encounter Plan of Treatment Upcoming Encounters Date Type Department Care Team (Late st Contact Info) Description 10/29/2024 11:00 AM EDT Anticoagulation - [facility] [address] [phone] 10/31/2024 11:30 AM EDT Appointment [address] [phone] 11/14/2024 11:30 AM EDT Appointment [address] [address] 11/26/2024 11:00 AM EDT Appointment Radiology Department - [address] [phone] 11/28/2024 10:45 AM EDT Consult Orthopedic Surgery - [place] [address] [phone] Leeroy Schneider, DPMyesha [address] [address] 12/12/2024 10:00 AM EDT Treatment [facility] Occupational Therapy [address] [phone] Sandra Crowder OTR/L 12/18/2024 11:25 AM EDT Office Visit Pulmonolgy - [place] 175 [facility] 200 [place] [phone] Chelsea Shi NP 175 [facility] 200 [place] [address] 01/06/2025 10:40 AM EDT Office Visit [facility] - [facility] [address] [facility] 154 [place] [address] Mikael Montoya NP 300 [place] [address] 01/16/2025 10:00 AM EDT Office Visit Internal Medicine - [place] 175 [facility] 200 [place] [phone] Elizabet Shannon MD 175 [facility] 200 [place] [address] documented as of this encounter Visit Diagnoses Not on filedocumented in this encounter Care Teams Interface Analyst Relationship Specialty Start Date End Date Elizabet Shannon MD [address] [address] PCP - General Internal Medicine 05/06/24 documented as of this encounter
--- OUTSIDE RECORDS SUMMARY | 2024-10-25 16:26 | XMS_ITS | Encounter Summary ---
Author Organization [facility] Address [address] [place] [address] Care Team Providers Care Supervisor/Port Director Name Role Phone Elizabet Shannon MD Primary Care Provider [phone] Reason for Visit * Reason Onset Date Comments Request For Order(s) 10/23/2024 [facility] Orders 10/17/24 Encounter Details Date Type Department Care Team (Late st Contact Info) Description 10/23/2024 Telephone Internal Medicine - [address] [place] [address] Janet Mcleod MA Request For Order(s) ([facility] Orders 10/17/24/) Social History Tobacco Use Types Packs/Day Years [...] Notes * Janet Mcleod MA - 10/25/2024 7:49 AM EDT Scanned into chart and faxed to Nuha GUILLEN [phone] * Janet Mcleod MA - 10/23/2024 7:23 AM EDT [facility] Orders 10/17/24 Please sign & documented in this encounter Plan of Treatment Upcoming Encounters Date Type Department Care Team (Late st Contact Info) Description 10/29/2024 11:00 AM EDT Anticoagulation - Warfarin Visit [facility] [address] [phone] 10/31/2024 11:30 AM EDT Appointment [address] [address] 11/14/2024 11:30 AM EDT Appointment [address] [phone] 11/26/2024 11:00 AM EDT Appointment Radiology Department - [address] [phone] 11/28/2024 10:45 AM EDT Consult Orthopedic Surgery - [place] [address] [phone] Leeroy Schneider, DPMyesha [address] [address] 12/12/2024 10:00 AM EDT Treatment [facility] Occupational Therapy [address] [phone] Sandra Crowder OTR/L 12/18/2024 11:25 AM EDT Office Visit Pulmonolgy - [facility] 175 [facility] 200 [place] [phone] Chelsea Shi NP 175 [facility] 200 [place] [address] 01/06/2025 10:40 AM EDT Office Visit [facility] - [facility] [address] 300 [facility] 154 [place] [address] Mikael Montoya NP 300 [place] [address] 01/16/2025 10:00 AM EDT Office Visit Internal Medicine - [facility] 175 [facility] 200 [place] [phone] Elizabet Shannon MD 175 [facility] 200 [place] [address] documented as of this encounter Visit Diagnoses Not on filedocumented in this encounter Care Teams Supervisor/Port Director Relationship Specialty Start Date End Date Elizabet Shannon MD [address] [address] PCP - General Internal Medicine 05/06/24 documented as of this encounter
--- OUTSIDE RECORDS SUMMARY | 2024-10-25 16:26 | XMS_ITS | Encounter Summary ---
Author Organization [facility] Address [address] [place] [address] Care Team Providers Care Professor Of Environmental Engineering Name Role Phone Elizabet Shannon MD Primary Care Provider [phone] Encounter Details Date Type Department Care Team (Latest Contact Info) Description 07/03/2024 Lab Requisition [facility] - Main Lab 299 [facility] [place] [address] Bruce Petersen MD [facility] [address] [place], [place] [phone] Other thrombophilia (CMS/HCC V24); detention (current) use of anticoagulants Social History Tobacco [...] Upcoming Encounters Date Type Department Care Team ( st Contact Info) Description 10/29/2024 11:00 AM EDT Anticoagulation - Warfarin Visit [facility] - [address] [address] 10/31/2024 11:30 AM EDT Appointment [facility] Infusion Center [address] [address] 11/14/2024 11:30 AM EDT Appointment [facility] [address] [address] 11/26/2024 11:00 AM EDT Appointment Radiology Department - [address] [address] 11/28/2024 10:45 AM EDT Consult Orthopedic Surgery - [place] [address] [phone] Leeroy Schneider DPM [address] [address] 12/12/2024 10:00 AM EDT Treatment [facility] Occupational Therapy 175 [facility] 350 [place] [phone] Sandra Crowder, OTR/L 12/18/2024 11:25 AM EDT Office Visit Pulmonolgy - [place] [address] [phone] Chelsea Shi NP [address] [address] 01/06/2025 10:40 AM EDT Office Visit [facility] 154 300 [facility] 154 [place] [phone] Mikael Montoya NP 300 [place] [address] 01/16/2025 10:00 AM EDT Office Visit Internal Medicine - [place] [address] [address] Elizabet Shannon MD [address] [address] documented as of this encounter Procedures Procedure Name Priority Date/Time Associated Diagnosis Comments PROTHROMBIN TIME WITH INR Routine 07/04/2024 8:20 AM EST Other thrombophilia (CMS/HCC) detention (current) use of anticoagulants documented in this [...] esult [facility] 299 [place] [address], documented in this encounter Visit Diagnoses Diagnosis Other thrombophilia (CMS/HCC V24) detention (current) use of anticoagulants Long-term (current) use of anticoagulants Encounter for screening mammogram for breast cancer documented in this encounter Care Teams Professor Of Environmental Engineering Relationship Specialty Start Date End Date Elizabet Shannon MD [address] [address] PCP - General Internal Medicine 05/06/24 documented as of this encounter
--- OUTSIDE RECORDS SUMMARY | 2024-10-25 16:26 | XMS_ITS | Encounter Summary ---
Author Organization [facility] Address [address] [place] [address] Care Team Providers Care Video Editor Name Role Phone Elizabet Shannon MD Primary Care Provider [phone] Encounter Details Date Type Department Care Team (Latest Contact Info) Description 07/05/[address] [facility] - Main Lab 299 [facility] [place] [address] Bruce Petersen MD [facility] [address] [place], [place] [phone] Unspecified atrial fibrillation (CMS/HCC V24, CMS/HCC V28); [...] Anticoagulation - Warfarin Visit [facility] - [facility] [address] [place] [address] 10/31/2024 11:[address] [facility] [address] [address] 11/14/2024 11:[address] [facility] [address] [address] 11/26/2024 11:00 AM EDT Appointment Radiology Department - [address] [address] 11/28/2024 10:45 AM EDT Consult Orthopedic Surgery [facility] 250 175 [facility] 250 [place] [phone] Leeroy Schneider, DPM 175 [facility] 250 [place] [address] 12/12/2024 10:00 AM EDT Treatment [facility] Occupational Therapy 175 [facility] 350 [place] [phone] Sandra Crowder, OTR/L 12/18/2024 11:25 AM EDT Office Visit Pulmonolgy - [place] 175 [facility] 200 [place] [phone] Chelsea Shi NP 175 [facility] 200 [place] [address] 01/06/2025 10:40 AM EDT Office Visit [facility] - [facility] 154 300 [facility] 154 [place] [phone] Mikael Montoya NP 300 [place] [address] 01/16/2025 10:00 AM EDT Office Visit Internal Medicine - [place] [address] [address] Elizabet Shannon MD [address] [address] documented as of this encounter Visit Diagnoses Diagnosis Unspecified atrial fibrillation ([facility] V24, [facility] V28) Other thrombophilia ([facility] V24) Encounter for screening mammogram for breast cancer documented in this encounter Care Teams Video Editor Relationship Specialty Start Date End Date Elizabet Shannon MD [address] [address] PCP - General Internal Medicine 05/06/24 documented as of this encounter
--- OUTSIDE RECORDS SUMMARY | 2024-10-25 16:26 | XMS_ITS | Encounter Summary ---
Author Organization [facility] Address [address] [place] [address] Care Team Providers Care Wood Heel Flap Trimmer Name Role Phone Elizabet Shannon MD Primary Care Provider [phone] Encounter Details Date Type Department Care Team (Late Contact Info) Description 10/25/2024 11:29 AM EDT Hospital Encounter [facility] Xray 271 [place] [address] Arrived Social History Tobacco Use Types Packs/Day Years [...] Encounters Date Type Department Care Team (Late Contact Info) Description 10/29/2024 11:00 AM EDT Anticoagulation - Warfarin Visit Coumadin [address] [address] 10/31/2024 11:[address] [facility] [address] [address] 11/14/2024 11:[address] [facility] [address] [phone] 11/26/2024 11:00 AM EDT Appointment Radiology Department [address] [address] 11/28/2024 10:45 AM EDT Consult Orthopedic Surgery - [place] [address] [phone] Leeroy Schneider, DPM [address] [address] 12/12/2024 10:00 AM EDT Treatment [facility] Occupational Therapy 175 [facility] 350 [place] [phone] Sandra Crowder, OTR/L 12/18/2024 11:25 AM EDT Office Visit Pulmonolgy - [place] 175 [facility] 200 [place] [address] Chelsea Shi NP 175 [facility] 200 [place] [address] 01/06/2025 10:40 AM EDT Office Visit [facility] - [facility] 154 300 [facility] 154 [place] [phone] Mikael Montoya NP 300 [place] [address] 01/16/2025 10:00 AM EDT Office Visit Internal Medicine - [place] 175 [facility] 200 [place] [address] Elizabet Shannon MD 175 [facility] 200 [place] [address] documented as of this encounter Procedures Procedure Name Priority Date/Time Associated Diagnosis Comments XR CHEST 2 VIEWS Routine 10/25/2024 11:4 7 AM EDT Pneumonia of right middle lobe due to infectious organism documented in this encounter Results * XR Chest 2 Views (10/25/2024 11:47 AM EDT) Anatomical Region Laterality Modality Body Radiographic Yoile ging 10/25/2024 12:1 2 PM EDT Impressions 10/25/2024 12:13 PM EDT FINDINGS/IMPRESSION: Cardiomegaly with interstitial opacities which could represent mild pulmonary congestion. ??Superimposed opacities in the right lung which could represent infectious/inflammatory process. ??There are also opacities in the lingula as well. ??No significant effusion. ??Scoliosis. -------- FINAL REPORT -------- Dictated By: Venkat Feng Dictated Date: 10/25/2024 12:12 ET Assigned Physician: Venkat Feng Reviewed and Electronically Signed By: Venkat Feng Signed Date: 10/25/2024 12:13 ET Workstation ID: [id number] Transcribed By: Self Edit Transcribed Date: 10/25/2024 12:12 ET Narrative 10/25/2024 12:13 PM EDT XR CHEST 2 VIEWS INDICATION: pneumonia TECHNIQUE: XR CHEST 2 VIEWS COMPARISON: 06/20/2024 Procedure Note Venkat Feng MD - 10/25/2024 XR CHEST 2 VIEWS INDICATION: pneumonia TECHNIQUE: XR CHEST 2 VIEWS COMPARISON: 06/20/2024 IMPRESSION: FINDINGS/IMPRESSION: Cardiomegaly with interstitial opacities which couldrepresent mild pulmonary congestion. Superimposed opacities in the rightlung which could represent infectious/inflammatory process. There arealso opacities in the lingula as well. No significant effusion.Scoliosis. -------- FINAL REPORT -------- Dictated By: Venkat Feng Dictated Date: 10/25/2024 12:12 ET Assigned Physician: Venkat Feng Reviewed and Electronically Signed By: Venkat Feng Signed Date: 10/25/2024 12:13 ET Workstation ID: [id number] Transcribed By: Self Edit Transcribed Date: 10/25/2024 12:12 ET us Chelsea Shi FACTORY MAINTENANCE TECHNICIAN IMG XR PROCEDURES Final Result documented in this encounter Visit Diagnoses Not on filedocumented in this encounter Care Teams Wood Heel Flap Trimmer Relationship Specialty Start Date End Date Elizabet Shannon MD [address] [place] [address] PCP - General Internal Medicine 05/06/24 documented as of this encounter
--- OUTSIDE RECORDS SUMMARY | 2024-10-25 16:26 | XMS_ITS | Encounter Summary ---
Author Organization [facility] Address [address] [place] [address] Care Team Providers Care Health Screener Name Role Phone Elizabet Shannon MD Primary Care Provider [phone] Reason for Visit * Reason Onset Date Comments Request For Order(s) 10/25/2024 [facility] Order # [id number] Encounter Details Date Type Department Care Team ([facility] st Contact Info) Description 10/25/2024 Telephone Internal Medicine - [place] 175 [facility] [address] [place] [address] Janet Mcleod MA Request For Order(s) ([facility] Order # [id number]/) Social History Tobacco Use Types Packs/Day Years [...] Notes * Janet Mcleod MA - 10/25/2024 11:04 AM EDT [facility] Order # [id number] Please Sign & documented in this encounter Plan of Treatment Upcoming Encounters Date Type Department Care Team (Late st Contact Info) Description 10/29/2024 11:00 AM EDT Anticoagulation - Warfarin Visit Coumadin Clinic [facility] 444 [place] [address] 10/31/2024 11:30 AM EDT Appointment [facility] [address] [address] 11/14/2024 11:30 AM EDT Appointment [facility] [address] [address] 11/26/2024 11:00 AM EDT Appointment Radiology Department - [place] [address] [place] [address] 11/28/2024 10:45 AM EDT Consult Orthopedic Surgery - [place] 250 175 [facility] 250 [place] [phone] Leeroy Schneider, ANDREW 175 [facility] 250 [place] [address] 12/12/2024 10:00 AM EDT Treatment [facility] Occupational Therapy 175 [facility] 350 [place] [phone] Sandra Crowder, OTR/L 12/18/2024 11:25 AM EDT Office Visit Pulmonolgy - [place] 175 [facility] 200 [place] [address] Chelsea Shi NP 175 [facility] 200 [place] [address] 01/06/2025 10:40 AM EDT Office Visit [facility] - [facility] 154 300 [facility] 154 [place] [phone] Mikael Montoya NP 300 [place] [address] 01/16/2025 10:00 AM EDT Office Visit Internal Medicine - [address] [address] Elizabet Shannon MD [address] [address] documented as of this encounter Visit Diagnoses Not on filedocumented in this encounter Care Teams Health Screener Relationship Specialty Start Date End Date Elizabet Shannon MD [address] [address] PCP - General Internal Medicine 05/06/24 documented as of this encounter
--- OUTSIDE RECORDS SUMMARY | 2024-10-25 16:26 | XMS_ITS | Encounter Summary ---
Author Organization [facility] Address [address] [place] [address] Care Team Providers Care Physical Sciences Professor Name Role Phone Elizabet Shannon MD Primary Care Provider [phone] Encounter Details Date Type Department Care Team (Late st Contact Info) Description 06/27/2024 Lab Requisition [facility] - Main Lab 299 [facility] [place] [address] Bruce Petersen MD [facility] [address] [place], [place] [phone] Hypothyroidism, unspecified; Acute kidney failure, unspecified (CMS/HCC [...] - Warfarin Visit Coumadin Clinic - [address] [address] 10/31/2024 11:30 AM EDT Appointment Infusion Center [address] [address] 11/14/2024 11:30 AM EDT Appointment [facility] [address] [address] 11/26/2024 11:00 AM EDT Appointment Radiology Department - [address] [address] 11/28/2024 10:45 AM EDT Consult Orthopedic Surgery - [place] 250 175 [facility] 250 [place] [address] Leeroy Schneider, ANDREW 175 [facility] 250 [place] [address] 12/12/2024 10:00 AM EDT Treatment [facility] Occupational Therapy 175 [facility] 350 [place] [phone] Sandra Crowder, OTR/L 12/18/2024 11:25 AM EDT Office Visit Pulmonolgy - [place] 175 [facility] 200 [place] [address] Chelsea Shi NP 175 [facility] 200 [place] [address] 01/06/2025 10:40 AM EDT Office Visit [facility] - [facility] 154 300 [facility] 154 [place] [address] Mikael Montoya NP 300 [place] [address] 01/16/2025 10:00 AM EDT Office Visit Internal Medicine - [address] 200 [place] [address] Elizabet Shannon MD 175 [facility] 200 [place] [address] documented as of this encounter Procedures Procedure [...] LAB CHEMISTRY METHOD 06/27/2024 11:32 AM EST [facility] Blood Venous blood specimen / Unknown Venipuncture / Unknown 06/27/2024 8:37 AM EST 06/27/2024 10:21 AM EST us Bruce Petersen MD LAB BLOOD ORDERABLES Final R esult [facility] 299 [place] [address], * (ABNORMAL) Comprehensive metabolic panel (06/27/2024 8:37 AM EST) Sodium 143 133 - 145 mmol/L LAB CHEMISTRY METHOD 06/27/2024 11:25 AM EST [facility] Potassium 4.3 3.5 - 5.5 mmol/L LAB CHEMISTRY METHOD 06/27/2024 11:25 AM [facility] Chloride 103 96 - 110 mmol/L LAB CHEMISTRY METHOD 06/27/2024 11:25 AM [facility] CO2 38(H) 21 - 32 mmol/L LAB CHEMISTRY METHOD 06/27/2024 11:25 AM [facility] Anion Gap 2(L) 3 - 11 LAB CHEMISTRY METHOD 06/27/2024 11:25 AM [facility] Glucose 81 70 - 100 mg/dL LAB CHEMISTRY METHOD 06/27/2024 11:25 AM [facility] BUN 47(H) 5 - 25 mg/dL LAB CHEMISTRY METHOD 06/27/2024 11:25 AM [facility] Creatinine 1.94(H) 0.50 - 1.10 mg/dL LAB CHEMISTRY METHOD 06/27/2024 11:25 AM [facility] eGFR 25(L) >=60 mL/min/1. 73m2 LAB CHEMISTRY METHOD 06/27/2024 11:25 AM [facility] Comment:Calculation based on the??Chronic Kidney Disease Epidemiology Collaboration (CKD-EPI) equation refit??without adjustment for race. BUN/Creatinine Ratio 24.2 LAB CHEMISTRY METHOD 06/27/2024 11:25 AM [facility] Calcium 8.7 8.5 - 10.5 mg/dL LAB CHEMISTRY METHOD 06/27/2024 11:25 AM [facility] AST (SGOT) 28 10 - 42 unit/L LAB CHEMISTRY METHOD 06/27/2024 11:25 AM [facility] ALT (SGPT) 14 10 - 60 unit/L LAB CHEMISTRY METHOD 06/27/2024 11:25 AM [facility] Alkaline Phosphatase 107 42 - 121 unit/L LAB CHEMISTRY METHOD 06/27/2024 11:25 AM [facility] Total Protein 8.1(H) 6.0 - 8.0 g/dL LAB CHEMISTRY METHOD 06/27/2024 11:25 AM [facility] Albumin 2.7(L) 3.2 - 5.0 g/dL LAB CHEMISTRY METHOD 06/27/2024 11:25 AM [facility] Total Bilirubin 0.5 0.0 - 1.4 mg/dL LAB CHEMISTRY METHOD 06/27/2024 11:25 AM [facility] Blood Venous blood specimen / Unknown Venipuncture / Unknown 06/27/2024 8:37 AM EST 06/27/2024 10:21 AM EST Bruce Petersen MD LAB BLOOD ORDERABLES Final R esult [facility] 299 [place] [address], * (ABNORMAL) Prothrombin time with INR (06/27/2024 8:37 AM EST) Protime 19.3(H) 10.6 - 13.9 sec LAB COAGULATION METHOD 06/27/2024 10:45 AM [facility] INR 1.5 LAB COAGULATION METHOD 06/27/2024 10:45 AM [facility] Blood Venous blood specimen / Unknown Venipuncture / Unknown 06/27/2024 8:37 AM EST 06/27/2024 10:21 AM EST us Bruce Petersen MD LAB BLOOD ORDERABLES Final R esult [facility] 299 [place] [address], [place] [phone] * (ABNORMAL) Complete blood count (06/27/2024 8:37 AM EST) [facility] WBC 5.0 4.8 - 10.8 K/mcL LAB HEMETOLOGY METHOD 06/27/2024 10:58 AM [facility] RBC 3.90 3.80 - 4.80 M/mcL LAB HEMETOLOGY METHOD 06/27/2024 10:58 AM [facility] Hemoglobin 11.5 11.5 - 16.0 g/dL LAB HEMETOLOGY METHOD 06/27/2024 10:58 AM [facility] Hematocrit 38.6 35.0 - 47.0 % LAB HEMETOLOGY METHOD 06/27/2024 10:58 AM [facility] MCV 99.2(H) 79.0 - 98.0 FL LAB HEMETOLOGY METHOD 06/27/2024 10:58 AM [facility] MCH 29.6 27.0 - 32.0 pcg LAB HEMETOLOGY METHOD 06/27/2024 10:58 AM [facility] MCHC 29.8(L) 32.0 - 37.0 g/dL LAB HEMETOLOGY METHOD 06/27/2024 10:58 AM [facility] RDW 13.6 11.0 - 15.0 % LAB HEMETOLOGY METHOD 06/27/2024 10:58 AM [facility] Platelets 226 130 - 400 K/mcL LAB HEMETOLOGY METHOD 06/27/2024 10:58 AM [facility] MPV 10.7 7.0 - 11.0 FL LAB HEMETOLOGY METHOD 06/27/2024 10:58 AM EST [facility] NRBC 0.0 <1.0 % LAB HEMETOLOGY METHOD 06/27/2024 10:58 AM EST [facility] NRBC Absolute 0.00 <0.10 K/mcL LAB HEMETOLOGY METHOD 06/27/2024 10:58 AM EST [facility] Blood Venous blood specimen / Unknown Venipuncture / Unknown 06/27/2024 8:37 AM EST 06/27/2024 10:21 AM EST Bruce Petersen MD LAB BLOOD ORDERABLES Final R esult [facility] 299 [place] [address], documented in this encounter Visit Diagnoses Diagnosis Hypothyroidism, unspecified Acute kidney failure, unspecified (CMS/HCC V24) Acute kidney failure, unspecified Heart failure, unspecified (CMS/HCC V24, CMS/HCC V28) Heart failure, unspecified Essential (primary) hypertension Unspecified essential hypertension Unspecified atrial fibrillation (CMS/HCC V24, CMS/HCC V28) Encounter for screening mammogram for breast cancer documented in this encounter Care Teams Physical Sciences Professor Relationship Specialty Start Date End Date Elizabet Shannon MD [address] [place] [address] PCP - General Internal Medicine 05/06/24 documented as of this encounter
--- OUTSIDE RECORDS SUMMARY | 2024-10-25 16:26 | XMS_ITS | Encounter Summary ---
Author Organization [facility] Address [address] [place] [address] Care Team Providers Care Director Client Name Role Phone Elizabet Shannon MD Primary Care Provider [phone] Reason for Visit * Reason Onset Date Comments xray order 10/24/2024 Encounter Details Date Type Department Care Team ([facility] st Contact Info) Description 10/24/[address] [facility] 175 [facility] [address] [place] [address] Chelsea Shi NP [address] [facility] 200 [place] [address] xray order Social History Tobacco Use Types Packs/Day [...] Progress Notes * Rosa Rojas MA - 10/24/2024 1:27 PM EDT I did one with the correct location the one is on the system [facility] * Rosa Rojas MA - 10/24/2024 10:32 AM EDT Please sign new chest xray order * Ayden Conner - 10/24/2024 9:51 AM EDT Patient son called asking for updates on the xray order. Informed him that the order is been modified and DWIGHT will call him when is ready to be picked up. Please advice. documented in this encounter Plan of Treatment Upcoming Encounters Date Type Department Care Team (Late st Contact Info) Description 10/29/2024 11:00 AM EDT Anticoagulation - Warfarin Visit Coumadin Clinic - [address] [address] 10/31/2024 11:[address] [facility] Infusion Center [address] [place] [address] 11/14/2024 11:[address] [facility] [address] [place] [address] 11/26/2024 11:00 AM EDT Appointment Radiology Department - [address] [address] 11/28/2024 10:45 AM EDT Consult Orthopedic Surgery - [place] [address] [phone] Leeroy Schneider DPM [address] [address] 12/12/2024 10:00 AM EDT Treatment [facility] Occupational Therapy 175 [facility] 350 [place] [phone] Sandra Crowder, OTR/L 12/18/2024 11:25 AM EDT Office Visit Pulmonolgy - [place] 175 [facility] 200 [place] [address] Chelsea Shi NP 175 [facility] 200 [place] [address] 01/06/2025 10:40 AM EDT Office Visit [facility] - [facility] 154 300 [facility] 154 [place] [phone] Mikael Montoya NP 300 [place] [address] 01/16/2025 10:00 AM EDT Office Visit Internal Medicine - [place] 175 [facility] 200 [place] [address] Elizabet Shannon MD [address] [address] documented as of this encounter Procedures Procedure Name Priority Date/Time Associated Diagnosis Comments XR CHEST 2 VIEWS Routine 10/25/2024 11:4 7 AM EDT Pneumonia of right middle lobe due to infectious organism documented in this encounter Results * XR Chest 2 Views (10/25/2024 11:47 AM EDT) Anatomical Region Laterality Modality Body Radiographic Yolie ging 10/25/2024 12:1 2 PM EDT Impressions [...] Signed Date: 10/25/2024 12:13 ET Workstation ID: [id number] Transcribed By: Self Edit Transcribed Date: 10/25/2024 [...] Signed Date: 10/25/2024 12:13 ET Workstation ID: [id number] Transcribed By: Self Edit Transcribed Date: 10/25/2024 12:12 ET us Chelsea Shi CAB WORKER IMG XR PROCEDURES Final Result documented in this encounter Visit Diagnoses Diagnosis Pneumonia of right middle lobe due to infectious organism- Primary Encounter for screening mammogram for breast cancer documented in this encounter Care Teams Director Client Relationship Specialty Start Date End Date Elizabet Shannon MD [address] [place] [address] PCP - General Internal Medicine 05/06/24 documented as of this encounter
--- OUTSIDE RECORDS SUMMARY | 2024-10-25 16:26 | XMS_ITS | Clinical Summary ---
Author Organization [employer] [facility] Address [address] [place] [address] Care Team Providers Care Statistical Modeler Name Role Phone Rishi Lion MD Primary Care Provide r Allergies Active Allergy Reactions Criticality Noted Date Comments Sd-Xphuddxad-Nzhmrgpdypzod 3 Digoxin 08/05/2022 Pt an sson unsure [...] age to complete this topic Care Teams Statistical Modeler Relationship Specialty Start Date End Date Rishi Lion MD [address] [place] [address] PCP - General Internal Medicine 08/05/22
--- OUTSIDE RECORDS SUMMARY | 2024-10-25 16:27 | XMS_ITS | Encounter Summary ---
Author Organization [facility] Address [address] [place] [address] Care Team Providers Care Maintenance Worker House Trailer Name Role Phone Elizabet Shannon MD Primary Care Provider [phone] Reason for Visit * Reason Onset Date Comments Request For Order(s) 10/23/2024 [facility] Orders Missed Visit 10/14/24 Encounter Details Date Type Department Care Team ([facility] st Contact Info) Description 10/23/2024 Telephone Internal Medicine - [address] [place] [address] Janet Mcleod MA Request For Order(s) ([facility] Orders Missed Visit 10/14/24/) Social History Tobacco Use Types Packs/Day Years [...] Progress Notes * Janet Mcleod MA - 10/23/2024 11:30 AM EDT Scanned into chart and faxed to Nuha GUILLEN [phone] * Janet Mcleod MA - 10/23/2024 11:27 AM EDT [facility] Orders Missed Visit 10/14/24 Please sign & documented in this encounter Plan of Treatment Upcoming Encounters Date Type Department Care Team (Late st Contact Info) Description 10/29/2024 11:00 AM EDT Anticoagulation - Warfarin Visit [facility] - [address] [address] 10/31/2024 11:30 AM EDT Appointment [facility] [address] [place] [address] 11/14/2024 11:30 AM EDT Appointment [address] [address] 11/26/2024 11:00 AM EDT Appointment Radiology Department - [address] [address] 11/28/2024 10:45 AM EDT Consult Orthopedic Surgery - [place] [address] [phone] Leeroy Schneider, DPMyesha [address] [address] 12/12/2024 10:00 AM EDT Treatment [facility] Occupational Therapy [address] [phone] Sandra Crowder OTR/L 12/18/2024 11:25 AM EDT Office Visit Pulmonolgy - [place] 175 [facility] 200 [place] [address] Chelsea Shi, ALAINA 175 [facility] 200 [place] [address] 01/06/2025 10:40 AM EDT Office Visit [facility] - [facility] [address] 300 [facility] 154 [place] [address] Mikael Montoya NP 300 [place] [address] 01/16/2025 10:00 AM EDT Office Visit Internal Medicine - [place] 175 [facility] 200 [place] [address] Elizabet Shannon MD 175 [facility] 200 [place] [address] documented as of this encounter Visit Diagnoses Not on filedocumented in this encounter Care Teams Maintenance Worker House Trailer Relationship Specialty Start Date End Date Elizabet Shannon MD [address] [address] PCP - General Internal Medicine 05/06/24 documented as of this encounter
--- OUTSIDE RECORDS SUMMARY | 2024-10-25 16:27 | XMS_ITS | Encounter Summary ---
Author Organization [facility] Address [address] [place] [address] Care Team Providers Care Sales Person Name Role Phone Elizabet Shannon MD Primary Care Provider [phone] Reason for Visit * Reason Onset Date Comments Request For Order(s) 10/18/2024 [facility] 10/04/24-12/02/24 Plan Of Care Encounter Details Date Type Department Care Team (Late st Contact Info) Description 10/18/2024 Telephone Internal Medicine - [address] [place] [phone] Janet Mcleod MA Request For Order(s) ([facility] 10/04/24-12/02/24 Plan Of Care /) Social History Tobacco [...] Notes * Janet Mcleod MA - 10/23/2024 11:20 AM EDT Scanned into chart and faxed to Nuha GUILLEN [phone] * Janet Mcleod MA - 10/18/2024 7:10 AM EDT Nuha GUILLEN Cert 10/04/24-12/02/24 Plan Of Care Please sign & fax [phone] documented in this encounter Plan of Treatment Upcoming Encounters Date Type Department Care Team (Late st Contact Info) Description 10/29/2024 11:00 AM EDT Anticoagulation - Warfarin [facility] [address] [address] 10/31/2024 11:30 AM EDT Appointment [facility] [address] [place] [phone] 11/14/2024 11:30 AM EDT Appointment [address] [address] 11/26/2024 11:00 AM EDT Appointment Radiology Department - [address] [address] 11/28/2024 10:45 AM EDT Consult Orthopedic Surgery - [place] [address] [phone] Leeroy Schneider DPM [address] [address] 12/12/2024 10:00 AM EDT Treatment [facility] Occupational Therapy [address] [phone] Sandra Crowder, OTR/L 12/18/2024 11:25 AM EDT Office Visit Pulmonolgy - [place] 175 [facility] 200 [place] [address] Chelsea Shi, ALAINA 175 [facility] 200 [place] [address] 01/06/2025 10:40 AM EDT Office [facility] - [facility] 154 300 [facility] 154 [place] [address] Mikael Montoya NP 300 [place] [address] 01/16/2025 10:00 AM EDT Office Visit Internal Medicine - [place] 175 [facility] 200 [place] [phone] Elizabet Shannon MD [address] [address] documented as of this encounter Visit Diagnoses Not on filedocumented in this encounter Care Teams Sales Person Relationship Specialty Start Date End Date Elizabet Shannon MD [address] [address] PCP - General Internal Medicine 05/06/24 documented as of this encounter
--- OUTSIDE RECORDS SUMMARY | 2024-10-25 16:27 | XMS_ITS ---
Author Name [facility] Organization Unknown Encounters Encounter Type Encounter Reason Primary Diagnosis Location Date Ambulatory [facility] 04/05/2024 Care Team Organization Name Specialty Phone Email Start Date End Da te [facility] 2024
--- OUTSIDE RECORDS SUMMARY | 2024-10-25 16:27 | XMS_ITS | Encounter Summary ---
Author Organization [facility] Address [address] [place] [address] Care Team Providers Care Cane Flume Watcher Name Role Phone Elizabet Shannon MD Primary Care Provider [phone] Encounter Details Date Type Department Care Team (Late Contact Info) Description 05/09/2024 Lab Requisition [facility] - Main [facility] [address] [place] [address] Mikael Montoya NP 300 [place] [address] Mixed hyperlipidemia; Peripheral vascular disease, unspecified (CMS/HCC [...] Anticoagulation - Warfarin Visit [facility] [place] [address] [place] [address] 10/31/2024 11:[address] [facility] [address] [address] 11/14/2024 11:[address] [facility] [address] [address] 11/26/2024 11:00 AM EDT Appointment Radiology Department - [address] [address] 11/28/2024 10:45 AM EDT Consult Orthopedic Surgery - [place] 250 175 [facility] 250 [place] [phone] Leeroy Schneider, DPMyesha 175 [facility] 250 [place] [address] 12/12/2024 10:00 AM EDT Treatment [facility] Occupational Therapy 175 [facility] 350 [place] [phone] Sandra Crowder, OTR/L 12/18/2024 11:25 AM EDT Office Visit Pulmonolgy - [place] 175 [facility] 200 [place] [phone] Chelsea Shi, ALAINA 175 [facility] 200 [place] [address] 01/06/2025 10:40 AM EDT Office Visit [facility] - [facility] 154 300 [facility] 154 [place] [phone] Mikael Montoya, ALAINA 300 [place] [address] 01/16/2025 10:00 AM EDT Office Visit Internal Medicine - [place] 175 [facility] [address] [place] [phone] Elizabet Shannon MD 175 [facility] 200 [place] [address] documented as of this encounter Procedures Procedure [...] NP LAB BLOOD ORDERABLES Final Resul t [facility]) [facility] 299 [place] [address], [place] [phone] * (ABNORMAL) B-type natriuretic peptide (05/09/2024 12:00 PM EST) BNP 134(H) <=100 pcg/mL LAB CHEMISTRY METHOD 05/09/2024 3:57 PM [facility] Blood Venous blood specimen / Unknown 05/09/2024 12:00 PM EST 05/09/2024 2:29 PM EST us Mikael Montoya SALES AND CATERING COORDINATOR LAB BLOOD ORDERABLES Final Resul t [facility] [address] [place] [address], [place] [phone] * Lipid panel with reflex to direct LDL (05/09/2024 12:00 PM EST) Cholesterol 133 0 - 200 mg/dL LAB CHEMISTRY METHOD 05/09/2024 4:50 PM [facility] Triglycerides 44 0 - 150 mg/dL LAB CHEMISTRY METHOD 05/09/2024 4:50 PM [facility] HDL 83 >=40 mg/dL LAB CHEMISTRY METHOD 05/09/2024 4:50 PM [facility] LDL Calculated 41 0 [...] NP LAB BLOOD ORDERABLES Final Resul t [facility] 299 [place] [address], [place] [phone] * (ABNORMAL) Basic metabolic panel (05/09/2024 12:00 [...] LAB CHEMISTRY METHOD 05/09/2024 4:47 PM EST [facility] Blood Venous blood specimen / Unknown 05/09/2024 12:00 PM EST 05/09/2024 2:29 PM EST us Mikael Montoya SALES AND CATERING COORDINATOR LAB BLOOD ORDERABLES Final Resul t [facility] [address] [place] [address], documented in this encounter Visit Diagnoses Diagnosis Mixed hyperlipidemia Peripheral vascular disease, unspecified ([facility] V24) Peripheral vascular disease, unspecified Chronic diastolic (congestive) heart failure ([facility] V24, [facility] V28) Longstanding persistent atrial fibrillation ([facility] V24, [facility] V28) Encounter for screening mammogram for breast cancer documented in this encounter Additional Health Concerns Infection Onset Date Last Indicated Resolved Time Respiratory Rule-Out 06/18/2024 06/18/2024 024 5:27 PM EST COVID-19 Rule-Out 06/18/2024 06/18/2024 06/18/2024 5:27 PM EST documented as of this encounter Care Teams Cane Flume Watcher Relationship Specialty Start Date End Date Elizabet Shannon MD [address] [address] PCP - General Internal Medicine 05/06/24 documented as of this encounter
--- OUTSIDE RECORDS SUMMARY | 2024-10-25 16:27 | XMS_ITS | Encounter Summary ---
Author Organization [facility] Address [address] [place] [address] Care Team Providers Care Staff Research Scientist Name Role Phone Elizabet Shannon MD Primary Care Provider [phone] Reason for Visit * Reason Onset Date Comments Request For Order(s) 10/18/2024 [facility] Order # [id number] Encounter Details Date Type Department Care Team (Late st Contact Info) Description 10/18/2024 Telephone Internal Medicine - [place] 175 [facility] [address] [place] [address] Janet Mcleod MA Request For Order(s) ([facility] Order # [id number]/) Social History Tobacco Use Types Packs/Day Years [...] Progress Notes * Janet Mcleod MA - 10/22/2024 7:11 AM EDT Scanned into chart and faxed to [facility] [phone] * Janet Mcleod MA - 10/18/2024 6:38 AM EDT [facility] Order # [id number] Please Sign & documented in this encounter Plan of Treatment Upcoming Encounters Date Type Department Care Team (Late st Contact Info) Description 10/29/2024 11:00 AM EDT Anticoagulation - Warfarin Visit [facility]in Clinic - [address] [address] 10/31/2024 11:30 AM EDT Appointment [address] [phone] 11/14/2024 11:30 AM EDT Appointment [address] [phone] 11/26/2024 11:00 AM EDT Appointment Radiology Department - [address] [address] 11/28/2024 10:45 AM EDT Consult Orthopedic Surgery - [place] 250 175 [facility] 250 [place] [phone] Leeroy Schneider DPM 175 [facility] 250 [place] [address] 12/12/2024 10:00 AM EDT Treatment [facility] Occupational Therapy 175 [facility] 350 [place] [phone] Sandra Crowder, OTR/L 12/18/2024 11:25 AM EDT Office Visit Pulmonolgy - [place] 175 [facility] 200 [place] [address] Chelsea Shi NP 175 [facility] 200 [place] [address] 01/06/2025 10:40 AM EDT Office Visit [facility] - [facility] 154 300 [facility] 154 [place] [address] Mikael Montoya NP 300 [place] [address] 01/16/2025 10:00 AM EDT Office Visit Internal Medicine - [place] 175 [facility] 200 [place] [address] Elizabet Shannon MD [address] [address] documented as of this encounter Visit Diagnoses Not on filedocumented in this encounter Care Teams Staff Research Scientist Relationship Specialty Start Date End Date Elizabet Shannon MD [address] [address] PCP - General Internal Medicine 05/06/24 documented as of this encounter
--- OUTSIDE RECORDS SUMMARY | 2024-10-25 16:27 | XMS_ITS | Encounter Summary ---
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 Social History Tobacco [...] Anticoagulation - Warfarin Visit [facility] - [place] 444 [place] [address] 10/31/2024 11:30 AM EDT Appointment [facility] [address] [place] [address] 11/14/2024 11:30 AM EDT Appointment [address] [address] 11/26/2024 11:00 AM EDT Appointment Radiology Department - [address] [address] 11/28/2024 10:45 AM EDT Consult Orthopedic Surgery - [place] 250 175 [facility] 250 [place] [phone] Leeroy Schneider DPMyesha [address] [address] 12/12/2024 10:00 AM EDT Treatment [facility] Occupational Therapy 175 [facility] 350 [place] [phone] Sandra Crowder, OTR/L 12/18/2024 11:25 AM EDT Office Visit Pulmonolgy - [place] 175 [facility] 200 [place] [phone] Chelsea Shi NP 175 [facility] 200 [place] [address] 01/06/2025 10:40 AM EDT Office Visit [facility]iology Associates - [facility] 154 300 [facility] 154 [place] [address] Mikael Montoya NP 300 [place] [address] 01/16/2025 10:00 AM EDT Office Visit Internal Medicine - [place] 175 [facility] 200 [place] [phone] Elizabet Shannon MD 175 [facility] 200 [place] [address] documented as of this encounter Procedures Procedure Name Priority Date/Time Associated Diagnosis Comments POC PROTIME INR BLOOD Routine 10/22/2024 Atrial fibrillation, 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 (CMS/[facility] V24, CMS/[facility] V28) 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 documented in this encounter Results * POC Protime INR Blood (10/22/2024) Lot Number INR POC 1.8 Prothrombin Time POC Exp Date Blood 10/22/2024 Laxmi Gutierrez MD POINT OF CARE TEST ENTER/EDIT OR DERABLES Final Result documented in this encounter Visit Diagnoses Diagnosis Atrial fibrillation, 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 (CMS/HCC V24, CMS/HCC V28)- Primary detention (current) use of anticoagulants Long-term (current) use of anticoagulants Encounter for screening mammogram for breast cancer documented in this encounter Care Teams Straight Knife Cutter Machine Relationship Specialty Start Date End Date Elizabet Shannon MD 175 [facility] 200 [place] [address] PCP - General Internal Medicine 05/06/24 documented as of this encounter
--- OUTSIDE RECORDS SUMMARY | 2024-10-25 16:27 | XMS_ITS | Encounter Summary ---
Author Organization [facility] Address [address] [place] [address] Care Team Providers Care Pest Control Pilot Name Role Phone Elizabet Shannon MD Primary Care Provider [phone] Reason for Visit * Reason Onset Date Comments Hospital Follow-up 10/18/2024 Encounter Details Date Type Department Care Team ([facility] st Contact Info) Description 10/18/2024 Telephone [facility] 175 [facility] [address] [place] [address] Ruba Shi NP 175 [facility] 200 [place] [address] Hospital Follow-up Social History Tobacco Use Types [...] as of this encounter Progress Notes * Ruba Shi NP - 10/24/2024 4:04 PM EDTAddended by: RUBA SHI on: 10/24/2024 04:04 PM Modules accepted: Orders * Hannah Rojas MA - 10/24/2024 9:23 AM EDTAddended by: HANNAH PALMA on: 10/24/2024 09:23 AM Modules accepted: Orders * Hannah Rojas MA - 10/24/2024 9:02 AM EDT Please update the order In what REGION should this be scheduled? [facility] [[id number]] to [facility] Order modified please sign * Hannah Rojas MA - 10/23/2024 2:51 PM EDT Please let know patient that I need chest xray since it has been over 4 weeks for her pna. Also, request sleep study from [facility]. Find information from family where was it done.When we receive we can schedule her appointment. thanks Patient son want the chest xray order to be sent to [facility] and patient son will pick upthe order * Lina Everett - 10/23/2024 2:17 PM EDT Patient son Dami called, requesting a call back re below. * Hannah Rojas MA - 10/18/2024 1:20 PM EDT Contacted patient son and was informed that Ruba is out of the office this week and she does not have any openings available to keep her appointment that is already scheduled she already saw her PCP hospital notes scanned * Mary Lou Sierra - 10/18/2024 11:54 AM EDT Patient's son on VR came into office to inform that the patient was hospitalized for SOB on October 08 to October 11 at [facility]. Pt was diagnosed with Pneumonia and would like to schedule a hospital follow up with Ruba. Pt's son also would like for Sleep Study results to be requested from [facility] that was done on 09/06/24. Please advice. documented in this encounter Plan of Treatment Upcoming Encounters Date Type Department Care Team (Late st Contact Info) Description 10/29/2024 11:00 AM EDT Anticoagulation - Warfarin Visit Coumadin Clinic - [address] [address] 10/31/2024 11:[address] [facility] [address] [place] [address] 11/14/2024 11:30 AM EDT Appointment [facility] [address] [place] [address] 11/26/2024 11:00 AM EDT Appointment Radiology Department - [address] [address] 11/28/2024 10:45 AM EDT Consult Orthopedic Surgery - [place] [address] [phone] Leeroy Schneider DPM [address] [address] 12/12/2024 10:00 AM EDT Treatment [facility] Occupational Therapy [address] [phone] Sandra Crowder, OTR/L 12/18/2024 11:25 AM EDT Office Visit Pulmonolgy - [place] 175 [facility] 200 [place] [address] Ruba Shi, ALAINA 175 [facility] 200 [place] [address] 01/06/2025 10:40 AM EDT Office Visit [facility] - [facility] 154 300 [facility] 154 [place] [phone] Mikael Montoya NP 300 [place] [address] 01/16/2025 10:00 AM EDT Office Visit Internal Medicine - [place] [address] [phone] Elizabet Shannon MD [address] [address] documented as of this encounter Visit Diagnoses Diagnosis Pneumonia of right middle lobe due to infectious organism- Primary Encounter for screening mammogram for breast cancer documented in this encounter Care Teams Pest Control Pilot Relationship Specialty Start Date End Date Elizabet Shannon MD [address] [address] PCP - General Internal Medicine 05/06/24 documented as of this encounter
--- OUTSIDE RECORDS SUMMARY | 2024-10-25 16:27 | XMS_ITS | Encounter Summary ---
Author Organization [facility] Address [address] [place] [address] Care Team Providers Care Taper Operator Name Role Phone Rishi Lion MD Primary Care [facility] Encounter Details Date Type Department Care [...] Anticoagulation - Warfarin Visit Coumadin Clinic - [address] [address] 10/31/2024 11:30 AM EDT Appointment [facility] [address] [place] [address] 11/14/2024 11:30 AM EDT Appointment [facility] [address] [address] 11/26/2024 11:00 AM EDT Appointment Radiology Department - [address] [address] 11/28/2024 10:45 AM EDT Consult Orthopedic Surgery - [place] [address] [phone] Leeroy Schneider, ANDREW [address] [address] 12/12/2024 10:00 AM EDT [facility] 175 [facility] 350 [place] [address] Sandra Crowder, OTR/L 12/18/2024 11:25 AM EDT Office Visit Pulmonolgy - [place] 175 [facility] [address] [place] [address] Chelsea Shi NP 175 [facility] 200 [place] [address] 01/06/2025 10:40 AM EDT Office Visit [facility] - [facility] 154 300 [facility] 154 [place] [phone] Mikael Monotya NP 300 [place] [address] 01/16/2025 10:00 AM EDT Office Visit Internal Medicine - [place] 175 [facility] 200 [place] [phone] Elizabet Shannon MD 175 [facility] 200 [place] [address] documented as of this encounter Visit Diagnoses Not on filedocumented in this encounter Additional Health Concerns Infection Onset Date Last Indicated Resolved Time Respiratory Rule-Out 06/18/2024 06/18/2024 024 5:27 PM EST COVID-19 Rule-Out 06/18/2024 06/18/2024 06/18/2024 5:27 PM EST documented as of this encounter Care Teams Taper Operator Relationship Specialty Start Date End Date Rishi Lion MD [address] [place] [address] PCP - General 04/04/24 05/05/24 documented as of this encounter
--- OUTSIDE RECORDS SUMMARY | 2024-10-25 16:27 | XMS_ITS | Data Portability ---
Author Organization [employer] [place] Address [address] [place] [address] Care Team Providers Care Sound Designer Name Role Phone HIM CCA OTHER DAWKINSAPRILShekhar Primary Care Provider [phone] Assessment Encounter Date Assessment Date Assessment LastModified by Organization Details LastModified Time 02/25/2024 02/25/2024 I have reviewed and agree with the assessment and plan as documented by the wool hat finisher. I provided real-time medical direction for this [...] Reasonable to go to the ER. [facility] ER transferred. Given the patient's sx, [...] known CKD. Signed out to ER [facility] at 2:50pm, Landy UBRGESS. I provided real -time medical direction via phone for this encounter, and was available for additional phone based assistance as needed. I have reviewed and agree with the Assessment and Plan as documented by the Information Security Architect. We discussed the diagnostic uncertainty of home visits and the risk associated with this. In this case the patient and I felt the safest dispo for the patient was a transfer to the ER. [email or web address] Not available 08/26/2024 14:57:49 10/08/2024 10/08/2024 As noted, we wer e called to see this patient regarding concerns of Sob and coughing up blood. Evaluation in the field was performed by my wool hat finisher colleague, as noted above, I provided real-time [...] is on Coumadin. Patient was admitted to [facility]. For congestive heart failure a couple of weeks ago. On wool hat finisher exam, the patient appears tired. She has [...] called by me to the Er at [facility] Primary care, consider f/u on Er visit Disposition: to ER at [place] We discussed the situation and I recommended referral to the emergency department. This was based on Hemoptysis [email or web address] Not available 10/08/2024 14:51:32 Plan of Treatment Reminders Order Date Submit Date Provider Last Modified By Organization Details Last Modified Time Details Appointments Urgent Care 2024 03:43P Myesha Cline MD Not available Not available Not available Lab rapid SARS CoV 2 Ag, QL IA, respirato ry specimen [address], [address] 10/08/2024 20:55:05 rapid flu (A+B) [address], [address] 10/08/2024 20:55:29 Referral None recorded. Procedures None recorded. Surgeries None recorded. Imaging electroca rdiogram 2024 025 [facility], [address] [place] [address], [address] 10/08/2024 14:48:42 Medication Orders ceftriaxo ne 1 gram solution for injection 2023 024 [facility], [address] [place], [address], 02/25/2024 15:09:27 cephalexi n 500 mg capsule 2023 024 [facility], [address] [place], [address], 02/25/2024 15:10:49 acetamino phen 500 mg tablet 2023 024 [facility], [address] [place], [address], 02/25/2024 15:09:27 Patient TargetsNo targets recorded. Patient InstructionsNo instructions recorded. Reason for Referral None Reported. Results Created Date Observation Date Name Description Value Unit Range Abnormal Flag Note LastModifiedBy Organization Detail LastModifiedTime 10/09/1910/08/2024 michael montelongo am No observ ation record ed. [address], [address] 10/08/2024 20:56:09 Result Notes None recorded. Procedures Surgical History None recorded. Imaging Results Imaging Date Name Status LastModified by Organization Details LastModified Time 10/08/2024 electrocardiogram completed [address], [address] 10/08/2024 20:56:09 Procedure Notes None recorded. Medical Equipment None Reported. Allergies Allergen ID Allergen Name Allergen Category Reaction Reaction Severity Criticality Documentation Date Start Date Code Code System Note Provider Name and Address Organization Details Recorded Time 155 simvastat in medicatio n Not available Not available Not available 09/10/2021 57904 RxNorm Not Available [facility] - production 5 16:24:19 156 lisinopri l medicatio n Not available Not available Not available 09/10/2021 96589 RxNorm Not Available [facility] - production 5 16:24:19 157 Zocor medicatio n Not available Not available Not available 09/10/2021 58269 3 RxNorm Livia Green MD [address] [place] [address],[address], [place], [address], [employer], [employer] 2 15:51:37 1698 Cortane-B medicatio n Not available Not available Not available 06/30/2022 88388 5 RxNorm liste d in her chart in epic my chart Livia Green MD [address] [place] [address],[address], [place], [address], [employer], [employer] 3 12:15:06 1699 digoxin medicatio n Not available Not available Not available 06/30/2022 3407 RxNorm liste d in my chart - [facility] Livia Green MD [address] [place] [address],[address], [place], [address], [employer]RE[employer] 3 12:15:26 Medications Name Sig Start Date [...] % 99 % 160.02 cm 110 /min 38368.3 76 g 16 /min 116 mm[Hg] 71 mm[Hg] Not Available [employer] [facility] - production 4 14:59:07 Date Recorded Oxygen saturation Oxygen saturation in Arterial blood by Pulse oximetry Body temperature Body height Respiratory rate Heart rate Body weight Systolic blood pressure Diastolic blood pressure Provider Name and Address Organization Details Last Updated DateTime 4 95 % 95 % 101 [degF] 160.02 cm 22 /min 110 /min 79593.1 92 g 140 mm[Hg] 80 mm[Hg] Not Available [employer] [facility] 4 14:58:50 Date Recorded Heart rate Oxygen saturation Oxygen saturation in Arterial blood by Pulse oximetry Body height Body weight Respiratory rate Systolic blood pressure Diastolic blood pressure Provider Name and Address Organization Details Last Updated DateTime 5 52 /min 95 % 95 % 154.94 cm 55105.6 8 g 18 /min 100 mm[Hg] 63 mm[Hg] Not Available [email or web address] [facility] [employer] 5 13:59:57 Date Recorded Body weight Respiratory rate Body temperature Oxygen saturation Oxygen saturation in Arterial blood by Pulse oximetry Body height Heart rate Systolic blood pressure Diastolic blood pressure Provider Name and Address Organization Details Last Updated DateTime 5 82460.3 76 g 20 /min 97.6 [degF] 94 % 94 % 160.02 cm 72 /min 126 mm[Hg] 70 mm[Hg] Not Available [employer] [facility] [employer] 5 14:36:48 Date Recorded Oxygen saturation Oxygen saturation in Arterial blood by Pulse oximetry Inhaled oxygen flow rate Body height Respiratory rate Body temperature Heart rate Body weight Systolic blood pressure Diastolic blood pressure Provider Name and Address Organization Details Last Updated DateTime 5 97 % 97 % 2 L/min 160.02 cm 22 /min 102 [degF] 120 /min 07160.3 76 g 104 mm[Hg] 62 mm[Hg] Not Available [employer] [facility] - production 15:43:56 Social History None recorded. Functional Status None [...] 544 Livia Green MD Main - [facility] [address] [place] [address] 09/10/2021 15:52:47 03/03/2022 16:20:49 Edema of lower extremity 234036238 R60.0 - venous stasis with clinically improving chf Chronic ki dney disease 552991616 N18.9 987 Evelio Cline MD Main - [facility] [address] [place] [address] 10/07/2021 13:43:00 02/25/2022 14:50:20 Sepsis 01749841 A41.9 6762 Livia Green MD Main - [facility] [address] [place] [address] 06/30/2022 12:13:11 07/04/2022 09:50:58 Cellulitis of lower limb 553002597 L03.119 On coumadin INR SL LOW/ [facility] [...] y- verbalized understand ing of instructio ns 2614 Jose Bill MD Main - [facility] [address] [place] [address] 07/29/2022 15:46:52 08/01/2022 12:25:19 Open wound of lower leg 744094963 S81.801A Patient with lymphedema presents with right [...] I do not feel this is needed. 23398 [facility] [address] [place] [address] 11/02/2022 14:50:44 11/03/2022 15:22:51 Venous stasis edema of bilateral lower limbs [id number] 7144604 I87.2 44196 Julian [facility] [address] [place] [address] 01/18/2024 14:59:01 01/19/2024 08:38:20 Medical examination for suspected condition 827846410 Z00.01 As noted, we were called to see this patient regarding concerns of hypertensi on and hypoxemia noted at pulmonolog ist visit. Evaluation in the field was performed by my wool hat finisher colleague, as noted above, I provided real-time [...] chest pressure, or any new/worsen ing symptom. 44660 Sandhya Perez MD Main - [facility] [address] [place] [address] 02/25/2024 14:58:29 02/27/2024 00:15:06 Cellulitis of lower leg 243846179 L03.119 00341 KAZ SHARIF MD Main - [address] [address] 08/26/2024 13:50:52 08/27/2024 12:35:48 Congestive heart failure 66955641 I50.9 49270 LEELA TURK MD Main - [address] [phone] 10/08/2024 14:36:17 10/08/2024 16:02:04 Hemoptysis 37374981 R04.2 Health Concerns Section Related Observation LastModified by Organization Detai ls LastModified Time None Recorded Concern Status LastModified by Organization Details LastModified Time None Recorded Advance Directives Directive None Recorded Payers Encounter Date Sequence Insurance Name Policy Number Policy Potts Covered Member ID Potts Member ID Guarantor Name 01/18/2024 1 [employer] ALLIANCE - DOS ON OR AFTER 2022 - DUAL ELIGIBLE - [facility] OPTIONS AND ONE CARE (MEDICARE REPLACEMENT/ADV ANTAGE - HMO) Adriana Roldan [id number] Adriana Roldan 02/25/2024 1 [employer] - DOS ON OR AFTER 2022 - DUAL ELIGIBLE - [facility] OPTIONS AND ONE CARE (MEDICARE REPLACEMENT/ADV ANTAGE - HMO) Adriana Roldan [id number] Adriana Roldan 08/26/2024 1 [employer] - DOS ON OR AFTER 2022 - DUAL ELIGIBLE - [facility] OPTIONS AND ONE CARE (MEDICARE REPLACEMENT/ADV ANTAGE - HMO) Adriana Roldan [id number] Adriana Roldan 10/08/2024 1 [employer] - DOS ON OR AFTER 2022 - DUAL ELIGIBLE - [facility] OPTIONS AND ONE CARE (MEDICARE REPLACEMENT/ADV ANTAGE - HMO) Adriana Roldan [id number] Adriana Roldan Notes Date Note Type Note Provider Name and Address Organization Details Recorded Time 01/18/2024 text/html CRC Nurse Triage Notes (Marii [...] No chest pain. No current respiratory distress. ................... ................... ................... ................... ................... ................... ................... ........ Information Security Architect Note From Tre Garibay: [facility] visit for female patient. Pt present with family who translated for pt who only speaks hungarian. Family reports that pt was brought to outpatient appointment for an injection for her asthma. She was noted at appointment to have a low oxygen level and some concern about her blood pressure and family was instructed to go to ED or have [facility] visit. Pt has no complaints at this time and is well appearing. V/S taken with HR noted to be elevated, irregular with history of atrial fibrillation. Lungs clear with good pulse ox on assessment. Consulted with [facility] Dr. Vaz. No further assessment or treatments needed at this time. Family instructed to continue monitoring patient. Patient education provided. ................... ................... ................... ................... ................... ................... ................... ........ Disposition: Fulfilled Julian Vaz MD [address] [facility],[address], [place], [address], [employer] 01/18/2024 15:59:58 02/25/2024 text/html CRC Nurse Triage Notes (Blayne Montiel): Reason For Request: pt's son aixa reporting n/v/d since waking up this morning alongside fever>mbr is currently being seen at wound clinic for a wound below the right knee>son notes swelling on the right leg Chief Complaints: Nausea/Vomiting, Diarrhea, Cellulitis, Fever/Chills PMH: CHF, COPD/Asthma, Hypertension Allergies: Unknown Comments: Metal Roofer verified the member's name//address and phone number. Mbr's son reporting N/V/D and fever since this morning. Son reports RLE is swollen and red. Fever reportedly 105F, now 101F after Tylenol. Education provided on the response time and the member was advised to monitor reported s/s and seek emergency treatment if needed -Kenan Montiel RN ................... ................... ................... ................... ................... ................... ................... ........ Information Security Architect Note From Trevon Chirinos: [facility] note Mbr's [...] 105, oral. Pt was given 500mg Tylenol FUEL SYSTEM MAINTENANCE WORKER around noon. Pt has had the wound on her R leg for about 6 months. A nurse comes in a few times a week to change the dressing. Pt is not being treated with antibiotics, but [facility] was here about 3 months ago [...] son lives with pt and is her DEALER DEVELOPMENT MANAGER. Informed to keep an eye redness, and look out for fever, AMS and other septic findings, and when to go to the ER. ................... ................... ................... ................... ................... ................... ................... ........ Disposition: Fulfilled Sandhya Perez MD [address] [place] [address],[address], [place], [address], [employer] 02/25/2024 17:24:52 08/26/2024 text/html CRC Nurse Triage Notes (Marii Fernandez): Reason For Request: Pt's son Nicko reporting SOB from a few days ago (was seen by [facility])>waiting on VNA>becoming weaker and continued SOBDenies: Increased work of breathing/labored ? with or without fever Unable to speak in full sentences without distress Discoloration of skin -cyanosis Needs to sleep sitting up, can? t catch breath Shortness of breath in setting of confusion Chief Complaints: Breathing ProblemsPMH: Congestive Heart Failure, COPD/Asthma, Hypertension, Asthma, Chronic Kidney DiseasePMH Reviewed at 08/26/2024 10:38Allergies Reviewed at 08/26/2024 10:38Comments: Patient was seen the other day by [email or web address] for shortness of breath. Son states patient [...] s/s and seek emergency treatment if needed. ................... ................... ................... ................... ................... ................... ................... ........ Information Security Architect Note From Tre Garibay: [facility] visit for female pt. Pt presents with [...] and diminished on left side. Consulted with [facility] Dr. Sharif who agreed that ED was appropriate for pt. Pt and family agreed and 911 was called with [facility] responding. Report given to transporting medic. Care transferred. ................... ................... ................... ................... ................... ................... ................... ........ [facility] Consulted: Kaz Sharif ................... ................... ................... ................... ................... ................... ................... ........ Disposition: Fulfilled KAZ SHARIF MD [address] [place] [address],[address], [place], [address], [employer] 08/26/2024 22:56:32 10/08/2024 text/html CRC Nurse Triage [...] to go to the ER. Patient saw Driver'S License Examiner last week, was given 5 day course of Prednisone that was finished last week. 02 sat 94% RA. On Coumadin, INR today was 2.7. LE edema at baseline. No fever/chills. Information Security Architect Organization Information for Salvador Le Legal Name: [facility] ? Address: [address] [place] [address], [place] [address], USMedical Director: Kye Montaño [facility] No.: [id number] Information Security Architect POC Test Results from Salvador Le - ALS EKG (14:34:24)EKG test performed.Attachmen ts uploaded as part of this test result can be found under Documents section. Rapid COVID antigen (14:35:17)COVID: - Rapid influenza antigen (14:35:17)Flu: - ................... ................... ................... ................... ................... ................... ................... ........ Information Security Architect Note From Esteban Leantonio: [place] is met at the front entry of [...] she breathes through pursed lips. Pt is Polish-speaking only, son provides translation. Pt is found [...] or pursed-lip breathing. Neither is observed by [facility] during visit. She yawn frequently during visit and closes her eyes as if nodding off to sleep frequently. She tells [facility] she feels bad . When asked how she feels bad, she c/o body aches, coughing, and sob. She denies LOGAN and fevers, but does endorse some chills a couple days ago. She is needing to sleep more upright than normal, but is denying night sweats. Son says she uses [employer] during the day, but not at night. When [facility] tries to clarify if this is correct, [...] day for two weeks. Pt is anticoagulated. [facility] obtains vital signs and pt is swabbed for COVID/flu. Pt has rales in the bases bilateral w/ auscultation of the lungs, but no wheezing or rhonchi at this time. Cough is noted to be hard and productive. A 12 lead EKG is obtained and shows atrial fibrillation. COVID/flu are negative. [facility] calls [facility] and discusses the above and the collective consensus is pt should return to the hospital for further workup. Family and pt are amendable and [facility] calls 911. Pt is transported to [facility] by [facility]. [facility] is clear. Report completed by MÓNICA Le [id number]. [facility] Lab Orders: rapid SARS CoV 2 Ag, QL IA, respiratory specimen: Performed rapid flu (A+B): Performed ................... ................... ................... ................... ................... ................... ................... ........ [facility] Consulted: Leela Turk ................... ................... ................... ................... ................... ................... ................... ........ Disposition: Fulfilled LEELA TURK MD [address] [facility],[address], [place], [address], [employer], [employer] 10/08/2024 15:47:15 OBGyn Episode No OBEpisode recorded.
--- OUTSIDE RECORDS SUMMARY | 2024-10-25 16:27 | XMS_ITS | Encounter Summary ---
Author Organization [facility] Address [address] [place] [address] Care Team Providers Care Paper Cone Machine Operator Name Role Phone Elizabet Shannon MD Primary Care Provider [phone] Reason for Visit * Reason Onset Date Comments Request For Order(s) 10/18/2024 [facility] Order # Transfer Summary Encounter Details Date Type Department Care Team (Late st Contact Info) Description 10/18/2024 Telephone Internal Medicine - [place] [address] [facility] [address] [place] [address] Janet Mcleod MA Request For Order(s) ([facility] Order # Transfer Summary/) Social History Tobacco Use Types Packs/Day Years [...] Notes * Janet Mcleod MA - 10/22/2024 7:13 AM EDT Scanned into chart and faxed to [facility] [phone] * Janet Mcleod MA - 10/18/2024 6:42 AM EDT [facility] Order # Transfer Summary Please Sign & documented in this encounter Plan of Treatment Upcoming Encounters Date Type Department Care Team (Late st Contact Info) Description 10/29/2024 11:00 AM EDT Anticoagulation - Warfarin Visit [facility] - [address] [address] 10/31/2024 11:30 AM EDT Appointment [address] [phone] 11/14/2024 11:30 AM EDT Appointment [address] [phone] 11/26/2024 11:00 AM EDT Appointment Radiology Department - [address] [address] 11/28/2024 10:45 AM EDT Consult Orthopedic Surgery - [place] [address] [facility] [address] [place] [phone] Leeroy Schneider, ANDREW 175 [facility] [address] [place] [address] 12/12/2024 10:00 AM EDT Treatment [facility] Occupational Therapy [address] [facility] [address] [place] [phone] Sandra Crowder, OTR/L 12/18/2024 11:25 AM EDT Office Visit Pulmonolgy - [place] 175 [facility] 200 [place] [phone] Chelsea Shi NP 175 [facility] 200 [place] [address] 01/06/2025 10:40 AM EDT Office Visit [facility] [address] [facility] [address] [place] [address] Mikael Montoya NP [address] [place] [address] 01/16/2025 10:00 AM EDT Office Visit Internal Medicine - [place] 175 [facility] [address] [place] [address] Elizabet Shannon MD [address] [address] documented as of this encounter Visit Diagnoses Not on filedocumented in this encounter Care Teams Paper Cone Machine Operator Relationship Specialty Start Date End Date Elizabet Shannon MD [address] [address] PCP - General Internal Medicine 05/06/24 documented as of this encounter
--- OUTSIDE RECORDS SUMMARY | 2024-10-25 16:27 | XMS_ITS | Clinical Summary ---
Author Organization 175 [facility] Address [address] [place] [address] Phone Care Team Providers Care Engine Room Operator Name Role Phone Elizabet Shannon MD Primary Care Provider [phone] Allergies Active Allergy Reactions Criticality Noted Date Comments Uhkmqgygw-Vz-Qdkdhejfjgnfi Lisinopril 04/14/2024 Simvastatin 04/14/2024 Medications dilTIAZem CD (CARDIZEM CD) 240 mg 24 hr capsule Take 1 capsule (240 mg total) by mouth 1 (one) time each day. Active acetaminophen (TYLENOL) 500 mg tablet TAKE 1 TABLET BY MOUTH EVERY 6 HOURS NEEDED FOR PAIN 30 tablet 1 025 Active albuterol HFA (Ventolin HFA) 90 mcg/actuation inhalerIndicati ons:Severe persistent asthma with exacerbation (CMS/[facility] V28) Inhale 2 puffs by mouth every 4 (four) hours if needed for wheezing or shortness of breath. 8 g 5 025 2024 Active warfarin (COUMADIN) 5 mg tablet Take 0.5 tablets (2.5 mg total) by mouth 1 (one) time each day. 90 tablet 1 025 Active cyanocobalamin (VITAMIN B-12) 1,000 mcg tablet TAKE 1 TABLET BY MOUTH DAILY. 30 tablet 2 Active Trelegy Ellipta 100-62.5-25 mcg inhaler INHALE 1 PUFF BY MOUTH DAILY. 60 each Active omalizumab (Xolair) 150 mg/mL syringe subcutaneous syringeIndicati ons:Severe persistent asthma with exacerbation ([facility] V28),Chronic rhinitis Inject 2.5 mL (375 mg total) under the skin every 14 (fourteen) days. 6 mL 11 025 2025 Active omeprazole (PriLOSEC) [address] capsule Take 1 capsule (20 mg total) by mouth 1 (one) time each day. 30 capsule 1 Active cholecalciferol (VITAMIN D-3) 50 mcg (2,000 unit) capsule TAKE (1) CAPSULE BY MOUTH DAILY 30 capsule Active torsemide 40 mg tablet Take 1 tablet by mouth 1 (one) time each day. 90 tablet 1 025 2024 Active albuterol 2.5 mg /3 mL (0.083 %) nebulizer solutionIndicat ions:Severe persistent asthma with exacerbation ([facility] V28) Take 3 mL (2.5 mg total) by nebulization every 4 (four) hours if needed for wheezing. 300 mL 1 025 2025 Active levothyroxine (SYNTHROID, LEVOTHROID) 75 mcg tablet TAKE 1 TABLET BY MOUTH ONCE DAILY 28 tablet 1 Active montelukast (SINGULAIR) 10 mg tablet TAKE 1 TABLET BY MOUTH DAILY AT BEDTIME 28 tablet Active guaiFENesin (MUCINEX) 1,200 mg 12 hr tablet Take 1 tablet (1,200 mg total) by mouth 2 (two) times a day if needed for cough. 14 tablet 3 025 2024 Active loratadine (CLARITIN) 10 mg tablet Take 1 tablet (10 mg total) by mouth 1 (one) time each day. 90 each 025 2024 Active benzonatate (TESSALON) 100 mg capsule Take 1 capsule (100 mg total) by mouth 3 (three) times a day if needed for cough. Do not crush or chew. 42 capsule 025 2024 Active ferrous sulfate 325 mg (65 mg elemental iron) tablet Take 1 tablet (325 mg total) by mouth 1 (one) time each day with breakfast. 90 each 3 025 2025 Active ascorbic acid (VITAMIN C) 250 mg tablet Take 1 tablet (250 mg total) by mouth 1 (one) time each day. 90 each 3 025 2025 Active ferrous sulfate 325 mg (65 mg elemental iron) tablet Take 1 tablet (325 mg total) by mouth 1 (one) time each day with breakfast. 2024 Discontinued(R eorder) levothyroxine (SYNTHROID, LEVOTHROID) 75 mcg tablet Take 1 tablet (75 mcg total) by mouth 1 (one) time each day before breakfast. 2024 Discontinued albuterol 2.5 mg /3 mL (0.083 %) nebulizer solutionIndicat ions:Severe persistent asthma with exacerbation (CMS/HCC V28) Take 3 mL (2.5 mg total) by nebulization every 4 (four) hours if needed for wheezing. 75 mL 3 025 2024 Discontinued(R eorder) fexofenadine (MICHOACANO) 180 mg tablet Take 1 tablet (180 mg total) by mouth 1 (one) time each day if needed (cough). 30 tablet 2024 Discontinued(C ost of medication) montelukast (SINGULAIR) 10 mg tablet TAKE 1 TABLET BY MOUTH DAILY AT BEDTIME. 28 tablet 025 2024 Discontinued loratadine (CLARITIN) 10 mg tablet TAKE 1 TABLET BY MOUTH DAILY. 28 tablet 025 2024 Discontinued predniSONE (DELTASONE) 20 mg tabletIndicatio ns:Severe persistent asthma with exacerbation (CMS/HCC V28) Take 2 tablets (40 mg total) by mouth 1 (one) time each day for 5 days. 10 each 025 2024 loratadine (CLARITIN) 10 mg tablet TAKE 1 TABLET BY MOUTH ONCE DAILY 28 tablet 025 2024 Discontinued(R eorder) Active Problems Problem Noted Date Diagnosed Date COPD (chronic obstructive pu lmonary disease) ([facility] [place]24, [facility] V28) 09/13/2024 Sepsis ([facility] [place]24, [facility] V28) 09/13/2024 Acute on chronic diastolic h eart failure ([facility] V24, [facility] V28) 06/25/2024 Shortness of breath 06/19/2024 SOB (shortness of breath) 06/18/2024 Atrial fibrillation ([facility] V24, [facility] V28) 1 08/05/2023 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 Patient denies any abnormal bleeding. Should remain anticoagulated due to an elevated CHADS2 Vascor. Assessment & Plan (09/20/2024 2:50 PM EDT): [...] ECG 12 lead Benign essential HTN 04/14/2024 Assessment & Plan (10/16/2024 1:16 PM EDT): Well-controlled the appointment today. Continue current medication regiment. (HFpEF) heart failure with p reserved ejection fraction ([facility] [place]24, [facility] V28) 04/14/2024 Assessment & Plan (10/16/2024 1:16 PM EDT): Patient appears much more euvolemic at the appointment today. I am going to give some samples of 10 mg of Farxiga that she can try when she is done with her antibiotic regiment sometime next week. I did educate her on the side effects of the medication. Like her to continue to weigh herself daily and reach out to the office if she gains more than 3 pounds in a day or 5 pounds in a week. I also would like her to continue to limit her sodium consumption. Continue please with the torsemide 40 mg p.o. daily. Assessment & Plan (09/20/2024 2:50 PM EDT): [...] panel; Future Lipid panel Dilated aortic root ([facility] V24) 04/14/2024 Assessment & Plan (10/16/2024 1:16 PM EDT): Will update echocardiogram later this year. PVD (peripheral vascular disease) ([facility] V24) 04/14/2024 Assessment & Plan (05/06/2024 1:30 [...] 04/14/2024 HLD (hyperlipidemia) 04/14/2024 Assessment & Plan (10/16/2024 1:16 PM EDT): Most recent LDL was 53. Continue current medication regiment. Assessment & Plan (09/20/2024 2:50 PM EDT): [...] Encounters Date Type Department Care Team Description 10/25/2024 11:29 AM EDT Hospital Encounter [facility] Xray [address] [place] [phone] Arrived 10/25/2024 Telephone Internal Medicine - [place] [address] [phone] Janet Mcleod [place] Request For Order(s) ([facility] Order # [id number]/) 10/24/2024 Telephone Pulmonolgy - [place] [address] [phone] Chelsea Shi NP xray order 10/23/2024 Telephone Internal Medicine [address] [phone] Janet Mcleod [place] Request For Order(s) ([facility] Orders Missed Visit 10/14/24/) 10/23/2024 Telephone Internal Medicine [address] [phone] Janet Mcleod [place] Request For Order(s) ([facility] Orders 10/18/24) 10/23/2024 Telephone Internal Medicine [address] [phone] Janet Mcleod [place] Request For Order(s) ([facility] Orders 10/17/24/) 10/22/2024 10:50 AM EDT Anticoagulation - [facility] [address] [phone] Atrial fibrillation, 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 (CMS/HCC V24, CMS/HCC V28) (Primary Dx); intermediate (current) use of anticoagulants 10/18/2024 10:45 AM EDT Office Visit Internal [address] [phone] Elizabet Shannon MD Hospital discharge follow-up (Primary Dx); Moderate persistent asthma without complication; Chronic heart failure with preserved ejection fraction (CMS/HCC V24, CMS/HCC V28); Benign essential HTN; Dependent lymphedema; Anemia, 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 10/18/2024 Telephone Pul[address]olgy [address] [phone] Chelsea Shi NP Hospital Follow-up 10/18/2024 Telephone Internal Medicine [address] [phone] Janet Mcleod [place] Request For Order(s) ([facility] Cert 10/04/24-12/02/24 Plan Of Care /) 10/18/2024 Telephone Internal Medicine [facility] 175 [facility] [address] [place] [phone] Janet Mcleod [place] Request For Order(s) ([facility] Orders 10/14/24/) 10/18/2024 Telephone Internal Medicine [facility] [address] [phone] Jnaet Mcleod [place] Request For Order(s) ([facility] Order # Transfer Summary/) 10/18/2024 Telephone Internal Medicine [address] [place] [phone] Janet Mcleod [place] Request For Order(s) ([facility] Order # [id number]/) 10/17/2024 10:22 AM EDT - 10/17/2024 11:59 PM EDT Hospital Encounter [facility] Center [address] 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 10/17/2024 Telephone Internal Medicine [address] [phone] Janet Mcleod [place] Request For Order(s) ([facility] Orders 10/15/24) 10/17/2024 [facility] [address] [phone] Janet Mcleod [place] Request For Order(s) ([facility] Orders 10/12/24/) 10/16/2024 11:10 AM EDT Office Visit [facility] 154 [address] [facility] 154 [place] [address] Mikael Montoya NP Chronic atrial fibrillation (CMS/HCC V24, CMS/HCC V28) (Primary Dx); Benign essential HTN; Chronic heart failure with preserved ejection fraction (CMS/HCC V24, CMS/HCC V28); Dilated aortic root (CMS/HCC V24); Hyperlipidemia, unspecified hyperlipidemia type 10/15/2024 [facility] [address] [place] [phone] Elizabet Shannon MD Hospital Follow-up 10/11/2024 Anticoagulation - [facility]farin [facility] [address] [phone] Felicita Alvarado LPN Atrial fibrillation, 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 (CMS/HCC V24, CMS/HCC V28) (Primary Dx); intermediate (current) use of anticoagulants 10/08/2024 11:00 AM EDT Anticoagulation - Warfarin Visit Cou[facility] [address] [phone] Atrial fibrillation, 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 (CMS/HCC V24, CMS/HCC V28) (Primary Dx); intermediate (current) use of anticoagulants 10/08/2024 [facility] [address] [phone] Lorie Gamez [place] faxed order ([facility]) 10/03/2024 10:39 AM EDT - 10/03/2024 11:59 PM EDT Hospital Encounter [facility] [address] [facility] 2nd [place] [phone] Evangelina Lou MD Moderate asthma without complication, unspecified whether persistent (Primary Dx) Discharge Disposition: Home or Self Care 10/03/2024 Anticoagulation - [facility]in [facility] [address] [phone] Felicita Alvarado LPN Atrial fibrillation, 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 (CMS/HCC V24, CMS/HCC V28) (Primary Dx); intermediate (current) use of anticoagulants 09/26/2024 11:30 AM EDT Office Visit Pulmonolgy - [place] [address] [facility] [address] [place] [phone] Chelsea Shi NP Severe persistent asthma with exacerbation (CMS/HCC V28) (Primary Dx); Anemia, 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; EMERY (obstructive sleep apnea); Acute on chronic diastolic heart failure (CMS/HCC V24, CMS/HCC V28); Chronic heart failure with preserved ejection fraction (CMS/HCC V24, CMS/HCC V28); Obesity (BMI 30.0-34.9) 09/24/2024 Telephone [facility] [address] [facility] [address] [place] [phone] Mikael Montoya NP Sleep Study 09/23/2024 10:50 AM EDT Anticoagulation - [facility]farin [facility] [address] [phone] Atrial fibrillation, 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 (CMS/HCC V24, CMS/HCC V28) (Primary Dx); 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 [address] [place] [phone] Janet Mcleod [place] Request For Order(s) ([facility] Cert 09/06/24-11/04/24 Plan Of Care ) 09/20/2024 Telephone [facility] [address] [facility] 154 [place] [phone] Mikael Montoya NP Lab Results 09/19/2024 12:40 PM EDT Lab Draw Station - [address] 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; Acute on chronic heart failure with preserved ejection fraction (CMS/HCC V24, CMS/HCC V28); Chronic heart failure with preserved ejection fraction (CMS/HCC V24, CMS/HCC V28); Moderate mixed hyperlipidemia not requiring statin therapy 09/19/2024 11:00 AM EDT - 09/19/2024 11:59 PM EDT Hospital Encounter [facility] [address] [facility] [address] 2nd [place] [phone] Evangelina Lou MD Moderate asthma without complication, unspecified whether persistent (Primary Dx) Discharge Disposition: Home or Self Care 09/19/2024 Anticoagulation - [facility]farin [facility] [address] [phone] Felicita Alvarado LPN Atrial fibrillation, 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 (CMS/HCC V24, CMS/HCC V28) (Primary Dx); 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 09/17/2024 9:40 AM EDT Office Visit [facility] 154 [address] [facility] 154 [place] [address] Mikael Montoya NP Atrial fibrillation, 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 (CMS/HCC V24, CMS/HCC V28) (Primary Dx); Acute on chronic heart failure with preserved ejection fraction (CMS/HCC V24, CMS/HCC V28); Sleep apnea, 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; Mixed hyperlipidemia 09/17/2024 Telephone Internal Medicine - [place] [address] [phone] Elizabet Shannon MD 09/16/2024 10:45 AM EDT Office Visit Internal Medicine [facility] [address] [phone] Elizabet Shannon MD Acute on chronic heart failure with preserved ejection fraction (CMS/HCC V24, CMS/HCC V28) (Primary Dx); Atrial fibrillation, 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 (CMS/HCC V24, CMS/HCC V28); Adverse effect of diltiazem 09/16/2024 Telephone Internal Medicine - [place] 175 [facility] 200 [place] [address] Lorie Gamez MA DME 09/12/2024 2:00 PM EDT Anticoagulation - Warfarin Visit [facility] - [address] [phone] Atrial fibrillation, 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 (CMS/HCC V24, CMS/HCC V28) (Primary Dx); intermediate (current) use of anticoagulants 09/09/2024 Telephone Internal Medicine - [place] [address] [phone] Elizabet Shannon MD Hospital Follow-up 09/09/2024 Telephone Internal Medicine [address] [phone] Lorie Gamez [place] faxed order ([facility]) 08/26/2024 Telephone Internal Medicine [facility] 175 [facility] 200 [place] [phone] Elizabet Shannon MD Faxed order 08/24/2024 Telephone [facility] - [facility] [address] [place] [phone] Solange Cisneros [place] Patient having shortness of breath, edema 08/21/2024 11:00 AM EST Anticoagulation - Warfarin Visit [facility] - [address] [phone] Atrial fibrillation, 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 (CMS/HCC V24, CMS/HCC V28) (Primary Dx); intermediate (current) use of anticoagulants 08/21/2024 Telephone Internal Medicine [facility] [address] [phone] Janet Mcleod [place] Request For Order(s) ([facility] Discharge Summary) 08/20/2024 10:56 AM EST - 08/20/2024 11:59 PM EST Hospital Encounter [facility] [address] 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 08/09/2024 Telephone [facility] - [address] [facility] [address] [place] [address] Mikael Montoya NP No Show 08/07/2024 11:10 AM EST Anticoagulation - [facility]farin [facility] [address] [phone] Atrial fibrillation, 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 (CMS/HCC V24, CMS/HCC V28) (Primary Dx); intermediate (current) use of anticoagulants 08/05/2024 10:56 AM EST - 08/05/2024 11:59 PM EST Hospital Encounter [facility] [address] 2nd [place] [phone] Evangelina Lou MD Moderate asthma without complication, unspecified whether persistent (Primary Dx) Discharge Disposition: Home or Self Care 07/31/2024 10:50 AM EST Anticoagulation - Warfarin Visit Coumadin [address] [phone] Atrial fibrillation, 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 (CMS/HCC V24, CMS/HCC V28) (Primary Dx); intermediate (current) use of anticoagulants from Last 3 Months Surgical History Surgery Date Site/Laterality Comments [place]OS[place] 06/26/2011 [place] [facility] [place] OTHER SURGICAL HISTORY [...] stage 3, GFR 30-59 ml/min (CMS/HCC V24, CMS/[facility] V28) Pneumonia Hypothyroid Family History Medical History [...] Sign Reading Time Taken Comments Blood Pressure 102/60 10/18/2024 10:35 AM EDT Pulse 92 10/18/2024 10:35 AM EDT Temperature 36.2 ??C (97.2 ??F) 10/17/2024 10:50 AM E DT Respiratory Rate 18 10/03/2024 10:46 AM EDT Oxygen Saturation 94% 10/18/2024 10:35 AM EDT Inhaled Oxygen Concentration - - Weight 81.6 kg (180 lb) 10/18/2024 10:35 AM EDT Height 157.5 cm (5' 2 ) 09/17/2024 9:44 AM EDT Body Mass Index 32.92 09/17/2024 9:44 AM EDT Plan of Treatment Upcoming Encounters Date Type Department Care Team (Late st Contact Info) Description 10/29/2024 11:00 AM EDT Anticoagulation - [facility] [address] [phone] 10/31/2024 11:30 AM EDT Appointment [facility] [address] [place] [phone] 11/14/2024 11:30 AM EDT Appointment [facility] [address] [place] [phone] 11/26/2024 11:00 AM EDT Appointment Radiology Department - [address] [phone] 11/28/2024 10:45 AM EDT Consult Orthopedic Surgery - [place] [address] [facility] 250 [place] [phone] Leeroy Schneider, DPM 175 [facility] 250 [place] [address] 12/12/2024 10:00 AM EDT Treatment [facility] [address] [phone] Sandra Crowder, OTR/L 12/18/2024 11:25 AM EDT Office Visit Pulmonolgy - [place] 175 [facility] 200 [place] [phone] Chelsea Shi NP [address] [address] 01/06/2025 10:40 AM EDT Office Visit [facility] 154 [address] [facility] 154 [place] [phone] Mikael Montoya NP 300 [place] [address] 01/16/2025 10:00 AM EDT Office Visit Internal Medicine - [place] 175 [facility] 200 [place] [phone] Elizabet Shannon MD [address] [address] Health Maintenance Due Date Last Done Comments [...] 06/24/2024, Additional history exists Falls Risk Assessment 10/17/2025 10/17/2024 Cholesterol Screening (Lipid Panel) 09/19/2029 09/19/2024, 05/09/2024 [...] right middle lobe due to infectious organism POC PROTIME INR BLOOD Routine 10/22/2024 Atrial fibrillation, 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 (CMS/HCC V24, CMS/[facility] V28) 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 PROTHROMBIN TIME WITH INR Routine 10/17/2024 10:13 AM EDT Atrial fibrillation, 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 (CMS/HCC V24, CMS/HCC V28) PROTHROMBIN TIME WITH INR Routine 10/11/2024 POC PROTIME INR BLOOD Routine 10/08/2024 Atrial fibrillation, 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 (CMS/HCC V24, CMS/HCC V28) intermediate (current) use of anticoagulants CBC WITH AUTO [...] fibrillation, 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 (CMS/HCC V24, CMS/HCC V28) 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 ECG 12-LEAD Routine [...] V28) PVD (peripheral vascular disease) (CMS/HCC V24) intermediate (current) use of anticoagulants POC PROTIME INR BLOOD Routine 09/12/2024 Atrial fibrillation, 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 (CMS/HCC V24, CMS/HCC V28) intermediate (current) use of anticoagulants POC PROTIME INR BLOOD Routine 08/21/2024 Atrial fibrillation, 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 (CMS/HCC V24, CMS/HCC V28) 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 POC PROTIME INR BLOOD Routine 08/14/2024 Atrial fibrillation, 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 (CMS/HCC V24, CMS/HCC V28) 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 POC PROTIME INR BLOOD Routine 08/07/2024 Atrial fibrillation, 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 (CMS/HCC V24, CMS/HCC V28) 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 POC PROTIME INR BLOOD Routine 07/31/2024 Atrial fibrillation, 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 (CMS/HCC V24, CMS/HCC V28) 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 Lot Number INR POC 1.8 Prothrombin Time POC Exp Date Blood 10/22/2024 us Laxmi Gutierrez MD POINT OF CARE TEST ENTER/EDIT OR DERABLES Final Result * (ABNORMAL) Prothrombin time with INR (10/17/2024 10:13 AM EDT) Only the most recent of4 resultswithin the time period is included. Protime 14.8(H) 10.6 - 13.9 sec LAB COAGULATION METHOD 10/17/2024 11:55 AM EDT [facility] INR 1.2 LAB COAGULATION METHOD 10/17/2024 11:55 AM EDT [facility] Blood Venous blood specimen / Unknown Venipuncture / Unknown 10/17/2024 10:13 AM EDT 10/17/2024 11:45 AM EDT Elizabet Shannon MD LAB BLOOD ORDERABLES Final Resul t [facility] [address] [place] [address], [place] [phone] * (ABNORMAL) CBC auto differential (10/03/2024 10:26 AM EDT) Pathologist [facility] WBC 5.1 4.8 - 10.8 K/mcL LAB HEMETOLOGY METHOD 10/03/2024 11:40 AM EDT [facility] RBC 3.70(L) 3.80 - 4.80 M/mcL LAB HEMETOLOGY METHOD 10/03/2024 11:40 AM EDT [facility] Hemoglobin 10.7(L) 11.5 - 16.0 g/dL LAB HEMETOLOGY METHOD 10/03/2024 11:40 AM EDT [facility] Hematocrit 36.1 35.0 - 47.0 % LAB HEMETOLOGY METHOD 10/03/2024 11:40 AM EDT [facility] MCV 98.6(H) 79.0 - 98.0 FL [...] % LAB HEMETOLOGY METHOD 10/03/2024 11:40 AM EDT [facility] Immature Granulocytes Relative 0.4 % LAB HEMETOLOGY METHOD 10/03/2024 11:40 AM EDT [facility] Neutrophils Absolute 2.80 1.50 - 7.00 K/mcL LAB HEMETOLOGY METHOD 10/03/2024 11:40 AM EDT [facility] Lymphocytes Absolute 1.47 1.00 - 5.00 K/mcL LAB HEMETOLOGY METHOD 10/03/2024 11:40 AM EDT [facility] Monocytes Absolute 0.63 0.20 - 1.00 K/mcL LAB HEMETOLOGY METHOD 10/03/2024 11:40 AM EDT [facility] Eosinophils Absolute 0.18 0.00 - 0.50 K/mcL LAB HEMETOLOGY METHOD 10/03/2024 11:40 AM [facility] Basophils Absolute 0.02 0.00 - 0.20 K/mcL LAB HEMETOLOGY METHOD 10/03/2024 11:40 AM [facility] Immature Granulocytes Absolute 0.02 0.00 - 0.03 K/mcL LAB HEMETOLOGY METHOD 10/03/2024 11:40 AM [facility] Blood Venous blood specimen / Unknown Venipuncture / Unknown 10/03/2024 10:26 AM EDT 10/03/2024 11:22 AM EDT us Chelsea Shi HOUSE WORKER GENERAL LAB BLOOD ORDERABLES Fi nal Result [facility] [address] [place] [address], * (ABNORMAL) Iron and TIBC (10/03/2024 10:26 AM EDT) [facility] Signature Iron 29(L) 40 - 150 mcg/dL LAB CHEMISTRY METHOD 10/03/2024 11:57 AM EDT [facility] TIBC 246(L) 250 - 450 mcg/dL LAB CHEMISTRY METHOD 10/03/2024 11:57 AM EDT [facility] Iron Saturation 12(L) 15 - 50 % LAB CHEMISTRY METHOD 10/03/2024 11:57 AM EDT [facility] Blood Venous blood specimen / Unknown Venipuncture / Unknown 10/03/2024 10:26 AM EDT 10/03/2024 11:22 AM EDT Chelsea Shi HOUSE WORKER GENERAL LAB BLOOD ORDERABLES Fi nal Result Performing Organization Address City/[facility]/ZIP Co de Phone Number [facility] [address] [place] [address], [place] [phone] * Ferritin (10/03/2024 10:26 AM EDT) Ferritin 223 8 - 252 ng/mL LAB CHEMISTRY METHOD 10/03/2024 11:57 AM EDT [facility] Blood Venous blood specimen / Unknown Venipuncture / Unknown 10/03/2024 10:26 AM EDT 10/03/2024 11:22 AM EDT Chelsea Shi HOUSE WORKER GENERAL LAB BLOOD ORDERABLES Fi nal Result Performing Organization Address City/[facility]/ZIP Co de Phone Number [facility] [address] [place] [address], [place] [phone] * ECG 12 lead (09/20/2024 2:44 PM EDT) Ventricular Rate ECG 60 BPM GEMUSE Atrial Rate 58 BPM GEMUSE QRS Duration 104 ms GEMUSE Q-T Interval 404 ms GEMUSE QTc 404 ms GEMUSE R L[place] 12 degrees GEMUSE T [place] -14 degrees GEMUSE ECG Interpretation Atrial fibrillation Possible Inferior ??myocardial infarction , age undetermined Poor R wave progression Abnormal ECG When compared with ECG of 23-JUN-2024 05:12, Vent. rate has decreased BY ??41 BPM Confirmed by COLE WORKMAN ([id number]) on 09/27/2024 12:32:11 PM GEMUSE 09/17/2024 9:50 AM EDT 09/27/2024 12:32 PM EDT us Mikael Montoya NP ECG ORDERABLES Edited Result - Final Performing Organization Address City/[facility]/ZIP Co de Phone Number GEMUSE * Lipid panel with reflex to direct LDL (09/19/2024 1:18 PM EDT) Cholesterol 136 0 - 200 mg/dL LAB CHEMISTRY METHOD 09/19/2024 4:26 PM EDT [facility] Triglycerides 43 0 - 150 mg/dL LAB CHEMISTRY METHOD 09/19/2024 4:26 PM EDT [facility] HDL 74 >=40 mg/dL LAB CHEMISTRY METHOD 09/19/2024 4:26 PM EDT [facility] LDL Calculated 53 0 - 100 mg/dL LAB CHEMISTRY METHOD 09/19/2024 4:26 PM EDT [facility] VLDL Cholesterol Trino 8.6 mg/dL LAB CHEMISTRY METHOD 09/19/2024 4:26 PM EDT [facility] Non HDL Chol. (LDL+VLDL) 62 <145 mg/dL LAB CHEMISTRY METHOD 09/19/2024 4:26 PM EDT [facility] Chol/HDL Ratio 1.8 0.0 - 4.4 LAB CHEMISTRY METHOD 09/19/2024 4:26 PM EDT [facility] Blood Venous blood specimen / Unknown Venipuncture / Unknown 09/19/2024 1:18 PM EDT 09/19/2024 1:26 PM EDT us Mikael Montoya NP LAB BLOOD ORDERABLES Final Resul t [facility] [address] [place] [address], [place] [phone] * (ABNORMAL) B-type natriuretic peptide (09/19/2024 1:18 PM EDT) BNP 153(H) <=100 pcg/mL LAB CHEMISTRY METHOD 09/19/2024 5:54 PM EDT [facility] Blood Venous blood specimen / Unknown Venipuncture / Unknown 09/19/2024 1:18 PM EDT 09/19/2024 1:28 PM EDT us Mikael Montoya HOUSE WORKER GENERAL LAB BLOOD ORDERABLES Final Resul t [facility] [address] [place] [address], [place] [phone] * (ABNORMAL) Basic metabolic panel (09/19/2024 1:18 PM EDT) [facility] Sodium 141 133 - 145 mmol/L LAB CHEMISTRY METHOD 09/19/2024 4:14 PM [facility] Potassium 3.5 3.5 - 5.5 mmol/L LAB CHEMISTRY METHOD 09/19/2024 4:14 PM [facility] Chloride 102 96 - 110 mmol/L LAB CHEMISTRY METHOD 09/19/2024 4:14 PM [facility] CO2 35(H) 21 - 32 mmol/L LAB CHEMISTRY METHOD 09/19/2024 4:14 PM [facility] Anion Gap 4 3 - 11 LAB CHEMISTRY METHOD 09/19/2024 4:14 PM [facility] Glucose 68(L) 70 - 100 mg/dL LAB CHEMISTRY METHOD 09/19/2024 4:14 PM [facility] BUN 40(H) 5 - 25 mg/dL LAB CHEMISTRY METHOD 09/19/2024 4:14 PM [facility] Creatinine 1.62(H) 0.50 - 1.10 mg/dL LAB CHEMISTRY METHOD 09/19/2024 4:14 PM EDT [facility] eGFR 31(L) >=60 mL/min/1. 73m2 LAB CHEMISTRY METHOD 09/19/2024 4:14 PM EDT [facility] Comment:Calculation based on the??Chronic Kidney Disease Epidemiology Collaboration (CKD-EPI) equation refit??without adjustment for race. BUN/Creatinine Ratio 24.7 LAB CHEMISTRY METHOD 09/19/2024 4:14 PM EDT [facility] Calcium 8.5 8.5 - 10.5 mg/dL LAB CHEMISTRY METHOD 09/19/2024 4:14 PM EDT [facility] Blood Venous blood specimen / Unknown Venipuncture / Unknown 09/19/2024 1:18 PM EDT 09/19/2024 1:26 PM EDT Mikael Montoya NP LAB BLOOD ORDERABLES Final Resul t [facility] [address] [place] [address], from Last 3 Months Insurance [facility] MEDIC[facility] Member Subscriber Plan / Payer (Ef fective 2010-Present) Name:Adriana Roldan Relation to Subscriber:Self Name:Adriana Roldan Payer ID:[id number] Group ID:[id number] Type:Not on file Address: [place] [facility] [place] [id number] Advance Directives Documents on File Type Date Recorded 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
--- OUTSIDE RECORDS SUMMARY | 2024-10-25 16:27 | XMS_ITS | Encounter Summary ---
Author Organization [facility] Address [address] [place] [address] Care Team Providers Care Speeder Frame Tender Name Role Phone Elizabet Shannon MD Primary Care Provider [phone] Reason for Visit * Reason Onset Date Comments Request For Order(s) 10/17/2024 [facility] S[facility] Orders 10/15/24 Encounter Details Date Type Department Care Team (Late st Contact Info) Description 10/17/2024 Telephone Internal Medicine - [address] [place] [address] Janet Mcleod MA Request For Order(s) ([facility] Orders 10/15/24/) Social History Tobacco Use Types Packs/Day Years [...] Progress Notes * Janet Mcleod MA - 10/17/2024 1:29 PM EDT [facility] GUILLEN Physicians Orders 10/15/24 Please sign & documented in this encounter Plan of Treatment Upcoming Encounters Date Type Department Care Team (Late st Contact Info) Description 10/29/2024 11:00 AM EDT Anticoagulation - Warfarin Visit [facility] - [place] [address] [place] [address] 10/31/2024 11:30 AM EDT Appointment [address] [address] 11/14/2024 11:30 AM EDT Appointment [address] [address] 11/26/2024 11:00 AM EDT Appointment Radiology Department - [address] [address] 11/28/2024 10:45 AM EDT Consult Orthopedic Surgery - [place] 250 175 [facility] 250 [place] [phone] Leeroy Schneider DPM 175 [facility] 250 [place] [address] 12/12/2024 10:00 AM EDT Treatment [facility] Occupational Therapy 175 [facility] 350 [place] [phone] Sandra Crowder, OTR/L 12/18/2024 11:25 AM EDT Office Visit Pulmonolgy - [place] 175 [facility] 200 [place] [address] Chelsea Shi NP 175 [facility] 200 [place] [address] 01/06/2025 10:40 AM EDT Office Visit [facility] - [facility] 154 300 [facility] 154 [place] [address] Mikael Montoya, ALAINA 300 [place] [address] 01/16/2025 10:00 AM EDT Office Visit Internal Medicine - [place] 175 [facility] 200 [place] [address] Elizabet Shannon MD [address] [address] documented as of this encounter Visit Diagnoses Not on filedocumented in this encounter Care Teams Speeder Frame Tender Relationship Specialty Start Date End Date Elizabet Shannon MD [address] [address] PCP - General Internal Medicine 05/06/24 documented as of this encounter
--- OUTSIDE RECORDS SUMMARY | 2024-10-25 16:27 | XMS_ITS | Encounter Summary ---
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 Social History Tobacco [...] - Warfarin Visit [facility] - [address] [address] 10/31/2024 11:30 AM EDT Appointment [facility] [address] [address] 11/14/2024 11:30 AM EDT Appointment [facility] [address] [address] 11/26/2024 11:00 AM EDT Appointment Radiology Department - [address] [address] 11/28/2024 10:45 AM EDT Consult Orthopedic Surgery - [place] [address] [phone] Leeroy Schneider, DPMyesha [address] [address] 12/12/2024 10:00 AM EDT Treatment [facility] Occupational Therapy 175 [facility] 350 [place] [phone] Sandra Crowder, OTR/L 12/18/2024 11:25 AM EDT Office Visit Pulmonolgy - [place] 175 [facility] 200 [place] [address] Chelsea Shi NP 175 [facility] 200 [place] [address] 01/06/2025 10:40 AM EDT Office Visit [facility] - [facility] 154 300 [facility] 154 [place] [address] Mikael Montoya NP 300 [place] [address] 01/16/2025 10:00 AM EDT Office Visit Internal Medicine - [place] 175 [facility] 200 [place] [address] Elizabet Shannon MD [address] [address] documented as of this encounter Visit Diagnoses Diagnosis Atrial fibrillation, 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 (CMS/HCC V24, CMS/[facility] V28)- Primary shelter (current) use of anticoagulants Long-term (current) use of anticoagulants Encounter for screening mammogram for breast cancer documented in this encounter Care Teams Outside Sales Representative Relationship Specialty Start Date End Date Elizabet Shannon MD [address] [address] PCP - General Internal Medicine 05/06/24 documented as of this encounter
--- OUTSIDE RECORDS SUMMARY | 2024-10-25 16:27 | XMS_ITS | Encounter Summary ---
Author Organization [facility] Address [address] [place] [address] Care Team Providers Care Facility Mechanic Name Role Phone Elizabet Shannon MD Primary Care Provider [phone] Reason for Visit * Reason Onset Date Comments Request For Order(s) 10/17/2024 [facility] SANT[facility]OA Physicians Orders 10/12/24 Encounter Details Date Type Department Care Team (Late st Contact Info) Description 10/17/2024 Telephone Internal Medicine - [address] [place] [address] Janet Mcleod MA Request For Order(s) ([facility] Orders 10/12/24/) Social History Tobacco Use Types Packs/Day Years [...] Notes * Janet Mcleod MA - 10/22/2024 7:19 AM EDT Scanned into chart and faxed to Nuha GUILLEN [phone] * Janet Mcleod MA - 10/17/2024 1:21 PM EDT [facility]icians Orders 10/12/24 Please sign & documented in this encounter Plan of Treatment Upcoming Encounters Date Type Department Care Team (Late st Contact Info) Description 10/29/2024 11:00 AM EDT Anticoagulation - [facility]farin [facility] [address] [address] 10/31/2024 11:30 AM EDT Appointment [address] [address] 11/14/2024 11:30 AM EDT Appointment [address] [address] 11/26/2024 11:00 AM EDT Appointment Radiology Department - [address] [address] 11/28/2024 10:45 AM EDT Consult Orthopedic Surgery - [place] [address] [phone] Leeroy Schneider, DPMyesha [address] [address] 12/12/2024 10:00 AM EDT Treatment [facility] Occupational Therapy [address] [phone] Sandra Crowder OTR/L 12/18/2024 11:25 AM EDT Office Visit Pulmonolgy - [place] 175 [facility] 200 [place] [phone] Chelsea Shi NP 175 [facility] 200 [place] [address] 01/06/2025 10:40 AM EDT Office Visit [facility] - [facility] [address] 300 [facility] 154 [place] [address] Mikael Montoya NP 300 [place] [address] 01/16/2025 10:00 AM EDT Office Visit Internal Medicine - [place] 175 [facility] 200 [place] [phone] Elizabet Shannon MD 175 [facility] 200 [place] [address] documented as of this encounter Visit Diagnoses Not on filedocumented in this encounter Care Teams Facility Mechanic Relationship Specialty Start Date End Date Elizabet Shannon MD [address] [address] PCP - General Internal Medicine 05/06/24 documented as of this encounter
--- OUTSIDE RECORDS SUMMARY | 2024-10-25 16:27 | XMS_ITS | Encounter Summary ---
Author Organization [facility] Address 100 [facility] 200 [place] [address] Phone Care Team Providers Care Quality Control Scientist Name Role Phone Amaya Lewis MD Primary Care Provider [phone] Reason for Visit * Reason Comments Med Refill Encounter Details Date Type Department Care Team (Late Contact Info) Description 08/30/2023 Refill [facility] [address] [place] [phone] Jose Hardy MD 4928 [facility] 204 [place] [address] Social History Tobacco Use Types [...] Office Visit [facility] [address] [place] [address] Jsoe Hardy MD 3552 [facility] 204 [place] [address] documented as of this encounter Visit Diagnoses Not on filedocumented in this encounter Care Teams Quality Control Scientist Relationship Specialty Start Date End Date Amaya Lewis MD [address] [place] PCP - General Internal Medicine 05/20/24 documented as of this encounter
--- OUTSIDE RECORDS SUMMARY | 2024-10-25 16:27 | XMS_ITS | Encounter Summary ---
Author Organization [facility] Address [address] [place] [address] Care Team Providers Care Field Artillery Targeting Technician Name Role Phone Elizabet Shannon MD Primary Care Provider [phone] Reason for Visit * Reason Onset Date Comments Request For Order(s) 10/18/2024 Nuha SANTOROA Physicians Orders 10/14/24 Encounter Details Date Type Department Care Team (Late st Contact Info) Description 10/18/2024 Telephone Internal Medicine - [address] [place] [address] Janet Mcleod MA Request For Order(s) ([facility] Orders 10/14/24/) Social History Tobacco Use Types Packs/Day [...] Notes * Janet Mcleod MA - 10/22/2024 8:02 AM EDT Scanned into chart and faxed to Nuha GUILLEN [phone] * Janet Mcleod MA - 10/18/2024 7:09 AM EDT [facility] Physicians Orders 10/14/24 Please sign & documented in this encounter Plan of Treatment Upcoming Encounters Date Type Department Care Team (Late st Contact Info) Description 10/29/2024 11:00 AM EDT Anticoagulation - Warfarin Visit [facility] [address] [address] 10/31/2024 11:30 AM EDT Appointment [facility] Infusion [address] [address] 11/14/2024 11:30 AM EDT Appointment [address] [address] 11/26/2024 11:00 AM EDT Appointment Radiology Department - [address] [address] 11/28/2024 10:45 AM EDT Consult Orthopedic Surgery - [place] 250 175 [facility] 250 [place] [phone] Leeroy Schneider DPM [address] [address] 12/12/2024 10:00 AM EDT Treatment [facility] Occupational Therapy [address] [phone] Sandra Crowder, OTR/L 12/18/2024 11:25 AM EDT Office Visit Pulmonolgy - [place] 175 [facility] 200 [place] [phone] Chelsea Shi, ALAINA 175 [facility] 200 [place] [address] 01/06/2025 10:40 AM EDT Office Visit [facility] - [facility] [address] 300 [facility] 154 [place] [phone] Mikael Montoya NP 300 [place] [address] 01/16/2025 10:00 AM EDT Office Visit Internal Medicine - [place] 175 [facility] 200 [place] [address] Elizabet Shannon MD 175 [facility] 200 [place] [address] documented as of this encounter Visit Diagnoses Not on filedocumented in this encounter Care Teams Field Artillery Targeting Technician Relationship Specialty Start Date End Date Elizabet Shannon MD [address] [address] PCP - General Internal Medicine 05/06/24 documented as of this encounter
--- OUTSIDE RECORDS SUMMARY | 2024-10-25 16:27 | XMS_ITS | Encounter Summary ---
Author Organization [facility] Address [address] [place] [address] Care Team Providers Care Kier Boiler Name Role Phone Rishi Lion MD Primary Care [facility] Encounter Details Date Type Department Care [...] - Warfarin Visit Coumadin Clinic - [address] [address] 10/31/2024 11:30 AM EDT Appointment [facility] [address] [place] [address] 11/14/2024 11:30 AM EDT Appointment [facility] [address] [place] [address] 11/26/2024 11:00 AM EDT Appointment Radiology Department - [address] [address] 11/28/2024 10:45 AM EDT Consult Orthopedic Surgery - [place] [address] [phone] Leeroy Schneider DPM [address] [address] 12/12/2024 10:00 AM EDT Treatment [facility] 175 [facility] 350 [place] [address] Sandra Crowder, OTR/L 12/18/2024 11:25 AM EDT Office Visit Pulmonolgy - [place] 175 [facility] 200 [place] [address] Chelsea Shi NP 175 [facility] 200 [place] [address] 01/06/2025 10:40 AM EDT Office Visit [facility] - [facility] 154 300 [facility] 154 [place] [phone] Mikael Montoya NP 300 [place] [address] 01/16/2025 10:00 AM EDT Office Visit Internal Medicine - [place] [address] [phone] Elizabet Shannon MD [address] [address] documented as of this encounter Visit Diagnoses Not on filedocumented in this encounter Additional Health Concerns Infection Onset Date Last Indicated Resolved Time Respiratory Rule-Out 06/18/2024 06/18/2024 024 5:27 PM EST COVID-19 Rule-Out 06/18/2024 06/18/2024 06/18/2024 5:27 PM EST documented as of this encounter Care Teams Kier Boiler Relationship Specialty Start Date End Date Rishi Lion MD [address] [place] [address] [place] [address] PCP - General 04/04/24 05/05/24 documented as of this encounter
--- OUTSIDE RECORDS SUMMARY | 2024-10-25 16:27 | XMS_ITS | Clinical Summary ---
Author Organization [facility] Address [address] [place] [address] [place] [address] Phone Care Team Providers Care Case Finishing Machine Adjuster Name Role Phone Amaya Lewis MD Primary Care Provider [phone] Allergies Active Allergy Reactions Criticality Noted Date Comments Digoxin Other (see comments) 08/05/2022 Pt an sson unsure of reaction Xj-Hpokxyzoj-Dqxidgqziu nol Other (see comments) 08/05/2022 Lisinopril 11/15/2022 Simvastatin Other (see comments) 11/15/2022 Medications warfarin (COUMADIN) 2.5 MG tablet 09/28/19 23 Active Tiotropium [place] Monohydrate (Spiriva Respimat) 1.25 MCG/ACT aerosol solution [...] of kidney 12/07/2013 Overview (08/07/2023): CT 08/25/11 [place] - right renal parapelvic cyst and smaller [...] 09/30/2012 Overview (08/07/2023): Also on MRI 12/2014. Pegger Dobby Looms - endometrial bx 03/16/15 - benign Nephrolithiasis 09/13/2012 Overview (08/07/2023): Per old recrods, 10/05/2005 Aortic root dilatation 09/05/2012 Overview (08/07/2023): According to cardiac note. Followed by Dr. Chan at [facility]. History of polyp of colon 07/18/2012 Overview (08/07/2023): Colonoscopy Dr. Bob Breen 08/12/11 -small cecal polyp: tubular adenoma. Consider next exam 2016. Encounters Date Type Department Care Team Description 09/06/2024 Office Communication [facility] [address] [place] [address] Tyron Mckenna MD from Last 3 [...] Visit [facility] [address] [place] [address] [place] [address] Jose Hardy MD [address] [facility] 204 [place] [address] Health Maintenance Due Date Last [...] patient's age to complete this topic Insurance [facility] ([id number]) [facility] ([id number]) Care Teams Case Finishing Machine Adjuster Relationship Specialty Start Date End Date Amaya Lewis MD [address] [place] PCP - General Internal Medicine 05/20/24
[2024-10-25 16:42] LABS: MANUAL DIFF FLAG NO
[2024-10-25 16:44] LABS: Basophils Percent Auto 0.4 % (0-2); Eosinophils Percent Auto 0.8 % (0-4); Hematocrit 34.3 % (37.0-47.0); Hemoglobin 10.4 g/dl (12.0-16.0); Imm Gran Abs Auto 0.01 X10*3/uL (0.00-0.03); Imm Gran Pct Auto 0.2 % (0.0-0.4); Lymphocytes Absolute Auto 1.4 X10*3/uL (1.2-4.9); Lymphocytes Percent Auto 28.7 % (20-40); Mean Corpuscular HGB Conc 30.3 g/dl (31.0-35.0); Mean Corpuscular Hemoglobin 29.4 pg (27.0-33.0); Mean Corpuscular Volume 96.9 fL (80.0-98.0); Mean Platelet Volume 11.2 fL (9.4-12.3); Monocytes Absolute Auto 0.6 X10*3/uL (0.1-1.2); Monocytes Percent Auto 12.2 % (2-11); Neutrophils Absolute Auto 2.8 x10*3/uL (2.0-8.3); Neutrophils Percent Auto 57.7 % (45-73); Platelet Count 147 X10*3/uL (160-400); Red Blood Count 3.54 X10*6/uL (4.20-5.50); Red Cell Distribution Width 15.7 % (11.0-16.0); Venous Blood Gas Refer to POC result; White Blood Count 4.8 X10*3/uL (4.8-10.8)
[2024-10-25 16:45] LABS: VBG Base Excess 13.7 mmol/L; VBG HCO3 41 mmol/L (22-26); VBG pCO2 67 mmHg; VBG pH 7.39 (7.32-7.43); VBG pO2 43 mmHg
[2024-10-25] MEDS: levalbuterol HCL 2.5 MG, Ipratropium Bromide 0.5 MG INHALE (16:47)
[2024-10-25 16:52] LABS: INTERNATIONAL NORM RATIO 1.3 (0.9-1.1); Prothrombin Time 15.5 SEC (10.9-12.4)
[2024-10-25 16:58] LABS: Alanine Aminotransferase 14 U/L (0-31); Albumin Level 3.2 g/dL (3.5-5.0); Alkaline Phosphatase 85 U/L (39-117); Anion Gap 16 (12-20); Aspartate Amino Transferase 28 U/L (5-31); Bilirubin Direct 0.3 mg/dL (0.0-0.5); Bilirubin Total 0.7 mg/dL (0.0-1.0); Blood Urea Nitrogen 28 mg/dL (9-16); C Reactive Protein 9.22 mg/dL (< or = 0.50); Calcium 8.3 mg/dL (8.4-10.2); Carbon Dioxide 34 mmol/L (22-29); Chloride 93 mmol/L (96-108); Estimated Glomerular Filt Rate 35; Ethanol 11 mg/dL; Glucose Random 90 mg/dL (60-115); Sodium 139 mmol/L (135-145); Total Protein 7.2 g/dL (6.5-8.0)
[2024-10-25 16:59] LABS: Lactic Acid 1.3 mmol/L (0.5-2.0)
[2024-10-25 17:05] LABS: Troponin-I High Sensitivity 6.2 ng/L (<3.5-17.0)
[2024-10-25] MEDS: cefTRIAXone sodium 1 GM VIAL IVPUSH (17:07)
[2024-10-25 17:29] LABS: Influenza A PCR NEGATIVE (Negative); Influenza B PCR NEGATIVE (Negative); Resp Syncy Virus RNA Qual PCR NEGATIVE (Negative); SARS COV2 PCR INHOUSE NEGATIVE (Negative)
[2024-10-25] MEDS: Azithromycin 500 MG in 0.9 % Sodium Chloride 250 ML 125 MG IV (17:30)
--- NOTE | 2024-10-25 17:41 | PC.NURSE ---
pt comes in from home for increasing SOB. hx of COPD with O2 use at baseline. Admit with pneumonia to [facility] about 1 month ago and pt reports that she has not felt all that well since. She has a cough, and is wheezy. RT has given a breathing treatment. IV established and abx infusing. rectal temp on arrival 101.7 - MD notified. Pt also was tachy (afib on tele). in the 110-130. her lower extremities are significantly swollen.
--- NOTE | 2024-10-25 18:41 | PC.NURSE ---
[facility] 93 - Dr Morales notified. tylenol ordered, for fever
[2024-10-25] MEDS: 0.9 % Sodium Chloride 500 ML IV (19:06)
[2024-10-25] MEDS: Acetaminophen 1,000 MG/100 ML PIGGYBACK 400 MG IV (19:06)
[2024-10-25 19:11] LABS: B Type Natriuretic Peptide 101 pg/mL (<100)
[2024-10-25] MEDS: 0.9 % Sodium Chloride 1,000 ML 999 ML IV (19:56)
--- NOTE | 2024-10-25 20:27 | PC.NURSE ---
T/w alerted to hypotension. MD at bedside and aware. Per MD, to discontinue liter of NS ordered due to concern for pulmonary edema, only 100 ml infused of the 1 liter bag. Plan for Norepi for pressure support.
[2024-10-25] MEDS: Norepinephrine Bitartrate/D5W 8 MG/250 ML PLAST..BAG 7.86 MG IVCONT (20:37)
--- NOTE | 2024-10-25 20:42 | PC.NURSE ---
norepi rate increased to 0.09mcg/kg/min per dr bowers
[2024-10-25] MEDS: Amiodarone/Dextrose 150 MG/100 ML PLAST..BAG 600 MG IV (20:43)
[2024-10-25 21:40] LABS: Lactic Acid 0.9 mmol/L (0.5-2.0)
[2024-10-25 21:47] LABS: Troponin-I High Sensitivity 7.9 ng/L (<3.5-17.0)
[2024-10-25 23:04] LABS: Appearance Urine Clear; Color Urine Yellow; Glucose Urine UA 500 mg/dL (Negative); Leukocyte Esterase Urine Negative (Negative); Nitrite Urine Negative (Negative); UMIC TRIGGER UACC YES; Urine Blood Moderate (2+) (Negative); Urine Ketones Negative (Negative); Urine Protein 30 (1+) mg/dL (Neg-Trace)
[2024-10-25 23:09] LABS: Bacteria Urine None Seen (None Seen); Hyaline Casts Urine 0-2 /LPF (0-2); Squamous Epithelial Cell Urine 0-2 /HPF (0-2); WBC Urine 0-5 /HPF (0-5)
[2024-10-25 23:13] LABS: Amphetamine Screen Urine Not Detected (Not Detect); Barbiturates, Urine Not Detected (Not Detect); Benzodiazepines Screen Urine Not Detected (Not Detect); Buprenorphine Scr Not Detected (Not Detect); Cannabinoid Screen Urine Not Detected (Not Detect); Cocaine Screen Urine Not Detected (Not Detect); Fentanyl, urine Not Detected (Not Detect); Methadone Screen, Urine Not Detected (Not Detect); Opiate Screen Urine Not Detected (Not Detect); Oxycodone Screen Urine Not Detected (Not Detect); Phencyclidine Screen Urine Not Detected (Not Detect)
--- NOTE | 2024-10-25 23:24 | PC.NURSE ---
nurse to nurse report called to Chiquita BURGESS at [id number].
[2024-10-26 08:28] LABS: Adenovirus PCR Not Detected (Not Detect.); Bordetella parapertussis PCR Not Detected (Not Detect.); Bordetella pertussis PCR Not Detected (Not Detect.); Chlamydia pneumoniae PCR Not Detected (Not Detect.); Coronavirus 229E PCR Not Detected (Not Detect.); Coronavirus HKU1 PCR Not Detected (Not Detect.); Coronavirus NL63 PCR Not Detected (Not Detect.); Coronavirus OC43 PCR Not Detected (Not Detect.); Human metapneumovirus PCR Detected (Not Detect.); Influenza A PCR Not Detected (Not Detect.); Influenza B PCR Not Detected (Not Detect.); Mycoplasma pneumoniae PCR Not Detected (Not Detect.); Parainfluenza 1 PCR Not Detected (Not Detect.); Parainfluenza 2 PCR Not Detected (Not Detect.); Parainfluenza 3 PCR Not Detected (Not Detect.); Parainfluenza 4 PCR Not Detected (Not Detect.); RSV PCR Not Detected (Not Detect.); Rhino/Enterovirus PCR Not Detected (Not Detect.)
[2024-10-26 09:03] LABS: Influenza A H1 PCR Not Detected (Not Detect.); Influenza A H1-2009 PCR Not Detected (Not Detect.); Influenza A H3 PCR Not Detected (Not Detect.); SARS-CoV-2 PCR Not Detected (Not Detect.)
== END 2024-10-25 23:35 | disposition short-term general hospital (02) ==
PROVIDERS: Emergency Provider Emergency Medicine
DX: I11.0 Hypertensive heart disease with heart failure (principal); I50.9 Heart failure, unspecified; J44.1 Chronic obstructive pulmonary disease with (acute) exacerbation; I95.9 Hypotension, unspecified; R06.02 Shortness of breath; R00.0 Tachycardia, unspecified; R50.9 Fever, unspecified; I48.20 Chronic atrial fibrillation, unspecified; Z03.818 Encounter for observation for suspected exposure to other biological agents ruled out; Z79.899 Other long term (current) drug therapy; Z79.01 Long term (current) use of anticoagulants; Z99.81 Dependence on supplemental oxygen
CPT/HCPCS: 0241U; 36415; 71045; 80048; 80076; 80307; 81001; 82803; 83605; 83735; 83880; 84484; 85025; 85610; 86140; 87040; 87633; 93005; 94640; 96361; 96365; 96367; 96375; 99285; 99291; J0131; J0283; J0456; J0696

== ENCOUNTER → 2024-10-25 16:08 | Outpatient (BNV) | payer OTHER, SELFPAY | PROVIDERS: Emergency Provider Emergency Medicine; Visit Provider Internal Medicine Cardiovascular Disease | DX: I48.91 Unspecified atrial fibrillation (principal) | CPT/HCPCS: 93010 ==

== ENCOUNTER → 2024-10-25 16:08 | Outpatient (BNV) | payer OTHER, SELFPAY | PROVIDERS: Emergency Provider Emergency Medicine; Visit Provider Radiology Diagnostic Radiology | DX: R06.02 Shortness of breath (principal) | CPT/HCPCS: 71045 ==

== ENCOUNTER 2024-11-14 13:04 | Outpatient (RCR) | payer OTHER, SELFPAY | END 2024-12-12 11:56 | disposition home or self-care (01) | LOC: HO.WCC 13:04 | PROVIDERS: PCP Student in an Organized Health Care Education/Training Program; Visit Provider Surgery | DX: L89.312 Pressure ulcer of right buttock, stage 2 (principal); L89.322 Pressure ulcer of left buttock, stage 2; L20.89 Other atopic dermatitis; N39.498 Other specified urinary incontinence; Z99.81 Dependence on supplemental oxygen | CPT/HCPCS: 97597; 99212; 99213 ==

== ENCOUNTER 2025-03-06 14:56 | Emergency (ER) | payer OTHER, SELFPAY ==
[2025-03-06] VITALS (29 sets, daily range): BP systolic 79–107; BP diastolic 42–78; PULSE 95–125; RESP 15–20; TEMP 36–36.7; O2SAT 95–100; BMI 26.6
--- NOTE | ~2025-03-06 | CT_ITS ---
CLINICAL HISTORY: cough, tachycardic, hypotensive CT chest without contrast Comparison: CT/REG/SR - CT ABDOMEN PELVIS WO IV CON - 03/06/25 19:15 EDT CR/WI/SR - XR CHEST 2 VIEWS - 03/06/25 16:42 EDT CR - XR CHEST 1V - 10/25/24 16:[address]/SR - CT ANGIO CHEST PE PROTOCOL - 10/08/24 17:48 EDT Findings: No mediastinal mass or lymphadenopathy. Cardiomegaly. Mild calcified coronary artery disease. Mild calcification of the aortic valve. Dilation of the descending thoracic aorta, measuring 3.0 cm. Mild calcified atherosclerotic disease. Mosaic attenuation. Resolution of the previously seen right lower lobe pneumonia. Mild elevation of the left hemidiaphragm with subsegmental atelectasis versus linear scarring in the lingula. Trace amount of secretions in the airways with mild bronchial wall thickening. No pneumothorax or pleural effusion. No acute osseous or soft tissue abnormality. Dilation of the gallbladder no gallstones visible on CT. No gallbladder wall thickening or pericholecystic fluid. Impression: Mild bronchial wall thickening with a trace amount of secretions in the airways may indicate bronchitis. Mosaic attenuation could be secondary to air trapping or developing ground-glass opacity due to an infectious/inflammatory process or edema. This document has been electronically signed by: Ada Jain MD on 03/06/2025 20:41:21
--- NOTE | ~2025-03-06 | CT_ITS ---
CLINICAL HISTORY: diarrhea CT abdomen and pelvis without contrast Comparison: None available Findings: No consolidation at the lung bases. Cholelithiasis. No gallbladder wall thickening or pericholecystic fluid. The gallbladder is mildly distended. Unremarkable bladder. Scarring in the upper pole of the right kidney with parenchymal calcifications and associated calyceal dilatation, chronic appearing. Right renal parapelvic cyst is favored. No urinary tract stone. The other solid organs are unremarkable. No bowel wall thickening or dilation. A normal appendix is identified. Colonic diverticulosis. No inflamed diverticula or pericolonic stranding. No aneurysm. Mild calcified atherosclerotic disease of the abdominal aorta. Severe calcified atherosclerotic disease of small caliber vessels. No lymphadenopathy. No ascites. No acute osseous abnormality. Grade 1 anterolisthesis of L4 on L5, degenerative. Intact right total hip arthroplasty Impression: Cholelithiasis with mild gallbladder distention. No gallbladder wall thickening or pericholecystic fluid. If there is clinical concern for acute cholecystitis further evaluation with right upper quadrant ultrasound may be helpful. This document has been electronically signed by: Ada Jain MD on 03/06/2025 19:59:12
--- NOTE | ~2025-03-06 | US_ITS ---
CLINICAL HISTORY: Cholecystitis rule out US abdomen limited Comparison: CT/REG/SR - CT ABDOMEN PELVIS WO IV CON - 03/06/25 19:15 EDT Findings: The common duct is 5 mm in diameter. The gallbladder demonstrates stones, borderline wall thickening and a reportedly positive sonographic Odonnell's. No ascites. IMPRESSION: Gallstones are present. There is borderline gallbladder wall thickening at 3 mm. There is also a reported positive sonographic Odonnell's. Acute calculus cholecystitis possible. This document has been electronically signed by: Jose Waters MD on 03/06/2025 21:07:04
--- NOTE | ~2025-03-06 | XR_ITS ---
EXAMINATION: XR CHEST CLINICAL INFORMATION: tachycardic COMPARISON: Chest radiograph on October 25, 2024. Chest CT on October 08, 2024. TECHNIQUE: 2 views of the chest were obtained. FINDINGS: Lungs: Low lung volumes. Patchy opacities in bilateral lungs, however, no obvious evidence of lobar pneumonia. Pleura: No pleural effusion or pneumothorax. Heart/Mediastinum: Enlargement of the cardiac silhouette is similar to prior study. Bones: Scoliosis XR/XR chest 2V IMPRESSION: Patchy opacities in bilateral lungs. Findings may represent early airspace disease. No evidence of lobar pneumonia. Electronically signed by: Priyanka Pelayo MD 03/06/2025 04:56 PM EDT
--- NOTE | 2025-03-06 15:15 | ED.GENADULT ---
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 Patient reports that she has had diarrhea for the past 2 days. Denies hematochezia or melena. She denies nausea or vomiting but does report decreased appetite, only ate a few spoonfuls of soup yesterday. She denies fever, chills, sweats. She denies chest pain or palpitations. She does report mild lightheadedness. MD complaint: Hypotension Related Data Home Medications ?Medication ?Instructions ?Recorded ?Confirmed cholecalciferol (vitamin D3) 50 50 mcg PO DAILY 02/04/21 10/08/24 mcg (2,000 unit) capsule (Vitamin D3) loratadine 10 mg tablet 10 mg PO DAILY 02/04/21 10/08/24 omeprazole 20 mg capsule,delayed 20 mg PO DAILY@0630 02/04/21 10/08/24 release fluticasone fur. 100 mcg-umeclid 1 puff inhalation DAILY 05/03/21 10/08/24 62.5 mcg-vilant 25 mcg inhalat.powder (Trelegy Ellipta) albuterol sulfate 2.5 mg/3 mL 2.5 mg inhalation Q4H PRN 08/09/21 10/08/24 (0.083 %) solution for nebulization Shortness Of Breath montelukast 10 mg tablet 1 tab PO DAILY 08/09/21 10/08/24 cyanocobalamin (vitamin B-12) 1,000 mcg PO DAILY 05/29/24 10/08/24 1,000 mcg tablet diltiazem HCl 240 mg 240 mg PO DAILY 05/29/24 10/08/24 capsule,extended release 24 hr levothyroxine 75 mcg tablet 75 mcg PO DAILY@0600 05/29/24 10/08/24 torsemide 20 mg tablet 40 mg PO BID 08/26/24 10/08/24 warfarin 5 mg tablet 2.5 mg PO DAILY@1800 08/26/24 10/08/24 Previous Rx's ?Medication ?Instructions ?Recorded cefuroxime axetil 500 mg tablet 500 mg PO BID #8 tabs 10/11/24 doxycycline monohydrate 100 mg 100 mg PO BID #8 tabs 10/11/24 tablet prednisone 20 mg tablet 40 mg (2 x 20 mg) PO DAILY #6 tabs 10/11/24 Allergies Allergy/AdvReac Type Severity Reaction Status Date / Time lisinopril (LISINOPRIL) Allergy Unknown UNKNOWN Verified 03/06/25 15:14 simvastatin (SIMVASTATIN) Allergy Unknown UNKNOWN Verified 03/06/25 15:14 Review of Systems Review of Systems: as per hpi Yes all other systems are reviewed and are negative Constitutional: Constitutional: Reports as per HPI [facility] Past Medical History Medical History (Updated 03/06/25 @ 22:23 by Viry Paris, DO) EMERY (obstructive sleep apnea) Generalized weakness Stage II decubitus ulcer Conjunctivitis Pneumonia Hypotension JEN (acute kidney injury) Tricuspid valve regurgitation Pulmonary hypertension Acute on chronic right heart failure Idiopathic hypotension Sepsis Cellulitis of right leg Lymphedema Non-healing wound of right lower extremity Venous stasis dermatitis of right lower extremity CHF (congestive heart failure) Hypothyroid Afib Asthma HTN (hypertension) Surgical History S/P hip replacement Family History Family History Mother Gastric cancer Social History Social History Household Members: None Housing: Apartment Do you presently have visiting nurse or other home services: Yes Alcohol intake: never Comment: sleeping in recliner Patient Tobacco Use Status: Never used Tobacco Smoked in Last 30 Days: No Second Hand Smoke Exposure: No Use of substances other than those prescribed or required for medical reasons: No Advance Directives: Yes Advance Directives on File: Yes Advance Directives Date on File: 02/05/21 service: No Current occupational status: disabled Physical Exam ED Vital Signs: Vital Signs - 24 hr 03/06/25 15:05 03/06/25 15:32 03/06/25 16:51 Temperature 97.8 F 96.8 F Pulse Rate 120 H 117 H Respiratory Rate 18 18 Blood Pressure 85/55 L 92/47 L Pulse Oximetry 97 95 Oxygen Delivery Method Room Air Room Air 03/06/25 18:23 03/06/25 19:35 03/06/25 19:56 Temperature 97.5 F Pulse Rate 117 H 119 H 110 H Respiratory Rate 15 20 Blood Pressure 87/44 L 79/53 L 80/54 L Pulse Oximetry 96 95 Oxygen Delivery Method Room Air Room Air 03/06/25 20:01 03/06/25 20:06 03/06/25 20:18 Temperature Pulse Rate 116 H 102 H 107 H Respiratory Rate 17 Blood Pressure 90/56 L 102/61 107/78 Pulse Oximetry 100 Oxygen Delivery Method Room Air 03/06/25 20:42 03/06/25 20:47 03/06/25 20:52 Temperature Pulse Rate 107 H 109 H 101 H Respiratory Rate Blood Pressure 81/42 L 87/51 L 89/58 L Pulse Oximetry Oxygen Delivery Method 03/06/25 20:57 03/06/25 21:02 03/06/25 21:30 Temperature Pulse Rate 102 H 107 H 104 H Respiratory Rate Blood Pressure 90/55 L 93/60 91/51 L Pulse Oximetry Oxygen Delivery Method 03/06/25 21:35 03/06/25 21:40 03/06/25 21:45 Temperature Pulse Rate 114 H 108 H 105 H Respiratory Rate Blood Pressure 92/59 L 94/61 97/55 L Pulse Oximetry Oxygen Delivery Method 03/06/25 21:50 03/06/25 21:55 03/06/25 22:00 Temperature Pulse Rate 95 104 H 110 H Respiratory Rate Blood Pressure 90/59 L 94/56 L 99/60 Pulse Oximetry Oxygen Delivery Method 03/06/25 22:05 03/06/25 22:07 03/06/25 22:10 Temperature 97.8 F Pulse Rate 113 H 117 H 111 H Respiratory Rate 16 Blood Pressure 103/65 103/65 93/61 Pulse Oximetry 98 Oxygen Delivery Method Room Air 03/06/25 22:15 03/06/25 22:20 03/06/25 22:25 Temperature Pulse Rate 109 H 110 H 113 H Respiratory Rate Blood Pressure 93/62 97/57 L 92/52 L Pulse Oximetry Oxygen Delivery Method BMI result Body Mass Index 26.6 Vital signs have been reviewed and appear to be correct. Blood pressure hypotensive. Heart rate tachycardic. Respiratory rate normal. Temperature normal. Oxygen saturation normal. Const General: cooperative, no acute distress, alert and awake Orientation/consciousness: oriented to person, oriented to place, oriented to time and patient oriented x3 Limitations: language barrier HENMT Head: Yes normocephalic and Yes atraumatic Ears: external ears normal General nose exam: Normal external nose present Face and sinus: Yes face symmetric Mouth: oropharynx normal and moist mucous membranes Throat: Yes uvula midline Eyes Pupils: Equal, round and reactive pupils present Neck Neck: Yes normal visual inspection and Yes supple Resp Effort & Inspection: normal respiratory effort and able to speak in complete sentences Auscultation: clear to auscultation bilaterally Cardio Rate: regular rate Rhythm: regular rhythm Heart sounds: S1 normal heart sound present and S2 normal heart sound present GI Palpation (GI): Soft to palpation and nontender Auscultation: normoactive bowel sounds General: Yes no CVA tenderness Back/Spine/Pelvis Back: no CVA tenderness Skin Other: Two open wounds to sacral area, 1 with minor bleeding, no surrounding erythema or warmth General skin exam: elasticity normal and turgor normal Neuro General: oriented to person, oriented to place, oriented to time, patient oriented x3, moves all extremities, no focal motor deficits and CN's II-XI intact bilaterally Cranial nerves: Yes Equal, round and reactive pupils present Cognition (Neuro): normal cognition Extrem Other: bilateral lower legs bandaged on arrival General: Yes full ROM, Yes no calf tenderness and Yes pedal edema Psych Mental Status: mental status grossly normal Affect: normal affect Thought process: Normal thought process present Course Reevaluation(s) Reevaluation #1: Critical INR of 7.6 received from lab. Time: 16:35 Reevaluation #2: Per patient's son, her diltiazem dose was recently decreased to 120, order changed, RN aware. Time: 17:10 Medications Administered Generic Name Dose Route Start Last Admin Trade Name Freq PRN Reason Stop Dose Admin Norepinephrine Bitartrate 8 mg in 250 mls @ 0 mls/hr 03/06/25 19:15 03/06/25 22:25 Levophed IVCONT 0.05 mcg/kg/min .Q0M SEBASTIAN 6.38 mls/hr Protocol Titration Per Protocol Sodium Chloride 1,000 mls @ 999 mls/hr 03/06/25 21:30 03/06/25 21:38 Ns IV 03/06/25 22:30 999 mls/hr .Q1H1M SEBASTIAN Administration Discontinued Medications Generic Name Dose Route Start Last Admin Trade Name Renuka PRN Reason Stop Dose Admin Ceftriaxone Sodium 1 gm 03/06/25 17:39 03/06/25 18:41 Ceftriaxone Sodium 1 Gm Vial IVPUSH 03/06/25 17:40 1 gm ONCE ONE Administration Diltiazem HCl 120 mg 03/06/25 17:09 03/06/25 17:14 Diltiazem Hcl Cd 120 Mg Cap.Er.Deg PO 03/06/25 17:10 120 mg ONCE ONE Administration Protocol Hydrocortisone Sodium Succinate 100 mg 03/06/25 18:02 03/06/25 18:46 Hydrocortisone Sod Succ/Pf 100 Mg Vial IVPUSH 03/06/25 18:03 100 mg ONCE ONE Administration Sodium Chloride 500 mls @ 999 mls/hr 03/06/25 15:30 03/06/25 16:34 Ns IV 03/06/25 16:00 Infused .Q31M SEBASTIAN Infusion Albumin Human 50 mls @ 100 mls/hr 03/06/25 18:00 03/06/25 20:43 Kedbumin 25 % IV 03/06/25 19:59 Infused Q30M SEBASTIAN Infusion Sodium Chloride 500 mls @ 999 mls/hr 03/06/25 18:00 03/06/25 18:51 Ns IV 03/06/25 18:30 Not Given .Q31M SEBASTIAN Azithromycin 500 mg/ Sodium 250 mls @ 125 mls/hr 03/06/25 17:59 03/06/25 20:54 Chloride IV 03/06/25 19:58 Infused ONCE ONE Infusion Piperacillin Sod/Tazobactam 100 mls @ 200 mls/hr 03/06/25 19:12 03/06/25 21:16 Sod 4.5 gm/ Sodium Chloride IV 03/06/25 19:41 Infused ONCE ONE Infusion Vancomycin HCl 1,500 mg/ 500 mls @ 333.333 mls/hr 03/06/25 19:47 03/06/25 21:19 Sodium Chloride IV 03/06/25 21:16 333.33 mls/hr ONCE ONE Administration Ondansetron HCl 4 mg 03/06/25 20:05 03/06/25 21:20 Ondansetron Hcl 4 Mg/2 Ml Vial IVPUSH 03/06/25 20:06 Not Given ONCE ONE Pantoprazole Sodium 80 mg 03/06/25 19:11 03/06/25 19:27 Pantoprazole Sodium 40 Mg/10 Ml Vial IVPUSH 03/06/25 19:12 80 mg ONCE ONE Administration Phytonadione 5 mg 03/06/25 16:44 03/06/25 17:05 Phytonadione (Vit K1) Oral 10 Mg/Ml Ampul PO 03/06/25 16:45 5 mg ONCE ONE Administration Medical Decision Making Medical Decision Making MDM Narrative: Patient is an 84-year-old Bahamian speaking female with history of AFib, CKD stage 3, HFpEF, COPD, hypotension referred to the emergency department by visiting nurse for low blood pressure and tachycardia. On exam patient is awake, A+Ox3, hypotensive and tachycardic in rapid afib, afebrile, normal neurological exam without focal deficits, physical exam findings as above. Given reported symptoms and physical exam findings, initial differential includes but is not limited to cardiac arrhythmia, sepsis, dehydration, PNA, UTI, other electrolyte abnormality. At 1740 now suspecting sepsis with leukocytosis of 27, unclear source, ceftriaxone ordered. Labs notable for significant leukocytosis with left shift, INR of 7.6, normal lactic, elevated BUN and creatinine from baseline, mildly elevated BNP. PO vitamin K ordered. X-ray chest notable for patchy opacities. My interpretation is in agreement with the radiologist's interpretation. Case discussed with attending, Dr. Paris, who recommends additional gentle fluid hydration, stress dose steroids, CT chest, A/P. Patient signed out to Dr. Paris pending imaging results and reassessment. Received sign-out from [facility] PAC, My impression this is a 84-year-old female that is seeing you septic shock at this time Levophed initiated for the patient. She does have a initial white count of 27. Second CBC was drawn she has a white count of 22.8. Lactic acid is not elevated inpatient, UA is pending at this time. Patient did have a bowel movement here. Appears to be forearm however dark in nature. IV Protonix given. The patient did have a elevated INR of 7.6. CT imaging of the chest shows mild bronchial wall thickening, and signs of possible ground-glass opacity. CT abdomen and pelvis shows sign of cholelithiasis with mild gallbladder distention. There was no gallbladder wall thickening or pericholecystic. Right upper quadrant ultrasound shows gallstones and borderline gallbladder wall thickening at 3 mm. I did reassess patient's right upper quadrant. No sign of tenderness on exam. Patient's remains on Levophed. We are giving her additional L IV fluid. Her heart rate is in the low 100s in AFib. I did attempt to transfer patient to [facility] however they do not have any ICU beds at this time. Unfortunately our ICU beds are full. Per family request I did reach out to [facility]. They do have an available ICU bed. Patient will be transferred to [facility]. Accepting doctor is Dr. Clemons Differential Diagnosis Differential Diagnoses: The differential diagnosis associated with the presentation includes as per [facility] Admission/Observation Consideration of admission/observation: Escalation of care including admission/observation considered Consult Healthcare Provider ICU [facility] Lab Data [facility] Lab Attestation statement: I reviewed the patient's lab results. as per [facility] 03/06/25 18:54 03/06/25 15:52 Labs: Lab Results 03/06/25 03/06/25 03/06/25 Range/Units 15:52 16:10 16:21 WBC 27.2 H (4.8-10.8) X10*3/uL RBC 3.42 L (4.20-5.50) X10*6/uL Hgb 9.7 L (12.0-16.0) g/dl Hct 31.5 L (37.0-47.0) % MCV 92.1 (80.0-98.0) fL MCH 28.4 (27.0-33.0) pg MCHC 30.8 L (31.0-35.0) g/dl RDW 14.4 (11.0-16.0) % Plt Count 263 D (160-400) X10*3/uL MPV 9.8 (9.4-12.3) fL Immature Gran % (Auto) 0.7 H (0.0-0.4) % Neut % (Auto) 94.3 H (45-73) % Lymph % (Auto) 3.3 L (20-40) % [place] % (Auto) 1.4 L (2-11) % Eos % (Auto) 0.1 (0-4) % Baso % (Auto) 0.2 (0-2) % Lymph # (Auto) 0.9 L (1.2-4.9) X10*3/uL [place] # (Auto) 0.4 (0.1-1.2) X10*3/uL Eos # (Auto) 0.0 (0.0-0.4) X10*3/uL Baso # (Auto) 0.1 (0.0-0.2) X10*3/uL Abs Immat Gran (auto) 0.18 H (0.00-0.03) X10*3/uL Absolute Neuts (auto) 25.7 H (2.0-8.3) x10*3/uL Absolute Nucleated RBC 0.000 (0.0-0.012) X10*3/uL Nucleated RBC % (auto) 0.0 (0.0-0.2) /100WBC Smear Tech's Comments VERIFIED PT 87.5 H D (10.9-12.4) SEC INR 7.6 H* D (0.9-1.1) Sodium 133 L (135-145) mmol/L Potassium 4.6 (3.3-5.1) mmol/L Chloride 101 (96-108) mmol/L Carbon Dioxide 23 (22-29) mmol/L Anion Gap 14 (12-20) BUN 55 H (9-16) mg/dL Creatinine 2.64 H (0.5-1.4) mg/dL Estim Creat Clear Calc 14.6 Estimated GFR 17 Random Glucose 78 (60-115) mg/dL Lactic Acid 1.8 (0.5-2.0) mmol/L Calcium 7.9 L (8.4-10.2) mg/dL Magnesium 1.9 (1.6-2.6) mg/dL Total Bilirubin 0.2 (0.0-1.0) mg/dL AST 21 (5-31) U/L ALT < 6 (0-31) U/L Alkaline Phosphatase 93 (39-117) U/L Troponin I High Sens < 2.7 D (<3.5-17.0) ng/L B-Natriuretic Peptide 255 H (<100) pg/mL Total Protein 7.3 (6.5-8.0) g/dL Albumin 2.3 L (3.5-5.0) g/dL Stool Occult Blood (NEGATIVE) COVID-19 (DAMARIS) Negative (Negative) COVID-19 Clin Com See Note Influenza Type A (ORACIO) Negative (Negative) Influenza Type B (ORACIO) Negative (Negative) Influenza A & B Note See Note 03/06/25 Range/Units 18:54 WBC 22.8 H (4.8-10.8) X10*3/uL RBC 3.68 L (4.20-5.50) X10*6/uL Hgb 10.4 L (12.0-16.0) g/dl Hct 33.6 L (37.0-47.0) % MCV 91.3 (80.0-98.0) fL MCH 28.3 (27.0-33.0) pg MCHC 31.0 (31.0-35.0) g/dl RDW 14.4 (11.0-16.0) % Plt Count 230 (160-400) X10*3/uL MPV 9.4 (9.4-12.3) fL Immature Gran % (Auto) 0.5 H (0.0-0.4) % Neut % (Auto) 93.2 H (45-73) % Lymph % (Auto) 3.9 L (20-40) % Marathon % (Auto) 2.0 (2-11) % Eos % (Auto) 0.2 (0-4) % Baso % (Auto) 0.2 (0-2) % Lymph # (Auto) 0.9 L (1.2-4.9) X10*3/uL Marathon # (Auto) 0.5 (0.1-1.2) X10*3/uL Eos # (Auto) 0.0 (0.0-0.4) X10*3/uL Baso # (Auto) 0.1 (0.0-0.2) X10*3/uL Abs Immat Gran (auto) 0.12 H (0.00-0.03) X10*3/uL Absolute Neuts (auto) 21.2 H (2.0-8.3) x10*3/uL Absolute Nucleated RBC 0.000 (0.0-0.012) X10*3/uL Nucleated RBC % (auto) 0.0 (0.0-0.2) /100WBC Smear Tech's Comments PT (10.9-12.4) SEC INR (0.9-1.1) Sodium (135-145) mmol/L Potassium (3.3-5.1) mmol/L Chloride (96-108) mmol/L Carbon Dioxide (22-29) mmol/L Anion Gap (12-20) BUN (9-16) mg/dL Creatinine (0.5-1.4) mg/dL Estim Creat Clear Calc Estimated GFR Random Glucose (60-115) mg/dL Lactic Acid (0.5-2.0) mmol/L Calcium (8.4-10.2) mg/dL Magnesium (1.6-2.6) mg/dL Total Bilirubin (0.0-1.0) mg/dL AST (5-31) U/L ALT (0-31) U/L Alkaline Phosphatase (39-117) U/L Troponin I High Sens (<3.5-17.0) ng/L B-Natriuretic Peptide (<100) pg/mL Total Protein (6.5-8.0) g/dL Albumin (3.5-5.0) g/dL Stool Occult Blood NEGATIVE (NEGATIVE) COVID-19 (DAMARIS) (Negative) COVID-19 Clin Com Influenza Type A (ORACIO) (Negative) Influenza Type B (ORACIO) (Negative) Influenza A & B Note Independent Interpretation I performed an independent interpretation of an: Plain X-Ray and CT Scan Interpretation: Bilateral patchy opacities on CXR without evidence of pNA Radiology Impression Discussion of test interpretation with radiology: I have reviewed the radiologist's reading. Radiologist Impression: XR/XR chest 2V IMPRESSION: Patchy opacities in bilateral lungs. Findings may represent early airspace disease. No evidence of lobar pneumonia. External Record Review External record reviewed: Inpatient record, Office record and Outpatient record Chronic Conditions COPD, CKD, CHF, Chronic leg wounds Critical Care Time Critical Care Time Critical Care Time: Yes Total Critical Care Time: 60 Attestation: Dia Camara NP have personally provided critical care time exclusive of time spent on separately billable procedures. Time includes review of lab data, radiology results, discussion with consultants, and monitoring for potential decompensation. Intervention performed as documented. Discharge Plan Discharge Clinical Impression: Septic shock Patient Disposition: [facility] Transfer Details: [facility] ICU Prescriptions: No Action omeprazole 20 mg capsule,delayed release(DR/EC) 20 mg PO DAILY@0630 loratadine 10 mg tablet 10 mg PO DAILY cholecalciferol (vitamin D3) [Vitamin D3] 50 mcg (2,000 unit) capsule 50 mcg PO DAILY Trelegy Ellipta 100-62.5-25 mcg blister with device 1 puff inhalation DAILY albuterol sulfate 2.5 mg /3 mL (0.083 %) solution for nebulization 2.5 mg inhalation Q4H PRN (Reason: Shortness Of Breath) montelukast 10 mg tablet 1 tab PO DAILY torsemide 20 mg tablet 40 mg PO BID warfarin 5 mg tablet 2.5 mg PO DAILY@1800 prednisone 20 mg Tablet 40 mg PO DAILY Qty: 6 0RF cefuroxime axetil 500 mg tablet 500 mg PO BID Qty: 8 0RF doxycycline monohydrate 100 mg tablet 100 mg PO BID Qty: 8 0RF diltiazem HCl 240 mg capsule,extended release 24hr 240 mg PO DAILY cyanocobalamin (vitamin B-12) 1,000 mcg tablet 1,000 mcg PO DAILY levothyroxine 75 mcg tablet 75 mcg PO DAILY@0600 Print Language: Bahamian
--- NOTE | 2025-03-06 15:16 | ECG_ITS ---
Test Reason : TACHY Blood Pressure : */* mmHG Vent. Rate : 108 BPM Atrial Rate : * BPM P-R Int : * ms QRS Dur : 82 ms QT Int : 332 ms P-R-T Axes : * 11 -12 degrees QTcB Int : 444 ms Atrial fibrillation with rapid ventricular response Low voltage QRS Possible Inferior infarct , age undetermined Cannot rule out Anterior infarct , age undetermined Abnormal ECG When compared with ECG of 25-Oct-2024 16:18, Minimal criteria for Anterior infarct are now Present No significant change was found Referred By: Dia Figueredo Electronically Signed By: TRENTON BURGESS MD
--- NOTE | 2025-03-06 15:32 | PC.NURSE ---
Pt BIBA c/o nausea and diarrhea x2 days. VNA found pt's BP to be low at home, 70/50s. In ED, BP 80/50s and pt found to be in afib 115-130s. Pt reports hx of low blood pressure but she did not take her medication for hypotension today. ALAINA Alvares at bedside. Pt receiving 500 mL NS via 18g in LAC as ordered. Pt denies CP and SOB. Plan to obtain labs and reassess BP after fluids.
[2025-03-06 16:11] LABS: Alanine Aminotransferase < 6 U/L (0-31); Albumin Level 2.3 g/dL (3.5-5.0); Alkaline Phosphatase 93 U/L (39-117); Anion Gap 14 (12-20); Aspartate Amino Transferase 21 U/L (5-31); Blood Urea Nitrogen 55 mg/dL (9-16); Calcium 7.9 mg/dL (8.4-10.2); Carbon Dioxide 23 mmol/L (22-29); Chloride 101 mmol/L (96-108); Creatinine Clr Calc Pharmacy 14.6; Estimated Glomerular Filt Rate 17; Magnesium 1.9 mg/dL (1.6-2.6); Potassium 4.6 mmol/L (3.3-5.1); Sodium 133 mmol/L (135-145); Total Protein 7.3 g/dL (6.5-8.0)
[2025-03-06 16:17] LABS: Troponin-I High Sensitivity < 2.7 ng/L (<3.5-17.0)
[2025-03-06 16:22] LABS: Prothrombin Time 87.5 SEC (10.9-12.4)
--- NOTE | 2025-03-06 16:28 | MHC.EDTECH ---
EKG was delayed due to the EKG being in use by other pts and this PTs blood work.
[2025-03-06 16:35] LABS: INTERNATIONAL NORM RATIO 7.6 (0.9-1.1)
[2025-03-06 16:35] LABS: Hematocrit 31.5 % (37.0-47.0); Hemoglobin 9.7 g/dl (12.0-16.0); Imm Gran Abs Auto 0.18 X10*3/uL (0.00-0.03); Imm Gran Pct Auto 0.7 % (0.0-0.4); Lymphocytes Absolute Auto 0.9 X10*3/uL (1.2-4.9); MANUAL DIFF FLAG SCAN; Mean Corpuscular HGB Conc 30.8 g/dl (31.0-35.0); Mean Corpuscular Hemoglobin 28.4 pg (27.0-33.0); Mean Corpuscular Volume 92.1 fL (80.0-98.0); NRBC Abs Auto 0.000 X10*3/uL (0.0-0.012); NRBC Pct Auto 0.0 /100WBC (0.0-0.2); Platelet Count 263 X10*3/uL (160-400); Red Blood Count 3.42 X10*6/uL (4.20-5.50); SCAN SMEAR FLAG 1; White Blood Count 27.2 X10*3/uL (4.8-10.8)
[2025-03-06 16:36] LABS: B Type Natriuretic Peptide 255 pg/mL (<100)
[2025-03-06 16:44] LABS: IDNOW Serial# 6674DD1D; Influenza B2 Negative (Negative)
[2025-03-06 16:52] LABS: COVID-19 Test Negative (Negative); IDNOW Serial# 08D9AD1C
[2025-03-06] MEDS: Phytonadione (Vit K1) Oral 10 MG/ML AMPUL 5 MG PO (17:05)
[2025-03-06] MEDS: dilTIAZem HCL CD 120 MG CAP.ER.DEG PO (17:14)
[2025-03-06] MEDS: Hydrocortisone Sod Succ/PF 100 MG VIAL IVPUSH (18:46)
[2025-03-06] MEDS: Albumin Human 25 % 50 ML 100 ML IV ×4 (18:49→20:17)
--- OUTSIDE RECORDS SUMMARY | 2025-03-06 18:58 | XMS_ITS | Clinical Summary ---
Author Organization [facility] Address [address] [place] [address] Phone Care Team Providers Care Purchase Request Editor Name Role Phone Amaya Lewis MD Primary Care Provider [phone] Allergies Active Allergy Reactions Criticality Noted Date Comments Digoxin Other (see comments) 08/05/2022 Pt an sson unsure of reaction En-Uttyivamw-Haldfcdpmy nol Other (see comments) 08/05/2022 Lisinopril 11/15/2022 Simvastatin Other (see comments) 11/15/2022 Medications warfarin (COUMADIN) 2.5 MG tablet 09/28/19 23 Active Tiotropium [place] Monohydrate (Spiriva Respimat) 1.25 MCG/ACT aerosol solution [...] day Active cholecalciferol (VITAMIN D-3) 50 MCG (1999 [place]) capsule 11/15/19 Active albuterol (5 MG/ML) [...] of kidney 12/07/2013 Overview (08/07/2023): CT 08/25/11 [place] - right renal parapelvic cyst and smaller [...] 09/30/2012 Overview (08/07/2023): Also on MRI 12/2014. [place] - endometrial bx 03/16/15 - benign Nephrolithiasis 09/13/2012 Overview (08/07/2023): Per old recrods, 10/05/2005 Aortic root dilatation 09/05/2012 Overview (08/07/2023): According to cardiac note. Followed by Dr. Chan at [facility]. History of polyp of colon 07/18/2012 Overview (08/07/2023): Colonoscopy Dr. Bob Breen 08/12/11 -small cecal polyp: tubular adenoma. Consider next exam 2017. Immunizations Immunization Administration Dates Next Due Influenza [...] Mass Index - - Plan of Treatment Health Maintenance Due Date Last Done Comments Diabetes: Hemoglobin A1C 01/04/2021 Diabetes: Ophthalmology Exam 01/04/2021 Diabetes: Pedal Pulse Checked 01/04/2021 Diabetes: Sensory Foot Exam 01/04/2021 Diabetes: Visual Foot Exam 01/04/2021 Influenza Vaccine (#1) 2025 2, 03/15/2021, 05/29/2018, Additional history exists Pneumococcal Vaccine: 50+ Years Completed 05/29/2018, 10/06/2016, 10/02/2012, Additional history exists Pneumococcal Vaccine: Peds (0 to 5 Years) and At-Risk Patients (6 to 49 Years) Discontinued 05/29/2018, 10/06/2016, 10/02/2012, Additional history exists Hepatitis B Vaccine Aged Out No longe r eligible based on patient's age to complete this topic Insurance [address] [place] [address] [facility] ([id number]) [place] [phone] [facility] ([id number]) [place] [phone] [address] [place] [phone] Care Teams Purchase Request Editor Relationship Specialty Start Date End Date Amaya Lewis MD [address] [place] PCP - General Internal Medicine 05/20/24
--- OUTSIDE RECORDS SUMMARY | 2025-03-06 18:58 | XMS_ITS ---
Author Name [facility] Organization Unknown Encounters Encounter Type Encounter Reason Primary Diagnosis Location Date Ambulatory [facility] 04/05/2024 Care Team Organization Name Specialty Phone Email Start Date End Da te [facility] 2024
--- OUTSIDE RECORDS SUMMARY | 2025-03-06 18:58 | XMS_ITS | Encounter Summary ---
Author Organization [facility] Address [address] [place] [address] Phone Care Team Providers Care Bead Cutter Name Role Phone Janice Cortes MD Primary Care Provide r Laxmi Gutierrez MD Primary Care Provider [phone] Mark Hill DO Primary Care Provider [phone] Encounter Details Date Type Department Care Team (Latest Contact Info) Description 09/23/2020 Ancillary Orders [facility] [address] 3rd Floor, [address] [place] [address] Filemon Florentino DO [address] [place], [place] [id number] [email or web address] Claudication in peripheral vascular disease Social History Tobacco Use Types Packs/Day Years Used Date Smoking Tobacco: Never Smokeless Tobacco: Never Comments Unknown Sex and Gender Information Value Date Recorded Sex Assigned at Not on file Legal Sex Female 2:50 PM EST Gender Identity Not on file Sexual Orientation Not on file documented as of this encounter Plan of Treatment Not on file documented as of this encounter Results * US Lower Extremity Arteries (RUFUS) Physio Complete Unilat (09/29/2020 11:26 AM EDT) Anatomical Region Laterality Modality Ultrasound Narrative 10/08/2020 12:08 PM EDT See scanned document. us Filemon Kuo CV US VASCULAR Final Result documented in this encounter Visit Diagnoses Diagnosis Claudication in peripheral vascular disease Claudication in peripheral vascular disease Varicose veins of bilateral lower extremities with other complications documented in this encounter Care Teams Bead Cutter Relationship Specialty Start Date End Date Janice Cortes MD [address] [place] [address] PCP - General Internal Medicine 08/31/20 03/24/22 Laxmi Gutierrez MD [address] [place] [id number] PCP - General Internal Medicine 03/25/22 09/12/22 Mark Hill DO [address] [place] [address] PCP - General Family Medicine 09/13/22 documented as of this encounter Additional Source Comments The information contained in this document represents components of the legal health record. It is not the complete legal health record.[facility]
--- OUTSIDE RECORDS SUMMARY | 2025-03-06 18:58 | XMS_ITS | Clinical Summary ---
Author Organization [facility] Address [address] [place] [address] Phone Care Team Providers Care Senior Sales Representative Name Role Phone Mark Hill DO Primary Care Provider [phone] Allergies Active Allergy Reactions Criticality Noted Date Comments Digoxin 08/05/2022 Lisinopril 08/05/2022 Simvastatin Other (See Comments) 08/05/2022 Medications ferrous sulfate 325 mg (65 mg cahuilla iron) tablet Take 325 mg by mouth daily with breakfast. Active dilTIAZem (TIAZAC) 120 MG 24 hr capsule Take 120 mg by mouth 2 (two) times a day. Active levothyroxine (SYNTHROID, LEVOTHROID) 75 MCG tablet Take 75 mcg by mouth every morning. Active loratadine (CLARITIN) 10 mg tablet Take 10 mg by mouth as needed. Active midodrine (PROAMATINE) 5 MG tablet Take 5 mg by mouth 3 (three) times a day. Active montelukast (SINGULAIR) 10 mg tablet Take 10 mg by mouth nightly at bedtime. Active omeprazole (PRILOSEC) 20 MG capsule Take 20 mg by mouth daily. Active cholecalciferol (VITAMIN D3) 2,000 unit capsule Take by mouth daily. Active furosemide (LASIX) 40 MG tablet Take 120 mg by mouth 2 (two) times a day. 60mg in AM 60 mg in PM per pt Active warfarin (COUMADIN) 5 MG tablet Take 5 mg by mouth daily. Active XOLAIR 150 mg injection Inject 150 mg under the skin 2 (two) times a week. 08/23/19 22 Active amiodarone (PACERONE) 200 MG tabletIndication s:Persistent atrial fibrillation Take 1 tablet (200 mg total) by mouth daily. 90 tablet 3 10/01/19 22 Active Additional Information Patient not taking.Reported on 02/01/2023 furosemide (LASIX) 20 MG tablet Take 20 mg by mouth daily. Tablet to be taken with 40 mg tablet-60mg QD 04/04/20 22 Active tiotropium bromide (SPIRIVA RESPIMAT) 1.25 mcg/actuation Mist as directed. Active GAVILYTE-G 236-22.74-6.74 -5.86 gram solution 12/02/19 23 Active glipiZIDE (GLUCOTROL XL) 2.5 MG 24 hr tablet Take 1 tablet by mouth. Active fluticasone propion-salmeter oL (ADVAIR DISKUS) 500-50 mcg/dose DISKUS See administration instructions Active enoxaparin (LOVENOX) 80 mg/0.8 mL Syrg subcutaneous injection syringe 11/01/19 23 Active digoxin (LANOXIN) 125 mcg tablet Take 1 tablet by mouth. Active bisacodyl (DULCOLAX) 5 mg EC tablet 12/02/19 23 Active ammonium lactate (LAC-HYDRIN) 12 % lotion 12/20/19 23 Active VENTOLIN HFA 90 mcg/actuation inhaler 01/28/20 23 Active albuterol 5 mg/mL (0.5%) nebulizer solution as directed. Active acetaminophen (TYLENOL) 500 MG tablet 07/24/19 24 Active cyanocobalamin, vitamin B-12, 1000 MCG tablet 05/23/20 23 Active neomycin-polymyx in B-dexAMETHasone (MAXITROL) 3.5mg/mL-10,000 unit/mL-0.1 % ophthalmic suspension 08/01/19 24 Active peg-electrolyte soln (NULYTELY) 420 gram SolR 06/05/20 23 Active Active Problems Problem Noted Date Diagnosed Date Shortness of breath 08/30/2021 Assessment & Plan (08/07/2023 11:23 AM EST): Not related to her mild to moderate aortic and mitral regurgitation this is chronic in the setting of normal LV function. Assessment & Plan (09/24/2021 7:56 AM EDT): Patient will be following up with Dr. Florentino on 10/05/2021. Her present illness is quite complicated and multifactorial. When I met her I was following up with her regarding the results of lower extremity studies that Crissy had ordered for her post vein ablation by Dr. Florentino. However, when I met her she had recently been hospitalized and at the time I was under the impression she was hospitalized for acute asthma exacerbation and lower extremity cellulitis. However, based on the records I got today from [facility] which were not not available prior to this the patient has been admitted several times for lower extremity cellulitis but also for congestive heart failure. She was also started on amiodarone at [facility] for atrial fibrillation for which neither her nor her family are aware of her having previously to that. However, the patient has been on Coumadin therapy as well and it is unclear where the gaps in her medical care occurred. We had been seeing her for vascular issues up until her last visit with me where it seemed as though she has other cardiac complaints as well. The goal is to sort out her cardiac regimen and establish a new maintenance plan so that she can be followed routinely for her appropriate cardiac issues. Assessment & Plan (08/30/2021 1:40 PM EST): Patient is reporting residual shortness of breath. States that things have been much improved since she has been treated for asthma exacerbation. However she does have some component of shortness of breath that remains and her son reports that she does appear that she will get some difficulty with activity as well. - consider CAD. Patient has no history of coronary artery disease. However, she does have a history of type 2 diabetes which is coronary artery disease equivalent. I will get a lipid panel profile to assess for her cholesterol level. I will also consider a pharmacologic stress test. However, patient has a recent history of asthma exacerbation and this should be taken into consideration before proceeding with this test. She certainly cannot do a treadmill stress test as I do not see her achieving MPHR with this. Patient denies any chest pain or symptoms concerning for angina at this time. Atrial fibrillation 05/12/2021 Assessment & Plan (02/01/2023 11:10 AM EDT): All normal sinus rhythm on amiodarone Assessment & Plan (12/02/2022 9:50 AM EDT): Rate controlled asymptomatic and on oral anticoagulation Assessment & Plan (01/07/2022 12:21 PM EDT): Normal sinus rhythm on amiodarone along with oral anticoagulation Assessment & Plan (08/30/2021 1:27 PM EST): Rate controlled on current cardiac regimen. No indication to change therapy today. We will reassess EKGs at follow-up in 2 to 3 weeks for changes secondary to her amiodarone regimen. Assessment & Plan (05/12/2021 11:41 AM EST): Patient's history regarding atrial fibrillation is unclear, it is not documented in our system prior to today. Patient and son are difficult historians. Regardless, she is on appropriate medical therapy at this time and reports no concerning symptoms. Continue diltiazem and warfarin. Claudication in peripheral vascular disease 08/25 Assessment & Plan (01/25/2021 11:14 AM EDT): An arterial study was done showing no obstructive arterial disease making her ulcerations all due to venous disease Assessment & Plan (09/14/2020 12:09 PM EDT): More than likely she will end up with venous disease not arterial disease but when treating an ulceration we have to check for arterial disease Varicose veins of bilateral lower extremities with other complications 09/14/2020 Assessment & Plan (08/07/2023 11:22 AM EST): She does not have active venous disease she had good treatment of all of her veins in the past she does go to a wound clinic and does have skin ulcerations which we are treating Assessment & Plan (02/01/2023 11:09 AM EDT): As mentioned this patient has venous disease that is well treated and her current ulceration is definitely getting better after going to the wound clinic we are now sending her to dermatology. I will follow-up with her in 6 months time Assessment & Plan (12/02/2022 9:50 AM EDT): This patient as above has wounds in the right lower extremity that again to be complicated and difficult to treat she has lymphoma this may be lymphedema and a complication of it but after reading infectious diseases notes do not feel that this is a bacterial infection. We are going to get an expedited appointment at the [facility] wound care center Assessment & Plan (01/07/2022 12:20 PM EDT): As mentioned she probably has cellulitis here we gave her some antibiotics we will see her in close follow-up and we will repeat the lower extremity venous reflux study. Assessment & Plan (08/30/2021 1:39 PM EST): Successful vein ablation on the right with Dr. Florentino. 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 However, there does not seem to be a significant improvement in patient's lower extremity edema. She is currently edematous from her ankles all the way to above her knees bilaterally in addition to extremity edema of the upper right extremity and noticeably facial swelling in the eyelids more pronounced on the right. I do suspect that there may be some lymphedema issues and will collect some blood work to evaluate for other issues that can cause lower extremity edema and if this rules him out I will make a referral to the lymphedema clinic. I do not suspect that this is a heart failure issue however, I am not sure what patient's volume status is at baseline as we have no records from her hospitalization to review nor do we have any current labs in [facility] to correlate to this. Patient will have these labs drawn just prior to her next follow-up in the office which is in 2 to 3 weeks. - consider congestive heart failure. Patient has a recent echocardiogram as of December 2020 which showed normal EF. Patient reports no improvement of symptoms of shortness of breath with use of diuretics whether it is 80 mg or 40 mg there is no improvement in her symptoms with this. - consider low albumin. TSH studies. Assessment & Plan (05/12/2021 11:40 AM EST): Will obtain records from [facility], where son believes patient had ultrasounds done while she was admitted for cellulitis. Ordered RLE venous duplex and will have patient scheduled for this in the interim. Assessment & Plan (01/25/2021 11:14 AM EDT): As above we are going to perform a right proximal great saphenous vein ablation with laser catheter in [place] I explained risk benefits and alternatives to her regarding this Assessment & Plan (09/14/2020 12:09 PM EDT): As mentioned she is a CEAP class V patient more than likely she will need a vein ablation but I need to see the anatomy first I have ordered her arterial and venous studies I will see her thereafter in follow-up. Benign essential hypertension 09/14/2020 Assessment & Plan (02/01/2023 11:09 AM EDT): Well-controlled at this time. Assessment & Plan (12/02/2022 9:50 AM EDT): Controlled at this time Assessment & Plan (01/07/2022 12:20 PM EDT): Well-controlled at this time. Assessment & Plan (08/30/2021 1:28 PM EST): Blood pressure is controlled on current cardiac regimen. I will keep a close eye on this as her blood pressure is 96/60 today. We will see her back in a few short weeks to reassess. Assessment & Plan (05/12/2021 11:39 AM EST): BP well controlled in office today. Continue current medications. We reviewed the importance of heart healthy diet. Assessment & Plan (01/25/2021 11:14 AM EDT): Controlled at this time Assessment & Plan (09/14/2020 12:09 PM EDT): I have ordered an echo for this patient but have really ordered the echo for shortness of breath Diabetes 09/14/2020 Assessment & Plan (08/07/2023 11:23 AM EST): A1c should be less than 7 and LDL less than 70 Assessment & Plan (12/02/2022 9:50 AM EDT): Diabetes is again going to complicate this issue and should be less than 7 hemoglobin A1c Assessment & Plan (01/07/2022 12:21 PM EDT): A1c should be less than 7 and LDL less than 70 Assessment & Plan (01/25/2021 11:14 AM EDT): Obviously this is a complicating factor A1c goal should be less than 7 by the guidelines Immunizations Immunization Administration Dates Next Due COVID-19 (Pre-04/17) Moderna Vaccine, mRNA, PF 09/22/2020,08/25/2020 INFLUENZA, SPLIT VIRUS, TRIV ALENT W/ PRESERVATIVE IM 03/31/2014,04/01/2013 Influenza High-Dose Trivalen t Preservative Free IM 04/12/2016,03/05/2015 Influenza Quadrivalent MDCK Preservative Free IM 05/29/2018 Influenza Split (Incl. Purif ied Surface Antigen) 04/02/2012 Pneumococcal conjugate PCV13 05/29/2018 Pneumococcal polysaccharide PPSV23 10/06/2016,,10/04/2006 Td (adult),2 Lf Tetanus Toxo id, PF, Adsorbed 10/04/2006 Family History Medical History Relation Comments Heart disease Paternal Aunt Relation Status Comments Paternal Aunt Social History Tobacco Use Types Packs/Day Years Used Date Smoking Tobacco: Never Smokeless Tobacco: Never Education Answer Date Recorded Are you interested in more education? Not on yessy e 10/21/2022 Are you concerned about learning? Not on file 10/21/2022 No 10/21/2022 No 10/21/2022 Digital Access Answer Date Recorded No 11/22/2022 No 11/22/2022 Reliable internet access at home? Not on file 11/22/2022 Device with a working camera? Not on file Comments Unknown Sex and Gender Information Value Date Recorded Sex Assigned at Not on file Legal Sex Female 2:50 PM EST Gender Identity Not on file Sexual Orientation Not on file Last Filed Vital Signs Vital Sign Reading Time Taken Comments Blood Pressure 116/62 08/07/2023 10:34 AM EST Pulse 72 08/07/2023 10:34 AM EST Temperature - - Respiratory Rate - - Oxygen Saturation 97% 08/07/2023 10:34 AM EST Inhaled Oxygen Concentration - - Weight 84.5 kg (186 lb 3.2 oz) 08/07/2023 10:34 AM EST Height 160 cm (5' 2.99 ) 08/07/2023 10:34 AM EST Body Mass Index 32.99 08/07/2023 10:34 AM EST Plan of Treatment Health Maintenance Due Date Last Done Comments ALT LEVEL (ALANINE AMINOTRANSFERASE) 1940 HEMOGLOBIN A1C 1940 POTASSIUM LEVEL 1940 TSH LEVEL 1940 DEPRESSION SCREENING 1952 LIPID PANEL 1958 ZOSTER VACCINES (1 of 2) 1990 OSTEOPOROSIS SCREENING INITIAL (ONE-TIME) 2005 RSV VACCINE (1 - 1-dose 75+ series) 2015 Adult Td,Tdap Booster 10/04/2016 10/04/2006 DIABETIC EYE EXAM 09/14/2020 BLOOD PRESSURE 02/05/2024 08/07/2023 URINE MICROALBUMIN/CREATININE RATIO 06/16/2024 06/16/2023 INFLUENZA VACCINE (#1) 2025 8, 04/12/2016, 03/05/2015, Additional history exists COVID-19 VACCINE ( season) 2025 09/22/2020, 08/25/2020 PNEUMOCOCCAL VACCINES (50+ years) Completed 05/29/2018, 10/06/2016, 10/02/2012, Additional history exists HEPATITIS A VACCINES Aged Out No long er eligible based on patient's age to complete this topic HIB VACCINES Aged Out No longer eligi ble based on patient's age to complete this topic MENINGOCOCCAL VACCINES (ACWY) Aged Out No longer eligible based on patient's age to complete this topic MENINGOCOCCAL VACCINES (B) Aged Out N o longer eligible based on patient's age to complete this topic Medical Devices Not on file Insurance MEDICARE REPLACEMENT MEDICARE REPLACEMENT MEDICARE REPLACEMENT MEDICARE REPLACEMENT MEDICARE REPLACEMENT MEDICARE REPLACEMENT MEDICARE REPLACEMENT Care Teams Senior Sales Representative Relationship Specialty Start Date End Date Mark Hill DO [address] [place] [id number] PCP - General Family Medicine 09/13/22 Additional Source Comments The information contained in this document represents components of the legal health record. It is not the complete legal health record.[facility]
--- OUTSIDE RECORDS SUMMARY | 2025-03-06 18:58 | XMS_ITS | Encounter Summary ---
Author Organization [facility] Address [address] [place] [address] Phone Care Team Providers Care Core Composer Feeder Name Role Phone Laxmi Gutierrez MD Primary Care Provider [phone] Mark Hill DO Primary Care Provider [phone] Encounter Details Date Type Department Care Team (Late st Contact Info) Description 04/08/2022 Procedure Pass Echo Lab [place] [place] [address] Social History Tobacco Use Types Packs/Day Years Used Date Smoking Tobacco: Never Smokeless Tobacco: Never Comments Unknown Sex and Gender Information Value Date Recorded Sex Assigned at Not on file Legal Sex Female 2:50 PM EST Gender Identity Not on file Sexual Orientation Not on file documented as of this encounter Plan of Treatment Not on file documented as of this encounter Visit Diagnoses Not on filedocumented in this encounter Care Teams Core Composer Feeder Relationship Specialty Start Date End Date Laxmi Gutierrez MD [address] [place] [id number] PCP - General Internal Medicine 03/25/22 09/12/22 Mark Hill DO [address] [place] [id number] PCP - General Family Medicine 09/13/22 documented as of this encounter Additional Source Comments The information contained in this document represents components of the legal health record. It is not the complete legal health record.[facility]
--- OUTSIDE RECORDS SUMMARY | 2025-03-06 18:58 | XMS_ITS | Encounter Summary ---
Author Organization [facility] Address [address] [place] [address] Phone Care Team Providers Care Genetic Counselor Name Role Phone Laxmi Gutierrez MD Primary Care Provider [phone] Mark Hill DO Primary Care Provider [phone] Reason for Referral * - Closed Specialty Diagnoses / Procedures Referred By Colten gilliland Referred To Contact Radiology Diagnoses Localized edema Procedures US Lower Extremity Veins Duplex (Right) US Lower Extremity Veins Reflux Evaluation Duplex Complete (Bilateral) Filemon Florentino DO Phone: tel: fax: [email or web address] Referral ID Status Reason Start Date Expiration Date Visits Re quested Visits Authorized [id number] Closed 01/07/2022 01/07/2023 1 1 Encounter Details Date Type Department Care Team (Late st Contact Info) Description 03/25/2022 Ancillary Orders [facility] [address] [facility] 3rd Floor, [address] [place] [address] Filemon Florentino DO [address] [facility] [address] [place], [place] [id number] [email or web address] Localized edema Social History Tobacco Use Types Packs/Day [...] this encounter Results * US Lower Extremity Veins Duplex (Right) (03/25/2022 2:05 PM EDT) Anatomical Region Laterality Modality Hip Right, Thigh Right, Knee Right, Leg Right, Ankle Right, Foot Right Ultrasound Narrative 03/28/2022 10:42 AM EDT See scanned documents. Procedure Note Tramaine Cabral MD - 03/28/2022 See scanned documents. us Filemon Florentino DO CV US VASCULAR Final Result documented in this encounter Visit Diagnoses Diagnosis Localized edema Edema Localized edema Edema documented in this encounter Care Teams Genetic Counselor Relationship Specialty Start Date End Date Laxmi Gutierrez MD [address] [place] [id number] PCP - General Internal Medicine 03/25/22 09/12/22 Mark Hill DO [address] [place] [address] PCP - General Family Medicine 09/13/22 documented as of this encounter Additional Source Comments The information contained in this document represents components of the legal health record. It is not the complete legal health record.[facility]
--- OUTSIDE RECORDS SUMMARY | 2025-03-06 18:58 | XMS_ITS | Patient Health Record ---
Author Organization [facility] Address [address] [place] [address] Care Team Providers Care Water Vessel Captain Name Role Phone Sandra Meeks MD, Rishi Primary Care Provide Godfrey Drummond Jr Unavailable Reason For Referral No Information Medications Medication SIG (Take, Route, Frequency, Duration) Notes Start Date End Date Status Atelvia 35mg Active dilTIAZem HCl 120mg Active Singulair 10mg 06/26/2024 06/26/2024 Act sarkis Oyster Shell Calcium 500 + D 500mg Active Coumadin 25mg Active Loratadine 10mg Acti ve Levothyroxine Sodium 50mg Active Penicillin V Potassium 500mg Active Furosemide 20mg Acti ve Advair Diskus 500/50 Active Social History Tobacco Use: Social History Observation Description Date Details (start date - stop date) Never Smoker NA - NA Tobacco Use/Smoking Question Answer Notes Patient is a nonsmoker Alcohol Screen Question Answer Notes Did you have a drink containing alcohol in the p ast year? No Points 0 Interpretation Negative Problems Problem Type SNOMED Code ICD Code Onset Dates Problem Status W/U Status Risk Notes Problem Imaging of gastrointestinal tract abnormal (417572975) Nonspecific abnormal findings on radiological and other examination of gastrointestinal tract (793.4) Active confirmed Plan Of Treatment Future Test Test Name Order Date COLONOSCOPY 08/03/2011 Insurance Providers Payer Name Payer Address Payer Phone Subscriber Number Group Number Insured Name Patient Relationship to Insured Coverage Start Date Coverage End Date [employer] [facility] [address] [place] [phone] [id number] ARTURO SALDIVAR Self - patient is the insured Medical (General) History Medical History History ICD Code cellulitis hypertension atrial fibrillation peripheral vascular disease hypothyroidism nephrolithiasis Surgical History Surgery Date(Month/Year) D&C
--- OUTSIDE RECORDS SUMMARY | 2025-03-06 18:58 | XMS_ITS | Encounter Summary ---
Author Organization [facility] Address [address] [facility] [address] [place] [address] Phone Care Team Providers Care Wood Cabinetmaker Name Role Phone Janice Cortes MD Primary Care Provide r Laxmi Gutierrez MD Primary Care Provider [phone] Mark iHll DO Primary Care Provider [phone] Encounter Details Date Type Department Care Team (Late st Contact Info) Description 09/14/2020 Procedure Pass Echo Lab [place] [place] [address] Social History Tobacco Use Types Packs/Day Years [...] filedocumented in this encounter Care Teams Wood Cabinetmaker Relationship Specialty Start Date End Date Janice Cortes MD [address] [place] [address] PCP - General Internal Medicine 08/31/20 03/24/22 Laxmi Gutierrez MD [address] [place] [id number] PCP - General Internal Medicine 03/25/22 09/12/22 Mark Hill DO [address] [place] [id number] PCP - General Family Medicine 09/13/22 documented as of this encounter Additional Source Comments The information contained in this document represents components of the legal health record. It is not the complete legal health record.[facility]
--- OUTSIDE RECORDS SUMMARY | 2025-03-06 18:58 | XMS_ITS | Clinical Summary ---
Author Organization [employer] [facility] Address [address] [place] [address] Care Team Providers Care Artificial Log Machine Operator Name Role Phone Rishi Lion MD Primary Care Provide r Allergies Active Allergy Reactions Criticality Noted Date Comments [id number]-[id number]-Flacoyhcwsytj 3 Digoxin 08/05/2022 Pt an sson unsure [...] 58 04/25/2024 12:54 PM EDT Temperature 36.6 C (97.9 F) 04/25/2024 12:54 PM EDT Respiratory Rate 18 04/25/2024 12:54 PM EDT [...] 1-dose 75+ series) 2015 Influenza Vaccine (#1) 2025 2, 04/11/2022, 03/15/2021, Additional history exists Pneumococcal Vaccine Completed 05/29/2018, 10/06/2016, 10/02/2012, Additional history exists Hepatitis B Vaccines Aged Out No long er eligible based on patient's age to complete this topic RSV Ped < 20 months Aged Out No longe r eligible based on patient's age to complete this topic Care Teams Artificial Log Machine Operator Relationship Specialty Start Date End Date Rishi Lion MD [address] [facility] [place], [place] [id number] PCP - General Internal Medicine 08/05/22
--- OUTSIDE RECORDS SUMMARY | 2025-03-06 18:58 | XMS_ITS | Encounter Summary ---
Author Organization [facility] Address [address] [facility] [address] [place] [address] Phone Care Team Providers Care Core Shaper Top Name Role Phone Amaya Lewis MD Primary Care Provider [phone] Reason for Visit * Reason Comments Med Refill Encounter Details Date Type Department Care Team (Late st Contact Info) Description 08/30/2023 Refill [facility] [address] [place] [id number] Jose Hardy MD [address] [facility] [address] [place] [address] Social History Tobacco Use Types [...] filedocumented in this encounter Care Teams Core Shaper Top Relationship Specialty Start Date End Date Amaya Lewis MD [address] [place], [place] PCP - General Internal Medicine 05/20/24 documented as of this encounter
[2025-03-06 19:01] LABS: Hematocrit 33.6 % (37.0-47.0); Hemoglobin 10.4 g/dl (12.0-16.0); Imm Gran Abs Auto 0.12 X10*3/uL (0.00-0.03); Imm Gran Pct Auto 0.5 % (0.0-0.4); Lymphocytes Absolute Auto 0.9 X10*3/uL (1.2-4.9); MANUAL DIFF FLAG SCAN; Mean Corpuscular HGB Conc 31.0 g/dl (31.0-35.0); Mean Corpuscular Hemoglobin 28.3 pg (27.0-33.0); Mean Corpuscular Volume 91.3 fL (80.0-98.0); NRBC Abs Auto 0.000 X10*3/uL (0.0-0.012); NRBC Pct Auto 0.0 /100WBC (0.0-0.2); Platelet Count 230 X10*3/uL (160-400); Red Blood Count 3.68 X10*6/uL (4.20-5.50); SCAN SMEAR FLAG 1; White Blood Count 22.8 X10*3/uL (4.8-10.8)
[2025-03-06 19:06] LABS: OBS Int Ctl Valid YES; OBS1 NEGATIVE (NEGATIVE)
--- NOTE | 2025-03-06 19:35 | PC.NURSE ---
Addendum entered by Reena Colbert RN 03/06/25 23:35: gave nurse to nurse report to Efren BURGESS at [facility] ICU Addendum entered by Reena Colbert RN 03/06/25 22:30: pt being transferred to [facility] via EMS, gave report to EMS, unable to call over nurse to nurse report due to no nurse being avaible at the time, asked to call back at 2300 when a nurse should be available. Pts sons aware of transfer. Addendum entered by Reena Colbert RN 03/06/25 21:34: due to pts continues hypotension pt continued on levophed drip per Provider, plan of care ongoing. Addendum entered by Reena Colbert RN 03/06/25 20:42: pts bp noted to drop to 81/42 per provider restart levophed drip. Addendum entered by Reena Colbert RN 03/06/25 20:14: paused levophed drip as pts map is above 65, provider aware. restarting azithromycin. Addendum entered by Reena Colbert RN 03/06/25 19:50: azithromycin infusion paused at this time to begin levophed infusion due to limited IV access and IV pumps, provider aware. Addendum entered by Reena Colbert RN 03/06/25 19:38: azithromycin and albumin noted to be infusing, pt only has 2 lines. will start zosyn and vanco once infusions are complete. provider aware. Original Note: assumed care for pt at this time. pt awake and alert in stretcher watching tv and speaking with family members bedside. pt in no notable distress and not reporting any pain at this time. updated pt and family members on plan of care. medicated pt per aug. call dempsey within pts reach. plan of care ongoing
--- NOTE | 2025-03-06 21:15 | ED.GENADULT ---
HPI - General Adult General Chief complaint: General Medical Stated complaint: VNA STS LOW BP, 90/50 78/50 PER EMS Time Seen by Provider: 03/06/25 15:14 Source: patient, EMS, RN notes reviewed, old records reviewed and historic interpreter Mode of arrival: EMS Limitations: language barrier Related Data Home Medications ?Medication ?Instructions ?Recorded ?Confirmed cholecalciferol (vitamin D3) 50 50 mcg PO DAILY 02/04/21 10/08/24 mcg (2,000 unit) capsule (Vitamin D3) loratadine 10 mg tablet 10 mg PO DAILY 02/04/21 10/08/24 omeprazole 20 mg capsule,delayed 20 mg PO DAILY@0630 02/04/21 10/08/24 release fluticasone fur. 100 mcg-umeclid 1 puff inhalation DAILY 05/03/21 10/08/24 62.5 mcg-vilant 25 mcg inhalat.powder (Trelegy Ellipta) albuterol sulfate 2.5 mg/3 mL 2.5 mg inhalation Q4H PRN 08/09/21 10/08/24 (0.083 %) solution for nebulization Shortness Of Breath montelukast 10 mg tablet 1 tab PO DAILY 08/09/21 10/08/24 cyanocobalamin (vitamin B-12) 1,000 mcg PO DAILY 05/29/24 10/08/24 1,000 mcg tablet diltiazem HCl 240 mg 240 mg PO DAILY 05/29/24 10/08/24 capsule,extended release 24 hr levothyroxine 75 mcg tablet 75 mcg PO DAILY@0600 05/29/24 10/08/24 torsemide 20 mg tablet 40 mg PO BID 08/26/24 10/08/24 warfarin 5 mg tablet 2.5 mg PO DAILY@1800 08/26/24 10/08/24 Previous Rx's ?Medication ?Instructions ?Recorded cefuroxime axetil 500 mg tablet 500 mg PO BID #8 tabs 10/11/24 doxycycline monohydrate 100 mg 100 mg PO BID #8 tabs 10/11/24 tablet prednisone 20 mg tablet 40 mg (2 x 20 mg) PO DAILY #6 tabs 10/11/24 Allergies Allergy/AdvReac Type Severity Reaction Status Date / Time lisinopril (LISINOPRIL) Allergy Unknown UNKNOWN Verified 03/06/25 15:14 simvastatin (SIMVASTATIN) Allergy Unknown UNKNOWN Verified 03/06/25 15:14 [facility] Past Medical History Medical History (Updated 03/06/25 @ 22:23 by Viry Paris DO) EMERY (obstructive sleep apnea) Generalized weakness Stage II decubitus ulcer Conjunctivitis Pneumonia Hypotension JEN (acute kidney injury) Tricuspid valve regurgitation Pulmonary hypertension Acute on chronic right heart failure Idiopathic hypotension Sepsis Cellulitis of right leg Lymphedema Non-healing wound of right lower extremity Venous stasis dermatitis of right lower extremity CHF (congestive heart failure) Hypothyroid Afib Asthma HTN (hypertension) Surgical History S/P hip replacement Family History Family History Mother Gastric cancer Social History Social History Household Members: None Housing: Apartment Do you presently have visiting nurse or other home services: Yes Alcohol intake: never Comment: sleeping in recliner Patient Tobacco Use Status: Never used Tobacco Smoked in Last 30 Days: No Second Hand Smoke Exposure: No Use of substances other than those prescribed or required for medical reasons: No Advance Directives: Yes Advance Directives on File: Yes Advance Directives Date on File: 02/05/21 service: No Current occupational status: disabled Physical Exam ED Vital Signs: Vital Signs - 24 hr 03/06/25 15:05 03/06/25 15:32 03/06/25 16:51 Temperature 97.8 F 96.8 F Pulse Rate 120 H 117 H Respiratory Rate 18 18 Blood Pressure 85/55 L 92/47 L Pulse Oximetry 97 95 Oxygen Delivery Method Room Air Room Air 03/06/25 18:23 03/06/25 19:35 03/06/25 19:56 Temperature 97.5 F Pulse Rate 117 H 119 H 110 H Respiratory Rate 15 20 Blood Pressure 87/44 L 79/53 L 80/54 L Pulse Oximetry 96 95 Oxygen Delivery Method Room Air Room Air 03/06/25 20:01 03/06/25 20:06 03/06/25 20:18 Temperature Pulse Rate 116 H 102 H 107 H Respiratory Rate 17 Blood Pressure 90/56 L 102/61 107/78 Pulse Oximetry 100 Oxygen Delivery Method Room Air 03/06/25 20:42 03/06/25 20:47 03/06/25 20:52 Temperature Pulse Rate 107 H 109 H 101 H Respiratory Rate Blood Pressure 81/42 L 87/51 L 89/58 L Pulse Oximetry Oxygen Delivery Method 03/06/25 20:57 03/06/25 21:02 03/06/25 21:30 Temperature Pulse Rate 102 H 107 H 104 H Respiratory Rate Blood Pressure 90/55 L 93/60 91/51 L Pulse Oximetry Oxygen Delivery Method 03/06/25 21:35 03/06/25 21:40 03/06/25 21:45 Temperature Pulse Rate 114 H 108 H 105 H Respiratory Rate Blood Pressure 92/59 L 94/61 97/55 L Pulse Oximetry Oxygen Delivery Method 03/06/25 21:50 03/06/25 21:55 03/06/25 22:00 Temperature Pulse Rate 95 104 H 110 H Respiratory Rate Blood Pressure 90/59 L 94/56 L 99/60 Pulse Oximetry Oxygen Delivery Method 03/06/25 22:05 03/06/25 22:07 03/06/25 22:10 Temperature 97.8 F Pulse Rate 113 H 117 H 111 H Respiratory Rate 16 Blood Pressure 103/65 103/65 93/61 Pulse Oximetry 98 Oxygen Delivery Method Room Air 03/06/25 22:15 Temperature Pulse Rate 109 H Respiratory Rate Blood Pressure 93/62 Pulse Oximetry Oxygen Delivery Method BMI result Body Mass Index 26.6 Medications Administered Generic Name Dose Route Start Last Admin Trade Name Freq PRN Reason Stop Dose Admin Norepinephrine Bitartrate 8 mg in 250 mls @ 0 mls/hr 03/06/25 19:15 03/06/25 22:15 Levophed IVCONT 0.05 mcg/kg/min .Q0M SEBASTIAN 6.38 mls/hr Protocol Titration Per Protocol Sodium Chloride 1,000 mls @ 999 mls/hr 03/06/25 21:30 03/06/25 21:38 Ns IV 03/06/25 22:30 999 mls/hr .Q1H1M SEBASTIAN Administration Discontinued Medications Generic Name Dose Route Start Last Admin Trade Name Freq PRN Reason Stop Dose Admin Ceftriaxone Sodium 1 gm 03/06/25 17:39 03/06/25 18:41 Ceftriaxone Sodium 1 Gm Vial IVPUSH 03/06/25 17:40 1 gm ONCE ONE Administration Diltiazem HCl 120 mg 03/06/25 17:09 03/06/25 17:14 Diltiazem Hcl Cd 120 Mg Cap.Er.Deg PO 03/06/25 17:10 120 mg ONCE ONE Administration Protocol Hydrocortisone Sodium Succinate 100 mg 03/06/25 18:02 03/06/25 18:46 Hydrocortisone Sod Succ/Pf 100 Mg Vial IVPUSH 03/06/25 18:03 100 mg ONCE ONE Administration Sodium Chloride 500 mls @ 999 mls/hr 03/06/25 15:30 03/06/25 16:34 Ns IV 03/06/25 16:00 Infused .Q31M SEBASTIAN Infusion Albumin Human 50 mls @ 100 mls/hr 03/06/25 18:00 03/06/25 20:43 Kedbumin 25 % IV 03/06/25 19:59 Infused Q30M SEBASTIAN Infusion Sodium Chloride 500 mls @ 999 mls/hr 03/06/25 18:00 03/06/25 18:51 Ns IV 03/06/25 18:30 Not Given .Q31M SEBASTIAN Azithromycin 500 mg/ Sodium 250 mls @ 125 mls/hr 03/06/25 17:59 03/06/25 20:54 Chloride IV 03/06/25 19:58 Infused ONCE ONE Infusion Piperacillin Sod/Tazobactam 100 mls @ 200 mls/hr 03/06/25 19:12 03/06/25 21:16 Sod 4.5 gm/ Sodium Chloride IV 03/06/25 19:41 Infused ONCE ONE Infusion Vancomycin HCl 1,500 mg/ 500 mls @ 333.333 mls/hr 03/06/25 19:47 03/06/25 21:19 Sodium Chloride IV 03/06/25 21:16 333.33 mls/hr ONCE ONE Administration Ondansetron HCl 4 mg 03/06/25 20:05 03/06/25 21:20 Ondansetron Hcl 4 Mg/2 Ml Vial IVPUSH 03/06/25 20:06 Not Given ONCE ONE Pantoprazole Sodium 80 mg 03/06/25 19:11 03/06/25 19:27 Pantoprazole Sodium 40 Mg/10 Ml Vial IVPUSH 03/06/25 19:12 80 mg ONCE ONE Administration Phytonadione 5 mg 03/06/25 16:44 03/06/25 17:05 Phytonadione (Vit K1) Oral 10 Mg/Ml Ampul PO 03/06/25 16:45 5 mg ONCE ONE Administration Medical Decision Making Medical Decision Making [facility] Narrative: Received sign-out from Amy SANTOS, My impression this is a 84-year-old female that is seeing you septic shock at this time Levophed initiated for the patient. She does have a initial white count of 27. Second CBC was drawn she has a white count of 22.8. Lactic acid is not elevated inpatient, UA is pending at this time. Patient did have a bowel movement here. Appears to be forearm however dark in nature. IV Protonix given. The patient did have a elevated INR of 7.6. CT imaging of the chest shows mild bronchial wall thickening, and signs of possible ground-glass opacity. CT abdomen and pelvis shows sign of cholelithiasis with mild gallbladder distention. There was no gallbladder wall thickening or pericholecystic. Right upper quadrant ultrasound shows gallstones and borderline gallbladder wall thickening at 3 mm. I did reassess patient's right upper quadrant. No sign of tenderness on exam. Patient's remains on Levophed. We are giving her additional L IV fluid. Her heart rate is in the low 100s in AFib. I did attempt to transfer patient to [facility] however they do not have any ICU beds at this time. Unfortunately our ICU beds are full. Per family request I did reach out to [facility]. They do have an available ICU bed. Patient will be transferred to [facility]. Accepting doctor is Dr. Clemons Differential Diagnosis Differential Diagnoses: The differential diagnosis associated with the presentation includes Septic shock, hypovolemia, sepsis, UTI Lab Data 03/06/25 18:54 03/06/25 15:52 Labs: Lab Results 03/06/25 03/06/25 03/06/25 Range/Units 15:52 16:10 16:21 WBC 27.2 H (4.8-10.8) X10*3/uL RBC 3.42 L (4.20-5.50) X10*6/uL Hgb 9.7 L (12.0-16.0) g/dl Hct 31.5 L (37.0-47.0) % MCV 92.1 (80.0-98.0) fL MCH 28.4 (27.0-33.0) pg MCHC 30.8 L (31.0-35.0) g/dl RDW 14.4 (11.0-16.0) % Plt Count 263 D (160-400) X10*3/uL MPV 9.8 (9.4-12.3) fL Immature Gran % (Auto) 0.7 H (0.0-0.4) % Neut % (Auto) 94.3 H (45-73) % Lymph % (Auto) 3.3 L (20-40) % Cameron % (Auto) 1.4 L (2-11) % Eos % (Auto) 0.1 (0-4) % Baso % (Auto) 0.2 (0-2) % Lymph # (Auto) 0.9 L (1.2-4.9) X10*3/uL Cameron # (Auto) 0.4 (0.1-1.2) X10*3/uL Eos # (Auto) 0.0 (0.0-0.4) X10*3/uL Baso # (Auto) 0.1 (0.0-0.2) X10*3/uL Abs Immat Gran (auto) 0.18 H (0.00-0.03) X10*3/uL Absolute Neuts (auto) 25.7 H (2.0-8.3) x10*3/uL Absolute Nucleated RBC 0.000 (0.0-0.012) X10*3/uL Nucleated RBC % (auto) 0.0 (0.0-0.2) /100WBC Smear Tech's Comments VERIFIED PT 87.5 H D (10.9-12.4) SEC INR 7.6 H* D (0.9-1.1) Sodium 133 L (135-145) mmol/L Potassium 4.6 (3.3-5.1) mmol/L Chloride 101 (96-108) mmol/L Carbon Dioxide 23 (22-29) mmol/L Anion Gap 14 (12-20) BUN 55 H (9-16) mg/dL Creatinine 2.64 H (0.5-1.4) mg/dL Estim Creat Clear Calc 14.6 Estimated GFR 17 Random Glucose 78 (60-115) mg/dL Lactic Acid 1.8 (0.5-2.0) mmol/L Calcium 7.9 L (8.4-10.2) mg/dL Magnesium 1.9 (1.6-2.6) mg/dL Total Bilirubin 0.2 (0.0-1.0) mg/dL AST 21 (5-31) U/L ALT < 6 (0-31) U/L Alkaline Phosphatase 93 (39-117) U/L Troponin I High Sens < 2.7 D (<3.5-17.0) ng/L B-Natriuretic Peptide 255 H (<100) pg/mL Total Protein 7.3 (6.5-8.0) g/dL Albumin 2.3 L (3.5-5.0) g/dL Stool Occult Blood (NEGATIVE) COVID-19 (DAMARIS) Negative (Negative) COVID-19 Clin Com See Note Influenza Type A (ORACIO) Negative (Negative) Influenza Type B (ORACIO) Negative (Negative) Influenza A & B Note See Note 03/06/25 Range/Units 18:54 WBC 22.8 H (4.8-10.8) X10*3/uL RBC 3.68 L (4.20-5.50) X10*6/uL Hgb 10.4 L (12.0-16.0) g/dl Hct 33.6 L (37.0-47.0) % MCV 91.3 (80.0-98.0) fL MCH 28.3 (27.0-33.0) pg MCHC 31.0 (31.0-35.0) g/dl RDW 14.4 (11.0-16.0) % Plt Count 230 (160-400) X10*3/uL MPV 9.4 (9.4-12.3) fL Immature Gran % (Auto) 0.5 H (0.0-0.4) % Neut % (Auto) 93.2 H (45-73) % Lymph % (Auto) 3.9 L (20-40) % Cameron % (Auto) 2.0 (2-11) % Eos % (Auto) 0.2 (0-4) % Baso % (Auto) 0.2 (0-2) % Lymph # (Auto) 0.9 L (1.2-4.9) X10*3/uL Cameron # (Auto) 0.5 (0.1-1.2) X10*3/uL Eos # (Auto) 0.0 (0.0-0.4) X10*3/uL Baso # (Auto) 0.1 (0.0-0.2) X10*3/uL Abs Immat Gran (auto) 0.12 H (0.00-0.03) X10*3/uL Absolute Neuts (auto) 21.2 H (2.0-8.3) x10*3/uL Absolute Nucleated RBC 0.000 (0.0-0.012) X10*3/uL Nucleated RBC % (auto) 0.0 (0.0-0.2) /100WBC Smear Tech's Comments PT (10.9-12.4) SEC INR (0.9-1.1) Sodium (135-145) mmol/L Potassium (3.3-5.1) mmol/L Chloride (96-108) mmol/L Carbon Dioxide (22-29) mmol/L Anion Gap (12-20) BUN (9-16) mg/dL Creatinine (0.5-1.4) mg/dL Estim Creat Clear Calc Estimated GFR Random Glucose (60-115) mg/dL Lactic Acid (0.5-2.0) mmol/L Calcium (8.4-10.2) mg/dL Magnesium (1.6-2.6) mg/dL Total Bilirubin (0.0-1.0) mg/dL AST (5-31) U/L ALT (0-31) U/L Alkaline Phosphatase (39-117) U/L Troponin I High Sens (<3.5-17.0) ng/L B-Natriuretic Peptide (<100) pg/mL Total Protein (6.5-8.0) g/dL Albumin (3.5-5.0) g/dL Stool Occult Blood NEGATIVE (NEGATIVE) COVID-19 (DAMARIS) (Negative) COVID-19 Clin Com Influenza Type A (ORACIO) (Negative) Influenza Type B (ORACIO) (Negative) Influenza A & B Note Chronic Conditions CHF, COPD, Chronic leg wound Critical Care Time Critical Care Time Critical Care Time: Yes Total Critical Care Time: 75 Attestation: Time is exclusive of separately billable procedures. Time includes: direct patient care, patient reassessment, coordination of patient care, interpretation of data (laboratory data, pulse oximetry, arterial blood gases and chest xrays), review of patient's medical records, medical consultation and documentation of patient care. Procedures excluded from critical care time: central intravenous line placement and electrocardiography. Discharge Plan Discharge Clinical Impression: Septic shock Patient Disposition: [facility] Transfer Details: [facility] ICU Prescriptions: No Action omeprazole 20 mg capsule,delayed release(DR/EC) 20 mg PO DAILY@0630 loratadine 10 mg tablet 10 mg PO DAILY cholecalciferol (vitamin D3) [Vitamin D3] 50 mcg (2,000 unit) capsule 50 mcg PO DAILY Trelegy Ellipta 100-62.5-25 mcg blister with device 1 puff inhalation DAILY albuterol sulfate 2.5 mg /3 mL (0.083 %) solution for nebulization 2.5 mg inhalation Q4H PRN (Reason: Shortness Of Breath) montelukast 10 mg tablet 1 tab PO DAILY torsemide 20 mg tablet 40 mg PO BID warfarin 5 mg tablet 2.5 mg PO DAILY@1800 prednisone 20 mg Tablet 40 mg PO DAILY Qty: 6 0RF cefuroxime axetil 500 mg tablet 500 mg PO BID Qty: 8 0RF doxycycline monohydrate 100 mg tablet 100 mg PO BID Qty: 8 0RF diltiazem HCl 240 mg capsule,extended release 24hr 240 mg PO DAILY cyanocobalamin (vitamin B-12) 1,000 mcg tablet 1,000 mcg PO DAILY levothyroxine 75 mcg tablet 75 mcg PO DAILY@0600 Print Language: Bahamian
[2025-03-06 22:23] LABS: Appearance Urine Clear; Glucose Urine UA Negative (Negative); PH 5.5 (5.0-9.0); Specific Gravity - Urine 1.015 (1.005-1.025); UMIC TRIGGER UACC YES
== END 2025-03-06 23:35 | disposition short-term general hospital (02) ==
PROVIDERS: Emergency Medicine; Registered Nurse Emergency; Emergency Provider Student in an Organized Health Care Education/Training Program; PCP Student in an Organized Health Care Education/Training Program
DX: A41.9 Sepsis, unspecified organism (principal); R05.9 Cough, unspecified; R00.0 Tachycardia, unspecified; I95.9 Hypotension, unspecified; R19.7 Diarrhea, unspecified; R94.31 Abnormal electrocardiogram [ECG] [EKG]; R10.11 Right upper quadrant pain; R11.0 Nausea; R06.02 Shortness of breath; Z79.899 Other long term (current) drug therapy; Z11.52 Encounter for screening for COVID-19; Z03.818 Encounter for observation for suspected exposure to other biological agents ruled out
CPT/HCPCS: 71046; 71250; 74176; 76705; 80053; 81001; 82272; 83605; 83735; 83880; 84484; 85025; 85610; 87040; 87502; 87635; 93005; 96361; 96365; 96366; 96367; 96375; 99285; 99291; J0456; J0696; J1720; J2470; J2543; J3374; P9047

== ENCOUNTER → 2025-03-06 15:16 | Outpatient (BNV) | payer OTHER, SELFPAY | PROVIDERS: Emergency Provider Student in an Organized Health Care Education/Training Program; PCP Student in an Organized Health Care Education/Training Program; Visit Provider Internal Medicine Cardiovascular Disease | DX: I48.91 Unspecified atrial fibrillation (principal) | CPT/HCPCS: 93010 ==

== ENCOUNTER → 2025-03-06 15:16 | Outpatient (BNV) | payer OTHER, SELFPAY | PROVIDERS: Emergency Provider Emergency Medicine; PCP Student in an Organized Health Care Education/Training Program; Visit Provider Radiology Body Imaging | DX: K80.20 Calculus of gallbladder without cholecystitis without obstruction (principal); I51.7 Cardiomegaly; K80.00 Calculus of gallbladder with acute cholecystitis without obstruction; R00.0 Tachycardia, unspecified | CPT/HCPCS: 71046; 71250; 74176; 76705 ==